=== PATIENT | male | born 1965 | race Caucasian/White ===

== ENCOUNTER 2020-01-24 07:11 | Outpatient (REF) | payer OTHER, SELFPAY ==
[2020-01-24 07:40] LABS: Imm Gran Abs Auto 0.01 X10*3/uL (0.00-0.03); Imm Gran Pct Auto 0.3 % (0.0-0.4); PLT CLUMP 1; Red Blood Count 3.32 X10*6/uL (4.60-5.80); Red Cell Distribution Width 12.4 % (11.0-16.0); SCAN SMEAR FLAG 1
[2020-01-24 07:46] LABS: Prothrombin Time 12.2 SEC (10.8-13.0)
[2020-01-24 07:50] LABS: Basophils Absolute Auto 0.1 X10*3/uL (0.0-0.2); Basophils Percent Auto 1.5 % (0-2); Eosinophils Absolute Auto 0.1 X10*3/uL (0.0-0.4); Eosinophils Percent Auto 2.9 % (0-4); Hematocrit 28.4 % (42-52); Hemoglobin 10.5 g/dl (14.0-18.0); Lymphocytes Absolute Auto 0.7 X10*3/uL (1.2-4.9); Lymphocytes Percent Auto 21.3 % (20-40); Mean Corpuscular Hemoglobin 31.6 pg (27.0-33.0); Mean Corpuscular Volume 85.5 fL (80-98); Mean Platelet Volume 11.8 fL (9.4-12.4); Monocytes Absolute Auto 0.5 X10*3/uL (0.1-1.2); Monocytes Percent Auto 13.1 % (2-11); Neutrophils Absolute Auto 2.1 X10*3/uL (2.0-8.3); Neutrophils Percent Auto 60.9 % (45-73); Platelet Count 132 X10*3/uL (160-400); White Blood Count 3.4 X10*3/uL (4.8-10.8)
[2020-01-24 07:53] LABS: MANUAL DIFF FLAG NO
[2020-01-24 08:09] LABS: Alanine Aminotransferase 33 U/L (0-40); Albumin Level 4.4 g/dL (3.5-5.0); Alkaline Phosphatase 168 U/L (39-117); Anion Gap 11 (12-20); Aspartate Amino Transferase 15 U/L (5-37); Bilirubin Total 0.4 mg/dL (0.0-1.0); Blood Urea Nitrogen 31 mg/dL (9-16); Calcium 9.3 mg/dL (8.4-10.2); Carbon Dioxide 22 mmol/L (22-29); Chloride 109 mmol/L (96-108); Estimated Glomerular Filt Rate 52; Glucose Random 193 mg/dL (60-115); Magnesium 1.6 mg/dL (1.6-2.6); Phosphorus 4.6 mg/dL (2.7-4.5); Potassium 5.8 mmol/l (3.3-5.1); Sodium 136 mmol/L (135-145); Total Protein 6.2 g/dL (6.5-8.0)
[2020-01-25 08:36] LABS: Tacrolimus Prograf 7.9 mcg/L
== END 2020-01-24 07:12 | disposition home or self-care (01) ==
LOC: HO.LABR 07:11
PROVIDERS: PCP Internal Medicine; Visit Provider Internal Medicine
DX: Z94.4 Liver transplant status (principal); Z79.899 Other long term (current) drug therapy
CPT/HCPCS: 36415; 80053; 80197; 83735; 84100; 85025; 85610

== ENCOUNTER 2020-01-31 09:52 | Outpatient (REF) | payer OTHER, SELFPAY ==
[2020-01-31 10:56] LABS: Basophils Percent Auto 0.8 % (0-2); Eosinophils Absolute Auto 0.1 X10*3/uL (0.0-0.4); Eosinophils Percent Auto 1.7 % (0-4); Hematocrit 27.5 % (42-52); Imm Gran Abs Auto 0.01 X10*3/uL (0.00-0.03); Imm Gran Pct Auto 0.3 % (0.0-0.4); Lymphocytes Absolute Auto 0.5 X10*3/uL (1.2-4.9); MANUAL DIFF FLAG SCAN; Mean Corpuscular HGB Conc 36.4 g/dl (31.0-36.0); Mean Corpuscular Hemoglobin 30.9 pg (27.0-33.0); Mean Corpuscular Volume 84.9 fL (80-98); Mean Platelet Volume 11.8 fL (9.4-12.4); Monocytes Absolute Auto 0.2 X10*3/uL (0.1-1.2); Monocytes Percent Auto 5.7 % (2-11); Neutrophils Absolute Auto 2.7 X10*3/uL (2.0-8.3); Neutrophils Percent Auto 76.5 % (45-73); Platelet Count 131 X10*3/uL (160-400); Red Blood Count 3.24 X10*6/uL (4.60-5.80); Red Cell Distribution Width 12.2 % (11.0-16.0); SCAN SMEAR FLAG 1; White Blood Count 3.5 X10*3/uL (4.8-10.8)
[2020-01-31 10:58] LABS: INTERNATIONAL NORM RATIO 1.1 (0.9-1.1)
[2020-01-31 11:28] LABS: SLIDE REVIEW VERIFIED
[2020-01-31 11:30] LABS: Alanine Aminotransferase 55 U/L (0-40); Albumin Level 4.3 g/dL (3.5-5.0); Alkaline Phosphatase 171 U/L (39-117); Anion Gap 12 (12-20); Aspartate Amino Transferase 15 U/L (5-37); Bilirubin Total 0.4 mg/dL (0.0-1.0); Blood Urea Nitrogen 35 mg/dL (9-16); Calcium 9.1 mg/dL (8.4-10.2); Carbon Dioxide 21 mmol/L (22-29); Chloride 108 mmol/L (96-108); Estimated Glomerular Filt Rate 39; Glucose Random 342 mg/dL (60-115); Magnesium 1.4 mg/dL (1.6-2.6); Phosphorus 4.5 mg/dL (2.7-4.5); Potassium 4.9 mmol/l (3.3-5.1); Sodium 136 mmol/L (135-145)
[2020-02-01 03:41] LABS: Tacrolimus Prograf 6.9 mcg/L
== END 2020-01-31 09:53 | disposition home or self-care (01) ==
LOC: HO.LABR 09:52
PROVIDERS: PCP Internal Medicine; Visit Provider Internal Medicine
DX: Z94.4 Liver transplant status (principal); Z79.899 Other long term (current) drug therapy
CPT/HCPCS: 36415; 80053; 80197; 83735; 84100; 85025; 85610

== ENCOUNTER 2020-01-31 10:24 | Emergency (ER) | payer OTHER, SELFPAY ==
--- NOTE | 2020-01-31 10:46 | ED_ITS ---
HPI - Back Pain/Injury General Chief Complaint: Back Pain/Injury Stated Complaint: back and leg pain Time Seen by Provider: 01/31/20 10:45 Source: patient Mode of arrival: ambulatory Limitations: no limitations History of Present Illness HPI Narrative: 55 y/o male here with acute on chronic low back pain. No traumatic injury. Pain has been worse at night and preventing him from getting a good night's sleep. He reports the pain shoots down his buttocks and legs. He denies incontinence, inguinal paresthesias, IVDA, fever, chills or other red flag symptoms of LBP. Able to ambulate short distances but uses motorized scooter at baseline due to chronic LE pain. MD elicited complaint: back pain Pertinent past history: prior back pain Onset (ago): month(s) (1.5 months ) Timing: constant Severity: severe Similar Symptoms Previously: Yes Quality: aching Location: lumbar spine Radiation: buttocks, left upper leg and right upper leg Exacerbating factors: movement Relieving factors: none Associated symptoms: myalgias Work related injury: No Related Data Previous Rx's Medication Instructions Recorded oxycodone 5 mg PO Q8H PRN #10 tab NS 01/31/20 Allergies Allergy/AdvReac Type Severity Reaction Status Date / Time No Known Allergies Allergy Verified 01/31/20 10:59 [No Known Allergies*] Review of Systems Review of Systems: Appearance: Alert. Oriented X3. No acute distress. HEENT: normal inspection CVS: Normal heart rate and rhythm. Pulses normal. Respiratory: No respiratory distress. Skin: Skin warm and dry. Normal skin color. Normal skin turgor. No rashes. MS: +muscle pain, + back pain : no dysuria, no hematuria Extremities: no LE edema. normal reflexes Neuro: Oriented X 3. No motor deficit. No sensory deficit. [facility] Past Medical History Medical History (Updated 01/31/20 @ 11:48 by KRISTIN Ch) No known health problems Social History Social History Alcohol intake: unknown Smoking Status: Unknown if ever smoked Advance Directives: No Advance Directives Information Provided: Yes Physical Exam Vital Signs: Vital Signs: Vital Signs Temp Pulse Resp BP Pulse Ox 01/31/20 10:55 97.0 F 75 16 121/77 100 Body Mass Index 28.6 Appearance: Alert. Oriented X3. No acute distress. HEENT: normal inspection Neck: Normal inspection. Neck supple. CVS: Normal heart rate and rhythm. Pulses normal. Respiratory: No respiratory distress. Breath sounds normal. Skin: Skin warm and dry. Normal skin color. Normal skin turgor. No rashes. Back: normal inspection. no spinal tenderness. paraspinal tenderness of bilateral lower lumar spine area. full ROM. Neuro: Oriented X 3. No motor deficit. No sensory deficit. Course Course Course Narrative: XR: Mild degenerative changes mid to lower lumbar spine. No vertebral compression, spondylolisthesis, or significant disc narrowing. patient was previously on tramadol for back pain but it made him forgetful. he has tolerated oxycodone in the past. will give Rx for low dose and have him follow back up with his PCP. Discharge Plan Discharge Clinical Impression: Lumbar radiculopathy Patient Disposition: Home, Self-Care Instructions: Lumbar Radiculopathy (ED) Additional Instructions: Limit lifting, bending, twisting. Use ice and/or heat to the area several times per day. You need to follow back up with your PCP for further testing and imaging. Since you did not like the way Tramadol made you feel but have tolerated Oxycodone in the past, will give you a short course of this for acute pain. STOP taking Tramadol while you are taking Oxycodone. Prescriptions: New oxycodone 5 mg tablet 5 mg PO Q8H PRN (Reason: pain) Qty: 10 RF: 0 Referrals: Wilfred Potts MD [Physician] - 2 days (lumbar radiculopathy ) Print Language: Estonian
[2020-01-31 10:55] VITALS: BP 121/77; PULSE 75; RESP 16; TEMP 36.1; O2SAT 100; BMI 28.6
--- NOTE | 2020-01-31 11:00 | XR_ITS ---
EXAMINATION: XR LUMBOSACRAL SPINE CLINICAL INFORMATION: Low back pain COMPARISON: CT abdomen and pelvis 07/12/2019 TECHNIQUE: Three views of the lumbosacral spine. FINDINGS: There is normal lumbar segmentation with 5 nonrib-bearing lumbar vertebrae of normal height and normal lumbar lordosis. There is no lumbar vertebral compression, spondylolisthesis, destructive process. There is some minor degenerative changes with borderline vertebral body spurring L2-L5 and some mild endplate sclerosis 3-L4 and L4-L5. No significant disc narrowing. The SI joints and visualized sacrum are unremarkable. There are surgical clips upper abdomen. There is a wire overlying overlying the upper abdomen. Bowel gas is unremarkable. IMPRESSION: Mild degenerative changes mid to lower lumbar spine. No vertebral compression, spondylolisthesis, or significant disc narrowing.
== END 2020-01-31 11:53 | disposition home or self-care (01) ==
PROVIDERS: Emergency Provider Emergency Medicine; PCP Internal Medicine
DX: M54.16 Radiculopathy, lumbar region (principal)
CPT/HCPCS: 72100; 99283

== ENCOUNTER 2020-02-07 08:01 | Outpatient (REF) | payer OTHER, SELFPAY ==
[2020-02-07 08:43] LABS: MANUAL DIFF FLAG SCAN; PLT CLUMP 1; SCAN SMEAR FLAG 1
[2020-02-07 08:45] LABS: Basophils Percent Auto 0.9 % (0-2); Eosinophils Absolute Auto 0.1 X10*3/uL (0.0-0.4); Eosinophils Percent Auto 2.5 % (0-4); Hematocrit 25.7 % (42-52); Hemoglobin 9.1 g/dl (14.0-18.0); Imm Gran Abs Auto 0.02 X10*3/uL (0.00-0.03); Imm Gran Pct Auto 0.5 % (0.0-0.4); Lymphocytes Absolute Auto 0.6 X10*3/uL (1.2-4.9); Lymphocytes Percent Auto 13.8 % (20-40); Mean Corpuscular HGB Conc 35.4 g/dl (31.0-36.0); Mean Corpuscular Hemoglobin 30.5 pg (27.0-33.0); Mean Corpuscular Volume 86.2 fL (80-98); Mean Platelet Volume 11.1 fL (9.4-12.4); Monocytes Absolute Auto 0.3 X10*3/uL (0.1-1.2); Monocytes Percent Auto 7.1 % (2-11); Neutrophils Absolute Auto 3.3 X10*3/uL (2.0-8.3); Neutrophils Percent Auto 75.2 % (45-73); Platelet Count 110 X10*3/uL (160-400); Red Blood Count 2.98 X10*6/uL (4.60-5.80); Red Cell Distribution Width 12.3 % (11.0-16.0); White Blood Count 4.4 X10*3/uL (4.8-10.8)
[2020-02-07 08:56] LABS: INTERNATIONAL NORM RATIO 1.1 (0.9-1.1); Prothrombin Time 12.8 SEC (10.8-13.0)
[2020-02-07 09:08] LABS: Alanine Aminotransferase 73 U/L (0-40); Albumin Level 4.1 g/dL (3.5-5.0); Alkaline Phosphatase 241 U/L (39-117); Anion Gap 10 (12-20); Aspartate Amino Transferase 21 U/L (5-37); Bilirubin Total 0.5 mg/dL (0.0-1.0); Blood Urea Nitrogen 27 mg/dL (9-16); Calcium 8.8 mg/dL (8.4-10.2); Carbon Dioxide 24 mmol/L (22-29); Chloride 108 mmol/L (96-108); Estimated Glomerular Filt Rate 48; Glucose Random 209 mg/dL (60-115); Phosphorus 3.9 mg/dL (2.7-4.5); Potassium 5.1 mmol/l (3.3-5.1); Sodium 137 mmol/L (135-145); Total Protein 5.8 g/dL (6.5-8.0)
[2020-02-07 09:15] LABS: SLIDE REVIEW VERIFIED
[2020-02-07 09:19] LABS: Magnesium 1.5 mg/dL (1.6-2.6)
[2020-02-08 07:42] LABS: Tacrolimus Prograf 4.8 mcg/L
== END 2020-02-07 08:02 | disposition home or self-care (01) ==
LOC: HO.LABR 08:01
PROVIDERS: PCP Internal Medicine; Visit Provider Internal Medicine
DX: Z79.899 Other long term (current) drug therapy (principal); Z94.4 Liver transplant status
CPT/HCPCS: 36415; 80053; 80197; 83735; 84100; 85025; 85610

== ENCOUNTER 2020-02-14 06:22 | Outpatient (REF) | payer OTHER, SELFPAY ==
[2020-02-14 07:05] LABS: Basophils Percent Auto 0.8 % (0-2); Hematocrit 25.4 % (42-52); MANUAL DIFF FLAG SCAN; Mean Corpuscular Volume 84.4 fL (80-98); PLT CLUMP 1; Red Blood Count 3.01 X10*6/uL (4.60-5.80); Red Cell Distribution Width 12.2 % (11.0-16.0); SCAN SMEAR FLAG 1
[2020-02-14 07:08] LABS: Eosinophils Absolute Auto 0.1 X10*3/uL (0.0-0.4); Eosinophils Percent Auto 1.6 % (0-4); Hemoglobin 9.2 g/dl (14.0-18.0); Imm Gran Abs Auto 0.02 X10*3/uL (0.00-0.03); Imm Gran Pct Auto 0.5 % (0.0-0.4); Lymphocytes Absolute Auto 0.7 X10*3/uL (1.2-4.9); Lymphocytes Percent Auto 17.6 % (20-40); Mean Corpuscular HGB Conc 36.2 g/dl (31.0-36.0); Mean Corpuscular Hemoglobin 30.6 pg (27.0-33.0); Monocytes Absolute Auto 0.2 X10*3/uL (0.1-1.2); Monocytes Percent Auto 5.7 % (2-11); Neutrophils Absolute Auto 2.7 X10*3/uL (2.0-8.3); Neutrophils Percent Auto 73.8 % (45-73); Platelet Count 127 X10*3/uL (160-400); White Blood Count 3.7 X10*3/uL (4.8-10.8)
[2020-02-14 07:22] LABS: Alanine Aminotransferase 19 U/L (0-40); Albumin Level 4.1 g/dL (3.5-5.0); Alkaline Phosphatase 151 U/L (39-117); Anion Gap 12 (12-20); Aspartate Amino Transferase 12 U/L (5-37); Bilirubin Total 0.5 mg/dL (0.0-1.0); Blood Urea Nitrogen 29 mg/dL (9-16); Calcium 9.1 mg/dL (8.4-10.2); Carbon Dioxide 22 mmol/L (22-29); Chloride 108 mmol/L (96-108); Estimated Glomerular Filt Rate 39; Glucose Random 218 mg/dL (60-115); Magnesium 1.6 mg/dL (1.6-2.6); Phosphorus 4.1 mg/dL (2.7-4.5); Potassium 5.5 mmol/l (3.3-5.1); Sodium 136 mmol/L (135-145); Total Protein 5.8 g/dL (6.5-8.0)
[2020-02-14 08:47] LABS: SLIDE REVIEW VERIFIED
[2020-02-15 18:16] LABS: Tacrolimus Prograf 9.4 mcg/L
== END 2020-02-14 06:23 | disposition home or self-care (01) ==
LOC: HO.LABR 06:22
PROVIDERS: PCP Internal Medicine; Visit Provider Internal Medicine
DX: Z79.899 Other long term (current) drug therapy (principal); Z94.4 Liver transplant status
CPT/HCPCS: 36415; 80053; 80197; 83735; 84100; 85025

== ENCOUNTER 2020-02-15 07:44 | Outpatient (REF) | payer OTHER, SELFPAY ==
[2020-02-15 09:01] LABS: INTERNATIONAL NORM RATIO 1.1 (0.9-1.1); Prothrombin Time 12.7 SEC (10.8-13.0)
== END 2020-02-15 07:45 | disposition home or self-care (01) ==
LOC: HO.LABR 07:44
PROVIDERS: PCP Internal Medicine; Visit Provider Internal Medicine
DX: Z79.899 Other long term (current) drug therapy (principal); Z94.4 Liver transplant status
CPT/HCPCS: 36415; 85610

== ENCOUNTER 2020-02-21 05:59 | Outpatient (REF) | payer OTHER, SELFPAY ==
[2020-02-21 06:22] LABS: Basophils Percent Auto 0.8 % (0-2); Hemoglobin 9.6 g/dl (14.0-18.0); Imm Gran Abs Auto 0.01 X10*3/uL (0.00-0.03); Imm Gran Pct Auto 0.3 % (0.0-0.4); MANUAL DIFF FLAG SCAN; Monocytes Absolute Auto 0.2 X10*3/uL (0.1-1.2); Monocytes Percent Auto 5.3 % (2-11); PLT CLUMP 1; SCAN SMEAR FLAG 1
[2020-02-21 06:24] LABS: Eosinophils Absolute Auto 0.1 X10*3/uL (0.0-0.4); Eosinophils Percent Auto 1.4 % (0-4); Lymphocytes Absolute Auto 0.6 X10*3/uL (1.2-4.9); Lymphocytes Percent Auto 17.5 % (20-40); Mean Corpuscular HGB Conc 35.6 g/dl (31.0-36.0); Mean Corpuscular Hemoglobin 30.4 pg (27.0-33.0); Mean Corpuscular Volume 85.4 fL (80-98); Mean Platelet Volume 11.4 fL (9.4-12.4); Neutrophils Absolute Auto 2.7 X10*3/uL (2.0-8.3); Neutrophils Percent Auto 74.7 % (45-73); Platelet Count 117 X10*3/uL (160-400); Red Blood Count 3.16 X10*6/uL (4.60-5.80); Red Cell Distribution Width 12.5 % (11.0-16.0); White Blood Count 3.6 X10*3/uL (4.8-10.8)
[2020-02-21 06:50] LABS: SLIDE REVIEW VERIFIED
[2020-02-21 07:06] LABS: INTERNATIONAL NORM RATIO 1.1 (0.9-1.1); Prothrombin Time 13.3 SEC (10.8-13.0)
[2020-02-21 07:44] LABS: Alanine Aminotransferase 14 U/L (0-40); Albumin Level 4.4 g/dL (3.5-5.0); Alkaline Phosphatase 118 U/L (39-117); Anion Gap 13 (12-20); Aspartate Amino Transferase 12 U/L (5-37); Bilirubin Total 0.5 mg/dL (0.0-1.0); Blood Urea Nitrogen 34 mg/dL (9-16); Calcium 8.9 mg/dL (8.4-10.2); Carbon Dioxide 20 mmol/L (22-29); Chloride 111 mmol/L (96-108); Estimated Glomerular Filt Rate 41; Glucose Random 193 mg/dL (60-115); Magnesium 1.6 mg/dL (1.6-2.6); Phosphorus 4.5 mg/dL (2.7-4.5); Sodium 138 mmol/L (135-145); Total Protein 6.2 g/dL (6.5-8.0)
[2020-02-22 08:12] LABS: Tacrolimus Prograf 8.9 mcg/L
== END 2020-02-21 06:00 | disposition home or self-care (01) ==
LOC: HO.LABR 05:59
PROVIDERS: PCP Internal Medicine; Visit Provider Internal Medicine
DX: Z94.4 Liver transplant status (principal); Z79.899 Other long term (current) drug therapy
CPT/HCPCS: 36415; 80053; 80197; 83735; 84100; 85025; 85610

== ENCOUNTER 2020-02-28 06:02 | Outpatient (REF) | payer OTHER, SELFPAY ==
[2020-02-28 07:14] LABS: Basophils Percent Auto 0.7 % (0-2); Eosinophils Percent Auto 0.9 % (0-4); Hematocrit 26.3 % (42-52); Hemoglobin 9.2 g/dl (14.0-18.0); Imm Gran Abs Auto 0.02 X10*3/uL (0.00-0.03); Imm Gran Pct Auto 0.4 % (0.0-0.4); Lymphocytes Absolute Auto 0.7 X10*3/uL (1.2-4.9); Lymphocytes Percent Auto 14.6 % (20-40); MANUAL DIFF FLAG SCAN; Mean Corpuscular Hemoglobin 30.3 pg (27.0-33.0); Mean Corpuscular Volume 86.5 fL (80-98); Mean Platelet Volume 10.7 fL (9.4-12.4); Monocytes Absolute Auto 0.2 X10*3/uL (0.1-1.2); Monocytes Percent Auto 5.2 % (2-11); Neutrophils Absolute Auto 3.5 X10*3/uL (2.0-8.3); Neutrophils Percent Auto 78.2 % (45-73); Platelet Count 119 X10*3/uL (160-400); Red Blood Count 3.04 X10*6/uL (4.60-5.80); Red Cell Distribution Width 12.8 % (11.0-16.0); SCAN SMEAR FLAG 1; White Blood Count 4.5 X10*3/uL (4.8-10.8)
[2020-02-28 07:35] LABS: Alanine Aminotransferase 37 U/L (0-40); Albumin Level 4.2 g/dL (3.5-5.0); Alkaline Phosphatase 136 U/L (39-117); Anion Gap 11 (12-20); Aspartate Amino Transferase 13 U/L (5-37); Bilirubin Total 0.4 mg/dL (0.0-1.0); Blood Urea Nitrogen 28 mg/dL (9-16); Calcium 9.1 mg/dL (8.4-10.2); Carbon Dioxide 22 mmol/L (22-29); Chloride 108 mmol/L (96-108); Estimated Glomerular Filt Rate 52; Glucose Random 156 mg/dL (60-115); Magnesium 1.5 mg/dL (1.6-2.6); Phosphorus 4.5 mg/dL (2.7-4.5); Potassium 5.2 mmol/l (3.3-5.1); Sodium 136 mmol/L (135-145); Total Protein 5.9 g/dL (6.5-8.0)
[2020-02-28 07:54] LABS: SLIDE REVIEW VERIFIED
[2020-02-29 07:22] LABS: Tacrolimus Prograf 6.7 mcg/L
[2020-02-29 18:12] LABS: Cytomegalovirus Ab IgM <30.00 AU/mL
== END 2020-02-28 06:03 | disposition home or self-care (01) ==
LOC: HO.LABR 06:02
PROVIDERS: PCP Internal Medicine; Visit Provider Internal Medicine
DX: Z94.4 Liver transplant status (principal); Z79.899 Other long term (current) drug therapy
CPT/HCPCS: 36415; 80053; 80197; 83735; 84100; 85025; 86644; 86645

== ENCOUNTER 2020-03-13 07:29 | Outpatient (REF) | payer OTHER, SELFPAY ==
[2020-03-13 08:28] LABS: MANUAL DIFF FLAG NO
[2020-03-13 08:37] LABS: Basophils Percent Auto 0.8 % (0-2); Eosinophils Absolute Auto 0.1 X10*3/uL (0.0-0.4); Eosinophils Percent Auto 1.5 % (0-4); Hematocrit 27.3 % (42-52); Hemoglobin 9.8 g/dl (14.0-18.0); Imm Gran Abs Auto 0.02 X10*3/uL (0.00-0.03); Imm Gran Pct Auto 0.5 % (0.0-0.4); Lymphocytes Absolute Auto 0.7 X10*3/uL (1.2-4.9); Lymphocytes Percent Auto 19.1 % (20-40); Mean Corpuscular HGB Conc 35.9 g/dl (31.0-36.0); Mean Corpuscular Hemoglobin 30.5 pg (27.0-33.0); Monocytes Absolute Auto 0.5 X10*3/uL (0.1-1.2); Monocytes Percent Auto 12.4 % (2-11); Neutrophils Absolute Auto 2.6 X10*3/uL (2.0-8.3); Neutrophils Percent Auto 65.7 % (45-73); Platelet Count 126 X10*3/uL (160-400); Red Blood Count 3.21 X10*6/uL (4.60-5.80); Red Cell Distribution Width 12.7 % (11.0-16.0); White Blood Count 3.9 X10*3/uL (4.8-10.8)
[2020-03-13 08:49] LABS: Alanine Aminotransferase 34 U/L (0-40); Albumin Level 4.3 g/dL (3.5-5.0); Alkaline Phosphatase 150 U/L (39-117); Anion Gap 11 (12-20); Aspartate Amino Transferase 18 U/L (5-37); Bilirubin Total 0.5 mg/dL (0.0-1.0); Blood Urea Nitrogen 25 mg/dL (9-16); Calcium 9.3 mg/dL (8.4-10.2); Carbon Dioxide 22 mmol/L (22-29); Chloride 111 mmol/L (96-108); Estimated Glomerular Filt Rate > 60; Glucose Fasting 151 mg/dL (60-99); Magnesium 1.5 mg/dL (1.6-2.6); Phosphorus 3.7 mg/dL (2.7-4.5); Potassium 5.1 mmol/l (3.3-5.1); Sodium 139 mmol/L (135-145); Total Protein 6.1 g/dL (6.5-8.0)
[2020-03-14 06:36] LABS: Tacrolimus Prograf 4.5 mcg/L
[2020-03-17 11:17] LABS: CMV DNA PCR Qn Source Whole Blood; CMV DNA Qn PCR <2.30 log IU/mL (<2.30); CMV DNA Qn Real Time PCR <200 IU/mL (<200)
== END 2020-03-13 07:30 | disposition home or self-care (01) ==
LOC: HO.LABR 07:29
PROVIDERS: Visit Provider Internal Medicine
DX: Z94.4 Liver transplant status (principal)
CPT/HCPCS: 36415; 80053; 80197; 83735; 84100; 85025; 87497

== ENCOUNTER 2020-03-26 06:49 | Outpatient (REF) | payer OTHER, SELFPAY ==
[2020-03-26 07:57] LABS: Basophils Percent Auto 0.7 % (0-2); Lymphocytes Absolute Auto 0.6 X10*3/uL (1.2-4.9); MANUAL DIFF FLAG SCAN; PLT CLUMP 1; SCAN SMEAR FLAG 1
[2020-03-26 07:59] LABS: Eosinophils Absolute Auto 0.1 X10*3/uL (0.0-0.4); Eosinophils Percent Auto 2.3 % (0-4); Hematocrit 26.6 % (42-52); Hemoglobin 9.5 g/dl (14.0-18.0); Imm Gran Abs Auto 0.01 X10*3/uL (0.00-0.03); Imm Gran Pct Auto 0.2 % (0.0-0.4); Lymphocytes Percent Auto 13.3 % (20-40); Mean Corpuscular HGB Conc 35.7 g/dl (31.0-36.0); Mean Corpuscular Hemoglobin 30.6 pg (27.0-33.0); Mean Corpuscular Volume 85.8 fL (80-98); Mean Platelet Volume 12.4 fL (9.4-12.4); Monocytes Absolute Auto 0.5 X10*3/uL (0.1-1.2); Monocytes Percent Auto 12.1 % (2-11); Neutrophils Absolute Auto 3.1 X10*3/uL (2.0-8.3); Neutrophils Percent Auto 71.4 % (45-73); Platelet Count 113 X10*3/uL (160-400); Red Cell Distribution Width 11.6 % (11.0-16.0); White Blood Count 4.3 X10*3/uL (4.8-10.8)
[2020-03-26 08:24] LABS: SLIDE REVIEW VERIFIED
[2020-03-26 09:34] LABS: Alanine Aminotransferase 227 U/L (0-40); Albumin Level 4.1 g/dL (3.5-5.0); Alkaline Phosphatase 627 U/L (39-117); Anion Gap 14 (12-20); Aspartate Amino Transferase 53 U/L (5-37); Bilirubin Total 0.7 mg/dL (0.0-1.0); Blood Urea Nitrogen 37 mg/dL (9-16); Calcium 9.1 mg/dL (8.4-10.2); Carbon Dioxide 20 mmol/L (22-29); Chloride 109 mmol/L (96-108); Estimated Glomerular Filt Rate 54; Glucose Fasting 164 mg/dL (60-99); Phosphorus 4.1 mg/dL (2.7-4.5); Potassium 5.4 mmol/l (3.3-5.1); Sodium 138 mmol/L (135-145); Total Protein 6.1 g/dL (6.5-8.0)
[2020-03-26 10:00] LABS: Magnesium 1.3 mg/dL (1.6-2.6)
[2020-03-27 11:18] LABS: Tacrolimus Prograf 5.8 mcg/L
[2020-03-27 22:14] LABS: Cytomegalovirus Ab IgM <30.00 AU/mL
== END 2020-03-26 06:50 | disposition home or self-care (01) ==
LOC: HO.LAB 06:49
PROVIDERS: PCP Internal Medicine; Visit Provider Internal Medicine
DX: Z94.4 Liver transplant status (principal)
CPT/HCPCS: 36415; 80053; 80197; 83735; 84100; 85025; 86644; 86645

== ENCOUNTER 2020-03-29 06:06 | Outpatient (REF) | payer OTHER, SELFPAY ==
[2020-03-29 07:24] LABS: Basophils Percent Auto 0.8 % (0-2); Eosinophils Absolute Auto 0.2 X10*3/uL (0.0-0.4); Eosinophils Percent Auto 3.9 % (0-4); Hematocrit 26.9 % (42-52); Hemoglobin 9.4 g/dl (14.0-18.0); Imm Gran Abs Auto 0.04 X10*3/uL (0.00-0.03); Lymphocytes Absolute Auto 0.7 X10*3/uL (1.2-4.9); Lymphocytes Percent Auto 17.1 % (20-40); MANUAL DIFF FLAG SCAN; Mean Corpuscular HGB Conc 34.9 g/dl (31.0-36.0); Mean Corpuscular Hemoglobin 29.7 pg (27.0-33.0); Mean Corpuscular Volume 84.9 fL (80-98); Mean Platelet Volume 11.4 fL (9.4-12.4); Monocytes Absolute Auto 0.6 X10*3/uL (0.1-1.2); Monocytes Percent Auto 15.2 % (2-11); Neutrophils Absolute Auto 2.4 X10*3/uL (2.0-8.3); Platelet Count 143 X10*3/uL (160-400); Red Blood Count 3.17 X10*6/uL (4.60-5.80); Red Cell Distribution Width 11.5 % (11.0-16.0); SCAN SMEAR FLAG 1; White Blood Count 3.9 X10*3/uL (4.8-10.8)
[2020-03-29 08:44] LABS: SLIDE REVIEW VERIFIED
[2020-03-29 09:04] LABS: Alanine Aminotransferase 101 U/L (0-40); Albumin Level 4.2 g/dL (3.5-5.0); Alkaline Phosphatase 442 U/L (39-117); Anion Gap 12 (12-20); Aspartate Amino Transferase 21 U/L (5-37); Bilirubin Total 0.2 mg/dL (0.0-1.0); Blood Urea Nitrogen 26 mg/dL (9-16); Calcium 9.2 mg/dL (8.4-10.2); Carbon Dioxide 23 mmol/L (22-29); Chloride 108 mmol/L (96-108); Estimated Glomerular Filt Rate > 60; Glucose Fasting 207 mg/dL (60-99); Magnesium 1.4 mg/dL (1.6-2.6); Phosphorus 3.7 mg/dL (2.7-4.5); Potassium 5.4 mmol/l (3.3-5.1); Sodium 138 mmol/L (135-145); Total Protein 6.3 g/dL (6.5-8.0)
[2020-03-30 08:22] LABS: Tacrolimus Prograf 5.6 mcg/L
[2020-03-30 09:58] LABS: Cytomegalovirus Ab IgM <30.00 AU/mL
== END 2020-03-29 06:07 | disposition home or self-care (01) ==
LOC: HO.LABR 06:06
PROVIDERS: PCP Internal Medicine; Visit Provider Internal Medicine
DX: Z94.4 Liver transplant status (principal)
CPT/HCPCS: 36415; 80053; 80197; 83735; 84100; 85025; 86644; 86645

== ENCOUNTER 2020-04-10 06:15 | Outpatient (REF) | payer OTHER, SELFPAY ==
[2020-04-10 07:12] LABS: Basophils Percent Auto 0.6 % (0-2); Eosinophils Absolute Auto 0.1 X10*3/uL (0.0-0.4); Eosinophils Percent Auto 4.4 % (0-4); Hematocrit 26.2 % (42-52); Imm Gran Abs Auto 0.01 X10*3/uL (0.00-0.03); Imm Gran Pct Auto 0.3 % (0.0-0.4); Lymphocytes Absolute Auto 0.6 X10*3/uL (1.2-4.9); Lymphocytes Percent Auto 18.6 % (20-40); MANUAL DIFF FLAG SCAN; Mean Corpuscular HGB Conc 34.4 g/dl (31.0-36.0); Mean Corpuscular Hemoglobin 29.4 pg (27.0-33.0); Mean Corpuscular Volume 85.6 fL (80-98); Mean Platelet Volume 12.1 fL (9.4-12.4); Monocytes Absolute Auto 0.6 X10*3/uL (0.1-1.2); Neutrophils Absolute Auto 1.8 X10*3/uL (2.0-8.3); Neutrophils Percent Auto 58.1 % (45-73); Platelet Count 109 X10*3/uL (160-400); Red Blood Count 3.06 X10*6/uL (4.60-5.80); Red Cell Distribution Width 12.6 % (11.0-16.0); SCAN SMEAR FLAG 1; White Blood Count 3.2 X10*3/uL (4.8-10.8)
[2020-04-10 08:00] LABS: SLIDE REVIEW VERIFIED
[2020-04-10 09:22] LABS: Alanine Aminotransferase 28 U/L (0-40); Albumin Level 3.9 g/dL (3.5-5.0); Alkaline Phosphatase 218 U/L (39-117); Anion Gap 10 (12-20); Aspartate Amino Transferase 18 U/L (5-37); Bilirubin Total 0.5 mg/dL (0.0-1.0); Blood Urea Nitrogen 41 mg/dL (9-16); Carbon Dioxide 22 mmol/L (22-29); Chloride 110 mmol/L (96-108); Estimated Glomerular Filt Rate 34; Glucose Random 208 mg/dL (60-115); Phosphorus 4.2 mg/dL (2.7-4.5); Sodium 136 mmol/L (135-145); Total Protein 5.7 g/dL (6.5-8.0)
[2020-04-10 09:32] LABS: Magnesium 1.4 mg/dL (1.6-2.6)
[2020-04-11 11:07] LABS: Tacrolimus Prograf 6.7 mcg/L
[2020-04-13 12:11] LABS: CMV DNA PCR Qn Source Whole Blood; CMV DNA Qn PCR <2.30 log IU/mL (<2.30); CMV DNA Qn Real Time PCR <200 IU/mL (<200)
== END 2020-04-10 06:16 | disposition home or self-care (01) ==
LOC: HO.LABR 06:15
PROVIDERS: PCP Internal Medicine; Visit Provider Internal Medicine
DX: Z94.4 Liver transplant status (principal)
CPT/HCPCS: 36415; 80053; 80197; 83735; 84100; 85025; 87497

== ENCOUNTER 2020-04-17 06:43 | Outpatient (REF) | payer OTHER, SELFPAY ==
[2020-04-17 08:15] LABS: Basophils Percent Auto 0.4 % (0-2); Eosinophils Absolute Auto 0.1 X10*3/uL (0.0-0.4); Eosinophils Percent Auto 2.6 % (0-4); Hematocrit 24.9 % (42-52); Hemoglobin 8.8 g/dl (14.0-18.0); Imm Gran Abs Auto 0.01 X10*3/uL (0.00-0.03); Imm Gran Pct Auto 0.4 % (0.0-0.4); Lymphocytes Absolute Auto 0.5 X10*3/uL (1.2-4.9); Lymphocytes Percent Auto 19.7 % (20-40); MANUAL DIFF FLAG SCAN; Mean Corpuscular HGB Conc 35.3 g/dl (31.0-36.0); Mean Platelet Volume 11.7 fL (9.4-12.4); Monocytes Absolute Auto 0.4 X10*3/uL (0.1-1.2); Neutrophils Absolute Auto 1.6 X10*3/uL (2.0-8.3); Neutrophils Percent Auto 60.9 % (45-73); Red Blood Count 2.93 X10*6/uL (4.60-5.80); Red Cell Distribution Width 12.4 % (11.0-16.0); SCAN SMEAR FLAG 1; White Blood Count 2.7 X10*3/uL (4.8-10.8)
[2020-04-17 08:16] LABS: Platelet Count 96 X10*3/uL (160-400)
[2020-04-17 08:47] LABS: Alanine Aminotransferase 27 U/L (0-40); Albumin Level 4.2 g/dL (3.5-5.0); Alkaline Phosphatase 180 U/L (39-117); Anion Gap 13 (12-20); Aspartate Amino Transferase 21 U/L (5-37); Bilirubin Total 0.5 mg/dL (0.0-1.0); Blood Urea Nitrogen 39 mg/dL (9-16); Calcium 8.7 mg/dL (8.4-10.2); Carbon Dioxide 17 mmol/L (22-29); Chloride 112 mmol/L (96-108); Estimated Glomerular Filt Rate 36; Glucose Random 200 mg/dL (60-115); Phosphorus 3.9 mg/dL (2.7-4.5); Potassium 5.8 mmol/l (3.3-5.1); Sodium 136 mmol/L (135-145); Total Protein 6.1 g/dL (6.5-8.0)
[2020-04-17 08:52] LABS: SLIDE REVIEW VERIFIED
[2020-04-17 09:15] LABS: Magnesium 1.3 mg/dL (1.6-2.6)
[2020-04-18 08:47] LABS: Tacrolimus Prograf 13.4 mcg/L
[2020-04-20 01:38] LABS: CMV DNA PCR Qn Source Whole Blood; CMV DNA Qn PCR 3.43 log IU/mL (<2.30)
[2020-04-20 15:03] LABS: CMV DNA Qn Real Time PCR 2670
== END 2020-04-17 06:44 | disposition home or self-care (01) ==
LOC: HO.LABR 06:43
PROVIDERS: PCP Internal Medicine; Visit Provider Internal Medicine
DX: Z94.4 Liver transplant status (principal); Z79.899 Other long term (current) drug therapy
CPT/HCPCS: 36415; 80053; 80197; 83735; 84100; 85025; 87497

== ENCOUNTER 2020-04-24 06:12 | Outpatient (REF) | payer OTHER, SELFPAY ==
[2020-04-24 07:22] LABS: Basophils Percent Auto 0.4 % (0-2); Eosinophils Absolute Auto 0.1 X10*3/uL (0.0-0.4); Hematocrit 25.8 % (42-52); Imm Gran Abs Auto 0.01 X10*3/uL (0.00-0.03); Imm Gran Pct Auto 0.4 % (0.0-0.4); Lymphocytes Absolute Auto 0.7 X10*3/uL (1.2-4.9); Lymphocytes Percent Auto 28.5 % (20-40); MANUAL DIFF FLAG SCAN; Mean Corpuscular HGB Conc 34.9 g/dl (31.0-36.0); Mean Corpuscular Hemoglobin 29.7 pg (27.0-33.0); Mean Corpuscular Volume 85.1 fL (80-98); Monocytes Absolute Auto 0.4 X10*3/uL (0.1-1.2); Monocytes Percent Auto 14.6 % (2-11); Neutrophils Absolute Auto 1.3 X10*3/uL (2.0-8.3); Neutrophils Percent Auto 54.1 % (45-73); Red Blood Count 3.03 X10*6/uL (4.60-5.80); Red Cell Distribution Width 12.9 % (11.0-16.0); SCAN SMEAR FLAG 1
[2020-04-24 07:34] LABS: Platelet Count 99 X10*3/uL (160-400); White Blood Count 2.5 X10*3/uL (4.8-10.8)
[2020-04-24 07:41] LABS: Alanine Aminotransferase 37 U/L (0-40); Albumin Level 4.2 g/dL (3.5-5.0); Alkaline Phosphatase 181 U/L (39-117); Anion Gap 10 (12-20); Aspartate Amino Transferase 24 U/L (5-37); Bilirubin Total 0.3 mg/dL (0.0-1.0); Blood Urea Nitrogen 28 mg/dL (9-16); Calcium 8.8 mg/dL (8.4-10.2); Carbon Dioxide 22 mmol/L (22-29); Chloride 112 mmol/L (96-108); Estimated Glomerular Filt Rate 52; Glucose Random 167 mg/dL (60-115); Magnesium 1.7 mg/dL (1.6-2.6); Phosphorus 3.8 mg/dL (2.7-4.5); Sodium 139 mmol/L (135-145); Total Protein 6.1 g/dL (6.5-8.0)
[2020-04-24 08:22] LABS: SLIDE REVIEW VERIFIED
[2020-04-25 08:48] LABS: Cytomegalovirus Ab IgM <30.00 AU/mL
[2020-04-25 11:00] LABS: Tacrolimus Prograf 5.7 mcg/L
== END 2020-04-24 06:13 | disposition home or self-care (01) ==
LOC: HO.LABR 06:12
PROVIDERS: PCP Internal Medicine; Visit Provider Internal Medicine
DX: Z94.4 Liver transplant status (principal)
CPT/HCPCS: 36415; 80053; 80197; 83735; 84100; 85025; 86644; 86645

== ENCOUNTER 2020-05-01 05:59 | Outpatient (REF) | payer OTHER, SELFPAY ==
[2020-05-01 07:34] LABS: Basophils Percent Auto 0.3 % (0-2); Hemoglobin 9.4 g/dl (14.0-18.0); MANUAL DIFF FLAG SCAN; PLT CLUMP 1; SCAN SMEAR FLAG 1
[2020-05-01 07:36] LABS: Alanine Aminotransferase 254 U/L (0-40); Albumin Level 4.2 g/dL (3.5-5.0); Alkaline Phosphatase 710 U/L (39-117); Anion Gap 12 (12-20); Aspartate Amino Transferase 141 U/L (5-37); Bilirubin Total 0.6 mg/dL (0.0-1.0); Blood Urea Nitrogen 24 mg/dL (9-16); Calcium 8.9 mg/dL (8.4-10.2); Carbon Dioxide 23 mmol/L (22-29); Chloride 109 mmol/L (96-108); Eosinophils Percent Auto 0.7 % (0-4); Estimated Glomerular Filt Rate > 60; Glucose Fasting 177 mg/dL (60-99); Hematocrit 27.3 % (42-52); Lymphocytes Absolute Auto 1.4 X10*3/uL (1.2-4.9); Lymphocytes Percent Auto 48.6 % (20-40); Magnesium 1.5 mg/dL (1.6-2.6); Mean Corpuscular HGB Conc 34.4 g/dl (31.0-36.0); Mean Corpuscular Hemoglobin 29.2 pg (27.0-33.0); Mean Corpuscular Volume 84.8 fL (80-98); Mean Platelet Volume 12.2 fL (9.4-12.4); Monocytes Absolute Auto 0.3 X10*3/uL (0.1-1.2); Monocytes Percent Auto 9.1 % (2-11); Neutrophils Absolute Auto 1.2 X10*3/uL (2.0-8.3); Neutrophils Percent Auto 41.3 % (45-73); Phosphorus 3.5 mg/dL (2.7-4.5); Red Blood Count 3.22 X10*6/uL (4.60-5.80); Red Cell Distribution Width 12.6 % (11.0-16.0); Sodium 139 mmol/L (135-145); Total Protein 6.2 g/dL (6.5-8.0)
[2020-05-01 07:41] LABS: Platelet Count 89 X10*3/uL (160-400)
[2020-05-02 07:52] LABS: Tacrolimus Prograf 4.2 mcg/L
[2020-05-04 01:32] LABS: CMV DNA Qn PCR 2.99 log IU/mL (<2.30)
[2020-05-04 08:47] LABS: CMV DNA Qn Real Time PCR 985
[2020-05-04 08:54] LABS: CMV DNA PCR Qn Source Whole Blood
== END 2020-05-01 06:00 | disposition home or self-care (01) ==
LOC: HO.LABR 05:59
PROVIDERS: PCP Internal Medicine; Visit Provider Internal Medicine
DX: Z94.4 Liver transplant status (principal)
CPT/HCPCS: 36415; 80053; 80197; 83735; 84100; 85025; 87497

== ENCOUNTER 2020-05-15 06:01 | Outpatient (REF) | payer OTHER, SELFPAY ==
[2020-05-15 07:14] LABS: MANUAL DIFF FLAG NO
[2020-05-15 07:21] LABS: Basophils Percent Auto 0.3 % (0-2); Eosinophils Percent Auto 0.3 % (0-4); Hematocrit 25.2 % (42-52); Hemoglobin 8.8 g/dl (14.0-18.0); Imm Gran Abs Auto 0.01 X10*3/uL (0.00-0.03); Imm Gran Pct Auto 0.3 % (0.0-0.4); Lymphocytes Absolute Auto 0.9 X10*3/uL (1.2-4.9); Lymphocytes Percent Auto 26.6 % (20-40); Mean Corpuscular HGB Conc 34.9 g/dl (31.0-36.0); Mean Corpuscular Hemoglobin 29.4 pg (27.0-33.0); Mean Corpuscular Volume 84.3 fL (80-98); Mean Platelet Volume 11.6 fL (9.4-12.4); Monocytes Absolute Auto 0.1 X10*3/uL (0.1-1.2); Neutrophils Absolute Auto 2.3 X10*3/uL (2.0-8.3); Neutrophils Percent Auto 69.5 % (45-73); Platelet Count 120 X10*3/uL (160-400); Red Blood Count 2.99 X10*6/uL (4.60-5.80); Red Cell Distribution Width 13.8 % (11.0-16.0); White Blood Count 3.3 X10*3/uL (4.8-10.8)
[2020-05-15 08:19] LABS: Alanine Aminotransferase 33 U/L (0-40); Albumin Level 3.7 g/dL (3.5-5.0); Alkaline Phosphatase 179 U/L (39-117); Anion Gap 12 (12-20); Aspartate Amino Transferase 11 U/L (5-37); Bilirubin Total 0.4 mg/dL (0.0-1.0); Blood Urea Nitrogen 20 mg/dL (9-16); Calcium 8.8 mg/dL (8.4-10.2); Carbon Dioxide 23 mmol/L (22-29); Chloride 105 mmol/L (96-108); Estimated Glomerular Filt Rate > 60; Phosphorus 3.4 mg/dL (2.7-4.5); Potassium 4.2 mmol/l (3.3-5.1); Sodium 136 mmol/L (135-145); Total Protein 5.8 g/dL (6.5-8.0)
[2020-05-15 08:28] LABS: Glucose Fasting 372 mg/dL (60-99); Magnesium 1.4 mg/dL (1.6-2.6)
[2020-05-16 09:32] LABS: Tacrolimus Prograf 5.3 mcg/L
== END 2020-05-15 06:02 | disposition home or self-care (01) ==
LOC: HO.LABR 06:01
PROVIDERS: PCP Internal Medicine; Visit Provider Internal Medicine
DX: Z94.4 Liver transplant status (principal)
CPT/HCPCS: 36415; 80053; 80197; 83735; 84100; 85025; 86644; 86645

== ENCOUNTER 2020-05-17 06:07 | Outpatient (REF) | payer OTHER, SELFPAY ==
[2020-05-17 07:05] LABS: Basophils Percent Auto 0.3 % (0-2); Hemoglobin 8.7 g/dl (14.0-18.0); Imm Gran Abs Auto 0.01 X10*3/uL (0.00-0.03); Imm Gran Pct Auto 0.3 % (0.0-0.4); MANUAL DIFF FLAG SCAN; PLT CLUMP 1; SCAN SMEAR FLAG 1
[2020-05-17 07:07] LABS: Eosinophils Percent Auto 1.2 % (0-4); Hematocrit 25.4 % (42-52); Lymphocytes Absolute Auto 0.7 X10*3/uL (1.2-4.9); Mean Corpuscular HGB Conc 34.3 g/dl (31.0-36.0); Mean Corpuscular Hemoglobin 28.9 pg (27.0-33.0); Mean Corpuscular Volume 84.4 fL (80-98); Mean Platelet Volume 10.3 fL (9.4-12.4); Monocytes Absolute Auto 0.1 X10*3/uL (0.1-1.2); Monocytes Percent Auto 3.2 % (2-11); Neutrophils Absolute Auto 2.6 X10*3/uL (2.0-8.3); Platelet Count 126 X10*3/uL (160-400); Red Blood Count 3.01 X10*6/uL (4.60-5.80); Red Cell Distribution Width 13.5 % (11.0-16.0); White Blood Count 3.5 X10*3/uL (4.8-10.8)
[2020-05-17 07:57] LABS: Alanine Aminotransferase 23 U/L (0-40); Albumin Level 3.6 g/dL (3.5-5.0); Alkaline Phosphatase 156 U/L (39-117); Anion Gap 12 (12-20); Aspartate Amino Transferase 11 U/L (5-37); Bilirubin Total 0.8 mg/dL (0.0-1.0); Blood Urea Nitrogen 20 mg/dL (9-16); Calcium 8.6 mg/dL (8.4-10.2); Carbon Dioxide 24 mmol/L (22-29); Chloride 106 mmol/L (96-108); Estimated Glomerular Filt Rate > 60; Glucose Fasting 171 mg/dL (60-99); Phosphorus 2.6 mg/dL (2.7-4.5); Potassium 3.9 mmol/l (3.3-5.1); Sodium 138 mmol/L (135-145); Total Protein 5.8 g/dL (6.5-8.0)
[2020-05-17 07:58] LABS: SLIDE REVIEW VERIFIED
[2020-05-17 08:17] LABS: Magnesium 1.2 mg/dL (1.6-2.6)
[2020-05-18 04:11] LABS: Tacrolimus Prograf 7.9 mcg/L
[2020-05-20 07:22] LABS: CMV DNA PCR Qn Source Whole Blood; CMV DNA Qn PCR <2.30 log IU/mL (<2.30); CMV DNA Qn Real Time PCR <200 IU/mL (<200)
== END 2020-05-17 06:08 | disposition home or self-care (01) ==
LOC: HO.LABR 06:07
PROVIDERS: PCP Internal Medicine; Visit Provider Internal Medicine
DX: Z94.4 Liver transplant status (principal)
CPT/HCPCS: 36415; 80053; 80197; 83735; 84100; 85025; 86644; 86645; 87497

== ENCOUNTER 2020-05-23 06:08 | Outpatient (REF) | payer OTHER, SELFPAY ==
[2020-05-23 07:08] LABS: Basophils Percent Auto 0.4 % (0-2); Eosinophils Percent Auto 0.4 % (0-4); Hematocrit 22.2 % (42-52); Hemoglobin 7.7 g/dl (14.0-18.0); Imm Gran Abs Auto 0.01 X10*3/uL (0.00-0.03); Imm Gran Pct Auto 0.4 % (0.0-0.4); Lymphocytes Absolute Auto 0.6 X10*3/uL (1.2-4.9); Lymphocytes Percent Auto 22.2 % (20-40); MANUAL DIFF FLAG NO; Mean Corpuscular HGB Conc 34.7 g/dl (31.0-36.0); Mean Corpuscular Hemoglobin 28.8 pg (27.0-33.0); Mean Corpuscular Volume 83.1 fL (80-98); Mean Platelet Volume 11.3 fL (9.4-12.4); Monocytes Absolute Auto 0.1 X10*3/uL (0.1-1.2); Neutrophils Absolute Auto 1.8 X10*3/uL (2.0-8.3); Neutrophils Percent Auto 72.6 % (45-73); Platelet Count 149 X10*3/uL (160-400); Red Blood Count 2.67 X10*6/uL (4.60-5.80); Red Cell Distribution Width 13.1 % (11.0-16.0); SCAN SMEAR FLAG 1
[2020-05-23 07:33] LABS: White Blood Count 2.5 X10*3/uL (4.8-10.8)
[2020-05-23 08:10] LABS: Alanine Aminotransferase 15 U/L (0-40); Albumin Level 3.6 g/dL (3.5-5.0); Alkaline Phosphatase 169 U/L (39-117); Anion Gap 11 (12-20); Aspartate Amino Transferase 10 U/L (5-37); Bilirubin Total 0.6 mg/dL (0.0-1.0); Blood Urea Nitrogen 31 mg/dL (9-16); Calcium 9.1 mg/dL (8.4-10.2); Carbon Dioxide 25 mmol/L (22-29); Chloride 104 mmol/L (96-108); Estimated Glomerular Filt Rate 55; Glucose Fasting 250 mg/dL (60-99); Phosphorus 3.5 mg/dL (2.7-4.5); Potassium 5.4 mmol/L (3.3-5.1); Sodium 135 mmol/L (135-145)
[2020-05-23 08:28] LABS: Magnesium 1.2 mg/dL (1.6-2.6)
[2020-05-24 08:46] LABS: Tacrolimus Prograf 12.2 mcg/L
[2020-05-25 20:43] LABS: CMV DNA PCR Qn Source Whole Blood; CMV DNA Qn PCR <2.30 log IU/mL (<2.30); CMV DNA Qn Real Time PCR <200 IU/mL (<200)
== END 2020-05-23 06:09 | disposition home or self-care (01) ==
LOC: HO.LABR 06:08
PROVIDERS: PCP Internal Medicine; Visit Provider Internal Medicine
DX: Z94.4 Liver transplant status (principal)
CPT/HCPCS: 36415; 80053; 80197; 83735; 84100; 85025; 87497

== ENCOUNTER 2020-05-28 06:09 | Outpatient (REF) | payer OTHER, SELFPAY ==
[2020-05-28 07:22] LABS: Basophils Percent Auto 0.6 % (0-2); Eosinophils Percent Auto 1.1 % (0-4); Hematocrit 24.8 % (42-52); Hemoglobin 8.5 g/dl (14.0-18.0); Lymphocytes Absolute Auto 0.5 X10*3/uL (1.2-4.9); Lymphocytes Percent Auto 29.3 % (20-40); MANUAL DIFF FLAG SCAN; Mean Corpuscular HGB Conc 34.3 g/dl (31.0-36.0); Mean Corpuscular Volume 84.6 fL (80-98); Mean Platelet Volume 11.8 fL (9.4-12.4); Monocytes Absolute Auto 0.1 X10*3/uL (0.1-1.2); Monocytes Percent Auto 3.9 % (2-11); Neutrophils Absolute Auto 1.2 X10*3/uL (2.0-8.3); Neutrophils Percent Auto 65.1 % (45-73); Platelet Count 155 X10*3/uL (160-400); Red Blood Count 2.93 X10*6/uL (4.60-5.80); Red Cell Distribution Width 13.6 % (11.0-16.0); SCAN SMEAR FLAG 1
[2020-05-28 07:37] LABS: White Blood Count 1.8 X10*3/uL (4.8-10.8)
[2020-05-28 08:27] LABS: SLIDE REVIEW VERIFIED
[2020-05-28 08:38] LABS: Alanine Aminotransferase 10 U/L (0-40); Albumin Level 3.8 g/dL (3.5-5.0); Alkaline Phosphatase 162 U/L (39-117); Anion Gap 11 (12-20); Aspartate Amino Transferase 11 U/L (5-37); Bilirubin Total 0.4 mg/dL (0.0-1.0); Blood Urea Nitrogen 23 mg/dL (9-16); Calcium 9.4 mg/dL (8.4-10.2); Carbon Dioxide 20 mmol/L (22-29); Chloride 109 mmol/L (96-108); Estimated Glomerular Filt Rate 59; Glucose Fasting 294 mg/dL (60-99); Phosphorus 3.9 mg/dL (2.7-4.5); Sodium 134 mmol/L (135-145); Total Protein 6.4 g/dL (6.5-8.0)
[2020-05-28 08:53] LABS: Magnesium 1.4 mg/dL (1.6-2.6)
[2020-05-29 04:22] LABS: Tacrolimus Prograf 5.6 mcg/L
[2020-06-01 10:08] LABS: CMV DNA PCR Qn Source Whole Blood; CMV DNA Qn PCR <2.30 log IU/mL (<2.30); CMV DNA Qn Real Time PCR <200 IU/mL (<200)
== END 2020-05-28 06:10 | disposition home or self-care (01) ==
LOC: HO.LABR 06:09
PROVIDERS: PCP Internal Medicine; Visit Provider Internal Medicine
DX: Z94.4 Liver transplant status (principal)
CPT/HCPCS: 36415; 80053; 80197; 83735; 84100; 85025; 85060; 87497

== ENCOUNTER 2020-05-31 06:04 | Outpatient (REF) | payer OTHER, SELFPAY ==
[2020-05-31 07:12] LABS: Basophils Percent Auto 1.1 % (0-2); Eosinophils Percent Auto 1.7 % (0-4); Hematocrit 22.8 % (42-52); Hemoglobin 8.1 g/dl (14.0-18.0); Imm Gran Abs Auto 0.01 X10*3/uL (0.00-0.03); Imm Gran Pct Auto 0.6 % (0.0-0.4); Lymphocytes Absolute Auto 0.5 X10*3/uL (1.2-4.9); Lymphocytes Percent Auto 29.1 % (20-40); MANUAL DIFF FLAG SCAN; Mean Corpuscular HGB Conc 35.5 g/dl (31.0-36.0); Mean Corpuscular Hemoglobin 29.3 pg (27.0-33.0); Mean Corpuscular Volume 82.6 fL (80-98); Mean Platelet Volume 11.5 fL (9.4-12.4); Monocytes Absolute Auto 0.1 X10*3/uL (0.1-1.2); Neutrophils Absolute Auto 1.1 X10*3/uL (2.0-8.3); Neutrophils Percent Auto 62.5 % (45-73); Platelet Count 133 X10*3/uL (160-400); Red Blood Count 2.76 X10*6/uL (4.60-5.80); Red Cell Distribution Width 13.7 % (11.0-16.0); SCAN SMEAR FLAG 1
[2020-05-31 07:20] LABS: White Blood Count 1.8 X10*3/uL (4.8-10.8)
[2020-05-31 07:46] LABS: Phosphorus 3.4 mg/dL (2.7-4.5)
[2020-05-31 07:50] LABS: Alanine Aminotransferase 12 U/L (0-40); Albumin Level 3.7 g/dL (3.5-5.0); Alkaline Phosphatase 142 U/L (39-117); Anion Gap 12 (12-20); Aspartate Amino Transferase 12 U/L (5-37); Bilirubin Total 0.5 mg/dL (0.0-1.0); Blood Urea Nitrogen 20 mg/dL (9-16); Calcium 8.4 mg/dL (8.4-10.2); Carbon Dioxide 23 mmol/L (22-29); Chloride 109 mmol/L (96-108); Estimated Glomerular Filt Rate > 60; Glucose Random 184 mg/dL (60-115); Potassium 4.9 mmol/L (3.3-5.1); Sodium 139 mmol/L (135-145); Total Protein 6.1 g/dL (6.5-8.0)
[2020-05-31 08:11] LABS: SLIDE REVIEW VERIFIED
[2020-05-31 08:36] LABS: Magnesium 1.3 mg/dL (1.6-2.6)
[2020-06-01 06:56] LABS: Tacrolimus Prograf 4.5 mcg/L
[2020-06-03 09:47] LABS: CMV DNA PCR Qn Source Whole Blood; CMV DNA Qn PCR <2.30 log IU/mL (<2.30); CMV DNA Qn Real Time PCR <200 IU/mL (<200)
== END 2020-05-31 06:05 | disposition home or self-care (01) ==
LOC: HO.LABR 06:04
PROVIDERS: PCP Internal Medicine; Visit Provider Internal Medicine
DX: Z94.4 Liver transplant status (principal)
CPT/HCPCS: 36415; 80053; 80197; 83735; 84100; 85025; 87497

== ENCOUNTER 2020-06-07 06:13 | Outpatient (REF) | payer OTHER, SELFPAY ==
--- NOTE | ~2020-06-07 | US_ITS ---
EXAMINATION: US ABDOMEN COMPLETE CLINICAL INFORMATION: Left upper quadrant pain. COMPARISON: CT abdomen and pelvis 07/12/2019. Ultrasound abdomen limited 01/10/2019. Ultrasound abdomen complete 01/18/2014. TECHNIQUE: Real-time imaging of the abdominal viscera. FINDINGS: PANCREAS: The pancreas is largely obscured by bowel gas. ABDOMINAL AORTA: The proximal to mid abdominal aorta is largely obscured by bowel gas. The distal aorta is normal in caliber. INFERIOR VENA CAVA: Visualized portions are normal. LIVER: Evidence of liver transplant which is normal in size. No dilated intrahepatic bile ducts. Parenchymal echogenicity is normal. No focal hepatic lesion. GALLBLADDER: Surgically absent. COMMON BILE DUCT: The common bile duct is dilated measuring 0.9 cm. A small 0.2 cm echogenic focus is seen in the distal common bile duct which could potentially reflect a surgical clip although a duct stone is not excluded. RIGHT KIDNEY: Normal. No hydronephrosis. No renal calculi or focal parenchymal lesions. The kidney measures 10.8 cm in maximum dimension. LEFT KIDNEY: Normal. No hydronephrosis. No renal calculi or focal parenchymal lesions. The kidney measures 12.1 cm in maximum dimension. SPLEEN: The spleen is mildly enlarged and homogeneous. The spleen measures 13.5 cm in maximum dimension. FREE FLUID: None. US/US abdomen complete IMPRESSION: 1. Status post liver transplant. The liver is normal in appearance. 2. Cholecystectomy. 3. Mildly dilated extrahepatic common duct. A small echogenic focus is seen which may reflect a surgical clip. An intraductal calculus is not excluded. Correlate with liver enzymes to determine if further evaluation is needed. 4. Mild splenomegaly
[2020-06-07 06:58] LABS: Eosinophils Percent Auto 0.5 % (0-4); Hematocrit 24.7 % (42-52); Hemoglobin 8.7 g/dl (14.0-18.0); Imm Gran Abs Auto 0.01 X10*3/uL (0.00-0.03); Imm Gran Pct Auto 0.5 % (0.0-0.4); Lymphocytes Absolute Auto 0.7 X10*3/uL (1.2-4.9); MANUAL DIFF FLAG SCAN; Mean Corpuscular HGB Conc 35.2 g/dl (31.0-36.0); Mean Corpuscular Hemoglobin 29.1 pg (27.0-33.0); Mean Corpuscular Volume 82.6 fL (80-98); Mean Platelet Volume 12.3 fL (9.4-12.4); Monocytes Absolute Auto 0.2 X10*3/uL (0.1-1.2); Monocytes Percent Auto 11.2 % (2-11); Neutrophils Absolute Auto 1.1 X10*3/uL (2.0-8.3); Neutrophils Percent Auto 54.8 % (45-73); Platelet Count 123 X10*3/uL (160-400); Red Blood Count 2.99 X10*6/uL (4.60-5.80); Red Cell Distribution Width 14.2 % (11.0-16.0); SCAN SMEAR FLAG 1
[2020-06-07 07:00] LABS: White Blood Count 2.1 X10*3/uL (4.8-10.8)
[2020-06-07 07:21] LABS: Alanine Aminotransferase 14 U/L (0-40); Albumin Level 4.1 g/dL (3.5-5.0); Alkaline Phosphatase 137 U/L (39-117); Anion Gap 12 (12-20); Aspartate Amino Transferase 12 U/L (5-37); Bilirubin Total 0.3 mg/dL (0.0-1.0); Blood Urea Nitrogen 27 mg/dL (9-16); Calcium 8.5 mg/dL (8.4-10.2); Carbon Dioxide 22 mmol/L (22-29); Chloride 110 mmol/L (96-108); Estimated Glomerular Filt Rate 45; Glucose Fasting 228 mg/dL (60-99); Magnesium 1.5 mg/dL (1.6-2.6); Phosphorus 3.8 mg/dL (2.7-4.5); Potassium 5.1 mmol/L (3.3-5.1); Sodium 139 mmol/L (135-145); Total Protein 6.4 g/dL (6.5-8.0)
[2020-06-07 07:25] LABS: SLIDE REVIEW VERIFIED
[2020-06-08 07:26] LABS: Tacrolimus Prograf 5.8 mcg/L
[2020-06-10 11:41] LABS: CMV DNA PCR Qn Source Whole Blood; CMV DNA Qn PCR <2.30 log IU/mL (<2.30); CMV DNA Qn Real Time PCR <200 IU/mL (<200)
== END 2020-06-07 06:14 | disposition home or self-care (01) ==
LOC: HO.US 06:13
PROVIDERS: PCP Internal Medicine; Referring Provider Internal Medicine; Visit Provider Internal Medicine
DX: R10.12 Left upper quadrant pain (principal); Z94.4 Liver transplant status; Z79.899 Other long term (current) drug therapy
CPT/HCPCS: 36415; 76700; 80053; 80197; 83735; 84100; 85025; 87497

== ENCOUNTER 2020-06-12 05:58 | Outpatient (REF) | payer OTHER, SELFPAY ==
[2020-06-12 07:10] LABS: Basophils Percent Auto 1.1 % (0-2); Hematocrit 24.4 % (42-52); Hemoglobin 8.7 g/dl (14.0-18.0); Lymphocytes Absolute Auto 0.6 X10*3/uL (1.2-4.9); MANUAL DIFF FLAG SCAN; Mean Corpuscular HGB Conc 35.7 g/dl (31.0-36.0); Mean Corpuscular Hemoglobin 29.5 pg (27.0-33.0); Mean Corpuscular Volume 82.7 fL (80-98); Mean Platelet Volume 12.7 fL (9.4-12.4); Monocytes Absolute Auto 0.2 X10*3/uL (0.1-1.2); Monocytes Percent Auto 8.8 % (2-11); Neutrophils Percent Auto 57.1 % (45-73); Platelet Count 104 X10*3/uL (160-400); Red Blood Count 2.95 X10*6/uL (4.60-5.80); Red Cell Distribution Width 14.3 % (11.0-16.0); SCAN SMEAR FLAG 1
[2020-06-12 07:19] LABS: White Blood Count 1.8 X10*3/uL (4.8-10.8)
[2020-06-12 07:34] LABS: Alanine Aminotransferase 14 U/L (0-40); Alkaline Phosphatase 128 U/L (39-117); Anion Gap 11 (12-20); Aspartate Amino Transferase 12 U/L (5-37); Bilirubin Total 0.5 mg/dL (0.0-1.0); Blood Urea Nitrogen 25 mg/dL (9-16); Calcium 9.3 mg/dL (8.4-10.2); Carbon Dioxide 19 mmol/L (22-29); Chloride 112 mmol/L (96-108); Estimated Glomerular Filt Rate > 60; Glucose Fasting 244 mg/dL (60-99); Phosphorus 3.9 mg/dL (2.7-4.5); Potassium 5.5 mmol/L (3.3-5.1); Sodium 136 mmol/L (135-145); Total Protein 6.4 g/dL (6.5-8.0)
[2020-06-12 07:45] LABS: SLIDE REVIEW VERIFIED
[2020-06-12 08:39] LABS: Magnesium 1.3 mg/dL (1.6-2.6)
[2020-06-13 10:51] LABS: Tacrolimus Prograf 7.1 mcg/L
[2020-06-15 09:41] LABS: CMV DNA PCR Qn Source Whole Blood; CMV DNA Qn PCR <2.30 log IU/mL (<2.30); CMV DNA Qn Real Time PCR <200 IU/mL (<200)
== END 2020-06-12 05:59 | disposition home or self-care (01) ==
LOC: HO.LABR 05:58
PROVIDERS: PCP Internal Medicine; Visit Provider Internal Medicine
DX: Z79.899 Other long term (current) drug therapy (principal); Z94.4 Liver transplant status
CPT/HCPCS: 36415; 80053; 80197; 83735; 84100; 85025; 87497

== ENCOUNTER 2020-06-19 06:19 | Outpatient (REF) | payer OTHER, SELFPAY ==
[2020-06-19 07:20] LABS: Basophils Percent Auto 0.7 % (0-2); Eosinophils Percent Auto 0.7 % (0-4); Hemoglobin 8.5 g/dl (14.0-18.0); Lymphocytes Absolute Auto 0.6 X10*3/uL (1.2-4.9); Lymphocytes Percent Auto 38.9 % (20-40); MANUAL DIFF FLAG SCAN; Mean Corpuscular HGB Conc 35.4 g/dl (31.0-36.0); Mean Corpuscular Volume 84.8 fL (80-98); Monocytes Absolute Auto 0.2 X10*3/uL (0.1-1.2); Monocytes Percent Auto 13.2 % (2-11); Neutrophils Absolute Auto 0.7 X10*3/uL (2.0-8.3); Neutrophils Percent Auto 46.5 % (45-73); Red Blood Count 2.83 X10*6/uL (4.60-5.80); Red Cell Distribution Width 14.9 % (11.0-16.0); SCAN SMEAR FLAG 1
[2020-06-19 07:34] LABS: Platelet Count 78 X10*3/uL (160-400); White Blood Count 1.4 X10*3/uL (4.8-10.8)
[2020-06-19 07:55] LABS: SLIDE REVIEW VERIFIED
[2020-06-19 08:47] LABS: Alanine Aminotransferase 48 U/L (0-40); Alkaline Phosphatase 181 U/L (39-117); Anion Gap 11 (12-20); Aspartate Amino Transferase 19 U/L (5-37); Bilirubin Total 0.6 mg/dL (0.0-1.0); Blood Urea Nitrogen 22 mg/dL (9-16); Calcium 9.1 mg/dL (8.4-10.2); Carbon Dioxide 23 mmol/L (22-29); Chloride 109 mmol/L (96-108); Estimated Glomerular Filt Rate > 60; Glucose Fasting 173 mg/dL (60-99); Magnesium 1.4 mg/dL (1.6-2.6); Phosphorus 4.1 mg/dL (2.7-4.5); Potassium 5.2 mmol/L (3.3-5.1); Sodium 138 mmol/L (135-145); Total Protein 6.2 g/dL (6.5-8.0)
[2020-06-20 07:47] LABS: Tacrolimus Prograf 3.1 mcg/L
[2020-06-21 16:02] LABS: CMV DNA PCR Qn Source Whole Blood; CMV DNA Qn PCR <2.30 log IU/mL (<2.30); CMV DNA Qn Real Time PCR <200 IU/mL (<200)
== END 2020-06-19 06:20 | disposition home or self-care (01) ==
LOC: HO.LABR 06:19
PROVIDERS: PCP Internal Medicine; Visit Provider Internal Medicine
DX: Z79.899 Other long term (current) drug therapy (principal); Z94.4 Liver transplant status
CPT/HCPCS: 36415; 80053; 80197; 83735; 84100; 85025; 87497

== ENCOUNTER 2020-06-26 06:17 | Outpatient (REF) | payer OTHER, SELFPAY ==
[2020-06-26 07:37] LABS: Basophils Percent Auto 1.1 % (0-2); Eosinophils Percent Auto 1.6 % (0-4); Hematocrit 26.2 % (42-52); Lymphocytes Absolute Auto 0.9 X10*3/uL (1.2-4.9); Lymphocytes Percent Auto 49.2 % (20-40); MANUAL DIFF FLAG SCAN; Mean Corpuscular HGB Conc 34.4 g/dl (31.0-36.0); Mean Corpuscular Hemoglobin 29.9 pg (27.0-33.0); Mean Platelet Volume 12.4 fL (9.4-12.4); Monocytes Absolute Auto 0.5 X10*3/uL (0.1-1.2); Monocytes Percent Auto 26.5 % (2-11); Neutrophils Absolute Auto 0.4 X10*3/uL (2.0-8.3); Neutrophils Percent Auto 21.6 % (45-73); Red Blood Count 3.01 X10*6/uL (4.60-5.80); Red Cell Distribution Width 15.4 % (11.0-16.0); SCAN SMEAR FLAG 1
[2020-06-26 07:39] LABS: Platelet Count 98 X10*3/uL (160-400); White Blood Count 1.9 X10*3/uL (4.8-10.8)
[2020-06-26 07:59] LABS: Alanine Aminotransferase 33 U/L (0-40); Alkaline Phosphatase 196 U/L (39-117); Anion Gap 9 (12-20); Aspartate Amino Transferase 17 U/L (5-37); Bilirubin Total 0.4 mg/dL (0.0-1.0); Blood Urea Nitrogen 25 mg/dL (9-16); Carbon Dioxide 28 mmol/L (22-29); Chloride 109 mmol/L (96-108); Estimated Glomerular Filt Rate 53; Glucose Fasting 130 mg/dL (60-99); Magnesium 1.8 mg/dL (1.6-2.6); Phosphorus 4.1 mg/dL (2.7-4.5); Potassium 5.5 mmol/L (3.3-5.1); Sodium 140 mmol/L (135-145); Total Protein 6.3 g/dL (6.5-8.0)
[2020-06-26 08:14] LABS: SLIDE REVIEW VERIFIED
[2020-06-27 10:06] LABS: Tacrolimus Prograf 7.7 mcg/L
[2020-06-29 15:36] LABS: CMV DNA PCR Qn Source Whole Blood; CMV DNA Qn PCR <2.30 log IU/mL (<2.30); CMV DNA Qn Real Time PCR <200 IU/mL (<200)
== END 2020-06-26 06:18 | disposition home or self-care (01) ==
LOC: HO.LABR 06:17
PROVIDERS: PCP Internal Medicine; Visit Provider Internal Medicine
DX: Z94.4 Liver transplant status (principal); Z79.899 Other long term (current) drug therapy
CPT/HCPCS: 36415; 80053; 80197; 83735; 84100; 85025; 87497

== ENCOUNTER 2020-07-03 06:09 | Outpatient (REF) | payer OTHER, SELFPAY ==
[2020-07-03 06:56] LABS: Ammonia 27 umol/L (13-55)
[2020-07-03 07:00] LABS: Basophils Percent Auto 1.2 % (0-2); Eosinophils Absolute Auto 0.1 X10*3/uL (0.0-0.4); Eosinophils Percent Auto 3.1 % (0-4); Hematocrit 26.4 % (42-52); Hemoglobin 9.4 g/dl (14.0-18.0); Imm Gran Abs Auto 0.01 X10*3/uL (0.00-0.03); Imm Gran Pct Auto 0.4 % (0.0-0.4); Lymphocytes Absolute Auto 0.9 X10*3/uL (1.2-4.9); MANUAL DIFF FLAG SCAN; Mean Corpuscular HGB Conc 35.6 g/dl (31.0-36.0); Mean Corpuscular Hemoglobin 30.7 pg (27.0-33.0); Mean Corpuscular Volume 86.3 fL (80-98); Mean Platelet Volume 11.4 fL (9.4-12.4); Monocytes Absolute Auto 0.5 X10*3/uL (0.1-1.2); Monocytes Percent Auto 20.9 % (2-11); Neutrophils Percent Auto 37.4 % (45-73); Platelet Count 105 X10*3/uL (160-400); Red Blood Count 3.06 X10*6/uL (4.60-5.80); Red Cell Distribution Width 14.9 % (11.0-16.0); SCAN SMEAR FLAG 1
[2020-07-03 07:04] LABS: White Blood Count 2.5 X10*3/uL (4.8-10.8)
[2020-07-03 07:05] LABS: Alanine Aminotransferase 34 U/L (0-40); Albumin Level 4.1 g/dL (3.5-5.0); Alkaline Phosphatase 180 U/L (39-117); Anion Gap 10 (12-20); Aspartate Amino Transferase 19 U/L (5-37); Bilirubin Total 0.8 mg/dL (0.0-1.0); Blood Urea Nitrogen 24 mg/dL (9-16); Carbon Dioxide 25 mmol/L (22-29); Chloride 108 mmol/L (96-108); Estimated Glomerular Filt Rate 52; Glucose Fasting 250 mg/dL (60-99); Magnesium 1.7 mg/dL (1.6-2.6); Phosphorus 3.9 mg/dL (2.7-4.5); Potassium 5.5 mmol/L (3.3-5.1); Sodium 137 mmol/L (135-145); Total Protein 6.5 g/dL (6.5-8.0)
[2020-07-03 07:06] LABS: Alanine Aminotransferase 35 U/L (0-40); Albumin Level 4.1 g/dL (3.5-5.0); Alkaline Phosphatase 180 U/L (39-117); Aspartate Amino Transferase 19 U/L (5-37); Bilirubin Direct 0.2 mg/dL (0.0-0.5); Bilirubin Total 0.8 mg/dL (0.0-1.0); Total Protein 6.5 g/dL (6.5-8.0)
[2020-07-03 08:03] LABS: SLIDE REVIEW VERIFIED
[2020-07-04 07:22] LABS: Tacrolimus Prograf 4.6 mcg/L
[2020-07-06 08:22] LABS: CMV DNA PCR Qn Source Whole Blood; CMV DNA Qn PCR <2.30 log IU/mL (<2.30); CMV DNA Qn Real Time PCR <200 IU/mL (<200)
== END 2020-07-03 06:10 | disposition home or self-care (01) ==
LOC: HO.LAB 06:09
PROVIDERS: Absent Provider Internal Medicine; PCP Internal Medicine; Visit Provider Internal Medicine
DX: T86.41 Liver transplant rejection (principal); Z79.899 Other long term (current) drug therapy
CPT/HCPCS: 36415; 80053; 80076; 80197; 82140; 82248; 83735; 84100; 85025; 87497

== ENCOUNTER 2020-07-10 06:22 | Outpatient (REF) | payer OTHER, SELFPAY ==
[2020-07-10 07:14] LABS: Basophils Percent Auto 0.8 % (0-2); Eosinophils Absolute Auto 0.1 X10*3/uL (0.0-0.4); Eosinophils Percent Auto 2.5 % (0-4); Hematocrit 25.8 % (42-52); Imm Gran Abs Auto 0.01 X10*3/uL (0.00-0.03); Imm Gran Pct Auto 0.4 % (0.0-0.4); Lymphocytes Percent Auto 43.5 % (20-40); MANUAL DIFF FLAG SCAN; Mean Corpuscular HGB Conc 34.9 g/dl (31.0-36.0); Mean Corpuscular Hemoglobin 29.9 pg (27.0-33.0); Mean Corpuscular Volume 85.7 fL (80-98); Mean Platelet Volume 10.9 fL (9.4-12.4); Monocytes Absolute Auto 0.3 X10*3/uL (0.1-1.2); Monocytes Percent Auto 13.4 % (2-11); Neutrophils Absolute Auto 0.9 X10*3/uL (2.0-8.3); Neutrophils Percent Auto 39.4 % (45-73); Red Blood Count 3.01 X10*6/uL (4.60-5.80); Red Cell Distribution Width 14.7 % (11.0-16.0); SCAN SMEAR FLAG 1
[2020-07-10 07:20] LABS: Platelet Count 82 X10*3/uL (160-400); White Blood Count 2.4 X10*3/uL (4.8-10.8)
[2020-07-10 07:54] LABS: SLIDE REVIEW VERIFIED
[2020-07-10 07:58] LABS: Alanine Aminotransferase 48 U/L (0-40); Albumin Level 4.2 g/dL (3.5-5.0); Alkaline Phosphatase 193 U/L (39-117); Anion Gap 12 (12-20); Aspartate Amino Transferase 33 U/L (5-37); Bilirubin Total 0.8 mg/dL (0.0-1.0); Blood Urea Nitrogen 32 mg/dL (9-16); Calcium 9.1 mg/dL (8.4-10.2); Carbon Dioxide 23 mmol/L (22-29); Chloride 108 mmol/L (96-108); Estimated Glomerular Filt Rate 55; Glucose Random 213 mg/dL (60-115); Magnesium 1.8 mg/dL (1.6-2.6); Phosphorus 4.2 mg/dL (2.7-4.5); Potassium 5.8 mmol/L (3.3-5.1); Sodium 137 mmol/L (135-145); Total Protein 6.6 g/dL (6.5-8.0)
[2020-07-11 07:01] LABS: Tacrolimus Prograf 6.3 mcg/L
== END 2020-07-10 06:23 | disposition home or self-care (01) ==
LOC: HO.LABR 06:22
PROVIDERS: PCP Internal Medicine; Visit Provider Internal Medicine
DX: Z94.4 Liver transplant status (principal); Z79.899 Other long term (current) drug therapy
CPT/HCPCS: 36415; 80053; 80197; 83735; 84100; 85025; 86644; 86645

== ENCOUNTER 2020-07-12 07:00 | Outpatient (RCR) | payer OTHER, SELFPAY | END 2020-07-17 10:18 | disposition other institution (70) | LOC: HO.PT 07:00 | PROVIDERS: PCP Internal Medicine; Visit Provider Internal Medicine | DX: M54.5 Low back pain (principal) | CPT/HCPCS: 97110; 97161 ==

== ENCOUNTER 2020-07-18 06:16 | Outpatient (REF) | payer OTHER, SELFPAY ==
[2020-07-18 06:56] LABS: Basophils Percent Auto 0.7 % (0-2); Eosinophils Absolute Auto 0.1 X10*3/uL (0.0-0.4); Eosinophils Percent Auto 2.6 % (0-4); Hematocrit 26.3 % (42-52); Hemoglobin 9.5 g/dl (14.0-18.0); Imm Gran Abs Auto 0.01 X10*3/uL (0.00-0.03); Imm Gran Pct Auto 0.4 % (0.0-0.4); Lymphocytes Absolute Auto 1.1 X10*3/uL (1.2-4.9); Lymphocytes Percent Auto 40.9 % (20-40); MANUAL DIFF FLAG NO; Mean Corpuscular HGB Conc 36.1 g/dl (31.0-36.0); Mean Corpuscular Hemoglobin 31.1 pg (27.0-33.0); Mean Corpuscular Volume 86.2 fL (80-98); Mean Platelet Volume 11.3 fL (9.4-12.4); Monocytes Absolute Auto 0.3 X10*3/uL (0.1-1.2); Monocytes Percent Auto 9.9 % (2-11); Neutrophils Absolute Auto 1.3 X10*3/uL (2.0-8.3); Neutrophils Percent Auto 45.5 % (45-73); Red Blood Count 3.05 X10*6/uL (4.60-5.80); Red Cell Distribution Width 14.4 % (11.0-16.0); White Blood Count 2.7 X10*3/uL (4.8-10.8)
[2020-07-18 06:59] LABS: Platelet Count 89 X10*3/uL (160-400)
[2020-07-18 09:45] LABS: Alanine Aminotransferase 33 U/L (0-40); Albumin Level 4.3 g/dL (3.5-5.0); Alkaline Phosphatase 138 U/L (39-117); Anion Gap 11 (12-20); Aspartate Amino Transferase 22 U/L (5-37); Bilirubin Total 0.5 mg/dL (0.0-1.0); Blood Urea Nitrogen 24 mg/dL (9-16); Calcium 9.3 mg/dL (8.4-10.2); Carbon Dioxide 25 mmol/L (22-29); Chloride 108 mmol/L (96-108); Estimated Glomerular Filt Rate 59; Glucose Random 185 mg/dL (60-115); Magnesium 1.7 mg/dL (1.6-2.6); Phosphorus 4.4 mg/dL (2.7-4.5); Potassium 6.1 mmol/L (3.3-5.1); Sodium 138 mmol/L (135-145); Total Protein 6.7 g/dL (6.5-8.0)
== END 2020-07-18 06:17 | disposition home or self-care (01) ==
LOC: HO.LABR 06:16
PROVIDERS: PCP Internal Medicine; Visit Provider Internal Medicine
DX: Z94.4 Liver transplant status (principal); Z79.899 Other long term (current) drug therapy
CPT/HCPCS: 36415; 80053; 80197; 83735; 84100; 85025; 86644; 86645

== ENCOUNTER 2020-07-19 08:48 | Outpatient (REF) | payer OTHER, SELFPAY ==
--- NOTE | ~2020-07-19 | CT_ITS ---
EXAMINATION: CT ABDOMEN AND PELVIS WITH CONTRAST CLINICAL INFORMATION: Left lower quadrant pain COMPARISON: 07/12/2019 TECHNIQUE: Multidetector volumetric images were obtained from the superior aspect of the liver through the pubic symphysis following administration of 75 mL of Omnipaque 350 intravenous contrast. Sagittal and coronal reformatted images were obtained on the technologist's workstation. Oral contrast: Yes This CT examination was performed using dose optimization techniques as appropriate, variously including the following: *Automated exposure control *Adjustment of mA and/or kV according to patient size (this includes techniques or standardized protocols for targeted exams where dose is matched to indication/reason for exam; i.e. extremities or head) *Use of iterative reconstruction technique DLP: 752 mGy-cm FINDINGS: LUNG BASES: Minimal bibasilar atelectasis. Coronary artery calcifications noted. LIVER, GALLBLADDER, AND BILIARY TREE: Evidence of liver transplant. The liver is normal in size, shape, and attenuation. No focal hepatic lesion. Mild intrahepatic biliary ductal dilatation.. Gallbladder is absent. Multiple surgical clips are seen. Small stent seen in the common bile duct extending into the duodenum and proximal jejunum. PANCREAS: Unremarkable. SPLEEN: The spleen is enlarged measuring 16 cm in CC dimension. No focal lesion. ADRENAL GLANDS: Unremarkable. KIDNEYS AND URETERS: The kidneys are normal in size, shape, and attenuation. No hydronephrosis, hydroureter, or calculi seen. No perinephric stranding. BLADDER: Unremarkable. GASTROINTESTINAL TRACT: The stomach is unremarkable. Normal caliber small bowel. No obstruction. Contrast flows into the colon. No colonic wall thickening or acute inflammation. Mild colonic stool burden. Prominent diverticulosis of the sigmoid colon without diverticulitis. No free air or free fluid. ABDOMINAL WALL: Small fat-containing hernia at the right paracentral ventral region in the area of scar. Small amount of fluid at this location as well. LYMPH NODES: No pathologically enlarged lymph nodes. Mildly prominent retroperitoneal lymph nodes are seen.. VASCULAR: Normal caliber aorta with mild atherosclerotic calcification. PELVIC VISCERA: The prostate and seminal vesicles are unremarkable. OSSEOUS STRUCTURES: No acute or suspicious osseous abnormality. CT/CT abdomen pelvis w con IMPRESSION: No acute findings in the abdomen or pelvis. Transplant liver. Splenomegaly noted once again. Prominent diverticulosis of the sigmoid colon without acute diverticulitis.
[2020-07-19] MEDS: Barium Sulfate Oral (Berry) 450 ML ORAL.SUSP 900 ML PO (12:12)
== END 2020-07-19 08:49 | disposition home or self-care (01) ==
LOC: HO.CT 08:48
PROVIDERS: PCP Internal Medicine; Visit Provider Internal Medicine
DX: R10.32 Left lower quadrant pain (principal)
CPT/HCPCS: 74177; Q9967

== ENCOUNTER 2020-07-24 06:38 | Outpatient (REF) | payer OTHER, SELFPAY ==
[2020-07-24 07:45] LABS: Hematocrit 26.9 % (42-52); Hemoglobin 9.4 g/dl (14.0-18.0); Imm Gran Abs Auto 0.01 X10*3/uL (0.00-0.03); Imm Gran Pct Auto 0.3 % (0.0-0.4); MANUAL DIFF FLAG SCAN; Mean Corpuscular HGB Conc 34.9 g/dl (31.0-36.0); Mean Corpuscular Hemoglobin 30.6 pg (27.0-33.0); Mean Corpuscular Volume 87.6 fL (80-98); Monocytes Absolute Auto 0.4 X10*3/uL (0.1-1.2); PLT CLUMP 1; Red Blood Count 3.07 X10*6/uL (4.60-5.80); Red Cell Distribution Width 14.3 % (11.0-16.0); SCAN SMEAR FLAG 1
[2020-07-24 07:47] LABS: Eosinophils Absolute Auto 0.1 X10*3/uL (0.0-0.4); Eosinophils Percent Auto 1.9 % (0-4); Lymphocytes Absolute Auto 1.2 X10*3/uL (1.2-4.9); Lymphocytes Percent Auto 39.8 % (20-40); Monocytes Percent Auto 11.3 % (2-11); Neutrophils Absolute Auto 1.4 X10*3/uL (2.0-8.3); Neutrophils Percent Auto 45.7 % (45-73); White Blood Count 3.1 X10*3/uL (4.8-10.8)
[2020-07-24 07:48] LABS: Platelet Count 83 X10*3/uL (160-400)
[2020-07-24 08:07] LABS: Alanine Aminotransferase 32 U/L (0-40); Albumin Level 4.3 g/dL (3.5-5.0); Alkaline Phosphatase 130 U/L (39-117); Anion Gap 10 (12-20); Aspartate Amino Transferase 24 U/L (5-37); Bilirubin Total 0.5 mg/dL (0.0-1.0); Blood Urea Nitrogen 31 mg/dL (9-16); Calcium 9.6 mg/dL (8.4-10.2); Carbon Dioxide 28 mmol/L (22-29); Chloride 108 mmol/L (96-108); Estimated Glomerular Filt Rate 47; Glucose Random 150 mg/dL (60-115); Phosphorus 4.9 mg/dL (2.7-4.5); Potassium 5.7 mmol/L (3.3-5.1); Sodium 140 mmol/L (135-145); Total Protein 6.6 g/dL (6.5-8.0)
[2020-07-25 06:37] LABS: Tacrolimus Prograf 7.5 mcg/L
== END 2020-07-24 06:39 | disposition home or self-care (01) ==
LOC: HO.LABR 06:38
PROVIDERS: PCP Internal Medicine; Visit Provider Internal Medicine
DX: Z94.4 Liver transplant status (principal); Z79.899 Other long term (current) drug therapy
CPT/HCPCS: 36415; 80053; 80197; 83735; 84100; 85025; 86644; 86645

== ENCOUNTER → 2020-07-27 08:34 | Outpatient (BNVA) | payer OTHER, SELFPAY | PROVIDERS: PCP Internal Medicine; Referring Provider Internal Medicine; Visit Provider Internal Medicine Gastroenterology | DX: Z13.89 Encounter for screening for other disorder (principal) | CPT/HCPCS: Q3014 ==

== ENCOUNTER 2020-07-31 06:36 | Outpatient (REF) | payer OTHER, SELFPAY ==
[2020-07-31 07:16] LABS: MANUAL DIFF FLAG NO
[2020-07-31 07:19] LABS: Basophils Percent Auto 0.8 % (0-2); Eosinophils Absolute Auto 0.1 X10*3/uL (0.0-0.4); Eosinophils Percent Auto 1.9 % (0-4); Hematocrit 28.8 % (42-52); Hemoglobin 9.9 g/dl (14.0-18.0); Imm Gran Abs Auto 0.01 X10*3/uL (0.00-0.03); Imm Gran Pct Auto 0.4 % (0.0-0.4); Lymphocytes Absolute Auto 0.9 X10*3/uL (1.2-4.9); Lymphocytes Percent Auto 34.4 % (20-40); Mean Corpuscular HGB Conc 34.4 g/dl (31.0-36.0); Mean Corpuscular Hemoglobin 30.2 pg (27.0-33.0); Mean Corpuscular Volume 87.8 fL (80-98); Mean Platelet Volume 10.6 fL (9.4-12.4); Monocytes Absolute Auto 0.3 X10*3/uL (0.1-1.2); Monocytes Percent Auto 10.4 % (2-11); Neutrophils Absolute Auto 1.4 X10*3/uL (2.0-8.3); Neutrophils Percent Auto 52.1 % (45-73); Red Blood Count 3.28 X10*6/uL (4.60-5.80); Red Cell Distribution Width 13.3 % (11.0-16.0); White Blood Count 2.6 X10*3/uL (4.8-10.8)
[2020-07-31 07:41] LABS: Platelet Count 87 X10*3/uL (160-400)
[2020-07-31 07:47] LABS: Alanine Aminotransferase 65 U/L (0-40); Albumin Level 4.3 g/dL (3.5-5.0); Alkaline Phosphatase 239 U/L (39-117); Anion Gap 11 (12-20); Aspartate Amino Transferase 25 U/L (5-37); Bilirubin Total 0.6 mg/dL (0.0-1.0); Blood Urea Nitrogen 26 mg/dL (9-16); Calcium 9.3 mg/dL (8.4-10.2); Carbon Dioxide 25 mmol/L (22-29); Chloride 109 mmol/L (96-108); Estimated Glomerular Filt Rate 52; Glucose Random 157 mg/dL (60-115); Phosphorus 4.6 mg/dL (2.7-4.5); Potassium 5.7 mmol/L (3.3-5.1); Sodium 139 mmol/L (135-145); Total Protein 6.9 g/dL (6.5-8.0)
[2020-08-01 06:47] LABS: Tacrolimus Prograf 6.2 mcg/L
[2020-08-03 06:21] LABS: CMV DNA PCR Qn Source Plasma; CMV DNA Qn PCR <2.30 log IU/mL (<2.30); CMV DNA Qn Real Time PCR <200 IU/mL (<200)
== END 2020-07-31 06:37 | disposition home or self-care (01) ==
LOC: HO.LABR 06:36
PROVIDERS: PCP Internal Medicine; Visit Provider Internal Medicine
DX: Z94.4 Liver transplant status (principal); Z79.899 Other long term (current) drug therapy
CPT/HCPCS: 36415; 80053; 80197; 83735; 84100; 85025; 86644; 86645; 87497

== ENCOUNTER → 2020-08-03 13:55 | Outpatient (BNVA) | payer OTHER, SELFPAY | PROVIDERS: PCP Internal Medicine; Visit Provider Urology | DX: N52.01 Erectile dysfunction due to arterial insufficiency (principal) | CPT/HCPCS: 99202 ==

== ENCOUNTER 2020-08-07 06:12 | Outpatient (REF) | payer OTHER, SELFPAY ==
[2020-08-07 07:07] LABS: MANUAL DIFF FLAG NO
[2020-08-07 07:12] LABS: Basophils Percent Auto 0.4 % (0-2); Eosinophils Absolute Auto 0.1 X10*3/uL (0.0-0.4); Eosinophils Percent Auto 2.3 % (0-4); Hematocrit 26.3 % (42-52); Hemoglobin 9.2 g/dl (14.0-18.0); Imm Gran Abs Auto 0.01 X10*3/uL (0.00-0.03); Imm Gran Pct Auto 0.4 % (0.0-0.4); Lymphocytes Absolute Auto 0.8 X10*3/uL (1.2-4.9); Lymphocytes Percent Auto 31.5 % (20-40); Mean Corpuscular Hemoglobin 30.7 pg (27.0-33.0); Mean Corpuscular Volume 87.7 fL (80-98); Mean Platelet Volume 10.8 fL (9.4-12.4); Monocytes Absolute Auto 0.4 X10*3/uL (0.1-1.2); Monocytes Percent Auto 13.5 % (2-11); Neutrophils Absolute Auto 1.4 X10*3/uL (2.0-8.3); Neutrophils Percent Auto 51.9 % (45-73); Platelet Count 90 X10*3/uL (160-400); Red Cell Distribution Width 13.2 % (11.0-16.0); White Blood Count 2.6 X10*3/uL (4.8-10.8)
[2020-08-07 07:50] LABS: Alanine Aminotransferase 34 U/L (0-40); Albumin Level 4.3 g/dL (3.5-5.0); Alkaline Phosphatase 149 U/L (39-117); Anion Gap 11 (12-20); Aspartate Amino Transferase 21 U/L (5-37); Bilirubin Total 0.7 mg/dL (0.0-1.0); Blood Urea Nitrogen 31 mg/dL (9-16); Calcium 9.1 mg/dL (8.4-10.2); Carbon Dioxide 26 mmol/L (22-29); Chloride 108 mmol/L (96-108); Estimated Glomerular Filt Rate 57; Glucose Random 149 mg/dL (60-115); Magnesium 1.7 mg/dL (1.6-2.6); Phosphorus 4.3 mg/dL (2.7-4.5); Potassium 5.5 mmol/L (3.3-5.1); Sodium 139 mmol/L (135-145); Total Protein 6.9 g/dL (6.5-8.0)
[2020-08-08 05:42] LABS: Tacrolimus Prograf 3.2 mcg/L
[2020-08-10 12:33] LABS: CMV DNA PCR Qn Source Whole Blood; CMV DNA Qn PCR <2.30 log IU/mL (<2.30); CMV DNA Qn Real Time PCR <200 IU/mL (<200)
== END 2020-08-07 06:13 | disposition home or self-care (01) ==
LOC: HO.LABR 06:12
PROVIDERS: PCP Internal Medicine; Visit Provider Internal Medicine
DX: Z94.4 Liver transplant status (principal)
CPT/HCPCS: 36415; 80053; 80197; 83735; 84100; 85025; 87497

== ENCOUNTER 2020-08-14 06:37 | Outpatient (REF) | payer OTHER, SELFPAY ==
[2020-08-14 07:11] LABS: MANUAL DIFF FLAG NO
[2020-08-14 07:16] LABS: Basophils Percent Auto 0.7 % (0-2); Eosinophils Absolute Auto 0.1 X10*3/uL (0.0-0.4); Eosinophils Percent Auto 2.5 % (0-4); Hematocrit 27.8 % (42-52); Hemoglobin 9.8 g/dl (14.0-18.0); Imm Gran Abs Auto 0.01 X10*3/uL (0.00-0.03); Imm Gran Pct Auto 0.4 % (0.0-0.4); Lymphocytes Absolute Auto 0.9 X10*3/uL (1.2-4.9); Lymphocytes Percent Auto 31.2 % (20-40); Mean Corpuscular HGB Conc 35.3 g/dl (31.0-36.0); Mean Platelet Volume 10.3 fL (9.4-12.4); Monocytes Absolute Auto 0.3 X10*3/uL (0.1-1.2); Monocytes Percent Auto 12.3 % (2-11); Neutrophils Absolute Auto 1.5 X10*3/uL (2.0-8.3); Neutrophils Percent Auto 52.9 % (45-73); Red Blood Count 3.16 X10*6/uL (4.60-5.80); Red Cell Distribution Width 12.7 % (11.0-16.0); White Blood Count 2.8 X10*3/uL (4.8-10.8)
[2020-08-14 07:18] LABS: Platelet Count 86 X10*3/uL (160-400)
[2020-08-14 07:37] LABS: Alanine Aminotransferase 41 U/L (0-40); Albumin Level 4.2 g/dL (3.5-5.0); Alkaline Phosphatase 169 U/L (39-117); Anion Gap 11 (12-20); Aspartate Amino Transferase 28 U/L (5-37); Bilirubin Total 0.5 mg/dL (0.0-1.0); Blood Urea Nitrogen 22 mg/dL (9-16); Calcium 9.5 mg/dL (8.4-10.2); Carbon Dioxide 27 mmol/L (22-29); Chloride 107 mmol/L (96-108); Estimated Glomerular Filt Rate > 60; Glucose Random 195 mg/dL (60-115); Magnesium 1.7 mg/dL (1.6-2.6); Phosphorus 4.1 mg/dL (2.7-4.5); Potassium 5.1 mmol/L (3.3-5.1); Sodium 140 mmol/L (135-145); Total Protein 6.8 g/dL (6.5-8.0)
[2020-08-15 06:52] LABS: Tacrolimus Prograf 4.5 mcg/L
[2020-08-16 15:31] LABS: CMV DNA PCR Qn Source Whole Blood; CMV DNA Qn PCR <2.30 log IU/mL (<2.30); CMV DNA Qn Real Time PCR <200 IU/mL (<200)
== END 2020-08-14 06:38 | disposition home or self-care (01) ==
LOC: HO.LABR 06:37
PROVIDERS: PCP Internal Medicine; Visit Provider Internal Medicine
DX: Z94.4 Liver transplant status (principal); Z79.899 Other long term (current) drug therapy
CPT/HCPCS: 36415; 80053; 80197; 83735; 84100; 85025; 87497

== ENCOUNTER 2020-08-16 07:48 | Outpatient (REF) | payer OTHER, SELFPAY ==
[2020-08-16 08:17] LABS: COVID-19 Test Negative (Negative)
[2020-08-16 08:23] LABS: IDNOW Serial# 55D5AD1C
== END 2020-08-16 07:49 | disposition home or self-care (01) ==
LOC: HO.LAB 07:48
PROVIDERS: Visit Provider Internal Medicine
DX: Z20.822 Contact with and (suspected) exposure to COVID-19 (principal)
CPT/HCPCS: 36415; 87635; C9803

== ENCOUNTER 2020-08-21 06:32 | Outpatient (REF) | payer OTHER, SELFPAY ==
[2020-08-21 07:13] LABS: MANUAL DIFF FLAG NO
[2020-08-21 07:19] LABS: Basophils Percent Auto 0.4 % (0-2); Eosinophils Percent Auto 1.4 % (0-4); Hematocrit 26.9 % (42-52); Hemoglobin 9.8 g/dl (14.0-18.0); Lymphocytes Absolute Auto 0.8 X10*3/uL (1.2-4.9); Lymphocytes Percent Auto 29.9 % (20-40); Mean Corpuscular HGB Conc 36.4 g/dl (31.0-36.0); Mean Corpuscular Hemoglobin 31.6 pg (27.0-33.0); Mean Corpuscular Volume 86.8 fL (80-98); Mean Platelet Volume 11.3 fL (9.4-12.4); Monocytes Absolute Auto 0.3 X10*3/uL (0.1-1.2); Monocytes Percent Auto 10.1 % (2-11); Neutrophils Absolute Auto 1.6 X10*3/uL (2.0-8.3); Neutrophils Percent Auto 58.2 % (45-73); Red Cell Distribution Width 12.5 % (11.0-16.0); White Blood Count 2.8 X10*3/uL (4.8-10.8)
[2020-08-21 07:27] LABS: Platelet Count 96 X10*3/uL (160-400)
[2020-08-21 07:43] LABS: Alanine Aminotransferase 25 U/L (0-40); Albumin Level 4.3 g/dL (3.5-5.0); Alkaline Phosphatase 143 U/L (39-117); Anion Gap 8 (12-20); Aspartate Amino Transferase 18 U/L (5-37); Bilirubin Total 0.6 mg/dL (0.0-1.0); Blood Urea Nitrogen 25 mg/dL (9-16); Calcium 9.7 mg/dL (8.4-10.2); Carbon Dioxide 28 mmol/L (22-29); Chloride 107 mmol/L (96-108); Estimated Glomerular Filt Rate > 60; Glucose Random 231 mg/dL (60-115); Magnesium 1.6 mg/dL (1.6-2.6); Phosphorus 3.9 mg/dL (2.7-4.5); Potassium 5.2 mmol/L (3.3-5.1); Sodium 138 mmol/L (135-145); Total Protein 6.8 g/dL (6.5-8.0)
[2020-08-22 09:21] LABS: Tacrolimus Prograf 6.5 mcg/L
[2020-08-24 11:26] LABS: CMV DNA PCR Qn Source Whole Blood; CMV DNA Qn PCR <2.30 log IU/mL (<2.30); CMV DNA Qn Real Time PCR <200 IU/mL (<200)
== END 2020-08-21 06:33 | disposition home or self-care (01) ==
LOC: HO.LABR 06:32
PROVIDERS: PCP Internal Medicine; Visit Provider Internal Medicine
DX: Z94.4 Liver transplant status (principal); Z79.899 Other long term (current) drug therapy
CPT/HCPCS: 36415; 80053; 80197; 83735; 84100; 85025; 87497

== ENCOUNTER 2020-09-12 06:52 | Outpatient (REF) | payer OTHER, SELFPAY ==
[2020-09-12 07:39] LABS: MANUAL DIFF FLAG NO
[2020-09-12 07:46] LABS: Basophils Percent Auto 0.3 % (0-2); Eosinophils Percent Auto 1.2 % (0-4); Hematocrit 28.1 % (42-52); Imm Gran Abs Auto 0.01 X10*3/uL (0.00-0.03); Imm Gran Pct Auto 0.3 % (0.0-0.4); Lymphocytes Absolute Auto 0.9 X10*3/uL (1.2-4.9); Lymphocytes Percent Auto 28.4 % (20-40); Mean Corpuscular HGB Conc 35.6 g/dl (31.0-36.0); Mean Corpuscular Hemoglobin 30.6 pg (27.0-33.0); Mean Corpuscular Volume 85.9 fL (80-98); Mean Platelet Volume 10.9 fL (9.4-12.4); Monocytes Absolute Auto 0.4 X10*3/uL (0.1-1.2); Monocytes Percent Auto 11.6 % (2-11); Neutrophils Absolute Auto 1.9 X10*3/uL (2.0-8.3); Neutrophils Percent Auto 58.2 % (45-73); Platelet Count 101 X10*3/uL (160-400); Red Blood Count 3.27 X10*6/uL (4.60-5.80); Red Cell Distribution Width 11.9 % (11.0-16.0); White Blood Count 3.3 X10*3/uL (4.8-10.8)
[2020-09-12 08:05] LABS: Alanine Aminotransferase 25 U/L (0-40); Albumin Level 4.1 g/dL (3.5-5.0); Alkaline Phosphatase 101 U/L (39-117); Anion Gap 10 (12-20); Aspartate Amino Transferase 21 U/L (5-37); Bilirubin Total 0.5 mg/dL (0.0-1.0); Blood Urea Nitrogen 21 mg/dL (9-16); Calcium 9.4 mg/dL (8.4-10.2); Carbon Dioxide 27 mmol/L (22-29); Chloride 107 mmol/L (96-108); Estimated Glomerular Filt Rate > 60; Glucose Random 151 mg/dL (60-115); Magnesium 1.7 mg/dL (1.6-2.6); Phosphorus 3.9 mg/dL (2.7-4.5); Potassium 5.1 mmol/L (3.3-5.1); Sodium 139 mmol/L (135-145); Total Protein 6.8 g/dL (6.5-8.0)
[2020-09-13 10:31] LABS: Tacrolimus Prograf 6.1 mcg/L
[2020-09-15 11:26] LABS: CMV DNA PCR Qn Source Whole Blood; CMV DNA Qn PCR <2.30 log IU/mL (<2.30); CMV DNA Qn Real Time PCR <200 IU/mL (<200)
== END 2020-09-12 06:53 | disposition home or self-care (01) ==
LOC: HO.LABR 06:52
PROVIDERS: PCP Internal Medicine; Visit Provider Internal Medicine
DX: Z94.4 Liver transplant status (principal); Z79.899 Other long term (current) drug therapy
CPT/HCPCS: 36415; 80053; 80197; 83735; 84100; 85025; 87497

== ENCOUNTER 2020-09-18 07:26 | Outpatient (REF) | payer OTHER, SELFPAY ==
[2020-09-18 09:06] LABS: MANUAL DIFF FLAG NO
[2020-09-18 09:12] LABS: Basophils Percent Auto 0.3 % (0-2); Eosinophils Percent Auto 1.3 % (0-4); Hematocrit 29.1 % (42-52); Hemoglobin 10.3 g/dl (14.0-18.0); Imm Gran Abs Auto 0.01 X10*3/uL (0.00-0.03); Imm Gran Pct Auto 0.3 % (0.0-0.4); Lymphocytes Absolute Auto 0.9 X10*3/uL (1.2-4.9); Lymphocytes Percent Auto 30.4 % (20-40); Mean Corpuscular HGB Conc 35.4 g/dl (31.0-36.0); Mean Corpuscular Hemoglobin 30.3 pg (27.0-33.0); Mean Corpuscular Volume 85.6 fL (80-98); Mean Platelet Volume 11.4 fL (9.4-12.4); Monocytes Absolute Auto 0.3 X10*3/uL (0.1-1.2); Monocytes Percent Auto 10.4 % (2-11); Neutrophils Absolute Auto 1.8 X10*3/uL (2.0-8.3); Neutrophils Percent Auto 57.3 % (45-73); Platelet Count 100 X10*3/uL (160-400); Red Cell Distribution Width 11.7 % (11.0-16.0); White Blood Count 3.1 X10*3/uL (4.8-10.8)
[2020-09-18 09:56] LABS: Alanine Aminotransferase 99 U/L (0-40); Albumin Level 4.2 g/dL (3.5-5.0); Alkaline Phosphatase 252 U/L (39-117); Anion Gap 9 (12-20); Aspartate Amino Transferase 28 U/L (5-37); Bilirubin Total 0.3 mg/dL (0.0-1.0); Blood Urea Nitrogen 26 mg/dL (9-16); Calcium 9.7 mg/dL (8.4-10.2); Carbon Dioxide 27 mmol/L (22-29); Chloride 108 mmol/L (96-108); Estimated Glomerular Filt Rate 57; Glucose Random 238 mg/dL (60-115); Magnesium 1.9 mg/dL (1.6-2.6); Phosphorus 3.7 mg/dL (2.7-4.5); Potassium 6.2 mmol/L (3.3-5.1); Sodium 138 mmol/L (135-145); Total Protein 6.9 g/dL (6.5-8.0)
[2020-09-19 05:56] LABS: Tacrolimus Prograf 7.5 mcg/L
[2020-09-21 02:46] LABS: CMV DNA PCR Qn Source Whole Blood; CMV DNA Qn PCR <2.30 log IU/mL (<2.30); CMV DNA Qn Real Time PCR <200 IU/mL (<200)
== END 2020-09-18 07:27 | disposition home or self-care (01) ==
LOC: HO.LABR 07:26
PROVIDERS: PCP Internal Medicine; Visit Provider Internal Medicine
DX: Z94.4 Liver transplant status (principal); Z79.899 Other long term (current) drug therapy
CPT/HCPCS: 36415; 80053; 80197; 83735; 84100; 85025; 87497

== ENCOUNTER 2020-09-18 08:36 | Outpatient (REF) | payer OTHER, SELFPAY | END 2020-09-18 08:37 | disposition home or self-care (01) | LOC: HO.LAB 08:36 | PROVIDERS: PCP Urology; Visit Provider Internal Medicine | DX: Z20.822 Contact with and (suspected) exposure to COVID-19 (principal) | CPT/HCPCS: C9803; U0003; U0005 ==

== ENCOUNTER 2020-09-20 09:16 | Emergency (ER) | payer OTHER, SELFPAY ==
[2020-09-20 09:44] VITALS: BP 159/50; PULSE 65; RESP 16; TEMP 36.4; O2SAT 98; BMI 28.5
--- NOTE | 2020-09-20 09:50 | ED_ITS ---
HPI - General Adult General Chief complaint: Back Pain/Injury Stated complaint: Back Pain Time Seen by Provider: 09/20/20 09:50 Source: patient Limitations: language barrier History of Present Illness HPI narrative: Patient states yesterday while he was in his bathroom partial ceiling tiles filled making him slip and twisting his back. Pain is located in the lower back left greater than right. Patient has longstanding history of back pain. Patient also has a longstanding history of chronic right leg pain from prior surgery. Patient denies any nausea vomiting pain is 7/10. Patient states when he slipped he felt a pull in the muscle. Denies loss of consciousness or hitting his head. Symptoms are [id number]. Related Data Home Medications Medication Instructions Recorded Confirmed cholecalciferol (vitamin D3) 50 50 mcg PO DAILY 07/27/20 07/27/20 mcg (2,000 unit) capsule ferrous sulfate 325 mg (65 mg 325 mg PO DAILY 07/27/20 07/27/20 iron) tablet gabapentin 100 mg capsule 100 mg PO TID 07/27/20 07/27/20 insulin glargine 100 unit/mL (3 10 unit SUBCUT TIDWMEAL ml 07/27/20 07/27/20 mL) subcutaneous pen magnesium oxide 400 mg (241.3 mg 400 mg PO DAILY 07/27/20 07/27/20 magnesium) tablet metformin 1,000 mg tablet 1,000 mg PO BID 07/27/20 07/27/20 omeprazole 20 mg tablet,delayed 20 mg PO DAILY 07/27/20 07/27/20 release prednisone 20 mg tablet 20 mg PO DAILY 07/27/20 07/27/20 sulfamethoxazole 400 1 tab PO 3XW tab 07/27/20 07/27/20 mg-trimethoprim 80 mg tablet sulfamethoxazole 400 1 tab PO BEDTIME 08/03/20 mg-trimethoprim 80 mg tablet tacrolimus 1 mg capsule, 4 mg PO ONCE cap 08/03/20 immediate-release Previous Rx's Medication Instructions Recorded oxycodone 5 mg PO Q8H PRN #10 tab NS 01/31/20 tadalafil 5 mg tablet 5 mg PO DAILY PRN 90 Days #90 tab 08/03/20 methocarbamol 750 mg PO TID PRN #20 tab 09/20/20 Allergies Allergy/AdvReac Type Severity Reaction Status Date / Time No Known Allergies Allergy Verified 07/27/20 08:35 [No Known Allergies*] Review of Systems Constitutional: Constitutional: Denies chills, Denies fever(s) and Denies weakness Cardiovascular: Cardiovascular: Denies chest pain, Denies chest pain at rest, Denies chest pain with activity and Denies dyspnea Respiratory: Respiratory: Denies cough and Denies dyspnea Gastrointestinal: Gastrointestinal: Denies nausea and Denies vomiting Musculoskeletal: Musculoskeletal: Reports back pain Neurologic: Denies paresthesias and Denies weakness Hematologic/Lymphatic: Hematologic/Lymphatic: Denies easy bleeding Allergic/Immunologic: Allergic/Immunologic: Denies urticaria [facility] [place] Past Medical History Attestation statement: The following information was validated with the patient. Medical History Diabetes 1.5, managed as type 2 GERD (gastroesophageal reflux disease) Hx of substance abuse No known health problems Tubular adenoma of colon Surgical History S/P liver transplant Social History Social History Household Members: None Alcohol intake: never Advance Directives: No Advance Directives Information Provided: No Current occupational status: disabled Physical Exam Vital Signs: Vital Signs: Last Vital Signs Temp 97.5 F 09/20/20 09:44 Pulse 65 09/20/20 09:44 Resp 16 09/20/20 09:44 BP 159/50 H 09/20/20 09:44 Pulse Ox 98 09/20/20 09:44 Body Mass Index 28.5 vital signs have been reviewed as normal and appeared to be correct. Blood pressure normal. Heart rate normal. Respiration rate normal. Temperature normal. Oxygen saturation normal. Appearance: Alert. Oriented X3. No acute distress. Head: Normal external exam. Normocephalic. Atraumatic. No Verdugo signs noted. No raccoon eyes noted Eyes: PERRLA. EOMI. Conjunctiva and sclera normal. Eyelids normal. ENT: Pharynx normal. Uvula midline. Moist mucous membranes. Neck: Soft full range of motion, no JVD CVS: Heart regular rate and rhythm no murmurs and rubs Respiratory: Breath sounds are clear to auscultation bilaterally. No accessory muscle use noted. Abdomen: Soft nontender no rebound or guarding positive bowel sounds Back: Positive paraspinal muscle tenderness positive straight leg raise on the left. Skin: Skin warm and dry. Normal skin color. Extremities: No lower extremity edema. Extremities exhibit normal range of motion. Extremities nontender. Neuro: Oriented X 3. No motor deficit. No sensory deficit. Course Course Course Narrative: Differential diagnosis Lumbar strain Lumbar contusion Muscle spasm Chronic back pain Left leg sciatica Symptoms are consistent with muscle skeletal pain. Will treat accordingly Discharge Plan Discharge Clinical Impression: Strain of lumbar region, Sciatica Patient Disposition: Home, Self-Care Instructions: Sciatica (ED), Lower Back Exercises (ED) Additional Instructions: Rest ice Medications as directed Prescriptions: New methocarbamol 750 mg tablet 750 mg PO TID PRN (Reason: pain (scale score 4-6)) Qty: 20 RF: 0 No Action oxycodone 5 mg tablet 5 mg PO Q8H PRN (Reason: pain) Qty: 10 RF: 0 prednisone 20 mg tablet 20 mg PO DAILY RF: 0 sulfamethoxazole-trimethoprim [Bactrim] 400-80 mg tablet 1 tab PO 3XW RF: 0 omeprazole 20 mg tablet,delayed release (DR/EC) 20 mg PO DAILY RF: 0 metformin 1,000 mg tablet 1,000 mg PO BID RF: 0 magnesium oxide [MagOx] 400 mg (241.3 mg magnesium) tablet 400 mg PO DAILY RF: 0 gabapentin 100 mg capsule 100 mg PO TID RF: 0 cholecalciferol (vitamin D3) 50 mcg (2,000 unit) capsule 50 mcg PO DAILY RF: 0 ferrous sulfate 325 mg (65 mg iron) tablet 325 mg PO DAILY RF: 0 Lantus Solostar U-100 Insulin 100 unit/mL (3 mL) insulin pen 10 unit subcut TIDWMEAL RF: 0 tacrolimus [Prograf] 1 mg capsule 4 mg PO ONCE RF: 0 sulfamethoxazole-trimethoprim 400-80 mg tablet 1 tab PO BEDTIME RF: 0 tadalafil 5 mg tablet 5 mg PO DAILY PRN (Reason: sexual activity) 90 Days Qty: 90 RF: 0 Referrals: Agustin Mix MD [Primary Care Provider] - 2 days Interventions: ED Discharge Assessment Last Done: 09/20/20 10:16 Discharge Date/Time: 09/20/20 10:17 Print Language: Kittitian
== END 2020-09-20 10:17 | disposition home or self-care (01) ==
PROVIDERS: Emergency Provider Emergency Medicine; PCP Internal Medicine
DX: M54.42 Lumbago with sciatica, left side (principal); Z79.899 Other long term (current) drug therapy
CPT/HCPCS: 99282

== ENCOUNTER 2020-09-27 06:48 | Outpatient (REF) | payer OTHER, SELFPAY ==
[2020-09-27 07:38] LABS: MANUAL DIFF FLAG NO
[2020-09-27 07:44] LABS: Basophils Percent Auto 0.6 % (0-2); Eosinophils Absolute Auto 0.1 X10*3/uL (0.0-0.4); Eosinophils Percent Auto 1.9 % (0-4); Hematocrit 29.1 % (42-52); Hemoglobin 10.2 g/dl (14.0-18.0); Imm Gran Abs Auto 0.01 X10*3/uL (0.00-0.03); Imm Gran Pct Auto 0.3 % (0.0-0.4); Lymphocytes Absolute Auto 0.9 X10*3/uL (1.2-4.9); Lymphocytes Percent Auto 28.8 % (20-40); Mean Corpuscular HGB Conc 35.1 g/dl (31.0-36.0); Mean Corpuscular Hemoglobin 29.8 pg (27.0-33.0); Mean Corpuscular Volume 85.1 fL (80-98); Mean Platelet Volume 11.4 fL (9.4-12.4); Monocytes Absolute Auto 0.4 X10*3/uL (0.1-1.2); Monocytes Percent Auto 11.3 % (2-11); Neutrophils Absolute Auto 1.8 X10*3/uL (2.0-8.3); Neutrophils Percent Auto 57.1 % (45-73); Platelet Count 106 X10*3/uL (160-400); Red Blood Count 3.42 X10*6/uL (4.60-5.80); White Blood Count 3.2 X10*3/uL (4.8-10.8)
[2020-09-27 08:35] LABS: Alanine Aminotransferase 23 U/L (0-40); Albumin Level 4.3 g/dL (3.5-5.0); Alkaline Phosphatase 142 U/L (39-117); Anion Gap 9 (12-20); Aspartate Amino Transferase 17 U/L (5-37); Bilirubin Total 0.5 mg/dL (0.0-1.0); Blood Urea Nitrogen 29 mg/dL (9-16); Calcium 9.6 mg/dL (8.4-10.2); Carbon Dioxide 26 mmol/L (22-29); Chloride 107 mmol/L (96-108); Estimated Glomerular Filt Rate 59; Glucose Random 177 mg/dL (60-115); Magnesium 1.8 mg/dL (1.6-2.6); Phosphorus 4.5 mg/dL (2.7-4.5); Potassium 5.4 mmol/L (3.3-5.1); Sodium 137 mmol/L (135-145); Total Protein 6.9 g/dL (6.5-8.0)
[2020-09-28 10:12] LABS: Tacrolimus Prograf 7.7 mcg/L
[2020-09-30 05:47] LABS: CMV DNA PCR Qn Source Whole Blood; CMV DNA Qn PCR <2.30 log IU/mL (<2.30); CMV DNA Qn Real Time PCR <200 IU/mL (<200)
== END 2020-09-27 06:49 | disposition home or self-care (01) ==
LOC: HO.LABR 06:48
PROVIDERS: PCP Internal Medicine; Visit Provider Internal Medicine
DX: Z94.4 Liver transplant status (principal); Z79.899 Other long term (current) drug therapy
CPT/HCPCS: 36415; 80053; 80197; 83735; 84100; 85025; 87497

== ENCOUNTER 2020-10-02 07:42 | Outpatient (REF) | payer OTHER, SELFPAY ==
[2020-10-02 08:53] LABS: MANUAL DIFF FLAG NO
[2020-10-02 09:06] LABS: Basophils Percent Auto 0.3 % (0-2); Eosinophils Absolute Auto 0.1 X10*3/uL (0.0-0.4); Eosinophils Percent Auto 1.7 % (0-4); Hematocrit 28.2 % (42-52); Hemoglobin 9.9 g/dl (14.0-18.0); Imm Gran Abs Auto 0.01 X10*3/uL (0.00-0.03); Imm Gran Pct Auto 0.3 % (0.0-0.4); Lymphocytes Absolute Auto 0.9 X10*3/uL (1.2-4.9); Lymphocytes Percent Auto 26.5 % (20-40); Mean Corpuscular HGB Conc 35.1 g/dl (31.0-36.0); Mean Corpuscular Hemoglobin 30.1 pg (27.0-33.0); Mean Corpuscular Volume 85.7 fL (80-98); Mean Platelet Volume 11.3 fL (9.4-12.4); Monocytes Absolute Auto 0.3 X10*3/uL (0.1-1.2); Monocytes Percent Auto 7.9 % (2-11); Neutrophils Absolute Auto 2.3 X10*3/uL (2.0-8.3); Neutrophils Percent Auto 63.3 % (45-73); Platelet Count 103 X10*3/uL (160-400); Red Blood Count 3.29 X10*6/uL (4.60-5.80); Red Cell Distribution Width 12.1 % (11.0-16.0); White Blood Count 3.6 X10*3/uL (4.8-10.8)
[2020-10-02 09:20] LABS: Alanine Aminotransferase 22 U/L (0-40); Albumin Level 4.1 g/dL (3.5-5.0); Alkaline Phosphatase 114 U/L (39-117); Anion Gap 10 (12-20); Aspartate Amino Transferase 22 U/L (5-37); Bilirubin Total 0.6 mg/dL (0.0-1.0); Blood Urea Nitrogen 32 mg/dL (9-16); Calcium 9.2 mg/dL (8.4-10.2); Carbon Dioxide 26 mmol/L (22-29); Chloride 110 mmol/L (96-108); Estimated Glomerular Filt Rate 54; Glucose Random 164 mg/dL (60-115); Magnesium 1.8 mg/dL (1.6-2.6); Phosphorus 3.5 mg/dL (2.7-4.5); Potassium 5.8 mmol/L (3.3-5.1); Sodium 140 mmol/L (135-145); Total Protein 6.6 g/dL (6.5-8.0)
[2020-10-03 07:27] LABS: Tacrolimus Prograf 8.6 mcg/L
[2020-10-04 19:57] LABS: CMV DNA PCR Qn Source Whole Blood; CMV DNA Qn PCR <2.30 log IU/mL (<2.30); CMV DNA Qn Real Time PCR <200 IU/mL (<200)
== END 2020-10-02 07:43 | disposition home or self-care (01) ==
LOC: HO.LABR 07:42
PROVIDERS: PCP Internal Medicine; Visit Provider Internal Medicine
DX: Z94.4 Liver transplant status (principal); Z79.899 Other long term (current) drug therapy
CPT/HCPCS: 36415; 80053; 80197; 83735; 84100; 85025; 87497

== ENCOUNTER 2020-10-11 06:43 | Outpatient (REF) | payer OTHER, SELFPAY ==
[2020-10-11 07:21] LABS: MANUAL DIFF FLAG NO
[2020-10-11 07:26] LABS: Basophils Percent Auto 0.9 % (0-2); Eosinophils Absolute Auto 0.1 X10*3/uL (0.0-0.4); Eosinophils Percent Auto 1.8 % (0-4); Hematocrit 30.4 % (42-52); Hemoglobin 10.6 g/dl (14.0-18.0); Imm Gran Abs Auto 0.01 X10*3/uL (0.00-0.03); Imm Gran Pct Auto 0.3 % (0.0-0.4); Lymphocytes Absolute Auto 0.9 X10*3/uL (1.2-4.9); Lymphocytes Percent Auto 28.5 % (20-40); Mean Corpuscular HGB Conc 34.9 g/dl (31.0-36.0); Mean Corpuscular Hemoglobin 29.8 pg (27.0-33.0); Mean Corpuscular Volume 85.4 fL (80-98); Mean Platelet Volume 10.5 fL (9.4-12.4); Monocytes Absolute Auto 0.4 X10*3/uL (0.1-1.2); Monocytes Percent Auto 11.5 % (2-11); Neutrophils Absolute Auto 1.9 X10*3/uL (2.0-8.3); Platelet Count 107 X10*3/uL (160-400); Red Blood Count 3.56 X10*6/uL (4.60-5.80); White Blood Count 3.3 X10*3/uL (4.8-10.8)
[2020-10-11 07:59] LABS: Alanine Aminotransferase 20 U/L (0-40); Albumin Level 4.4 g/dL (3.5-5.0); Alkaline Phosphatase 103 U/L (39-117); Anion Gap 9 (12-20); Aspartate Amino Transferase 19 U/L (5-37); Bilirubin Total 0.6 mg/dL (0.0-1.0); Blood Urea Nitrogen 30 mg/dL (9-16); Calcium 9.8 mg/dL (8.4-10.2); Carbon Dioxide 27 mmol/L (22-29); Chloride 108 mmol/L (96-108); Estimated Glomerular Filt Rate 58; Glucose Random 188 mg/dL (60-115); Magnesium 1.8 mg/dL (1.6-2.6); Phosphorus 4.3 mg/dL (2.7-4.5); Potassium 5.7 mmol/L (3.3-5.1); Sodium 138 mmol/L (135-145)
[2020-10-12 06:32] LABS: Tacrolimus Prograf 5.6 mcg/L
[2020-10-14 14:17] LABS: CMV DNA PCR Qn Source Plasma; CMV DNA Qn PCR <2.30 log IU/mL (<2.30); CMV DNA Qn Real Time PCR <200 IU/mL (<200)
== END 2020-10-11 06:44 | disposition home or self-care (01) ==
LOC: HO.LABR 06:43
PROVIDERS: PCP Internal Medicine; Visit Provider Internal Medicine
DX: Z94.4 Liver transplant status (principal)
CPT/HCPCS: 36415; 80053; 80197; 83735; 84100; 85025; 87497

== ENCOUNTER 2020-10-16 11:24 | Outpatient (REF) | payer OTHER, SELFPAY ==
--- NOTE | ~2020-10-16 | XR_ITS ---
EXAMINATION: XR LUMBOSACRAL SPINE WITH OBLIQUES CLINICAL INFORMATION: Lumbago. COMPARISON: CT 07/19/2020. X-ray 01/31/2020. TECHNIQUE: AP, both oblique, and lateral views of the lumbar spine. Lateral view of the lumbosacral junction. FINDINGS: Normal alignment and lumbar lordosis. No spondylolysis or spondylolisthesis. Mild multilevel degenerative disc disease with small endplate osteophytes, not significantly changed. No acute osseous abnormality. Clips in the right upper quadrant. XR/XR lumbar spine 4V min IMPRESSION: Mild multilevel degenerative disc disease. Normal alignment. No change.
== END 2020-10-16 11:25 | disposition home or self-care (01) ==
LOC: HO.XRAY 11:24
PROVIDERS: PCP Internal Medicine; Referring Provider Internal Medicine; Visit Provider Emergency Medicine
DX: M54.42 Lumbago with sciatica, left side (principal); Z91.81 History of falling
CPT/HCPCS: 72110

== ENCOUNTER 2020-10-18 06:38 | Outpatient (REF) | payer OTHER, SELFPAY ==
[2020-10-18 07:42] LABS: MANUAL DIFF FLAG NO
[2020-10-18 07:45] LABS: Basophils Percent Auto 0.5 % (0-2); Eosinophils Absolute Auto 0.1 X10*3/uL (0.0-0.4); Eosinophils Percent Auto 2.1 % (0-4); Hematocrit 31.5 % (42-52); Hemoglobin 11.3 g/dl (14.0-18.0); Imm Gran Abs Auto 0.02 X10*3/uL (0.00-0.03); Imm Gran Pct Auto 0.5 % (0.0-0.4); Lymphocytes Absolute Auto 1.1 X10*3/uL (1.2-4.9); Lymphocytes Percent Auto 29.4 % (20-40); Mean Corpuscular HGB Conc 35.9 g/dl (31.0-36.0); Mean Corpuscular Hemoglobin 30.2 pg (27.0-33.0); Mean Corpuscular Volume 84.2 fL (80-98); Mean Platelet Volume 10.4 fL (9.4-12.4); Monocytes Absolute Auto 0.3 X10*3/uL (0.1-1.2); Neutrophils Absolute Auto 2.2 X10*3/uL (2.0-8.3); Neutrophils Percent Auto 58.5 % (45-73); Platelet Count 106 X10*3/uL (160-400); Red Blood Count 3.74 X10*6/uL (4.60-5.80); Red Cell Distribution Width 12.1 % (11.0-16.0); White Blood Count 3.8 X10*3/uL (4.8-10.8)
[2020-10-18 08:26] LABS: Alanine Aminotransferase 22 U/L (0-40); Albumin Level 4.5 g/dL (3.5-5.0); Alkaline Phosphatase 106 U/L (39-117); Anion Gap 12 (12-20); Aspartate Amino Transferase 18 U/L (5-37); Bilirubin Total 0.8 mg/dL (0.0-1.0); Blood Urea Nitrogen 32 mg/dL (9-16); Calcium 9.6 mg/dL (8.4-10.2); Carbon Dioxide 22 mmol/L (22-29); Chloride 110 mmol/L (96-108); Estimated Glomerular Filt Rate 48; Glucose Random 210 mg/dL (60-115); Magnesium 1.8 mg/dL (1.6-2.6); Phosphorus 3.3 mg/dL (2.7-4.5); Potassium 5.5 mmol/L (3.3-5.1); Sodium 138 mmol/L (135-145); Total Protein 7.3 g/dL (6.5-8.0)
[2020-10-19 08:17] LABS: Tacrolimus Prograf 6.1 mcg/L
[2020-10-21 12:01] LABS: CMV DNA PCR Qn Source Whole Blood; CMV DNA Qn PCR <2.30 log IU/mL (<2.30); CMV DNA Qn Real Time PCR <200 IU/mL (<200)
== END 2020-10-18 06:39 | disposition home or self-care (01) ==
LOC: HO.LABR 06:38
PROVIDERS: PCP Internal Medicine; Visit Provider Internal Medicine
DX: Z94.4 Liver transplant status (principal)
CPT/HCPCS: 36415; 80053; 80197; 83735; 84100; 85025; 87497

== ENCOUNTER 2020-10-25 07:34 | Outpatient (REF) | payer OTHER, SELFPAY ==
[2020-10-25 08:16] LABS: MANUAL DIFF FLAG NO
[2020-10-25 08:20] LABS: Basophils Percent Auto 0.8 % (0-2); Eosinophils Absolute Auto 0.1 X10*3/uL (0.0-0.4); Eosinophils Percent Auto 1.7 % (0-4); Hematocrit 30.2 % (42-52); Hemoglobin 10.7 g/dl (14.0-18.0); Imm Gran Abs Auto 0.01 X10*3/uL (0.00-0.03); Imm Gran Pct Auto 0.3 % (0.0-0.4); Lymphocytes Absolute Auto 1.2 X10*3/uL (1.2-4.9); Lymphocytes Percent Auto 34.1 % (20-40); Mean Corpuscular HGB Conc 35.4 g/dl (31.0-36.0); Mean Corpuscular Hemoglobin 29.9 pg (27.0-33.0); Mean Corpuscular Volume 84.4 fL (80-98); Mean Platelet Volume 11.1 fL (9.4-12.4); Monocytes Absolute Auto 0.3 X10*3/uL (0.1-1.2); Monocytes Percent Auto 9.6 % (2-11); Neutrophils Absolute Auto 1.9 X10*3/uL (2.0-8.3); Neutrophils Percent Auto 53.5 % (45-73); Platelet Count 103 X10*3/uL (160-400); Red Blood Count 3.58 X10*6/uL (4.60-5.80); Red Cell Distribution Width 12.4 % (11.0-16.0); White Blood Count 3.6 X10*3/uL (4.8-10.8)
[2020-10-25 08:45] LABS: Alanine Aminotransferase 22 U/L (0-40); Albumin Level 4.2 g/dL (3.5-5.0); Alkaline Phosphatase 88 U/L (39-117); Anion Gap 11 (12-20); Aspartate Amino Transferase 19 U/L (5-37); Bilirubin Total 0.5 mg/dL (0.0-1.0); Blood Urea Nitrogen 26 mg/dL (9-16); Calcium 9.5 mg/dL (8.4-10.2); Carbon Dioxide 22 mmol/L (22-29); Chloride 110 mmol/L (96-108); Estimated Glomerular Filt Rate 52; Glucose Random 219 mg/dL (60-115); Magnesium 1.5 mg/dL (1.6-2.6); Phosphorus 3.7 mg/dL (2.7-4.5); Potassium 5.3 mmol/L (3.3-5.1); Sodium 138 mmol/L (135-145); Total Protein 6.9 g/dL (6.5-8.0)
[2020-10-26 23:01] LABS: Tacrolimus Prograf 8.5 mcg/L
[2020-10-29 03:32] LABS: CMV DNA PCR Qn Source Whole Blood; CMV DNA Qn PCR <2.30 log IU/mL (<2.30); CMV DNA Qn Real Time PCR <200 IU/mL (<200)
== END 2020-10-25 07:35 | disposition home or self-care (01) ==
LOC: HO.LABR 07:34
PROVIDERS: PCP Internal Medicine; Visit Provider Internal Medicine
DX: Z94.4 Liver transplant status (principal)
CPT/HCPCS: 36415; 80053; 80197; 83735; 84100; 85025; 87497

== ENCOUNTER 2020-11-01 07:50 | Outpatient (REF) | payer OTHER, SELFPAY ==
[2020-11-01 08:29] LABS: MANUAL DIFF FLAG NO
[2020-11-01 08:33] LABS: Basophils Percent Auto 0.6 % (0-2); Eosinophils Absolute Auto 0.1 X10*3/uL (0.0-0.4); Eosinophils Percent Auto 3.8 % (0-4); Hematocrit 30.3 % (42-52); Hemoglobin 10.6 g/dl (14.0-18.0); Imm Gran Abs Auto 0.01 X10*3/uL (0.00-0.03); Imm Gran Pct Auto 0.3 % (0.0-0.4); Lymphocytes Percent Auto 30.1 % (20-40); Mean Corpuscular Hemoglobin 29.9 pg (27.0-33.0); Mean Corpuscular Volume 85.6 fL (80-98); Mean Platelet Volume 10.5 fL (9.4-12.4); Monocytes Absolute Auto 0.4 X10*3/uL (0.1-1.2); Monocytes Percent Auto 12.9 % (2-11); Neutrophils Absolute Auto 1.7 X10*3/uL (2.0-8.3); Neutrophils Percent Auto 52.3 % (45-73); Platelet Count 108 X10*3/uL (160-400); Red Blood Count 3.54 X10*6/uL (4.60-5.80); Red Cell Distribution Width 12.4 % (11.0-16.0); White Blood Count 3.2 X10*3/uL (4.8-10.8)
[2020-11-01 08:43] LABS: Estimated Average Glucose 154 mg/dL; Hemoglobin A1C 150.8629 umol/L
[2020-11-01 09:16] LABS: Alanine Aminotransferase 36 U/L (0-40); Albumin Level 4.3 g/dL (3.5-5.0); Alkaline Phosphatase 103 U/L (39-117); Anion Gap 13 (12-20); Aspartate Amino Transferase 35 U/L (5-37); Bilirubin Total 0.6 mg/dL (0.0-1.0); Blood Urea Nitrogen 27 mg/dL (9-16); Calcium 9.7 mg/dL (8.4-10.2); Carbon Dioxide 25 mmol/L (22-29); Chloride 106 mmol/L (96-108); Estimated Glomerular Filt Rate 53; Glucose Random 205 mg/dL (60-115); Magnesium 1.7 mg/dL (1.6-2.6); Phosphorus 4.2 mg/dL (2.7-4.5); Sodium 139 mmol/L (135-145); Total Protein 7.2 g/dL (6.5-8.0)
[2020-11-01 09:17] LABS: Cholesterol 160 mg/dL; HDL Cholesterol 40 mg/dL; LDL Cholesterol Calculated 105 mg/dl; Triglycerides 77 mg/dL
[2020-11-01 09:28] LABS: Creatinine Urine 159.04 mg/dL
[2020-11-02 18:37] LABS: Cytomegalovirus Ab IgM <30.00 AU/mL
[2020-11-02 19:27] LABS: Tacrolimus Prograf 6.3 mcg/L
== END 2020-11-01 07:51 | disposition home or self-care (01) ==
LOC: HO.LABR 07:50
PROVIDERS: Absent Provider Internal Medicine; PCP Internal Medicine; Visit Provider Internal Medicine
DX: E78.00 Pure hypercholesterolemia, unspecified (principal); E11.9 Type 2 diabetes mellitus without complications
CPT/HCPCS: 36415; 80053; 80061; 80197; 82043; 83036; 83735; 84100; 85025; 86644; 86645

== ENCOUNTER 2020-11-08 06:28 | Outpatient (REF) | payer OTHER, SELFPAY ==
[2020-11-08 08:37] LABS: MANUAL DIFF FLAG NO
[2020-11-08 08:46] LABS: Basophils Percent Auto 1.3 % (0-2); Eosinophils Absolute Auto 0.1 X10*3/uL (0.0-0.4); Hematocrit 31.7 % (42-52); Hemoglobin 10.8 g/dl (14.0-18.0); Imm Gran Abs Auto 0.01 X10*3/uL (0.00-0.03); Imm Gran Pct Auto 0.3 % (0.0-0.4); Lymphocytes Percent Auto 33.2 % (20-40); Mean Corpuscular HGB Conc 34.1 g/dl (31.0-36.0); Mean Corpuscular Hemoglobin 29.4 pg (27.0-33.0); Mean Corpuscular Volume 86.4 fL (80-98); Mean Platelet Volume 11.3 fL (9.4-12.4); Monocytes Absolute Auto 0.3 X10*3/uL (0.1-1.2); Monocytes Percent Auto 11.4 % (2-11); Neutrophils Absolute Auto 1.5 X10*3/uL (2.0-8.3); Neutrophils Percent Auto 50.8 % (45-73); Platelet Count 138 X10*3/uL (160-400); Red Blood Count 3.67 X10*6/uL (4.60-5.80); Red Cell Distribution Width 12.4 % (11.0-16.0)
[2020-11-08 09:38] LABS: Alanine Aminotransferase 25 U/L (0-40); Albumin Level 4.2 g/dL (3.5-5.0); Alkaline Phosphatase 107 U/L (39-117); Anion Gap 11 (12-20); Aspartate Amino Transferase 19 U/L (5-37); Bilirubin Total 0.5 mg/dL (0.0-1.0); Blood Urea Nitrogen 24 mg/dL (9-16); Calcium 9.8 mg/dL (8.4-10.2); Carbon Dioxide 26 mmol/L (22-29); Chloride 107 mmol/L (96-108); Estimated Glomerular Filt Rate 55; Glucose Random 205 mg/dL (60-115); Magnesium 1.7 mg/dL (1.6-2.6); Phosphorus 3.6 mg/dL (2.7-4.5); Potassium 5.4 mmol/L (3.3-5.1); Sodium 139 mmol/L (135-145); Total Protein 6.9 g/dL (6.5-8.0)
[2020-11-09 09:22] LABS: Tacrolimus Prograf 7.5 mcg/L
[2020-11-12 14:31] LABS: CMV DNA PCR Qn Source Whole Blood; CMV DNA Qn PCR <2.30 log IU/mL (<2.30); CMV DNA Qn Real Time PCR <200 IU/mL (<200)
== END 2020-11-08 06:29 | disposition home or self-care (01) ==
LOC: HO.LABR 06:28
PROVIDERS: PCP Internal Medicine; Visit Provider Internal Medicine
DX: Z94.4 Liver transplant status (principal); Z79.899 Other long term (current) drug therapy
CPT/HCPCS: 36415; 80053; 80197; 83735; 84100; 85025; 87497

== ENCOUNTER 2020-11-15 06:54 | Outpatient (REF) | payer OTHER, SELFPAY ==
[2020-11-15 07:47] LABS: MANUAL DIFF FLAG NO
[2020-11-15 07:59] LABS: Basophils Percent Auto 0.9 % (0-2); Eosinophils Absolute Auto 0.1 X10*3/uL (0.0-0.4); Eosinophils Percent Auto 3.4 % (0-4); Hematocrit 31.3 % (42-52); Hemoglobin 10.9 g/dl (14.0-18.0); Imm Gran Abs Auto 0.01 X10*3/uL (0.00-0.03); Imm Gran Pct Auto 0.3 % (0.0-0.4); Lymphocytes Absolute Auto 1.1 X10*3/uL (1.2-4.9); Lymphocytes Percent Auto 31.9 % (20-40); Mean Corpuscular HGB Conc 34.8 g/dl (31.0-36.0); Mean Corpuscular Hemoglobin 29.4 pg (27.0-33.0); Mean Corpuscular Volume 84.4 fL (80-98); Mean Platelet Volume 11.3 fL (9.4-12.4); Monocytes Absolute Auto 0.3 X10*3/uL (0.1-1.2); Monocytes Percent Auto 9.1 % (2-11); Neutrophils Absolute Auto 1.9 X10*3/uL (2.0-8.3); Neutrophils Percent Auto 54.4 % (45-73); Platelet Count 134 X10*3/uL (160-400); Red Blood Count 3.71 X10*6/uL (4.60-5.80); Red Cell Distribution Width 12.5 % (11.0-16.0); White Blood Count 3.5 X10*3/uL (4.8-10.8)
[2020-11-15 08:14] LABS: Alanine Aminotransferase 26 U/L (0-40); Albumin Level 4.3 g/dL (3.5-5.0); Alkaline Phosphatase 98 U/L (39-117); Anion Gap 10 (12-20); Aspartate Amino Transferase 19 U/L (5-37); Bilirubin Total 0.6 mg/dL (0.0-1.0); Blood Urea Nitrogen 29 mg/dL (9-16); Calcium 9.8 mg/dL (8.4-10.2); Carbon Dioxide 24 mmol/L (22-29); Chloride 109 mmol/L (96-108); Estimated Glomerular Filt Rate 52; Glucose Random 104 mg/dL (60-115); Magnesium 1.5 mg/dL (1.6-2.6); Phosphorus 3.5 mg/dL (2.7-4.5); Potassium 4.6 mmol/L (3.3-5.1); Sodium 138 mmol/L (135-145); Total Protein 7.1 g/dL (6.5-8.0)
[2020-11-16 09:56] LABS: Tacrolimus Prograf 6.7 mcg/L
[2020-11-20 15:57] LABS: CMV DNA PCR Qn Source Whole Blood; CMV DNA Qn PCR <2.30 log IU/mL (<2.30); CMV DNA Qn Real Time PCR <200 IU/mL (<200)
== END 2020-11-15 06:55 | disposition home or self-care (01) ==
LOC: HO.LABR 06:54
PROVIDERS: PCP Internal Medicine; Visit Provider Internal Medicine
DX: Z94.4 Liver transplant status (principal); Z79.899 Other long term (current) drug therapy
CPT/HCPCS: 36415; 80053; 80197; 83735; 84100; 85025; 87497

== ENCOUNTER 2020-11-23 08:00 | Outpatient (REF) | payer OTHER, SELFPAY ==
[2020-11-23 08:29] LABS: MANUAL DIFF FLAG NO
[2020-11-23 08:33] LABS: Basophils Percent Auto 0.6 % (0-2); Eosinophils Absolute Auto 0.2 X10*3/uL (0.0-0.4); Eosinophils Percent Auto 4.9 % (0-4); Hemoglobin 10.6 g/dl (14.0-18.0); Imm Gran Abs Auto 0.02 X10*3/uL (0.00-0.03); Imm Gran Pct Auto 0.6 % (0.0-0.4); Lymphocytes Absolute Auto 0.9 X10*3/uL (1.2-4.9); Lymphocytes Percent Auto 28.4 % (20-40); Mean Corpuscular HGB Conc 35.3 g/dl (31.0-36.0); Mean Corpuscular Hemoglobin 29.5 pg (27.0-33.0); Mean Corpuscular Volume 83.6 fL (80-98); Mean Platelet Volume 10.4 fL (9.4-12.4); Monocytes Absolute Auto 0.3 X10*3/uL (0.1-1.2); Monocytes Percent Auto 10.2 % (2-11); Neutrophils Absolute Auto 1.8 X10*3/uL (2.0-8.3); Neutrophils Percent Auto 55.3 % (45-73); Platelet Count 108 X10*3/uL (160-400); Red Blood Count 3.59 X10*6/uL (4.60-5.80); Red Cell Distribution Width 12.5 % (11.0-16.0); White Blood Count 3.2 X10*3/uL (4.8-10.8)
[2020-11-23 09:02] LABS: Alanine Aminotransferase 19 U/L (0-40); Albumin Level 4.2 g/dL (3.5-5.0); Alkaline Phosphatase 101 U/L (39-117); Anion Gap 11 (12-20); Aspartate Amino Transferase 18 U/L (5-37); Bilirubin Total 0.5 mg/dL (0.0-1.0); Blood Urea Nitrogen 25 mg/dL (9-16); Calcium 9.2 mg/dL (8.4-10.2); Carbon Dioxide 25 mmol/L (22-29); Chloride 108 mmol/L (96-108); Estimated Glomerular Filt Rate 51; Glucose Random 171 mg/dL (60-115); Magnesium 1.7 mg/dL (1.6-2.6); Phosphorus 3.8 mg/dL (2.7-4.5); Potassium 5.2 mmol/L (3.3-5.1); Sodium 139 mmol/L (135-145); Total Protein 6.9 g/dL (6.5-8.0)
[2020-11-24 09:46] LABS: Tacrolimus Prograf 8.8 mcg/L
[2020-11-28 03:46] LABS: CMV DNA PCR Qn Source Whole Blood; CMV DNA Qn PCR <2.30 log IU/mL (<2.30); CMV DNA Qn Real Time PCR <200 IU/mL (<200)
== END 2020-11-23 08:01 | disposition home or self-care (01) ==
LOC: HO.LABR 08:00
PROVIDERS: PCP Internal Medicine; Visit Provider Internal Medicine
DX: Z94.4 Liver transplant status (principal); Z79.899 Other long term (current) drug therapy
CPT/HCPCS: 36415; 80053; 80197; 83735; 84100; 85025; 87497

== ENCOUNTER 2020-11-29 08:48 | Outpatient (REF) | payer OTHER, SELFPAY ==
[2020-11-29 09:52] LABS: MANUAL DIFF FLAG NO
[2020-11-29 10:00] LABS: Basophils Percent Auto 0.6 % (0-2); Eosinophils Absolute Auto 0.1 X10*3/uL (0.0-0.4); Eosinophils Percent Auto 3.1 % (0-4); Hematocrit 31.6 % (42-52); Hemoglobin 11.2 g/dl (14.0-18.0); Imm Gran Abs Auto 0.03 X10*3/uL (0.00-0.03); Imm Gran Pct Auto 0.8 % (0.0-0.4); Lymphocytes Absolute Auto 1.1 X10*3/uL (1.2-4.9); Mean Corpuscular HGB Conc 35.4 g/dl (31.0-36.0); Mean Corpuscular Hemoglobin 29.9 pg (27.0-33.0); Mean Corpuscular Volume 84.5 fL (80-98); Mean Platelet Volume 11.7 fL (9.4-12.4); Monocytes Absolute Auto 0.3 X10*3/uL (0.1-1.2); Monocytes Percent Auto 8.7 % (2-11); Neutrophils Percent Auto 56.8 % (45-73); Platelet Count 119 X10*3/uL (160-400); Red Blood Count 3.74 X10*6/uL (4.60-5.80); Red Cell Distribution Width 12.9 % (11.0-16.0); White Blood Count 3.6 X10*3/uL (4.8-10.8)
[2020-11-29 10:20] LABS: Alanine Aminotransferase 20 U/L (0-40); Albumin Level 4.3 g/dL (3.5-5.0); Alkaline Phosphatase 86 U/L (39-117); Anion Gap 10 (12-20); Aspartate Amino Transferase 15 U/L (5-37); Bilirubin Total 0.5 mg/dL (0.0-1.0); Blood Urea Nitrogen 27 mg/dL (9-16); Calcium 9.5 mg/dL (8.4-10.2); Carbon Dioxide 27 mmol/L (22-29); Chloride 106 mmol/L (96-108); Estimated Glomerular Filt Rate 54; Glucose Random 218 mg/dL (60-115); Magnesium 1.6 mg/dL (1.6-2.6); Phosphorus 3.5 mg/dL (2.7-4.5); Potassium 5.2 mmol/L (3.3-5.1); Sodium 138 mmol/L (135-145)
[2020-11-30 11:31] LABS: Tacrolimus Prograf 5.1 mcg/L
[2020-12-02 18:12] LABS: CMV DNA PCR Qn Source Whole Blood; CMV DNA Qn PCR <2.30 log IU/mL (<2.30); CMV DNA Qn Real Time PCR <200 IU/mL (<200)
== END 2020-11-29 08:49 | disposition home or self-care (01) ==
LOC: HO.LABR 08:48
PROVIDERS: PCP Internal Medicine; Visit Provider Internal Medicine
DX: Z94.4 Liver transplant status (principal); Z79.899 Other long term (current) drug therapy
CPT/HCPCS: 36415; 80053; 80197; 83735; 84100; 85025; 87497

== ENCOUNTER 2020-12-06 08:26 | Outpatient (REF) | payer OTHER, SELFPAY ==
[2020-12-06 09:42] LABS: MANUAL DIFF FLAG NO
[2020-12-06 09:50] LABS: Basophils Percent Auto 0.8 % (0-2); Eosinophils Absolute Auto 0.1 X10*3/uL (0.0-0.4); Eosinophils Percent Auto 2.2 % (0-4); Hematocrit 31.3 % (42-52); Hemoglobin 10.8 g/dl (14.0-18.0); Imm Gran Abs Auto 0.01 X10*3/uL (0.00-0.03); Imm Gran Pct Auto 0.3 % (0.0-0.4); Lymphocytes Absolute Auto 1.1 X10*3/uL (1.2-4.9); Lymphocytes Percent Auto 30.4 % (20-40); Mean Corpuscular HGB Conc 34.5 g/dl (31.0-36.0); Mean Corpuscular Hemoglobin 29.6 pg (27.0-33.0); Mean Corpuscular Volume 85.8 fL (80-98); Mean Platelet Volume 11.6 fL (9.4-12.4); Monocytes Absolute Auto 0.5 X10*3/uL (0.1-1.2); Monocytes Percent Auto 13.7 % (2-11); Neutrophils Percent Auto 52.6 % (45-73); Platelet Count 110 X10*3/uL (160-400); Red Blood Count 3.65 X10*6/uL (4.60-5.80); Red Cell Distribution Width 12.7 % (11.0-16.0); White Blood Count 3.7 X10*3/uL (4.8-10.8)
[2020-12-06 10:10] LABS: Alanine Aminotransferase 62 U/L (0-40); Albumin Level 4.2 g/dL (3.5-5.0); Alkaline Phosphatase 118 U/L (39-117); Anion Gap 10 (12-20); Aspartate Amino Transferase 23 U/L (5-37); Bilirubin Total 0.4 mg/dL (0.0-1.0); Blood Urea Nitrogen 27 mg/dL (9-16); Calcium 9.3 mg/dL (8.4-10.2); Carbon Dioxide 27 mmol/L (22-29); Chloride 106 mmol/L (96-108); Estimated Glomerular Filt Rate 57; Glucose Random 191 mg/dL (60-115); Magnesium 1.6 mg/dL (1.6-2.6); Phosphorus 3.7 mg/dL (2.7-4.5); Potassium 4.8 mmol/L (3.3-5.1); Sodium 138 mmol/L (135-145); Total Protein 6.6 g/dL (6.5-8.0)
[2020-12-07 09:22] LABS: Tacrolimus Prograf 5.1 mcg/L
[2020-12-09 05:01] LABS: CMV DNA PCR Qn Source Whole Blood; CMV DNA Qn PCR <2.30 log IU/mL (<2.30); CMV DNA Qn Real Time PCR <200 IU/mL (<200)
== END 2020-12-06 08:27 | disposition home or self-care (01) ==
LOC: HO.LABR 08:26
PROVIDERS: PCP Internal Medicine; Visit Provider Internal Medicine
DX: Z94.4 Liver transplant status (principal); Z79.899 Other long term (current) drug therapy
CPT/HCPCS: 36415; 80053; 80197; 83735; 84100; 85025; 87497

== ENCOUNTER 2020-12-13 08:33 | Outpatient (REF) | payer OTHER, SELFPAY ==
[2020-12-13 09:06] LABS: Imm Gran Abs Auto 0.01 X10*3/uL (0.00-0.03); Imm Gran Pct Auto 0.2 % (0.0-0.4); Lymphocytes Percent Auto 26.5 % (20-40); MANUAL DIFF FLAG SCAN; Mean Corpuscular Volume 84.9 fL (80-98); Monocytes Absolute Auto 0.6 X10*3/uL (0.1-1.2); PLT CLUMP 1; SCAN SMEAR FLAG 1
[2020-12-13 09:09] LABS: Basophils Percent Auto 0.4 % (0-2); Eosinophils Absolute Auto 0.1 X10*3/uL (0.0-0.4); Eosinophils Percent Auto 1.8 % (0-4); Hematocrit 31.5 % (42-52); Hemoglobin 11.1 g/dl (14.0-18.0); Lymphocytes Absolute Auto 1.2 X10*3/uL (1.2-4.9); Mean Corpuscular HGB Conc 35.2 g/dl (31.0-36.0); Mean Corpuscular Hemoglobin 29.9 pg (27.0-33.0); Mean Platelet Volume 11.6 fL (9.4-12.4); Monocytes Percent Auto 13.6 % (2-11); Neutrophils Absolute Auto 2.6 X10*3/uL (2.0-8.3); Neutrophils Percent Auto 57.5 % (45-73); Red Blood Count 3.71 X10*6/uL (4.60-5.80); Red Cell Distribution Width 12.4 % (11.0-16.0); White Blood Count 4.6 X10*3/uL (4.8-10.8)
[2020-12-13 09:10] LABS: Platelet Count 99 X10*3/uL (160-400)
[2020-12-13 09:32] LABS: Alanine Aminotransferase 24 U/L (0-40); Albumin Level 4.3 g/dL (3.5-5.0); Alkaline Phosphatase 91 U/L (39-117); Anion Gap 10 (12-20); Aspartate Amino Transferase 14 U/L (5-37); Bilirubin Total 0.7 mg/dL (0.0-1.0); Blood Urea Nitrogen 25 mg/dL (9-16); Calcium 9.6 mg/dL (8.4-10.2); Carbon Dioxide 25 mmol/L (22-29); Chloride 107 mmol/L (96-108); Estimated Glomerular Filt Rate > 60; Glucose Random 189 mg/dL (60-115); Magnesium 1.9 mg/dL (1.6-2.6); Phosphorus 3.5 mg/dL (2.7-4.5); Potassium 5.1 mmol/L (3.3-5.1); Sodium 137 mmol/L (135-145); Total Protein 7.1 g/dL (6.5-8.0)
[2020-12-14 10:32] LABS: Tacrolimus Prograf 4.8 mcg/L
[2020-12-18 11:11] LABS: CMV DNA PCR Qn Source Whole Blood; CMV DNA Qn PCR <2.30 log IU/mL (<2.30); CMV DNA Qn Real Time PCR <200 IU/mL (<200)
== END 2020-12-13 08:34 | disposition home or self-care (01) ==
LOC: HO.LABR 08:33
PROVIDERS: PCP Internal Medicine; Visit Provider Internal Medicine
DX: Z94.4 Liver transplant status (principal); Z79.899 Other long term (current) drug therapy
CPT/HCPCS: 36415; 80053; 80197; 83735; 84100; 85025; 87497

== ENCOUNTER 2020-12-21 07:58 | Outpatient (REF) | payer OTHER, SELFPAY ==
[2020-12-21 08:41] LABS: MANUAL DIFF FLAG NO
[2020-12-21 08:44] LABS: Basophils Percent Auto 0.5 % (0-2); Eosinophils Absolute Auto 0.1 X10*3/uL (0.0-0.4); Eosinophils Percent Auto 2.5 % (0-4); Hematocrit 30.7 % (42-52); Hemoglobin 10.9 g/dl (14.0-18.0); Imm Gran Abs Auto 0.01 X10*3/uL (0.00-0.03); Imm Gran Pct Auto 0.3 % (0.0-0.4); Lymphocytes Absolute Auto 1.3 X10*3/uL (1.2-4.9); Lymphocytes Percent Auto 32.3 % (20-40); Mean Corpuscular HGB Conc 35.5 g/dl (31.0-36.0); Mean Corpuscular Hemoglobin 30.4 pg (27.0-33.0); Mean Corpuscular Volume 85.5 fL (80-98); Mean Platelet Volume 10.6 fL (9.4-12.4); Monocytes Absolute Auto 0.5 X10*3/uL (0.1-1.2); Monocytes Percent Auto 12.5 % (2-11); Neutrophils Percent Auto 51.9 % (45-73); Platelet Count 96 X10*3/uL (160-400); Red Blood Count 3.59 X10*6/uL (4.60-5.80); Red Cell Distribution Width 12.3 % (11.0-16.0); White Blood Count 3.9 X10*3/uL (4.8-10.8)
[2020-12-21 09:13] LABS: Alanine Aminotransferase 19 U/L (0-40); Albumin Level 4.1 g/dL (3.5-5.0); Alkaline Phosphatase 83 U/L (39-117); Anion Gap 9 (12-20); Aspartate Amino Transferase 13 U/L (5-37); Bilirubin Total 0.4 mg/dL (0.0-1.0); Blood Urea Nitrogen 21 mg/dL (9-16); Calcium 9.6 mg/dL (8.4-10.2); Carbon Dioxide 26 mmol/L (22-29); Chloride 107 mmol/L (96-108); Estimated Glomerular Filt Rate > 60; Glucose Random 163 mg/dL (60-115); Magnesium 1.9 mg/dL (1.6-2.6); Phosphorus 3.6 mg/dL (2.7-4.5); Potassium 5.4 mmol/L (3.3-5.1); Sodium 137 mmol/L (135-145); Total Protein 6.6 g/dL (6.5-8.0)
[2020-12-22 09:57] LABS: Tacrolimus Prograf 7.3 mcg/L
[2020-12-25 08:22] LABS: CMV DNA PCR Qn Source Whole Blood; CMV DNA Qn PCR <2.30 log IU/mL (<2.30); CMV DNA Qn Real Time PCR <200 IU/mL (<200)
== END 2020-12-21 07:59 | disposition home or self-care (01) ==
LOC: HO.LABR 07:58
PROVIDERS: PCP Internal Medicine; Visit Provider Internal Medicine
DX: Z94.4 Liver transplant status (principal); Z79.899 Other long term (current) drug therapy
CPT/HCPCS: 36415; 80053; 80197; 83735; 84100; 85025; 87497

== ENCOUNTER 2020-12-25 07:20 | Emergency (ER) | payer OTHER, SELFPAY ==
[2020-12-25 08:25] VITALS: BP 157/97; PULSE 61; RESP 18; TEMP 36.3; O2SAT 97; BMI 31.1
--- NOTE | 2020-12-25 08:57 | ED.BACK ---
HPI - Back Pain/Injury General Chief Complaint: Back Pain/Injury Stated Complaint: back pain Time Seen by Provider: 12/25/20 08:56 Source: patient Mode of arrival: ambulatory Limitations: no limitations History of Present Illness HPI Narrative: 55-year-old male history of chronic low back pain started many years ago. Patient been having worsening of back pain for the past 3 days, no recent trauma or injury to the back, no fever chills, no urinary incontinence, no radiation of the back pain. Patient was seen by his PCP who prescribed anti inflammatory medication patient stated that is not working. Pain is more with movement and walking, nothing to relieve the pain. Related Data Home Medications Medication Instructions Recorded Confirmed cholecalciferol (vitamin D3) 50 50 mcg PO DAILY 07/27/20 07/27/20 mcg (2,000 unit) capsule ferrous sulfate 325 mg (65 mg 325 mg PO DAILY 07/27/20 07/27/20 iron) tablet gabapentin 100 mg capsule 100 mg PO TID 07/27/20 07/27/20 insulin glargine 100 unit/mL (3 10 unit SUBCUT TIDWMEAL ml 07/27/20 07/27/20 mL) subcutaneous pen (Lantus Solostar U-100 Insulin) magnesium oxide 400 mg (241.3 mg 400 mg PO DAILY 07/27/20 07/27/20 magnesium) tablet (MagOx) metformin 1,000 mg tablet 1,000 mg PO BID 07/27/20 07/27/20 omeprazole 20 mg tablet,delayed 20 mg PO DAILY 07/27/20 07/27/20 release prednisone 20 mg tablet 20 mg PO DAILY 07/27/20 07/27/20 sulfamethoxazole 400 1 tab PO 3XW tab 07/27/20 07/27/20 mg-trimethoprim 80 mg tablet (Bactrim) sulfamethoxazole 400 1 tab PO BEDTIME 08/03/20 mg-trimethoprim 80 mg tablet tacrolimus 1 mg capsule, 4 mg PO ONCE cap 08/03/20 immediate-release (Prograf) Previous Rx's Medication Instructions Recorded oxycodone 5 mg tablet 5 mg PO Q8H PRN #10 tab NS 01/31/20 methocarbamol 750 mg tablet 750 mg PO TID PRN #20 tab 09/20/20 tadalafil 5 mg tablet 5 mg PO DAILY PRN 90 Days #90 tab 11/14/20 Allergies Allergy/AdvReac Type Severity Reaction Status Date / Time No Known Allergies Allergy Verified 07/27/20 08:35 [No Known Allergies*] Review of Systems Review of Systems: All other systems are reviewed and are negative Constitutional: Reports as per HPI and Reports no additional constitutional complaints Eyes: Reports as per HPI and Reports no additional eye complaints Reports system reviewed and no additional complaints, except as documented Cardiovascular: Reports as per HPI and Reports no additional cardiovascular complaints Respiratory: Reports as per HPI and Reports no additional respiratory complaints Gastrointestinal: Reports as per HPI and Reports no additional gastrointestinal complaints Genitourinary: Reports no additional female genitourinary complaints Musculoskeletal: Reports no additional musculoskeletal complaints Skin/Breast: Reports system reviewed and no additional complaints, except as docu Psychiatric: Reports no additional psychiatric complaints Endocrine: Reports no additional endocrine complaints Hematologic/Lymphatic: Reports no additional hematologic/lymphatic complaints Allergic/Immunologic: Reports no additional allergic/immunologic complaints Reports system reviewed and no additional complaints, except as documented and Reports Abnormal speech present [facility] Past Medical History Medical History Diabetes 1.5, managed as type 2 GERD (gastroesophageal reflux disease) Hx of substance abuse No known health problems Tubular adenoma of colon Surgical History S/P liver transplant Social History Social History Household Members: None Alcohol intake: never Advance Directives: No Advance Directives Information Provided: No Current occupational status: disabled Physical Exam Vital Signs: Vital Signs: Last Vital Signs Temp 97.4 F 12/25/20 08:25 Pulse 61 12/25/20 08:25 Resp 18 12/25/20 08:25 BP 157/97 H 12/25/20 08:25 Pulse Ox 97 12/25/20 08:25 Body Mass Index 31.1 Vital signs have been reviewed as appeared to be correct. Blood pressure normal. Heart rate normal. Respiration rate normal. Temperature normal. Oxygen saturation normal. Appearance: Alert. Oriented X3. No acute distress. Head: Normal external exam. Normocephalic. Atraumatic. No Verdugo signs noted. No raccoon eyes noted Eyes: PERRLA. EOMI. Conjunctiva and sclera normal. Eyelids normal. ENT: TM's Normal. Pharynx normal. Uvula midline. Moist mucous membranes. No trismus noted. No drooling noted. No muffled voice noted. Neck: Normal inspection. Neck supple. FROM. No adenopathy. Thyroid Normal. No meningeal signs. No neck mass noted. CVS: Normal heart rate and rhythm. Heart sound normal. No murmurs noted. Pulses normal throughout. Respiratory: No respiratory distress. Painless inspiration. Breath sounds normal. No wheezes/rales/rhonchi noted. Chest nontender. No accessory muscle usage noted or decreased air movement noted. Abdomen: Soft and nontender. Bowel sounds normal in all 4 quadrants. No distention noted. No organomegaly noted. No visible injury noted. Back: No CVA tenderness. Full range of motion noted. No step-off, no deformity. Skin: Skin warm and dry. Normal skin color. Normal skin turgor. No rashes/lesions/lacerations noted. Extremities: No lower extremity edema. Extremities exhibit normal range of motion. Extremities nontender. Neuro: Oriented X 3. Cranial nerve exam: II-XII are grossly intact No motor deficit. No sensory deficit. Reflexes normal. Course Course Course Narrative: Assessment and plan. 55-year-old male history of chronic back pain presented with worsening of back pain for the last 3 days. Give the patient 1 dose of oxycodone in the emergency department and continue with NSAIDs that was prescribed by his PCP pain Discharge Plan Discharge Clinical Impression: Strain of lumbar region Patient Disposition: Home, Self-Care Instructions: Acute Low Back Pain (ED) Prescriptions: No Action tadalafil 5 mg tablet 5 mg PO DAILY PRN (Reason: sexual activity) 90 Days Qty: 90 RF: 0 methocarbamol 750 mg tablet 750 mg PO TID PRN (Reason: pain (scale score 4-6)) Qty: 20 RF: 0 oxycodone 5 mg tablet 5 mg PO Q8H PRN (Reason: pain) Qty: 10 RF: 0 prednisone 20 mg tablet 20 mg PO DAILY RF: 0 sulfamethoxazole-trimethoprim [Bactrim] 400-80 mg tablet 1 tab PO 3XW RF: 0 omeprazole 20 mg tablet,delayed release (DR/EC) 20 mg PO DAILY RF: 0 metformin 1,000 mg tablet 1,000 mg PO BID RF: 0 magnesium oxide [MagOx] 400 mg (241.3 mg magnesium) tablet 400 mg PO DAILY RF: 0 gabapentin 100 mg capsule 100 mg PO TID RF: 0 cholecalciferol (vitamin D3) 50 mcg (2,000 unit) capsule 50 mcg PO DAILY RF: 0 ferrous sulfate 325 mg (65 mg iron) tablet 325 mg PO DAILY RF: 0 Lantus Solostar U-100 Insulin 100 unit/mL (3 mL) insulin pen 10 unit subcut TIDWMEAL RF: 0 tacrolimus [Prograf] 1 mg capsule 4 mg PO ONCE RF: 0 sulfamethoxazole-trimethoprim 400-80 mg tablet 1 tab PO BEDTIME RF: 0 Referrals: Agustin Mix MD [Primary Care Provider] - 2 days Interventions: ED Discharge Assessment Last Done: 12/25/20 09:13 Discharge Date/Time: 12/25/20 09:13
--- NOTE | 2020-12-25 09:10 | PC.NURSE ---
This RN to medicate pt and pt left ED without medication and d/c paperwork
== END 2020-12-25 09:13 | disposition home or self-care (01) ==
PROVIDERS: Emergency Provider Emergency Medicine; PCP Internal Medicine
DX: S39.012A Strain of muscle, fascia and tendon of lower back, initial encounter (principal); X58.XXXA Exposure to other specified factors, initial encounter; Y93.9 Activity, unspecified; Y92.9 Unspecified place or not applicable; Y99.9 Unspecified external cause status; Z94.4 Liver transplant status; E11.9 Type 2 diabetes mellitus without complications
CPT/HCPCS: 99283

== ENCOUNTER 2020-12-25 10:30 | Emergency (ER) | payer OTHER, SELFPAY ==
[2020-12-25 11:37] VITALS: BP 131/67; PULSE 61; RESP 16; O2SAT 97; BMI 31.3
--- NOTE | 2020-12-25 11:40 | ED_ITS ---
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 but he need a ride to go home with patient miss interpret my instruction left and came back with somebody to drive him home 55-year-old male history of chronic low back pain started many years ago. Patient been having worsening of back pain for the past 3 days, no recent trauma or injury to the back, no fever chills, no urinary incontinence, no radiation of the back pain. Patient was seen by his PCP who prescribed anti inflammatory medication patient stated that is not working. Pain is more with movement and walking, nothing to relieve the pain. Related Data Home Medications Medication Instructions Recorded Confirmed cholecalciferol (vitamin D3) 50 50 mcg PO DAILY 07/27/20 07/27/20 mcg (2,000 unit) capsule ferrous sulfate 325 mg (65 mg 325 mg PO DAILY 07/27/20 07/27/20 iron) tablet gabapentin 100 mg capsule 100 mg PO TID 07/27/20 07/27/20 insulin glargine 100 unit/mL (3 10 unit SUBCUT TIDWMEAL ml 07/27/20 07/27/20 mL) subcutaneous pen (Lantus Solostar U-100 Insulin) magnesium oxide 400 mg (241.3 mg 400 mg PO DAILY 07/27/20 07/27/20 magnesium) tablet (MagOx) metformin 1,000 mg tablet 1,000 mg PO BID 07/27/20 07/27/20 omeprazole 20 mg tablet,delayed 20 mg PO DAILY 07/27/20 07/27/20 release prednisone 20 mg tablet 20 mg PO DAILY 07/27/20 07/27/20 sulfamethoxazole 400 1 tab PO 3XW tab 07/27/20 07/27/20 mg-trimethoprim 80 mg tablet (Bactrim) sulfamethoxazole 400 1 tab PO BEDTIME 08/03/20 mg-trimethoprim 80 mg tablet tacrolimus 1 mg capsule, 4 mg PO ONCE cap 08/03/20 immediate-release (Prograf) Previous Rx's Medication Instructions Recorded oxycodone 5 mg tablet 5 mg PO Q8H PRN #10 tab NS 01/31/20 methocarbamol 750 mg tablet 750 mg PO TID PRN #20 tab 09/20/20 tadalafil 5 mg tablet 5 mg PO DAILY PRN 90 Days #90 tab 11/14/20 Allergies Allergy/AdvReac Type Severity Reaction Status Date / Time No Known Allergies Allergy Verified 07/27/20 08:35 [No Known Allergies*] Review of Systems Review of Systems: All other systems are reviewed and are negative Constitutional: Reports as per HPI and Reports no additional constitutional complaints Eyes: Reports as per HPI and Reports no additional eye complaints Reports system reviewed and no additional complaints, except as documented Cardiovascular: Reports as per HPI and Reports no additional cardiovascular complaints Respiratory: Reports as per HPI and Reports no additional respiratory complaints Gastrointestinal: Reports as per HPI and Reports no additional gastrointestinal complaints Genitourinary: Reports no additional female genitourinary complaints Musculoskeletal: Reports no additional musculoskeletal complaints Skin/Breast: Reports system reviewed and no additional complaints, except as docu Psychiatric: Reports no additional psychiatric complaints Endocrine: Reports no additional endocrine complaints Hematologic/Lymphatic: Reports no additional hematologic/lymphatic complaints Allergic/Immunologic: Reports no additional allergic/immunologic complaints Reports system reviewed and no additional complaints, except as documented and Reports Abnormal speech present [facility] Past Medical History Medical History Diabetes 1.5, managed as type 2 GERD (gastroesophageal reflux disease) Hx of substance abuse No known health problems Tubular adenoma of colon Surgical History S/P liver transplant Social History Social History Household Members: None Alcohol intake: never Advance Directives: No Advance Directives Information Provided: No Current occupational status: disabled Physical Exam Vital Signs: Vital Signs: Vital signs have been reviewed as appeared to be correct. Blood pressure normal. Heart rate normal. Respiration rate normal. Temperature normal. Oxygen saturation normal. Appearance: Alert. Oriented X3. No acute distress. Head: Normal external exam. Normocephalic. Atraumatic. No Verdugo signs noted. No raccoon eyes noted Eyes: PERRLA. EOMI. Conjunctiva and sclera normal. Eyelids normal. ENT: TM's Normal. Pharynx normal. Uvula midline. Moist mucous membranes. No trismus noted. No drooling noted. No muffled voice noted. Neck: Normal inspection. Neck supple. FROM. No adenopathy. Thyroid Normal. No meningeal signs. No neck mass noted. CVS: Normal heart rate and rhythm. Heart sound normal. No murmurs noted. Pulses normal throughout. Respiratory: No respiratory distress. Painless inspiration. Breath sounds normal. No wheezes/rales/rhonchi noted. Chest nontender. No accessory muscle usage noted or decreased air movement noted. Abdomen: Soft and nontender. Bowel sounds normal in all 4 quadrants. No distention noted. No organomegaly noted. No visible injury noted. Back: No CVA tenderness. Full range of motion noted. Skin: Skin warm and dry. Normal skin color. Normal skin turgor. No rashes/lesions/lacerations noted. Extremities: No lower extremity edema. Extremities exhibit normal range of motion. Extremities nontender. Neuro: Oriented X 3. Cranial nerve exam: II-XII are grossly intact No motor deficit. No sensory deficit. Reflexes normal. Course Course Course Narrative: Assessment and plan. 55-year-old male with chronic low back pain was seen earlier by me in the emergency department patient was told we will be given oxycodone for pain but he will need a ride to take him home, patient miss interpreted despite using the star route mail driver system my instruction and went home came back 1 hour later with somebody to drive him Discharge Plan Discharge Clinical Impression: Strain of lumbar region Patient Disposition: Home, Self-Care Instructions: Acute Low Back Pain (ED) Prescriptions: No Action tadalafil 5 mg tablet 5 mg PO DAILY PRN (Reason: sexual activity) 90 Days Qty: 90 RF: 0 methocarbamol 750 mg tablet 750 mg PO TID PRN (Reason: pain (scale score 4-6)) Qty: 20 RF: 0 oxycodone 5 mg tablet 5 mg PO Q8H PRN (Reason: pain) Qty: 10 RF: 0 prednisone 20 mg tablet 20 mg PO DAILY RF: 0 sulfamethoxazole-trimethoprim [Bactrim] 400-80 mg tablet 1 tab PO 3XW RF: 0 omeprazole 20 mg tablet,delayed release (DR/EC) 20 mg PO DAILY RF: 0 metformin 1,000 mg tablet 1,000 mg PO BID RF: 0 magnesium oxide [MagOx] 400 mg (241.3 mg magnesium) tablet 400 mg PO DAILY RF: 0 gabapentin 100 mg capsule 100 mg PO TID RF: 0 cholecalciferol (vitamin D3) 50 mcg (2,000 unit) capsule 50 mcg PO DAILY RF: 0 ferrous sulfate 325 mg (65 mg iron) tablet 325 mg PO DAILY RF: 0 Lantus Solostar U-100 Insulin 100 unit/mL (3 mL) insulin pen 10 unit subcut TIDWMEAL RF: 0 tacrolimus [Prograf] 1 mg capsule 4 mg PO ONCE RF: 0 sulfamethoxazole-trimethoprim 400-80 mg tablet 1 tab PO BEDTIME RF: 0 Referrals: Agustin Mix MD [Primary Care Provider] - 2 days
[2020-12-25] MEDS: oxyCODONE HCl Immed Release 5 MG TABLET PO (12:02)
== END 2020-12-25 12:07 | disposition home or self-care (01) ==
PROVIDERS: Emergency Provider Emergency Medicine; PCP Internal Medicine
DX: S39.012D Strain of muscle, fascia and tendon of lower back, subsequent encounter (principal); X58.XXXD Exposure to other specified factors, subsequent encounter; E13.9 Other specified diabetes mellitus without complications; Z94.4 Liver transplant status
CPT/HCPCS: 99283

== ENCOUNTER 2020-12-27 08:44 | Outpatient (REF) | payer OTHER, SELFPAY ==
[2020-12-27 09:50] LABS: MANUAL DIFF FLAG NO
[2020-12-27 09:54] LABS: Basophils Percent Auto 0.6 % (0-2); Eosinophils Absolute Auto 0.1 X10*3/uL (0.0-0.4); Eosinophils Percent Auto 1.4 % (0-4); Hemoglobin 10.7 g/dl (14.0-18.0); Imm Gran Abs Auto 0.01 X10*3/uL (0.00-0.03); Imm Gran Pct Auto 0.3 % (0.0-0.4); Lymphocytes Percent Auto 26.6 % (20-40); Mean Corpuscular HGB Conc 34.5 g/dl (31.0-36.0); Mean Corpuscular Hemoglobin 29.6 pg (27.0-33.0); Mean Corpuscular Volume 85.9 fL (80-98); Mean Platelet Volume 11.3 fL (9.4-12.4); Monocytes Absolute Auto 0.4 X10*3/uL (0.1-1.2); Monocytes Percent Auto 11.2 % (2-11); Neutrophils Absolute Auto 2.1 X10*3/uL (2.0-8.3); Neutrophils Percent Auto 59.9 % (45-73); Red Blood Count 3.61 X10*6/uL (4.60-5.80); Red Cell Distribution Width 12.4 % (11.0-16.0); White Blood Count 3.6 X10*3/uL (4.8-10.8)
[2020-12-27 09:59] LABS: Platelet Count 91 X10*3/uL (160-400)
[2020-12-27 10:24] LABS: Alanine Aminotransferase 34 U/L (0-40); Albumin Level 4.1 g/dL (3.5-5.0); Alkaline Phosphatase 99 U/L (39-117); Anion Gap 10 (12-20); Aspartate Amino Transferase 25 U/L (5-37); Bilirubin Total 0.7 mg/dL (0.0-1.0); Blood Urea Nitrogen 22 mg/dL (9-16); Calcium 9.6 mg/dL (8.4-10.2); Carbon Dioxide 26 mmol/L (22-29); Chloride 108 mmol/L (96-108); Estimated Glomerular Filt Rate 53; Glucose Random 214 mg/dL (60-115); Magnesium 1.6 mg/dL (1.6-2.6); Phosphorus 3.3 mg/dL (2.7-4.5); Potassium 5.4 mmol/L (3.3-5.1); Sodium 139 mmol/L (135-145); Total Protein 6.5 g/dL (6.5-8.0)
[2020-12-30 15:46] LABS: CMV DNA PCR Qn Source Whole Blood; CMV DNA Qn PCR <2.30 log IU/mL (<2.30); CMV DNA Qn Real Time PCR <200 IU/mL (<200)
== END 2020-12-27 08:45 | disposition home or self-care (01) ==
LOC: HO.LABR 08:44
PROVIDERS: PCP Internal Medicine; Visit Provider Internal Medicine
DX: Z94.4 Liver transplant status (principal)
CPT/HCPCS: 36415; 80053; 80197; 83735; 84100; 85025; 87497

== ENCOUNTER 2021-01-10 06:17 | Outpatient (REF) | payer OTHER, SELFPAY ==
[2021-01-10 07:29] LABS: MANUAL DIFF FLAG SCAN; Monocytes Absolute Auto 0.5 X10*3/uL (0.1-1.2); PLT CLUMP 1; SCAN SMEAR FLAG 1
[2021-01-10 07:31] LABS: Basophils Percent Auto 0.5 % (0-2); Eosinophils Absolute Auto 0.1 X10*3/uL (0.0-0.4); Eosinophils Percent Auto 1.3 % (0-4); Hematocrit 32.8 % (42-52); Hemoglobin 11.2 g/dl (14.0-18.0); Imm Gran Abs Auto 0.02 X10*3/uL (0.00-0.03); Imm Gran Pct Auto 0.5 % (0.0-0.4); Lymphocytes Absolute Auto 1.3 X10*3/uL (1.2-4.9); Lymphocytes Percent Auto 34.4 % (20-40); Mean Corpuscular HGB Conc 34.1 g/dl (31.0-36.0); Mean Corpuscular Hemoglobin 29.5 pg (27.0-33.0); Mean Corpuscular Volume 86.3 fL (80-98); Mean Platelet Volume 11.5 fL (9.4-12.4); Monocytes Percent Auto 12.6 % (2-11); Neutrophils Absolute Auto 1.9 X10*3/uL (2.0-8.3); Neutrophils Percent Auto 50.7 % (45-73); Red Cell Distribution Width 12.9 % (11.0-16.0); White Blood Count 3.7 X10*3/uL (4.8-10.8)
[2021-01-10 07:34] LABS: Platelet Count 99 X10*3/uL (160-400)
[2021-01-10 07:48] LABS: Alanine Aminotransferase 274 U/L (0-40); Albumin Level 4.2 g/dL (3.5-5.0); Alkaline Phosphatase 157 U/L (39-117); Anion Gap 10 (12-20); Aspartate Amino Transferase 447 U/L (5-37); Bilirubin Total 0.9 mg/dL (0.0-1.0); Blood Urea Nitrogen 25 mg/dL (9-16); Calcium 9.3 mg/dL (8.4-10.2); Carbon Dioxide 26 mmol/L (22-29); Chloride 107 mmol/L (96-108); Estimated Glomerular Filt Rate 58; Glucose Random 150 mg/dL (60-115); Magnesium 1.9 mg/dL (1.6-2.6); Phosphorus 3.6 mg/dL (2.7-4.5); Potassium 5.5 mmol/L (3.3-5.1); Sodium 137 mmol/L (135-145)
[2021-01-11 17:52] LABS: Tacrolimus Prograf 5.2 mcg/L
[2021-01-15 14:22] LABS: CMV DNA PCR Qn Source Whole Blood; CMV DNA Qn PCR Not Detected log IU/mL; CMV DNA Qn Real Time PCR Not Detected
== END 2021-01-10 06:18 | disposition home or self-care (01) ==
LOC: HO.LABR 06:17
PROVIDERS: PCP Internal Medicine; Visit Provider Internal Medicine
DX: Z94.4 Liver transplant status (principal); Z79.899 Other long term (current) drug therapy
CPT/HCPCS: 36415; 80053; 80197; 83735; 84100; 85025; 87497

== ENCOUNTER 2021-01-17 08:07 | Outpatient (REF) | payer OTHER, SELFPAY ==
[2021-01-17 08:30] LABS: MANUAL DIFF FLAG NO
[2021-01-17 09:23] LABS: Basophils Percent Auto 0.5 % (0-2); Eosinophils Absolute Auto 0.1 X10*3/uL (0.0-0.4); Eosinophils Percent Auto 1.2 % (0-4); Hematocrit 30.8 % (42-52); Imm Gran Abs Auto 0.01 X10*3/uL (0.00-0.03); Imm Gran Pct Auto 0.2 % (0.0-0.4); Lymphocytes Absolute Auto 1.1 X10*3/uL (1.2-4.9); Lymphocytes Percent Auto 27.4 % (20-40); Mean Corpuscular HGB Conc 35.7 g/dl (31.0-36.0); Mean Corpuscular Hemoglobin 29.8 pg (27.0-33.0); Mean Corpuscular Volume 83.5 fL (80-98); Mean Platelet Volume 11.3 fL (9.4-12.4); Monocytes Absolute Auto 0.5 X10*3/uL (0.1-1.2); Monocytes Percent Auto 10.9 % (2-11); Neutrophils Absolute Auto 2.5 X10*3/uL (2.0-8.3); Neutrophils Percent Auto 59.8 % (45-73); Platelet Count 104 X10*3/uL (160-400); Red Blood Count 3.69 X10*6/uL (4.60-5.80); Red Cell Distribution Width 12.5 % (11.0-16.0); White Blood Count 4.1 X10*3/uL (4.8-10.8)
[2021-01-17 09:36] LABS: Alanine Aminotransferase 54 U/L (0-40); Albumin Level 4.2 g/dL (3.5-5.0); Alkaline Phosphatase 106 U/L (39-117); Anion Gap 10 (12-20); Aspartate Amino Transferase 20 U/L (5-37); Bilirubin Total 0.6 mg/dL (0.0-1.0); Blood Urea Nitrogen 21 mg/dL (9-16); Calcium 9.6 mg/dL (8.4-10.2); Carbon Dioxide 26 mmol/L (22-29); Chloride 106 mmol/L (96-108); Estimated Glomerular Filt Rate 55; Glucose Random 230 mg/dL (60-115); Magnesium 1.7 mg/dL (1.6-2.6); Potassium 4.6 mmol/L (3.3-5.1); Sodium 137 mmol/L (135-145)
[2021-01-18 11:41] LABS: Tacrolimus Prograf 5.1 mcg/L
[2021-01-21 13:21] LABS: CMV DNA PCR Qn Source Plasma; CMV DNA Qn PCR Not Detected log IU/mL; CMV DNA Qn Real Time PCR Not Detected
== END 2021-01-17 08:08 | disposition home or self-care (01) ==
LOC: HO.LABR 08:07
PROVIDERS: PCP Internal Medicine; Visit Provider Internal Medicine
DX: Z94.4 Liver transplant status (principal)
CPT/HCPCS: 36415; 80053; 80197; 83735; 84100; 85025; 87497

== ENCOUNTER 2021-01-22 08:08 | Outpatient (REF) | payer OTHER, SELFPAY ==
[2021-01-22 08:36] LABS: MANUAL DIFF FLAG NO
[2021-01-22 09:07] LABS: Basophils Percent Auto 0.5 % (0-2); Eosinophils Absolute Auto 0.1 X10*3/uL (0.0-0.4); Eosinophils Percent Auto 1.4 % (0-4); Hemoglobin 10.7 g/dl (14.0-18.0); Imm Gran Abs Auto 0.02 X10*3/uL (0.00-0.03); Imm Gran Pct Auto 0.5 % (0.0-0.4); Lymphocytes Absolute Auto 1.2 X10*3/uL (1.2-4.9); Lymphocytes Percent Auto 27.8 % (20-40); Mean Corpuscular HGB Conc 35.7 g/dl (31.0-36.0); Mean Platelet Volume 10.8 fL (9.4-12.4); Monocytes Absolute Auto 0.5 X10*3/uL (0.1-1.2); Neutrophils Absolute Auto 2.6 X10*3/uL (2.0-8.3); Neutrophils Percent Auto 58.8 % (45-73); Platelet Count 105 X10*3/uL (160-400); Red Blood Count 3.57 X10*6/uL (4.60-5.80); Red Cell Distribution Width 12.5 % (11.0-16.0); White Blood Count 4.4 X10*3/uL (4.8-10.8)
[2021-01-22 09:25] LABS: Alanine Aminotransferase 50 U/L (0-40); Albumin Level 4.1 g/dL (3.5-5.0); Alkaline Phosphatase 129 U/L (39-117); Anion Gap 10 (12-20); Aspartate Amino Transferase 33 U/L (5-37); Bilirubin Total 0.5 mg/dL (0.0-1.0); Blood Urea Nitrogen 21 mg/dL (9-16); Calcium 9.3 mg/dL (8.4-10.2); Carbon Dioxide 26 mmol/L (22-29); Chloride 107 mmol/L (96-108); Estimated Glomerular Filt Rate > 60; Glucose Random 172 mg/dL (60-115); Magnesium 1.7 mg/dL (1.6-2.6); Phosphorus 2.9 mg/dL (2.7-4.5); Potassium 5.2 mmol/L (3.3-5.1); Sodium 138 mmol/L (135-145); Total Protein 6.7 g/dL (6.5-8.0)
[2021-01-23 06:31] LABS: Tacrolimus Prograf 6.9 mcg/L
[2021-01-25 12:42] LABS: CMV DNA PCR Qn Source Whole Blood; CMV DNA Qn PCR Not Detected log IU/mL; CMV DNA Qn Real Time PCR Not Detected
== END 2021-01-22 08:09 | disposition home or self-care (01) ==
LOC: HO.LABR 08:08
PROVIDERS: PCP Internal Medicine; Visit Provider Internal Medicine
DX: Z94.4 Liver transplant status (principal)
CPT/HCPCS: 36415; 80053; 80197; 83735; 84100; 85025; 87497

== ENCOUNTER 2021-01-29 06:37 | Outpatient (REF) | payer OTHER, SELFPAY ==
[2021-01-29 06:43] LABS: MANUAL DIFF FLAG NO
[2021-01-29 07:47] LABS: Basophils Percent Auto 0.6 % (0-2); Eosinophils Absolute Auto 0.1 X10*3/uL (0.0-0.4); Eosinophils Percent Auto 2.3 % (0-4); Hemoglobin 11.1 g/dl (14.0-18.0); Imm Gran Abs Auto 0.01 X10*3/uL (0.00-0.03); Imm Gran Pct Auto 0.3 % (0.0-0.4); Lymphocytes Absolute Auto 1.2 X10*3/uL (1.2-4.9); Lymphocytes Percent Auto 33.6 % (20-40); Mean Corpuscular HGB Conc 34.7 g/dl (31.0-36.0); Mean Corpuscular Hemoglobin 29.1 pg (27.0-33.0); Mean Platelet Volume 10.5 fL (9.4-12.4); Monocytes Absolute Auto 0.4 X10*3/uL (0.1-1.2); Monocytes Percent Auto 10.3 % (2-11); Neutrophils Absolute Auto 1.8 X10*3/uL (2.0-8.3); Neutrophils Percent Auto 52.9 % (45-73); Platelet Count 109 X10*3/uL (160-400); Red Blood Count 3.81 X10*6/uL (4.60-5.80); Red Cell Distribution Width 12.9 % (11.0-16.0); White Blood Count 3.5 X10*3/uL (4.8-10.8)
[2021-01-29 08:26] LABS: Alanine Aminotransferase 34 U/L (0-40); Albumin Level 4.1 g/dL (3.5-5.0); Alkaline Phosphatase 119 U/L (39-117); Anion Gap 9 (12-20); Aspartate Amino Transferase 25 U/L (5-37); Bilirubin Total 0.5 mg/dL (0.0-1.0); Blood Urea Nitrogen 25 mg/dL (9-16); Calcium 9.3 mg/dL (8.4-10.2); Carbon Dioxide 26 mmol/L (22-29); Chloride 109 mmol/L (96-108); Estimated Glomerular Filt Rate 51; Glucose Random 173 mg/dL (60-115); Magnesium 1.5 mg/dL (1.6-2.6); Phosphorus 3.2 mg/dL (2.7-4.5); Potassium 5.4 mmol/L (3.3-5.1); Sodium 139 mmol/L (135-145); Total Protein 6.9 g/dL (6.5-8.0)
[2021-01-30 13:27] LABS: Tacrolimus Prograf 7.3 mcg/L
[2021-02-01 07:12] LABS: CMV DNA PCR Qn Source Whole Blood; CMV DNA Qn PCR Not Detected log IU/mL; CMV DNA Qn Real Time PCR Not Detected
== END 2021-01-29 06:38 | disposition home or self-care (01) ==
LOC: HO.LABR 06:37
PROVIDERS: PCP Internal Medicine; Visit Provider Internal Medicine
DX: Z94.4 Liver transplant status (principal); Z79.899 Other long term (current) drug therapy
CPT/HCPCS: 36415; 80053; 80197; 83735; 84100; 85025; 87497

== ENCOUNTER 2021-02-05 07:20 | Outpatient (REF) | payer OTHER, SELFPAY ==
[2021-02-05 07:49] LABS: Hemoglobin 11.3 g/dl (14.0-18.0); MANUAL DIFF FLAG SCAN; Mean Corpuscular Volume 84.7 fL (80-98); PLT CLUMP 1; SCAN SMEAR FLAG 1
[2021-02-05 07:50] LABS: Basophils Percent Auto 0.5 % (0-2); Eosinophils Absolute Auto 0.1 X10*3/uL (0.0-0.4); Eosinophils Percent Auto 1.9 % (0-4); Imm Gran Abs Auto 0.02 X10*3/uL (0.00-0.03); Imm Gran Pct Auto 0.5 % (0.0-0.4); Lymphocytes Absolute Auto 1.2 X10*3/uL (1.2-4.9); Lymphocytes Percent Auto 32.7 % (20-40); Mean Corpuscular HGB Conc 35.3 g/dl (31.0-36.0); Mean Corpuscular Hemoglobin 29.9 pg (27.0-33.0); Mean Platelet Volume 10.6 fL (9.4-12.4); Monocytes Absolute Auto 0.4 X10*3/uL (0.1-1.2); Monocytes Percent Auto 11.9 % (2-11); Neutrophils Absolute Auto 1.9 X10*3/uL (2.0-8.3); Neutrophils Percent Auto 52.5 % (45-73); Platelet Count 120 X10*3/uL (160-400); Red Blood Count 3.78 X10*6/uL (4.60-5.80); White Blood Count 3.7 X10*3/uL (4.8-10.8)
[2021-02-05 08:13] LABS: Alanine Aminotransferase 26 U/L (0-40); Albumin Level 4.4 g/dL (3.5-5.0); Alkaline Phosphatase 104 U/L (39-117); Anion Gap 11 (12-20); Aspartate Amino Transferase 24 U/L (5-37); Bilirubin Total 0.6 mg/dL (0.0-1.0); Blood Urea Nitrogen 21 mg/dL (9-16); Calcium 9.6 mg/dL (8.4-10.2); Carbon Dioxide 25 mmol/L (22-29); Chloride 107 mmol/L (96-108); Estimated Glomerular Filt Rate 56; Glucose Random 191 mg/dL (60-115); Magnesium 1.7 mg/dL (1.6-2.6); Phosphorus 2.9 mg/dL (2.7-4.5); Potassium 5.3 mmol/L (3.3-5.1); Sodium 138 mmol/L (135-145); Total Protein 7.2 g/dL (6.5-8.0)
[2021-02-06 09:30] LABS: Tacrolimus Prograf 4.3 mcg/L
[2021-02-08 07:22] LABS: CMV DNA PCR Qn Source Whole Blood; CMV DNA Qn PCR Not Detected log IU/mL; CMV DNA Qn Real Time PCR Not Detected
== END 2021-02-05 07:21 | disposition home or self-care (01) ==
LOC: HO.LABR 07:20
PROVIDERS: PCP Internal Medicine; Visit Provider Internal Medicine
DX: Z94.4 Liver transplant status (principal); Z79.899 Other long term (current) drug therapy
CPT/HCPCS: 36415; 80053; 80197; 83735; 84100; 85025; 87497

== ENCOUNTER 2021-02-12 08:14 | Outpatient (REF) | payer OTHER, SELFPAY ==
[2021-02-12 08:31] LABS: MANUAL DIFF FLAG NO
[2021-02-12 08:37] LABS: Basophils Percent Auto 0.8 % (0-2); Eosinophils Absolute Auto 0.1 X10*3/uL (0.0-0.4); Eosinophils Percent Auto 1.3 % (0-4); Hematocrit 33.5 % (42-52); Hemoglobin 11.8 g/dl (14.0-18.0); Imm Gran Abs Auto 0.02 X10*3/uL (0.00-0.03); Imm Gran Pct Auto 0.5 % (0.0-0.4); Lymphocytes Absolute Auto 1.4 X10*3/uL (1.2-4.9); Lymphocytes Percent Auto 36.5 % (20-40); Mean Corpuscular HGB Conc 35.2 g/dl (31.0-36.0); Mean Corpuscular Hemoglobin 29.3 pg (27.0-33.0); Mean Corpuscular Volume 83.1 fL (80-98); Mean Platelet Volume 10.3 fL (9.4-12.4); Monocytes Absolute Auto 0.5 X10*3/uL (0.1-1.2); Neutrophils Absolute Auto 1.8 X10*3/uL (2.0-8.3); Neutrophils Percent Auto 47.9 % (45-73); Platelet Count 123 X10*3/uL (160-400); Red Blood Count 4.03 X10*6/uL (4.60-5.80); Red Cell Distribution Width 12.3 % (11.0-16.0); White Blood Count 3.8 X10*3/uL (4.8-10.8)
[2021-02-12 09:07] LABS: Alanine Aminotransferase 22 U/L (0-40); Albumin Level 4.4 g/dL (3.5-5.0); Alkaline Phosphatase 102 U/L (39-117); Anion Gap 9 (12-20); Aspartate Amino Transferase 18 U/L (5-37); Bilirubin Total 0.6 mg/dL (0.0-1.0); Blood Urea Nitrogen 23 mg/dL (9-16); Calcium 9.5 mg/dL (8.4-10.2); Carbon Dioxide 27 mmol/L (22-29); Chloride 107 mmol/L (96-108); Estimated Glomerular Filt Rate 52; Glucose Random 246 mg/dL (60-115); Magnesium 1.8 mg/dL (1.6-2.6); Phosphorus 3.6 mg/dL (2.7-4.5); Potassium 5.1 mmol/L (3.3-5.1); Sodium 138 mmol/L (135-145); Total Protein 7.3 g/dL (6.5-8.0)
[2021-02-13 06:17] LABS: Tacrolimus Prograf 5.8 mcg/L
[2021-02-15 18:41] LABS: CMV DNA PCR Qn Source Plasma; CMV DNA Qn PCR Not Detected log IU/mL; CMV DNA Qn Real Time PCR Not Detected
== END 2021-02-12 08:15 | disposition home or self-care (01) ==
LOC: HO.LABR 08:14
PROVIDERS: PCP Internal Medicine; Visit Provider Internal Medicine
DX: Z94.4 Liver transplant status (principal)
CPT/HCPCS: 36415; 80053; 80197; 83735; 84100; 85025; 87497

== ENCOUNTER 2021-02-19 08:12 | Outpatient (REF) | payer OTHER, SELFPAY ==
[2021-02-19 08:27] LABS: MANUAL DIFF FLAG NO
[2021-02-19 08:44] LABS: Basophils Percent Auto 0.5 % (0-2); Eosinophils Absolute Auto 0.1 X10*3/uL (0.0-0.4); Eosinophils Percent Auto 1.3 % (0-4); Hematocrit 31.7 % (42.0-52.0); Hemoglobin 11.2 g/dl (14.0-18.0); Imm Gran Abs Auto 0.02 X10*3/uL (0.00-0.03); Imm Gran Pct Auto 0.5 % (0.0-0.4); Lymphocytes Absolute Auto 1.1 X10*3/uL (1.2-4.9); Lymphocytes Percent Auto 29.1 % (20-40); Mean Corpuscular HGB Conc 35.3 g/dl (31.0-36.0); Mean Corpuscular Hemoglobin 29.5 pg (27.0-33.0); Mean Corpuscular Volume 83.4 fL (80.0-98.0); Mean Platelet Volume 10.5 fL (9.4-12.4); Monocytes Absolute Auto 0.4 X10*3/uL (0.1-1.2); Monocytes Percent Auto 10.5 % (2-11); Neutrophils Absolute Auto 2.28 x10*3/uL (2.0-8.3); Neutrophils Percent Auto 58.1 % (45-73); Platelet Count 107 X10*3/uL (160-400); Red Cell Distribution Width 12.4 % (11.0-16.0); White Blood Count 3.9 X10*3/uL (4.8-10.8)
[2021-02-19 09:24] LABS: Alanine Aminotransferase 25 U/L (0-40); Albumin Level 4.4 g/dL (3.5-5.0); Alkaline Phosphatase 95 U/L (39-117); Anion Gap 9 (12-20); Aspartate Amino Transferase 19 U/L (5-37); Bilirubin Total 0.7 mg/dL (0.0-1.0); Blood Urea Nitrogen 27 mg/dL (9-16); Calcium 9.3 mg/dL (8.4-10.2); Carbon Dioxide 25 mmol/L (22-29); Chloride 108 mmol/L (96-108); Estimated Glomerular Filt Rate 49; Glucose Random 249 mg/dL (60-115); Magnesium 1.7 mg/dL (1.6-2.6); Phosphorus 3.5 mg/dL (2.7-4.5); Potassium 5.4 mmol/L (3.3-5.1); Sodium 137 mmol/L (135-145); Total Protein 7.1 g/dL (6.5-8.0)
[2021-02-22 12:50] LABS: CMV DNA PCR Qn Source Whole Blood; CMV DNA Qn PCR Not Detected log IU/mL; CMV DNA Qn Real Time PCR Not Detected
== END 2021-02-19 08:13 | disposition home or self-care (01) ==
LOC: HO.LABR 08:12
PROVIDERS: PCP Internal Medicine; Visit Provider Internal Medicine
DX: Z94.4 Liver transplant status (principal); Z79.899 Other long term (current) drug therapy
CPT/HCPCS: 36415; 80053; 80197; 83735; 84100; 85025; 87497

== ENCOUNTER 2021-02-27 06:49 | Outpatient (REF) | payer OTHER, SELFPAY ==
[2021-02-27 07:10] LABS: MANUAL DIFF FLAG NO
[2021-02-27 07:50] LABS: Basophils Percent Auto 0.5 % (0-2); Eosinophils Percent Auto 0.9 % (0-4); Hematocrit 31.6 % (42.0-52.0); Hemoglobin 11.1 g/dl (14.0-18.0); Imm Gran Abs Auto 0.01 X10*3/uL (0.00-0.03); Imm Gran Pct Auto 0.2 % (0.0-0.4); Lymphocytes Absolute Auto 1.4 X10*3/uL (1.2-4.9); Lymphocytes Percent Auto 33.6 % (20-40); Mean Corpuscular HGB Conc 35.1 g/dl (31.0-36.0); Mean Corpuscular Hemoglobin 29.3 pg (27.0-33.0); Mean Corpuscular Volume 83.4 fL (80.0-98.0); Mean Platelet Volume 11.3 fL (9.4-12.4); Monocytes Absolute Auto 0.5 X10*3/uL (0.1-1.2); Monocytes Percent Auto 10.7 % (2-11); Neutrophils Absolute Auto 2.3 x10*3/uL (2.0-8.3); Neutrophils Percent Auto 54.1 % (45-73); Platelet Count 118 X10*3/uL (160-400); Red Blood Count 3.79 X10*6/uL (4.60-5.80); Red Cell Distribution Width 12.2 % (11.0-16.0); White Blood Count 4.3 X10*3/uL (4.8-10.8)
[2021-02-27 08:43] LABS: Anion Gap 9 (12-20); Carbon Dioxide 28 mmol/L (22-29); Chloride 105 mmol/L (96-108); Potassium 6.3 mmol/L (3.3-5.1); Sodium 136 mmol/L (135-145)
[2021-02-27 08:51] LABS: Alanine Aminotransferase 25 U/L (0-40); Albumin Level 4.3 g/dL (3.5-5.0); Alkaline Phosphatase 107 U/L (39-117); Aspartate Amino Transferase 21 U/L (5-37); Bilirubin Total 0.5 mg/dL (0.0-1.0); Blood Urea Nitrogen 24 mg/dL (9-16); Calcium 9.6 mg/dL (8.4-10.2); Estimated Glomerular Filt Rate 51; Glucose Fasting 183 mg/dL (60-99); Magnesium 1.7 mg/dL (1.6-2.6); Phosphorus 3.1 mg/dL (2.7-4.5); Total Protein 7.3 g/dL (6.5-8.0)
[2021-02-28 11:31] LABS: Tacrolimus Prograf 10.2 mcg/L
[2021-03-02 05:17] LABS: Cytomegalovirus Ab IgM <30.00 AU/mL
== END 2021-02-27 06:50 | disposition home or self-care (01) ==
LOC: HO.LABR 06:49
PROVIDERS: PCP Internal Medicine; Visit Provider Internal Medicine
DX: Z94.4 Liver transplant status (principal); Z79.899 Other long term (current) drug therapy
CPT/HCPCS: 36415; 80053; 80197; 83735; 84100; 85025; 86644; 86645

== ENCOUNTER 2021-03-01 08:33 | Outpatient (REF) | payer OTHER, SELFPAY ==
[2021-03-01 09:07] LABS: Hemoglobin 11.4 g/dl (14.0-18.0); Imm Gran Abs Auto 0.01 X10*3/uL (0.00-0.03); Imm Gran Pct Auto 0.2 % (0.0-0.4); Mean Corpuscular Volume 82.6 fL (80.0-98.0)
[2021-03-01 09:08] LABS: Basophils Percent Auto 0.7 % (0-2); Eosinophils Absolute Auto 0.1 X10*3/uL (0.0-0.4); Eosinophils Percent Auto 1.4 % (0-4); Hematocrit 31.9 % (42.0-52.0); Lymphocytes Absolute Auto 1.2 X10*3/uL (1.2-4.9); Lymphocytes Percent Auto 28.9 % (20-40); Mean Corpuscular HGB Conc 35.7 g/dl (31.0-36.0); Mean Corpuscular Hemoglobin 29.5 pg (27.0-33.0); Monocytes Absolute Auto 0.5 X10*3/uL (0.1-1.2); Neutrophils Absolute Auto 2.4 x10*3/uL (2.0-8.3); Neutrophils Percent Auto 56.8 % (45-73); Platelet Count 120 X10*3/uL (160-400); Red Blood Count 3.86 X10*6/uL (4.60-5.80); Red Cell Distribution Width 12.2 % (11.0-16.0); White Blood Count 4.3 X10*3/uL (4.8-10.8)
[2021-03-01 09:10] LABS: MANUAL DIFF FLAG NO
[2021-03-01 09:42] LABS: Alanine Aminotransferase 28 U/L (0-40); Albumin Level 4.4 g/dL (3.5-5.0); Alkaline Phosphatase 110 U/L (39-117); Anion Gap 8 (12-20); Aspartate Amino Transferase 25 U/L (5-37); Bilirubin Total 0.7 mg/dL (0.0-1.0); Blood Urea Nitrogen 27 mg/dL (9-16); Calcium 9.8 mg/dL (8.4-10.2); Carbon Dioxide 27 mmol/L (22-29); Chloride 103 mmol/L (96-108); Estimated Glomerular Filt Rate 46; Glucose Random 179 mg/dL (60-115); Magnesium 1.5 mg/dL (1.6-2.6); Phosphorus 3.8 mg/dL (2.7-4.5); Potassium 5.4 mmol/L (3.3-5.1); Sodium 133 mmol/L (135-145); Total Protein 7.3 g/dL (6.5-8.0)
[2021-03-02 08:00] LABS: Tacrolimus Prograf 7.8 mcg/L
[2021-03-04 09:41] LABS: CMV DNA PCR Qn Source Whole Blood; CMV DNA Qn PCR Not Detected log IU/mL; CMV DNA Qn Real Time PCR Not Detected
== END 2021-03-01 08:34 | disposition home or self-care (01) ==
LOC: HO.LABR 08:33
PROVIDERS: PCP Internal Medicine; Visit Provider Internal Medicine
DX: Z94.4 Liver transplant status (principal); Z79.899 Other long term (current) drug therapy
CPT/HCPCS: 36415; 80053; 80197; 83735; 84100; 85025; 87497

== ENCOUNTER 2021-03-05 06:54 | Outpatient (REF) | payer OTHER, SELFPAY ==
[2021-03-05 07:00] LABS: MANUAL DIFF FLAG NO
[2021-03-05 07:54] LABS: Basophils Percent Auto 0.6 % (0-2); Eosinophils Absolute Auto 0.1 X10*3/uL (0.0-0.4); Eosinophils Percent Auto 1.4 % (0-4); Hematocrit 31.2 % (42.0-52.0); Hemoglobin 11.3 g/dl (14.0-18.0); Lymphocytes Absolute Auto 1.3 X10*3/uL (1.2-4.9); Lymphocytes Percent Auto 36.2 % (20-40); Mean Corpuscular HGB Conc 36.2 g/dl (31.0-36.0); Mean Corpuscular Hemoglobin 30.3 pg (27.0-33.0); Mean Corpuscular Volume 83.6 fL (80.0-98.0); Mean Platelet Volume 10.8 fL (9.4-12.4); Monocytes Absolute Auto 0.4 X10*3/uL (0.1-1.2); Neutrophils Absolute Auto 1.8 x10*3/uL (2.0-8.3); Neutrophils Percent Auto 51.8 % (45-73); Platelet Count 118 X10*3/uL (160-400); Red Blood Count 3.73 X10*6/uL (4.60-5.80); Red Cell Distribution Width 12.6 % (11.0-16.0); White Blood Count 3.5 X10*3/uL (4.8-10.8)
[2021-03-05 08:34] LABS: Alanine Aminotransferase 26 U/L (0-40); Albumin Level 4.4 g/dL (3.5-5.0); Alkaline Phosphatase 99 U/L (39-117); Anion Gap 10 (12-20); Aspartate Amino Transferase 22 U/L (5-37); Bilirubin Total 0.4 mg/dL (0.0-1.0); Blood Urea Nitrogen 22 mg/dL (9-16); Calcium 9.7 mg/dL (8.4-10.2); Carbon Dioxide 25 mmol/L (22-29); Chloride 108 mmol/L (96-108); Estimated Glomerular Filt Rate 59; Glucose Random 56 mg/dL (60-115); Magnesium 1.7 mg/dL (1.6-2.6); Potassium 4.5 mmol/L (3.3-5.1); Sodium 138 mmol/L (135-145); Total Protein 7.3 g/dL (6.5-8.0)
[2021-03-06 09:41] LABS: Tacrolimus Prograf 4.7 mcg/L
== END 2021-03-05 06:55 | disposition home or self-care (01) ==
LOC: HO.LABR 06:54
PROVIDERS: PCP Internal Medicine; Visit Provider Internal Medicine
DX: Z94.4 Liver transplant status (principal); Z79.899 Other long term (current) drug therapy
CPT/HCPCS: 36415; 80053; 80197; 83735; 85025

== ENCOUNTER 2021-03-12 08:17 | Outpatient (REF) | payer OTHER, SELFPAY ==
[2021-03-12 08:32] LABS: MANUAL DIFF FLAG NO
[2021-03-12 09:13] LABS: Basophils Percent Auto 0.5 % (0-2); Eosinophils Absolute Auto 0.1 X10*3/uL (0.0-0.4); Eosinophils Percent Auto 1.6 % (0-4); Hematocrit 32.5 % (42.0-52.0); Hemoglobin 11.4 g/dl (14.0-18.0); Imm Gran Abs Auto 0.01 X10*3/uL (0.00-0.03); Imm Gran Pct Auto 0.3 % (0.0-0.4); Lymphocytes Absolute Auto 1.2 X10*3/uL (1.2-4.9); Lymphocytes Percent Auto 32.9 % (20-40); Mean Corpuscular HGB Conc 35.1 g/dl (31.0-36.0); Mean Corpuscular Hemoglobin 29.5 pg (27.0-33.0); Mean Platelet Volume 10.6 fL (9.4-12.4); Monocytes Absolute Auto 0.4 X10*3/uL (0.1-1.2); Monocytes Percent Auto 9.4 % (2-11); Neutrophils Absolute Auto 2.1 x10*3/uL (2.0-8.3); Neutrophils Percent Auto 55.3 % (45-73); Platelet Count 110 X10*3/uL (160-400); Red Blood Count 3.87 X10*6/uL (4.60-5.80); Red Cell Distribution Width 12.5 % (11.0-16.0); White Blood Count 3.7 X10*3/uL (4.8-10.8)
[2021-03-12 09:24] LABS: Alanine Aminotransferase 105 U/L (0-40); Albumin Level 4.2 g/dL (3.5-5.0); Alkaline Phosphatase 172 U/L (39-117); Anion Gap 10 (12-20); Aspartate Amino Transferase 203 U/L (5-37); Bilirubin Total 0.6 mg/dL (0.0-1.0); Blood Urea Nitrogen 29 mg/dL (9-16); Calcium 9.3 mg/dL (8.4-10.2); Carbon Dioxide 27 mmol/L (22-29); Chloride 107 mmol/L (96-108); Estimated Glomerular Filt Rate 49; Glucose Random 220 mg/dL (60-115); Magnesium 1.7 mg/dL (1.6-2.6); Potassium 4.9 mmol/L (3.3-5.1); Sodium 139 mmol/L (135-145); Total Protein 6.9 g/dL (6.5-8.0)
[2021-03-13 11:21] LABS: Tacrolimus Prograf 5.8 mcg/L
== END 2021-03-12 08:18 | disposition home or self-care (01) ==
LOC: HO.LABR 08:17
PROVIDERS: PCP Internal Medicine; Visit Provider Internal Medicine
DX: Z94.4 Liver transplant status (principal); Z79.899 Other long term (current) drug therapy
CPT/HCPCS: 36415; 80053; 80197; 83735; 85025

== ENCOUNTER 2021-03-19 07:11 | Outpatient (REF) | payer OTHER, SELFPAY ==
[2021-03-19 07:29] LABS: MANUAL DIFF FLAG NO
[2021-03-19 08:00] LABS: Basophils Percent Auto 0.7 % (0-2); Eosinophils Absolute Auto 0.1 X10*3/uL (0.0-0.4); Eosinophils Percent Auto 1.2 % (0-4); Hematocrit 33.6 % (42.0-52.0); Hemoglobin 11.9 g/dl (14.0-18.0); Imm Gran Abs Auto 0.01 X10*3/uL (0.00-0.03); Imm Gran Pct Auto 0.2 % (0.0-0.4); Lymphocytes Absolute Auto 1.2 X10*3/uL (1.2-4.9); Lymphocytes Percent Auto 30.2 % (20-40); Mean Corpuscular HGB Conc 35.4 g/dl (31.0-36.0); Mean Corpuscular Hemoglobin 30.1 pg (27.0-33.0); Mean Corpuscular Volume 85.1 fL (80.0-98.0); Mean Platelet Volume 10.7 fL (9.4-12.4); Monocytes Absolute Auto 0.4 X10*3/uL (0.1-1.2); Monocytes Percent Auto 8.7 % (2-11); Neutrophils Absolute Auto 2.4 x10*3/uL (2.0-8.3); Platelet Count 117 X10*3/uL (160-400); Red Blood Count 3.95 X10*6/uL (4.60-5.80); Red Cell Distribution Width 12.2 % (11.0-16.0)
[2021-03-19 09:03] LABS: Alanine Aminotransferase 35 U/L (0-40); Albumin Level 4.4 g/dL (3.5-5.0); Alkaline Phosphatase 125 U/L (39-117); Anion Gap 9 (12-20); Aspartate Amino Transferase 19 U/L (5-37); Bilirubin Total 0.5 mg/dL (0.0-1.0); Blood Urea Nitrogen 25 mg/dL (9-16); Calcium 9.7 mg/dL (8.4-10.2); Carbon Dioxide 26 mmol/L (22-29); Chloride 107 mmol/L (96-108); Estimated Glomerular Filt Rate 52; Glucose Random 232 mg/dL (60-115); Magnesium 1.4 mg/dL (1.6-2.6); Sodium 137 mmol/L (135-145); Total Protein 7.2 g/dL (6.5-8.0)
[2021-03-20 07:51] LABS: Tacrolimus Prograf 5.2 mcg/L
== END 2021-03-19 07:12 | disposition home or self-care (01) ==
LOC: HO.LABR 07:11
PROVIDERS: PCP Internal Medicine; Visit Provider Internal Medicine
DX: Z94.4 Liver transplant status (principal); Z79.899 Other long term (current) drug therapy
CPT/HCPCS: 36415; 80053; 80197; 83735; 85025

== ENCOUNTER → 2021-03-20 13:56 | Outpatient (BNVA) | payer OTHER, SELFPAY | PROVIDERS: PCP Internal Medicine; Visit Provider Urology | DX: N52.01 Erectile dysfunction due to arterial insufficiency (principal) | CPT/HCPCS: Q3014 ==

== ENCOUNTER 2021-03-26 07:08 | Outpatient (REF) | payer OTHER, SELFPAY ==
[2021-03-26 08:01] LABS: Lymphocytes Percent Auto 16.2 % (20-40); Mean Corpuscular HGB Conc 34.7 g/dl (31.0-36.0); Red Cell Distribution Width 12.3 % (11.0-16.0)
[2021-03-26 08:03] LABS: Basophils Percent Auto 0.2 % (0-2); Eosinophils Absolute Auto 0.1 X10*3/uL (0.0-0.4); Eosinophils Percent Auto 1.1 % (0-4); Hematocrit 31.7 % (42.0-52.0); Imm Gran Abs Auto 0.01 X10*3/uL (0.00-0.03); Imm Gran Pct Auto 0.2 % (0.0-0.4); Lymphocytes Absolute Auto 0.8 X10*3/uL (1.2-4.9); Mean Corpuscular Hemoglobin 29.3 pg (27.0-33.0); Mean Corpuscular Volume 84.5 fL (80.0-98.0); Mean Platelet Volume 11.3 fL (9.4-12.4); Monocytes Absolute Auto 0.5 X10*3/uL (0.1-1.2); Monocytes Percent Auto 9.7 % (2-11); Neutrophils Absolute Auto 3.4 x10*3/uL (2.0-8.3); Neutrophils Percent Auto 72.6 % (45-73); Red Blood Count 3.75 X10*6/uL (4.60-5.80)
[2021-03-26 08:06] LABS: White Blood Count 4.7 X10*3/uL (4.8-10.8)
[2021-03-26 08:08] LABS: MANUAL DIFF FLAG NO
[2021-03-26 08:21] LABS: Platelet Count 93 X10*3/uL (160-400)
[2021-03-26 08:37] LABS: Alanine Aminotransferase 32 U/L (0-40); Albumin Level 4.1 g/dL (3.5-5.0); Alkaline Phosphatase 112 U/L (39-117); Anion Gap 14 (12-20); Aspartate Amino Transferase 24 U/L (5-37); Bilirubin Total 0.6 mg/dL (0.0-1.0); Blood Urea Nitrogen 19 mg/dL (9-16); Carbon Dioxide 24 mmol/L (22-29); Chloride 105 mmol/L (96-108); Estimated Glomerular Filt Rate 50; Glucose Random 411 mg/dL (60-115); Magnesium 1.6 mg/dL (1.6-2.6); Potassium 4.9 mmol/L (3.3-5.1); Sodium 138 mmol/L (135-145); Total Protein 6.9 g/dL (6.5-8.0)
[2021-03-27 17:16] LABS: Tacrolimus Prograf 4.3 mcg/L
== END 2021-03-26 07:09 | disposition home or self-care (01) ==
LOC: HO.LABR 07:08
PROVIDERS: PCP Internal Medicine; Visit Provider Internal Medicine
DX: Z94.4 Liver transplant status (principal); Z79.899 Other long term (current) drug therapy
CPT/HCPCS: 36415; 80053; 80197; 83735; 85025

== ENCOUNTER 2021-04-02 07:29 | Outpatient (REF) | payer OTHER, SELFPAY ==
[2021-04-02 08:58] LABS: Alanine Aminotransferase 29 U/L (0-40); Alkaline Phosphatase 97 U/L (39-117); Anion Gap 9 (12-20); Aspartate Amino Transferase 22 U/L (5-37); Bilirubin Total 0.3 mg/dL (0.0-1.0); Blood Urea Nitrogen 22 mg/dL (9-16); Calcium 9.2 mg/dL (8.4-10.2); Carbon Dioxide 27 mmol/L (22-29); Chloride 105 mmol/L (96-108); Estimated Glomerular Filt Rate 45; Magnesium 1.6 mg/dL (1.6-2.6); Potassium 5.4 mmol/L (3.3-5.1); Sodium 136 mmol/L (135-145); Total Protein 6.7 g/dL (6.5-8.0)
[2021-04-02 10:26] LABS: Glucose Random 413 mg/dL (60-115)
[2021-04-03 09:51] LABS: Tacrolimus Prograf 5.3 mcg/L
== END 2021-04-02 07:30 | disposition home or self-care (01) ==
LOC: HO.LAB 07:29
PROVIDERS: PCP Internal Medicine; Visit Provider Internal Medicine
DX: Z94.4 Liver transplant status (principal); Z79.899 Other long term (current) drug therapy
CPT/HCPCS: 36415; 80053; 80197; 83735

== ENCOUNTER 2021-04-11 07:05 | Outpatient (REF) | payer OTHER, SELFPAY ==
[2021-04-11 07:21] LABS: MANUAL DIFF FLAG NO
[2021-04-11 07:51] LABS: Basophils Percent Auto 0.3 % (0-2); Eosinophils Percent Auto 1.3 % (0-4); Hematocrit 33.5 % (42.0-52.0); Hemoglobin 11.5 g/dl (14.0-18.0); Imm Gran Abs Auto 0.01 X10*3/uL (0.00-0.03); Imm Gran Pct Auto 0.3 % (0.0-0.4); Lymphocytes Absolute Auto 0.8 X10*3/uL (1.2-4.9); Lymphocytes Percent Auto 26.4 % (20-40); Mean Corpuscular HGB Conc 34.3 g/dl (31.0-36.0); Mean Corpuscular Hemoglobin 29.3 pg (27.0-33.0); Mean Corpuscular Volume 85.2 fL (80.0-98.0); Monocytes Absolute Auto 0.3 X10*3/uL (0.1-1.2); Monocytes Percent Auto 8.2 % (2-11); Neutrophils Percent Auto 63.5 % (45-73); Platelet Count 103 X10*3/uL (160-400); Red Blood Count 3.93 X10*6/uL (4.60-5.80); Red Cell Distribution Width 12.5 % (11.0-16.0); White Blood Count 3.2 X10*3/uL (4.8-10.8)
[2021-04-11 08:27] LABS: Alanine Aminotransferase 34 U/L (0-40); Albumin Level 4.2 g/dL (3.5-5.0); Alkaline Phosphatase 100 U/L (39-117); Anion Gap 11 (12-20); Aspartate Amino Transferase 25 U/L (5-37); Bilirubin Total 0.5 mg/dL (0.0-1.0); Blood Urea Nitrogen 23 mg/dL (9-16); Calcium 9.7 mg/dL (8.4-10.2); Carbon Dioxide 26 mmol/L (22-29); Chloride 106 mmol/L (96-108); Estimated Glomerular Filt Rate 48; Glucose Random 460 mg/dL (60-115); Magnesium 1.6 mg/dL (1.6-2.6); Potassium 5.5 mmol/L (3.3-5.1); Sodium 137 mmol/L (135-145)
[2021-04-12 09:56] LABS: Tacrolimus Prograf 5.3 mcg/L
== END 2021-04-11 07:06 | disposition home or self-care (01) ==
LOC: HO.LABR 07:05
PROVIDERS: PCP Internal Medicine; Visit Provider Internal Medicine
DX: Z94.4 Liver transplant status (principal); Z79.899 Other long term (current) drug therapy
CPT/HCPCS: 36415; 80053; 80197; 83735; 85025

== ENCOUNTER 2021-04-17 08:21 | Outpatient (REF) | payer OTHER, SELFPAY ==
[2021-04-17 08:35] LABS: MANUAL DIFF FLAG NO
[2021-04-17 08:52] LABS: Basophils Percent Auto 0.5 % (0-2); Eosinophils Absolute Auto 0.1 X10*3/uL (0.0-0.4); Eosinophils Percent Auto 1.9 % (0-4); Hematocrit 35.9 % (42.0-52.0); Hemoglobin 12.3 g/dl (14.0-18.0); Imm Gran Abs Auto 0.01 X10*3/uL (0.00-0.03); Imm Gran Pct Auto 0.3 % (0.0-0.4); Lymphocytes Absolute Auto 1.4 X10*3/uL (1.2-4.9); Lymphocytes Percent Auto 37.4 % (20-40); Mean Corpuscular HGB Conc 34.3 g/dl (31.0-36.0); Mean Corpuscular Hemoglobin 29.1 pg (27.0-33.0); Mean Corpuscular Volume 84.9 fL (80.0-98.0); Mean Platelet Volume 10.9 fL (9.4-12.4); Monocytes Absolute Auto 0.5 X10*3/uL (0.1-1.2); Monocytes Percent Auto 12.4 % (2-11); Neutrophils Absolute Auto 1.7 x10*3/uL (2.0-8.3); Neutrophils Percent Auto 47.5 % (45-73); Platelet Count 104 X10*3/uL (160-400); Red Blood Count 4.23 X10*6/uL (4.60-5.80); Red Cell Distribution Width 12.5 % (11.0-16.0); White Blood Count 3.6 X10*3/uL (4.8-10.8)
[2021-04-17 09:16] LABS: Alanine Aminotransferase 43 U/L (0-40); Albumin Level 4.3 g/dL (3.5-5.0); Alkaline Phosphatase 107 U/L (39-117); Anion Gap 8 (12-20); Aspartate Amino Transferase 32 U/L (5-37); Bilirubin Total 0.7 mg/dL (0.0-1.0); Blood Urea Nitrogen 22 mg/dL (9-16); Carbon Dioxide 28 mmol/L (22-29); Chloride 105 mmol/L (96-108); Estimated Glomerular Filt Rate 54; Glucose Random 208 mg/dL (60-115); Magnesium 1.6 mg/dL (1.6-2.6); Potassium 4.9 mmol/L (3.3-5.1); Sodium 136 mmol/L (135-145); Total Protein 7.2 g/dL (6.5-8.0)
== END 2021-04-17 08:22 | disposition home or self-care (01) ==
LOC: HO.LABR 08:21
PROVIDERS: Visit Provider Internal Medicine
DX: Z94.4 Liver transplant status (principal); Z79.899 Other long term (current) drug therapy
CPT/HCPCS: 36415; 80053; 80197; 83735; 85025

== ENCOUNTER 2021-04-24 10:31 | Outpatient (REF) | payer OTHER, SELFPAY ==
[2021-04-24 10:56] LABS: MANUAL DIFF FLAG NO
[2021-04-24 12:05] LABS: Basophils Percent Auto 1.2 % (0-2); Eosinophils Percent Auto 0.9 % (0-4); Hematocrit 34.8 % (42.0-52.0); Hemoglobin 12.2 g/dl (14.0-18.0); Imm Gran Abs Auto 0.01 X10*3/uL (0.00-0.03); Imm Gran Pct Auto 0.3 % (0.0-0.4); Lymphocytes Percent Auto 28.7 % (20-40); Mean Corpuscular HGB Conc 35.1 g/dl (31.0-36.0); Mean Corpuscular Hemoglobin 29.3 pg (27.0-33.0); Mean Corpuscular Volume 83.5 fL (80.0-98.0); Mean Platelet Volume 11.5 fL (9.4-12.4); Monocytes Absolute Auto 0.3 X10*3/uL (0.1-1.2); Monocytes Percent Auto 7.9 % (2-11); Neutrophils Absolute Auto 2.1 x10*3/uL (2.0-8.3); Platelet Count 129 X10*3/uL (160-400); Red Blood Count 4.17 X10*6/uL (4.60-5.80); Red Cell Distribution Width 12.1 % (11.0-16.0); White Blood Count 3.4 X10*3/uL (4.8-10.8)
[2021-04-24 12:53] LABS: Alanine Aminotransferase 38 U/L (0-40); Albumin Level 4.6 g/dL (3.5-5.0); Alkaline Phosphatase 122 U/L (39-117); Anion Gap 10 (12-20); Aspartate Amino Transferase 21 U/L (5-37); Bilirubin Total 0.4 mg/dL (0.0-1.0); Blood Urea Nitrogen 32 mg/dL (9-16); Calcium 10.5 mg/dL (8.4-10.2); Carbon Dioxide 26 mmol/L (22-29); Chloride 107 mmol/L (96-108); Estimated Glomerular Filt Rate 44; Glucose Random 344 mg/dL (60-115); Magnesium 1.7 mg/dL (1.6-2.6); Potassium 5.9 mmol/L (3.3-5.1); Sodium 137 mmol/L (135-145); Total Protein 7.6 g/dL (6.5-8.0)
[2021-04-25 06:46] LABS: Tacrolimus Prograf 5.4 mcg/L
== END 2021-04-24 10:32 | disposition home or self-care (01) ==
LOC: HO.LABR 10:31
PROVIDERS: Visit Provider Internal Medicine
DX: Z94.4 Liver transplant status (principal); Z79.899 Other long term (current) drug therapy
CPT/HCPCS: 36415; 80053; 80197; 83735; 85025

== ENCOUNTER 2021-05-01 07:03 | Outpatient (REF) | payer OTHER, SELFPAY ==
[2021-05-01 07:15] LABS: MANUAL DIFF FLAG NO
[2021-05-01 07:30] LABS: Basophils Percent Auto 0.7 % (0-2); Eosinophils Absolute Auto 0.1 X10*3/uL (0.0-0.4); Eosinophils Percent Auto 1.4 % (0-4); Hematocrit 33.2 % (42.0-52.0); Hemoglobin 11.6 g/dl (14.0-18.0); Imm Gran Abs Auto 0.01 X10*3/uL (0.00-0.03); Imm Gran Pct Auto 0.2 % (0.0-0.4); Lymphocytes Absolute Auto 1.3 X10*3/uL (1.2-4.9); Lymphocytes Percent Auto 29.9 % (20-40); Mean Corpuscular HGB Conc 34.9 g/dl (31.0-36.0); Mean Platelet Volume 10.9 fL (9.4-12.4); Monocytes Absolute Auto 0.4 X10*3/uL (0.1-1.2); Monocytes Percent Auto 9.9 % (2-11); Neutrophils Absolute Auto 2.5 x10*3/uL (2.0-8.3); Neutrophils Percent Auto 57.9 % (45-73); Platelet Count 109 X10*3/uL (160-400); Red Cell Distribution Width 11.9 % (11.0-16.0); White Blood Count 4.3 X10*3/uL (4.8-10.8)
[2021-05-01 07:53] LABS: Alanine Aminotransferase 34 U/L (0-40); Albumin Level 4.3 g/dL (3.5-5.0); Alkaline Phosphatase 94 U/L (39-117); Anion Gap 11 (12-20); Aspartate Amino Transferase 22 U/L (5-37); Bilirubin Total 0.6 mg/dL (0.0-1.0); Blood Urea Nitrogen 33 mg/dL (9-16); Calcium 9.4 mg/dL (8.4-10.2); Carbon Dioxide 24 mmol/L (22-29); Chloride 107 mmol/L (96-108); Estimated Glomerular Filt Rate 45; Magnesium 1.7 mg/dL (1.6-2.6); Potassium 5.5 mmol/L (3.3-5.1); Sodium 136 mmol/L (135-145); Total Protein 7.1 g/dL (6.5-8.0)
[2021-05-01 08:19] LABS: Glucose Random 393 mg/dL (60-115)
== END 2021-05-01 07:04 | disposition home or self-care (01) ==
LOC: HO.LABR 07:03
PROVIDERS: PCP Internal Medicine; Visit Provider Internal Medicine
DX: Z94.4 Liver transplant status (principal); Z79.899 Other long term (current) drug therapy
CPT/HCPCS: 36415; 80053; 80197; 83735; 85025

== ENCOUNTER 2021-05-08 07:04 | Outpatient (REF) | payer OTHER, SELFPAY ==
[2021-05-08 07:26] LABS: MANUAL DIFF FLAG NO
[2021-05-08 07:31] LABS: Basophils Percent Auto 0.9 % (0-2); Eosinophils Absolute Auto 0.1 X10*3/uL (0.0-0.4); Eosinophils Percent Auto 3.1 % (0-4); Hematocrit 33.3 % (42.0-52.0); Hemoglobin 11.8 g/dl (14.0-18.0); Imm Gran Abs Auto 0.01 X10*3/uL (0.00-0.03); Imm Gran Pct Auto 0.2 % (0.0-0.4); Lymphocytes Absolute Auto 1.4 X10*3/uL (1.2-4.9); Lymphocytes Percent Auto 31.6 % (20-40); Mean Corpuscular HGB Conc 35.4 g/dl (31.0-36.0); Mean Corpuscular Hemoglobin 29.1 pg (27.0-33.0); Mean Corpuscular Volume 82.2 fL (80.0-98.0); Mean Platelet Volume 10.5 fL (9.4-12.4); Monocytes Absolute Auto 0.4 X10*3/uL (0.1-1.2); Monocytes Percent Auto 8.2 % (2-11); Neutrophils Absolute Auto 2.5 x10*3/uL (2.0-8.3); Platelet Count 119 X10*3/uL (160-400); Red Blood Count 4.05 X10*6/uL (4.60-5.80); Red Cell Distribution Width 12.1 % (11.0-16.0); White Blood Count 4.5 X10*3/uL (4.8-10.8)
[2021-05-08 07:44] LABS: Alanine Aminotransferase 45 U/L (0-40); Albumin Level 4.3 g/dL (3.5-5.0); Alkaline Phosphatase 115 U/L (39-117); Anion Gap 10 (12-20); Aspartate Amino Transferase 31 U/L (5-37); Bilirubin Total 0.6 mg/dL (0.0-1.0); Blood Urea Nitrogen 32 mg/dL (9-16); Calcium 9.7 mg/dL (8.4-10.2); Carbon Dioxide 29 mmol/L (22-29); Chloride 106 mmol/L (96-108); Estimated Glomerular Filt Rate 49; Glucose Random 254 mg/dL (60-115); Magnesium 1.7 mg/dL (1.6-2.6); Potassium 5.2 mmol/L (3.3-5.1); Sodium 140 mmol/L (135-145); Total Protein 7.3 g/dL (6.5-8.0)
[2021-05-09 08:57] LABS: Tacrolimus Prograf 4.7 mcg/L
== END 2021-05-08 07:05 | disposition home or self-care (01) ==
LOC: HO.LABR 07:04
PROVIDERS: PCP Internal Medicine; Visit Provider Internal Medicine
DX: Z94.4 Liver transplant status (principal); Z79.899 Other long term (current) drug therapy
CPT/HCPCS: 36415; 80053; 80197; 83735; 85025

== ENCOUNTER 2021-05-13 08:22 | Outpatient (REF) | payer OTHER, SELFPAY ==
[2021-05-13 08:40] LABS: MANUAL DIFF FLAG NO
[2021-05-13 08:56] LABS: Basophils Percent Auto 0.6 % (0-2); Eosinophils Absolute Auto 0.1 X10*3/uL (0.0-0.4); Eosinophils Percent Auto 1.9 % (0-4); Hematocrit 31.4 % (42.0-52.0); Imm Gran Abs Auto 0.02 X10*3/uL (0.00-0.03); Imm Gran Pct Auto 0.4 % (0.0-0.4); Lymphocytes Absolute Auto 1.4 X10*3/uL (1.2-4.9); Lymphocytes Percent Auto 29.1 % (20-40); Mean Corpuscular Hemoglobin 29.5 pg (27.0-33.0); Mean Corpuscular Volume 84.2 fL (80.0-98.0); Mean Platelet Volume 10.6 fL (9.4-12.4); Monocytes Absolute Auto 0.5 X10*3/uL (0.1-1.2); Monocytes Percent Auto 10.6 % (2-11); Neutrophils Absolute Auto 2.7 x10*3/uL (2.0-8.3); Neutrophils Percent Auto 57.4 % (45-73); Platelet Count 110 X10*3/uL (160-400); Red Blood Count 3.73 X10*6/uL (4.60-5.80); Red Cell Distribution Width 12.3 % (11.0-16.0); White Blood Count 4.6 X10*3/uL (4.8-10.8)
[2021-05-13 09:20] LABS: Alanine Aminotransferase 42 U/L (0-40); Albumin Level 4.3 g/dL (3.5-5.0); Alkaline Phosphatase 100 U/L (39-117); Anion Gap 12 (12-20); Aspartate Amino Transferase 26 U/L (5-37); Bilirubin Total 0.4 mg/dL (0.0-1.0); Blood Urea Nitrogen 26 mg/dL (9-16); Calcium 9.6 mg/dL (8.4-10.2); Carbon Dioxide 24 mmol/L (22-29); Chloride 110 mmol/L (96-108); Estimated Glomerular Filt Rate 51; Glucose Random 108 mg/dL (60-115); Magnesium 1.7 mg/dL (1.6-2.6); Potassium 5.4 mmol/L (3.3-5.1); Sodium 141 mmol/L (135-145)
[2021-05-14 11:26] LABS: Tacrolimus Prograf 8.3 mcg/L
== END 2021-05-13 08:23 | disposition home or self-care (01) ==
LOC: HO.LABR 08:22
PROVIDERS: PCP Internal Medicine; Visit Provider Internal Medicine
DX: Z94.4 Liver transplant status (principal); Z79.4 Long term (current) use of insulin; Z79.84 Long term (current) use of oral hypoglycemic drugs; Z79.52 Long term (current) use of systemic steroids; Z79.899 Other long term (current) drug therapy
CPT/HCPCS: 36415; 80053; 80197; 83735; 85025; 99212

== ENCOUNTER 2021-05-22 07:11 | Outpatient (REF) | payer OTHER, SELFPAY ==
[2021-05-22 07:32] LABS: MANUAL DIFF FLAG NO
[2021-05-22 08:09] LABS: Basophils Percent Auto 0.7 % (0-2); Eosinophils Absolute Auto 0.1 X10*3/uL (0.0-0.4); Eosinophils Percent Auto 2.4 % (0-4); Hematocrit 33.3 % (42.0-52.0); Hemoglobin 11.6 g/dl (14.0-18.0); Lymphocytes Absolute Auto 1.2 X10*3/uL (1.2-4.9); Lymphocytes Percent Auto 28.1 % (20-40); Mean Corpuscular HGB Conc 34.8 g/dl (31.0-36.0); Mean Corpuscular Hemoglobin 29.1 pg (27.0-33.0); Mean Corpuscular Volume 83.5 fL (80.0-98.0); Mean Platelet Volume 10.7 fL (9.4-12.4); Monocytes Absolute Auto 0.3 X10*3/uL (0.1-1.2); Monocytes Percent Auto 8.2 % (2-11); Neutrophils Absolute Auto 2.5 x10*3/uL (2.0-8.3); Neutrophils Percent Auto 60.6 % (45-73); Platelet Count 111 X10*3/uL (160-400); Red Blood Count 3.99 X10*6/uL (4.60-5.80); Red Cell Distribution Width 12.5 % (11.0-16.0); White Blood Count 4.2 X10*3/uL (4.8-10.8)
[2021-05-22 08:55] LABS: Alanine Aminotransferase 36 U/L (0-40); Albumin Level 4.3 g/dL (3.5-5.0); Alkaline Phosphatase 92 U/L (39-117); Anion Gap 9 (12-20); Aspartate Amino Transferase 25 U/L (5-37); Bilirubin Total 0.6 mg/dL (0.0-1.0); Blood Urea Nitrogen 20 mg/dL (9-16); Calcium 9.9 mg/dL (8.4-10.2); Carbon Dioxide 28 mmol/L (22-29); Chloride 107 mmol/L (96-108); Estimated Glomerular Filt Rate 54; Glucose Random 245 mg/dL (60-115); Magnesium 1.5 mg/dL (1.6-2.6); Potassium 5.1 mmol/L (3.3-5.1); Sodium 139 mmol/L (135-145); Total Protein 7.1 g/dL (6.5-8.0)
[2021-05-23 11:02] LABS: Tacrolimus Prograf 4.5 mcg/L
== END 2021-05-22 07:12 | disposition home or self-care (01) ==
LOC: HO.LABR 07:11
PROVIDERS: PCP Internal Medicine; Visit Provider Internal Medicine
DX: Z94.4 Liver transplant status (principal); Z79.899 Other long term (current) drug therapy
CPT/HCPCS: 36415; 80053; 80197; 83735; 85025

== ENCOUNTER 2021-05-29 06:46 | Outpatient (REF) | payer OTHER, SELFPAY ==
[2021-05-29 06:58] LABS: MANUAL DIFF FLAG NO
[2021-05-29 07:22] LABS: Basophils Percent Auto 0.5 % (0-2); Eosinophils Absolute Auto 0.1 X10*3/uL (0.0-0.4); Eosinophils Percent Auto 2.1 % (0-4); Hematocrit 34.4 % (42.0-52.0); Hemoglobin 12.1 g/dl (14.0-18.0); Imm Gran Abs Auto 0.01 X10*3/uL (0.00-0.03); Imm Gran Pct Auto 0.2 % (0.0-0.4); Lymphocytes Absolute Auto 1.3 X10*3/uL (1.2-4.9); Lymphocytes Percent Auto 30.9 % (20-40); Mean Corpuscular HGB Conc 35.2 g/dl (31.0-36.0); Mean Corpuscular Hemoglobin 28.9 pg (27.0-33.0); Mean Corpuscular Volume 82.3 fL (80.0-98.0); Mean Platelet Volume 10.5 fL (9.4-12.4); Monocytes Absolute Auto 0.4 X10*3/uL (0.1-1.2); Monocytes Percent Auto 9.7 % (2-11); Neutrophils Absolute Auto 2.5 x10*3/uL (2.0-8.3); Neutrophils Percent Auto 56.6 % (45-73); Platelet Count 116 X10*3/uL (160-400); Red Blood Count 4.18 X10*6/uL (4.60-5.80); Red Cell Distribution Width 12.6 % (11.0-16.0); White Blood Count 4.3 X10*3/uL (4.8-10.8)
[2021-05-29 07:51] LABS: Alanine Aminotransferase 41 U/L (0-40); Albumin Level 4.3 g/dL (3.5-5.0); Alkaline Phosphatase 97 U/L (39-117); Anion Gap 11 (12-20); Aspartate Amino Transferase 25 U/L (5-37); Bilirubin Total 0.8 mg/dL (0.0-1.0); Blood Urea Nitrogen 20 mg/dL (9-16); Calcium 9.6 mg/dL (8.4-10.2); Carbon Dioxide 25 mmol/L (22-29); Chloride 106 mmol/L (96-108); Estimated Glomerular Filt Rate 53; Glucose Random 326 mg/dL (60-115); Magnesium 1.5 mg/dL (1.6-2.6); Potassium 4.6 mmol/L (3.3-5.1); Sodium 137 mmol/L (135-145); Total Protein 7.1 g/dL (6.5-8.0)
[2021-05-30 05:31] LABS: Tacrolimus Prograf 3.3 mcg/L
== END 2021-05-29 06:47 | disposition home or self-care (01) ==
LOC: HO.LABR 06:46
PROVIDERS: PCP Internal Medicine; Visit Provider Internal Medicine
DX: Z94.4 Liver transplant status (principal); Z79.899 Other long term (current) drug therapy
CPT/HCPCS: 36415; 80053; 80197; 83735; 85025

== ENCOUNTER 2021-06-05 07:06 | Outpatient (REF) | payer OTHER, SELFPAY ==
[2021-06-05 07:22] LABS: MANUAL DIFF FLAG NO
[2021-06-05 08:27] LABS: Basophils Percent Auto 0.6 % (0-2); Eosinophils Absolute Auto 0.1 X10*3/uL (0.0-0.4); Eosinophils Percent Auto 1.7 % (0-4); Hematocrit 33.9 % (42.0-52.0); Imm Gran Abs Auto 0.01 X10*3/uL (0.00-0.03); Imm Gran Pct Auto 0.2 % (0.0-0.4); Lymphocytes Absolute Auto 1.9 X10*3/uL (1.2-4.9); Lymphocytes Percent Auto 34.3 % (20-40); Mean Corpuscular HGB Conc 35.4 g/dl (31.0-36.0); Mean Corpuscular Hemoglobin 29.3 pg (27.0-33.0); Mean Corpuscular Volume 82.9 fL (80.0-98.0); Monocytes Absolute Auto 0.5 X10*3/uL (0.1-1.2); Monocytes Percent Auto 9.8 % (2-11); Neutrophils Absolute Auto 2.9 x10*3/uL (2.0-8.3); Neutrophils Percent Auto 53.4 % (45-73); Platelet Count 126 X10*3/uL (160-400); Red Blood Count 4.09 X10*6/uL (4.60-5.80); Red Cell Distribution Width 12.6 % (11.0-16.0); White Blood Count 5.4 X10*3/uL (4.8-10.8)
[2021-06-05 08:58] LABS: Alanine Aminotransferase 30 U/L (0-40); Albumin Level 4.4 g/dL (3.5-5.0); Alkaline Phosphatase 96 U/L (39-117); Anion Gap 11 (12-20); Aspartate Amino Transferase 23 U/L (5-37); Bilirubin Total 0.4 mg/dL (0.0-1.0); Blood Urea Nitrogen 18 mg/dL (9-16); Calcium 9.8 mg/dL (8.4-10.2); Carbon Dioxide 27 mmol/L (22-29); Chloride 105 mmol/L (96-108); Estimated Glomerular Filt Rate > 60; Glucose Random 168 mg/dL (60-115); Magnesium 1.5 mg/dL (1.6-2.6); Potassium 5.2 mmol/L (3.3-5.1); Sodium 138 mmol/L (135-145); Total Protein 7.2 g/dL (6.5-8.0)
[2021-06-06 06:57] LABS: Tacrolimus Prograf 6.1 mcg/L
== END 2021-06-05 07:07 | disposition home or self-care (01) ==
LOC: HO.LABR 07:06
PROVIDERS: PCP Internal Medicine; Visit Provider Internal Medicine
DX: Z94.4 Liver transplant status (principal); Z79.899 Other long term (current) drug therapy
CPT/HCPCS: 36415; 80053; 80197; 83735; 85025

== ENCOUNTER 2021-06-13 10:45 | Outpatient (REF) | payer OTHER, SELFPAY ==
[2021-06-13 08:48] LABS: MANUAL DIFF FLAG NO
[2021-06-13 09:35] LABS: Basophils Percent Auto 0.5 % (0-2); Eosinophils Absolute Auto 0.1 X10*3/uL (0.0-0.4); Eosinophils Percent Auto 1.2 % (0-4); Hematocrit 34.4 % (42.0-52.0); Hemoglobin 11.8 g/dl (14.0-18.0); Imm Gran Abs Auto 0.03 X10*3/uL (0.00-0.03); Imm Gran Pct Auto 0.7 % (0.0-0.4); Lymphocytes Absolute Auto 1.4 X10*3/uL (1.2-4.9); Lymphocytes Percent Auto 33.1 % (20-40); Mean Corpuscular HGB Conc 34.3 g/dl (31.0-36.0); Mean Corpuscular Hemoglobin 29.1 pg (27.0-33.0); Mean Corpuscular Volume 84.7 fL (80.0-98.0); Mean Platelet Volume 11.1 fL (9.4-12.4); Monocytes Absolute Auto 0.5 X10*3/uL (0.1-1.2); Monocytes Percent Auto 11.8 % (2-11); Neutrophils Absolute Auto 2.2 x10*3/uL (2.0-8.3); Neutrophils Percent Auto 52.7 % (45-73); Platelet Count 109 X10*3/uL (160-400); Red Blood Count 4.06 X10*6/uL (4.60-5.80); White Blood Count 4.2 X10*3/uL (4.8-10.8)
[2021-06-13 09:59] LABS: Alanine Aminotransferase 26 U/L (0-40); Albumin Level 4.2 g/dL (3.5-5.0); Alkaline Phosphatase 92 U/L (39-117); Anion Gap 10 (12-20); Aspartate Amino Transferase 21 U/L (5-37); Bilirubin Total 0.8 mg/dL (0.0-1.0); Blood Urea Nitrogen 22 mg/dL (9-16); Calcium 9.3 mg/dL (8.4-10.2); Carbon Dioxide 26 mmol/L (22-29); Chloride 107 mmol/L (96-108); Estimated Glomerular Filt Rate 55; Glucose Random 163 mg/dL (60-115); Magnesium 1.7 mg/dL (1.6-2.6); Sodium 138 mmol/L (135-145); Total Protein 6.8 g/dL (6.5-8.0)
== END 2021-06-13 10:46 | disposition home or self-care (01) ==
LOC: HO.LABR 10:45
PROVIDERS: PCP Internal Medicine; Visit Provider Internal Medicine
DX: Z94.4 Liver transplant status (principal); Z79.899 Other long term (current) drug therapy
CPT/HCPCS: 36415; 80053; 83735; 85025

== ENCOUNTER 2021-06-19 07:18 | Outpatient (REF) | payer OTHER, SELFPAY ==
[2021-06-19 07:40] LABS: MANUAL DIFF FLAG NO
[2021-06-19 08:20] LABS: Basophils Percent Auto 0.5 % (0-2); Eosinophils Absolute Auto 0.1 X10*3/uL (0.0-0.4); Eosinophils Percent Auto 1.2 % (0-4); Hemoglobin 11.6 g/dl (14.0-18.0); Imm Gran Abs Auto 0.01 X10*3/uL (0.00-0.03); Imm Gran Pct Auto 0.2 % (0.0-0.4); Lymphocytes Absolute Auto 1.1 X10*3/uL (1.2-4.9); Lymphocytes Percent Auto 26.5 % (20-40); Mean Corpuscular HGB Conc 35.2 g/dl (31.0-36.0); Mean Corpuscular Hemoglobin 29.2 pg (27.0-33.0); Mean Corpuscular Volume 83.1 fL (80.0-98.0); Mean Platelet Volume 10.8 fL (9.4-12.4); Monocytes Absolute Auto 0.4 X10*3/uL (0.1-1.2); Monocytes Percent Auto 9.3 % (2-11); Neutrophils Absolute Auto 2.5 x10*3/uL (2.0-8.3); Neutrophils Percent Auto 62.3 % (45-73); Platelet Count 112 X10*3/uL (160-400); Red Blood Count 3.97 X10*6/uL (4.60-5.80); Red Cell Distribution Width 12.7 % (11.0-16.0); White Blood Count 4.1 X10*3/uL (4.8-10.8)
[2021-06-19 08:48] LABS: Alanine Aminotransferase 28 U/L (0-40); Albumin Level 4.3 g/dL (3.5-5.0); Alkaline Phosphatase 99 U/L (39-117); Anion Gap 10 (12-20); Aspartate Amino Transferase 21 U/L (5-37); Bilirubin Total 0.4 mg/dL (0.0-1.0); Blood Urea Nitrogen 25 mg/dL (9-16); Calcium 9.8 mg/dL (8.4-10.2); Carbon Dioxide 27 mmol/L (22-29); Chloride 106 mmol/L (96-108); Estimated Glomerular Filt Rate 48; Glucose Random 286 mg/dL (60-115); Magnesium 1.5 mg/dL (1.6-2.6); Potassium 5.4 mmol/L (3.3-5.1); Sodium 138 mmol/L (135-145)
[2021-06-20 06:47] LABS: Tacrolimus Prograf 6.6 mcg/L
== END 2021-06-19 07:19 | disposition home or self-care (01) ==
LOC: HO.LABR 07:18
PROVIDERS: PCP Internal Medicine; Visit Provider Internal Medicine
DX: Z94.4 Liver transplant status (principal); Z79.899 Other long term (current) drug therapy
CPT/HCPCS: 36415; 80053; 80197; 83735; 85025

== ENCOUNTER 2021-06-21 08:39 | Outpatient (REF) | payer OTHER, SELFPAY ==
--- NOTE | ~2021-06-21 | US_ITS ---
EXAMINATION: US ABDOMEN COMPLETE AND LIVER DOPPLER EXAM CLINICAL INFORMATION: Right upper quadrant pain. History of liver transplant. COMPARISON: Previous CT of the abdomen and pelvis July 2020 and abdominal ultrasound most recent May 2020 TECHNIQUE: Real-time imaging of the abdominal viscera. Wayne-scale and color imaging of the liver vasculature including waveform spectral analysis. FINDINGS: PANCREAS: Not well visualized. ABDOMINAL AORTA: The proximal and mid abdominal aorta are not well visualized due to bowel gas. The distal abdominal aorta is normal in caliber. INFERIOR VENA CAVA: Visualized portions are normal. LIVER: Normal. The liver is normal in size. The liver contour is normal. Parenchymal echogenicity is normal. No focal hepatic lesion. There is no intrahepatic biliary duct dilatation seen. GALLBLADDER: Surgically removed. COMMON BILE DUCT: Normal in caliber measuring 0.9 cm in diameter. RIGHT KIDNEY: Normal. No hydronephrosis. No renal calculi or focal parenchymal lesions. The kidney measures 10 cm in maximum dimension. LEFT KIDNEY: Normal. No hydronephrosis. No renal calculi or focal parenchymal lesions. The kidney measures 13 cm in maximum dimension. SPLEEN: Slightly enlarged. The spleen measures 13 cm in maximum dimension. FREE FLUID: None. The extrahepatic, main, right and left portal veins are patent with appropriate hepatopetal flow. The hepatic veins and IVC are patent with appropriate or normal waveform. The main, right and left hepatic arteries are patent. There is slight increased peak systolic velocity in the main hepatic artery measuring 166 cm/s. US/US duplex arterial venous comp IMPRESSION: Limited visualization of the pancreas and abdominal aorta. Normal-appearing liver. Upper normal-sized spleen. No ascites. Slight increased peak systolic velocity in the main hepatic artery measuring 166 cm/s; otherwise unremarkable liver Doppler exam. The portal and hepatic veins are patent with appropriate flow.
--- NOTE | ~2021-06-21 | US_ITS ---
EXAMINATION: US ABDOMEN COMPLETE AND LIVER DOPPLER EXAM CLINICAL INFORMATION: Right upper quadrant pain. History of liver transplant. COMPARISON: Previous CT of the abdomen and pelvis July 2020 and abdominal ultrasound most recent May 2020 TECHNIQUE: Real-time imaging of the abdominal viscera. Wayne-scale and color imaging of the liver vasculature including waveform spectral analysis. FINDINGS: PANCREAS: Not well visualized. ABDOMINAL AORTA: The proximal and mid abdominal aorta are not well visualized due to bowel gas. The distal abdominal aorta is normal in caliber. INFERIOR VENA CAVA: Visualized portions are normal. LIVER: Normal. The liver is normal in size. The liver contour is normal. Parenchymal echogenicity is normal. No focal hepatic lesion. There is no intrahepatic biliary duct dilatation seen. GALLBLADDER: Surgically removed. COMMON BILE DUCT: Normal in caliber measuring 0.9 cm in diameter. RIGHT KIDNEY: Normal. No hydronephrosis. No renal calculi or focal parenchymal lesions. The kidney measures 10 cm in maximum dimension. LEFT KIDNEY: Normal. No hydronephrosis. No renal calculi or focal parenchymal lesions. The kidney measures 13 cm in maximum dimension. SPLEEN: Slightly enlarged. The spleen measures 13 cm in maximum dimension. FREE FLUID: None. The extrahepatic, main, right and left portal veins are patent with appropriate hepatopetal flow. The hepatic veins and IVC are patent with appropriate or normal waveform. The main, right and left hepatic arteries are patent. There is slight increased peak systolic velocity in the main hepatic artery measuring 166 cm/s. US/US abdomen complete IMPRESSION: Limited visualization of the pancreas and abdominal aorta. Normal-appearing liver. Upper normal-sized spleen. No ascites. Slight increased peak systolic velocity in the main hepatic artery measuring 166 cm/s; otherwise unremarkable liver Doppler exam. The portal and hepatic veins are patent with appropriate flow.
== END 2021-06-21 08:40 | disposition home or self-care (01) ==
LOC: HO.US 08:39
PROVIDERS: PCP Internal Medicine; Visit Provider Internal Medicine Gastroenterology
DX: R10.11 Right upper quadrant pain (principal); Z94.4 Liver transplant status
CPT/HCPCS: 76700; 93975

== ENCOUNTER 2021-06-26 06:54 | Outpatient (REF) | payer OTHER, SELFPAY ==
[2021-06-26 06:58] LABS: MANUAL DIFF FLAG NO
[2021-06-26 07:23] LABS: Basophils Percent Auto 0.9 % (0-2); Eosinophils Absolute Auto 0.2 X10*3/uL (0.0-0.4); Eosinophils Percent Auto 4.1 % (0-4); Hematocrit 33.7 % (42.0-52.0); Hemoglobin 11.6 g/dl (14.0-18.0); Imm Gran Abs Auto 0.01 X10*3/uL (0.00-0.03); Imm Gran Pct Auto 0.2 % (0.0-0.4); Lymphocytes Absolute Auto 1.4 X10*3/uL (1.2-4.9); Mean Corpuscular HGB Conc 34.4 g/dl (31.0-36.0); Mean Corpuscular Hemoglobin 29.1 pg (27.0-33.0); Mean Corpuscular Volume 84.7 fL (80.0-98.0); Mean Platelet Volume 11.2 fL (9.4-12.4); Monocytes Absolute Auto 0.5 X10*3/uL (0.1-1.2); Monocytes Percent Auto 9.7 % (2-11); Neutrophils Absolute Auto 2.5 x10*3/uL (2.0-8.3); Neutrophils Percent Auto 54.1 % (45-73); Platelet Count 110 X10*3/uL (160-400); Red Blood Count 3.98 X10*6/uL (4.60-5.80); Red Cell Distribution Width 12.7 % (11.0-16.0); White Blood Count 4.6 X10*3/uL (4.8-10.8)
[2021-06-26 07:56] LABS: Alanine Aminotransferase 28 U/L (0-40); Albumin Level 4.2 g/dL (3.5-5.0); Alkaline Phosphatase 93 U/L (39-117); Anion Gap 9 (12-20); Aspartate Amino Transferase 20 U/L (5-37); Bilirubin Total 0.6 mg/dL (0.0-1.0); Blood Urea Nitrogen 23 mg/dL (9-16); Calcium 9.3 mg/dL (8.4-10.2); Carbon Dioxide 26 mmol/L (22-29); Chloride 107 mmol/L (96-108); Estimated Glomerular Filt Rate 49; Glucose Random 330 mg/dL (60-115); Magnesium 1.5 mg/dL (1.6-2.6); Potassium 5.4 mmol/L (3.3-5.1); Sodium 137 mmol/L (135-145); Total Protein 6.8 g/dL (6.5-8.0)
[2021-06-27 15:21] LABS: Tacrolimus Prograf 7.3 mcg/L
== END 2021-06-26 06:55 | disposition home or self-care (01) ==
LOC: HO.LABR 06:54
PROVIDERS: PCP Internal Medicine; Visit Provider Internal Medicine
DX: Z94.4 Liver transplant status (principal); Z79.899 Other long term (current) drug therapy
CPT/HCPCS: 36415; 80053; 80197; 83735; 85025

== ENCOUNTER 2021-06-28 06:02 | Day surgery (SDC) | payer OTHER, SELFPAY ==
[2021-06-28 06:18] VITALS: BMI 31.6
[2021-06-28 06:32] VITALS: BP 143/78; PULSE 61; RESP 16; TEMP 36.3; O2SAT 96
[2021-06-28 06:43] LABS: Glucose, Whole Blood 161 mg/dL (60-115)
[2021-06-28] MEDS: Lactated Ringers 1,000 ML 50 ML IVCONT (06:47)
--- NOTE | 2021-06-28 07:17 | HO.ANESPROP2 ---
HPI - Anesthesia Eval Consult details Narrative: GERD PMFSH Active Problems Active Problems: All Active Problems (Updated 06/21/21 @ 15:49 by Elda Bolaños, RN) Erectile dysfunction due to arterial insufficiency (Acute) Colon cancer screening (Acute) RUQ abdominal pain (Acute) S/P liver transplant (Acute) GERD (gastroesophageal reflux disease) (Acute) Past Medical History Medical History (Updated 06/21/21 @ 15:49 by Elda Bolaños, RN) 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, managed as type 2 GERD (gastroesophageal reflux disease) Hx of hepatitis Hx of substance abuse Tubular adenoma of colon Family History Family history of problems with anesthesia: No Surgical History Surgical History (Updated 06/21/21 @ 15:50 by Elda Bolaños, RN) History of appendectomy History of open reduction and internal fixation (ORIF) procedure Hx of colonoscopy Hx of esophagogastroduodenoscopy S/P liver transplant Social History Social History Household Members: None Alcohol intake: never Patient Tobacco Use Status: Never used Tobacco Use of substances other than those prescribed or required for medical reasons: No Are you DNR?: No Advance Directives: No Advance Directives Information Provided: Yes Current occupational status: disabled Meds Allergies Allergy/AdvReac Type Severity Reaction Status Date / Time No Known Allergies Allergy Verified 06/21/21 15:52 [No Known Allergies*] Active Medications: Current Medications Lactated Ringer's (Lr) 1,000 mls @ 50 mls/hr IVCONT .Q20H SERGIO Last Admin: 06/28/21 06:47 Dose: 50 mls/hr Documented by: Home Medications Medication Instructions Recorded Confirmed Last Taken Type cholecalciferol (vitamin D3) 50 50 mcg PO DAILY 07/27/20 06/21/21 Unknown History mcg (2,000 unit) capsule ferrous sulfate 325 mg (65 mg 325 mg PO DAILY 07/27/20 06/21/21 Unknown History iron) tablet gabapentin 100 mg capsule 100 mg PO TID 07/27/20 06/21/21 Unknown History magnesium oxide 400 mg (241.3 mg 400 mg PO DAILY 07/27/20 06/21/21 Unknown History magnesium) tablet (MagOx) metformin 1,000 mg tablet 1,000 mg PO BID 07/27/20 06/21/21 Unknown History omeprazole 20 mg tablet,delayed 20 mg PO DAILY 07/27/20 06/21/21 Unknown History release prednisone 20 mg tablet 20 mg PO DAILY 07/27/20 06/21/21 Unknown History sulfamethoxazole 400 1 tab PO BEDTIME 08/03/20 06/21/21 Unknown History mg-trimethoprim 80 mg tablet tacrolimus 1 mg capsule, 4 mg PO DAILY cap 08/03/20 06/21/21 Unknown History immediate-release (Prograf) insulin aspart U-100 100 unit/mL 10 unit SUBCUT TID 06/21/21 06/21/21 Unknown History (3 mL) subcutaneous pen (Novolog Flexpen U-100 Insulin aspart) insulin glargine 100 unit/mL (3 20 unit SUBCUT BEDTIME 06/21/21 06/21/21 Unknown History mL) subcutaneous pen (Lantus Solostar U-100 Insulin) multivitamin with folic acid 400 1 tab PO DAILY 06/21/21 06/21/21 Unknown History mcg tablet (Daily-Stacy (with folic acid)) tramadol 50 mg tablet 1 tab PO Q8H PRN 06/21/21 06/21/21 Unknown History trazodone 100 mg tablet 1 tab PO BEDTIME PRN 06/21/21 06/21/21 Unknown History zolpidem 10 mg tablet 1 tab PO BEDTIME PRN 06/21/21 06/21/21 Unknown History Exam Exam Date and Time: June 28, 2021 0717 Height,Weight and Vital Signs: Height 5 ft 7 in Weight 91.626 kg Last Vital Signs Temp 97.4 F 06/28/21 06:32 Pulse 61 06/28/21 06:32 Resp 16 06/28/21 06:32 BP 143/78 H 06/28/21 06:32 Pulse Ox 96 06/28/21 06:32 Pertinent Lab Results Pertinent Lab Results: Laboratory Tests 06/28/21 06:38 POC Glucose 161 H Airway Mallampati Class: II TM Dist: >3cm Neck ROM: Full Partial: Upper and Lower Loose/Missing/Broken Teeth: Yes Heart: [id number] Lungs: CTA b/l Assessment and Plan Assessment Anesthesia Assessment: Anesthesia Plan Discussed Final Anesthetic Review Family History of Problems with Anesthesia: No NPO: Yes ASA Class: IV Final Preanesthetic Review: No Changes in Pt Med Stat, Meds/Allgs Chart Reviewed, Consent Obtained/Reviewed and Anes Risks/Benef Reviewed Patient Risk: High Procedure Risk: Low Assessment/Block/Sedation in SS: Assess/Block/Sedation-SS Anesthetic Plan Anesthetic Plan: MAC: and Agree w/ Assess. and Plan Disposition: Standard PACU
--- NOTE | 2021-06-28 07:21 | MHC.SHP ---
Pre-Procedural Eval Section A Date of Service: 06/28/21 Section B Chief Complaint: Screening, GERD Details of Present Illness: Colon cancer screening, history of colon polyps, GERD Relevant Family History (Specify if Yes): No Relevant Social History: None Present Medications: see Short Stay Collaborative assessment Medical History: Significant History (Diabetes 1.5, managed as type 2 GERD (gastroesophageal reflux disease) Hx of substance abuse No known health problems Tubular adenoma of colon) History of Previous Operations: Relevant previous surgery/procedure and date(s) (S/P liver transplant) Allergies: Allergies Allergy/AdvReac Type Severity Reaction Status Date / Time No Known Allergies Allergy Verified 06/21/21 15:52 [No Known Allergies*] Review of Systems Sugical H&P ROS: Negative: Constitution, Cardiovascular, Respiratory and Gastrointestinal Exam Surgical H&P Exam: Normal: Heart, Normal: Lungs, Normal: Extremities and Normal: Abdomen Plan Diagnosis/Plan: Change (add EGD for FU of GERD) I have reviewed the history and physical and performed a pertinent physical examination on my patient. No changes have occurred unless specified.
--- NOTE | 2021-06-28 07:22 | P.BOP_ITS ---
Brief Operative Note Date of Service: 06/28/21 Pre-op diagnosis: Colon cancer screening, history of colon polyps, GERD, Post-op diagnosis: other (GERD, gastritis, gastric polyp, colon polyps, diverticulosis, hemorrhoids) Procedure: FLEXIBLE TRANSORAL UPPER GASTROINTESTINAL ENDOSCOPY WITH BIOPSIES AND COLONOSCOPY TILL CECUM WITH BIOPSIES AND SNARE POLYPECTOMY UPPER ENDOSCOPY Consent: Indications for the procedure and potential complications of bleeding, perforation, reaction to medications and missed diagnosis were discussed with the patient and informed consent was obtained. Instrument: Olympus GIF H 190 mid size upper endoscope Monitoring: Vital signs and clinical assessment, continuous EKG monitoring, Pulse oximetry, Carbon Dioxide monitoring and blood pressure monitoring were done throughout the procedure. Procedure: The patient was placed in the left lateral decubitis position and pre-procedure medications were administered and a bite block was placed. The endoscope was inserted into the mouth and advanced under direct vision to the third part of duodenum. A careful inspection was made as the upper endoscope was withdrawn including a retroflexed examination of the proximal stomach; Findings and interventions are described below. Findings: Larynx: Normal Esophagus: Mildly tortuous esophagus with increased tertiary contractions without stricture or ring. GE junction at 38 cms. No esophagitis or Panchal's. Stomach: Nodular appearing mucosa in the gastric body - biopsied. Mild gastric antral erythema. Biopsies were obtained. A 3-4 mm benign appearing polyp in the gastric body - biopsied Grade 2 flap valve on retroflexed examination of the cardia. Duodenum: Normal bulb and descending duodenum Intervention: Biopsies as noted above COLONOSCOPY PROCEDURE NOTE Consent: Indications for the procedure and potential complications of bleeding, perforation, reaction to medications and missed diagnosis were discussed with the patient and informed consent was obtained. Instrument: Olympus PCF H 190 L variable stiffness pediatric colonoscope Monitoring: Vital signs and clinical assessment, intermittent blood pressure monitoring, continuous EKG monitoring, Pulse oximetry and Carbon Dioxide monitoring were done throughout the procedure. Colon withdrawl time was 21 minutes. Procedure: The patient was placed in the left lateral decubitis position and pre-procedure medications were administered. After a digital rectal examination of the ano-rectum, the video colonoscope was inserted into the rectum and advanced through the colon to the cecum. The colonoscope was slowly withdrawn in a retrograde panoramic fashion and the colon mucosa was carefully examined including a retroflexed view of the rectum. Findings and interventions are described below. Procedure Difficulty: : Without difficulty Findings: Terminal Ileum: Not evaluated Cecum: Normal Ascending Colon: Normal Transverse Colon: A 10-12 mm sessile polyp removed with a hot snare Descending Colon: A 4-5 mm diminutive appearing polyp removed with the cold biopsy. Moderate diverticulosis Sigmoid Colon: Moderate diverticulosis Rectum: Normal Ano-rectum: Moderate internal hemorrhoids and hypertrophied anal papillae Colon preparation: Good Impression and Post Procedure Diagnosis: Endoscopy Findings: ESOPHAGUS: Mildly tortuous esophagus with increased tertiary contractions without stricture or ring. GE junction at 38 cms. No esophagitis or Panchal's. STOMACH: Nodular appearing mucosa in the gastric body - biopsied. Mild gastric antral erythema. Biopsies were obtained. A 3-4 mm benign appearing polyp in the gastric body - biopsied Colonoscopy Findings: Two small to medium sized polyps removed Moderate diverticulosis seen in the left colon Moderate hemorrhoids on retroflexed exam. Plan: Await pathology results Patient has an appointment on 08/15/21 in the [facility] with Shelley Kelly M.D. Repeat Colonoscopy interval based on path results - in 3-5 years if polyps are adenomatous and 10 years if polyps are hyperplastic. GERD, Gastric Polyps, colon polyps and diverticulosis handouts were given in the discharge area Surgeon: Shelley Kelly MD Anesthesia: MAC (Annia Salter CRNA & Dr Houser) Was an Gluing Machine Operator Automatic used for this Procedure?: Yes Gluing Machine Operator Automatic: Hellen Wagner Estimated blood loss (mL): 0 Pathology: other (A- GASTRIC ANTRUM B- GASTRIC POLYP C- GASTRIC BODY D- TRANSVERSE COLON POLYP E- DESCENDING COLON POLYP) Condition: stable Disposition: PACU
--- NOTE | 2021-06-28 07:24 | P.OP_ITS ---
Operative Note Operative Note Date of Service: 06/28/21 Narrative: Pre-op diagnosis: Colon cancer screening, history of colon polyps, GERD, Post-op diagnosis:?other (GERD, gastritis, gastric polyp, colon polyps, diverticulosis, hemorrhoids) Procedure: FLEXIBLE TRANSORAL UPPER GASTROINTESTINAL ENDOSCOPY WITH BIOPSIES AND COLONOSCOPY TILL CECUM WITH BIOPSIES AND SNARE POLYPECTOMY UPPER ENDOSCOPY Consent:?Indications for the procedure and potential complications of bleeding, perforation, reaction to medications and missed diagnosis were discussed with the patient and informed consent was obtained. Instrument:?Olympus GIF H 190 mid size upper endoscope Monitoring: Vital signs and clinical assessment, continuous EKG monitoring, Pulse oximetry, Carbon Dioxide monitoring and blood pressure monitoring were done throughout the procedure. Procedure:?The patient was placed in the left lateral decubitis position and pre-procedure medications were administered and a bite block was placed. The endoscope was inserted into the mouth and advanced under direct vision to the third part of duodenum. A careful inspection was made as the upper endoscope was withdrawn including a retroflexed examination of the proximal stomach; Findings and interventions are described below. Findings: Larynx:? Normal Esophagus:? Mildly tortuous esophagus with increased tertiary contractions without stricture or ring. GE junction at 38 cms. No esophagitis or Panchal's. Stomach:?Nodular appearing mucosa in the gastric body - biopsied.? Mild gastric antral erythema. Biopsies were obtained. A 3-4 mm benign appearing polyp in the gastric body - biopsied Grade 2 flap valve on retroflexed examination of the cardia. Duodenum:?Normal bulb and descending duodenum Intervention:?Biopsies as noted above COLONOSCOPY PROCEDURE NOTE Consent:?Indications for the procedure and potential complications of bleeding, perforation, reaction to medications and missed diagnosis were discussed with the patient and informed consent was obtained. Instrument:?Olympus PCF H 190 L variable stiffness pediatric colonoscope Monitoring:?Vital signs and clinical assessment, intermittent blood pressure monitoring, continuous EKG monitoring, Pulse oximetry and Carbon Dioxide monitoring were done throughout the procedure. Colon withdrawl time was 21 minutes. Procedure:?The patient was placed in the left lateral decubitis position and pre-procedure medications were administered. After a digital rectal examination of the ano-rectum, the video colonoscope was inserted into the rectum and advanced through the colon to the cecum. The colonoscope was slowly withdrawn in a retrograde panoramic fashion and the colon mucosa was carefully examined including a retroflexed view of the rectum. Findings and interventions are described below. Procedure Difficulty:?: Without difficulty Findings: Terminal Ileum: Not evaluated Cecum:? Normal Ascending Colon:??Normal Transverse Colon:??A 10-12 mm sessile polyp removed with a hot snare Descending Colon:? A 4-5 mm diminutive appearing polyp removed with the cold biopsy.? Moderate diverticulosis Sigmoid Colon:??Moderate diverticulosis Rectum:??Normal Ano-rectum:??Moderate internal hemorrhoids and hypertrophied anal papillae Colon preparation:? Good? Impression and Post Procedure Diagnosis: Endoscopy Findings: ESOPHAGUS: Mildly tortuous esophagus with increased tertiary contractions without stricture or ring. GE junction at 38 cms. No esophagitis or Panchal's. STOMACH: Nodular appearing mucosa in the gastric body - biopsied.? Mild gastric antral erythema. Biopsies were obtained. A 3-4 mm benign appearing polyp in the gastric body - biopsied Colonoscopy Findings: Two small to medium sized polyps removed Moderate diverticulosis seen in the left colon Moderate hemorrhoids on retroflexed exam. Plan: Await pathology results Patient has an appointment on 08/15/21 in the GI Clinic with? Shelley Kelly M.D. Repeat Colonoscopy interval based on path results - in 3-5 years if polyps are adenomatous and 10 years if polyps are hyperplastic. GERD, Gastric Polyps, colon polyps and diverticulosis handouts were given in the discharge area Surgeon: Shelley Kelly MD Anesthesia:?MAC (Annia Salter CRNA & Dr Houser) Was an Occupational Analyst used for this Procedure?:?Yes Occupational Analyst:?Hellen Wagner Estimated blood loss (mL):?0 Pathology:?other (A- GASTRIC ANTRUM? B- GASTRIC POLYP? C- GASTRIC BODY? D- TRANSVERSE COLON POLYP? E- DESCENDING COLON POLYP) Condition:?stable Disposition:?PACU
[2021-06-28 08:48] VITALS: BP 121/71; PULSE 72; RESP 18; TEMP 36.2; O2SAT 98
[2021-06-28 09:03] VITALS: BP 145/75; PULSE 53; RESP 16; TEMP 36.2; O2SAT 100
== END 2021-06-28 09:47 | disposition home or self-care (01) ==
PROVIDERS: PCP Internal Medicine; Visit Provider Internal Medicine Gastroenterology
PROC: (CPT 45385; principal; 2021-06-28 07:30)
DX: Z12.11 Encounter for screening for malignant neoplasm of colon (principal); Z86.010 Personal history of colon polyps; D12.3 Benign neoplasm of transverse colon; K63.5 Polyp of colon; K57.30 Diverticulosis of large intestine without perforation or abscess without bleeding; K64.8 Other hemorrhoids; K62.89 Other specified diseases of anus and rectum; K21.9 Gastro-esophageal reflux disease without esophagitis; K29.50 Unspecified chronic gastritis without bleeding; K31.7 Polyp of stomach and duodenum; E13.8 Other specified diabetes mellitus with unspecified complications; Z79.4 Long term (current) use of insulin; Z94.4 Liver transplant status; Z79.899 Other long term (current) drug therapy; Z79.52 Long term (current) use of systemic steroids; Z86.16 Personal history of COVID-19
CPT/HCPCS: 45385; 45380; 43239; 82947; 88305; 88342

== ENCOUNTER → 2021-07-02 08:07 | Outpatient (BNVA) | payer OTHER, SELFPAY | PROVIDERS: PCP Internal Medicine; Visit Provider Urology | DX: Z13.89 Encounter for screening for other disorder (principal) ==

== ENCOUNTER 2021-07-04 06:55 | Outpatient (REF) | payer OTHER, SELFPAY ==
[2021-07-04 07:36] LABS: MANUAL DIFF FLAG NO
[2021-07-04 07:54] LABS: Basophils Percent Auto 0.6 % (0-2); Eosinophils Absolute Auto 0.2 X10*3/uL (0.0-0.4); Eosinophils Percent Auto 4.6 % (0-4); Hematocrit 33.7 % (42.0-52.0); Hemoglobin 11.6 g/dl (14.0-18.0); Imm Gran Abs Auto 0.01 X10*3/uL (0.00-0.03); Imm Gran Pct Auto 0.2 % (0.0-0.4); Lymphocytes Absolute Auto 1.4 X10*3/uL (1.2-4.9); Lymphocytes Percent Auto 29.7 % (20-40); Mean Corpuscular HGB Conc 34.4 g/dl (31.0-36.0); Mean Corpuscular Hemoglobin 29.1 pg (27.0-33.0); Mean Corpuscular Volume 84.5 fL (80.0-98.0); Mean Platelet Volume 11.2 fL (9.4-12.4); Monocytes Absolute Auto 0.4 X10*3/uL (0.1-1.2); Monocytes Percent Auto 8.8 % (2-11); Neutrophils Absolute Auto 2.7 x10*3/uL (2.0-8.3); Neutrophils Percent Auto 56.1 % (45-73); Platelet Count 114 X10*3/uL (160-400); Red Blood Count 3.99 X10*6/uL (4.60-5.80); White Blood Count 4.8 X10*3/uL (4.8-10.8)
[2021-07-04 08:21] LABS: Alanine Aminotransferase 26 U/L (0-40); Albumin Level 4.3 g/dL (3.5-5.0); Alkaline Phosphatase 93 U/L (39-117); Anion Gap 13 (12-20); Aspartate Amino Transferase 16 U/L (5-37); Bilirubin Total 0.4 mg/dL (0.0-1.0); Blood Urea Nitrogen 30 mg/dL (9-16); Calcium 9.7 mg/dL (8.4-10.2); Carbon Dioxide 23 mmol/L (22-29); Chloride 109 mmol/L (96-108); Estimated Glomerular Filt Rate 50; Glucose Random 303 mg/dL (60-115); Magnesium 1.5 mg/dL (1.6-2.6); Sodium 140 mmol/L (135-145); Total Protein 6.9 g/dL (6.5-8.0)
[2021-07-05 09:32] LABS: Tacrolimus Prograf 6.9 mcg/L
== END 2021-07-04 06:56 | disposition home or self-care (01) ==
LOC: HO.LABR 06:55
PROVIDERS: PCP Internal Medicine; Visit Provider Internal Medicine
DX: Z94.4 Liver transplant status (principal); Z79.899 Other long term (current) drug therapy
CPT/HCPCS: 36415; 80053; 80197; 83735; 85025

== ENCOUNTER 2021-07-10 07:17 | Outpatient (REF) | payer OTHER, SELFPAY ==
[2021-07-10 07:32] LABS: MANUAL DIFF FLAG NO
[2021-07-10 08:01] LABS: Basophils Percent Auto 0.4 % (0-2); Eosinophils Absolute Auto 0.1 X10*3/uL (0.0-0.4); Eosinophils Percent Auto 2.5 % (0-4); Hematocrit 33.1 % (42.0-52.0); Hemoglobin 11.5 g/dl (14.0-18.0); Imm Gran Abs Auto 0.02 X10*3/uL (0.00-0.03); Imm Gran Pct Auto 0.4 % (0.0-0.4); Lymphocytes Absolute Auto 1.6 X10*3/uL (1.2-4.9); Lymphocytes Percent Auto 33.2 % (20-40); Mean Corpuscular HGB Conc 34.7 g/dl (31.0-36.0); Mean Corpuscular Hemoglobin 29.2 pg (27.0-33.0); Monocytes Absolute Auto 0.5 X10*3/uL (0.1-1.2); Monocytes Percent Auto 9.7 % (2-11); Neutrophils Absolute Auto 2.5 x10*3/uL (2.0-8.3); Neutrophils Percent Auto 53.8 % (45-73); Platelet Count 109 X10*3/uL (160-400); Red Blood Count 3.94 X10*6/uL (4.60-5.80); Red Cell Distribution Width 12.9 % (11.0-16.0); White Blood Count 4.7 X10*3/uL (4.8-10.8)
[2021-07-10 08:23] LABS: Alanine Aminotransferase 21 U/L (0-40); Albumin Level 4.2 g/dL (3.5-5.0); Alkaline Phosphatase 118 U/L (39-117); Anion Gap 11 (12-20); Aspartate Amino Transferase 16 U/L (5-37); Bilirubin Total 0.6 mg/dL (0.0-1.0); Blood Urea Nitrogen 21 mg/dL (9-16); Calcium 9.1 mg/dL (8.4-10.2); Carbon Dioxide 24 mmol/L (22-29); Chloride 109 mmol/L (96-108); Estimated Glomerular Filt Rate > 60; Glucose Random 154 mg/dL (60-115); Magnesium 1.7 mg/dL (1.6-2.6); Sodium 139 mmol/L (135-145); Total Protein 6.6 g/dL (6.5-8.0)
[2021-07-11 08:12] LABS: Tacrolimus Prograf 8.4 mcg/L
== END 2021-07-10 07:18 | disposition home or self-care (01) ==
LOC: HO.LABR 07:17
PROVIDERS: PCP Internal Medicine; Visit Provider Internal Medicine
DX: R10.11 Right upper quadrant pain (principal); Z94.4 Liver transplant status; Z79.899 Other long term (current) drug therapy
CPT/HCPCS: 36415; 80053; 80197; 83735; 85025

== ENCOUNTER 2021-07-17 06:54 | Outpatient (REF) | payer OTHER, SELFPAY ==
[2021-07-17 07:23] LABS: MANUAL DIFF FLAG NO
[2021-07-17 07:36] LABS: Basophils Percent Auto 0.4 % (0-2); Eosinophils Absolute Auto 0.1 X10*3/uL (0.0-0.4); Eosinophils Percent Auto 1.8 % (0-4); Hematocrit 33.1 % (42.0-52.0); Hemoglobin 11.6 g/dl (14.0-18.0); Imm Gran Abs Auto 0.01 X10*3/uL (0.00-0.03); Imm Gran Pct Auto 0.2 % (0.0-0.4); Mean Corpuscular Hemoglobin 29.1 pg (27.0-33.0); Mean Corpuscular Volume 83.2 fL (80.0-98.0); Mean Platelet Volume 10.8 fL (9.4-12.4); Monocytes Absolute Auto 0.4 X10*3/uL (0.1-1.2); Monocytes Percent Auto 9.3 % (2-11); Neutrophils Percent Auto 65.3 % (45-73); Platelet Count 109 X10*3/uL (160-400); Red Blood Count 3.98 X10*6/uL (4.60-5.80); Red Cell Distribution Width 12.8 % (11.0-16.0); White Blood Count 4.5 X10*3/uL (4.8-10.8)
[2021-07-17 08:02] LABS: Alanine Aminotransferase 26 U/L (0-40); Albumin Level 4.2 g/dL (3.5-5.0); Alkaline Phosphatase 107 U/L (39-117); Anion Gap 11 (12-20); Aspartate Amino Transferase 19 U/L (5-37); Bilirubin Total 0.5 mg/dL (0.0-1.0); Blood Urea Nitrogen 20 mg/dL (9-16); Calcium 9.2 mg/dL (8.4-10.2); Carbon Dioxide 26 mmol/L (22-29); Chloride 109 mmol/L (96-108); Estimated Glomerular Filt Rate 56; Glucose Random 235 mg/dL (60-115); Magnesium 1.5 mg/dL (1.6-2.6); Potassium 4.7 mmol/L (3.3-5.1); Sodium 141 mmol/L (135-145); Total Protein 6.9 g/dL (6.5-8.0)
[2021-07-18 12:27] LABS: Tacrolimus Prograf 5.7 mcg/L
== END 2021-07-17 06:55 | disposition home or self-care (01) ==
LOC: HO.LABR 06:54
PROVIDERS: PCP Internal Medicine; Visit Provider Internal Medicine
DX: Z94.4 Liver transplant status (principal); Z79.899 Other long term (current) drug therapy
CPT/HCPCS: 36415; 80053; 80197; 83735; 85025

== ENCOUNTER 2021-07-24 06:47 | Outpatient (REF) | payer OTHER, SELFPAY ==
[2021-07-24 07:01] LABS: MANUAL DIFF FLAG NO
[2021-07-24 07:27] LABS: Basophils Percent Auto 0.4 % (0-2); Eosinophils Absolute Auto 0.1 X10*3/uL (0.0-0.4); Eosinophils Percent Auto 1.7 % (0-4); Hematocrit 34.1 % (42.0-52.0); Hemoglobin 12.1 g/dl (14.0-18.0); Lymphocytes Absolute Auto 1.5 X10*3/uL (1.2-4.9); Lymphocytes Percent Auto 31.4 % (20-40); Mean Corpuscular HGB Conc 35.5 g/dl (31.0-36.0); Mean Corpuscular Hemoglobin 29.6 pg (27.0-33.0); Mean Corpuscular Volume 83.4 fL (80.0-98.0); Monocytes Absolute Auto 0.5 X10*3/uL (0.1-1.2); Monocytes Percent Auto 10.3 % (2-11); Neutrophils Absolute Auto 2.7 x10*3/uL (2.0-8.3); Neutrophils Percent Auto 56.2 % (45-73); Platelet Count 112 X10*3/uL (160-400); Red Blood Count 4.09 X10*6/uL (4.60-5.80); Red Cell Distribution Width 12.7 % (11.0-16.0); White Blood Count 4.8 X10*3/uL (4.8-10.8)
[2021-07-24 07:53] LABS: Alanine Aminotransferase 28 U/L (0-40); Albumin Level 4.4 g/dL (3.5-5.0); Alkaline Phosphatase 100 U/L (39-117); Anion Gap 11 (12-20); Aspartate Amino Transferase 19 U/L (5-37); Bilirubin Total 0.6 mg/dL (0.0-1.0); Blood Urea Nitrogen 20 mg/dL (9-16); Calcium 10.1 mg/dL (8.4-10.2); Carbon Dioxide 25 mmol/L (22-29); Chloride 105 mmol/L (96-108); Estimated Glomerular Filt Rate > 60; Glucose Random 182 mg/dL (60-115); Magnesium 1.7 mg/dL (1.6-2.6); Potassium 5.1 mmol/L (3.3-5.1); Sodium 136 mmol/L (135-145); Total Protein 7.1 g/dL (6.5-8.0)
== END 2021-07-24 06:48 | disposition home or self-care (01) ==
LOC: HO.LABR 06:47
PROVIDERS: PCP Internal Medicine; Visit Provider Internal Medicine
DX: Z94.4 Liver transplant status (principal); Z51.81 Encounter for therapeutic drug level monitoring; Z79.899 Other long term (current) drug therapy
CPT/HCPCS: 36415; 80053; 80197; 83735; 85025

== ENCOUNTER 2021-08-01 07:52 | Outpatient (REF) | payer OTHER, SELFPAY ==
[2021-08-01 08:09] LABS: MANUAL DIFF FLAG NO
[2021-08-01 08:56] LABS: Basophils Percent Auto 0.6 % (0-2); Eosinophils Absolute Auto 0.1 X10*3/uL (0.0-0.4); Eosinophils Percent Auto 1.4 % (0-4); Hematocrit 36.6 % (42.0-52.0); Hemoglobin 12.6 g/dl (14.0-18.0); Imm Gran Abs Auto 0.01 X10*3/uL (0.00-0.03); Imm Gran Pct Auto 0.2 % (0.0-0.4); Lymphocytes Absolute Auto 1.6 X10*3/uL (1.2-4.9); Lymphocytes Percent Auto 31.8 % (20-40); Mean Corpuscular HGB Conc 34.4 g/dl (31.0-36.0); Mean Corpuscular Hemoglobin 29.2 pg (27.0-33.0); Mean Corpuscular Volume 84.9 fL (80.0-98.0); Mean Platelet Volume 11.2 fL (9.4-12.4); Monocytes Absolute Auto 0.5 X10*3/uL (0.1-1.2); Monocytes Percent Auto 9.4 % (2-11); Neutrophils Absolute Auto 2.8 x10*3/uL (2.0-8.3); Neutrophils Percent Auto 56.6 % (45-73); Platelet Count 117 X10*3/uL (160-400); Red Blood Count 4.31 X10*6/uL (4.60-5.80); Red Cell Distribution Width 12.5 % (11.0-16.0)
[2021-08-01 09:12] LABS: Alanine Aminotransferase 25 U/L (0-40); Albumin Level 4.4 g/dL (3.5-5.0); Alkaline Phosphatase 98 U/L (39-117); Anion Gap 10 (12-20); Aspartate Amino Transferase 19 U/L (5-37); Bilirubin Total 0.8 mg/dL (0.0-1.0); Blood Urea Nitrogen 24 mg/dL (9-16); Calcium 9.5 mg/dL (8.4-10.2); Carbon Dioxide 26 mmol/L (22-29); Chloride 108 mmol/L (96-108); Estimated Glomerular Filt Rate 57; Glucose Random 149 mg/dL (60-115); Magnesium 1.8 mg/dL (1.6-2.6); Potassium 5.2 mmol/L (3.3-5.1); Sodium 139 mmol/L (135-145); Total Protein 7.2 g/dL (6.5-8.0)
[2021-08-02 14:55] LABS: Tacrolimus Prograf 6.1 mcg/L
== END 2021-08-01 07:53 | disposition home or self-care (01) ==
LOC: HO.LABR 07:52
PROVIDERS: PCP Internal Medicine; Visit Provider Internal Medicine
DX: Z94.4 Liver transplant status (principal); Z79.899 Other long term (current) drug therapy
CPT/HCPCS: 36415; 80053; 80197; 83735; 85025

== ENCOUNTER 2021-08-14 06:54 | Outpatient (REF) | payer OTHER, SELFPAY ==
[2021-08-14 07:06] LABS: MANUAL DIFF FLAG NO
[2021-08-14 07:38] LABS: Basophils Percent Auto 0.7 % (0-2); Eosinophils Absolute Auto 0.1 X10*3/uL (0.0-0.4); Eosinophils Percent Auto 1.1 % (0-4); Hematocrit 34.3 % (42.0-52.0); Imm Gran Abs Auto 0.01 X10*3/uL (0.00-0.03); Imm Gran Pct Auto 0.2 % (0.0-0.4); Lymphocytes Absolute Auto 1.4 X10*3/uL (1.2-4.9); Lymphocytes Percent Auto 31.3 % (20-40); Mean Corpuscular Hemoglobin 29.2 pg (27.0-33.0); Mean Corpuscular Volume 83.5 fL (80.0-98.0); Mean Platelet Volume 11.1 fL (9.4-12.4); Monocytes Absolute Auto 0.5 X10*3/uL (0.1-1.2); Monocytes Percent Auto 9.9 % (2-11); Neutrophils Absolute Auto 2.6 x10*3/uL (2.0-8.3); Neutrophils Percent Auto 56.8 % (45-73); Platelet Count 104 X10*3/uL (160-400); Red Blood Count 4.11 X10*6/uL (4.60-5.80); Red Cell Distribution Width 12.3 % (11.0-16.0); White Blood Count 4.5 X10*3/uL (4.8-10.8)
[2021-08-14 09:11] LABS: Alanine Aminotransferase 20 U/L (0-40); Albumin Level 4.4 g/dL (3.5-5.0); Alkaline Phosphatase 90 U/L (39-117); Anion Gap 10 (12-20); Aspartate Amino Transferase 19 U/L (5-37); Bilirubin Total 0.5 mg/dL (0.0-1.0); Blood Urea Nitrogen 22 mg/dL (9-16); Carbon Dioxide 28 mmol/L (22-29); Chloride 105 mmol/L (96-108); Estimated Glomerular Filt Rate 53; Glucose Random 261 mg/dL (60-115); Magnesium 1.8 mg/dL (1.6-2.6); Sodium 137 mmol/L (135-145); Total Protein 6.9 g/dL (6.5-8.0)
== END 2021-08-14 06:55 | disposition home or self-care (01) ==
LOC: HO.LABR 06:54
PROVIDERS: PCP Internal Medicine; Visit Provider Internal Medicine
DX: Z94.4 Liver transplant status (principal); Z79.899 Other long term (current) drug therapy
CPT/HCPCS: 36415; 80053; 80197; 83735; 85025

== ENCOUNTER → 2021-08-15 11:57 | Outpatient (BNVA) | payer OTHER, SELFPAY | PROVIDERS: PCP Internal Medicine; Referring Provider Internal Medicine; Visit Provider Internal Medicine Gastroenterology | DX: Z12.11 Encounter for screening for malignant neoplasm of colon (principal); K21.9 Gastro-esophageal reflux disease without esophagitis; R10.11 Right upper quadrant pain; Z94.4 Liver transplant status | CPT/HCPCS: 99212 ==

== ENCOUNTER 2021-08-23 06:54 | Outpatient (REF) | payer OTHER, SELFPAY ==
[2021-08-23 07:11] LABS: MANUAL DIFF FLAG NO
[2021-08-23 07:35] LABS: Basophils Percent Auto 0.4 % (0-2); Eosinophils Absolute Auto 0.1 X10*3/uL (0.0-0.4); Eosinophils Percent Auto 1.3 % (0-4); Hemoglobin 12.4 g/dl (14.0-18.0); Imm Gran Abs Auto 0.01 X10*3/uL (0.00-0.03); Imm Gran Pct Auto 0.2 % (0.0-0.4); Lymphocytes Absolute Auto 1.4 X10*3/uL (1.2-4.9); Lymphocytes Percent Auto 29.1 % (20-40); Mean Corpuscular HGB Conc 35.4 g/dl (31.0-36.0); Mean Corpuscular Hemoglobin 29.2 pg (27.0-33.0); Mean Corpuscular Volume 82.5 fL (80.0-98.0); Mean Platelet Volume 11.2 fL (9.4-12.4); Monocytes Absolute Auto 0.5 X10*3/uL (0.1-1.2); Monocytes Percent Auto 11.3 % (2-11); Neutrophils Absolute Auto 2.8 x10*3/uL (2.0-8.3); Neutrophils Percent Auto 57.7 % (45-73); Platelet Count 113 X10*3/uL (160-400); Red Blood Count 4.24 X10*6/uL (4.60-5.80); Red Cell Distribution Width 12.5 % (11.0-16.0); White Blood Count 4.8 X10*3/uL (4.8-10.8)
[2021-08-23 08:03] LABS: Alanine Aminotransferase 18 U/L (0-40); Albumin Level 4.4 g/dL (3.5-5.0); Alkaline Phosphatase 84 U/L (39-117); Anion Gap 9 (12-20); Aspartate Amino Transferase 16 U/L (5-37); Bilirubin Total 0.7 mg/dL (0.0-1.0); Blood Urea Nitrogen 24 mg/dL (9-16); Carbon Dioxide 24 mmol/L (22-29); Chloride 108 mmol/L (96-108); Estimated Glomerular Filt Rate 53; Glucose Random 181 mg/dL (60-115); Magnesium 1.6 mg/dL (1.6-2.6); Potassium 4.7 mmol/L (3.3-5.1); Sodium 136 mmol/L (135-145)
[2021-08-24 14:21] LABS: Tacrolimus Prograf 6.6 mcg/L
== END 2021-08-23 06:55 | disposition home or self-care (01) ==
LOC: HO.LABR 06:54
PROVIDERS: PCP Internal Medicine; Visit Provider Internal Medicine
DX: Z94.4 Liver transplant status (principal); Z79.899 Other long term (current) drug therapy
CPT/HCPCS: 36415; 80053; 80197; 83735; 85025

== ENCOUNTER 2021-09-04 06:41 | Outpatient (REF) | payer OTHER, SELFPAY ==
[2021-09-04 07:02] LABS: MANUAL DIFF FLAG NO
[2021-09-04 07:34] LABS: Basophils Percent Auto 0.8 % (0-2); Eosinophils Absolute Auto 0.1 X10*3/uL (0.0-0.4); Hematocrit 35.1 % (42.0-52.0); Hemoglobin 12.5 g/dl (14.0-18.0); Imm Gran Abs Auto 0.02 X10*3/uL (0.00-0.03); Imm Gran Pct Auto 0.4 % (0.0-0.4); Lymphocytes Absolute Auto 1.5 X10*3/uL (1.2-4.9); Mean Corpuscular HGB Conc 35.6 g/dl (31.0-36.0); Mean Corpuscular Volume 81.4 fL (80.0-98.0); Mean Platelet Volume 11.2 fL (9.4-12.4); Monocytes Absolute Auto 0.5 X10*3/uL (0.1-1.2); Monocytes Percent Auto 10.7 % (2-11); Neutrophils Absolute Auto 2.8 x10*3/uL (2.0-8.3); Neutrophils Percent Auto 56.1 % (45-73); Platelet Count 113 X10*3/uL (160-400); Red Blood Count 4.31 X10*6/uL (4.60-5.80); Red Cell Distribution Width 12.3 % (11.0-16.0)
[2021-09-04 07:57] LABS: Alanine Aminotransferase 24 U/L (0-40); Albumin Level 4.4 g/dL (3.5-5.0); Alkaline Phosphatase 89 U/L (39-117); Anion Gap 10 (12-20); Aspartate Amino Transferase 16 U/L (5-37); Bilirubin Total 0.7 mg/dL (0.0-1.0); Blood Urea Nitrogen 17 mg/dL (9-16); Calcium 9.6 mg/dL (8.4-10.2); Carbon Dioxide 27 mmol/L (22-29); Chloride 104 mmol/L (96-108); Estimated Glomerular Filt Rate > 60; Glucose Random 178 mg/dL (60-115); Magnesium 1.5 mg/dL (1.6-2.6); Potassium 4.5 mmol/L (3.3-5.1); Sodium 136 mmol/L (135-145)
[2021-09-06 06:45] LABS: Tacrolimus Prograf 3.9 mcg/L
== END 2021-09-04 06:42 | disposition home or self-care (01) ==
LOC: HO.LABR 06:41
PROVIDERS: PCP Internal Medicine; Visit Provider Internal Medicine
DX: Z94.4 Liver transplant status (principal); Z79.899 Other long term (current) drug therapy
CPT/HCPCS: 36415; 80053; 80197; 83735; 85025

== ENCOUNTER 2021-09-19 08:54 | Outpatient (REF) | payer OTHER, SELFPAY ==
[2021-09-19 09:07] LABS: MANUAL DIFF FLAG NO
[2021-09-19 09:46] LABS: Basophils Percent Auto 0.4 % (0-2); Eosinophils Absolute Auto 0.1 X10*3/uL (0.0-0.4); Eosinophils Percent Auto 1.3 % (0-4); Hematocrit 35.4 % (42.0-52.0); Hemoglobin 12.3 g/dl (14.0-18.0); Imm Gran Abs Auto 0.01 X10*3/uL (0.00-0.03); Imm Gran Pct Auto 0.2 % (0.0-0.4); Lymphocytes Absolute Auto 1.4 X10*3/uL (1.2-4.9); Lymphocytes Percent Auto 30.3 % (20-40); Mean Corpuscular HGB Conc 34.7 g/dl (31.0-36.0); Mean Corpuscular Volume 83.5 fL (80.0-98.0); Monocytes Absolute Auto 0.5 X10*3/uL (0.1-1.2); Neutrophils Absolute Auto 2.7 x10*3/uL (2.0-8.3); Neutrophils Percent Auto 57.8 % (45-73); Platelet Count 109 X10*3/uL (160-400); Red Blood Count 4.24 X10*6/uL (4.60-5.80); White Blood Count 4.7 X10*3/uL (4.8-10.8)
[2021-09-19 10:29] LABS: Alanine Aminotransferase 26 U/L (0-40); Albumin Level 4.2 g/dL (3.5-5.0); Alkaline Phosphatase 84 U/L (39-117); Anion Gap 11 (12-20); Aspartate Amino Transferase 20 U/L (5-37); Bilirubin Total 0.6 mg/dL (0.0-1.0); Blood Urea Nitrogen 20 mg/dL (9-16); Calcium 9.8 mg/dL (8.4-10.2); Carbon Dioxide 25 mmol/L (22-29); Chloride 107 mmol/L (96-108); Estimated Glomerular Filt Rate > 60; Glucose Random 155 mg/dL (60-115); Magnesium 1.5 mg/dL (1.6-2.6); Potassium 4.8 mmol/L (3.3-5.1); Sodium 138 mmol/L (135-145); Total Protein 6.8 g/dL (6.5-8.0)
[2021-09-20 07:37] LABS: Tacrolimus Prograf 6.2 mcg/L
== END 2021-09-19 08:55 | disposition home or self-care (01) ==
LOC: HO.LABR 08:54
PROVIDERS: PCP Internal Medicine; Visit Provider Internal Medicine
DX: Z94.4 Liver transplant status (principal); Z79.899 Other long term (current) drug therapy
CPT/HCPCS: 36415; 80053; 80197; 83735; 85025

== ENCOUNTER 2021-10-02 06:44 | Outpatient (REF) | payer OTHER, SELFPAY ==
[2021-10-02 07:04] LABS: MANUAL DIFF FLAG NO
[2021-10-02 07:18] LABS: Basophils Percent Auto 0.9 % (0-2); Eosinophils Absolute Auto 0.1 X10*3/uL (0.0-0.4); Eosinophils Percent Auto 1.3 % (0-4); Hematocrit 35.3 % (42.0-52.0); Hemoglobin 12.3 g/dl (14.0-18.0); Imm Gran Abs Auto 0.01 X10*3/uL (0.00-0.03); Imm Gran Pct Auto 0.2 % (0.0-0.4); Lymphocytes Absolute Auto 1.5 X10*3/uL (1.2-4.9); Lymphocytes Percent Auto 33.8 % (20-40); Mean Corpuscular HGB Conc 34.8 g/dl (31.0-36.0); Mean Corpuscular Hemoglobin 29.4 pg (27.0-33.0); Mean Corpuscular Volume 84.2 fL (80.0-98.0); Mean Platelet Volume 10.4 fL (9.4-12.4); Monocytes Absolute Auto 0.5 X10*3/uL (0.1-1.2); Monocytes Percent Auto 11.5 % (2-11); Neutrophils Absolute Auto 2.4 x10*3/uL (2.0-8.3); Neutrophils Percent Auto 52.3 % (45-73); Platelet Count 112 X10*3/uL (160-400); Red Blood Count 4.19 X10*6/uL (4.60-5.80); White Blood Count 4.5 X10*3/uL (4.8-10.8)
[2021-10-02 07:52] LABS: Alanine Aminotransferase 23 U/L (0-40); Albumin Level 4.3 g/dL (3.5-5.0); Alkaline Phosphatase 80 U/L (39-117); Anion Gap 9 (12-20); Aspartate Amino Transferase 22 U/L (5-37); Bilirubin Total 0.7 mg/dL (0.0-1.0); Blood Urea Nitrogen 21 mg/dL (9-16); Calcium 9.4 mg/dL (8.4-10.2); Carbon Dioxide 28 mmol/L (22-29); Chloride 106 mmol/L (96-108); Estimated Glomerular Filt Rate 58; Glucose Random 175 mg/dL (60-115); Magnesium 1.7 mg/dL (1.6-2.6); Sodium 138 mmol/L (135-145); Total Protein 6.8 g/dL (6.5-8.0)
== END 2021-10-02 06:45 | disposition home or self-care (01) ==
LOC: HO.LABR 06:44
PROVIDERS: PCP Internal Medicine; Visit Provider Internal Medicine
DX: Z94.4 Liver transplant status (principal); Z79.899 Other long term (current) drug therapy
CPT/HCPCS: 36415; 80053; 80197; 83735; 85025

== ENCOUNTER 2021-10-10 06:38 | Outpatient (REF) | payer OTHER, SELFPAY ==
[2021-10-10 06:56] LABS: MANUAL DIFF FLAG NO
[2021-10-10 07:20] LABS: Basophils Percent Auto 0.4 % (0-2); Eosinophils Absolute Auto 0.1 X10*3/uL (0.0-0.4); Eosinophils Percent Auto 1.3 % (0-4); Hematocrit 35.5 % (42.0-52.0); Hemoglobin 12.6 g/dl (14.0-18.0); Imm Gran Abs Auto 0.02 X10*3/uL (0.00-0.03); Imm Gran Pct Auto 0.4 % (0.0-0.4); Lymphocytes Absolute Auto 1.8 X10*3/uL (1.2-4.9); Mean Corpuscular HGB Conc 35.5 g/dl (31.0-36.0); Mean Corpuscular Hemoglobin 29.4 pg (27.0-33.0); Mean Corpuscular Volume 82.8 fL (80.0-98.0); Mean Platelet Volume 10.2 fL (9.4-12.4); Monocytes Absolute Auto 0.5 X10*3/uL (0.1-1.2); Monocytes Percent Auto 9.5 % (2-11); Neutrophils Absolute Auto 2.9 x10*3/uL (2.0-8.3); Neutrophils Percent Auto 54.4 % (45-73); Platelet Count 113 X10*3/uL (160-400); Red Blood Count 4.29 X10*6/uL (4.60-5.80); White Blood Count 5.4 X10*3/uL (4.8-10.8)
[2021-10-10 08:41] LABS: Alanine Aminotransferase 26 U/L (0-40); Albumin Level 4.5 g/dL (3.5-5.0); Alkaline Phosphatase 87 U/L (39-117); Anion Gap 11 (12-20); Aspartate Amino Transferase 18 U/L (5-37); Bilirubin Total 0.8 mg/dL (0.0-1.0); Blood Urea Nitrogen 25 mg/dL (9-16); Calcium 9.9 mg/dL (8.4-10.2); Carbon Dioxide 25 mmol/L (22-29); Chloride 105 mmol/L (96-108); Estimated Glomerular Filt Rate 54; Glucose Random 193 mg/dL (60-115); Magnesium 1.4 mg/dL (1.6-2.6); Potassium 4.9 mmol/L (3.3-5.1); Sodium 136 mmol/L (135-145); Total Protein 7.1 g/dL (6.5-8.0)
[2021-10-12 09:22] LABS: Tacrolimus Prograf 7.6 mcg/L
== END 2021-10-10 06:39 | disposition home or self-care (01) ==
LOC: HO.LABR 06:38
PROVIDERS: PCP Internal Medicine; Visit Provider Internal Medicine
DX: Z94.4 Liver transplant status (principal); Z79.899 Other long term (current) drug therapy
CPT/HCPCS: 36415; 80053; 80197; 83735; 85025

== ENCOUNTER 2021-10-24 08:49 | Outpatient (REF) | payer OTHER, SELFPAY ==
[2021-10-24 09:10] LABS: MANUAL DIFF FLAG NO
[2021-10-24 09:32] LABS: Basophils Percent Auto 0.7 % (0-2); Eosinophils Absolute Auto 0.1 X10*3/uL (0.0-0.4); Eosinophils Percent Auto 1.8 % (0-4); Hematocrit 32.7 % (42.0-52.0); Hemoglobin 11.4 g/dl (14.0-18.0); Imm Gran Abs Auto 0.01 X10*3/uL (0.00-0.03); Imm Gran Pct Auto 0.2 % (0.0-0.4); Lymphocytes Absolute Auto 1.3 X10*3/uL (1.2-4.9); Lymphocytes Percent Auto 29.2 % (20-40); Mean Corpuscular HGB Conc 34.9 g/dl (31.0-36.0); Mean Corpuscular Hemoglobin 29.5 pg (27.0-33.0); Mean Corpuscular Volume 84.5 fL (80.0-98.0); Mean Platelet Volume 10.5 fL (9.4-12.4); Monocytes Absolute Auto 0.4 X10*3/uL (0.1-1.2); Monocytes Percent Auto 9.7 % (2-11); Neutrophils Absolute Auto 2.6 x10*3/uL (2.0-8.3); Neutrophils Percent Auto 58.4 % (45-73); Platelet Count 105 X10*3/uL (160-400); Red Blood Count 3.87 X10*6/uL (4.60-5.80); White Blood Count 4.4 X10*3/uL (4.8-10.8)
[2021-10-24 09:56] LABS: Alanine Aminotransferase 29 U/L (0-40); Albumin Level 4.2 g/dL (3.5-5.0); Alkaline Phosphatase 87 U/L (39-117); Anion Gap 10 (12-20); Aspartate Amino Transferase 25 U/L (5-37); Bilirubin Total 0.6 mg/dL (0.0-1.0); Blood Urea Nitrogen 27 mg/dL (9-16); Calcium 8.8 mg/dL (8.4-10.2); Carbon Dioxide 22 mmol/L (22-29); Chloride 112 mmol/L (96-108); Estimated Glomerular Filt Rate 54; Glucose Random 160 mg/dL (60-115); Magnesium 1.8 mg/dL (1.6-2.6); Potassium 5.3 mmol/L (3.3-5.1); Sodium 139 mmol/L (135-145); Total Protein 6.5 g/dL (6.5-8.0)
[2021-10-26 11:07] LABS: Tacrolimus Prograf 9.3 mcg/L
== END 2021-10-24 08:50 | disposition home or self-care (01) ==
LOC: HO.LABR 08:49
PROVIDERS: PCP Internal Medicine; Visit Provider Internal Medicine
DX: Z94.4 Liver transplant status (principal); Z79.899 Other long term (current) drug therapy
CPT/HCPCS: 36415; 80053; 80197; 83735; 85025

== ENCOUNTER 2021-11-06 08:38 | Outpatient (REF) | payer OTHER, SELFPAY ==
[2021-11-06 09:42] LABS: MANUAL DIFF FLAG NO
[2021-11-06 10:33] LABS: Basophils Percent Auto 0.7 % (0-2); Eosinophils Absolute Auto 0.1 X10*3/uL (0.0-0.4); Eosinophils Percent Auto 1.2 % (0-4); Hematocrit 34.4 % (42.0-52.0); Hemoglobin 11.9 g/dl (14.0-18.0); Imm Gran Abs Auto 0.02 X10*3/uL (0.00-0.03); Imm Gran Pct Auto 0.5 % (0.0-0.4); Lymphocytes Absolute Auto 1.2 X10*3/uL (1.2-4.9); Lymphocytes Percent Auto 28.3 % (20-40); Mean Corpuscular HGB Conc 34.6 g/dl (31.0-36.0); Mean Corpuscular Hemoglobin 29.2 pg (27.0-33.0); Mean Corpuscular Volume 84.5 fL (80.0-98.0); Mean Platelet Volume 10.8 fL (9.4-12.4); Monocytes Absolute Auto 0.4 X10*3/uL (0.1-1.2); Neutrophils Absolute Auto 2.4 x10*3/uL (2.0-8.3); Neutrophils Percent Auto 59.3 % (45-73); Platelet Count 111 X10*3/uL (160-400); Red Blood Count 4.07 X10*6/uL (4.60-5.80); Red Cell Distribution Width 12.8 % (11.0-16.0); White Blood Count 4.1 X10*3/uL (4.8-10.8)
[2021-11-06 11:20] LABS: Alanine Aminotransferase 27 U/L (0-40); Albumin Level 4.4 g/dL (3.5-5.0); Alkaline Phosphatase 91 U/L (39-117); Anion Gap 11 (12-20); Aspartate Amino Transferase 22 U/L (5-37); Bilirubin Total 0.5 mg/dL (0.0-1.0); Blood Urea Nitrogen 25 mg/dL (9-16); Calcium 9.2 mg/dL (8.4-10.2); Carbon Dioxide 22 mmol/L (22-29); Chloride 108 mmol/L (96-108); Estimated Glomerular Filt Rate 46; Glucose Random 402 mg/dL (60-115); Magnesium 1.5 mg/dL (1.6-2.6); Potassium 5.2 mmol/L (3.3-5.1); Sodium 136 mmol/L (135-145)
[2021-11-07 13:21] LABS: Tacrolimus Prograf 4.7 mcg/L
== END 2021-11-06 08:39 | disposition home or self-care (01) ==
LOC: HO.LABR 08:38
PROVIDERS: PCP Internal Medicine; Visit Provider Internal Medicine
DX: Z94.4 Liver transplant status (principal); J91.8 Pleural effusion in other conditions classified elsewhere; K76.9 Liver disease, unspecified; R07.89 Other chest pain; Z79.899 Other long term (current) drug therapy
CPT/HCPCS: 36415; 80053; 80197; 83735; 85025; 99202

== ENCOUNTER 2021-11-20 13:22 | Outpatient (REF) | payer OTHER, SELFPAY ==
--- NOTE | ~2021-11-20 | CT_ITS ---
EXAMINATION: CT CHEST WITHOUT CONTRAST CLINICAL INFORMATION: Liver disease COMPARISON: Previous chest CTA June 2019 and chest x-ray October 2019 TECHNIQUE: Multidetector volumetric CT imaging of the chest was done. Axial MIP volume rendering provided. Sagittal and coronal reformatted images were obtained. This CT examination was performed using dose optimization techniques as appropriate, variously including the following: *Automated exposure control *Adjustment of mA and/or kV according to patient size (this includes techniques or standardized protocols for targeted exams where dose is matched to indication/reason for exam; i.e. extremities or head) *Use of iterative reconstruction technique DLP: 313 mGy-cm FINDINGS: LUNGS: There is a 5 mm peripheral right middle lobe nodule axial image 270 series 5 probably representing subpleural lymph nodes.. This is similar to 2020 exam. There is a 2 mm left upper lobe nodule axial image 167 series 5. There is a 2 mm peripheral or subpleural left lower lobe nodule adjacent to the fissure axial image 206 series 5 and there are 2 and 3 mm right lower lobe nodules axial image 36 and 239 series 5. There is a 2 mm peripheral or subpleural right lower lobe nodule adjacent to the fissure axial image 99 series 5. There is a 4 mm peripheral or subpleural left lower lobe nodule axial image 81 series 5. There is a 2 mm peripheral or subpleural right lower lobe nodule adjacent to the major fissure axial image 260 series 5. These pulmonary nodules are not appreciated on prior exam however probably represent subpleural lymph nodes. MEDIASTINUM: There is coronary artery calcification. The mediastinum is otherwise normal. PLEURA: There is no pleural effusion. No pleural mass or thickening. AXILLA: No lymphadenopathy. Bilateral gynecomastia UPPER ABDOMEN: There are surgical clips adjacent to the liver suggestive of a transplant. The spleen is not completely imaged but appears prominent. There is a small ventral hernia containing fat. OSSEOUS STRUCTURES: Unremarkable. CT/CT chest wo con IMPRESSION: Multiple bilateral pulmonary nodules, probably representing peripheral or subpleural lymph nodes. Largest pulmonary nodule measures 5 mm in the right middle lobe and is unchanged. Other pulmonary nodules are not appreciated on prior chest CTA from 2019. According to the UPDATED 2017 Fleischner Society recommendations, the advised follow-up imaging for less than 6 mm solid nodule: Low risk, no chest CT follow-up and high risk, optional chest CT follow-up in one. Fleischner guidelines were followed.
== END 2021-11-20 13:23 | disposition home or self-care (01) ==
LOC: HO.CT 13:22
PROVIDERS: PCP Internal Medicine; Visit Provider Internal Medicine Pulmonary Disease
DX: K76.9 Liver disease, unspecified (principal); J91.8 Pleural effusion in other conditions classified elsewhere
CPT/HCPCS: 71250

== ENCOUNTER 2021-11-21 07:01 | Outpatient (REF) | payer OTHER, SELFPAY ==
[2021-11-21 07:07] LABS: MANUAL DIFF FLAG NO
[2021-11-21 07:33] LABS: Basophils Percent Auto 0.5 % (0-2); Eosinophils Absolute Auto 0.1 X10*3/uL (0.0-0.4); Eosinophils Percent Auto 1.2 % (0-4); Hematocrit 32.1 % (42.0-52.0); Hemoglobin 11.3 g/dl (14.0-18.0); Imm Gran Abs Auto 0.01 X10*3/uL (0.00-0.03); Imm Gran Pct Auto 0.2 % (0.0-0.4); Lymphocytes Absolute Auto 1.3 X10*3/uL (1.2-4.9); Lymphocytes Percent Auto 30.5 % (20-40); Mean Corpuscular HGB Conc 35.2 g/dl (31.0-36.0); Mean Corpuscular Hemoglobin 29.6 pg (27.0-33.0); Mean Platelet Volume 10.9 fL (9.4-12.4); Monocytes Absolute Auto 0.5 X10*3/uL (0.1-1.2); Monocytes Percent Auto 11.1 % (2-11); Neutrophils Absolute Auto 2.5 x10*3/uL (2.0-8.3); Neutrophils Percent Auto 56.5 % (45-73); Platelet Count 106 X10*3/uL (160-400); Red Blood Count 3.82 X10*6/uL (4.60-5.80); Red Cell Distribution Width 12.6 % (11.0-16.0); White Blood Count 4.3 X10*3/uL (4.8-10.8)
[2021-11-21 09:00] LABS: Alanine Aminotransferase 18 U/L (0-40); Albumin Level 4.2 g/dL (3.5-5.0); Alkaline Phosphatase 89 U/L (39-117); Anion Gap 12 (12-20); Aspartate Amino Transferase 17 U/L (5-37); Bilirubin Total 0.5 mg/dL (0.0-1.0); Blood Urea Nitrogen 21 mg/dL (9-16); Calcium 9.3 mg/dL (8.4-10.2); Carbon Dioxide 23 mmol/L (22-29); Chloride 110 mmol/L (96-108); Estimated Glomerular Filt Rate 60; Glucose Random 208 mg/dL (60-115); Magnesium 1.4 mg/dL (1.6-2.6); Potassium 5.1 mmol/L (3.3-5.1); Sodium 140 mmol/L (135-145); Total Protein 6.8 g/dL (6.5-8.0)
[2021-11-22 10:52] LABS: Tacrolimus Prograf 5.4 mcg/L
== END 2021-11-21 07:02 | disposition home or self-care (01) ==
LOC: HO.LABR 07:01
PROVIDERS: PCP Internal Medicine; Visit Provider Internal Medicine
DX: Z94.4 Liver transplant status (principal); Z79.899 Other long term (current) drug therapy
CPT/HCPCS: 36415; 80053; 80197; 83735; 85025

== ENCOUNTER 2021-11-28 07:50 | Outpatient (REF) | payer OTHER, SELFPAY ==
[2021-11-28 08:03] LABS: MANUAL DIFF FLAG NO
[2021-11-28 08:25] LABS: Basophils Percent Auto 0.8 % (0-2); Eosinophils Absolute Auto 0.1 X10*3/uL (0.0-0.4); Eosinophils Percent Auto 2.5 % (0-4); Hematocrit 33.7 % (42.0-52.0); Hemoglobin 11.9 g/dl (14.0-18.0); Imm Gran Abs Auto 0.01 X10*3/uL (0.00-0.03); Imm Gran Pct Auto 0.2 % (0.0-0.4); Lymphocytes Absolute Auto 1.7 X10*3/uL (1.2-4.9); Lymphocytes Percent Auto 34.5 % (20-40); Mean Corpuscular HGB Conc 35.3 g/dl (31.0-36.0); Mean Corpuscular Hemoglobin 29.4 pg (27.0-33.0); Mean Corpuscular Volume 83.2 fL (80.0-98.0); Mean Platelet Volume 11.3 fL (9.4-12.4); Monocytes Absolute Auto 0.5 X10*3/uL (0.1-1.2); Monocytes Percent Auto 10.2 % (2-11); Neutrophils Absolute Auto 2.5 x10*3/uL (2.0-8.3); Neutrophils Percent Auto 51.8 % (45-73); Platelet Count 111 X10*3/uL (160-400); Red Blood Count 4.05 X10*6/uL (4.60-5.80); Red Cell Distribution Width 12.6 % (11.0-16.0); White Blood Count 4.8 X10*3/uL (4.8-10.8)
[2021-11-28 08:54] LABS: Alanine Aminotransferase 23 U/L (0-40); Albumin Level 4.4 g/dL (3.5-5.0); Alkaline Phosphatase 93 U/L (39-117); Anion Gap 12 (12-20); Aspartate Amino Transferase 18 U/L (5-37); Bilirubin Total 0.5 mg/dL (0.0-1.0); Blood Urea Nitrogen 21 mg/dL (9-16); Calcium 9.5 mg/dL (8.4-10.2); Carbon Dioxide 25 mmol/L (22-29); Chloride 106 mmol/L (96-108); Estimated Glomerular Filt Rate 57; Glucose Random 206 mg/dL (60-115); Magnesium 1.5 mg/dL (1.6-2.6); Potassium 4.9 mmol/L (3.3-5.1); Sodium 138 mmol/L (135-145); Total Protein 6.8 g/dL (6.5-8.0)
[2021-11-29 15:02] LABS: Tacrolimus Prograf 6.1 mcg/L
== END 2021-11-28 07:51 | disposition home or self-care (01) ==
LOC: HO.LABR 07:50
PROVIDERS: PCP Internal Medicine; Visit Provider Internal Medicine
DX: Z94.4 Liver transplant status (principal); Z79.899 Other long term (current) drug therapy
CPT/HCPCS: 36415; 80053; 80197; 83735; 85025

== ENCOUNTER → 2021-12-17 13:31 | Outpatient (BNVA) | payer OTHER, SELFPAY | PROVIDERS: PCP Internal Medicine; Visit Provider Internal Medicine Pulmonary Disease | DX: R07.89 Other chest pain (principal); K76.9 Liver disease, unspecified; J91.8 Pleural effusion in other conditions classified elsewhere; R91.8 Other nonspecific abnormal finding of lung field | CPT/HCPCS: 99212 ==

== ENCOUNTER 2021-12-19 08:16 | Outpatient (REF) | payer OTHER, SELFPAY ==
[2021-12-19 08:38] LABS: MANUAL DIFF FLAG NO
[2021-12-19 09:06] LABS: Basophils Percent Auto 0.8 % (0-2); Eosinophils Absolute Auto 0.1 X10*3/uL (0.0-0.4); Eosinophils Percent Auto 1.3 % (0-4); Hematocrit 35.3 % (42.0-52.0); Hemoglobin 12.5 g/dl (14.0-18.0); Imm Gran Abs Auto 0.01 X10*3/uL (0.00-0.03); Imm Gran Pct Auto 0.2 % (0.0-0.4); Lymphocytes Absolute Auto 1.4 X10*3/uL (1.2-4.9); Lymphocytes Percent Auto 26.5 % (20-40); Mean Corpuscular HGB Conc 35.4 g/dl (31.0-36.0); Mean Corpuscular Hemoglobin 29.4 pg (27.0-33.0); Mean Corpuscular Volume 83.1 fL (80.0-98.0); Monocytes Absolute Auto 0.6 X10*3/uL (0.1-1.2); Monocytes Percent Auto 10.8 % (2-11); Neutrophils Absolute Auto 3.1 x10*3/uL (2.0-8.3); Neutrophils Percent Auto 60.4 % (45-73); Platelet Count 121 X10*3/uL (160-400); Red Blood Count 4.25 X10*6/uL (4.60-5.80); Red Cell Distribution Width 12.3 % (11.0-16.0); White Blood Count 5.2 X10*3/uL (4.8-10.8)
[2021-12-19 09:23] LABS: Alanine Aminotransferase 25 U/L (0-40); Albumin Level 4.4 g/dL (3.5-5.0); Alkaline Phosphatase 84 U/L (39-117); Anion Gap 13 (12-20); Aspartate Amino Transferase 21 U/L (5-37); Bilirubin Total 0.6 mg/dL (0.0-1.0); Blood Urea Nitrogen 18 mg/dL (9-16); Calcium 9.8 mg/dL (8.4-10.2); Carbon Dioxide 25 mmol/L (22-29); Chloride 106 mmol/L (96-108); Estimated Glomerular Filt Rate 58; Glucose Random 154 mg/dL (60-115); Potassium 4.2 mmol/L (3.3-5.1); Sodium 140 mmol/L (135-145)
[2021-12-19 09:29] LABS: Magnesium 1.3 mg/dL (1.6-2.6)
[2021-12-21 10:27] LABS: Tacrolimus Prograf 5.4 mcg/L
== END 2021-12-19 08:17 | disposition home or self-care (01) ==
LOC: HO.LABR 08:16
PROVIDERS: PCP Internal Medicine; Visit Provider Internal Medicine
DX: Z94.4 Liver transplant status (principal); Z79.899 Other long term (current) drug therapy
CPT/HCPCS: 36415; 80053; 80197; 83735; 85025

== ENCOUNTER 2022-01-17 06:58 | Outpatient (REF) | payer OTHER, SELFPAY ==
[2022-01-17 07:04] LABS: MANUAL DIFF FLAG NO
[2022-01-17 07:51] LABS: Basophils Percent Auto 0.7 % (0-2); Eosinophils Absolute Auto 0.1 X10*3/uL (0.0-0.4); Eosinophils Percent Auto 1.2 % (0-4); Hematocrit 35.3 % (42.0-52.0); Hemoglobin 12.3 g/dl (14.0-18.0); Imm Gran Abs Auto 0.01 X10*3/uL (0.00-0.03); Imm Gran Pct Auto 0.2 % (0.0-0.4); Lymphocytes Absolute Auto 1.6 X10*3/uL (1.2-4.9); Lymphocytes Percent Auto 36.9 % (20-40); Mean Corpuscular HGB Conc 34.8 g/dl (31.0-36.0); Mean Corpuscular Hemoglobin 29.6 pg (27.0-33.0); Mean Corpuscular Volume 84.9 fL (80.0-98.0); Mean Platelet Volume 10.6 fL (9.4-12.4); Monocytes Absolute Auto 0.4 X10*3/uL (0.1-1.2); Monocytes Percent Auto 10.3 % (2-11); Neutrophils Absolute Auto 2.2 x10*3/uL (2.0-8.3); Neutrophils Percent Auto 50.7 % (45-73); Platelet Count 110 X10*3/uL (160-400); Red Blood Count 4.16 X10*6/uL (4.60-5.80); Red Cell Distribution Width 12.4 % (11.0-16.0); White Blood Count 4.3 X10*3/uL (4.8-10.8)
[2022-01-17 09:05] LABS: Alanine Aminotransferase 31 U/L (0-40); Albumin Level 4.5 g/dL (3.5-5.0); Alkaline Phosphatase 84 U/L (39-117); Anion Gap 13 (12-20); Aspartate Amino Transferase 22 U/L (5-37); Bilirubin Total 0.4 mg/dL (0.0-1.0); Blood Urea Nitrogen 16 mg/dL (9-16); Calcium 9.4 mg/dL (8.4-10.2); Carbon Dioxide 24 mmol/L (22-29); Chloride 107 mmol/L (96-108); Estimated Glomerular Filt Rate > 60; Glucose Random 122 mg/dL (60-115); Magnesium 1.3 mg/dL (1.6-2.6); Potassium 4.8 mmol/L (3.3-5.1); Sodium 139 mmol/L (135-145); Total Protein 6.9 g/dL (6.5-8.0)
== END 2022-01-17 06:59 | disposition home or self-care (01) ==
LOC: HO.LABR 06:58
PROVIDERS: Visit Provider Internal Medicine
DX: Z94.4 Liver transplant status (principal); Z79.899 Other long term (current) drug therapy
CPT/HCPCS: 36415; 80053; 80197; 83735; 85025

== ENCOUNTER 2022-02-18 06:59 | Outpatient (REF) | payer OTHER, SELFPAY ==
[2022-02-18 07:09] LABS: MANUAL DIFF FLAG NO
[2022-02-18 07:36] LABS: Basophils Percent Auto 0.9 % (0-2); Eosinophils Absolute Auto 0.1 X10*3/uL (0.0-0.4); Eosinophils Percent Auto 2.9 % (0-4); Hemoglobin 11.8 g/dl (14.0-18.0); Imm Gran Abs Auto 0.01 X10*3/uL (0.00-0.03); Imm Gran Pct Auto 0.2 % (0.0-0.4); Lymphocytes Absolute Auto 1.4 X10*3/uL (1.2-4.9); Mean Corpuscular HGB Conc 34.7 g/dl (31.0-36.0); Mean Corpuscular Hemoglobin 29.1 pg (27.0-33.0); Monocytes Absolute Auto 0.5 X10*3/uL (0.1-1.2); Neutrophils Absolute Auto 2.5 x10*3/uL (2.0-8.3); Platelet Count 104 X10*3/uL (160-400); Red Blood Count 4.05 X10*6/uL (4.60-5.80); Red Cell Distribution Width 12.6 % (11.0-16.0); White Blood Count 4.5 X10*3/uL (4.8-10.8)
[2022-02-18 07:49] LABS: Alanine Aminotransferase 26 U/L (0-40); Albumin Level 4.4 g/dL (3.5-5.0); Alkaline Phosphatase 86 U/L (39-117); Anion Gap 13 (12-20); Aspartate Amino Transferase 20 U/L (5-37); Bilirubin Total 0.5 mg/dL (0.0-1.0); Blood Urea Nitrogen 25 mg/dL (9-16); Calcium 9.6 mg/dL (8.4-10.2); Carbon Dioxide 23 mmol/L (22-29); Chloride 109 mmol/L (96-108); Estimated Glomerular Filt Rate 52; Glucose Random 145 mg/dL (60-115); Magnesium 1.6 mg/dL (1.6-2.6); Sodium 140 mmol/L (135-145); Total Protein 6.9 g/dL (6.5-8.0)
[2022-02-20 09:52] LABS: Tacrolimus Prograf 5.3 mcg/L
== END 2022-02-18 07:00 | disposition home or self-care (01) ==
LOC: HO.LABR 06:59
PROVIDERS: Visit Provider Internal Medicine
DX: Z94.4 Liver transplant status (principal); Z79.899 Other long term (current) drug therapy
CPT/HCPCS: 36415; 80053; 80197; 83735; 85025

== ENCOUNTER 2022-03-21 08:15 | Outpatient (REF) | payer OTHER, SELFPAY ==
[2022-03-21 08:26] LABS: MANUAL DIFF FLAG NO
[2022-03-21 08:54] LABS: Basophils Absolute Auto 0.1 X10*3/uL (0.0-0.2); Basophils Percent Auto 0.6 % (0-2); Eosinophils Absolute Auto 0.3 X10*3/uL (0.0-0.4); Eosinophils Percent Auto 2.9 % (0-4); Hematocrit 35.9 % (42.0-52.0); Hemoglobin 12.6 g/dl (14.0-18.0); Imm Gran Abs Auto 0.03 X10*3/uL (0.00-0.03); Imm Gran Pct Auto 0.3 % (0.0-0.4); Lymphocytes Absolute Auto 1.9 X10*3/uL (1.2-4.9); Lymphocytes Percent Auto 20.6 % (20-40); Mean Corpuscular HGB Conc 35.1 g/dl (31.0-36.0); Mean Corpuscular Hemoglobin 29.3 pg (27.0-33.0); Mean Corpuscular Volume 83.5 fL (80.0-98.0); Mean Platelet Volume 10.4 fL (9.4-12.4); Monocytes Absolute Auto 0.7 X10*3/uL (0.1-1.2); Neutrophils Absolute Auto 6.1 x10*3/uL (2.0-8.3); Neutrophils Percent Auto 67.6 % (45-73); Platelet Count 134 X10*3/uL (160-400); Red Cell Distribution Width 12.4 % (11.0-16.0); White Blood Count 9.1 X10*3/uL (4.8-10.8)
[2022-03-21 09:50] LABS: Alanine Aminotransferase 31 U/L (0-40); Albumin Level 4.5 g/dL (3.5-5.0); Alkaline Phosphatase 109 U/L (39-117); Anion Gap 10 (12-20); Aspartate Amino Transferase 25 U/L (5-37); Bilirubin Total 0.8 mg/dL (0.0-1.0); Blood Urea Nitrogen 22 mg/dL (9-16); Calcium 9.6 mg/dL (8.4-10.2); Carbon Dioxide 25 mmol/L (22-29); Chloride 103 mmol/L (96-108); Estimated Glomerular Filt Rate 55; Glucose Random 117 mg/dL (60-115); Magnesium 1.3 mg/dL (1.6-2.6); Phosphorus 3.4 mg/dL (2.7-4.5); Sodium 133 mmol/L (135-145)
[2022-03-23 06:09] LABS: Tacrolimus Prograf 7.5 mcg/L
== END 2022-03-21 08:16 | disposition home or self-care (01) ==
LOC: HO.LABR 08:15
PROVIDERS: PCP Internal Medicine; Visit Provider Internal Medicine
DX: Z94.4 Liver transplant status (principal); Z79.899 Other long term (current) drug therapy
CPT/HCPCS: 36415; 80053; 80197; 83735; 84100; 85025

== ENCOUNTER 2022-04-22 07:26 | Outpatient (REF) | payer OTHER, SELFPAY ==
[2022-04-22 09:35] LABS: Alanine Aminotransferase 32 U/L (0-40); Albumin Level 4.3 g/dL (3.5-5.0); Alkaline Phosphatase 89 U/L (39-117); Anion Gap 12 (12-20); Aspartate Amino Transferase 26 U/L (5-37); Bilirubin Total 0.5 mg/dL (0.0-1.0); Blood Urea Nitrogen 21 mg/dL (9-16); Calcium 9.6 mg/dL (8.4-10.2); Carbon Dioxide 23 mmol/L (22-29); Chloride 111 mmol/L (96-108); Estimated Glomerular Filt Rate 47; Glucose Random 108 mg/dL (60-115); Magnesium 1.4 mg/dL (1.6-2.6); Phosphorus 2.8 mg/dL (2.7-4.5); Potassium 4.5 mmol/L (3.3-5.1); Sodium 141 mmol/L (135-145); Total Protein 6.8 g/dL (6.5-8.0)
[2022-04-23 08:34] LABS: Tacrolimus Prograf 7.6 mcg/L
== END 2022-04-22 07:27 | disposition home or self-care (01) ==
LOC: HO.LABR 07:26
PROVIDERS: Visit Provider Internal Medicine
DX: Z94.4 Liver transplant status (principal); Z79.899 Other long term (current) drug therapy
CPT/HCPCS: 36415; 80053; 80197; 83735; 84100

== ENCOUNTER 2022-05-21 07:58 | Outpatient (REF) | payer OTHER, SELFPAY ==
[2022-05-21 08:12] LABS: MANUAL DIFF FLAG NO
[2022-05-21 08:39] LABS: Basophils Percent Auto 0.8 % (0-2); Eosinophils Absolute Auto 0.1 X10*3/uL (0.0-0.4); Eosinophils Percent Auto 1.8 % (0-4); Hematocrit 35.8 % (42.0-52.0); Hemoglobin 12.5 g/dl (14.0-18.0); Imm Gran Abs Auto 0.01 X10*3/uL (0.00-0.03); Imm Gran Pct Auto 0.3 % (0.0-0.4); Lymphocytes Absolute Auto 1.3 X10*3/uL (1.2-4.9); Lymphocytes Percent Auto 34.5 % (20-40); Mean Corpuscular HGB Conc 34.9 g/dl (31.0-36.0); Mean Corpuscular Hemoglobin 29.6 pg (27.0-33.0); Mean Corpuscular Volume 84.6 fL (80.0-98.0); Mean Platelet Volume 11.1 fL (9.4-12.4); Monocytes Absolute Auto 0.4 X10*3/uL (0.1-1.2); Monocytes Percent Auto 10.1 % (2-11); Neutrophils Percent Auto 52.5 % (45-73); Platelet Count 113 X10*3/uL (160-400); Red Blood Count 4.23 X10*6/uL (4.60-5.80); Red Cell Distribution Width 12.6 % (11.0-16.0); White Blood Count 3.9 X10*3/uL (4.8-10.8)
[2022-05-21 08:57] LABS: Alanine Aminotransferase 39 U/L (0-40); Albumin Level 4.1 g/dL (3.5-5.0); Anion Gap 13 (12-20); Aspartate Amino Transferase 30 U/L (5-37); Bilirubin Total 0.5 mg/dL (0.0-1.0); Blood Urea Nitrogen 25 mg/dL (9-16); Carbon Dioxide 23 mmol/L (22-29); Chloride 112 mmol/L (96-108); Estimated Glomerular Filt Rate 46; Glucose Random 189 mg/dL (60-115); Magnesium 1.6 mg/dL (1.6-2.6); Potassium 4.6 mmol/L (3.3-5.1); Sodium 143 mmol/L (135-145); Total Protein 6.6 g/dL (6.5-8.0)
[2022-05-21 09:07] LABS: Alkaline Phosphatase 118 U/L (39-117)
== END 2022-05-21 07:59 | disposition home or self-care (01) ==
LOC: HO.LAB 07:58
PROVIDERS: PCP Internal Medicine; Visit Provider Internal Medicine
DX: Z94.4 Liver transplant status (principal); Z79.899 Other long term (current) drug therapy
CPT/HCPCS: 36415; 80053; 80197; 83735; 84100; 85025

== ENCOUNTER 2022-06-18 07:20 | Outpatient (REF) | payer OTHER, SELFPAY ==
[2022-06-18 07:31] LABS: MANUAL DIFF FLAG NO
[2022-06-18 08:15] LABS: Basophils Percent Auto 0.4 % (0-2); Eosinophils Absolute Auto 0.1 X10*3/uL (0.0-0.4); Eosinophils Percent Auto 1.3 % (0-4); Hematocrit 35.9 % (42.0-52.0); Hemoglobin 12.7 g/dl (14.0-18.0); Imm Gran Abs Auto 0.01 X10*3/uL (0.00-0.03); Imm Gran Pct Auto 0.2 % (0.0-0.4); Lymphocytes Absolute Auto 1.7 X10*3/uL (1.2-4.9); Lymphocytes Percent Auto 36.9 % (20-40); Mean Corpuscular HGB Conc 35.4 g/dl (31.0-36.0); Mean Corpuscular Hemoglobin 29.2 pg (27.0-33.0); Mean Corpuscular Volume 82.5 fL (80.0-98.0); Mean Platelet Volume 10.9 fL (9.4-12.4); Monocytes Absolute Auto 0.5 X10*3/uL (0.1-1.2); Monocytes Percent Auto 10.7 % (2-11); Neutrophils Absolute Auto 2.3 x10*3/uL (2.0-8.3); Neutrophils Percent Auto 50.5 % (45-73); Platelet Count 114 X10*3/uL (160-400); Red Blood Count 4.35 X10*6/uL (4.60-5.80); Red Cell Distribution Width 12.7 % (11.0-16.0); White Blood Count 4.5 X10*3/uL (4.8-10.8)
[2022-06-18 08:43] LABS: Alanine Aminotransferase 35 U/L (0-40); Albumin Level 4.4 g/dL (3.5-5.0); Alkaline Phosphatase 103 U/L (39-117); Anion Gap 12 (12-20); Aspartate Amino Transferase 24 U/L (5-37); Bilirubin Total 0.7 mg/dL (0.0-1.0); Blood Urea Nitrogen 27 mg/dL (9-16); Calcium 9.4 mg/dL (8.4-10.2); Carbon Dioxide 24 mmol/L (22-29); Chloride 108 mmol/L (96-108); Estimated Glomerular Filt Rate 53; Glucose Random 131 mg/dL (60-115); Magnesium 1.5 mg/dL (1.6-2.6); Phosphorus 3.5 mg/dL (2.7-4.5); Sodium 139 mmol/L (135-145)
[2022-06-19 12:48] LABS: Tacrolimus Prograf 8.3 NG/ML ((5-20))
== END 2022-06-18 07:21 | disposition home or self-care (01) ==
LOC: HO.LABR 07:20
PROVIDERS: PCP Internal Medicine; Visit Provider Internal Medicine
DX: Z94.4 Liver transplant status (principal); Z79.899 Other long term (current) drug therapy
CPT/HCPCS: 36415; 80053; 80197; 83735; 84100; 85025

== ENCOUNTER 2022-07-22 09:06 | Outpatient (REF) | payer OTHER, SELFPAY ==
[2022-07-22 09:31] LABS: MANUAL DIFF FLAG NO
[2022-07-22 10:06] LABS: Basophils Percent Auto 0.6 % (0-2); Eosinophils Percent Auto 0.8 % (0-4); Hemoglobin 12.9 g/dl (14.0-18.0); Imm Gran Abs Auto 0.02 X10*3/uL (0.00-0.03); Imm Gran Pct Auto 0.4 % (0.0-0.4); Lymphocytes Absolute Auto 1.5 X10*3/uL (1.2-4.9); Lymphocytes Percent Auto 30.5 % (20-40); Mean Corpuscular HGB Conc 34.9 g/dl (31.0-36.0); Mean Corpuscular Hemoglobin 29.5 pg (27.0-33.0); Mean Corpuscular Volume 84.5 fL (80.0-98.0); Mean Platelet Volume 10.5 fL (9.4-12.4); Monocytes Absolute Auto 0.4 X10*3/uL (0.1-1.2); Monocytes Percent Auto 8.6 % (2-11); Neutrophils Absolute Auto 2.8 x10*3/uL (2.0-8.3); Neutrophils Percent Auto 59.1 % (45-73); Platelet Count 112 X10*3/uL (160-400); Red Blood Count 4.38 X10*6/uL (4.60-5.80); Red Cell Distribution Width 13.1 % (11.0-16.0); White Blood Count 4.8 X10*3/uL (4.8-10.8)
[2022-07-22 10:33] LABS: Alanine Aminotransferase 29 U/L (0-40); Albumin Level 4.3 g/dL (3.5-5.0); Alkaline Phosphatase 102 U/L (39-117); Anion Gap 11 (12-20); Aspartate Amino Transferase 20 U/L (5-37); Bilirubin Total 0.5 mg/dL (0.0-1.0); Blood Urea Nitrogen 23 mg/dL (9-16); Calcium 9.4 mg/dL (8.4-10.2); Carbon Dioxide 26 mmol/L (22-29); Chloride 109 mmol/L (96-108); Estimated Glomerular Filt Rate 51; Glucose Random 102 mg/dL (60-115); Phosphorus 2.7 mg/dL (2.7-4.5); Potassium 5.1 mmol/L (3.3-5.1); Sodium 141 mmol/L (135-145); Total Protein 6.8 g/dL (6.5-8.0)
== END 2022-07-22 09:07 | disposition home or self-care (01) ==
LOC: HO.LABR 09:06
PROVIDERS: PCP Internal Medicine; Visit Provider Internal Medicine
DX: Z94.4 Liver transplant status (principal); Z79.899 Other long term (current) drug therapy
CPT/HCPCS: 36415; 80053; 80197; 84100; 85025

== ENCOUNTER 2022-08-19 08:05 | Outpatient (REF) | payer OTHER, SELFPAY ==
[2022-08-19 08:25] LABS: MANUAL DIFF FLAG NO
[2022-08-19 08:44] LABS: Basophils Percent Auto 0.5 % (0-2); Eosinophils Absolute Auto 0.1 X10*3/uL (0.0-0.4); Eosinophils Percent Auto 1.2 % (0-4); Hematocrit 37.4 % (42.0-52.0); Hemoglobin 13.1 g/dl (14.0-18.0); Imm Gran Abs Auto 0.02 X10*3/uL (0.00-0.03); Imm Gran Pct Auto 0.5 % (0.0-0.4); Lymphocytes Absolute Auto 1.4 X10*3/uL (1.2-4.9); Lymphocytes Percent Auto 32.5 % (20-40); Mean Corpuscular Hemoglobin 29.8 pg (27.0-33.0); Mean Platelet Volume 11.4 fL (9.4-12.4); Monocytes Absolute Auto 0.5 X10*3/uL (0.1-1.2); Monocytes Percent Auto 10.9 % (2-11); Neutrophils Absolute Auto 2.4 x10*3/uL (2.0-8.3); Neutrophils Percent Auto 54.4 % (45-73); Platelet Count 117 X10*3/uL (160-400); Red Cell Distribution Width 12.6 % (11.0-16.0); White Blood Count 4.3 X10*3/uL (4.8-10.8)
[2022-08-19 09:21] LABS: Alanine Aminotransferase 57 U/L (0-40); Albumin Level 4.2 g/dL (3.5-5.0); Alkaline Phosphatase 104 U/L (39-117); Anion Gap 11 (12-20); Aspartate Amino Transferase 34 U/L (5-37); Bilirubin Total 0.6 mg/dL (0.0-1.0); Blood Urea Nitrogen 22 mg/dL (9-16); Calcium 9.5 mg/dL (8.4-10.2); Carbon Dioxide 25 mmol/L (22-29); Chloride 109 mmol/L (96-108); Estimated Glomerular Filt Rate 53; Glucose Random 271 mg/dL (60-115); Magnesium 1.6 mg/dL (1.6-2.6); Potassium 4.6 mmol/L (3.3-5.1); Sodium 140 mmol/L (135-145); Total Protein 6.7 g/dL (6.5-8.0)
[2022-08-20 09:39] LABS: Tacrolimus Prograf 4.3 NG/ML ((5-20))
== END 2022-08-19 08:06 | disposition home or self-care (01) ==
LOC: HO.LABR 08:05
PROVIDERS: PCP Internal Medicine; Visit Provider Internal Medicine
DX: Z94.4 Liver transplant status (principal); Z79.899 Other long term (current) drug therapy
CPT/HCPCS: 36415; 80053; 80197; 83735; 84100; 85025

== ENCOUNTER 2022-09-19 07:11 | Outpatient (REF) | payer OTHER, SELFPAY ==
[2022-09-19 10:19] LABS: Alanine Aminotransferase 32 U/L (0-40); Albumin Level 4.3 g/dL (3.5-5.0); Alkaline Phosphatase 93 U/L (39-117); Anion Gap 13 (12-20); Aspartate Amino Transferase 21 U/L (5-37); Bilirubin Total 0.8 mg/dL (0.0-1.0); Blood Urea Nitrogen 21 mg/dL (9-16); Calcium 9.6 mg/dL (8.4-10.2); Carbon Dioxide 24 mmol/L (22-29); Chloride 107 mmol/L (96-108); Estimated Glomerular Filt Rate > 60; Glucose Random 181 mg/dL (60-115); Phosphorus 2.3 mg/dL (2.7-4.5); Potassium 4.5 mmol/L (3.3-5.1); Sodium 139 mmol/L (135-145); Total Protein 6.9 g/dL (6.5-8.0)
[2022-09-19 10:23] LABS: Magnesium 1.4 mg/dL (1.6-2.6)
[2022-09-19 15:37] LABS: Basophils Percent Auto 0.7 % (0-2); Imm Gran Abs Auto 0.02 X10*3/uL (0.00-0.03); Imm Gran Pct Auto 0.4 % (0.0-0.4); Mean Corpuscular Volume 85.4 fL (80.0-98.0); PLT CLUMP 1; SCAN SMEAR FLAG 1
[2022-09-19 15:39] LABS: Eosinophils Absolute Auto 0.1 X10*3/uL (0.0-0.4); Eosinophils Percent Auto 1.1 % (0-4); Hematocrit 38.5 % (42.0-52.0); Hemoglobin 13.1 g/dl (14.0-18.0); Lymphocytes Absolute Auto 1.8 X10*3/uL (1.2-4.9); Lymphocytes Percent Auto 32.9 % (20-40); Mean Platelet Volume 11.7 fL (9.4-12.4); Monocytes Absolute Auto 0.5 X10*3/uL (0.1-1.2); Monocytes Percent Auto 8.1 % (2-11); Neutrophils Absolute Auto 3.2 x10*3/uL (2.0-8.3); Neutrophils Percent Auto 56.8 % (45-73); Red Blood Count 4.51 X10*6/uL (4.60-5.80); Red Cell Distribution Width 12.9 % (11.0-16.0)
[2022-09-19 15:43] LABS: MANUAL DIFF FLAG NO; Platelet Count 116 X10*3/uL (160-400); White Blood Count 5.6 X10*3/uL (4.8-10.8)
[2022-09-20 11:49] LABS: Tacrolimus Prograf 6.2 NG/ML ((5-20))
== END 2022-09-19 07:12 | disposition home or self-care (01) ==
LOC: HO.LABR 07:11
PROVIDERS: PCP Internal Medicine; Visit Provider Internal Medicine
DX: Z94.4 Liver transplant status (principal); Z79.899 Other long term (current) drug therapy
CPT/HCPCS: 36415; 80053; 80197; 83735; 84100; 85025

== ENCOUNTER 2022-10-17 08:01 | Outpatient (REF) | payer OTHER, SELFPAY ==
[2022-10-17 09:55] LABS: Alanine Aminotransferase 30 U/L (0-40); Albumin Level 4.5 g/dL (3.5-5.0); Alkaline Phosphatase 87 U/L (39-117); Anion Gap 13 (12-20); Aspartate Amino Transferase 25 U/L (5-37); Bilirubin Total 0.8 mg/dL (0.0-1.0); Blood Urea Nitrogen 18 mg/dL (9-16); Calcium 9.8 mg/dL (8.4-10.2); Carbon Dioxide 22 mmol/L (22-29); Chloride 107 mmol/L (96-108); Estimated Glomerular Filt Rate > 60; Glucose Random 161 mg/dL (60-115); Magnesium 1.7 mg/dL (1.6-2.6); Phosphorus 2.5 mg/dL (2.7-4.5); Potassium 5.1 mmol/L (3.3-5.1); Sodium 137 mmol/L (135-145); Total Protein 7.6 g/dL (6.5-8.0)
[2022-10-18 14:27] LABS: Tacrolimus Prograf 5.9 NG/ML ((5-20))
== END 2022-10-17 08:02 | disposition home or self-care (01) ==
LOC: HO.LABR 08:01
PROVIDERS: Visit Provider Internal Medicine
DX: Z94.4 Liver transplant status (principal); Z79.899 Other long term (current) drug therapy
CPT/HCPCS: 36415; 80053; 80197; 83735; 84100

== ENCOUNTER 2022-11-12 08:42 | Outpatient (REF) | payer OTHER, SELFPAY ==
[2022-11-12 11:57] LABS: Alanine Aminotransferase 279 U/L (0-40); Albumin Level 3.8 g/dL (3.5-5.0); Alkaline Phosphatase 273 U/L (39-117); Anion Gap 12 (12-20); Aspartate Amino Transferase 73 U/L (5-37); Bilirubin Direct 4.6 mg/dL (0.0-0.5); Bilirubin Total 5.8 mg/dL (0.0-1.0); Blood Urea Nitrogen 27 mg/dL (9-16); Calcium 9.2 mg/dL (8.4-10.2); Carbon Dioxide 23 mmol/L (22-29); Chloride 102 mmol/L (96-108); Estimated Glomerular Filt Rate 44; Glucose Random 291 mg/dL (60-115); Potassium 4.4 mmol/L (3.3-5.1); Sodium 133 mmol/L (135-145)
== END 2022-11-12 08:43 | disposition home or self-care (01) ==
LOC: HO.HHCL 08:42
PROVIDERS: Visit Provider Internal Medicine
DX: C22.0 Liver cell carcinoma (principal)
CPT/HCPCS: 36415; 80048; 80076

== ENCOUNTER 2022-11-12 11:47 | Emergency (ER) | payer OTHER, SELFPAY ==
--- NOTE | ~2022-11-12 | US_ITS ---
EXAMINATION: US ABDOMEN LIMITED CLINICAL INFORMATION: Elevated LFTs right upper quadrant pain history liver transplant. COMPARISON: Ultrasound abdomen from 06/21/2021 TECHNIQUE: Real-time imaging of the right upper quadrant abdominal viscera. FINDINGS: PANCREAS: Normal. LIVER: Status post liver transplant. The liver is normal in size. The liver contour is normal. Parenchymal echogenicity is normal. No focal hepatic lesion. There is no intrahepatic biliary duct dilatation seen. Portal veins are patent and demonstrate hepatopedal flow. Hepatic arteries are patent. Hepatic veins are patent. GALLBLADDER: Surgically absent. COMMON BILE DUCT: Normal in caliber measuring 0.9 cm in diameter. RIGHT KIDNEY: Normal. No hydronephrosis. No renal calculi or focal parenchymal lesions. The kidney measures 10.6 cm in maximum dimension. SPLEEN: Spleen measures 13.0 cm. Splenic vein is patent. FREE FLUID: None. US/US duplex arterial venous comp IMPRESSION: 1. Status post liver transplant with patency of visualized vessels. 2. Status post cholecystectomy.
--- NOTE | ~2022-11-12 | US_ITS ---
EXAMINATION: US ABDOMEN LIMITED CLINICAL INFORMATION: Elevated LFTs right upper quadrant pain history liver transplant. COMPARISON: Ultrasound abdomen from 06/21/2021 TECHNIQUE: Real-time imaging of the right upper quadrant abdominal viscera. FINDINGS: PANCREAS: Normal. LIVER: Status post liver transplant. The liver is normal in size. The liver contour is normal. Parenchymal echogenicity is normal. No focal hepatic lesion. There is no intrahepatic biliary duct dilatation seen. Portal veins are patent and demonstrate hepatopedal flow. Hepatic arteries are patent. Hepatic veins are patent. GALLBLADDER: Surgically absent. COMMON BILE DUCT: Normal in caliber measuring 0.9 cm in diameter. RIGHT KIDNEY: Normal. No hydronephrosis. No renal calculi or focal parenchymal lesions. The kidney measures 10.6 cm in maximum dimension. SPLEEN: Spleen measures 13.0 cm. Splenic vein is patent. FREE FLUID: None. US/US abdomen limited IMPRESSION: 1. Status post liver transplant with patency of visualized vessels. 2. Status post cholecystectomy.
[2022-11-12 11:51] VITALS: BP 133/90; PULSE 82; RESP 18; TEMP 36.6; O2SAT 98; BMI 32.3
--- NOTE | 2022-11-12 11:51 | ED_ITS ---
HPI - General Adult General Chief complaint: General Medical Stated complaint: dark urine/ dizzy Time Seen by Provider: 11/12/22 14:12 Source: patient Mode of arrival: ambulatory Limitations: no limitations History of Present Illness HPI narrative: Patient 57 years old with history of and sit liver disease due to past ETOH use status post liver transplant 07/[address] [facility] with mild rejection on prednisone, with history of anxiety depression diabetes GERD comes here as for last 3 days noticed urine is darker in color no nausea no vomiting no significant abdominal pain no change in medications patient feels hungry no difficulty in urination no fever or chills no rash no new medication last visit was a month ago at [facility] and at that time according to him labs were stable patient had labs done earlier prior to arrival in the ER which shows elevated bilirubin to 5.8 which is increased from 0.8 a month ago Related Data Home Medications Medication Instructions Recorded Confirmed ferrous sulfate 325 mg (65 mg 325 mg PO DAILY 07/27/20 08/15/21 iron) tablet magnesium oxide 400 mg (241.3 mg 400 mg PO DAILY 07/27/20 08/15/21 magnesium) tablet (MagOx) insulin aspart U-100 100 unit/mL 10 unit subcut TID 06/21/21 08/15/21 (3 mL) subcutaneous pen (Novolog FlexPen U-100 Insulin aspart) insulin glargine 100 unit/mL (3 20 unit subcut BEDTIME 06/21/21 08/15/21 mL) subcutaneous pen (Lantus Solostar U-100 Insulin) multivitamin with folic acid 400 1 tab PO DAILY 06/21/21 08/15/21 mcg tablet (Daily-Stacy (with folic acid)) tramadol 50 mg tablet 1 tab PO Q8H PRN Pain 06/21/21 08/15/21 trazodone 100 mg tablet 1 tab PO BEDTIME PRN insomnia 06/21/21 08/15/21 zolpidem 10 mg tablet 1 tab PO BEDTIME PRN Sleep 06/21/21 08/15/21 blood sugar diagnostic (FreeStyle #10 ea 07/02/21 08/15/21 Lite Strips) cholecalciferol (vitamin D3) 50 50 mcg PO DAILY 07/02/21 08/15/21 mcg (2,000 unit) tablet (Vitamin D3) gabapentin 300 mg capsule 0 mg PO 07/02/21 08/15/21 metformin 500 mg tablet,extended 500 mg PO QPM 07/02/21 08/15/21 release 24 hr omeprazole 20 mg capsule,delayed 20 mg PO DAILY 07/02/21 08/15/21 release Previous Rx's Medication Instructions Recorded methocarbamol 750 mg tablet 750 mg PO TID PRN pain (scale 09/20/20 score 4-6) #20 tabs Allergies Allergy/AdvReac Type Severity Reaction Status Date / Time No Known Allergies Allergy Verified 11/12/22 11:51 [No Known Allergies*] Review of Systems Review of Systems: Yes all other systems are reviewed and are negative PMFSH Past Medical History Medical History 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, managed as type 2 GERD (gastroesophageal reflux disease) Hx of hepatitis Hx of substance abuse Tubular adenoma of colon Surgical History History of appendectomy History of open reduction and internal fixation (ORIF) procedure Hx of colonoscopy Hx of esophagogastroduodenoscopy S/P liver transplant Social History Social History Household Members: None Alcohol intake: never Patient Tobacco Use Status: Never used Tobacco Advance Directives: No Current occupational status: disabled Physical Exam ED Vital Signs: Vital Signs - 24 hr 11/12/22 11:51 11/12/22 14:32 Temperature 98 F 99.8 F Pulse Rate 82 70 Respiratory Rate 18 18 Blood Pressure 133/90 H 135/73 Pulse Oximetry 98 97 Oxygen Delivery Method Room Air Room Air BMI result Body Mass Index 32.3 Appearance: Alert. Oriented X3. No acute distress. Eyes: PERRLA, icterus++ ENT: Pharynx normal. Oral Mucosa moist Neck: Normal inspection. Neck supple. CVS: Normal heart rate and rhythm. Pulses normal. Respiratory: No respiratory distress. Equal air entry bilateral, no wheezin g/rales/rhonchi Abdomen: Soft and nontender. Bowel sounds are present, no mass palpable, no CVA tenderness Skin: Skin warm and dry. Normal skin color. Normal skin turgor. Extremities: No lower extremity edema. No calf tenderness Neuro: Oriented X 3. No motor deficit. No sensory deficit.No cerebellar signs , cranial nerves II-XII intact Course Course Course Narrative: RME - 57 y/o Serbian speaking male with history of liver transplant 3 years ago who presents to the ER for evaluation of dark urine and painful urination for the last 3 days. He also reports dizziness and some RUQ pain. Plan: lab workup and UA Medical Decision Making Medical Decision Making [facility] Narrative: Patient with acute liver failure status post liver transplant in 2019 etiology not clear possible biliary stricture case because Dr. Miranda at [facility] accepted the patient for transfer but patient [facility] signing against medical advice would like to go to [facility] tomorrow Differential Diagnosis Differential Diagnoses: The differential diagnosis associated with the presentation includes Acute hepatic failure /biliary stricture Admission/Observation Consideration of admission/observation: Escalation of care including admission/observation considered Lab Data [facility] Lab Attestation statement: I reviewed the patient's lab results. 11/12/22 12:11 11/12/22 12:11 Labs: Lab Results 11/12/22 11/12/22 11/12/22 Range/Units 12:11 12:11 14:39 WBC 7.7 (4.8-10.8) X10*3/uL RBC 4.20 L (4.60-5.80) X10*6/uL Hgb 12.3 L (14.0-18.0) g/dl Hct 35.6 L (42.0-52.0) % MCV 84.8 (80.0-98.0) fL MCH 29.3 (27.0-33.0) pg MCHC 34.6 (31.0-36.0) g/dl RDW 12.9 (11.0-16.0) % Plt Count 80 L D (160-400) X10*3/uL MPV 11.4 (9.4-12.4) fL Immature Gran % (Auto) 0.4 (0.0-0.4) % Neut % (Auto) 75.0 H (45-73) % Lymph % (Auto) 11.7 L (20-40) % [place] % (Auto) 12.1 H (2-11) % Eos % (Auto) 0.5 (0-4) % Baso % (Auto) 0.3 (0-2) % Lymph # (Auto) 0.9 L (1.2-4.9) X10*3/uL [place] # (Auto) 0.9 (0.1-1.2) X10*3/uL Eos # (Auto) 0.0 (0.0-0.4) X10*3/uL Baso # (Auto) 0.0 (0.0-0.2) X10*3/uL Abs Immat Gran (auto) 0.03 (0.00-0.03) X10*3/uL Absolute Neuts (auto) 5.8 (2.0-8.3) x10*3/uL Absolute Nucleated RBC 0.000 (0.0-0.012) X10*3/uL Nucleated RBC % (auto) 0.0 (0.0-0.2) /100WBC PT (11.1-13.3) SEC INR (0.9-1.1) APTT (26.0-36.4) SEC Sodium 135 (135-145) mmol/L Potassium 4.2 (3.3-5.1) mmol/L Chloride 105 (96-108) mmol/L Carbon Dioxide 23 (22-29) mmol/L Anion Gap 11 L (12-20) BUN 31 H (9-16) mg/dL Creatinine 1.55 H (0.5-1.4) mg/dL Estim Creat Clear Calc 56.6 Estimated GFR 46 Random Glucose 244 H (60-115) mg/dL Calcium 9.2 (8.4-10.2) mg/dL Magnesium 1.8 (1.6-2.6) mg/dL Total Bilirubin 5.7 H (0.0-1.0) mg/dL Direct Bilirubin 4.5 H (0.0-0.5) mg/dL AST 61 H (5-37) U/L ALT 263 H (0-40) U/L Alkaline Phosphatase 258 H (39-117) U/L Ammonia 26 (13-55) umol/L C-Reactive Protein 14.38 H (< or = 0.50) mg/dL Total Protein 6.9 (6.5-8.0) g/dL Albumin 3.9 (3.5-5.0) g/dL Urine Color Urine Appearance Urine pH (5.0-9.0) Ur Specific [place] (1.005-1.025) Urine Protein (Neg-Trace) mg/dL Urine Glucose (UA) (Negative) mg/dL Urine Ketones (Negative) mg/dL Urine Blood (Negative) Urine Nitrite (Negative) Ur Leukocyte Esterase (Negative) Urine RBC (0-2) /HPF Urine WBC (0-5) /HPF Ur Squamous Epith Cells (0-2) /HPF Other Crystals Urine Bacteria (None Seen) Hyaline Casts (0-2) /LPF Granular Casts 11/12/22 11/12/22 Range/Units 14:39 14:40 WBC (4.8-10.8) X10*3/uL RBC (4.60-5.80) X10*6/uL Hgb (14.0-18.0) g/dl Hct (42.0-52.0) % MCV (80.0-98.0) fL MCH (27.0-33.0) pg MCHC (31.0-36.0) g/dl RDW (11.0-16.0) % Plt Count (160-400) X10*3/uL MPV (9.4-12.4) fL Immature Gran % (Auto) (0.0-0.4) % Neut % (Auto) (45-73) % Lymph % (Auto) (20-40) % [place] % (Auto) (2-11) % Eos % (Auto) (0-4) % Baso % (Auto) (0-2) % Lymph # (Auto) (1.2-4.9) X10*3/uL [place] # (Auto) (0.1-1.2) X10*3/uL Eos # (Auto) (0.0-0.4) X10*3/uL Baso # (Auto) (0.0-0.2) X10*3/uL Abs Immat Gran (auto) (0.00-0.03) X10*3/uL Absolute Neuts (auto) (2.0-8.3) x10*3/uL Absolute Nucleated RBC (0.0-0.012) X10*3/uL Nucleated RBC % (auto) (0.0-0.2) /100WBC PT 15.8 H (11.1-13.3) SEC INR 1.3 H (0.9-1.1) APTT 31.7 (26.0-36.4) SEC Sodium (135-145) mmol/L Potassium (3.3-5.1) mmol/L Chloride (96-108) mmol/L Carbon Dioxide (22-29) mmol/L Anion Gap (12-20) BUN (9-16) mg/dL Creatinine (0.5-1.4) mg/dL Estim Creat Clear Calc Estimated GFR Random Glucose (60-115) mg/dL Calcium (8.4-10.2) mg/dL Magnesium (1.6-2.6) mg/dL Total Bilirubin (0.0-1.0) mg/dL Direct Bilirubin (0.0-0.5) mg/dL AST (5-37) U/L ALT (0-40) U/L Alkaline Phosphatase (39-117) U/L Ammonia (13-55) umol/L C-Reactive Protein (< or = 0.50) mg/dL Total Protein (6.5-8.0) g/dL Albumin (3.5-5.0) g/dL Urine Color DK YELLOW Urine Appearance Clear Urine pH 5.5 (5.0-9.0) Ur Specific [place] 1.025 (1.005-1.025) Urine Protein 30 (1+) H (Neg-Trace) mg/dL Urine Glucose (UA) 100 H (Negative) mg/dL Urine Ketones Trace (Negative) mg/dL Urine Blood Trace (Negative) Urine Nitrite Positive H (Negative) Ur Leukocyte Esterase Negative (Negative) Urine RBC 3-5 H (0-2) /HPF Urine WBC 0-5 (0-5) /HPF Ur Squamous Epith Cells 0-2 (0-2) /HPF Other Crystals Present Urine Bacteria Trace (None Seen) Hyaline Casts 0-2 (0-2) /LPF Granular Casts Present Radiology Impression Discussion of test interpretation with radiology: I have reviewed the radiologist's reading. Radiologist Impression: US/US duplex arterial venous comp IMPRESSION: 1.? Status post liver transplant with patency of visualized vessels. 2.? Status post cholecystectomy. ? Critical Care Time Critical Care Time Critical Care Time: Yes Total Critical Care Time: 45 Attestation: The patient was critically ill with a high probability of imminent or life threatening deterioration. I spent greater than 45 minutes of discontinuous time evaluating the patient,delivering critical care at the bedside, discussing and evaluating pertinent data with consultants. Critical care time does not include time spent performing separately billable procedures or teaching. Total time spent performing critical care was 45 minutes. Discharge Plan Discharge Clinical Impression: Acute liver failure, S/P liver transplant Patient Disposition: Left Against Medical Advice Instructions: Acute Liver Failure (DC), Lung Transplant (DC) Additional Instructions: Please go to [facility] liver transplant center in a.m. Or come back to the ER for transfer for further management Prescriptions: No Action methocarbamol 750 mg tablet 750 mg PO TID PRN (Reason: pain (scale score 4-6)) Qty: 20 0RF tramadol 50 mg tablet 1 tab PO Q8H PRN (Reason: Pain) trazodone 100 mg tablet 1 tab PO BEDTIME PRN (Reason: insomnia) zolpidem 10 mg tablet 1 tab PO BEDTIME PRN (Reason: Sleep) insulin aspart U-100 [Novolog FlexPen U-100 Insulin] 100 unit/mL (3 mL) insulin pen 10 unit subcut TID Lantus Solostar U-100 Insulin 100 unit/mL (3 mL) insulin pen 20 unit subcut BEDTIME multivitamin with folic acid [Daily-Stacy (with folic acid)] 400 mcg tablet 1 tab PO DAILY magnesium oxide [MagOx] 400 mg (241.3 mg magnesium) tablet 400 mg PO DAILY ferrous sulfate 325 mg (65 mg iron) tablet 325 mg PO DAILY gabapentin 300 mg capsule 0 mg PO (DME) FreeStyle Lite Strips Strip See Rx Instructions Not Applicable TID Qty: 10 Rx Instructions: As directed cholecalciferol (vitamin D3) [Vitamin D3] 50 mcg (2,000 unit) tablet 50 mcg PO DAILY metformin 500 mg tablet extended release 24 hr 500 mg PO QPM omeprazole 20 mg capsule,delayed release(DR/EC) 20 mg PO DAILY Stand Alone Forms: Against Medical Advice Interventions: ED Discharge Assessment Last Done: 11/12/22 16:49 Discharge Date/Time: 11/12/22 16:50
[2022-11-12 12:15] LABS: MANUAL DIFF FLAG NO
[2022-11-12 12:24] LABS: Basophils Percent Auto 0.3 % (0-2); Eosinophils Percent Auto 0.5 % (0-4); Hematocrit 35.6 % (42.0-52.0); Hemoglobin 12.3 g/dl (14.0-18.0); Imm Gran Abs Auto 0.03 X10*3/uL (0.00-0.03); Imm Gran Pct Auto 0.4 % (0.0-0.4); Lymphocytes Absolute Auto 0.9 X10*3/uL (1.2-4.9); Lymphocytes Percent Auto 11.7 % (20-40); Mean Corpuscular HGB Conc 34.6 g/dl (31.0-36.0); Mean Corpuscular Hemoglobin 29.3 pg (27.0-33.0); Mean Corpuscular Volume 84.8 fL (80.0-98.0); Mean Platelet Volume 11.4 fL (9.4-12.4); Monocytes Absolute Auto 0.9 X10*3/uL (0.1-1.2); Monocytes Percent Auto 12.1 % (2-11); Neutrophils Absolute Auto 5.8 x10*3/uL (2.0-8.3); Red Cell Distribution Width 12.9 % (11.0-16.0); White Blood Count 7.7 X10*3/uL (4.8-10.8)
[2022-11-12 12:25] LABS: Platelet Count 80 X10*3/uL (160-400)
[2022-11-12 12:31] LABS: Alanine Aminotransferase 263 U/L (0-40); Albumin Level 3.9 g/dL (3.5-5.0); Alkaline Phosphatase 258 U/L (39-117); Anion Gap 11 (12-20); Aspartate Amino Transferase 61 U/L (5-37); Bilirubin Direct 4.5 mg/dL (0.0-0.5); Bilirubin Total 5.7 mg/dL (0.0-1.0); Blood Urea Nitrogen 31 mg/dL (9-16); Calcium 9.2 mg/dL (8.4-10.2); Carbon Dioxide 23 mmol/L (22-29); Chloride 105 mmol/L (96-108); Creatinine Clr Calc Pharmacy 56.6; Estimated Glomerular Filt Rate 46; Glucose Random 244 mg/dL (60-115); Magnesium 1.8 mg/dL (1.6-2.6); Potassium 4.2 mmol/L (3.3-5.1); Sodium 135 mmol/L (135-145); Total Protein 6.9 g/dL (6.5-8.0)
--- OUTSIDE RECORDS SUMMARY | 2022-11-12 13:40 | XMS_ITS | Continuity of Care Document ---
Author Name Unknown Organization [facility] Address [address] [place] [id number]- Care Team Providers Care Controls Operator Molded Goods Name Role Phone Agustin Mix MD Primary Care Physi cindy Encounter [facility] Date(s): 03/31/19 - 06/22/19 [facility] [address] [place] [id number]- [facility] Attending Physician: Daniel Lovell MD Admitting Physician: Daniel Lovlel MD Referring Physician: Agustin Mix MD Allergies, Adverse Reactions, Alerts Substance Reaction Severity Status NKA Active Medications Bisacodyl = 5 mg, By Mouth, Daily, 0 Refills, Maintenance, 01/29/19 18:05:19 EDT Start Date: 01/29/19 Status: Ordered ertapenem 1 gm injectable powder for injection See Instructions, 1 Gm Intravenoud q 24h 7 days, 0 Refills, Maintenance, 02/03/19 16:47:06 EDT, Powder Start Date: 02/03/19 Status: Ordered insulin glargine 100 units/mL subcutaneous solution 0.2 mL = 20 units, Subcutaneous Injection, Daily at bedtime, 0 Refills, Maintenance, 02/03/19 16:45:30 EDT, Injection Start Date: 02/03/19 Status: Ordered Insulin Lispro 3-15 units, Subcutaneous Injection, 3 times a day before meals, See Order Comments for Sliding Scale Comments., 0 Refills, Maintenance, 02/03/19 16:45:32 EDT, Injection Start Date: 02/03/19 Status: Ordered lactulose 10 gm/15 ml oral syrup 30 mL = 20 Gm, By Mouth, 3 times a day, # 480 mL, 0 Refills, Maintenance, 01/29/19 18:05:54 EDT, Syrup Start Date: 01/29/19 Status: Ordered Lasix Inj 4 mL = 40 mg, IV Push Slowly, 2 times a day, 0 Refills, Maintenance, 02/03/19 16:45:05 EDT, Injection Start Date: 02/03/19 Status: Ordered magnesium oxide 400 mg (240 mg elemental magnesium) oral tablet 1 tablet = 400 mg, By Mouth, Daily, # 100 tablet, 0 Refills, Maintenance, 01/29/19 18:06:12 EDT, Tablet Start Date: 01/29/19 Status: Ordered Melatonin = 5 mg, Daily at bedtime, 0 Refills, Maintenance, 01/29/19 18:06:24 EDT Start Date: 01/29/19 Status: Ordered MorPHINE Inj = 1 mg, IV Push Slowly, Every 4 hours, PRN Pain , Moderate, 0 Refills, Maintenance, 02/03/19 16:45:34 EDT, Injection, Partial fill upon patient request Start Date: 02/03/19 Status: Ordered Omeprazole = 20 mg, By Mouth, Daily, 0 Refills, Maintenance, 01/29/19 18:03:38 EDT Start Date: 01/29/19 Status: Ordered spironolactone 50 mg oral tablet 1 tablet = 50 mg, By Mouth, Daily, # 30 tablet, 0 Refills, Maintenance, 01/29/19 18:03:53 EDT, Tablet Start Date: 01/29/19 Status: Ordered Vitamin D3 oral tablet 1 tablet = 400 International_Units, By Mouth, Daily, # 30 tablet, 0 Refills, Maintenance, 01/29/19 18:04:06 EDT, Tablet Start Date: 01/29/19 Status: Ordered vitamin E 400 iu oral capsule 1 capsule = 400 International_Units, By Mouth, Daily, # 100 capsule, 0 Refills, Maintenance, 01/29/19 18:04:28 EDT, Capsule Start Date: 01/29/19 Status: Ordered Xifaxan 550 mg oral tablet 1 tablet = 550 mg, By Mouth, 2 times a day, # 60 tablet, 0 Refills, Maintenance, 01/29/19 18:04:40 EDT, Tablet Start Date: 01/29/19 Status: Ordered
--- OUTSIDE RECORDS SUMMARY | 2022-11-12 13:40 | XMS_ITS | Continuity of Care Document ---
Author Name Unknown Organization [facility] Address [address] [place] [address]- Care Team Providers Care Semiconductor Engineer Name Role Phone Maria Del Rosario LONG, Agustin Moran Primary Care Physi cindy Encounter [facility] ACCT R [id number] Date(s): 08/08/22 - 10/09/22 [facility] [address] [place] [id number] [[email or web address]] Attending Physician: Mariola Staples MD Admitting Physician: Mariola Staples MD Allergies, Adverse Reactions, Alerts No Known Allergies Medications cholecalciferol 2000 intl units oral tablet TOME OLINDA TABLETA TODOS LOS D Start Date: 07/30/21 Status: Ordered Daily Stacy oral tablet TOME OLINDA TABLETA TODOS LOS D Start Date: 07/30/21 Status: Ordered Freestyle savana 2 [place] Freestyle savana 2 [place], See Instructions, # 1 pack/packet, Refills 0, Tot. Refills 0, Maintenance, Freestyle savana 2 reader, 07/30/21 11:18:00 EDT, Please dispense freestyle savana 2 reader ., Supply, 170.18, cm, 07/30/21 10:34:00 EDT, Height Start Date: 07/30/21 Status: Ordered Freestyle savana 2 sensors Freestyle savana 2 sensors, See Instructions, # 2 each, Refills 11, Tot. Refills 11, Maintenance, use to monitor blood glucose levels. change every 14 days Dx E11.9, 08/22/22 9:42:00 EDT, Supply, 170.18, cm, 01/06/22 10:56:00 EDT, Height Start Date: 08/22/22 Status: Ordered gabapentin 300 mg oral capsule TAKE 1 CAPSULE BY MOUTH IN THE MORNING AND NOON AND 2 CAPSULES AT BEDTIME Start Date: 07/30/21 Status: Ordered Lantus Solostar Pen 100 units/mL subcutaneous solution = 20 units, Subcutaneous Injection, Daily at bedtime, e11.65, # 15 mL, 10 Refills, Maintenance, 01/31/22 11:56:00 EDT, [id number], Partial fill upon patient request if the prescription is fora schedule II opioid drug., 170.18, cm, 01/06/22 10... Start Date: 01/31/22 Stop Date: 12/27/22 Status: Ordered Melatonin = 5 mg, Daily at bedtime, 0 Refills, Maintenance, 01/29/19 18:06:24 EDT Start Date: 01/29/19 Status: Ordered NovoLOG FlexPen 100 units/mL subcutaneous solution See Instructions, e11.65, insulin sliding scale uo to 60 units a day, # 30 mL, 6 Refills, Maintenance, 04/17/22 14:49:00 EST, Solution, [id number], Partial fill upon patient request if the prescription is for a schedule II opioid drug., 170.18... Start Date: 04/17/22 Status: Ordered Omeprazole = 20 mg, By Mouth, Daily, 0 Refills, Maintenance, 01/29/19 18:03:38 EDT Start Date: 01/29/19 Status: Ordered omeprazole 20 mg oral enteric coated capsule DAVID DOMINGUEZDOKatiana LOS D ANTES COMER Start Date: 07/30/21 Status: Ordered omeprazole 20 mg oral enteric coated capsule 1 capsule = 20 mg, By Mouth, Daily, # 30 capsule, 0 Refills, Maintenance, 07/30/21 11:07:00 EDT, ECCapsule, Partial fill upon patient request if the prescription is for a schedule II opioid drug. Start Date: 07/30/21 Status: Ordered spironolactone 50 mg oral tablet 1 tablet = 50 mg, By Mouth, Daily, # 30 tablet, 0 Refills, Maintenance, 01/29/19 18:03:53 EDT, Tablet Start Date: 01/29/19 Status: Ordered tacrolimus 1 mg oral capsule TAKE 3 CAPSULES (3 MG TOTAL) BY MOUTH 2 TIMES A DAY IN THE MORNING AND IN THE EVENING. Start Date: 07/30/21 Status: Ordered traMADol 50 mg oral tablet 1 tablet = 50 mg, By Mouth, Every 12 hours, PRN as needed for pain, 0 Refills, Maintenance, 07/30/21 11:06:00 EDT, Tablet, Partial fill upon patient request if the prescription is for a schedule II opioid drug. Start Date: 07/30/21 Status: Ordered zolpidem 10 mg oral tablet TOME OLINDA TABLETA TODOS LOS D AL ACOSTARSE CUANDO SEA NECESARIO Start Date: 07/30/21 Status: Ordered Problem List Condition Confirmation Course Effective Dates Status Health St atus Informant Obese class I Confirmed Active Patient Care team information Care Team Personnel Name: Crystal DARDEN, Lorraine Position: [facility] RN Member Role: Primary Care Nurse Name: Maria Del Rosario LONG, Agustin Moran Position: [facility] Outreach Member Role: PCP Address: Address: [address] [place] [address]- Name: Aleyda Arias RN Position: S RN Member Role: Primary Care Nurse Address: Address: [address] [place] [address]- Name: Radha Lacy RN Position: [facility] SN RN Member Role: Primary Care Nurse Care Team Related Persons Name: BRETT ALLEN Address: home [address] [address] Name: ANIBAL LUONG Address: home [address] [place] [address]
--- OUTSIDE RECORDS SUMMARY | 2022-11-12 13:40 | XMS_ITS | Continuity of Care Document ---
Author Name Unknown Organization [facility]inolo [facility] Diabetes Address [address] [place] [address]- Care Team Providers Care Grey Goods Examiner Name Role Phone Maria Del Rosario LONG, Agustin Moran Primary Care Physi cindy En[place] [facility] Date(s): 04/17/22 - 05/17/22 [facility] [address] [place] [id number] Allergies, Adverse Reactions, Alerts No Known Allergies Medications cholecalciferol 2000 intl units oral tablet TOME OLINDA TABLETA TODOS LOS D Start Date: 07/30/21 Status: Ordered Daily Stacy oral tablet TOME OLINDA TABLETA TODOS LOS D Start Date: 07/30/21 Status: Ordered Freestyle 2 savana sensors to change every 14 days , 30 days supply Freestyle 2 savana sensors to change every 14 days , 30 days supply, See Instructions, # 2 pack/packet, Refills 6, Tot. Refills 6, Maintenance, 30 days supply for freestyle savana 2 sensors to change every 14 days Dx E11.9, 01/07/22 15:57:00 EDT, Sup... Start Date: 01/07/22 Status: Ordered Freestyle savana 2 [place] Freestyle savana 2 [place], See Instructions, # 1 pack/packet, Refills 0, Tot. Refills 0, Maintenance, Freestyle savana 2 reader, 07/30/21 11:18:00 EDT, Please dispense freestyle savana 2 reader ., Supply, 170.18, cm, 07/30/21 10:34:00 EDT, Height Start Date: 07/30/21 Status: Ordered gabapentin 300 mg oral capsule TAKE 1 CAPSULE BY MOUTH IN THE MORNING AND NOON AND 2 CAPSULES AT BEDTIME Start Date: 07/30/21 Status: Ordered Lantus Solostar Pen 100 units/mL subcutaneous solution = 20 units, Subcutaneous Injection, Daily at bedtime, e11.65, # 15 mL, 10 Refills, Maintenance, 01/31/22 11:56:00 EDT, [facility]/pharmacy #[id number], Partial fill upon patient request if [...] 20 mg oral enteric coated capsule DAVID Iniguez ANTES COMER Start Date: 07/30/21 Status: Ordered [...] Care team information Care Team Personnel Name: Lorraine Rojas RN Position: S RN Member Role: Primary Care Nurse Name: Maria Del Rosario LONG, Agustin Moran Position: [facility] Outreach Member Role: PCP Address: Address: [address] [place], [place] - Name: Sandra Marti RN Position: S RN Member Role: Primary Care Nurse Name: Aleyda Arias RN Position: S RN Member Role: Primary Care Nurse Address: Address: [address] [place] [address]- [place] Name: Radha Lacy RN Position: [facility] SN RN Member Role: Primary Care Nurse Care Team Related Persons Name: BRETT ALLEN Address: home [address] Name: ANIBAL LUONG Address: home [address] [place], [place]
--- OUTSIDE RECORDS SUMMARY | 2022-11-12 13:40 | XMS_ITS | Continuity of Care Document ---
Author Name Unknown Organization [facility] Endocrinolo gy [facility] Diabetes Address [address] [place] [address]- Care Team Providers Care Industrial Organization Manager Name Role Phone Maria Del Rosario LONG, Agustin Moran Primary Care Physi cindy Encounter [facility] Date(s): 09/25/22 - 10/25/22 [facility] Endocr[facility] Diabetes [address] [place] [id number] Attending Physician: AdmMaritza knapp Admitting Physician: Admtr, Ar8 Referring Physician: Admtr, Ar8 Allergies, Adverse Reactions, Alerts No Known Allergies Medications cholecalciferol 2000 intl units oral tablet TOME OLINDA TABLETA TODOS LOS D Start Date: 07/30/21 Status: Ordered Daily Stacy oral tablet TOME OLINDA TABLETA TODOS LOS D Start Date: 07/30/21 Status: Ordered Freestyle savana 2 [place] Freestyle savana 2 [place], See Instructions, # 1 pack/packet, Refills 0, [...] mL, 10 Refills, Maintenance, 01/31/22 11:56:00 EDT, [id number], Partial fill upon patient request [...] 6 Refills, Maintenance, 04/17/22 14:49:00 EST, Solution, [facility]/pharmacy #[id number], Partial fill upon patient request if the prescription is for a schedule II opioid drug., 170.18... Start Date: 04/17/22 Status: Ordered Omeprazole = 20 mg, By Mouth, Daily, 0 Refills, Maintenance, 01/29/19 18:03:38 EDT Start Date: 01/29/19 Status: Ordered omeprazole 20 mg oral enteric coated capsule DAVID LUNDY D ANTES COMER Start Date: 07/30/21 Status: [...] atus Informant Obese class I Confirmed Active Laboratory * Event Display: Non Lab Results Authored Date: Patient Care team information Care Team Personnel Name: Lorraine Rojas RN Position: S RN Member Role: Primary Care Nurse Name: Maria Del Rosario LONG, Agustin Moran Position: [facility] Outreach Member Role: PCP Address: Address: [address] [place] [address]- Name: Aleyda Arias RN Position: S RN Member Role: Primary Care Nurse Address: Address: [address] [place] [address]- [place] Name: Radha Lacy RN Position: [facility] SN RN Member Role: Primary Care Nurse Care Team Related Persons Name: BRETT ALLEN Address: home [address] [address] Name: ANIBAL LUONG Address: home [address] [place] [address]
--- OUTSIDE RECORDS SUMMARY | 2022-11-12 13:40 | XMS_ITS | Continuity of Care Document ---
Author Name Unknown Organization [facility] Endocrinolo gy and Diabetes Address [address] [place] [address]- Care Team Providers Care Cup Setter Lockstitch Name Role Phone Maria Del Rosario LONG, Agustin Moran Primary Care Physi cindy Encounter [facility] Date(s): 04/08/22 - 05/08/22 [facility] Endocrinology and Diabetes [address] [place] [id number] Allergies, Adverse Reactions, Alerts No Known [...] Date: 01/07/22 Status: Ordered Freestyle savana 2 [place] Freestyle savana 2 [place], See Instructions, # 1 pack/packet, Refills 0, Tot. Refills 0, Maintenance, Freestyle savana 2 reader, 07/30/21 11:18:00 EDT, Please dispense freestyle asvana 2 reader ., Supply, 170.18, cm, 07/30/21 [...] mL, 10 Refills, Maintenance, 01/31/22 11:56:00 EDT, [facility]/pharmacy #[id number], Partial fill upon [...] Maria Del Rosario LONG, Agustin Moran Position: [facility] Outreach Member Role: PCP Address: Address: [address] [place], [place] - Name: Sandra Marti RN Position: S RN Member Role: Primary Care Nurse Name: Aleyda Arias RN Position: S RN Member Role: Primary Care Nurse Address: Address: [address] [place] [address]- [place] Name: Radha Lacy RN Position: [facility] SN RN Member Role: Primary Care Nurse Care Team Related Persons Name: BRETT ALLEN Address: home [address] Name: ANIBAL LUONG Address: home [address] [place], [place]
--- OUTSIDE RECORDS SUMMARY | 2022-11-12 13:40 | XMS_ITS | Continuity of Care Document ---
Author Name Unknown Organization [facility] Endocrinolo gy [facility] Diabetes Address [address] [place] [address]- Care Team Providers Care Manager Switch Name Role Phone Maria Del Rosario LONG, Agustin Moran Primary Care Physi cindy Encounter [facility] Date(s): 01/07/22 - 02/06/22 [facility] Diabetes [address] [place] [id number] Allergies, Adverse Reactions, Alerts No Known Allergies [...] Date: 01/07/22 Status: Ordered Freestyle savana 2 [place] Freestyle savana 2 [place], See Instructions, # 1 pack/packet, Refills 0, Tot. Refills 0, Maintenance, Freestyle savana 2 reader, 07/30/21 11:18:00 EDT, Please dispense freestyle savana 2 reader ., Supply, 170.18, cm, 07/30/21 10:34:00 EDT, Height Start Date: 07/30/21 Status: Ordered gabapentin 300 mg oral capsule TAKE 1 CAPSULE BY MOUTH IN THE MORNING AND NOON AND 2 CAPSULES AT BEDTIME Start Date: 07/30/21 Status: Ordered Insulin Lispro 3-15 units, Subcutaneous Injection, 3 times a day before meals, See Order Comments for Sliding Scale Comments., 0 Refills, Maintenance, 02/03/19 16:45:32 EDT, Injection Start Date: 02/03/19 Status: Ordered Insulin Syringe, BD Ultra-Fine 0.3 cc 31 G x 8 mm (5/16in) See Instructions, # 100 each, Refills 2, Tot. Refills 2, Acute 05/03/22 11:59:00 EST, e11.65, use to inject insulin 3 times a day, for use with insulin vials when pens are not available, 01/31/22 11:56:00 EDT, Supply, 170.18, cm, 01/06/22 10:56:00 EDT... Start Date: 01/31/22 Stop Date: 05/03/22 Status: Ordered Lantus Solostar Pen 100 units/mL [...] FlexPen 100 units/mL subcutaneous solution See Instructions, insulin sliding scale uo to 60 units a day, # 30 mL, 6 Refills, Maintenance, 07/30/21 11:16:00 EDT, Solution, [facility]/pharmacy #[id number], Partial fill upon patient request if the prescription is for a schedule II opioid drug., 170.18, cm, 04... Start Date: 07/30/21 Status: Ordered Omeprazole = 20 mg, By [...] I Confirmed Active Patient Care team information Personnel Name: Maria Del Rosario LONG, Agustin Moran Address: Address: [address] [place] [id number]
--- OUTSIDE RECORDS SUMMARY | 2022-11-12 13:40 | XMS_ITS | Continuity of Care Document ---
Author Name Unknown Organization [facility] Endocrinolo gy and Diabetes Address [address] [place] [address]- Care Team Providers Care Coin Counter And Wrapper Name Role Phone Maria Del Rosario LONG, Agustin Moran Primary Care Physi cindy Encounter [facility] Date(s): 08/22/22 - 09/21/22 [facility] Endocrinology and Diabetes [address] [place] [id number] Allergies, Adverse Reactions, Alerts No Known Allergies Medications cholecalciferol 2000 intl units oral tablet TOME OLINDA TABLETA TODOS LOS D Start Date: 07/30/21 Status: Ordered Daily Stacy oral tablet TOME OLINDA TABLETA TODOS LOS D Start Date: 07/30/21 Status: Ordered Freestyle savana 2 [place] Freestyle savana 2 [place], See Instructions, # 1 pack/packet, Refills 0, [...] mL, 10 Refills, Maintenance, 01/31/22 11:56:00 EDT, [facility]/pharmacy #[id number], Partial fill upon patient request if [...] 6 Refills, Maintenance, 04/17/22 14:49:00 EST, Solution, [facility]/pharmacy #[id number], Partial fill upon patient request if [...] Team Personnel Name: Crystal DARDEN, Lorraine Position: [facility] RN Member Role: Primary Care Nurse Name: Maria Del Rosario LONG, Agustin Moran Position: [facility] Outreach Member Role: PCP Address: Address: [address] [place] [address]- Name: Aleyda Arias RN Position: [facility] RN Member Role: Primary Care Nurse Address: Address: [address] [place] [address]- Name: Radha Lacy RN Position: [facility] RN Member Role: Primary Care Nurse Care Team Related Persons Name: BRETT ALLEN Address: home [address] [address] Name: ANIBAL LUONG Address: home [address] [place] [address]
--- OUTSIDE RECORDS SUMMARY | 2022-11-12 13:40 | XMS_ITS | Continuity of Care Document ---
Author Name Unknown Organization [facility] Endocrinolo gy and Diabetes Address [address] [place] [address]- Care Team Providers Care Quenching Car Operator Name Role Phone Agustin Mix MD Primary Care Physi cindy Encounter [facility] Date(s): 12/14/20 - 03/09/21 [facility] Endocrinology [facility] Diabetes [address] [place] [id number] Attending Physician: Susanne Reddy MD Admitting Physician: Susanne Reddy MD Referring Physician: Agustin Mix MD Allergies, [...]
--- OUTSIDE RECORDS SUMMARY | 2022-11-12 13:40 | XMS_ITS | Continuity of Care Document ---
Author Name Unknown Organization [facility] Endocrinolo gy and Diabetes Address [address] [place] [address]- Care Team Providers Care Mixing Picker Tender Name Role Phone Maria Del Rosario LONG, Agustin Moran Primary Care Physi cindy Encounter [facility] Date(s): 04/17/22 - 05/17/22 [facility]ocrinology [facility] Diabetes [address] [place] [id number] Allergies, Adverse Reactions, Alerts No Known Allergies [...] Date: 01/07/22 Status: Ordered Freestyle savana 2 [place] Freestyle savana 2 [place], See Instructions, # 1 pack/packet, Refills 0, [...] mL, 10 Refills, Maintenance, 01/31/22 11:56:00 EDT, [facility]/pharmacy #[id number], Partial fill upon patient request [...] Maria Del Rosario LONG, Agustin Moran Position: [facility] Outreach Member Role: PCP Address: Address: [address] [place], [place] - Name: Sandra Marti RN Position: S RN Member Role: Primary Care Nurse Name: Aleyda Arias RN Position: S RN Member Role: Primary Care Nurse Address: Address: [address] [place] [address]- [place] Name: Radha Lacy RN Position: [facility] SN RN Member Role: Primary Care Nurse Care Team Related Persons Name: BRETT ALLEN Address: home [address] Name: ANIBAL LUONG Address: home [address] [place], [place]
--- OUTSIDE RECORDS SUMMARY | 2022-11-12 13:40 | XMS_ITS | Continuity of Care Document ---
Author Name Unknown Organization [facility] Endocrinolo gy and Diabetes Address [address] [place] [address]- Care Team Providers Care Forger Helper Name Role Phone Maria Del Rosario LONG, Agustin oMran Primary Care Physi cindy Encounter [facility] Date(s): 02/07/21 - 03/09/21 [facility] Endocrinology and Diabetes [address] [place] [id number] Attending Physician: Maritza Carreon Admitting Physician: Admtr, Maritza Referring Physician: Admtr, Ar8 Allergies, Adverse Reactions, Alerts Substance Reaction Severity [...]
--- OUTSIDE RECORDS SUMMARY | 2022-11-12 13:40 | XMS_ITS | Continuity of Care Document ---
Author Name Unknown Organization [facility] Address [address] [place] [address]- Care Team Providers Care Ferris Wheel Operator Name Role Phone Maria Del Rosario LONG, Agustin Moran Primary Care Physi cindy Encounter [facility] Date(s): 05/23/19 - 06/02/19 [facility] [address] [place] [address] [facility] Attending Physician: Maritza Carreon Admitting Physician: Maritza Carreon Referring Physician: AdmtrMaritza Allergies, Adverse Reactions, Alerts Substance Reaction Severity [...]
--- OUTSIDE RECORDS SUMMARY | 2022-11-12 13:41 | XMS_ITS | Continuity of Care Document ---
Author Name Unknown Organization [facility] Endocrinolo gy and Diabetes Address [address] [place] [address]- Care Team Providers Care Hog Man Name Role Phone Maria Del Rosario LONG, Agustin Moran Primary Care Physi cindy Encounter [facility] Date(s): 01/31/22 - 03/02/22 [facility] Diabetes [address] [place] [id number] Allergies, Adverse Reactions, Alerts No Known [...] Date: 01/07/22 Status: Ordered Freestyle savana 2 [place] Freestyle savana 2 [place], See Instructions, # 1 pack/packet, Refills 0, [...] 6 Refills, Maintenance, 07/30/21 11:16:00 EDT, Solution, [id number], Partial fill upon patient [...] RN Member Role: Primary Care Nurse Name: Agustin Mix MD Position: [facility] Outreach Member Role: PCP Address: Address: [address] [place] [address]- [place] Name: Sandra Marti RN Position: S RN Member Role: Primary Care Nurse Name: Aleyda Arias RN Position: S RN Member Role: Primary Care Nurse Address: Address: [address] [place] [address]- [place] Name: Radha Lacy RN Position: [facility] SN RN Member Role: Primary Care Nurse Care Team Related Persons Name: BRETT ALLEN Address: home [address] [address] Name: ANIBAL LUONG Address: home [address] [place] [address]
--- OUTSIDE RECORDS SUMMARY | 2022-11-12 13:41 | XMS_ITS | Continuity of Care Document ---
Author Name Unknown Organization [facility] Endocrinolo gy [facility] Diabetes Address [address] [place] [address]- Care Team Providers Care Rail Detector Car Operator Name Role Phone Maria Del Rosario LONG, Agustin Moran Primary Care Physi cindy Encounter [facility] Date(s): 01/06/22 - 02/05/22 [facility]ology [facility] Diabetes [address] [place] [id number] Attending Physician: Admtr, Ron8 Admitting Physician: Admtr, Ar8 Referring Physician: Admtr, [...] Date: 01/07/22 Status: Ordered Freestyle savana 2 [place] Freestyle savana 2 [place], See Instructions, # 1 pack/packet, Refills 0, [...] omeprazole 20 mg oral enteric coated capsule TOME OLINDA C INGEULA TOMOORE D ANTES COMER Start Date: 07/30/21 Status: [...] 10 mg oral tablet TOME OLINDA TABLETA TOMOORE D AL ACOSTARSE CUANDO SEA NECESARIO Start Date: 07/30/21 Status: Ordered Problem List Condition Confirmation Course Effective Dates Status Health St atus Informant Obese class I Confirmed Active Patient Care team information Personnel Name: Maria Del Rosario LONG, Agustin Moran Address: Address: [address] [place] [address]
--- OUTSIDE RECORDS SUMMARY | 2022-11-12 13:41 | XMS_ITS | Continuity of Care Document ---
Author Name Unknown Organization [facility] Endocrinolo gy and Diabetes Address [address] [place] [address]- Care Team Providers Care Gis Analyst Developer Name Role Phone Maria Del Rosario LONG, Agustin Moran Primary Care Physi cindy Encounter [facility] Date(s): 07/30/21 - 08/29/21 [facility] Endocrinology and Diabetes [address] [place] [id number] Attending Physician: AdmRon [id number] Admitting Physician: Admtr, Ar8 Referring Physician: Admtr, [...] savana 2 sensors to change every 14 days, 07/30/21 11:17:00 EDT, Supply, 170.18,... Start Date: 07/30/21 Status: Ordered Freestyle savana 2 [place] Freestyle savana 2 [place], See Instructions, # 1 pack/packet, Refills 0, Tot. Refills 0, Maintenance, Freestyle savana 2 reader, 07/30/21 11:18:00 EDT, Please dispense freestyle savana 2 reader ., Supply, 170.18, cm, 07/30/21 10:34:00 EDT, Height Start Date: 07/30/21 Status: Ordered gabapentin 300 mg oral capsule TAKE 1 CAPSULE BY MOUTH IN THE MORNING AND NOON AND 2 CAPSULES AT BEDTIME Start Date: 07/30/21 Status: Ordered insulin glargine 100 units/mL subcutaneous solution 0.2 mL = 20 units, Subcutaneous Injection, Daily at bedtime, 0 Refills, Maintenance, 02/03/19 16:45:30 EDT, Injection Start Date: 02/03/19 Status: Ordered Insulin Lispro 3-15 units, Subcutaneous Injection, 3 times a day before meals, See Order Comments for Sliding Scale Comments., 0 Refills, Maintenance, 02/03/19 16:45:32 EDT, Injection Start Date: 02/03/19 Status: Ordered Melatonin = 5 mg, Daily at bedtime, 0 Refills, Maintenance, 01/29/19 18:06:24 EDT Start Date: 01/29/19 Status: Ordered NovoLOG FlexPen 100 units/mL subcutaneous solution See Instructions, insulin sliding scale uo to 60 units a day, # 30 mL, 6 Refills, Maintenance, 07/30/21 11:16:00 EDT, Solution, [facility]/pharmacy #[id number], Partial fill upon patient request if the prescription is for a schedule II opioid drug., 170.18, cm, 04... Start Date: 07/30/21 Status: Ordered Omeprazole = 20 mg, By Mouth, Daily, 0 Refills, Maintenance, 01/29/19 18:03:38 EDT Start Date: 01/29/19 Status: Ordered omeprazole 20 mg oral enteric coated capsule DAVID FLORES LOS D ANTES COMER Start Date: 07/30/21 [...] Date: 07/30/21 Status: Ordered Problem List Condition Effective Dates Status Health Status Inform ant Obese class I(Confirmed) Active
[2022-11-12 14:32] VITALS: BP 135/73; PULSE 70; RESP 18; TEMP 37.7; O2SAT 97
[2022-11-12 14:55] LABS: Appearance Urine Clear; Color Urine DK YELLOW; Glucose Urine UA 100 mg/dL (Negative); Leukocyte Esterase Urine Negative (Negative); Nitrite Urine Positive (Negative); PH 5.5 (5.0-9.0); Specific Gravity - Urine 1.025 (1.005-1.025); UMIC TRIGGER UACC YES; Urine Blood Trace (Negative); Urine Ketones Trace mg/dL (Negative); Urine Protein 30 (1+) mg/dL (Neg-Trace)
[2022-11-12 15:00] LABS: INTERNATIONAL NORM RATIO 1.3 (0.9-1.1); Prothrombin Time 15.8 SEC (11.1-13.3)
[2022-11-12 15:03] LABS: Partial Thromboplastin Time 31.7 SEC (26.0-36.4)
[2022-11-12 15:09] LABS: C Reactive Protein 14.38 mg/dL (< or = 0.50)
[2022-11-12 15:24] LABS: Other Crystals Urine Present
[2022-11-12 15:24] LABS: Ammonia 26 umol/L (13-55)
[2022-11-12 15:26] LABS: Granular Casts Urine Present; UACC Culture Trigger YES; WBC Urine 0-5 /HPF (0-5)
[2022-11-12 15:27] LABS: Bacteria Urine Trace (None Seen)
[2022-11-12 15:28] LABS: Hyaline Casts Urine 0-2 /LPF (0-2); Squamous Epithelial Cell Urine 0-2 /HPF (0-2)
== END 2022-11-12 16:50 | disposition left against medical advice (07) ==
PROVIDERS: Physician Assistant; Emergency Provider Internal Medicine; PCP Internal Medicine
DX: T86.41 Liver transplant rejection (principal); K72.90 Hepatic failure, unspecified without coma; R10.11 Right upper quadrant pain; E13.9 Other specified diabetes mellitus without complications; Z86.19 Personal history of other infectious and parasitic diseases; Z79.4 Long term (current) use of insulin; Z79.899 Other long term (current) drug therapy
CPT/HCPCS: 36415; 76705; 80048; 80076; 81001; 82140; 83735; 85025; 85610; 85730; 86140; 87086; 93975; 99283; 99284

== ENCOUNTER 2022-11-19 06:56 | Outpatient (REF) | payer OTHER, SELFPAY ==
[2022-11-19 07:24] LABS: MANUAL DIFF FLAG NO
[2022-11-19 08:12] LABS: Basophils Percent Auto 0.5 % (0-2); Eosinophils Absolute Auto 0.1 X10*3/uL (0.0-0.4); Eosinophils Percent Auto 1.3 % (0-4); Hematocrit 33.4 % (42.0-52.0); Hemoglobin 11.4 g/dl (14.0-18.0); Imm Gran Abs Auto 0.05 X10*3/uL (0.00-0.03); Imm Gran Pct Auto 0.9 % (0.0-0.4); Lymphocytes Absolute Auto 1.2 X10*3/uL (1.2-4.9); Lymphocytes Percent Auto 21.4 % (20-40); Mean Corpuscular HGB Conc 34.1 g/dl (31.0-36.0); Mean Corpuscular Hemoglobin 29.5 pg (27.0-33.0); Mean Corpuscular Volume 86.3 fL (80.0-98.0); Monocytes Absolute Auto 0.5 X10*3/uL (0.1-1.2); Monocytes Percent Auto 9.9 % (2-11); Neutrophils Absolute Auto 3.6 x10*3/uL (2.0-8.3); Platelet Count 175 X10*3/uL (160-400); Red Blood Count 3.87 X10*6/uL (4.60-5.80); Red Cell Distribution Width 12.4 % (11.0-16.0); White Blood Count 5.5 X10*3/uL (4.8-10.8)
[2022-11-19 08:36] LABS: Alanine Aminotransferase 330 U/L (0-40); Albumin Level 4.1 g/dL (3.5-5.0); Alkaline Phosphatase 504 U/L (39-117); Anion Gap 15 (12-20); Aspartate Amino Transferase 120 U/L (5-37); Bilirubin Total 1.7 mg/dL (0.0-1.0); Blood Urea Nitrogen 22 mg/dL (9-16); Calcium 9.5 mg/dL (8.4-10.2); Carbon Dioxide 23 mmol/L (22-29); Chloride 106 mmol/L (96-108); Estimated Glomerular Filt Rate > 60; Glucose Random 159 mg/dL (60-115); Magnesium 1.7 mg/dL (1.6-2.6); Phosphorus 2.4 mg/dL (2.7-4.5); Potassium 5.1 mmol/L (3.3-5.1); Sodium 139 mmol/L (135-145); Total Protein 7.2 g/dL (6.5-8.0)
[2022-11-20 10:36] LABS: Tacrolimus Prograf 5.8 NG/ML ((5-20))
== END 2022-11-19 06:57 | disposition home or self-care (01) ==
LOC: HO.LABR 06:56
PROVIDERS: PCP Internal Medicine; Visit Provider Internal Medicine
DX: Z94.4 Liver transplant status (principal); Z79.899 Other long term (current) drug therapy
CPT/HCPCS: 36415; 80053; 80197; 83735; 84100; 85025

== ENCOUNTER 2022-12-04 15:50 | Outpatient (REF) | payer OTHER, SELFPAY ==
--- NOTE | ~2022-12-04 | US_ITS ---
EXAMINATION: US CHEST CLINICAL INFORMATION: Mass left right back COMPARISON: Previous chest CT November 2021 TECHNIQUE: Grayscale and color imaging of the posterior chest wall using a linear transducer was performed. Patient indicated abnormality was in the right posterior back, not the left posterior back. Additional contralateral imaging of the left side of the back was performed for comparison. FINDINGS: No abnormality is seen by ultrasound. No soft tissue mass or fluid collection is seen. US/US chest IMPRESSION: No abnormality seen by ultrasound.
== END 2022-12-04 15:51 | disposition home or self-care (01) ==
LOC: HO.US 15:50
PROVIDERS: PCP Internal Medicine; Visit Provider Internal Medicine
DX: R22.2 Localized swelling, mass and lump, trunk (principal)
CPT/HCPCS: 76604

== ENCOUNTER 2022-12-05 09:02 | Outpatient (REF) | payer OTHER, SELFPAY ==
[2022-12-05 10:33] LABS: Alanine Aminotransferase 127 U/L (0-40); Alkaline Phosphatase 373 U/L (39-117); Aspartate Amino Transferase 66 U/L (5-37); Bilirubin Direct 0.6 mg/dL (0.0-0.5); Total Protein 6.6 g/dL (6.5-8.0)
== END 2022-12-05 09:03 | disposition home or self-care (01) ==
LOC: HO.LAB 09:02
PROVIDERS: PCP Internal Medicine; Visit Provider Internal Medicine
DX: Z94.4 Liver transplant status (principal)
CPT/HCPCS: 36415; 80076

== ENCOUNTER 2022-12-16 07:46 | Outpatient (REF) | payer OTHER, SELFPAY ==
--- NOTE | ~2022-12-16 | CT_ITS ---
EXAMINATION: CT CHEST WITHOUT CONTRAST CLINICAL INFORMATION: Other nonspecific finding of lung field COMPARISON: Previous chest CT most recent November 2021 TECHNIQUE: Multidetector volumetric CT imaging of the chest was done. Axial MIP volume rendering provided. Sagittal and coronal reformatted images were obtained. This CT examination was performed using dose optimization techniques as appropriate, variously including the following: *Automated exposure control *Adjustment of mA and/or kV according to patient size (this includes techniques or standardized protocols for targeted exams where dose is matched to indication/reason for exam; i.e. extremities or head) *Use of iterative reconstruction technique DLP: mGy-cm FINDINGS: PLUSH WEAVER: LUNGS: Small pulmonary nodules are stable from most recent chest CT November 2023. Largest pulmonary nodule measures 5 mm in the right middle lobe axial image 339 series 5. No new pulmonary nodule. MEDIASTINUM: The mediastinum is normal. CORONARY ARTERY CALCIFICATION: Moderate PLEURA: There is no pleural effusion. No pleural mass or thickening. AXILLA: Bilateral gynecomastia. No enlarged axillary lymph nodes. UPPER ABDOMEN: Surgical clips adjacent to the liver suggestive of previous liver transplant. Pneumobilia and stent in the common bile duct. OSSEOUS STRUCTURES: Old right rib fractures.. Nonspecific sclerotic lesion in the left anterior lateral ninth rib. This is stable from prior exam. CT/CT chest wo IV con IMPRESSION: Stable small pulmonary nodules from most recent chest CT November 2021. No additional chest CT follow-up recommended as per Fleischner 2017 criteria. Bilateral gynecomastia. Probable liver transplant. New stent in the common bile duct and pneumobilia. Fleischner guidelines were followed.
== END 2022-12-16 07:47 | disposition home or self-care (01) ==
LOC: HO.CT 07:46
PROVIDERS: Absent Provider Internal Medicine; PCP Internal Medicine; Visit Provider Internal Medicine Pulmonary Disease
DX: R91.8 Other nonspecific abnormal finding of lung field (principal)
CPT/HCPCS: 71250

== ENCOUNTER 2022-12-17 06:48 | Outpatient (REF) | payer OTHER, SELFPAY ==
[2022-12-17 06:59] LABS: MANUAL DIFF FLAG NO
[2022-12-17 07:34] LABS: Basophils Percent Auto 0.9 % (0-2); Eosinophils Absolute Auto 0.1 X10*3/uL (0.0-0.4); Hematocrit 36.7 % (42.0-52.0); Hemoglobin 12.7 g/dl (14.0-18.0); Imm Gran Abs Auto 0.01 X10*3/uL (0.00-0.03); Imm Gran Pct Auto 0.2 % (0.0-0.4); Lymphocytes Absolute Auto 1.7 X10*3/uL (1.2-4.9); Lymphocytes Percent Auto 39.1 % (20-40); Mean Corpuscular HGB Conc 34.6 g/dl (31.0-36.0); Mean Corpuscular Hemoglobin 29.6 pg (27.0-33.0); Mean Corpuscular Volume 85.5 fL (80.0-98.0); Mean Platelet Volume 11.5 fL (9.4-12.4); Monocytes Absolute Auto 0.5 X10*3/uL (0.1-1.2); Monocytes Percent Auto 11.7 % (2-11); Neutrophils Absolute Auto 2.1 x10*3/uL (2.0-8.3); Neutrophils Percent Auto 46.1 % (45-73); Platelet Count 115 X10*3/uL (160-400); Red Blood Count 4.29 X10*6/uL (4.60-5.80); Red Cell Distribution Width 13.4 % (11.0-16.0); White Blood Count 4.5 X10*3/uL (4.8-10.8)
[2022-12-17 07:41] LABS: Alanine Aminotransferase 82 U/L (0-40); Albumin Level 4.4 g/dL (3.5-5.0); Alkaline Phosphatase 269 U/L (39-117); Anion Gap 11 (12-20); Aspartate Amino Transferase 45 U/L (5-37); Blood Urea Nitrogen 21 mg/dL (9-16); Calcium 10.3 mg/dL (8.4-10.2); Carbon Dioxide 24 mmol/L (22-29); Chloride 108 mmol/L (96-108); Estimated Glomerular Filt Rate > 60; Glucose Random 189 mg/dL (60-115); Magnesium 1.6 mg/dL (1.6-2.6); Potassium 5.7 mmol/L (3.3-5.1); Sodium 137 mmol/L (135-145); Total Protein 7.1 g/dL (6.5-8.0)
[2022-12-18 08:55] LABS: Tacrolimus Prograf 6.4 NG/ML ((5-20))
== END 2022-12-17 06:49 | disposition home or self-care (01) ==
LOC: HO.LABR 06:48
PROVIDERS: PCP Internal Medicine; Visit Provider Internal Medicine
DX: D84.9 Immunodeficiency, unspecified (principal); Z94.4 Liver transplant status
CPT/HCPCS: 36415; 80053; 80197; 83735; 85025

== ENCOUNTER 2022-12-23 06:28 | Outpatient (REF) | payer OTHER, SELFPAY ==
[2022-12-23 06:37] LABS: MANUAL DIFF FLAG NO
[2022-12-23 07:53] LABS: Basophils Percent Auto 0.8 % (0-2); Eosinophils Absolute Auto 0.1 X10*3/uL (0.0-0.4); Eosinophils Percent Auto 1.3 % (0-4); Hematocrit 36.8 % (42.0-52.0); Imm Gran Abs Auto 0.01 X10*3/uL (0.00-0.03); Imm Gran Pct Auto 0.2 % (0.0-0.4); Lymphocytes Percent Auto 38.1 % (20-40); Mean Corpuscular HGB Conc 35.3 g/dl (31.0-36.0); Mean Corpuscular Hemoglobin 29.7 pg (27.0-33.0); Mean Platelet Volume 11.9 fL (9.4-12.4); Monocytes Absolute Auto 0.6 X10*3/uL (0.1-1.2); Monocytes Percent Auto 10.4 % (2-11); Neutrophils Absolute Auto 2.6 x10*3/uL (2.0-8.3); Neutrophils Percent Auto 49.2 % (45-73); Platelet Count 115 X10*3/uL (160-400); Red Blood Count 4.38 X10*6/uL (4.60-5.80); Red Cell Distribution Width 13.3 % (11.0-16.0); White Blood Count 5.3 X10*3/uL (4.8-10.8)
[2022-12-23 08:16] LABS: Alanine Aminotransferase 78 U/L (0-40); Albumin Level 4.5 g/dL (3.5-5.0); Alkaline Phosphatase 268 U/L (39-117); Anion Gap 10 (12-20); Aspartate Amino Transferase 49 U/L (5-37); Blood Urea Nitrogen 19 mg/dL (9-16); Calcium 10.2 mg/dL (8.4-10.2); Carbon Dioxide 23 mmol/L (22-29); Chloride 110 mmol/L (96-108); Estimated Glomerular Filt Rate 59; Glucose Random 172 mg/dL (60-115); Magnesium 1.5 mg/dL (1.6-2.6); Potassium 4.5 mmol/L (3.3-5.1); Sodium 138 mmol/L (135-145); Total Protein 7.4 g/dL (6.5-8.0)
[2022-12-24 10:33] LABS: Tacrolimus Prograf 4.6 NG/ML ((5-20))
== END 2022-12-23 06:29 | disposition home or self-care (01) ==
LOC: HO.LABR 06:28
PROVIDERS: PCP Internal Medicine; Visit Provider Internal Medicine
DX: D84.9 Immunodeficiency, unspecified (principal); Z94.4 Liver transplant status; Z79.899 Other long term (current) drug therapy
CPT/HCPCS: 36415; 80053; 80197; 83735; 85025

== ENCOUNTER 2022-12-30 10:24 | Outpatient (AMB) | payer OTHER, SELFPAY ==
[2022-12-30 10:27] VITALS: BP 130/82; PULSE 74; O2SAT 98; BMI 31.1
--- NOTE | 2022-12-30 10:27 | A.OFFVIS_ITS ---
Intake Vital Signs 12/30/22 10:27 Height 5 ft 7 in Weight 198 lb 6.656 oz BMI 31.1 BP 130/82 Blood Pressure Location Lt brachial Position Sitting Pulse 74 Pulse Source Doppler Pulse Oximetry (%) 98 Oxygen Delivery Method Room Air Intake Visit Reasons: CT follow up Allergies No Known Allergies [No Known Allergies*] Allergy (Verified 12/30/22 10:31) HPI CT follow up HPI Details 56-year-old gentleman with underlying hi story of liver transplant, prior recurrent chylothorax previously seen at [facility], now followed for incidentally not pulmonary nodules. Patient returns after completing 12 months follow-up CT chest. He denies any pulmonary related concerns or complaints. [facility] Medical History 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, managed as type 2 GERD (gastroesophageal reflux disease) Hx of hepatitis Hx of substance abuse Tubular adenoma of colon Surgical History History of appendectomy History of open reduction and internal fixation (ORIF) procedure Hx of colonoscopy Hx of esophagogastroduodenoscopy S/P liver transplant Social History Household Members: None Alcohol intake: never Patient Tobacco Use Status: Never used Tobacco Current occupational status: disabled Review of Systems Const Denies daytime sleepiness, Denies excessive sweating, Denies fatigue, Denies fever(s), Denies lethargy, Denies malaise, Denies night sweats, Denies snoring and Denies weight loss Eyes Denies blurry vision and Denies itchy eyes ENT Denies nasal congestion, Denies post nasal drip, Denies sinus pain, Denies sinus pressure and Denies other ( Thrush) Card Denies chest pain, Denies pedal edema, Denies dyspnea, Denies orthopnea and Denies paroxysmal nocturnal dyspnea Resp Denies cough, Denies hemoptysis, Denies excessive phlegm production, Denies dyspnea, Denies snoring and Denies wheezing GI Denies abdominal pain and Denies heartburn Musc Denies myalgias, Denies arthralgias and Denies joint swelling Skin/Breast Denies rash Neuro Denies memory loss and Denies seizure-like activity Psych Denies abnormal sleep pattern, Denies anxiety and Denies memory loss Endo Denies excessive sweating, Denies fatigue and Denies heat intolerance Lalo/Lymph Denies easy bruising Aller/Immun Denies itchy eyes, Denies seasonal rhinorrhea and Denies wheezing Physical Exam Vital Signs: Last Vital Signs Pulse 74 12/30/22 10:27 BP 130/82 12/30/22 10:27 Pulse Ox 98 12/30/22 10:27 Oxygen Delivery Method Room Air 12/30/22 10:27 BMI result Body Mass Index 31.1 Const General: no acute distress and alert Nutritional Appearance: not obese Orientation/consciousness: Other orientation findings ( oriented) HEENT Head: Yes atraumatic Eyes General: appearance normal, both eyes and all related structures Sclerae: sclerae normal EOM: EOMs intact bilaterally Neck Neck: Yes supple Lymphatic: no lymphadenopathy noted Resp Effort & Inspection: normal respiratory effort and no use of accessory muscles Auscultation: clear to auscultation bilaterally Cardio Rate: regular rate Rhythm: regular rhythm Heart sounds: no gallops, no murmurs and no rubs Skin General skin exam: other ( warm) Extrem General: No clubbing, No cyanosis and No edema Assessment & Plan Assessment & Plan (1) Pulmonary nodules: Code(s): R91.8 - Other nonspecific abnormal finding of lung field Plan: Small pulmonary nodules stable in [address] follow-up. Will repeat CT chest in 12 months, if added time no changes will be noted, then no further imaging follow-up would be needed. Orders: Orders CT chest wo IV con 11/30/23 R91.8 - Other nonspecific abnormal finding of lung field Coding Level of Care Code Est Pt Level 3 (36959) Diagnoses Pulmonary nodules R91.8
== END 2022-12-30 11:11 | disposition home or self-care (01) ==
PROVIDERS: PCP Internal Medicine; Visit Provider Internal Medicine Pulmonary Disease
DX: R91.8 Other nonspecific abnormal finding of lung field (principal)
CPT/HCPCS: 99213

== ENCOUNTER → 2022-12-30 10:24 | Outpatient (BNVA) | payer OTHER, SELFPAY | PROVIDERS: PCP Internal Medicine; Visit Provider Internal Medicine Pulmonary Disease | DX: R91.8 Other nonspecific abnormal finding of lung field (principal) | CPT/HCPCS: 99212 ==

== ENCOUNTER 2023-01-02 07:01 | Outpatient (REF) | payer OTHER, SELFPAY ==
[2023-01-02 07:18] LABS: MANUAL DIFF FLAG NO
[2023-01-02 08:15] LABS: Basophils Percent Auto 0.8 % (0-2); Eosinophils Absolute Auto 0.2 X10*3/uL (0.0-0.4); Eosinophils Percent Auto 3.4 % (0-4); Hematocrit 36.4 % (42.0-52.0); Hemoglobin 12.9 g/dl (14.0-18.0); Imm Gran Abs Auto 0.02 X10*3/uL (0.00-0.03); Imm Gran Pct Auto 0.4 % (0.0-0.4); Lymphocytes Absolute Auto 1.8 X10*3/uL (1.2-4.9); Lymphocytes Percent Auto 36.3 % (20-40); Mean Corpuscular HGB Conc 35.4 g/dl (31.0-36.0); Mean Corpuscular Hemoglobin 29.9 pg (27.0-33.0); Mean Corpuscular Volume 84.3 fL (80.0-98.0); Mean Platelet Volume 11.4 fL (9.4-12.4); Monocytes Absolute Auto 0.6 X10*3/uL (0.1-1.2); Monocytes Percent Auto 11.5 % (2-11); Neutrophils Absolute Auto 2.4 x10*3/uL (2.0-8.3); Neutrophils Percent Auto 47.6 % (45-73); Platelet Count 118 X10*3/uL (160-400); Red Blood Count 4.32 X10*6/uL (4.60-5.80)
[2023-01-02 08:37] LABS: Alanine Aminotransferase 72 U/L (0-40); Albumin Level 4.3 g/dL (3.5-5.0); Alkaline Phosphatase 257 U/L (39-117); Anion Gap 11 (12-20); Aspartate Amino Transferase 49 U/L (5-37); Bilirubin Total 0.8 mg/dL (0.0-1.0); Blood Urea Nitrogen 16 mg/dL (9-16); Calcium 9.4 mg/dL (8.4-10.2); Carbon Dioxide 24 mmol/L (22-29); Chloride 107 mmol/L (96-108); Estimated Glomerular Filt Rate > 60; Glucose Random 148 mg/dL (60-115); Magnesium 1.6 mg/dL (1.6-2.6); Potassium 4.6 mmol/L (3.3-5.1); Sodium 137 mmol/L (135-145); Total Protein 6.9 g/dL (6.5-8.0)
[2023-01-03 10:31] LABS: Tacrolimus Prograf 4.6 NG/ML ((5-20))
== END 2023-01-02 07:02 | disposition home or self-care (01) ==
LOC: HO.LABR 07:01
PROVIDERS: Visit Provider Internal Medicine
DX: D84.9 Immunodeficiency, unspecified (principal); Z94.4 Liver transplant status
CPT/HCPCS: 36415; 80053; 80197; 83735; 85025

== ENCOUNTER 2023-01-09 06:58 | Outpatient (REF) | payer OTHER, SELFPAY ==
[2023-01-09 07:09] LABS: MANUAL DIFF FLAG NO
[2023-01-09 08:08] LABS: Basophils Absolute Auto 0.1 X10*3/uL (0.0-0.2); Eosinophils Absolute Auto 0.1 X10*3/uL (0.0-0.4); Hematocrit 38.6 % (42.0-52.0); Hemoglobin 13.6 g/dl (14.0-18.0); Imm Gran Abs Auto 0.01 X10*3/uL (0.00-0.03); Imm Gran Pct Auto 0.2 % (0.0-0.4); Lymphocytes Absolute Auto 1.9 X10*3/uL (1.2-4.9); Mean Corpuscular HGB Conc 35.2 g/dl (31.0-36.0); Mean Corpuscular Volume 85.2 fL (80.0-98.0); Mean Platelet Volume 10.8 fL (9.4-12.4); Monocytes Absolute Auto 0.6 X10*3/uL (0.1-1.2); Neutrophils Absolute Auto 2.4 x10*3/uL (2.0-8.3); Neutrophils Percent Auto 47.8 % (45-73); Platelet Count 129 X10*3/uL (160-400); Red Blood Count 4.53 X10*6/uL (4.60-5.80); Red Cell Distribution Width 13.2 % (11.0-16.0)
[2023-01-09 08:37] LABS: Alanine Aminotransferase 53 U/L (0-40); Albumin Level 4.4 g/dL (3.5-5.0); Alkaline Phosphatase 208 U/L (39-117); Anion Gap 9 (12-20); Aspartate Amino Transferase 33 U/L (5-37); Bilirubin Total 0.8 mg/dL (0.0-1.0); Blood Urea Nitrogen 20 mg/dL (9-16); Calcium 9.5 mg/dL (8.4-10.2); Carbon Dioxide 26 mmol/L (22-29); Chloride 109 mmol/L (96-108); Estimated Glomerular Filt Rate > 60; Glucose Random 88 mg/dL (60-115); Magnesium 1.6 mg/dL (1.6-2.6); Potassium 4.4 mmol/L (3.3-5.1); Sodium 140 mmol/L (135-145); Total Protein 7.2 g/dL (6.5-8.0)
[2023-01-10 11:54] LABS: Tacrolimus Prograf 5.8 NG/ML ((5-20))
== END 2023-01-09 06:59 | disposition home or self-care (01) ==
LOC: HO.LABR 06:58
PROVIDERS: Visit Provider Internal Medicine
DX: D84.9 Immunodeficiency, unspecified (principal); Z94.4 Liver transplant status
CPT/HCPCS: 36415; 80053; 80197; 83735; 85025

== ENCOUNTER 2023-01-16 07:10 | Outpatient (REF) | payer OTHER, SELFPAY ==
[2023-01-16 07:25] LABS: MANUAL DIFF FLAG NO
[2023-01-16 07:37] LABS: Basophils Percent Auto 0.6 % (0-2); Eosinophils Absolute Auto 0.1 X10*3/uL (0.0-0.4); Eosinophils Percent Auto 1.9 % (0-4); Hematocrit 38.1 % (42.0-52.0); Hemoglobin 13.3 g/dl (14.0-18.0); Imm Gran Abs Auto 0.01 X10*3/uL (0.00-0.03); Imm Gran Pct Auto 0.2 % (0.0-0.4); Lymphocytes Absolute Auto 1.5 X10*3/uL (1.2-4.9); Mean Corpuscular HGB Conc 34.9 g/dl (31.0-36.0); Mean Corpuscular Hemoglobin 29.6 pg (27.0-33.0); Mean Corpuscular Volume 84.7 fL (80.0-98.0); Mean Platelet Volume 11.1 fL (9.4-12.4); Monocytes Absolute Auto 0.5 X10*3/uL (0.1-1.2); Monocytes Percent Auto 10.4 % (2-11); Neutrophils Absolute Auto 2.5 x10*3/uL (2.0-8.3); Neutrophils Percent Auto 53.9 % (45-73); Platelet Count 121 X10*3/uL (160-400); White Blood Count 4.6 X10*3/uL (4.8-10.8)
[2023-01-16 07:59] LABS: Magnesium 1.6 mg/dL (1.6-2.6)
[2023-01-17 13:15] LABS: Tacrolimus Prograf 6.4 NG/ML ((5-20))
== END 2023-01-16 07:11 | disposition home or self-care (01) ==
LOC: HO.LABR 07:10
PROVIDERS: Visit Provider Internal Medicine
DX: D84.9 Immunodeficiency, unspecified (principal); Z94.4 Liver transplant status
CPT/HCPCS: 36415; 80197; 83735; 85025

== ENCOUNTER 2023-01-23 06:06 | Outpatient (REF) | payer OTHER, SELFPAY | END 2023-01-23 06:07 | disposition home or self-care (01) | LOC: HO.LABR 06:06 | PROVIDERS: PCP Internal Medicine; Visit Provider Internal Medicine | DX: D84.9 Immunodeficiency, unspecified (principal); Z94.4 Liver transplant status | CPT/HCPCS: 36415; 80053; 80197; 83735; 85025 ==

== ENCOUNTER 2023-01-30 06:46 | Outpatient (REF) | payer OTHER, SELFPAY ==
[2023-01-30 06:59] LABS: MANUAL DIFF FLAG NO
[2023-01-30 07:16] LABS: Basophils Percent Auto 0.8 % (0-2); Eosinophils Absolute Auto 0.1 X10*3/uL (0.0-0.4); Eosinophils Percent Auto 1.7 % (0-4); Hematocrit 39.5 % (42.0-52.0); Hemoglobin 13.7 g/dl (14.0-18.0); Imm Gran Abs Auto 0.01 X10*3/uL (0.00-0.03); Imm Gran Pct Auto 0.2 % (0.0-0.4); Lymphocytes Absolute Auto 1.9 X10*3/uL (1.2-4.9); Lymphocytes Percent Auto 36.7 % (20-40); Mean Corpuscular HGB Conc 34.7 g/dl (31.0-36.0); Mean Corpuscular Hemoglobin 29.2 pg (27.0-33.0); Mean Corpuscular Volume 84.2 fL (80.0-98.0); Mean Platelet Volume 10.3 fL (9.4-12.4); Monocytes Absolute Auto 0.6 X10*3/uL (0.1-1.2); Monocytes Percent Auto 11.4 % (2-11); Neutrophils Absolute Auto 2.6 x10*3/uL (2.0-8.3); Neutrophils Percent Auto 49.2 % (45-73); Platelet Count 121 X10*3/uL (160-400); Red Blood Count 4.69 X10*6/uL (4.60-5.80); Red Cell Distribution Width 12.8 % (11.0-16.0); White Blood Count 5.3 X10*3/uL (4.8-10.8)
[2023-01-30 07:32] LABS: Alanine Aminotransferase 52 U/L (0-40); Albumin Level 4.5 g/dL (3.5-5.0); Alkaline Phosphatase 163 U/L (39-117); Anion Gap 12 (12-20); Aspartate Amino Transferase 42 U/L (5-37); Bilirubin Total 0.9 mg/dL (0.0-1.0); Blood Urea Nitrogen 20 mg/dL (9-16); Calcium 9.9 mg/dL (8.4-10.2); Carbon Dioxide 25 mmol/L (22-29); Chloride 106 mmol/L (96-108); Estimated Glomerular Filt Rate > 60; Glucose Random 140 mg/dL (60-115); Magnesium 1.6 mg/dL (1.6-2.6); Sodium 138 mmol/L (135-145); Total Protein 7.3 g/dL (6.5-8.0)
[2023-01-30 14:56] LABS: Tacrolimus Prograf 5.4 NG/ML ((5-20))
== END 2023-01-30 06:47 | disposition home or self-care (01) ==
LOC: HO.LABR 06:46
PROVIDERS: Visit Provider Internal Medicine
DX: D84.9 Immunodeficiency, unspecified (principal); Z94.4 Liver transplant status
CPT/HCPCS: 36415; 80053; 80197; 83735; 85025

== ENCOUNTER 2023-02-06 07:33 | Outpatient (REF) | payer OTHER, SELFPAY ==
[2023-02-06 07:45] LABS: MANUAL DIFF FLAG NO
[2023-02-06 07:50] LABS: Basophils Percent Auto 0.9 % (0-2); Eosinophils Absolute Auto 0.1 X10*3/uL (0.0-0.4); Eosinophils Percent Auto 1.3 % (0-4); Hematocrit 37.4 % (42.0-52.0); Hemoglobin 13.4 g/dl (14.0-18.0); Imm Gran Abs Auto 0.01 X10*3/uL (0.00-0.03); Imm Gran Pct Auto 0.2 % (0.0-0.4); Lymphocytes Absolute Auto 1.7 X10*3/uL (1.2-4.9); Lymphocytes Percent Auto 36.7 % (20-40); Mean Corpuscular HGB Conc 35.8 g/dl (31.0-36.0); Mean Corpuscular Hemoglobin 29.8 pg (27.0-33.0); Mean Corpuscular Volume 83.1 fL (80.0-98.0); Mean Platelet Volume 10.9 fL (9.4-12.4); Monocytes Absolute Auto 0.5 X10*3/uL (0.1-1.2); Monocytes Percent Auto 9.7 % (2-11); Neutrophils Absolute Auto 2.4 x10*3/uL (2.0-8.3); Neutrophils Percent Auto 51.2 % (45-73); Platelet Count 115 X10*3/uL (160-400); Red Cell Distribution Width 12.5 % (11.0-16.0); White Blood Count 4.6 X10*3/uL (4.8-10.8)
[2023-02-06 08:02] LABS: Alanine Aminotransferase 54 U/L (0-40); Albumin Level 4.3 g/dL (3.5-5.0); Alkaline Phosphatase 170 U/L (39-117); Anion Gap 13 (12-20); Aspartate Amino Transferase 41 U/L (5-37); Bilirubin Total 0.8 mg/dL (0.0-1.0); Blood Urea Nitrogen 18 mg/dL (9-16); Calcium 9.7 mg/dL (8.4-10.2); Carbon Dioxide 23 mmol/L (22-29); Chloride 106 mmol/L (96-108); Estimated Glomerular Filt Rate > 60; Glucose Random 146 mg/dL (60-115); Magnesium 1.5 mg/dL (1.6-2.6); Potassium 4.8 mmol/L (3.3-5.1); Sodium 137 mmol/L (135-145); Total Protein 7.1 g/dL (6.5-8.0)
[2023-02-07 13:38] LABS: Tacrolimus Prograf 6.1 NG/ML ((5-20))
== END 2023-02-06 07:34 | disposition home or self-care (01) ==
LOC: HO.LABR 07:33
PROVIDERS: PCP Internal Medicine; Visit Provider Internal Medicine
DX: D64.9 Anemia, unspecified (principal); Z94.4 Liver transplant status
CPT/HCPCS: 36415; 80053; 80197; 83735; 85025

== ENCOUNTER 2023-02-13 06:34 | Outpatient (REF) | payer OTHER, SELFPAY ==
[2023-02-13 06:59] LABS: MANUAL DIFF FLAG NO
[2023-02-13 07:27] LABS: Basophils Percent Auto 0.6 % (0-2); Eosinophils Absolute Auto 0.1 X10*3/uL (0.0-0.4); Eosinophils Percent Auto 1.5 % (0-4); Hematocrit 35.3 % (42.0-52.0); Hemoglobin 12.7 g/dl (14.0-18.0); Imm Gran Abs Auto 0.03 X10*3/uL (0.00-0.03); Imm Gran Pct Auto 0.6 % (0.0-0.4); Lymphocytes Absolute Auto 1.5 X10*3/uL (1.2-4.9); Lymphocytes Percent Auto 32.3 % (20-40); Mean Corpuscular Hemoglobin 29.7 pg (27.0-33.0); Mean Corpuscular Volume 82.7 fL (80.0-98.0); Mean Platelet Volume 10.5 fL (9.4-12.4); Monocytes Absolute Auto 0.6 X10*3/uL (0.1-1.2); Monocytes Percent Auto 11.9 % (2-11); Neutrophils Absolute Auto 2.5 x10*3/uL (2.0-8.3); Neutrophils Percent Auto 53.1 % (45-73); Platelet Count 114 X10*3/uL (160-400); Red Blood Count 4.27 X10*6/uL (4.60-5.80); Red Cell Distribution Width 12.3 % (11.0-16.0); White Blood Count 4.6 X10*3/uL (4.8-10.8)
[2023-02-13 07:48] LABS: Alanine Aminotransferase 50 U/L (0-40); Albumin Level 4.3 g/dL (3.5-5.0); Alkaline Phosphatase 168 U/L (39-117); Anion Gap 12 (12-20); Aspartate Amino Transferase 36 U/L (5-37); Bilirubin Total 0.9 mg/dL (0.0-1.0); Blood Urea Nitrogen 20 mg/dL (9-16); Calcium 9.8 mg/dL (8.4-10.2); Carbon Dioxide 26 mmol/L (22-29); Chloride 106 mmol/L (96-108); Estimated Glomerular Filt Rate > 60; Glucose Random 106 mg/dL (60-115); Magnesium 1.6 mg/dL (1.6-2.6); Potassium 4.5 mmol/L (3.3-5.1); Sodium 139 mmol/L (135-145); Total Protein 6.9 g/dL (6.5-8.0)
[2023-02-14 11:20] LABS: Tacrolimus Prograf 5.4 NG/ML ((5-20))
== END 2023-02-13 06:35 | disposition home or self-care (01) ==
LOC: HO.LABR 06:34
PROVIDERS: Visit Provider Internal Medicine
DX: D84.9 Immunodeficiency, unspecified (principal); Z94.4 Liver transplant status; Z79.899 Other long term (current) drug therapy
CPT/HCPCS: 36415; 80053; 80197; 83735; 85025

== ENCOUNTER 2023-02-24 14:43 | Outpatient (AMB) | payer OTHER, SELFPAY ==
[2023-02-24 14:48] VITALS: BP 131/65; PULSE 63; BMI 31.6
--- NOTE | 2023-02-24 14:48 | MHC.OFFVIS ---
Intake Vital Signs 02/24/23 14:48 Height 5 ft 7 in Weight 202 lb BMI 31.6 BP 131/65 Blood Pressure Location Rt brachial Position Sitting Pulse 63 Intake Visit Reasons: Mass~ back Intake Note: Patient referred for growth on Lt mid back. C/o pain when pressing on it. Account Assistant Required: No Accompanied by: Self / Same As Patient Allergies No Known Allergies [No Known Allergies*] Allergy (Verified 02/24/23 14:54) HPI HPI Comments History of Present Illness Details Patient presents for evaluation of a left mid back mass/lipoma and upper back sebaceous cyst. He has had these both indeterminate amount of time but would like to have them excised. Patient has a very involved past surgical history including liver transplant approximately 3 years ago. Chart was reviewed patient evaluated [facility] Medical History Hx of hepatitis Anxiety and depression Tubular adenoma of colon Diabetes 1.5, managed as type 2 Hx of substance abuse GERD (gastroesophageal reflux disease) Surgical History Hx of colonoscopy Hx of esophagogastroduodenoscopy History of open reduction and internal fixation (ORIF) procedure History of appendectomy S/P liver transplant Social History Household Members: None Alcohol intake: never Patient Tobacco Use Status: Never used Tobacco Current occupational status: disabled Physical Exam Vital Signs: Last Vital Signs Pulse 63 02/24/23 14:48 BP 131/65 02/24/23 14:48 BMI result Body Mass Index 31.6 Chest Other: Chest breath sounds bilaterally, HS 1 in 2 GI Other: Large upper abdominal incision status post liver transplant. Abdomen otherwise soft benign Back/Spine/Pelvis Other: Patient has approximately 3 x 2 cm mid upper back sebaceous cyst. Patient has approximately 6 x 5 cm left mid back large lipoma. Assessment & Plan Assessment & Plan (1) Lipoma of back: Code(s): D17.1 - Benign lipomatous neoplasm of skin and subcutaneous tissue of trunk (2) Sebaceous cyst: Code(s): L72.3 - Sebaceous cyst Plan Risks, benefits, alternatives of excision of the lipoma and sebaceous cyst reviewed the patient and included but not limited to bleeding, infection, recurrence, numbness, pain, scarring, wound dehiscence, seroma formation and the patient wishes to proceed. All questions were answered. Arrangements will be made for this. Coding Level of Care Code New Pt Level 5 (43940) Diagnoses Lipoma of back D17.1 Sebaceous cyst L72.3
== END 2023-02-24 14:59 | disposition home or self-care (01) ==
PROVIDERS: PCP Internal Medicine; Referring Provider Internal Medicine; Visit Provider Surgery
DX: D17.1 Benign lipomatous neoplasm of skin and subcutaneous tissue of trunk (principal); L72.3 Sebaceous cyst
CPT/HCPCS: 99204

== ENCOUNTER → 2023-02-24 14:43 | Outpatient (BNVA) | payer OTHER, SELFPAY | PROVIDERS: PCP Internal Medicine; Referring Provider Internal Medicine; Visit Provider Surgery | DX: D17.1 Benign lipomatous neoplasm of skin and subcutaneous tissue of trunk (principal); L72.3 Sebaceous cyst; Z79.60 Long term (current) use of unspecified immunomodulators and immunosuppressants | CPT/HCPCS: 99202 ==

== ENCOUNTER 2023-02-26 06:46 | Outpatient (REF) | payer OTHER, SELFPAY ==
[2023-02-26 06:58] LABS: MANUAL DIFF FLAG NO
[2023-02-26 07:19] LABS: Basophils Percent Auto 0.8 % (0-2); Eosinophils Absolute Auto 0.1 X10*3/uL (0.0-0.4); Eosinophils Percent Auto 1.2 % (0-4); Hematocrit 38.1 % (42.0-52.0); Hemoglobin 13.3 g/dl (14.0-18.0); Imm Gran Abs Auto 0.02 X10*3/uL (0.00-0.03); Imm Gran Pct Auto 0.4 % (0.0-0.4); Lymphocytes Absolute Auto 1.8 X10*3/uL (1.2-4.9); Lymphocytes Percent Auto 36.5 % (20-40); Mean Corpuscular HGB Conc 34.9 g/dl (31.0-36.0); Mean Corpuscular Hemoglobin 29.3 pg (27.0-33.0); Mean Corpuscular Volume 83.9 fL (80.0-98.0); Mean Platelet Volume 10.6 fL (9.4-12.4); Monocytes Absolute Auto 0.5 X10*3/uL (0.1-1.2); Monocytes Percent Auto 10.4 % (2-11); Neutrophils Absolute Auto 2.5 x10*3/uL (2.0-8.3); Neutrophils Percent Auto 50.7 % (45-73); Platelet Count 119 X10*3/uL (160-400); Red Blood Count 4.54 X10*6/uL (4.60-5.80); Red Cell Distribution Width 12.4 % (11.0-16.0); White Blood Count 4.9 X10*3/uL (4.8-10.8)
[2023-02-26 07:42] LABS: Alanine Aminotransferase 67 U/L (0-40); Albumin Level 4.3 g/dL (3.5-5.0); Alkaline Phosphatase 190 U/L (39-117); Anion Gap 9 (12-20); Aspartate Amino Transferase 49 U/L (5-37); Bilirubin Total 0.7 mg/dL (0.0-1.0); Blood Urea Nitrogen 18 mg/dL (9-16); Calcium 9.2 mg/dL (8.4-10.2); Carbon Dioxide 26 mmol/L (22-29); Chloride 109 mmol/L (96-108); Estimated Glomerular Filt Rate > 60; Glucose Random 126 mg/dL (60-115); Magnesium 1.8 mg/dL (1.6-2.6); Sodium 139 mmol/L (135-145); Total Protein 7.1 g/dL (6.5-8.0)
== END 2023-02-26 06:47 | disposition home or self-care (01) ==
LOC: HO.LABR 06:46
PROVIDERS: PCP Internal Medicine; Visit Provider Internal Medicine
DX: D84.9 Immunodeficiency, unspecified (principal); Z94.4 Liver transplant status
CPT/HCPCS: 36415; 80053; 80197; 83735; 85025

== ENCOUNTER 2023-03-06 06:48 | Outpatient (REF) | payer OTHER, SELFPAY ==
[2023-03-06 07:01] LABS: MANUAL DIFF FLAG NO
[2023-03-06 07:32] LABS: Basophils Percent Auto 0.4 % (0-2); Eosinophils Absolute Auto 0.1 X10*3/uL (0.0-0.4); Eosinophils Percent Auto 1.7 % (0-4); Hemoglobin 13.5 g/dl (14.0-18.0); Imm Gran Abs Auto 0.02 X10*3/uL (0.00-0.03); Imm Gran Pct Auto 0.4 % (0.0-0.4); Lymphocytes Absolute Auto 1.6 X10*3/uL (1.2-4.9); Lymphocytes Percent Auto 34.2 % (20-40); Mean Corpuscular HGB Conc 34.6 g/dl (31.0-36.0); Mean Corpuscular Hemoglobin 29.1 pg (27.0-33.0); Mean Corpuscular Volume 84.1 fL (80.0-98.0); Mean Platelet Volume 11.4 fL (9.4-12.4); Monocytes Absolute Auto 0.5 X10*3/uL (0.1-1.2); Monocytes Percent Auto 9.8 % (2-11); Neutrophils Absolute Auto 2.6 x10*3/uL (2.0-8.3); Neutrophils Percent Auto 53.5 % (45-73); Platelet Count 116 X10*3/uL (160-400); Red Blood Count 4.64 X10*6/uL (4.60-5.80); Red Cell Distribution Width 12.7 % (11.0-16.0); White Blood Count 4.8 X10*3/uL (4.8-10.8)
[2023-03-06 07:58] LABS: Alanine Aminotransferase 61 U/L (0-40); Albumin Level 4.5 g/dL (3.5-5.0); Alkaline Phosphatase 178 U/L (39-117); Anion Gap 10 (12-20); Aspartate Amino Transferase 44 U/L (5-37); Bilirubin Total 0.7 mg/dL (0.0-1.0); Blood Urea Nitrogen 16 mg/dL (9-16); Calcium 9.5 mg/dL (8.4-10.2); Carbon Dioxide 28 mmol/L (22-29); Chloride 107 mmol/L (96-108); Estimated Glomerular Filt Rate > 60; Glucose Random 133 mg/dL (60-115); Magnesium 1.6 mg/dL (1.6-2.6); Potassium 4.9 mmol/L (3.3-5.1); Sodium 140 mmol/L (135-145); Total Protein 7.3 g/dL (6.5-8.0)
== END 2023-03-06 06:49 | disposition home or self-care (01) ==
LOC: HO.LABR 06:48
PROVIDERS: Internal Medicine; Visit Provider Internal Medicine
DX: D84.9 Immunodeficiency, unspecified (principal); Z94.4 Liver transplant status
CPT/HCPCS: 36415; 80053; 80197; 83735; 85025

== ENCOUNTER 2023-03-16 06:28 | Outpatient (REF) | payer OTHER, SELFPAY ==
[2023-03-16 06:56] LABS: MANUAL DIFF FLAG NO
[2023-03-16 07:21] LABS: Alanine Aminotransferase 43 U/L (0-40); Albumin Level 4.4 g/dL (3.5-5.0); Alkaline Phosphatase 130 U/L (39-117); Anion Gap 10 (12-20); Aspartate Amino Transferase 32 U/L (5-37); Bilirubin Total 0.6 mg/dL (0.0-1.0); Blood Urea Nitrogen 19 mg/dL (9-16); Calcium 9.2 mg/dL (8.4-10.2); Carbon Dioxide 26 mmol/L (22-29); Chloride 108 mmol/L (96-108); Estimated Glomerular Filt Rate > 60; Glucose Random 84 mg/dL (60-115); Magnesium 1.6 mg/dL (1.6-2.6); Potassium 4.2 mmol/L (3.3-5.1); Sodium 140 mmol/L (135-145); Total Protein 7.1 g/dL (6.5-8.0)
[2023-03-16 07:32] LABS: Basophils Percent Auto 0.9 % (0-2); Eosinophils Absolute Auto 0.1 X10*3/uL (0.0-0.4); Eosinophils Percent Auto 1.3 % (0-4); Hematocrit 37.4 % (42.0-52.0); Hemoglobin 13.1 g/dl (14.0-18.0); Imm Gran Abs Auto 0.01 X10*3/uL (0.00-0.03); Imm Gran Pct Auto 0.2 % (0.0-0.4); Lymphocytes Absolute Auto 1.6 X10*3/uL (1.2-4.9); Lymphocytes Percent Auto 34.4 % (20-40); Mean Corpuscular Hemoglobin 29.3 pg (27.0-33.0); Mean Corpuscular Volume 83.7 fL (80.0-98.0); Monocytes Absolute Auto 0.6 X10*3/uL (0.1-1.2); Monocytes Percent Auto 12.2 % (2-11); Neutrophils Absolute Auto 2.4 x10*3/uL (2.0-8.3); Platelet Count 106 X10*3/uL (160-400); Red Blood Count 4.47 X10*6/uL (4.60-5.80); Red Cell Distribution Width 12.6 % (11.0-16.0); White Blood Count 4.7 X10*3/uL (4.8-10.8)
[2023-03-16 14:22] LABS: Tacrolimus Prograf 5.6 NG/ML ((5-20))
== END 2023-03-16 06:29 | disposition home or self-care (01) ==
LOC: HO.LABR 06:28
PROVIDERS: Visit Provider Internal Medicine
DX: D84.9 Immunodeficiency, unspecified (principal); Z94.4 Liver transplant status; Z79.899 Other long term (current) drug therapy
CPT/HCPCS: 36415; 80053; 80197; 83735; 85025

== ENCOUNTER 2023-03-17 13:48 | Outpatient (AMB) | payer OTHER, SELFPAY ==
--- NOTE | 2023-03-17 13:46 | MHC.OFFVIS ---
Intake Intake Visit Reasons: Growt on back Allergies No Known Allergies [No Known Allergies*] Allergy (Verified 02/24/23 14:54) HPI HPI Comments History of Present Illness Details Patient would like to review his proposed operative procedure. He also will need to change the operative date from 03/27 to another day. He has complaints of right mid back discomfort. Patient had extensive workup for this including both sonogram and CT scan which were negative for any acute pathology in is area of concern. [facility] Medical History Hx of hepatitis Anxiety and depression Tubular adenoma of colon Diabetes 1.5, managed as type 2 Hx of substance abuse GERD (gastroesophageal reflux disease) Surgical History Hx of colonoscopy Hx of esophagogastroduodenoscopy History of open reduction and internal fixation (ORIF) procedure History of appendectomy S/P liver transplant Social History Household Members: None Alcohol intake: never Patient Tobacco Use Status: Never used Tobacco Current occupational status: disabled Physical Exam Back/Spine/Pelvis Other: Exam is status quo. Patient has approximately 3 x 2 upper midline back sebaceous cyst in approximately 5 x 4 cm left mid back large lipoma. There is no obvious pathology in the patient's right mid back. This was confirmed by both sonogram and CT scan Assessment & Plan Assessment & Plan (1) Sebaceous cyst: Code(s): L72.3 - Sebaceous cyst (2) Lipoma of back: Code(s): D17.1 - Benign lipomatous neoplasm of skin and subcutaneous tissue of trunk Plan Patient would like to proceed with excision of the lipoma and sebaceous cyst none the less. He would like to choose another day. Arrangements were made for this. All questions answered. Coding Level of Care Code Est Pt Level 4 (21290) Diagnoses Sebaceous cyst L72.3 Lipoma of back D17.1
--- OUTSIDE RECORDS SUMMARY | 2023-03-17 13:50 | XMS_ITS | Continuity of Care Document ---
Author Name Unknown Organization [facility] Address [address] [place] [address]- Care Team Providers Care Director Design Name Role Phone Maria Del Rosario LONG, Agustin Moran Primary Care Physi cindy Encounter [facility] Date(s): 01/31/22 - 03/02/22 [facility] [address] [place] [id number] Allergies, Adverse Reactions, Alerts [...] Date: 01/07/22 Status: Ordered Freestyle savana 2 [place] Freestyle savana 2 [place], See Instructions, # 1 pack/packet, Refills 0, [...] 6 Refills, Maintenance, 07/30/21 11:16:00 EDT, Solution, [facility]/pharmacy #[id number], Partial fill upon patient request [...] Maria Del Rosario LONG, Agustin Moran Position: [facility] Outreach Member Role: PCP Address: Address: [address] [place] [address]- [place] Name: Sandra Marti RN Position: S RN Member Role: Primary Care Nurse Name: Aleyda Arias RN Position: [facility] RN Member Role: Primary Care Nurse Address: Address: [address] [place] [address]- [place] Name: Radha Lacy RN Position: [facility] SN RN Member Role: Primary Care Nurse Care Team Related Persons Name: BRETT ALLEN Address: home [address] [address] Name: ANIBAL LUONG Address: home [address] [place] [address]
== END 2023-03-17 13:50 | disposition home or self-care (01) ==
LOC: HO.HGS 13:48
PROVIDERS: PCP Internal Medicine; Visit Provider Surgery
DX: L72.3 Sebaceous cyst (principal); D17.1 Benign lipomatous neoplasm of skin and subcutaneous tissue of trunk
CPT/HCPCS: 99214

== ENCOUNTER → 2023-03-17 13:48 | Outpatient (BNVA) | payer OTHER, SELFPAY | PROVIDERS: PCP Internal Medicine; Visit Provider Surgery | DX: L72.3 Sebaceous cyst (principal); D17.1 Benign lipomatous neoplasm of skin and subcutaneous tissue of trunk | CPT/HCPCS: 99212 ==

== ENCOUNTER 2023-04-16 06:00 | Day surgery (SDC) | payer OTHER, SELFPAY ==
[2023-04-14 09:14] VITALS: BMI 31.0
--- NOTE | 2023-04-15 15:03 | MHC.SHP ---
Pre-Procedural Eval Section A Date of Service: 04/15/23 The patient is an INPATIENT: No Changes since office visit: No Cold of Flu in the past 2 weeks, No New Medical Problems, No Changes in Medication and No Patient answered all questions The History & Physical has been completed within 30 days and I have reviewed it.: Yes Section B Chief Complaint: Sebaceous cyst,Benign lipomatous neoplasm of skin Allergies: Allergies Allergy/AdvReac Type Severity Reaction Status Date / Time No Known Allergies Allergy Verified 02/24/23 14:54 [No Known Allergies*] Plan I have reviewed the history and physical and performed a pertinent physical examination on my patient. No changes have occurred unless specified. Time Spent With Patient Time: Total time managing care of this patient today ____ minutes.
[2023-04-16] MEDS: Lactated Ringers 1,000 ML 50 ML IVCONT (06:53)
[2023-04-16 07:04] VITALS: BP 145/78; PULSE 55; RESP 18; TEMP 36.6; O2SAT 96
[2023-04-16 07:05] VITALS: BMI 31.9
[2023-04-16 07:06] LABS: Glucose, Whole Blood 107 mg/dL (60-115)
--- NOTE | 2023-04-16 08:18 | HO.ANESPROP2 ---
[facility] Active Problems Active Problems: All Active Problems (Updated 11/13/22 @ 00:01 by Valentín Miller) Sebaceous cyst (Acute) Lipoma of back (Acute) Pulmonary nodules (Acute) Chest wall pain (Acute) Pleural effusion associated with hepatic disorder (Acute) Erectile dysfunction due to arterial insufficiency (Acute) Colon cancer screening (Acute) RUQ abdominal pain (Acute) S/P liver transplant (Acute) GERD (gastroesophageal reflux disease) (Acute) Past Medical History Medical History Hx of hepatitis Anxiety and depression Tubular adenoma of colon Diabetes 1.5, managed as type 2 Hx of substance abuse GERD (gastroesophageal reflux disease) Family History Family history of problems with anesthesia: No Surgical History Surgical History Hx of colonoscopy Hx of esophagogastroduodenoscopy History of open reduction and internal fixation (ORIF) procedure History of appendectomy S/P liver transplant History of Problems with Anesthesia: No Social History Social History Household Members: None Alcohol intake: never Patient Tobacco Use Status: Never used Tobacco Are you DNR?: No Advance Directives: No Advance Directives Information Provided: Yes Nutrition Risks: No Nutritional Risk Current occupational status: disabled Meds Allergies Allergy/AdvReac Type Severity Reaction Status Date / Time No Known Allergies Allergy Verified 04/16/23 06:35 [No Known Allergies*] Active Medications: Current Medications Lactated Ringer's (Lr) 1,000 mls @ 50 mls/hr IVCONT .Q20H SERGIO Last Admin: 04/16/23 06:53 Dose: 50 mls/hr Home Medications Medication Instructions Recorded Confirmed Last Taken Type ferrous sulfate 325 mg (65 mg 325 mg PO DAILY 07/27/20 04/16/23 Unknown History iron) tablet magnesium oxide 400 mg (241.3 mg 400 mg PO DAILY 07/27/20 04/16/23 Unknown History magnesium) tablet (MagOx) insulin aspart U-100 100 unit/mL 10 unit subcut TID 06/21/21 04/16/23 Unknown History (3 mL) subcutaneous pen (Novolog FlexPen U-100 Insulin aspart) insulin glargine 100 unit/mL (3 20 unit subcut BEDTIME 06/21/21 04/16/23 Unknown History mL) subcutaneous pen (Lantus Solostar U-100 Insulin) multivitamin with folic acid 400 1 tab PO DAILY 06/21/21 04/16/23 Unknown History mcg tablet (Daily-Stacy (with folic acid)) tramadol 50 mg tablet 1 tab PO Q8H PRN Pain 06/21/21 04/16/23 Unknown History zolpidem 10 mg tablet 1 tab PO BEDTIME PRN Sleep 06/21/21 04/16/23 Unknown History blood sugar diagnostic (FreeStyle #10 ea 07/02/21 03/17/23 Unknown History Lite Strips) cholecalciferol (vitamin D3) 50 50 mcg PO DAILY 07/02/21 04/16/23 Unknown History mcg (2,000 unit) tablet (Vitamin D3) gabapentin 300 mg capsule 0 mg PO 07/02/21 03/17/23 Unknown History omeprazole 20 mg capsule,delayed 20 mg PO DAILY 07/02/21 04/16/23 Unknown History release tacrolimus 1 mg capsule, 1 mg PO Q12H 02/25/23 04/16/23 Unknown History immediate-release Exam Height,Weight and Vital Signs: Height 5 ft 7 in Weight 92.261 kg Last Vital Signs Temp 97.9 F 04/16/23 07:04 Pulse 55 04/16/23 07:04 Resp 18 04/16/23 07:04 BP 145/78 H 04/16/23 07:04 Pulse Ox 96 04/16/23 07:04 O2 Del Method Room Air 04/16/23 07:04 Pertinent Lab Results Pertinent Lab Results: Laboratory Tests 04/16/23 06:57 POC Glucose 107 Airway Mallampati Class: II (partials upper and lower) TM Dist: >3cm Neck ROM: Full Partial: Upper and Lower Loose/Missing/Broken Teeth: Yes, Upper and Lower Heart: RRR Lungs: CTA Assessment and Plan Assessment Anesthesia Assessment: Anesthesia Plan Discussed and Chart Reviewed Final Anesthetic Review Family History of Problems with Anesthesia: No History of Problems with Anesthesia: No NPO: Yes ASA Class: III Final Preanesthetic Review: Meds/Allgs Chart Reviewed, Consent Obtained/Reviewed and Anes Risks/Benef Reviewed Patient Risk: Intermediate Procedure Risk: Low Anesthetic Plan Anesthetic Plan: MAC: Disposition: Standard PACU
--- NOTE | 2023-04-16 09:34 | W.PM.OPN ---
Operative Note Operative Note Date of Service: 04/16/23 Narrative: Preoperative diagnosis: [] 1. Left upper back large lipoma 2. Mid back sebaceous cyst Postop diagnosis: [] Same Procedure [] 1. Excision large left upper back lipoma (9 x 6 cm) 2. Wide local excision mid back sebaceous cyst (approximately 3 x 2 cm. ) Surgeon: Siva Anesthesia: Mac Accounting Teacher: Olvin Findings: specimen sizes as noted above. Procedure: Patient is brought to the operating room, placed on the operative table in the supine position, after adequate level of MAC anesthesia was induced, patient was placed in the right lateral decubitus position. Mid upper back area were prepped and draped in usual sterile fashion. Left upper back lipoma was approached 1st with a transverse incision carried down through skin, subcutaneous tissue, were superior and inferior skin flaps were developed and dissection down to a very large lipoma was accomplished using Bovie. Lipoma was attached to the underlying back muscle and using Bovie this was circumferentially excised and sent to pathology. Wound was irrigated, secured hemostasis, and closed using interrupted inverted dermal 3-0 Vicryl sutures followed by Steri-Strips and sterile dressings. Next mid back sebaceous cyst was approached using a transverse bi-elliptical incision around the sebaceous cyst and and carried down through skin, subcutaneous tissue, where superior and inferior flaps were developed using Bovie and circumferential dissection of the cyst was accomplished using combination of scalpel and Bovie. Specimen sent to pathology. Wound was irrigated, secured hemostasis, and closed using interrupted inverted dermal 3-0 Vicryl sutures followed by Steri-Strips and sterile dressings. Sponge, needle, instrument counts reported correct. Patient tolerated the procedure well emerged anesthesia stable condition. EBL minimal
[2023-04-16 09:38] VITALS: BP 159/89; PULSE 67; RESP 18; TEMP 36.6; O2SAT 96
[2023-04-16 09:43] VITALS: BP 143/89; PULSE 62; RESP 18; O2SAT 97
[2023-04-16] MEDS: Acetaminophen 325 MG TABLET 650 MG PO (09:47)
[2023-04-16 09:48] VITALS: BP 183/98; PULSE 57; RESP 18; O2SAT 98
[2023-04-16] MEDS: oxyCODONE HCl Immed Release 5 MG TABLET PO (09:48)
[2023-04-16 09:54] VITALS: BP 175/94; PULSE 52; RESP 16; O2SAT 98
[2023-04-16 10:09] VITALS: BP 180/86; PULSE 51; RESP 16; TEMP 36.1; O2SAT 100
== END 2023-04-16 10:44 | disposition home or self-care (01) ==
PROVIDERS: PCP Internal Medicine; Visit Provider Surgery
PROC: (CPT 21931; principal; 2023-04-16 08:40)
DX: D17.1 Benign lipomatous neoplasm of skin and subcutaneous tissue of trunk (principal); L72.3 Sebaceous cyst; Z86.19 Personal history of other infectious and parasitic diseases; E13.9 Other specified diabetes mellitus without complications; K21.9 Gastro-esophageal reflux disease without esophagitis; F41.8 Other specified anxiety disorders; F19.11 Other psychoactive substance abuse, in remission; Z94.4 Liver transplant status; Z79.4 Long term (current) use of insulin; Z79.899 Other long term (current) drug therapy; Z98.890 Other specified postprocedural states
CPT/HCPCS: 21931; 11403; 82947; 88304; J0690; J2250; J2704; J2795; J3010

== ENCOUNTER → 2023-04-16 06:00 | Outpatient (BNV) | payer OTHER, SELFPAY | PROVIDERS: PCP Internal Medicine; Visit Provider Surgery | DX: D17.1 Benign lipomatous neoplasm of skin and subcutaneous tissue of trunk (principal); L72.3 Sebaceous cyst | CPT/HCPCS: 11403; 21933 ==

== ENCOUNTER 2023-04-22 07:50 | Outpatient (REF) | payer OTHER, SELFPAY ==
[2023-04-22 08:40] LABS: MANUAL DIFF FLAG NO
[2023-04-22 08:42] LABS: Basophils Percent Auto 0.5 % (0-2); Eosinophils Absolute Auto 0.1 X10*3/uL (0.0-0.4); Eosinophils Percent Auto 1.2 % (0-4); Hematocrit 35.5 % (42.0-52.0); Hemoglobin 12.7 g/dl (14.0-18.0); Imm Gran Abs Auto 0.02 X10*3/uL (0.00-0.03); Imm Gran Pct Auto 0.4 % (0.0-0.4); Lymphocytes Absolute Auto 1.5 X10*3/uL (1.2-4.9); Lymphocytes Percent Auto 26.1 % (20-40); Mean Corpuscular HGB Conc 35.8 g/dl (31.0-36.0); Mean Corpuscular Hemoglobin 29.5 pg (27.0-33.0); Mean Corpuscular Volume 82.6 fL (80.0-98.0); Mean Platelet Volume 11.6 fL (9.4-12.4); Monocytes Absolute Auto 0.6 X10*3/uL (0.1-1.2); Monocytes Percent Auto 10.4 % (2-11); Neutrophils Absolute Auto 3.5 x10*3/uL (2.0-8.3); Neutrophils Percent Auto 61.4 % (45-73); Platelet Count 121 X10*3/uL (160-400); Red Cell Distribution Width 12.9 % (11.0-16.0); White Blood Count 5.7 X10*3/uL (4.8-10.8)
[2023-04-22 13:31] LABS: Creatinine Urine 186.28 mg/dL; Microalbum/Creatinine Ratio Ur 10.1 ug/mg cr (<30)
[2023-04-22 13:36] LABS: Alanine Aminotransferase 52 U/L (0-40); Albumin Level 4.2 g/dL (3.5-5.0); Alkaline Phosphatase 140 U/L (39-117); Anion Gap 11 (12-20); Aspartate Amino Transferase 39 U/L (5-37); Bilirubin Total 0.6 mg/dL (0.0-1.0); Blood Urea Nitrogen 18 mg/dL (9-16); Calcium 9.4 mg/dL (8.4-10.2); Carbon Dioxide 24 mmol/L (22-29); Chloride 109 mmol/L (96-108); Cholesterol 177 mg/dL (<200); Estimated Glomerular Filt Rate > 60; Glucose Random 162 mg/dL (60-115); HDL Cholesterol 38 mg/dL (>40); LDL Cholesterol Calculated 117 mg/dL (<100); Potassium 4.9 mmol/L (3.3-5.1); Sodium 139 mmol/L (135-145); Triglycerides 110 mg/dL (<150)
[2023-04-22 13:42] LABS: TSH reflex Free T4 1.41 uIU/mL (0.32-4.0)
[2023-04-23 09:30] LABS: Tacrolimus Prograf 5.7 NG/ML ((5-20))
== END 2023-04-22 07:51 | disposition home or self-care (01) ==
LOC: HO.LAB 07:50
PROVIDERS: Absent Provider Internal Medicine; Visit Provider Physician Assistant Medical
DX: E11.9 Type 2 diabetes mellitus without complications (principal); D84.9 Immunodeficiency, unspecified; Z94.4 Liver transplant status
CPT/HCPCS: 36415; 80053; 80061; 80197; 82043; 82570; 84443; 85025

== ENCOUNTER 2023-04-27 09:41 | Outpatient (AMB) | payer OTHER, SELFPAY ==
--- NOTE | 2023-04-27 09:44 | MHC.OFFVIS ---
Intake Vital Signs 04/27/23 09:52 Height 5 ft 7 in Weight 203 lb 6 oz BMI 31.8 BP 138/84 Blood Pressure Location Lt brachial Position Sitting Pulse 81 Intake Visit Reasons: S/P WLE Lt mid back Lg lipoma, WLE midback EIC Intake Note: Patient is seen in office for post op assessment post excision of left upper & mid back lipoma. 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 Pathologies are benign. He has no wound issues or complaints. [facility] Medical History Hx of hepatitis Anxiety and depression Tubular adenoma of colon Diabetes 1.5, managed as type 2 Hx of substance abuse GERD (gastroesophageal reflux disease) Surgical History History of local excision of skin lesion (04/16/23) Hx of colonoscopy Hx of esophagogastroduodenoscopy History of open reduction and internal fixation (ORIF) procedure History of appendectomy S/P liver transplant Social History Household Members: None Alcohol intake: never Patient Tobacco Use Status: Never used Tobacco Current occupational status: disabled Physical Exam Vital Signs: Last Vital Signs Pulse 81 04/27/23 09:52 BP 138/84 04/27/23 09:52 BMI result Body Mass Index 31.8 Back/Spine/Pelvis Other: Sebaceous cyst incision clean dry and intact. Giant lipoma excision clean dry and intact. Patient has a moderately sized seroma. Under sterile technique, 70 cc of seroma was retrieved. Patient tolerated procedure well. Bandage applied. Assessment & Plan Assessment & Plan (1) Sebaceous cyst: Code(s): L72.3 - Sebaceous cyst (2) Lipoma of back: Code(s): D17.1 - Benign lipomatous neoplasm of skin and subcutaneous tissue of trunk (3) Seroma due to trauma: Code(s): T79.2XXA - Traumatic secondary and recurrent hemorrhage and seroma, initial encounter Plan Patient has been given local instructions including avoiding strenuous activities for next 2-3 weeks time and will follow-up p.r.n.. All questions answered. Coding Level of Care Code Global (75690) Diagnoses Sebaceous cyst L72.3 Lipoma of back D17.1 Seroma due to trauma T79.2XXA
[2023-04-27 09:52] VITALS: BP 138/84; PULSE 81; BMI 31.8
== END 2023-04-27 10:00 | disposition home or self-care (01) ==
PROVIDERS: PCP Internal Medicine; Visit Provider Surgery
DX: L72.3 Sebaceous cyst (principal); D17.1 Benign lipomatous neoplasm of skin and subcutaneous tissue of trunk; T79.2XXA Traumatic secondary and recurrent hemorrhage and seroma, initial encounter
CPT/HCPCS: 99024

== ENCOUNTER → 2023-04-27 09:41 | Outpatient (BNVA) | payer OTHER, SELFPAY | PROVIDERS: PCP Internal Medicine; Visit Provider Surgery | DX: Z09 Encounter for follow-up examination after completed treatment for conditions other than malignant neoplasm (principal); T79.2XXD Traumatic secondary and recurrent hemorrhage and seroma, subsequent encounter; Z87.2 Personal history of diseases of the skin and subcutaneous tissue | CPT/HCPCS: 99212 ==

== ENCOUNTER 2023-05-01 09:36 | Outpatient (AMB) | payer OTHER, SELFPAY ==
[2023-05-01 09:41] VITALS: BP 137/81; PULSE 62; BMI 32.1
--- NOTE | 2023-05-01 09:41 | A.OFFVIS_ITS ---
Intake Vital Signs 05/01/23 09:41 Height 5 ft 7 in Weight 205 lb BMI 32.1 BP 137/81 Blood Pressure Location Rt radial Position Sitting Pulse 62 Intake Visit Reasons: wound check, poss drain fluid Intake Note: Patient here c/o pain at exc site on back. Feel like it is filled with fluid again. Requesting pain med refill. Cook Helper Dessert Required: No Accompanied by: Self / Same As Patient Allergies No Known Allergies [No Known Allergies*] Allergy (Verified 05/01/23 09:43) HPI HPI Comments History of Present Illness Details Patient presents for follow-up status post seroma drainage. He has had a recurrence. No other wound issues or complaint PFSH Medical History Hx of hepatitis Anxiety and depression Tubular adenoma of colon Diabetes 1.5, managed as type 2 Hx of substance abuse GERD (gastroesophageal reflux disease) Surgical History History of local excision of skin lesion (04/16/23) Hx of colonoscopy Hx of esophagogastroduodenoscopy History of open reduction and internal fixation (ORIF) procedure History of appendectomy S/P liver transplant Social History Household Members: None Alcohol intake: never Patient Tobacco Use Status: Never used Tobacco Current occupational status: disabled Physical Exam Vital Signs: Last Vital Signs Pulse 62 05/01/23 09:41 BP 137/81 05/01/23 09:41 BMI result Body Mass Index 32.1 Back/Spine/Pelvis Other: Incisions both clean dry and intact. Lipoma site demonstrates recurrence of seroma. Under sterile technique aspiration retrieved only 40 cc of serous fluid this time. Dressing applied. Well-tolerated. Assessment & Plan Assessment & Plan (1) Seroma due to trauma: Code(s): T79.2XXA - Traumatic secondary and recurrent hemorrhage and seroma, initial encounter Plan Patient has once again been encouraged to avoiding stress activities. Should his seroma recur, he has been instructed to call the office or will otherwise follow-up p.r.n.. All questions answered Coding Level of Care Code Global (22337) Diagnoses Seroma due to trauma T79.2XXA
== END 2023-05-01 09:51 | disposition home or self-care (01) ==
PROVIDERS: PCP Internal Medicine; Visit Provider Surgery
DX: T79.2XXA Traumatic secondary and recurrent hemorrhage and seroma, initial encounter (principal)
CPT/HCPCS: 99024

== ENCOUNTER → 2023-05-01 09:36 | Outpatient (BNVA) | payer OTHER, SELFPAY | PROVIDERS: PCP Internal Medicine; Visit Provider Surgery | DX: L76.34 Postprocedural seroma of skin and subcutaneous tissue following other procedure (principal) | CPT/HCPCS: 10160; 99212 ==

== ENCOUNTER 2023-05-12 13:20 | Outpatient (AMB) | payer OTHER, SELFPAY ==
[2023-05-12 13:27] VITALS: BP 159/73; PULSE 64; BMI 31.8
--- NOTE | 2023-05-12 13:27 | MHC.OFFVIS ---
Intake Vital Signs 05/12/23 13:27 Height 5 ft 7 in Weight 203 lb BMI 31.8 BP 159/73 H Blood Pressure Location Rt brachial Position Sitting Pulse 64 Intake Visit Reasons: Wound check lesions on back Intake Note: Patient called and scheduled this appointment due to pain at excision sites. Patient due to get back injection pain for pain. Patient wants to make sure no more fluid build up. Patient c/o: reports incisions healing slowly. Paper Wrapping Machine Operator Required: No Accompanied by: Self / Same As Patient Allergies No Known Allergies [No Known Allergies*] Allergy (Verified 05/12/23 13:29) HPI HPI Comments History of Present Illness Details Patient presents for follow-up. No wound issues or complaints. Pathology was benign. [facility] Medical History Hx of hepatitis Anxiety and depression Tubular adenoma of colon Diabetes 1.5, managed as type 2 Hx of substance abuse GERD (gastroesophageal reflux disease) Surgical History History of local excision of skin lesion (04/16/23) Hx of colonoscopy Hx of esophagogastroduodenoscopy History of open reduction and internal fixation (ORIF) procedure History of appendectomy S/P liver transplant Social History Household Members: None Alcohol intake: never Patient Tobacco Use Status: Never used Tobacco Current occupational status: disabled Physical Exam Vital Signs: Last Vital Signs Pulse 64 05/12/23 13:27 BP 159/73 H 05/12/23 13:27 BMI result Body Mass Index 31.8 Back/Spine/Pelvis Other: Both incisions clean dry and intact healing uneventfully. No evidence of any recurrent seroma. Assessment & Plan Assessment & Plan (1) Sebaceous cyst: Code(s): L72.3 - Sebaceous cyst Plan Patient has been given local instructions, and will follow-up p.r.n.. All questions answered. Coding Level of Care Code Global (30789) Diagnoses Sebaceous cyst L72.3
== END 2023-05-12 13:34 | disposition home or self-care (01) ==
PROVIDERS: PCP Internal Medicine; Visit Provider Surgery
DX: L72.3 Sebaceous cyst (principal)
CPT/HCPCS: 99024

== ENCOUNTER → 2023-05-12 13:20 | Outpatient (BNVA) | payer OTHER, SELFPAY | PROVIDERS: PCP Internal Medicine; Visit Provider Surgery | DX: L72.3 Sebaceous cyst (principal); Z98.890 Other specified postprocedural states | CPT/HCPCS: 99212 ==

== ENCOUNTER 2023-05-21 06:03 | Outpatient (REF) | payer OTHER, SELFPAY ==
[2023-05-21 06:22] LABS: MANUAL DIFF FLAG NO
[2023-05-21 07:51] LABS: Basophils Absolute Auto 0.1 X10*3/uL (0.0-0.2); Eosinophils Absolute Auto 0.1 X10*3/uL (0.0-0.4); Eosinophils Percent Auto 1.4 % (0-4); Hemoglobin 13.4 g/dl (14.0-18.0); Imm Gran Abs Auto 0.02 X10*3/uL (0.00-0.03); Imm Gran Pct Auto 0.4 % (0.0-0.4); Lymphocytes Absolute Auto 1.5 X10*3/uL (1.2-4.9); Lymphocytes Percent Auto 29.1 % (20-40); Mean Corpuscular HGB Conc 36.2 g/dl (31.0-36.0); Mean Corpuscular Volume 82.8 fL (80.0-98.0); Mean Platelet Volume 11.5 fL (9.4-12.4); Monocytes Absolute Auto 0.6 X10*3/uL (0.1-1.2); Monocytes Percent Auto 11.4 % (2-11); Neutrophils Absolute Auto 2.8 x10*3/uL (2.0-8.3); Neutrophils Percent Auto 56.7 % (45-73); Platelet Count 115 X10*3/uL (160-400); Red Blood Count 4.47 X10*6/uL (4.60-5.80); Red Cell Distribution Width 12.7 % (11.0-16.0)
[2023-05-21 08:16] LABS: Alanine Aminotransferase 54 U/L (0-40); Albumin Level 4.3 g/dL (3.5-5.0); Alkaline Phosphatase 136 U/L (39-117); Anion Gap 10 (12-20); Aspartate Amino Transferase 37 U/L (5-37); Bilirubin Total 0.6 mg/dL (0.0-1.0); Blood Urea Nitrogen 18 mg/dL (9-16); Calcium 9.5 mg/dL (8.4-10.2); Carbon Dioxide 28 mmol/L (22-29); Chloride 104 mmol/L (96-108); Estimated Glomerular Filt Rate > 60; Glucose Random 140 mg/dL (60-115); Magnesium 1.7 mg/dL (1.6-2.6); Potassium 4.8 mmol/L (3.3-5.1); Sodium 137 mmol/L (135-145); Total Protein 7.1 g/dL (6.5-8.0)
[2023-05-22 09:06] LABS: Tacrolimus Prograf 4.9 NG/ML ((5-20))
[2023-05-22 13:52] LABS: Alpha Fetoprotein 1.2 ng/mL (<6.1)
== END 2023-05-21 06:04 | disposition home or self-care (01) ==
LOC: HO.LABR 06:03
PROVIDERS: Internal Medicine; PCP Internal Medicine; Visit Provider Internal Medicine
DX: Z94.4 Liver transplant status (principal); Z85.05 Personal history of malignant neoplasm of liver; Z79.899 Other long term (current) drug therapy
CPT/HCPCS: 36415; 80053; 80197; 82105; 83735; 85025

== ENCOUNTER 2023-06-03 09:00 | Outpatient (RCR) | payer OTHER, SELFPAY | END 2023-06-03 14:44 | disposition home or self-care (01) | LOC: HO.PT 09:00 | PROVIDERS: PCP Internal Medicine; Visit Provider Internal Medicine | DX: M54.50 Low back pain, unspecified (principal) | CPT/HCPCS: 97110; 97162 ==

== ENCOUNTER 2023-06-24 06:47 | Outpatient (REF) | payer OTHER, SELFPAY ==
[2023-06-24 07:07] LABS: MANUAL DIFF FLAG NO
[2023-06-24 07:49] LABS: Basophils Percent Auto 0.6 % (0-2); Eosinophils Absolute Auto 0.1 X10*3/uL (0.0-0.4); Eosinophils Percent Auto 1.7 % (0-4); Hematocrit 39.5 % (42.0-52.0); Hemoglobin 13.9 g/dl (14.0-18.0); Imm Gran Abs Auto 0.02 X10*3/uL (0.00-0.03); Imm Gran Pct Auto 0.4 % (0.0-0.4); Lymphocytes Absolute Auto 1.9 X10*3/uL (1.2-4.9); Lymphocytes Percent Auto 35.6 % (20-40); Mean Corpuscular HGB Conc 35.2 g/dl (31.0-36.0); Mean Corpuscular Hemoglobin 29.4 pg (27.0-33.0); Mean Corpuscular Volume 83.7 fL (80.0-98.0); Mean Platelet Volume 11.4 fL (9.4-12.4); Monocytes Absolute Auto 0.5 X10*3/uL (0.1-1.2); Monocytes Percent Auto 9.9 % (2-11); Neutrophils Absolute Auto 2.7 x10*3/uL (2.0-8.3); Neutrophils Percent Auto 51.8 % (45-73); Platelet Count 119 X10*3/uL (160-400); Red Blood Count 4.72 X10*6/uL (4.60-5.80); Red Cell Distribution Width 12.7 % (11.0-16.0); White Blood Count 5.3 X10*3/uL (4.8-10.8)
[2023-06-24 08:27] LABS: Alanine Aminotransferase 31 U/L (0-40); Albumin Level 4.5 g/dL (3.5-5.0); Alkaline Phosphatase 122 U/L (39-117); Anion Gap 9 (12-20); Aspartate Amino Transferase 23 U/L (5-37); Bilirubin Total 0.6 mg/dL (0.0-1.0); Blood Urea Nitrogen 18 mg/dL (9-16); Calcium 9.2 mg/dL (8.4-10.2); Carbon Dioxide 28 mmol/L (22-29); Chloride 106 mmol/L (96-108); Estimated Glomerular Filt Rate > 60; Glucose Random 72 mg/dL (60-115); Magnesium 1.5 mg/dL (1.6-2.6); Sodium 139 mmol/L (135-145); Total Protein 7.5 g/dL (6.5-8.0)
[2023-06-25 12:13] LABS: Alpha Fetoprotein 0.9 ng/mL (<6.1)
[2023-06-25 14:41] LABS: Tacrolimus Prograf 4.8 NG/ML ((5-20))
== END 2023-06-24 06:48 | disposition home or self-care (01) ==
LOC: HO.LAB 06:47
PROVIDERS: PCP Internal Medicine; Visit Provider Internal Medicine
DX: Z94.4 Liver transplant status (principal); Z85.05 Personal history of malignant neoplasm of liver; Z79.899 Other long term (current) drug therapy
CPT/HCPCS: 36415; 80053; 80197; 82105; 83735; 85025

== ENCOUNTER 2023-07-21 06:10 | Outpatient (REF) | payer OTHER, SELFPAY ==
[2023-07-21 06:24] LABS: MANUAL DIFF FLAG NO
[2023-07-21 07:18] LABS: Basophils Absolute Auto 0.1 X10*3/uL (0.0-0.2); Basophils Percent Auto 1.1 % (0-2); Eosinophils Absolute Auto 0.1 X10*3/uL (0.0-0.4); Eosinophils Percent Auto 1.1 % (0-4); Hematocrit 36.4 % (42.0-52.0); Imm Gran Abs Auto 0.01 X10*3/uL (0.00-0.03); Imm Gran Pct Auto 0.2 % (0.0-0.4); Lymphocytes Absolute Auto 1.5 X10*3/uL (1.2-4.9); Lymphocytes Percent Auto 33.3 % (20-40); Mean Corpuscular HGB Conc 35.7 g/dl (31.0-36.0); Mean Corpuscular Hemoglobin 29.6 pg (27.0-33.0); Mean Corpuscular Volume 82.9 fL (80.0-98.0); Mean Platelet Volume 11.3 fL (9.4-12.4); Monocytes Absolute Auto 0.5 X10*3/uL (0.1-1.2); Monocytes Percent Auto 11.2 % (2-11); Neutrophils Absolute Auto 2.3 x10*3/uL (2.0-8.3); Neutrophils Percent Auto 53.1 % (45-73); Platelet Count 102 X10*3/uL (160-400); Red Blood Count 4.39 X10*6/uL (4.60-5.80); Red Cell Distribution Width 12.5 % (11.0-16.0); White Blood Count 4.4 X10*3/uL (4.8-10.8)
[2023-07-21 07:49] LABS: Alanine Aminotransferase 36 U/L (0-40); Albumin Level 3.9 g/dL (3.5-5.0); Alkaline Phosphatase 112 U/L (39-117); Anion Gap 10 (12-20); Aspartate Amino Transferase 26 U/L (5-37); Bilirubin Total 0.5 mg/dL (0.0-1.0); Blood Urea Nitrogen 17 mg/dL (9-16); Calcium 8.8 mg/dL (8.4-10.2); Carbon Dioxide 25 mmol/L (22-29); Chloride 108 mmol/L (96-108); Estimated Glomerular Filt Rate > 60; Glucose Random 148 mg/dL (60-115); Magnesium 1.6 mg/dL (1.6-2.6); Potassium 4.6 mmol/L (3.3-5.1); Sodium 138 mmol/L (135-145); Total Protein 6.5 g/dL (6.5-8.0)
[2023-07-22 18:14] LABS: Tacrolimus Prograf 5.2 mcg/L
[2023-07-24 13:03] LABS: Alpha Fetoprotein 1.1 ng/mL (<6.1)
== END 2023-07-21 06:11 | disposition home or self-care (01) ==
LOC: HO.LABR 06:10
PROVIDERS: PCP Internal Medicine; Visit Provider Internal Medicine
DX: Z85.05 Personal history of malignant neoplasm of liver (principal); Z94.4 Liver transplant status; Z79.899 Other long term (current) drug therapy
CPT/HCPCS: 36415; 80053; 80197; 82105; 83735; 85025

== ENCOUNTER 2023-08-19 06:00 | Outpatient (REF) | payer OTHER, SELFPAY ==
[2023-08-19 06:17] LABS: MANUAL DIFF FLAG NO
[2023-08-19 07:34] LABS: Basophils Percent Auto 0.6 % (0-2); Eosinophils Absolute Auto 0.1 X10*3/uL (0.0-0.4); Eosinophils Percent Auto 1.6 % (0-4); Hematocrit 37.6 % (42.0-52.0); Hemoglobin 13.4 g/dl (14.0-18.0); Imm Gran Abs Auto 0.02 X10*3/uL (0.00-0.03); Imm Gran Pct Auto 0.4 % (0.0-0.4); Lymphocytes Absolute Auto 1.7 X10*3/uL (1.2-4.9); Lymphocytes Percent Auto 32.9 % (20-40); Mean Corpuscular HGB Conc 35.6 g/dl (31.0-36.0); Mean Corpuscular Hemoglobin 29.6 pg (27.0-33.0); Mean Platelet Volume 11.5 fL (9.4-12.4); Monocytes Absolute Auto 0.5 X10*3/uL (0.1-1.2); Monocytes Percent Auto 10.6 % (2-11); Neutrophils Absolute Auto 2.7 x10*3/uL (2.0-8.3); Neutrophils Percent Auto 53.9 % (45-73); Platelet Count 113 X10*3/uL (160-400); Red Blood Count 4.53 X10*6/uL (4.60-5.80); Red Cell Distribution Width 12.8 % (11.0-16.0); White Blood Count 5.1 X10*3/uL (4.8-10.8)
[2023-08-19 08:03] LABS: Alanine Aminotransferase 35 U/L (0-40); Albumin Level 4.2 g/dL (3.5-5.0); Alkaline Phosphatase 110 U/L (39-117); Anion Gap 12 (12-20); Aspartate Amino Transferase 24 U/L (5-37); Bilirubin Total 0.7 mg/dL (0.0-1.0); Blood Urea Nitrogen 19 mg/dL (9-16); Calcium 9.4 mg/dL (8.4-10.2); Carbon Dioxide 25 mmol/L (22-29); Chloride 105 mmol/L (96-108); Estimated Glomerular Filt Rate > 60; Glucose Random 139 mg/dL (60-115); Magnesium 1.6 mg/dL (1.6-2.6); Potassium 4.5 mmol/L (3.3-5.1); Sodium 137 mmol/L (135-145); Total Protein 6.9 g/dL (6.5-8.0)
[2023-08-20 10:13] LABS: Tacrolimus Prograf 5.4 mcg/L
[2023-08-20 14:03] LABS: Alpha Fetoprotein 1.2 ng/mL (<6.1)
== END 2023-08-19 06:01 | disposition home or self-care (01) ==
LOC: HO.LABR 06:00
PROVIDERS: PCP Internal Medicine; Visit Provider Internal Medicine
DX: Z94.4 Liver transplant status (principal); Z79.899 Other long term (current) drug therapy; Z85.05 Personal history of malignant neoplasm of liver
CPT/HCPCS: 36415; 80053; 80197; 82105; 83735; 85025

== ENCOUNTER 2023-09-04 08:55 | Outpatient (AMB) | payer OTHER, SELFPAY ==
--- NOTE | 2023-09-04 08:55 | MHC.OFFVIS ---
Intake Visit Reasons: erectile dys follow up Intake Note: Pt needs automated access systems technician Labor Delivery Specialist Required: Yes Allergies No Known Allergies [No Known Allergies*] Allergy (Verified 09/04/23 08:56) HPI Comments Details: Edward is a male. He is a patient of . He seen for the following urologic conditions - erectile dysfunction Last seen in office 2 and half years ago Citizen Of [place] interpretation provided by qualified medical receptionist assistant in office Telemedicine Evaluation 15 min Consultation DoxLineaQuattro Jeanette Video Prior prescription provided for 10 mg Cialis to try daily No longer working Discussed options including injections, vacuum pump and implantation He can not afford injections Information about vacuum pump provided Will be seen in office in 3 months to discuss possible prosthetic Erectile dysfunction Longstanding Had liver transplant in mid 2020 Has been using 200 mg of Viagra with minimal success Associated symptoms including weakness of stream and incomplete bladder emptying PFSH Medical History Hx of hepatitis Anxiety and depression Tubular adenoma of colon Diabetes 1.5, managed as type 2 Hx of substance abuse GERD (gastroesophageal reflux disease) Surgical History History of local excision of skin lesion (04/16/23) Hx of colonoscopy Hx of esophagogastroduodenoscopy History of open reduction and internal fixation (ORIF) procedure History of appendectomy S/P liver transplant Social History Household Members: None Alcohol intake: never Patient Tobacco Use Status: Never used Tobacco Current occupational status: disabled Review of Systems Const All systems reviewed & are unremarkable except as noted in HPI and below Reports no additional complaints Resp Reports no additional complaints GI Reports no additional complaints Reports as per HPI Musc Reports no additional complaints Physical Exam Telemedicine evaluation Appropriate responses Regular breathing rate and rhythm HEENT Head: Yes normal to inspection Ears: hearing grossly normal bilaterally Eyes General: appearance normal, both eyes and all related structures Neck Neck: Yes normal visual inspection Chest Chest palpation & inspection: normal inspection of the chest Resp Effort & Inspection: normal respiratory effort and able to speak in complete sentences Telehealth Telehealth Telehealth Platform: [employer] Location of provider rendering services: practice address Location of patient: address on file Patient Identification confirmed using: Name, : Yes Telehealth method: video Patient verbally consented to treatment: Yes Patient verbally consented to billing insurance company: Yes Patient informed of any privacy concerns related to visit: Yes Minutes spent on Phone/Video with Pt.: 15 Assessment & Plan Assessment & Plan (1) Erectile dysfunction due to arterial insufficiency: Comment: Trial 10 mg tadalafil daily Code(s): N52.01 - Erectile dysfunction due to arterial insufficiency Category: Medical Plan Three-month follow-up Patient Instructions: Imaging studies, laboratory and physical exam results were discussed and reviewed in detail. No major barriers to patient understanding were identified. An opportunity to ask questions regarding the treatment plan was provided. All questions were answered. The patient expressed understanding and agreement with the above treatment plan. The patient is aware they should contact our office by phone for worsening of their current condition or the appearance of new urologic symptoms. Compliance is encouraged with any medications and followup testing that is ordered. It is a privilege to participate in the urologic care of your patient. If you have any questions or concerns regarding treatment for the above conditions, or other urologic issues, please do not hesitate to contact me. The office telephone contact is [phone]. This note is constructed using voice recognition software. While every effort has been made to ensure accuracy accounting recruiter errors may have been included. Yours sincerely, Dr Leonidas Miranda MD, [facility] Providers of Expert, Compassionate Care for the Genitourinary System Coding Level of Care Code Tele Est Pt Level 3 (12727) Diagnoses Erectile dysfunction due to arterial insufficiency N52.01
--- OUTSIDE RECORDS SUMMARY | 2023-09-04 08:57 | XMS_ITS | Continuity of Care Document ---
Author Organization [facility] ter Address [address] [place] [id number]- Care Team Providers Care Ordnance Engineering Technician Name Role Phone Maria Del Rosario LONG, Agustin Moran Primary Care Physi cindy Encounter [facility] Date(s): 05/21/23 - 05/21/[address] [id number] Allergies, Adverse Reactions, Alerts No Known Allergies Medications cholecalciferol 2000 intl units oral tablet TOME OLINDA TABLETA TODOS LOS D Start Date: 07/30/21 Status: Ordered Daily Stacy oral tablet TOME OLINDA TABLETA TODOS LOS D Start Date: 07/30/21 Status: Ordered Freestyle savana 2 [place] Freestyle savana 2 [place], See Instructions, # 1 pack/packet, Refills 0, [...] Lantus Solostar Pen 100 units/mL subcutaneous solution See Instructions, INJECT 20 UNITS SUBCUTANEOUSLY EVERY DAY AT BEDTIME, # 15 Unknown, 2 Refills, Maintenance, 03/10/23 8:04:00 EST, [facility]/pharmacy #[id number], 170.18, cm, 09/25/22 8:24:00 EDT, Height Start Date: 03/10/23 Status: Ordered Melatonin = 5 mg, Daily at bedtime, 0 Refills, Maintenance, 01/29/19 18:06:24 EDT Start Date: 01/29/19 Status: Ordered NovoLOG FlexPen 100 units/mL subcutaneous solution See Instructions, e11.65, insulin sliding scale uo to 60 units a day, # 30 mL, 6 Refills, Maintenance, 04/17/22 14:49:00 EST, Solution, [facility]/pharmacy #[id number], Partial fill upon patient request if [...] Team Personnel Name: Lorraine Rojas RN Position: [facility] RN Member Role: Primary Care Nurse Name: Maria Del Rosario LONG, Agustin Moran Position: [facility] Outreach Member Role: PCP Address: Address: [address] [place] [address]- Name: Aleyda Arias RN Position: [facility] RN Member Role: Primary Care Nurse Address: Address: [address] [place] [id number]- Name: Radha Lacy RN Position: [facility] RN Member Role: Primary Care Nurse Care Team Related Persons Name: BRETT ALLEN Address: home [address] [address] Name: ANIBAL LUONG Address: home [address] [place] [address]
--- OUTSIDE RECORDS SUMMARY | 2023-09-04 08:58 | XMS_ITS | Continuity of Care Document ---
Author Organization [facility] Address [address] [place] [address]- Care Team Providers Care Cath Laboratory Technician Name Role Phone Maria Del Rosario LONG, Agustin Moran Primary Care Physi cindy Encounter [facility] Date(s): 07/29/23 - 08/28/23 [facility] [address] [place] [id number] Allergies, Adverse Reactions, Alerts No Known Allergies Medications cholecalciferol 2000 intl units oral tablet TOME OLINDA TABLETA TODOS LOS D Start Date: 07/30/21 Status: Ordered Daily Stacy oral tablet TOME OLINDA TABLETA TODOS LOS D Start Date: 07/30/21 Status: Ordered Freestyle savana 2 [place] Freestyle savana 2 [place], See Instructions, # 1 pack/packet, Refills 0, [...] levels. change every 14 days Dx E11.9, 08/24/23 8:45:00 EDT, Supply, 170.18, cm, 04/21/23 11:40:00 EST, Height Start Date: 08/24/23 Status: Ordered gabapentin 300 mg oral capsule TAKE 1 CAPSULE BY MOUTH IN THE MORNING AND NOON AND 2 CAPSULES AT BEDTIME Start Date: 07/30/21 Status: Ordered Insulin Syringe, BD Ultra-Fine 0.3 cc 31 G x 8 mm (5/16in) See Instructions, # 100 each, Refills 1, Tot. Refills 1, Maintenance, e11.9 for use with insulin vials until you have changed over to the pens., 07/30/23 8:23:00 EDT, Supply, 170.18, cm, 04/21/23 11:40:00 EST, Height Start Date: 07/30/23 Status: Ordered Lantus Solostar Pen 100 units/mL subcutaneous solution See Instructions, INJECT 20 UNITS SUBCUTANEOUSLY EVERY DAY AT BEDTIME, # 15 Unknown, 2 Refills, Maintenance, 03/10/23 8:04:00 EST, [facility]pharmacy #[id number], 170.18, cm, 09/25/22 8:24:00 EDT, Height [...] opioid drug. Start Date: 07/30/21 Status: Ordered Pen [place], 31 G x 5 mm BD Ultra Fine III See Instructions, # 150 each, Refills 11, Tot. Refills 11, Maintenance, e11.9 use with insulin pens4 times daily as directed for subcutaneous injection, 07/30/23 8:21:00 EDT, Supply, 170.18, cm, 04/21/23 11:40:00 EST, Height Start Date: 07/30/23 Status: Ordered spironolactone 50 mg oral tablet [...] Maria Del Rosario LONG, Agustin Moran Position: [facility] Outreach Member Role: PCP Address: Address: [address] [place] [address]- Name: Radha Lacy RN Position: [facility] SN RN Member Role: Primary Care Nurse Care Team Related Persons Name: BRETT ALLEN Address: home [address] Name: ANIBAL LUONG Address: home [address] [place], [place]
--- OUTSIDE RECORDS SUMMARY | 2023-09-04 08:58 | XMS_ITS | Continuity of Care Document ---
Author Organization [facility] Address [address] [place] [id number]- Care Team Providers Care Medical I D Sales Name Role Phone Maria Del Rosario LONG, Agustin Moran Primary Care Physi cindy Encounter [facility] Date(s): 04/21/23 - 05/21/23 [facility] [address] [place] [address] Attending Physician: Maritza Carreon Admitting Physician: Admtr, Ar8 Referring Physician: Admtr, Ar8 Allergies, Adverse Reactions, Alerts No Known Allergies Medications cholecalciferol 2000 intl units oral tablet TOME OLINDA TABLETA TODOS LOS D Start Date: 07/30/21 Status: Ordered Daily Stacy oral tablet TOME OLINDA TABLETA TODOS LOS D Start Date: 07/30/21 Status: Ordered Freestyle savana 2 [place] Freestyle savana 2 [place], See Instructions, # 1 pack/packet, Refills 0, [...] Team Personnel Name: Lorraine Rojas RN Position: [facility] RN Member Role: Primary Care Nurse Name: Maria Del Rosario LONG, Agustin Moran Position: [facility] Outreach Member Role: PCP Address: Address: [address] [place] [address]- Name: Aleyda Arias RN Position: [facility] RN Member Role: Primary Care Nurse Address: Address: [address] [place] [address]- Name: Radha Lacy RN Position: [facility] SN RN Member Role: Primary Care Nurse Care Team Related Persons Name: BRETT ALLEN Address: home [address] [address] Name: ANIBAL LUONG Address: home [address] [place], [place]
--- OUTSIDE RECORDS SUMMARY | 2023-09-04 08:58 | XMS_ITS | Continuity of Care Document ---
Author Organization [facility] Address [address] [place] [address]- Care Team Providers Care Drier Belt Conveyor Name Role Phone Maria Del Rosario LONG, Agustin Moran Primary Care Physi cindy Encounter [facility] Date(s): 07/30/23 - 08/29/23 [facility] [address] [place] [id number] Allergies, Adverse Reactions, Alerts No Known Allergies Medications cholecalciferol 2000 intl units oral tablet TOME OLINDA TABLETA TODOS LOS D Start Date: 07/30/21 Status: Ordered Daily Stacy oral tablet TOME OLINDA TABLETA TODOS LOS D Start Date: 07/30/21 Status: Ordered Freestyle savana 2 [place] Freestyle savana 2 [place], See Instructions, # 1 pack/packet, Refills 0, [...] drug. Start Date: 07/30/21 Status: Ordered Pen [place], 31 G x 5 mm BD Ultra [...] Maria Del Rosario LONG, Agustin Moran Position: [facility] Outreach Member Role: PCP Address: Address: [address] [place] [address]- Name: Radha Lacy RN Position: [facility] SN RN Member Role: Primary Care Nurse Care Team Related Persons Name: BRETT ALLEN Address: home [address] Name: ANIBAL LUONG Address: home [address] [place], [place]
== END 2023-09-04 09:53 | disposition home or self-care (01) ==
LOC: HO.HUSH 08:55
PROVIDERS: PCP Internal Medicine; Visit Provider Urology
DX: N52.01 Erectile dysfunction due to arterial insufficiency (principal)
CPT/HCPCS: 99213

== ENCOUNTER → 2023-09-04 08:55 | Outpatient (BNVA) | payer OTHER, SELFPAY | PROVIDERS: PCP Internal Medicine; Visit Provider Urology ==

== ENCOUNTER 2023-09-12 12:01 | Emergency (ER) | payer OTHER, SELFPAY ==
--- NOTE | ~2023-09-12 | CT_ITS ---
EXAMINATION: CT ABDOMEN AND PELVIS WITHOUT CONTRAST CLINICAL INFORMATION: Upper abdominal pain. History of liver transplantation COMPARISON: 07/19/2020 TECHNIQUE: Multidetector volumetric imaging was performed from the superior aspect of the liver through the pubic symphysis. Sagittal and coronal reformatted images were obtained on the technologist's workstation. This CT examination was performed using dose optimization techniques as appropriate, variously including the following: *Automated exposure control *Adjustment of mA and/or kV according to patient size (this includes techniques or standardized protocols for targeted exams where dose is matched to indication/reason for exam; i.e. extremities or head) *Use of iterative reconstruction technique DLP: 697 mGy-cm FINDINGS: LUNG BASES: Scattered groundglass opacities. Eventration of the right posterior hemidiaphragm without a defect. LIVER, GALLBLADDER, AND BILIARY TREE: Post transplant changes with clips noted. On this nonenhanced study, there is no gross biliary ductal dilatation or focal mass. Gallbladder appears to be absent. PANCREAS: Pancreatic parenchyma remains severely atrophic within the neck body and tail with pancreatic duct does not appear dilated and there is no discrete lesion seen. Uncinate process intact. SPLEEN: Unremarkable. ADRENAL GLANDS: Unremarkable. KIDNEYS AND URETERS: The kidneys are normal in size, shape, and attenuation. No hydronephrosis, hydroureter, or calculi seen. No perinephric stranding. BLADDER: Unremarkable. GASTROINTESTINAL TRACT: The colon is fluid-filled with air-fluid levels. Stomach is moderately distended. No evidence for any obstruction. Small bowel is also fluid-filled and moderately prominent. Measures up to 3 cm. No bowel wall thickening. No ascites. ABDOMINAL WALL: No significant hernia is appreciated. LYMPH NODES: Normal. VASCULAR: Unremarkable. PELVIC VISCERA: Unremarkable. OSSEOUS STRUCTURES: Unremarkable. CT/CT abdomen pelvis wo IV con IMPRESSION: 1. Nonspecific bowel gas pattern with fluid-filled small and large bowel loops. Correlate with any enterocolitis/diarrheal illness. No obstruction. 2. Post transplant changes. No gross biliary dilatation. 3. Severe atrophy of the pancreas without any discrete lesion on this nonenhanced study. Fleischner guidelines were followed.
[2023-09-12 12:28] VITALS: BP 150/91; PULSE 102; RESP 16; TEMP 36.6; O2SAT 97; BMI 31.5
--- NOTE | 2023-09-12 12:28 | ED_ITS ---
HPI - Abdominal Pain General Chief Complaint: Abdominal Pain Stated Complaint: vomiting diarrhea abd pain Time Seen by Provider: 09/12/23 17:32 Source: patient Mode of arrival: ambulatory Limitations: no limitations History of Present Illness HPI narrative: Patient with history of alcoholic liver disease Status post liver transplant 07/2019 on tacrolimus status post rejection in 2020 treated with steroids was is in good health seen hepatic specialist about 3 months ago and plan to have CT scan next month comes here for nausea vomiting diarrhea for last 2 days had multiple bouts of loose bowels and vomited twice also ago upper abdominal pain feels slightly bloated no fever no chills patient had pork shops night before so far he had 5 watery stool Related Data Home Medications ?Medication ?Instructions ?Recorded ?Confirmed ferrous sulfate 325 mg (65 mg 325 mg PO DAILY 07/27/20 04/16/23 iron) tablet magnesium oxide 400 mg (241.3 mg 400 mg PO DAILY 07/27/20 04/16/23 magnesium) tablet (MagOx) insulin aspart U-100 100 unit/mL 10 unit subcut TID 06/21/21 04/16/23 (3 mL) subcutaneous pen (Novolog FlexPen U-100 Insulin aspart) insulin glargine 100 unit/mL (3 20 unit subcut BEDTIME 06/21/21 04/16/23 mL) subcutaneous pen (Lantus Solostar U-100 Insulin) multivitamin with folic acid 400 1 tab PO DAILY 06/21/21 04/16/23 mcg tablet (Daily-Stacy (with folic acid)) tramadol 50 mg tablet 1 tab PO Q8H PRN Pain 06/21/21 04/16/23 zolpidem 10 mg tablet 1 tab PO BEDTIME PRN Sleep 06/21/21 04/16/23 blood sugar diagnostic (FreeStyle #10 ea 07/02/21 03/17/23 Lite Strips) cholecalciferol (vitamin D3) 50 50 mcg PO DAILY 07/02/21 04/16/23 mcg (2,000 unit) tablet (Vitamin D3) gabapentin 300 mg capsule 0 mg PO 07/02/21 03/17/23 omeprazole 20 mg capsule,delayed 20 mg PO DAILY 07/02/21 04/16/23 release tacrolimus 1 mg capsule, 1 mg PO Q12H 02/25/23 04/16/23 immediate-release Previous Rx's ?Medication ?Instructions ?Recorded methocarbamol 750 mg tablet 750 mg PO TID PRN pain (scale 09/20/20 score 4-6) #20 tabs hydrocodone 5 mg-acetaminophen 325 1 tab PO Q4-6H PRN pain #30 tabs 04/16/23 mg tablet ondansetron 4 mg disintegrating 4 mg PO Q6-8H PRN nausea and 09/12/23 tablet vomiting #7 tabs Allergies Allergy/AdvReac Type Severity Reaction Status Date / Time No Known Allergies Allergy Verified 09/12/23 12:32 [No Known Allergies*] [facility] Past Medical History Medical History Hx of hepatitis Anxiety and depression Tubular adenoma of colon Diabetes 1.5, managed as type 2 Hx of substance abuse GERD (gastroesophageal reflux disease) Surgical History History of local excision of skin lesion (04/16/23) Hx of colonoscopy Hx of esophagogastroduodenoscopy History of open reduction and internal fixation (ORIF) procedure History of appendectomy S/P liver transplant Social History Social History Household Members: None Alcohol intake: never Patient Tobacco Use Status: Never used Tobacco Advance Directives: No Advance Directives Information Provided: No Current occupational status: disabled Physical Exam ED Vital Signs: Vital Signs - 24 hr 09/12/23 12:28 09/12/23 16:47 09/12/23 19:37 Temperature 97.9 F 98.4 F 98.5 F Pulse Rate 102 H 75 81 Respiratory Rate 16 18 18 Blood Pressure 150/91 H 122/86 129/87 Pulse Oximetry 97 96 95 Oxygen Delivery Method Room Air Room Air Room Air BMI result Body Mass Index 31.5 Course Course Course Narrative: This is an RME: Additional HPI, ROS, PE not included below will be deferred to primary provider. RME assessment and note performed by: Radha Julian PA-C This is a 58 year old male, with a hx of liver transplant in 2020 at [facility], anxiety, depression , diabetes, GERD, hepatitis, substance abuse, who presents to the ER with complaints of abdominal pain, nausea, vomiting and diarrhea since yesterday. No chest pain or shortness for breath. Plan: Labs, UA, EKG, further ER evaluation needed. Medical Decision Making Medical Decision Making [facility] Narrative: Patient's likely will Clostridium perfringens infection happen after eating pork day before symptoms started patient also has MASSIMO from fluid loss was given IV fluids advised to follow with PCP patient is feeling much better at the time of discharge Differential Diagnosis Differential Diagnoses: The differential diagnosis associated with the presentation includes Take your gastroenteritis/food poisoning/Clostridium perfringens infection/viral infection Admission/Observation Consideration of admission/observation: Escalation of care including admission/observation considered Lab Data [facility] Lab Attestation statement: I reviewed the patient's lab results. 09/12/23 13:01 09/12/23 13:01 Labs: Lab Results 09/12/23 Range/Units 13:01 WBC 8.3 (4.8-10.8) X10*3/uL RBC 5.42 (4.60-5.80) X10*6/uL Hgb 16.2 D (14.0-18.0) g/dl Hct 45.0 (42.0-52.0) % MCV 83.0 (80.0-98.0) fL MCH 29.9 (27.0-33.0) pg MCHC 36.0 (31.0-36.0) g/dl RDW 13.0 (11.0-16.0) % Plt Count 156 L D (160-400) X10*3/uL MPV 11.0 (9.4-12.4) fL Immature Gran % (Auto) 0.5 H (0.0-0.4) % Neut % (Auto) 87.3 H (45-73) % Lymph % (Auto) 8.3 L (20-40) % [place] % (Auto) 3.7 (2-11) % Eos % (Auto) 0.0 (0-4) % Baso % (Auto) 0.2 (0-2) % Lymph # (Auto) 0.7 L (1.2-4.9) X10*3/uL [place] # (Auto) 0.3 (0.1-1.2) X10*3/uL Eos # (Auto) 0.0 (0.0-0.4) X10*3/uL Baso # (Auto) 0.0 (0.0-0.2) X10*3/uL Abs Immat Gran (auto) 0.04 H (0.00-0.03) X10*3/uL Absolute Neuts (auto) 7.3 (2.0-8.3) x10*3/uL Absolute Nucleated RBC 0.000 (0.0-0.012) X10*3/uL Nucleated RBC % (auto) 0.0 (0.0-0.2) /100WBC Sodium 137 (135-145) mmol/L Potassium 4.7 (3.3-5.1) mmol/L Chloride 103 (96-108) mmol/L Carbon Dioxide 23 (22-29) mmol/L Anion Gap 16 (12-20) BUN 32 H (9-16) mg/dL Creatinine 1.91 H (0.5-1.4) mg/dL Estim Creat Clear Calc 44.8 Estimated GFR 36 Random Glucose 233 H (60-115) mg/dL Calcium 10.0 D (8.4-10.2) mg/dL Magnesium 1.7 (1.6-2.6) mg/dL Total Bilirubin 0.6 (0.0-1.0) mg/dL Direct Bilirubin 0.2 (0.0-0.5) mg/dL AST 55 H (5-37) U/L ALT 75 H (0-40) U/L Alkaline Phosphatase 150 H (39-117) U/L Troponin I High Sens 3.7 (<3.5-35.0) ng/L Total Protein 8.5 H (6.5-8.0) g/dL Albumin 5.1 H (3.5-5.0) g/dL Lipase 7 L (8-78) U/L Influenza Type A (PCR) NEGATIVE (Negative) Influenza Type B (PCR) NEGATIVE (Negative) RSV RNA Qual (PCR) NEGATIVE (Negative) SARS-CoV-2 RNA (RT-PCR) NEGATIVE (Negative) Independent Interpretation I performed an independent interpretation of an: CT Scan Radiology Impression Discussion of test interpretation with radiology: I have reviewed the radiologist's reading. Radiologist Impression: CT/CT abdomen pelvis wo IV con IMPRESSION: 1. Nonspecific bowel gas pattern with fluid-filled small and large bowel loops. Correlate with any enterocolitis/diarrheal illness. No obstruction. 2. Post transplant changes. No gross biliary dilatation. 3. Severe atrophy of the pancreas without any discrete lesion on this nonenhanced study. Fleischner guidelines were followed. Medications Administered Discontinued Medications Generic Name Dose Route Start Last Admin Trade Name Freq PRN Reason Stop Dose Admin Sodium Chloride 1,000 mls @ 999 mls/hr 09/12/23 17:51 09/12/23 20:00 Ns IV 09/12/23 18:51 Infused .Q1H1M ONE Infusion Loperamide HCl 2 mg 09/12/23 21:33 09/12/23 22:00 Loperamide Hcl 2 Mg Capsule PO 09/12/23 21:34 2 mg ONCE ONE Administration Morphine Sulfate 4 mg 09/12/23 18:10 09/12/23 18:12 Morphine Sulfate 4 Mg/Ml Cartridge IVPUSH 09/12/23 18:11 4 mg ONCE ONE Administration Protocol Ondansetron HCl 4 mg 09/12/23 17:51 09/12/23 18:12 Ondansetron Hcl 4 Mg/2 Ml Vial IVPUSH 09/12/23 17:52 4 mg ONCE ONE Administration Discharge Plan Discharge Clinical Impression: Acute gastroenteritis Patient Disposition: Home, Self-Care Instructions: Gastroenteritis (ED) Additional Instructions: Likely have infection from Clostridium perfringens which is self-limited and gets better in 3-4 days Drink plenty of fluids Medicine for nausea as advised Prescriptions: New ondansetron 4 mg tablet,disintegrating 4 mg PO Q6-8H PRN (Reason: nausea and vomiting) Qty: 7 0RF No Action methocarbamol 750 mg tablet 750 mg PO TID PRN (Reason: pain (scale score 4-6)) Qty: 20 0RF tramadol 50 mg tablet 1 tab PO Q8H PRN (Reason: Pain) zolpidem 10 mg tablet 1 tab PO BEDTIME PRN (Reason: Sleep) insulin aspart U-100 [Novolog FlexPen U-100 Insulin] 100 unit/mL (3 mL) insulin pen 10 unit subcut TID insulin glargine [Lantus Solostar U-100 Insulin] 100 unit/mL (3 mL) insulin pen 20 unit subcut BEDTIME multivitamin with folic acid [Daily-Stacy (with folic acid)] 400 mcg tablet 1 tab PO DAILY hydrocodone-acetaminophen 5-325 mg tablet 1 tab PO Q4-6H PRN (Reason: pain) Qty: 30 0RF Rx Instructions: Partial Fill upon patient request. magnesium oxide [MagOx] 400 mg (241.3 mg magnesium) tablet 400 mg PO DAILY ferrous sulfate 325 mg (65 mg iron) tablet 325 mg PO DAILY gabapentin 300 mg capsule 0 mg PO (DME) FreeStyle Lite Strips Strip See Rx Instructions Not Applicable TID Qty: 10 Rx Instructions: As directed cholecalciferol (vitamin D3) [Vitamin D3] 50 mcg (2,000 unit) tablet 50 mcg PO DAILY omeprazole 20 mg capsule,delayed release(DR/EC) 20 mg PO DAILY tacrolimus 1 mg capsule 1 mg PO Q12H Print Language: Yoruba
--- NOTE | 2023-09-12 12:29 | ECG_ITS ---
Test Reason : ABDOMINAL PAIN Blood Pressure : / mmHG Vent. Rate : 076 BPM Atrial Rate : 076 BPM P-R Int : 180 ms QRS Dur : 078 ms QT Int : 348 ms P-R-T Axes : 030 014 036 degrees QTc Int : 391 ms Normal sinus rhythm with sinus arrhythmia Anterior infarct , age undetermined Abnormal ECG When compared with ECG of 12-JUL-2019 10:33, Anterior infarct is now Present Nonspecific T wave abnormality no longer evident in Inferior leads Referred By: Radha Julian Electronically Signed By:Willian Douglas
[2023-09-12 13:11] LABS: MANUAL DIFF FLAG NO
[2023-09-12 13:15] LABS: Basophils Percent Auto 0.2 % (0-2); Hemoglobin 16.2 g/dl (14.0-18.0); Imm Gran Abs Auto 0.04 X10*3/uL (0.00-0.03); Imm Gran Pct Auto 0.5 % (0.0-0.4); Lymphocytes Absolute Auto 0.7 X10*3/uL (1.2-4.9); Lymphocytes Percent Auto 8.3 % (20-40); Mean Corpuscular Hemoglobin 29.9 pg (27.0-33.0); Monocytes Absolute Auto 0.3 X10*3/uL (0.1-1.2); Monocytes Percent Auto 3.7 % (2-11); Neutrophils Absolute Auto 7.3 x10*3/uL (2.0-8.3); Neutrophils Percent Auto 87.3 % (45-73); Platelet Count 156 X10*3/uL (160-400); Red Blood Count 5.42 X10*6/uL (4.60-5.80); White Blood Count 8.3 X10*3/uL (4.8-10.8)
[2023-09-12 13:27] LABS: Alanine Aminotransferase 75 U/L (0-40); Albumin Level 5.1 g/dL (3.5-5.0); Alkaline Phosphatase 150 U/L (39-117); Anion Gap 16 (12-20); Aspartate Amino Transferase 55 U/L (5-37); Bilirubin Direct 0.2 mg/dL (0.0-0.5); Bilirubin Total 0.6 mg/dL (0.0-1.0); Blood Urea Nitrogen 32 mg/dL (9-16); Carbon Dioxide 23 mmol/L (22-29); Chloride 103 mmol/L (96-108); Creatinine Clr Calc Pharmacy 44.8; Estimated Glomerular Filt Rate 36; Glucose Random 233 mg/dL (60-115); Lipase 7 U/L (8-78); Magnesium 1.7 mg/dL (1.6-2.6); Potassium 4.7 mmol/L (3.3-5.1); Sodium 137 mmol/L (135-145); Total Protein 8.5 g/dL (6.5-8.0)
[2023-09-12 13:35] LABS: Troponin-I High Sensitivity 3.7 ng/L (<3.5-35.0)
[2023-09-12 15:21] LABS: Influenza A PCR NEGATIVE (Negative); Influenza B PCR NEGATIVE (Negative); Resp Syncy Virus RNA Qual PCR NEGATIVE (Negative); SARS COV2 PCR INHOUSE NEGATIVE (Negative)
[2023-09-12 16:47] VITALS: BP 122/86; PULSE 75; RESP 18; TEMP 36.9; O2SAT 96
[2023-09-12] MEDS: 0.9 % Sodium Chloride 1,000 ML 999 ML IV (18:08)
[2023-09-12] MEDS: Morphine Sulfate 4 MG/ML CARTRIDGE IVPUSH (18:12)
[2023-09-12] MEDS: ondansetron HCL 4 MG/2 ML VIAL IVPUSH (18:12)
--- NOTE | 2023-09-12 18:17 | PC.NURSE ---
IV established, medicated per the MAR. no obvious sign/symptoms of distress noted at this time. family remains at bedside, call álvarez within reach.
[2023-09-12 19:37] VITALS: BP 129/87; PULSE 81; RESP 18; TEMP 36.9; O2SAT 95
[2023-09-12] MEDS: Loperamide HCl 2 MG CAPSULE PO (22:00)
== END 2023-09-12 22:00 | disposition home or self-care (01) ==
PROVIDERS: Physician Assistant Medical; Emergency Provider Internal Medicine; PCP Internal Medicine
DX: K52.9 Noninfective gastroenteritis and colitis, unspecified (principal); R11.2 Nausea with vomiting, unspecified; E11.9 Type 2 diabetes mellitus without complications; K21.9 Gastro-esophageal reflux disease without esophagitis; Z79.4 Long term (current) use of insulin; Z79.899 Other long term (current) drug therapy; Z94.4 Liver transplant status; Z03.818 Encounter for observation for suspected exposure to other biological agents ruled out
CPT/HCPCS: 0241U; 74176; 80048; 80076; 83690; 83735; 84484; 85025; 93005; 96361; 96374; 96375; 99284; 99285; J2270; J2405

== ENCOUNTER → 2023-09-12 12:29 | Outpatient (BNV) | payer OTHER, SELFPAY | PROVIDERS: Emergency Provider Internal Medicine; PCP Internal Medicine; Visit Provider Internal Medicine Cardiovascular Disease | DX: R94.31 Abnormal electrocardiogram [ECG] [EKG] (principal) | CPT/HCPCS: 93010 ==

== ENCOUNTER 2023-09-18 06:20 | Outpatient (REF) | payer OTHER, SELFPAY ==
[2023-09-18 06:37] LABS: MANUAL DIFF FLAG NO
[2023-09-18 07:43] LABS: Basophils Percent Auto 0.6 % (0-2); Eosinophils Absolute Auto 0.1 X10*3/uL (0.0-0.4); Eosinophils Percent Auto 0.9 % (0-4); Hemoglobin 12.8 g/dl (14.0-18.0); Imm Gran Abs Auto 0.04 X10*3/uL (0.00-0.03); Imm Gran Pct Auto 0.7 % (0.0-0.4); Lymphocytes Absolute Auto 1.6 X10*3/uL (1.2-4.9); Mean Corpuscular HGB Conc 36.6 g/dl (31.0-36.0); Mean Corpuscular Hemoglobin 29.5 pg (27.0-33.0); Mean Corpuscular Volume 80.6 fL (80.0-98.0); Mean Platelet Volume 11.3 fL (9.4-12.4); Monocytes Absolute Auto 0.5 X10*3/uL (0.1-1.2); Monocytes Percent Auto 8.6 % (2-11); Neutrophils Absolute Auto 3.2 x10*3/uL (2.0-8.3); Neutrophils Percent Auto 59.2 % (45-73); Platelet Count 129 X10*3/uL (160-400); Red Blood Count 4.34 X10*6/uL (4.60-5.80); Red Cell Distribution Width 12.5 % (11.0-16.0); White Blood Count 5.4 X10*3/uL (4.8-10.8)
[2023-09-18 08:04] LABS: Alanine Aminotransferase 54 U/L (0-40); Albumin Level 4.2 g/dL (3.5-5.0); Alkaline Phosphatase 145 U/L (39-117); Anion Gap 12 (12-20); Aspartate Amino Transferase 28 U/L (5-37); Bilirubin Total 0.6 mg/dL (0.0-1.0); Blood Urea Nitrogen 19 mg/dL (9-16); Calcium 9.4 mg/dL (8.4-10.2); Carbon Dioxide 22 mmol/L (22-29); Chloride 109 mmol/L (96-108); Estimated Glomerular Filt Rate > 60; Glucose Random 139 mg/dL (60-115); Potassium 4.5 mmol/L (3.3-5.1); Sodium 138 mmol/L (135-145); Total Protein 6.7 g/dL (6.5-8.0)
[2023-09-18 08:12] LABS: Magnesium 1.2 mg/dL (1.6-2.6)
[2023-09-19 17:23] LABS: Tacrolimus Prograf 7.2 mcg/L
[2023-09-22 13:44] LABS: Alpha Fetoprotein 1.2 ng/mL (<6.1)
== END 2023-09-18 06:21 | disposition home or self-care (01) ==
LOC: HO.LAB 06:20
PROVIDERS: Internal Medicine; PCP Internal Medicine
DX: Z94.4 Liver transplant status (principal); Z79.899 Other long term (current) drug therapy; Z85.05 Personal history of malignant neoplasm of liver
CPT/HCPCS: 36415; 80053; 80197; 82105; 83735; 85025

== ENCOUNTER 2023-10-20 06:01 | Outpatient (REF) | payer OTHER, SELFPAY ==
[2023-10-20 06:30] LABS: MANUAL DIFF FLAG NO
[2023-10-20 07:43] LABS: Basophils Percent Auto 0.7 % (0-2); Eosinophils Absolute Auto 0.1 X10*3/uL (0.0-0.4); Eosinophils Percent Auto 2.3 % (0-4); Hematocrit 37.1 % (42.0-52.0); Hemoglobin 13.2 g/dl (14.0-18.0); Imm Gran Abs Auto 0.02 X10*3/uL (0.00-0.03); Imm Gran Pct Auto 0.4 % (0.0-0.4); Lymphocytes Absolute Auto 1.5 X10*3/uL (1.2-4.9); Lymphocytes Percent Auto 25.8 % (20-40); Mean Corpuscular HGB Conc 35.6 g/dl (31.0-36.0); Mean Corpuscular Hemoglobin 29.9 pg (27.0-33.0); Mean Corpuscular Volume 84.1 fL (80.0-98.0); Mean Platelet Volume 11.6 fL (9.4-12.4); Monocytes Absolute Auto 0.6 X10*3/uL (0.1-1.2); Monocytes Percent Auto 10.6 % (2-11); Neutrophils Absolute Auto 3.4 x10*3/uL (2.0-8.3); Neutrophils Percent Auto 60.2 % (45-73); Platelet Count 123 X10*3/uL (160-400); Red Blood Count 4.41 X10*6/uL (4.60-5.80); Red Cell Distribution Width 12.7 % (11.0-16.0); White Blood Count 5.7 X10*3/uL (4.8-10.8)
[2023-10-20 08:01] LABS: Alanine Aminotransferase 37 U/L (0-40); Albumin Level 4.2 g/dL (3.5-5.0); Alkaline Phosphatase 117 U/L (39-117); Anion Gap 13 (12-20); Aspartate Amino Transferase 30 U/L (5-37); Bilirubin Total 0.7 mg/dL (0.0-1.0); Blood Urea Nitrogen 18 mg/dL (9-16); Calcium 9.4 mg/dL (8.4-10.2); Carbon Dioxide 24 mmol/L (22-29); Chloride 106 mmol/L (96-108); Estimated Glomerular Filt Rate > 60; Glucose Random 121 mg/dL (60-115); Magnesium 1.6 mg/dL (1.6-2.6); Potassium 4.6 mmol/L (3.3-5.1); Sodium 138 mmol/L (135-145)
[2023-10-21 13:09] LABS: Alpha Fetoprotein 1.1 ng/mL (<6.1)
[2023-10-23 08:47] LABS: Tacrolimus Prograf 3.6 mcg/L
== END 2023-10-20 06:02 | disposition home or self-care (01) ==
LOC: HO.LABR 06:01
PROVIDERS: PCP Internal Medicine; Visit Provider Internal Medicine
DX: Z94.4 Liver transplant status (principal); Z79.899 Other long term (current) drug therapy; Z85.05 Personal history of malignant neoplasm of liver
CPT/HCPCS: 36415; 80053; 80197; 82105; 83735; 85025

== ENCOUNTER 2023-11-19 06:16 | Outpatient (REF) | payer OTHER, SELFPAY ==
[2023-11-19 07:28] LABS: MANUAL DIFF FLAG NO
[2023-11-19 07:30] LABS: Basophils Percent Auto 0.6 % (0-2); Eosinophils Absolute Auto 0.1 X10*3/uL (0.0-0.4); Eosinophils Percent Auto 1.4 % (0-4); Hematocrit 38.2 % (42.0-52.0); Hemoglobin 13.8 g/dl (14.0-18.0); Imm Gran Abs Auto 0.01 X10*3/uL (0.00-0.03); Imm Gran Pct Auto 0.2 % (0.0-0.4); Lymphocytes Absolute Auto 1.7 X10*3/uL (1.2-4.9); Lymphocytes Percent Auto 33.9 % (20-40); Mean Corpuscular HGB Conc 36.1 g/dl (31.0-36.0); Mean Corpuscular Hemoglobin 30.3 pg (27.0-33.0); Mean Platelet Volume 11.4 fL (9.4-12.4); Monocytes Absolute Auto 0.6 X10*3/uL (0.1-1.2); Monocytes Percent Auto 11.8 % (2-11); Neutrophils Absolute Auto 2.6 x10*3/uL (2.0-8.3); Neutrophils Percent Auto 52.1 % (45-73); Platelet Count 122 X10*3/uL (160-400); Red Blood Count 4.55 X10*6/uL (4.60-5.80); Red Cell Distribution Width 12.7 % (11.0-16.0); White Blood Count 4.9 X10*3/uL (4.8-10.8)
[2023-11-19 07:42] LABS: Alanine Aminotransferase 40 U/L (0-40); Albumin Level 4.4 g/dL (3.5-5.0); Alkaline Phosphatase 122 U/L (39-117); Anion Gap 13 (12-20); Aspartate Amino Transferase 31 U/L (5-37); Bilirubin Total 0.7 mg/dL (0.0-1.0); Blood Urea Nitrogen 16 mg/dL (9-16); Calcium 9.4 mg/dL (8.4-10.2); Carbon Dioxide 22 mmol/L (22-29); Chloride 108 mmol/L (96-108); Estimated Glomerular Filt Rate > 60; Glucose Random 126 mg/dL (60-115); Magnesium 1.7 mg/dL (1.6-2.6); Potassium 4.7 mmol/L (3.3-5.1); Sodium 138 mmol/L (135-145); Total Protein 7.2 g/dL (6.5-8.0)
[2023-11-20 12:14] LABS: Tacrolimus Prograf 5.2 mcg/L
[2023-11-24 06:28] LABS: Alpha Fetoprotein 1.2 ng/mL (<6.1)
== END 2023-11-19 06:17 | disposition home or self-care (01) ==
LOC: HO.LABR 06:16
PROVIDERS: PCP Internal Medicine; Visit Provider Internal Medicine
DX: Z94.4 Liver transplant status (principal); Z79.899 Other long term (current) drug therapy; Z85.05 Personal history of malignant neoplasm of liver
CPT/HCPCS: 36415; 80053; 80197; 82105; 83735; 85025

== ENCOUNTER 2023-11-30 07:36 | Outpatient (REF) | payer OTHER, SELFPAY ==
--- NOTE | ~2023-11-30 | CT_ITS ---
EXAMINATION: CT CHEST WITHOUT CONTRAST CLINICAL INFORMATION: Follow-up pulmonary nodularity COMPARISON: 12/16/2022 TECHNIQUE: Multidetector volumetric CT imaging of the chest was done. Axial MIP volume rendering provided. Sagittal and coronal reformatted images were obtained. This CT examination was performed using dose optimization techniques as appropriate, variously including the following: *Automated exposure control *Adjustment of mA and/or kV according to patient size (this includes techniques or standardized protocols for targeted exams where dose is matched to indication/reason for exam; i.e. extremities or head) *Use of iterative reconstruction technique DLP: 92 mGy-cm FINDINGS: The thoracic inlet and is felt to be within normal limits comparable to previous. The axillary regions are unremarkable. Partially visualized upper abdominal structures demonstrate surgical clips in the portal region. Once again some air within the bile ducts is noted. This area is incompletely seen. The stent observed previously is no longer visualized. Centrally moderate coronary calcifications are once again seen. There is no bulky central adenopathy. This is a noncontrast study but the hilar regions are felt to be comparable. Imaging in the lung perez. Right lung; Stable mild apical scarring. Stable appearing nodularity adjacent to the mediastinal border on image 239. 4 mm. Stable 3 mm nodule on image 244 anterior. Stable appearing 5 mm nodule on image 319. Stable 4 mm nodule pleural-based on image 295. A small satellite area immediately adjacent stable 2 to 3 mm. Stable nodule on image 406 right lower lobe. Measures 4 mm. No acute infiltrate or effusion. Left lung; Stable 3 mm nodule anterior image 144 Stable 3 mm nodule on image 211 centrally. Stable small 3 mm nodule at the left base medially. Image 524 Stable 4 mm pleural-based nodule left medial base image 346 Stable pleural-based 3 mm nodule on image 296 Stable pleural-based nodule measuring 3 mm on image 268 Stable 4 mm nodule on image 407 Review of the bone windows demonstrates stable sclerotic bony lesion involving left rib #9. CT/CT chest wo IV con IMPRESSION: Multiple areas of nodularity once again as described appear stable from previous. Follow-up as per Fleischner criteria. Other findings are as described Electronically signed by: Mark Zarco MD 12/24/2023 12:25 PM EDT
== END 2023-11-30 07:37 | disposition home or self-care (01) ==
LOC: HO.CT 07:36
PROVIDERS: PCP Internal Medicine; Visit Provider Internal Medicine Pulmonary Disease
DX: R91.8 Other nonspecific abnormal finding of lung field (principal)
CPT/HCPCS: 71250

== ENCOUNTER 2024-01-01 08:48 | Outpatient (AMB) | payer OTHER, SELFPAY ==
--- NOTE | 2024-01-01 09:13 | A.OFFVIS_ITS ---
Intake Visit Reasons: 3m follow up-Erectile Dys Intake Note: Patient is present for 3M F.U ERECTILE DYS Urology Medication:NONE Antibiotic Allergy:NONE Blood Thinner:NONE Fitter And Turner Required: No Allergies No Known Allergies [No Known Allergies*] Allergy (Verified 01/01/24 09:14) HPI Comments Details: Edward is a male. He is a patient of . He seen for the following urologic conditions - erectile dysfunction Pakistani interpretation provided by qualified certified medical technician in office Failed high-dose daily Cialis Here for discussion regarding penile prosthetic Prior prescription provided for 10 mg Cialis to try daily No longer working Discussed options including injections, vacuum pump and implantation He can not afford injections Previously information about vacuum pump provided Would like to move ahead with penile prosthetic Risks and benefits particularly prolonged healing and testicular discomfort were discussed Erectile dysfunction Longstanding Had liver transplant in mid 2020 Has been using 200 mg of Viagra with minimal success Associated symptoms including weakness of stream and incomplete bladder emptying PFSH Medical History Hx of hepatitis Anxiety and depression Tubular adenoma of colon Diabetes 1.5, managed as type 2 Hx of substance abuse GERD (gastroesophageal reflux disease) Surgical History History of local excision of skin lesion (04/16/23) Hx of colonoscopy Hx of esophagogastroduodenoscopy History of open reduction and internal fixation (ORIF) procedure History of appendectomy S/P liver transplant Social History Household Members: None Alcohol intake: never Patient Tobacco Use Status: Never used Tobacco Current occupational status: disabled Review of Systems Const Denies chills and Denies fever(s) Card Reports no additional complaints and Denies syncope Resp Denies cough GI Denies abdominal pain and Denies heartburn Reports as per HPI and Denies change in libido Neuro Denies syncope Psych Denies change in libido Endo Denies change in libido Physical Exam Const General: cooperative, healthy appearing, comfortable and no acute distress Orientation/consciousness: patient oriented x3 HEENT Face and sinus: Yes normal facial exam Mouth: moist mucous membranes Neck Neck: Yes normal visual inspection, Yes full ROM and Yes trachea midline Chest Chest palpation & inspection: normal inspection of the chest Resp Effort & Inspection: normal respiratory effort, able to speak in complete sentences and no respiratory distress GI Inspection: Yes normal to inspection Back/Spine/Pelvis Cervical Spine: normal cervical lordosis Thoracic/Lumbar Spine: thoracic and lumbar spine normal to inspection Skin General skin exam: no rashes or lesions noted Neuro General: patient oriented x3, gait normal, tone normal and moves all extremities Extrem General: Yes normal to inspection and Yes capillary refill normal Assessment & Plan Assessment & Plan (1) Erectile dysfunction due to arterial insufficiency: Comment: Trial 10 mg tadalafil daily Code(s): N52.01 - Erectile dysfunction due to arterial insufficiency Category: Medical Plan Risks, benefits and alternatives to therapy were discussed. These include but are not limited to infection, bleeding, damage to local organs and tissues, need for further interventions. Anesthetic risks regarding cardiac arrhythmia, blood clots, and potential mortality were discussed. The patient understands the typical recovery time and the outpatient nature of the procedure. After consideration of these risks the patient gives full informed consent and they wish to move ahead with the procedure. Penile prosthetic Patient Instructions: Imaging studies, laboratory and physical exam results were discussed and reviewed in detail. No major barriers to patient understanding were identified. An opportunity to ask questions regarding the treatment plan was provided. All questions were answered. The patient expressed understanding and agreement with the above treatment plan. The patient is aware they should contact our office by phone for worsening of their current condition or the appearance of new urologic symptoms. Compliance is encouraged with any medications and followup testing that is ordered. It is a privilege to participate in the urologic care of your patient. If you have any questions or concerns regarding treatment for the above conditions, or other urologic issues, please do not hesitate to contact me. The office telephone contact is [phone]. This note is constructed using voice recognition software. While every effort has been made to ensure accuracy prospecting driller errors may have been included. Yours sincerely, Dr Leonidas Miranda MD, [facility] - Urology Providers of Expert, Compassionate Care for the Genitourinary System Coding Level of Care Code Est Pt Level 4 (66021) Diagnoses Erectile dysfunction due to arterial insufficiency N52.01
== END 2024-01-01 09:34 | disposition home or self-care (01) ==
PROVIDERS: PCP Internal Medicine; Visit Provider Urology
DX: N52.01 Erectile dysfunction due to arterial insufficiency (principal)
CPT/HCPCS: 99214

== ENCOUNTER → 2024-01-01 08:48 | Outpatient (BNVA) | payer OTHER, SELFPAY | PROVIDERS: PCP Internal Medicine; Visit Provider Urology | DX: N52.01 Erectile dysfunction due to arterial insufficiency (principal) | CPT/HCPCS: 99212 ==

== ENCOUNTER 2024-01-20 06:02 | Outpatient (REF) | payer OTHER, SELFPAY ==
[2024-01-20 06:24] LABS: MANUAL DIFF FLAG NO
[2024-01-20 08:09] LABS: Basophils Absolute Auto 0.1 X10*3/uL (0.0-0.2); Eosinophils Absolute Auto 0.1 X10*3/uL (0.0-0.4); Eosinophils Percent Auto 1.4 % (0-4); Hematocrit 39.2 % (42.0-52.0); Imm Gran Abs Auto 0.01 X10*3/uL (0.00-0.03); Imm Gran Pct Auto 0.2 % (0.0-0.4); Lymphocytes Absolute Auto 1.6 X10*3/uL (1.2-4.9); Lymphocytes Percent Auto 31.4 % (20-40); Mean Corpuscular HGB Conc 35.7 g/dl (31.0-36.0); Mean Corpuscular Hemoglobin 29.9 pg (27.0-33.0); Mean Corpuscular Volume 83.8 fL (80.0-98.0); Mean Platelet Volume 11.4 fL (9.4-12.4); Monocytes Absolute Auto 0.6 X10*3/uL (0.1-1.2); Monocytes Percent Auto 11.6 % (2-11); Neutrophils Absolute Auto 2.8 x10*3/uL (2.0-8.3); Neutrophils Percent Auto 54.4 % (45-73); Platelet Count 121 X10*3/uL (160-400); Red Blood Count 4.68 X10*6/uL (4.60-5.80); Red Cell Distribution Width 12.6 % (11.0-16.0); White Blood Count 5.1 X10*3/uL (4.8-10.8)
[2024-01-20 08:25] LABS: Alanine Aminotransferase 43 U/L (0-40); Albumin Level 4.4 g/dL (3.5-5.0); Alkaline Phosphatase 110 U/L (39-117); Anion Gap 13 (12-20); Aspartate Amino Transferase 33 U/L (5-37); Bilirubin Total 0.7 mg/dL (0.0-1.0); Blood Urea Nitrogen 16 mg/dL (9-16); Calcium 9.4 mg/dL (8.4-10.2); Carbon Dioxide 25 mmol/L (22-29); Chloride 106 mmol/L (96-108); Estimated Glomerular Filt Rate > 60; Glucose Random 142 mg/dL (60-115); Potassium 4.6 mmol/L (3.3-5.1); Sodium 139 mmol/L (135-145); Total Protein 7.3 g/dL (6.5-8.0)
[2024-01-22 13:02] LABS: Alpha Fetoprotein 1.2 ng/mL (<6.1)
== END 2024-01-20 06:03 | disposition home or self-care (01) ==
LOC: HO.LABR 06:02
PROVIDERS: Internal Medicine; PCP Internal Medicine
DX: Z94.4 Liver transplant status (principal); Z79.899 Other long term (current) drug therapy
CPT/HCPCS: 36415; 80053; 80197; 82105; 85025

== ENCOUNTER 2024-03-03 06:10 | Outpatient (REF) | payer OTHER, SELFPAY ==
[2024-03-03 06:31] LABS: MANUAL DIFF FLAG NO
[2024-03-03 07:56] LABS: Basophils Percent Auto 0.8 % (0-2); Eosinophils Absolute Auto 0.1 X10*3/uL (0.0-0.4); Eosinophils Percent Auto 1.7 % (0-4); Hematocrit 38.4 % (42.0-52.0); Hemoglobin 13.8 g/dl (14.0-18.0); Imm Gran Abs Auto 0.02 X10*3/uL (0.00-0.03); Imm Gran Pct Auto 0.4 % (0.0-0.4); Lymphocytes Absolute Auto 1.6 X10*3/uL (1.2-4.9); Lymphocytes Percent Auto 30.5 % (20-40); Mean Corpuscular HGB Conc 35.9 g/dl (31.0-36.0); Mean Corpuscular Hemoglobin 29.9 pg (27.0-33.0); Mean Corpuscular Volume 83.3 fL (80.0-98.0); Mean Platelet Volume 11.2 fL (9.4-12.4); Monocytes Absolute Auto 0.6 X10*3/uL (0.1-1.2); Monocytes Percent Auto 10.7 % (2-11); Neutrophils Absolute Auto 2.9 x10*3/uL (2.0-8.3); Neutrophils Percent Auto 55.9 % (45-73); Platelet Count 112 X10*3/uL (160-400); Red Blood Count 4.61 X10*6/uL (4.60-5.80); Red Cell Distribution Width 12.9 % (11.0-16.0); White Blood Count 5.3 X10*3/uL (4.8-10.8)
[2024-03-03 08:10] LABS: Alanine Aminotransferase 46 U/L (0-40); Albumin Level 4.2 g/dL (3.5-5.0); Alkaline Phosphatase 108 U/L (39-117); Anion Gap 13 (12-20); Aspartate Amino Transferase 31 U/L (5-37); Bilirubin Total 0.7 mg/dL (0.0-1.0); Blood Urea Nitrogen 18 mg/dL (9-16); Calcium 9.5 mg/dL (8.4-10.2); Carbon Dioxide 23 mmol/L (22-29); Chloride 106 mmol/L (96-108); Estimated Glomerular Filt Rate > 60; Glucose Random 149 mg/dL (60-115); Magnesium 1.6 mg/dL (1.6-2.6); Potassium 4.5 mmol/L (3.3-5.1); Sodium 137 mmol/L (135-145); Total Protein 6.9 g/dL (6.5-8.0)
[2024-03-04 11:13] LABS: Tacrolimus Prograf 4.6 mcg/L
[2024-03-07 12:58] LABS: Alpha Fetoprotein 0.9 ng/mL (<6.1)
== END 2024-03-03 06:11 | disposition home or self-care (01) ==
LOC: HO.LAB 06:10
PROVIDERS: PCP Internal Medicine; Visit Provider Internal Medicine
DX: Z94.4 Liver transplant status (principal); Z85.05 Personal history of malignant neoplasm of liver; Z79.899 Other long term (current) drug therapy
CPT/HCPCS: 36415; 80053; 80197; 82105; 83735; 85025

== ENCOUNTER 2024-03-07 05:41 | Day surgery (SDC) | payer OTHER, SELFPAY ==
[2024-03-03 09:09] VITALS: BMI 33.3
--- NOTE | 2024-03-04 11:52 | P.CONAN_ITS ---
Documented by User: Nell Gan NP 03/04/24 11:58 HPI - Anesthesia Eval Consult details Narrative: 59yo M for Penile Prosthesis Insertion s/p liver transplant 2019 (ETOH cirrhosis) - follows ASS transplant. Stable at 12/2023 office visit [facility] Active Problems Active Problems: All Active Problems Seroma due to trauma (Acute) Sebaceous cyst (Acute) Lipoma of back (Acute) Pulmonary nodules (Acute) Chest wall pain (Acute) Pleural effusion associated with hepatic disorder (Acute) RUQ abdominal pain (Acute) Colon cancer screening (Acute) Erectile dysfunction due to arterial insufficiency (Acute) S/P liver transplant (Acute) GERD (gastroesophageal reflux disease) (Acute) Past Medical History Medical History (Updated 03/03/24 @ 09:10 by Ai Jaeger RN) Liver failure Hx of hepatitis Anxiety and depression Tubular adenoma of colon Diabetes 1.5, managed as type 2 Hx of substance abuse GERD (gastroesophageal reflux disease) Family History Family history of problems with anesthesia: No Surgical History Surgical History (Updated 03/07/24 @ 06:42 by Patricia Elias RN) History of surgery on lower extremity History of local excision of skin lesion (04/16/23) Hx of colonoscopy Hx of esophagogastroduodenoscopy History of open reduction and internal fixation (ORIF) procedure History of appendectomy S/P liver transplant History of Problems with Anesthesia: No Social History Social History Household Members: None Are you a primary child daycare worker to a significant other at home: No Do you presently have visiting nurse or other home services: No Alcohol intake: never Patient Tobacco Use Status: Former Tobacco user Tobacco use type: Cigarette Years Smoked: 15 Smoked in Last 30 Days: No Use of substances other than those prescribed or required for medical reasons: No Have you been hit, kicked, punched, or otherwise hurt by someone within the past year? If so, by whom?: No Are you DNR?: No Advance Directives: No Advance Directives Information Provided: No Advance Directives on File: No Recently lost weight without trying: No How much weight loss: Not applicable Eating poorly because of decreased appetite: No Nutrition screen score: 0 Nutrition Risks: No Nutritional Risk Poor oral hygiene: Yes (upper and lower partials) Current occupational status: disabled Meds Allergies Allergy/AdvReac Type Severity Reaction Status Date / Time No Known Allergies Allergy Verified 03/07/24 06:36 [No Known Allergies*] Home Medications ?Medication ?Instructions ?Recorded ?Confirmed ?Last Taken ?Type magnesium oxide 400 mg (241.3 mg 400 mg PO DAILY 07/27/20 03/07/24 03/07/24 H istory magnesium) tablet (MagOx) insulin aspart U-100 100 unit/mL 4 - 9 unit subcut TIDAC 06/21/21 03/07/24 03/05/24 History (3 mL) subcutaneous pen (Novolog FlexPen U-100 Insulin aspart) insulin glargine 100 unit/mL (3 24 unit subcut BEDTIME 06/21/21 03/07/24 03/06/24 20:00 History mL) subcutaneous pen (Lantus 15 units Solostar U-100 Insulin) multivitamin with folic acid 400 1 tab PO DAILY 06/21/21 03/07/24 Unknown History mcg tablet (Daily-Stacy (with folic acid)) tramadol 50 mg tablet 1 tab PO Q8H PRN Pain 06/21/21 03/07/24 Unknown History zolpidem 10 mg tablet 1 tab PO BEDTIME PRN Sleep 06/21/21 03/07/24 Unknown History blood sugar diagnostic (FreeStyle #10 ea 07/02/21 03/17/23 Unknown History Lite Strips) cholecalciferol (vitamin D3) 50 50 mcg PO DAILY 07/02/21 03/07/24 Unknown History mcg (2,000 unit) tablet (Vitamin D3) omeprazole 20 mg capsule,delayed 20 mg PO DAILY 07/02/21 03/07/24 03/07/24 History release tacrolimus 1 mg capsule, 1 mg PO Q12H 02/25/23 03/07/24 03/07/24 History immediate-release losartan 25 mg tablet 25 mg PO DAILY 03/03/24 03/07/24 02/22/24 History sildenafil 100 mg tablet (Viagra) 100 mg PO DAILY PRN Erectile 03/03/24 03/07/24 Unknown History Dysfunction Exam Height,Weight and Vital Signs: Height 5 ft 7 in Weight 96.4 kg Pertinent Lab Results Pertinent Lab Results: Laboratory Tests 03/03/24 06:28 WBC 5.3 Hgb 13.8 L Hct 38.4 L Plt Count 112 L Sodium 137 Potassium 4.5 Chloride 106 Carbon Dioxide 23 BUN 18 H Creatinine 1.12 A1C 7.5 on 12/2023 at PCP Narrative Narrative: EKG 08/2023 Vent. Rate : 076 BPM Atrial Rate : 076 BPM P-R Int : 180 ms QRS Dur : 078 ms QT Int : 348 ms P-R-T Axes : 030 014 036 degrees QTc Int : 391 ms Normal sinus rhythm with sinus arrhythmia Anterior infarct , age undetermined Abnormal ECG When compared with ECG of 12-JUL-2019 10:33, Anterior infarct is now Present Nonspecific T wave abnormality no longer evident in Inferior leads Assessment and Plan Assessment Anesthesia Assessment: Chart Reviewed Final Anesthetic Review Family History of Problems with Anesthesia: No History of Problems with Anesthesia: No Documented by User: Manasa Shi MD 03/07/24 07:21 [facility] Past Medical History Medical History (Updated 03/03/24 @ 09:10 by Ai Jaeger RN) Liver failure Hx of hepatitis Anxiety and depression Tubular adenoma of colon Diabetes 1.5, managed as type 2 Hx of substance abuse GERD (gastroesophageal reflux disease) Surgical History Surgical History (Updated 03/07/24 @ 06:42 by Patricia Elias RN) History of surgery on lower extremity History of local excision of skin lesion (04/16/23) Hx of colonoscopy Hx of esophagogastroduodenoscopy History of open reduction and internal fixation (ORIF) procedure History of appendectomy S/P liver transplant Social History Social History Household Members: None Are you a primary child daycare worker to a significant other at home: No Do you presently have visiting nurse or other home services: No Alcohol intake: never Patient Tobacco Use Status: Former Tobacco user Tobacco use type: Cigarette Years Smoked: 15 Smoked in Last 30 Days: No Use of substances other than those prescribed or required for medical reasons: No Have you been hit, kicked, punched, or otherwise hurt by someone within the past year? If so, by whom?: No Are you DNR?: No Advance Directives: No Advance Directives Information Provided: No Advance Directives on File: No Recently lost weight without trying: No How much weight loss: Not applicable Eating poorly because of decreased appetite: No Nutrition screen score: 0 Nutrition Risks: No Nutritional Risk Poor oral hygiene: Yes (upper and lower partials) Current occupational status: disabled Meds Allergies Allergy/AdvReac Type Severity Reaction Status Date / Time No Known Allergies Allergy Verified 03/07/24 06:36 [No Known Allergies*] Home Medications ?Medication ?Instructions ?Recorded ?Confirmed ?Last Taken ?Type magnesium oxide 400 mg (241.3 mg 400 mg PO DAILY 07/27/20 03/07/24 03/07/24 History magnesium) tablet (MagOx) insulin aspart U-100 100 unit/mL 4 - 9 unit subcut TIDAC 06/21/21 03/07/24 03/05/24 History (3 mL) subcutaneous pen (Novolog FlexPen U-100 Insulin aspart) insulin glargine 100 unit/mL (3 24 unit subcut BEDTIME 06/21/21 03/07/24 03/06/24 20:00 History mL) subcutaneous pen (Lantus 15 units Solostar U-100 Insulin) multivitamin with folic acid 400 1 tab PO DAILY 06/21/21 03/07/24 Unknown History mcg tablet (Daily-Stacy (with folic acid)) tramadol 50 mg tablet 1 tab PO Q8H PRN Pain 06/21/21 03/07/24 Unknown History zolpidem 10 mg tablet 1 tab PO BEDTIME PRN Sleep 06/21/21 03/07/24 Unknown History blood sugar diagnostic (FreeStyle #10 ea 07/02/21 03/17/23 Unknown History Lite Strips) cholecalciferol (vitamin D3) 50 50 mcg PO DAILY 07/02/21 03/07/24 Unknown History mcg (2,000 unit) tablet (Vitamin D3) omeprazole 20 mg capsule,delayed 20 mg PO DAILY 07/02/21 03/07/24 03/07/24 History release tacrolimus 1 mg capsule, 1 mg PO Q12H 02/25/23 03/07/24 03/07/24 History immediate-release losartan 25 mg tablet 25 mg PO DAILY 03/03/24 03/07/24 02/22/24 History sildenafil 100 mg tablet (Viagra) 100 mg PO DAILY PRN Erectile 03/03/24 03/07/24 Unknown History Dysfunction Exam Airway Mallampati Class: II TM Dist: >3cm Neck ROM: Full Partial: Upper and Lower Heart: rr john Lungs: cta Assessment and Plan Assessment Anesthesia Assessment: Anesthesia Plan Discussed Final Anesthetic Review NPO: Yes ASA Class: II Final Preanesthetic Review: No Changes in Pt Med Stat, Meds/Allgs Chart Reviewed and Consent Obtained/Reviewed Patient Risk: Intermediate Procedure Risk: Low Anesthetic Plan Anesthetic Plan: GA Disposition: Standard PACU
[2024-03-07] VITALS (9 sets, daily range): BP systolic 98–191; BP diastolic 63–100; PULSE 50–70; RESP 16; TEMP 36.2–36.8; O2SAT 95; BMI 31.6
[2024-03-07 06:23] LABS: Glucose, Whole Blood 145 mg/dL (60-115)
[2024-03-07] MEDS: Lactated Ringers 1,000 ML 100 ML IVCONT (06:26)
--- NOTE | 2024-03-07 07:17 | PC.NURSE ---
Dr. Shi at bedside. Aware of hypotension, Patient asymptomatic. BP rechecked, 132/74. Per patient I don't always take my Losartan, only if my blood pressure is high . Last dose of Losartan [address] Shi aware.
--- NOTE | 2024-03-07 07:40 | W.PM.OPN ---
Operative Note Operative Note Date of Service: 03/07/24 Narrative: PreOperative Diagnosis: Erectile dysfunction Post Operative Diagnosis: Erectile dysfunction Procedure: Placement of inflatable penile prosthetic Surgeon: Dr Leonidas Miranda Anesthesia: General Indications for procedure: Progressive erectile dysfunction in setting of diabetes Non responsive to oral or injectable medications. Maximum doses have been trialled. Has completed minimum of 6 weeks with penile vacuum pump in order to maximize potential placement. Is aware of the risks and benefits particularly related to mechanical failure, infection, loss of sensation. Procedure: After informed consent was verified the patient was brought to the operating room and placed in a supine position. Anesthesia was administered per protocol. The patient was shaved with clippers, and prepped with cholhexidine based solution. He was draped in a sterile fashion. Safety pause time-out performed. Since he is a diabetic he was given triple coverage with IV vancomycin, Pip-Tazo and fluconazole per modified guideline. 16 [place] Benjamin catheter was placed on the field. Bladder was drained. [place] retractor with penile support was placed. Local anesthetic infiltrated horizontally 1.5cm proximal from the penoscrotal junction. Dorsal nerve block was placed inferior to the symphsis pubis in the midline and perineal/crural block was placed 1 fingerbreadth lateral to the midline angled at 45 degrees. The penis was placed in a cephalad position using the glans hook on the [place]. A vertical scrotal incision was made at the penoscrotal junction and taken down to the tunica. Dissection was performed 1st on the left side and then on the right side to fully expose the proximal tunica of the corpora. Midline dissection was required to lift off the median attachments. At this point stay hooks were placed in a star shaped pattern. A double row of 3-0 Vicryl stay sutures were placed through the proximal corporal tunica with 1cm spacing and labeled and marked bilaterally. Colored vicryl was placed medial and plain vicryl lateral. Blue towels were used to isolate left from right. The same procedure was performed first on the left and then on the right side. The next step was an incision was made between the 2 rows of stay sutures through the tunica using a 15 Blade. This was approximately 2.5 cm in length. The left was completed and then the right side. Minimal bleeding was seen supporting the finding of developing corporal fibrosis. The stay hooks were removed from the [place]. The penile support was removed. Hegar dilators were used in stepwise increasing size to dilate the corporal bodies in a proximal and distal fashion until it could accept a 13 Hegar dilator. Care was taken to reach the sacrum on the posterior dilation and the mid-glans position on the distal dilation. Dilation was performed on the left-hand side followed by the right-hand side. Once complete the 12 Hegar dilator was placed up the left distal corporal body and the 13 Hegar dilator placed up the right distal corporal body. Neither dilator touched each other demonstrating cross over had not occurred. After dilation each corporal body were washed with antibiotic normal saline. At this point the allie measuring device was introduced. On the left side the proximal dilation measured at 10 cm and the distal dilation measured approximately 9 cm on the left. On the right side 9 cm and 9 cm respectively. Based on the considerations from dilatation and an assessment of the penile base girth a decision was made regarding penile prosthetic choice. - Crono CX - 18cm with 1cm rear tip oil producer on Left Prior to prosthetic preparation placement of the reservoir was performed. The 100cc concealed reservoir was chosen. Surgical gloves were changed at this point in the procedure prior to handling the prosthetic. The right inguinal canal was palpated and finger dissection plus the blue hook retractor were used to expose the floor of the canal and palpate the medial edge adjacent to the rectur abdominis tendon insertion. A Metzenbaum scissors were used to punch a small hole in the posterior wall of the medial aspect of the inguinal canal. This was enlarged with the tip of the index finger. The concealed reservoir was then placed through this hole into the preperitoneal, retro body wall space. This was filled with 100 cc injectable normal saline and minimal back pressure was noted. Shod clamps were placed. Preparation of the corporal cylinders and integrated pump were complete. Rear tip extenders had been attached. An introducer Dereck needle was used to thread the distal tip thread from left side corporal prosthetic. The threaded needle was loaded into the allie device and placed through the corporal defect to the mid glans position. The needle was advanced out through the glans of the penis. The prosthetic was then placed into the corporal defect. The proximal portion, with attached rear tip oil producer, was advanced and placed using the enclosed pusher device. Once the proximal portion was properly seated the distal component was introduced and brought out to the distal portion of the corpora by retracting the glans suture. A similar procedure was repeated on the right side. Tubing covering was stripped. The penis was elevated by grasping the distal glans sutures. The prosthetic was then inflated with approximately 80 cc of normal saline. No defects were seen. The prosthetic remained midline and the distal tips could be palpated in the mid penile gland indicating correct placement. The penile prosthetic was deflated. The parallel stay sutures were then secured in a horizontal fashion. The proximal pair of sutures were tied first. The proximal suture ends were tied in an air knot. The distal suture ends were lifted tightening the proximal knot onto tissue and closing the corporotomy. This was repeated with the second pair of distal sutures. The left side was completed first followed by the right. The scrotum was irrigated. Blunt dissection was performed to create a scrotal pocket. The pump was placed into the scrotal pocket and held using a [place] clamp. The excess tubing from the pump and reservoir was isolated using rubber shod clamps. Excess tubing was cut with scissors leaving a 1 inch length. The tubing ends were spiritzed with saline. Compression fittings were placed and locked using the compression clamp. The penile prosthetic was then refilled to ensure proper function and adequate flow between the reservoir and the prosthetic. A 3-0 Vicryl was then used to secure tissue so the pump was kept in the dependent position using a purse string suture. Tissue was reapproximated with 3-0 Vicryl in a horizontal fashion. At least 2 layers were created Skin was closed using a running 4.0 monocryl suture. The wounds were cleaned and dried. Dermal glue was used to cover the incision. Once the incision was dry and modified mummy / broccoli stalk dressing was applied. This consisted of a layer of wood followed by [place]. Two to three pumps had been placed into the prosthetic so as to keep the prosthetic partially filled. A cap was left on the Benjamin catheter to allow drainage for the next 48 hours. He tolerated the procedure well was extubated in operating room transferred in stable condition to the recovery area. Drains: Sixteen Moldovan Benjamin cather Pathology: None
--- NOTE | 2024-03-07 07:44 | P.HPSUR_ITS ---
Pre-Procedural Eval Section A - 24 Hr Update-Section A only Date of Service: 03/07/24 The patient is an INPATIENT: No Changes since office visit: No Cold of Flu in the past 2 weeks, No New Medical Problems, No Changes in Medication and No Patient answered all questions The patient has been examined within 24 hours of the surgical procedure. The History & Physical has been completed within 30 days and I have reviewed it.: Yes Section B - Complete if H&P > 30 days Chief Complaint: Erectile dysfunction due to arterial insufficiency Details of Present Illness: Diabetic with erectile dysfunction Relevant Family History (Specify if Yes): No Relevant Social History: None Present Medications: see Short Stay Collaborative assessment Medical History: No relevant PMH History of Previous Operations: No relevant previous surgery Allergies: Allergies Allergy/AdvReac Type Severity Reaction Status Date / Time No Known Allergies Allergy Verified 03/07/24 06:36 [No Known Allergies*] Review of Systems Sugical H&P ROS: Negative: Constitution, Cardiovascular, Respiratory, Neurological, Psychiatric, Hem-Onc, Allergic/Immunologic, Gastrointestinal, Genitourinary, Musculoskeletal, Integumentary, Endocrine and Eyes/Ears/Nose/Throat Exam Surgical H&P Exam: Normal: HEENT, Normal: Heart, Normal: Lungs, Normal: Extr emities, Normal: Abdomen, Normal: Skin and Normal: Neurological Plan Diagnosis/Plan: Unchanged I have reviewed the history and physical and performed a pertinent physical examination on my patient. No changes have occurred unless specified. Time Spent With Patient Time: Total time managing care of this patient today ____ minutes.
[2024-03-07] MEDS: vancomycin HCL 1,500 MG in 0.9 % Sodium Chloride 500 ML 333.33 MG IV (07:54)
[2024-03-07] MEDS: fentaNYL citrate/PF 100 MCG/2 ML VIAL 50 MCG IVPUSH (10:30)
--- OUTSIDE RECORDS SUMMARY | 2024-03-11 12:45 | XMS_ITS | Continuity of Care Document ---
Author Organization [facility] Address [address] [place] [id number]- Care Team Providers Care Telephone Plant Power Operator Name Role Phone Maria Del Rosario LONG, Agustin Moran Primary Care Physi cindy Encounter [facility] Date(s): 11/16/23 - 12/16/23 [facility] [address] [place] [id number] Allergies, Adverse Reactions, Alerts No Known Allergies Medications cholecalciferol 2000 intl units oral tablet TOME OLINDA TABLETA TODOS LOS D Start Date: 07/30/21 Status: Ordered Daily Stacy oral tablet TOME OLINDA TABLETA TODOS LOS D Start Date: 07/30/21 Status: Ordered Freestyle savana 2 [place] Freestyle savana 2 [place], See Instructions, # 1 pack/packet, Refills 0, [...] EVERY DAY AT BEDTIME, # 15 Unknown, 11 Refills, Maintenance, 11/16/23 10:17:00 EDT, [id number], 170.18, cm, 04/21/23 11:40:00 EST, Height Start Date: 11/16/23 Status: Ordered Melatonin = 5 mg, Daily at bedtime, 0 Refills, Maintenance, 01/29/19 18:06:24 EDT Start Date: 01/29/19 Status: Ordered NovoLOG FlexPen 100 units/mL injectable solution See Instructions, USE PER SLIDING SLIDING SCALE UP TO 60 UNITS A DAY, # 30 Unknown, 5 Refills, Maintenance, 09/18/23 13:10:00 EDT, [id number], 170.18, cm, 04/21/23 11:40:00 EST, Height Start Date: 09/18/23 Status: Ordered Omeprazole = 20 mg, By [...] drug. Start Date: 07/30/21 Status: Ordered Pen [place], 31 G x 5 mm BD Ultra [...] Maria Del Rosario LONG, Agustin Moran Position: [facility] Outreach Member Role: PCP Address: Address: [address] [place] [id number]- Name: Radha Lacy RN Position: [facility] SN RN Member Role: Primary Care Nurse Care Team Related Persons Name: BRETT ALLEN Address: home [address] [address] Name: ANIBAL LUONG Address: home [address] [place] [address]
--- OUTSIDE RECORDS SUMMARY | 2024-03-11 12:45 | XMS_ITS | Continuity of Care Document ---
Author Organization [facility] Address [address] [place] [id number]- Care Team Providers Care Tank Officer Name Role Phone Maria Del Rosario LONG, Agustin Moran Primary Care Physi cindy Encounter [facility] [place] Date(s): 08/22/23 - 09/21/23 [facility] [address] [place] [id number] Allergies, Adverse Reactions, Alerts No Known Allergies Medications cholecalciferol 2000 intl units oral tablet TOME OLINDA TABLETA TODOS LOS D Start Date: 07/30/21 Status: Ordered Daily Stacy oral tablet TOME OLINDA TABLETA TODOS LOS D Start Date: 07/30/21 Status: Ordered Freestyle savana 2 [place] Freestyle savana 2 [place], See Instructions, # 1 pack/packet, Refills [...] BEDTIME, # 15 Unknown, 11 Refills, Maintenance, 09/16/23 15:44:00 EDT, [id number], 170.18, cm, 04/21/23 11:40:00 EST, Height Start Date: 09/16/23 Status: Ordered Melatonin = 5 mg, Daily at bedtime, 0 Refills, Maintenance, 01/29/19 18:06:24 EDT Start Date: 01/29/19 Status: Ordered NovoLOG FlexPen 100 units/mL injectable solution See Instructions, USE PER SLIDING SLIDING SCALE UP TO 60 UNITS A DAY, # 30 Unknown, 5 Refills, Maintenance, 09/18/23 13:10:00 EDT, [facility], 170.18, cm, 04/21/23 11:40:00 EST, Height Start [...] drug. Start Date: 07/30/21 Status: Ordered Pen [place], 31 G x 5 mm BD Ultra [...] Team Personnel Name: Crystal DARDEN, Lorraine Position: [facility] RN Member Role: Primary Care Nurse Name: Maria Del Rosario LONG, Agustin Moran Position: [facility] Outreach Member Role: PCP Address: Address: [address] [place] [address]- Name: Radha Lacy RN Position: [facility] SN RN Member Role: Primary Care Nurse Care Team Related Persons Name: BRETT ALLEN Address: home [address] [address] Name: ANIBAL LUONG Address: home [address] [place] [address]
--- OUTSIDE RECORDS SUMMARY | 2024-03-11 12:46 | XMS_ITS | Continuity of Care Document ---
Author Organization [facility] Address [address] [place] [id number]- Care Team Providers Care Matrix Plater Name Role Phone Maria Del Rosario LONG, Agustin Moran Primary Care Physi cindy Encounter [facility] [place] Date(s): 08/24/23 - 09/23/23 [facility] [address] [place] [id number] Allergies, Adverse Reactions, Alerts No Known Allergies Medications cholecalciferol 2000 intl units oral tablet TOME OLINDA TABLETA TODOS LOS D Start Date: 07/30/21 Status: Ordered Daily Stacy oral tablet TOME OLINDA TABLETA TODOS LOS D Start Date: 07/30/21 Status: Ordered Freestyle savana 2 [place] Freestyle savana 2 [place], See Instructions, # 1 pack/packet, Refills 0, [...] Refills, Maintenance, 09/16/23 15:44:00 EDT, [facility], 170.18, cm, 04/21/23 11:40:00 EST, Height Start Date: 09/16/23 Status: Ordered Melatonin = 5 mg, Daily at bedtime, 0 Refills, Maintenance, 01/29/19 18:06:24 EDT Start Date: 01/29/19 Status: Ordered NovoLOG FlexPen 100 units/mL injectable solution See Instructions, USE PER SLIDING SLIDING SCALE UP TO 60 UNITS A DAY, # 30 Unknown, 5 Refills, Maintenance, 09/18/23 13:10:00 EDT, [facility], 170.18, cm, 04/21/23 11:40:00 EST, Height Start [...] drug. Start Date: 07/30/21 Status: Ordered Pen [place], 31 G x 5 mm BD Ultra [...] Team Personnel Name: Crystal DARDEN, Lorraine Position: [facility] RN Member Role: Primary Care Nurse Name: Maria Del Rosario LONG, Agustin Moran Position: [facility] Outreach Member Role: PCP Address: Address: [address] [place] [address]- Name: Radha Lacy RN Position: [facility] SN RN Member Role: Primary Care Nurse Care Team Related Persons Name: BRETT ALLEN Address: home [address] [address] Name: ANIBAL LUONG Address: home [address] [place] [address]
--- OUTSIDE RECORDS SUMMARY | 2024-03-11 12:46 | XMS_ITS | Continuity of Care Document ---
Author Organization [facility] Endocrinolo gy and Diabetes Address [address] [place] [id number]- Care Team Providers Care Volleyball Assembler Name Role Phone Maria Del Rosario LONG, Agustin Moran Primary Care Physi cindy [place] [facility] [place]23 [facility] Diabetes [address] [place] [id number] Allergies, Adverse Reactions, Alerts No Known Allergies Medications cholecalciferol 2000 intl units oral tablet TOME OLINDA TABLETA TODOS LOS D Start Date: 07/30/21 Status: Ordered Daily Stacy oral tablet TOME OLINDA TABLETA TODOS LOS D Start Date: 07/30/21 Status: Ordered Freestyle savana 2 [place] Freestyle savana 2 [place], See Instructions, # 1 pack/packet, Refills 0, [...] 0.3 cc 31 G x 8 mm (516in) See Instructions, # 100 each, Refills 1, [...] Refills, Maintenance, 09/16/23 15:44:00 EDT, [id number], 170.18, cm, 04/21/23 11:40:00 EST, Height Start Date: 09/16/23 Status: Ordered Melatonin = 5 mg, Daily at bedtime, 0 Refills, Maintenance, 01/29/19 18:06:24 EDT Start Date: 01/29/19 Status: Ordered NovoLOG FlexPen 100 units/mL injectable solution See Instructions, USE PER SLIDING SLIDING SCALE UP TO 60 UNITS A DAY, # 30 Unknown, 5 Refills, Maintenance, 09/18/23 13:10:00 EDT, [id number], 170.18, cm, 04/21/23 11:40:00 EST, Height Start [...] drug. Start Date: 07/30/21 Status: Ordered Pen [place], 31 G x 5 mm BD Ultra [...] Maria Del Rosario LONG, Agustin Moran Position: [facility] Outreach Member Role: PCP Address: Address: [address] [place] [id number]- Name: Radha Lacy RN Position: [facility] SN RN Member Role: Primary Care Nurse Care Team Related Persons Name: BRETT ALLEN Address: home [address] [address] Name: ANIBAL LUONG Address: home [address] [place] [address]
--- OUTSIDE RECORDS SUMMARY | 2024-03-11 12:46 | XMS_ITS | Continuity of Care Document ---
Author Organization [facility]ocrinolo [facility] and Diabetes Address [address] [place] [id number]- Care Team Providers Care Front End Technician Name Role Phone Maria Del Rosario LONG, Agustin Moran Primary Care Physi cindy [place] [facility] [place]17[place]23 - 10/17/23 [facility] [address] [place] [id number] Allergies, Adverse Reactions, Alerts No Known Allergies Medications cholecalciferol 2000 intl units oral tablet TOME OLINDA TABLETA TODOS LOS D Start Date: 07/30/21 Status: Ordered Daily Stacy oral tablet TOME OLINDA TABLETA TODOS LOS D Start Date: 07/30/21 Status: Ordered Freestyle savana 2 [place] Freestyle savana 2 [place], See Instructions, # 1 pack/packet, Refills 0, [...] Refills, Maintenance, 09/16/23 15:44:00 EDT, [id number], 170.18, cm, 04/21/23 11:40:00 EST, Height Start Date: 09/16/23 Status: Ordered Melatonin = 5 mg, Daily at bedtime, 0 Refills, Maintenance, 01/29/19 18:06:24 EDT Start Date: 01/29/19 Status: Ordered NovoLOG FlexPen 100 units/mL injectable solution See Instructions, USE PER SLIDING SLIDING SCALE UP TO 60 UNITS A DAY, # 30 Unknown, 5 Refills, Maintenance, 09/18/23 13:10:00 EDT, [id number], 170.18, cm, 04/21/23 11:40:00 EST, Height Start [...] drug. Start Date: 07/30/21 Status: Ordered Pen [place], 31 G x 5 mm BD Ultra [...] Maria Del Rosario LONG, Agustin Moran Position: [facility] Outreach Member Role: PCP Address: Address: [address] [place] [id number]- Name: Radha Lacy RN Position: [facility] SN RN Member Role: Primary Care Nurse Care Team Related Persons Name: BRETT ALLEN Address: home [address] [address] Name: ANIBAL LUONG Address: home [address] [place] [address]
== END 2024-03-07 12:07 | disposition home or self-care (01) ==
PROVIDERS: PCP Internal Medicine; Visit Provider Urology
PROC: (CPT 54405; principal; 2024-03-07 07:30)
DX: N52.01 Erectile dysfunction due to arterial insufficiency (principal); E13.9 Other specified diabetes mellitus without complications; R91.8 Other nonspecific abnormal finding of lung field; K21.9 Gastro-esophageal reflux disease without esophagitis; Z94.4 Liver transplant status; F41.8 Other specified anxiety disorders; Z79.4 Long term (current) use of insulin; Z79.899 Other long term (current) drug therapy; Z98.890 Other specified postprocedural states; Z87.891 Personal history of nicotine dependence
CPT/HCPCS: 54405; 82947; C1813; J1171; J1450; J1580; J2003; J2250; J2405; J2543; J2704; J2795; J3010; J3370; J3371

== ENCOUNTER → 2024-03-07 05:41 | Outpatient (BNV) | payer OTHER, SELFPAY | PROVIDERS: PCP Internal Medicine; Visit Provider Urology | DX: N52.01 Erectile dysfunction due to arterial insufficiency (principal) | CPT/HCPCS: 54405 ==

== ENCOUNTER → 2024-03-09 13:09 | Outpatient (BNVA) | payer OTHER, SELFPAY | PROVIDERS: PCP Internal Medicine; Visit Provider Urology ==

== ENCOUNTER 2024-03-22 13:48 | Outpatient (AMB) | payer OTHER, SELFPAY ==
--- NOTE | 2024-03-22 14:34 | MHC.OFFVIS ---
Intake Visit Reasons: Penile Prosthesis, 2w follow up Intake Note: Patient is present for Urology Medication: Antibiotic Allergy: Blood Thinner: Allergies No Known Allergies [No Known Allergies*] Allergy (Verified 03/07/24 06:36) HPI Comments Details: Edward is a male. He is a patient of . He seen for the following urologic conditions - erectile dysfunction Citizen Of [place] interpretation provided by qualified medical referral coordinator in office Two week follow-up from penile prosthetic Instructions provided and demonstrations regarding penile prosthetic function Should manipulate pump daily in shower Inflate with 10 pumps daily Cleared for sexual intercourse 20 of April Erectile dysfunction - penile prosthetic February 2024 Longstanding Had liver transplant in mid 2019 Has been using 200 mg of Viagra with minimal success Associated symptoms including weakness of stream and incomplete bladder emptying PFSH Medical History (Updated 03/03/24 @ 09:10 by Ai Jaeger RN) Liver failure Hx of hepatitis Anxiety and depression Tubular adenoma of colon Diabetes 1.5, managed as type 2 Hx of substance abuse GERD (gastroesophageal reflux disease) Surgical History (Updated 03/07/24 @ 06:42 by Patricia Elias RN) History of surgery on lower extremity History of local excision of skin lesion (04/16/23) Hx of colonoscopy Hx of esophagogastroduodenoscopy History of open reduction and internal fixation (ORIF) procedure History of appendectomy S/P liver transplant Social History Household Members: None Are you a primary direct support professional caregiver to a significant other at home: No Do you presently have visiting nurse or other home services: No Alcohol intake: never Patient Tobacco Use Status: Former Tobacco user Tobacco use type: Cigarette Years Smoked: 15 Current occupational status: disabled Review of Systems Const Denies chills and Denies fever(s) Card Reports no additional complaints and Denies syncope Resp Denies cough GI Denies abdominal pain and Denies heartburn Reports as per HPI and Denies change in libido Neuro Denies syncope Psych Denies change in libido Endo Denies change in libido Physical Exam Const General: cooperative, healthy appearing, comfortable and no acute distress Orientation/consciousness: patient oriented x3 HEENT Face and sinus: Yes normal facial exam Mouth: moist mucous membranes Neck Neck: Yes normal visual inspection, Yes full ROM and Yes trachea midline Chest Chest palpation & inspection: normal inspection of the chest Resp Effort & Inspection: normal respiratory effort, able to speak in complete sentences and no respiratory distress GI Inspection: Yes normal to inspection Back/Spine/Pelvis Cervical Spine: normal cervical lordosis Thoracic/Lumbar Spine: thoracic and lumbar spine normal to inspection Skin General skin exam: no rashes or lesions noted Neuro General: patient oriented x3, gait normal, tone normal and moves all extremities Extrem General: Yes normal to inspection and Yes capillary refill normal Results AMB Urinalysis, Automated UA Leukoctes 0 Kyler/uL Last Edit by GORDO Brown on 03/22/24 14:51 UA Nitrite Negative Last Edit by GORDO Brown on 03/22/24 14:51 UA Urobilinogen 0.2 mg/dL Last Edit by GORDO Brown on 03/22/24 14:51 UA Protein 15 mg/dL Last Edit by GORDO Brown on 03/22/24 14:51 UA pH 5.5 Last Edit by GORDO Brown on 03/22/24 14:51 UA Blood 0 Castro/uL Last Edit by GORDO Brown on 03/22/24 14:51 UA Specific Win[place]rede 1.030 Last Edit by GORDO Brown on 03/22/24 14:51 UA Ketone Negative Last Edit by GORDO Brown on 03/22/24 14:51 UA Bilirubin 0 mg/dL Last Edit by GORDO Brown on 03/22/24 14:51 UA Glucose 0 mg/dL Last Edit by Meghan Romero CCM on 03/22/24 14:51 Assessment & Plan Assessment & Plan (1) Erectile dysfunction due to arterial insufficiency: Comment: Trial 10 mg tadalafil daily Code(s): N52.01 - Erectile dysfunction due to arterial insufficiency Category: Medical Plan Three-month follow-up office Orders: Orders AMB Urinalysis Automated Today Z13.9 - Encounter for screening, unspecified Patient Instructions: Imaging studies, laboratory and physical exam results were discussed and reviewed in detail. No major barriers to patient understanding were identified. An opportunity to ask questions regarding the treatment plan was provided. All questions were answered. The patient expressed understanding and agreement with the above treatment plan. The patient is aware they should contact our office by phone for worsening of their current condition or the appearance of new urologic symptoms. Compliance is encouraged with any medications and followup testing that is ordered. It is a privilege to participate in the urologic care of your patient. If you have any questions or concerns regarding treatment for the above conditions, or other urologic issues, please do not hesitate to contact me. The office telephone contact is [phone]. This note is constructed using voice recognition software. While every effort has been made to ensure accuracy boxing instructor errors may have been included. Yours sincerely, Dr Leonidas Miranda MD, [facility] - Urology Providers of Expert, Compassionate Care for the Genitourinary System Coding Level of Care Code Est Pt Level 3 (54000) Diagnoses Erectile dysfunction due to arterial insufficiency N52.01
--- OUTSIDE RECORDS SUMMARY | 2024-03-29 14:39 | XMS_ITS ---
Author Organization [facility] Reji khan [place] Address [address] [facility] [place] [address] Care Team Providers Care Passenger Coach Driver Name Role Phone Nura Connelly MD, Agustin Primary Care Provide r Unavailable Yovanny Long Unavailable [phone] REASON FOR VISIT last visit pcp 12/31/23, Painful nail(s) aggravated by shoes causing difficulty standing/walking, Skin problem(s) Medications Medication SIG (Take, Route, Frequency, Duration) Notes Start Date End Date Status Multivitamin - 1 tablet Orally Once a day Active Magnesium 400 MG as directed Orally Active Omeprazole 20 MG 1 capsule 1/2 to 1 h our before morning meal Orally Once a day Active Vitamin D3 237072 UNIT/GM as directed Active Losartan Potassium 25 MG 1 tablet Orally Once a day Active Tacrolimus 1 MG as directed Orally Active Ammonium Lactate 12 % 1 application Exte rnally to affected areas of dry skin to feet except for between the toes Twice a day for 30 days Active Social History Tobacco Use: Social History Observation Description Date Details (start date - stop date) Never Smoker NA - NA Tobacco use other than smoking: Question Answer Notes Are you an other tobacco user? No Tobacco Control (Standard) Question Answer Notes Tobacco use: Nonsmoker Additional Findings: Tobacco non-user Current no nsmoker AUDIT-C (Standard) Question Answer Notes Did you have a drink containing alcohol in the p ast year? No Points 0 Interpretation Negative Vital Signs Height 5ft 7in in 03/10/2024 Weight 201 lbs 03/10/2024 BMI 31.48 kg/m2 03/10/2024 Procedures Procedure Date Ordered Date Performed Result Body Sit e 71356-NSDRNEZ NAIL, 6 OR MORE 03/10/2024 N/A Encounters Encounter Location Date Provider Diagnosis [facility] [place] [address] [place] [address] 03/10/2024 Yovanny Long Onychomycosis B35.1 ; Xerosis of skin L85.3 ; Pain in right toe(s) M79.674 and Pain in left toe(s) M79.675 Assessments Encounter Date Diagnosis (ICD Code) Assessment Notes Treatment Notes Treatment Clinical Notes Section Notes 03/10/2024 Onychomycosis (ICD-10 - B35.1) 03/10/2024 Xerosis of skin (ICD-10 - L85.3) Application of [place]-Soothe skin lotion to his feet 03/10/2024 Pain in right toe(s) (ICD-10 - M79.674) 03/10/2024 Pain in left toe(s) (ICD-10 - M79.675) Plan Of Treatment Medication Medication Name Sig Start Date Stop Date Notes Ammonium Lactate 12 % 1 application Exte rnally to affected areas of dry skin to feet except for between the toes Twice a day for 30 days Treatment Notes Assessment Notes Xerosis of skin Application of [place] -Soothe skin lotion to his feet Pending Test Test Name Order Date [id number] NAIL, 6 OR MORE 03/10/2024 Next Appt Details Follow Up: 2 Months, Reason: Provider Name:Yovanny Long, 05/26/2024 10:15:00 AM, [address] [facility], [place], [address], Procedure Notes * Category Sub-Category Detail Notes Debride Nail 6-10 Nail debridement Performance o f this nail treatment by a nonprofessional would put this patients foot and overall health at risk. Therefore, debridement to affected nail(s), as described in exam, was performed extensively to reduce/remove overall nail length, girth, thickness, subungual debris, and necrotic tissue, by manual and/or electrical means through the use of a nail nipper and/or dremel-type tile grinder, to a more viable healthy nail plate or bed tissue 6-10. Silver nitrate used for any petechial bleeding as necessary. Definitive antifungal treatment options have been reviewed and discussed with the patient. The patient chooses, no pharmaceutical tx - 56470 Progress Notes * Shad JON:[birth year] (59 yo M)Acc No.[id number]:03/10/2024 Progress Notes Patient:?Salome JON Provider:?Yovanny Long D.P.M. :1965???Age:59 Y???Sex:Male New e:03/10/2024 Address:[address] [place] [address], [id number] Pcp:Agustin Connelly MD Subjective: * Chief Complaints: * ???Last visit pcp 12/31/23Pa inful nail(s) aggravated by shoes causing difficulty standing/walkingSkin problem(s) * HPI: ???Skin problems:?Nature:?dryness , scaling, tender.?Location:?Top, Bottom, Inside, Outside, Forefoot, Arch, Heel/Rearfoot, B/L.?Duration:?a few months.?Onset/Cause:?unknown.?Course:?unresolved.?Aggravated by:?shoe gear.?Treatments:?none.?Severity/Quality:?moderate.? * ROS:?General/Constitutional:?Nausea?denies.?Vomiting?denies.?Hunger Thirst?denies.?Loss appetite?denies.?Chills?denies.?Fatigue?denies.?Fever?denies.?Night Sweats?denies.?Unexplained weight loss?denies.?Unexplained weight gain?denies.?HEENTM:?Dentures?denies.?Dizziness?denies.?Glasses/contacts?denies.?Retinopathy?de nies.?Blurred/double vision?denies.?TMJ?denies.?Discharge/drainage?denies.?Implants?denies.?Sore throat?denies.?Dental implants?denies.?Hard of hearing ?denies.?Difficulty chewing/swallowing/speaking?denies.?Nose bleeds?denies.?Sore mouth?denies.?Respiratory:?On Oxygen?denies.?Pneumonia/pleurisy?denies.?Bronchitis?denies.?Emphysema?denies.?C oughing?denies.?Cough blood?denies.?Shortness of breath?denies.?Wheezing?denies.?Cardiovascular:?Pacemaker?denies.?MVP?denies.?WPW?denies.?CHF?denies.?Heart attack?denies.?Septal defect?denies.?Rapid beat?denies.?Chest pain ?denies.?Atrial Fib.?denies.?Murmur/Palpitations?denies.?Gastrointestinal:?Hemorrhoids?denies.?Stomach/Abdominal pain?denies.?Dark blood stool?denies.?Irritable bowel ?denies.?Constipation?denies.?Diarrhea?denies.?Hematology:?Swelling?denies.?Clots?denies.?Varicose Veins?denies.?Bruising?denies.?Bleeding problem?denies.?Genitourinary:?Blood urine?denies.?Frequent/Painfu/urination/bladder control?denies.?Kidney stones?denies.?Infection (UTI)?denies.?Nephropathy?denies.?sex trans dis (STD)?denies.?Prostate?denies.?Musculoskeletal:?Hammertoes?denies.?Bunions?denies.?Back Pain?denies.?Muscle Cramps/ Resting?denies.?Muscle cramps / walking?denies.?Generalized aches and pains?denies.?Weakness?denies.?Integ.:?Cintron?denies.?Scars?denies.?Corns/calluses?admits.?Ingrown nails?denies.?Painful nails?admits.?Open Sores?denies.?Rashes?denies.?Neurologic:?Difficulty sleeping?denies.?Brain disorder?denies.?Numbness?denies.?Balance trouble?denies.?Confusion?denies.?Fainting/blackouts?denies.?Tingling?denies.?Tr emors?denies.? * Medical History:? * Surgical History:?No Surgica l History documented. * Hospitalization/Major Diagno stic Procedure:?No Hospitalization History. * Family History:?Mother: poornima topete.?Father: .? * Social History:?Tobacco Use:?Tobacco use other than smoking?Are you an other tobacco user??No ?Tobacco Control (Standard)?Tobacco use:?Nonsmoker ?Additional Findings: Tobacco non-user?Current nonsmoker ???Drugs/Alcohol:?Drugs?Have you used drugs other than those for medical reasons in the past 12 months??No ???Miscellaneous:?Caffeine: yes, frequency:, 1-2 cups per day. ?Children: yes, 2. ?Exercise: yes, walking. ?Marital status: Single. ?Occupation: Unemployed disabled. ???Drug/Alcohol:?AUDIT-C (Standard)?Did you have a drink containing alcohol in the past year??No ?Points?0 ?Interpretation?Negative * Medications:?TakingMultivita min - Tablet 1 tablet Orally Once a day Magnesium 400 MG Capsule as directed Orally Omeprazole 20 MG Capsule Delayed Release 1 capsule 1/2 to 1 hour before morning meal Orally Once a day Tacrolimus 1 MG Capsule as directed Orally Vitamin D3 227280 UNIT/GM Powder as directed Losartan Potassium 25 MG Tablet 1 tablet Orally Once a day Medication List reviewed and reconciled with the patientTaking Multivitamin - Tablet 1 tablet Orally Once a day Taking Magnesium 400 MG Capsule as directed Orally Taking Omeprazole 20 MG Capsule Delayed Release 1 capsule 1/2 to 1 hour before morning meal Orally Once a day Taking Tacrolimus 1 MG Capsule as directed Orally Taking Vitamin D3 608478 UNIT/GM Powder as directed Taking Losartan Potassium 25 MG Tablet 1 tablet Orally Once a day Medication List reviewed and reconciled with the patient * Allergies:?yes[Allergies Lizbeth ified] Objective: * Vitals:?Ht: 5ft 7in, Wt:201, BMI:31.48, Shoe size: 9, BS: 134, Ht-cm: 170.18 cm, Wt-k.17 kg. * Examination: ???CQM Exceptions:: ?Hemoglobin A1c not performed?Ophthalmology Referral: ?DIABETES EYE EXAM?General Examination: ?GENERAL APPEARANCE:?Reveals a pleasant, alert, well-nourished, well- developed, well hydrated individual, who demonstrates proper attention to hygiene/body habitus, and is in no acute distress, Pt serves as own?historian for office visit today.?ORIENTED:?person, place, and time.?Neurological: ?SENSORY:?Neurological exam reveals intact sensorium, pain sensation normal, vibration sensation intact, pinprick sensation is normal in the lower extremities, Pt denies, anesthesia, burning, paresthesia, tingling, B/L.?DEEP TENDON REFLEXES:?Achilles, 2/4, B/L.?Vascular: ?DP PULSES(B):?2/4, B/L.?PT PULSES(B):?2/4, B/L.?CAPILLARY FILL TIME:?immediate, all digits, B/L.?TROPHIC CONDITION-TEXTURE/ELASTICITY/TURGOR/HAIR GROWTH(B):?normal, B/L.?TEMPERTURE GRADIENT(C):?warm to cool, proximal to distal, B/L.?PIGMENTATION:?normal, B/L.?EDEMA(C):?absent, B/L.?Dermatologic: ?SKIN FINDINGS:?Skin exam reveals normal texture, elasticity, and turgor. There are no masses. The interspaces are clear , Skin shows sign(s) of, dryness, scaling, in a stocking fashion, no fissure(s) present, B/L.?Orthopedic: ?MUSCLE STRENGTH:?5/5 all groups in a symmetrical fashion , B/L.?Nails: ?NAILS are:?, Elongated, overgrown, dystrophic, lytic, greater than 3mm thick, discolored and friable with crumbly malodorous subungual debris, with pain on palpation, 1-5 B/L.? Assessment: * Assessment: 1.?Xerosis of skin - L85.3 ( Primary)???Specify :Acute problem, Uncomplicated (3),Rx Management (4)???2.?Onychomycosis - B35.1???3.?Pain in right toe(s) - M79.674???4.?Pain in left toe(s) - M79.675??? Plan: * Treatment: 2.?Onychomycosis?Procedure: 21039-NDVPULD NAIL, 6 OR MORE * Procedures:?Debride Nail 6-10:?Nail debridement?Performance of this nail treatment by a nonprofessional would put this patients foot and overall health at risk. Therefore, debridement to affected nail(s), as described in exam, was performed extensively to reduce/remove overall nail length, girth, thickness, subungual debris, and necrotic tissue, by manual and/or electrical means through the use of a nail nipper and/or dremel-type tile grinder, to a more viable healthy nail plate or bed tissue 6-10. Silver nitrate used for any petechial bleeding as necessary. Definitive antifungal treatment options have been reviewed and discussed with the patient. The patient chooses, no pharmaceutical tx - 45032.? * Procedure Codes:?65687 DEBRI DE NAIL, 6 OR MORE * Preventive Medicine:? ??Counseling:?Discussion:?-03: Office or other outpatient visit for the evaluation and management of a new patient, which required a medically appropriate history and/or examination and LOW level of DECISION MAKING for: 1 STABLE ACUTE UNCOMPLICATED PROBLEM, 2 OR MORE MINOR PROBLEMS, OR 1 STABLE CHRONIC PROBLEM, THAT POSE(S) A LOW RISK FOR MORBIDITY/MORTALITY. The visit on the day of the encounter encompassed interpreting the data and educating the patient as to the nature of their condition, treatment options available according to their individual PMH, meds, allergies, and overall health/living conditions, as well as any potential risks or complications that may occur from a failure to adhere to, and participate in, the recommended course of therapy. The discussion included a complete verbal, and/or written explanation of the examination results, any x-rays taken, the proposed diagnosis, and outline of the treatment plan. A schedule for future care needs was also explained. The patient verbalized an understanding of the instructions at this time and agreed to be an active participant in their treatment. If the patient should think of any questions or concerns after the visit, I have encouraged the patient to call the office.?Xerosis:?The patient was counseled on the diagnosis, potential etiologies, and treatment options for their skin condition. We discussed the risks and benefits of each option from performing no treatment, to utilizing OTC topical skin creams/ointments, to utilizing prescription topical creams/ointments, to utilizing customized compounded topical medications and use of nocturnal occlusion with any/all previously detailed therapies. We discussed the advantages and disadvantages of each possible treatment and importance for adherence to all the recommended therapies for optimum success and avoid potential complications such as open sore/infection/possible hospitalization. We discussed the potential effectiveness of each topical preparation as well as each ones possible side effects and/or patient medication interactions. Patient questions re: use, dosage, successful outcomes, and application consistency were reviewed and the patient verbalized that all answers were clearly understood. The patient has decided to apply Rx skin creams to their feet save the interspaces while paying special attention to the heels. Rx Lac- Hydrin was sent to their pharmacy at the time of visit.? * Follow Up:?2 Months * Images: * Sign off status: Completed true * Provider:?Yovanny Long D.P.M. Date:?02/19 Generated for Francisco reagan/Eloina/eTransmitting on:?03/29/2024 02:39 PM EST History and Physical Notes * HPI (History of Present Illness) Category Sub-Category Detail Notes Category Not es Skin problems Nature: dryness , scaling, tender Location: Top, Bottom, Inside, Outside, Forefoot, Arch, Heel/Rearfoot, B/L Duration: a few months Onset/Cause: unknown Course: unresolved Aggravated by: shoe gear Treatments: none Severity/Quality: moderate Misc: Examination Category Sub-Category Detail Notes Category Not es Neurological SENSORY: Neurological exa m reveals intact sensorium, pain sensation normal, vibration sensation intact, pinprick sensation is normal in the lower extremities, Pt denies, anesthesia, burning, paresthesia, tingling, B/L DEEP TENDON REFLEXES: Achilles, 2/4, B/L Dermatologic SKIN FINDINGS: Skin exam reveal s normal texture, elasticity, and turgor. There are no masses. The interspaces are clear , Skin shows sign(s) of, dryness, scaling, in a stocking fashion, no fissure(s) present, B/L Orthopedic MUSCLE STRENGTH: 5/5 all groups in a symm etrical fashion , B/L General Examination GENERAL APPEARANCE: Reveals a pleasant, alert, well- nourished, well-developed, well hydrated individual, who demonstrates proper attention to hygiene/body habitus, and is in no acute distress, Pt serves as own historian for office visit today ORIENTED: person, place, and t tasneem Ophthalmology Referral DIABETES EYE EXAM Diabeti c Retinopathy Screening:: Yes 08/2023 Retinal Screening Performed:: Yes Findings of Diabetic Eye Exam:: no retin opathy 08/2023 Vascular DP PULSES(B): 2/4, B/L PT PULSES(B): 2/4, B/L CAPILLARY FILL TIME: immediate, all digi ts, B/L TEMPERTURE GRADIENT(C): warm to cool, pr oximal to distal, B/L TROPHIC CONDITION-TEXTURE/ELASTICITY/TURGOR/HAIR GROWTH(B): normal, B/L EDEMA(C): absent, B/L PIGMENTATION: normal, B/L Nails NAILS are: , Elongated, ove rgrown, dystrophic, lytic, greater than 3mm thick, discolored and friable with crumbly malodorous subungual debris, with pain on palpation, 1-5 B/L CQM Exceptions: Hemoglobin A1c not performed Reason:: No r luis specified
--- OUTSIDE RECORDS SUMMARY | 2024-03-29 14:39 | XMS_ITS | Patient Health Record ---
Author Organization [facility] Reji bill [place] Address [address] [facility] [place] [address] Care Team Providers Care Dog Show Judge Name Role Phone Nura Connelly MD, Agustin Primary Care Provide r Unavailable Yovanny Long Unavailable [phone] Reason For Referral No Information Medications Medication SIG (Take, Route, Frequency, Duration) Notes Start Date End Date Status Multivitamin - 1 tablet Orally Once a day Active Magnesium 400 MG as directed Orally Active Omeprazole 20 MG 1 capsule 1/2 to 1 h our before morning meal Orally Once a day Active Tacrolimus 1 MG as directed Orally Active Ammonium Lactate 12 % 1 application Exte rnally to affected areas of dry skin to feet except for between the toes Twice a day for 30 days Active Vitamin D3 539554 UNIT/GM as directed Active Losartan Potassium 25 MG 1 tablet Orally Once a day Active Social History Tobacco Use: Social History [...] Ordered Date Performed Result Body Sit e 25277-RPECMRP NAIL, 6 OR MORE 03/10/2024 N/A Encounters Encounter Location Date Provider Diagnosis [facility] [address] 03/10/2024 Yovanny Long Onychomycosis B35.1 ; Xerosis of skin L85.3 ; Pain in right toe(s) M79.674 and Pain in left toe(s) M79.675 [facility] [address] [place] [address] 03/10/2024 Yovanny Long Assessments Encounter Date Diagnosis (ICD Code) Assessment Notes Treatment Notes Treatment Clinical Notes Section Notes 03/10/2024 Xerosis of skin (ICD-10 - L85.3) Application of [place]-Soothe skin lotion to his feet 03/10/2024 Onychomycosis (ICD-10 - B35.1) 03/10/2024 Pain in right toe(s) (ICD-10 - M79.674) 03/10/2024 Pain in left toe(s) (ICD-10 - M79.675) Plan Of Treatment Pending Test Test Name Order Date [id number] NAIL, 6 OR MORE 03/10/2024 Next Appt Details Provider Name:Yovanny Carbone Ethan, 05/26/2024 10:15:00 AM, [address] [facility], [place], [address], Insurance Providers Payer Name Payer Address Payer Phone Subscriber Number Group Number Insured Name Patient Relationship to Insured Coverage Start Date Coverage End Date [facility] [employer] Claims [address] [place] [id number] Edward Jon Self - patient is the insured Medical (General) History Medical History History ICD Code Back,Hip,and Knee pain Broken bones Cataracts covid-19 Dementia Depression Diabetic Gall bladder problems Hiatal hernia High Blood Pressure Liver disease Psychiatric disorder
--- OUTSIDE RECORDS SUMMARY | 2024-03-29 14:39 | XMS_ITS ---
Author Organization [facility] Address [address] [facility] [place] [address] Care Team Providers Care Academic Intern Name Role Phone Nura Connelly MD, Agustin Primary Care Provide r Unavailable Yovanny Long Unavailable [phone] REASON FOR VISIT CX todays appt Encounters Encounter Location Date Provider Diagnosis [address] [address] 03/10/2024 Yovanny Long Plan Of Treatment Next Appt Details Provider Name:Yovanny Long, 05/26/2024 10:15:00 AM, [address] [place] [address], [place], [address], Progress Notes * Edward GOMEZDOB:[birth year] (59 yo M)Acc No.[id number]:03/10/2024 Patient:?Salome GOMEZ :1965???Age:59 Y???Sex:Male Address:[address] [place] [address] [address] [place] [address] * true * Date:? Generated for Printi ng/Fageorgeg/eTransmitting on:?03/29/2024 02:39 PM EST
--- OUTSIDE RECORDS SUMMARY | 2024-03-29 14:40 | XMS_ITS | Data Portability ---
Author Organization [facility] [email or web address] [facility], Main Office Address [address], [address] [place] [address] Care Team Providers Care Vinyl Cutter Name Role Phone MARICRUZ NEWMAN - 2ND FLOOR OTHER Assessment Encounter Date Assessment Date Assessment LastModified by Organization Details LastModified Time 02/25/2019 02/25/2019 02/24/19 WBC 3.7, Hgb 7.5, Hct 22.4, Plt 59, Na 134, K 4.5, BUN 10, Departmental Secretary 0.54, calc 7.8, tot prot 5.1, AST 69, ALT 33, A1c 4.2 02/23/19 WBC 3.4, Hgb 7.5, Hct 22.4, Plt 59, Na 128, K 4.3, BUN 11, Departmental Secretary 0.56, silvia 7.6, tot prot 4.8, tot bili 4.1, AST 65, ALT 25 in hospital [facility] Not available 02/25/2019 10:15:55 Plan of Treatment Reminders Order Date Submit Date Provider Last Modified By Organization Details Last Modified Time Details Appointments None record ed. Lab None record ed. Referral None record ed. Procedures None record ed. Surgeries None record ed. Imaging None record ed. Medication Orders None record ed. Patient TargetsNo targets recorded. Patient InstructionsNo instructions recorded. Reason for Referral None Reported. Problems Name Problem SNOMED Code Status Onset Date Resolution Date Notes Provider Name and Address Organization Details Recorded Time Gastroesop hageal reflux disease without esophagiti s 901739495 Active 2018 FIDEL MAURO [address], [address], [place], [address], [facility] [employer] 9 08:26:33 Cirrhosis of liver 65288680 Active 2018 on transplant list FIDEL MAURO [address], [address], [place], [address], [facility] 9 08:36:16 Diabetes mellitus 12332313 Active 2018 CACHORRO FIDEL CARLSON [address], [address], [place], [address], [facility] 9 08:28:07 Hyponatrem ia 72249057 Active 2018 CACHORROFIDEL LEON [address], [address], [place], [address], [facility] 9 08:28:22 Bacteremia 1095813 Active 2018 CACHORROFIDEL LEON [address], [address], [place], [address], [facility] 9 08:29:07 Bacterial peritoniti s 376524974 Active 2018 FIDEL MAURO [address], [address], [place], [address], [facility] 9 09:07:42 Edema of lower extremity 637577467 Active 2018 FIDEL MAURO [address], [address], [place], [address], [facility] 9 09:15:49 Abscess of lower leg 192588655 Active 2018 Brittaney Mcelroy MD [address] [place] [address], [address], [place], [address], [facility] 9 07:15:49 Anemia 549565594 Active 2018 Brittaney Mcelroy MD [address] [place] [address], [address], [place], [address], [facility] 9 07:16:47 Problem Notes None recorded. Medical Equipment None Reported. Allergies No known drug allergies Medications Not known to be on any medication Vitals Date Recorded Body weight Heart rate Respiratory rate Body temperature Oxygen saturation Oxygen saturation in Arterial blood by Pulse oximetry Systolic blood pressure Diastolic blood pressure Provider Name and Address Organization Details Last Updated DateTime 9 57414.5 1 g 70 /min 20 /min 96.9 [degF] 98 % 98 % 128 mm[Hg] 74 mm[Hg] FIDEL MAURO [address], [address], [place], [address], [facility] [employer] [facility] 9 11:06:12 Date Recorded Systolic blood pressure Diastolic blood pressure Provider Name and Address Organization Details Last Updated DateTime 03/02/2019 120 mm[Hg] 68 mm[Hg] Brittaney Mcelroy MD [address], [address], [place], [address], [facility] [employer] 03/02/2019 06:55:54 Social History Question Answer Notes LastModified by Organizat ion Details LastModified Time Tobacco Smoking Status Former Smoker Not Available [facility] 02/14/2020 03:13:21 Do You Have An Advance Directive? Yes FULL CODE-undecid ed About Dialysis And Nutrition-ma y Use Hydration [id number] Information not available 02/14/2020 What Is Your Level Of Alcohol Consumption? None Quit Drinking In 2016 [id number] Information not available 02/14/2020 How Many Years Have You Consumed Alcohol? 30 [id number] Information not available 02/14/2020 How Much Tobacco Do You Chew? None [id number] Information not available 02/14/2020 Do You Or Have You Ever Used E-cigarettes Or Vape? Never Used Electronic Cigarettes [id number] Information not available 02/14/2020 Do You Have A Medical Power Of Car Head Liner Installer? Yes Hcp On File [id number] Information not available 02/14/2020 What Was The Date Of Your Most Recent Tobacco Screening? 02/25/2019 [id number] Information not available 02/14/2020 Do You Or Have You Ever Used Smokeless Tobacco? Never Used Smokeless Tobacco [id number] Information not available 02/14/2020 How Much Tobacco Do You Smoke? 1 PPD [id number] Information not available 02/14/2020 On What Date Was Tobacco Cessation Counseling Provided? 02/25/2019 NA [id number] Information not available 02/14/2020 How Many Years Have You Smoked Tobacco? 30 [id number] Information not available 02/14/2020 Sex: Unknown Functional Status None recorded. Mental Status None recorded. Family History Nothing Reported. Medical History No medical history recorded. Past Encounters Encounter ID Performer Location Encounter Start Date Encounter Closed Date Diagnosis/Indication Diagnosis SNOMED-CT Code Diagnosis ICD10 Code [id number] FIDEL MAURO [address] [address] 02/25/2019 08:25:36 03/04/2019 13:41:33 Bacteremia 8040939 R78.81 Hyponatremia 18140417 E8 7.1 Cirrhosis of liver 007 K70.31 Diabetes mellitus 539797 09 E11.9 Gastroesop hageal reflux disease without esophagitis 311167559 K21.9 Bacterial peritonitis 19 1558040 K65.2 Edema of l ower extremity 107660386 R60.0 [id number] Brittaney Mcelroy MD [address] [address] 03/02/2019 06:54:11 03/04/2019 13:42:54 Cirrhosis of liver 95633800 K70.31 Diabetes mellitus 607523 09 E11.9 Gastroesop hageal reflux disease without esophagitis 528207886 K21.9 Anemia 892687338 D50.8 Bacteremia 6334619 R78.8 1 Bacterial peritonitis 19 2433752 K65.2 Health Concerns Section Related Observation LastModified by Organization Detai ls LastModified Time None Recorded Concern Status LastModified by Organization Details LastModified Time None Recorded Advance Directives Directive Y: FULL CODE-undecided about dialysis and nutrition-may use hydration Payers Encounter Date Sequence Insurance Name Policy Number Policy Banks Covered Member ID Banks Member ID Guarantor Name 02/25/2019 2 [place] [facility] Danay [id number] Edward Jon 02/25/2019 1 [id number] [facility] - DOS PRIOR TO 2022 - DUAL ELIGIBLE (MEDICARE REPLACEMENT/AD VANTAGE - HMO) Edward Jon [id number] Edward Jon 03/02/2019 2 [place] [facility] Danay [id number] Edward Jon 03/02/2019 1 [id number] [facility] [employer] - DOS PRIOR TO 2022 - DUAL ELIGIBLE (MEDICARE REPLACEMENT/AD VANTAGE - HMO) Edward Jon [id number] Edward Jon Notes Date Note Type Note Provider Name and Address Organization Details Recorded Time 02/25/2019 text/html A 54 year old leonel le being seen for a initial intake note. Patient was at [facility] for fever and lower extremity edema/pain. He was transferred to [facility] for bacteremia. He grew ESBL E. Coli and started on zosyn. This was then changed to meropenem to completed 10 days course. Patient had abcess of right leg and CT noted collection/abscess. He had them drained and cultures grew ESBL. MRI did not show osteomyelitis. Patient again had it drained with little effect. He then proceeded to go to surgery for a I and D on 02/16. He now has the wounds packed with kerlix and wrapped. He has recurrent history of ESBL bacteremia. He had a TTE that revealed no vegetation and EF of 55%. CT revealed distal ileal and right colonic wall thickening, ? colitis, moderate simple ascites, large left pleural effusion with lower lobe collapse, cirrhosis and stable 3 mm pancreatic cysts. He is on the transplant list. He has come here for continued dsg changes. Medical history of cirrhosis of liver, GERD, DM, hyponatremia and SBP. CACHORRO CARLSON, [employer] [address], [address], [place], [address], [facility] 02/25/2019 11:10:47 03/02/2019 text/html This 54 year old male was admitted to [facility] 02/23/19 for continued care and rehab after hospitalization for fever and lower extremity edema/pain. Patient has history of alcoholic liver disease and cirrhosis and is on transplant list. He was initially admitted to [facility], then transferred to [facility] for bacteremia. His blood cultures grew ESBL E. Coli and he started on antibiotics, initially Zosyn which was changed to meropenem, then ertapenem to complete a 10 day course. Patient has history recurrent bacteremia in past few months. During most recent prior [facility] admission, it was suspected that likely source of bacteremia was biliary. Patient had worsened R>L leg edema and US was negative at [facility] for DVT. CT of right lower extremity showed large, organized collection/abscess with enhancing wall and internal septations involing soleus muscle and lateral head of gastrocnemius. Drains were placed by IR on 02/06/19 and 02/10/19. Cultures of abscess grew ESBL. Repeat imaging with MRI of right lower extremity 02/10/19 to r/o osteomyelitis showed no evidence of osteomyelitis, but no adequate drainage. He then proceeded to go to surgery for a I and D on 02/16/19. He now has the wounds packed with Kerlix and wrapped. Patient had a TTE that revealed no vegetation and EF of 55%. Abdominal CT revealed distal ileal and right colonic wall thickening, ? colitis, moderate simple ascites, large left pleural effusion with lower lobe collapse, cirrhosis and stable 3 mm pancreatic cysts. He is on the liver transplant list. The plan is for patient to be discharged tomorrow with meds and services to follow up with PCP, surgical team. Medical history of cirrhosis of liver, GERD, DM, hyponatremia. MOLST: full code Brittaney Mcelroy MD [address] [place] [address], [address], [place], [address], [facility] [employer] 03/02/2019 08:11:36
== END 2024-03-22 15:04 | disposition home or self-care (01) ==
PROVIDERS: PCP Internal Medicine; Visit Provider Urology
DX: Z13.9 Encounter for screening, unspecified (principal); N52.01 Erectile dysfunction due to arterial insufficiency
CPT/HCPCS: 99024

== ENCOUNTER → 2024-03-22 13:48 | Outpatient (BNVA) | payer OTHER, SELFPAY | PROVIDERS: PCP Internal Medicine; Visit Provider Urology | DX: N52.01 Erectile dysfunction due to arterial insufficiency (principal); Z96.0 Presence of urogenital implants | CPT/HCPCS: 81003; 99212 ==

== ENCOUNTER 2024-03-25 07:34 | Outpatient (REF) | payer OTHER, SELFPAY ==
[2024-03-25 08:06] LABS: MANUAL DIFF FLAG NO
[2024-03-25 08:32] LABS: Basophils Percent Auto 0.7 % (0-2); Eosinophils Absolute Auto 0.1 X10*3/uL (0.0-0.4); Eosinophils Percent Auto 2.2 % (0-4); Hematocrit 37.4 % (42.0-52.0); Hemoglobin 13.3 g/dl (14.0-18.0); Imm Gran Abs Auto 0.02 X10*3/uL (0.00-0.03); Imm Gran Pct Auto 0.3 % (0.0-0.4); Lymphocytes Absolute Auto 1.6 X10*3/uL (1.2-4.9); Lymphocytes Percent Auto 27.4 % (20-40); Mean Corpuscular HGB Conc 35.6 g/dl (31.0-36.0); Mean Corpuscular Hemoglobin 29.8 pg (27.0-33.0); Mean Corpuscular Volume 83.9 fL (80.0-98.0); Mean Platelet Volume 10.4 fL (9.4-12.4); Monocytes Absolute Auto 0.6 X10*3/uL (0.1-1.2); Monocytes Percent Auto 9.5 % (2-11); Neutrophils Absolute Auto 3.5 x10*3/uL (2.0-8.3); Neutrophils Percent Auto 59.9 % (45-73); Platelet Count 171 X10*3/uL (160-400); Red Blood Count 4.46 X10*6/uL (4.60-5.80); Red Cell Distribution Width 12.6 % (11.0-16.0); White Blood Count 5.8 X10*3/uL (4.8-10.8)
[2024-03-25 08:50] LABS: Alanine Aminotransferase 46 U/L (0-40); Albumin Level 4.3 g/dL (3.5-5.0); Alkaline Phosphatase 133 U/L (39-117); Anion Gap 12 (12-20); Aspartate Amino Transferase 33 U/L (5-37); Bilirubin Total 0.6 mg/dL (0.0-1.0); Blood Urea Nitrogen 14 mg/dL (9-16); Calcium 9.3 mg/dL (8.4-10.2); Carbon Dioxide 25 mmol/L (22-29); Chloride 107 mmol/L (96-108); Estimated Glomerular Filt Rate > 60; Glucose Random 144 mg/dL (60-115); Magnesium 1.7 mg/dL (1.6-2.6); Potassium 4.6 mmol/L (3.3-5.1); Sodium 139 mmol/L (135-145); Total Protein 7.2 g/dL (6.5-8.0)
[2024-03-26 15:38] LABS: Tacrolimus Prograf 3.5 mcg/L
[2024-03-28 13:18] LABS: Alpha Fetoprotein 1.2 ng/mL (<6.1)
--- OUTSIDE RECORDS SUMMARY | 2024-03-30 04:49 | XMS_ITS ---
Author Organization [facility] Reji khan [place] Address [address] [facility] [place] [address] Care Team Providers Care Forester Aide Name Role Phone Nura Connelly MD, Agustin Primary Care Provide r Unavailable Yovanny Long Unavailable [phone] REASON FOR VISIT last visit pcp 12/31/23, [...] Orally Once a day Active Vitamin D3 619361 UNIT/GM as directed Active Losartan Potassium 25 [...] Ordered Date Performed Result Body Sit e 53266-MLCDYAU NAIL, 6 OR MORE 03/10/2024 N/A Encounters Encounter Location Date Provider Diagnosis [facility] [place] [address] [place] [address] 03/10/2024 Yovanny Long Onychomycosis B35.1 ; Xerosis of skin L85.3 ; Pain in right toe(s) M79.674 and Pain in left toe(s) M79.675 Assessments Encounter Date Diagnosis (ICD Code) Assessment Notes Treatment Notes Treatment Clinical Notes Section Notes 03/10/2024 Onychomycosis (ICD-10 - B35.1) 03/10/2024 Xerosis of skin (ICD-10 - L85.3) Application of [place]-Soothe skin lotion to his feet 03/10/2024 Pain [...] Assessment Notes Xerosis of skin Application of [place] -Soothe skin lotion to his feet Pending Test Test Name Order Date [id number] NAIL, 6 OR MORE 03/10/2024 Next Appt Details Follow Up: 2 Months, Reason: Provider Name:Yovanny Long, 05/26/2024 10:15:00 AM, [address] [facility], [place], [address], Procedure Notes * Category Sub-Category Detail Notes [...] use of a nail nipper and/or dremel-type loader magazine grinder, to a more viable healthy nail plate or bed tissue 6-10. Silver nitrate used for any petechial bleeding as necessary. Definitive antifungal treatment options have been reviewed and discussed with the patient. The patient chooses, no pharmaceutical tx - [address]010 Progress Notes * Shad JON:[birth year] (59 yo M)Acc No.[id number]:03/10/2024 Progress Notes Patient:?Salome JON Provider:?Yovanny Long D.P.M. :1965???Age:59 Y???Sex:Male New e:03/10/2024 Address:[address] [place] [address], [facility] Pcp:Agustin Connelly MD Subjective: * Chief Complaints: [...] Cramps/ Resting?denies.?Muscle cramps / walking?denies.?Generalized aches and pains?denies.?Weakness?denies.?Integ.:?Cnitron?denies.?Scars?denies.?Corns/calluses?admits.?Ingrown nails?denies.?Painful nails?admits.?Open Sores?denies.?Rashes?denies.?Neurologic:?Difficulty sleeping?denies.?Brain disorder?denies.?Numbness?denies.?Balance trouble?denies.?Confusion?denies.?Fainting/blackouts?denies.?Tingling?denies.?Tr emors?denies.? [...] MG Capsule as directed Orally Vitamin D3 866159 UNIT/GM Powder as directed Losartan Potassium 25 [...] Capsule as directed Orally Taking Vitamin D3 033002 UNIT/GM Powder as directed Taking Losartan Potassium [...] toe(s) - M79.675??? Plan: * Treatment: 2.?Onychomycosis?Procedure: 80808-PGSJZKO NAIL, 6 OR MORE * Procedures:?Debride Nail [...] use of a nail nipper and/or dremel-type loader magazine grinder, to a more viable healthy nail plate or bed tissue 6-10. Silver nitrate used for any petechial bleeding as necessary. Definitive antifungal treatment options have been reviewed and discussed with the patient. The patient chooses, no pharmaceutical tx - 30080.? * Procedure Codes:?52762 DEBRI DE NAIL, 6 OR MORE * [...] Long D.P.M. Date:?02/19 Generated for Francisco reagan/Eloina/eTransmitting on:?03/30/2024 04:48 AM EST History and Physical Notes * HPI [...]
--- OUTSIDE RECORDS SUMMARY | 2024-03-30 04:49 | XMS_ITS ---
Author Organization 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 Plant Operator Name Role Phone Nura Connelly MD, Agustin Primary Care Provide r Unavailable Yovanny Long Unavailable [phone] REASON FOR VISIT CX todays appt Encounters Encounter Location Date Provider Diagnosis [address] [address] 03/10/2024 Yovanny Long Plan Of Treatment Next Appt Details Provider Name:Yovanny Long, 05/26/2024 10:15:00 AM, [address] [facility], [place], [address], Progress Notes * Edward GOMEZDOB:[birth year] (59 yo M)Acc No.[id number]:03/10/2024 Patient:?Salome GOMEZ :1965???Age:59 Y???Sex:Male Address:[address] [place] [address], [facility] [place] [address] * true * Date:? Generated for Printi ng/Fageorgeg/eTransmitting on:?03/30/2024 04:48 AM EST
--- OUTSIDE RECORDS SUMMARY | 2024-03-30 04:49 | XMS_ITS | Patient Health Record ---
Author Organization [facility] Reji bill [place] Address [address] [facility] [place] [address] Care Team Providers Care Predator Control Trapper Name Role Phone Nura Connelly MD, Agustin Primary Care Provide r Unavailable Yovanny Long Unavailable [phone] Reason For Referral No Information Medications Medication [...] day for 30 days Active Vitamin D3 025469 UNIT/GM as directed Active Losartan Potassium 25 [...] Ordered Date Performed Result Body Sit e 18289-LQFKKBG NAIL, 6 OR MORE 03/10/2024 N/A Encounters Encounter Location Date [facility] [address] 03/10/2024 Yovanny Long Onychomycosis B35.1 ; Xerosis of skin L85.3 ; Pain in right toe(s) M79.674 and Pain in left toe(s) M79.675 [facility] [place] [address] [place] [address] 03/10/2024 Yovanny Long Assessments Encounter Date Diagnosis (ICD Code) Assessment Notes Treatment Notes Treatment Clinical Notes Section Notes 03/10/2024 Xerosis of skin (ICD-10 - L85.3) Application of [place]-Soothe skin lotion to his feet 03/10/2024 Onychomycosis (ICD-10 - B35.1) 03/10/2024 Pain in right toe(s) (ICD-10 - M79.674) 03/10/2024 Pain in left toe(s) (ICD-10 - M79.675) Plan Of Treatment Pending Test Test Name Order Date [id number] NAIL, 6 OR MORE 03/10/2024 Next Appt Details Provider Name:Yovanny Carbone Ethan, 05/26/2024 10:15:00 AM, [address] [facility], [place], [address], Insurance Providers Payer Name Payer Address Payer Phone Subscriber Number Group Number Insured Name Patient Relationship to Insured Coverage Start Date Coverage End Date [facility] [employer] Claims [address] [place] [id number] Edward Jon Self - patient is the insured Medical (General) History Medical History History ICD Code Back,Hip,and Knee pain Broken bones Cataracts covid-19 Dementia Depression Diabetic Gall bladder problems Hiatal hernia High Blood Pressure Liver disease Psychiatric disorder
== END 2024-03-25 07:35 | disposition home or self-care (01) ==
LOC: HO.LABR 07:34
PROVIDERS: Internal Medicine; PCP Internal Medicine
DX: Z85.05 Personal history of malignant neoplasm of liver (principal); Z94.4 Liver transplant status; Z79.899 Other long term (current) drug therapy
CPT/HCPCS: 36415; 80053; 80197; 82105; 83735; 85025

== ENCOUNTER 2024-04-06 08:08 | Outpatient (REF) | payer OTHER, SELFPAY ==
--- OUTSIDE RECORDS SUMMARY | 2024-04-06 08:13 | XMS_ITS ---
Author Organization [facility] Reji khan [place] Address [address] [facility] [place] [address] Care Team Providers Care Coating Manager Name Role Phone Nuar Connelly MD, Agustin Primary Care Provide r Unavailable Yovanny Long Unavailable [phone] REASON FOR VISIT last visit pcp 12/31/23, [...] Orally Once a day Active Vitamin D3 618673 UNIT/GM as directed Active Losartan Potassium 25 [...] Ordered Date Performed Result Body Sit e 08803-ERBVRTL NAIL, 6 OR MORE 03/10/2024 N/A Encounters Encounter Location Date Provider Diagnosis [facility] [place] [address] [place] [address] 03/10/2024 Yovanny Long Onychomycosis B35.1 ; Xerosis of skin L85.3 ; Pain in right toe(s) M79.674 and Pain in left toe(s) M79.675 Assessments Encounter Date Diagnosis (ICD Code) Assessment Notes Treatment Notes Treatment Clinical Notes Section Notes 03/10/2024 Onychomycosis (ICD-10 - B35.1) 03/10/2024 Xerosis of skin (ICD-10 - L85.3) Application of [place] [employer]-Soothe skin lotion to his feet 03/10/2024 Pain [...] Assessment Notes Xerosis of skin Application of [employer] -Soothe skin lotion to his feet Pending Test Test Name Order Date [id number] NAIL, 6 OR MORE 03/10/2024 Next Appt Details Follow Up: 2 Months, Reason: Provider Name:Yovanny Long, 05/26/2024 10:15:00 AM, [address] [facility], [place], [address], Procedure Notes * Category Sub-Category Detail Notes [...] use of a nail nipper and/or dremel-type chili pepper grinder, to a more viable healthy nail plate or bed tissue 6-10. Silver nitrate used for any petechial bleeding as necessary. Definitive antifungal treatment options have been reviewed and discussed with the patient. The patient chooses, no pharmaceutical tx - 16157 Progress Notes * Shad JON:[birth year] (59 yo M)Acc No.[id number]:03/10/2024 Progress Notes Patient:?Salome JON Provider:?Yovanny Long D.P.M. :1965???Age:59 Y???Sex:Male New e:03/10/2024 Address:[address] [place] [address], [facility] Pcp:Agustin Connelly MD Subjective: * Chief Complaints: [...] MG Capsule as directed Orally Vitamin D3 610760 UNIT/GM Powder as directed Losartan Potassium 25 [...] Capsule as directed Orally Taking Vitamin D3 764702 UNIT/GM Powder as directed Taking Losartan Potassium [...] toe(s) - M79.675??? Plan: * Treatment: 2.?Onychomycosis?Procedure: 97838-YVCXWVF NAIL, 6 OR MORE * Procedures:?Debride Nail [...] use of a nail nipper and/or dremel-type chili pepper grinder, to a more viable healthy nail plate or bed tissue 6-10. Silver nitrate used for any petechial bleeding as necessary. Definitive antifungal treatment options have been reviewed and discussed with the patient. The patient chooses, no pharmaceutical tx - 45997.? * Procedure Codes:?95741 DEBRI DE NAIL, 6 OR MORE * [...] Long D.P.M. Date:?02/19 Generated for Francisco reagan/Eloina/eTransmitting on:?04/06/2024 08:13 AM EST History and Physical Notes * [...]
--- OUTSIDE RECORDS SUMMARY | 2024-04-06 08:14 | XMS_ITS | Data Portability ---
Author Organization [facility] [employer] [facility], Main Office Address [address] [facility], [address] [place] [address] Care Team Providers Care Promotions Specialist Name Role Phone MARICRUZ NEWMAN - 2ND FLOOR OTHER Assessment Encounter Date Assessment Date Assessment LastModified by Organization Details LastModified Time 02/25/2019 02/25/2019 02/24/19 WBC 3.7, Hgb 7.5, Hct 22.4, Plt 59, Na 134, K 4.5, BUN 10, Manager Of International 0.54, calc 7.8, tot prot 5.1, AST 69, ALT 33, A1c 4.2 02/23/19 WBC 3.4, Hgb 7.5, Hct 22.4, Plt 59, Na 128, K 4.3, BUN 11, Manager Of International 0.56, silvia 7.6, tot prot 4.8, tot bili 4.1, AST 65, ALT 25 in hospital [facility] Not available 02/25/2019 10:15:55 Plan of [...] Gastroesop hageal reflux disease without esophagiti s 759107932 Active 2018 FIDEL MAURO [address] [facility], [address], [place], [address], [facility] 9 08:26:33 Cirrhosis of liver 58809453 Active 2018 on transplant list FIDEL MAURO [address] [facility], [address], [place], [address], [facility] 9 08:36:16 Diabetes mellitus 64342612 Active 2018 CACHORRO FIDEL CARLSON [address] [facility], [address], [place], [address], [facility] 9 08:28:07 Hyponatrem ia 98592940 Active 2018 CACHORROFIDEL LEON [address] [facility], [address], [place], [address], [facility] 9 08:28:22 Bacteremia 2399942 Active 2018 CACHORROFIDEL LEON [address] [facility], [address], [place], [address], [facility] 9 08:29:07 Bacterial peritoniti s 309750824 Active 2018 FIDEL MAURO [address] [facility], [address], [place], [address], [facility] 9 09:07:42 Edema of lower extremity 943035671 Active 2018 FIDEL MAURO [address] [facility], [address], [place], [address], [facility] 9 09:15:49 Abscess of lower leg 964900298 Active 2018 Brittaney Mcelroy MD [address] [place] [address], [address], [place], [address], [facility] 9 07:15:49 Anemia 348296916 Active 2018 Brittaney Mcelroy MD [address] [place] [address], [address], [place], [address], [facility] 9 07:16:47 Problem Notes None recorded. Medical Equipment None Reported. Allergies No known drug allergies Medications Not known to be on any medication Vitals Date Recorded Body weight Heart rate Respiratory rate Body temperature Oxygen saturation Oxygen saturation in Arterial blood by Pulse oximetry Systolic blood pressure Diastolic blood pressure Provider Name and Address Organization Details Last Updated DateTime 9 31574.5 1 g 70 /min 20 /min 96.9 [degF] 98 % 98 % 128 mm[Hg] 74 mm[Hg] FIDEL MAURO [address] [facility], [address], [place], [address], [facility] 9 11:06:12 Date Recorded Systolic blood pressure Diastolic blood pressure Provider Name and Address Organization Details Last Updated DateTime 03/02/2019 120 mm[Hg] 68 mm[Hg] Brittaney Mcelroy MD [address] [facility], [address], [place], [address], [facility] 03/02/2019 06:55:54 Social History Question Answer Notes LastModified by Organizat ion Details LastModified Time Tobacco Smoking Status Former Smoker Not Available [facility] 02/14/2020 03:13:21 Do You Have An Advance Directive? Yes FULL CODE-undecid ed About Dialysis And Nutrition-ma y Use Hydration [id number] Information not available 02/14/2020 What Is Your Level Of Alcohol Consumption? None Quit Drinking In 2016 [id number] Information not available 02/14/2020 How Many Years Have You Consumed Alcohol? 30 [id number] Information not available 02/14/2020 How Much Tobacco Do You Chew? None [id number] Information not available 02/14/2020 Do You Or Have You Ever Used E-cigarettes Or Vape? Never Used Electronic Cigarettes [id number] Information not available 02/14/2020 Do You Have A Medical Power Of Concrete Tile Machine Operator? Yes Hcp On File [id number] Information not available 02/14/2020 What Was The Date Of Your Most Recent Tobacco Screening? 02/25/2019 [id number] Information not available 02/14/2020 Do You Or Have You Ever Used Smokeless Tobacco? Never Used Smokeless Tobacco [id number] Information not available 02/14/2020 How Much Tobacco Do You Smoke? 1 PPD [id number] Information not available 02/14/2020 On What Date Was Tobacco Cessation Counseling Provided? 02/25/2019 NA [id number] Information not available 02/14/2020 How Many Years Have You Smoked Tobacco? 30 [id number] Information not available 02/14/2020 Sex: Unknown Functional Status None recorded. Mental Status None recorded. Family History Nothing Reported. Medical History No medical history recorded. Past Encounters Encounter ID Performer Location Encounter Start Date Encounter Closed Date Diagnosis/Indication Diagnosis SNOMED-CT Code Diagnosis ICD10 Code [id number] [address] [address] 02/25/2019 08:25:36 03/04/2019 13:41:33 Bacteremia 1535585 R78.81 Hyponatremia 29945570 E8 7.1 Cirrhosis of liver 007 K70.31 Diabetes mellitus 206067 09 E11.9 Gastroesop hageal reflux disease without esophagitis 353826006 K21.9 Bacterial peritonitis 19 8594328 K65.2 Edema of l ower extremity 945263773 R60.0 [id number] Brittaney Mcelroy MD [address] [address] 03/02/2019 06:54:11 03/04/2019 13:42:54 Cirrhosis of liver 39855689 K70.31 Diabetes mellitus 688705 09 E11.9 Gastroesop hageal reflux disease without esophagitis 690963951 K21.9 Anemia 563997880 D50.8 Bacteremia 7715079 R78.8 1 Bacterial peritonitis 19 2165796 K65.2 Health Concerns Section Related Observation LastModified by Organization Detai ls LastModified Time None Recorded Concern Status LastModified by Organization Details LastModified Time None Recorded Advance Directives Directive Y: FULL CODE-undecided about dialysis and nutrition-may use hydration Payers Encounter Date Sequence Insurance Name Policy Number Policy Banks Covered Member ID Banks Member ID Guarantor Name 02/25/2019 2 [place] [facility] [id number] Edward Jon 02/25/2019 1 [employer] [facility] - DOS PRIOR TO 2022 - DUAL ELIGIBLE (MEDICARE REPLACEMENT/AD VANTAGE - HMO) Edward Jon [id number] Edwrad Jon 03/02/2019 2 [place] [facility] [id number] Edward Jon 03/02/2019 1 [employer] [facility] [employer] - DOS PRIOR TO 2022 - DUAL ELIGIBLE (MEDICARE REPLACEMENT/AD VANTAGE - HMO) Edward Jon [id number] Edward Jon Notes Date Note Type Note Provider Name and Address Organization Details Recorded Time 02/25/2019 text/html A 54 year old leonel le being seen for a initial intake note. Patient was at [facility] for fever and lower extremity edema/pain. He was transferred to [facility] for bacteremia. He grew ESBL E. [...] GERD, DM, hyponatremia and SBP. CACHORRO CARLSON, TOUCHER UP [address] [facility], [address], [place], [address], [facility] 02/25/2019 11:10:47 03/02/2019 text/html This 54 year old male was admitted to [facility] 02/23/19 for continued care and rehab after hospitalization for fever and lower extremity edema/pain. Patient has history of alcoholic liver disease and cirrhosis and is on transplant list. He was initially admitted to [facility], then transferred to [facility] for bacteremia. His blood cultures grew ESBL E. Coli and he started on antibiotics, initially Zosyn which was changed to meropenem, then ertapenem to complete a 10 day course. Patient has history recurrent bacteremia in past few months. During most recent prior [facility] admission, it was suspected that likely source of bacteremia was biliary. Patient had worsened R>L leg edema and US was negative at [facility] for DVT. CT of right lower extremity [...] hyponatremia. MOLST: full code Brittaney Mcelroy MD [address] [place] [address], [address], [place], [address], [facility] [employer] 03/02/2019 08:11:36
--- OUTSIDE RECORDS SUMMARY | 2024-04-06 08:14 | XMS_ITS | Patient Health Record ---
[facility] Reji bill Marne Address [address] [facility] [place] [address] Care Team Providers Care Station Mechanic Helper Name Role Phone Nura Connelly MD, Agustin Primary Care Provide r Unavailable Yovanny Long Unavailable [phone] Reason For Referral No Information Medications Medication [...] day for 30 days Active Vitamin D3 668384 UNIT/GM as directed Active Losartan Potassium 25 [...] Ordered Date Performed Result Body Sit e 33687-PLXELRP NAIL, 6 OR MORE 03/10/2024 N/A Encounters Encounter Location Date [facility] [address] 03/10/2024 Yovanny Long Onychomycosis B35.1 ; Xerosis of skin L85.3 ; Pain in right toe(s) M79.674 and Pain in left toe(s) M79.675 [facility] [place] [address] [place] [address] 03/10/2024 Yovanny Long Assessments Encounter Date Diagnosis (ICD Code) Assessment Notes Treatment Notes Treatment Clinical Notes Section Notes 03/10/2024 Xerosis of skin (ICD-10 - L85.3) Application of [place]-Soothe skin lotion to his feet 03/10/2024 Onychomycosis (ICD-10 - B35.1) 03/10/2024 Pain in right toe(s) (ICD-10 - M79.674) 03/10/2024 Pain in left toe(s) (ICD-10 - M79.675) Plan Of Treatment Pending Test Test Name Order Date [id number] NAIL, 6 OR MORE 03/10/2024 Next Appt Details Provider Name:Yovanny Carbone Ethan, 05/26/2024 10:15:00 AM, [address] [facility], [place], [address], Insurance Providers Payer Name Payer Address Payer Phone Subscriber Number Group Number Insured Name Patient Relationship to Insured Coverage Start Date Coverage End Date [facility] [employer] S[employer] Claims [address] [place] [id number] Edward Jon Self - patient is the insured Medical (General) History Medical History History ICD Code Back,Hip,and Knee pain Broken bones Cataracts covid-19 Dementia Depression Diabetic Gall bladder problems Hiatal hernia High Blood Pressure Liver disease Psychiatric disorder
--- OUTSIDE RECORDS SUMMARY | 2024-04-06 08:14 | XMS_ITS ---
Author Organization [facility] Address [address] [facility] [place] [address] Care Team Providers Care Engineer Intern Name Role Phone Nura Connelly MD, Agustin Primary Care Provide r Unavailable Yovanny Long Unavailable [phone] REASON FOR VISIT CX todays appt Encounters Encounter Location Date Provider Diagnosis [address] [address] 03/10/2024 Yovanny Long Plan Of Treatment Next Appt Details Provider Name:Yovanny Long, 05/26/2024 10:15:00 AM, [address] [place] [address], [place], [address], Progress Notes * Edward GOMEZDOB:[birth year] (59 yo M)Acc No.[id number]:03/10/2024 Patient:?Salome GOMEZ :1965???Age:59 Y???Sex:Male Address:[address] [place] [address]J, [facility] [place] [address] * true * Date:? Generated for Printi ng/Fageorgeg/eTransmitting on:?04/06/2024 08:13 AM EST
[2024-04-06 12:27] LABS: Albumin Level 4.3 g/dL (3.5-5.0); Alkaline Phosphatase 112 U/L (39-117); Anion Gap 9 (12-20); Aspartate Amino Transferase 36 U/L (5-37); Bilirubin Total 0.6 mg/dL (0.0-1.0); Blood Urea Nitrogen 16 mg/dL (9-16); Carbon Dioxide 27 mmol/L (22-29); Chloride 106 mmol/L (96-108); Cholesterol 177 mg/dL (<200); Estimated Glomerular Filt Rate > 60; Glucose Random 160 mg/dL (60-115); HDL Cholesterol 41 mg/dL (>40); LDL Cholesterol Calculated 115 mg/dL (<100); Potassium 4.5 mmol/L (3.3-5.1); Sodium 137 mmol/L (135-145); Total Protein 7.1 g/dL (6.5-8.0); Triglycerides 109 mg/dL (<150)
[2024-04-06 12:32] LABS: Prostate Specific Antigen Scr 0.19 ng/mL (<0.05-4.0)
[2024-04-06 12:38] LABS: Alanine Aminotransferase 48 U/L (0-40)
[2024-04-06 12:45] LABS: Creatinine Urine 216.22 mg/dL; Microalbum/Creatinine Ratio Ur 31.4 ug/mg cr (<30)
== END 2024-04-06 08:09 | disposition home or self-care (01) ==
LOC: HO.HHCL 08:08
PROVIDERS: Visit Provider Internal Medicine
DX: Z12.5 Encounter for screening for malignant neoplasm of prostate (principal); E11.9 Type 2 diabetes mellitus without complications; N52.8 Other male erectile dysfunction; Z79.4 Long term (current) use of insulin
CPT/HCPCS: 36415; 80053; 80061; 82043; 82570; 84153

== ENCOUNTER 2024-04-25 06:59 | Outpatient (REF) | payer OTHER, SELFPAY ==
--- OUTSIDE RECORDS SUMMARY | 2024-04-25 07:02 | XMS_ITS | Data Portability ---
Author Organization [facility] [employer] [facility], Main Office Address [address] [facility], [address] [place] [address] Care Team Providers Care Psychiatric Rn Name Role Phone MARICRUZ NEWMAN - 2ND FLOOR OTHER Assessment Encounter Date Assessment Date Assessment LastModified by Organization Details LastModified Time 02/25/2019 02/25/2019 02/24/19 WBC 3.7, Hgb 7.5, Hct 22.4, Plt 59, Na 134, K 4.5, BUN 10, Logistics Clerk 0.54, calc 7.8, tot prot 5.1, AST 69, ALT 33, A1c 4.2 02/23/19 WBC 3.4, Hgb 7.5, Hct 22.4, Plt 59, Na 128, K 4.3, BUN 11, Logistics Clerk 0.56, silvia 7.6, tot prot 4.8, tot bili 4.1, AST 65, ALT 25 in hospital [facility] Not available 02/25/2019 10:15:55 Plan of Treatment [...] Gastroesop hageal reflux disease without esophagiti s 962531626 Active 2018 FIDEL MAURO [address] [facility], [address], [place], [address], [facility] [employer] 9 08:26:33 Cirrhosis of liver 98200421 Active 2018 on transplant list FIDEL MAURO [address] [facility], [address], [place], [address], [facility] 9 08:36:16 Diabetes mellitus 83922319 Active 2018 CACHORRO FIDEL CARLSON [address] [facility], [address], [place], [address], [facility] 9 08:28:07 Hyponatrem ia 22005518 Active 2018 CACHORROFIDEL LEON [address] [facility], [address], [place], [address], [facility] 9 08:28:22 Bacteremia 3578392 Active 2018 CACHORROFIDEL LEON [address] [facility], [address], [place], [address], [facility] 9 08:29:07 Bacterial peritoniti s 739127233 Active 2018 FIDEL MAURO [address] [facility], [address], [place], [address], [facility] 9 09:07:42 Edema of lower extremity 888138206 Active 2018 FIDEL MAURO [address] [facility], [address], [place], [address], [facility] 9 09:15:49 Abscess of lower leg 542139288 Active 2018 Brittaney Mcelroy MD [address] [place] [address], [address], [place], [address], [facility] 9 07:15:49 Anemia 056316171 Active 2018 Brittaney Mcelroy MD [address] [place] [address], [address], [place], [address], [employer] 9 07:16:47 Problem Notes None recorded. Medical Equipment None Reported. Allergies No known drug allergies Medications Not known to be on any medication Vitals Date Recorded Body weight Heart rate Respiratory rate Body temperature Oxygen saturation Oxygen saturation in Arterial blood by Pulse oximetry Systolic blood pressure Diastolic blood pressure Provider Name and Address Organization Details Last Updated DateTime 9 76799.5 1 g 70 /min 20 /min 96.9 [degF] 98 % 98 % 128 mm[Hg] 74 mm[Hg] FIDEL MAURO [address] [facility], [address], [place], [address], [facility] 9 11:06:12 Date Recorded Systolic blood pressure Diastolic blood pressure Provider Name and Address Organization Details Last Updated DateTime 03/02/2019 120 mm[Hg] 68 mm[Hg] Brittaney Mcelroy MD [address] [facility], [address], [place], [address], [facility] [employer] 03/02/2019 06:55:54 Social History Question Answer Notes LastModified by Organizat ion Details LastModified Time Tobacco Smoking Status Former Smoker Not Available [facility] 02/14/2020 03:13:21 Do You Have An Advance Directive? Yes FULL CODE-undecid ed About Dialysis And Nutrition-ma y Use Hydration [id number] Information not available 02/14/2020 What Is Your Level Of Alcohol Consumption? None Quit Drinking In 2016 [id number] Information not available 02/14/2020 How Many Years Have You Consumed Alcohol? 30 [id number] Information not available 02/14/2020 How Much Tobacco Do You Chew? None [id number] Information not available 02/14/2020 Do You Or Have You Ever Used E-cigarettes Or Vape? Never Used Electronic Cigarettes [id number] Information not available 02/14/2020 Do You Have A Medical Power Of Diabetes Solutions Specialist? Yes Hcp On File [id number] Information not available 02/14/2020 What Was The Date Of Your Most Recent Tobacco Screening? 02/25/2019 [id number] Information not available 02/14/2020 Do You Or Have You Ever Used Smokeless Tobacco? Never Used Smokeless Tobacco [id number] Information not available 02/14/2020 How Much Tobacco Do You Smoke? 1 PPD [id number] Information not available 02/14/2020 On What Date Was Tobacco Cessation Counseling Provided? 02/25/2019 NA [id number] Information not available 02/14/2020 How Many Years Have You Smoked Tobacco? 30 [id number] Information not available 02/14/2020 Sex: Unknown Functional Status None recorded. Mental Status None recorded. Family History Nothing Reported. Medical History No medical history recorded. Past Encounters Encounter ID Performer Location Encounter Start Date Encounter Closed Date Diagnosis/Indication Diagnosis SNOMED-CT Code Diagnosis ICD10 Code Diagnosis Note [id number] FIDEL MAURO [address] [address] 02/25/2019 08:25:36 03/04/2019 13:41:33 Bacteremia 0163506 R78.81 completed treatmentm onitor dsg changes qdwet to dryareas clean Hyponatremia 32604685 E8 7.1 resolvedmo nitor labs Cirrhosis of liver K70.31 lactulose 30 mls tid 3-4 stools a dayspirono lactone 50 mg qdmonitoro n transplant listfollow s with [facility] Diabetes mellitus 299398 09 E11.9 lantus 8 units q lhSBOD6i here is 4.2monitor for s/s of hypo/hyper glycemia Gastroesop hageal reflux disease without esophagitis 881909338 K21.9 omeprazole 20 mg qdmonitor for symptoms Bacterial peritonitis 19 0783874 K65.2 recurrentc ipro 500 mg qd prophymoni tor for symptoms Edema of l ower extremity 895280994 R60.0 lasix 20 mg qdmonitor edema [id number] Brittaney Mcelroy MD [address] [address] 03/02/2019 06:54:11 03/04/2019 13:42:54 Cirrhosis of liver 60442485 K70.31 fu GIlactulos e 20 gm tidfurosem concetta 20 mg dailymagne sium 400 mg dailyspiro nolactone 25 mg dailyon transplant list [facility] Diabetes mellitus 995482 09 E11.9 Humalog per sliding scaleLantu s 8U dailywill monitor Gastroesop hageal reflux disease without esophagitis 281418892 K21.9 omeprazole 20 mg dailywill monitor Anemia 641935724 D50.8 suspect multifacto rial including GI blood loss, chronic diseaseawa it B12, folateiron 325 mg bidwill continue to monitor Bacteremia 3510612 R78.8 1 antibiotic s completedd aily dressing changes legfu surgery Bacterial peritonitis 19 0689241 K65.2 history of in pastCipro 500 mg daily for prophylaxi sfu GI [facility] Health Concerns Section Related Observation LastModified by Organization Detai ls LastModified Time None Recorded Concern Status LastModified by Organization Details LastModified Time None Recorded Advance Directives Directive Y: FULL CODE-undecided about dialysis and nutrition-may use hydration Payers Encounter Date Sequence Insurance Name Policy Number Policy Banks Covered Member ID Banks Member ID Guarantor Name 02/25/2019 2 [place] [facility] [id number] [facility] 02/25/2019 1 [facility] - DOS PRIOR TO 2022 - DUAL ELIGIBLE (MEDICARE REPLACEMENT/AD VANTAGE - HMO) [facility] [id number] [facility] 03/02/2019 2 [place] [facility] Edward Jon [id number] [facility] 03/02/2019 1 [facility] - DOS PRIOR TO 2022 - DUAL ELIGIBLE (MEDICARE REPLACEMENT/AD VANTAGE - HMO) [facility] [id number] [facility] Notes Date Note Type Note Provider Name and Address Organization Details Recorded Time 02/25/2019 text/html A 54 year old ma le being seen for a initial intake note. Patient was at [facility] for fever and lower extremity edema/pain. He was transferred to [facility] for bacteremia. He grew ESBL E. Coli [...] GERD, DM, hyponatremia and SBP. CACHORRO CARLSON, SIDE PANEL PADDER [address] [facility], [address], [place], [address], [facility] 02/25/2019 11:10:47 03/02/2019 text/html This 54 year old male was admitted to [facility] 02/23/19 for continued care and rehab after hospitalization for fever and lower extremity edema/pain. Patient has history of alcoholic liver disease and cirrhosis and is on transplant list. He was initially admitted to [facility], then transferred to [facility] for bacteremia. His blood cultures grew ESBL E. Coli and he started on antibiotics, initially Zosyn which was changed to meropenem, then ertapenem to complete a 10 day course. Patient has history recurrent bacteremia in past few months. During most recent prior [facility] admission, it was suspected that likely source of bacteremia was biliary. Patient had worsened R>L leg edema and US was negative at [facility] for DVT. CT of right lower [...] hyponatremia. MOLST: full code Brittaney Mcelroy MD [address] [facility], [address], [place], [address], [facility] 03/02/2019 08:11:36
--- OUTSIDE RECORDS SUMMARY | 2024-04-25 07:02 | XMS_ITS ---
Author Organization [facility] Address [address] [facility] [place] [address] Care Team Providers Care Gas Fitter Helper Name Role Phone Nura Connelly MD, Agustin Primary Care Provide r Unavailable Yovanny Long Unavailable [phone] REASON FOR VISIT CX todays appt Encounters Encounter Location Date Provider Diagnosis [address] [address] 03/10/2024 Yovanny Long Plan Of Treatment Next Appt Details Provider Name:Yovanny Long, 05/26/2024 10:15:00 AM, [address] [place] [address], [place], [address], Progress Notes * Edward GOMEZDOB:[birth year] (59 yo M)Acc No.[id number]:03/10/2024 Patient:?Salome GOMEZ :1965???Age:59 Y???Sex:Male Address:[address] [place] [address] 2J, [facility] [place] [address] * true * Date:? Generated for Printi ng/Fageorgeg/eTransmitting on:?04/25/2024 07:02 AM EST
--- OUTSIDE RECORDS SUMMARY | 2024-04-25 07:02 | XMS_ITS | Patient Health Record ---
[facility] Reji bill [place] Address [address] [place] [address] Care Team Providers Care Hot Wound Spring Production Supervisor Name Role Phone Nura Connelly MD, Agustin Primary Care Provide r Unavailable Yovanny Long Unavailable [phone] Reason For Referral No Information Medications Medication [...] day for 30 days Active Vitamin D3 801816 UNIT/GM as directed Active Losartan Potassium 25 [...] Ordered Date Performed Result Body Sit e 92819-HLYSVIU NAIL, 6 OR MORE 03/10/2024 N/A Encounters Encounter Location Date [facility] [address] 03/10/2024 Yovanny Long Onychomycosis B35.1 ; Xerosis of skin L85.3 ; Pain in right toe(s) M79.674 and Pain in left toe(s) M79.675 [facility] [address] [place] [address] 03/10/2024 Yovanny Long Assessments Encounter Date Diagnosis (ICD Code) Assessment Notes Treatment Notes Treatment Clinical Notes Section Notes 03/10/2024 Xerosis of skin (ICD-10 - L85.3) Application of [place]-Soothe skin lotion to his feet 03/10/2024 Onychomycosis (ICD-10 - B35.1) 03/10/2024 Pain in right toe(s) (ICD-10 - M79.674) 03/10/2024 Pain in left toe(s) (ICD-10 - M79.675) Plan Of Treatment Pending Test Test Name Order Date [id number] NAIL, 6 OR MORE 03/10/2024 Next Appt Details Provider Name:Yovanny Carbone Ethan, 05/26/2024 10:15:00 AM, [address] [facility], [place], [address], Insurance Providers Payer Name Payer Address Payer Phone Subscriber Number Group Number Insured Name Patient Relationship to Insured Coverage Start Date Coverage End Date [facility] [employer] Claims [address] [place] [id number] Edward Jon Self - patient is the insured Medical (General) History Medical History History ICD Code Back,Hip,and Knee pain Broken bones Cataracts covid-19 Dementia Depression Diabetic Gall bladder problems Hiatal hernia High Blood Pressure Liver disease Psychiatric disorder
[2024-04-25 07:20] LABS: MANUAL DIFF FLAG NO
[2024-04-25 08:20] LABS: Basophils Percent Auto 0.8 % (0-2); Eosinophils Absolute Auto 0.1 X10*3/uL (0.0-0.4); Eosinophils Percent Auto 1.3 % (0-4); Hematocrit 40.6 % (42.0-52.0); Hemoglobin 14.1 g/dl (14.0-18.0); Imm Gran Abs Auto 0.02 X10*3/uL (0.00-0.03); Imm Gran Pct Auto 0.4 % (0.0-0.4); Lymphocytes Absolute Auto 1.6 X10*3/uL (1.2-4.9); Lymphocytes Percent Auto 31.3 % (20-40); Mean Corpuscular HGB Conc 34.7 g/dl (31.0-36.0); Mean Corpuscular Hemoglobin 29.3 pg (27.0-33.0); Mean Corpuscular Volume 84.4 fL (80.0-98.0); Mean Platelet Volume 10.9 fL (9.4-12.4); Monocytes Absolute Auto 0.6 X10*3/uL (0.1-1.2); Monocytes Percent Auto 10.6 % (2-11); Neutrophils Absolute Auto 2.9 x10*3/uL (2.0-8.3); Neutrophils Percent Auto 55.6 % (45-73); Platelet Count 127 X10*3/uL (160-400); Red Blood Count 4.81 X10*6/uL (4.60-5.80); Red Cell Distribution Width 12.8 % (11.0-16.0); White Blood Count 5.2 X10*3/uL (4.8-10.8)
[2024-04-25 09:16] LABS: Alanine Aminotransferase 53 U/L (0-40); Albumin Level 4.4 g/dL (3.5-5.0); Alkaline Phosphatase 113 U/L (39-117); Anion Gap 11 (12-20); Aspartate Amino Transferase 37 U/L (5-37); Bilirubin Total 0.8 mg/dL (0.0-1.0); Blood Urea Nitrogen 18 mg/dL (9-16); Calcium 9.6 mg/dL (8.4-10.2); Carbon Dioxide 23 mmol/L (22-29); Chloride 110 mmol/L (96-108); Estimated Glomerular Filt Rate > 60; Glucose Random 155 mg/dL (60-115); Magnesium 1.7 mg/dL (1.6-2.6); Potassium 4.5 mmol/L (3.3-5.1); Sodium 139 mmol/L (135-145); Total Protein 7.1 g/dL (6.5-8.0)
[2024-04-27 13:05] LABS: Alpha Fetoprotein 1.4 ng/mL (<6.1)
[2024-04-28 17:38] LABS: Tacrolimus Prograf 5.5 mcg/L
== END 2024-04-25 07:00 | disposition home or self-care (01) ==
LOC: HO.LABR 06:59
PROVIDERS: PCP Internal Medicine; Visit Provider Internal Medicine
DX: Z94.4 Liver transplant status (principal); Z79.899 Other long term (current) drug therapy
CPT/HCPCS: 36415; 80053; 80197; 82105; 83735; 85025

== ENCOUNTER 2024-04-29 15:47 | Outpatient (AMB) | payer OTHER, SELFPAY ==
--- NOTE | 2024-04-29 15:54 | MHC.OFFVIS ---
Intake Visit Reasons: Penile Prosthesis, 6w follow up Intake Note: Patient is present for penile prosthesis, 6w f/u Urology Medication:sildenafil Antibiotic Allergy:none Blood Thinner:none Delivery Assistant Required: No Allergies No Known Allergies [No Known Allergies*] Allergy (Verified 04/29/24 15:55) HPI Comments Details: Edward is a male. He is a patient of . He seen for the following urologic conditions - erectile dysfunction Faroese interpretation provided by qualified medical communication specialist in office Three-month follow-up from penile prosthetic placement Previously been cleared for intercourse activity Instructions for daily manipulation and shower Happy with prosthetic Tolerating inflation and deflation Has been used for intimacy Erectile dysfunction - penile prosthetic February 2024 Longstanding Had liver transplant in mid 2019 Has been using 200 mg of Viagra with minimal success Associated symptoms including weakness of stream and incomplete bladder emptying PFSH Medical History (Updated 03/03/24 @ 09:10 by Ai Jaeger, RN) Liver failure Hx of hepatitis Anxiety and depression Tubular adenoma of colon Diabetes 1.5, managed as type 2 Hx of substance abuse GERD (gastroesophageal reflux disease) Surgical History (Updated 03/07/24 @ 06:42 by Patricia Elias RN) History of surgery on lower extremity History of local excision of skin lesion (04/16/23) Hx of colonoscopy Hx of esophagogastroduodenoscopy History of open reduction and internal fixation (ORIF) procedure History of appendectomy S/P liver transplant Social History Household Members: None Are you a primary health care consultant to a significant other at home: No Do you presently have visiting nurse or other home services: No Alcohol intake: never Patient Tobacco Use Status: Former Tobacco user Tobacco use type: Cigarette Years Smoked: 15 Current occupational status: disabled Review of Systems Const Denies chills and Denies fever(s) Card Reports no additional complaints and Denies syncope Resp Denies cough GI Denies abdominal pain and Denies heartburn Reports as per HPI and Denies change in libido Neuro Denies syncope Psych Denies change in libido Endo Denies change in libido Physical Exam Const General: cooperative, healthy appearing, comfortable and no acute distress Orientation/consciousness: patient oriented x3 HEENT Face and sinus: Yes normal facial exam Mouth: moist mucous membranes Neck Neck: Yes normal visual inspection, Yes full ROM and Yes trachea midline Chest Chest palpation & inspection: normal inspection of the chest Resp Effort & Inspection: normal respiratory effort, able to speak in complete sentences and no respiratory distress GI Inspection: Yes normal to inspection Back/Spine/Pelvis Cervical Spine: normal cervical lordosis Thoracic/Lumbar Spine: thoracic and lumbar spine normal to inspection Skin General skin exam: no rashes or lesions noted Neuro General: patient oriented x3, gait normal, tone normal and moves all extremities Extrem General: Yes normal to inspection and Yes capillary refill normal Assessment & Plan Assessment & Plan (1) Erectile dysfunction due to arterial insufficiency: Comment: Trial 10 mg tadalafil daily Code(s): N52.01 - Erectile dysfunction due to arterial insufficiency Category: Medical Plan Six-month follow-up office Patient Instructions: Imaging studies, laboratory and physical exam results were discussed and reviewed in detail. No major barriers to patient understanding were identified. An opportunity to ask questions regarding the treatment plan was provided. All questions were answered. The patient expressed understanding and agreement with the above treatment plan. The patient is aware they should contact our office by phone for worsening of their current condition or the appearance of new urologic symptoms. Compliance is encouraged with any medications and followup testing that is ordered. It is a privilege to participate in the urologic care of your patient. If you have any questions or concerns regarding treatment for the above conditions, or other urologic issues, please do not hesitate to contact me. The office telephone contact is [phone]. This note is constructed using voice recognition software. While every effort has been made to ensure accuracy automotive manager errors may have been included. Yours sincerely, Dr Leonidas Miranda MD, [facility] - Urology Providers of Expert, Compassionate Care for the Genitourinary System Coding Level of Care Code Est Pt Level 3 (99821) Diagnoses Erectile dysfunction due to arterial insufficiency N52.01
== END 2024-04-29 16:09 | disposition home or self-care (01) ==
LOC: HO.HUSH 15:47
PROVIDERS: PCP Internal Medicine; Visit Provider Urology
DX: N52.01 Erectile dysfunction due to arterial insufficiency (principal)
CPT/HCPCS: 99024

== ENCOUNTER → 2024-04-29 15:47 | Outpatient (BNVA) | payer OTHER, SELFPAY | PROVIDERS: PCP Internal Medicine; Visit Provider Urology | DX: N52.01 Erectile dysfunction due to arterial insufficiency (principal) | CPT/HCPCS: 99212 ==

== ENCOUNTER 2024-05-20 07:30 | Outpatient (REF) | payer OTHER, SELFPAY ==
--- OUTSIDE RECORDS SUMMARY | 2024-05-20 07:34 | XMS_ITS | Encounter Summary ---
Author Organization [employer] Address [address] [place] [address] 7t [place] [address] Care Team Providers Care Temperature Regulator Name Role Phone Agustin Marrero MD Primary Care Provide r Reason for Visit * Reason Comments Med Refill Encounter Details Date Type Department Care Team ([facility] st Contact Info) Description 11/02/2023 Refill [facility] MEDICINE [address] [place], [place] [phone] Lela Wu MD [address] [place], [place] [phone] Primary insomnia Social History Tobacco Use Types Packs/Day Years Used Date Smoking Tobacco: Former Cigarettes Passive Smoke Exposure: Past Smokeless Tobacco: Never Alcohol Use Standard Drinks/Week Comments Never 0 (1 standard drink = 0.6 oz pur e alcohol) Depression Answer Date Recorded Patient Health Questionnaire-9 Score 5 06/16/2023 Patient Health Questionnaire-9 Score 5 06/16/2023 Last PHQ-9: Questionnaire Data Not on file 0 06/16/2023 Housing Stability Answer Date Recorded What is your housing situation today? I have fay gonsalez 06/16/[address] you li ve. Do you have problems with any of the following? None of the above 06/16/2023 Food Insecurity Answer Date Recorded Within the past 12 months, y ou worried that your food would run out before you got money to buy more: Never True 06/16/2023 Within the past 12 months,th e food you bought just didn't last and you didn't have enough money to get more: Never True Transportation Answer Date Recorded In the past 12 months, has l ack of transportation kept you from medical appts, meetings, work or from getting things needed for daily living? No 06/16/2023 Utilities Answer Date Recorded In the past 12 months, has t he electric, gas, oil or water company threatened to shut off services in your home? No 06/16/2023 Depression Answer Date Recorded Patient Health Questionnaire-2 Score 0 06/16/2023 Sex and Gender Information Value Date Recorded Sex Assigned at Male 02/17/2022 10:14 AM EDT Legal Sex Male 10:14 AM EDT Gender Identity Male 02/17/2022 10:14 AM EDT Sexual Orientation Straight 02/17/2022 10 :14 AM EDT documented as of this encounter Plan of Treatment Upcoming Encounters Date Type Department Care Team (Late st Contact Info) Description 05/31/2024 9:45 AM EST Office Visit [facility] [address] [place] [address] 07/05/2024 10:00 AM EDT Office Visit [facility] [address] [place] [address] Agustin Marrero MD [address] [place] [address] 11/16/2024 10:00 AM EDT Office Visit [facility] ADULT DENTAL [address] [place] [address] Paco, Catherine [address] [place] [address] documented as of this encounter Visit Diagnoses Diagnosis Primary insomnia Persistent disorder of initiating or maintaining sleep documented in this encounter Additional Health Concerns Assessment Noted Time PHQ-9 Depression Total Score: 5 06/16/19 24 9:35 AM EST documented as of this encounter Care Teams Temperature Regulator Relationship Specialty Start Date End Date Agustin Marrero MD [address] [place] [address] PCP - General Internal Medicine 01/25/14 [facility] 06/13/16 documented as of this encounter
--- OUTSIDE RECORDS SUMMARY | 2024-05-20 07:34 | XMS_ITS | Encounter Summary ---
Author Organization [employer] Address [address] [place] [address] 7t [place] [address] Care Team Providers Care Pattern Marking Supervisor Name Role Phone Agustin Marrero MD Primary Care Provide r Reason for Visit * Reason Comments Med Refill Encounter Details Date Type Department Care Team ([facility] st Contact Info) Description 10/28/2023 Refill [facility] MED[facility]INE [address] [place], [place] [phone] Lela Wu MD [address] [place], [place] [phone] Primary insomnia Social History Tobacco Use Types [...] Description 05/31/2024 9:45 AM EST Office Visit [facility] MEDICINE [address] [place] [address] 07/05/2024 10:00 AM EDT Office Visit [facility] MEDICINE [address] [place] [address] Agustin Marrero MD [address] [place] [address] 11/16/2024 10:00 AM EDT Office Visit [facility] ADULT DENTAL [address] [place] [address] Paco, Catherine [address] [place] [address] documented as of this encounter Visit Diagnoses Diagnosis Primary insomnia Persistent disorder of initiating or maintaining sleep documented in this encounter Additional Health Concerns Assessment Noted Time PHQ-9 Depression Total Score: 5 06/16/19 24 9:35 AM EST documented as of this encounter Care Teams Pattern Marking Supervisor Relationship Specialty Start Date End Date Agustin Marrero MD [address] [place] [address] PCP - General Internal Medicine 01/25/14 [facility] 06/13/16 documented as of this encounter
--- OUTSIDE RECORDS SUMMARY | 2024-05-20 07:34 | XMS_ITS | Encounter Summary ---
Author Organization [facility] Address [address] [place] [address] Care Team Providers Care All Source Intelligence Name Role Phone Agustin Mix Primary Care Provider + Encounter Details Date Type Department Care Team (Late st Contact Info) Description 01/21/2017 Transplant Conversio n Encounter [facility] Health Information Management [address] [place] [address] Provider, [facility] Social History Tobacco Use Types Packs/Day Years Used Date Smoking Tobacco: Former Comments:: Sex and Gender Information Value Date Recorded Sex Assigned at Male 11/20/2022 12:22 PM EDT Legal Sex Male 5:53 PM EDT Gender Identity Male 11/20/2022 12:22 PM EDT Sexual Orientation Choose not to disclose 2022 12:22 PM EDT documented as of this encounter Plan of Treatment Upcoming Encounters Date Type Department Care Team (Late st Contact Info) Description 08/01/2024 11:30 AM EDT Follow-Up [facility] Liver Transplant Services [address] [place] [address] Dylan Phelps MD [address] [place] [address] documented as of this encounter Visit Diagnoses Not on filedocumented in this encounter Additional Health Concerns Infection Onset Date Last Indicated Resolved Time 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 + BC at [facility] > 6 months ago - can D/C contact isolation 01/20/2019 02/10/2019 08/10/2019 9:27 AM E DT COVID-19 - Suspected infection 03/05/2020 03/17/2020 03/17/2020 7:55 PM EST COVID-19 - Confirmed infection 05/01/2020 05/07/2020 06/01/2020 5:06 PM EST COVID-19 - Suspected infection 05/10/2020 05/10/2020 05/24/2020 10:34 PM EST documented as of this encounter Care Teams All Source Intelligence Relationship Specialty Start Date End Date Agustin Mix [address] [place] [address] PCP - General Internal Medicine 04/15/17 documented as of this encounter
--- OUTSIDE RECORDS SUMMARY | 2024-05-20 07:34 | XMS_ITS | Encounter Summary ---
Author Organization [employer] Address [address] [place] [address] 7t [place] [address] Care Team Providers Care Stripping Shovel Operator Name Role Phone Agustin Marrero MD Primary Care Provide r Reason for Visit * Reason Comments Med Refill Encounter Details Date Type Department Care Team ([facility] st Contact Info) Description 10/20/2023 Refill [facility] [address] [place], [place] [phone] Agustin Marrero MD [address] [place] [address] Chronic midline low back pain without sciatica Social History Tobacco Use Types Packs/Day Years [...] Description 05/31/2024 9:45 AM EST Office Visit [facility] MEDICINE [address] [place] [address] 07/05/2024 10:00 AM EDT Office Visit [facility] MEDICINE [address] [place] [address] Agustin Marrero MD [address] [place] [address] 11/16/2024 10:00 AM EDT Office Visit [facility] ADULT DENTAL [address] [place] [address] Paco, Catherine [address] [place] [address] documented as of this encounter Visit Diagnoses Diagnosis Chronic midline low back pain without sciatica documented in this encounter Additional Health Concerns Assessment Noted Time PHQ-9 Depression Total Score: 5 06/16/19 9:35 AM EST documented as of this encounter Care Teams Stripping Shovel Operator Relationship Specialty Start Date End Date Agustin Marrero MD [address] [place] [address] PCP - General Internal Medicine 01/25/14 [facility] 06/13/16 documented as of this encounter
--- OUTSIDE RECORDS SUMMARY | 2024-05-20 07:34 | XMS_ITS | Encounter Summary ---
Author Organization [facility] Address [address] [place] [address] Care Team Providers Care Combat Engineer Name Role Phone Agustin Mix Primary Care Provider + Encounter Details Date Type Department Care Team (Late st Contact Info) Description 05/11/2024 Telephone [facility] Transplant Department [address] [place] [address] Erika Bonds, KATALINA Social History Tobacco Use Types Packs/Day Years Used Date Smoking Tobacco: Former Cigarettes 2 30 1 05/26/1985 - 03/25/2016 Smokeless Tobacco: Never Alcohol Use Standard Drinks/Week Comments No 0 (1 standard drink = 0.6 oz pure alcohol) Quit alcohol in approximately March 2016 Sex and Gender Information Value Date Recorded Sex Assigned at Male 11/20/2022 12:22 PM EDT Legal Sex Male 5:53 PM EDT Gender Identity Male 11/20/2022 12:22 PM EDT Sexual Orientation Choose not to disclose 2022 12:22 PM EDT documented as of this encounter Miscellaneous Notes * Telephone Encounter - Erika Bonds RN - 05/11/2024 11:54 AM EST Received call from Edward's [facility]NA nurse questioning if he still needs to be on Kayexelate 2x weekly. She states he has been out of it for probably 1 month as he was under the impression the order was discontinued. Labs on 04/25 show K level within normal limits. Instructed her to have him repeat labs in early May to continue to monitor. documented in this encounter Plan of Treatment Upcoming Encounters Date Type Department Care Team (Late st Contact Info) Description 08/01/2024 11:30 AM EDT Follow-Up [facility] Liver Transplant Services [address] [place], [place] [phone] Dylan Phelps MD [address] [place], [place] [phone] documented as of this encounter Visit Diagnoses Not on filedocumented in this encounter Care Teams Combat Engineer Relationship Specialty Start Date End Date Agustin Mix [address] [place] [address] PCP - General Internal Medicine 04/15/17 documented as of this encounter
--- OUTSIDE RECORDS SUMMARY | 2024-05-20 07:34 | XMS_ITS | Encounter Summary ---
Author Organization [facility] Address [address] [place] [address] 7t [place] [address] Care Team Providers Care Inspector Repairer Name Role Phone Agustin Marrero MD Primary Care Provide r Reason for Visit * Reason Comments Med Refill Encounter Details Date Type Department Care Team (Late st Contact Info) Description 05/14/2022 Refill [facility] MEDICINE [address] [place], [place] [phone] Agustin Marrero MD [address] [place] [address] Chronic midline low back pain without sciatica Social History Tobacco Use Types Packs/Day Years Used Date Smoking Tobacco: Never Smokeless Tobacco: Never Alcohol Use Standard Drinks/Week Comments Never 0 (1 standard drink = 0.6 oz pur e alcohol) Depression Answer Date Recorded Patient Health Questionnaire-2 Score 0 04/22/2022 Sex and Gender Information Value Date Recorded Sex Assigned at Male 02/17/2022 10:14 AM EDT Legal Sex Male 10:14 AM EDT Gender Identity Male 02/17/2022 10:14 AM EDT Sexual Orientation Straight 02/17/2022 10 :14 AM EDT COVID-19 Exposure Response Date Recorded In the last 10 days, have yo u been in contact with someone who was confirmed or suspected to have Coronavirus/COVID-19? No / Unsure 05/15/2022 8:40 AM EST documented as of this encounter Plan of Treatment Upcoming Encounters Date Type Department Care Team (Late st Contact Info) Description 05/31/2024 9:45 AM EST Office Visit [facility] MEDICINE [address] [place] [address] 07/05/2024 10:00 AM EDT Office Visit [facility] MEDICINE [address] [place] [address] Agustin Marrero MD [address] [place] [address] 11/16/2024 10:00 AM EDT Office Visit [facility] ADULT DENTAL [address] [place], [place] [phone] Paco, Catherine [address] [place] [address] documented as of this encounter Visit Diagnoses Diagnosis Chronic midline low back pain without sciatica documented in this encounter Care Teams Inspector Repairer Relationship Specialty Start Date End Date Agustin Marrero MD [address] [place] [address] PCP - General Internal Medicine 01/25/14 [facility] 06/13/16 documented as of this encounter
--- OUTSIDE RECORDS SUMMARY | 2024-05-20 07:34 | XMS_ITS | Encounter Summary ---
Author Organization [employer] Address [address] [facility] [address] 7t [place] [address] Care Team Providers Care Funeral Driver Name Role Phone Agustin Marrero MD Primary Care Provide r Encounter Details Date Type Department Care Team (Late st Contact Info) Description 12/24/2023 Telephone [facility] MEDICINE [address] [place], [place] [phone] Agustin Marrero MD [address] [place], [place] [phone] Social History Tobacco Use Types Packs/Day Years Used Date Smoking Tobacco: Former Cigarettes Passive Smoke Exposure: Past Smokeless Tobacco: Never Alcohol Use Standard Drinks/Week Comments Never 0 (1 standard drink = 0.6 oz pur e alcohol) Depression Answer Date Recorded Patient Health Questionnaire-9 Score 0 12/03/2023 Patient Health Questionnaire-9 Score 0 12/03/2023 Last PHQ-9: Questionnaire Data Not on file 0 12/03/2023 Housing Stability Answer Date Recorded What is [...] Date Recorded Patient Health Questionnaire-2 Score 0 12/03/2023 Internet Access Answer Date Recorded Internet Access Q1 No 12/21/2023 Internet Access Q2 I do not want or need it 05/2023 Sex and Gender Information Value Date Recorded Sex Assigned at Male 02/17/2022 10:14 AM EDT Legal Sex Male 10:14 AM EDT Gender Identity Male 02/17/2022 10:14 AM EDT Sexual Orientation Straight 02/17/2022 10 :14 AM EDT documented as of this encounter Plan of Treatment Upcoming Encounters Date Type Department Care Team (Late st Contact Info) Description 05/31/2024 9:45 AM EST Office Visit [facility] MEDICINE [address] [place] [address] 07/05/2024 10:00 AM EDT Office Visit [facility] MEDICINE [address] [place] [address] Agustin Marrero MD [address] [place] [address] 11/16/2024 10:00 AM EDT Office Visit [facility] ADULT DENTAL [address] [place] [address] Paco Catherine [address] [place] [address] documented as of this encounter Visit Diagnoses Not on filedocumented in this encounter Additional Health Concerns Assessment Noted Time PHQ-9 Depression Total Score: 0 12/03/19 10:31 AM EDT documented as of this encounter Care Teams Funeral Driver Relationship Specialty Start Date End Date Agustin Marrero MD [address] [place] [address] PCP - General Internal Medicine 01/25/14 [facility] 06/13/16 documented as of this encounter
--- OUTSIDE RECORDS SUMMARY | 2024-05-20 07:34 | XMS_ITS | Encounter Summary ---
Author Organization [employer] Address [address] [place] [address] 7t [place] [address] Care Team Providers Care Wet End Helper Name Role Phone Agustin Marrero MD Primary Care Provide r Reason for Visit * Reason Onset Date Comments Medication Question 12/23/2023 Encounter Details Date Type Department Care Team ([facility] st Contact Info) Description 12/23/2023 Telephone [facility] MEDICINE [address] [place], [place] [phone] Agustin Marrero MD [address] [place] [address] Medication Question Social History Tobacco Use Types Packs/Day Years [...] AM EDT documented as of this encounter Miscellaneous Notes * Telephone Encounter - Ara Stanley - 12/24/2023 9:59 AM EDT Tc from Jessica with [facility] calling to report pt had informed her yesterday that he has not been able to find his pill bottle for his traMADol (Ultram) 50 MG tablet . States he informed hehad 2 friends over and believes one of them may have taken it . Any questions please contact Jessica at [phone]. * Telephone Encounter - Jaja Kebede - 12/23/2023 1:31 PM EDT Tc from pt requesting a refill for traMADol (Ultram) 50 MG tablet however pt stated is requesting brand new not generic. Please contact at [phone] Serbian documented in this encounter Plan of Treatment Upcoming Encounters Date Type Department Care Team (Late st Contact Info) Description 05/31/2024 9:45 AM EST Office Visit [facility] MEDICINE [address] [place] [address] 07/05/2024 10:00 AM EDT Office Visit [facility] MEDICINE [address] [place] [address] Agustin Marrero MD [address] [place] [address] 11/16/2024 10:00 AM EDT Office Visit [facility] ADULT DENTAL [address] [place], [place] [phone] Paco, Catherine [address] [place] [address] documented as of this encounter Visit Diagnoses Not on filedocumented in this encounter Additional Health Concerns Assessment Noted Time PHQ-9 Depression Total Score: 0 12/03/19 10:31 AM EDT documented as of this encounter Care Teams Wet End Helper Relationship Specialty Start Date End Date Agustin Marrero MD [address] [place] [address] PCP - General Internal Medicine 01/25/14 [facility] 06/13/16 documented as of this encounter
--- OUTSIDE RECORDS SUMMARY | 2024-05-20 07:34 | XMS_ITS | Encounter Summary ---
Author Organization [employer] Address [address] [place] [address] 7t [place] [address] Care Team Providers Care Urban Redevelopment Specialist Name Role Phone Agustin Marrero MD Primary Care Provide r Reason for Visit * Reason Comments Med Refill Encounter Details Date Type Department Care Team ([facility] st Contact Info) Description 12/24/[address] [facility] MEDICINE [address] [place], [place] [phone] Agustin Marrero MD [address] [place] [address] Chronic midline low back pain without sciatica [...] 05/31/2024 9:45 AM EST Office Visit [facility] MEDICINE [address] [place] [address] 07/05/2024 10:00 AM EDT Office Visit [facility] MEDICINE [address] [place] [address] Agustin Marrero MD [address] [place] [address] 11/16/2024 10:00 AM EDT Office Visit [facility] ADULT DENTAL [address] [place] [address] Catherine Antonio [address] [place] [address] documented as of this encounter Visit Diagnoses Diagnosis Chronic midline low back pain without sciatica documented in this encounter Additional Health Concerns Assessment Noted Time PHQ-9 Depression Total Score: 0 12/03/19 24 10:31 AM EDT documented as of this encounter Care Teams Urban Redevelopment Specialist Relationship Specialty Start Date End Date Agustin Marrero MD [address] [place] [address] PCP - General Internal Medicine 01/25/14 [facility] 06/13/16 documented as of this encounter
--- OUTSIDE RECORDS SUMMARY | 2024-05-20 07:34 | XMS_ITS | Encounter Summary ---
Author Organization [facility] Address [address] [place] [address] Care Team Providers Care Repair Mechanic Name Role Phone Agustin Mix Primary Care Provider + Reason for Visit * Reason Onset Date Comments Results 04/29/2024 Encounter Details Date Type Department Care Team (Late st Contact Info) Description 04/29/2024 Abstract [facility] Transplant Department [address] [place] [address] Dylan Phelps MD [address] [place] [address] Social History Tobacco Use Types Packs/Day Years [...] Info) Description 08/01/2024 11:30 AM EDT Follow-Up [facility] Liver Transplant Services [address] [place], [place] [id number] Dylan Phelps MD [address] [place] [address] documented as of this encounter Procedures * Due to [place] [employer] law, this organization might not be sharing negative HIV tests. Procedure Name Priority Date/Time Associated Diagnosis Comments TACROLIMUS LEVEL, OUTSIDE LAB Routine 04/25/2024 7:13 AM EST documented in this encounter Results * Due to [place] state law, this organization might not be sharing negative HIV tests. * Tacrolimus Level, Outside Lab (04/25/2024 7:13 AM EST) Tacrolimus, Highly Sensitive 5.5 [facility] Blood Structure of peripheral vein / Unknown 04/25/2024 7:13 AM EST us Dylan Phelps MD LAB BLOOD ORDERABLES Final Re sult [facility] [address] [place] [id number] documented in this encounter Visit Diagnoses Not on filedocumented in this encounter Care Teams Repair Mechanic Relationship Specialty Start Date End Date Agustin Mix [address] [place] [id number] PCP - General Internal Medicine 04/15/17 documented as of this encounter
--- OUTSIDE RECORDS SUMMARY | 2024-05-20 07:34 | XMS_ITS | Encounter Summary ---
Author Organization [facility] Address [address] [place] [address] [address] [place] [address] Care Team Providers Care Dance Therapist Name Role Phone Agustin Marrero MD Primary Care Provide r Encounter Details Date Type Department Care Team (Latest Contact Info) Description 05/23/2019 Abstract [facility] CONVERSIONS Dental, Provider, DDS Social History Tobacco Use Types Packs/Day Years Used Date Smoking Tobacco: Never Assessed Sex and Gender Information Value Date Recorded Sex Assigned at Male 02/17/2022 10:14 AM EDT Legal Sex Male 10:14 AM EDT Gender Identity Male 02/17/2022 10:14 AM EDT Sexual Orientation Straight 02/17/2022 10 :14 AM EDT documented as of this encounter Plan of Treatment Upcoming Encounters Date Type Department Care Team ( st Contact Info) Description 05/31/2024 9:45 AM EST Office Visit [facility] MEDICINE [address] [place] [id number] 07/05/2024 10:00 AM EDT Office Visit [facility] MEDICINE [address] [place] [address] Agustin Marrero MD [address] [place] [address] 11/16/2024 10:00 AM EDT Office Visit [facility] ADULT DENTAL [address] [place] [address] Catherine Antonio [address] [place] [address] documented as of this encounter Visit Diagnoses Not on filedocumented in this encounter Care Teams Dance Therapist Relationship Specialty Start Date End Date Agustin Marrero MD [address] [place] [address] PCP - General Internal Medicine 01/25/14 [facility] 06/13/16 documented as of this encounter
--- OUTSIDE RECORDS SUMMARY | 2024-05-20 07:34 | XMS_ITS | Clinical Summary ---
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 1 each 08/25/2019 10:32 AM EDT 0 Active VIAGRA 100 mg tablet TAKE 1 TABLET 1 HOUR BEFORE SEXUAL RELATIONS ONCE DAILY NEEDED. 0 Active Freestyle Lite test stripsIndication s:Type 2 diabetes mellitus with hyperglycemia, with long-term current use of insulin (HCC) Test 3 times a day. 100 strip 1 12/13/2019 9:38 PM EDT 0 Active blood glucose diagnostic lancet 28 gaugeIndications :Type 2 diabetes mellitus with hyperglycemia, with long-term current use of insulin (HCC) Use to test 3 times daily. 100 each 1 0 Active pen needle, diabetic 32 gauge x 1/4 needle Use 1 needle up to four times per day 100 each 1 11/21/2019 10:35 AM EDT 0 Active Lantus Solostar U-100 Insulin 100 unit/mL (3 mL) insulin pen Inject 15 Units under the skin nightly. 15 mL 1 0 Active traMADoL (ULTRAM) 50 mg tablet every 12 hours as needed for pain. 0 Active omeprazole (PriLOSEC) 20 mg capsule Take 1 capsule (20 mg total) by mouth daily. 30 capsule 1 1 Active insulin aspart (NovoLOG FLEXPEN) 100 unit/mL insulin pen Inject 10 Units under the skin 3 times a day with meals. With medium dose scale - mdd= 60 units 30 mL 5 1 Active zolpidem (AMBIEN) 10 mg tablet Take 10 mg by mouth nightly as needed for sleep. 2 Active losartan (COZAAR) 25 mg tablet Take 25 mg by mouth once a day. 2 Active gabapentin (NEURONTIN) 300 mg capsule 300 mg 3 times a day. For back 2 Active hypromellose (NATURES TEARS) drops Apply 1-2 gtts in eyes as needed daily 2 Active FreeStyle Arvin 2 [place] misc 2 Active BD Insulin Syringe Ultra-Fine 0.3 mL 31 gauge x 5/16 syringe 2 Active cholecalciferol (VITAMIN D3) 1,000 unit tablet Take 1 tablet (1,000 Units total) by mouth once a day. 90 tablet 1 3 Active FreeStyle Arvin 2 Sensor kit USE TO MONITOR BLOOD GLUCOSE LEVELS. CHANGE EVERY 14 DAYS DX E11.9 3 Active sodium polystyrene (KAYEXALATE) powderIndication s:High potassium 30 grams 3 times a week 454 g 11 3 Active Artificial Tears,pg-hypm-gl yc, 1-0.2-0.2 % drops SMARTSIG:In Eye(s) 3 Active SUMAtriptan (IMITREX) 25 mg tablet Take 25 mg by mouth. 4 Active multivitamin tablet TOME OLINDA TABLETA TODOS LOS D 4 Active lidocaine (LIDODERM) 5% patch APLIQUE UN PARCHE EN LA MA SALOMÓN REMOVE AND DISARD PATCH WITHIN 12 HOURS OR SEG N LO INDICADO Active tacrolimus (PROGRAF) 1 mg capsuleIndicatio ns:History of liver transplant (CMS/HCC) (HCC) Take 1 capsule (1 mg total) by mouth every 12 hours. 270 capsule 3 4 Active magnesium oxide (MAG-OX) 400 mg (241.3 mg mag) tabletIndication s:Low magnesium level TAKE 2 TABLETS (800 MG TOTAL) BY MOUTH 2 TIMES A DAY. 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 Patient reports 4 days of right upper quadrant pain and hematuria. He also reports 3 days of dysuria. He does not report fever, chills, headache, chest pain, shortness of breath, back pain. He reports taking all medications as prescribed. In the ED he was afebrile (98.2), HR 86, and mildly hypotensive (84/69). Labs notable for Cr 1.26 (baseline 1.2-1.4), WBC 5.2, Hgb 12.3 (baseline 11-13), ALP 247, ALT 180, AST 36, Tbili 4.3, lipase 13. Hepatobiliary labs from 10/17 all within normal limits (ALP 87, AST 30, ALT 25, Tbili 0.8). Differential diagnosis of RUQ pain with mixed cholestatic and hepatic pattern is concerning for biliary stricture, chronic rejection, CMV hepatitis, and drug induced liver injury. CT 3 phase from 11/13, revealed no focal lesions identified within transplanted liver, CBD mildly dilated (12mm) stable from prior -monitor patient for 24 hours, if stable and improving can discharge with ERCP as an outpatient next Thursday (11/19) -if patient has worsening hepatic enzymes, consider ERCP tomorrow -serum CMV PCR -follow up PEth -follow up blood cultures History of liver transplant (CMS/HCC) 11/13/2022 Assessment & Plan (11/13/2022 3:56 PM EDT): Patient has a history of decompensated alcohol use associated cirrhosis status post donor liver transplant (08/09/2019, CMV (D+/R-), EBV (D+/R+)). 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 Hospitalized in April 2020 for elevated AST/ALT presumed related to rejection, received methylprednisolone, CMV PCR and IgG were slightly elevated treated for 2-3 weeks. Biliary stent removal 09/21/20, Hospitalized from 01/11-01/13/21 for elevated liver enzymes possibly related to increased acetaminophen consumption, enzymes resolved without intervention. Home med: tacrolimus 2mg AM and 1mg PM -continue home tacrolimus 2mg AM and 1mg PM -AM tacrolimus level 12hrs following evening dose -MELD labs daily Essential (primary) hypertension 11/13/2022 Assessment & Plan (11/13/2022 5:12 PM EDT): Patient has a history of HTN. BP on admission was 88/69, repeat 107/73. Cr 1.26 (baseline 1.2-1.4). We will continue losartan due to no evidence of MASSIMO. Home med: losartan 25mg daily -continue home losartan 25mg daily Chronic low back pain 11/13/2022 Assessment & Plan (11/13/2022 5:27 PM EDT): Patient has had chronic mid low back pain with multilevel degenerative disc disease. Home meds: methocarbamol 750mg q8h -continue home methocarbamol 750mg q8h PRN Insomnia 11/13/2022 Assessment & Plan (11/13/2022 5:27 PM EDT): Home med: ambien 10mg at bedtime and melatonin 3mg at bedtime -continue home melatonin 3mg at bedtime -holding home ambien 10mg at bedtime Chronic abdominal pain 01/12/2021 Assessment & Plan (11/13/2022 5:28 PM EDT): Patient has had chronic abdominal pain after liver transplant in July 2019 and incisional hernia repair with mesh in March 2020. He was seen by automatic paint sprayer operator at [facility] who discussed that he might need someone that is willing to write for chronic narcotics for pain and that incisional injections will not provide any meaningful improvement. Home meds: Gabapentin 100mg q8h, tramadol 50mg BID -continue home Gabapentin 100mg q8h -continue home tramadol 50mg PRN Assessment & Plan (01/12/2021 12:47 AM EDT): #Chronic pain Home meds: Gabapentin 100 mg 3 times daily, tramadol 50 mg twice daily, Robaxin 750 mg 3 times a day prn Patient with chronic right lower leg pain after surgery. As patient's renal function is at his baseline, will continue home meds. -Continue home meds Cytomegalovirus (CMV) viremia (CMS/HCC) 06/12/19 COVID-19 05/09/2020 Immunosuppression 08/11/2019 Assessment & Plan (11/13/2022 3:49 PM EDT): Patient has a history of liver transplant in July 2019 and is currently on tacrolimus 2mg in the AM and 1mg in the PM for immunosuppression. -See assessment and plan under liver transplant Assessment & Plan (01/12/2021 5:47 PM EDT): Home meds: tacrolimus 3 mg BID, ?prednisone 5 mg daily The patient states that he is taking tacrolimus 3 mg twice daily. Per chart review, his tacrolimus dosing was decreased to 3 mg BID on 11/28/20. Most recent tacrolimus level was 6.0 on 12/27/2020. The patient also does report taking prednisone [address] Phelps's note, the patient should not be on steroids. However, the most recent dispense report has 01/09/2021 listed for prednisone. -Continue home tacrolimus 3 mg BID -Readdress prednisone as noted above -Daily Tacrolimus level Assessment & Plan (08/15/2019 2:22 PM EDT): S/p Solu-medrol induction Currently on Steroid taper as per protocol and Tacrolimus which is being managed by primary team Please obtain daily Tacrolimus trough levels to monitor for potential CNI toxicity - level today 7.1 GERD (gastroesophageal reflux disease) 9 Assessment & Plan (11/13/2022 2:49 PM EDT): Home meds: omeprazole 20mg daily -started pantoprazole 20mg daily Assessment & Plan (01/12/2021 12:35 AM EDT): #GERD Home meds: Prilosec 20 mg daily -Continue home meds (Protonix 20 mg daily) Assessment & Plan (07/12/2019 5:37 PM EDT): No EGD on record here however managed on omeprazole 20 mg daily as an outpatient. -Substitute pantoprazole 40 mg daily Assessment & Plan (02/20/2019 9:00 AM EST): Ongoing chronic issue. -continue with home protonix 20mg Assessment & Plan (02/06/2019 2:04 PM EDT): Ongoing chronic issue. -continue with home protonix 20mg Assessment & Plan (02/05/2019 5:50 AM EDT): Cont w/ Protonix 20 mg daily Assessment & Plan (01/17/2019 6:21 PM EDT): Patient with history of GERD on prilosec at home - nexium 20 mg daily Type 2 diabetes mellitus, wi th long-term current use of insulin 12/19/2018 Assessment & Plan (11/13/2022 3:58 PM EDT): Blood glucose on admission was 121. Most recent A1c from 05/17/21 was 7.7. Home meds: metformin 500mg daily, Lantus 15 units nightly, NovoLog 10 units with meals -Started Glargine 7 units nightly -Started Lispro 5 units with meals -Started MDSS -hold home metformin Assessment & Plan (01/12/2021 5:40 PM EDT): Home meds: Metformin 1000 mg BID, Lantus 15 units nightly, NovoLog 10 units with meals, MDSS Patient noted that his blood glucose was elevated to the 400s on the day of admission. During the patient's last admission in April 2020, diabetes was following for steroid-induced hyperglycemia. -Lantus increased from 10 units to 15 unites nightly -MDSS -Hold metformin -Consider diabetes consult if patient is started on high-dose steroids Assessment & Plan (07/13/2019 1:11 PM EDT): Patient with known type 2 diabetes with last hemoglobin A1c in our records from 2017 which was 4.7%. Current outpatient regimen includes Lantus 12 units nightly, nutritional insulin 4 units with meals, and a low-dose sliding scale with Humalog. -Lantus 10 units nightly -Humalog 3 units with meals -Low-dose sliding scale -Carb consistent diet Assessment & Plan (02/20/2019 8:59 AM EST): Patient with a history of DMT2. Patient was receiving 20 units nightly w/ ISS. -Cont Lantus 20 u nightly -MDISS Assessment & Plan (02/06/2019 12:25 PM EDT): Patient with a history of DMT2. Patient was receiving 20 units nightly w/ ISS. -Cont Lantus 20 u nightly -MDISS Assessment & Plan (02/05/2019 5:51 AM EDT): Patient with a history of DMT2. Patient was receiving 20 units nightly w/ ISS. -Cont Lantus 20 u nightly -MDISS Assessment & Plan (02/05/2019 5:46 AM EDT): Patient with a history of DMT2. Patient was receiving 20 units nightly w/ ISS. -Cont Lantus 20 u nightly -MDISS Assessment & Plan (01/19/2019 8:54 AM EDT): Patient with a history of DMT2 being managed on Lantus 16u nightly and 3 units of unknown insulin in the morning. -Lantus dose increased to 10 U nightly when eating (switched to 6U at night when NPO) -MD-ISS Assessment & Plan (12/20/2018 4:04 PM EDT): Home 14u lantus daily, will be NPO for MRCP so 7u lantus and low dose ss Assessment & Plan (12/23/2018 2:19 PM EDT): Home 14u lantus daily, on admission 7u lantus and low dose sliding scale. Following MRCP patient was started on regular diet with 7 units Lantus and low-dose sliding scale insulin. In the setting of elevated blood sugars during stay Lantus increased to 13 units with low-dose sliding scale insulin. - 13 units Lantus daily with low-dose sliding scale insulin S/P liver transplant 08/18/2017 Assessment & Plan (01/12/2021 12:30 AM EDT): Patient is s/p donor liver transplant (08/09/2019, CMV (D+/R-), EBV (D+/R+)). 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 Per chart review, the patient's pleural effusions did not recur and he remains off diuretics. Immunosuppression addressed in its own section. Patient is not on prophylactic medication at this time. 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 Levels typically range in low 5s, on Veltassa 8.4g and Kayexalate 30g at home. K+ on 01/12 in the AM was 5.6, so patient restarted on Veltassa and given one dose of Kayexalate. Follow up CMP showed K+ at 5.9, so given dose on Insulin+Dextrose. --Monitor K+ levels --Continue Veltassa Elevated liver enzymes 01/11/202101/13 Assessment & Plan (01/12/2021 5:52 PM EDT): The patient presented as a direct admit from Dr. Phelps for elevated AST (447), ALT (274), and alk phos (157) on most recent labs 01/10/21. Previous labs 12/27/20: AST 25, ALT 34, alk phos 99, CMV PCR < 2.30, tacrolimus 6.0. The differential includes acute rejection, CMV infection, and alcoholic hepatitis. Of note, the patient was admitted in April 2020 for elevated LFTs as well. At that time, he was presumed to have acute rejection and was also treated for CMV per transplant ID. For this admission, etiology is unclear. The patient's tacrolimus dosing was decreased in November 2020 to 3 mg twice daily, which may be suspicion for acute rejection. CMV infection is less likely given recent labs. However, patient has had a cough that has since resolved. Alcoholic hepatitis mainly suggested by the AST:ALT ratio, which is approximately 2:1. However, the alcohol amount in the patient's cough medicine is unlikely to be a significant amount, and the patient adamantly denies drinking alcohol knowingly. --LFTs are appropriately decreasing; 01/12 ALT back to wnl and AST slightly elevated at 112. At this time there is no indication for liver biopsy, since LFT pattern not bottling equipment sales representative of rejection. Additionally, Liver ultrasound showed Patent hepatic transplant vasculature. -continue home prednisone 5mg daily, but readdress need in the morning. -Trend LFTs/INR -CMV PCR pending Elevated LFTs 05/02/2020 05/09/2020 Incisional hernia following transplant 03/20/2020 05/09/2020 Hyperphosphatemia 08/11/2019 05/09/2020 Assessment & Plan (08/15/2019 2:22 PM EDT): Secondary to impaired phosphorus excretion in setting of MASSIMO. MASSIMO has since resolved Discontinue PhosLo Chronic hepatic failure 08/09/201908/18 Bacteremia 02/05/2019 02/23/2019 Assessment & Plan (02/21/2019 6:35 PM EST): Recurrent hx of recurrent ESBL bacteremia. Initially presented to [facility] for fever, LE swelling and pain. Unclear source. BCX grew esbl E.Coli 1 out of 2 sets from [facility], susceptible to Ertapenem. Initially he was on zosyn, and was switched to ertapenem. MRCP on 12/20 and Abdominal US on 01/16 showed no biliary dilatation. CT AP w/ contrast showing distal ileal and right colonic wall thickening, ?colitis, moderate simple ascites, large left pleural effusion with lower lobe collapse, cirrhosis, stable 3 mm pancreatic cysts. TTE showing technically limited study due to poor acoustic windows, normal left ventricular size, grossly normal LV systolic function, LVEF is estimated at 55%, no significant valvular disease identified, however, the valves are not well seen. - ertapenem 01/31-02/05; meropenem 02/06- 02/22 - UA 02/11 negative; PSA non-elevated - transplant ID following, appreciate recommendations - repeat BCX 02/06 NGTD - f/u CBC and CMP Assessment & Plan (02/18/2019 9:17 AM EDT): Recurrent hx of recurrent ESBL bacteremia. Initially presented to [facility] for fever, LE swelling and pain. Unclear source. BCX grew esbl E.Coli 1 out of 2 sets from [facility], susceptible to Ertapenem. Initially he was on zosyn, and was switched to ertapenem. MRCP on 12/20 and Abdominal US on 01/16 showed no biliary dilatation. CT AP w/ contrast showing distal ileal and right colonic wall thickening, ?colitis, moderate simple ascites, large left pleural effusion with lower lobe collapse, cirrhosis, stable 3 mm pancreatic cysts. TTE showing technically limited study due to poor acoustic windows, normal left ventricular size, grossly normal LV systolic function, LVEF is estimated at 55%, no significant valvular disease identified, however, the valves are not well seen. - ertapenem 01/31-02/05; meropenem 02/06- - UA 02/11 negative; PSA non-elevated - transplant ID following, appreciate recommendations - repeat BCX 02/06 NGTD - f/u CBC and CMP - f/u plan from ID for length of treatment Assessment & Plan (02/05/2019 6:23 AM EDT): Patient has a recurrent history of recurrent ESBL bacteremia. Patient initially presented to [facility] for fever and LE swelling and pain. Unclear source. BCX grew esbl E.Coli 1 out of 2 sets from [facility], susceptible to Ertapenem. Initially he was on zosyn, and was switched to ertapenem. On previous admission, MRCP on 12/20 or Abdominal US on 01/16 showed no biliary dilatation. - continue ertapenem (10 day course to be completed on 02/09 per [facility] note) - repeat BCX - CT AP w/ contrast - consult transplant ID in the AM - f/u CBC and CMP Assessment & Plan (02/05/2019 5:40 AM EDT): Patient has a recurrent history of recurrent ESBL bacteremia. Patient initially presented to [facility] for fever and LE swelling and pain. Unclear source. BCX grew esbl E.Coli 1 out of 2 sets from [facility], susceptible to Ertapenem. Initially he was on zosyn, and was switched to ertapenem. On previous admission, MRCP on 12/20 or Abdominal US on 01/16 showed no biliary dilatation. - continue ertapenem (10 day course to be completed on 02/09 per [facility] note) - repeat BCX - CT AP w/ contrast Abscess of leg, right 02/05/20192018 Assessment & Plan (02/22/2019 3:37 PM EST): Patient has worsened leg edema R>L w/ rt side 4+ pitting edema. At [facility], US was negative for DVT. CT rt LE (02/06): Large, organized collection/abscess with enhancing wall and internal septations involving the soleus muscle and lateral head of the gastrocnemius muscle extending from just distal to the popliteal fossa distally to include the Achilles tendon, mild calcified atherosclerosis of the popliteal artery. S/p two drains placed by IR on 02/06 and 02/10. MRI of rt lower extremity (02/10): No evidence of osteomyelitis, large posterior leg compartment abscess with interval decrease in size following drainage, lower extremity cellulitis and myositis. Ankle/brachial index (02/10) indicating no evidence of arterial insufficiency at rest b/l. CT rt leg showing large posterior leg compartment abscess with superimposed drainage catheter, decreased in size compared to 02/06/2019, and not significantly changed in size compared to MRI of 02/09/2019. CT rt leg showing large posterior leg compartment abscess with superimposed drainage catheter, decreased in size compared to 02/06/2019, and not significantly changed in size compared to MRI of 02/09/2019. S/p IR drainage x2 (02/06, 02/10); s/p one accidentally pulled out, draining minimally. Re-evaluation of IR drainage on 02/16, no drain able to be placed. S/p surgical debridement 02/17. Cultures of abscess from drain growing ESBL. - PT consult - recommended inpatient rehab - dressings daily as follows per surgical recs: Both wounds are packed with Krylex, each wound takes about 1/3 to 1/2 of a Krylex, dry dressing is ok. Then put krylex or fluffs to over both wounds and wrap leg with Krylex and MARY wrap starting at the foot to right below the knee to prevent/reduce leg edema. Assessment & Plan (02/19/2019 6:47 PM EDT): Patient has worsened leg edema R>L w/ rt side 4+ pitting edema. At [facility], US was negative for DVT. CT rt LE (02/06): Large, organized collection/abscess with enhancing wall and internal septations involving the soleus muscle and lateral head of the gastrocnemius muscle extending from just distal to the popliteal fossa distally to include the Achilles tendon, mild calcified atherosclerosis of the popliteal artery. S/p two drains placed by IR on 02/06 and 02/10. MRI of rt lower extremity (02/10): No evidence of osteomyelitis, large posterior leg compartment abscess with interval decrease in size following drainage, lower extremity cellulitis and myositis. Ankle/brachial index (02/10) indicating no evidence of arterial insufficiency at rest b/l. CT rt leg showing large posterior leg compartment abscess with superimposed drainage catheter, decreased in size compared to 02/06/2019, and not significantly changed in size compared to MRI of 02/09/2019. CT rt leg showing large posterior leg compartment abscess with superimposed drainage catheter, decreased in size compared to 02/06/2019, and not significantly changed in size compared to MRI of 02/09/2019. S/p surgical debridement 02/17. - PT consult pending - s/p IR drainage x2 (02/06, 02/10); s/p one accidentally pulled out, draining minimally. Re-evaluation of IR drainage on 02/16, no drain able to be placed - cultures of abscess from drain w/ ESBL - f/u nursing about flushing drain patency daily - CT imaging of RLE (02/15) to assess fluid left in abscess - surgery will do dressing change on 02/18: ok for discharge from surgical perspective - f/u plan from surgery - f/u BMP, CBC at noon --> pt labs at morning are not consistent with his usual trend, likely lab error Assessment & Plan (02/05/2019 5:55 AM EDT): Patient has worsened leg edema R>L. Right side has 4+ pitting edema. At [facility], US was obtained and ruled out DVT. Unclear etiology. Could be d/t fluid accumulation from cirrhosis. Exam also reveals JVD. - consider re-starting diuretics - f/u w/ CT AP - TTE to r/o cardiac involvement Sepsis 01/12/2019 01/20/2019 Assessment & Plan (01/19/2019 8:57 AM EDT): Patient was admitted at OSH for severe sepsis with an unclear source after presenting with fevers and shakiness. Records from OSH are conflicting about whether there was gram-negative bacteremia. There were not any official microbiology reports in records sent over. Patient was given Ceftin. No source of infection was found. OSH GI recommended transfer to [facility] as there was a suspicion for acute obstruction or malfunction/biliary source of infection given recurrent E. coli bacteremia with no other source. Patient currently exhibits no signs or symptoms of infection. Workup recommended to look for source of infection. - Transplant ID following: recs meropenem 1g q8h for h/o E.coli bacteremia and esbl (start 01/12, end 01/23). According to sensitivities, patient can be discharged on ertapenem infusions for the remaining days to cover a full 14 day antibiotic course - needs f/u w/ colonoscopy outpatient w/ biopsy for CT findings (wall thickening of the small and large bowel) - BCX- no growth after 5 days Bacteremia due to Gram-negative bacteria 12/19/2018 08/11/2019 Assessment & Plan (12/21/2018 5:52 PM EDT): Cultures from 2 days ago, we do not have speciation. SBP considered but he is stable, afebrile, no leukocytosis, no longer septic, and there does not appear to be significant amount of ascites. Source is most likely biliary, so will pursue the MRCP. Other possibility is the effusion, but hold off on thoracentesis for now. UA without bacteruria and CT AP not concerning for pathology. -BCx grew GNR?? -transplant ID consulted -[facility] was called for speciation, it will be in tomorrow per Microbiology lab -Continue ceftriaxone 2g daily, per ID -f/u U/S [facility] for LLE -LE duplex came back negative for DVT, showed LAP in the groin Assessment & Plan (12/23/2018 2:28 PM EDT): Cultures from 2 days ago, we do not have speciation. SBP considered but he is stable, afebrile, no leukocytosis, no longer septic, and there does not appear to be significant amount of ascites. Source is most likely biliary, so will pursue the MRCP. Other possibility is the effusion, but hold off on thoracentesis for now. UA without bacteruria and CT AP not concerning for pathology. -Transplant ID is following -[facility] will fax culture data, commented that both cultures grew E. coli that were moderately resistant -continue ceftriaxone 2g daily -s/p 1 dose doxycycline per chart Hyponatremia 12/19/2018 05/09/2020 Assessment & Plan (08/15/2019 2:21 PM EDT): Occurring s/p OLT with urine studies consistent with a cirrhotic physiology Continue with 1L Fluid restriction at this time. Assessment & Plan (02/20/2019 8:59 AM EST): Hyponatremic to 132 at [facility]. Na 128, constant through hospitalization. - daily BMP Assessment & Plan (02/09/2019 11:02 AM EDT): Hyponatremic to 132 at [facility]. Na 128, constant through hospitalization. - daily BMP Assessment & Plan (02/05/2019 5:51 AM EDT): Hyponatremic to 132 at [facility]. - repeat BMP in am and redose diuretics Assessment & Plan (02/05/2019 5:47 AM EDT): Hyponatremic to 132 at [facility]. - repeat BMP in am and redose diuretics Assessment & Plan (12/21/2018 5:56 PM EDT): Asymptomatic. He is hypervolemic on exam. Likely due to cirrhosis. May have worsened with IVF. For now holding fluids and diuresis. - Monitor daily Na, improving - Consider restarting Diuretics Assessment & Plan (12/22/2018 1:38 PM EDT): Chronic problem, asymptomatic. Likely due to cirrhosis. May have worsened with IVF. For now holding fluids and diuresis. Will continue to monitor daily CMP. - Daily CMP Gram-negative bacteremia 12/19/2018 Assessment & Plan (01/19/2019 8:59 AM EDT): Patient was admitted at OSH for severe sepsis with an unclear sources. Records from OSH are conflicting about whether there was gram-negative bacteremia, neither is there an official microbiology reports. - continuing treatment with meropenem 1g q8H for total of 14 days (start 01/12, end 01/23). At time of discharge, we will switch to ertapenem and patient will be required to go to an infusion center for the remaining days of treatment to complete the 14 day course. Left ankle pain 12/19/2018 08/11/2019 Assessment & Plan (12/21/2018 6:06 PM EDT): Due to hardware the concern was for septic joint but he has equal ROM in both ankles, equal swelling, no erythema, not warm to touch, and minimal tenderness to palpation. There is a surgical scar which is healed, no signs of infection. X ray did not show acute fracture, and hardware intact. More likley that it is painful due to him tripping and falling about 1wk ago. He is able to bear weight. ?? -Tramadol 50mg daily PRN per home med -No NSAIDs -elevation in bed -activty as tolerated -f/u LE U/S Assessment & Plan (12/23/2018 2:26 PM EDT): Due to hardware the concern was for septic joint but he has equal ROM in both ankles, equal swelling, no erythema, not warm to touch, and minimal tenderness to palpation. There is a surgical scar which is healed, no signs of infection. X ray did not show acute fracture, and hardware intact. More likley that it is painful due to him tripping and falling about 1wk ago. He is able to bear weight. -tramadol 50mg daily PRN per home med -may add tylenol <2g daily prn -No NSAIDs -elevation in bed -Activity as tolerated, f/u PT recs -F/u US left ankle and SPECT CT (concern for osteomyelitis) Hepatic encephalopathy 12/17/201708/10 Pleural effusion 07/28/2017 05/09/2020 Assessment & Plan (07/13/2019 1:13 PM EDT): Patient with known left side pleural effusion that dates back in our imaging at least December 2018. Patient reporting that he underwent a therapeutic thoracentesis on 07/07/2019 after which he had temporary improvement in his dyspnea though this soon returned. Presented again on day of admission to [facility] with worsening shortness of breath where a CT chest PE protocol was performed which showed no evidence of intraluminal filling defect though did make note of large left- sided pleural effusion with associated complete left lower lobe collapse as well as partial left upper lobe collapse. Due to recurrent pleural effusion and likely need for repeat thoracentesis patient was transferred [facility]. On arrival patient without any increased work of breathing and saturating well on room air. Exam reveals absent breath sounds in the left middle and lower lung perez with increased dullness to percussion. 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 -We will have CT scan from [facility] uploaded into our system for review -CXR on 07/11 showed large left pleural effusion -IP consulted for thoracentesis. Will send fluid studies. -Requested [facility] records of pleural fluid studies from 07/06 -Supplemental oxygen as needed to maintain sats greater than 92% Assessment & Plan (01/19/2019 10:11 AM EDT): Patient is s/p thoracentesis after large left lung effusion unchanged from previous admission seen on imaging. Site of thoracentesis covered with bandage that is dry and intact. Chart review of his prior hospitalization at [facility] revealed that he had thoracentesis on January 11, 2019, during which 1.6 L was taken out, and fluid study revealed white blood cell count of 2650 and segs of 35%, suggesting exudative fluid, although it seems that no paracentesis was done at [facility]. - decreased breath sounds in middle and lower left lung - asymptomatic, no shortness of breath, should improve after TIPS revision and paracentesis Assessment & Plan (12/21/2018 6:08 PM EDT): Unilateral pleural effusion in cirrhotic patient. Differential includes hepatic hydrothorax, cirrhosis (low protein), malignancy, and infectious. Malignancy least likely because of lack of systemic symptoms, no changes on imaging, has been screened for HCC, and other causes are more likely. He is s/p TIPS for hep hydrothorax in 2018, so if shunt is not patent it is possible it may have reaccumulated but this would not explain the bacteremia. Infectious is possible and this may require a thoracentesis, especially if he becomes symtpmatic in terms of resp distress. He had recently restarted lasix after stopping for a couple of weeks, so it may have been that his dose was just not high enough and he is retaining again or maybe exacerbated by some underlying infection. ?? -CXR showed large pleural effusion -hold lasix and spironolactone in the setting of sepsis, consider resuming them. -hold more IVF Assessment & Plan (12/22/2018 1:37 PM EDT): Unilateral pleural effusion in cirrhotic patient. Differential includes hepatic hydrothorax, cirrhosis (low protein), malignancy, and infectious. Malignancy least likely because of lack of systemic symptoms, no changes on imaging, has been screened for HCC, and other causes are more likely. He is s/p TIPS for hep hydrothorax in 2018, so if shunt is not patent it is possible it may have reaccumulated but this would not explain the bacteremia. Infectious is possible and this may require a thoracentesis, especially if he becomes symtpmatic in terms of resp distress. He had recently restarted lasix after stopping for a couple of weeks, so it may have been that his dose was just not high enough and he is retaining again or maybe exacerbated by some underlying infection. -hold off on thoracentesis but consider if clinically worsening -Patient restarted on Lasix 20 mg daily and Aldactone 50 mg daily Pleural effusion associated with hepatic disorder 07/24/2017 05/09/2020 Assessment & Plan (07/28/2017 10:23 AM EDT): Large, left sided hydrothorax, s/p left thoracentesis at OSH with resulting transudative fluid, rapidly reaccumulating, transferred to [facility] for TIPS intervention. Resumed diuretics today at home doses, as below. Respiratory status is stable requiring 2L intermittently. Plan - spironolactone 200mg daily, furosemide 80mg po daily - TIPS scheduled for 07/28 Assessment & Plan (07/24/2017 2:10 AM EDT): Patient with Cirrhosis presenting tp OSH with SOB and large left sided pleural effusion. He is s/p left thoracentesis with resulting transudative fluid. His fluid has re-accumulated s/p thora. His pleurel effusion is likely 2/2 hepatic hydrothorax. He is on high dose diuretics at this time, and he may benefit from TIPs procedure to decrease portal hypertension and decrease ascites and pleural fluid. Plan -holding diuretics for now -evaluate for TIPS in the AM. Cirrhosis 07/24/2017 05/09/2020 Assessment & Plan (07/13/2019 1:12 PM EDT): Patient with known alcoholic cirrhosis who follows with Dr. Phelps as an outpatient and currently listed for transplant with decompensations in the form of ascites, hepatic encephalopathy, and spontaneous bacterial peritonitis who underwent TIPS procedure in 2017. Most recent hospitalization at [facility] was in January 2019 when he was admitted with ESBL bacteremia. Current outpatient regimen includes spironolactone 100 mg daily, furosemide 40 mg daily, rifaximin 550 mg twice daily, ciprofloxacin 500 mg daily, and lactulose titrated for 3 bowel movements per day. MELD-Na score: 22 at 07/13/2019 7:20 AM MELD score: 18 at 07/13/2019 7:20 AM Calculated from: Serum Creatinine: 0.83 mg/dL (Rounded to 1 mg/dL) at 07/13/2019 7:20 AM Serum Sodium: 132 mmol/L at 07/13/2019 7:20 AM Total Bilirubin: 5.2 mg/dL at 07/13/2019 7:20 AM INR(ratio): 1.6 at 07/13/2019 6:52 AM Age: 54 years -Furosemide 80 mg daily starting tomorrow -Spironolactone 200 mg daily starting tomorrow -Rifaximin 550 mg twice daily -Lactulose titrated for 3-4 loose bowel movements per day -Strict I's and O's -Daily weights -Daily MELD labs -2 g sodium restriction -Abdominal ultrasound with Doppler to assess TIPS patency pending Assessment & Plan (01/19/2019 10:10 AM EDT): 54 year old male with alcoholic liver cirrhosis on transplant list, with history of decompensations including ascites, hepatic encephalopathy, and SBP, status post TIPS in 2018. Currently managed at home with Rifaximin 550mg twice per day, unknown dose of lactulose, furosemide 20mg daily and spironolactone 50mg daily. Patient denies taking rifaximin and Aldactone was discontinued at OSH due to hyperkalemia. Of note, reached out to [facility] to double check if paracentesis was done, and whether there is a fluid study of the sample, however it appears that no paracentesis was done at [facility]. - Start Lactulose increased to 20 g q4H - Titrate to 3-4 BMs - Start Rifaximin 550 mg BID - Continue furosemide 20mg daily - Continue Aldactone 50 mg daily - Daily MELD labs - RUQ U/S with Doppler showed patent TIPS shunt with increased velocity indicating early possible shunt dysfunction; moderate ascites seen - Plan for IR TIPS revision with paracentesis today, follow up on cell count, differential, protein, albumin, gram stain and culture - Will start SBP prophylaxis on discharge MELD-Na score: 19 at 01/19/2019 6:52 AM MELD score: 18 at 01/19/2019 6:52 AM Calculated from: Serum Creatinine: 0.56 mg/dL (Rounded to 1 mg/dL) at 01/19/2019 6:52 AM Serum Sodium: 135 mmol/L at 01/19/2019 6:52 AM Total Bilirubin: 6.0 mg/dL at 01/19/2019 6:52 AM INR(ratio): 1.5 at 01/19/2019 6:52 AM Age: 54 years Assessment & Plan (12/21/2018 5:54 PM EDT): Decompensations include??ascites, hepatic encephalopathy, SBP, extremity swelling, and pleural effusion. ?? - Daily MELD labs - Continue with home lactulose 3 times daily to prevent hepatic encephalopathy - Hold spironolactone - Continue rifaximin 550mg q12h - MRCP showed Liver cirrhosis with portal hypertension, and two hepatic lesions. Assessment & Plan (12/22/2018 1:39 PM EDT): Decompensations include ascites, hepatic encephalopathy, SBP, extremity swelling, and pleural effusion. ?? Plan -Daily MELD labs -Continue with home lactulose 3 times daily to prevent hepatic encephalopathy -Restarted on Lasix 20 mg daily and Aldactone 50 mg daily -Continue rifaximin 550mg q12h -MRCP completed, showed 1.3 cm new lesion but radiology recommends follow-up MRI in 3 months Assessment & Plan (07/28/2017 10:24 AM EDT): Decompensations include ascites, hepatic encephalopathy, SBP, extremity swelling, and pleural effusion. Plan -Continue with home ciprofloxacin 500 mg daily for SBP prophylaxis -Daily MELD labs -Continue with home lactulose 3 times daily to prevent hepatic encephalopathy -Diuretics as above -TIPS for today as above MELD-Na score: 16 at 07/28/2017 7:51 AM MELD score: 13 at 07/28/2017 7:51 AM Calculated from: Serum Creatinine: 1.01 mg/dL at 07/28/2017 7:51 AM Serum Sodium: 134 mmol/L at 07/28/2017 7:51 AM Total Bilirubin: 2.3 mg/dL at 07/28/2017 7:51 AM INR(ratio): 1.4 at 07/28/2017 7:51 AM Age: 52 years Assessment & Plan (07/24/2017 2:04 AM EDT): Patient with history of alcoholic cirrhosis currently on transplant list complicated by ascites, hepatic encephalopathy, SBP, extremity swelling, and pleural effusion. Presented to outside hospital with shortness of breath and found to have left- sided whiteout on chest x-ray. Also with ascites on CT scan of the abdomen. Patient had therapeutic paracentesis with 3 L were removed, and thoracentesis where 1.2 L were removed. There is no growth of bacteria after 48 hours in both fluid samples. Repeat chest x-ray after thoracentesis showed reaccumulation of fluid in left hemithorax. Given his frequent re-accumulations of large volume ascites, recent up titration of diuretics, and worsening pleural effusion patient may benefit from TIPS procedure and was sent to [facility] for further evaluation. Plan -Continue with home ciprofloxacin 500 mg daily for SBP prophylaxis -Daily AMERICA D labs -Continue with home lactulose 3 times daily to prevent hepatic encephalopathy -Hold diuretics given resolving MASSIMO, and to prevent hepatic encephalopathy in preparation for possible T IPS procedure. -N.p.o. after midnight for TIPS evaluation. MASSIMO (acute kidney injury) 07/24/2017 Assessment & Plan (08/15/2019 2:18 PM EDT): Secondary to ischemic ATN due to prolonged hypotension necessitating pressors. Now resolved with serum creatinine at baseline Continue to monitor blood pressure Assessment & Plan (07/27/2017 8:20 PM EDT): On presentation to OSH, now resolved. On home diuretics. -trend BMP daily. -avoid nephrotoxins Assessment & Plan (07/24/2017 2:26 AM EDT): Patient with MASSIMO at OSH, currently resolving at this time. -Cont to hold diuretics as MASSIMO resolves -trend BMP daily. -avoid nephrotoxins. Awaiting organ transplant 04/15/2017 History of spontaneous bacterial peritonitis 7 08/11/2019 Assessment & Plan (07/12/2019 5:49 PM EDT): Patient with prior SBP, currently on ciprofloxacin 500 mg daily for secondary prophylaxis. -Continue ciprofloxacin 500 mg daily Hepatic encephalopathy 12/03/201607/28 Assessment & Plan (07/24/2017 2:27 AM EDT): Stable. Not encephalopathic on exam. Cont with home lactulose TID and rifaximin 550mg BID. Assessment & Plan (07/24/2017 2:11 AM EDT): Stable. Not encephalopathic on exam. Cont with home lactulose TID and rifaximin 550mg BID. Ascites 12/02/2016 07/26/2017 Assessment & Plan (07/24/2017 2:27 AM EDT): Patient with EtoH cirrhosis complicated by large volume ascites, and SBP. Has had multiple paracentesis in the past. At OSH he had paracentesis performed with removal of 3 L. Peritoneal fluid studies are not recorded on outside hospital paperwork however there is culture of peritoneal fluid that shows no growth after 48 hours. He does not have any abdominal pain at this time and no fever, chills or leukocytosis. Concern for infection is low. His abdomen is currently distended with re- accumulation of ascitic fluid. Plan -TIPS workup as below -Holding diuretics for now. -Continue with ciprofloxacin 500 mg daily for SBP prophylaxis. Assessment & Plan (07/24/2017 2:24 AM EDT): Patient with EtoH cirrhosis complicated by large volume ascites, and SBP. Has had multiple paracentesis in the past. At OSH he had paracentesis performed with removal of 3 L. Peritoneal fluid studies are not recorded on outside hospital paperwork however there is culture of peritoneal fluid that shows no growth after 48 hours. He does not have any abdominal pain at this time and no fever, chills or leukocytosis. Concern for infection is low. His abdomen is currently distended with re- accumulation of ascitic fluid. Plan -TIPS workup as below -Holding diuretics for now. -Continue with ciprofloxacin 500 mg daily for SBP prophylaxis. Pre-transplant evaluation fo r liver transplant 10/02/2016 04/15/2017 Laennec's cirrhosis 10/02/2016 05/09/19 21 Assessment & Plan (02/22/2019 3:37 PM EST): H/o alcoholic liver cirrhosis on transplant list, with history of decompensations including ascites, hepatic encephalopathy, and SBP, s/p TIPS in 2018. Home meds include lactulose 20g TID, furosemide 20mg daily and spironolactone 50mg daily. MELD-Na score: 25 at 02/22/2019 3:39 AM MELD score: 17 at 02/22/2019 3:39 AM Calculated from: Serum Creatinine: 0.54 mg/dL (Rounded to 1 mg/dL) at 02/22/2019 3:39 AM Serum Sodium: 126 mmol/L at 02/22/2019 3:39 AM Total Bilirubin: 4.4 mg/dL at 02/22/2019 3:39 AM INR(ratio): 1.5 at 02/22/2019 3:39 AM Age: 54 years - Lactulose 20 g TID - Titrate to 3-4 BMs - Discontinued Rifaximin 550 mg BID 02/21 - Started on ciprofloxacin for SBP prophylaxis on 02/23 - restarted home lasix 20mg, spironolactone 50mg - f/u optimization of diuretics - Daily MELD labs Assessment & Plan (02/18/2019 9:15 AM EDT): H/o alcoholic liver cirrhosis on transplant list, with history of decompensations including ascites, hepatic encephalopathy, and SBP, s/p TIPS in 2018. Home meds include Rifaximin 550mg twice per day, lactulose 20g TID, furosemide 20mg daily and spironolactone 50mg daily. MELD-Na score: 26 at 02/18/2019 3:04 AM MELD score: 18 at 02/18/2019 3:04 AM Calculated from: Serum Creatinine: 0.51 mg/dL (Rounded to 1 mg/dL) at 02/18/2019 3:04 AM Serum Sodium: 126 mmol/L at 02/18/2019 3:04 AM Total Bilirubin: 5.9 mg/dL at 02/18/2019 3:04 AM INR(ratio): 1.6 at 02/18/2019 3:04 AM Age: 54 years - Lactulose 20 g TID - Titrate to 3-4 BMs - Cont Rifaximin 550 mg BID - restarted home lasix 20mg, spironolactone 50mg - f/u optimization of diuretics - Daily MELD labs - restart cipro for SBP prophylaxis after finished course of Ramon Assessment & Plan (02/05/2019 5:51 AM EDT): 54 year old male with alcoholic liver cirrhosis on transplant list, with history of decompensations including ascites, hepatic encephalopathy, and SBP, status post TIPS in 2018. Currently managed at home with Rifaximin 550mg twice per day, lactulose 20g TID, furosemide 20mg daily and spironolactone 50mg daily. At [facility], patient received IV lasix 40mg daily. - Lactulose 20 g TID - Titrate to 3-4 BMs - Cont Rifaximin 550 mg BID - Hold diuretics for now for concern of hyponatremia. Consider restarting diuretics after checking labs in AM. - Daily MELD labs - SBP prophylaxis continued MELD-Na score: 19 at 01/20/2019 7:09 AM MELD score: 17 at 01/20/2019 7:09 AM Calculated from: Serum Creatinine: 0.54 mg/dL (Rounded to 1 mg/dL) at 01/20/2019 7:09 AM Serum Sodium: 135 mmol/L at 01/20/2019 7:09 AM Total Bilirubin: 6.6 mg/dL at 01/20/2019 7:09 AM INR(ratio): 1.4 at 01/20/2019 7:09 AM Age: 54 years Assessment & Plan (02/05/2019 5:49 AM EDT): 54 year old male with alcoholic liver cirrhosis on transplant list, with history of decompensations including ascites, hepatic encephalopathy, and SBP, status post TIPS in 2018. Currently managed at home with Rifaximin 550mg twice per day, lactulose 20g TID, furosemide 20mg daily and spironolactone 50mg daily. At [facility], patient received IV lasix 40mg daily. - Lactulose 20 g TID - Titrate to 3-4 BMs - Cont Rifaximin 550 mg BID - Hold diuretics for now for concern of hyponatremia. Consider restarting diuretics after checking labs in AM. - Daily MELD labs - SBP prophylaxis continued MELD-Na score: 19 at 01/20/2019 7:09 AM MELD score: 17 at 01/20/2019 7:09 AM Calculated from: Serum Creatinine: 0.54 mg/dL (Rounded to 1 mg/dL) at 01/20/2019 7:09 AM Serum Sodium: 135 mmol/L at 01/20/2019 7:09 AM Total Bilirubin: 6.6 mg/dL at 01/20/2019 7:09 AM INR(ratio): 1.4 at 01/20/2019 7:09 AM Age: 54 years Encounters Date Type Department Care Team Description 05/11/2024 Telephone [facility] Transplant Department [address] [place] [address] [id number] Erika Bonds RN 04/29/2024 Abstract [facility] Transplant Department [address] [place] [address] [id number] Dylan Phelps MD 04/28/2024 Abstract [facility] Department [address] [place] [address] [id number] Dylan Phelps MD 04/26/2024 Abstract [facility] Department [address] [place] [address] [id number] Dylan Phelps MD 04/06/2024 Abstract [facility] Department [address] [place] [address] [id number] Dylan Phelps MD 03/08/2024 Abstract [facility] Department [address] [place] [address] [id number] Dylan Phelps MD 03/07/2024 Abstract [facility] Department [address] [place] [address] [id number] Dylan Phelps MD 03/07/2024 Abstract [facility] Department [address] [place] [address] [phone] Dylan Phelps MD 03/03/2024 Telephone [facility] Department [address] [place] [address] [id number] Dylan Phelps MD from Last 3 Months Immunizations Name Administration Dates Next Due COVID-19, Pfizer, mRNA, Biva lent Booster, PF, 30 mcg/0.3 mL dose (for age 12 y and up) 05/06/2022 Hepatitis A Vaccine, Adult Dosage 07/14/2017, Hepatitis B Vaccine, Dialysi s Patient Dosage 07/14/2017,06/01/2017,01/14/2017 Hepatitis B adult (ENGERIX-B/RECOMBIVAX HB ADULT) vaccine 1 mL IM 12/02/2016 INFLUENZA, SPLIT VIRUS, TRIVALENT, PF 01/25/2024 Influenza, Injectable, Quadr ivalent, Preservative Free 05/06/2022,01/11/2020,06/16/2019,2018,01/20/2019(Deferred: Patient Refused - educated about importance, continues to refuse) Family History Medical History Relation Name Comments Diabetes Father Stroke Father No Known Problems Mother Relation Name Status Comments Father Mother Alive Social History Tobacco Use Types Packs/Day Years Used Date Smoking Tobacco: Former Cigarettes 2 30 1 05/26/1985 - 03/25/2016 Smokeless Tobacco: Never Tobacco Cessation:Counseling Given: Not Answered Alcohol Use Standard Drinks/Week Comments No 0 (1 standard drink = 0.6 oz pure alcohol) Quit alcohol in approximately March 2016 Sex and Gender Information Value Date Recorded Sex Assigned at Male 11/20/2022 12:22 PM EDT Legal Sex Male 5:53 PM EDT Gender Identity Male 11/20/2022 12:22 PM EDT Sexual Orientation Choose not to disclose 2022 12:22 PM EDT Last Filed Vital Signs Vital Sign Reading Time Taken Comments Blood Pressure 131/85 01/25/2024 11:38 AM EDT Pulse 64 01/25/2024 11:38 AM EDT Temperature 36.6 ??C (97.8 ??F) 01/25/2024 11:38 AM E DT Respiratory Rate 18 01/25/2024 11:38 AM EDT Oxygen Saturation 98% 01/25/2024 11:38 AM EDT Inhaled Oxygen Concentration - - Weight 91 kg (200 lb 9.9 oz) 01/25/2024 11:38 AM EDT Height 170.2 cm (5' 7 ) 11/14/2022 2:00 PM EDT Body Mass Index 31.42 11/14/2022 2:00 PM EDT Plan of Treatment Upcoming Encounters Date Type Department Care Team (Late st Contact Info) Description 08/01/2024 11:30 AM EDT Follow-Up [facility] [address] [place] [id number] Dylan Phelps MD [address], [place] [id number] Health Maintenance Due Date Last Done Comments Cologuard 1964 Colon Cancer Screening 1965 Colonoscopy 1964 FOBT / Fit Test 1965 Sigmoidoscopy 1964 Ophthalmology Exam 01/03/1974 Urine Microalbumin 05/17/2022 05/17/2021, 04/06/2020 DTaP,Tdap,and Td Vaccines (2 - Td or Tdap) 09/16/2023 09/15/2013, 10/26/2006 COVID-19 Vaccine (6 - 2023-2 5 season) 2023 05/06/2022, 11/25/2021, 03/25/2021, Additional history exists RSV Vaccine (60+ years old a nd patients) (1 - Risk 60-74 years 1-dose series) 2024 Alcohol/Substance Use Screening 04/20/2024 Depression Evaluation 04/20/2024 Social Drivers of Health Layla ual Screening 04/20/2024 Hemoglobin A1C 06/04/2024 12/03/2023, 05/22, 02/12/2023, Additional history exists Basic Metabolic Panel 09/11/2024 09/12/2023 , 11/19/2022, 11/15/2022, Additional history exists CT Lung Cancer Screening (Baseline) 11/29/2024 11/30/2023, 11/05/2023, 05/06/2022, Additional history exists Hepatitis B Vaccines Completed 07/14/2017, 06/01/2017, 01/14/2017, Additional history exists HIV Screening Completed 09/09/2019, 08/19, 10/15/2017, Additional history exists Hepatitis C Screening Completed 09/09/2019 , 09/09/2019, 09/14/2018, Additional history exists Abdominal Aortic Aneurysm (A AA) Screening Completed 05/05/2020, 02/10/2020, 07/12/2019, Additional history exists Pneumococcal Vaccine: Pediat man (0-5 Years) and At-Risk Patients (6-64 Years) Completed 09/11/2022 Zoster Vaccines Completed 09/11/2022, 07/09/2022 CT Lung Cancer Screening (12 months, previous LungRADS 1 or 2) Discontinued 11/30/2023, 11/05/19, 05/06/2022, Additional history exists Influenza Vaccine Completed 01/25/2024, , 05/06/2022, Additional history exists Medical Devices Implanted Type Area Housekeeping Supervisor Device Identifier Shelf Expiration Date Model / Serial / Lot Shunt Transjugular Intrahepatic Portosystemic Tips Endoprosthesis [id number] Viatorr - [id number] Implanted:Qty: 1 on 07/28/2017 at [facility] Implant W L GORE 12/26/2019 [id number] / / Mesh Hernia With Strap Large Ventralex - [id number] Implanted:Qty: 1 on 03/20/2020 by Fernando Fine MD PhD at [facility] Mesh Right: Abdomen [employer] 01/15/2021 [id number] / / [id number] Stent Biliary Rx Fully Covered Self Expanding Metallic Rmv With Permalume Covering 8.5fr [id number] Wallflex - [id number] - [id number] Implanted:Qty: 1 on 11/21/2022 by Dunia Osorio MD at [facility] Stent N/A: Bile Duct [employer] 08/21/2024 [id number] / [id number] / Explanted Type Area Housekeeping Supervisor Device Identifier Shelf Expiration Date Model / Serial / Lot Ercp Stent-11/21/2022 Implanted:07/2022 (Quantity not on file) Explanted:06/2022 (Quantity not on file) ERCP Stent Bile Duct 1 / / Txp Internal Biliary Stent- 0 Implanted:07/20 (Quantity not on file) Explanted:07/2020 (Quantity not on file) TXP Internal Biliary Stent Bile Duct Procedures * Due to [place] state law, this organization might not be sharing negative HIV tests. Procedure Name Priority Date/Time Associated Diagnosis Comments TACROLIMUS LEVEL, OUTSIDE LAB Routine 04/25/2024 7:13 AM EST AFP TUMOR MARKER, OUTSIDE LAB Routine 04/25/2024 7:13 AM EST LIVER POST EXTERNAL PANEL Routine 04/25/2024 7:13 AM EST LIVER POST EXTERNAL PANEL Routine 03/25/2024 8:05 AM EST AFP TUMOR MARKER, OUTSIDE LAB Routine 03/03/2024 6:28 AM EST TACROLIMUS LEVEL, OUTSIDE LAB Routine 03/03/2024 6:28 AM EST LIVER POST EXTERNAL PANEL Routine 03/03/2024 6:[address] CHEST W CONTRAST Routine 11/05/2023 4 :35 PM EDT History of hepatocellular carcinoma History of liver transplant (CMS/HCC) (HCC) BASIC METABOLIC PANEL Routine 11/15/2022 3:07 AM EDT MICROALBUMIN, RANDOM URINE WITH CREATININE Routine 05/17/2021 11:35 AM EST Type 2 diabetes mellitus with hyperglycemia, with long-term current use of insulin (CMS/HCC) (HCC) HEMOGLOBIN A1C Routine 05/17/2021 11:31 AM EST Type 2 diabetes mellitus with hyperglycemia, with long-term current use of insulin (CMS/HCC) (HCC) CT ABDOMEN PELVIS W CONTRAST Routine 05/05/2020 5:27 PM EST HEPATITIS C RNA, QUANTITATIVE, PCR Routine 09/09/2019 11:52 AM EDT At risk for infection transmitted from donor S/P liver transplant (CMS/HCC) (HCC) from Last 3 Months or Most Recently Relevant to Health Maintenance Results * Due to [place] state law, this organization might not be sharing negative HIV tests. * LIVER POST EXTERNAL PANEL (04/25/2024 7:13 AM EST) Only the most recent of3 resultswithin the time period is included. Sodium 139 mmol/L [facility] Potassium 4.5 [facility] Chloride 110 [facility] Carbon Dioxide 23 [facility] Glucose 155 [facility] BUN 18 mg/dL [facility] Creatinine 1.16 mg/dL [facility] Calcium 9.6 mg/dL [facility] Total Protein 7.1 g/dL [facility] Albumin 4.4 g/dL [facility] Bilirubin, Total 0.8 mg/dL [facility] Alkaline Phosphatase 113 U/L [facility] AST 37 U/L [facility] ALT 53 U/L [facility] Magnesium 1.70 mg/dL [facility] WBC 5.2 10*3/uL [facility] Hgb 14.1 [facility] Hematocrit 40.6 % [facility] Platelets 127 10*3/uL [facility] 04/25/2024 7:13 AM EST Dylan Phelps MD LAB BLOOD ORDERABLES Final Re sult Performing Organization Address [facility] Co de Phone Number [facility] [address] [place] [id number] * AFP Tumor Marker, Outside Lab (04/25/2024 7:13 AM EST) Only the most recent of2 resultswithin the time period is included. Alpha Fetoprotein, Tumor Marker 1.4 [facility] Blood Structure of peripheral vein / Unknown 04/25/2024 7:13 AM EST Dylan Phelps MD LAB BLOOD ORDERABLES Final Re sult Performing Organization Address City/[facility]/ZIP Co de Phone Number [facility] [address] [place] [address] * Tacrolimus Level, Outside Lab (04/25/2024 7:13 AM EST) Only the most recent of2 resultswithin the time period is included. Tacrolimus, Highly Sensitive 5.5 [facility] Blood Structure of peripheral vein / Unknown 04/25/2024 7:13 AM EST us Dylan Phelps MD LAB BLOOD ORDERABLES Final Re sult [facility] [address] [place] [address] * CT Chest W Contrast (11/05/2023 4:35 PM EDT) Anatomical Region Laterality Modality Body Computed Tomogra phy 11/05/2023 5:42 PM EDT Impressions 11/19/2023 3:36 PM EDT Impression: Stable micronodules. ??No new nodules. No thoracic adenopathy. If this radiology report contains a blank impression section, it is an incomplete radiology report. ??Please contact the interpreting radiologist or applicable radiology division as soon as possible to obtain the completed interpretation. ? Workstation ID: [id number] Up-to-date CT equipment and radiation dose reduction techniques were employed. CTDIvol: 3.1 - 23.9 mGy. DLP: 2643 mGy-cm. ??The following accession numbers are related to this dose report [id number]: [id number] Narrative 11/19/2023 3:36 PM EDT Indication: ??58 year old male with history of hepatocellular carcinoma now status post liver transplant. HCC surveillance Z85.05 - I10 - Personal history of malignant neoplasm of liver Z85.05 - I10 - Personal history of malignant neoplasm of liver, Comparison: 05/06/2022 Dose: For radiation dose control at least one of the following techniques was used in this procedure (1) Automated exposure control (2) Adjustment of the mA and/or kV according to patient size (3) Use of iterative reconstruction technique. Findings: Neck and thoracic inlet: Subcentimeter left thyroid nodule. Mediastinum and large vessels: ? Aorta Mild aortic wall calcifications. Pulmonary arteries Unremarkable shape and diameter. Esophagus Normal esophagus. Other mediastinal findings No other abnormal mediastinal findings are present. Heart: Cardiac size Heart size is normal. Coronary arteries Mild coronary calcifications. Valves No valvular calcifications. Pericardium No abnormality. Lymph nodes: Supraclavicular and axillary Normal sized lymph nodes, no enlarged lymph nodes. Mediastinal Normal sized lymph nodes, no enlarged lymph nodes. Hilar Normal sized lymph nodes, no enlarged lymph nodes. Others None. Lung parenchyma: Stable 4 mm right middle lobe nodule (6:174), 2 mm right lower lobe nodule (6:161), 2 mm left upper lobe micronodule (6:140). ??No consolidation. Airways: Mild thickening and irregularities of the airway mckenna. ?? Pleura: No abnormality. Upper abdomen: No adrenal nodules. ??No focal abnormality in the liver or spleen. ??Status post liver transplantation. Chest wall and bones: Mild degenerative change in the spine. ??Bilateral gynecomastia. Resulting Agency Comment [id number] Procedure Note Natasha Michaud MD - 11/19/2023 Indication: 58 year old male with history of hepatocellular carcinoma nowstatus post liver transplant. HCC surveillance Z85.05 - I10 - Personalhistory of malignant neoplasm of liver Z85.05 - I10 - Personal history ofmalignant neoplasm of liver, Comparison: 05/06/2022 Dose: For radiation dose control at least one of the following techniqueswas used in this procedure (1) Automated exposure control (2) Adjustmentof the mA and/or kV according to patient size (3) Use of iterativereconstruction technique. Findings: Neck and thoracic inlet: Subcentimeter left thyroid nodule. Mediastinum and large vessels: Aorta Mild aortic wall calcifications. Pulmonary arteries Unremarkable shape and diameter. Esophagus Normal esophagus. Other mediastinal findings No other abnormal mediastinal findings are present. Heart: Cardiac size Heart size is normal. Coronary arteries Mild coronary calcifications. Valves No valvular calcifications. Pericardium No abnormality. Lymph nodes: Supraclavicular and axillary Normal sized lymph nodes, no enlarged lymph nodes. Mediastinal Normal sized lymph nodes, no enlarged lymph nodes. Hilar Normal sized lymph nodes, no enlarged lymph nodes. Others None. Lung parenchyma: Stable 4 mm right middle lobe nodule (6:174), 2 mm right lower lobe nodule(6:161), 2 mm left upper lobe micronodule (6:140). No consolidation. Airways: Mild thickening and irregularities of the airway mckenna. Pleura: No abnormality. Upper abdomen: No adrenal nodules. No focal abnormality in the liver or spleen. Statuspost liver transplantation. Chest wall and bones: Mild degenerative change in the spine. Bilateral gynecomastia. IMPRESSION: Impression: Stable micronodules. No new nodules. No thoracic adenopathy. If this radiology report contains a blank impression section, it is anincomplete radiology report. Please contact the interpreting radiologistor applicable radiology division as soon as possible to obtain thecompleted interpretation. Workstation ID: [id number] Up-to-date CT equipment and radiation dose reduction techniques wereemployed. CTDIvol: 3.1 - 23.9 mGy. DLP: 2643 mGy-cm. The followingaccession numbers are related to this dose report [id number]: [id number] Dylan Phelps MD [facility] CT PROCEDURES Final Resul t * (ABNORMAL) Basic Metabolic Panel (11/15/2022 3:07 AM EDT) NA 135 135 - 145 mmol/L 11/15/2022 4:09 AM EDT [facility] K 4.6 3.5 - 5.3 mmol/L 11/15/2022 4:09 AM EDT [facility] Cl 103 97 - 110 mmol/L 11/15/2022 4:09 AM EDT [facility] CO2 24 24 - 32 mmol/L 11/15/2022 4:09 AM EDT [facility] BUN 27(H) 7 - 23 mg/dL 11/15/2022 4:09 AM EDT [facility] Creatinine 1.05 0.60 - 1.30 mg/dL 11/15/2022 4:09 AM EDT [facility] Glucose 268(H) 70 - 99 mg/dL 11/15/2022 4:09 AM EDT [facility]ILITY[facility]irmafonNY [facility] Calcium 8.8 8.7 - 10.7 mg/dL 11/15/2022 4:09 AM EDT [facility] Anion Gap 8 5 - 15 11/15/2022 4:09 AM EDT [facility] eGFR 82 >=60 mL/min/1. 73m2 11/15/2022 4:09 AM EDT [email or web address] Comment:The estimated glomer ular filtration rate (eGFR) is calculated using a new formula developed by the NKF-ASN task force to eliminate race-based correction factors. The new formula uses serum/plasma creatinine, age, and gender to determine eGFR. A value below 60mls/min might indicate kidney disease and will be flagged. For additional information, see Clark et al, Am J Kidney Dis. 2021;79(2):268- 288, A Unifying Approach for GFR estimation: Recommendations of the NKF-ASN Task Force on Reassessing the Inclusion of Race in Diagnosing Kidney Disease . Blood Structure of peripheral vein / Unknown Venipuncture / Unknown 11/15/2022 3:07 AM EDT 11/15/2022 3:29 AM EDT us Dylan Phelps MD LAB BLOOD ORDERABLES Final Re sult [facility] [address] [place] [address], * Microalbumin, Random Urine with Creatinine (05/17/2021 11:35 AM EST) Microalbumin, Urine 1.1 mg/dL 05/17/2021 12:34 PM EST [facility] Creatinine, Urine 97 22 - 328 mg/dL 05/17/2021 12:34 PM EST [facility] Microalb/Creat Ratio, Random Urine 11.3 <30.0 mcg/mgCr 05/17/2021 12:34 PM EST [facility] Comment: Microalbumin Reference Range: Normal ? <30 mcg/mg Creatinine Microalbuminuria ? 30-300 mcg/mg Creatinine Clinical Albuminuria >300 mcg/mg Creatinine Reference: ADA Guideline. Diabetes Care. 2004;27 (suppl 1) Urine Voided urine specimen / Unknown Non-Blood Collection / Unknown 05/17/2021 11:35 AM EST 05/17/2021 12:01 PM EST us Angelita Villa MD LAB URINE ORDERABLES Final Resul t [email or web address] [address] [place] [address], * (ABNORMAL) Hemoglobin A1c (05/17/2021 11:31 AM EST) Hemoglobin A1C 7.7(H) <5.7 % of total Hgb 05/18/2021 2:37 AM EST [employer] Comment: For someone without known diabetes, a hemoglobin A1c value of 6.5% or greater indicates that they may have diabetes and this should be confirmed with a follow-up test. For someone with known diabetes, a value <7% indicates that their diabetes is well controlled and a value greater than or equal to 7% indicates suboptimal control. A1c targets should be individualized based on duration of diabetes, age, comorbid conditions, and other considerations. Currently, no consensus exists regarding use of hemoglobin A1c for diagnosis of diabetes for children. ?? eAG (MG/DL) 174 mg/dL 05/18/2021 2:37 AM EST [employer] eAG (MMOL/L) 9.7 mmol/L 05/18/2021 2:37 AM [employer] Blood Structure of peripheral vein / Unknown Venipuncture / Unknown 05/17/2021 11:31 AM EST 05/17/2021 11:40 AM EST Narrative [facility] - 05/18/2021 2:37 AM EST [facility] Received Date: us Angelita Villa MD LAB BLOOD ORDERABLES Final Resul t [facility] [address] [facility] [address], [place] [address], [employer] [facility] [address] [place] [address], [place] [address], * CT Abdomen Pelvis with Contrast (05/05/2020 5:27 PM EST) Anatomical Region Laterality Modality Body Computed Tomogra phy 05/06/2020 8:4 0 AM EST Impressions 05/06/2020 8:50 AM EST Small fluid pocket between the incision and transverse colon which may represent developing adhesions. Recommend correlation for any signs of infection in the incision on exam. Otherwise, no CT findings that might explain patient's fever. [id number] Narrative 05/06/2020 8:50 AM EST EXAMINATION: CT ABDOMEN PELVIS W CONTRAST INDICATION: Liver transplant patient. Newly febrile. TECHNIQUE: Images of the abdomen and pelvis were obtained with intravenous contrast, with oral contrast. Coronal and sagittal reformats were generated. COMPARISON: 02/10/2020. ?? FINDINGS: LOWER THORAX: Please refer to separately dictated chest CT report. HEPATOBILIARY: Post orthotopic liver transplantation. Parenchyma enhances homogenously. Hepatic and portal veins are patent. Gallbladder is surgically absent. SPLEEN: Mild splenomegaly. PANCREAS: No focal masses or ductal dilatation. ADRENAL GLANDS: No adrenal nodules. KIDNEYS/URETERS: No hydronephrosis, calculi, or solid mass lesions. GI TRACT: No distention or wall thickening. Sigmoid diverticulosis. PERITONEUM/RETROPERITONEUM: No ascites or free air. LYMPH NODES: No lymphadenopathy. VESSELS: Unremarkable. PELVIC ORGANS/BLADDER: Unremarkable. BONES AND SOFT TISSUES: Small fluid pocket just deep to the surgical incision and overlying the transverse colon. Previously there was only a tiny incisional hernia at the site. Procedure Note Jesse Bustillo MD - 05/06/2020 EXAMINATION: CT ABDOMEN PELVIS W CONTRAST INDICATION: Liver transplant patient. Newly febrile. TECHNIQUE: Images of the abdomen and pelvis were obtained with intravenouscontrast, with oral contrast. Coronal and sagittal reformats weregenerated. COMPARISON: 02/10/2020. FINDINGS: LOWER THORAX: Please refer to separately dictated chest CT report. HEPATOBILIARY: Post orthotopic liver transplantation. Parenchyma enhanceshomogenously. Hepatic and portal veins are patent. Gallbladder issurgically absent. SPLEEN: Mild splenomegaly. PANCREAS: No focal masses or ductal dilatation. ADRENAL GLANDS: No adrenal nodules. KIDNEYS/URETERS: No hydronephrosis, calculi, or solid mass lesions. GI TRACT: No distention or wall thickening. Sigmoid diverticulosis. PERITONEUM/RETROPERITONEUM: No ascites or free air. LYMPH NODES: No lymphadenopathy. VESSELS: Unremarkable. PELVIC ORGANS/BLADDER: Unremarkable. BONES AND SOFT TISSUES: Small fluid pocket just deep to the surgicalincision and overlying the transverse colon. Previously there was only atiny incisional hernia at the site. IMPRESSION: Small fluid pocket between the incision and transverse colon which mayrepresent developing adhesions. Recommend correlation for any signs ofinfection in the incision on exam. Otherwise, no CT findings that mightexplain patient's fever. [id number] Reyes Voss MD [facility] CT PROCEDURES Final Result * Hepatitis C RNA, Quantitative, PCR (09/09/2019 11:52 AM EDT) Hcv RNA, Quantitative Real Time PCR <15 NOT DETECTED NOT DETECTED IU/mL 09/14/2019 5:38 PM EDT [employer] [facility] Hepatitis C Quantitative PCR Log IU/mL <1.18 NOT DETECTED NOT DETECTED Log IU/mL 09/14/2019 5:38 PM EDT [employer] [facility] Comment: This test was performed using Real-Time Polymerase Chain Reaction. Reportable Range: 15 IU/mL to 100,000,000 IU/mL (1.18 Log IU/mL to 8.00 Log IU/mL). ?? The analytical performance characteristics of this assay have been determined by [employer] The modifications have not been cleared or approved by the FDA. This assay has been validated pursuant to the CLIA regulations and is used for clinical purposes. ?? For more information on this test, go to: http://education.Sembraire/faq/MJF85f7 (This link is being provided for informational/ educational purposes only.) Blood Structure of peripheral vein / Unknown Venipuncture / Unknown 09/09/2019 11:52 AM EDT 09/09/2019 12:07 PM EDT Narrative [facility] - 09/14/2019 5:38 PM EDT [facility] Received Date:[id number] us Cyndi Pereira MD LAB BLOOD ORDERAB LES Final Result [facility] [address] [facility] [address], [place] [address], [employer] [facility] [address] [facility] 3rd [address], [place] [address], from Last 3 Months or Most Recently Relevant to Health Maintenance Insurance [address] [place] [address] [facility] [address] [id number] [address] [place] [address] [facility] [address] [facility] Advance Directives Documents on File Type Date Recorded Patient O And M Supervisor Expl anation Health Care Proxy 02/05/2019 4:40 PM Rivera Singleton i 01/29/19 Health Care Proxy 09/15/2018 2:40 PM Health Care Proxy 10/19/2017 12:30 PM 10/15 Health Care Proxy 10/14/2016 12:00 AM Heal th Care Proxy * Full Code (Latest Code Status on File) Date Activated Date Inactivated Comments 11/13/2022 11:17 AM 11/16/2022 12:13 AM * Full Code Date Activated Date Inactivated Comments 01/11/2021 8:53 PM 01/13/2021 6:19 PM * Full Code Date Activated Date Inactivated Comments 09/21/2020 7:52 AM 09/21/2020 3:01 PM * Full Code Date Activated Date Inactivated Comments 05/02/2020 12:06 AM 05/03/2020 2:44 PM * Full Code Date Activated Date Inactivated Comments 03/20/2020 10:52 AM 03/20/2020 7:22 PM Healthcare Agents on File Name Relationship Healthcare Agent Relationship Communication Rivera Jon Son Health Care Agent Care Teams Bail Attacher Relationship Specialty Start Date End Date Agustin Mix [address] [place] [address] PCP - General Internal Medicine 04/15/17
--- OUTSIDE RECORDS SUMMARY | 2024-05-20 07:34 | XMS_ITS | Encounter Summary ---
Author Organization [facility] Address [address] [place] [address] [address] [place] [address] Care Team Providers Care Plastics Nurse Name Role Phone Agustin Marrero MD Primary Care Provide r Encounter Details Date Type Department Care Team (Latest Contact Info) Description 06/18/2021 Abstract [facility] CONVERSIONS Dental, Provider, DDS Social History Tobacco [...] Description 05/31/2024 9:45 AM EST Office Visit [facility] MEDICINE [address] [place] [address] 07/05/2024 10:00 AM EDT Office Visit [facility] MEDICINE [address] [place] [address] Agustin Marrero MD [address] [place] [address] 11/16/2024 10:00 AM EDT Office Visit [facility] ADULT DENTAL [address] [place] [address] Catherine Antonio [address] [place] [address] documented as of this encounter Visit Diagnoses Not on filedocumented in this encounter Care Teams Plastics Nurse Relationship Specialty Start Date End Date Agustin Marrero MD [address] [place] [address] PCP - General Internal Medicine 01/25/14 [facility] 06/13/16 documented as of this encounter
--- OUTSIDE RECORDS SUMMARY | 2024-05-20 07:34 | XMS_ITS ---
Author Organization [facility] Address [address] [place] [address] Care Team Providers Care Broommaking Supervisor Name Role Phone Agustin Mix Primary Care Provider + Transplant Episode Liver Recipient [facility] ([place], [place]) - [facility] Organ Received: Liver Transplanted on 08/09/2019 Marked as Active Follow-up on 08/09/2019 Liver CoordinatorErika Bonds RN Phone: N/A Fax: N/A Email: N/A [place] Organ Diagnosis Organ Primary Contributory Liver Alcoholic Cirrhosis Infection History Noted Survival Infection Treatment Organism Resolved 06/12/2020 308 days Cytomegalovirus (CMV) viremia (CMS/HCC) (HCC) 05/09/2020 274 days COVID-19 Donor Information Organ ABO Source Meets Risk Criteria HLA Match Mismatches Cross Match Liver Transplanted O DBD Yes A: B: DR: Liver Donor Serology Results Anti-CMV CMV IgG: Positive EBV IgG EBV VCA IgG: Positive Anti-HBcAb HBC Total: Negative HBsAg HBsAg: Negative HBV DNA No results on file Anti-HCV HCV: Negative Anti-HIV I/II HIV-1: Negative Anti-HTLV I/II HTLV: Not Done RPR/VDRL RPR: Negative EBV IgM EBV VCA IgM: Negative HBsAb HBsAb: Not Done EBNA No results on file HBC Total HBC Total: Negative SARS CoV-2 No results on file Care Team Name Role Phone Fax Email Erika Bonds RN Liver Coordinator N/A N/A N/A Dylan Phelps MD [employer] [email or web address] Sarai Diaz Referring Physician [phone] N/A Events Post-Transplant Pre-Transplant Admitted: 08/09/2019 Referred: 09/08/2016 Transplanted: 08/09/2019 Evaluation began: 7 Discharged: 08/25/2019 Committee: 10/24/2016 Center waitlisted: 7
--- OUTSIDE RECORDS SUMMARY | 2024-05-20 07:34 | XMS_ITS | Encounter Summary ---
Author Organization [employer] [facility] Address [address] [place] [address] 7t [place] [address] Care Team Providers Care Winder Operator Name Role Phone Agustin Marrero MD Primary Care Provide r Reason for Visit * Reason Onset Date Comments Med Refill 10/16/2022 Encounter Details Date Type Department Care Team ([facility] st Contact Info) Description 10/16/2022 Telephone [facility] MEDICINE [address] [place], [place] [phone] Agustin Marrero MD [address] [place] [address] Med Refill Social History Tobacco Use Types Packs/Day Years Used Date Smoking Tobacco: Former Cigarettes Passive Smoke Exposure: Never Smokeless Tobacco: Never Alcohol Use Standard [...] suspected to have Coronavirus/COVID-19? No / Unsure 10/07/2022 10:05 AM EDT documented as of this encounter Miscellaneous Notes * Telephone Encounter - Katheryn Dallas RN - 10/16/2022 9:50 AM EDT Refill sent to PCP yesterday; Pending * Telephone Encounter - Lluvia Reji - 10/16/2022 9:37 AM EDT Tc from pt requesting medication refill for traMADol (Ultram) 50 MG tablet documented in this encounter Plan of Treatment Upcoming Encounters Date Type Department Care Team (Late st Contact Info) Description 05/31/2024 9:45 AM EST Office Visit [facility] MEDICINE [address] [place] [address] 07/05/2024 10:00 AM EDT Office Visit [facility] MEDICINE [address] [place] [phone] Agustin Marrero MD [address] [place] [address] 11/16/2024 10:00 AM EDT Office Visit [facility] ADULT DENTAL [address] [place] [address] Matty Antonioaris [address] [place] [address] documented as of this encounter Visit Diagnoses Not on filedocumented in this encounter Care Teams Winder Operator Relationship Specialty Start Date End Date Agustin Marrero MD [address] [place] [phone] PCP - General Internal Medicine 01/25/14 [facility] 06/13/16 documented as of this encounter
--- OUTSIDE RECORDS SUMMARY | 2024-05-20 07:34 | XMS_ITS | Encounter Summary ---
Author Organization [email or web address] [facility] Address [address] [place] [address] 7t [place] [address] Care Team Providers Care Production Foreman Name Role Phone Agustin Marrero MD Primary Care Provide r Encounter Details Date Type Department Care Team (Latest Contact Info) Description 07/16/2020 Abstract [facility] CONVERSIONS Dental, Provider, DDS Social History [...] 9:45 AM EST Office Visit [facility] MEDICINE [address] [place] [address] 07/05/2024 10:00 AM EDT Office Visit [facility] MEDICINE [address] [place] [address] Agustin Marrero MD [address] [place] [address] 11/16/2024 10:00 AM EDT Office Visit [facility] ADULT DENTAL [address] [place] [address] Catherine Antonio [address] [place] [address] documented as of this encounter Visit Diagnoses Not on filedocumented in this encounter Care Teams Production Foreman Relationship Specialty Start Date End Date Agustin Marrero MD [address] [place] [address] PCP - General Internal Medicine 01/25/14 [facility] 06/13/16 documented as of this encounter
--- OUTSIDE RECORDS SUMMARY | 2024-05-20 07:34 | XMS_ITS | Encounter Summary ---
Author Organization [facility] Address [address] [place] [address] Care Team Providers Care Wood Lathe Operator Name Role Phone Agustin Mix Primary Care Provider + Encounter Details Date Type Department Care Team (Late st Contact Info) Description 01/01/2021 Orders Only [facility] Nuclear Medicine [address] [place] [address] Sreedhar Sotelo MD [address] [place], [place] [phone] Social History Tobacco Use Types Packs/Day Years [...] Info) Description 08/01/2024 11:30 AM EDT Follow-Up [facility] Liver Transplant Services [address] [place] [address] Dylan Phelps MD [address] [place] [phone] documented as of this encounter Visit Diagnoses Not on filedocumented in this encounter Care Teams Wood Lathe Operator Relationship Specialty Start Date End Date Agustin Mix [address] [place] [address] PCP - General Internal Medicine 04/15/17 documented as of this encounter
--- OUTSIDE RECORDS SUMMARY | 2024-05-20 07:34 | XMS_ITS | Encounter Summary ---
Author Organization [employer] Address [address] [place] [address] 7t [place] [address] Care Team Providers Care Machine Ceramic Coater Name Role Phone Agustin Marrero MD Primary Care Provide r Reason for Visit * Reason Comments Med Refill Encounter Details Date Type Department Care Team ([facility] st Contact Info) Description 2024 Refill [facility] MEDICINE [address] [place], [place] [phone] Agustin Marrero MD [address] [place] [address] Social History Tobacco Use Types Packs/Day Years [...] Description 05/31/2024 9:45 AM EST Office Visit [facility] MEDICINE [address] [place] [address] 07/05/2024 10:00 AM EDT Office Visit [facility] MEDICINE [address] [place] [phone] Agustin Marrero MD [address] [place] [address] 11/16/2024 10:00 AM EDT Office Visit [facility] ADULT DENTAL [address] [place] [address] Paco, Catherine [address] [place] [address] documented as of this encounter Visit Diagnoses Not on filedocumented in this encounter Additional Health Concerns Assessment Noted Time PHQ-9 Depression Total Score: 0 12/03/19 24 10:31 AM EDT documented as of this encounter Care Teams Machine Ceramic Coater Relationship Specialty Start Date End Date Agustin Marrreo MD [address] [place] [address] PCP - General Internal Medicine 01/25/14 [facility] 06/13/16 documented as of this encounter
--- OUTSIDE RECORDS SUMMARY | 2024-05-20 07:34 | XMS_ITS | Encounter Summary ---
Author Organization [facility] Address [address] [place] [address] Care Team Providers Care Jira Administrator Name Role Phone Agustin Mix Primary Care Provider + Encounter Details Date Type Department Care Team (Late st Contact Info) Description 07/23/2023 Orders Only [facility] Interventional Radiology [address] [place] [address] Pawel Sanchez MD [address] [place] [address] Social History Tobacco Use Types Packs/Day Years [...] Info) Description 08/01/2024 11:30 AM EDT Follow-Up [facility] Liver Transplant Services [address] [place] [address] Dylan Phelps MD [address] [place] [address] documented as of this encounter Visit Diagnoses Not on filedocumented in this encounter Care Teams Jira Administrator Relationship Specialty Start Date End Date Agustin Mix [address] [place] [address] PCP - General Internal Medicine 04/15/17 documented as of this encounter
--- OUTSIDE RECORDS SUMMARY | 2024-05-20 07:34 | XMS_ITS | Encounter Summary ---
Author Organization [employer] Address [address] [place] [address] 7t [place] [address] Care Team Providers Care System Manager Name Role Phone Agustin Marrero MD Primary Care Provide r Reason for Visit * Reason Onset Date Comments Med Refill 03/01/2024 Encounter Details Date Type Department Care Team ([facility] st Contact Info) Description 03/01/[address] [facility] MEDICINE [address] [place], [place] [phone] Agustin Marrero MD [address] [place] [address] Med Refill Social History Tobacco Use Types [...] encounter Miscellaneous Notes * Telephone Encounter - Patti White LPN - 03/01/2024 2:22 PM EST Medication was sent to [id number] on 02/29/24. * Telephone Encounter - Manjeet Mclaughlin - 03/01/2024 2:17 PM EST TC from pt requesting medication refill. Medications needing refill : 1- zolpidem (Ambien) 10 MG tablet To be sent to: [facility]/pharmacy #[id number] documented in this encounter Plan of Treatment Upcoming Encounters Date Type Department Care Team (Late st Contact Info) Description 05/31/2024 9:45 AM EST Office Visit [facility] MEDICINE [address] [place] [address] 07/05/2024 10:00 AM EDT Office Visit [facility] MEDICINE [address] [place] [address] Agustin Marrero MD [address] [place] [address] 11/16/2024 10:00 AM EDT Office Visit [facility] ADULT DENTAL [address] [place] [address] Catherine Antonio [address] [place] [address] documented as of this encounter Visit Diagnoses Not on filedocumented in this encounter Additional Health Concerns Assessment Noted Time PHQ-9 Depression Total Score: 0 12/03/19 10:31 AM EDT documented as of this encounter Care Teams System Manager Relationship Specialty Start Date End Date Agustin Marrero MD [address] [place] [address] PCP - General Internal Medicine 01/25/14 [facility] 06/13/16 documented as of this encounter
--- OUTSIDE RECORDS SUMMARY | 2024-05-20 07:34 | XMS_ITS | Encounter Summary ---
Author Organization [employer] Address [address] [place] [address] 7[address] [place] [address] Care Team Providers Care Account Management Specialist Name Role Phone Agustin Marrero MD Primary Care Provide r Reason for Visit * Reason Onset Date Comments FYI 10/13/2023 Encounter Details Date Type Department Care Team ([facility] st Contact Info) Description 10/13/2023 Telephone [facility] MEDICINE [address] [place], [place] [phone] Agustin Marrero MD [address] [place] [address] FYI Social History Tobacco Use Types Packs/Day Years [...] encounter Miscellaneous Notes * Telephone Encounter - Jaja Kebede - 10/13/2023 12:26 PM EDT Tc from Jessica MCPHERSON would like to inform PCP pt BP diastolic number was 99, denied any symptoms. Advised will forward message as FYI. Please contact at [phone] documented in this encounter Plan of Treatment Upcoming Encounters Date Type Department Care Team (Late st Contact Info) Description 05/31/2024 9:45 AM EST Office Visit [facility] MEDICINE [address] [place] [address] 07/05/2024 10:00 AM EDT Office Visit [facility] MEDICINE [address] [place] [address] Agustin Marrero MD [address] [place] [address] 11/16/2024 10:00 AM EDT Office Visit [facility] ADULT DENTAL [address] [place] [address] Catherine Antonio [address] [place] [address] documented as of this encounter Visit Diagnoses Not on filedocumented in this encounter Additional Health Concerns Assessment Noted Time PHQ-9 Depression Total Score: 5 06/16/19 24 9:35 AM EST documented as of this encounter Care Teams Account Management Specialist Relationship Specialty Start Date End Date Agustin Marrero MD [address] [place] [address] PCP - General Internal Medicine 01/25/14 [facility] 06/13/16 documented as of this encounter
--- OUTSIDE RECORDS SUMMARY | 2024-05-20 07:34 | XMS_ITS | Clinical Summary ---
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 Name Role Phone Agustin Marrero MD Primary Care Provide r Allergies No known active allergies Medications NovoLOG FLEXPEN 100 UNIT/ML penIndications:Ty pe 2 diabetes mellitus without complication, with long-term current use of insulin ([facility]) Use Insulin as per sliding scale TID (BG 150-200mg/dL: 10 units, 201-250 : 12 units, 251-300: 14 units, 301-350: 16 units, 351-400 18 units, >400 20 units 15 mL Active Blood Glucose Monitoring Suppl (PharmaDiagnosticsStyle [place] Lite) w/Device kit TEST 1 TIMES BY INTRADERMAL ROUTE EVERY DAY Active Continuous Blood Gluc Active Directory Specialist (FreeStyle [place] 2 [place]) device Active ferrous sulfate 325 (65 Fe) MG EC tablet Take 1 tablet by mouth in the morning. Active lactulose (Chronulac) 10 GM/15ML solution Take 15 mL by mouth in the morning and 15 mL in the evening. Active magnesium oxide (Mag-Ox) 400 (240 Mg) MG tablet TAKE 2 TABLETS BY MOUTH 2 TIMES A DAY Active metFORMIN XR (Glucophage-XR) 500 MG 24 hr tablet TOME OLINDA TABLETA TODOS LOS D CON LA SIDE LASTER STAPLE Active naloxone (Narcan) 4 mg/0.1 mL nasal spray Administer 0.1 mL into affected nostril(s). Active sodium polystyrene sulfonate (Kayexalate) powder TAKE 30 GRAMS ONCE A WEEK Active Lantus SoloStar 100 UNIT/ML pen 15 units Active Veltassa 8.4 g pack Taking Mon-Wed-Thu rather than every day due to stomach upset Active pen needle 32G x 4 mm misc Inject under the skin. Use as instructed Active dextran 70-hypromellose (artificial tears) 0.1-0.3 % ophthalmic solution APPLY 1-2 GTTS IN EYES EVERY DAY IF NEEDED 5 mL 3 Active acetaminophen (Tylenol) 325 MG tablet Take 2 tablets (650 mg) by mouth every 6 (six) hours if needed for moderate pain. 30 tablet Active FreeStyle lancetsIndication s:Type 2 diabetes mellitus without complication, with long-term current use of insulin ([facility]) USE 1 EACH DIRECTED THREE TIMES EVERY DAY 100 each 11 Active BD Insulin Syringe U/F 31G X 5/16 0.3 ML misc E11.9 FOR USE WITH INSULIN VIALS UNTIL YOU HAVE CHANGED OVER TO THE PENS. Active B-D UF III MINI PEN NEEDLES 31G X 5 MM misc USE TO INJECT 4 TIMES A DAY SEG N LO INDICADO Active ondansetron ODT (Zofran-ODT) 4 MG disintegrating tablet PLEASE SEE ATTACHED FOR DETAILED DIRECTIONS Active SUMAtriptan (Imitrex) 25 MG tablet TAKE 1 TAB BY MOUTH 1 TIME IF NEEDED FOR MIGRAINE. MAY REPEAT DOSE ONCE IN 2 HOURS IF NO RELIEF. DO NOT EXCEED 2 DOSES IN 24 HOURS. 15 tablet Active Continuous Glucose Sensor (FreeStyle Arvin 2 Sensor) miscIndications:T ype 2 diabetes mellitus without complication, with long-term current use of insulin ([facility]) USE DIRECTED EVERY 14 DAYS 2 each 2 Active tacrolimus (Prograf) 1 MG capsule Take 1 capsules (1mg) in the morning and 1 capsule (1mg) in the evening 180 capsule Active Gvoke HypoPen 2-Pack 0.5 MG/0.1ML injection PLEASE SEE ATTACHED FOR DETAILED DIRECTIONS 09/16/2 024 Active omeprazole (PriLOSEC) [address] capsuleIndication s:Gastroesophagea l reflux disease, unspecified whether esophagitis present TOME 1 CAPSULA POR VIA ORAL TODOS LOS QUINONES BEFORE A MEAL 90 capsule 1 024 Active sildenafil (Viagra) 100 MG tablet TAKE 1 TABLET 1 HOUR BEFORE SEXUAL RELATIONS ONCE DAILY NEEDED. 12 tablet 4 024 Active cholecalciferol (Vitamin D3) 25 MCG (1000 UT) tabletIndications :Type 2 diabetes mellitus without complication, with long-term current use of insulin ([facility]) TAKE 1 TABLET BY MOUTH EVERY DAY 90 tablet 1 024 Active FREESTYLE LITE test stripIndications: Type 2 diabetes mellitus without complications (CMS/HCC) USE TO TEST 3 TIMES DAILY 300 strip 3 024 Active gabapentin (Neurontin) 300 MG capsuleIndication s:Chronic midline low back pain without sciatica TOME 1 CAPSULA POR VIA ORAL DOS VECES AL [place] 60 capsule 025 Active zolpidem (Ambien) 10 MG tabletIndications :Primary insomnia TOME OLINDA TABLETA POR VIA ORAL TODOS LOS QUINONES AL ACOSTARSE CUANDO SEA NECESARIO 30 tablet 025 Active traMADol (Ultram) 50 MG tabletIndications :Chronic midline low back pain without sciatica Take 1 tablet (50 mg) by mouth every 8 (eight) hours if needed for severe pain. Take 1 tablet (50 mg) by mouth every 8 (eight) hours if needed for severe pain. Pt asking for an oval pill, not round please 84 tablet 025 Active Multiple Vitamin (Daily-Stacy Multivitamin) tablet Take 1 tablet by mouth every day 90 tablet 3 025 Active lidocaine (Lidoderm) 5 % patch Apply 1 patch topically in the morning. Remove & discard patch within 12 hours or as directed by . 30 patch 2 024 2024 Multiple Vitamin (Daily-Stacy Multivitamin) tablet Take 1 tablet by mouth every day 90 tablet 3 024 2024 Discontinued(R eorder (will not trigger notification to Pharmacy)) gabapentin (Neurontin) 300 MG capsuleIndication s:Chronic midline low back pain without sciatica TAKE 1 CAPSULE BY MOUTH TWICE A DAY 60 capsule 024 2024 Discontinued traMADol (Ultram) 50 MG tabletIndications :Chronic midline low back pain without sciatica Take 1 tablet (50 mg) by mouth every 8 (eight) hours if needed for severe pain. Take 1 tablet (50 mg) by mouth every 8 (eight) hours if needed for severe pain. Pt asking for an oval pill, not round please 84 tablet 2024 Discontinued(R eorder (will not trigger notification to Pharmacy)) zolpidem (Ambien) 10 MG tabletIndications :Primary insomnia TOME OLINDA TABLETA POR VIA ORAL TODOS LOS QUINONES AL ACOSTARSE CUANDO SEA NECESARIO 30 tablet 2024 Discontinued(R eorder (will not trigger notification to Pharmacy)) Active Problems Problem Noted Date Diagnosed Date Elevated serum creatinine 04/05/2024 Assessment & Plan (04/05/2024 9:15 AM EST): Pt seen in the ER back in august 2023 Scr was elevated at 1.91 Plan: repeat BMP Long-term current use of opiate analgesic 2023 Overview (03/29/2024): Medication: Tramadol 50mg Q8H PRN Indication: chronic midline low back pain without sciatica 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 Personal goal of weight loss discussedPatient has comorbidity of: DM Biliary stricture 02/12/2023 Assessment & Plan (06/16/2023 8:50 AM EST): Pt here for a follow up Previously admitted to the Hospital from 11/13-11/15/2022 with c/o RUQ abdominal pain and dark urine, found to have elevated AST/ALT/ALP. Denied alcohol consumption. CT revealed no focal lesions within transplanted liver, CBD mildly dilated, mild splenomegaly, and diverticuli. Symptoms most likely due to biliary stricture. Pain improved, hepatic enzymes down trended, and patient was discharged with plan for outpatient GI follow-up to consider outpatient ERCP for mildly dilated CBD. ERCP 11/21/2022 at [facility] showed single severe biliary stricture found in the post-transplant anastomosis. The stricture was post-surgical. A biliary sphinterotomy was performed. A temporary stent was placed in the CBP 02/21/2024 pt underwent ERCP with removal of stent. Assessment & Plan (02/12/2023 11:49 AM EDT): Pt here for a follow up Previously admitted to the Hospital from 11/13-11/15/2022 with c/o RUQ abdominal pain and dark urine, found to have elevated AST/ALT/ALP. Denied alcohol consumption. CT revealed no focal lesions within transplanted liver, CBD mildly dilated, mild splenomegaly, and diverticuli. Symptoms most likely due to biliary stricture. Pain improved, hepatic enzymes down trended, and patient was discharged with plan for outpatient GI follow-up to consider outpatient ERCP for mildly dilated CBD. Pt is s/p ERCP 11/21/2022 at [facility] Impression: A single severe biliary stricture found in the post-transplant anastomosis. The stricture was post-surgical. A biliary sphinterotomy was performed. A temporary stent was placed in the CBP They recommended to repeat ERCP in 3 months to remove stent. Pt is already scheduled for 02/20/2023 for ENDOSCOPIC RETROGRADE CHOLANGIOPANCREATOGRAPHY WITH REMOVAL OF FOREIGN BODY(S)/STENT(S)/PANCREATIC DUCT(S) WITH POSSIBLE MODERATE SEDATION [30454 (CPT??)] Partial edentulism 01/14/2023 Hospital discharge follow-up 11/27/2022 Assessment & Plan (11/27/2022 1:43 PM EDT): Hospital Course (11/13-11/15/22) Patient here for a HDF Admitted to the Hospital from 11/13-11/15/2022 with c/o RUQ abdominal pain and dark urine, found to have elevated AST/ALT/ALP. Denied alcohol consumption. CT revealed no focal lesions within transplanted liver, CBD mildly dilated, mild splenomegaly, and diverticuli. Symptoms most likely due to biliary stricture. Pain improved, hepatic enzymes down trended, and patient was discharged with plan for outpatient GI follow-up to consider outpatient ERCP for mildly dilated CBD. Pt is s/p ERCP 11/21/2022 at [facility] Impression: A single severe biliary stricture found in the post-transplant anastomosis. The stricture was post-surgical. A biliary sphinterotomy was performed. A temporary stent was placed in the CBP They recommended to repeat ERCP in 3 months to remove stent Chronic right-sided thoracic back pain Assessment & Plan (01/26/2024 12:59 PM EDT): Continues with Rx for Tramadol and Ambien Good engagement and participation with Group Medical Visit model Encouraged multifactorial approach to pain control including pharm and non-pharm modalities UTOX and pill count as expected Assessment & Plan (12/01/2023 1:26 PM EDT): Continues with Rx for Tramadol and Ambien Good engagement and participation with Group Medical Visit model Encouraged multifactorial approach to pain control including pharm and non-pharm modalities UTOX and pill count as expected Assessment & Plan (11/27/2022 2:03 PM EDT): Pt with c/o posterior thoracic back pain for months On exam there is superficial tenderness No palpable masses. Plan: Referral pain clinic for consideration of trigger point injections. Of note patient had a CT of the Chest 04/2022 that showed a small lung nodule only. Mass on back 11/27/2022 Assessment & Plan (06/16/2023 8:54 AM EST): He is now s/p excision of Left upper back large lipoma and Mid back sebaceous cyst by Dr. Paniagua 04/16/2023 Assessment & Plan (02/12/2023 12:00 PM EDT): 3 x 5 cm soft superficial mass posterior back suggestive of Lipoma US soft tissue of back IMPRESSION: No abnormality seen by ultrasound. Plan: General surgery referral Assessment & Plan (11/27/2022 2:04 PM EDT): 3 x 5 cm soft superficial mass posterior back suggestive of Lipoma Plan: US soft tissue of back Elevated liver enzymes 11/13/2022 Overview (08/31/2023): Last Assessment & Plan: Patient has a history of decompensated alcohol [...] ERCP tomorrow -serum CMV PCR -follow up PEt -follow up blood cultures Chronic abdominal pain 07/31/2022 Assessment & Plan (09/02/2022 10:58 AM EDT): Patient is here for a follow up He has been seen by the liver transplant surgeon (Dr Morris Bocanegra ) who noted that pt is s/p incisional hernia repair with mesh 03/2020. He examined him and reviewed most recent cross sectional imaging, he saw no obvious hernia recurrence in the region of his abdominal discomfort. He felt that he was experiencing discomfort secondary to the mesh and scar tissue formation. He had a lengthy discussion with him and his spouse that there is not an obvious surgical correction and that mesh excision or revision is more likely to be destructive with minimal benefit. He recommended he lose weight which may improve his symptoms. He also recommended he be evaluated by a chronic pain specialist who might consider analgesics or local wound injections. He was seen by it support specialist at [facility] who discussed that he needed someone that was willing to write for chronic narcotics and that any injection around the incision with local anesthetic will not afford him any meaningful improvement since this is visceral pain. Pt already has a narcotic contract with us and I have agreed to continue to prescribe his Tramadol 1 tab po q 8 hrs, we discussed risks of chronic opioid use and he verbalized understanding Pt stable, recommended to continue with current regimen Assessment & Plan (07/31/2022 9:54 AM EDT): Pt has been seen by the liver transplant surgeon (Dr Morris Bocanegra ) who noted that pt is s/p incisional hernia repair with mesh 03/2020. He examined him and reviewed most recent cross sectional imaging, he saw no obvious hernia recurrence in the region of his abdominal discomfort. He felt that he was experiencing discomfort secondary to the mesh and scar tissue formation. He had a lengthy discussion with him and his spouse that there is not an obvious surgical correction and that mesh excision or revision is more likely to be destructive with minimal benefit. He recommended he lose weight which may improve his symptoms. He also recommended he be evaluated by a chronic pain specialist who might consider analgesics or local wound injections. He was seen by it support specialist at [facility] who discussed that he needed someone that was willing to write for chronic narcotics and that any injection around the incision with local anesthetic will not afford him any meaningful improvement since this is visceral pain. Pt already has a narcotic contract with us and I have agreed to continue to prescribe his Tramadol 1 tab po q 8 hrs, we discussed risks of chronic opioid use and he verbalized understanding Dental plaque 05/15/2022 Chronic periodontal disease 05/15/2022 Generalized gingival recession 05/15/2022 Primary insomnia 04/22/2022 Assessment & Plan (04/22/2022 8:21 AM EST): Doing ok He is currently on Ambien 10 mg po qhs he tried Trazodone up to 200 mg q hs with no good results in audition to good sleep hygiene habits an Melatonin. he is well aware of the potential side effects associated with Ambien such as sleep walking, driving while asleep among others. He states his will monitor him closely Good sleep hygiene habits emphasized once again Sleep study ordered previously Other male erectile dysfunction 04/22/2022 Assessment & Plan (04/05/2024 9:03 AM EST): Evaluated by Urology, s/p penile prosthetic. Last seen 03/22/2024 Assessment & Plan (12/03/2023 10:27 AM EDT): Evaluated by Urology, last 09/04/2023 pt no longer getting results from Viagra or Cialis they discussed prosthetic Assessment & Plan (04/22/2022 8:28 AM EST): Uses Viagra prn Chronic midline low back pain without sciatica 0 04/21/2022 Assessment & Plan (03/29/2024 2:53 PM EST): -Good engagement and participation with Group Medical Visit model -Encouraged multifactorial approach to pain control including pharm and non- pharm modalities -UTOX as expected, forgot pills but estimated value within anticipated amt Assessment & Plan (12/03/2023 10:25 AM EDT): Pt with c/o low back pain Plain films 09/2020 showed: Mild multilevel degenerative disc disease. Normal alignment. No change. Liver transplant clinic recommended against the use of Baclofen ( discontinued ) Pt was seen by [facility], and I recommended to continue Lidoderm patch. Tramadol, PRN pt not a good candidate for Tylenol, NSAIDS. Last seen by [facility] 07/13/2023, They mentioned he had 80% improvement with injections and to return PRN Assessment & Plan (09/02/2023 9:46 AM EDT): Patient participated in group activities today Urine toxicology and pill count as expected Followup in one month for next session Assessment & Plan (06/16/2023 9:37 AM EST): Pt with c/o low back pain Plain films 09/2020 showed: Mild multilevel degenerative disc disease. Normal alignment. No change. Liver transplant clinic recommended against the use of Baclofen ( discontinued ) Pt was seen by [facility], and I recommended to continue Lidoderm patch. Tramadol, PRN pt not a good candidate for Tylenol, NSAIDS. Last seen by [facility] 05/11/2023, has an upcoming appointment with them 06/29/2023 Assessment & Plan (02/12/2023 11:56 AM EDT): Pt with c/o low back pain Plain films 09/2020 showed: Mild multilevel degenerative disc disease. Normal alignment. No change. Liver transplant clinic recommended against the use of Baclofen ( discontinued ) Pt was seen by [facility], and I recommended to continue Lidoderm patch. Tramadol, PRN pt not a good candidate for Tylenol, NSAIDS. Assessment & Plan (07/31/2022 9:56 AM EDT): Pt with c/o low back pain, on exam evidence of muscle spasm. plain films 09/2020 showed: Mild multilevel degenerative disc disease. Normal alignment. No change. Liver transplant clinic recommended against the use of Baclofen ( discontinued ) Pt was referred [facility], and I recommended to continue Lidoderm patch. Tramadol, PRN pt not a good candidate for Tylenol, NSAIDS, Narcotics, last note from [facility] on record from 02/2021 I have added a low dose Tizanidine 2 mg po q 8 hrs prn Assessment & Plan (07/03/2022 1:10 PM EDT): Pt with c/o of persistent low back pain, plain films 09/2020 showed: Mild multilevel degenerative disc disease. Normal alignment. No change. Liver transplant clinic recommended against the use of Baclofen ( discontinued ) Pt was referred [facility], and I recommended to continue Lidoderm patch. Tramadol, PRN pt not a good candidate for Tylenol, NSAIDS, Narcotics or muscle relaxants, last note from [facility] on record from 02/2021. Pt today tells me he was refer to the Pain Clinic at [facility] he has an appointment for 08/03/2022. He feels good otherwise and has no other concerns Assessment & Plan (04/22/2022 8:25 AM EST): Pt with c/o of persistent low back pain, on exam evidence of muscle spasm. plain films 09/2020 showed: Mild multilevel degenerative disc disease. Normal alignment. No change. Liver transplant clinic recommended against the use of Baclofen ( discontinued ) Pt was referred [facility], and I recommended to continue Lidoderm patch. Tramadol, PRN pt not a good candidate for Tylenol, NSAIDS, Narcotics or muscle relaxants, last note from [facility] on record from 02/2021 Essential hypertension 04/21/2022 Assessment & Plan (11/27/2022 2:12 PM EDT): Patient with Hypertension BP controlled. Most recent electrolytes, Bun and Creatinine done on: 09/19/2022 were within normal limits. Plan: DC Losartan patient advised to adhere to a low sodium diet, encouraged about medication compliance, counseled about weight loss. Assessment & Plan (10/07/2022 11:51 AM EDT): Patient with Hypertension BP controlled. Pt tells me that his BP at home has been controlled for the most part, his BP goes up occassionally but usually associated with a stressor Most recent electrolytes, Bun and Creatinine done on: 09/19/2022 were within normal limits. Plan Continue Losartan 25 mg po daily patient advised to adhere to a low sodium diet, encouraged about medication compliance, counseled about weight loss. Assessment & Plan (04/22/2022 8:19 AM EST): Patient with Hypertension BP controlled Most recent electrolytes, Bun and Creatinine done on: 10/24/2021 were within normal limits. Plan Continue Losartan 25 mg po daily patient advised to adhere to a low sodium diet, encouraged about medication compliance, counseled about weight loss. Chronic liver disease in pat ient with history of hepatocellular carcinoma 04/21/2022 Assessment & Plan (06/16/2023 9:26 AM EST): Pathology of his liver (explant) showed multifocal hepatocellular carcinoma moderately differentiated resection margins were negative for carcinoma Assessment & Plan (04/22/2022 8:27 AM EST): Pathology of his liver (explant) showed multifocal hepatocellular carcinoma moderately differentiated resection margins were negative for carcinoma Pleural effusion 04/21/2022 Immunosuppression 08/11/2019 Assessment & Plan (06/16/2023 9:44 AM EST): S/p liver transplant On Tacrolimus as per Liver clinic, last level 4.9 normal 05/21/2023 Home meds: tacrolimus 3 mg daily Per chart review, his tacrolimus dosing was decreased to 3 mg BID on 11/28/20. Assessment & Plan (10/07/2022 10:27 AM EDT): S/p liver transplant On Tacrolimus as per Liver clinic Abscess of lower leg 03/02/2019 Bacteremia 02/25/2019 Bacterial peritonitis 02/25/2019 Diabetes mellitus 02/25/2019 Edema of lower extremity 02/25/2019 Hyponatremia 02/25/2019 Type 2 diabetes mellitus without complication Assessment & Plan (04/05/2024 9:13 AM EST): Pt is here for a f/u regarding his DM Patient is on a regimen of : Lantus 24 units at hs and Novolog flex pen using sliding scale TID (BG 150-200mg/dL: 10 units, 201-250 : 12 units, 251-300: 14 units, 301-350: 16 units, 351-400 18 units, >400 20 units He was discharged from [facility] diabetes clinic due to non compliance. He isunder the care of [facility] given that he is a liver transplant patient, last seen 2024. 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 He isunder the care of [facility] Endocrinology given that he is a liver transplant patient, last seen 04/21/2023. 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 He isunder the care of [facility] Endocrinology given that he is a liver transplant patient, last seen 04/21/2023. 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 He is supposed to be under the care of [facility] Endocrinology given that he is a liver transplant patient, last seen 08/01/2021. He had an appointment scheduled in August but he no showed. 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 He is supposed to be under the care of [facility] Endocrinology given that he is a liver transplant patient, last seen 08/01/2021. He had an appointment scheduled in August but he no showed. Today he tells me he will stay at [facility] Hgb A1c 09/02/2021 was 6.5 Eye exam ordered previous visit Microalbumin 11/01/2020 was 43 Foot check risk of zero Pt advised to: adhere to diabetic diet Previous visit pt was referred to Courier Delivery Driver and [place] Plan: continue current regimen check your blood sugars regularly check your feet on a daily basis f/u with me in 4 months Assessment & Plan (09/02/2022 11:00 AM EDT): Pt is here for a f/u regarding his DM Patient is on a regimen of : Lantus 20 units at hs, and Novolog flex pen using sliding scale TID (BG 150-200mg/dL: 10 units, 201-250 : 12 units, 251-300: 14 units, 301-350: 16 units, 351-400 18 units, >400 20 units He was discharged from [facility] diabetes clinic due to non compliance He is now under the care of [facility] Endocrinology given that he is a liver transplant patient, last seen 08/01/2021 Hgb A1c 09/02/2021 was 6.5 Eye exam ordered previous visit Microalbumin 11/01/2020 was 43 Foot check risk of zero Pt advised to: adhere to diabetic diet Previous visit pt was referred to Courier Delivery Driver and [place] Plan: continue current regimen check your blood sugars regularly check your feet on a daily basis f/u with me in 3 months Assessment & Plan (04/22/2022 10:25 AM EST): Pt is here for a f/u regarding his DM Patient is on a regimen of : Lantus 20 units at hs, and Novolog flex pen using sliding scale TID (BG 150-200mg/dL: 10 units, 201-250 : 12 units, 251-300: 14 units, 301-350: 16 units, 351-400 18 units, >400 20 units He was discharged from [facility] diabetes clinic due to non compliance He is now under the care of [facility] Endocrinology given that he is a liver transplant patient, last seen 08/01/2021 Hgb A1c 04/22/2021 was 6.2 Eye exam ordered previous visit Microalbumin 11/01/2020 was 43 Foot check risk of zero Pt advised to: adhere to diabetic diet Previous visit pt was referred to Courier Delivery Driver and [place] Plan: continue current regimen check your blood sugars regularly check your feet on a daily basis f/u with me in 3 months Gynecomastia 03/02/2018 Anemia 09/15/2017 S/P liver transplant 08/18/2017 Overview (04/21/2022): Last Assessment & Plan: Patient is s/p donor liver transplant (08/09/2019, CMV (D+/R-), EBV (D+/R+)). 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 Per chart review, the patient's pleural effusions did not recur and he remains off diuretics. Immunosuppression addressed in its own section. Patient is not on prophylactic medication at this time. 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 Patient underwent empiric treatment for presumed rejection with solumedrol and workup included liver ultrasound, blood cultures, CXR, and liver biopsy. He has positive CMV status and was treated by a course of valganciclovir for 2-3 weeks and had undetectable CMV level. Was also Incidentally found to be Covid positive but was relatively asymptomatic. He Underwent liver biopsy 05/04/2020 Final diagnosis: Focal mild portal mixed inflamation with mild bile duct injury and focal endothelitis, suggestive of mild acute cellular rejection (WALLER 3 of 9 ) He will continue to f/u with transplant hepatology, They recommended to stay on Prograf 3 mg BID, He is OFF Prednisone, No longer on Cellcept no longer on Bactrim off Valcyte Pulmonary nodule 12/02/2016 Assessment & Plan (04/22/2022 8:28 AM EST): Pt with a Hx. several small pulmonary nodules. In the past was evaluated by a thoracic surgeon ( Dr Hernandez.)His last Chest CT dates from January 29, 2010 showing a stable RT middle lobe and bilateral lower lobe pulmonary nodules when compared to February [address] According to the radiologist who read his last CT there was no need to continue to do more CT'S Alcoholic cirrhosis 06/17/2016 Assessment & Plan (06/16/2023 9:29 AM EST): S/p liver transplant Assessment & Plan (10/07/2022 10:26 AM EDT): S/p liver transplant Tubular adenoma 06/05/2015 Assessment & Plan (04/22/2022 8:29 AM EST): Colonoscopy:04/25/2014 Dr Diaz showed a tubular adenoma Repeat 06/28/2021 showed polyps Smoker 06/25/2012 Gastroesophageal reflux disease 11/18/2011 Pure hypercholesterolemia 10/01/2011 Assessment & Plan (04/22/2022 8:23 AM EST): Patient with elevated lipids. Most recent lipid profile from: 01/10/2022 shows a total cholesterol of: 180 triglycerides of: 89 HDL of: 40 and LDL of: 121 Currently not on a regimen given Hx of persistent elevation of LFTs advised to try to adhere to a low cholesterol diet, counseled and educated about diet and exercise, Patient encouraged to come up with a personal goal for weight loss. Depression, recurrent 04/20/1960 Encounters Date Type Department Care Team Description 05/17/2024 10:00 AM EST Office Visit [facility] [address] [place] [address] Lorraine Polk Dental plaque (Primary Dx); Dental calculus; Partial edentulism, unspecified edentulism class 05/13/[address] [facility] [address] [place] [address] Agustin Marrero MD 05/11/[address] [facility] [address] [facility] [facility] [place] [address] Agustin Marrero MD Medication Question 05/05/[address] [facility] [address] [place] [address] Agustin Marrero MD 05/03/[address] [facility] [address] [place] [address] Agustin Marrero MD Primary insomnia 05/03/[address] [facility] [address] [place] [address] Agustin Marrero MD Chronic midline low back pain without sciatica 04/25/[address] [facility] [address] [place] [address] Natasha Wall MD Chronic midline low back pain without sciatica 04/14/[address] [facility] [address] [facility] [place] [address] Agustin Marrero MD Med Refill 04/05/2024 9:15 AM EST Office Visit [facility] [address] [facility] [place] [address] Agustin Marrero MD Type 2 diabetes mellitus without complication, with long-term current use of insulin (CMS/[facility]) (Primary Dx); Other male erectile dysfunction; Elevated serum creatinine; Chronic midline low back pain without sciatica; Primary insomnia 04/05/[address] [facility] [address] [place] [address] Agustin Marrero MD Type 2 diabetes mellitus without complications (CMS/HCC) 04/05/2024 Travel 03/30/[address] [facility] [address] [place] [address] Agustin Marrero MD Chart Prep 03/29/2024 9:45 AM EST Office Visit [facility] [address] [place] [address] Cyndi Sandhu, EQUITIES TRADER Chronic midline low back pain without sciatica (Primary Dx); Long-term current use of opiate analgesic 03/29/2024 Travel 03/24/[address] [facility] [address] [place] [address] Agustin Marrero MD Chronic midline low back pain without sciatica 03/07/2024 Orders Only GENERIC EXTERNAL DATA DEPARTMENT Provider, Generic External Data 03/01/2024 Refill [facility] [address] [place] [address] Shwetha Collado RN Chronic midline low back pain without sciatica 03/01/[address] [facility] [address] [facility] [place] [address] Agustin Marrero MD Med Refill 03/01/[address] [facility] [address] [place] [address] Agustin Marrero MD 03/01/[address] [facility] [address] [place] [address] Agustin Marrero MD Med Refill 02/29/[address] [facility] [address] [facility] [place] [address] Agustin Marrero MD Chronic midline low back pain without sciatica; Primary insomnia from Last 3 Months Immunizations Name Administration Dates Next Due Hep A, Adult 07/14/2017,12/02/2016 Hep B, Dialysis 07/14/2017,06/01/2017,01/14/2017 Hep B, adult 12/02/2016 Influenza injectable quadriv alent IIV4 with preservative 01/07/2018 Influenza injectable quadriv alent preservative free 02/12/2023,05/06/2022,01/17/2021,2019,06/16/2019,02/20/2019,06/17/2016 Influenza, IIV3, injectable 01/19/2007 Influenza, seasonal, injecta ble, preservative free 01/25/2024 MMR 11/10/1997 Moderna Covid-19 Vaccine 12+ 09/12/2020,09/13/19 21 Pneumococcal Conjugate PCV 20 09/11/2022 TD (adult), 2 Lf tetanus tox oid, preservative free, adsorbed 10/26/2006 Tdap 09/15/2013 Zoster, Recombinant 09/11/2022,07/09/2022 Social History Tobacco Use Types Packs/Day Years Used Date Smoking Tobacco: Former Cigarettes Passive Smoke Exposure: Past Smokeless Tobacco: Never Tobacco Cessation:Counseling Given: Not Answered Alcohol Use Standard Drinks/Week Comments Never 0 [...] Orientation Straight 02/17/2022 10 :14 AM EDT Last Filed Vital Signs Vital Sign Reading Time Taken Comments Blood Pressure 132/74 05/17/2024 10:01 AM EST Pulse 72 04/05/2024 9:06 AM EST Temperature 36.2 ??C (97.1 ??F) 04/05/2024 9:06 AM ES T Respiratory Rate 20 04/05/2024 9:06 AM EST Oxygen Saturation 98% 04/05/2024 9:06 AM EST Inhaled Oxygen Concentration - - Weight 92.5 kg (204 lb) 04/05/2024 9:06 AM EST Height 170.2 cm (5' 7 ) 04/05/2024 9:06 AM EST Body Mass Index 31.95 04/05/2024 9:06 AM EST Plan of Treatment Upcoming Encounters Date Type Department Care Team (Late st Contact Info) Description 05/31/2024 9:45 AM EST Office Visit [facility] [address] [place] [address] 07/05/2024 10:00 AM EDT Office Visit [facility] [address] [place] [address] Agustin Marrero MD [address] [place] [address] 11/16/2024 10:00 AM EDT Office Visit [facility] [address] [place], [place] [phone] Paco, Catherine [address] [place] [address] Health Maintenance Due Date Last Done Comments CT Colonography 1964 FIT DNA/Cologuard 1964 FIT 1964 FOBT 1964 HIV Screening 1965 Sigmoidoscopy 1964 Diabetes: Foot Exam 01/03/1974 Hepatitis C Screening 01/03/1982 DTaP/Tdap/Td Vaccines (2 - Td or Tdap) 09/16/2023 09/15/2013, 10/26/2006 COVID-19 Vaccine ( season) 2023 05/06/2022, 11/25/2021, 03/25/2021, Additional history exists RSV Patients and Patients Aged 60 years or older (1 - Risk 60-74 years 1-dose series) 2024 SDOH Screening 06/16/2024 06/16/2023 Dental X-Ray: Full Mouth 06/19/2024 06/18/2021 Colonoscopy 06/28/2024 06/28/2021 Colorectal Cancer Screening 06/28/2024 Diabetes: Hemoglobin A1C 07/04/2024 024, 12/03/2023, 06/16/2023, Additional history exists Eye Exam 09/22/2024 09/22/2022, 0608/2022, 09/22/2022, Additional history exists Dental X-Ray: Bitewings 10/13/2024 10/13/2023, 05/15 Dental Oral Exam 11/15/2024 05/17/2024, , 05/15/2022 Dental Prophylaxis 11/15/2024 05/17/2024, 0 10/13/2023, 01/14/2023, Additional history exists Depression Screening 12/02/2024 12/03/2023, 12/03/19 24 Alcohol/Substance Use Screening 04/05/2025 04/05/2024 Diabetes: Urine Protein Screening 04/06/2025 04/06/2024, 01/10/2022, 05/17/2021, Additional history exists Lipid Panel 04/06/2025 04/06/2024, 12/20, 11/01/2020 Tobacco Screening 05/17/2025 05/17/2024 Hepatitis A Vaccines Completed 07/14/2017, 12/03/19 Hepatitis B Vaccines Completed 07/14/2017, 06/01/2017, 01/14/2017, Additional history exists Pneumococcal Vaccine: 50+ Years Completed 09/11/2022 Pneumococcal Vaccine: Pediatrics (0 to 5 Years) and At-Risk Patients (6 to 49) Years) Completed 09/11/2022 Zoster Vaccines Completed 09/11/2022, 07/09/2022 Influenza Vaccine Completed 01/25/2024, , 05/06/2022, Additional history exists HIB Vaccines Aged Out No longer eligi ble based on patient's age to complete this topic HPV Vaccines Aged Out No longer eligi ble based on patient's age to complete this topic IPV Vaccines Aged Out No longer eligi ble based on patient's age to complete this topic Meningococcal Vaccine Aged Out No maritza erickson eligible based on patient's age to complete this topic RSV under 20 months Aged Out No longe r eligible based on patient's age to complete this topic Rotavirus Vaccines Aged Out No longer eligible based on patient's age to complete this topic Procedures Procedure Name Priority Date/Time Associated Diagnosis Comments PERIODIC ORAL EVALUATION - ESTABLISHED PATIENT Routine 05/17/2024 10:00 AM EST TOPICAL APPLICATION OF FLUORIDE VARNISH Routine 05/17/2024 10:00 AM EST ORAL HYGIENE INSTRUCTIONS Routine 05/17/2024 10:00 AM EST Dental plaque Dental calculus ADJUNCTIVE GENERAL SERVICES - PROFESSIONAL VISITS - CASE PRESENTATION, SUBSEQUENT TO DETAILED AND EXTENSIVE TREATMENT PLANNING Routine 05/17/2024 10:00 AM EST Full PROPHYLAXIS - ADULT Routine 05/17/2024 10:00 AM EST Dental plaque Dental calculus PSA, SCREEN Routine 04/06/2024 8:10 AM EST Other male erectile dysfunction COMPREHENSIVE METABOLIC PANEL Routine 04/06/2024 8:10 AM EST Type 2 diabetes mellitus without complication, with long-term current use of insulin ([facility]/HCC) LIPID PANEL, STANDARD Routine 04/06/2024 8:10 AM EST Type 2 diabetes mellitus without complication, with long-term current use of insulin ([facility]) ALBUMIN, RANDOM URINE W/CREATININE Routine 04/06/2024 8:10 AM EST Type 2 diabetes mellitus without complication, with long-term current use of insulin ([facility]) POCT GLYCATED HEMOGLOBIN, TOTAL Routine 04/05/2024 9:12 AM EST Type 2 diabetes mellitus without complication, with long-term current use of insulin ([facility]) POCT ZOË-14 URINE DRUG SCREEN Routine 03/29/2024 1:42 PM EST Chronic midline low back pain without sciatica GLUCOSE, WHOLE BLOOD Routine 03/07/2024 6:15 AM EST BITEWINGS - 4 RADIOGRAPHIC IMAGES Routine 10/13/2023 11:00 AM EDT HM COLONOSCOPY Routine 06/28/2021 from Last 3 Months or Most Recently Relevant to Health Maintenance Results * PSA, Screen (04/06/2024 8:10 AM EST) PSA, Total 0.19 <0.05 - 4.0 ng/mL [facility] Comment:PSA methodology: Joe Lopes i ChemiluminescentMicroparticle Immunoassay (CMIA) Blood Venous blood specimen / Unknown 04/06/2024 8:10 AM EST 04/06/2024 11:51 AM EST Agustin Connelly MD LAB BLOOD ORDERABLES Final Result Performing Organization Address [facility] Co de Phone Number [facility] [address] [place] [phone] * (ABNORMAL) Albumin, Random Urine W/Creatinine (04/06/2024 8:10 AM EST) Creatinine, Urine 216.22 mg/dL [facility] Microalbumin Urine 68.0 mg/L [facility] Microalbum Creatinine Ratio Ur 31.4(H) <30 ug/mg cr [facility] Comment:Albumin/Creatinine R atio Reference Ranges: Normal: < 30 ug/mg creatinine Microalbuminuria: 30 - 300 ug/mg creatinineClinical Albuminuria: > 300 ug/mg creatinine Urine (Urine, Random) 04/06/2024 8:10 AM EST 04/06/2024 11:40 AM EST Agustin Connelly MD LAB URINE ORDERABLES Final Result Performing Organization Address [facility] Co de Phone Number [facility] [address] [place] [phone] * (ABNORMAL) Lipid Panel, Standard (04/06/2024 8:10 AM EST) Triglycerides 109 <150 mg/dL [facility] Comment:Desirable Triglyceri de: less than 150 mg/dLBorderline High Triglyceride 150-199 mg/dLHigh Triglyceride: 200-499 mg/dLVery High Triglyceride: greater than or equal to 5OO mg/dL Cholesterol 177 <200 mg/dL [facility] Comment:Desirable Cholestero l: less than 200 mg/dLBorderline High Cholesterol: 200-239 mg/dLHigh Cholesterol: greater than 239 mg/dL LDL Cholesterol Calculated 115(H) <100 mg/dL [facility] Comment:Desirable LDL: less than 100 mg/dLNear Optimal/Above Optimal LDL: 110- 129 mg/dLBorderline High LDL: 130-159 mg/dLHigh LDL: 160-189 mg/dLVery High LDL: greater than or equal to 190 mg/dL HDL Cholesterol 41 >40 mg/dL [facility] Comment:Desirable HDL: great er than 40 mg/dL Note: This HDL assay may give artificially low results in patients with liver disease. Blood Venous blood specimen / Unknown 04/06/2024 8:10 AM EST 04/06/2024 11:51 AM EST us Agustin Connelly MD LAB BLOOD ORDERABLES Final Result [facility] [address] [place], [place] [phone] * (ABNORMAL) Comprehensive Metabolic Panel (04/06/2024 8:10 AM EST) Sodium 137 135 - 145 mmol/L [facility] Potassium 4.5 3.3 - 5.1 mmol/L [facility] Chloride 106 96 - 108 mmol/L [facility] Carbon Dioxide 27 22 - 29 mmol/L [facility] Anion Gap 9(L) 12 - 20 [facility] Urea Nitrogen (BUN) 16 9 - 16 mg/dL [facility] Creatinine, Serum 1.02 0.5 - 1.4 mg/dL [facility] Estimated Glomerular Filt Rate >60 [facility] Comment:Chronic Kidney Disea se: Estimated GFR < 60 mL/min/[id number] Kidney Disease: Estimated GFR < 15 mL/min/1.73m2 Glucose 160(H) 60 - 115 mg/dL [facility] Calcium 9.0 8.4 - 10.2 mg/dL [facility] Bilirubin, Total 0.6 0.0 - 1.0 mg/dL [facility] Aspartate Amino Transferase 36 5 - 37 U/L [facility] Alanine Aminotransferase 48(H) 0 - 40 U/L [facility] Total Protein 7.1 6.5 - 8.0 g/dL [facility] Albumin Level 4.3 3.5 - 5.0 g/dL [facility] Alkaline Phosphatase 112 39 - 117 U/L [facility] Blood Venous blood specimen / Unknown 04/06/2024 8:10 AM EST 04/06/2024 11:51 AM EST Agustin Connelly MD LAB BLOOD ORDERABLES Final Result Performing Organization Address [facility]/ZIP Co de Phone Number [facility] [address] [place] [phone] * (ABNORMAL) POCT HGB A1C (04/05/2024 9:12 AM EST) Hemoglobin A1C 7.0(A) 4.0 - 6.0 % QC Media Lot # [id number] Lot# Expiration Date [id number] Blood 04/05/2024 9:12 AM EST Agustin Connelly MD POINT OF CARE TEST EN TER/EDIT ORDERABLES Final Result * POCT ZOË-14 Urine Drug Screen (03/29/2024 1:42 PM EST) Urine Urine specimen obtained by clean catch procedure / Unknown 03/29/2024 1:42 PM EST Narrative Shwetha Collado RN - 03/29/2024 1:42 PM EST .UTOX cup Lot#[id number] Exp. 01/12/26 Internal Pass Control Cyndi Sandhu EQUITIES TRADER POINT OF CARE TEST ENTER/EDIT ORDERABLES Final Result * (ABNORMAL) Glucose, Whole Blood (03/07/2024 6:15 AM EST) Glucose, Whole Blood 145(H) 60 - 115 mg/dL [facility] Comment:METER #: [id number] 03/07/2024 6:15 AM EST 03/07/2024 6:22 AM EST Generic External Data Provider LAB BLOOD ORDERAB LES Final Result [facility] [address] [place] [phone] [phone] * Colonoscopy (06/28/2021) Colonoscopy Normal Normal 06/28/2021 Shanel Chen - 06/28/2021 9:58 AM EST Recommended 3 year follow up per GI notes ( [facility] [place] us Historical Provider MD HEALTH MAINTENANCE Edited Result - Final from Last 3 Months or Most Recently Relevant to Health Maintenance Insurance [facility] - [facility] Care Teams Carbon Dioxide Operator Relationship Specialty Start Date End Date Agustin Marrero MD [address] [place] [address] MARILYN Newman [id number] PCP - General Internal Medicine 01/25/14 [facility] 06/13/16
--- OUTSIDE RECORDS SUMMARY | 2024-05-20 07:34 | XMS_ITS | Encounter Summary ---
Author Organization [employer] Address [address] [place] [address] [address] [place] [address] Care Team Providers Care Associate Professor Of Theology Name Role Phone Agustin Marrero MD Primary Care Provide r Reason for Visit * Reason Onset Date Comments Med Refill 03/01/2024 Encounter Details Date Type Department Care Team ([facility] st Contact Info) Description 03/01/2024 Telephone [facility] [address] [place], [place] [phone] Agustin Marrero MD [address] [place] [address] Med Refill Social History Tobacco Use Types [...] Encounter - Patti White LPN - 03/01/2024 2:24 PM EST Received fax from [facility] requesting script clarification need directions. * Telephone Encounter - Manjeet Mclaughlin - 03/01/2024 2:21 PM EST TC from pt requesting medication refill. Medications needing refill : traMADol (Ultram) 50 MG table To be sent to: [facility]/pharmacy #[id number] documented in this encounter Plan of Treatment Upcoming Encounters Date Type Department Care Team (Late st Contact Info) Description 05/31/2024 9:45 AM EST Office Visit [facility] [address] [place] [phone] 07/05/2024 10:00 AM EDT Office Visit [facility] [address] [place] [phone] Agustin Marrero MD [address] [place] [phone] 11/16/2024 10:00 AM EDT Office Visit [facility] [address] [place] [address] Catherine Antonio [address] [place] [address] documented as of this encounter Visit Diagnoses Not on filedocumented in this encounter Additional Health Concerns Assessment Noted Time PHQ-9 Depression Total Score: 0 12/03/19 10:31 AM EDT documented as of this encounter Care Teams Associate Professor Of Theology Relationship Specialty Start Date End Date Agustin Marrero MD [address] [place] [address] PCP - General Internal Medicine 01/25/14 [facility] 06/13/16 documented as of this encounter
--- OUTSIDE RECORDS SUMMARY | 2024-05-20 07:34 | XMS_ITS | Encounter Summary ---
Author Organization [facility] Address [address] [place] [address] Care Team Providers Care Waste Machine Offbearer Name Role Phone Agustin Mix Primary Care Provider + Encounter Details Date Type Department Care Team (Late st Contact Info) Description 01/13/2020 Orders Only [facility] 2 Rad ACT 1 [address] [place] [address] Pawel Sanchez MD [address] [place] [address] Social History Tobacco Use Types Packs/Day Years [...] Info) Description 08/01/2024 11:30 AM EDT Follow-Up [facility] Liver Transplant Services [address] [place], [place] [phone] Dylan Phelps MD [address] [place] [address] documented as of this encounter Visit Diagnoses Not on filedocumented in this encounter Additional Health Concerns Infection Onset Date Last Indicated Resolved Time COVID-19 - Suspected infection 03/05/2020 03/17/2020 03/17/2020 7:55 PM EST COVID-19 - Confirmed infection 05/01/2020 05/07/2020 06/01/2020 5:06 PM EST COVID-19 - Suspected infection 05/10/2020 05/10/2020 05/24/2020 10:34 PM EST documented as of this encounter Care Teams Waste Machine Offbearer Relationship Specialty Start Date End Date Agustin Mix [address] [place] [address] PCP - General Internal Medicine 04/15/17 documented as of this encounter
--- OUTSIDE RECORDS SUMMARY | 2024-05-20 07:34 | XMS_ITS | Encounter Summary ---
Author Organization [facility] Address [address] [place] [address] Care Team Providers Care Network Account Manager Name Role Phone Agustin Mix Primary Care Provider + Reason for Visit * Reason Onset Date Comments Results 04/26/2024 Encounter Details Date Type Department Care Team (Late st Contact Info) Description 04/26/2024 Abstract [facility] Transplant Department [address] [place] [address] Dylan Phelps MD [address] [place] [address] Social History Tobacco Use Types Packs/Day Years [...] Info) Description 08/01/2024 11:30 AM EDT Follow-Up [facility] Liver Transplant Services [address] [place] [address] Dylan Phelps MD [address] [place] [address] documented as of this encounter Procedures * Due to [facility] law, this organization might not be sharing negative HIV tests. Procedure Name Priority Date/Time Associated Diagnosis Comments LIVER POST EXTERNAL PANEL Routine 04/25/2024 7:13 AM EST documented in this encounter Results * Due to [place] [employer] law, this organization might not be sharing negative HIV tests. * LIVER POST EXTERNAL PANEL (04/25/2024 7:13 AM EST) Sodium 139 mmol/L [facility] Potassium 4.5 [facility] Chloride 110 [facility] Carbon Dioxide 23 [facility] Glucose 155 [facility] BUN 18 mg/dL [facility] Creatinine 1.16 mg/dL [facility] Calcium 9.6 mg/dL [facility] Total Protein 7.1 g/dL [facility] Albumin 4.4 g/dL [facility] Bilirubin, Total 0.8 mg/dL [facility] Alkaline Phosphatase 113 U/L [facility] AST 37 U/L [facility] ALT 53 U/L [facility] Magnesium 1.70 mg/dL [facility] WBC 5.2 10*3/uL [facility] Hgb 14.1 [facility] Hematocrit 40.6 % [facility] Platelets 127 10*3/uL [facility] 04/25/2024 7:13 AM EST us Dylan Phelps MD LAB BLOOD ORDERABLES Final Re sult [facility] [address] [place] [address] documented in this encounter Visit Diagnoses Not on filedocumented in this encounter Care Teams Network Account Manager Relationship Specialty Start Date End Date Agustin Mix [address] [place] [address] PCP - General Internal Medicine 04/15/17 documented as of this encounter
--- OUTSIDE RECORDS SUMMARY | 2024-05-20 07:34 | XMS_ITS | Encounter Summary ---
Author Organization [facility] Address [address] [place] [address] Care Team Providers Care Aoc Operations Intelligence Officer Name Role Phone Agustin Mix Primary Care Provider + Encounter Details Date Type Department Care Team (Late st Contact Info) Description 06/28/2020 Telephone [facility] Central Scheduling Department [address] [place] [address] Telephone Intake, Staff Social History Tobacco Use Types Packs/Day Years [...] encounter Miscellaneous Notes * Telephone Encounter - Eric Hawkins - 06/28/2020 2:56 PM EST PT of Dr Lenin Whiting called from PT's PCP office. PT had an x-ray done at. The imaging was faxed over for Dr Phelps to review. They are questioning a surgical clip or intraductal calculus. Johanne is requesting a call back to discuss this matter and can be reached at phone number [phone]. Thank you documented in this encounter Plan of Treatment Upcoming Encounters Date Type Department Care Team (Late st Contact Info) Description 08/01/2024 11:30 AM EDT Follow-Up [facility] Liver Transplant Services [address] [place] [address] [phone] Dylan Phelps MD [address] [place], [place] [phone] documented as of this encounter Visit Diagnoses Not on filedocumented in this encounter Care Teams Aoc Operations Intelligence Officer Relationship Specialty Start Date End Date Agustin Mix [address] [place] [address] PCP - General Internal Medicine 04/15/17 documented as of this encounter
--- OUTSIDE RECORDS SUMMARY | 2024-05-20 07:34 | XMS_ITS | Encounter Summary ---
Author Organization [facility] Address [address] [place] [address] 7t [place] [address] Care Team Providers Care Level Vial Curvature Gauger Name Role Phone Agustin Marrero MD Primary Care Provide r Encounter Details Date Type Department Care Team (Latest Contact Info) Description 09/06/2018 Abstract [facility] CONVERSIONS Dental, Provider, DDS Social History [...] Description 05/31/2024 9:45 AM EST Office Visit [facility] MEDICINE [address] [place] [address] 07/05/2024 10:00 AM EDT Office Visit [facility] MEDICINE [address] [place] [address] Agustin Marrero MD [address] [place] [address] 11/16/2024 10:00 AM EDT Office Visit [facility] ADULT DENTAL [address] [place] [address] Catherine Antonio [address] [place] [address] documented as of this encounter Visit Diagnoses Not on filedocumented in this encounter Care Teams Level Vial Curvature Gauger Relationship Specialty Start Date End Date Agustin Marrero MD [address] [place] [address] PCP - General Internal Medicine 01/25/14 [facility] 06/13/16 documented as of this encounter
--- OUTSIDE RECORDS SUMMARY | 2024-05-20 07:34 | XMS_ITS | Encounter Summary ---
Author Organization [facility] Address [address] [place] [address] 7t [place] [address] Care Team Providers Care Tipple Oiler Name Role Phone Agustin Marrero MD Primary Care Provide r Reason for Visit * Reason Comments Med Refill Encounter Details Date Type Department Care Team (Late st Contact Info) Description 09/04/2022 Refill [facility] MEDICINE [address] [place], [place] [phone] Agustin Marrero MD [address] [place] [address] Social History Tobacco Use Types Packs/Day Years Used Date Smoking Tobacco: Never Passive Smoke Exposure: Never Smokeless Tobacco: Never [...] suspected to have Coronavirus/COVID-19? No / Unsure 09/02/2022 10:16 AM EDT documented as of this encounter Plan of Treatment Upcoming Encounters Date Type Department Care Team (Late st Contact Info) Description 05/31/2024 9:45 AM EST Office Visit [facility] MEDICINE [address] [place] [address] 07/05/2024 10:00 AM EDT Office Visit [facility] MEDICINE [address] [place] [address] Agustin Marrero MD [address] [place] [address] 11/16/2024 10:00 AM EDT Office Visit [facility] ADULT DENTAL [address] [place] [address] Paco, Catherine [address] [place] [address] documented as of this encounter Visit Diagnoses Not on filedocumented in this encounter Care Teams Tipple Oiler Relationship Specialty Start Date End Date Agustin Marrero MD [address] [place] [address] PCP - General Internal Medicine 01/25/14 [facility] 06/13/16 documented as of this encounter
--- OUTSIDE RECORDS SUMMARY | 2024-05-20 07:34 | XMS_ITS | Encounter Summary ---
Author Organization [facility] Address [address] [place] [address] Care Team Providers Care Cinder Block Maker Name Role Phone Agustin Mix Primary Care Provider + Encounter Details Date Type Department Care Team (Late st Contact Info) Description 04/28/2024 Abstract [facility] Transplant Department [address] [place] [address] Dylan Phelps MD [address] [place] [address] Social History Tobacco Use Types Packs/Day Years [...] Info) Description 08/01/2024 11:30 AM EDT Follow-Up [facility] Liver Transplant Services [address] [place] [address] Dylan Phelps MD [address] [place] [address] documented as of this encounter Procedures * Due to [place] [employer] law, this organization might not be sharing negative HIV tests. Procedure Name Priority Date/Time Associated Diagnosis Comments AFP TUMOR MARKER, OUTSIDE LAB Routine 04/25/2024 7:13 AM EST documented in this encounter Results * Due to [place] state law, this organization might not be sharing negative HIV tests. * AFP Tumor Marker, Outside Lab (04/25/2024 7:13 AM EST) Alpha Fetoprotein, Tumor Marker 1.4 [facility] Blood Structure of peripheral vein / Unknown 04/25/2024 7:13 AM EST us Dylan Phelps MD LAB BLOOD ORDERABLES Final Re sult [facility] [address] [place] [address] documented in this encounter Visit Diagnoses Not on filedocumented in this encounter Care Teams Cinder Block Maker Relationship Specialty Start Date End Date Agustin Mix [address] [place] [address] PCP - General Internal Medicine 04/15/17 documented as of this encounter
--- OUTSIDE RECORDS SUMMARY | 2024-05-20 07:34 | XMS_ITS | Encounter Summary ---
Author Organization [facility] Address [address] [place] [address] 7[address] [place] [address] Care Team Providers Care Electrical Checkout Mechanic Name Role Phone Agustin Marrero MD Primary Care Provide r Encounter Details Date Type Department Care Team (Late st Contact Info) Description 08/28/2022 Abstract [facility] MEDICINE [address] [place] [address] Agustin Marrero MD [address] [place] [address] Social History Tobacco Use Types Packs/Day Years [...] Description 05/31/2024 9:45 AM EST Office Visit [facility]ICINE [address] [place] [address] [phone] 07/05/2024 10:00 AM EDT Office Visit [facility]ICINE [address] [place] [address] [phone] Agustin Marrero MD [address] [place] [phone] 11/16/2024 10:00 AM EDT Office Visit [facility]ULT [facility]ENTAL [facility] [place] [phone] Catherine Antonio 230 [facility] [place] [phone] documented as of this encounter Procedures Procedure Name Priority Date/Time Associated Diagnosis Comments COLONOSCOPY Routine 06/28/2021 documented in this encounter Results * Colonoscopy (06/28/2021) Colonoscopy Normal Normal 06/28/2021 Narrative Shanel Bo - 06/28/2021 9:58 AM EST Recommended 3 year follow up per GI notes ( [facility] Historical Provider [facility] Edited Result - Final documented in this encounter Visit Diagnoses Not on filedocumented in this encounter Care Teams Electrical Checkout Mechanic Relationship Specialty Start Date End Date Agustin Marrero MD 230 [facility] [place] [phone] PCP - General Internal Medicine 01/25/14 [facility] 06/13/16 documented as of this encounter
--- OUTSIDE RECORDS SUMMARY | 2024-05-20 07:35 | XMS_ITS | Encounter Summary ---
Author Organization [facility] Address [address] [place] [address] Care Team Providers Care Insulation Manager Name Role Phone Agustin iMx Primary Care Provider + Encounter Details Date Type Department Care Team (Late st Contact Info) Description 04/02/2020 Orders Only [facility] Interventional Radiology [address] [place] [address] Kathy Bowling MD [address] [place] [address] Social History Tobacco Use Types Packs/Day Years [...] Info) Description 08/01/2024 11:30 AM EDT Follow-Up [facility] Liver Transplant Services [address] [place] [address] Dylan Phelps MD [address] [place] [address] documented as of this encounter Visit Diagnoses Not on filedocumented in this encounter Additional Health Concerns Infection Onset Date Last Indicated Resolved Time COVID-19 - Confirmed infection 05/01/2020 05/07/2020 06/01/2020 5:06 PM EST COVID-19 - Suspected infection 05/10/2020 05/10/2020 05/24/2020 10:34 PM EST documented as of this encounter Care Teams Insulation Manager Relationship Specialty Start Date End Date Agustin Mix [address] [place] [address] PCP - General Internal Medicine 04/15/17 documented as of this encounter
--- OUTSIDE RECORDS SUMMARY | 2024-05-20 07:35 | XMS_ITS | Encounter Summary ---
Author Organization [employer] Address [address] [place] [address] 7[address] [place] [address] Care Team Providers Care Hospital Corpsman Name Role Phone Agustin Marrero MD Primary Care Provide r Reason for Visit * Reason Onset Date Comments Nurse Triage 11/11/2022 Encounter Details Date Type Department Care Team ([facility] st Contact Info) Description 11/11/2022 Telephone [facility] [address] [place], [place] [phone] Agustin Marrero MD [address] [place] [address] Nurse Triage Social History Tobacco Use Types Packs/Day Years [...] suspected to have Coronavirus/COVID-19? No / Unsure 10/28/2022 9:48 AM EDT documented as of this encounter Miscellaneous Notes * Telephone Encounter - Alisa Nazario RN - 11/11/2022 11:24 AM EDT Triage call with grahn scalemaker [place] [id number] Pt reports brown colored urine for last 2 days. Pt denies pain, frequency, incontinence, bad odor, flank pain or fever. Pt reports , I drank two armenian malts Pt explains is dark brown soda. Pt denies blood in the urine. Pt requests to be seen by provider and will come to [facility] today hours given. Insurance is verified as active . Protocol Used: Urinary Symptoms (Adult) Protocol-Based Disposition: See in Office or Video Visit Today or Tomorrow Video visit not offered Positive Triage Question: * Patient wants to be seen * All higher-acuity triage questions were negative Care Advice Discussed: * Reasons To Call Back - Fever occurs - Pain or burning with urination - You become worse * Telephone Encounter - Jaja Kebede - 11/11/2022 10:56 AM EDT Symptom: Penis Symptoms Outcome: Schedule an urgent appointment (within 4 hours) or talk to a nurse or provider soon Reason: Getting worse, dark brown urine The caller accepted this outcome. Please contact pt at [phone] Lib[place] documented in this encounter Plan of Treatment Upcoming Encounters Date Type Department Care Team (Late st Contact Info) Description 05/31/2024 9:45 AM EST Office Visit [facility] [address] [place] [address] 07/05/2024 10:00 AM EDT Office Visit [facility] [address] [place] [address] Agustin Marrero MD [address] [place] [address] 11/16/2024 10:00 AM EDT Office Visit [facility] ADULT DENTAL [address] [place] [address] Paco, Catherine [address] [place] [address] documented as of this encounter Visit Diagnoses Not on filedocumented in this encounter Care Teams Hospital Corpsman Relationship Specialty Start Date End Date Agustin Marrero MD [address] [place] [address] PCP - General Internal Medicine 01/25/14 [facility] 06/13/16 documented as of this encounter
--- OUTSIDE RECORDS SUMMARY | 2024-05-20 07:35 | XMS_ITS | Encounter Summary ---
Author Organization [employer] Address [address] [place] [address] 7t [place] [address] Care Team Providers Care Rehabilitator Name Role Phone Agustin Marrero MD Primary Care Provide r Reason for Visit * Reason Onset Date Comments Med Refill 05/03/2024 Encounter Details Date Type Department Care Team ([facility] st Contact Info) Description 05/03/2024 Refill [facility] [address] [place], [place] [phone] Agustin Marrero MD [address] [place] [address] Primary insomnia Social History Tobacco Use Types [...] is your housing situation today? I have afy gonsalez 06/16/[address] you [...] encounter Miscellaneous Notes * Telephone Encounter - Horace Ulrich - 05/03/2024 3:55 PM EST TC from pt requesting medication refill. Medications needing refill : zolpidem (Ambien) 10 MG tablet To be sent to: [facility]/pharmacy #[id number] [place] [address] - [address] [place] [address] documented in this encounter Plan of Treatment Upcoming Encounters Date Type Department Care Team (Late st Contact Info) Description 05/31/2024 9:45 AM EST Office Visit [facility] MEDICINE [address] [place] [address] 07/05/2024 10:00 AM EDT Office Visit [facility] MEDICINE [address] [place] [address] Agustin Marrero MD [address] [place] [address] 11/16/2024 10:00 AM EDT Office Visit [facility] ADULT DENTAL [address] [place] [address] Catherine Antonio [address] [place] [address] documented as of this encounter Visit Diagnoses Diagnosis Primary insomnia Persistent disorder of initiating or maintaining sleep documented in this encounter Additional Health Concerns Assessment Noted Time PHQ-9 Depression Total Score: 0 12/03/19 24 10:31 AM EDT documented as of this encounter Care Teams Rehabilitator Relationship Specialty Start Date End Date Agustin Marrero MD [address] [place] [address] PCP - General Internal Medicine 01/25/14 [facility] 06/13/16 documented as of this encounter
--- OUTSIDE RECORDS SUMMARY | 2024-05-20 07:35 | XMS_ITS | Encounter Summary ---
Author Organization [facility] Address [address] [place] [address] 7t [place] [address] Care Team Providers Care Target Worker Name Role Phone Agustin Marrero MD Primary Care Provide r Reason for Visit * Reason Onset Date Comments Med Refill 12/15/2022 Encounter Details Date Type Department Care Team ([facility] st Contact Info) Description 12/15/2022 Telephone [facility] MEDICINE [address] [place], [place] [phone] Agustin Marrero MD [address] [place] [address] Med Refill Social History Tobacco Use Types [...] Telephone Encounter - Patti White LPN - 12/15/2022 3:56 PM EDT Medication pended to PCP. * Telephone Encounter - Lluvia Mendoza - 12/15/2022 3:40 PM EDT Tc from pt requesting medication refill on zolpidem (Ambien) 10 MG tablet documented in this encounter Plan of Treatment Upcoming Encounters Date Type Department Care Team (Late st Contact Info) Description 05/31/2024 9:45 AM EST Office Visit [facility] MEDICINE [address] [place] [address] 07/05/2024 10:00 AM EDT Office Visit [facility] MEDICINE [address] [place] [address] Agustin Marrero MD [address] [place] [address] 11/16/2024 10:00 AM EDT Office Visit [facility] ADULT DENTAL [address] [place] [address] Paco, Catherine [address] [place] [address] documented as of this encounter Visit Diagnoses Not on filedocumented in this encounter Care Teams Target Worker Relationship Specialty Start Date End Date Agustin Marrero MD [address] [place] [address] PCP - General Internal Medicine 01/25/14 [facility] 06/13/16 documented as of this encounter
--- OUTSIDE RECORDS SUMMARY | 2024-05-20 07:35 | XMS_ITS | Encounter Summary ---
Author Organization [employer] Address [address] [place] [address] 7t [place] [address] Care Team Providers Care Instructor Trainer Canine Service Name Role Phone Agustin Marrero MD Primary Care Provide r Reason for Visit * Reason Comments Med Refill Encounter Details Date Type Department Care Team ([facility] st Contact Info) Description 04/25/2024 Refill [facility] MEDICINE [address] [place] [address] Natasha Wall MD [address] [place] [address] Chronic midline low back pain without sciatica [...] Office Visit [facility] MEDICINE [address] [place] [address] 07/05/2024 10:00 AM EDT Office Visit [facility] MEDICINE [address] [place] [address] Agustin Marrero MD [address] [place] [address] 11/16/2024 10:00 AM EDT Office Visit [facility] ADULT DENTAL [address] [place] [address] Catherine Antonio [address] [place] [address] documented as of this encounter Visit Diagnoses Diagnosis Chronic midline low back pain without sciatica documented in this encounter Additional Health Concerns Assessment Noted Time PHQ-9 Depression Total Score: 0 12/03/19 24 10:31 AM EDT documented as of this encounter Care Teams Instructor Trainer Canine Service Relationship Specialty Start Date End Date Agustin Marrero MD [address] [place] [address] PCP - General Internal Medicine 01/25/14 [facility] 06/13/16 documented as of this encounter
--- OUTSIDE RECORDS SUMMARY | 2024-05-20 07:35 | XMS_ITS | Encounter Summary ---
Author Organization [employer] Address [address] [place] [address] 7t [place] [address] Care Team Providers Care Instrument And Control Technician Name Role Phone Agustin Marrero MD Primary Care Provide r Reason for Visit * Reason Onset Date Comments Med Refill 05/05/2024 Encounter Details Date Type Department Care Team ([facility] st Contact Info) Description 05/05/2024 Refill [facility] MEDICINE [address] [place], [place] [phone] Agustin Marrero MD [address] [place] [address] Social History Tobacco Use Types Packs/Day Years [...] encounter Miscellaneous Notes * Telephone Encounter - Alisia Hameed - 05/05/2024 9:54 AM EST TC from pt requesting medication refill. Medications needing refill : Multiple Vitamin (Daily-Stacy Multivitamin) tablet To be sent to: [facility]/pharmacy #[id number] [place] [address] - [address] [place] [address] documented in this encounter Plan of Treatment Upcoming Encounters Date Type Department Care Team (Late st Contact Info) Description 05/31/2024 9:45 AM EST Office Visit [facility] MEDICINE [address] [place] [address] 07/05/2024 10:00 AM EDT Office Visit [facility] MEDICINE [address] [place] [address] Agustin Marrero MD [address] [place] [address] 11/16/2024 10:00 AM EDT Office Visit [facility] ADULT DENTAL [address] [place] [address] Catherine Antonio [address] [place] [address] documented as of this encounter Visit Diagnoses Not on filedocumented in this encounter Additional Health Concerns Assessment Noted Time PHQ-9 Depression Total Score: 0 12/03/19 24 10:31 AM EDT documented as of this encounter Care Teams Instrument And Control Technician Relationship Specialty Start Date End Date Agustin Marrero MD [address] [place] [address] PCP - General Internal Medicine 01/25/14 [facility] 06/13/16 documented as of this encounter
--- OUTSIDE RECORDS SUMMARY | 2024-05-20 07:35 | XMS_ITS | Encounter Summary ---
Author Organization [employer] Address [address] [place] [address] [address] [place] [address] Care Team Providers Care Lens Marker Name Role Phone Agustin Marrero MD Primary Care Provide r Reason for Visit * Reason Comments Routine Cleaning Dental Exam Encounter Details Date Type Department Care Team ([facility] st Contact Info) Description 05/17/2024 10:00 AM EST Office Visit [facility] [address] [place] [address] JamLorraine Dental plaque (Primary Dx); Dental calculus; Partial edentulism, unspecified edentulism class Social History Tobacco Use Types Packs/Day Years [...] AM EDT documented as of this encounter Last Filed Vital Signs Vital Sign Reading Time Taken Comments Blood Pressure 132/74 05/17/2024 10:01 AM EST Pulse - - Temperature - - Respiratory Rate - - Oxygen Saturation - - Inhaled Oxygen Concentration - - Weight - - Height - - Body Mass Index - - documented in this encounter Progress Notes * Lorraine Polk - 05/17/2024 10:00 AM EST Patient ID: Edward Fonseca is a 59 y.o. male. Time Out: Timeout Date: 05/17/24, Timeout Time: 1001 (prophy and exam adult dental) Location: [facility] Tooth: Maxilla and Mandible Procedure: Exam and Prophylaxis Verified the above with patient, preschool assistant principal, and provider. Confirmed via patient's chart, intraorally and by radiographs. Rate Supervisor: not applicable Medical Hx: Vitals: Blood pressure 132/74. Medications, Med Hx reviewed with patient and updated in chart. Treatment Provided Dental procedures in this visit D1110 - PROPHYLAXIS - ADULT Full (Completed) Service provider: Lorraine Heredia provider: Familia Ceballos DDS D9450 - ADJUNCTIVE GENERAL SERVICES - PROFESSIONAL VISITS - CASE PRESENTATION, SUBSEQUENT TO DETAILED AND EXTENSIVE TREATMENT PLANNING (Completed) Service provider: Lorraine Heredia provider: Familia Ceballos DDS D1330 - ORAL HYGIENE INSTRUCTIONS (Completed) Service provider: Lorraine Heredia provider: Familia Ceballos DDS D1206 - TOPICAL APPLICATION OF FLUORIDE VARNISH (Completed) Service provider: Lorraine Polk [place] provider: Familia Ceballos DDS Instruments Used: Ultrasonic Scalers, Hand Scalers, and Prophy angle Fluoride: 5% NaF varnish applied and POI given Oral Cancer Screening: No lesions Head/Neck Exam: No Lesions Calculus: Moderate and Localized Plaque: Moderate and Generalized Stain: Light and Generalized Bleeding: None Gingiva: Recession- generalized OH: Fair Perio Chart: Completed - generalized 2-3 mm pocketing with generalized recession Exam with Dr. Ceballos - no decay noted, no restorative needs. Oral hygiene instructions provided to patient including brushing technique and flossing. Recommendations: [place] two times daily, modified schofield technique, Floss daily, Electric toothbrush, Soft bristle toothbrush, [place] Tongue, Anti-sensitivity toothpaste Recall Frequency: 6 mo NV: 6mrc, exam Hygienist: Lorraine Polk RDH * Familia Ceballos DDS - 05/17/2024 10:00 AM EST Dental procedures in this visit D1110 - PROPHYLAXIS - ADULT Full (Completed) Service provider: Lorraine Heredia provider: Familia Ceballos DDS D9450 - ADJUNCTIVE GENERAL SERVICES - PROFESSIONAL VISITS - CASE PRESENTATION, SUBSEQUENT TO DETAILED AND EXTENSIVE TREATMENT PLANNING (Completed) Service provider: Lorraine Heredia provider: Familia Ceballos DDS D1330 - ORAL HYGIENE INSTRUCTIONS (Completed) Service provider: Lorraine Heredia provider: Familia Ceballos DDS D1206 - TOPICAL APPLICATION OF FLUORIDE VARNISH (Completed) Service provider: Lorraine Polk [place] provider: Familia Ceballos DDS D0120 - PERIODIC ORAL EVALUATION - ESTABLISHED PATIENT (Completed) Service provider: Familia Ceballos DDS [place] provider: Familia Ceballos DDS Patient ID: Edward Fonseca is a 59 y.o. male. 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 Confirmed via patient's chart, intraorally and by radiographs. Rate Supervisor: not applicable Chief Complaint Patient presents with Routine Cleaning Dental Exam Medical Hx: Vitals: Blood pressure 132/74. Past Medical History: Diagnosis Date Anxiety Chronic periodontal disease Diabetes mellitus (CMS/HCC) History of liver cancer 2020 HLD (hyperlipidemia) Hypertension Insomnia Liver transplant candidate Medications: Outpatient Encounter Medications as of 05/17/2024 Medication Sig Dispense Refill acetaminophen (Tylenol) 325 MG tablet Take 2 tablets (650 mg) by mouth every 6 (six) hours if needed for moderate pain. 30 tablet 0 B-D UF III MINI PEN NEEDLES 31G X 5 MM misc USE TO INJECT 4 TIMES A DAY SEG N LO INDICADO BD Insulin Syringe U/F 31G X 5/16 0.3 ML misc E11.9 FOR USE WITH INSULIN VIALS UNTIL YOU HAVE CHANGED OVER TO THE PENS. Blood Glucose Monitoring Suppl (FreeStyle [place] Lite) w/Device kit TEST 1 TIMES BY INTRADERMAL ROUTE EVERY DAY cholecalciferol (Vitamin D3) 25 MCG (1000 UT) tablet TAKE 1 TABLET BY MOUTH EVERY DAY 90 tablet 1 Continuous Blood Gluc Cns (FreeStyle [place] 2 [place]) device Continuous Glucose Sensor (FreeStyle Arvin 2 Sensor) misc USE DIRECTED EVERY 14 DAYS 2 each 2 dextran 70-hypromellose (artificial tears) 0.1-0.3 % ophthalmic solution APPLY 1-2 GTTS IN EYES EVERY DAY IF NEEDED 5 mL 3 ferrous sulfate 325 (65 Fe) MG EC tablet Take 1 tablet by mouth in the morning. FreeStyle lancets USE 1 EACH DIRECTED THREE TIMES EVERY DAY 100 each 11 FREESTYLE LITE test strip USE TO TEST 3 TIMES DAILY 300 strip 3 gabapentin (Neurontin) 300 MG capsule TOME 1 CAPSULA POR VIA ORAL DOS VECES AL [place] 60 capsule 0 Gvoke HypoPen 2-Pack 0.5 MG/0.1ML injection PLEASE SEE ATTACHED FOR DETAILED DIRECTIONS lactulose (Chronulac) 10 GM/15ML solution Take 15 mL by mouth in the morning and 15 mL in the evening. Lantus SoloStar 100 UNIT/ML pen 15 units magnesium oxide (Mag-Ox) 400 (240 Mg) MG tablet TAKE 2 TABLETS BY MOUTH 2 TIMES A DAY metFORMIN XR (Glucophage-XR) 500 MG 24 hr tablet TOME OLINDA TABLETA TODOS LOS D CON LA CREDIT ASSISTANT Multiple Vitamin (Daily-Stacy Multivitamin) tablet Take 1 tablet by mouth every day 90 tablet 3 NovoLOG FLEXPEN 100 UNIT/ML pen Use Insulin as per sliding scale TID (BG 150- 200mg/dL: 10 units, 201-250 : 12 units, 251-300: 14 units, 301-350: 16 units, 351-400 18 units, >400 20 units 15 mL 0 omeprazole (PriLOSEC) [address] capsule TOME 1 CAPSULA POR VIA ORAL TODOS LOS QUINONES BEFORE A MEAL 90 capsule 1 ondansetron ODT (Zofran-ODT) 4 MG disintegrating tablet PLEASE SEE ATTACHED FOR DETAILED DIRECTIONS pen needle 32G x 4 mm misc Inject under the skin. Use as instructed sildenafil (Viagra) 100 MG tablet TAKE 1 TABLET 1 HOUR BEFORE SEXUAL RELATIONS ONCE DAILY NEEDED. 12 tablet 4 sodium polystyrene sulfonate (Kayexalate) powder TAKE 30 GRAMS ONCE A WEEK SUMAtriptan (Imitrex) 25 MG tablet TAKE 1 TAB BY MOUTH 1 TIME IF NEEDED FOR MIGRAINE. MAY REPEAT DOSE ONCE IN 2 HOURS IF NO RELIEF. DO NOT EXCEED 2 DOSES IN 24 HOURS. 15 tablet 0 tacrolimus (Prograf) 1 MG capsule Take 1 capsules (1mg) in the morning and 1 capsule (1mg) in the evening 180 capsule 0 traMADol (Ultram) 50 MG tablet Take 1 tablet (50 mg) by mouth every 8 (eight) hours if needed for severe pain. Take 1 tablet (50 mg) by mouth every 8 (eight) hours if needed for severe pain. Pt asking for an oval pill, not round please 84 tablet 0 Veltassa 8.4 g pack Taking Mon-Thu-Thu rather than every day due to stomach upset zolpidem (Ambien) 10 MG tablet TOME OLINDA TABLETA POR VIA ORAL TODOS LOS QUINONES AL ACOSTARSE CUANDO SEANECESARIO 30 tablet 0 naloxone (Narcan) 4 mg/0.1 mL nasal spray Administer 0.1 mL into affected nostril(s). No facility-administered encounter medications on file as of 05/17/2024. Objective HPI Asymptomatic Head and Neck Exam: Lymph Nodes, Lips, Palate, Buccal Mucosa, Floor of Mouth, Tongue, Tonsils, Alveolar Ridges, Oropharynx, Salivary Ducts, and Vestibules normal appearance Details: Skin WNL OCS: negative Dental Exam As charted Missing teeth acquired Set of partial functioning well, pt is happy Reference tooth chart for additional findings. Oral Cancer Risk: Low Risk Oral Hygiene Instructions: [place] two times daily, modified schofield technique, Floss daily, Electric toothbrush, Soft bristle toothbrush, [place] Tongue Caries Risk Assessment: Medium- one risk factor No new active caries noticed. Assessment/Plan TERESA X ray Prophy Fluoride Recall Patient tolerated procedure well, all questions answered and expressed understanding. Dismissed in good condition. NV: 6 mos recall Manager Compensation: Lorraine Polk Dentist: Familia Ceballos DDS documented in this encounter Plan of Treatment Upcoming Encounters Date Type Department Care Team (Late st Contact Info) Description 05/31/2024 9:45 AM EST Office Visit [facility] [address] [place] [phone] 07/05/2024 10:00 AM EDT Office Visit [facility] [address] [place] [phone] Agustin Marrero MD [address] [place] [address] 11/16/2024 10:00 AM EDT Office Visit [facility] [address] [place] [address] Catherine Antonio [address] [place] [address] Scheduled Orders Name Type Priority Associated Diagnoses Orde r Schedule PROPHYLAXIS - ADULT Dental Routine 1 Occ urrences starting 05/17/2024 PERIODIC ORAL EVALUATION - ESTABLISHED PATIENT Dental Routine 1 Occurren bhaskar starting 05/17/2024 documented as of this encounter Procedures Procedure Name Priority Date/Time Associated Diagnosis Comments TOPICAL APPLICATION OF FLUORIDE VARNISH Routine 05/17/2024 10:00 AM EST Full PROPHYLAXIS - ADULT Routine 025 10:00 AM EST Dental plaque Dental calculus PERIODIC ORAL EVALUATION - ESTABLISHED PATIENT Routine 05/17/2024 10:00 AM EST ORAL HYGIENE INSTRUCTIONS Routine 05/17/2024 10:00 AM EST Dental plaque Dental calculus ADJUNCTIVE GENERAL SERVICES - PROFESSIONAL VISITS - CASE PRESENTATION, SUBSEQUENT TO DETAILED AND EXTENSIVE TREATMENT PLANNING Routine 05/17/2024 10:00 AM EST documented in this encounter Visit Diagnoses Diagnosis Dental plaque- Primary Accretions on teeth Dental calculus Accretions on teeth Partial edentulism, unspecified edentulism class documented in this encounter Additional Health Concerns Assessment Noted Time PHQ-9 Depression Total Score: 0 12/03/19 10:31 AM EDT documented as of this encounter Care Teams Lens Marker Relationship Specialty Start Date End Date Agustin Marrero MD [address] [place] [phone] PCP - General Internal Medicine 01/25/14 [facility] 06/13/16 documented as of this encounter
--- OUTSIDE RECORDS SUMMARY | 2024-05-20 07:35 | XMS_ITS | Encounter Summary ---
Author Organization [employer] Address [address] [place] [address] [address] [place] [address] Care Team Providers Care Boiler/Chiller Technician Name Role Phone Agustin Marrero MD Primary Care Provide r Reason for Visit * Reason Onset Date Comments Med Refill 05/26/2023 Encounter Details Date Type Department Care Team ([facility] st Contact Info) Description 05/26/2023 Telephone [facility] [address] [place], [place] [phone] Agustin Marrero MD [address] [place] [address] Med Refill Social History Tobacco Use Types Packs/Day Years Used Date Smoking Tobacco: Former Cigarettes Passive Smoke Exposure: Past Smokeless Tobacco: Never Alcohol Use Standard Drinks/Week Comments Never 0 (1 standard drink = 0.6 oz pur e alcohol) Housing Stability Answer Date Recorded What is your housing situation today? I have housing today, but I am worried about losing housing in the future 02/03/[address] you li ve. Do you have problems with any of the following? None of the above 02/03/2023 Food Insecurity Answer Date Recorded Within the past 12 months, y ou worried that your food would run out before you got money to buy more: Never True 02/03/2023 Within the past 12 months,th e food you bought just didn't last and you didn't have enough money to get more: Never True Transportation Answer Date Recorded In the past 12 months, has l ack of transportation kept you from medical appts, meetings, work or from getting things needed for daily living? No 02/03/2023 Utilities Answer Date Recorded In the past 12 months, has t he electric, gas, oil or water company threatened to shut off services in your home? No 02/03/2023 Depression Answer Date Recorded Patient Health Questionnaire-2 Score 0 04/22/2022 Sex and Gender Information Value Date Recorded Sex Assigned at Male 02/17/2022 10:14 AM EDT Legal Sex Male 10:14 AM EDT Gender Identity Male 02/17/2022 10:14 AM EDT Sexual Orientation Straight 02/17/2022 10 :14 AM EDT documented as of this encounter Miscellaneous Notes * Telephone Encounter - Patti White LPN - 05/26/2023 2:00 PM EST Medication pended to PCP. * Telephone Encounter - Ara Stanley - 05/26/2023 1:47 PM EST TC from pt requesting medication refill. Medications needing refill : zolpidem (Ambien) 10 MG tablet FREESTYLE LITE test strip To be sent to: [facility]/pharmacy [address] [place] [address] - [address] [place] [address] documented in this encounter Plan of Treatment Upcoming Encounters Date Type Department Care Team (Late st Contact Info) Description 05/31/2024 9:45 AM EST Office Visit [facility] [address] [place] [phone] 07/05/2024 10:00 AM EDT Office Visit [facility] [address] [place] [address] Agustin Marrero MD [address] [place] [address] 11/16/2024 10:00 AM EDT Office Visit [facility] [address] [place] [address] Catherine Antonio [address] [place] [address] documented as of this encounter Visit Diagnoses Not on filedocumented in this encounter Care Teams Boiler/Chiller Technician Relationship Specialty Start Date End Date Agustin Marrero MD [address] [place] [address] PCP - General Internal Medicine 01/25/14 [facility] 06/13/16 documented as of this encounter
--- OUTSIDE RECORDS SUMMARY | 2024-05-20 07:35 | XMS_ITS | Encounter Summary ---
Author Organization [employer] Address [address] [place] [address] [address] [place] [address] Care Team Providers Care Expanded Duty Dental Assistant Name Role Phone Agustin Marrero MD Primary Care Provide r Reason for Visit * Reason Comments Med Refill Encounter Details Date Type Department Care Team ([facility] st Contact Info) Description 05/13/2024 Refill [facility] [address] [place], [place] [phone] Agustin Marrero MD [address] [place] [address] Social History Tobacco Use Types Packs/Day Years [...] Description 05/31/2024 9:45 AM EST Office Visit [facility] [address] [place] [phone] 07/05/2024 10:00 AM EDT Office Visit [facility] [address] [place] [phone] Agustin Marrero MD [address] [place] [address] 11/16/2024 10:00 AM EDT Office Visit [facility] [address] [place] [address] Paco, Catherine [address] [place] [address] documented as of this encounter Visit Diagnoses Not on filedocumented in this encounter Additional Health Concerns Assessment Noted Time PHQ-9 Depression Total Score: 0 12/03/19 24 10:31 AM EDT documented as of this encounter Care Teams Expanded Duty Dental Assistant Relationship Specialty Start Date End Date Agustin Marrero MD [address] [place] [address] PCP - General Internal Medicine 01/25/14 [facility] 06/13/16 documented as of this encounter
--- OUTSIDE RECORDS SUMMARY | 2024-05-20 07:35 | XMS_ITS | Referral Summary ---
Author Organization [facility] Address [address] [place] [address] Care Team Providers Care Java Web Developer Name Role Phone Agustin Mix Primary Care Provider + Encounters Date Type Department Care Team Description 05/11/2024 Telephone [facility] Transplant Department [address] [place] [address] Erika Bonds RN 04/29/2024 Abstract [facility] Transplant Department [address] [place] [address] Dylan Phelps MD 04/28/2024 Abstract [facility] Transplant Department [address] [place] [address] Dylan Phelps MD 04/26/2024 Abstract [facility] Transplant Department [address] [place] [address] Dylan Phelps MD 04/06/2024 Abstract [facility] Transplant Department [address] [place] [address] Dylan Phelps MD 03/08/2024 Abstract [facility] Transplant Department [address] [place] [address] Dylan Phelps MD 03/07/2024 Abstract [facility] Transplant Department [address] [place] [address] Dylan Phelps MD 03/07/2024 Abstract [facility] Transplant Department [address] [place] [address] Dylan Phelps MD 03/03/2024 Telephone [facility] Transplant Department [address] [place] [address] Dylan Phelps MD from Last 3 Months Allergies No known active allergies Medications blood [...] needed daily 2 Active FreeStyle Arvin 2 Hearne misc 2 Active BD Insulin Syringe Ultra-Fine [...] in March 2020. He was seen by vehicle painter at [facility] who discussed that he might need someone [...] for liver biopsy, since LFT pattern not desk representative of rejection. Additionally, Liver ultrasound showed [...] of recurrent ESBL bacteremia. Initially presented to [facility] for fever, LE swelling and pain. Unclear source. BCX grew esbl E.Coli 1 out of 2 sets from [facility], susceptible to Ertapenem. Initially he was [...] of recurrent ESBL bacteremia. Initially presented to [facility] for fever, LE swelling and pain. Unclear source. BCX grew esbl E.Coli 1 out of 2 sets from [facility], susceptible to Ertapenem. Initially he was [...] recurrent ESBL bacteremia. Patient initially presented to [facility] for fever and LE swelling and pain. Unclear source. BCX grew esbl E.Coli 1 out of 2 sets from [facility], susceptible to Ertapenem. Initially he was on zosyn, and was switched to ertapenem. On previous admission, MRCP on 12/20 or Abdominal US on 01/16 showed no biliary dilatation. - continue ertapenem (10 day course to be completed on 02/09 per [facility] note) - repeat BCX - CT AP w/ contrast - consult transplant ID in the AM - f/u CBC and CMP Assessment & Plan (02/05/2019 5:40 AM EDT): Patient has a recurrent history of recurrent ESBL bacteremia. Patient initially presented to [facility] for fever and LE swelling and pain. Unclear source. BCX grew esbl E.Coli 1 out of 2 sets from [facility], susceptible to Ertapenem. Initially he was on zosyn, and was switched to ertapenem. On previous admission, MRCP on 12/20 or Abdominal US on 01/16 showed no biliary dilatation. - continue ertapenem (10 day course to be completed on 02/09 per [facility] note) - repeat BCX - CT AP w/ contrast Abscess of leg, right 02/05/20192018 Assessment & Plan (02/22/2019 3:37 PM EST): Patient has worsened leg edema R>L w/ rt side 4+ pitting edema. At [facility], US was negative for DVT. CT [...] w/ rt side 4+ pitting edema. At [facility], US was negative for DVT. CT [...] Right side has 4+ pitting edema. At [facility], US was obtained and ruled out [...] was found. OSH GI recommended transfer to [facility] as there was a suspicion for acute [...] pathology. -BCx grew GNR?? -transplant ID consulted -[facility] was called for speciation, it will [...] concerning for pathology. -Transplant ID is following -[facility] will fax culture data, commented that [...] 8:59 AM EST): Hyponatremic to 132 at [facility]. Na 128, constant through hospitalization. - daily BMP Assessment & Plan (02/09/2019 11:02 AM EDT): Hyponatremic to 132 at [facility]. Na 128, constant through hospitalization. - daily BMP Assessment & Plan (02/05/2019 5:51 AM EDT): Hyponatremic to 132 at [facility]. - repeat BMP in am and redose diuretics Assessment & Plan (02/05/2019 5:47 AM EDT): Hyponatremic to 132 at [facility]. - repeat BMP in am and redose [...] not show acute fracture, and hardware intact. Raina madrid that it is painful due to him [...] not show acute fracture, and hardware intact. Raina watsonley that it is painful due to him [...] Presented again on day of admission to [facility] with worsening shortness of breath where a CT chest PE protocol was performed which showed no evidence of intraluminal filling defect though did make note of large left- sided pleural effusion with associated complete left lower lobe collapse as well as partial left upper lobe collapse. Due to recurrent pleural effusion and likely need for repeat thoracentesis patient was transferred [facility]. On arrival patient without any increased work of breathing and saturating well on room air. Exam reveals absent breath sounds in the left middle and lower lung perez with increased dullness to percussion. 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 -We will have CT scan from [facility] uploaded into our system for review -CXR on 07/11 showed large left pleural effusion -IP consulted for thoracentesis. Will send fluid studies. -Requested [facility] records of pleural fluid studies from 07/06 -Supplemental oxygen as needed to maintain sats greater than 92% Assessment & Plan (01/19/2019 10:11 AM EDT): Patient is s/p thoracentesis after large left lung effusion unchanged from previous admission seen on imaging. Site of thoracentesis covered with bandage that is dry and intact. Chart review of his prior hospitalization at [facility] revealed that he had thoracentesis on January 11, 2019, during which 1.6 L was taken out, and fluid study revealed white blood cell count of 2650 and segs of 35%, suggesting exudative fluid, although it seems that no paracentesis was done at [facility]. - decreased breath sounds in middle and [...] resulting transudative fluid, rapidly reaccumulating, transferred to [facility] for TIPS intervention. 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 Most recent hospitalization at [facility] was in January 2019 when he was [...] to hyperkalemia. Of note, reached out to [facility] to double check if paracentesis was done, and whether there is a fluid study of the sample, however it appears that no paracentesis was done at [facility]. - Start Lactulose increased to 20 g [...] from TIPS procedure and was sent to [facility] for further evaluation. Plan -Continue with home [...] 20mg daily and spironolactone 50mg daily. At [facility], patient received IV lasix 40mg daily. [...] 20mg daily and spironolactone 50mg daily. At [facility], patient received IV lasix 40mg daily. [...] at 01/20/2019 7:09 AM Age: 54 years Immunizations Name Administration Dates Next Due COVID-19, [...] - educated about importance, continues to refuse) Social History Tobacco Use Types Packs/Day Years [...] Info) Description 08/01/2024 11:30 AM EDT Follow-Up [facility] Liver Transplant Services [address] [place] [address] Dylan Phelps MD [address] [place] [address] Medical Devices Implanted Type Area Transportation Technician Device Identifier Shelf Expiration Date Model / Serial / Lot Shunt Transjugular Intrahepatic Portosystemic Tips Endoprosthesis [id number] Viatorr - [id number] Implanted:Qty: 1 on 07/28/2017 at [facility] Implant W L GORE 12/26/2019 [id number] / / Mesh Hernia With Strap Large Ventralex - [id number] Implanted:Qty: 1 on 03/20/2020 by Fernando Fine MD PhD at [facility] Mesh Right: Abdomen [employer] 01/15/2021 [id number] / / [id number] Stent Biliary Rx Fully Covered Self Expanding Metallic Rmv With Permalume Covering 8.5fr [id number] Wallflex - [id number] - [id number] Implanted:Qty: 1 on 11/21/2022 by Dunia Osoroi MD at [facility] Stent N/A: Bile Duct [employer] 08/21/2024 [id number] / [id number] / Explanted Type Area Transportation Technician Device Identifier Shelf Expiration Date Model / Serial / Lot Ercp Stent-11/21/2022 Implanted:07/2022 (Quantity not on file) Explanted:06/2022 (Quantity not on file) ERCP Stent Bile Duct 1 / / Txp Internal Biliary Stent- 0 Implanted:07/20 (Quantity not on file) Explanted:07/2020 (Quantity not on file) TXP Internal Biliary Stent Bile Duct Procedures * Due to [place] state law, this organization might not be [...] to Health Maintenance Results * Due to [place] state law, this organization might not be sharing negative HIV tests. * LIVER POST EXTERNAL PANEL (04/25/2024 7:13 AM EST) Only the most recent of3 resultswithin the time period is included. Sodium 139 mmol/L [facility] Potassium 4.5 [facility] Chloride 110 [facility] Carbon Dioxide 23 [facility] Glucose 155 [facility] BUN 18 mg/dL [facility] Creatinine 1.16 mg/dL [facility] Calcium 9.6 mg/dL [facility] Total Protein 7.1 g/dL [facility] Albumin 4.4 g/dL [facility] Bilirubin, Total 0.8 mg/dL [facility] Alkaline Phosphatase 113 U/L [facility] AST 37 U/L [facility] ALT 53 U/L [facility] Magnesium 1.70 mg/dL [facility] WBC 5.2 10*3/uL [facility] Hgb 14.1 [facility] Hematocrit 40.6 % [facility] Platelets 127 10*3/uL [facility] 04/25/2024 7:13 AM EST Dylan Phelps MD LAB BLOOD ORDERABLES Final Re sult Performing Organization Address [facility] Co de Phone Number [facility] [address] [place] [address] * AFP Tumor Marker, Outside Lab (04/25/2024 7:13 AM EST) Only the most recent of2 resultswithin the time period is included. Alpha Fetoprotein, Tumor Marker 1.4 [facility] Blood Structure of peripheral vein / Unknown 04/25/2024 7:13 AM EST Dylan Phelps MD LAB BLOOD ORDERABLES Final Re sult Performing Organization Address [facility] Co de Phone Number [facility] [address] [place] [address] * Tacrolimus Level, Outside Lab (04/25/2024 7:13 AM EST) Only the most recent of2 resultswithin the time period is included. Tacrolimus, Highly Sensitive 5.5 [facility] Blood Structure of peripheral vein / Unknown 04/25/2024 7:13 AM EST us Dylan Phelps MD LAB BLOOD ORDERABLES Final Re sult [facility] [address] [place] [address] * CT Chest W Contrast (11/05/2023 4:35 [...] obtain the completed interpretation. ? Workstation ID: [id number] Up-to-date CT equipment and radiation dose reduction techniques were employed. CTDIvol: 3.1 - 23.9 mGy. DLP: 2643 mGy-cm. ??The following accession numbers are related to this dose report [id number]: [id number] Narrative 11/19/2023 3:36 PM EDT Indication: ??58 [...] the spine. ??Bilateral gynecomastia. Resulting Agency Comment [id number] Procedure Note Natasha Michaud MD - 11/19/2023 [...] possible to obtain thecompleted interpretation. Workstation ID: [id number] Up-to-date CT equipment and radiation dose reduction techniques wereemployed. CTDIvol: 3.1 - 23.9 mGy. DLP: 2643 mGy-cm. The followingaccession numbers are related to this dose report [id number]: [id number] Dylan Phelps MD [facility] CT PROCEDURES Final Resul t * (ABNORMAL) Basic Metabolic Panel (11/15/2022 3:07 AM EDT) NA 135 135 - 145 mmol/L 11/15/2022 4:09 AM EDT [facility] K 4.6 3.5 - 5.3 mmol/L 11/15/2022 4:09 AM EDT [facility] Cl 103 97 - 110 mmol/L 11/15/2022 4:09 AM EDT [facility] CO2 24 24 - 32 mmol/L 11/15/2022 4:09 AM EDT [facility] BUN 27(H) 7 - 23 mg/dL 11/15/2022 4:09 AM EDT [facility] Creatinine 1.05 0.60 - 1.30 mg/dL 11/15/2022 4:09 AM EDT [facility] Glucose 268(H) 70 - 99 mg/dL 11/15/2022 4:09 AM EDT [facility] Calcium 8.8 8.7 - 10.7 mg/dL 11/15/2022 4:09 AM EDT [facility] Anion Gap 8 5 - 15 11/15/2022 4:09 AM EDT [facility] eGFR 82 >=60 mL/min/1. 73m2 11/15/2022 4:09 AM EDT [facility] Comment:The estimated glomer ular [...] MD LAB BLOOD ORDERABLES Final Re sult [facility] [address] [place] [address], * Microalbumin, Random Urine with Creatinine (05/17/2021 11:35 AM EST) Microalbumin, Urine 1.1 mg/dL 05/17/2021 12:34 PM EST [facility] Creatinine, Urine 97 22 - 328 mg/dL 05/17/2021 12:34 PM EST [facility] Microalb/Creat Ratio, Random Urine 11.3 <30.0 mcg/mgCr 05/17/2021 12:34 PM EST [facility] Comment: Microalbumin Reference Range: Normal ? <30 mcg/mg Creatinine Microalbuminuria ? 30-300 mcg/mg Creatinine Clinical Albuminuria >300 mcg/mg Creatinine Reference: ADA Guideline. Diabetes Care. 2004;27 (suppl 1) Urine Voided urine specimen / Unknown Non-Blood Collection / Unknown 05/17/2021 11:35 AM EST 05/17/2021 12:01 PM EST us Angelita Villa MD LAB URINE ORDERABLES Final Resul t [facility] [address] [place] [id number], * (ABNORMAL) Hemoglobin A1c (05/17/2021 11:31 AM EST) Hemoglobin A1C 7.7(H) <5.7 % of total Hgb 05/18/2021 2:37 AM EST [facility] Comment: For someone without known diabetes, a [...] (MG/DL) 174 mg/dL 05/18/2021 2:37 AM EST [facility] eAG (MMOL/L) 9.7 mmol/L 05/18/2021 2:37 AM [email or web address] Blood Structure of peripheral vein / Unknown Venipuncture / Unknown 05/17/2021 11:31 AM EST 05/17/2021 11:40 AM EST Narrative [facility] [address] - 05/18/2021 2:37 AM EST [facility] Received Date: us Angelita Villa MD LAB BLOOD ORDERABLES Final Resul t [facility] [address], [place] [address], [place] [phone] [employer] [facility] [address], [place] [address], [place] [phone] * CT Abdomen Pelvis with Contrast (05/05/2020 5:27 PM EST) Anatomical Region Laterality Modality Body Computed Tomogra phy 05/06/2020 8:40 AM EST Impressions 05/06/2020 8:50 AM EST Small fluid pocket between the incision and transverse colon which may represent developing adhesions. Recommend correlation for any signs of infection in the incision on exam. Otherwise, no CT findings that might explain patient's fever. [id number] Narrative 05/06/2020 8:50 AM EST EXAMINATION: CT [...] no CT findings that mightexplain patient's fever. [id number] Reyes Voss MD IM CT PROCEDURES Final Result * Hepatitis C RNA, Quantitative, PCR (09/09/2019 11:52 AM EDT) Hcv RNA, Quantitative Real Time PCR <15 NOT DETECTED NOT DETECTED IU/mL 09/14/2019 5:38 PM EDT [employer] [facility] Hepatitis C Quantitative PCR Log IU/mL <1.18 NOT DETECTED NOT DETECTED Log IU/mL 09/14/2019 5:38 PM EDT [facility] Comment: This test was performed using Real-Time Polymerase Chain Reaction. Reportable Range: 15 IU/mL to 100,000,000 IU/mL (1.18 Log IU/mL to 8.00 Log IU/mL). ?? The analytical performance characteristics of this assay have been determined by [employer]. The modifications have not been cleared or approved by the FDA. This assay has been validated pursuant to the CLIA regulations and is used for clinical purposes. ?? For more information on this test, go to: http://education.Metail/faq/GXG00t6 (This link is being provided for informational/ educational purposes only.) Blood Structure of peripheral vein / Unknown Venipuncture / Unknown 09/09/2019 11:52 AM EDT 09/09/2019 12:07 PM EDT Narrative [facility] - 09/14/2019 5:38 PM EDT [facility] Received Date: Cyndi Pereira MD LAB BLOOD ORDERAB LES Final Result [facility] [address] [facility] [address]rd Floor, [place] [address], [place] [phone] [employer] [facility] [address] [facility] [address]rd [address], [place] [address], from Last 3 Months or Most Recently Relevant to Health Maintenance Insurance [address] [place] [address] [facility] [place] [address] [employer] [id number] Advance Directives Documents on File Type Date Recorded Patient [employer] Dean Expl anation Health Care Proxy 02/05/2019 4:40 [...] Jon Son Health Care Agent Care Teams Java Web Developer Relationship Specialty Start Date End Date Agustin Mix [address] [place] [address] PCP - General Internal Medicine 04/15/17
--- OUTSIDE RECORDS SUMMARY | 2024-05-20 07:35 | XMS_ITS | Encounter Summary ---
Author Organization [employer] Address [address] [facility] [address]t [place] [address] Care Team Providers Care Cinder Dump Crane Operator Name Role Phone Agustin Marrero MD Primary Care Provide r Encounter Details Date Type Department Care Team (Late st Contact Info) Description 05/05/2023 Telephone [facility] MEDICINE [address] [place], [place] [phone] Agustin Marrero MD [address] [place], [place] [phone] Social History Tobacco Use Types Packs/Day Years [...] 9:45 AM EST Office Visit [facility] [address] [place] [address] 07/05/2024 10:00 AM EDT Office Visit [facility] MEDICINE [address] [place] [address] Agustin Marrero MD [address] [place] [address] 11/16/2024 10:00 AM EDT Office Visit [facility] ADULT DENTAL [address] [place] [address] Paco, Catherine [address] [place] [address] documented as of this encounter Visit Diagnoses Not on filedocumented in this encounter Care Teams Cinder Dump Crane Operator Relationship Specialty Start Date End Date Agustin Marrero MD [address] [place] [address] PCP - General Internal Medicine 01/25/14 [facility] 06/13/16 documented as of this encounter
--- OUTSIDE RECORDS SUMMARY | 2024-05-20 07:35 | XMS_ITS | Encounter Summary ---
Author Organization [facility] Address [address] [place] [address] 7t [place] [address] Care Team Providers Care Head Of Business Development Name Role Phone Agustin Marrero MD Primary Care Provide r Reason for Visit * Reason Onset Date Comments Med Refill 12/15/2022 Encounter Details Date Type Department Care Team ([facility] st Contact Info) Description 12/15/2022 Telephone [facility] MEDICINE [address] [place], [place] [phone] Agustin Marrero MD [address] [place] [address] Med Refill Social History Tobacco Use Types [...] Telephone Encounter - Katheryn Dallas RN - 12/15/2022 3:41 PM EDT Sent to pcp already * Telephone Encounter - Lluvia Mendoza - 12/15/2022 3:38 PM EDT Tc from pt requesting medication refill on traMADol (Ultram) 50 MG tablet documented in this encounter Plan of Treatment Upcoming Encounters Date Type Department Care Team (Late st Contact Info) Description 05/31/2024 9:45 AM EST Office Visit [facility] MEDICINE [address] [place] [address] 07/05/2024 10:00 AM EDT Office Visit [facility] MEDICINE [address] [place] [address] Agustin Marrero MD [address] [place] [address] 11/16/2024 10:00 AM EDT Office Visit [facility] ADULT DENTAL [address] [place] [address] Matty Antonioaris [address] [place] [address] documented as of this encounter Visit Diagnoses Not on filedocumented in this encounter Care Teams Head Of Business Development Relationship Specialty Start Date End Date Agustin Marrero MD [address] [place] [address] PCP - General Internal Medicine 01/25/14 [facility] 06/13/16 documented as of this encounter
--- OUTSIDE RECORDS SUMMARY | 2024-05-20 07:35 | XMS_ITS | Encounter Summary ---
Author Organization [employer] Address [address] [place] [address] [address]t [place] [address] Care Team Providers Care Drill Operator Name Role Phone Agustin Marrero MD Primary Care Provide r Reason for Visit * Reason Onset Date Comments Med Refill 05/03/2024 Encounter Details Date Type Department Care Team (Late st Contact Info) Description 05/03/2024 Refill [facility] MEDICINE [address] [place], [place] [phone] Agustin Marrero MD [address] [place] [address] Chronic midline low back pain without sciatica [...] Telephone Encounter - Horace Ulrich - 05/03/2024 3:53 PM EST TC from pt requesting medication refill. Medications needing refill : traMADol (Ultram) 50 MG tablet To be sent to: [facility]/pharmacy #[id number] [place] [address] - [address] [place] [address] documented in this encounter Plan of Treatment Upcoming Encounters Date Type Department Care Team (Late st Contact Info) Description 05/31/2024 9:45 AM EST Office Visit [facility] MEDICINE [address] [place] [address] 07/05/2024 10:00 AM EDT Office Visit [facility] MED[facility]INE [address] [place] [address] Agustin Marrero MD [address] [place] [address] 11/16/2024 10:00 AM EDT Office Visit [facility] ADULT DENTAL [address] [place] [address] Catherine Antonio [address] [place] [address] documented as of this encounter Visit Diagnoses Diagnosis Chronic midline low back pain without sciatica documented in this encounter Additional Health Concerns Assessment Noted Time PHQ-9 Depression Total Score: 0 12/03/19 10:31 AM EDT documented as of this encounter Care Teams Drill Operator Relationship Specialty Start Date End Date Agustin Marrero MD [address] [place] [address] PCP - General Internal Medicine 01/25/14 [facility] 06/13/16 documented as of this encounter
--- OUTSIDE RECORDS SUMMARY | 2024-05-20 07:35 | XMS_ITS | Data Portability ---
Author Organization [facility] [employer] [facility], Main Office Address [address] [facility], [address] [place] [address] Care Team Providers Care Filler Shredding Machine Loader Name Role Phone MARICRUZ NEWMAN - 2ND FLOOR OTHER Assessment Encounter Date Assessment Date Assessment LastModified by Organization Details LastModified Time 02/25/2019 02/25/2019 02/24/19 WBC 3.7, Hgb 7.5, Hct 22.4, Plt 59, Na 134, K 4.5, BUN 10, Low Voltage Electrician 0.54, calc 7.8, tot prot 5.1, AST 69, ALT 33, A1c 4.2 02/23/19 WBC 3.4, Hgb 7.5, Hct 22.4, Plt 59, Na 128, K 4.3, BUN 11, Low Voltage Electrician 0.56, silvia 7.6, tot prot 4.8, tot bili 4.1, AST 65, ALT 25 in hospital [facility] Not available 02/25/2019 10:15:55 Plan of [...] Gastroesop hageal reflux disease without esophagiti s 302886001 Active 2018 FIDEL MAURO [address] [facility], [address], [place], [address], [facility] [employer] 9 08:26:33 Cirrhosis of liver 58916589 Active 2018 on transplant list FIDEL MAURO [address] [facility], [address], [place], [address], [facility] 9 08:36:16 Diabetes mellitus 53089726 Active 2018 CACHORRO FIDEL CARLSON [address] [facility], [address], [place], [address], [facility] 9 08:28:07 Hyponatrem ia 98447408 Active 2018 CACHORROFIDEL LEON [address] [facility], [address], [place], [address], [facility] 9 08:28:22 Bacteremia 7609357 Active 2018 CACHORROFIDEL LEON [address] [facility], [address], [place], [address], [facility] 9 08:29:07 Bacterial peritoniti s 072708661 Active 2018 FIDEL MAURO [address] [facility], [address], [place], [address], [facility] 9 09:07:42 Edema of lower extremity 670197174 Active 2018 FIDEL MAURO [address] [facility], [address], [place], [address], [facility] 9 09:15:49 Abscess of lower leg 912138640 Active 2018 Brittaney Mcelroy MD [address] [place] [address], [address], [place], [address], [facility] 9 07:15:49 Anemia 493056538 Active 2018 Brittaney Mcelroy MD [address] [place] [address], [address], [place], [address], [employer] 9 07:16:47 Problem Notes None recorded. Medical Equipment None Reported. Allergies No known drug allergies Medications Not known to be on any medication Vitals Date Recorded Body weight Heart rate Respiratory rate Body temperature Oxygen saturation Oxygen saturation in Arterial blood by Pulse oximetry Systolic blood pressure Diastolic blood pressure Provider Name and Address Organization Details Last Updated DateTime 9 67678.5 1 g 70 /min 20 /min 96.9 [degF] 98 % 98 % 128 mm[Hg] 74 mm[Hg] FIDEL MAURO [address] [facility], [address], [place], [address], [facility] [employer] [facility] 9 11:06:12 Date Recorded Systolic blood pressure Diastolic blood pressure Provider Name and Address Organization Details Last Updated DateTime 03/02/2019 120 mm[Hg] 68 mm[Hg] Brittaney Mcelroy MD [address] [facility], [address], [place], [address], [facility] [employer] 03/02/2019 06:55:54 Social History Question Answer Notes LastModified by Organizat ion Details LastModified Time Tobacco Smoking Status Former Smoker Not Available [facility] 02/14/2020 03:13:21 Do You Have An Advance Directive? Yes FULL CODE-undecid ed About Dialysis And Nutrition-ma y Use Hydration [id number] Information not available 02/14/2020 What Is Your Level Of Alcohol Consumption? None Quit Drinking In 2016 [id number] Information not available 02/14/2020 How Many Years Have You Consumed Alcohol? 30 [id number] Information not available 02/14/2020 How Much Tobacco Do You Chew? None [id number] Information not available 02/14/2020 Do You Or Have You Ever Used E-cigarettes Or Vape? Never Used Electronic Cigarettes [id number] Information not available 02/14/2020 Do You Have A Medical Power Of Reliability Technician? Yes Hcp On File [id number] Information not available 02/14/2020 What Was The Date Of Your Most Recent Tobacco Screening? 02/25/2019 [id number] Information not available 02/14/2020 Do You Or Have You Ever Used Smokeless Tobacco? Never Used Smokeless Tobacco [id number] Information not available 02/14/2020 How Much Tobacco Do You Smoke? 1 PPD [id number] Information not available 02/14/2020 On What Date Was Tobacco Cessation Counseling Provided? 02/25/2019 NA [id number] Information not available 02/14/2020 How Many Years Have You Smoked Tobacco? 30 [id number] Information not available 02/14/2020 Sex: Unknown Functional Status None recorded. Mental Status None recorded. Family History Nothing Reported. Medical History No medical history recorded. Past Encounters Encounter ID Performer Location Encounter Start Date Encounter Closed Date Diagnosis/Indication Diagnosis SNOMED-CT Code Diagnosis ICD10 Code Diagnosis Note [id number] FIDEL MAURO [address] [address] 02/25/2019 08:25:36 03/04/2019 13:41:33 Bacteremia 2709166 R78.81 completed treatmentm onitor dsg changes qdwet to dryareas clean Hyponatremia 90838819 E8 7.1 resolvedmo nitor labs Cirrhosis of liver K70.31 lactulose 30 mls tid 3-4 stools a dayspirono lactone 50 mg qdmonitoro n transplant listfollow s with [facility] Diabetes mellitus 248407 09 E11.9 lantus 8 units q [id number] here is 4.2monitor for s/s of hypo/hyper glycemia Gastroesop hageal reflux disease without esophagitis 450352286 K21.9 omeprazole 20 mg qdmonitor for symptoms Bacterial peritonitis 19 6277073 K65.2 recurrentc ipro 500 mg qd prophymoni tor for symptoms Edema of l ower extremity 980520343 R60.0 lasix 20 mg qdmonitor edema [id number] Brittaney Mcelroy MD [address] [address] 03/02/2019 06:54:11 03/04/2019 13:42:54 Cirrhosis of liver 45545527 K70.31 fu GIlactulos e 20 gm tidfurosem concetta 20 mg dailymagne sium 400 mg dailyspiro nolactone 25 mg dailyon transplant list [facility] Diabetes mellitus 330197 09 E11.9 Humalog per sliding scaleLantu s 8U dailywill monitor Gastroesop hageal reflux disease without esophagitis 894810845 K21.9 omeprazole 20 mg dailywill monitor Anemia 147249147 D50.8 suspect multifacto rial including GI blood loss, chronic diseaseawa it B12, folateiron 325 mg bidwill continue to monitor Bacteremia 6340489 R78.8 1 antibiotic s completedd aily dressing changes legfu surgery Bacterial peritonitis 19 4866655 K65.2 history of in pastCipro 500 mg daily for prophylaxi sfu GI [facility] Health Concerns Section Related Observation LastModified by Organization Detai ls LastModified Time None Recorded Concern Status LastModified by Organization Details LastModified Time None Recorded Advance Directives Directive Y: FULL CODE-undecided about dialysis and nutrition-may use hydration Payers Encounter Date Sequence Insurance Name Policy Number Policy Banks Covered Member ID Banks Member ID Guarantor Name 02/25/2019 2 [place] [facility] [id number] [facility] 02/25/2019 1 [facility] - DOS PRIOR TO 2022 - DUAL ELIGIBLE (MEDICARE REPLACEMENT/AD VANTAGE - HMO) [facility] [id number] [facility] 03/02/2019 2 [place] [facility] Edward Jon [id number] [facility] 03/02/2019 1 [facility] - DOS PRIOR TO 2022 - DUAL ELIGIBLE (MEDICARE REPLACEMENT/AD VANTAGE - HMO) [facility] [id number] [facility] Notes Date Note Type Note Provider Name and Address Organization Details Recorded Time 02/25/2019 text/html A 54 year old ma le being seen for a initial intake note. Patient was at [facility] for fever and lower extremity edema/pain. He was transferred to [facility] for bacteremia. He grew ESBL E. [...] GERD, DM, hyponatremia and SBP. CACHORRO CARLSON, SEAMAN OFFICER [address] [facility], [address], [place], [address], [facility] 02/25/2019 11:10:47 03/02/2019 text/html This 54 year old male was admitted to [facility] 02/23/19 for continued care and rehab after hospitalization for fever and lower extremity edema/pain. Patient has history of alcoholic liver disease and cirrhosis and is on transplant list. He was initially admitted to [facility], then transferred to [facility] for bacteremia. His blood cultures grew ESBL E. Coli and he started on antibiotics, initially Zosyn which was changed to meropenem, then ertapenem to complete a 10 day course. Patient has history recurrent bacteremia in past few months. During most recent prior [facility] admission, it was suspected that likely source of bacteremia was biliary. Patient had worsened R>L leg edema and US was negative at [facility] for DVT. CT of right lower [...] MOLST: full code Brittaney Mcelroy MD [address] [facility], [address], [place], [address], [facility] [employer] [facility] 03/02/2019 08:11:36
--- OUTSIDE RECORDS SUMMARY | 2024-05-20 07:35 | XMS_ITS | Encounter Summary ---
Author Organization [employer] Address [address] [place] [address] 7t [place] [address] Care Team Providers Care Rn Testing Name Role Phone Agustin Marrero MD Primary Care Provide r Reason for Visit * Reason Onset Date Comments Error 05/12/2023 Encounter Details Date Type Department Care Team ([facility] st Contact Info) Description 05/12/2023 Telephone [facility] MEDICINE [address] [place], [place] [phone] Agustin Marrero MD [address] [place], [place] [phone] Error Social History Tobacco Use Types Packs/Day Years [...] Description 05/31/2024 9:45 AM EST Office Visit [facility] MEDICINE [address] [place] [address] 07/05/2024 10:00 AM EDT Office Visit [facility] MEDICINE [address] [place] [address] Agustin Marrero MD [address] [place] [address] 11/16/2024 10:00 AM EDT Office Visit [facility] ADULT DENTAL [address] [place] [address] Paco, Catherine [address] [place] [address] documented as of this encounter Visit Diagnoses Not on filedocumented in this encounter Care Teams Rn Testing Relationship Specialty Start Date End Date Agustin Marrero MD [address] [place] [address] PCP - General Internal Medicine 01/25/14 [facility] 06/13/16 documented as of this encounter
--- OUTSIDE RECORDS SUMMARY | 2024-05-20 07:35 | XMS_ITS | Encounter Summary ---
Author Organization [employer] Address [address] [place] [address] 7t [place] [address] Care Team Providers Care Nurse Care Manager Name Role Phone Agustin Marrero MD Primary Care Provide r Reason for Visit * Reason Onset Date Comments Medication Question 05/11/2024 Encounter Details Date Type Department Care Team ([facility] st Contact Info) Description 05/11/2024 Telephone [facility] MEDICINE [address] [place], [place] [phone] Agustin Marrero MD [address] [place], [place] [phone] Medication Question Social History Tobacco Use Types [...] encounter Miscellaneous Notes * Telephone Encounter - Josey Mena RN - 05/16/2024 11:49 AM EST A also called Dr Richardson's office on 05/11/2024. Note in [facility] EHR: Received call from Edward's VNA nurse questioning if he still needs to be on Kayexelate 2x weekly. She states he has been out ofit for probably 1 month as he was under the impression the order was discontinued. Labs on 04/25 showK level within normal limits. Instructed her to have him repeat labs in early May to continue to monitor. Called [facility] pharmacy, spoke with Faiza who stated that pt last picked up Kayexalate on 08/13/2023, Rx was written by Dr Lenin Richardson for 30g 1x weekly as directed. Called [facility] Dr Richardson's office to confirm. Spoke with Ashley. Ashley stated okay for pt to not take it now because last labs showed potassium level okay, pt has repeat labs scheduled for first week in May and they will manage this medication. Called VNA nurse Jessica to advise of this. Jessica stated that the med list from PCP office TAKE 30 GRAMS ONCE A WEEK does not match what Dr Richardson wrote(take 2x weekly). She states she spoke with KATALINA Ramirez at Dr Richardson's office and received same messageas above. Maintenance Superintendent advised Jessica to contact Dr Richardson with any questions regarding this med given that they prescribe it. Jessica stated she will be following up with their office in May once the pt gets their labs drawn. Advised her to call [facility] if any other questions or concerns develop, Jessica verbalized understanding. * Telephone Encounter - Rufus Stubbs - 05/11/2024 12:19 PM EST Tc from Jessica with [facility] requesting call back regarding sodium polystyrene sulfonate (Kayexalate) powder stating original prescriber wrote script for pt to take medication 3 times weekly but pcp sent script with instruction for it to be taken once a week. Jessica wants to clarify as well as leaving original prescriber contact information. Dr. Richardson [facility]. . If any questions for Jessica you can contact pt at [phone]. documented in this encounter Plan of Treatment Upcoming Encounters Date Type Department Care Team (Late st Contact Info) Description 05/31/2024 9:45 AM EST Office Visit [facility] MEDICINE [address] [place] [address] 07/05/2024 10:00 AM EDT Office Visit [facility] MEDICINE [address] [place] [address] Agustin Marrero MD [address] [place] [address] 11/16/2024 10:00 AM EDT Office Visit [facility] ADULT DENTAL [address] [place] [address] Catherine Antonio [address] [place] [address] documented as of this encounter Visit Diagnoses Not on filedocumented in this encounter Additional Health Concerns Assessment Noted Time PHQ-9 Depression Total Score: 0 12/03/19 24 10:31 AM EDT documented as of this encounter Care Teams Nurse Care Manager Relationship Specialty Start Date End Date Agustin Marrero MD [address] [place] [address] PCP - General Internal Medicine 01/25/14 [facility] 06/13/16 documented as of this encounter
--- OUTSIDE RECORDS SUMMARY | 2024-05-20 07:35 | XMS_ITS | Encounter Summary ---
Author Organization [employer] Address [address] [place] [address] 7t [place] [address] Care Team Providers Care Physician Scribe Name Role Phone Agustin Marrero MD Primary Care Provide r Reason for Visit * Reason Comments Med Refill Encounter Details Date Type Department Care Team ([facility] st Contact Info) Description 06/04/2023 Refill [facility] MEDICINE [address] [place], [place] [phone] Natasha Nguyen MD [address] [place], [place] [phone] Gastroesophageal reflux disease, unspecified whether esophagitis present Social History Tobacco Use Types Packs/Day Years [...] Description 05/31/2024 9:45 AM EST Office Visit [facility] MEDICINE [address] [place] [address] 07/05/2024 10:00 AM EDT Office Visit [facility] MEDICINE [address] [place] [address] Agustin Marrero MD [address] [place] [address] 11/16/2024 10:00 AM EDT Office Visit [facility] ADULT DENTAL [address] [place] [address] Paco, Catherine [address] [place] [address] documented as of this encounter Visit Diagnoses Diagnosis Gastroesophageal reflux disease, unspecified whether esophagitis present documented in this encounter Care Teams Physician Scribe Relationship Specialty Start Date End Date Agustin Marrero MD [address] [place] [address] PCP - General Internal Medicine 01/25/14 [facility] 06/13/16 documented as of this encounter
--- OUTSIDE RECORDS SUMMARY | 2024-05-20 07:35 | XMS_ITS | Encounter Summary ---
Author Organization [facility] Address [address] [place] [address] Care Team Providers Care Professor Of Spanish Name Role Phone Agustin Mix Primary Care Provider + Encounter Details Date Type Department Care Team (Late st Contact Info) Description 02/29/2020 Orders Only [facility] Ultrasound [address] [place] [address] Sreedhar Sotelo MD [address] [place], [place] [phone] Social History Tobacco Use Types Packs/Day Years [...] Info) Description 08/01/2024 11:30 AM EDT Follow-Up [facility] Liver Transplant Services [address] [place] [address] Dylan Phelps MD [address] [place] [address] documented as of this encounter Visit Diagnoses Not on filedocumented in this encounter Additional Health Concerns Infection Onset Date Last Indicated Resolved Time COVID-19 - Suspected infection 03/05/2020 03/17/2020 03/17/2020 7:55 PM EST COVID-19 - Confirmed infection 05/01/2020 05/07/2020 06/01/2020 5:06 PM EST COVID-19 - Suspected infection 05/10/2020 05/10/2020 05/24/2020 10:34 PM EST documented as of this encounter Care Teams Professor Of Spanish Relationship Specialty Start Date End Date Agustin Mix [address] [place] [address] PCP - General Internal Medicine 04/15/17 documented as of this encounter
--- OUTSIDE RECORDS SUMMARY | 2024-05-20 07:35 | XMS_ITS | Encounter Summary ---
Author Organization [facility] Address [address] [place] [address] Care Team Providers Care Spa Receptionist Name Role Phone Agustin Mix Primary Care Provider + Encounter Details Date Type Department Care Team (Late st Contact Info) Description 12/30/2021 Orders Only [facility] Interventional Radiology [address] [place] [address] Avelino Otero DO [address] [place] [address] Social History Tobacco Use Types Packs/Day Years [...] Info) Description 08/01/2024 11:30 AM EDT Follow-Up [facility] Liver Transplant Services [address] [place] [address] Dylan Phelps MD [address] [place] [address] documented as of this encounter Visit Diagnoses Not on filedocumented in this encounter Care Teams Spa Receptionist Relationship Specialty Start Date End Date Agustin Mix [address] [place] [address] PCP - General Internal Medicine 04/15/17 documented as of this encounter
--- OUTSIDE RECORDS SUMMARY | 2024-05-20 07:35 | XMS_ITS | Encounter Summary ---
Author Organization [employer] Address [address] [place] [address] 7t [place] [address] Care Team Providers Care It Instructor Name Role Phone Agustin Marrero MD Primary Care Provide r Reason for Visit * Reason Onset Date Comments Med Refill 04/14/2024 Encounter Details Date Type Department Care Team ([facility] st Contact Info) Description 04/14/2024 Telephone [facility] MEDICINE [address] [place], [place] [phone] Agustin Marrero MD [address] [place] [address] Med Refill Social History Tobacco Use Types [...] Telephone Encounter - Patti White LPN - 04/14/2024 12:00 PM EST Medication to soon for refill script sent to [facility] #[id number] on 03/24/24. * Telephone Encounter - Catherine Quiroz - 04/14/2024 11:49 AM EST TC from pt requesting medication refill. Medications needing refill : gabapentin (Neurontin) 300 MG capsule To be sent to: [facility]/pharmacy #[id number] - [address] documented in this encounter Plan of Treatment Upcoming Encounters Date Type Department Care Team (Late st Contact Info) Description 05/31/2024 9:45 AM EST Office Visit [facility] MEDICINE [address] [place] [address] 07/05/2024 10:00 AM EDT Office Visit [facility] MEDICINE [address] [place] [address] Agustin Marrero MD [address] [place] [phone] 11/16/2024 10:00 AM EDT Office Visit [facility] ADULT DENTAL [address] [place] [address] Catherine Antonio [address] [place] [address] documented as of this encounter Visit Diagnoses Not on filedocumented in this encounter Additional Health Concerns Assessment Noted Time PHQ-9 Depression Total Score: 0 12/03/19 10:31 AM EDT documented as of this encounter Care Teams It Instructor Relationship Specialty Start Date End Date Agustin Marrero MD [address] [place] [address] PCP - General Internal Medicine 01/25/14 [facility] 06/13/16 documented as of this encounter
--- OUTSIDE RECORDS SUMMARY | 2024-05-20 07:36 | XMS_ITS | Encounter Summary ---
Author Organization [employer] Address [address] [place] [address] 7t [place] [address] Care Team Providers Care Hull Molder Name Role Phone Agustin Marrero MD Primary Care Provide r Reason for Visit * Reason Onset Date Comments FYI 04/30/2023 Encounter Details Date Type Department Care Team ([facility] st Contact Info) Description 04/30/2023 Telephone [facility] MEDICINE [address] [place], [place] [phone] Agustin Marrero MD [address] [place] [address] FYI Social History Tobacco Use Types Packs/Day [...] encounter Miscellaneous Notes * Telephone Encounter - Rufus Stubbs - 05/12/2023 10:54 AM EST Tc from Jessica Tona regarding messages prior. She wanted to let pcp know if medication Is not beingordered, she is ok with discontinuing. If any questions you can contact Jessica at [phone]. * Telephone Encounter - Kasey Chatman RN - 05/06/2023 9:50 AM EST It was Queued to provider yesterday. They have up to 72 business hours to send refill * Telephone Encounter - Ara Stanley - 05/06/2023 9:07 AM EST Tc from Josephine MCPHERSON requesting status on medication Multiple Vitamin (Daily-Stacy Multivitamin) tablet. * Telephone Encounter - Patti White LPN - 05/06/2023 8:20 AM EST Medication pended. * Telephone Encounter - Lluvia Mendoza - 05/05/2023 11:38 AM EST TC from pt requesting medication refill. Was prescribed by Dr. sarabia Medications needing refill : Multiple Vitamin (Daily-Stacy Multivitamin) tablet To be sent to: [facility]/pharmacy #[id number] - [place], [place] - [address] [place] [address] * Telephone Encounter - Jaja Kebede - 04/30/2023 11:52 AM EST Tc from [facility] would like to inform PCP that [facility] transplant provider Dr. Sarabia willcontinue to see pt however will no longer prescribe any medication only transplant meds Advised will leave message as a FYi, if any question or concerns please contact at [phone] documented in this encounter Plan of Treatment Upcoming Encounters Date Type Department Care Team (Late st Contact Info) Description 05/31/2024 9:45 AM EST Office Visit [facility] MEDICINE [address] [place] [address] 07/05/2024 10:00 AM EDT Office Visit [facility] MEDICINE [address] [place] [address] Agustin Marrero MD [address] [place] [address] 11/16/2024 10:00 AM EDT Office Visit [facility] ADULT DENTAL [address] [place] [address] Catherine Antonio [address] [place] [address] documented as of this encounter Visit Diagnoses Not on filedocumented in this encounter Care Teams Hull Molder Relationship Specialty Start Date End Date Agustin Marrero MD [address] [place] [address] PCP - General Internal Medicine 01/25/14 [facility] 06/13/16 documented as of this encounter
[2024-05-20 07:48] LABS: MANUAL DIFF FLAG NO
[2024-05-20 08:20] LABS: Basophils Percent Auto 0.6 % (0-2); Eosinophils Absolute Auto 0.1 X10*3/uL (0.0-0.4); Eosinophils Percent Auto 1.7 % (0-4); Hemoglobin 13.7 g/dl (14.0-18.0); Imm Gran Abs Auto 0.01 X10*3/uL (0.00-0.03); Imm Gran Pct Auto 0.2 % (0.0-0.4); Lymphocytes Absolute Auto 1.4 X10*3/uL (1.2-4.9); Lymphocytes Percent Auto 29.4 % (20-40); Mean Corpuscular HGB Conc 36.1 g/dl (31.0-36.0); Mean Corpuscular Hemoglobin 29.9 pg (27.0-33.0); Mean Platelet Volume 11.8 fL (9.4-12.4); Monocytes Absolute Auto 0.5 X10*3/uL (0.1-1.2); Monocytes Percent Auto 10.4 % (2-11); Neutrophils Absolute Auto 2.7 x10*3/uL (2.0-8.3); Neutrophils Percent Auto 57.7 % (45-73); Platelet Count 123 X10*3/uL (160-400); Red Blood Count 4.58 X10*6/uL (4.60-5.80); Red Cell Distribution Width 12.5 % (11.0-16.0); White Blood Count 4.7 X10*3/uL (4.8-10.8)
[2024-05-20 08:54] LABS: Alanine Aminotransferase 55 U/L (0-40); Albumin Level 4.4 g/dL (3.5-5.0); Alkaline Phosphatase 123 U/L (39-117); Anion Gap 11 (12-20); Aspartate Amino Transferase 38 U/L (5-37); Bilirubin Total 0.7 mg/dL (0.0-1.0); Blood Urea Nitrogen 19 mg/dL (9-16); Calcium 9.6 mg/dL (8.4-10.2); Carbon Dioxide 25 mmol/L (22-29); Chloride 108 mmol/L (96-108); Estimated Glomerular Filt Rate > 60; Glucose Random 156 mg/dL (60-115); Magnesium 1.7 mg/dL (1.6-2.6); Potassium 4.7 mmol/L (3.3-5.1); Sodium 139 mmol/L (135-145); Total Protein 7.2 g/dL (6.5-8.0)
[2024-05-22 13:42] LABS: Tacrolimus Prograf 3.6 mcg/L
[2024-05-24 11:13] LABS: Alpha Fetoprotein 1.2 ng/mL (<6.1)
== END 2024-05-20 07:31 | disposition home or self-care (01) ==
LOC: HO.LAB 07:30
PROVIDERS: Internal Medicine; PCP Internal Medicine
DX: Z85.05 Personal history of malignant neoplasm of liver (principal); Z94.4 Liver transplant status; Z79.899 Other long term (current) drug therapy
CPT/HCPCS: 36415; 80053; 80197; 82105; 83735; 85025

== ENCOUNTER 2024-06-17 06:37 | Outpatient (REF) | payer OTHER, SELFPAY ==
--- OUTSIDE RECORDS SUMMARY | 2024-06-17 06:39 | XMS_ITS | Encounter Summary ---
Author Organization [employer] Address [address] [place] [address] 7t [place] [address] Care Team Providers Care Iron Piler Name Role Phone Agustin Marrero MD Primary Care Provide r Reason for Visit * Reason Comments Med Refill Encounter Details Date Type Department Care Team ([facility] st Contact Info) Description 2024 Refill [facility] MEDICINE [address] [place], [place] [phone] Agustin Marrero MD 230 [place] [address] Social History Tobacco Use Types Packs/Day Years [...] Care Team (Late st Contact Info) Description 06/24/2024 9:00 AM EST Clinical Support [facility] [address] [place] [address] Shwetha Collado RN 505 [place] [address] 07/05/2024 10:00 AM EDT Office Visit [facility] [address] [place] [address] Agustin Marrero MD 230 [place] [address] 11/16/2024 10:00 AM EDT Office Visit [facility] ADULT DENTAL [address] [place] [address] Catherine Antonio 230 [place] [address] documented as of this encounter Visit Diagnoses Not on filedocumented in this encounter Additional Health Concerns Assessment Noted Time PHQ-9 Depression Total Score: 0 12/03/19 24 10:31 AM EDT documented as of this encounter Care Teams Iron Piler Relationship Specialty Start Date End Date Agustin Marrero MD [address] [place] [address] PCP - General Internal Medicine 01/25/14 [facility] 06/13/16 documented as of this encounter
--- OUTSIDE RECORDS SUMMARY | 2024-06-17 06:39 | XMS_ITS | Encounter Summary ---
Author Organization [employer] Address [address] [facility] 7t [place] [address] Care Team Providers Care Primary Teaching Assistant Name Role Phone Agustin Marrero MD Primary Care Provide r Encounter Details Date Type Department Care Team (Late st Contact Info) Description 12/24/2023 Telephone [facility] MEDICINE 230 [place], [place] [phone] Agustin Marrero MD 230 [place], [place] [phone] Social History Tobacco Use Types Packs/Day Years [...] Description 06/24/2024 9:00 AM EST Clinical Support [facility] [address] [place] [address] Shwetha Collado, KATALINA 505 [place] [address] 07/05/2024 10:00 AM EDT Office Visit [facility] [address] [place] [address] Agustin Marrero MD [address] [place] [address] 11/16/2024 10:00 AM EDT Office Visit [facility] ADULT DENTAL [address] [place] [address] Catherine Antonio 230 [place] [address] documented as of this encounter Visit Diagnoses Not on filedocumented in this encounter Additional Health Concerns Assessment Noted Time PHQ-9 Depression Total Score: 0 12/03/19 24 10:31 AM EDT documented as of this encounter Care Teams Primary Teaching Assistant Relationship Specialty Start Date End Date Agustin Marrero MD [address] [place] [address] PCP - General Internal Medicine 01/25/14 [facility] 06/13/16 documented as of this encounter
--- OUTSIDE RECORDS SUMMARY | 2024-06-17 06:40 | XMS_ITS | Encounter Summary ---
Author Organization [employer] Address [address] [place] [address] 7t [place] [address] Care Team Providers Care Map Mounter Name Role Phone Agustin Marrero MD Primary Care Provide r Reason for Visit * Reason Onset Date Comments Med Refill 06/16/2024 Encounter Details Date Type Department Care Team (Late st Contact Info) Description 06/16/2024 Refill [facility] MEDICINE 230 [place], [place] [phone] Agustin Marrero MD 230 [place] [address] Chronic midline low back pain without sciatica [...] Telephone Encounter - Patti White LPN - 06/16/2024 11:31 AM EST ZINC PLATE GRAINER checked on 06/16/24. Next appointment 07/05/24. * Telephone Encounter - Manjeet Mclaughlin - 06/16/2024 11:25 AM EST TC from pt requesting medication refill. Medications needing refill : gabapentin (Neurontin) 300 MG capsule To be sent to: [facility]/pharmacy #[id number] documented in this encounter Plan of Treatment Upcoming Encounters Date Type Department Care Team (Late st Contact Info) Description 06/24/2024 9:00 AM EST Clinical Support [facility] MEDICINE 230 [place] [address] Shwetha Collado RN 505 [place] [address] 07/05/2024 10:00 AM EDT Office Visit [facility] MEDICINE 230 [place] [address] Agustin Marrero MD 230 [place] [address] 11/16/2024 10:00 AM EDT Office Visit [facility] ADULT DENTAL [address] [place], [place] [phone] Catherine Antonio [address] [place], [place] [phone] documented as of this encounter Visit Diagnoses Diagnosis Chronic midline low back pain without sciatica documented in this encounter Additional Health Concerns Assessment Noted Time PHQ-9 Depression Total Score: 0 12/03/19 10:31 AM EDT documented as of this encounter Care Teams Map Mounter Relationship Specialty Start Date End Date Agustin Marrero MD 230 [place] [address] PCP - General Internal Medicine 01/25/14 [facility] 06/13/16 documented as of this encounter
--- OUTSIDE RECORDS SUMMARY | 2024-06-17 06:40 | XMS_ITS | Encounter Summary ---
Author Organization [employer] Address [address] [place] [address] 7t [place] [address] Care Team Providers Care Insurance Healthcare Representative Name Role Phone Agustin Marrero MD Primary Care Provide r Reason for Visit * Reason Onset Date Comments Med Refill 06/07/2024 Encounter Details Date Type Department Care Team ([facility] st Contact Info) Description 06/07/2024 Refill [facility] MEDICINE 230 [place], [place] [phone] Agustin Marrero MD 230 [place] [address] Primary insomnia Social History Tobacco Use Types [...] encounter Miscellaneous Notes * Telephone Encounter - Manjeet Mclaughlin - 06/07/2024 3:30 PM EST TC from pt requesting medication refill. Medications needing refill : zolpidem (Ambien) 10 MG tablet To be sent to: [facility]/pharmacy #[id number] [place] [address] - [address] [place] [address] documented in this encounter Plan of Treatment Upcoming Encounters Date Type Department Care Team (Late st Contact Info) Description 06/24/2024 9:00 AM EST Clinical Support [facility] MEDICINE [address] [place] [address] Shwetha Collado RN 505 [place] [address] 07/05/2024 10:00 AM EDT Office Visit [facility] MEDICINE [address] [place] [address] Agustin Marrero MD [address] [place] [address] 11/16/2024 10:00 AM EDT Office Visit [facility] ADULT DENTAL [address] [place] [address] Catherine Antonio [address] [place] [address] documented as of this encounter Visit Diagnoses Diagnosis Primary insomnia Persistent disorder of initiating or maintaining sleep documented in this encounter Additional Health Concerns Assessment Noted Time PHQ-9 Depression Total Score: 0 12/03/19 10:31 AM EDT documented as of this encounter Care Teams Insurance Healthcare Representative Relationship Specialty Start Date End Date Agustin Marrero MD [address] [place] [address] PCP - General Internal Medicine 01/25/14 [facility] 06/13/16 documented as of this encounter
--- OUTSIDE RECORDS SUMMARY | 2024-06-17 06:40 | XMS_ITS | Encounter Summary ---
Author Organization [employer] Address [address] [place] [address] 7t [place] [address] Care Team Providers Care Tow Feeder Name Role Phone Agustin Marrero MD Primary Care Provide r Reason for Visit * Reason Comments Med Refill Encounter Details Date Type Department Care Team ([facility] st Contact Info) Description 12/24/2023 Refill [facility] MEDICINE [address] [place], [place] [phone] Agustin Marrero MD 230 [place] [address] Chronic midline low back pain without sciatica [...] Description 06/24/2024 9:00 AM EST Clinical Support [facility] MEDICINE [address] [place] [address] Shwetha Collado, KATALINA 505 [place] [address] 07/05/2024 10:00 AM EDT Office Visit [facility] MEDICINE [address] [place] [address] Agustin Marrero MD [address] [place] [address] 11/16/2024 10:00 AM EDT Office Visit [facility] ADULT DENTAL [address] [place] [address] Catherine Antonio [address] [place] [address] documented as of this encounter Visit Diagnoses Diagnosis Chronic midline low back pain without sciatica documented in this encounter Additional Health Concerns Assessment Noted Time PHQ-9 Depression Total Score: 0 12/03/19 24 10:31 AM EDT documented as of this encounter Care Teams Tow Feeder Relationship Specialty Start Date End Date Agustin Marrero MD [address] [place] [address] [place] [address] PCP - General Internal Medicine 01/25/14 [facility] 06/13/16 documented as of this encounter
--- OUTSIDE RECORDS SUMMARY | 2024-06-17 06:40 | XMS_ITS | Encounter Summary ---
Author Organization [facility] Address [address] [place] [address] Care Team Providers Care Steamer Operator Name Role Phone Agustin Mix Primary Care Provider + Encounter Details Date Type Department Care Team (Late st Contact Info) Description 06/16/2024 Telephone [facility] Transplant Department [address] [place] [address] Isidra Sanchez RN [address] [place] [address] Social History Tobacco Use Types Packs/Day Years [...] encounter Miscellaneous Notes * Telephone Encounter - Isidra Sanchez RN - 06/16/2024 3:13 PM EST Called epifanio and told her that Edward's potassium was normal . She states he has not been taking his kayexalate for months. I told her that he can stop the kayexalate since his potassium is normal. She would like to continue his once a month labs to monitor his numbers. She will await a phone call if he needs to restart the medication. She states that he has been doing very well and looks great. ----- Message from Anushka Acevedo sent at 06/16/2024 11:27 AM EST ----- [place] - wanting to know regarding kayexalate [phone] Ep[facility]anio Anushka documented in this encounter Plan of Treatment Upcoming Encounters Date Type Department Care Team (Late st Contact Info) Description 08/01/2024 11:30 AM EDT Follow-Up [facility] Liver Transplant Services [address] [place], [place] [phone] Dylan Phelps MD [address] [place] [address] documented as of this encounter Visit Diagnoses Not on filedocumented in this encounter Care Teams Steamer Operator Relationship Specialty Start Date End Date Agustin Mix 230 [place] [address] PCP - General Internal Medicine 04/15/17 documented as of this encounter
--- OUTSIDE RECORDS SUMMARY | 2024-06-17 06:40 | XMS_ITS | Encounter Summary ---
Author Organization [employer] [facility] Address [address] [place] [address] 7t [place] [address] Care Team Providers Care Razor Grinder Name Role Phone Agustin Marrero MD Primary Care Provide r Encounter Details Date Type Department Care Team (Latest Contact Info) Description 05/23/2019 Abstract [facility] CONVERSIONS Dental, Provider, DDS Social History Tobacco [...] Care Team ( st Contact Info) Description 06/24/2024 9:00 AM EST Clinical Support [facility] MEDICINE [address] [place] [address] Shwetha Collado RN 505 [place] [address] 07/05/2024 10:00 AM EDT Office Visit [facility] MEDICINE 230 [place] [address] Agustin Marrero MD 230 [place] [address] 11/16/2024 10:00 AM EDT Office Visit [facility] ADULT DENTAL [address] [place] [address] Catherine Antonio [address] [place] [address] documented as of this encounter Visit Diagnoses Not on filedocumented in this encounter Care Teams Razor Grinder Relationship Specialty Start Date End Date Agustin Marrero MD [address] [place] [address] [place] [address] PCP - General Internal Medicine 01/25/14 [facility] 06/13/16 documented as of this encounter
--- OUTSIDE RECORDS SUMMARY | 2024-06-17 06:40 | XMS_ITS | Encounter Summary ---
Author Organization [facility] Address [address] [place] [address] Care Team Providers Care Law Professor Name Role Phone Agustin Mix Primary Care Provider + Encounter Details Date Type Department Care Team (Late st Contact Info) Description 01/21/2017 Transplant Conversio n Encounter [facility] Health Information Management [address] [place] [address] Provider, [facility] Social History Tobacco Use Types Packs/Day Years [...] Info) Description 08/01/2024 11:30 AM EDT Follow-Up [facility] Liver Transplant Services [address] [place] [address] Dylan Phelps MD [address] [place] [address] documented as of this encounter Visit Diagnoses Not on filedocumented in this encounter Additional Health Concerns Infection Onset Date Last Indicated Resolved Time 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
--- OUTSIDE RECORDS SUMMARY | 2024-06-17 06:40 | XMS_ITS | Encounter Summary ---
Author Organization [employer] Address [address] [place] [address] 7t [place] [address] Care Team Providers Care Automatic Spreader Operator Name Role Phone Agustin Marrero MD Primary Care Provide r Encounter Details Date Type Department Care Team (Latest Contact Info) Description 05/31/2024 Travel Social History Tobacco Use Types Packs/Day Years [...] Description 06/24/2024 9:00 AM EST Clinical Support [facility] MEDICINE [address] [place] [address] Shwetha Collado, KATALINA [address] [place] [address] 07/05/2024 10:00 AM EDT Office Visit [facility] MEDICINE [address] [place] [address] Agustin Marrero MD 230 [place] [address] 11/16/2024 10:00 AM EDT Office Visit [facility] ADULT DENTAL 230 [place] [address] Catherine Antonio [address] [place] [address] documented as of this encounter Visit Diagnoses Not on filedocumented in this encounter Additional Health Concerns Assessment Noted Time PHQ-9 Depression Total Score: 0 12/03/19 10:31 AM EDT documented as of this encounter Care Teams Automatic Spreader Operator Relationship Specialty Start Date End Date Agustin Marrero MD [address] [place] [address] PCP - General Internal Medicine 01/25/14 [facility] 06/13/16 documented as of this encounter
--- OUTSIDE RECORDS SUMMARY | 2024-06-17 06:40 | XMS_ITS | Encounter Summary ---
Author Organization [employer] Address [address] [place] [address] 7t [place] [address] Care Team Providers Care Icd 9 Coder Name Role Phone Agustin Marrero MD Primary Care Provide r Reason for Visit * Reason Comments Med Refill Encounter Details Date Type Department Care Team ([facility] st Contact Info) Description 10/28/2023 Refill [facility]INE 230 [place], [place] [phone] Lela Wu MD 230 [place], [place] [phone] Primary insomnia Social History Tobacco Use Types [...] Description 06/24/2024 9:00 AM EST Clinical Support [facility]IC[facility] [address] [place] [address] Shwetha Collado RN 505 [place] [address] 07/05/2024 10:00 AM EDT Office Visit [facility] MED[facility] [address] [place] [address] Agustin Marrero MD [address] [place] [address] 11/16/2024 10:00 AM EDT Office Visit [facility] ADULT DENTAL [address] [place] [address] Catherine Antonio [address] [place] [address] documented as of this encounter Visit Diagnoses Diagnosis Primary insomnia Persistent disorder of initiating or maintaining sleep documented in this encounter Additional Health Concerns Assessment Noted Time PHQ-9 Depression Total Score: 5 06/16/19 24 9:35 AM EST documented as of this encounter Care Teams Icd 9 Coder Relationship Specialty Start Date End Date Agustin Marrero MD [address] [place] [address] PCP - General Internal Medicine 01/25/14 [facility] 06/13/16 documented as of this encounter
--- OUTSIDE RECORDS SUMMARY | 2024-06-17 06:40 | XMS_ITS | Encounter Summary ---
Author Organization [facility] Address [address] [place] [address] Care Team Providers Care Occupational Safety And Health Manager Name Role Phone Agustin Mix Primary Care Provider + Reason for Visit * Reason Onset Date Comments Results 05/25/2024 Encounter Details Date Type Department Care Team (Late st Contact Info) Description 05/25/2024 Abstract [facility] Transplant Department [address] [place] [address] Dylan Phelps MD [address] [place] [address] Social History Tobacco Use Types Packs/Day Years [...] Info) Description 08/01/2024 11:30 AM EDT Follow-Up [facility] Liver Transplant Services [address] [place] [address] Dylan Phelps MD [address] [place] [address] documented as of this encounter Procedures * Due to [place] [employer] law, this organization might not be sharing negative HIV tests. Procedure Name Priority Date/Time Associated Diagnosis Comments AFP TUMOR MARKER, OUTSIDE LAB Routine 05/20/2024 7:46 AM EST documented in this encounter Results * Due to [place] state law, this organization might not be sharing negative HIV tests. * AFP Tumor Marker, Outside Lab (05/20/2024 7:46 AM EST) Alpha Fetoprotein, Tumor Marker 1.2 [facility] Blood Structure of peripheral vein / Unknown 05/20/2024 7:46 AM EST us Dylan Phelps MD LAB BLOOD ORDERABLES Final Re sult [facility] [address] [place] [address] documented in this encounter Visit Diagnoses Not on filedocumented in this encounter Care Teams Occupational Safety And Health Manager Relationship Specialty Start Date End Date Agustin Mix [address] [place] [address] PCP - General Internal Medicine 04/15/17 documented as of this encounter
--- OUTSIDE RECORDS SUMMARY | 2024-06-17 06:40 | XMS_ITS | Encounter Summary ---
Author Organization [facility] Address [address] [place] [address] 7t [place] [address] Care Team Providers Care Bioengineer Name Role Phone Agustin Marrero MD Primary Care Provide r Encounter Details Date Type Department Care Team (Latest Contact Info) Description 09/06/2018 Abstract [facility] CONVERSIONS Dental, Provider, DDS Social History Tobacco [...] Description 06/24/2024 9:00 AM EST Clinical Support [facility] MEDICINE [address] [place] [address] Shwetha Collado RN [address] [place] [address] 07/05/2024 10:00 AM EDT Office Visit [facility] MEDICINE [address] [place] [address] Agustin Marrero MD [address] [place] [address] 11/16/2024 10:00 AM EDT Office Visit [facility] ADULT DENTAL [address] [place] [address] Catherine Antonio [address] [place] [address] documented as of this encounter Visit Diagnoses Not on filedocumented in this encounter Care Teams Bioengineer Relationship Specialty Start Date End Date Agustin Marrero MD [address] [place] [address] [place] [address] PCP - General Internal Medicine 01/25/14 [facility] 06/13/16 documented as of this encounter
--- OUTSIDE RECORDS SUMMARY | 2024-06-17 06:40 | XMS_ITS | Encounter Summary ---
Author Organization [employer] Address [address] [place] [address] 7t [place] [address] Care Team Providers Care Telephone Directory Deliverer Name Role Phone Agustin Marrero MD Primary Care Provide r Reason for Visit * Reason Comments Med Refill Encounter Details Date Type Department Care Team ([facility] st Contact Info) Description 10/20/2023 Refill [facility] MED & PEDS [address] [place], [place] [phone] Agustin Marrero MD [address] [place] [address] Chronic midline low back pain without sciatica [...] 9:00 AM EST Clinical Support [facility] MEDICINE [address] [place] [address] Shwetha Collado RN 505 [place] [address] 07/05/2024 10:00 AM EDT Office Visit [facility] MEDICINE [address] [place] [address] Agustin Marrero MD [address] [place] [address] 11/16/2024 10:00 AM EDT Office Visit [facility] ADULT DENTAL [address] [place] [address] Catherine Anotnio [address] [place] [address] documented as of this encounter Visit Diagnoses Diagnosis Chronic midline low back pain without sciatica documented in this encounter Additional Health Concerns Assessment Noted Time PHQ-9 Depression Total Score: 5 06/16/19 24 9:35 AM EST documented as of this encounter Care Teams Telephone Directory Deliverer Relationship Specialty Start Date End Date Agustin Marrero MD [address] [place] [address] PCP - General Internal Medicine 01/25/14 [facility] 06/13/16 documented as of this encounter
--- OUTSIDE RECORDS SUMMARY | 2024-06-17 06:40 | XMS_ITS | Encounter Summary ---
Author Organization [employer] Address [address] [place] [address] 7t [place] [address] Care Team Providers Care Java Lead Architect Name Role Phone Agustin Marrero MD Primary Care Provide r Reason for Visit * Reason Onset Date Comments Med Refill 03/01/2024 Encounter Details Date Type Department Care Team ([facility] st Contact Info) Description 03/01/2024 Telephone [facility] MEDICINE [address] [place], [place] [phone] Agustin Marrero MD [address] [place] [address] Med Refill Social History Tobacco Use Types [...] 2:22 PM EST Medication was sent to [facility][id number] on 02/29/24. * Telephone Encounter - Manjeet Mclaughlin - 03/01/2024 2:17 PM EST TC from pt requesting medication refill. Medications needing refill : 1- zolpidem (Ambien) 10 MG tablet To be sent to: [facility]/pharmacy #[id number] documented in this encounter Plan of Treatment Upcoming Encounters Date Type Department Care Team (Late st Contact Info) Description 06/24/2024 9:00 AM EST Clinical Support [facility] MEDICINE [address] [place] [address] Shwetha Collado RN [address] [place] [address] 07/05/2024 10:00 AM EDT Office Visit [facility] MEDICINE [address] [place] [address] Agustin Marrero MD [address] [place] [address] 11/16/2024 10:00 AM EDT Office Visit [facility] ADULT DENTAL [address] [place], [place] [phone] Catherine Antonio [address] [place], [place] [phone] documented as of this encounter Visit Diagnoses Not on filedocumented in this encounter Additional Health Concerns Assessment Noted Time PHQ-9 Depression Total Score: 0 12/03/19 10:31 AM EDT documented as of this encounter Care Teams Java Lead Architect Relationship Specialty Start Date End Date Agustin Marrero MD [address] [place], [place] [phone] PCP - General Internal Medicine 01/25/14 [facility] 06/13/16 documented as of this encounter
--- OUTSIDE RECORDS SUMMARY | 2024-06-17 06:40 | XMS_ITS | Encounter Summary ---
Author Organization [employer] Address [address] [place] [address] 7t [place] [address] Care Team Providers Care Public Health Veterinarian Name Role Phone Agustin Marrero MD Primary Care Provide r Reason for Visit * Reason Onset Date Comments Med Refill 06/07/2024 Encounter Details Date Type Department Care Team (Late st Contact Info) Description 06/07/[address] [facility] MEDICINE [address] [place], [place] [phone] Agustin Marrero MD 230 [place] [address] Chronic midline low back pain without sciatica [...] encounter Miscellaneous Notes * Telephone Encounter - Shwetha Collado RN - 06/07/2024 4:00 PM EST TC to pt via S ID# [id number]. Pt came to chronic pain group on 05/31/24 but left, staying groups make him feel nervous. SURVEY RESEARCH PROFESSOR [place] r/s to 06/24/24 @9am at [facility]. * Telephone Encounter - Manjeet Mclaughlin - 06/07/2024 3:28 PM EST TC from pt requesting medication refill. Medications needing refill : traMADol (Ultram) 50 MG tablet To be sent to: [facility]/pharmacy #[id number] documented in this encounter Plan of Treatment Upcoming Encounters Date Type Department Care Team (Late st Contact Info) Description 06/24/2024 9:00 AM EST Clinical Support [facility] MEDICINE [address] [place], [place] [phone] Shwetha Collado RN 505 [place] [address] 07/05/2024 10:00 AM EDT Office Visit [facility] MEDICINE [address] [place] [address] Agustin Marrero MD 230 [place] [address] 11/16/2024 10:00 AM EDT Office Visit [facility] ADULT DENTAL [address] [place] [address] Paco, Catherine [address] [place] [address] documented as of this encounter Visit Diagnoses Diagnosis Chronic midline low back pain without sciatica documented in this encounter Additional Health Concerns Assessment Noted Time PHQ-9 Depression Total Score: 0 12/03/19 24 10:31 AM EDT documented as of this encounter Care Teams Public Health Veterinarian Relationship Specialty Start Date End Date Agustin Marrero MD [address] [place] [address] PCP - General Internal Medicine 01/25/14 [facility] 06/13/16 documented as of this encounter
--- OUTSIDE RECORDS SUMMARY | 2024-06-17 06:40 | XMS_ITS ---
Author [facility] [place] Address [address] [facility] [place] [address] Care Team Providers Care Mixed Animal Veterinarian Name Role Phone Nura Connelly MD, Agustin Primary Care Provide r Unavailable Yovanny Long Unavailable [phone] REASON FOR VISIT last visit pcp 12/31/23, [...] Twice a day for 30 days Active Tacrolimus 1 MG as directed Orally Active Magnesium 400 MG as directed Orally Active Omeprazole 20 MG 1 capsule 1/2 to 1 h our before morning meal Orally Once a day Active Vitamin D3 182550 UNIT/GM as directed Active Losartan Potassium 25 [...] nsmoker Encounters Encounter Location Date Provider Diagnosis [facility] [address] [place] [address] 05/26/2024 Yovanny Long Onychomycosis B35.1 ; Pain [...] Up: 2 Months, Reason: Provider Name:Yovanny Long, 06/17/2024 10:00:00 AM, [address] [place] [address], [place], [address], Procedure Notes * Category Sub-Category Detail Notes [...] of a nail nipper and/or dremel-type grinder hand, to a more viable healthy nail plate [...] to maintain effectiveness in symptomatic relief - 59882 Progress Notes * Edward JONDOB:[birth year] (59 yo M)Acc No.[id number]:05/26/2024 Progress Note Patient:?Salome JON Provider:?Yovanny Long D.P.M. :1965???Age:59 Y???Sex:Male New e:05/26/2024 Address:[address] [place], [place] [address] Pcp:Agustin Connelly MD Subjective: * Chief Complaints: * ???1. Last visit pcp 4. 2. Painful nail(s) aggravated by shoes causing difficulty standing/walking. * ROS:?General/Constitutional:?Nausea?denies.?Vomiting?denies.?Hunger Thirst?denies.?Loss appetite?denies.?Chills?denies.?Fatigue?denies.?Fever?denies.?Night Sweats?denies.?Unexplained weight loss?denies.?Unexplained [...] disorder?denies.?Numbness?denies.?Balance trouble?denies.?Confusion?denies.?Fainting/blackouts?denies.?Tingling?denies.?Tr emors?denies.? * Medical History:? * Family History:?Mother: poornima topete.?Father: .? * Social History:?Tobacco Use:?Tobacco use other than smoking?Are you an other tobacco user??No ?Tobacco Control (Standard)?Tobacco use:?Nonsmoker ?Additional Findings: Tobacco non-user?Current nonsmoker * Medications:?Taking Multivit skinner - Tablet 1 tablet Orally Once a day , Taking Magnesium 400 MG Capsule as directed Orally , Taking Omeprazole 20 MG Capsule Delayed Release 1 capsule 1/2 to 1 hour before morning meal Orally Once a day , Taking Tacrolimus 1 MG Capsule as directed Orally , Taking Vitamin D3 387006 UNIT/GM Powder as directed , Taking Losartan Potassium 25 MG Tablet 1 tablet Orally Once a day , Taking Ammonium Lactate 12 % Cream 1 application Externally to affected areas of dry skin to feet except for between the toes Twice a day , Medication List reviewed and reconciled with the patient Objective: * Vitals:? * Examination: ???CQM Exceptions:: ?Hemoglobin A1c not performed?Reason:?No reason specified?Ophthalmology Referral: ?DIABETES EYE EXAM?Diabetic Retinopathy Screening:?Yes 08/2023 ?Retinal Screening Performed:?Yes ?Findings of Diabetic Eye Exam:?no retinopathy 08/2023?General Examination: ?GENERAL APPEARANCE:?Reveals a pleasant, alert, well-nourished, [...] tingling, B/L.?DEEP TENDON REFLEXES:?Achilles, 2/4, B/L.?Vascular: ?DP PULSES (B):?2/4, B/L.?PT PULSES (B):?2/4, B/L.?CAPILLARY FILL TIME:?immediate, all digits, B/L.?TROPHIC CONDITION-TEXTURE/ELASTICITY/TURGOR/HAIR GROWTH (B):?normal, B/L.?TEMPERTURE GRADIENT (C):?warm to cool, proximal to distal, B/L.?PIGMENTATION:?normal, B/L.?EDEMA (C):?absent, B/L.?Dermatologic: ?SKIN FINDINGS:?Skin exam reveals normal texture, elasticity, and turgor. There are no masses. The interspaces are clear , Skin shows sign(s) of, dryness, scaling, in a stocking fashion, no fissure(s) present, B/L.?Orthopedic: ?MUSCLE STRENGTH:?5/5 all groups in a symmetrical fashion , B/L.?Nails: ?NAILS are:?Elongated, overgrown, dystrophic, lytic, greater than 3mm thick, discolored and friable with crumbly malodorous subungual debris, with pain on palpation, TA, T1, T2, T3, T4, T5, T6, T7, T8, T9.? Assessment: * Assessment: 1.?Pain in right toe(s) - M7 9.674???2.?Onychomycosis - B35.1 (Primary)???3.?Pain in left toe(s) - M79.675??? Plan: * Treatment: * Procedures:?Debride Nail 6-10:?Nail debridement?Due to the clinical pathology outlined in the [...] of a nail nipper and/or dremel-type grinder hand, to a more viable healthy nail plate [...] to maintain effectiveness in symptomatic relief - 75120.? * Procedure Codes:?71738 DEBRI DE NAIL, 6 OR MORE * Follow Up:?2 Months * Images: * The named appointment provid er may or may not be the originator of this progress note, and it is not deemed complete until electronically signed by the appointment provider. Sign off status: Pending * Provider:?Yovanny Long D.P.M. Date:?09/2024 Generated for Francisco reagan/Eloina/eTransmitting on:?06/17/2024 06:39 AM EST History and Physical Notes * [...]
--- OUTSIDE RECORDS SUMMARY | 2024-06-17 06:40 | XMS_ITS | Encounter Summary ---
Author Organization [employer] Address [address] [place] [address] 7t [place] [address] Care Team Providers Care Oil Field Pipeline Supervisor Name Role Phone Agustin Marrero MD Primary Care Provide r Reason for Visit * Reason Comments Med Refill Encounter Details Date Type Department Care Team ([facility] st Contact Info) Description 11/02/2023 Refill [facility] MEDICINE [address] [place], [place] [phone] Lela Wu MD [address] [place], [place] [phone] Primary insomnia Social History Tobacco Use Types [...] Description 06/24/2024 9:00 AM EST Clinical Support [facility] MEDICINE [address] [place] [address] Shwetha Collado RN 505 [place] [address] 07/05/2024 10:00 AM EDT Office Visit [facility] MEDICINE [address] [place] [address] Agustin Marrero MD [address] [place] [address] 11/16/2024 10:00 AM EDT Office Visit [facility] ADULT DENTAL [address] [place] [address] Catherine Antonio [address] [place] [address] documented as of this encounter Visit Diagnoses Diagnosis Primary insomnia Persistent disorder of initiating or maintaining sleep documented in this encounter Additional Health Concerns Assessment Noted Time PHQ-9 Depression Total Score: 5 06/16/19 24 9:35 AM EST documented as of this encounter Care Teams Oil Field Pipeline Supervisor Relationship Specialty Start Date End Date Agustin Marrero MD [address] [place] [address] PCP - General Internal Medicine 01/25/14 [facility] 06/13/16 documented as of this encounter
--- OUTSIDE RECORDS SUMMARY | 2024-06-17 06:40 | XMS_ITS | Encounter Summary ---
Author Organization [facility] Address [address] [place] [address] Care Team Providers Care Emergency Management System Director Name Role Phone Agustin Mix Primary Care Provider + Encounter Details Date Type Department Care Team (Late st Contact Info) Description 01/13/2020 Orders Only [facility] 2 Rad ACT 1 [address] [place] [address] Pawel Sanchez MD [address] [place] [address] Social History Tobacco Use Types Packs/Day Years [...] Info) Description 08/01/2024 11:30 AM EDT Follow-Up [facility] Liver Transplant Services [address] [place], [place] [phone] Dylan Phelps MD [address] [place] [address] documented as of this encounter Visit Diagnoses Not on filedocumented in this encounter Additional Health Concerns Infection Onset Date Last Indicated Resolved Time COVID-19 - Suspected infection 03/05/2020 03/17/2020 03/17/2020 7:55 PM EST COVID-19 - Confirmed infection 05/01/2020 05/07/2020 06/01/2020 5:06 PM EST COVID-19 - Suspected infection 05/10/2020 05/10/2020 05/24/2020 10:34 PM EST documented as of this encounter Care Teams Emergency Management System Director Relationship Specialty Start Date End Date Agustin Mix [address] [place] [address] PCP - General Internal Medicine 04/15/17 documented as of this encounter
--- OUTSIDE RECORDS SUMMARY | 2024-06-17 06:40 | XMS_ITS | Encounter Summary ---
Author Organization [facility] Address [address] [place] [address] 7t [place] [address] Care Team Providers Care Pulp Grinder Feeder Name Role Phone Agustin Marrero MD Primary Care Provide r Reason for Visit * Reason Onset Date Comments Med Refill 10/16/2022 Encounter Details Date Type Department Care Team ([facility] st Contact Info) Description 10/16/2022 Telephone [facility] MEDICINE [address] [place], [place] [phone] Agustin Marrero MD [address] [place] [address] Med Refill Social History Tobacco Use Types [...] Description 06/24/2024 9:00 AM EST Clinical Support [facility] MEDICINE [address] [place] [address] Shwetha Collado, KATALINA [address] [place] [address] 07/05/2024 10:00 AM EDT Office Visit [facility] MEDICINE [address] [place] [address] Agustin Marrero MD [address] [place] [address] 11/16/2024 10:00 AM EDT Office Visit [facility] ADULT DENTAL [address] [place] [address] Catherine Antonio [address] [place] [address] documented as of this encounter Visit Diagnoses Not on filedocumented in this encounter Care Teams Pulp Grinder Feeder Relationship Specialty Start Date End Date Agustin Marrero MD [address] [place] [address] PCP - General Internal Medicine 01/25/14 [facility] 06/13/16 documented as of this encounter
--- OUTSIDE RECORDS SUMMARY | 2024-06-17 06:40 | XMS_ITS | Patient Health Record ---
Author [facility] [place] Address [address] [facility] [place] [address] Care Team Providers Care Development Engineer Name Role Phone Nura Connelly MD, Agustin Primary Care Provide r Unavailable Yovanny Long Unavailable [phone] Reason For Referral No Information Medications Medication SIG (Take, Route, Frequency, Duration) Notes Start Date End Date Status Ammonium Lactate 12 % 1 application Exte rnally to affected areas of dry skin to feet except for between the toes Twice a day for 30 days Active Vitamin D3 129434 UNIT/GM as directed Active Losartan Potassium 25 MG 1 tablet Orally Once a day Active Omeprazole 20 MG 1 capsule 1/2 to 1 h our before morning meal Orally Once a day Active Tacrolimus 1 MG as directed Orally Active Magnesium 400 MG as directed Orally Active Multivitamin - 1 tablet Orally Once a [...] Ordered Date Performed Result Body Sit e 61783-PVEOQIV NAIL, 6 OR MORE 03/10/2024 N/A Encounters Encounter [facility] Date [facility] [address] 03/10/2024 Yovanny Long Onychomycosis B35.1 ; Xerosis of skin L85.3 ; Pain in right toe(s) M79.674 and Pain in left toe(s) M79.675 [facility] [place] [address] [place] [address] 03/10/2024 Yovanny Long [facility] [place] [address] [place] [address] 05/26/2024 Yovanny Long Assessments Encounter Date Diagnosis (ICD Code) Assessment Notes Treatment Notes Treatment Clinical Notes Section Notes 03/10/2024 Xerosis of skin (ICD-10 - L85.3) Application of [place]-Soothe skin lotion to his feet 03/10/2024 Onychomycosis (ICD-10 - B35.1) 03/10/2024 Pain in right toe(s) (ICD-10 - M79.674) 03/10/2024 Pain in left toe(s) (ICD-10 - M79.675) 05/26/2024 Other Plan Of Treatment Pending Test Test Name Order Date 13968-[id number] NAIL, 6 OR MORE 03/10/2024 Next Appt Details Provider Name:Yovanny Long, 06/17/2024 10:00:00 AM, [address] [facility], [place], [address], Insurance Providers Payer Name Payer Address Payer Phone Subscriber Number Group Number Insured Name Patient Relationship to Insured Coverage Start Date Coverage End Date [facility] [employer] Claims [address] [place] [id number] Edward Jon Self - patient is the insured Medical (General) History Medical History History ICD Code Back,Hip,and Knee pain Broken bones Cataracts covid-19 Dementia Depression Diabetic Gall bladder problems Hiatal hernia High Blood Pressure Liver disease Psychiatric disorder
--- OUTSIDE RECORDS SUMMARY | 2024-06-17 06:40 | XMS_ITS | Encounter Summary ---
Author Organization [employer] [facility] Address [address] [place] [address] 7t h Floor [address] Care Team Providers Care Network Lead Name Role Phone Agustin Marrero MD Primary Care Provide r Encounter Details Date Type Department Care Team (Latest Contact Info) Description 06/18/2021 Abstract [facility] CONVERSIONS Dental, Provider, DDS Social History Tobacco [...] Description 06/24/2024 9:00 AM EST Clinical Support [facility] MEDICINE [address] [place] [address] Shwetha Collado RN [address] [place] [address] 07/05/2024 10:00 AM EDT Office Visit [facility] MEDICINE [address] [place] [address] Agustin Marrero MD 230 [place] [address] 11/16/2024 10:00 AM EDT Office Visit [facility] ADULT DENTAL [address] [place] [address] Catherine Antonio [address] [place] [address] documented as of this encounter Visit Diagnoses Not on filedocumented in this encounter Care Teams Network Lead Relationship Specialty Start Date End Date Agustin Marrero MD [address] [place] [address] PCP - General Internal Medicine 01/25/14 [facility] 06/13/16 documented as of this encounter
--- OUTSIDE RECORDS SUMMARY | 2024-06-17 06:40 | XMS_ITS | Encounter Summary ---
Author Organization [facility] Address [address] [place] [address] Care Team Providers Care Commercial Photographer Name Role Phone Agustin Mix Primary Care Provider + Encounter Details Date Type Department Care Team (Late st Contact Info) Description 06/28/2020 Telephone [facility] Central Scheduling Department [address] [place] [address] Telephone Intake, Staff Social History Tobacco Use [...] and can be reached at phone number [phone]. Thank you documented in this encounter Plan of Treatment Upcoming Encounters Date Type Department Care Team (Late st Contact Info) Description 08/01/2024 11:30 AM EDT Follow-Up [facility] Liver Transplant Services [address] [place] [address] [phone] Dylan Phelps MD [address] [place], [place] [phone] documented as of this encounter Visit Diagnoses Not on filedocumented in this encounter Care Teams Commercial Photographer Relationship Specialty Start Date End Date Agustin Mix [address] [place] [address] PCP - General Internal Medicine 04/15/17 documented as of this encounter
--- OUTSIDE RECORDS SUMMARY | 2024-06-17 06:40 | XMS_ITS | Encounter Summary ---
Author Organization [employer] Address [address] [place] [address] 7[address] [place] [address] Care Team Providers Care Case Therapist Name Role Phone Agustin Marrero MD Primary Care Provide r Reason for Visit * Reason Onset Date Comments Med Refill 03/01/2024 Encounter Details Date Type Department Care Team ([facility] st Contact Info) Description 03/01/2024 Telephone [facility] [address] [place], [place] [phone] Agustin Marrero MD [address] [place] [address] Med Refill Social History Tobacco Use Types [...] 03/01/2024 2:24 PM EST Received fax from [facility] requesting script clarification need directions. * Telephone Encounter - Manjeet Mclaughlin - 03/01/2024 2:21 PM EST TC from pt requesting medication refill. Medications needing refill : traMADol (Ultram) 50 MG table To be sent to: [facility]/pharmacy #[id number] documented in this encounter Plan of Treatment Upcoming Encounters Date Type Department Care Team (Late st Contact Info) Description 06/24/2024 9:00 AM EST Clinical Support [facility] [address] [place] [address] Shwetha Collado RN [address] [place] [address] 07/05/2024 10:00 AM EDT Office Visit [facility] [address] [place] [address] Agustin Marrero MD [address] [place] [address] 11/16/2024 10:00 AM EDT Office Visit [facility] [address] [place] [address] Catherine Antonio [address] [place] [address] documented as of this encounter Visit Diagnoses Not on filedocumented in this encounter Additional Health Concerns Assessment Noted Time PHQ-9 Depression Total Score: 0 12/03/19 10:31 AM EDT documented as of this encounter Care Teams Case Therapist Relationship Specialty Start Date End Date Agustin Marrero MD [address] [place] [address] PCP - General Internal Medicine 01/25/14 [facility] 06/13/16 documented as of this encounter
--- OUTSIDE RECORDS SUMMARY | 2024-06-17 06:40 | XMS_ITS ---
Author Organization [facility] Address [address] [facility] [place] [address] Care Team Providers Care Cripple Cutter Name Role Phone Nura Connelly MD, Agustin Primary Care Provide r Unavailable Yovanny Long Unavailable [phone] Medications Medication SIG (Take, Route, Frequency, Duration) Notes Start Date End Date Status Ammonium Lactate 12 % 1 application Exte rnally to affected areas of dry skin to feet except for between the toes Twice a day for 30 days Active Vitamin D3 917576 UNIT/GM as directed Active Losartan Potassium 25 MG 1 tablet Orally Once a day Active Omeprazole 20 MG 1 capsule 1/2 to 1 h our before morning meal Orally Once a day Active Tacrolimus 1 MG as directed Orally Active Magnesium 400 MG as directed Orally Active Multivitamin - 1 tablet Orally Once a day Active Encounters Encounter Location Date Provider Diagnosis [address] [address] 06/17/2024 Yovanny Long Plan Of Treatment Next Appt Details Provider Name:Yovanny Long, 06/17/2024 10:00:00 AM, [address] [place] [address], [id number], Progress Notes * Edward GOMEZDOB:[birth year] (59 yo M)Acc No.[id number]:06/17/2024 Progress Note Patient:?Salome GOMEZ sara Provider:?Yovanny Long D.P.M. :1965???Age:59 Y???Sex:Male New e:06/17/2024 Address:[address] [place] [address] [id number] Pcp:Agustin Connelly MD Subjective: * Chief Complaints: * ??? * Medical History:?Back,Hip,an d Knee pain, Broken bones, Cataracts, Covid-19, Dementia, Depression, Diabetic, Gall bladder problems, Hiatal hernia, High Blood Pressure, Liver disease, Psychiatric disorder. * Medications:?Taking Multivit skinner - Tablet 1 tablet Orally Once a day , Taking Magnesium 400 MG Capsule as directed Orally , Taking Omeprazole 20 MG Capsule Delayed Release 1 capsule 1/2 to 1 hour before morning meal Orally Once a day , Taking Tacrolimus 1 MG Capsule as directed Orally , Taking Vitamin D3 012375 UNIT/GM Powder as directed , Taking Losartan Potassium 25 MG Tablet 1 tablet Orally Once a day , Taking Ammonium Lactate 12 % Cream 1 application Externally to affected areas of dry skin to feet except for between the toes Twice a day Objective: * Vitals:? Assessment: Plan: * Treatment: * Images: * The named appointment provid er may or may not be the originator of this progress note, and it is not deemed complete until electronically signed by the appointment provider. Sign off status: Pending * Provider:?Yovanny Long D.P.M. Date:?05/22 Generated for Francisco reagan/Eloina/Samantha on:?06/17/2024 06:40 AM EST
--- OUTSIDE RECORDS SUMMARY | 2024-06-17 06:40 | XMS_ITS ---
Author Organization [facility] Address [address] [place] [address] Care Team Providers Care Anaesthetic Technician Name Role Phone Agustin Mix Primary Care Provider + Transplant Episode Liver Recipient [facility] ([place], [place]) - [facility] Organ Received: Liver Transplanted on 08/09/2019 Marked as Active Follow-up on 08/09/2019 Liver CoordinatorErika Bonds RN Phone: N/A Fax: N/A Email: N/A [place] Organ Diagnosis Organ Primary Contributory Liver Alcoholic [...] Coordinator N/A N/A N/A Dylan Phelps MD Medical Van Driver [phone] [email or web address] Sarai Diaz Referring Physician [phone] N/A Events Post-Transplant Pre-Transplant Admitted: 08/09/2019 Referred: 09/08/2016 Transplanted: 08/09/2019 Evaluation began: 7 Discharged: 08/25/2019 Committee: 10/24/2016 Center waitlisted: 7
--- OUTSIDE RECORDS SUMMARY | 2024-06-17 06:40 | XMS_ITS ---
Author Organization [facility] Address [address] [place] [address] Care Team Providers Care Compliance Lead Name Role Phone Nura Connelly MD, Agustin Primary Care Provide r Unavailable Yovanny Long Unavailable [phone] REASON FOR VISIT No Show Encounters Encounter Location Date Provider Diagnosis [facility] [address] [place] [address] 05/26/2024 Yovanny Long Plan Of Treatment Next Appt Details Provider Name:Yovanny Long, 06/17/2024 10:00:00 AM, [address] [facility], [place], [address], Progress Notes * Edward GOMEZDOB:[birth year] (59 yo M)Acc No.[id number]:05/26/2024 Patient:?Salome GOMEZ :1965???Age:59 Y???Sex:Male Address:[address] [place] [address] [address], [facility] [place] [address] * true * Date:? Generated for Printi ng/Fageorgeg/eTransmitting on:?06/17/2024 06:40 AM EST
--- OUTSIDE RECORDS SUMMARY | 2024-06-17 06:40 | XMS_ITS | Encounter Summary ---
Author Organization [facility] Address [address] [place] [address] Care Team Providers Care Assembler Ping Pong Table Name Role Phone Agustin Mix Primary Care Provider + Encounter Details Date Type Department Care Team (Late st Contact Info) Description 07/23/2023 Orders Only [facility] Interventional Radiology [address] [place] [address] Pawel Sanchez MD [address] [place] [address] Social History Tobacco Use Types Packs/Day Years [...] Info) Description 08/01/2024 11:30 AM EDT Follow-Up [facility] Liver Transplant Services [address] [place] [address] Dylan Phelps MD [address] [place] [address] documented as of this encounter Visit Diagnoses Not on filedocumented in this encounter Care Teams Assembler Ping Pong Table Relationship Specialty Start Date End Date Agustin Mix [address] [place] [address] PCP - General Internal Medicine 04/15/17 documented as of this encounter
--- OUTSIDE RECORDS SUMMARY | 2024-06-17 06:40 | XMS_ITS | Encounter Summary ---
Author Organization [employer] [facility] Address [address] [place] [address] 7t [place] [address] Care Team Providers Care Robot Technician Name Role Phone Agustin Marrero MD Primary Care Provide r Encounter Details Date Type Department Care Team (Latest Contact Info) Description 07/16/2020 Abstract [facility] CONVERSIONS Dental, Provider, DDS Social History Tobacco [...] Description 06/24/2024 9:00 AM EST Clinical Support [facility] [address] [place] [address] Shwetha Collado RN [address] [place] [address] 07/05/2024 10:00 AM EDT Office Visit [facility] [address] [place] [address] Agustin Marrero MD [address] [place] [address] 11/16/2024 10:00 AM EDT Office Visit [facility] ADULT DENTAL [address] [place] [address] Catherine Antonio [address] [place] [address] documented as of this encounter Visit Diagnoses Not on filedocumented in this encounter Care Teams Robot Technician Relationship Specialty Start Date End Date Agustin Marrero MD [address] [place] [address] PCP - General Internal Medicine 01/25/14 [facility] 06/13/16 documented as of this encounter
--- OUTSIDE RECORDS SUMMARY | 2024-06-17 06:40 | XMS_ITS | Encounter Summary ---
Author Organization [facility] Address [address] [place] [address] Care Team Providers Care Visual And Stock Associate Name Role Phone Agustin Mix Primary Care Provider + Encounter Details Date Type Department Care Team (Late st Contact Info) Description 01/01/2021 Orders Only [facility] Nuclear Medicine [address] [place] [address] Sreedhar Sotelo MD [address] [place], [place] [phone] Social History Tobacco Use Types Packs/Day Years [...] Info) Description 08/01/2024 11:30 AM EDT Follow-Up [facility] Liver Transplant Services [address] [place] [address] Dylan Phelps MD [address] [place] [address] documented as of this encounter Visit Diagnoses Not on filedocumented in this encounter Care Teams Visual And Stock Associate Relationship Specialty Start Date End Date Agustin Mix [address] [place] [address] PCP - General Internal Medicine 04/15/17 documented as of this encounter
--- OUTSIDE RECORDS SUMMARY | 2024-06-17 06:40 | XMS_ITS | Encounter Summary ---
Author Organization [facility] Address [address] [place] [address] Care Team Providers Care Security Systems Manager Name Role Phone Agustin Mix Primary Care Provider + Reason for Visit * Reason Onset Date Comments Results 05/24/2024 Encounter Details Date Type Department Care Team (Late st Contact Info) Description 05/24/2024 Abstract [facility] Transplant Department [address] [place] [address] Dylan Phelps MD [address] [place] [address] Social History Tobacco Use Types Packs/Day Years [...] Info) Description 08/01/2024 11:30 AM EDT Follow-Up [facility] Liver Transplant Services [address] [place] [address] Dylan Phelps MD [address] [place] [address] documented as of this encounter Procedures * Due to [facility] law, this organization might not be sharing negative HIV tests. Procedure Name Priority Date/Time Associated Diagnosis Comments LIVER POST EXTERNAL PANEL Routine 05/20/2024 7:36 AM EST documented in this encounter Results * Due to [place] state law, this organization might not be sharing negative HIV tests. * LIVER POST EXTERNAL PANEL (05/20/2024 7:36 AM EST) Tacrolimus, Highly Sensitive 3.6 [facility] Sodium 139 mmol/L [facility] Potassium 4.7 [facility] Chloride 108 [facility] Carbon Dioxide 25 [facility] Glucose 156 [facility] BUN 19 mg/dL [facility] Creatinine 1.01 mg/dL [facility] Calcium 9.6 mg/dL [facility] Total Protein 7.2 g/dL [facility] Albumin 4.4 g/dL [facility] Bilirubin, Total 0.7 mg/dL [facility] Alkaline Phosphatase 123 U/L [facility] AST 38 U/L [facility] ALT 55 U/L [facility] Magnesium 1.70 mg/dL [facility] WBC 4.7 10*3/uL [facility] Hgb 13.7 [facility] Hematocrit 38.0 % [facility] Platelets 123 10*3/uL [facility] 05/20/2024 7:36 AM EST us Dylan Phelps MD LAB BLOOD ORDERABLES Final Re sult [facility] [address] [place] [address] documented in this encounter Visit Diagnoses Not on filedocumented in this encounter Care Teams Security Systems Manager Relationship Specialty Start Date End Date Agustin Mix [address] [place] [address] PCP - General Internal Medicine 04/15/17 documented as of this encounter
--- OUTSIDE RECORDS SUMMARY | 2024-06-17 06:40 | XMS_ITS | Encounter Summary ---
Author Organization [employer] Address [address] [place] [address] [address]t [place] [address] Care Team Providers Care Shovel Logger Name Role Phone Agustin Marrero MD Primary Care Provide r Encounter Details Date Type Department Care Team (Latest Contact Info) Description 06/07/2024 Travel Social History Tobacco Use Types Packs/Day [...] Description 06/24/2024 9:00 AM EST Clinical Support [facility] [address] [place] [address] Shewtha oCllado, KATALINA [address] [place] [address] 07/05/2024 10:00 AM EDT Office Visit [facility] [address] [place] [address] Agustin Marrero MD [address] [place] [address] 11/16/2024 10:00 AM EDT Office Visit [facility] [address] [place] [address] Catherine Antonio [address] [place] [address] documented as of this encounter Visit Diagnoses Not on filedocumented in this encounter Additional Health Concerns Assessment Noted Time PHQ-9 Depression Total Score: 0 12/03/19 10:31 AM EDT documented as of this encounter Care Teams Shovel Logger Relationship Specialty Start Date End Date Agustin Marrero MD [address] [place] [address] PCP - General Internal Medicine 01/25/14 [facility] 06/13/16 documented as of this encounter
--- OUTSIDE RECORDS SUMMARY | 2024-06-17 06:40 | XMS_ITS | Encounter Summary ---
Author Organization [facility] Address [address] [place] [address] [address] [place] [address] Care Team Providers Care Warp Dyeing Vat Tender Name Role Phone Agustin Marrero MD Primary Care Provide r Reason for Visit * Reason Comments Med Refill Encounter Details Date Type Department Care Team (Late st Contact Info) Description 05/14/2022 Refill [facility] [address] [place], [place] [phone] Agustin Marrero MD [address] [place] [address] Chronic midline low back pain without sciatica [...] Description 06/24/2024 9:00 AM EST Clinical Support [facility] [address] [place] [address] Shwetha Collado, RN [address] [place] [address] 07/05/2024 10:00 AM EDT Office Visit [facility] [address] [place] [address] Agustin Marrero MD [address] [place] [address] 11/16/2024 10:00 AM EDT Office Visit [facility] [address] [place] [address] Catherine Antonio [address] [place] [address] documented as of this encounter Visit Diagnoses Diagnosis Chronic midline low back pain without sciatica documented in this encounter Care Teams Warp Dyeing Vat Tender Relationship Specialty Start Date End Date Agustin Marrero MD [address] [place] [address] PCP - General Internal Medicine 01/25/14 [facility] 06/13/16 documented as of this encounter
--- OUTSIDE RECORDS SUMMARY | 2024-06-17 06:40 | XMS_ITS | Encounter Summary ---
Author Organization [employer] Address [address] [place] [address] [address] [place] [address] Care Team Providers Care Consultant Dietitian Name Role Phone Agustin Marrero MD Primary Care Provide r Encounter Details Date Type Department Care Team (Latest Contact Info) Description 05/31/2024 9:00 AM EST Clinical Support [facility] [address] [place] [address] Patricia Harrell RN Chronic midline low back pain without sciatica (Primary Dx) Social History Tobacco Use Types Packs/Day Years [...] AM EDT documented as of this encounter Progress Notes * Patricia Harrell RN - 05/31/2024 9:00 AM EST Pt arrived to chronic pain group today. He said he does not want to stay d/t groups make him feel nervous. Tramadol 50mg last filled 05/07/24, pt had 17 pills remaining, anticipated he would have 10. Medication is not over used by patient. UTOX completed. Negative for all substances: AMP, BAR, BUP, BZO, KRISTEL, FTY, MDMA, MET, MOP, MTD, OXY, PCP, TCA, THC. UTOX as expected. Patient to be scheduled for GAS FITTER HELPER visit moving forward. documented in this encounter Plan of Treatment Upcoming Encounters Date Type Department Care Team (Late st Contact Info) Description 06/24/2024 9:00 AM EST Clinical Support [address] [address] Shwetha Collado RN [address] [place] [address] 07/05/2024 10:00 AM EDT Office Visit [facility] [address] [place] [address] Agustin Marrero MD [address] [place] [address] 11/16/2024 10:00 AM EDT Office Visit [facility] ADULT [facility] [address] [place] [address] Catherine Antonio [address] [place] [address] documented as of this encounter Procedures Procedure Name Priority Date/Time Associated Diagnosis Comments POCT ZOË-14 URINE DRUG SCREEN Routine 05/31/2024 1:31 PM EST Chronic midline low back pain without sciatica documented in this encounter Results * POCT ZOË-14 Urine Drug Screen (05/31/2024 1:31 PM EST) Urine Urine specimen obtained by clean catch procedure / Unknown 05/31/2024 1:31 PM EST Patricia Sam RN - 05/31/2024 1:31 PM EST UTOX cup Lot#[id number] Exp. 01/12/26 Internal Pass Control Negative for all substances Agustin Connelly MD POINT OF CARE TEST EN TER/EDIT ORDERABLES Final Result documented in this encounter Visit Diagnoses Diagnosis Chronic midline low back pain without sciatica- Primary documented in this encounter Additional Health Concerns Assessment Noted Time PHQ-9 Depression Total Score: 0 12/03/19 10:31 AM EDT documented as of this encounter Care Teams Consultant Dietitian Relationship Specialty Start Date End Date Agustin Marrero MD [address] [place] [address] PCP - General Internal Medicine 01/25/14 [facility] 06/13/16 documented as of this encounter
--- OUTSIDE RECORDS SUMMARY | 2024-06-17 06:40 | XMS_ITS | Clinical Summary ---
Author Organization [employer] Address [address] [place] [address] [address] [place] [address] Care Team Providers Care Machine Clipper Name Role Phone Agustin Marrero MD Primary Care Provide r Allergies No known active allergies Medications NovoLOG FLEXPEN 100 UNIT/ML penIndications:Ty pe 2 diabetes mellitus without complication, with long-term current use of insulin ([facility]) Use Insulin as per sliding scale TID (BG 150-200mg/dL: 10 units, 201-250 : 12 units, 251-300: 14 units, 301-350: 16 units, 351-400 18 units, >400 20 units 15 mL Active Blood Glucose Monitoring Suppl ([facility] Imperial Lite) w/Device kit TEST 1 TIMES BY INTRADERMAL ROUTE EVERY DAY Active Continuous Blood Gluc Typer (FreeStyle Arvin 2 Taylor) device Active ferrous sulfate 325 (65 Fe) [...] OLINDA TABLETA TODOS LOS D CON LA STOCK RAISER Active naloxone (Narcan) 4 mg/0.1 mL nasal [...] complication, with long-term current use of insulin ([facility]) USE 1 EACH DIRECTED THREE TIMES EVERY [...] complication, with long-term current use of insulin ([facility]) USE DIRECTED EVERY 14 DAYS 2 each [...] complication, with long-term current use of insulin (CMS/HCC) TAKE 1 TABLET BY MOUTH EVERY DAY 90 tablet 1 024 Active FREESTYLE LITE test stripIndications: Type 2 diabetes mellitus without complications (CMS/HCC) USE TO TEST 3 TIMES DAILY 300 strip 3 024 Active Multiple Vitamin (Daily-Stacy Multivitamin) tablet Take 1 tablet by mouth every day 90 tablet 3 025 Active traMADol (Ultram) 50 MG tabletIndications :Chronic midline low back pain without sciatica Take 1 tablet (50 mg) by mouth every 8 (eight) hours if needed for severe pain. Take 1 tablet (50 mg) by mouth every 8 (eight) hours if needed for severe pain. Pt asking for an oval pill, not round please 84 tablet 025 Active zolpidem (Ambien) 10 MG tabletIndications :Primary insomnia TOME OILNDA TABLETA POR VIA ORAL TODOS LOS QUINONES AL ACOSTARSE CUANDO SEA NECESARIO 30 tablet 025 Active gabapentin (Neurontin) 300 MG capsuleIndication s:Chronic midline low back pain without sciatica TAKE 1 CAPSULE BY MOUTH TWICE A DAY 60 capsule 025 Active gabapentin (Neurontin) 300 MG capsuleIndication s:Chronic midline low back pain without sciatica TOME 1 CAPSULA POR VIA ORAL DOS VECES AL [place] 60 capsule 025 2024 Discontinued(R eorder (will not trigger notification to Pharmacy)) zolpidem (Ambien) 10 MG tabletIndications :Primary insomnia TOME OLINDA TABLETA POR VIA ORAL TODOS LOS QUINONES AL ACOSTARSE CUANDO SEA NECESARIO 30 tablet 025 2024 Discontinued(R eorder (will not trigger notification to Pharmacy)) traMADol (Ultram) 50 MG tabletIndications :Chronic midline low back pain without sciatica Take 1 tablet (50 mg) by mouth every 8 (eight) hours if needed for severe pain. Take 1 tablet (50 mg) by mouth every 8 (eight) hours if needed for severe pain. 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 ERCP 11/21/2022 at [facility] showed single severe biliary stricture found [...] CBD. 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 The stricture was post-surgical. A biliary sphinterotomy was performed. A temporary stent was placed in the CBP They recommended to repeat ERCP in 3 months to remove stent. Pt is already scheduled for 02/20/2023 for ENDOSCOPIC RETROGRADE CHOLANGIOPANCREATOGRAPHY WITH REMOVAL OF FOREIGN BODY(S)/STENT(S)/PANCREATIC DUCT(S) WITH POSSIBLE MODERATE SEDATION [19572 (CPT??)] Partial edentulism 01/14/2023 Hospital discharge follow-up [...] CBD. Pt is s/p ERCP 11/21/2022 at [facility] Impression: A single severe biliary stricture [...] and Mid back sebaceous cyst by Dr. Panaigua 04/16/2023 Assessment & Plan (02/12/2023 12:00 PM [...] local wound injections. He was seen by compensation specialist at [facility] who discussed that he needed someone [...] local wound injections. He was seen by compensation specialist at [facility] who discussed that he needed someone [...] was refer to the Pain Clinic at [facility] he has an appointment for 08/03/2022. [...] >400 20 units He was discharged from [facility] diabetes clinic due to non compliance. He isunder the care of [facility] given that he is a liver transplant patient, last seen 2024. Hgb A1c 04/05/2024: 7 from 7.4 Eye exam ordered previous visit Microalbumin 11/01/2020 was 43 , ordered today Foot check risk of zero Pt advised to: adhere to diabetic diet Previous visit pt was referred to Nurse Special and DE Plan: continue current regimen Pt [...] >400 20 units He was discharged from [facility] diabetes clinic due to non compliance. He isunder the care of [facility] given that he is a liver transplant patient, last seen 04/21/2023. Hgb A1c 12/03/2023: 7.4 from 7.1 Eye exam ordered previous visit Microalbumin 11/01/2020 was 43 Foot check risk of zero Pt advised to: adhere to diabetic diet Previous visit pt was referred to Nurse Special and DE Plan: continue current regimen Pt [...] >400 20 units He was discharged from [facility] diabetes [facility] due to non compliance. He isunder the care of [facility] given that he is a liver transplant patient, last seen 04/21/2023. Hgb A1c 06/16/2023: 7.1 Eye exam ordered previous visit Microalbumin 11/01/2020 was 43 Foot check risk of zero Pt advised to: adhere to diabetic diet Previous visit pt was referred to Nurse Special and DE Plan: continue current regimen Pt [...] >400 20 units He was discharged from [facility] diabetes clinic due to non compliance. He is supposed to be under the care of [facility] given that he is a liver transplant patient, last seen 08/01/2021. He had an appointment scheduled in August but he no showed. Today he tells me he will stay at [facility] Hgb A1c 02/12/2023 was 6.7 Eye exam ordered previous visit Microalbumin 11/01/2020 was 43 Foot check risk of zero Pt advised to: adhere to diabetic diet Previous visit pt was referred to Nurse Special and DE Plan: continue current regimen Pt [...] >400 20 units He was discharged from [facility] diabetes clinic due to non compliance. He is supposed to be under the care of [facility] given that he is a liver transplant patient, last seen 08/01/2021. He had an appointment scheduled in August but he no showed. Today he tells me he will stay at [facility] Hgb A1c 09/02/2021 was 6.5 Eye exam ordered previous visit Microalbumin 11/01/2020 was 43 Foot check risk of zero Pt advised to: adhere to diabetic diet Previous visit pt was referred to Nurse Special and DE Plan: continue current regimen check [...] >400 20 units He was discharged from [facility] due to non compliance He is now under the care of [facility] Endocr[facility]ology given that he is a liver transplant patient, last seen 08/01/2021 Hgb A1c 09/02/2021 was 6.5 Eye exam ordered previous visit Microalbumin 11/01/2020 was 43 Foot check risk of zero Pt advised to: adhere to diabetic diet Previous visit pt was referred to Nurse Special and DE Plan: continue current regimen check [...] >400 20 units He was discharged from [facility] diabetes clinic due to non compliance He is now under the care of [facility]ocr[facility]ology given that he is a liver transplant patient, last seen 08/01/2021 Hgb A1c 04/22/2021 was 6.2 Eye exam ordered previous visit Microalbumin 11/01/2020 was 43 Foot check risk of zero Pt advised to: adhere to diabetic diet Previous visit pt was referred to Nurse Special and DE Plan: continue current regimen check [...] the care of the liver clinic at [facility] Assessment & Plan (04/22/2022 8:26 AM EST): Pt here for a f/u 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 [...] Encounters Date Type Department Care Team Description 06/16/2024 Refill [facility] [address] [place] [address] Agustin Marrero MD Chronic midline low back pain without sciatica 06/07/2024 Travel 06/07/2024 Refill [facility] [address] [place] [address] Agustin Marrero MD Primary insomnia 06/07/2024 Refill [facility] [address] [place] [address] Agustin Marrero MD Chronic midline low back pain without sciatica 05/31/2024 9:00 AM EST Clinical Support [facility] [address] [place] [address] Patricia Harrell RN Chronic midline low back pain without sciatica (Primary Dx) 05/31/2024 Travel 05/17/2024 10:00 AM EST Office Visit [facility] [address] [place] [address] Lorraine Polk Dental plaque (Primary Dx); Dental calculus; Partial edentulism, unspecified edentulism class 05/13/2024 Refill [facility] [address] [place] [address] Agustin Marrero MD 05/11/2024 Telephone [facility] [address] [place] [address] Agustin Marrero MD Medication Question 05/05/2024 Refill [facility] [address], [place] [address] Agustin Marrero MD 05/03/2024 Refill [facility] [address], [place] [address] Agustin Marrero MD Primary insomnia 05/03/2024 Refill [facility] [address], [place] [address] Agustin Marrero MD Chronic midline low back pain without sciatica 04/25/2024 Refill [facility] [address], [place] [address] Natasha Wall MD Chronic midline low back pain without sciatica 04/14/2024 Telephone [facility] [address], [place] [address] Agustin Marrero MD Med Refill 04/05/2024 9:15 AM EST Office Visit [facility] [address], [place] [address] Agustin Marrero MD Type 2 diabetes mellitus without complication, with long-term current use of insulin (CMS/[facility]) (Primary Dx); Other male erectile dysfunction; Elevated serum creatinine; Chronic midline low back pain without sciatica; Primary insomnia 04/05/2024 Refill [facility] [address], [place] [address] Agustin Marrero MD Type 2 diabetes mellitus without complications (CMS/HCC) 04/05/2024 Travel 03/30/2024 Telephone [facility] [address], [place] [address] Agustin Marrero MD Chart Prep 03/29/2024 9:45 AM EST Office Visit [facility] [address], [place] [address] 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 I have fay sing 06/16/[address] you li [...] Description 06/24/2024 9:00 AM EST Clinical Support [facility] [address] [place] [phone] Shwetha Collado RN [address] [place] [address] 07/05/2024 10:00 AM EDT Office Visit [facility] [address] [place] [address] Agustin Marrero MD [address] [place] [phone] 11/16/2024 10:00 AM EDT Office Visit [facility] [address] [place] [address] Catherine Antonio [address] [place] [address] Health Maintenance Due Date Last Done Comments [...] Additional history exists Eye Exam 09/22/2024 09/22/2022, 06/08/2022, 09/22/2022, Additional history exists Dental X-Ray: Bitewings [...] exists Pneumococcal Vaccine: 50+ Years Completed 09/11/2022 Zoster Vaccines Completed 09/11/2022, 07/09/2022 [...] Chronic midline low back pain without sciatica PERIODIC ORAL EVALUATION - ESTABLISHED PATIENT Routine 05/17/2024 10:00 AM EST TOPICAL APPLICATION OF FLUORIDE VARNISH Routine 05/17/2024 10:00 AM EST ORAL HYGIENE INSTRUCTIONS Routine 05/17/2024 10:00 AM EST Dental plaque Dental calculus CASE PRESENTATION, DETAILED AND EXTENSIVE TREATMENT PLANNING Routine 05/17/2024 10:00 AM EST Full PROPHYLAXIS - ADULT Routine 05/17/2024 10:00 AM EST Dental plaque Dental calculus PSA, SCREEN Routine 04/06/2024 8:10 AM EST Other male erectile dysfunction COMPREHENSIVE METABOLIC PANEL Routine 04/06/2024 8:10 AM EST Type 2 diabetes mellitus without complication, with long-term current use of insulin (CMS/HCC) LIPID PANEL, STANDARD Routine 04/06/2024 8:10 AM EST Type 2 diabetes mellitus without complication, with long-term current use of insulin (CMS/HCC) ALBUMIN, RANDOM URINE W/CREATININE Routine 04/06/2024 8:10 AM EST Type 2 diabetes mellitus without complication, with long-term current use of insulin ([facility]) POCT GLYCATED HEMOGLOBIN, TOTAL Routine 04/05/2024 9:12 AM EST Type 2 diabetes mellitus without complication, with long-term current use of insulin ([facility]) POCT ZOË-14 URINE DRUG SCREEN Routine 03/29/2024 1:42 PM EST Chronic midline low back pain without sciatica BITEWINGS - 4 RADIOGRAPHIC IMAGES Routine 10/13/2023 11:00 AM EDT HM COLONOSCOPY Routine 06/28/2021 from Last 3 Months or Most Recently Relevant to Health Maintenance Results * POCT ZOË-14 Urine Drug Screen (05/31/2024 1:31 PM EST) Only the most recent of2 resultswithin the time period is included. Urine Urine specimen obtained by clean catch procedure / Unknown 05/31/2024 1:31 PM EST Patricia Sam RN - 05/31/2024 1:31 PM EST UTOX cup Lot#[id number] Exp. 01/12/26 Internal Pass Control Negative for all substances us Agustin Connelly MD POINT OF CARE TEST EN TER/EDIT ORDERABLES Final Result * PSA, Screen (04/06/2024 8:10 AM EST) PSA, Total 0.19 <0.05 - 4.0 ng/mL [facility] Comment:PSA methodology: Abb sriram Alialexity i ChemiluminescentMicroparticle Immunoassay (CMIA) Blood Venous blood specimen / Unknown 04/06/2024 8:10 AM EST 04/06/2024 11:51 AM EST Agustin Connelly MD LAB BLOOD ORDERABLES Final Result Performing Organization Address [facility] Co de Phone Number [facility] [address] [place] [phone] * (ABNORMAL) Albumin, Random Urine W/Creatinine (04/06/2024 8:10 AM EST) Creatinine, Urine 216.22 mg/dL [facility] Microalbumin Urine 68.0 mg/L [facility] Microalbum Creatinine Ratio Ur 31.4(H) <30 ug/mg cr [facility] Comment:Albumin/Creatinine R atio Reference Ranges: Normal: < 30 ug/mg creatinine Microalbuminuria: 30 - 300 ug/mg creatinineClinical Albuminuria: > 300 ug/mg creatinine Urine (Urine, Random) 04/06/2024 8:10 AM EST 04/06/2024 11:40 AM EST Agustin Connelly MD LAB URINE ORDERABLES Final Result Performing Organization Address [facility] Co de Phone Number [facility] [address] [place] [phone] * (ABNORMAL) Lipid Panel, Standard (04/06/2024 8:10 AM EST) Triglycerides 109 <150 mg/dL [facility] Comment:Desirable Triglyceri de: less than 150 mg/dLBorderline High Triglyceride 150-199 mg/dLHigh Triglyceride: 200-499 mg/dLVery High Triglyceride: greater than or equal to 5OO mg/dL Cholesterol 177 <200 mg/dL [facility] Comment:Desirable Cholestero l: less than 200 mg/dLBorderline High Cholesterol: 200-239 mg/dLHigh Cholesterol: greater than 239 mg/dL LDL Cholesterol Calculated 115(H) <100 mg/dL [facility] Comment:Desirable LDL: less than 100 mg/dLNear Optimal/Above Optimal LDL: 110- 129 mg/dLBorderline High LDL: 130-159 mg/dLHigh LDL: 160-189 mg/dLVery High LDL: greater than or equal to 190 mg/dL HDL Cholesterol 41 >40 mg/dL [facility] Comment:Desirable HDL: great er than 40 mg/dL Note: This HDL assay may give artificially low results in patients with liver disease. Blood Venous blood specimen / Unknown 04/06/2024 8:10 AM EST 04/06/2024 11:51 AM EST us Agustin Connelly MD LAB BLOOD ORDERABLES Final Result [facility] [address] [place] [phone] * (ABNORMAL) Comprehensive Metabolic Panel (04/06/2024 8:10 AM EST) Sodium 137 135 - 145 mmol/L [facility] Potassium 4.5 3.3 - 5.1 mmol/L [facility] Chloride 106 96 - 108 mmol/L [facility] Carbon Dioxide 27 22 - 29 mmol/L [facility] Anion Gap 9(L) 12 - 20 [facility] Urea Nitrogen (BUN) 16 9 - 16 mg/dL [facility] Creatinine, Serum 1.02 0.5 - 1.4 mg/dL [facility] Estimated Glomerular Filt Rate >60 [facility] Comment:Chronic Kidney Disea se: Estimated GFR < 60 mL/min/[id number] Kidney Disease: Estimated GFR < 15 mL/min/1.73m2 Glucose 160(H) 60 - 115 mg/dL [facility] Calcium 9.0 8.4 - 10.2 mg/dL [facility] Bilirubin, Total 0.6 0.0 - 1.0 mg/dL [facility] Aspartate Amino Transferase 36 5 - 37 U/L [facility] Alanine Aminotransferase 48(H) 0 - 40 U/L [facility] Total Protein 7.1 6.5 - 8.0 g/dL [facility] Albumin Level 4.3 3.5 - 5.0 g/dL [facility] Alkaline Phosphatase 112 39 - 117 U/L [facility] Blood Venous blood specimen / Unknown 04/06/2024 8:10 AM EST 04/06/2024 11:51 AM EST Agustin Connelly MD LAB BLOOD ORDERABLES Final Result [facility] [address] [place] [phone] * (ABNORMAL) POCT HGB A1C (04/05/2024 9:12 AM EST) Hemoglobin A1C 7.0(A) 4.0 - 6.0 % QC Media Lot # [id number] Lot# Expiration Date [id number] Blood 04/05/2024 9:12 AM EST Agustin Connelly MD POINT OF CARE TEST EN TER/EDIT ORDERABLES Final Result * Colonoscopy (06/28/2021) Colonoscopy Normal Normal 06/28/2021 Narrative Shanel Bo - 06/28/2021 9:58 AM EST Recommended 3 year follow up per GI notes ( [facility] [place] Historical Provider HEALTH MAINTENANCE Edited Result - Final from Last 3 Months or Most Recently Relevant to Health Maintenance Insurance [address] [place] [address] [facility] - [facility] Care Teams Machine Clipper Relationship Specialty Start Date End Date Agustin Marrero MD [address] [place] [address] [place] [phone] PCP - General Internal Medicine 01/25/14 [facility] 06/13/16
--- OUTSIDE RECORDS SUMMARY | 2024-06-17 06:40 | XMS_ITS | Encounter Summary ---
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 Role Phone Agustin Marrero MD Primary Care Provide r Reason for Visit * Reason Comments Med Refill Encounter Details Date Type Department Care Team (Late st Contact Info) Description 09/04/2022 Refill [facility] [address] [place] [address] Agustin Marrero MD [address] [place] [address] Social History Tobacco Use Types Packs/Day Years [...] 06/24/2024 9:00 AM EST Clinical Support [facility] [address] [place] [address] Shwetha Collado, RN [address] [place] [address] 07/05/2024 10:00 AM EDT Office Visit [facility] [address] [place] [address] Agutsin Marrero MD [address] [place] [address] 11/16/2024 10:00 AM EDT Office Visit [facility] [address] [place] [address] Catherine Antonio [address] [place] [address] documented as of this encounter Visit Diagnoses Not on filedocumented in this encounter Care Teams Retort Furnace Helper Relationship Specialty Start Date End Date Agustin Marrero MD [address] [place] [phone] PCP - General Internal Medicine 01/25/14 [facility] 06/13/16 documented as of this encounter
--- OUTSIDE RECORDS SUMMARY | 2024-06-17 06:41 | XMS_ITS | Clinical Summary ---
Author Organization [facility] Address [address] [place] [address] Care Team Providers Care Switchboard Manager Name Role Phone Agustin Mix Primary Care Provider + Allergies No known active allergies Medications blood glucose diagnostic meterIndication s:Type 2 diabetes mellitus with hyperglycemia, with long-term current use of insulin (HCC) Use to test 3 times daily. 1 each 08/25/2019 10:32 AM EDT 08/17/19 20 Active VIAGRA 100 mg tablet TAKE 1 TABLET 1 HOUR BEFORE SEXUAL RELATIONS ONCE DAILY NEEDED. 08/30/19 20 Active Freestyle Lite test stripsIndicatio ns:Type 2 diabetes mellitus with hyperglycemia, with long-term current use of insulin (HCC) Test 3 times a day. 100 strip 1 12/13/2019 9:38 PM EDT 10/24/19 20 Active blood glucose diagnostic lancet 28 gaugeIndication s:Type 2 diabetes mellitus with hyperglycemia, with long-term current use of insulin (HCC) Use to test 3 times daily. 100 each 1 10/24/19 20 Active pen needle, diabetic 32 gauge x 1/4 needle Use 1 needle up to four times per day 100 each 1 11/21/2019 10:35 AM EDT 11/04/19 20 Active Lantus Solostar U-100 Insulin 100 unit/mL (3 mL) insulin pen Inject 15 Units under the skin nightly. 15 mL 1 12/22/19 20 Active traMADoL (ULTRAM) 50 mg tablet every 12 hours as needed for pain. 01/05/20 20 Active omeprazole (PriLOSEC) 20 mg capsule Take 1 capsule (20 mg total) by mouth daily. 30 capsule 1 02/20/20 21 Active insulin aspart (NovoLOG FLEXPEN) 100 unit/mL insulin pen Inject 10 Units under the skin 3 times a day with meals. With medium dose scale - mdd= 60 units 30 mL 5 02/20/20 21 Active zolpidem (AMBIEN) 10 mg tablet Take 10 mg by mouth nightly as needed for sleep. 07/31/19 22 Active losartan (COZAAR) 25 mg tablet Take 25 mg by mouth once a day. 11/06/19 22 Active gabapentin (NEURONTIN) 300 mg capsule 300 mg 3 times a day. For back 11/27/19 22 Active hypromellose (NATURES TEARS) drops Apply 1-2 gtts in eyes as needed daily 01/25/20 22 Active FreeStyle Arvin 2 Colman misc 01/17/20 22 Active BD Insulin Syringe Ultra-Fine 0.3 mL 31 gauge x 5/16 syringe 02/28/20 22 Active cholecalciferol (VITAMIN D3) 1,000 unit tablet Take 1 tablet (1,000 Units total) by mouth once a day. 90 tablet 1 11/16/19 23 Active FreeStyle Arvin 2 Sensor kit USE TO MONITOR BLOOD GLUCOSE LEVELS. CHANGE EVERY 14 DAYS DX E11.9 11/05/19 23 Active Artificial Tears,pg-hypm-g lyc, 1-0.2-0.2 % drops SMARTSIG:In Eye(s) 01/05/20 23 Active SUMAtriptan (IMITREX) 25 mg tablet Take 25 mg by mouth. 07/20/19 24 Active multivitamin tablet TOME OLINDA TABLETA TODOS LOS D 05/28/19 24 Active lidocaine (LIDODERM) 5% patch APLIQUE UN PARCHE EN LA MA SALOMÓN REMOVE AND DISARD PATCH WITHIN 12 HOURS OR SEG N LO INDICADO Active tacrolimus (PROGRAF) 1 mg capsuleIndicati ons:History of liver transplant (CMS/HCC) (HCC) Take 1 capsule (1 mg total) by mouth every 12 hours. 270 capsule 3 09/23/19 24 Active magnesium oxide (MAG-OX) 400 mg (241.3 mg mag) tabletIndicatio ns:Low magnesium level TAKE 2 TABLETS (800 MG TOTAL) BY MOUTH 2 TIMES A DAY. 360 tablet 5 01/22/20 24 Active sodium polystyrene (KAYEXALATE) powderIndicatio ns:High potassium 30 grams 3 times a week 454 g 11 12/20/19 23 025 Discontinued (Therapy Completed or No Longer Needed) Active Problems Problem Noted Date Diagnosed Date [...] in March 2020. He was seen by rug touch up painter at [facility] who discussed [...] last hemoglobin A1c in our records from 2016 which was 4.7%. Current outpatient regimen includes [...] for liver biopsy, since LFT pattern not human resources hr representative of rejection. Additionally, Liver ultrasound showed [...] of recurrent ESBL bacteremia. Initially presented to [facility] for fever, LE swelling and pain. Unclear source. BCX grew esbl E.Coli 1 out of 2 sets from [facility], susceptible to Ertapenem. Initially he was on [...] of recurrent ESBL bacteremia. Initially presented to [facility] for fever, LE swelling and pain. Unclear source. BCX grew esbl E.Coli 1 out of 2 sets from [facility], susceptible to Ertapenem. Initially he was on [...] recurrent ESBL bacteremia. Patient initially presented to [facility] for fever and LE swelling and pain. Unclear source. BCX grew esbl E.Coli 1 out of 2 sets from [facility], susceptible to Ertapenem. Initially he was on zosyn, and was switched to ertapenem. On previous admission, MRCP on 12/20 or Abdominal US on 01/16 showed no biliary dilatation. - continue ertapenem (10 day course to be completed on 02/09 per [facility] note) - repeat BCX - CT AP w/ contrast - consult transplant ID in the AM - f/u CBC and CMP Assessment & Plan (02/05/2019 5:40 AM EDT): Patient has a recurrent history of recurrent ESBL bacteremia. Patient initially presented to [facility] for fever and LE swelling and pain. Unclear source. BCX grew esbl E.Coli 1 out of 2 sets from [facility], susceptible to Ertapenem. Initially he was on zosyn, and was switched to ertapenem. On previous admission, MRCP on 12/20 or Abdominal US on 01/16 showed no biliary dilatation. - continue ertapenem (10 day course to be completed on 02/09 per [facility] note) - repeat BCX - CT AP w/ contrast Abscess of leg, right 02/05/20192018 Assessment & Plan (02/22/2019 3:37 PM EST): Patient has worsened leg edema R>L w/ rt side 4+ pitting edema. At [facility], US was negative for DVT. CT [...] w/ rt side 4+ pitting edema. At [facility], US was negative for DVT. CT [...] Right side has 4+ pitting edema. At [facility], US was obtained and ruled out [...] was found. OSH GI recommended transfer to [facility] as there was a suspicion for acute [...] pathology. -BCx grew GNR?? -transplant ID consulted -[facility] was called for speciation, it will be [...] concerning for pathology. -Transplant ID is following -[facility] will fax culture data, commented that [...] Presented again on day of admission to [facility] with worsening shortness of breath where a CT chest PE protocol was performed which showed no evidence of intraluminal filling defect though did make note of large left- sided pleural effusion with associated complete left lower lobe collapse as well as partial left upper lobe collapse. Due to recurrent pleural effusion and likely need for repeat thoracentesis patient was transferred [facility]. On arrival patient without any increased work of breathing and saturating well on room air. Exam reveals absent breath sounds in the left middle and lower lung perez with increased dullness to percussion. 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 -We will have CT scan from [facility] uploaded into our system for review -CXR on 07/11 showed large left pleural effusion -IP consulted for thoracentesis. Will send fluid studies. -Requested [facility] records of pleural fluid studies from 07/06 -Supplemental oxygen as needed to maintain sats greater than 92% Assessment & Plan (01/19/2019 10:11 AM EDT): Patient is s/p thoracentesis after large left lung effusion unchanged from previous admission seen on imaging. Site of thoracentesis covered with bandage that is dry and intact. Chart review of his prior hospitalization at [facility] revealed that he had thoracentesis on January 11, 2019, during which 1.6 L was taken out, and fluid study revealed white blood cell count of 2650 and segs of 35%, suggesting exudative fluid, although it seems that no paracentesis was done at [facility]. - decreased breath sounds in middle and [...] resulting transudative fluid, rapidly reaccumulating, transferred to [facility] for TIPS intervention. Resumed diuretics today at [...] procedure in 2017. Most recent hospitalization at [facility] was in January 2019 when he was [...] Of note, reached out to [facility] to double check if paracentesis was done, and whether there is a fluid study of the sample, however it appears that no paracentesis was done at [facility]. - Start Lactulose increased to 20 g [...] from TIPS procedure and was sent to [facility] for further evaluation. Plan -Continue with home [...] 20mg daily and spironolactone 50mg daily. At [facility], patient received IV lasix 40mg daily. [...] 20mg daily and spironolactone 50mg daily. At [facility], patient received IV lasix 40mg daily. [...] Date Type Department Care Team Description 06/16/2024 Telephone [facility] Transplant Department [address] [place] [phone] Isidra Sanchez, KATALINA 05/25/2024 Abstract [facility] Transplant Department [address] [place] [address] [phone] Dylan Phelps MD 05/24/2024 Abstract [facility] Transplant Department [address] [place] [address] [phone] Dylan Phelps MD 05/11/2024 Telephone [facility] Transplant Department [address] [place] [address] [phone] Erika Bonds, KATALINA 04/29/2024 Abstract [facility] Transplant Department [address] [place] [address] [phone] Dylan Phelps MD 04/28/2024 Abstract [facility] Transplant Department [address] [place] [address] [phone] Dylan Phelps MD 04/26/2024 Abstract [facility] Transplant Department [address] [place] [address] [phone] Dylan Phelps MD 04/06/2024 Abstract [facility] Transplant Department [address] [place] [address] [phone] Dylan Phelps MD from Last 3 Months Immunizations Immunization Administration Dates Next Due COVID-19, Pfizer, mRNA, [...] Info) Description 08/01/2024 11:30 AM EDT Follow-Up [facility] Transplant Services [address] [place], [place] [id number] Dylan Phelps MD [address] [place] [address] Health Maintenance Due Date Last Done Comments [...] 02/10/2020, 07/12/2019, Additional history exists Pneumococcal Vaccine: 50+ Years Completed 3 Zoster Vaccines Completed 09/11/2022, 07/09/2022 CT Lung Cancer Screening (12 months, previous LungRADS 1 or 2) Discontinued 11/30/2023, 11/05/19, 05/06/2022, Additional history exists Influenza Vaccine Completed 01/25/2024, , 05/06/2022, Additional history exists Medical Devices Implanted Type Area Editing Clerk Device Identifier Shelf Expiration Date Model / Serial / Lot Shunt Transjugular Intrahepatic Portosystemic Tips Endoprosthesis [id number] Viatorr - [id number] Implanted:Qty: 1 on 07/28/2017 at [facility] Implant W L GORE 12/26/2019 [id number] / / Mesh Hernia With Strap Large Ventralex - [id number] Implanted:Qty: 1 on 03/20/2020 by Fernando Fine MD PhD at [facility] Mesh Right: Abdomen [employer] 01/15/2021 [id number] / / [id number] Stent Biliary Rx Fully Covered Self Expanding Metallic Rmv With Permalume Covering 8.5fr [id number] Wallflex - [id number] - [id number] Implanted:Qty: 1 on 11/21/2022 by Dunia Osorio MD at [facility] Stent N/A: Bile Duct [employer] 08/21/2024 [id number] / [id number] / Explanted Type Area Editing Clerk Device Identifier Shelf Expiration Date Model / Serial / Lot Ercp Stent-11/21/2022 Implanted:07/2022 (Quantity not on file) Explanted:06/2022 (Quantity not on file) ERCP Stent Bile Duct 1 / / Txp Internal Biliary Stent- 0 Implanted:07/20 (Quantity not on file) Explanted:07/2020 (Quantity not on file) TXP Internal Biliary Stent Bile Duct Procedures * Due to [place] state law, this organization might not be sharing negative HIV tests. Procedure Name Priority Date/Time Associated Diagnosis Comments AFP TUMOR MARKER, OUTSIDE LAB Routine 05/20/2024 7:46 AM EST LIVER POST EXTERNAL PANEL Routine 05/20/2024 7:36 AM EST TACROLIMUS LEVEL, OUTSIDE LAB Routine 04/25/2024 7:13 AM EST AFP TUMOR MARKER, OUTSIDE LAB Routine 04/25/2024 7:13 AM EST LIVER POST EXTERNAL PANEL Routine 04/25/2024 7:13 AM EST LIVER POST EXTERNAL PANEL Routine 03/25/2024 8:[address] CHEST W CONTRAST Routine [...] to Health Maintenance Results * Due to [place] state law, this organization might not be sharing negative HIV tests. * AFP Tumor Marker, Outside Lab (05/20/2024 7:46 AM EST) Only the most recent of2 resultswithin the time period is included. Alpha Fetoprotein, Tumor Marker 1.2 [facility] Blood Structure of peripheral vein / Unknown 05/20/2024 7:46 AM EST Dylan Phelps MD LAB BLOOD ORDERABLES Final Re sult Performing Organization Address [facility] Co de Phone Number [facility] [address] [place] [address] * LIVER POST EXTERNAL PANEL (05/20/2024 7:36 AM EST) Only the most recent of3 resultswithin the time period is included. Tacrolimus, Highly Sensitive 3.6 [facility] Sodium 139 mmol/L [facility] Potassium 4.7 [facility] Chloride 108 [facility] Carbon Dioxide 25 [facility] Glucose 156 [facility] BUN 19 mg/dL [facility] Creatinine 1.01 mg/dL [facility] Calcium 9.6 mg/dL [facility] Total Protein 7.2 g/dL [facility] Albumin 4.4 g/dL [facility] Bilirubin, Total 0.7 mg/dL [facility] Alkaline Phosphatase 123 U/L [facility] AST 38 U/L [facility] ALT 55 U/L [facility] Magnesium 1.70 mg/dL [facility] WBC 4.7 10*3/uL [facility] Hgb 13.7 [facility] Hematocrit 38.0 % [facility] Platelets 123 10*3/uL [facility] 05/20/2024 7:36 AM EST us Dylan Phelps MD LAB BLOOD ORDERABLES Final Re sult Performing Organization Address [facility]ZIP Co de Phone Number [facility] [address] [place] [address] * Tacrolimus Level, Outside Lab (04/25/2024 7:13 AM EST) Tacrolimus, Highly Sensitive 5.5 [facility] Blood Structure of peripheral vein / Unknown 04/25/2024 7:13 AM EST us Dylan Phelps MD LAB BLOOD ORDERABLES Final Re sult [facility] [address] [place] [address] * CT Chest W Contrast (11/05/2023 4:35 [...] obtain the completed interpretation. ? Workstation ID: [id number] Up-to-date CT equipment and radiation dose reduction techniques were employed. CTDIvol: 3.1 - 23.9 mGy. DLP: 2643 mGy-cm. ??The following accession numbers are related to this dose report [id number]: [id number] Narrative 11/19/2023 3:36 PM EDT Indication: ??58 [...] the spine. ??Bilateral gynecomastia. Resulting Agency Comment [id number] Procedure Note Natasha Michaud MD - 11/19/2023 [...] possible to obtain thecompleted interpretation. Workstation ID: [id number] Up-to-date CT equipment and radiation dose reduction techniques wereemployed. CTDIvol: 3.1 - 23.9 mGy. DLP: 2643 mGy-cm. The followingaccession numbers are related to this dose report [id number]: [id number] Dylan Phelps MD [facility] CT PROCEDURES Final Resul t * (ABNORMAL) Basic Metabolic Panel (11/15/2022 3:07 AM EDT) NA 135 135 - 145 mmol/L 11/15/2022 4:09 AM EDT [facility] K 4.6 3.5 - 5.3 mmol/L 11/15/2022 4:09 AM EDT [facility] Cl 103 97 - 110 mmol/L 11/15/2022 4:09 AM EDT [facility] CO2 24 24 - 32 mmol/L 11/15/2022 4:09 AM EDT [facility] BUN 27(H) 7 - 23 mg/dL 11/15/2022 4:09 AM EDT [facility] Creatinine 1.05 0.60 - 1.30 mg/dL 11/15/2022 4:09 AM EDT [employer] Glucose 268(H) 70 - 99 mg/dL 11/15/2022 4:09 AM EDT [facility] Calcium 8.8 8.7 - 10.7 mg/dL 11/15/2022 4:09 AM EDT [facility] Anion Gap 8 5 - 15 11/15/2022 4:09 AM EDT [facility] eGFR 82 >=60 mL/min/1. 73m2 11/15/2022 4:09 AM EDT [facility] Comment:The estimated glomer ular [...] MD LAB BLOOD ORDERABLES Final Re sult [facility] [address] [place] [address], * Microalbumin, Random Urine with Creatinine (05/17/2021 11:35 AM EST) Microalbumin, Urine 1.1 mg/dL 05/17/2021 12:34 PM EST [employer] Creatinine, Urine 97 22 - 328 mg/dL 05/17/2021 12:34 PM EST [facility] Microalb/Creat Ratio, Random Urine 11.3 <30.0 mcg/mgCr 05/17/2021 12:34 PM EST [facility] Comment: Microalbumin Reference Range: Normal ? <30 mcg/mg Creatinine Microalbuminuria ? 30-300 mcg/mg Creatinine Clinical Albuminuria >300 mcg/mg Creatinine Reference: ADA Guideline. Diabetes Care. 2004;27 (suppl 1) Urine Voided urine specimen / Unknown Non-Blood Collection / Unknown 05/17/2021 11:35 AM EST 05/17/2021 12:01 PM EST us Angelita Villa MD LAB URINE ORDERABLES Final Resul t [facility] [address] [place] [address], * (ABNORMAL) Hemoglobin A1c (05/17/2021 11:31 AM EST) Hemoglobin A1C 7.7(H) <5.7 % of total Hgb 05/18/2021 2:37 AM EST [facility] Comment: For someone without known diabetes, a [...] (MG/DL) 174 mg/dL 05/18/2021 2:37 AM EST [facility] eAG (MMOL/L) 9.7 mmol/L 05/18/2021 2:37 AM [facility] Blood Structure of peripheral vein / Unknown Venipuncture / Unknown 05/17/2021 11:31 AM EST 05/17/2021 11:40 AM EST Narrative [facility] - 05/18/2021 2:37 AM EST [facility] Received Date: us Angelita Villa MD LAB BLOOD ORDERABLES Final Resul t [facility] [address], [place] [address], [place] [phone] [facility] [address], [place] [address], [place] [phone] * CT Abdomen Pelvis with Contrast (05/05/2020 5:27 PM EST) Anatomical Region Laterality Modality Body Computed Tomogra phy 05/06/2020 8:40 AM EST Impressions 05/06/2020 8:50 AM EST Small fluid pocket between the incision and transverse colon which may represent developing adhesions. Recommend correlation for any signs of infection in the incision on exam. Otherwise, no CT findings that might explain patient's fever. [id number] Narrative 05/06/2020 8:50 AM EST EXAMINATION: CT [...] no CT findings that mightexplain patient's fever. [id number] Reyes Voss MD [facility] CT PROCEDURES Final Result * Hepatitis C RNA, Quantitative, PCR (09/09/2019 11:52 AM EDT) Hcv RNA, Quantitative Real Time PCR <15 NOT DETECTED NOT DETECTED IU/mL 09/14/2019 5:38 PM EDT [facility] Hepatitis C Quantitative PCR Log IU/mL <1.18 NOT DETECTED NOT DETECTED Log IU/mL 09/14/2019 5:38 PM EDT [facility] Comment: This test was performed using Real-Time Polymerase Chain Reaction. Reportable Range: 15 IU/mL to 100,000,000 IU/mL (1.18 Log IU/mL to 8.00 Log IU/mL). ?? The analytical performance characteristics of this assay have been determined by [employer]. The modifications have not been cleared or approved by the FDA. This assay has been validated pursuant to the CLIA regulations and is used for clinical purposes. ?? For more information on this test, go to: http://education.GoPlanit/faq/GDX27o7 (This link is being provided for informational/ educational purposes only.) Blood Structure of peripheral vein / Unknown Venipuncture / Unknown 09/09/2019 11:52 AM EDT 09/09/2019 12:07 PM EDT Narrative [facility] [place] - 09/14/2019 5:38 PM EDT [facility] Received Date:[id number] Cyndi Pereira MD LAB BLOOD ORDERAB LES Final Result [facility] [address] [facility] [address], [place] [address], [place] [phone] [facility] [address] [facility] [address]rd Floor, [place] [address], from Last 3 Months or Most Recently Relevant to Health Maintenance Insurance [address] [place] [address] [facility] [place] [id number] [address] [facility] [place] [address] [facility] [address] [place] [id number] [facility] [place] [id number] Advance Directives Documents on File Type Date Recorded Patient Underwriting Consultant Expl anation Health Care Proxy 02/05/2019 4:40 [...] File Name Relationship Healthcare Agent Relationship Communication Dagobertohelenarenu Mariabob Son Health Care Agent Care Teams Switchboard Manager Relationship Specialty Start Date End Date Agustin Mix [address] [place] [address] [place] Newman [phone] PCP - General Internal Medicine 04/15/17
--- OUTSIDE RECORDS SUMMARY | 2024-06-17 06:41 | XMS_ITS | Encounter Summary ---
Author Organization [facility] Address [address] [place] [address] [address] [place] [address] Care Team Providers Care Turkey Egg Gatherer Name Role Phone Agustin Marrero MD Primary Care Provide r Reason for Visit * Reason Onset Date Comments Med Refill 12/15/2022 Encounter Details Date Type Department Care Team ([facility] st Contact Info) Description 12/15/[address] [facility] MEDICINE [address] [place], [place] [phone] Agustin Marrero MD [address] [place] [address] Med Refill Social History Tobacco Use Types [...] Description 06/24/2024 9:00 AM EST Clinical Support [facility] MEDICINE [address] [place] [address] Shwetha Collado, RN [address] [place] [address] 07/05/2024 10:00 AM EDT Office Visit [facility] MEDICINE [address] [place] [address] Agustin Marrero MD [address] [place] [address] 11/16/2024 10:00 AM EDT Office Visit [facility] ADULT DENTAL [address] [place] [address] Matty Antonioaris [address] [place] [address] documented as of this encounter Visit Diagnoses Not on filedocumented in this encounter Care Teams Turkey Egg Gatherer Relationship Specialty Start Date End Date Agustin Marrero MD [address] [place] [address] PCP - General Internal Medicine 01/25/14 [facility] 06/13/16 documented as of this encounter
--- OUTSIDE RECORDS SUMMARY | 2024-06-17 06:41 | XMS_ITS | Encounter Summary ---
Author Organization [employer] Address [address] [place] [address] 7t [place] [address] Care Team Providers Care Floor Hand Name Role Phone Agustin Marrero MD Primary Care Provide r Reason for Visit * Reason Onset Date Comments Med Refill 05/26/2023 Encounter Details Date Type Department Care Team ([facility] st Contact Info) Description 05/26/2023 Telephone [facility] MEDICINE [address] [place], [place] [phone] Agustin Marrero MD [address] [place] [address] Med Refill Social History Tobacco Use Types [...] LITE test strip To be sent to: [facility]/pharmacy [address] [place] [address] documented in this encounter Plan of Treatment Upcoming Encounters Date Type Department Care Team (Late st Contact Info) Description 06/24/2024 9:00 AM EST Clinical Support [facility]INE [address] [place] [address] Shwetha Collado RN [address] [place] [address] 07/05/2024 10:00 AM EDT Office Visit [facility] [address] [place] [address] Agustin Marrero MD [address] [place] [address] 11/16/2024 10:00 AM EDT Office Visit [facility] ADULT DENTAL [address] [place] [address] PacoCatherine [address] [place] [address] documented as of this encounter Visit Diagnoses Not on filedocumented in this encounter Care Teams Floor Hand Relationship Specialty Start Date End Date Agustin Marrero MD [address] [place] [address] PCP - General Internal Medicine 01/25/14 [facility] 06/13/16 documented as of this encounter
--- OUTSIDE RECORDS SUMMARY | 2024-06-17 06:41 | XMS_ITS | Encounter Summary ---
Author Organization [employer] Address [address] [place] [address] 7t [place] [address] Care Team Providers Care Pugger Helper Name Role Phone Agustin Marrero MD Primary Care Provide r Encounter Details Date Type Department Care Team (Late st Contact Info) Description 08/28/2022 Abstract [facility] MEDICINE [address] [place] [address] Agustin Marrero MD [address] [place] [address] Social History Tobacco Use Types Packs/Day Years [...] 06/24/2024 9:00 AM EST Clinical Support [facility] MEDICINE [address] [place] [address] Shwetha Collado RN [address] [place] [address] 07/05/2024 10:00 AM EDT Office Visit [facility] MEDICINE 230 [place], [place] [phone] Agustin Marrero MD 230 [facility] [place] [phone] 11/16/2024 10:00 AM EDT Office Visit [facility] ADULT DENTAL 230 [facility] [place] [phone] Catherine Antonio 230 [facility] [place] [phone] documented as of this encounter Procedures Procedure Name Priority Date/Time Associated Diagnosis Comments COLONOSCOPY Routine 06/28/2021 documented in this encounter Results * Colonoscopy (06/28/2021) Colonoscopy Normal Normal 06/28/2021 Narrative Shanel Bo - 06/28/2021 9:58 AM EST Recommended 3 year follow up per GI notes ( [facility] ) us Historical Provider [facility] Edited Result - Final documented in this encounter Visit Diagnoses Not on filedocumented in this encounter Care Teams Pugger Helper Relationship Specialty Start Date End Date Agustin Marrero MD 230 [facility] [place], [place] [phone] PCP - General Internal Medicine 01/25/14 [facility] 06/13/16 documented as of this encounter
--- OUTSIDE RECORDS SUMMARY | 2024-06-17 06:41 | XMS_ITS | Encounter Summary ---
Author Organization [employer] [facility] Address [address] [place] [address] 7t [place] [address] Care Team Providers Care Supervisor Drying And Winding Name Role Phone Agustin Marrero MD Primary Care Provide r Reason for Visit * Reason Onset Date Comments Med Refill 12/15/2022 Encounter Details Date Type Department Care Team ([facility] st Contact Info) Description 12/15/2022 Telephone [facility] MEDICINE [address] [place], [place] [phone] Agustin Marrero MD 230 [place] [address] Med Refill Social History Tobacco Use Types [...] 06/24/2024 9:00 AM EST Clinical Support [facility]ICINE [address] [place] [address] Shwetha Collado, RN [address] [place] [address] 07/05/2024 10:00 AM EDT Office Visit [facility] [address] [place] [address] Agustin Marrero MD [address] [place] [address] 11/16/2024 10:00 AM EDT Office Visit [facility] ADULT DENTAL [address] [place] [address] Paco, Catherine [address] [place] [address] documented as of this encounter Visit Diagnoses Not on filedocumented in this encounter Care Teams Supervisor Drying And Winding Relationship Specialty Start Date End Date Agustin Marrero MD 230 [place] [address] PCP - General Internal Medicine 01/25/14 [facility] 06/13/16 documented as of this encounter
--- OUTSIDE RECORDS SUMMARY | 2024-06-17 06:41 | XMS_ITS | Encounter Summary ---
Author Organization [facility] Address [address] [place] [address] Care Team Providers Care Spaghetti Press Helper Name Role Phone Agustin Mix Primary Care Provider + Encounter Details Date Type Department Care Team (Late st Contact Info) Description 04/02/2020 Orders Only [facility] Interventional Radiology [address] [place] [address] Kathy Bowling MD [address] [place] [address] Social History Tobacco Use Types Packs/Day Years [...] Info) Description 08/01/2024 11:30 AM EDT Follow-Up [facility] Liver Transplant Services [address] [place] [address] Dylan Phelps MD [address] [place] [address] documented as of this encounter Visit Diagnoses Not on filedocumented in this encounter Additional Health Concerns Infection Onset Date Last Indicated Resolved Time COVID-19 - Confirmed infection 05/01/2020 05/07/2020 06/01/2020 5:06 PM EST COVID-19 - Suspected infection 05/10/2020 05/10/2020 05/24/2020 10:34 PM EST documented as of this encounter Care Teams Spaghetti Press Helper Relationship Specialty Start Date End Date Agustin Mix [address] [place] [address] PCP - General Internal Medicine 04/15/17 documented as of this encounter
--- OUTSIDE RECORDS SUMMARY | 2024-06-17 06:41 | XMS_ITS | Encounter Summary ---
Author Organization [employer] Address [address] [place] [address] 7t [place] [address] Care Team Providers Care Global Implementation Manager Name Role Phone Agustin Marrero MD Primary Care Provide r Reason for Visit * Reason Onset Date Comments Medication Question 05/11/2024 Encounter Details Date Type Department Care Team ([facility] st Contact Info) Description 05/11/2024 Telephone [facility] MEDICINE [address] [place], [place] [phone] Agustin Marrero MD 230 [place], [place] [phone] Medication Question Social History Tobacco Use Types [...] encounter Miscellaneous Notes * Telephone Encounter - Jsoey Mena RN - 05/16/2024 11:49 AM EST A also called Dr Richardson's office on 05/11/2024. Note in [facility] EHR: Received call from Edward's VNA nurse questioning if he still needs to be on Kayexelate 2x weekly. She states he has been out ofit for probably 1 month as he was under the impression the order was discontinued. Labs on 04/25 showK level within normal limits. Instructed her to have him repeat labs in early May to continue to monitor. Called [facility] pharmacy, spoke with Faiza who stated that pt last picked up Kayexalate on 08/13/2023, Rx was written by Dr Lenin Richardson for 30g 1x weekly as directed. Called [facility] Dr Richardson's office to confirm. Spoke [...] Richardson's office and received same messageas above. Child Support Agent advised Jessica to contact Dr Richardson with any questions regarding this med given that they prescribe it. Jessica stated she will be following up with their office in May once the pt gets their labs drawn. Advised her to call [facility] if any other questions or concerns develop, [...] leaving original prescriber contact information. Dr. Richardson [facility]. . If any questions for Jessica you can contact pt at [phone]. documented in this encounter Plan of Treatment Upcoming Encounters Date Type Department Care Team (Late st Contact Info) Description 06/24/2024 9:00 AM EST Clinical Support [facility] MEDICINE [address] [place] [address] Shwetha Collado RN 505 [place] [address] 07/05/2024 10:00 AM EDT Office Visit [facility] MEDICINE [address] [place] [address] Agustin Marrero MD 230 [place] [address] 11/16/2024 10:00 AM EDT Office Visit [facility] ADULT DENTAL [address] [place] [address] Catherine Antonio [address] [place] [address] documented as of this encounter Visit Diagnoses Not on filedocumented in this encounter Additional Health Concerns Assessment Noted Time PHQ-9 Depression Total Score: 0 12/03/19 10:31 AM EDT documented as of this encounter Care Teams Global Implementation Manager Relationship Specialty Start Date End Date Agustin Marrero MD 230 [place] [address] PCP - General Internal Medicine 01/25/14 [facility] 06/13/16 documented as of this encounter
--- OUTSIDE RECORDS SUMMARY | 2024-06-17 06:41 | XMS_ITS | Data Portability ---
Author Organization [facility] [employer] [facility] Main Office Address [address] [place] [address] Care Team Providers Care Cordwainer Name Role Phone MARICRUZ NEWMAN - 2ND FLOOR OTHER Assessment Encounter Date Assessment Date Assessment LastModified by Organization Details LastModified Time 02/25/2019 02/25/2019 02/24/19 WBC 3.7, Hgb 7.5, Hct 22.4, Plt 59, Na 134, K 4.5, BUN 10, Brake Engineer 0.54, calc 7.8, tot prot 5.1, AST 69, ALT 33, A1c 4.2 02/23/19 WBC 3.4, Hgb 7.5, Hct 22.4, Plt 59, Na 128, K 4.3, BUN 11, Brake Engineer 0.56, silvia 7.6, tot prot 4.8, tot bili 4.1, AST 65, ALT 25 in hospital [facility] Not available 02/25/2019 10:15:55 Plan [...] Gastroesop hageal reflux disease without esophagiti s 348864461 Active 2018 FIDEL MAURO [address] [facility], [address], [place], [address], [facility] [employer] 9 08:26:33 Cirrhosis of liver 61819052 Active 2018 on transplant list FIDEL MAURO [address] [facility], [address], [place], [address], [facility] [facility] 9 08:36:16 Diabetes mellitus 17329996 Active 2018 CACHORRO FIDEL CARLSON [address] [facility], [address], [place], [address], [facility] 9 08:28:07 Hyponatrem ia 70939311 Active 2018 CACHORROFIDEL LEON [address] [facility], [address], [place], [address], [facility] 9 08:28:22 Bacteremia 1240678 Active 2018 CACHORROFIDEL LEON [address] [facility], [address], [place], [address], [facility] 9 08:29:07 Bacterial peritoniti s 726393139 Active 2018 FIDEL MAURO [address] [facility], [address], [place], [address], [facility] 9 09:07:42 Edema of lower extremity 007538665 Active 2018 FIDEL MAURO [address] [facility], [address], [place], [address], [facility] 9 09:15:49 Abscess of lower leg 059031338 Active 2018 Brittaney Mcelroy MD [address] [place] [address], [address], [place], [address], [facility] 9 07:15:49 Anemia 572818227 Active 2018 Brittaney Mcelroy MD [address] [place] [address], [address], [place], [address], [employer] 9 07:16:47 Problem Notes None recorded. Medical Equipment None Reported. Allergies No known drug allergies Medications Not known to be on any medication Vitals Date Recorded Body weight Heart rate Respiratory rate Body temperature Oxygen saturation Oxygen saturation in Arterial blood by Pulse oximetry Systolic blood pressure Diastolic blood pressure Provider Name and Address Organization Details Last Updated DateTime 9 22283.5 1 g 70 /min 20 /min 96.9 [degF] 98 % 98 % 128 mm[Hg] 74 mm[Hg] FIDEL MAURO [address] [facility], [address], [place], [address], [facility] [employer] [facility] 9 11:06:12 Date Recorded Systolic blood pressure Diastolic blood pressure Provider Name and Address Organization Details Last Updated DateTime 03/02/2019 120 mm[Hg] 68 mm[Hg] Brittaney Mcelroy MD [address] [facility], [address], [place], [address], [facility] [employer] 03/02/2019 06:55:54 Social History Question Answer Notes LastModified by Organizat ion Details LastModified Time Tobacco Smoking Status Former Smoker Not Available [facility] 02/14/2020 03:13:21 Do You Have An Advance Directive? Yes FULL CODE-undecid ed About Dialysis And Nutrition-ma y Use Hydration [id number] Information not available 02/14/2020 What Is Your Level Of Alcohol Consumption? None Quit Drinking In 2016 [id number] Information not available 02/14/2020 How Many Years Have You Consumed Alcohol? 30 [id number] Information not available 02/14/2020 How Much Tobacco Do You Chew? None [id number] Information not available 02/14/2020 Do You Or Have You Ever Used E-cigarettes Or Vape? Never Used Electronic Cigarettes [id number] Information not available 02/14/2020 Do You Have A Medical Power Of Card Game Operator? Yes Hcp On File [id number] Information not available 02/14/2020 What Was The Date Of Your Most Recent Tobacco Screening? 02/25/2019 [id number] Information not available 02/14/2020 Do You Or Have You Ever Used Smokeless Tobacco? Never Used Smokeless Tobacco [id number] Information not available 02/14/2020 How Much Tobacco Do You Smoke? 1 PPD [id number] Information not available 02/14/2020 On What Date Was Tobacco Cessation Counseling Provided? 02/25/2019 NA [id number] Information not available 02/14/2020 How Many Years Have You Smoked Tobacco? 30 [id number] Information not available 02/14/2020 Sex: Unknown Functional Status None recorded. Mental Status None recorded. Family History Nothing Reported. Medical History No medical history recorded. Past Encounters Encounter ID Performer Location Encounter Start Date Encounter Closed Date Diagnosis/Indication Diagnosis SNOMED-CT Code Diagnosis ICD10 Code Diagnosis Note [id number] FIDEL MAURO [address] [address] 02/25/2019 08:25:36 03/04/2019 13:41:33 Bacteremia 4317959 R78.81 completed treatmentm onitor dsg changes qdwet to dryareas clean Hyponatremia 68348541 E8 7.1 resolvedmo nitor labs Cirrhosis of liver K70.31 lactulose 30 mls tid 3-4 stools a dayspirono lactone 50 mg qdmonitoro n transplant listfollow s with [facility] Diabetes mellitus 141755 09 E11.9 lantus 8 units q imOGDO6v here is 4.2monitor for s/s of hypo/hyper glycemia Gastroesop hageal reflux disease without esophagitis 050336753 K21.9 omeprazole 20 mg qdmonitor for symptoms Bacterial peritonitis 19 5965217 K65.2 recurrentc ipro 500 mg qd prophymoni tor for symptoms Edema of l ower extremity 902158454 R60.0 lasix 20 mg qdmonitor edema [id number] Brittaney Mcelroy MD [address] [address] 03/02/2019 06:54:11 03/04/2019 13:42:54 Cirrhosis of liver 18207459 K70.31 fu GIlactulos e 20 gm tidfurosem concetta 20 mg dailymagne sium 400 mg dailyspiro nolactone 25 mg dailyon transplant list [facility] Diabetes mellitus 030920 09 E11.9 Humalog per sliding scaleLantu s 8U dailywill monitor Gastroesop hageal reflux disease without esophagitis 431317266 K21.9 omeprazole 20 mg dailywill monitor Anemia 216904951 D50.8 suspect multifacto rial including GI blood loss, chronic diseaseawa it B12, folateiron 325 mg bidwill continue to monitor Bacteremia 6935031 R78.8 1 antibiotic s completedd aily dressing changes legfu surgery Bacterial peritonitis 19 6240358 K65.2 history of in pastCipro 500 mg daily for prophylaxi sfu GI [facility] Health Concerns Section Related Observation LastModified by Organization Detai ls LastModified Time None Recorded Concern Status LastModified by Organization Details LastModified Time None Recorded Advance Directives Directive Y: FULL CODE-undecided about dialysis and nutrition-may use hydration Payers Encounter Date Sequence Insurance Name Policy Number Policy Banks Covered Member ID Banks Member ID Guarantor Name 02/25/2019 2 [place] [facility] [id number] [facility] 02/25/2019 1 [facility] - DOS PRIOR TO 2022 - DUAL ELIGIBLE (MEDICARE REPLACEMENT/AD VANTAGE - HMO) [facility] [id number] [facility] 03/02/2019 2 [place] [facility] Edward Jon [id number] [facility] 03/02/2019 1 [facility] - DOS PRIOR TO 2022 - DUAL ELIGIBLE (MEDICARE REPLACEMENT/AD VANTAGE - HMO) [facility] [id number] [place] [facility] Notes Date Note Type Note Provider Name and Address Organization Details Recorded Time 02/25/2019 text/html A 54 year old ma le being seen for a initial intake note. Patient was at [facility] for fever and lower extremity edema/pain. He was transferred to [facility] for bacteremia. He grew ESBL E. [...] GERD, DM, hyponatremia and SBP. CACHORRO CARLSON, VEHICLE BODY MAKER [address] [facility], [address], [place], [address], [employer] [facility] 02/25/2019 11:10:47 03/02/2019 text/html This 54 year old male was admitted to [facility] 02/23/19 for continued care and rehab after hospitalization for fever and lower extremity edema/pain. Patient has history of alcoholic liver disease and cirrhosis and is on transplant list. He was initially admitted to [facility], then transferred to [facility] for bacteremia. His blood cultures grew ESBL E. Coli and he started on antibiotics, initially Zosyn which was changed to meropenem, then ertapenem to complete a 10 day course. Patient has history recurrent bacteremia in past few months. During most recent prior [facility] admission, it was suspected that likely source of bacteremia was biliary. Patient had worsened R>L leg edema and US was negative at [facility] for DVT. CT of right lower extremity [...] MOLST: full code Brittaney Mcelroy MD [address] [facility], [address], [place], [address], [facility] [employer] [facility] 03/02/2019 08:11:36
--- OUTSIDE RECORDS SUMMARY | 2024-06-17 06:41 | XMS_ITS | Encounter Summary ---
Author Organization [facility] Address [address] [place] [address] Care Team Providers Care Fleet Assistant Name Role Phone Agustin Mix Primary Care Provider + Encounter Details Date Type Department Care Team (Late st Contact Info) Description 12/30/2021 Orders Only [facility] Interventional Radiology [address] [place] [address] Avelino Otero DO [address] [place] [address] Social History Tobacco Use Types Packs/Day Years [...] Info) Description 08/01/2024 11:30 AM EDT Follow-Up [facility] Liver Transplant Services [address] [place] [address] Dylan Phelps MD [address] [place] [address] documented as of this encounter Visit Diagnoses Not on filedocumented in this encounter Care Teams Fleet Assistant Relationship Specialty Start Date End Date Agustin Mix [address] [place] [address] PCP - General Internal Medicine 04/15/17 documented as of this encounter
--- OUTSIDE RECORDS SUMMARY | 2024-06-17 06:41 | XMS_ITS | Encounter Summary ---
Author Organization [employer] Address [address] [place] [address] 7t [place] [address] Care Team Providers Care Coat Joiner Name Role Phone Agustin Marrero MD Primary Care Provide r Reason for Visit * Reason Comments Med Refill Encounter Details Date Type Department Care Team ([facility] st Contact Info) Description 05/13/[address] [facility] MEDICINE [address] [place], [place] [phone] Agutsin Marrero MD [address] [place] [address] Social History Tobacco Use Types Packs/Day Years [...] 06/24/2024 9:00 AM EST Clinical Support [facility] MEDICINE [address] [place] [address] Shwetha Collado RN [address] [place] [address] 07/05/2024 10:00 AM EDT Office Visit [facility] MEDICINE [address] [place] [address] Agustin Marrero MD [address] [place] [address] 11/16/2024 10:00 AM EDT Office Visit [facility] ADULT DENTAL [address] [place] [address] Catherine Antonio [address] [place] [address] documented as of this encounter Visit Diagnoses Not on filedocumented in this encounter Additional Health Concerns Assessment Noted Time PHQ-9 Depression Total Score: 0 12/03/19 24 10:31 AM EDT documented as of this encounter Care Teams Coat Joiner Relationship Specialty Start Date End Date Agustin Marrero MD [address] [place] [address] PCP - General Internal Medicine 01/25/14 [facility] 06/13/16 documented as of this encounter
--- OUTSIDE RECORDS SUMMARY | 2024-06-17 06:41 | XMS_ITS | Referral Summary ---
Author Organization [facility] Address [address] [place] [address] Care Team Providers Care Machine Carton Marker Name Role Phone Agustin Mix Primary Care Provider + Encounters Date Type Department Care Team Description 06/16/2024 Telephone [facility] Transplant Department [address] [place] [address] Isidra Sanchez, KATALINA 05/25/2024 Abstract [facility] Transplant Department [address] [place] [address] Dylan Phelps MD 05/24/2024 Abstract [facility] Transplant Department [address] [place] [id number] Dylan Phelps MD 05/11/2024 Telephone [facility] Transplant Department [address] [place] [id number] Erika Bonds RN 04/29/2024 Abstract [facility] Transplant Department [address] [place] [address] Dylan Phelps MD 04/28/2024 Abstract [facility] Transplant Department [address] [place] [address] Dylan Phelps MD 04/26/2024 Abstract [facility] Transplant Department [address] [place] [address] Dylan Phelps MD 04/06/2024 Abstract [facility] Transplant Department [address] [place] [address] Dylan Phelps MD from Last 3 Months [...] daily 01/25/20 22 Active FreeStyle Arvin 2 [place] misc 01/17/20 22 Active BD Insulin Syringe [...] in March 2020. He was seen by powder coat painter at 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 Additionally, Liver ultrasound showed [...] of recurrent ESBL bacteremia. Initially presented to [facility] for fever, LE swelling and pain. Unclear source. BCX grew esbl E.Coli 1 out of 2 sets from [facility], susceptible to Ertapenem. Initially he was [...] of recurrent ESBL bacteremia. Initially presented to [facility] for fever, LE swelling and pain. Unclear source. BCX grew esbl E.Coli 1 out of 2 sets from [facility], susceptible to Ertapenem. Initially he was [...] recurrent ESBL bacteremia. Patient initially presented to [facility] for fever and LE swelling and pain. Unclear source. BCX grew esbl E.Coli 1 out of 2 sets from [facility], susceptible to Ertapenem. Initially he was on zosyn, and was switched to ertapenem. On previous admission, MRCP on 12/20 or Abdominal US on 01/16 showed no biliary dilatation. - continue ertapenem (10 day course to be completed on 02/09 per [facility] note) - repeat BCX - CT AP w/ contrast - consult transplant ID in the AM - f/u CBC and CMP Assessment & Plan (02/05/2019 5:40 AM EDT): Patient has a recurrent history of recurrent ESBL bacteremia. Patient initially presented to [facility] for fever and LE swelling and pain. Unclear source. BCX grew esbl E.Coli 1 out of 2 sets from [facility], susceptible to Ertapenem. Initially he was on zosyn, and was switched to ertapenem. On previous admission, MRCP on 12/20 or Abdominal US on 01/16 showed no biliary dilatation. - continue ertapenem (10 day course to be completed on 02/09 per [facility] note) - repeat BCX - CT AP w/ contrast Abscess of leg, right 02/05/20192018 Assessment & Plan (02/22/2019 3:37 PM EST): Patient has worsened leg edema R>L w/ rt side 4+ pitting edema. At [facility], US was negative for DVT. CT [...] w/ rt side 4+ pitting edema. At [facility], US was negative for DVT. CT [...] Right side has 4+ pitting edema. At [facility], US was obtained and ruled out [...] was found. OSH GI recommended transfer to [facility] as there was a suspicion for [...] pathology. -BCx grew GNR?? -transplant ID consulted -[facility] was called for speciation, it will [...] concerning for pathology. -Transplant ID is following -[facility] will fax culture data, commented that [...] 8:59 AM EST): Hyponatremic to 132 at [facility]. Na 128, constant through hospitalization. - daily BMP Assessment & Plan (02/09/2019 11:02 AM EDT): Hyponatremic to 132 at [facility]. Na 128, constant through hospitalization. - daily BMP Assessment & Plan (02/05/2019 5:51 AM EDT): Hyponatremic to 132 at [facility]. - repeat BMP in am and redose diuretics Assessment & Plan (02/05/2019 5:47 AM EDT): Hyponatremic to 132 at [facility]. - repeat BMP in am and [...] show acute fracture, and hardware intact. More julius that it is painful due to him [...] show acute fracture, and hardware intact. More julius that it is painful due to him [...] Presented again on day of admission to [facility] with worsening shortness of breath where a CT chest PE protocol was performed which showed no evidence of intraluminal filling defect though did make note of large left- sided pleural effusion with associated complete left lower lobe collapse as well as partial left upper lobe collapse. Due to recurrent pleural effusion and likely need for repeat thoracentesis patient was transferred [facility]. On arrival patient without any increased work of breathing and saturating well on room air. Exam reveals absent breath sounds in the left middle and lower lung perez with increased dullness to percussion. 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 -We will have CT scan from [facility] uploaded into our system for review -CXR on 07/11 showed large left pleural effusion -IP consulted for thoracentesis. Will send fluid studies. -Requested [facility] records of pleural fluid studies from 07/06 -Supplemental oxygen as needed to maintain sats greater than 92% Assessment & Plan (01/19/2019 10:11 AM EDT): Patient is s/p thoracentesis after large left lung effusion unchanged from previous admission seen on imaging. Site of thoracentesis covered with bandage that is dry and intact. Chart review of his prior hospitalization at [facility] revealed that he had thoracentesis on January 11, 2019, during which 1.6 L was taken out, and fluid study revealed white blood cell count of 2650 and segs of 35%, suggesting exudative fluid, although it seems that no paracentesis was done at [facility]. - decreased breath sounds in middle and [...] resulting transudative fluid, rapidly reaccumulating, transferred to [facility] for TIPS intervention. Resumed diuretics today [...] procedure in 2018. Most recent hospitalization at [facility] was in January 2019 when he was [...] to hyperkalemia. Of note, reached out to [facility] to double check if paracentesis was done, and whether there is a fluid study of the sample, however it appears that no paracentesis was done at [facility]. - Start Lactulose increased to 20 g [...] from TIPS procedure and was sent to [facility] for further evaluation. Plan -Continue with [...] 20mg daily and spironolactone 50mg daily. At [facility], patient received IV lasix 40mg daily. [...] 20mg daily and spironolactone 50mg daily. At [facility], patient received IV lasix 40mg daily. [...] 01/20/2019 7:09 AM Age: 54 years Immunizations Immunization Administration Dates Next Due COVID-19, [...] Info) Description 08/01/2024 11:30 AM EDT Follow-Up [facility] Liver Transplant Services [address] [place] [address] Dylan Phelps MD [address] [place] [address] Medical Devices Implanted Type Area Diploma Dental Assistant Device Identifier Shelf Expiration Date Model / Serial / Lot Shunt Transjugular Intrahepatic Portosystemic Tips Endoprosthesis [id number] Viatorr - [id number] Implanted:Qty: 1 on 07/28/2017 at [facility] Implant W L GORE 12/26/2019 [id number] / / Mesh Hernia With Strap Large Ventralex - [id number] Implanted:Qty: 1 on 03/20/2020 by Fernando Fine MD PhD at [facility] Mesh Right: Abdomen [employer] 01/15/2021 [id number] / / [id number] Stent Biliary Rx Fully Covered Self Expanding Metallic Rmv With Permalume Covering 8.5fr [id number] Wallflex - [id number] - [id number] Implanted:Qty: 1 on 11/21/2022 by Dunia Osorio MD at [facility] Stent N/A: Bile Duct PointAcross 08/21/2024 [id number] / [id number] / Explanted Type Area Diploma Dental Assistant Device Identifier Shelf Expiration Date Model / Serial / Lot Ercp Stent-11/21/2022 Implanted:0 07/2022 (Quantity not on file) Explanted:06/2022 (Quantity not on file) ERCP Stent Bile Duct 1 / / Txp Internal Biliary Stent- 0 Implanted:07/20 (Quantity not on file) Explanted:07/2020 (Quantity not on file) TXP Internal Biliary Stent Bile Duct Procedures * Due to [place] state law, this organization might not be [...] to Health Maintenance Results * Due to [place] state law, this organization might not be sharing negative HIV tests. * AFP Tumor Marker, Outside Lab (05/20/2024 7:46 AM EST) Only the most recent of2 resultswithin the time period is included. Alpha Fetoprotein, Tumor Marker 1.2 [facility] Blood Structure of peripheral vein / Unknown 05/20/2024 7:46 AM EST us Dylan Phelps MD LAB BLOOD ORDERABLES Final Re sult Performing Organization Address [facility] Co de Phone Number [facility] [address] [place] [address] * LIVER POST EXTERNAL PANEL (05/20/2024 7:36 AM EST) Only the most recent of3 resultswithin the time period is included. Tacrolimus, Highly Sensitive 3.6 [facility] Sodium 139 mmol/L [facility] Potassium 4.7 [facility] Chloride 108 [facility] Carbon Dioxide 25 [facility] Glucose 156 [facility] BUN 19 mg/dL [facility] Creatinine 1.01 mg/dL [facility] Calcium 9.6 mg/dL [facility] Total Protein 7.2 g/dL [facility] Albumin 4.4 g/dL [facility] Bilirubin, Total 0.7 mg/dL [facility] Alkaline Phosphatase 123 U/L [facility] AST 38 U/L [facility] ALT 55 U/L [facility] Magnesium 1.70 mg/dL [facility] WBC 4.7 10*3/uL [facility] Hgb 13.7 [facility] Hematocrit 38.0 % [facility] Platelets 123 10*3/uL [facility] 05/20/2024 7:36 AM EST Dylan Phelps MD LAB BLOOD ORDERABLES Final Re sult Performing Organization Address [facility]/ZIP Co de Phone Number [facility] [address] [place] [address] * Tacrolimus Level, Outside Lab (04/25/2024 7:13 AM EST) Tacrolimus, Highly Sensitive 5.5 [facility] Blood Structure of peripheral vein / Unknown 04/25/2024 7:13 AM EST us Dylan Phelps MD LAB BLOOD ORDERABLES Final Re sult [facility] [address] [place] [address] * CT Chest W Contrast (11/05/2023 4:35 [...] obtain the completed interpretation. ? Workstation ID: [id number] Up-to-date CT equipment and radiation dose reduction techniques were employed. CTDIvol: 3.1 - 23.9 mGy. DLP: 2643 mGy-cm. ??The following accession numbers are related to this dose report [id number]: [id number] Narrative 11/19/2023 3:36 PM EDT Indication: ??58 [...] the spine. ??Bilateral gynecomastia. Resulting Agency Comment [id number] Procedure Note Natasha Michaud MD - 11/19/2023 [...] Mild thickening and irregularities of the airway cmkenna. Pleura: No abnormality. Upper abdomen: No adrenal [...] possible to obtain thecompleted interpretation. Workstation ID: [id number] Up-to-date CT equipment and radiation dose reduction techniques wereemployed. CTDIvol: 3.1 - 23.9 mGy. DLP: 2643 mGy-cm. The followingaccession numbers are related to this dose report [id number]: [id number] Dylan Phelps MD IM CT PROCEDURES Final Resul t * (ABNORMAL) Basic Metabolic Panel (11/15/2022 3:07 AM EDT) NA 135 135 - 145 mmol/L 11/15/2022 4:09 AM EDT [facility] K 4.6 3.5 - 5.3 mmol/L 11/15/2022 4:09 AM EDT [facility] Cl 103 97 - 110 mmol/L 11/15/2022 4:09 AM EDT [facility] CO2 24 24 - 32 mmol/L 11/15/2022 4:09 AM EDT [facility] BUN 27(H) 7 - 23 mg/dL 11/15/2022 4:09 AM EDT [facility] Creatinine 1.05 0.60 - 1.30 mg/dL 11/15/2022 4:09 AM EDT [facility] Glucose 268(H) 70 - 99 mg/dL 11/15/2022 4:09 AM EDT [facility] Calcium 8.8 8.7 - 10.7 mg/dL 11/15/2022 4:09 AM EDT [facility] Anion Gap 8 5 - 15 11/15/2022 4:09 AM EDT [facility] eGFR 82 >=60 mL/min/1. 73m2 11/15/2022 4:09 AM EDT [facility] Comment:The estimated glomer ular filtration rate (eGFR) is calculated using a new formula developed by the NKF-ASN task force to eliminate race-based correction factors. The new formula uses serum/plasma creatinine, age, and gender to determine eGFR. A value below 60mls/min might indicate kidney disease and will be flagged. For additional information, see Amber et al, Am J Kidney Dis. 2021;79(2):268- 288, A Unifying Approach for GFR estimation: Recommendations of the NKF-ASN Task Force on Reassessing the Inclusion of Race in Diagnosing Kidney Disease . Blood Structure of peripheral vein / Unknown Venipuncture / Unknown 11/15/2022 3:07 AM EDT 11/15/2022 3:29 AM EDT us Dylan Phelps MD LAB BLOOD ORDERABLES Final Re sult [facility] [address] [place] [address], * Microalbumin, Random Urine with Creatinine (05/17/2021 11:35 AM EST) Microalbumin, Urine 1.1 mg/dL 05/17/2021 12:34 PM EST [facility] Creatinine, Urine 97 22 - 328 mg/dL 05/17/2021 12:34 PM EST [facility] Microalb/Creat Ratio, Random Urine 11.3 <30.0 mcg/mgCr 05/17/2021 12:34 PM EST [facility] Comment: Microalbumin Reference Range: Normal ? <30 mcg/mg Creatinine Microalbuminuria ? 30-300 mcg/mg Creatinine Clinical Albuminuria >300 mcg/mg Creatinine Reference: ADA Guideline. Diabetes Care. 2004;27 (suppl 1) Urine Voided urine specimen / Unknown Non-Blood Collection / Unknown 05/17/2021 11:35 AM EST 05/17/2021 12:01 PM EST Angelita Villa MD LAB URINE ORDERABLES Final Resul t Performing Organization Address City/[facility]/ZIP Co de Phone Number [facility] [address] [place] [address], * (ABNORMAL) Hemoglobin A1c (05/17/2021 11:31 AM EST) Hemoglobin A1C 7.7(H) <5.7 % of total Hgb 05/18/2021 2:37 AM EST [facility] Comment: For someone without known diabetes, a [...] (MG/DL) 174 mg/dL 05/18/2021 2:37 AM EST [facility] eAG (MMOL/L) 9.7 mmol/L 05/18/2021 2:37 AM EST [facility] Blood Structure of peripheral vein / Unknown Venipuncture / Unknown 05/17/2021 11:31 AM EST 05/17/2021 11:40 AM EST Narrative [facility] 05/18/2021 2:37 AM EST [facility] Received Date: Angelita Villa MD LAB BLOOD ORDERABLES Final Resul t Performing Organization Address City/[facility]/ZIP Co de Phone Number [facility] [address] [place] [address] [address] Floor, [place] [address], [place] [phone] [facility] [address] Floor, [place] [address], [place] [phone] * CT Abdomen Pelvis with Contrast (05/05/2020 5:27 PM EST) Anatomical Region Laterality Modality Body Computed Tomogra phy 05/06/2020 8:40 AM EST Impressions 05/06/2020 8:50 AM EST Small fluid pocket between the incision and transverse colon which may represent developing adhesions. Recommend correlation for any signs of infection in the incision on exam. Otherwise, no CT findings that might explain patient's fever. [id number] Narrative 05/06/2020 8:50 AM EST EXAMINATION: CT [...] no CT findings that mightexplain patient's fever. [id number] Reyes Voss MD IM CT PROCEDURES Final Result * Hepatitis C RNA, Quantitative, PCR (09/09/2019 11:52 AM EDT) Pathologist [facility] Hcv RNA, Quantitative Real Time PCR <15 NOT DETECTED NOT DETECTED IU/mL 09/14/2019 5:38 PM EDT [facility] Hepatitis C Quantitative PCR Log IU/mL <1.18 NOT DETECTED NOT DETECTED Log IU/mL 09/14/2019 5:38 PM EDT [facility] Comment: This test was performed using Real-Time Polymerase Chain Reaction. Reportable Range: 15 IU/mL to 100,000,000 IU/mL (1.18 Log IU/mL to 8.00 Log IU/mL). ?? The analytical performance characteristics of this assay have been determined by [employer]. The modifications have not been cleared or approved by the FDA. This assay has been validated pursuant to the CLIA regulations and is used for clinical purposes. ?? For more information on this test, go to: http://education.Deolan/faq/KCS17h6 (This link is being provided for informational/ educational purposes only.) Blood Structure of peripheral vein / Unknown Venipuncture / Unknown 09/09/2019 11:52 AM EDT 09/09/2019 12:07 PM EDT Narrative [facility] - 09/14/2019 5:38 PM EDT [facility] Received Date: us Cyndi Pereira MD LAB BLOOD ORDERAB LES Final Result [facility] [address] [facility] [facility] [address], [place] [address], [place] [phone] [facility] [address], [place] [address], [place] [phone] from Last 3 Months or Most Recently Relevant to Health Maintenance Insurance [facility] [employer] [employer] [facility] [employer] [employer] [facility] [employer] [employer] SONIDO, KRISTIN [id number] Advance Directives Documents on File Type Date Recorded Patient Procurement Services Manager Expl anation Health Care Proxy 02/05/2019 4:40 PM Braydonrenu Areli i 01/29/19 Health Care Proxy 09/15/2018 2:40 [...] File Name Relationship Healthcare Agent Relationship Communication Braydonrenu Tompkinsjaspal Son Health Care Agent Care Teams Machine Carton Marker Relationship Specialty Start Date End Date Agustin Mix [address] [place] [address] PCP - General Internal Medicine 04/15/17
--- OUTSIDE RECORDS SUMMARY | 2024-06-17 06:41 | XMS_ITS | Continuity of Care Document ---
Author Organization [facility] Address [address] [place] [address]- Care Team Providers Care Convex Grinder Operator Name Role Phone Agustin Mix MD Primary Care Physi cindy Encounter [facility] R [id number] Date(s): 01/26/24 - 05/25/24 [facility] [address] [place] [id number] Attending Physician: Ruth Ann Flynn MD Admitting Physician: Ruth Ann Flynn MD Referring Physician: Agustin Mix MD Encounter Type: Pre-OutPatient One Time Allergies, Adverse Reactions, Alerts No Known Allergies Medications cholecalciferol 2000 intl units oral tablet TOME OLINDA TABLETA TODOS LOS D Start Date: 07/30/21 Status: Ordered Repeat number: 1 Daily Stacy oral tablet TOME OLINDA TABLETA TODOS LOS D Start Date: 07/30/21 Status: Ordered Repeat number: 1 Freestyle savana 2 [place] Freestyle savana 2 [place], See Instructions, # 1 pack/packet, Refills 0, Tot. Refills 0, Maintenance, Freestyle savana 2 reader, 07/30/21 11:18:00 AM EDT, Please dispense freestyle savana 2 reader ., Supply, 170.18, cm, 07/30/21 10:34:00 EDT, Height Start Date: 07/30/21 Status: Ordered Quantity: 1.0 Unit: pack/packet Repeat number: 1 Freestyle savana 2 sensors Freestyle savana 2 sensors, See Instructions, # 2 each, Refills 11, Tot. Refills 11, Maintenance, use to monitor blood glucose levels. change every 14 days Dx E11.9, 01/04/24 10:25:00 AM EDT, Supply, 170.18, cm, 01/04/24 9:51:00 EDT, Height Start Date: 01/04/24 Status: Ordered Quantity: 2.0 Unit: each Repeat number: 12 gabapentin 300 mg oral capsule TAKE 1 CAPSULE BY MOUTH IN THE MORNING AND NOON AND 2 CAPSULES AT BEDTIME Start Date: 07/30/21 Status: Ordered Repeat number: 1 Gvoke HypoPen 0.5 mg/0.1 mL subcutaneous solution 0.2 mL = 1 mg, Subcutaneous Injection, Once, To be use for hypoglycemic emergency by family member or accompanying person, if blood glucoses less than 60 and unconscious. Please call 911 after use glucagon pen., # 0.2 mL, 0 Refills, Soft Stop, 01/04/24 10:26:00 AM EDT, Solution, [id number], i nstruction in [place], 170.18, cm, 01/04/24 9:51:00 EDT, Height Start Date: 01/04/24 Status: Ordered Quantity: 0.2 Unit: mL Repeat number: 1 Insulin Syringe, BD Ultra-Fine 0.3 cc 31 G x 8 mm (516in) See Instructions, # 100 each, Refills 1, Tot. Refills 1, Maintenance, e11.9 for use with insulin vials until you have changed over to the pens., 07/30/23 8:23:00 AM EDT, Supply, 170.18, cm, 04/21/23 11:40:00 EST, Height Start Date: 07/30/23 Status: Ordered Quantity: 100.0 Unit: each Repeat number: 2 Lantus Solostar Pen 100 units/mL subcutaneous solution See Instructions, INJECT 24 UNITS SUBCUTANEOUSLY EVERY DAY AT BEDTIME, # 15 Unknown, 11 Refills, Maintenance, 01/04/24 10:26:00 AM EDT, [id number], 170.18, cm, 01/04/24 9:51:00 EDT, Height Start Date: 01/04/24 Status: Ordered Quantity: 15.0 Unit: Unknown Repeat number: 12 Melatonin = 5 mg, Daily at bedtime, 0 Refills, Maintenance, 01/29/19 6:06:24 PM EDT Start Date: 01/29/19 Status: Ordered Repeat number: 1 NovoLOG FlexPen 100 units/mL injectable solution See Instructions, USE PER SLIDING SLIDING SCALE UP TO 60 UNITS A DAY, # 30 Unknown, 5 Refills, Maintenance, 01/04/24 10:26:00 AM EDT, [id number], 170.18, cm, 01/04/24 9:51:00 EDT, Height Start Date: 01/04/24 Status: Ordered Quantity: 30.0 Unit: Unknown Repeat number: 6 Omeprazole = 20 mg, By Mouth, Daily, 0 Refills, Maintenance, 01/29/19 6:03:38 PM EDT Start Date: 01/29/19 Status: Ordered Repeat number: 1 omeprazole 20 mg oral enteric coated capsule DAVID Iniguez ANTES COMER Start Date: 07/30/21 Status: Ordered Repeat number: 1 omeprazole 20 mg oral enteric coated capsule 1 capsule = 20 mg, By Mouth, Daily, # 30 capsule, 0 Refills, Maintenance, 07/30/21 11:07:00 AM EDT, EC Capsule, Partial fill upon patient request if the prescription is for a schedule II opioid drug. Start Date: 07/30/21 Status: Ordered Quantity: 30.0 Unit: capsule Repeat number: 1 Pen [place], 31 G x 5 mm BD Ultra Fine III See Instructions, # 150 each, Refills 11, Tot. Refills 11, Maintenance, e11.9 use with insulin pens4 times daily as directed for subcutaneous injection, 01/04/24 10:26:00 AM EDT, Supply, 170.18, cm, 01/04/24 9:51:00 EDT, Height Start Date: 01/04/24 Status: Ordered Quantity: 150.0 Unit: each Repeat number: 12 spironolactone 50 mg oral tablet 1 tablet = 50 mg, By Mouth, Daily, # 30 tablet, 0 Refills, Maintenance, 01/29/19 6:03:53 PM EDT, Tablet Start Date: 01/29/19 Status: Ordered Quantity: 30.0 Unit: tablet Repeat number: 1 tacrolimus 1 mg oral capsule TAKE 3 CAPSULES (3 MG TOTAL) BY MOUTH 2 TIMES A DAY IN THE MORNING AND IN THE EVENING. Start Date: 07/30/21 Status: Ordered Repeat number: 1 traMADol 50 mg oral tablet 1 tablet = 50 mg, By Mouth, Every 12 hours, PRN as needed for pain, 0 Refills, Maintenance, 07/30/2210:06:00 AM EDT, Tablet, Partial fill upon patient request if the prescription is for a schedule IIopioid drug. 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 class I Confirmed Active Social History Social History Type Response Smoking Status Never (less than 100 in lifetime) entered on: 01/04/24 Sex Sex Representation Male (finding) Patient Care team information Care Team Personnel Name: Lorraine Rojas RN Position: [facility] RN Member Role: Primary Care Nurse Name: Maria Del Rosario LONG, Agustin Moran Position: [facility] Outreach Member Role: PCP Address: [address] [place] [address] Telecom: Name: Radha Lacy RN Position: [facility] RN Member Role: Primary Care Nurse Care Team Related Persons Name: BRETT ALLEN Name: ANIBAL LUONG Insurance Providers Guarantor name: BRYN Health Plan Information #: 1 Payer: [facility] CARE [employer]/ONE CARE Member Number: [id number] Policy Number: NA Group Number: NA Health Plan Information #: 2 [facility]: [facility]/ONE CARE Member Number: [id number] Policy Number: NA Group Number: [id number]
--- OUTSIDE RECORDS SUMMARY | 2024-06-17 06:41 | XMS_ITS | Encounter Summary ---
Author Organization [employer] Address [address] [place] [address] [address] [place] [address] Care Team Providers Care Visual Basic Programmer Name Role Phone Agustin Marrero MD Primary Care Provide r Reason for Visit * Reason Onset Date Comments Med Refill 04/14/2024 Encounter Details Date Type Department Care Team ([facility] st Contact Info) Description 04/14/2024 Telephone [facility] [address] [place], [place] [phone] Agustin Marrero MD [address] [place] [address] Med Refill Social History Tobacco Use Types [...] to soon for refill script sent to [id number] on 03/24/24. * Telephone Encounter - Catherine Quiroz - 04/14/2024 11:49 AM EST TC from pt requesting medication refill. Medications needing refill : gabapentin (Neurontin) 300 MG capsule To be sent to: [facility]/pharmacy #[id number] - [address] documented in this encounter Plan of Treatment Upcoming Encounters Date Type Department Care Team (Late st Contact Info) Description 06/24/2024 9:00 AM EST Clinical Support [facility] [address] [place] [address] Shwetha Collado, KATALINA [address] [place] [address] 07/05/2024 10:00 AM EDT Office Visit [facility] [address] [place] [address] Agustin Marrero MD [address] [place] [address] 11/16/2024 10:00 AM EDT Office Visit [facility]ULT DENT[facility] [address], [place] [phone] Catherine Antonio [address] [place] [address] documented as of this encounter Visit Diagnoses Not on filedocumented in this encounter Additional Health Concerns Assessment Noted Time PHQ-9 Depression Total Score: 0 12/03/19 10:31 AM EDT documented as of this encounter Care Teams Visual Basic Programmer Relationship Specialty Start Date End Date Agustin Marrero MD [address] [place] [address] PCP - General Internal Medicine 01/25/14 [facility] 06/13/16 documented as of this encounter
--- OUTSIDE RECORDS SUMMARY | 2024-06-17 06:41 | XMS_ITS | Encounter Summary ---
Author Organization [facility] Address [address] [place] [address] Care Team Providers Care Beta Tester Name Role Phone Agustin Mix Primary Care Provider + Encounter Details Date Type Department Care Team (Late st Contact Info) Description 02/29/2020 Orders Only [facility] Ultrasound [address] [place] [address] Sreedhar Sotelo MD [address] [place], [place] [phone] Social History Tobacco Use Types Packs/Day Years [...] [facility] Liver Transplant Services [address] [place] [address] Dylan Phelps MD [address] [place] [address] documented as of this encounter Visit Diagnoses Not on filedocumented in this encounter Additional Health Concerns Infection Onset Date Last Indicated Resolved Time COVID-19 - Suspected infection 03/05/2020 03/17/2020 03/17/2020 7:55 PM EST COVID-19 - Confirmed infection 05/01/2020 05/07/2020 06/01/2020 5:06 PM EST COVID-19 - Suspected infection 05/10/2020 05/10/2020 05/24/2020 10:34 PM EST documented as of this encounter Care Teams Beta Tester Relationship Specialty Start Date End Date Agustin Mix [address] [place] [address] PCP - General Internal Medicine 04/15/17 documented as of this encounter
--- OUTSIDE RECORDS SUMMARY | 2024-06-17 06:41 | XMS_ITS | Encounter Summary ---
Author Organization [employer] Address [address] [place] [address] 7t [place] [address] Care Team Providers Care Hand Alterations Seamstress Name Role Phone Agustin Marrero MD Primary Care Provide r Reason for Visit * Reason Comments Med Refill Encounter Details Date Type Department Care Team ([facility] st Contact Info) Description 06/04/2023 Refill [facility] [address] [place], [place] [phone] Natasha Nguyen MD [address] [place], [place] [phone] Gastroesophageal reflux disease, unspecified whether esophagitis present [...] Description 06/24/2024 9:00 AM EST Clinical Support [facility] [address] [place] [address] Shwetha Collado, KATALINA [address] [place] [address] 07/05/2024 10:00 AM EDT Office Visit [facility] [address] [place] [phone] Agustin Marrero MD [address] [place] [address] 11/16/2024 10:00 AM EDT Office Visit [facility]ULT [facility] [address] [place] [address] Catherine Antonio [address] [place] [address] documented as of this encounter Visit Diagnoses Diagnosis Gastroesophageal reflux disease, unspecified whether esophagitis present documented in this encounter Care Teams Hand Alterations Seamstress Relationship Specialty Start Date End Date Agustin Marrero MD [address] [place] [address] PCP - General Internal Medicine 01/25/14 [facility] 06/13/16 documented as of this encounter
--- OUTSIDE RECORDS SUMMARY | 2024-06-17 06:42 | XMS_ITS | Encounter Summary ---
Author Organization [employer] Address [address] [place] [address] 7t [place] [address] Care Team Providers Care Solutions Architect Consultant Name Role Phone Agustin Marrero MD Primary Care Provide r Reason for Visit * Reason Onset Date Comments Error 05/12/2023 Encounter Details Date Type Department Care Team ([facility] st Contact Info) Description 05/12/2023 Telephone [facility] [address] [place], [place] [phone] Agustin Marrero MD [address] [place], [place] [phone] Error Social History Tobacco Use Types Packs/Day [...] Description 06/24/2024 9:00 AM EST Clinical Support [facility] [address] [place] [address] Shwetha Collado, RN [address] [place] [address] 07/05/2024 10:00 AM EDT Office Visit [facility] [address] [place] [address] Agustin Marrero MD [address] [place] [address] 11/16/2024 10:00 AM EDT Office Visit [facility] ADULT DENTAL [address] [place] [address] Paco, Catherine [address] [place] [address] documented as of this encounter Visit Diagnoses Not on filedocumented in this encounter Care Teams Solutions Architect Consultant Relationship Specialty Start Date End Date Agustin Marrero MD [address] [place] [address] PCP - General Internal Medicine 01/25/14 [facility] 06/13/16 documented as of this encounter
--- OUTSIDE RECORDS SUMMARY | 2024-06-17 06:42 | XMS_ITS | Encounter Summary ---
Author Organization [employer] Address [address] [facility] 7t [place] [address] Care Team Providers Care Speedboat Operator Name Role Phone Agustin Marrero MD Primary Care Provide r Encounter Details Date Type Department Care Team (Late st Contact Info) Description 05/05/2023 Telephone [facility] [address] [place], [place] [phone] Agustin Marrero MD [address] [place], [place] [phone] Social History Tobacco Use Types Packs/Day Years [...] Description 06/24/2024 9:00 AM EST Clinical Support [facility] [address] [place] [address] Shwetha Collado RN [address] [place] [address] 07/05/2024 10:00 AM EDT Office Visit [facility] [address] [place] [address] Agustin Marrero MD [address] [place] [address] 11/16/2024 10:00 AM EDT Office Visit [facility] ADULT DENTAL [address] [place] [address] Catherine Antonio [address] [place] [address] documented as of this encounter Visit Diagnoses Not on filedocumented in this encounter Care Teams Speedboat Operator Relationship Specialty Start Date End Date Agustin Marrero MD [address] [place] [address] PCP - General Internal Medicine 01/25/14 [facility] 06/13/16 documented as of this encounter
[2024-06-17 06:51] LABS: MANUAL DIFF FLAG NO
[2024-06-17 07:48] LABS: Basophils Percent Auto 0.8 % (0-2); Eosinophils Absolute Auto 0.1 X10*3/uL (0.0-0.4); Eosinophils Percent Auto 1.4 % (0-4); Hematocrit 39.7 % (42.0-52.0); Imm Gran Abs Auto 0.02 X10*3/uL (0.00-0.03); Imm Gran Pct Auto 0.4 % (0.0-0.4); Lymphocytes Absolute Auto 1.4 X10*3/uL (1.2-4.9); Lymphocytes Percent Auto 28.2 % (20-40); Mean Corpuscular HGB Conc 35.3 g/dl (31.0-36.0); Mean Corpuscular Hemoglobin 29.5 pg (27.0-33.0); Mean Corpuscular Volume 83.6 fL (80.0-98.0); Mean Platelet Volume 10.9 fL (9.4-12.4); Monocytes Absolute Auto 0.5 X10*3/uL (0.1-1.2); Monocytes Percent Auto 9.6 % (2-11); Neutrophils Absolute Auto 2.9 x10*3/uL (2.0-8.3); Neutrophils Percent Auto 59.6 % (45-73); Platelet Count 143 X10*3/uL (160-400); Red Blood Count 4.75 X10*6/uL (4.60-5.80); Red Cell Distribution Width 12.8 % (11.0-16.0); White Blood Count 4.9 X10*3/uL (4.8-10.8)
[2024-06-17 08:52] LABS: Alanine Aminotransferase 38 U/L (0-40); Albumin Level 4.3 g/dL (3.5-5.0); Alkaline Phosphatase 108 U/L (39-117); Anion Gap 11 (12-20); Aspartate Amino Transferase 26 U/L (5-37); Bilirubin Total 0.7 mg/dL (0.0-1.0); Blood Urea Nitrogen 19 mg/dL (9-16); Calcium 9.3 mg/dL (8.4-10.2); Carbon Dioxide 22 mmol/L (22-29); Chloride 109 mmol/L (96-108); Estimated Glomerular Filt Rate > 60; Glucose Random 157 mg/dL (60-115); Magnesium 1.5 mg/dL (1.6-2.6); Potassium 4.4 mmol/L (3.3-5.1); Sodium 138 mmol/L (135-145); Total Protein 7.3 g/dL (6.5-8.0)
[2024-06-18 11:53] LABS: Tacrolimus Prograf 2.9 mcg/L
[2024-06-20 12:53] LABS: Alpha Fetoprotein 1.3 ng/mL (<6.1)
== END 2024-06-17 06:38 | disposition home or self-care (01) ==
LOC: HO.LABR 06:37
PROVIDERS: PCP Internal Medicine; Visit Provider Internal Medicine
DX: Z94.4 Liver transplant status (principal); Z85.05 Personal history of malignant neoplasm of liver; Z79.899 Other long term (current) drug therapy
CPT/HCPCS: 36415; 80053; 80197; 82105; 83735; 85025

== ENCOUNTER 2024-06-22 14:52 | Outpatient (AMB) | payer OTHER, SELFPAY ==
--- NOTE | 2024-06-22 15:11 | A.OFFVIS_ITS ---
Intake Visit Reasons: 3M/ERECTILE DYS(SET) Intake Note: Patient is present for 3M/ ECECTILE DYS Urology Medication:SILDENAFIL Antibiotic Allergy:NONE Blood Thinner:NONE Manager Voice Required: No Allergies No Known Allergies [No Known Allergies*] Allergy (Verified 06/22/24 15:12) HPI Comments Details: Edward is a male. He is a patient of . He seen for the following urologic conditions - erectile dysfunction Sami interpretation provided by qualified medical equipment sales in office Prosthetic working well Minimal issues 1 year follow-up Erectile dysfunction - penile prosthetic February 2024 Longstanding Had liver transplant in mid 2019 Has been using 200 mg of Viagra with minimal success Associated symptoms including weakness of stream and incomplete bladder emptying PSA low PFSH Medical History (Updated 03/03/24 @ 09:10 by Ai Jaeger RN) Liver failure Hx of hepatitis Anxiety and depression Tubular adenoma of colon Diabetes 1.5, managed as type 2 Hx of substance abuse GERD (gastroesophageal reflux disease) Surgical History (Updated 03/07/24 @ 06:42 by Patricia Elias RN) History of surgery on lower extremity History of local excision of skin lesion (04/16/23) Hx of colonoscopy Hx of esophagogastroduodenoscopy History of open reduction and internal fixation (ORIF) procedure History of appendectomy S/P liver transplant Social History Household Members: None Are you a primary acute care physical therapist to a significant other at home: No Do you presently have visiting nurse or other home services: No Alcohol intake: never Patient Tobacco Use Status: Former Tobacco user Tobacco use type: Cigarette Years Smoked: 15 Current occupational status: disabled Review of Systems Const Denies chills and Denies fever(s) Card Reports no additional complaints and Denies syncope Resp Denies cough GI Denies abdominal pain and Denies heartburn Reports as per HPI and Denies change in libido Neuro Denies syncope Psych Denies change in libido Endo Denies change in libido Physical Exam Const General: cooperative, healthy appearing, comfortable and no acute distress Orientation/consciousness: patient oriented x3 HEENT Face and sinus: Yes normal facial exam Mouth: moist mucous membranes Neck Neck: Yes normal visual inspection, Yes full ROM and Yes trachea midline Chest Chest palpation & inspection: normal inspection of the chest Resp Effort & Inspection: normal respiratory effort, able to speak in complete sentences and no respiratory distress GI Inspection: Yes normal to inspection Back/Spine/Pelvis Cervical Spine: normal cervical lordosis Thoracic/Lumbar Spine: thoracic and lumbar spine normal to inspection Skin General skin exam: no rashes or lesions noted Neuro General: patient oriented x3, gait normal, tone normal and moves all extremities Extrem General: Yes normal to inspection and Yes capillary refill normal Assessment & Plan Assessment & Plan (1) Erectile dysfunction due to arterial insufficiency: Comment: Trial 10 mg tadalafil daily Code(s): N52.01 - Erectile dysfunction due to arterial insufficiency Category: Medical Plan Twelve month follow-up Patient Instructions: This note is constructed using voice recognition software. While every effort has been made to ensure accuracy quality assurance qa lab analyst errors may have been included. Imaging studies, laboratory and physical exam results were discussed and reviewed in detail. No major barriers to patient understanding were identified. An opportunity to ask questions regarding the treatment plan was provided. All questions were answered. The patient expressed understanding and agreement with the above treatment plan. The patient is aware they should contact our office by phone for worsening of their current condition or the appearance of new urologic symptoms. Compliance is encouraged with any medications and followup testing that is ordered. It is a privilege to participate in the urologic care of your patient. If you have any questions or concerns regarding treatment for the above conditions, or other urologic issues, please do not hesitate to contact me. The office telephone contact is [phone]. Sincerely, Dr Leonidas Miranda MD, TR [facility] - Urology Compassionate Specialist Care for the Genitourinary System Coding Level of Care Code Est Pt Level 3 (83528) Diagnoses Erectile dysfunction due to arterial insufficiency N52.01
--- OUTSIDE RECORDS SUMMARY | 2024-06-22 17:59 | XMS_ITS | Encounter Summary ---
Author Organization [employer] Address [address] [place] [address] 7t [place] [address] Care Team Providers Care Pipe Joints Supervisor Name Role Phone Agustin Marrero MD Primary Care Provide r Reason for Visit * Reason Onset Date Comments Med Refill 06/07/2024 Encounter Details Date Type Department Care Team ([facility] st Contact Info) Description 06/07/2024 Refill [facility] [address] [place], [place] [phone] Agustin Marrero MD [address] [place] [address] Primary insomnia Social History Tobacco Use Types [...] 10 MG tablet To be sent to: [facility]/pharmacy #[id number] [place] [address] - [address] [place] [address] documented in this encounter Plan of Treatment Upcoming Encounters Date Type Department Care Team (Late st Contact Info) Description 06/24/2024 9:00 AM EST Clinical Support [facility] [address] [place] [address] Shwetha Collado RN [address] [place] [address] 07/05/2024 10:00 AM EDT Office Visit [facility] [address] [place] [address] Agustin Marrero MD [address] [place] [address] 11/16/2024 10:00 AM EDT Office Visit [facility] ADULT DENT[facility] [address] [place] [address] Catherine Antonio [address] [place] [address] documented as of this encounter Visit Diagnoses Diagnosis Primary insomnia Persistent disorder of initiating or maintaining sleep documented in this encounter Additional Health Concerns Assessment Noted Time PHQ-9 Depression Total Score: 0 12/03/19 10:31 AM EDT documented as of this encounter Care Teams Pipe Joints Supervisor Relationship Specialty Start Date End Date Agustin Marrero MD [address] [place] [address] PCP - General Internal Medicine 01/25/14 [facility] 06/13/16 documented as of this encounter
--- OUTSIDE RECORDS SUMMARY | 2024-06-22 17:59 | XMS_ITS | Encounter Summary ---
Author Organization [employer] Address [address] [place] [address] 7t [place] [address] Care Team Providers Care Civil Laboratory Technician Name Role Phone Agustin Marrero MD Primary Care Provide r Reason for Visit * Reason Comments Med Refill Encounter Details Date Type Department Care Team ([facility] st Contact Info) Description 2024 Refill [facility] [address] [place], [place] [phone] Agustin Marrero MD [address] [place] [address] Social History Tobacco Use Types Packs/Day Years [...] Description 06/24/2024 9:00 AM EST Clinical Support [facility]INE [address] [place] [address] Shwetha Collado RN [address] [place] [address] 07/05/2024 10:00 AM EDT Office Visit [facility]INE [address] [place] [address] Agustin Marrero MD [address] [place] [address] 11/16/2024 10:00 AM EDT Office Visit [facility] ADULT DENTAL [address] [place] [address] Catherine Antonio [address] [place] [address] documented as of this encounter Visit Diagnoses Not on filedocumented in this encounter Additional Health Concerns Assessment Noted Time PHQ-9 Depression Total Score: 0 12/03/19 24 10:31 AM EDT documented as of this encounter Care Teams Civil Laboratory Technician Relationship Specialty Start Date End Date Agustin Marrero MD [address] [place] [address] PCP - General Internal Medicine 01/25/14 [facility] 06/13/16 documented as of this encounter
--- OUTSIDE RECORDS SUMMARY | 2024-06-22 17:59 | XMS_ITS | Encounter Summary ---
Author Organization [employer] Address [address] [place] [address] 7t [place] [address] Care Team Providers Care Cutting Torch Operator Name Role Phone Agustin Marrero MD Primary Care Provide r Reason for Visit * Reason Comments Med Refill Encounter Details Date Type Department Care Team ([facility] st Contact Info) Description 10/20/2023 Refill [facility] [address] [place], [place] [phone] Agustin Marrero MD [address] [place] [address] Chronic midline low back pain without sciatica [...] 9:00 AM EST Clinical Support [facility] MEDICINE [address] [place] [address] Shwetha Colaldo RN [address] [place] [address] 07/05/2024 10:00 AM EDT Office Visit [facility] MED[facility] [address] [place] [address] Agustin Marrero MD [address] [place] [address] 11/16/2024 10:00 AM EDT Office Visit [facility] ADULT DENTAL [address] [place] [address] Catherine Antonio [address] [place] [address] documented as of this encounter Visit Diagnoses Diagnosis Chronic midline low back pain without sciatica documented in this encounter Additional Health Concerns Assessment Noted Time PHQ-9 Depression Total Score: 5 06/16/19 24 9:35 AM EST documented as of this encounter Care Teams Cutting Torch Operator Relationship Specialty Start Date End Date Agustin Marrero MD [address] [place] [address] PCP - General Internal Medicine 01/25/14 [facility] 06/13/16 documented as of this encounter
--- OUTSIDE RECORDS SUMMARY | 2024-06-22 17:59 | XMS_ITS ---
Author Organization [facility] Reji bill [place] Address [address] [facility] [place] [address] Care Team Providers Care Physical Chemistry Professor Name Role Phone Nura Connelly MD, Agustin Primary Care Provide r Unavailable Yovanny Long Unavailable [phone] REASON FOR VISIT last visit pcp 12/31/23, [...] Orally Once a day Active Vitamin D3 818678 UNIT/GM as directed Active Losartan Potassium 25 [...] nsmoker Encounters Encounter Location Date Provider Diagnosis [facility] [address] [place] [address] 05/26/2024 Yovanny Long Onychomycosis B35.1 ; Pain [...] Follow Up: 2 Months, Reason: Provider Name:Sun Kenney Silver kenney, 08/29/2024 11:00:00 AM, [address] [facility], [place], [address], Procedure Notes * Category Sub-Category Detail Notes [...] use of a nail nipper and/or dremel-type snag grinder, to a more viable healthy nail [...] to maintain effectiveness in symptomatic relief - 63955 Progress Notes * Edward JONDOB:[birth year] (59 yo M)Acc No.[id number]:05/26/2024 Progress Note Patient:?Salome JON Provider:?Yovanny Long D.P.M. :1965???Age:59 Y???Sex:Male New e:05/26/2024 Address:[address] [place], [place] [phone] Pcp:Agustin Connelly MD Subjective: * Chief Complaints: [...] as directed Orally , Taking Vitamin D3 268627 UNIT/GM Powder as directed , Taking Losartan [...] T6, T7, T8, T9.? Assessment: * Assessment: 1.?Onychomycosis - B35.1 (Pr imary)???2.?Pain in right toe(s) - M79.674???3.?Pain in left toe(s) - M79.675??? Plan: * [...] use of a nail nipper and/or dremel-type snag grinder, to a more viable healthy nail [...] to maintain effectiveness in symptomatic relief - 17046.? * Procedure Codes:?92790 SRAVANI THOMAS, 6 OR MORE * Follow Up:?2 Months * Images: * The named appointment provid er may or may not be the originator of this progress note, and it is not deemed complete until electronically signed by the appointment provider. Sign off status: Pending * Provider:?Yovanny Long D.P.M. Date:?09/2024 Generated for Francisco reagan/Eloina/eTransmitting on:?06/22/2024 05:58 PM EST History and Physical Notes * [...]
--- OUTSIDE RECORDS SUMMARY | 2024-06-22 17:59 | XMS_ITS | Encounter Summary ---
Author Organization [email or web address] Address [address] [place] [address] 7t [place] [address] Care Team Providers Care Dependency Case Manager Name Role Phone Agustin Marrero MD Primary Care Provide r Reason for Visit * Reason Onset Date Comments Med Refill 06/16/2024 Encounter Details Date Type Department Care Team (Late st Contact Info) Description 06/16/2024 Refill [facility] MEDICINE [address] [place], [place] [phone] Agustin Marrero MD [address] [place] [address] Chronic midline low back pain without sciatica [...] White LPN - 06/16/2024 11:31 AM EST PUNCH PRESS OPERATOR checked on 06/16/24. Next appointment 07/05/24. * Telephone Encounter - Manjeet Mclaughlin - 06/16/2024 11:25 AM EST TC from pt requesting medication refill. Medications needing refill : gabapentin (Neurontin) 300 MG capsule To be sent to: [facility]/pharmacy #[id number] documented in this encounter Plan of Treatment Upcoming Encounters Date Type Department Care Team (Late st Contact Info) Description 06/24/2024 9:00 AM EST Clinical Support [facility] MEDICINE [address] [place] [address] Shwetha Collado RN [address] [place] [address] 07/05/2024 10:00 AM EDT Office Visit [facility] MEDICINE [address] [place] [address] Agustin Marrero MD [address] [place] [address] 11/16/2024 10:00 AM EDT Office Visit [facility] ADULT DENTAL [address] [place], [place] [phone] Catherine Antonio [address] [place], [place] [phone] documented as of this encounter Visit Diagnoses Diagnosis Chronic midline low back pain without sciatica documented in this encounter Additional Health Concerns Assessment Noted Time PHQ-9 Depression Total Score: 0 12/03/19 10:31 AM EDT documented as of this encounter Care Teams Dependency Case Manager Relationship Specialty Start Date End Date Agustin Marrero MD [address] [place] [address] PCP - General Internal Medicine 01/25/14 [facility] 06/13/16 documented as of this encounter
--- OUTSIDE RECORDS SUMMARY | 2024-06-22 17:59 | XMS_ITS | Clinical Summary ---
Author Organization [employer] Address [address] [place] [address] 7[address] [place] [address] Care Team Providers Care Sample Tailor Name Role Phone Agustin Marrero MD Primary Care Provide r Allergies No known active allergies Medications NovoLOG FLEXPEN 100 UNIT/ML penIndications:Ty pe 2 diabetes mellitus without complication, with long-term current use of insulin ([facility]) Use Insulin as per sliding scale TID (BG 150-200mg/dL: 10 units, 201-250 : 12 units, 251-300: 14 units, 301-350: 16 units, 351-400 18 units, >400 20 units 15 mL Active Blood Glucose Monitoring Suppl (PostSharp TechnologiesStyle [place] Lite) w/Device kit TEST 1 TIMES BY INTRADERMAL ROUTE EVERY DAY Active Continuous Blood Gluc Mri Specialist (FreeStyle Arvin 2 [place]) device Active ferrous sulfate 325 (65 Fe) [...] OLINDA TABLETA TODOS LOS D CON LA AUDIE Active naloxone (Narcan) 4 mg/0.1 mL nasal [...] complication, with long-term current use of insulin ([facility]) USE 1 EACH DIRECTED THREE [...] complication, with long-term current use of insulin ([facility]) USE DIRECTED EVERY 14 DAYS [...] A MEAL 90 capsule 1 024 Active cholecalciferol (Vitamin D3) 25 MCG (1000 UT) tabletIndications :Type 2 diabetes mellitus without complication, with long-term current use of insulin ([facility]) TAKE 1 TABLET BY MOUTH EVERY DAY 90 tablet 1 024 Active FREESTYLE LITE test stripIndications: Type 2 diabetes mellitus without complications (CMS/[facility]) USE TO TEST 3 TIMES DAILY 300 [...] TWICE A DAY 60 capsule 025 Active sildenafil (Viagra) 100 MG tablet TAKE 1 TABLET 1 HOUR BEFORE SEXUAL RELATIONS ONCE DAILY NEEDED. 12 tablet 4 025 Active sildenafil (Viagra) 100 MG tablet TAKE 1 TABLET 1 HOUR BEFORE SEXUAL RELATIONS ONCE DAILY NEEDED. 12 tablet 4 024 2024 Discontinued gabapentin (Neurontin) 300 MG capsuleIndication s:Chronic midline [...] midline low back pain without sciatica Last [employer] Agreement: 09/01/23 Normal oral exam 12/17/2023 Class [...] for mildly dilated CBD. ERCP 11/21/2022 at [facility] showed single severe biliary stricture found [...] CBD. 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 The stricture was post-surgical. A biliary sphinterotomy was performed. A temporary stent was placed in the CBP They recommended to repeat ERCP in 3 months to remove stent. Pt is already scheduled for 02/20/2023 for ENDOSCOPIC RETROGRADE CHOLANGIOPANCREATOGRAPHY WITH REMOVAL OF FOREIGN BODY(S)/STENT(S)/PANCREATIC DUCT(S) WITH POSSIBLE MODERATE SEDATION [70231 (CPT??)] Partial edentulism 01/14/2023 Hospital discharge follow-up [...] CBD. Pt is s/p ERCP 11/21/2022 at [facility] Impression: A single severe biliary stricture [...] -follow up PEth -follow up blood cultures Chronic abdominal pain [...] local wound injections. He was seen by specialist employee labor relations at [facility] who discussed that he needed someone [...] local wound injections. He was seen by specialist employee labor relations at [facility] who discussed that he needed someone [...] was refer to the Pain Clinic at [facility] he has an appointment for 08/03/2022. [...] >400 20 units He was discharged from [facility] diabetes clinic due to non compliance. He isunder the care of [facility] Endocrinology given that he is a liver transplant patient, last seen 2024. Hgb A1c 04/05/2024: 7 from 7.4 Eye exam ordered previous visit Microalbumin 11/01/2020 was 43 , ordered today Foot check risk of zero Pt advised to: adhere to diabetic diet Previous visit pt was referred to I&C Tech and DE Plan: continue current regimen Pt [...] >400 20 units He was discharged from [facility] diabetes clinic due to non compliance. He isunder the care of [facility] Endocrinology given that he is a liver transplant patient, last seen 04/21/2023. Hgb A1c 12/03/2023: 7.4 from 7.1 Eye exam ordered previous visit Microalbumin 11/01/2020 was 43 Foot check risk of zero Pt advised to: adhere to diabetic diet Previous visit pt was referred to I&C Tech and DE Plan: continue current regimen Pt [...] >400 20 units He was discharged from [facility] diabetes clinic due to non compliance. He isunder the care of [facility] Endocrinology given that he is a liver transplant patient, last seen 04/21/2023. Hgb A1c 06/16/2023: 7.1 Eye exam ordered previous visit Microalbumin 11/01/2020 was 43 Foot check risk of zero Pt advised to: adhere to diabetic diet Previous visit pt was referred to I&C Tech and DE Plan: continue current regimen Pt [...] >400 20 units He was discharged from [facility] diabetes clinic due to non compliance. He is supposed to be under the care of [facility] Endocrinology given that he is a liver transplant patient, last seen 08/01/2021. He had an appointment scheduled in August but he no showed. Today he tells me he will stay at [facility] Hgb A1c 02/12/2023 was 6.7 Eye exam ordered previous visit Microalbumin 11/01/2020 was 43 Foot check risk of zero Pt advised to: adhere to diabetic diet Previous visit pt was referred to I&C Tech and DE Plan: continue current regimen Pt [...] >400 20 units He was discharged from [facility] diabetes clinic due to non compliance. He is supposed to be under the care of [facility] Endocrinology given that he is a liver transplant patient, last seen 08/01/2021. He had an appointment scheduled in August but he no showed. Today he tells me he will stay at [facility] Hgb A1c 09/02/2021 was 6.5 Eye exam ordered previous visit Microalbumin 11/01/2020 was 43 Foot check risk of zero Pt advised to: adhere to diabetic diet Previous visit pt was referred to I&C Tech and DE Plan: continue current regimen check [...] >400 20 units He was discharged from [facility] diabetes clinic due to non compliance He is now under the care of [facility] Endocrinology given that he is a liver transplant patient, last seen 08/01/2021 Hgb A1c 09/02/2021 was 6.5 Eye exam ordered previous visit Microalbumin 11/01/2020 was 43 Foot check risk of zero Pt advised to: adhere to diabetic diet Previous visit pt was referred to I&C Tech and DE Plan: continue current regimen check [...] >400 20 units He was discharged from [facility] diabetes clinic due to non compliance He is now under the care of [facility] Endocrinology given that he is a liver transplant patient, last seen 08/01/2021 Hgb A1c 04/22/2021 was 6.2 Eye exam ordered previous visit Microalbumin 11/01/2020 was 43 Foot check risk of zero Pt advised to: adhere to diabetic diet Previous visit pt was referred to I&C Tech and DE Plan: continue current regimen check [...] the care of the liver clinic at [facility] Assessment & Plan (04/22/2022 8:26 AM [...] Encounters Date Type Department Care Team Description 06/20/2024 Refill [facility] MEDICINE [address] [place] [address] Agustin Marrero MD 06/16/2024 Refill [facility] MEDICINE [address] [place] [address] Agustin Marrero MD Chronic midline low back pain without sciatica 06/07/2024 Travel 06/07/2024 Refill [facility] MEDICINE [address] [place] [address] Agustin Marrero MD Primary insomnia 06/07/2024 Refill [facility] MEDICINE [address], [place] [address] Agustin Marrero MD Chronic midline low back pain without sciatica 05/31/2024 9:00 AM EST Clinical Support [facility] MEDICINE [address] [place] [address] Patricia Harrell RN Chronic midline low back pain without sciatica (Primary Dx) 05/31/2024 Travel 05/17/2024 10:00 AM EST Office Visit [facility] ADULT DENTAL [address] [place] [address] Lorraine Polk Dental plaque (Primary Dx); Dental calculus; Partial edentulism, unspecified edentulism class 05/13/2024 Refill [facility] MEDICINE [address], [place] [address] Agustin Marrero MD 05/11/2024 Telephone [facility] MEDICINE [address], [place] [address] Agustin Marrero MD Medication Question 05/05/2024 Refill [facility] [address], [place] [address] Agustin Marrero MD 05/03/2024 Refill [facility] [address], [place] [address] Agustin Marrero MD Primary insomnia 05/03/2024 Refill [facility] [address], [place] [address] Agustin Marrero MD Chronic midline low back pain without sciatica 04/25/2024 Refill [facility] [address], [place] [address] Natasha Wall MD Chronic midline low back pain without sciatica 04/14/2024 Telephone [facility] MEDICINE [address], [place] [address] Agustin Marrero MD Med Refill 04/05/2024 9:15 AM EST Office Visit [facility] MEDICINE [address], [place] [address] Agustin Marrero MD Type 2 diabetes mellitus without complication, with long-term current use of insulin ([facility]) (Primary Dx); Other male erectile dysfunction; Elevated serum creatinine; Chronic midline low back pain without sciatica; Primary insomnia 04/05/2024 Refill [facility] [address], [place] [address] Agustin Marrero MD Type 2 diabetes mellitus without complications (CMS/HCC) 04/05/2024 Travel 03/30/2024 Telephone [facility] MEDICINE [address], [place] [address] Agustin Marrero MD Chart Prep 03/29/2024 9:45 AM EST Office Visit [facility] MEDICINE [address] [place] [address] Cyndi Sandhu FNP Chronic midline low back pain without sciatica (Primary Dx); Long-term current use of opiate analgesic 03/29/2024 Travel 03/24/2024 Refill [facility] MEDICINE [address] [place] [address] Agustin Marrero MD Chronic midline low back [...] Description 06/24/2024 9:00 AM EST Clinical Support [facility] MEDICINE [address] [place] [address] Shwetha Collado, RN [address] [place] [address] 07/05/2024 10:00 AM EDT Office Visit [facility] MEDICINE [address] [place] [address] Agustin Marrero MD [address] [place] [address] 11/16/2024 10:00 AM EDT Office Visit [facility] ADULT DENTAL [address] [place] [address] Paco, Catherine [address] [place] [address] Health Maintenance Due Date Last Done Comments [...] Colorectal Cancer Screening 06/28/2024 Diabetes: Hemoglobin A1C 07/04/20242 024, 12/03/2023, 06/16/2023, Additional history exists Eye Exam 09/22/2024 09/22/2022, 0608/2022, 09/22/2022, Additional history exists Dental X-Ray: Bitewings 10/13/2024 10/13/2023, 05/15 Dental Oral Exam 11/15/2024 05/17/2024, , 05/15/2022 Dental Prophylaxis 11/15/2024 05/17/2024, 0 10/13/2023, 01/14/2023, Additional history exists Depression Screening 12/02/2024 12/03/2023, 12/03/19 Alcohol/Substance Use Screening 04/05/2025 04/05/2024 Diabetes: Urine [...] complication, with long-term current use of insulin (CMS/[facility]) POCT GLYCATED HEMOGLOBIN, TOTAL Routine 04/05/2024 9:12 AM EST Type 2 diabetes mellitus without complication, with long-term current use of insulin (CMS/[facility]) POCT ZOË-14 URINE DRUG SCREEN [...] - 05/31/2024 1:31 PM EST UTOX cup Lot#[id number] Exp. 01/12/26 Internal Pass Control Negative for all substances us Agustin Connelly MD POINT OF CARE TEST EN TER/EDIT ORDERABLES Final Result * PSA, Screen (04/06/2024 8:10 AM EST) PSA, Total 0.19 <0.05 - 4.0 ng/mL [facility] Comment:PSA methodology: Joe Lopes i ChemiluminescentMicroparticle Immunoassay (CMIA) Blood Venous blood specimen / Unknown 04/06/2024 8:10 AM EST 04/06/2024 11:51 AM EST Agustin Connelly MD LAB BLOOD ORDERABLES Final Result Performing Organization Address City/[facility]/ZIP Co de Phone Number [facility] [address] [place] [phone] * (ABNORMAL) Albumin, Random Urine W/Creatinine (04/06/2024 8:10 AM EST) Creatinine, Urine 216.22 mg/dL [facility] Microalbumin Urine 68.0 mg/L [facility] Microalbum Creatinine Ratio Ur 31.4(H) <30 ug/mg cr [facility] Comment:Albumin/Creatinine R atio Reference Ranges: Normal: < 30 ug/mg creatinine Microalbuminuria: 30 - 300 ug/mg creatinineClinical Albuminuria: > 300 ug/mg creatinine Urine (Urine, Random) 04/06/2024 8:10 AM EST 04/06/2024 11:40 AM EST Agustin Connelly MD LAB URINE ORDERABLES Final Result Performing Organization Address City/[facility]/ZIP Co de Phone Number [facility] [address] [place] [phone] * (ABNORMAL) Lipid Panel, Standard (04/06/2024 8:10 AM EST) Triglycerides 109 <150 mg/dL [facility] Comment:Desirable Triglyceri de: less than 150 mg/dLBorderline High Triglyceride 150-199 mg/dLHigh Triglyceride: 200-499 mg/dLVery High Triglyceride: greater than or equal to 5OO mg/dL Cholesterol 177 <200 mg/dL [facility] Comment:Desirable Cholestero l: less than 200 mg/dLBorderline High Cholesterol: 200-239 mg/dLHigh Cholesterol: greater than 239 mg/dL LDL Cholesterol Calculated 115(H) <100 mg/dL [facility] Comment:Desirable LDL: less than 100 mg/dLNear Optimal/Above Optimal LDL: 110- 129 mg/dLBorderline High LDL: 130-159 mg/dLHigh LDL: 160-189 mg/dLVery High LDL: greater than or equal to 190 mg/dL HDL Cholesterol 41 >40 mg/dL [facility] Comment:Desirable HDL: great er than 40 mg/dL Note: This HDL assay may give artificially low results in patients with liver disease. Blood Venous blood specimen / Unknown 04/06/2024 8:10 AM EST 04/06/2024 11:51 AM EST us Agustin Connelly MD LAB BLOOD ORDERABLES Final Result [facility] [address] [place] [phone] [phone] * (ABNORMAL) Comprehensive Metabolic Panel (04/06/2024 8:10 AM EST) Sodium 137 135 - 145 mmol/L [facility] Potassium 4.5 3.3 - 5.1 mmol/L [facility] Chloride 106 96 - 108 mmol/L [facility] Carbon Dioxide 27 22 - 29 mmol/L [facility] Anion Gap 9(L) 12 - 20 [facility] Urea Nitrogen (BUN) 16 9 - 16 mg/dL [facility] Creatinine, Serum 1.02 0.5 - 1.4 mg/dL [facility] Estimated Glomerular Filt Rate >60 [facility] Comment:Chronic Kidney Disea se: Estimated GFR < 60 mL/min/1.03t9Eoyezq Kidney Disease: Estimated GFR < 15 mL/min/1.73m2 Glucose 160(H) 60 - 115 mg/dL [facility] Calcium 9.0 8.4 - 10.2 mg/dL [facility] Bilirubin, Total 0.6 0.0 - 1.0 mg/dL [facility] Aspartate Amino Transferase 36 5 - 37 U/L [facility] Alanine Aminotransferase 48(H) 0 - 40 U/L [facility] Total Protein 7.1 6.5 - 8.0 g/dL [facility] Albumin Level 4.3 3.5 - 5.0 g/dL [facility] Alkaline Phosphatase 112 39 - 117 U/L [facility] Blood Venous blood specimen / Unknown 04/06/2024 8:10 AM EST 04/06/2024 11:51 AM EST Agustin Connelly MD LAB BLOOD ORDERABLES Final Result [facility] [address] [place] [phone] * (ABNORMAL) POCT HGB A1C (04/05/2024 9:12 AM EST) Hemoglobin A1C 7.0(A) 4.0 - 6.0 % QC Media Lot # [id number] Lot# Expiration Date [id number] Blood 04/05/2024 9:12 AM EST Agustin Connelly MD POINT OF CARE TEST EN TER/EDIT ORDERABLES Final Result * Colonoscopy (06/28/2021) Colonoscopy Normal Normal 06/28/2021 Narrative Shanel Bo - 06/28/2021 9:58 AM EST Recommended 3 year follow up per GI notes ( [facility] ) Historical Provider HEALTH MAINTENANCE Edited Result - Final from Last 3 Months or Most Recently Relevant to Health Maintenance Insurance DENTAL - [facility] * Guarantor: Edward Gonzalez Account Type Relation to Patient Date of Phone Billing Address Personal/Family Self [address] [facility] [address] [place] Care Teams Sample Tailor Relationship Specialty Start Date End Date Agustin Marrero MD [address] [place] [address] [place] PCP - General Internal Medicine 01/25/14 [facility] 06/13/16
--- OUTSIDE RECORDS SUMMARY | 2024-06-22 17:59 | XMS_ITS | Encounter Summary ---
Author Organization [employer] Address [address] [place] [address] 7t [place] [address] Care Team Providers Care Case Operator Name Role Phone Agustin Marrero MD Primary Care Provide r Reason for Visit * Reason Onset Date Comments Med Refill 03/01/2024 Encounter Details Date Type Department Care Team ([facility] st Contact Info) Description 03/01/2024 Telephone [facility] MEDICINE [address] [place], [place] [phone] Agustin Marrero MD [address] [place] [address] Med Refill Social History Tobacco Use Types [...] 03/01/2024 2:24 PM EST Received fax from [facility] requesting script clarification need directions. * Telephone Encounter - Manjeet Mclaughlin - 03/01/2024 2:21 PM EST TC from pt requesting medication refill. Medications needing refill : traMADol (Ultram) 50 MG table To be sent to: [facility]/pharmacy #[id number] documented in this encounter Plan of Treatment Upcoming Encounters Date Type Department Care Team (Late st Contact Info) Description 06/24/2024 9:00 AM EST Clinical Support [facility] MEDICINE [address] [place] [phone] Shwetha Collado RN [address] [place] [address] 07/05/2024 10:00 AM EDT Office Visit [facility] MEDICINE [address] [place] [address] Agustin Marrero MD [address] [place] [address] 11/16/2024 10:00 AM EDT Office Visit [facility] ADULT DENTAL [address] [place] [address] Catherine Antonio [address] [place] [address] documented as of this encounter Visit Diagnoses Not on filedocumented in this encounter Additional Health Concerns Assessment Noted Time PHQ-9 Depression Total Score: 0 12/03/19 10:31 AM EDT documented as of this encounter Care Teams Case Operator Relationship Specialty Start Date End Date Agustin Marrero MD [address] [place] [address] PCP - General Internal Medicine 01/25/14 [facility] 06/13/16 documented as of this encounter
--- OUTSIDE RECORDS SUMMARY | 2024-06-22 17:59 | XMS_ITS | Encounter Summary ---
Author Organization [facility] Address [address] [place] [address] Care Team Providers Care Car Rental Agency Manager Name Role Phone Agustin Mix Primary Care Provider + Encounter Details Date Type Department Care Team (Late st Contact Info) Description 01/01/2021 Orders Only [facility] Nuclear Medicine [address] [place] [address] Sreedhar Sotelo MD [address] [place], [place] [phone] Social History Tobacco Use Types Packs/Day Years [...] Info) Description 08/01/2024 11:30 AM EDT Follow-Up [facility] Liver Transplant Services [address] [place] [address] Dylan Phelps MD [address] [place] [phone] documented as of this encounter Visit Diagnoses Not on filedocumented in this encounter Care Teams Car Rental Agency Manager Relationship Specialty Start Date End Date Agustin Mix [address] [place] [address] PCP - General Internal Medicine 04/15/17 documented as of this encounter
--- OUTSIDE RECORDS SUMMARY | 2024-06-22 17:59 | XMS_ITS | Encounter Summary ---
Author Organization [employer] Address [address] [place] [address] 7t [place] [address] Care Team Providers Care Biometric Screener Name Role Phone Agustin Marrero MD Primary Care Provide r Reason for Visit * Reason Onset Date Comments Med Refill 03/01/2024 Encounter Details Date Type Department Care Team ([facility] st Contact Info) Description 03/01/2024 Telephone [facility] [address] [place], [place] [phone] Agustin Marrero MD [address] [place] [address] Med Refill Social History Tobacco Use Types [...] 2:22 PM EST Medication was sent to [facility]#[id number] on 02/29/24. * Telephone Encounter - Manjeet Mclaughlin - 03/01/2024 2:17 PM EST TC from pt requesting medication refill. Medications needing refill : 1- zolpidem (Ambien) 10 MG tablet To be sent to: [facility]/pharmacy #[id number] documented in this encounter Plan of Treatment Upcoming Encounters Date Type Department Care Team (Late st Contact Info) Description 06/24/2024 9:00 AM EST Clinical Support [facility] [address] [place] [address] Shwetha Collado RN [address] [place] [address] 07/05/2024 10:00 AM EDT Office Visit [facility] [address] [place] [address] Agustin Marrero MD [address] [place] [address] 11/16/2024 10:00 AM EDT Office Visit [facility] ADULT DENTAL [address] [place], [place] [phone] Catherine Antonio [address] [place], [place] [phone] documented as of this encounter Visit Diagnoses Not on filedocumented in this encounter Additional Health Concerns Assessment Noted Time PHQ-9 Depression Total Score: 0 12/03/19 10:31 AM EDT documented as of this encounter Care Teams Biometric Screener Relationship Specialty Start Date End Date Agustin Marrero MD [address] [place], [place] [phone] PCP - General Internal Medicine 01/25/14 [facility] 06/13/16 documented as of this encounter
--- OUTSIDE RECORDS SUMMARY | 2024-06-22 17:59 | XMS_ITS | Encounter Summary ---
Author Organization [facility] Address [address] [place] [address] Care Team Providers Care Sas Developer Name Role Phone Agustin Mix Primary Care Provider + Encounter Details Date Type Department Care Team (Late st Contact Info) Description 01/13/2020 Orders Only [facility] 2 Rad ACT 1 [address] [place] [address] Pawel Sanchez MD [address] [place] [address] Social History Tobacco Use Types Packs/Day Years [...] Description 08/01/2024 11:30 AM EDT Follow-Up [facility] Liver Transplant Services [address] [place], [place] [phone] Dylan Phelps MD [address] [place] [address] documented as of this encounter Visit Diagnoses Not on filedocumented in this encounter Additional Health Concerns Infection Onset Date Last Indicated Resolved Time COVID-19 - Suspected infection 03/05/2020 03/17/2020 03/17/2020 7:55 PM EST COVID-19 - Confirmed infection 05/01/2020 05/07/2020 06/01/2020 5:06 PM EST COVID-19 - Suspected infection 05/10/2020 05/10/2020 05/24/2020 10:34 PM EST documented as of this encounter Care Teams Sas Developer Relationship Specialty Start Date End Date Agustin Mix [address] [place] [address] PCP - General Internal Medicine 04/15/17 documented as of this encounter
--- OUTSIDE RECORDS SUMMARY | 2024-06-22 17:59 | XMS_ITS | Encounter Summary ---
Author Organization [facility] Address [address] [place] [address] Care Team Providers Care Marking Devices Assembler Name Role Phone Agustin Mix Primary Care Provider + Encounter Details Date Type Department Care Team (Late st Contact Info) Description 07/23/2023 Orders Only [facility] Interventional Radiology [address] [place] [address] Pawel Sanchez MD [address] [place] [address] Social History Tobacco Use Types Packs/Day Years [...] Info) Description 08/01/2024 11:30 AM EDT Follow-Up [facility] Liver Transplant Services [address] [place] [address] Dylan Phelps MD [address] [place] [address] documented as of this encounter Visit Diagnoses Not on filedocumented in this encounter Care Teams Marking Devices Assembler Relationship Specialty Start Date End Date Agustin Mix [address] [place] [address] PCP - General Internal Medicine 04/15/17 documented as of this encounter
--- OUTSIDE RECORDS SUMMARY | 2024-06-22 17:59 | XMS_ITS ---
Author Organization [facility] Address [address] [place] [address] Care Team Providers Care Trains Dispatcher Supervisor Name Role Phone Nura Connelly MD, Agustin Primary Care Provide r Yovanny Jackson [phone] REASON FOR VISIT No Show Encounters Encounter Location Date Provider Diagnosis [facility] [address] [place] [address] 05/26/2024 Yovanny Long Plan Of Treatment Next Appt Details Provider Name:Sun kenney, 08/29/2024 11:00:00 AM, [address] [facility], [place], [address], Progress Notes * Edward JONDOB:[birth year] (59 yo M)Acc No.[id number]:05/26/2024 Patient:?Salome JON :1965???Age:59 Y???Sex:Male Address:[address] [place] [address], [place] [address] * true * Date:? Generated for Printi tez/Eloina/eTransmitting on:?06/22/2024 05:59 PM EST
--- OUTSIDE RECORDS SUMMARY | 2024-06-22 17:59 | XMS_ITS | Encounter Summary ---
Author Organization [employer] Address [address] [place] [address] 7t [place] [address] Care Team Providers Care Chemist Enzymes Name Role Phone Agustin Marrero MD Primary Care Provide r Reason for Visit * Reason Onset Date Comments Med Refill 06/07/2024 Encounter Details Date Type Department Care Team (Late st Contact Info) Description 06/07/2024 Refill [facility] MEDICINE [address] [place], [place] [phone] Agustin Marrero MD [address] [place] [address] Chronic midline low back pain without sciatica [...] EST TC to pt via S ID# [id number]. Pt came to chronic pain group on 05/31/24 but left, staying groups make him feel nervous. DATA ASSISTANT NV r/s to 06/24/24 @9am at [facility]. * Telephone Encounter - Manjeet Mclaughlin - 06/07/2024 3:28 PM EST TC from pt requesting medication refill. Medications needing refill : traMADol (Ultram) 50 MG tablet To be sent to: [facility]/pharmacy #[id number] documented in this encounter Plan of Treatment Upcoming Encounters Date Type Department Care Team (Late st Contact Info) Description 06/24/2024 9:00 AM EST Clinical Support [facility] MEDICINE [address] [place], [place] [phone] Shwetha Collado RN [address] [place] [address] 07/05/2024 10:00 AM EDT Office Visit [facility] MEDICINE [address] [place] [address] Agustin Marrero MD [address] [place] [address] 11/16/2024 10:00 AM EDT Office Visit [facility] ADULT DENTAL [address] [place] [address] Paco, Catherine [address] [place] [address] documented as of this encounter Visit Diagnoses Diagnosis Chronic midline low back pain without sciatica documented in this encounter Additional Health Concerns Assessment Noted Time PHQ-9 Depression Total Score: 0 12/03/19 24 10:31 AM EDT documented as of this encounter Care Teams Chemist Enzymes Relationship Specialty Start Date End Date Agustin Marrero MD [address] [place] [address] PCP - General Internal Medicine 01/25/14 [facility] 06/13/16 documented as of this encounter
--- OUTSIDE RECORDS SUMMARY | 2024-06-22 17:59 | XMS_ITS | Encounter Summary ---
Author Organization [employer] Address [address] [place] [address] 7t [place] [address] Care Team Providers Care Bobbin Disker Name Role Phone Agustin Marrero MD Primary [...] Description 06/24/2024 9:00 AM EST Clinical Support [facility] [address] [place] [address] Shwetha Collado, KATALINA [address] [place] [address] 07/05/2024 10:00 AM EDT Office Visit [facility] [address] [place] [address] Agustin Marrero MD 230 [place] [address] 11/16/2024 10:00 AM EDT Office Visit [facility] ADULT DENTAL [address] [place] [address] Catherine Antonio [address] [place] [address] documented as of this encounter Visit Diagnoses Not on filedocumented in this encounter Additional Health Concerns Assessment Noted Time PHQ-9 Depression Total Score: 0 12/03/19 10:31 AM EDT documented as of this encounter Care Teams Bobbin Disker Relationship Specialty Start Date End Date Agustin Marrero MD [address] [place] [address] PCP - General Internal Medicine 01/25/14 [facility] 06/13/16 documented as of this encounter
--- OUTSIDE RECORDS SUMMARY | 2024-06-22 17:59 | XMS_ITS | Encounter Summary ---
Author Organization [employer] Address [address] [place] [address] 7t [place] [address] Care Team Providers Care Campus Monitor Name Role Phone Agustin Marrero MD Primary Care Provide r Reason for Visit * Reason Comments Med Refill Encounter Details Date Type Department Care Team ([facility] st Contact Info) Description 06/20/2024 Refill [facility] MEDICINE [address] [place], [place] [phone] Agustin Marrero MD [address] [place] [address] Social History Tobacco Use Types Packs/Day Years [...] 06/24/2024 9:00 AM EST Clinical Support [facility] MEDICINE [address] [place] [address] Shwetha Collado RN [address] [place] [address] 07/05/2024 10:00 AM EDT Office Visit [facility] MEDICINE [address] [place] [address] Agustin Marrero MD 230 [place] [address] 11/16/2024 10:00 AM EDT Office Visit [facility] ADULT DENTAL [address] [place] [address] Catherine Antonio [address] [place] [address] documented as of this encounter Visit Diagnoses Not on filedocumented in this encounter Additional Health Concerns Assessment Noted Time PHQ-9 Depression Total Score: 0 12/03/19 24 10:31 AM EDT documented as of this encounter Care Teams Campus Monitor Relationship Specialty Start Date End Date Agustin Marrero MD [address] [place] [address] PCP - General Internal Medicine 01/25/14 [facility] 06/13/16 documented as of this encounter
--- OUTSIDE RECORDS SUMMARY | 2024-06-22 17:59 | XMS_ITS | Encounter Summary ---
Author Organization [facility] Address [address] [place] [address] Care Team Providers Care Supervising Editor News Reel Name Role Phone Agustin Mix Primary Care Provider + Encounter Details Date Type Department Care Team (Late st Contact Info) Description 06/28/2020 Telephone [facility] Central Scheduling Department [address] [place] [address] Telephone Intake, Staff Social History Tobacco Use [...] and can be reached at phone number [phone]. Thank you documented in this encounter Plan of Treatment Upcoming Encounters Date Type Department Care Team (Late st Contact Info) Description 08/01/2024 11:30 AM EDT Follow-Up [facility] Liver Transplant Services [address] [place] [address] [phone] Dylan Phelps MD [address] [place], [place] [phone] documented as of this encounter Visit Diagnoses Not on filedocumented in this encounter Care Teams Supervising Editor News Reel Relationship Specialty Start Date End Date Agustin Mix [address] [place] [address] PCP - General Internal Medicine 04/15/17 documented as of this encounter
--- OUTSIDE RECORDS SUMMARY | 2024-06-22 17:59 | XMS_ITS | Encounter Summary ---
Author Organization [employer] Address [address] [facility] 7t [place] [address] Care Team Providers Care Rivet Tosser Name Role Phone Agustin Marrero MD Primary Care Provide r Encounter Details Date Type Department Care Team (Late st Contact Info) Description 12/24/2023 Telephone [facility] [address] [place], [place] [phone] Agustin Marrero MD [address] [place], [place] [phone] Social History Tobacco Use Types Packs/Day Years [...] Description 06/24/2024 9:00 AM EST Clinical Support [facility] [address] [place] [address] Shwetha Collado, KATALINA [address] [place] [address] 07/05/2024 10:00 AM EDT Office Visit [facility] [address] [place] [address] Agustin Marrero MD [address] [place] [address] 11/16/2024 10:00 AM EDT Office Visit [facility] ADULT DENTAL [address] [place] [address] Catherine Antonio [address] [place] [address] documented as of this encounter Visit Diagnoses Not on filedocumented in this encounter Additional Health Concerns Assessment Noted Time PHQ-9 Depression Total Score: 0 12/03/19 24 10:31 AM EDT documented as of this encounter Care Teams Rivet Tosser Relationship Specialty Start Date End Date Agustin Marrero MD [address] [place] [address] PCP - General Internal Medicine 01/25/14 [facility] 06/13/16 documented as of this encounter
--- OUTSIDE RECORDS SUMMARY | 2024-06-22 17:59 | XMS_ITS | Encounter Summary ---
Author Organization [employer] Address [address] [place] [address] 7t [place] [address] Care Team Providers Care Senior Recruitment Consultant Name Role Phone Agustin Marrero MD Primary Care Provide r Reason for Visit * Reason Comments Med Refill Encounter Details Date Type Department Care Team ([facility] st Contact Info) Description 12/24/2023 Refill [facility] MEDICINE [address] [place], [place] [phone] Agustin Marrero MD [address] [place] [address] Chronic midline low back pain without sciatica [...] Description 06/24/2024 9:00 AM EST Clinical Support [facility] MEDICINE [address] [place] [address] Shwetha Collado, KATALINA [address] [place] [address] 07/05/2024 10:00 AM EDT Office Visit [facility] MEDICINE [address] [place] [address] Agustin Marrero MD [address] [place] [address] 11/16/2024 10:00 AM EDT Office Visit [facility] ADULT DENTAL [address] [place] [phone] Catherine Antonio [address] [place] [address] documented as of this encounter Visit Diagnoses Diagnosis Chronic midline low back pain without sciatica documented in this encounter Additional Health Concerns Assessment Noted Time PHQ-9 Depression Total Score: 0 12/03/19 24 10:31 AM EDT documented as of this encounter Care Teams Senior Recruitment Consultant Relationship Specialty Start Date End Date Agustin Marrero MD [address] [place] [address] [place] [address] PCP - General Internal Medicine 01/25/14 [facility] 06/13/16 documented as of this encounter
--- OUTSIDE RECORDS SUMMARY | 2024-06-22 17:59 | XMS_ITS | Encounter Summary ---
Author Organization [employer] Address [address] [place] [address] 7t [place] [address] Care Team Providers Care Grain Elevator Worker Name Role Phone Agustin Marrero MD Primary Care Provide r Reason for Visit * Reason Comments Med Refill Encounter Details Date Type Department Care Team ([facility] st Contact Info) Description 11/02/2023 Refill [facility] MEDICINE [address] [place], [place] [phone] Lela Wu MD [address] [place], [place] [phone] Primary insomnia Social History Tobacco Use Types [...] Description 06/24/2024 9:00 AM EST Clinical Support [facility] [address] [place] [address] Shwetha Collado RN 505 [place] [address] 07/05/2024 10:00 AM EDT Office Visit [facility] [address] [place] [address] Agustin Marrero MD [address] [place] [address] 11/16/2024 10:00 AM EDT Office Visit [facility] ADULT DENTAL [address] [place] [address] Catherine Antonio [address] [place] [address] documented as of this encounter Visit Diagnoses Diagnosis Primary insomnia Persistent disorder of initiating or maintaining sleep documented in this encounter Additional Health Concerns Assessment Noted Time PHQ-9 Depression Total Score: 5 06/16/19 24 9:35 AM EST documented as of this encounter Care Teams Grain Elevator Worker Relationship Specialty Start Date End Date Agustin Marrero MD [address] [place] [address] PCP - General Internal Medicine 01/25/14 [facility] 06/13/16 documented as of this encounter
--- OUTSIDE RECORDS SUMMARY | 2024-06-22 17:59 | XMS_ITS | Encounter Summary ---
Author Organization [employer] Address [address] [place] [address] 7t [place] [address] Care Team Providers Care Ranch Supervisor Name Role Phone Agustin Marrero MD Primary Care Provide r Reason for Visit * Reason Comments Med Refill Encounter Details Date Type Department Care Team ([facility] st Contact Info) Description 10/28/2023 Refill [facility] MEDICINE [address] [place], [place] [phone] Lela Wu MD 230 [place], [place] [phone] Primary insomnia Social History Tobacco Use Types [...] 9:00 AM EST Clinical Support [facility] [address] [place] [address] Shwetha Collado RN 505 [place] [address] 07/05/2024 10:00 AM EDT Office Visit [facility] [address] [place] [address] Agustin Marrero MD [address] [place] [address] 11/16/2024 10:00 AM EDT Office Visit [facility] ADULT DENTAL [address] [place] [address] Catherine Antonio [address] [place] [address] documented as of this encounter Visit Diagnoses Diagnosis Primary insomnia Persistent disorder of initiating or maintaining sleep documented in this encounter Additional Health Concerns Assessment Noted Time PHQ-9 Depression Total Score: 5 06/16/19 24 9:35 AM EST documented as of this encounter Care Teams Ranch Supervisor Relationship Specialty Start Date End Date Agustin Marrero MD [address] [place] [address] PCP - General Internal Medicine 01/25/14 [facility] 06/13/16 documented as of this encounter
--- OUTSIDE RECORDS SUMMARY | 2024-06-22 18:00 | XMS_ITS | Encounter Summary ---
Author Organization [facility] Address [address] [place] [address] 7t [place] [address] Care Team Providers Care Billing Representative Name Role Phone Agustin Marrero MD Primary Care Provide r Reason for Visit * Reason Comments Med Refill Encounter Details Date Type Department Care Team (Late st Contact Info) Description 09/04/2022 Refill [facility] [address] [place] [address] Agustin Marrero MD 230 [place] [address] Social History Tobacco Use Types Packs/Day Years [...] Description 06/24/2024 9:00 AM EST Clinical Support [facility] [address] [place] [address] Shwetha Collado, RN [address] [place] [address] 07/05/2024 10:00 AM EDT Office Visit [facility] [address] [place] [address] Agustin Marrero MD 230 [place] [address] 11/16/2024 10:00 AM EDT Office Visit [facility] ADULT DENTAL [address] [place] [address] Catherine Antonio [address] [place] [address] documented as of this encounter Visit Diagnoses Not on filedocumented in this encounter Care Teams Billing Representative Relationship Specialty Start Date End Date Agustin Marrero MD [address] [place] [address] PCP - General Internal Medicine 01/25/14 [facility] 06/13/16 documented as of this encounter
--- OUTSIDE RECORDS SUMMARY | 2024-06-22 18:00 | XMS_ITS | Encounter Summary ---
Author Organization [employer] Address [address] [place] [address] 7t [place] [address] Care Team Providers Care Music Therapist Name Role Phone Agustin Marrero MD Primary Care Provide r Encounter Details Date Type Department Care Team (Latest Contact Info) Description 05/31/2024 9:00 AM EST Clinical Support [facility] MEDICINE [address] [place] [address] Patricia Harrell RN Chronic midline low back [...] as expected. Patient to be scheduled for ANIMAL HUSBANDRY WORKER visit moving forward. documented in this encounter Plan of Treatment Upcoming Encounters Date Type Department Care Team (Late st Contact Info) Description 06/24/2024 9:00 AM EST Clinical Support [address] [address] Shwetha Collado RN [address] [place] [address] 07/05/2024 10:00 AM EDT Office Visit [facility] MEDICINE [address] [place] [address] Agustin Marrero MD [address] [place] [address] 11/16/2024 10:00 AM EDT Office Visit [facility] ADULT DENTAL [address] [place] [address] Catherine Antonio [address] [place] [address] documented as of this encounter Procedures Procedure [...] - 05/31/2024 1:31 PM EST UTOX cup Lot#[id number] Exp. 01/12/26 Internal Pass Control Negative for all substances Agustin Connelly MD POINT OF CARE TEST EN TER/EDIT ORDERABLES Final Result documented in this encounter Visit Diagnoses Diagnosis Chronic midline low back pain without sciatica- Primary documented in this encounter Additional Health Concerns Assessment Noted Time PHQ-9 Depression Total Score: 0 12/03/19 10:31 AM EDT documented as of this encounter Care Teams Music Therapist Relationship Specialty Start Date End Date Agustin Marrero MD [address] [place] [address] PCP - General Internal Medicine 01/25/14 [facility] 06/13/16 documented as of this encounter
--- OUTSIDE RECORDS SUMMARY | 2024-06-22 18:00 | XMS_ITS | Encounter Summary ---
Author Organization [employer] [facility] Address [address] [place] [address] 7t [place] [address] Care Team Providers Care Tamale Maker Name Role Phone Agustin Marrero MD Primary Care Provide r Encounter Details Date Type Department Care Team (Latest Contact Info) Description 05/23/2019 Abstract [facility] CONVERSIONS Dental, Provider, DDS Social [...] Description 06/24/2024 9:00 AM EST Clinical Support [facility] MEDICINE [address] [place] [address] Shwetha Collado RN [address] [place] [address] 07/05/2024 10:00 AM EDT Office Visit [facility] MEDICINE [address] [place] [address] Agustin Marrero MD [address] [place] [address] 11/16/2024 10:00 AM EDT Office Visit [facility] ADULT DENTAL [address] [place] [address] Catherine Antonio [address] [place] [address] documented as of this encounter Visit Diagnoses Not on filedocumented in this encounter Care Teams Tamale Maker Relationship Specialty Start Date End Date Agustin Marrero MD [address] [place] [address] [place] [address] PCP - General Internal Medicine 01/25/14 [facility] 06/13/16 documented as of this encounter
--- OUTSIDE RECORDS SUMMARY | 2024-06-22 18:00 | XMS_ITS | Referral Summary ---
Author Organization [facility] Address [address] [place] [address] Care Team Providers Care Hay Buckler Name Role Phone Agustin Mix Primary Care Provider + Encounters Date Type Department Care Team Description 06/21/2024 Abstract [facility] Transplant Department [address] [place] [address] Dylan Phelps MD 06/20/2024 Results Follow-Up [facility] Services [address] [place] [address] Sonya Melendez, KATALINA 06/20/2024 Abstract [facility] Transplant Department [address] [place] [address] Dylan Phelps MD 06/16/2024 Telephone [facility] Transplant Department [address] [place] [address] Isidra Sanchez, KATALINA 05/25/2024 Abstract [facility] Transplant Department [address] [place] [address] Dylan Phelps MD 05/24/2024 Abstract [facility] Transplant Department [address] [place] [address] Dylan Phelps MD 05/11/2024 Telephone [facility] Transplant Department [address] [place] [address] Erika Bonds RN 04/29/2024 Abstract [facility] Transplant Department [address] [place] [address] Dylan Phelps MD 04/28/2024 Abstract [facility] Transplant Department [address] [place] [address] Dylan Phelps MD 04/26/2024 Abstract [facility] Transplant Department [address] [place] [address] Dylan Phelps MD 04/06/2024 Abstract [facility] Transplant Department [address] [place] [phone] Dylan Phelps MD from Last 3 Months [...] daily 01/25/20 22 Active FreeStyle Arvin 2 [place] misc 01/17/20 22 Active BD Insulin Syringe [...] -follow up PEt -follow up blood cultures History of liver [...] in March 2020. He was seen by apprentice painter hand at [facility] who discussed that he might need someone [...] for liver biopsy, since LFT pattern not sales representative marine supplies of rejection. Additionally, Liver ultrasound showed Patent [...] of recurrent ESBL bacteremia. Initially presented to [facility] for fever, LE swelling and pain. Unclear source. BCX grew esbl E.Coli 1 out of 2 sets from [facility], susceptible to Ertapenem. Initially he was on [...] of recurrent ESBL bacteremia. Initially presented to [facility] for fever, LE swelling and pain. Unclear source. BCX grew esbl E.Coli 1 out of 2 sets from [facility], susceptible to Ertapenem. Initially he was on [...] CBC and CMP - f/u plan from [place] for length of treatment Assessment & Plan (02/05/2019 6:23 AM EDT): Patient has a recurrent history of recurrent ESBL bacteremia. Patient initially presented to [facility] for fever and LE swelling and pain. Unclear source. BCX grew esbl E.Coli 1 out of 2 sets from [facility], susceptible to Ertapenem. Initially he was on zosyn, and was switched to ertapenem. On previous admission, MRCP on 12/20 or Abdominal US on 01/16 showed no biliary dilatation. - continue ertapenem (10 day course to be completed on 02/09 per [facility] note) - repeat BCX - CT AP w/ contrast - consult transplant ID in the AM - f/u CBC and CMP Assessment & Plan (02/05/2019 5:40 AM EDT): Patient has a recurrent history of recurrent ESBL bacteremia. Patient initially presented to [facility] for fever and LE swelling and pain. Unclear source. BCX grew esbl E.Coli 1 out of 2 sets from [facility], susceptible to Ertapenem. Initially he was on zosyn, and was switched to ertapenem. On previous admission, MRCP on 12/20 or Abdominal US on 01/16 showed no biliary dilatation. - continue ertapenem (10 day course to be completed on 02/09 per [facility] note) - repeat BCX - CT AP w/ contrast Abscess of leg, right 02/05/20192018 Assessment & Plan (02/22/2019 3:37 PM EST): Patient has worsened leg edema R>L w/ rt side 4+ pitting edema. At [facility], US was negative for DVT. CT [...] w/ rt side 4+ pitting edema. At [facility], US was negative for DVT. CT [...] Right side has 4+ pitting edema. At [facility], US was obtained and ruled out [...] was found. OSH GI recommended transfer to [facility] as there was a suspicion for acute [...] concerning for pathology. -Transplant ID is following -[facility] will fax culture data, commented that [...] 8:59 AM EST): Hyponatremic to 132 at [facility]. Na 128, constant through hospitalization. - daily BMP Assessment & Plan (02/09/2019 11:02 AM EDT): Hyponatremic to 132 at [facility]. Na 128, constant through hospitalization. - daily BMP Assessment & Plan (02/05/2019 5:51 AM EDT): Hyponatremic to 132 at [facility]. - repeat BMP in am and redose diuretics Assessment & Plan (02/05/2019 5:47 AM EDT): Hyponatremic to 132 at [facility]. - repeat BMP in am and [...] Presented again on day of admission to [facility] with worsening shortness of breath where a CT chest PE protocol was performed which showed no evidence of intraluminal filling defect though did make note of large left- sided pleural effusion with associated complete left lower lobe collapse as well as partial left upper lobe collapse. Due to recurrent pleural effusion and likely need for repeat thoracentesis patient was transferred [facility]. On arrival patient without any increased work of breathing and saturating well on room air. Exam reveals absent breath sounds in the left middle and lower lung perez with increased dullness to percussion. 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 -We will have CT scan from [facility] uploaded into our system for review -CXR on 07/11 showed large left pleural effusion -IP consulted for thoracentesis. Will send fluid studies. -Requested [facility] records of pleural fluid studies from 07/06 -Supplemental oxygen as needed to maintain sats greater than 92% Assessment & Plan (01/19/2019 10:11 AM EDT): Patient is s/p thoracentesis after large left lung effusion unchanged from previous admission seen on imaging. Site of thoracentesis covered with bandage that is dry and intact. Chart review of his prior hospitalization at [facility] revealed that he had thoracentesis on January 11, 2019, during which 1.6 L was taken out, and fluid study revealed white blood cell count of 2650 and segs of 35%, suggesting exudative fluid, although it seems that no paracentesis was done at [facility]. - decreased breath sounds in middle and [...] resulting transudative fluid, rapidly reaccumulating, transferred to [facility] for TIPS intervention. Resumed diuretics today at [...] procedure in 2017. Most recent hospitalization at [facility] was in January 2019 when he [...] appears that no paracentesis was done at [facility]. - Start Lactulose increased to 20 g [...] from TIPS procedure and was sent to [facility] for further evaluation. Plan -Continue with home [...] 20mg daily and spironolactone 50mg daily. At [facility], patient received IV lasix 40mg daily. [...] 20mg daily and spironolactone 50mg daily. At [facility], patient received IV lasix 40mg daily. [...] Info) Description 08/01/2024 11:30 AM EDT Follow-Up [facility] Transplant Services [address], [place] [id number] Dylan Phelps MD [address] [place] [address] Medical Devices Implanted Type Area Popcorn Machine Operator Device Identifier Shelf Expiration Date Model / Serial / Lot Shunt Transjugular Intrahepatic Portosystemic Tips Endoprosthesis [id number] Viatorr - [id number] Implanted:Qty: 1 on 07/28/2017 at [facility] Implant W L GORE 12/26/2019 [id number] / / Mesh Hernia With Strap Large Ventralex - [id number] Implanted:Qty: 1 on 03/20/2020 by Fernando Fine MD PhD at [facility] Mesh Right: Abdomen CR [employer] 01/15/2021 [id number] / / [id number] Stent Biliary Rx Fully Covered Self Expanding Metallic Rmv With Permalume Covering 8.5fr [id number] Wallflex - [id number] - [id number] Implanted:Qty: 1 on 11/21/2022 by Dunia Osorio MD at [facility] Stent N/A: Bile Duct [employer] 08/21/2024 [id number] / [id number] / Explanted Type Area Popcorn Machine Operator Device Identifier Shelf Expiration Date Model / Serial / Lot Ercp Stent-11/21/2022 Implanted:07/2022 (Quantity not on file) Explanted:06/2022 (Quantity not on file) ERCP Stent Bile Duct 1 / / Txp Internal Biliary Stent- 0 Implanted:04/2 04/2019 (Quantity not on file) Explanted:06/0 07/2020 (Quantity not on file) TXP Internal Biliary Stent Bile Duct Procedures * Due to [place] state law, this organization might not be sharing negative HIV tests. Procedure Name Priority Date/Time Associated Diagnosis Comments AFP TUMOR MARKER, OUTSIDE LAB Routine 06/17/2024 6:49 AM EST LIVER POST EXTERNAL PANEL Routine 06/17/2024 6:49 AM EST AFP TUMOR MARKER, OUTSIDE LAB Routine 05/20/2024 [...] to Health Maintenance Results * Due to [place] state law, this organization might not be sharing negative HIV tests. * LIVER POST EXTERNAL PANEL (06/17/2024 6:49 AM EST) Only the most recent of4 resultswithin the time period is included. Tacrolimus, Highly Sensitive 2.9 [facility] Sodium 138 mmol/L [facility] Potassium 4.4 [facility] Chloride 109 [facility] Carbon Dioxide 22 [facility] Glucose 157 [facility] BUN 19 mg/dL [facility] Creatinine 1.08 mg/dL [facility] Calcium 9.3 mg/dL [facility] Total Protein 7.3 g/dL [facility] Albumin 4.3 g/dL [facility] Bilirubin, Total 0.7 mg/dL [facility] Alkaline Phosphatase 108 U/L [facility] AST 26 U/L [facility] ALT 38 U/L [facility] Magnesium 1.50 mg/dL [facility] WBC 4.9 10*3/uL [facility] Hgb 14.0 [facility] Hematocrit 39.7 % [facility] Platelets 143 10*3/uL [facility] 06/17/2024 6:49 AM EST us Dylan Phelps MD LAB BLOOD ORDERABLES Final Re sult [facility] [address] [place] [address] * AFP Tumor Marker, Outside Lab (06/17/2024 6:49 AM EST) Only the most recent of3 resultswithin the time period is included. Alpha Fetoprotein, Tumor Marker 1.3 [facility] Blood Structure of peripheral vein / Unknown 06/17/2024 6:49 AM EST Dylan Phelps MD LAB BLOOD ORDERABLES Final Re sult Performing Organization Address [facility] Co de Phone Number [facility] [address] [place] [phone] * Tacrolimus Level, Outside Lab (04/25/2024 7:13 AM EST) Tacrolimus, Highly Sensitive 5.5 [facility] Blood Structure of peripheral vein / Unknown 04/25/2024 7:13 AM EST Dylan Phelps MD LAB BLOOD ORDERABLES Final Re sult Performing Organization Address [facility] de Phone Number [facility] [address] [place] [address] * CT Chest W Contrast (11/05/2023 4:35 [...] obtain the completed interpretation. ? Workstation ID: [id number] Up-to-date CT equipment and radiation dose reduction techniques were employed. CTDIvol: 3.1 - 23.9 mGy. DLP: 2643 mGy-cm. ??The following accession numbers are related to this dose report [id number]: [id number] Narrative 11/19/2023 3:36 PM EDT Indication: ??58 [...] the spine. ??Bilateral gynecomastia. Resulting Agency Comment [id number] Procedure Note Natasha Michaud MD - 11/19/2023 [...] possible to obtain thecompleted interpretation. Workstation ID: [id number] Up-to-date CT equipment and radiation dose reduction techniques wereemployed. CTDIvol: 3.1 - 23.9 mGy. DLP: 2643 mGy-cm. The followingaccession numbers are related to this dose report [id number]: [id number] us Dylan Phelps MD [facility] CT PROCEDURES Final Resul t * (ABNORMAL) Basic Metabolic Panel (11/15/2022 3:07 AM EDT) NA 135 135 - 145 mmol/L 11/15/2022 4:09 AM EDT [facility] K 4.6 3.5 - 5.3 mmol/L 11/15/2022 4:09 AM EDT [facility] Cl 103 97 - 110 mmol/L 11/15/2022 4:09 AM EDT [facility] CO2 24 24 - 32 mmol/L 11/15/2022 4:09 AM EDT [facility] BUN 27(H) 7 - 23 mg/dL 11/15/2022 4:09 AM EDT [facility] Creatinine 1.05 0.60 - 1.30 mg/dL 11/15/2022 4:09 AM EDT [facility] Glucose 268(H) 70 - 99 mg/dL 11/15/2022 4:09 AM T [facility] Calcium 8.8 8.7 - 10.7 mg/dL 11/15/2022 4:[address] [facility] Anion Gap 8 5 - 15 11/15/2022 4:09 AM EDT [facility] eGFR 82 >=60 mL/min/1. 73m2 11/15/2022 4:09 AM T [facility] Comment:The estimated glomer ular [...] 3:07 AM EDT 11/15/2022 3:29 AM EDT Dylan Phelps MD LAB BLOOD ORDERABLES Final Re sult Performing Organization Address [facility] Co de Phone Number [facility] [address] [place] [address], * Microalbumin, Random Urine with Creatinine (05/17/2021 11:35 AM EST) Microalbumin, Urine 1.1 mg/dL 05/17/2021 12:34 PM EST [facility] Creatinine, Urine 97 22 - 328 mg/dL 05/17/2021 12:34 PM EST [facility] Microalb/Creat Ratio, Random Urine 11.3 <30.0 mcg/mgCr 05/17/2021 12:34 PM EST [facility] Comment: Microalbumin Reference Range: Normal ? <30 mcg/mg Creatinine Microalbuminuria ? 30-300 mcg/mg Creatinine Clinical Albuminuria >300 mcg/mg Creatinine Reference: ADA Guideline. Diabetes Care. 2004;27 (suppl 1) Urine Voided urine specimen / Unknown Non-Blood Collection / Unknown 05/17/2021 11:35 AM EST 05/17/2021 12:01 PM EST us Angelita Villa MD LAB URINE ORDERABLES Final Resul t Performing Organization Address [facility] Co de Phone Number [facility] [address] [place] [id number], * (ABNORMAL) Hemoglobin A1c (05/17/2021 11:31 AM EST) Hemoglobin A1C 7.7(H) <5.7 % of total Hgb 05/18/2021 2:37 AM EST [facility] Comment: For someone without known diabetes, a [...] (MG/DL) 174 mg/dL 05/18/2021 2:37 AM EST [facility] eAG (MMOL/L) 9.7 mmol/L 05/18/2021 2:37 AM EST [facility] Blood Structure of peripheral vein / Unknown Venipuncture / Unknown 05/17/2021 11:31 AM EST 05/17/2021 11:40 AM EST Narrative [facility] - 05/18/2021 2:37 AM EST [facility] Received Date: us Angelita Villa MD LAB BLOOD ORDERABLES Final Resul t [facility] [address], [place] [address], [place] [place] [facility] [address], [place] [address], * CT Abdomen Pelvis with Contrast (05/05/2020 5:27 PM EST) Anatomical Region Laterality Modality Body Computed Tomogra phy 05/06/2020 8:40 AM EST Impressions 05/06/2020 8:50 AM EST Small fluid pocket between the incision and transverse colon which may represent developing adhesions. Recommend correlation for any signs of infection in the incision on exam. Otherwise, no CT findings that might explain patient's fever. [id number] Narrative 05/06/2020 8:50 AM EST EXAMINATION: CT [...] no CT findings that mightexplain patient's fever. [id number] Reyes Voss MD [facility] CT PROCEDURES Final Result * Hepatitis C RNA, Quantitative, PCR (09/09/2019 11:52 AM EDT) Hcv RNA, Quantitative Real Time PCR <15 NOT DETECTED NOT DETECTED IU/mL 09/14/2019 5:38 PM EDT [facility] [place] [facility] Hepatitis C Quantitative PCR Log IU/mL <1.18 NOT DETECTED NOT DETECTED Log IU/mL 09/14/2019 5:38 PM EDT [facility] [place] [facility] Comment: This test was performed using Real-Time Polymerase Chain Reaction. Reportable Range: 15 IU/mL to 100,000,000 IU/mL (1.18 Log IU/mL to 8.00 Log IU/mL). ?? The analytical performance characteristics of this assay have been determined by [employer]. The modifications have not been cleared or approved by the FDA. This assay has been validated pursuant to the CLIA regulations and is used for clinical purposes. ?? For more information on this test, go to: http://education.Edúkame/faq/PLI06k7 (This link is being provided for informational/ educational purposes only.) Blood Structure of peripheral vein / Unknown Venipuncture / Unknown 09/09/2019 11:52 AM EDT 09/09/2019 12:07 PM EDT [facility] - 09/14/2019 5:38 PM EDT [facility] Received Date: Cyndi Pereira MD LAB BLOOD ORDERAB LES Final Result [facility] [address], [place] [address], [facility] [address], [place] [address], [place] [phone] from Last 3 Months or Most Recently Relevant to Health Maintenance [place] [address] [id number] [facility] [place] [id number] [facility] Advance Directives Documents on File Type Date Recorded Patient Systems Software Manager Expl anation Health Care Proxy 02/05/2019 [...] Name Relationship Healthcare Agent Relationship Communication Rivera Hebert Health Care Agent Care Teams Hay Buckler Relationship Specialty Start Date End Date Agustin Mix [address] [place] [phone] PCP - General Internal Medicine 04/15/17
--- OUTSIDE RECORDS SUMMARY | 2024-06-22 18:00 | XMS_ITS | Data Portability ---
Author Organization [facility], Main Office Address [address] [facility], [address] [place] [address] Care Team Providers Care Corporate Pilot Name Role Phone MARICRUZ NEWMAN - 2ND FLOOR OTHER Assessment Encounter Date Assessment Date Assessment LastModified by Organization Details LastModified Time 02/25/2019 02/25/2019 02/24/19 WBC 3.7, Hgb 7.5, Hct 22.4, Plt 59, Na 134, K 4.5, BUN 10, Compliance Paralegal 0.54, calc 7.8, tot prot 5.1, AST 69, ALT 33, A1c 4.2 02/23/19 WBC 3.4, Hgb 7.5, Hct 22.4, Plt 59, Na 128, K 4.3, BUN 11, Compliance Paralegal 0.56, silvia 7.6, tot prot 4.8, tot bili 4.1, AST 65, ALT 25 in hospital [facility] Not available 02/25/2019 10:15:55 Plan of Treatment [...] Gastroesop hageal reflux disease without esophagiti s 781049721 Active 2018 FIDEL MAURO [address] [facility], [address], [place], [address], [facility] 9 08:26:33 Cirrhosis of liver 65050428 Active 2018 on transplant list FIDEL MAURO [address] [facility] [facility], [address], [place], [address], [facility] 9 08:36:16 Diabetes mellitus 02513230 Active 2018 CACHORRO FIDEL CARLSON [address] [facility], [address], [place], [address], [facility] 9 08:28:07 Hyponatrem ia 94431598 Active 2018 CACHORROFIDEL LEON [address] [facility], [address], [place], [address], [facility] 9 08:28:22 Bacteremia 7176562 Active 2018 CACHORROFIDEL LEON [address] [facility], [address], [place], [address], [facility] 9 08:29:07 Bacterial peritoniti s 622790669 Active 2018 FIDEL MAURO [address] [facility], [address], [place], [address], [facility] 9 09:07:42 Edema of lower extremity 204974700 Active 2018 FIDEL MAURO [address] [facility], [address], [place], [address], [facility] 9 09:15:49 Abscess of lower leg 962284749 Active 2018 Brittaney Mcelroy MD [address] [place] [address], [address], [place], [address], [facility] 9 07:15:49 Anemia 708412815 Active 2018 Brittaney Mcelroy MD [address] [place] [address], [address], [place], [address], [facility] 9 07:16:47 Problem Notes None recorded. Medical Equipment None Reported. Allergies No known drug allergies Medications Not known to be on any medication Vitals Date Recorded Body weight Heart rate Respiratory rate Body temperature Oxygen saturation Oxygen saturation in Arterial blood by Pulse oximetry Systolic blood pressure Diastolic blood pressure Provider Name and Address Organization Details Last Updated DateTime 9 27285.5 1 g 70 /min 20 /min 96.9 [degF] 98 % 98 % 128 mm[Hg] 74 mm[Hg] FIDEL MAURO [address] [facility], [address], [place], [address], [facility] 9 11:06:12 Date Recorded Systolic blood pressure Diastolic blood pressure Provider Name and Address Organization Details Last Updated DateTime 03/02/2019 120 mm[Hg] 68 mm[Hg] Brittaney Mcelroy MD [address] [facility], [address], [place], [address], [facility] 03/02/2019 06:55:54 Social History Question Answer Notes LastModified by Organizat ion Details LastModified Time Tobacco Smoking Status Former Smoker Not Available [facility] 02/14/2020 03:13:21 Do You Have An Advance Directive? Yes FULL CODE-undecid ed About Dialysis And Nutrition-ma y Use Hydration [id number] Information not available 02/14/2020 What Is Your Level Of Alcohol Consumption? None Quit Drinking In 2016 [id number] Information not available 02/14/2020 How Many Years Have You Consumed Alcohol? 30 [id number] Information not available 02/14/2020 How Much Tobacco Do You Chew? None [id number] Information not available 02/14/2020 Do You Or Have You Ever Used E-cigarettes Or Vape? Never Used Electronic Cigarettes [id number] Information not available 02/14/2020 Do You Have A Medical Power Of Social Media Editor? Yes Hcp On File [id number] Information not available 02/14/2020 What Was The Date Of Your Most Recent Tobacco Screening? 02/25/2019 [id number] Information not available 02/14/2020 Do You Or Have You Ever Used Smokeless Tobacco? Never Used Smokeless Tobacco [id number] Information not available 02/14/2020 How Much Tobacco Do You Smoke? 1 PPD [id number] Information not available 02/14/2020 On What Date Was Tobacco Cessation Counseling Provided? 02/25/2019 NA [id number] Information not available 02/14/2020 How Many Years Have You Smoked Tobacco? 30 [id number] Information not available 02/14/2020 Sex: Unknown Functional Status None recorded. Mental Status None recorded. Family History Nothing Reported. Medical History No medical history recorded. Past Encounters Encounter ID Performer Location Encounter Start Date Encounter Closed Date Diagnosis/Indication Diagnosis SNOMED-CT Code Diagnosis ICD10 Code Diagnosis Note [id number] FIDEL MAURO [address] [address] 02/25/2019 08:25:36 03/04/2019 13:41:33 Bacteremia 1142416 R78.81 completed treatmentm onitor dsg changes qdwet to dryareas clean Hyponatremia 69344318 E8 7.1 resolvedmo nitor labs Cirrhosis of liver K70.31 lactulose 30 mls tid 3-4 stools a dayspirono lactone 50 mg qdmonitoro n transplant listfollow s with [facility] Diabetes mellitus 806229 09 E11.9 lantus 8 units q [id number] here is 4.2monitor for s/s of hypo/hyper glycemia Gastroesop hageal reflux disease without esophagitis 396695288 K21.9 omeprazole 20 mg qdmonitor for symptoms Bacterial peritonitis 19 8797084 K65.2 recurrentc ipro 500 mg qd prophymoni tor for symptoms Edema of l ower extremity 501595703 R60.0 lasix 20 mg qdmonitor edema [id number] Brittaney Mcelroy MD [address] [address] 03/02/2019 06:54:11 03/04/2019 13:42:54 Cirrhosis of liver 84139110 K70.31 fu GIlactulos e 20 gm tidfurosem concetta 20 mg dailymagne sium 400 mg dailyspiro nolactone 25 mg dailyon transplant list [facility] Diabetes mellitus 248842 09 E11.9 Humalog per sliding scaleLantu s 8U dailywill monitor Gastroesop hageal reflux disease without esophagitis 993878109 K21.9 omeprazole 20 mg dailywill monitor Anemia 730716482 D50.8 suspect multifacto rial including GI blood loss, chronic diseaseawa it B12, folateiron 325 mg bidwill continue to monitor Bacteremia 0801592 R78.8 1 antibiotic s completedd aily dressing changes legfu surgery Bacterial peritonitis 19 9963763 K65.2 history of in pastCipro 500 mg daily for prophylaxi sfu GI [facility] Health Concerns Section Related Observation LastModified by Organization Detai ls LastModified Time None Recorded Concern Status LastModified by Organization Details LastModified Time None Recorded Advance Directives Directive Y: FULL CODE-undecided about dialysis and nutrition-may use hydration Payers Encounter Date Sequence Insurance Name Policy Number Policy Banks Covered Member ID Banks Member ID Guarantor Name 02/25/2019 2 [place] [facility] [id number] [facility] 02/25/2019 1 [facility] - DOS PRIOR TO 2022 - DUAL ELIGIBLE (MEDICARE REPLACEMENT/AD VANTAGE - HMO) [facility] [id number] [facility] 03/02/2019 2 [place] [facility] Edward Jon [id number] [facility] 03/02/2019 1 [facility] - DOS PRIOR TO 2022 - DUAL ELIGIBLE (MEDICARE REPLACEMENT/AD VANTAGE - HMO) [facility] [id number] [place] [facility] Notes Date Note Type Note Provider Name and Address Organization Details Recorded Time 02/25/2019 text/html A 54 year old ma le being seen for a initial intake note. Patient was at [facility] for fever and lower extremity edema/pain. He was transferred to [facility] for bacteremia. He grew ESBL E. [...] GERD, DM, hyponatremia and SBP. CACHORRO CARLSON, WHEEL TRUING MACHINE TENDER [address] [facility], [address], [place], [address], [facility] 02/25/2019 11:10:47 03/02/2019 text/html This 54 year old male was admitted to [facility] 02/23/19 for continued care and rehab after hospitalization for fever and lower extremity edema/pain. Patient has history of alcoholic liver disease and cirrhosis and is on transplant list. He was initially admitted to [facility], then transferred to [facility] for bacteremia. His blood cultures grew ESBL E. Coli and he started on antibiotics, initially Zosyn which was changed to meropenem, then ertapenem to complete a 10 day course. Patient has history recurrent bacteremia in past few months. During most recent prior [facility] admission, it was suspected that likely source of bacteremia was biliary. Patient had worsened R>L leg edema and US was negative at [facility] for DVT. CT of right lower [...] MOLST: full code Brittaney Mcelroy MD [address] [facility], [address], [place], [address], [facility] 03/02/2019 08:11:36
--- OUTSIDE RECORDS SUMMARY | 2024-06-22 18:00 | XMS_ITS | Encounter Summary ---
Author Organization [facility] Address [address] [place] [address] 7t [place] [address] Care Team Providers Care Assistant Professor Of Art Name Role Phone Agustin Marrero MD Primary Care Provide r Reason for Visit * Reason Onset Date Comments Med Refill 12/15/2022 Encounter Details Date Type Department Care Team ([facility] st Contact Info) Description 12/15/2022 Telephone [facility] [address] [place], [place] [phone] Agustin Marrero MD [address] [place] [address] Med Refill Social History Tobacco Use Types [...] Description 06/24/2024 9:00 AM EST Clinical Support [facility] [address] [place] [address] Shwetha Collado, RN [address] [place] [address] 07/05/2024 10:00 AM EDT Office Visit [facility] [address] [place] [address] Agustin Marrero MD [address] [place] [address] 11/16/2024 10:00 AM EDT Office Visit [facility] [address] [place] [address] Paco, Catherine [address] [place] [address] documented as of this encounter Visit Diagnoses Not on filedocumented in this encounter Care Teams Assistant Professor Of Art Relationship Specialty Start Date End Date Agustin Marrero MD [address] [place] [address] PCP - General Internal Medicine 01/25/14 [facility] 06/13/16 documented as of this encounter
--- OUTSIDE RECORDS SUMMARY | 2024-06-22 18:00 | XMS_ITS | Encounter Summary ---
Author Organization [employer] Address [address] [place] [address] 7t [place] [address] Care Team Providers Care Retail Sales Teammate Name Role Phone Agustin Marrero MD Primary [...] Description 06/24/2024 9:00 AM EST Clinical Support [facility] [address] [place] [address] Shwetha Collado, KATALINA [address] [place] [address] 07/05/2024 10:00 AM EDT Office Visit [facility] [address] [place] [address] Agustin Marrero MD [address] [place] [address] 11/16/2024 10:00 AM EDT Office Visit [facility] [address] [place] [address] Catherine Antonio [address] [place] [address] documented as of this encounter Visit Diagnoses Not on filedocumented in this encounter Additional Health Concerns Assessment Noted Time PHQ-9 Depression Total Score: 0 12/03/19 10:31 AM EDT documented as of this encounter Care Teams Retail Sales Teammate Relationship Specialty Start Date End Date Agustin Marrero MD [address] [place] [address] PCP - General Internal Medicine 01/25/14 [facility] 06/13/16 documented as of this encounter
--- OUTSIDE RECORDS SUMMARY | 2024-06-22 18:00 | XMS_ITS | Encounter Summary ---
Author Organization [employer] [facility] Address [address] [place] [address] 7t [place] [address] Care Team Providers Care Tiedown Operator Name Role Phone Agustin Marrero MD Primary Care Provide r Encounter Details Date Type Department Care Team (Latest Contact Info) Description 09/06/2018 Abstract [facility] CONVERSIONS Dental, Provider, DDS Social History [...] 06/24/2024 9:00 AM EST Clinical Support [facility] [address] [place] [address] Shwetha Collado RN [address] [place] [address] 07/05/2024 10:00 AM EDT Office Visit [facility] [address] [place] [address] Agustin Marrero MD [address] [place] [address] 11/16/2024 10:00 AM EDT Office Visit [facility] ADULT [facility]ENT[facility] [address] [place] [address] Catherine Antonio [address] [place] [address] documented as of this encounter Visit Diagnoses Not on filedocumented in this encounter Care Teams Tiedown Operator Relationship Specialty Start Date End Date Agustin Marrero MD [address] [place] [address] [place] [address] PCP - General Internal Medicine 01/25/14 [facility] 06/13/16 documented as of this encounter
--- OUTSIDE RECORDS SUMMARY | 2024-06-22 18:00 | XMS_ITS | Patient Health Record ---
Author Organization [facility]inmagdalena [place] Address [address] [facility] [place] [address] Care Team Providers Care Harvest Field Ticketer Name Role Phone Nura Connelly MD, Agustin Primary Care Provide r Unavailable Yovanny Long Unavailable [phone] Reason For Referral No Information Medications Medication SIG (Take, Route, Frequency, Duration) Notes Start Date End Date Status Tacrolimus 1 MG as directed Orally Active Vitamin D3 370226 UNIT/GM as directed Active Magnesium 400 MG as directed Orally Active Omeprazole 20 MG 1 capsule 1/2 to 1 h our before morning meal Orally Once a day Active Multivitamin - 1 tablet Orally Once a day Active Losartan Potassium 25 MG 1 tablet [...] ast year? No Points 0 Interpretation Negative Problems Problem Type SNOMED Code ICD Code Onset Dates Problem Status W/U Status Risk Notes Problem Neurologic disorder associated with type II diabetes mellitus (821179568) Type 2 diabetes mellitus with other diabetic neurological complication (E11.49) Active confirmed Vital Signs Heart Rate 68 /min 06/17/2024 Blood pressure diastolic 81 mm Hg 06/17/2024 Height 5ft 7 in in 06/17/2024 Blood pressure systolic 134 mm Hg 06/17/2024 Weight 205 lbs 06/17/2024 BMI 32.1 kg/m2 06/17/2024 Procedures Procedure Date Ordered Date Performed Result Body Sit e 12344-YIQQCLW NAIL, 6 OR MORE 03/10/2024 N/A 72942-LDPULPB NAIL, 6 OR MORE 06/17/2024 N/A Encounters Encounter Location Date Provider Diagnosis [address] [address] 03/10/2024 Yovanny Long Onychomycosis B35.1 ; Xerosis of skin L85.3 ; Pain in right toe(s) M79.674 and Pain in left toe(s) M79.[address] [address] 06/17/2024 Yovanny Long Onychomycosis B35.1 and Type 2 diabetes mellitus with other diabetic neurological complication E11.[address] [address] 03/10/2024 Yovanny Lnog [address] [address] 05/26/2024 Yovanny Long Assessments Encounter Date Diagnosis (ICD Code) Assessment Notes Treatment Notes Treatment Clinical Notes Section Notes 03/10/2024 Xerosis of skin (ICD-10 - L85.3) Application of Silver Star-Soothe skin lotion to his feet 03/10/2024 Onychomycosis (ICD-10 - B35.1) 06/17/2024 Type 2 diabetes mellitus with other diabetic neurological complication (ICD-10 - E11.49) 06/17/2024 Onychomycosis (ICD-10 - B35.1) 03/10/2024 Pain in right toe(s) (ICD-10 - M79.674) 03/10/2024 Pain in left toe(s) (ICD-10 - M79.675) 05/26/2024 Other 06/17/2024 Other Application of Silver Star-Soothe skin lotion to his feet Plan Of Treatment Pending Test Test Name Order Date [id number] NAIL, 6 OR MORE 03/10/2024 14926-[id number] NAIL, 6 OR MORE 06/17/2024 Next Appt Details Provider Name:Sun kenney, 08/29/2024 11:00:00 AM, [address] [facility], [place], [address], Insurance Providers Payer Name Payer Address Payer Phone Subscriber Number Group Number Insured Name Patient Relationship to Insured Coverage Start Date Coverage End Date [facility] [employer] Claims [address] [place] [id number] Edward Jon Self - patient is the insured Medical (General) History Medical History History ICD Code Back,Hip,and Knee pain Broken bones Cataracts covid-19 Dementia Depression Diabetic Gall bladder problems Hiatal hernia High Blood Pressure Liver disease Psychiatric disorder Surgical History Surgery Date(Month/Year) back surgery 02/2024
--- OUTSIDE RECORDS SUMMARY | 2024-06-22 18:00 | XMS_ITS | Encounter Summary ---
Author Organization [employer] [facility] Address [address] [place] [address] 7t [place] [address] Care Team Providers Care Metal Template Maker Name Role Phone Agustin Marrero MD Primary Care Provide r Reason for Visit * Reason Comments Med Refill Encounter Details Date Type Department Care Team (Late st Contact Info) Description 05/14/2022 Refill [facility] [address] [place], [place] [phone] Agustin Marrero MD [address] [place] [address] Chronic midline low back pain without sciatica [...] Support [facility] [address] [place] [address] Shwetha Collado, RN [address] [place] [address] 07/05/2024 10:00 AM EDT Office Visit [facility] [address] [place] [address] Agustin Marrero MD [address] [place] [address] 11/16/2024 10:00 AM EDT Office Visit [facility] [address] [place] [address] Catherine Antonio [address] [place] [address] documented as of this encounter Visit Diagnoses Diagnosis Chronic midline low back pain without sciatica documented in this encounter Care Teams Metal Template Maker Relationship Specialty Start Date End Date Agustin Marrero MD [address] [place] [address] PCP - General Internal Medicine 01/25/14 [facility] 06/13/16 documented as of this encounter
--- OUTSIDE RECORDS SUMMARY | 2024-06-22 18:00 | XMS_ITS | Encounter Summary ---
Author Organization [facility] Address [address] [place] [address] Care Team Providers Care Casino Accountant Name Role Phone Agustin Mix Primary Care Provider + Encounter Details Date Type Department Care Team (Late st Contact Info) Description 01/21/2017 Transplant Conversio n Encounter [facility] Health Information Management [address] [place] [address] Provider, [facility] Social History Tobacco Use Types Packs/Day Years [...] Info) Description 08/01/2024 11:30 AM EDT Follow-Up [facility] Transplant Services [address] [place] [address] Dylan Phelps MD [address] [place] [address] documented as of this encounter Visit Diagnoses Not on filedocumented in this encounter Additional Health Concerns Infection Onset Date Last Indicated Resolved Time 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
--- OUTSIDE RECORDS SUMMARY | 2024-06-22 18:00 | XMS_ITS | Encounter Summary ---
Author Organization [facility] Address [address] [place] [address] 7t [place] [address] Care Team Providers Care Recycler Name Role Phone Agustin Marrero MD Primary Care Provide r Encounter Details Date Type Department Care Team (Latest Contact Info) Description 06/18/2021 Abstract [facility] CONVERSIONS Dental, Provider, DDS Social History [...] 9:00 AM EST Clinical Support [facility]ICINE [address] [place] [address] Shwetha Collado RN [address] [place] [address] 07/05/2024 10:00 AM EDT Office Visit [facility] [address] [place] [address] Agustin Marrero MD [address] [place] [address] 11/16/2024 10:00 AM EDT Office Visit [facility] ADULT [facility]ENTAL [address] [place] [address] Catherine Antonio [address] [place] [address] documented as of this encounter Visit Diagnoses Not on filedocumented in this encounter Care Teams Recycler Relationship Specialty Start Date End Date Agustin Marrero MD [address] [place] [address] PCP - General Internal Medicine 01/25/14 [facility] 06/13/16 documented as of this encounter
--- OUTSIDE RECORDS SUMMARY | 2024-06-22 18:00 | XMS_ITS | Encounter Summary ---
Author Organization [facility] Address [address] [place] [address] Care Team Providers Care Marking Room Supervisor Name Role Phone Agustin Mix Primary Care Provider + Reason for Visit * Reason Onset Date Comments Results 05/24/2024 Encounter Details Date Type Department Care Team (Late st Contact Info) Description 05/24/2024 Abstract [facility] Transplant Department [address] [place] [address] Dylan Phelps MD [address] [place] [address] Social History Tobacco Use Types Packs/Day Years [...] [facility] Liver Transplant Services [address] [place] [address] Dylan Phelps MD [address] [place] [address] documented as of this encounter Procedures * Due to [facility] law, this organization might not be sharing negative HIV tests. Procedure Name Priority Date/Time Associated Diagnosis Comments LIVER POST EXTERNAL PANEL Routine 05/20/2024 7:36 AM EST documented in this encounter Results * Due to [place] state law, this organization might not be sharing negative HIV tests. * LIVER POST EXTERNAL PANEL (05/20/2024 7:36 AM EST) Tacrolimus, Highly Sensitive 3.6 [facility] Sodium 139 mmol/L [facility] Potassium 4.7 [facility] Chloride 108 [facility] Carbon Dioxide 25 [facility] Glucose 156 [facility] BUN 19 mg/dL [facility] Creatinine 1.01 mg/dL [facility] Calcium 9.6 mg/dL [facility] Total Protein 7.2 g/dL [facility] Albumin 4.4 g/dL [facility] Bilirubin, Total 0.7 mg/dL [facility] Alkaline Phosphatase 123 U/L [facility] AST 38 U/L [facility] ALT 55 U/L [facility] Magnesium 1.70 mg/dL [facility] WBC 4.7 10*3/uL [facility] Hgb 13.7 [facility] Hematocrit 38.0 % [facility] Platelets 123 10*3/uL [facility] 05/20/2024 7:36 AM EST us Dylan Phelps MD LAB BLOOD ORDERABLES Final Re sult [facility] [address] [place] [address] documented in this encounter Visit Diagnoses Not on filedocumented in this encounter Care Teams Marking Room Supervisor Relationship Specialty Start Date End Date Agustin Mix [address] [place] [address] PCP - General Internal Medicine 04/15/17 documented as of this encounter
--- OUTSIDE RECORDS SUMMARY | 2024-06-22 18:00 | XMS_ITS | Encounter Summary ---
Author Organization [employer] [facility] Address [address] [place] [address] 7t [place] [address] Care Team Providers Care Cash Applications Coordinator Name Role Phone Agustin Marrero MD Primary Care Provide r Reason for Visit * Reason Onset Date Comments Med Refill 12/15/2022 Encounter Details Date Type Department Care Team ([facility] st Contact Info) Description 12/15/2022 Telephone [facility] MEDICINE [address] [place], [place] [phone] Agustin Marrero MD [address] [place] [address] Med Refill Social History Tobacco Use Types [...] [facility] MEDICINE [address] [place] [address] Shwetha Collado, RN [address] [place] [address] 07/05/2024 10:00 AM EDT Office Visit [facility] MEDICINE [address] [place] [address] Agustin Marrero MD [address] [place] [address] 11/16/2024 10:00 AM EDT Office Visit [facility] ADULT DENTAL [address] [place] [address] Matty Antonioaris [address] [place] [address] documented as of this encounter Visit Diagnoses Not on filedocumented in this encounter Care Teams Cash Applications Coordinator Relationship Specialty Start Date End Date Agustin Marrero MD [address] [place] [address] PCP - General Internal Medicine 01/25/14 [facility] 06/13/16 documented as of this encounter
--- OUTSIDE RECORDS SUMMARY | 2024-06-22 18:00 | XMS_ITS | Encounter Summary ---
Author Organization [facility] Address [address] [place] [address] Care Team Providers Care General Office Assistant Name Role Phone Agustin Mix Primary Care Provider + Encounter Details Date Type Department Care Team (Late st Contact Info) Description 06/16/2024 Telephone [facility] Transplant Department [address] [place] [address] Isidra Sanchez RN [address] [place] [address] Social History Tobacco Use Types Packs/Day [...] [place] - wanting to know regarding kayexalate [phone] Epifanio Anushka documented in this encounter Plan of Treatment Upcoming Encounters Date Type Department Care Team (Late st Contact Info) Description 08/01/2024 11:30 AM EDT Follow-Up [facility] Liver Transplant Services [address] [place], [place] [phone] Dylan Phelps MD [address] [place] [address] documented as of this encounter Visit Diagnoses Not on filedocumented in this encounter Care Teams General Office Assistant Relationship Specialty Start Date End Date Agustin Mix [address] [place] [address] PCP - General Internal Medicine 04/15/17 documented as of this encounter
--- OUTSIDE RECORDS SUMMARY | 2024-06-22 18:00 | XMS_ITS | Encounter Summary ---
Author Organization [facility] Address [address] [place] [address] Care Team Providers Care Senior Android Developer Name Role Phone Agustin Mix Primary Care Provider + Reason for Visit * Reason Onset Date Comments Results 06/20/2024 Encounter Details Date Type Department Care Team (Late st Contact Info) Description 06/20/2024 Abstract [facility] Transplant Department [address] [place] [address] Dylan Phelps MD [address] [place] [address] Social History Tobacco Use Types Packs/Day Years [...] Info) Description 08/01/2024 11:30 AM EDT Follow-Up [facility] Liver Transplant Services [address] [place] [address] Dylan Phelps MD [address] [place] [address] documented as of this encounter Procedures * Due to [facility] law, this organization might not be sharing negative HIV tests. Procedure Name Priority Date/Time Associated Diagnosis Comments LIVER POST EXTERNAL PANEL Routine 06/17/2024 6:49 AM EST documented in this encounter Results * Due to [place] state law, this organization might not be sharing negative HIV tests. * LIVER POST EXTERNAL PANEL (06/17/2024 6:49 AM EST) Tacrolimus, Highly Sensitive 2.9 [facility] Sodium 138 mmol/L [facility] Potassium 4.4 [facility] Chloride 109 [facility] Carbon Dioxide 22 [facility] Glucose 157 [facility] BUN 19 mg/dL [facility] Creatinine 1.08 mg/dL [facility] Calcium 9.3 mg/dL [facility] Total Protein 7.3 g/dL [facility] Albumin 4.3 g/dL [facility] Bilirubin, Total 0.7 mg/dL [facility] Alkaline Phosphatase 108 U/L [facility] AST 26 U/L [facility] ALT 38 U/L [facility] Magnesium 1.50 mg/dL [facility] WBC 4.9 10*3/uL [facility] Hgb 14.0 [facility] Hematocrit 39.7 % [facility] Platelets 143 10*3/uL [facility] 06/17/2024 6:49 AM EST us Dylan Phelps MD LAB BLOOD ORDERABLES Final Re sult [facility] [address] [place] [address] documented in this encounter Visit Diagnoses Not on filedocumented in this encounter Care Teams Senior Android Developer Relationship Specialty Start Date End Date Agustin Mix [address] [place] [address] PCP - General Internal Medicine 04/15/17 documented as of this encounter
--- OUTSIDE RECORDS SUMMARY | 2024-06-22 18:00 | XMS_ITS | Encounter Summary ---
Author Organization [facility] Address [address] [place] [address] 7t [place] [address] Care Team Providers Care Bulk Tank Car Unloader Name Role Phone Agustin Marrero MD Primary Care Provide r Reason for Visit * Reason Onset Date Comments Med Refill 10/16/2022 Encounter Details Date Type Department Care Team ([facility] st Contact Info) Description 10/16/2022 Telephone [facility] MEDICINE [address] [place], [place] [phone] Agustin Marrero MD [address] [place] [address] Med Refill Social History Tobacco Use Types [...] Description 06/24/2024 9:00 AM EST Clinical Support [facility] MEDICINE [address] [place] [address] Shwetha Collado, KATALINA [address] [place] [address] 07/05/2024 10:00 AM EDT Office Visit [facility] MEDICINE [address] [place] [address] Agustin Marrero MD [address] [place] [address] 11/16/2024 10:00 AM EDT Office Visit [facility] ADULT DENTAL [address] [place] [address] Catherine Antonio [address] [place] [address] documented as of this encounter Visit Diagnoses Not on filedocumented in this encounter Care Teams Bulk Tank Car Unloader Relationship Specialty Start Date End Date Agustin Marrero MD [address] [place] [address] PCP - General Internal Medicine 01/25/14 [facility] 06/13/16 documented as of this encounter
--- OUTSIDE RECORDS SUMMARY | 2024-06-22 18:00 | XMS_ITS | Encounter Summary ---
Author Organization [employer] Address [address] [place] [address] 7t [place] [address] Care Team Providers Care Aegis Console Operator Track Name Role Phone Agustin Marrero MD Primary Care Provide r Encounter Details Date Type Department Care Team (Late st Contact Info) Description 08/28/2022 Abstract [facility] MEDICINE [address] [place] [address] Agustin Marrero MD [address] [place] [address] Social History Tobacco Use Types Packs/Day Years [...] Clinical Support [facility] MEDICINE [address] [place] [address] Shwetha Collado RN [address] [place] [address] 07/05/2024 10:00 AM EDT Office Visit [facility] MEDICINE [address] [place], [place] [phone] Agustin Marrero MD [address] [facility] [place] [phone] 11/16/2024 10:00 AM EDT Office Visit [facility] ADULT DENTAL [address] [facility] [place] [phone] Catherine Antonio 230 [facility] [place] [phone] documented as of this encounter Procedures Procedure Name Priority Date/Time Associated Diagnosis Comments COLONOSCOPY Routine 06/28/2021 documented in this encounter Results * Colonoscopy (06/28/2021) Colonoscopy Normal Normal 06/28/2021 Narrative Shanel Bo - 06/28/2021 9:58 AM EST Recommended 3 year follow up per GI notes ( [facility] ) us Historical Provider [facility] Edited Result - Final documented in this encounter Visit Diagnoses Not on filedocumented in this encounter Care Teams Aegis Console Operator Track Relationship Specialty Start Date End Date Agustin Marrero MD [address] [facility] [place], [place] [phone] PCP - General Internal Medicine 01/25/14 [facility] 06/13/16 documented as of this encounter
--- OUTSIDE RECORDS SUMMARY | 2024-06-22 18:00 | XMS_ITS ---
Author Organization [facility] [place] Address [address] [facility] [place] [address] Care Team Providers Care Plumber Cub Name Role Phone Nura Connelly MD, Agustin Primary Care Provide r Unavailable Yovanny Long Unavailable [phone] REASON FOR VISIT Last Visit PCP 03/2024, At Risk Foot Care Medications Medication SIG (Take, Route, Frequency, Duration) Notes Start Date End Date Status Tacrolimus 1 MG as directed Orally Active Vitamin D3 053449 UNIT/GM as directed Active Omeprazole 20 MG 1 capsule 1/2 to 1 h our before morning meal Orally Once a day Active Losartan Potassium 25 MG 1 tablet Orally Once a day Active Ammonium Lactate 12 % 1 application Exte rnally to affected areas of dry skin to feet except for between the toes Twice a day for 30 days Active Magnesium 400 MG as directed Orally [...] Additional Findings: Tobacco non-user Current no nsmoker Problems Problem Type SNOMED Code ICD Code Onset Dates Problem Status W/U Status Risk Notes Problem Neurologic disorder associated with type II diabetes mellitus (592373346) Type 2 diabetes mellitus with other diabetic neurological complication (E11.49) Active confirmed Vital Signs Height 5ft 7 in in 06/17/2024 Weight 205 lbs 06/17/2024 BMI 32.1 kg/m2 06/17/2024 Blood pressure systolic 134 mm Hg 06/17/19 25 Blood pressure diastolic 81 mm Hg 025 Heart Rate 68 /min 06/17/2024 Procedures Procedure Date Ordered Date Performed Result Body Sit e 02427-MDOBVMP NAIL, 6 OR MORE 06/17/2024 N/A Encounters Encounter Location Date Provider Diagnosis [facility] [address] [address] 06/17/2024 Yovanny Long Onychomycosis B35.1 and Type 2 diabetes mellitus with other diabetic neurological complication E11.49 Assessments Encounter Date Diagnosis (ICD Code) Assessment Notes Treatment Notes Treatment Clinical Notes Section Notes 06/17/2024 Onychomycosis (ICD-10 - B35.1) 06/17/2024 Type 2 diabetes mellitus with other diabetic neurological complication (ICD-10 - E11.49) 06/17/2024 Other Application of Biscoe-Soothe skin lotion to his feet Plan Of Treatment Treatment Notes Assessment Notes Other Application of Biscoe -Soothe skin lotion to his feet Pending Test Test Name Order Date [id number] NAIL, 6 OR MORE 06/17/2024 Next Appt Details Follow Up: 2 Months, Reason: Provider Name:Sun kenney, 08/29/2024 11:00:00 AM, [address] [place] [address], [place], [phone], Procedure Notes * Category Sub-Category Detail Notes [...] use of a nail nipper and/or dremel-type sugar grinder, to a more viable healthy nail plate or bed tissue TA, T1, T2, T3, T4, T5, T6, T7, T8, T9, Silver nitrate used for any petechial bleeding as necessary. Definitive antifungal treatment options have been reviewed and discussed with the patient. The patient chooses, no pharmaceutical tx - 08062 Progress Notes * Edward JONDOB:[birth year] (59 yo M)Acc No.[id number]:06/17/2024 Progress Note Patient:?Salome JON o Provider:?Yovanny Long D.P.M. :1965???Age:59 Y???Sex:Male New e:06/17/2024 Address:[address] [place] [address] [place], [id number] Pcp:Agustin Connelly MD Subjective: * Chief Complaints: * ???Last Visit PCP t Risk Foot Care * ROS:?General/Constitutional:?Nausea?denies, denies.?Vomiting?denies, denies.?Hunger Thirst?denies, denies.?Loss appetite?denies, denies.?Chills?denies, denies.?Fatigue?denies, denies.?Fever?denies, denies.?Night Sweats denies, denies.?Unexplained weight loss?denies, denies.?Unexplained weight gain?denies, denies.?HEENTM:?Dentures?denies, denies.?Dizziness?denies, denies.?Glasses/contacts?denies, denies.?Retinopathy?denies, denies.?Blurred/double vision?denies, denies.?TMJ?denies, denies.?Discharge/drainage?denies, denies.?Implants?denies, denies.?Sore throat?denies, denies.?Dental implants?denies, denies.?Hard of hearing ?denies, denies.?Difficulty chewing/swallowing/speaking?denies, denies.?Nose bleeds?denies, denies.?Sore mouth?denies, denies.?Respiratory:?On Oxygen?denies, denies.?Pneumonia/pleurisy?denies, denies.?Bronchitis?denies, denies.?Emphysema?denies, denies.?Coughing?denies, denies.?Cough blood?denies, denies.?Shortness of breath?denies, denies.?Wheezing?denies, denies.?Cardiovascular:?Pacemaker?denies, denies.?MVP?denies, denies.?WPW?denies, denies.?CHF?denies, denies.?Heart attack?denies, denies.?Septal defect?denies, denies.?Rapid beat?denies, denies.?Chest pain ?denies, denies.?Atrial Fib.?denies, denies.?Murmur/Palpitations?denies, denies.?Gastrointestinal:?Hemorrhoids?denies, denies.?Stomach/Abdominal pain?admits, denies.?Dark blood stool?denies, denies.?Irritable bowel ?denies, denies.?Constipation?denies, denies.?Diarrhea?denies, denies.?Hematology:?Swelling?denies, denies.?Clots?denies, denies.?Varicose Veins?denies, denies.?Bruising?denies, denies.?Bleeding problem?denies, denies.?Genitourinary:?Blood urine?denies, denies.?Frequent/Painfu/urination/bladder control?denies, denies.?Kidney stones?denies, denies.?Infection (UTI)?denies, denies.?Nephropathy?denies, denies.?sex trans dis (STD)?denies, denies.?Prostate?denies, denies.?Musculoskeletal:?Hammertoes?admits, denies.?Bunions?denies, denies.?Back Pain?denies, denies.?Muscle Cramps/ Resting?admits, denies.?Muscle cramps / walking?denies, denies.?Generalized aches and pains?admits, denies.?Weakness?denies, denies.?Integ.:?Cintron?denies, denies.?Scars?denies, denies.?Corns/calluses?admits, admits.?Ingrown nails?denies, denies.?Painful nails?admits,admits.?Open Sores?denies, denies.?Rashes?denies, denies.?Neurologic:?Difficulty sleeping?denies, denies.?Brain disorder?denies, denies.?Numbness?denies, denies.?Balance trouble?denies, denies.?Confusion?denies, denies.?Fainting/blackouts?denies, denies.?Tingling?denies, denies.?Tremors?denies, denies.? * Medical History:? * Surgical History:?back surge ry 02/2024 * Hospitalization/Major Diagno stic Procedure:?Denies Past Hospitalization * Family History:?Mother: poornima topete.?Father: .? * Social History:?Tobacco Use:?Tobacco use other than smoking?Are you an other tobacco user??No ?Tobacco Control (Standard)?Tobacco use:?Nonsmoker ?Additional Findings: Tobacco non-user?Current nonsmoker ???Drugs/Alcohol:?Drugs?Have you used drugs other than those for medical reasons in the past 12 months??No ???Miscellaneous:?Caffeine: yes, frequency:, 1-2 cups per day. ?Children: yes, 2. ?Exercise: yes, walking. ?Marital status: Single. ?Occupation: Unemployed disabled. * Medications:?TakingMultivita min - Tablet 1 tablet Orally Once a day Magnesium 400 MG Capsule as directed Orally Omeprazole 20 MG Capsule Delayed Release 1 capsule 1/2 to 1 hour before morning meal Orally Once a day Tacrolimus 1 MG Capsule as directed Orally Vitamin D3 042820 UNIT/GM Powder as directed Losartan Potassium 25 MG Tablet 1 tablet Orally Once a day Ammonium Lactate 12 % Cream 1 application Externally to affected areas of dry skin to feet except for between the toes Twice a day Medication List reviewed and reconciled with the patientTaking Multivitamin - Tablet 1 tablet Orally Once a day Taking Magnesium 400 MG Capsule as directed Orally Taking Omeprazole 20 MG Capsule Delayed Release 1 capsule 1/2 to 1 hour before morning meal Orally Once a day Taking Tacrolimus 1 MG Capsule as directed Orally Taking Vitamin D3 353445 UNIT/GM Powder as directed Taking Losartan Potassium 25 MG Tablet 1 tablet Orally Once a day Taking Ammonium Lactate 12 % Cream 1 application Externally to affected areas of dry skin to feet except for between the toes Twice a day Medication List reviewed and reconciled with the patient Objective: * Vitals:?Ht:5ft 7 in, Wt:205, BMI:32.1, Shoe size:9, BP:134/81mm Hg, HR:68/min, BS:134, Ht-cm: 170.18 cm, Wt-k.99 kg. 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.?ORIENTED:?person, place, and time.?FOOT EXAM:?Lower Extremity Neurological Exam performed:?Yes ?Visual exam of foot performed:?Yes ?Date?06/17/2024 ?Sensory testing performed:?sensations diminished ?Sensory and motor testing performed:?strength normal ?Pedal pulse taking performed:?2+ ?Footwear Evaluation?Footwear Evaluation performed:?Yes?Neurological: ?SENSORY:?(DM/Neuro) Neurological exam demonstrates reduced sharp/dull pin prick discrimination reduced light touch sensation reduced vibration sensation reduced proprioception sensation in a stocking fashion 5.07 monofilament test performed at plantar aspects of 5 varied sites per foot shows sensation plantar aspects absent at Forefoot B/L.?DEEP TENDON REFLEXES:?Achilles, 2/4, B/L.?Vascular: ?DP PULSES (B):?2/4, B/L.?PT PULSES (B):?2/4, B/L.?CAPILLARY FILL TIME:?immediate, all digits, B/L.?TROPHIC CONDITION-TEXTURE/ELASTICITY/TURGOR/HAIR GROWTH (B):?normal, B/L.?TEMPERTURE GRADIENT (C):?warm to cool, proximal to distal, B/L.?PIGMENTATION:?normal, B/L.?EDEMA (C):?absent, B/L.?Dermatologic: ?SKIN FINDINGS:?Skin exam reveals normal texture, elasticity, and turgor. There are no masses. The interspaces are clear ,.?Orthopedic: ?MUSCLE STRENGTH:?5/5 all groups in a symmetrical fashion , B/L.?FOOTWEAR:?Shoe gear were inspected and noted to be worn, but in good condition giving proper support at the present time.?Nails: ?NAILS are:?Elongated, overgrown, dystrophic, lytic, greater than 3mm thick, discolored and friable with crumbly malodorous subungual debris, with dull to no pain on palpation due to neuropathy , TA, T1, T2, T3, T4, T5, T6, T7, T8, T9.? 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 Plan: * Treatment: 2.?Others? Notes: Application of Biscoe-Soothe skin lotion to his feet?? * Procedures:?Debride Nail 6-10:?Nail debridement?Performance of this nail treatment by a nonprofessional would put this patients foot and overall health at risk. Therefore, debridement to affected nail(s), as described in exam, was performed extensively to reduce/remove overall nail length, girth, thickness, subungual debris, and necrotic tissue, by manual and/or electrical means through the use of a nail nipper and/or dremel-type sugar grinder, to a more viable healthy nail plate or bed tissue TA, T1, T2, T3, T4, T5, T6, T7, T8, T9, Silver nitrate used for any petechial bleeding as necessary. Definitive antifungal treatment options have been reviewed and discussed with the patient. The patient chooses, no pharmaceutical tx - 80534.? * Procedure Codes:?92213 DEBRI DE NAIL, 6 OR MORE * Preventive Medicine:? ??Counseling:?Diabetic Footcare:?The patient was advised against future self nail/callus care due to inherent risks for infection, loss of limb/life given diabetes, neuropathy.? ??Screening/Special Tests:?Fall Risk?Assessment:?Performed ?Plan of Care:?Documented ?Screening:?No falls in the past year ?FALLS: Screening for Future Fall Risk?Have you had two or more falls in the past year??No ?Have you had any falls with injury in the past year??No * Follow Up:?2 Months * Images: * Sign off status: Completed true * Provider:?Yovanny Long D.P.M. Date:?05/22 Generated for Francisco reagan/Eloina/Samantha on:?06/22/2024 06:00 PM EST History and Physical Notes * Examination Category Sub-Category Detail Notes Category Not es Neurological SENSORY: (DM/Neuro) Neuro logical exam demonstrates reduced sharp/dull pin prick discrimination reduced light touch sensation reduced vibration sensation reduced proprioception sensation in a stocking fashion 5.07 monofilament test performed at plantar aspects of 5 varied sites per foot shows sensation plantar aspects absent at Forefoot B/L DEEP TENDON REFLEXES: Achilles, 2/4, B/L Dermatologic SKIN FINDINGS: Skin exam reveal s normal texture, elasticity, and turgor. There are no masses. 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 FOOT EXAM: Lower Extremity Neurological Exa m performed:: Yes Visual exam of foot performed:: Yes Date: 06/17/2024 Sensory testing performed:: sensations d iminished Sensory and motor testing performed:: [facility] normal Pedal pulse taking performed:: 2+ ORIENTED: person, place, and t tasneem Footwear Evaluation Footwear Evaluation performe d:: Yes Ophthalmology Referral DIABETES EYE EXAM Procedure Perform ed:: Yes ?Date of Exam Performed: 12/01/2023 Vascular DP PULSES (B): 2/4, B/L PT [...] friable with crumbly malodorous subungual debris, with dull to no pain on palpation due to neuropathy , TA, T1, T2, T3, T4, T5, T6, T7, T8, T9 CQM Exceptions: Hemoglobin A1c not performed Reason:: No r luis specified
--- OUTSIDE RECORDS SUMMARY | 2024-06-22 18:00 | XMS_ITS | Clinical Summary ---
Author Organization [facility] Address [address] [place] [address] Care Team Providers Care Adjunct Instructor In Economics Name Role Phone Agustin Mix Primary Care [...] daily 01/25/20 22 Active FreeStyle Arvin 2 [place] misc 01/17/20 22 Active BD Insulin Syringe [...] in March 2020. He was seen by foxing painter at [facility] who discussed that he might need [...] for liver biopsy, since LFT pattern not employment representative of rejection. Additionally, Liver ultrasound showed [...] of recurrent ESBL bacteremia. Initially presented to [facility] for fever, LE swelling and pain. Unclear source. BCX grew esbl E.Coli 1 out of 2 sets from [facility], susceptible to Ertapenem. Initially he was on [...] of recurrent ESBL bacteremia. Initially presented to [facility] for fever, LE swelling and pain. Unclear source. BCX grew esbl E.Coli 1 out of 2 sets from [facility], susceptible to Ertapenem. Initially he was on [...] recurrent ESBL bacteremia. Patient initially presented to [facility] for fever and LE swelling and pain. Unclear source. BCX grew esbl E.Coli 1 out of 2 sets from [facility], susceptible to Ertapenem. Initially he was on zosyn, and was switched to ertapenem. On previous admission, MRCP on 12/20 or Abdominal US on 01/16 showed no biliary dilatation. - continue ertapenem (10 day course to be completed on 02/09 per [facility] note) - repeat BCX - CT AP w/ contrast - consult transplant ID in the AM - f/u CBC and CMP Assessment & Plan (02/05/2019 5:40 AM EDT): Patient has a recurrent history of recurrent ESBL bacteremia. Patient initially presented to [facility] for fever and LE swelling and pain. Unclear source. BCX grew esbl E.Coli 1 out of 2 sets from [facility], susceptible to Ertapenem. Initially he was on zosyn, and was switched to ertapenem. On previous admission, MRCP on 12/20 or Abdominal US on 01/16 showed no biliary dilatation. - continue ertapenem (10 day course to be completed on 02/09 per [facility] note) - repeat BCX - CT AP w/ contrast Abscess of leg, right 02/05/20192018 Assessment & Plan (02/22/2019 3:37 PM EST): Patient has worsened leg edema R>L w/ rt side 4+ pitting edema. At [facility], US was negative for DVT. CT [...] w/ rt side 4+ pitting edema. At [facility], US was negative for DVT. CT [...] Right side has 4+ pitting edema. At [facility], US was obtained and ruled out [...] was found. OSH GI recommended transfer to [facility] as there was a suspicion for [...] pathology. -BCx grew GNR?? -transplant ID consulted -[facility] was called for speciation, it will [...] concerning for pathology. -Transplant ID is following -[facility] will fax culture data, commented that [...] 8:59 AM EST): Hyponatremic to 132 at [facility]. Na 128, constant through hospitalization. - daily BMP Assessment & Plan (02/09/2019 11:02 AM EDT): Hyponatremic to 132 at [facility]. Na 128, constant through hospitalization. - daily BMP Assessment & Plan (02/05/2019 5:51 AM EDT): Hyponatremic to 132 at [facility]. - repeat BMP in am and redose diuretics Assessment & Plan (02/05/2019 5:47 AM EDT): Hyponatremic to 132 at [facility]. - repeat BMP in am and [...] Presented again on day of admission to [facility] with worsening shortness of breath where a CT chest PE protocol was performed which showed no evidence of intraluminal filling defect though did make note of large left- sided pleural effusion with associated complete left lower lobe collapse as well as partial left upper lobe collapse. Due to recurrent pleural effusion and likely need for repeat thoracentesis patient was transferred [facility]. On arrival patient without any increased work of breathing and saturating well on room air. Exam reveals absent breath sounds in the left middle and lower lung perez with increased dullness to percussion. 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 -We will have CT scan from [facility] uploaded into our system for review -CXR on 07/11 showed large left pleural effusion -IP consulted for thoracentesis. Will send fluid studies. -Requested [facility] records of pleural fluid studies from 07/06 -Supplemental oxygen as needed to maintain sats greater than 92% Assessment & Plan (01/19/2019 10:11 AM EDT): Patient is s/p thoracentesis after large left lung effusion unchanged from previous admission seen on imaging. Site of thoracentesis covered with bandage that is dry and intact. Chart review of his prior hospitalization at [facility] revealed that he had thoracentesis on January 11, 2019, during which 1.6 L was taken out, and fluid study revealed white blood cell count of 2650 and segs of 35%, suggesting exudative fluid, although it seems that no paracentesis was done at [facility]. - decreased breath sounds in middle and [...] resulting transudative fluid, rapidly reaccumulating, transferred to [facility] for TIPS intervention. Resumed diuretics today [...] procedure in 2017. Most recent hospitalization at [facility] was in January 2019 when he [...] to hyperkalemia. Of note, reached out to [facility] to double check if paracentesis was done, and whether there is a fluid study of the sample, however it appears that no paracentesis was done at [facility]. - Start Lactulose increased to 20 g [...] from TIPS procedure and was sent to [facility] for further evaluation. Plan -Continue with [...] 20mg daily and spironolactone 50mg daily. At [facility], patient received IV lasix 40mg daily. [...] 20mg daily and spironolactone 50mg daily. At [facility], patient received IV lasix 40mg daily. [...] Type Department Care Team Description 06/21/2024 Abstract [facility] Transplant Department [address] [place] [address] Dylan [place] MD 06/20/2024 Results Follow-Up [facility] Liver Transplant Services [address] [place] [address] Sonya Melendez, KATALINA 06/20/2024 Abstract [facility] Transplant Department [address] [place] [address] 41158 Dylan [place] MD 06/16/2024 Telephone [facility] Transplant Department [address] [place] [address] 69[address] Isidra Sanchez, KATALINA 05/25/2024 Abstract [facility] Transplant Department [address] [place] [address] 23476 Dylan [place] MD 05/24/2024 Abstract [facility] Transplant Department [address] [place] [address] 40392 Dylan [place] MD 05/11/2024 Telephone [facility] Transplant Department [address] [place] [address] [phone] Erika Bonds, KATALINA 04/29/2024 Abstract [facility] Transplant Department [address] [place] [address]24[address] Dylan [place] MD 04/28/2024 Abstract [facility] Transplant Department [address] [place] [address] 05724 Dylan [place] MD 04/26/2024 Abstract [facility] Transplant Department [address] [place] [address] Dylan [place] MD 04/06/2024 Abstract [facility] Transplant Department [address] [place] [address] Dylan [place] MD from Last 3 Months [...] Info) Description 08/01/2024 11:30 AM EDT Follow-Up [facility] Liver Transplant Services [address] [place] [address] Dylan [place] MD [address] [place] [address] Health Maintenance Due Date Last Done Comments [...] ual Screening 04/20/2024 Hemoglobin A1C 06/04/2024 12/03/2023, 022 10/2023, 02/12/2023, Additional history exists Basic Metabolic Panel [...] previous LungRADS 1 or 2) Discontinued 11/30/2023, 11/05/19 24, 05/06/2022, Additional history exists Influenza Vaccine Completed 01/25/2024, , 05/06/2022, Additional history exists Medical Devices Implanted Type Area Reconciliation Coordinator Device Identifier Shelf Expiration Date Model / Serial / Lot Shunt Transjugular Intrahepatic Portosystemic Tips Endoprosthesis [id number] Viatorr - [id number] Implanted:Qty: 1 on 07/28/2017 at [facility] Implant W L GORE 12/26/2019 [id number] / / Mesh Hernia With Strap Large Ventralex - [id number] Implanted:Qty: 1 on 03/20/2020 by Fernando Fine MD PhD at [facility] Mesh Right: Abdomen CR [employer] 01/15/2021 [id number] / / [id number] Stent Biliary Rx Fully Covered Self Expanding Metallic Rmv With Permalume Covering 8.5fr [id number] Wallflex - [id number] - [id number] Implanted:Qty: 1 on 11/21/2022 by Dunia Osorio MD at [facility] Stent N/A: Bile Duct [employer] 08/21/2024 [id number] / [id number] / Explanted Type Area Reconciliation Coordinator Device Identifier Shelf Expiration Date Model / Serial / Lot Ercp Stent-11/21/2022 Implanted:080 07/2022 (Quantity not on file) Explanted:1106/2022 (Quantity not on file) ERCP Stent Bile Duct 1 / / Txp Internal Biliary Stent- 0 Implanted:042 04/2019 (Quantity not on file) Explanted:060 07/2020 (Quantity not on file) TXP Internal Biliary Stent Bile Duct Procedures * Due to [place] state law, this organization might not be [...] to Health Maintenance Results * Due to [place] state law, this organization might not be sharing negative HIV tests. * LIVER POST EXTERNAL PANEL (06/17/2024 6:49 AM EST) Only the most recent of4 resultswithin the time period is included. Tacrolimus, Highly Sensitive 2.9 [facility] Sodium 138 mmol/L [facility] Potassium 4.4 [facility] Chloride 109 [facility] Carbon Dioxide 22 [facility] Glucose 157 [facility] BUN 19 mg/dL [facility] Creatinine 1.08 mg/dL [facility] Calcium 9.3 mg/dL [facility] Total Protein 7.3 g/dL [facility] Albumin 4.3 g/dL [facility] Bilirubin, Total 0.7 mg/dL [facility] Alkaline Phosphatase 108 U/L [facility] AST 26 U/L [facility] ALT 38 U/L [facility] Magnesium 1.50 mg/dL [facility] WBC 4.9 10*3/uL [facility] Hgb 14.0 [facility] Hematocrit 39.7 % [facility] Platelets 143 10*3/uL [facility] 06/17/2024 6:49 AM EST us Dylan [place] MD LAB BLOOD ORDERABLES Final Re sult [facility] [address] [place] [address] * AFP Tumor Marker, Outside Lab (06/17/2024 6:49 AM EST) Only the most recent of3 resultswithin the time period is included. Alpha Fetoprotein, Tumor Marker 1.3 [facility] Blood Structure of peripheral vein / Unknown 06/17/2024 6:49 AM EST Dylan [place] MD LAB BLOOD ORDERABLES Final Re sult Performing Organization Address [facility] Co de Phone Number [facility] [address] [place] [address] [phone] * Tacrolimus Level, Outside Lab (04/25/2024 7:13 AM EST) Tacrolimus, Highly Sensitive 5.5 [facility] Blood Structure of peripheral vein / Unknown 04/25/2024 7:13 AM EST Dylan [place] MD LAB BLOOD ORDERABLES Final Re sult Performing Organization Address [facility] de Phone Number [facility] [address] [place] [phone] * CT Chest W Contrast (11/05/2023 4:35 [...] obtain the completed interpretation. ? Workstation ID: [id number] Up-to-date CT equipment and radiation dose reduction techniques were employed. CTDIvol: 3.1 - 23.9 mGy. DLP: 2643 mGy-cm. ??The following accession numbers are related to this dose report [id number]: [id number] Narrative 11/19/2023 3:36 PM EDT Indication: ??58 [...] the spine. ??Bilateral gynecomastia. Resulting Agency Comment [id number] Procedure Note Natasha Michaud MD - 11/19/2023 [...] possible to obtain thecompleted interpretation. Workstation ID: [id number] Up-to-date CT equipment and radiation dose reduction techniques wereemployed. CTDIvol: 3.1 - 23.9 mGy. DLP: 2643 mGy-cm. The followingaccession numbers are related to this dose report [id number]: [id number] us Dylan [place] MD [facility] [place] PROCEDURES Final Resul t * (ABNORMAL) Basic Metabolic Panel (11/15/2022 3:07 AM EDT) NA 135 135 - 145 mmol/L 11/15/2022 4:09 AM [facility] [employer] value [facility] K 4.6 3.5 - 5.3 mmol/L 11/15/2022 4:09 AM [facility] Fair value [facility] Cl 103 97 - 110 mmol/L 11/15/2022 4:09 AM [facility] Fair value [facility] CO2 24 24 - 32 mmol/L 11/15/2022 4:09 AM [facility]MobileIgniterSD Fair value [facility] BUN 27(H) 7 - 23 mg/dL 11/15/2022 4:09 AM [facility]ALShenzhen Idream[employer] TechnologyCACrowd PlayMEM[facility]IAL [facility] Fair value [facility] LAB[facility] Creatinine 1.05 0.60 - 1.30 mg/dL 11/15/2022 4:09 AM [facility] Fair value [facility] Glucose 268(H) 70 - 99 mg/dL 11/15/2022 4:09 AM [facility] Fair value [facility] Calcium 8.8 8.7 - 10.7 mg/dL 11/15/2022 4:09 AM [facility] [employer] CL[facility]ICAL PATHOLOGY LABOR[facility]ORY Anion Gap 8 5 - 15 11/15/2022 4:09 AM [facility] Fair value [facility] eGFR 82 >=60 mL/min/1. 73m2 11/15/2022 4:09 AM [facility] Fair value [facility] Comment:The estimated glomer ular [...] ORDERABLES Final Re sult Performing Organization Address [facility] Co de Phone Number [employer] [facility] LAB[facility]ORY [address] [place] [address], * Microalbumin, Random Urine with Creatinine (05/17/2021 11:35 AM EST) Microalbumin, Urine 1.1 mg/dL 05/17/2021 12:34 PM EST [employer] [facility] LAB[facility] Creatinine, Urine 97 22 - 328 mg/dL 05/17/2021 12:34 PM EST [employer] [facility] LAB[facility] Microalb/Creat Ratio, Random Urine 11.3 <30.0 mcg/mgCr 05/17/2021 12:34 PM EST [employer] [facility] Comment: Microalbumin Reference Range: Normal ? <30 mcg/mg Creatinine Microalbuminuria ? 30-300 mcg/mg Creatinine Clinical Albuminuria >300 mcg/mg Creatinine Reference: ADA Guideline. Diabetes Care. 2004;27 (suppl 1) Urine Voided urine specimen / Unknown Non-Blood Collection / Unknown 05/17/2021 11:35 AM EST 05/17/2021 12:01 PM EST Angelita Villa MD LAB URINE ORDERABLES Final Resul t Performing Organization Address City/[facility]/ZIP Co de Phone Number [employer] [facility] LAB[facility]ORY [address] [place] [phone], * (ABNORMAL) Hemoglobin A1c (05/17/2021 11:31 AM EST) Hemoglobin A1C 7.7(H) <5.7 % of total Hgb 05/18/2021 2:37 AM EST [employer] Comment: For someone without known diabetes, a [...] (MG/DL) 174 mg/dL 05/18/2021 2:37 AM EST [facility] eAG (MMOL/L) 9.7 mmol/L 05/18/2021 2:37 AM EST [facility] Blood Structure of peripheral vein / Unknown Venipuncture / Unknown 05/17/2021 11:31 AM EST 05/17/2021 11:40 AM EST Narrative [facility] - 05/18/2021 2:37 AM EST [facility] Received Date: us Angelita Villa MD LAB BLOOD ORDERABLES Final Resul t [facility] [address], [place] [address], [email or web address] [facility] [address], [place] [address], * CT Abdomen Pelvis with Contrast (05/05/2020 5:27 PM EST) Anatomical Region Laterality Modality Body Computed Tomogra phy 05/06/2020 8:40 AM EST Impressions 05/06/2020 8:50 AM EST Small fluid pocket between the incision and transverse colon which may represent developing adhesions. Recommend correlation for any signs of infection in the incision on exam. Otherwise, no CT findings that might explain patient's fever. [id number] Narrative 05/06/2020 8:50 AM EST EXAMINATION: CT [...] no CT findings that mightexplain patient's fever. [id number] Reyes Voss MD IM CT PROCEDURES Final Result * Hepatitis C RNA, Quantitative, PCR (09/09/2019 11:52 AM EDT) Hcv RNA, Quantitative Real Time PCR <15 NOT DETECTED NOT DETECTED IU/mL 09/14/2019 5:38 PM EDT [facility] Hepatitis C Quantitative PCR Log IU/mL <1.18 NOT DETECTED NOT DETECTED Log IU/mL 09/14/2019 5:38 PM EDT [facility] Comment: This test was performed using Real-Time Polymerase Chain Reaction. Reportable Range: 15 IU/mL to 100,000,000 IU/mL (1.18 Log IU/mL to 8.00 Log IU/mL). ?? The analytical performance characteristics of this assay have been determined by [employer]. The modifications have not been cleared or approved by the FDA. This assay has been validated pursuant to the CLIA regulations and is used for clinical purposes. ?? For more information on this test, go to: http://education.[employer]/faq/LZE20t6 (This link is being provided for informational/ educational purposes only.) Blood Structure of peripheral vein / Unknown Venipuncture / Unknown 09/09/2019 11:52 AM EDT 09/09/2019 12:07 PM EDT [facility] - 09/14/2019 5:38 PM EDT [facility] Received Date: Cyndi Pereira MD LAB BLOOD ORDERAB LES Final Result [facility] [address] [facility], [place] [address], [facility] [address], [place] [address], from Last 3 Months or Most Recently Relevant to Health [place] [address] [facility] [address] [place] [address] [facility] Advance Directives Documents on File Type Date Recorded Patient [place] Rafting Guide Expl anation Health Care Proxy 02/05/2019 4:40 [...] Rivera Hebert Health Care Agent Care Teams Adjunct Instructor In Economics Relationship Specialty Start Date End Date Agustin Mix [address] [place] [phone] PCP - General Internal Medicine 04/15/17
--- OUTSIDE RECORDS SUMMARY | 2024-06-22 18:00 | XMS_ITS | Encounter Summary ---
Author Organization [facility] Address [address] [place] [address] Care Team Providers Care Pilot Name Role Phone Agustin Mix Primary Care Provider + Reason for Visit * Reason Onset Date Comments Results 05/25/2024 Encounter Details Date Type Department Care Team (Late st Contact Info) Description 05/25/2024 Abstract [facility] Transplant Department [address] [place] [address] Dylan [place] MD [address] [place] [address] Social History Tobacco Use Types Packs/Day Years [...] Info) Description 08/01/2024 11:30 AM EDT Follow-Up [facility] Liver Transplant Services [address] [place] [address] Dylan [place] MD [address] [place] [address] documented as of this encounter Procedures * Due to [place] Property Owl law, this organization might not be sharing negative HIV tests. Procedure Name Priority Date/Time Associated Diagnosis Comments AFP TUMOR MARKER, OUTSIDE LAB Routine 05/20/2024 7:46 AM EST documented in this encounter Results * Due to [place] state law, this organization might not be sharing negative HIV tests. * AFP Tumor Marker, Outside Lab (05/20/2024 7:46 AM EST) Alpha Fetoprotein, Tumor Marker 1.2 [facility] Blood Structure of peripheral vein / Unknown 05/20/2024 7:46 AM EST us Dylan [place] MD LAB BLOOD ORDERABLES Final Re sult [facility] [address] [place] [address] documented in this encounter Visit Diagnoses Not on filedocumented in this encounter Care Teams Pilot Relationship Specialty Start Date End Date Agustin Mix [address] [place] [phone] PCP - General Internal Medicine 04/15/17 documented as of this encounter
--- OUTSIDE RECORDS SUMMARY | 2024-06-22 18:00 | XMS_ITS | Encounter Summary ---
Author Organization [facility] Address [address] [place] [address] Care Team Providers Care Tax Map Technician Name Role Phone Agustin Mix Primary Care Provider + Encounter Details Date Type Department Care Team (Late st Contact Info) Description 06/20/2024 Results Follow-Up [facility] Liver Transplant Services [address] [place] [address] Sonya Melendez RN Social History Tobacco Use Types Packs/Day Years [...] Info) Description 08/01/2024 11:30 AM EDT Follow-Up [facility] Liver Transplant Services [address] [place] [address] Dylan [place] MD [address] [place] [address] documented as of this encounter Visit Diagnoses Not on filedocumented in this encounter Care Teams Tax Map Technician Relationship Specialty Start Date End Date Agustin Mix [address] [place] [phone] PCP - General Internal Medicine 04/15/17 documented as of this encounter
--- OUTSIDE RECORDS SUMMARY | 2024-06-22 18:00 | XMS_ITS ---
Author Organization [facility] Address [address] [place] [address] Care Team Providers Care Director Of Cardiology Name Role Phone Agustin Mix Primary Care Provider + Transplant Episode Liver Recipient [facility] ([place] [place]) - [facility] Organ Received: Liver Transplanted on 08/09/2019 Marked as Active Follow-up on 08/09/2019 Liver CoordinatorErika Bonds RN Phone: N/A Fax: N/A Email: N/A [place] Organ Diagnosis Organ Primary Contributory Liver Alcoholic [...] Coordinator N/A N/A N/A Dylan [place] MD Strategic Intelligence Officer [phone] [email or web address] Sarai Diaz Referring Physician [phone] N/A Events Post-Transplant Pre-Transplant Admitted: 08/09/2019 Referred: 09/08/2016 Transplanted: 08/09/2019 Evaluation began: 7 Discharged: 08/25/2019 Committee: 10/24/2016 Center waitlisted: 7
--- OUTSIDE RECORDS SUMMARY | 2024-06-22 18:00 | XMS_ITS | Encounter Summary ---
Author Organization [employer] [facility] Address [address] [place] [address] 7t [place] [address] Care Team Providers Care Billboard Mechanic Name Role Phone Agustin Marrero MD Primary Care Provide r Encounter Details Date Type Department Care Team (Latest Contact Info) Description 07/16/2020 Abstract [facility] CONVERSIONS Dental, Provider, DDS Social [...] Description 06/24/2024 9:00 AM EST Clinical Support [facility] MEDICINE [address] [place] [address] Shwetha Collado RN 505 [place] [address] 07/05/2024 10:00 AM EDT Office Visit [facility] MEDICINE [address] [place] [address] Agustin Marrero MD 230 [place] [address] 11/16/2024 10:00 AM EDT Office Visit [facility] ADULT DENTAL [address] [place] [address] Catherine Antonio [address] [place] [address] documented as of this encounter Visit Diagnoses Not on filedocumented in this encounter Care Teams Billboard Mechanic Relationship Specialty Start Date End Date Agustin Marrero MD [address] [place] [address] PCP - General Internal Medicine 01/25/14 [facility] 06/13/16 documented as of this encounter
--- OUTSIDE RECORDS SUMMARY | 2024-06-22 18:01 | XMS_ITS | Encounter Summary ---
Author Organization [facility] Address [address] [place] [address] Care Team Providers Care Lathe Turner Name Role Phone Agustin Mix Primary Care Provider + Reason for Visit * Reason Onset Date Comments Results 06/21/2024 Encounter Details Date Type Department Care Team (Late st Contact Info) Description 06/21/2024 Abstract [facility] Transplant Department [address] [place] [address] Dylan Phelps MD [address] [place] [address] Social History Tobacco Use Types Packs/Day Years [...] Info) Description 08/01/2024 11:30 AM EDT Follow-Up [facility] Liver Transplant Services [address] [place] [address] Dylan Phelps MD [address] [place] [address] documented as of this encounter Procedures * Due to [place] Germ[place] law, this organization might not be sharing negative HIV tests. Procedure Name Priority Date/Time Associated Diagnosis Comments AFP TUMOR MARKER, OUTSIDE LAB Routine 06/17/2024 6:49 AM EST documented in this encounter Results * Due to [place] state law, this organization might not be sharing negative HIV tests. * AFP Tumor Marker, Outside Lab (06/17/2024 6:49 AM EST) Alpha Fetoprotein, Tumor Marker 1.3 [facility] Blood Structure of peripheral vein / Unknown 06/17/2024 6:49 AM EST us Dylan Phelps MD LAB BLOOD ORDERABLES Final Re sult [facility] [address] [place] [address] documented in this encounter Visit Diagnoses Not on filedocumented in this encounter Care Teams Lathe Turner Relationship Specialty Start Date End Date Agustin Mix [address] [place] [address] PCP - General Internal Medicine 04/15/17 documented as of this encounter
--- OUTSIDE RECORDS SUMMARY | 2024-06-22 18:01 | XMS_ITS | Encounter Summary ---
Author Organization [employer] Address [address] [place] [address] 7t [place] [address] Care Team Providers Care Live In Housekeeper Nanny Name Role Phone Agustin Marrero MD Primary Care Provide r Reason for Visit * Reason Comments Med Refill Encounter Details Date Type Department Care Team ([facility] st Contact Info) Description 06/04/2023 Refill [facility] MEDICINE [address] [place], [place] [phone] Natasha Nguyen MD 230 [place], [place] [phone] Gastroesophageal reflux disease, unspecified whether esophagitis present [...] 9:00 AM EST Clinical Support [facility] MEDICINE [address] [place] [address] Shwetha Collado, KATALINA [address] [place] [address] 07/05/2024 10:00 AM EDT Office Visit [facility] MEDICINE [address] [place] [address] Agustin Marrero MD 230 [place] [address] 11/16/2024 10:00 AM EDT Office Visit [facility] ADULT DENTAL [address] [place] [address] Catherine Antonio [address] [place] [address] documented as of this encounter Visit Diagnoses Diagnosis Gastroesophageal reflux disease, unspecified whether esophagitis present documented in this encounter Care Teams Live In Housekeeper Nanny Relationship Specialty Start Date End Date Agustin Marrero MD [address] [place] [address] PCP - General Internal Medicine 01/25/14 [facility] 06/13/16 documented as of this encounter
--- OUTSIDE RECORDS SUMMARY | 2024-06-22 18:01 | XMS_ITS | Encounter Summary ---
Author Organization [facility] Address [address] [place] [address] Care Team Providers Care Risk And Insurance Manager Name Role Phone Agustin Mix Primary Care Provider + Encounter Details Date Type Department Care Team (Late st Contact Info) Description 04/02/2020 Orders Only [facility] Interventional Radiology [address] [place] [address] Kathy Bowling MD 55 [place] [address] Social History Tobacco Use Types Packs/Day Years [...] Info) Description 08/01/2024 11:30 AM EDT Follow-Up [facility] Liver Transplant Services [address] [place] [address] Dylan Phelps MD [address] [place] [address] documented as of this encounter Visit Diagnoses Not on filedocumented in this encounter Additional Health Concerns Infection Onset Date Last Indicated Resolved Time COVID-19 - Confirmed infection 05/01/2020 05/07/2020 06/01/2020 5:06 PM EST COVID-19 - Suspected infection 05/10/2020 05/10/2020 05/24/2020 10:34 PM EST documented as of this encounter Care Teams Risk And Insurance Manager Relationship Specialty Start Date End Date Agustin Mix [address] [place] [address] PCP - General Internal Medicine 04/15/17 documented as of this encounter
--- OUTSIDE RECORDS SUMMARY | 2024-06-22 18:01 | XMS_ITS | Encounter Summary ---
Author Organization [employer] Address [address] [facility] 7t [place] [address] Care Team Providers Care Agriculture Technician Name Role Phone Agustin Marrero MD Primary Care Provide r Encounter Details Date Type Department Care Team (Late st Contact Info) Description 05/05/2023 Telephone [facility] MEDICINE [address] [place], [place] [phone] Agustin Marrero MD 230 [place], [place] [phone] Social History Tobacco Use Types Packs/Day Years [...] AM EST Clinical Support [facility] MEDICINE [address] [place] [address] Shwetha Collado RN 505 [place] [address] 07/05/2024 10:00 AM EDT Office Visit [facility] MEDICINE [address] [place] [address] Agustin Marrero MD [address] [place] [address] 11/16/2024 10:00 AM EDT Office Visit [facility] ADULT DENTAL [address] [place] [address] Catherine Antonio [address] [place] [address] documented as of this encounter Visit Diagnoses Not on filedocumented in this encounter Care Teams Agriculture Technician Relationship Specialty Start Date End Date Agustin Marrero MD [address] [place] [address] PCP - General Internal Medicine 01/25/14 [facility] 06/13/16 documented as of this encounter
--- OUTSIDE RECORDS SUMMARY | 2024-06-22 18:01 | XMS_ITS | Encounter Summary ---
Author Organization [employer] Address [address] [place] [address] 7t [place] [address] Care Team Providers Care Sap Treasury Consultant Name Role Phone Agustin Marrero MD Primary Care Provide r Reason for Visit * Reason Onset Date Comments Med Refill 04/14/2024 Encounter Details Date Type Department Care Team ([facility] st Contact Info) Description 04/14/2024 Telephone [facility] MEDICINE [address] [place], [place] [phone] Agustin Marrero MD 230 [place] [address] Med Refill Social History Tobacco Use Types [...] to soon for refill script sent to [facility] #[id number] on 03/24/24. * Telephone Encounter - Catherine Quiroz - 04/14/2024 11:49 AM EST TC from pt requesting medication refill. Medications needing refill : gabapentin (Neurontin) 300 MG capsule To be sent to: [facility]/pharmacy #[id number] - [address] documented in this encounter Plan of Treatment Upcoming Encounters Date Type Department Care Team (Late st Contact Info) Description 06/24/2024 9:00 AM EST Clinical Support [facility] MEDICINE [address] [place] [address] Shwetha Collado, KATALINA [address] [place] [address] 07/05/2024 10:00 AM EDT Office Visit [facility] MEDICINE [address] [place] [address] Agustin Marrero MD 230 [place] [address] 11/16/2024 10:00 AM EDT Office Visit [facility] ADULT DENTAL [address] [place], [place] [phone] Catherine Antonio [address] [place] [address] documented as of this encounter Visit Diagnoses Not on filedocumented in this encounter Additional Health Concerns Assessment Noted Time PHQ-9 Depression Total Score: 0 12/03/19 10:31 AM EDT documented as of this encounter Care Teams Sap Treasury Consultant Relationship Specialty Start Date End Date Agustin Marrero MD 230 [place] [address] PCP - General Internal Medicine 01/25/14 [facility] 06/13/16 documented as of this encounter
--- OUTSIDE RECORDS SUMMARY | 2024-06-22 18:01 | XMS_ITS | Encounter Summary ---
Author Organization [facility] Address [address] [place] [address] Care Team Providers Care Executive Admin Name Role Phone Agustin Mix Primary Care Provider + Encounter Details Date Type Department Care Team (Late st Contact Info) Description 12/30/2021 Orders Only [facility] Interventional Radiology [address] [place] [address] Avelino Otero DO 55 [place] [address] Social History Tobacco Use Types Packs/Day Years [...] Info) Description 08/01/2024 11:30 AM EDT Follow-Up [facility] Liver Transplant Services [address] [place] [address] Dylan Phelps MD [address] [place] [address] documented as of this encounter Visit Diagnoses Not on filedocumented in this encounter Care Teams Executive Admin Relationship Specialty Start Date End Date Agustin Mix 230 [place] [address] PCP - General Internal Medicine 04/15/17 documented as of this encounter
--- OUTSIDE RECORDS SUMMARY | 2024-06-22 18:01 | XMS_ITS | Encounter Summary ---
Author Organization [employer] Address [address] [place] [address] 7 [place] [address] Care Team Providers Care Career Professional Name Role Phone Agustin Marrero MD Primary Care Provide r Reason for Visit * Reason Onset Date Comments Error 05/12/2023 Encounter Details Date Type Department Care Team ([facility] st Contact Info) Description 05/12/2023 Telephone [facility] MEDICINE [address] [place], [place] [phone] Agustin Marrero MD [address] [place], [place] [phone] Error Social History Tobacco Use Types Packs/Day [...] 9:00 AM EST Clinical Support [facility] MEDICINE [address] [place] [address] Shwetha Collado, RN [address] [place] [address] 07/05/2024 10:00 AM EDT Office Visit [facility] MEDICINE [address] [place] [address] Agustin Marrero MD [address] [place] [address] 11/16/2024 10:00 AM EDT Office Visit [facility] ADULT DENTAL [address] [place] [address] Paco, Catherine [address] [place] [address] documented as of this encounter Visit Diagnoses Not on filedocumented in this encounter Care Teams Career Professional Relationship Specialty Start Date End Date Agustin Marrero MD [address] [place] [address] PCP - General Internal Medicine 01/25/14 [facility] 06/13/16 documented as of this encounter
--- OUTSIDE RECORDS SUMMARY | 2024-06-22 18:01 | XMS_ITS | Encounter Summary ---
Author Organization [employer] Address [address] [place] [address] 7t [place] [address] Care Team Providers Care Sweat Box Attendant Name Role Phone Agustin Marrero MD Primary Care Provide r Reason for Visit * Reason Onset Date Comments Med Refill 05/26/2023 Encounter Details Date Type Department Care Team ([facility] st Contact Info) Description 05/26/2023 Telephone [facility] MEDICINE [address] [place], [place] [phone] Agustin Marrero MD [address] [place] [address] Med Refill Social History Tobacco Use Types [...] LITE test strip To be sent to: [facility]/pharmacy #[address] [place] [address] documented in this encounter Plan of Treatment Upcoming Encounters Date Type Department Care Team (Late st Contact Info) Description 06/24/2024 9:00 AM EST Clinical Support [facility] MEDICINE [address] [place] [address] Shwetha Collado RN [address] [place] [address] 07/05/2024 10:00 AM EDT Office Visit [facility] MEDICINE [address] [place] [address] Agustin Marrero MD [address] [place] [address] 11/16/2024 10:00 AM EDT Office Visit [facility] ADULT DENTAL [address] [place] [address] PacoCatherine [address] [place] [address] documented as of this encounter Visit Diagnoses Not on filedocumented in this encounter Care Teams Sweat Box Attendant Relationship Specialty Start Date End Date Agustin Marrero MD [address] [place] [address] PCP - General Internal Medicine 01/25/14 [facility] 06/13/16 documented as of this encounter
--- OUTSIDE RECORDS SUMMARY | 2024-06-22 18:01 | XMS_ITS | Encounter Summary ---
Author Organization [employer] Address [address] [place] [address] 7t [place] [address] Care Team Providers Care Gear Hobber Operator Name Role Phone Agustin Marrero MD Primary Care Provide r Reason for Visit * Reason Comments Med Refill Encounter Details Date Type Department Care Team ([facility] st Contact Info) Description 05/13/2024 Refill [facility] MEDICINE [address] [place], [place] [phone] Agustin Marrero MD [address] [place] [address] Social History Tobacco Use Types Packs/Day Years [...] 9:00 AM EST Clinical Support [facility] MEDICINE [address] [place] [address] Shwetha Collado RN 505 [place] [address] 07/05/2024 10:00 AM EDT Office Visit [facility] MEDICINE [address] [place] [address] Agustin Marrero MD 230 [place] [address] 11/16/2024 10:00 AM EDT Office Visit [facility] ADULT DENTAL [address] [place] [address] Catherine Antonio [address] [place] [address] documented as of this encounter Visit Diagnoses Not on filedocumented in this encounter Additional Health Concerns Assessment Noted Time PHQ-9 Depression Total Score: 0 12/03/19 24 10:31 AM EDT documented as of this encounter Care Teams Gear Hobber Operator Relationship Specialty Start Date End Date gAustin Marrero MD [address] [place] [address] PCP - General Internal Medicine 01/25/14 [facility] 06/13/16 documented as of this encounter
--- OUTSIDE RECORDS SUMMARY | 2024-06-22 18:01 | XMS_ITS | Encounter Summary ---
Author Organization [employer] Address [address] [place] [address] 7t [place] [address] Care Team Providers Care Supervisor Food Checkers And Cashiers Name Role Phone Agustin Marrero MD Primary Care Provide r Reason for Visit * Reason Onset Date Comments Medication Question 05/11/2024 Encounter Details Date Type Department Care Team ([facility] st Contact Info) Description 05/11/2024 Telephone [facility] MEDICINE [address] [place], [place] [phone] Agustin Marrero MD [address] [place], [place] [phone] Medication Question Social History Tobacco Use Types [...] Dr Richardson's office on 05/11/2024. Note in [facility] EHR: Received call from Edward's [facility] nurse questioning if he still needs to be on Kayexelate 2x weekly. She states he has been out ofit for probably 1 month as he was under the impression the order was discontinued. Labs on 04/25 showK level within normal limits. Instructed her to have him repeat labs in early May to continue to monitor. Called [facility] pharmacy, spoke with Faiza who stated that pt last picked up Kayexalate on 08/13/2023, Rx was written by Dr Lenin Richardson for 30g 1x weekly as directed. Called [facility] Dr Richardson's office to confirm. Spoke with [...] Richardson's office and received same messageas above. Director Of Elementary Education advised Jessica to contact Dr Richardson with any questions regarding this med given that they prescribe it. Jessica stated she will be following up with their office in May once the pt gets their labs drawn. Advised her to call [facility] if any other questions or [...] leaving original prescriber contact information. Dr. Richardson [facility]. . If any questions for Jessica you can contact pt at [phone]. documented in this encounter Plan of Treatment Upcoming Encounters Date Type Department Care Team (Late st Contact Info) Description 06/24/2024 9:00 AM EST Clinical Support [facility] MEDICINE [address] [place] [address] Shwetha Collado RN 505 [place] [address] 07/05/2024 10:00 AM EDT Office Visit [facility] MEDICINE [address] [place] [address] Agustin Marrero MD [address] [place] [address] 11/16/2024 10:00 AM EDT Office Visit [facility] ADULT DENTAL [address] [place] [address] Catherine Antonio [address] [place] [address] documented as of this encounter Visit Diagnoses Not on filedocumented in this encounter Additional Health Concerns Assessment Noted Time PHQ-9 Depression Total Score: 0 12/03/19 10:31 AM EDT documented as of this encounter Care Teams Supervisor Food Checkers And Cashiers Relationship Specialty Start Date End Date Agustin Marrero MD [address] [place] [address] PCP - General Internal Medicine 01/25/14 [facility] 06/13/16 documented as of this encounter
--- OUTSIDE RECORDS SUMMARY | 2024-06-22 18:01 | XMS_ITS | Encounter Summary ---
Author Organization [facility] Address [address] [place] [address] Care Team Providers Care Refining Machine Operator Name Role Phone Agustin Mix Primary Care Provider + Encounter Details Date Type Department Care Team (Late st Contact Info) Description 02/29/2020 Orders Only [facility] Ultrasound [address] [place] [address] Sreedhar Sotelo MD [address] [place], [place] [phone] Social History Tobacco Use Types Packs/Day Years [...] Info) Description 08/01/2024 11:30 AM EDT Follow-Up [facility] Liver Transplant Services [address] [place] [address] Dylan Phelps MD [address] [place] [address] documented as of this encounter Visit Diagnoses Not on filedocumented in this encounter Additional Health Concerns Infection Onset Date Last Indicated Resolved Time COVID-19 - Suspected infection 03/05/2020 03/17/2020 03/17/2020 7:55 PM EST COVID-19 - Confirmed infection 05/01/2020 05/07/2020 06/01/2020 5:06 PM EST COVID-19 - Suspected infection 05/10/2020 05/10/2020 05/24/2020 10:34 PM EST documented as of this encounter Care Teams Refining Machine Operator Relationship Specialty Start Date End Date Agustin Mix [address] [place] [address] PCP - General Internal Medicine 04/15/17 documented as of this encounter
== END 2024-06-22 15:21 | disposition home or self-care (01) ==
LOC: HO.HUSH 14:52
PROVIDERS: PCP Internal Medicine; Visit Provider Urology
DX: N52.01 Erectile dysfunction due to arterial insufficiency (principal)
CPT/HCPCS: 99213

== ENCOUNTER → 2024-06-22 14:52 | Outpatient (BNVA) | payer OTHER, SELFPAY | PROVIDERS: PCP Internal Medicine; Visit Provider Urology | DX: N52.01 Erectile dysfunction due to arterial insufficiency (principal); Z96.0 Presence of urogenital implants | CPT/HCPCS: 99212 ==

== ENCOUNTER 2024-07-20 08:07 | Outpatient (REF) | payer OTHER, SELFPAY ==
--- OUTSIDE RECORDS SUMMARY | 2024-07-20 08:18 | XMS_ITS | Clinical Summary ---
Author Organization [employer] Address [address] [place] [address] [address] [place] [address] Care Team Providers Care Irrigation Equipment Mechanic Name Role Phone Agustin Marrero MD Primary Care Provide r Allergies No known active allergies Medications NovoLOG FLEXPEN 100 UNIT/ML penIndications:Ty pe 2 diabetes mellitus without complication, with long-term current use of insulin ([facility]) Use Insulin as per sliding scale TID (BG 150-200mg/dL: 10 units, 201-250 : 12 units, 251-300: 14 units, 301-350: 16 units, 351-400 18 units, >400 20 units 15 mL Active Blood Glucose Monitoring Suppl (Screen TonicStyle [place] Lite) w/Device kit TEST 1 TIMES BY INTRADERMAL ROUTE EVERY DAY Active Continuous Blood Gluc Terminal Superintendent (FreeStyle [place] 2 [place]) device Active ferrous sulfate 325 (65 Fe) [...] complication, with long-term current use of insulin ([facility]) USE 1 EACH DIRECTED THREE TIMES [...] complication, with long-term current use of insulin ([facility]) USE DIRECTED EVERY 14 DAYS 2 each 2 Active tacrolimus (Prograf) 1 MG capsule Take 1 capsules (1mg) in the morning and 1 capsule (1mg) in the evening 180 capsule Active Gvoke HypoPen 2-Pack 0.5 MG/0.1ML injection PLEASE SEE ATTACHED FOR DETAILED DIRECTIONS 09/16/2 024 Active cholecalciferol (Vitamin D3) 25 MCG (1000 UT) tabletIndications :Type 2 diabetes mellitus without complication, with long-term current use of insulin ([facility]) TAKE 1 TABLET BY MOUTH EVERY DAY 90 tablet 1 024 Active FREESTYLE LITE test stripIndications: Type 2 diabetes mellitus without complications (CMS/HCC) USE TO TEST 3 TIMES DAILY 300 strip 3 024 Active Multiple Vitamin (Daily-Stacy Multivitamin) tablet Take 1 tablet by mouth every day 90 tablet 3 025 Active gabapentin (Neurontin) 300 MG capsuleIndication s:Chronic midline low back pain without sciatica TAKE 1 CAPSULE BY MOUTH TWICE A DAY 60 capsule 025 Active sildenafil (Viagra) 100 MG tablet TAKE 1 TABLET 1 HOUR BEFORE SEXUAL RELATIONS ONCE DAILY NEEDED. 12 tablet 4 025 Active omeprazole (PriLOSEC) [address] capsuleIndication s:Gastroesophagea l reflux disease, unspecified whether esophagitis present TOME 1 CAPSULA POR VIA ORAL TODOS [place] QUINONES BEFORE A MEAL 90 capsule 1 025 Active traMADol (Ultram) 50 MG tabletIndications [...] CUANDO SEA NECESARIO 30 tablet 025 Active omeprazole (PriLOSEC) [address] capsuleIndication s:Gastroesophagea l reflux disease, unspecified whether esophagitis present TOME 1 CAPSULA POR VIA ORAL TODOS [place] QU[place]ON[place] BEFORE A MEAL 90 capsule 1 024 2024 Discontinued sildenafil (Viagra) 100 MG tablet TAKE 1 TABLET 1 HOUR BEFORE SEXUAL RELATIONS ONCE DAILY NEEDED. 12 tablet 4 024 2024 Discontinued traMADol (Ultram) 50 MG [...] Active Problems Problem Noted Date Diagnosed Date Preventative health care 07/05/2024 Assessment & Plan (07/05/2024 10:17 AM EDT): PSA 04/06/2024 Normal Colonoscopy:04/25/2014 Dr Diaz showed a tubular adenoma Repeat 06/28/2021 showed polyps. Pt tells me he has scheduled a repeat in October 2024 Vaccines: TDAP 09/15/2013 Elevated serum creatinine 04/05/2024 Assessment & Plan (04/05/2024 9:15 AM EST): Pt seen in the ER back in august 2023 Scr was elevated at 1.91 Plan: repeat BMP Long-term current use of opiate analgesic 2023 Overview (03/29/2024): Medication: Tramadol 50mg Q8H PRN Indication: chronic midline low back pain without sciatica Last PHARMACEUTICAL BOTANIST Agreement: 09/01/23 Normal oral exam 12/17/2023 Class 1 obesity due to exces s calories with serious comorbidity and body mass index (BMI) of 32.0 to 32.9 in adult 06/16/2023 Assessment & Plan (07/05/2024 10:07 AM EDT): Patient has been counseled and educated about diet and exercise. Personal goal of weight loss discussedPatient has comorbidity of: DM Dietary Recommendations: Fruits, vegetables, whole grains, protein foods, and fat-free or low-fat dairy products are healthy choices. Eat different types of protein foods in your diet. This can include seafood, lean meats, poultry, beans, peas, lentils, nuts, seeds, soy products, and eggs. Limit foods and beverages higher in added sugars, saturated fat, and sodium. Exercise Recommendations: At least 150 minutes of moderate-intensity physical activity per week, or an equivalent combination of moderate- and vigorous-intensity activity Assessment & Plan (06/16/2023 9:30 AM EST): [...] for mildly dilated CBD. ERCP 11/21/2022 at [facility] showed single severe biliary stricture found in [...] CBD. 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 The stricture was post-surgical. A biliary sphinterotomy was performed. A temporary stent was placed in the CBP They recommended to repeat ERCP in 3 months to remove stent. Pt is already scheduled for 02/20/2023 for ENDOSCOPIC RETROGRADE CHOLANGIOPANCREATOGRAPHY WITH REMOVAL OF FOREIGN BODY(S)/STENT(S)/PANCREATIC DUCT(S) WITH POSSIBLE MODERATE SEDATION [16173 (CPT??)] Partial edentulism 01/14/2023 Hospital discharge follow-up [...] CBD. Pt is s/p ERCP 11/21/2022 at [facility] Impression: A single severe biliary stricture found [...] local wound injections. He was seen by editorial specialist at [facility] who discussed that he needed someone that [...] local wound injections. He was seen by editorial specialist at [facility] who discussed that he needed someone that [...] male erectile dysfunction 04/22/2022 Assessment & Plan (07/05/2024 9:59 AM EDT): Evaluated by Urology, s/p penile prosthetic. Last seen 06/2024 Assessment & Plan (04/05/2024 9:03 AM EST): [...] was refer to the Pain Clinic at [facility] he has an appointment for 08/03/2022. He [...] 02/2021 Essential hypertension 04/21/2022 Assessment & Plan (07/05/2024 10:02 AM EDT): Patient with Hypertension BP controlled. Most recent electrolytes, Bun and Creatinine done on: Lab Results Component Value Date NA 137 04/06/2024 NA 137 09/12/2023 K 4.5 04/06/2024 K 4.7 09/12/2023 CL 106 04/06/2024 CL 103 09/12/2023 BUN 16 04/06/2024 BUN 32 (H) 09/12/2023 CREATININE 1.02 04/06/2024 CREATININE 1.91 (H) 09/12/2023 were within normal limits. Plan: Pt no longer on Losartan. BP normal, will continue to monitor patient advised to adhere to a low sodium diet, encouraged about medication compliance, counseled about weight loss. Assessment & Plan (11/27/2022 2:12 PM EDT): [...] effusion 04/21/2022 Immunosuppression 08/11/2019 Assessment & Plan (07/05/2024 10:06 AM EDT): S/p liver transplant On Tacrolimus as per Liver clinic Assessment & Plan (06/16/2023 9:44 AM EST): [...] diabetes mellitus without complication Assessment & Plan (07/05/2024 10:08 AM EDT): Pt is here for a f/u regarding his DM Patient is on a regimen of : Lantus 24 units at hs and Novolog flex pen using sliding scale TID (BG 150-200mg/dL: 10 units, 201-250 : 12 units, 251-300: 14 units, 301-350: 16 units, 351-400 18 units, >400 20 units He was discharged from [facility] diabetes clinic due to non compliance. He isunder the care of [facility] Endocrinology given that he is a liver transplant patient, last seen 2024. Hgb A1c 07/05/2024: 7.2 from 7 Eye exam ordered previous visit Microalbumin 04/06/2024 was 68 Foot check risk of zero Pt advised to: adhere to diabetic diet Previous visit pt was referred to [facility] and [facility] Plan: continue current regimen Pt tells me he has a follow up with Endocrinology check your blood sugars regularly check your feet on a daily basis f/u with me in 4 months Assessment & Plan (04/05/2024 9:13 AM EST): Pt is here for a f/u regarding his DM Patient is on a regimen of : Lantus 24 units at hs and Novolog flex pen using sliding scale TID (BG 150-200mg/dL: 10 units, 201-250 : 12 units, 251-300: 14 units, 301-350: 16 units, 351-400 18 units, >400 20 units He was discharged from [facility] diabetes clinic due to non compliance. He isunder the care of [facility] Endocrinology given that he is a liver transplant patient, last seen 2024. Hgb A1c 04/05/2024: 7 from 7.4 Eye exam ordered previous visit Microalbumin 11/01/2020 was 43 , ordered today Foot check risk of zero Pt advised to: adhere to diabetic diet Previous visit pt was referred to [facility] and [facility] Plan: continue current regimen Pt [...] >400 20 units He was discharged from [facility] diabetes clinic due to non compliance. He isunder the care of [facility] Endocrinology given that he is a liver transplant patient, last seen 04/21/2023. Hgb A1c 12/03/2023: 7.4 from 7.1 Eye exam ordered previous visit Microalbumin 11/01/2020 was 43 Foot check risk of zero Pt advised to: adhere to diabetic diet Previous visit pt was referred to [facility] and [facility] Plan: continue current regimen Pt [...] >400 20 units He was discharged from [facility] diabetes clinic due to non compliance. He isunder the care of [facility] Endocrinology given that he is a liver transplant patient, last seen 04/21/2023. Hgb A1c 06/16/2023: 7.1 Eye exam ordered previous visit Microalbumin 11/01/2020 was 43 Foot check risk of zero Pt advised to: adhere to diabetic diet Previous visit pt was referred to [facility] and [facility] Plan: continue current regimen Pt [...] >400 20 units He was discharged from [facility] diabetes clinic due to non compliance. He is supposed to be under the care of [facility] Endocrinology given that he is a liver transplant patient, last seen 08/01/2021. He had an appointment scheduled in August but he no showed. Today he tells me he will stay at [facility] Hgb A1c 02/12/2023 was 6.7 Eye exam ordered previous visit Microalbumin 11/01/2020 was 43 Foot check risk of zero Pt advised to: adhere to diabetic diet Previous visit pt was referred to [facility] and [facility] Plan: continue current regimen Pt [...] >400 20 units He was discharged from [facility] diabetes clinic due to non compliance. He is supposed to be under the care of [facility] Endocrinology given that he is a liver transplant patient, last seen 08/01/2021. He had an appointment scheduled in August but he no showed. Today he tells me he will stay at [facility] Hgb A1c 09/02/2021 was 6.5 Eye exam ordered previous visit Microalbumin 11/01/2020 was 43 Foot check risk of zero Pt advised to: adhere to diabetic diet Previous visit pt was referred to [facility] and [facility] Plan: continue current regimen check [...] >400 20 units He was discharged from [facility] diabetes clinic due to non compliance He is now under the care of [facility] Endocrinology given that he is a liver transplant patient, last seen 08/01/2021 Hgb A1c 09/02/2021 was 6.5 Eye exam ordered previous visit Microalbumin 11/01/2020 was 43 Foot check risk of zero Pt advised to: adhere to diabetic diet Previous visit pt was referred to [facility] and [facility] Plan: continue current regimen check [...] >400 20 units He was discharged from [facility] diabetes clinic due to non compliance He is now under the care of [facility] Endocrinology given that he is a liver transplant patient, last seen 08/01/2021 Hgb A1c 04/22/2021 was 6.2 Eye exam ordered previous visit Microalbumin 11/01/2020 was 43 Foot check risk of zero Pt advised to: adhere to diabetic diet Previous visit pt was referred to [facility] and [facility] Plan: continue current regimen check your blood sugars regularly check your feet on a daily basis f/u with me in 3 months Gynecomastia 03/02/2018 Assessment & Plan (07/05/2024 10:14 AM EDT): Pt with hx of liver dx s/p liver transplant. 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 Most recent lipid profile from: Lab Results Component Value Date TRIG 109 04/06/2024 CHOL 177 04/06/2024 LDLCHOLCAL 115 (H) 04/06/2024 HDL 41 04/06/2024 Currently not on a regimen given Hx of persistent elevation of LFTs advised to try to adhere to a low cholesterol diet, counseled and educated about diet and exercise, Patient encouraged to come up with a personal goal for weight loss. Assessment & Plan (04/22/2022 8:23 AM EST): [...] Encounters Date Type Department Care Team Description 07/05/2024 10:00 AM EDT Office Visit [address] [address] Agustin Marrero MD Other male erectile dysfunction (Primary Dx); Type 2 diabetes mellitus without complication, with long-term current use of insulin ([facility]); Essential hypertension; Pure hypercholesterolemia; S/P liver transplant ([facility]); Immunosuppression ([facility]); Class 1 obesity due to excess calories with serious comorbidity and body mass index (BMI) of 32.0 to 32.9 in adult; Dietary counseling; Exercise counseling; Gynecomastia; Preventative health care; Chronic midline low back pain without sciatica; Primary insomnia 07/05/2024 Travel 07/02/2024 Refill [facility] [place] [address] Agustin Marrero MD Gastroesophageal reflux disease, unspecified whether esophagitis present 06/29/2024 Telephone [facility] [place] [address] Agustin Marrero MD Chart Prep 06/24/2024 9:00 AM EST Clinical Support [address] [place] [address] Shwetha Collado RN Long-term current use of opiate analgesic 06/24/2024 Telephone [facility] [address] [place] [address] Shwetha Collado RN 06/24/2024 Travel 06/20/2024 Refill [facility] [address] [facility] [place], [place] [address] Agustin Marrero MD 06/16/2024 Refill [facility] [address] [facility] [place] [address] Agustin Marrero MD Chronic midline low back pain without sciatica 06/07/2024 Travel 06/07/2024 Refill [facility] [address] [facility] [place] [address] Agustin Marrero MD Primary insomnia 06/07/2024 Refill [facility] [address] [facility] [place] [address] Agustin Marrero MD Chronic midline low back pain without sciatica 05/31/2024 9:00 AM EST Clinical Support [facility] [address] [facility] [place] [address] Patricia Harrell RN Chronic midline low back pain without sciatica (Primary Dx) 05/31/2024 Travel 05/17/2024 10:00 AM EST Office Visit [facility] [address] [facility] [place] [address] Lorraine Polk Dental plaque (Primary Dx); Dental calculus; Partial edentulism, unspecified edentulism class 05/13/2024 Refill [facility] [address] [facility] [place] [address] Agustin Marrero MD 05/11/2024 Telephone [facility] [address] [facility] [place] [address] Agustin Marrero MD Medication Question 05/05/2024 Refill [facility] [address] [facility] [place] [address] Agustin Marrero MD 05/03/2024 Refill [facility] [address] [facility] [place] [address] Agustin Marrero MD Primary insomnia 05/03/2024 Refill [facility] [address] [place] [address] Agustin Marrero MD Chronic midline low back pain without sciatica 04/25/2024 Refill [facility] [address] [place] [address] Natasha Wall MD Chronic midline low back [...] Years Used Date Smoking Tobacco: Former Cigarettes Q uit: 07/05/2009 Passive Smoke Exposure: Past Smokeless Tobacco: Never [...] Sign Reading Time Taken Comments Blood Pressure 138/82 07/05/2024 10:15 AM EDT Pulse 60 07/05/2024 9:50 AM EDT Temperature 35.6 ??C (96 ??F) 07/05/2024 9:50 AM EDT Respiratory Rate 20 07/05/2024 9:50 AM EDT Oxygen Saturation 98% 07/05/2024 9:50 AM EDT Inhaled Oxygen Concentration - - Weight 92.9 kg (204 lb 12.8 oz) 07/05/2024 9:50 AM EDT Height 170.2 cm (5' 7 ) 07/05/2024 9:50 AM EDT Body Mass Index 32.08 07/05/2024 9:50 AM EDT Plan of Treatment Upcoming Encounters Date Type Department Care Team (Late st Contact Info) Description 08/26/2024 9:00 AM EDT Clinical Support [facility] [address] [place] [address] Shwetha Collado, KATALINA [address] [place] [address] 11/16/2024 10:00 AM EDT Office Visit [facility] [address] [place] [address] Matty Antonioaris [address] [place] [address] Health Maintenance Due Date Last Done Comments [...] Colonoscopy 06/28/2024 06/28/2021 Colorectal Cancer Screening 06/28/2024 Eye Exam 09/22/2024 09/22/2022, 06/0 08/2022, 09/22/2022, Additional history exists Diabetes: Hemoglobin A1C 10/05/202407/05/2 025, 04/05/2024, 12/03/2023, Additional history exists Dental X-Ray: Bitewings 10/13/2024 10/13/2023, 05/15 Dental Oral Exam 11/15/2024 05/17/2024, , 05/15/2022 Dental Prophylaxis 11/15/2024 05/17/2024, 0 10/13/2023, 01/14/2023, Additional history exists Depression Screening 12/02/2024 12/03/2023, 12/03/19 24 Alcohol/Substance Use Screening 04/05/2025 04/05/2024 Diabetes: Urine Protein Screening 04/06/2025 04/06/2024, 01/10/2022, 05/17/2021, Additional history exists Lipid Panel 04/06/2025 04/06/2024, 12/20, 11/01/2020 Tobacco Screening 07/05/2025 07/05/2024 Hepatitis A Vaccines Completed 07/14/2017, 12/03/19 Hepatitis [...] Name Priority Date/Time Associated Diagnosis Comments POCT GLYCATED HEMOGLOBIN, TOTAL Routine 07/05/2024 10:03 AM EDT Type 2 diabetes mellitus without complication, with long-term current use of insulin ([facility]) POCT GLUCOSE Routine 07/05/2024 10:03 AM EDT Type 2 diabetes mellitus without complication, with long-term current use of insulin ([facility]) POCT ZOË-14 URINE DRUG SCREEN Routine 06/24/2024 9:18 AM EST Long-term current use of opiate analgesic POCT ZOË-14 URINE DRUG SCREEN Routine 05/31/2024 [...] 10:00 AM EST Dental plaque Dental calculus ALBUMIN, RANDOM URINE W/CREATININE Routine 04/06/2024 8:10 AM EST Type 2 diabetes mellitus without complication, with long-term current use of insulin ([facility]) LIPID PANEL, STANDARD Routine 04/06/2024 8:10 AM EST Type 2 diabetes mellitus without complication, with long-term current use of insulin ([facility]) BITEWINGS - 4 RADIOGRAPHIC IMAGES Routine 10/13/2023 11:00 AM EDT HM COLONOSCOPY Routine 06/28/2021 from Last 3 Months or Most Recently Relevant to Health Maintenance Results * (ABNORMAL) POCT HGB A1C (07/05/2024 10:03 AM EDT) Hemoglobin A1C 7.2(A) 4.0 - 6.0 % QC Media Lot # [id number] Lot# Expiration Date , Blood 07/05/2024 10:0 3 AM EDT us Agustin Connelly MD POINT OF CARE TEST EN TER/EDIT ORDERABLES Final Result * POCT Glucose (07/05/2024 10:03 AM EDT) Glucose Blood, POC 170 60 - 200 mg/dL QC Media Lot # [id number] Lot# Expiration Date ,025 Blood Capillary blood specimen / Unknown 07/05/2024 10:03 AM EDT us Agustin Connelly MD POINT OF CARE TEST EN TER/EDIT ORDERABLES Final Result * POCT ZOË-14 Urine Drug Screen (06/24/2024 9:18 AM EST) Only the most recent of2 resultswithin the time period is included. Urine Urine specimen obtained by clean catch procedure / Unknown 06/24/2024 9:18 AM EST Narrative Shwetha Collado RN - 06/24/2024 9:18 AM EST .UTOX cup Lot#[id number] Exp. 12/07/25 Internal Pass Control negative AMP, BAR, BUP, BZO, KRISTEL, FTY, MDMA, MET, MOP, MTD, OXY, PCP, TCA, THC. Agustin Connelly MD POINT OF CARE TEST ENTER/EDIT ORDERABLES Edited Result - Final * (ABNORMAL) Albumin, Random Urine W/Creatinine (04/06/2024 8:10 AM EST) Creatinine, Urine 216.22 mg/dL [facility] Microalbumin Urine 68.0 mg/L H [facility] Microalbum Creatinine Ratio Ur 31.4(H) <30 ug/mg cr [facility] Comment:Albumin/Creatinine R atio Reference Ranges: Normal: < 30 ug/mg creatinine Microalbuminuria: 30 - 300 ug/mg creatinineClinical Albuminuria: > 300 ug/mg creatinine Urine (Urine, Random) 04/06/2024 8:10 AM EST 04/06/2024 11:40 AM EST Agustin Connelly MD LAB URINE ORDERABLES Final Result [facility] [address] [place] [address] [phone] * (ABNORMAL) Lipid Panel, Standard (04/06/2024 8:10 AM EST) Triglycerides 109 <150 mg/dL [facility] Comment:Desirable Triglyceri de: less than 150 mg/dLBorderline High Triglyceride 150-199 mg/dLHigh Triglyceride: 200-499 mg/dLVery High Triglyceride: greater than or equal to 5OO mg/dL Cholesterol 177 <200 mg/dL [facility] Comment:Desirable Cholestero l: less than 200 mg/dLBorderline High Cholesterol: 200-239 mg/dLHigh Cholesterol: greater than 239 mg/dL LDL Cholesterol Calculated 115(H) <100 mg/dL [facility] Comment:Desirable LDL: less than 100 mg/dLNear Optimal/Above Optimal LDL: 110- 129 mg/dLBorderline High LDL: 130-159 mg/dLHigh LDL: 160-189 mg/dLVery High LDL: greater than or equal to 190 mg/dL HDL Cholesterol 41 >40 mg/dL [facility] Comment:Desirable HDL: great er than 40 mg/dL Note: This HDL assay may give artificially low results in patients with liver disease. Blood Venous blood specimen / Unknown 04/06/2024 8:10 AM EST 04/06/2024 11:51 AM EST Agustin Connelly MD LAB BLOOD ORDERABLES Final Result [facility] [address], [place] [id number] [phone] * Colonoscopy (06/28/2021) Colonoscopy Normal Normal 06/28/2021 Narrative Shanel Bo - 06/28/2021 9:58 AM EST Recommended 3 year follow up per GI notes ( [facility] ) Historical Provider HEALTH MAINTENANCE Edited Result - Final from Last 3 Months or Most Recently Relevant to Health Maintenance Insurance [address] [place] [address] [facility] Care Teams Irrigation Equipment Mechanic Relationship Specialty Start Date End Date Agustin Marrero MD [address] [place] [address] [place] [id number] PCP - General Internal Medicine 01/25/14 [facility] 06/13/16
--- OUTSIDE RECORDS SUMMARY | 2024-07-20 08:18 | XMS_ITS | Encounter Summary ---
Author Organization [employer] Address [address] [place] [address] 7t [place] [address] Care Team Providers Care Wood Box Maker Name Role Phone Agustin Marrero MD Primary Care Provide r Reason for Visit * Reason Comments Med Refill Encounter Details Date Type Department Care Team ([facility] st Contact Info) Description 12/24/2023 Refill [facility] MEDICINE [address] [place], [place] [phone] Agustin Marrero MD 230 [place] [address] Chronic midline low back pain without sciatica [...] Description 08/26/2024 9:00 AM EDT Clinical Support [facility] MEDICINE [address] [place] [address] Shwetha Collado, RN [address] [place] [address] 11/16/2024 10:00 AM EDT Office Visit [facility] ADULT DENTAL [address] [place] [address] Paco, Catherine [address] [place] [address] documented as of this encounter Visit Diagnoses Diagnosis Chronic midline low back pain without sciatica documented in this encounter Additional Health Concerns Assessment Noted Time PHQ-9 Depression Total Score: 0 12/03/19 10:31 AM EDT documented as of this encounter Care Teams Wood Box Maker Relationship Specialty Start Date End Date Agustin Marrero MD [address] [place] [address] PCP - General Internal Medicine 01/25/14 [facility] 06/13/16 documented as of this encounter
--- OUTSIDE RECORDS SUMMARY | 2024-07-20 08:18 | XMS_ITS | Encounter Summary ---
Author Organization [facility] Address [address] [place] [address] Care Team Providers Care Election Clerk Name Role Phone Agustin Mix Primary Care Provider + Encounter Details Date Type Department Care Team (Late st Contact Info) Description 01/01/2021 Orders Only [facility] Nuclear Medicine [address] [place] [address] Sreedhar Sotelo MD [address] [place], [place] [phone] Social History Tobacco Use Types Packs/Day Years [...] Info) Description 08/01/2024 11:30 AM EDT Follow-Up [facility] Liver Transplant Services [address] [place] [address] Dylan Phelps MD [address] [place] [address] documented as of this encounter Visit Diagnoses Not on filedocumented in this encounter Care Teams Election Clerk Relationship Specialty Start Date End Date Agustin Mix 230 [place] [address] PCP - General Internal Medicine 04/15/17 documented as of this encounter
--- OUTSIDE RECORDS SUMMARY | 2024-07-20 08:18 | XMS_ITS | Encounter Summary ---
Author Organization [employer] Address [address] [place] [address] 7t [place] [address] Care Team Providers Care Surgical Instrument Repair Specialist Name Role Phone Agustin Marrero MD Primary Care Provide r Reason for Visit * Reason Comments Med Refill Encounter Details Date Type Department Care Team ([facility] st Contact Info) Description 10/20/2023 Refill [facility] CHC MED & PEDS [address] [place], [place] [phone] Agustin Marrero MD [address] [place] [address] Chronic midline low back pain without sciatica [...] 9:00 AM EDT Clinical Support [facility] MEDICINE [address] [place] [address] Shwetha Collado RN 505 [place] [address] 11/16/2024 10:00 AM EDT Office Visit [facility] ADULT DENTAL [address] [place] [address] Matty Antonioaris [address] [place] [address] documented as of this encounter Visit Diagnoses Diagnosis Chronic midline low back pain without sciatica documented in this encounter Additional Health Concerns Assessment Noted Time PHQ-9 Depression Total Score: 5 06/16/19 24 9:35 AM EST documented as of this encounter Care Teams Surgical Instrument Repair Specialist Relationship Specialty Start Date End Date Agustin Marrero MD 230 [place] [address] PCP - General Internal Medicine 01/25/14 [facility] 06/13/16 documented as of this encounter
--- OUTSIDE RECORDS SUMMARY | 2024-07-20 08:18 | XMS_ITS | Encounter Summary ---
Author Organization [employer] Address [address] [place] [address] 7t [place] [address] Care Team Providers Care Embedded Systems Software Developer Name Role Phone Agustin Marrero MD Primary Care Provide r Reason for Visit * Reason Comments Med Refill Encounter Details Date Type Department Care Team ([facility] st Contact Info) Description 2024 Refill [facility] MEDICINE [address] [place], [place] [phone] Agustin Marrero MD [address] [place] [address] Social History Tobacco Use Types Packs/Day Years [...] Description 08/26/2024 9:00 AM EDT Clinical Support [facility] MEDICINE [address] [place] [address] Shwetha Collado, KATALINA [address] [place] [address] 11/16/2024 10:00 AM EDT Office Visit [facility] ADULT DENTAL [address] [place] [address] Paco, Catherine [address] [place] [address] documented as of this encounter Visit Diagnoses Not on filedocumented in this encounter Additional Health Concerns Assessment Noted Time PHQ-9 Depression Total Score: 0 12/03/19 24 10:31 AM EDT documented as of this encounter Care Teams Embedded Systems Software Developer Relationship Specialty Start Date End Date Agustin Marrero MD [address] [place] [address] PCP - General Internal Medicine 01/25/14 [facility] 06/13/16 documented as of this encounter
--- OUTSIDE RECORDS SUMMARY | 2024-07-20 08:18 | XMS_ITS | Encounter Summary ---
Author Organization [employer] Address [address] [place] [address] 7t [place] [address] Care Team Providers Care Strand Forming Machine Operator Name Role Phone Agustin Marrero MD Primary Care Provide r Reason for Visit * Reason Comments Med Refill Encounter Details Date Type Department Care Team ([facility] st Contact Info) Description 10/28/2023 Refill [facility] MEDICINE [address] [place], [place] [phone] Lela Wu MD [address] [place], [place] [phone] Primary insomnia Social History Tobacco Use Types [...] Description 08/26/2024 9:00 AM EDT Clinical Support [facility] MEDICINE [address] [place] [address] Shwetha Collado RN [address] [place] [address] 11/16/2024 10:00 AM EDT Office Visit [facility] ADULT DENTAL [address] [place] [address] Paco, Catherine [address] [place] [address] documented as of this encounter Visit Diagnoses Diagnosis Primary insomnia Persistent disorder of initiating or maintaining sleep documented in this encounter Additional Health Concerns Assessment Noted Time PHQ-9 Depression Total Score: 5 06/16/19 24 9:35 AM EST documented as of this encounter Care Teams Strand Forming Machine Operator Relationship Specialty Start Date End Date Agustin Marrero MD [address] [place] [address] PCP - General Internal Medicine 01/25/14 [facility] 06/13/16 documented as of this encounter
--- OUTSIDE RECORDS SUMMARY | 2024-07-20 08:18 | XMS_ITS | Encounter Summary ---
Author Organization [employer] Address [address] [facility] 7t [place] [address] Care Team Providers Care Sales Representative Facility Services Name Role Phone Agustin Marrero MD Primary Care Provide r Encounter Details Date Type Department Care Team (Late st Contact Info) Description 12/24/2023 Telephone [facility] MEDICINE [address] [place], [place] [phone] Agustin Marrero MD 230 [place], [place] [phone] Social History Tobacco Use Types Packs/Day Years [...] Description 08/26/2024 9:00 AM EDT Clinical Support [facility] MEDICINE [address] [place] [address] Shwetha Collado, KATALINA 505 [place] [address] 11/16/2024 10:00 AM EDT Office Visit [facility] ADULT DENTAL [address] [place] [address] Paco, Catherine 230 [place] [address] documented as of this encounter Visit Diagnoses Not on filedocumented in this encounter Additional Health Concerns Assessment Noted Time PHQ-9 Depression Total Score: 0 12/03/19 10:31 AM EDT documented as of this encounter Care Teams Sales Representative Facility Services Relationship Specialty Start Date End Date Agustin Marrero MD [address] [place] [address] PCP - General Internal Medicine 01/25/14 [facility] 06/13/16 documented as of this encounter
--- OUTSIDE RECORDS SUMMARY | 2024-07-20 08:18 | XMS_ITS | Encounter Summary ---
Author Organization [employer] Address [address] [place] [address] 7t [place] [address] Care Team Providers Care Contract Negotiation Specialist Name Role Phone Agustin Marrero MD Primary Care Provide r Reason for Visit * Reason Onset Date Comments Med Refill 03/01/2024 Encounter Details Date Type Department Care Team ([facility] st Contact Info) Description 03/01/2024 Telephone [facility] MEDICINE [address] [place], [place] [phone] Agustin Marrero MD 230 [place] [address] Med Refill Social History Tobacco Use Types [...] 2:22 PM EST Medication was sent to [facility][id number] on 02/29/24. * Telephone Encounter - Manjeet Mclaughlin - 03/01/2024 2:17 PM EST TC from pt requesting medication refill. Medications needing refill : 1- zolpidem (Ambien) 10 MG tablet To be sent to: [facility]/pharmacy #[id number] documented in this encounter Plan of Treatment Upcoming Encounters Date Type Department Care Team (Late st Contact Info) Description 08/26/2024 9:00 AM EDT Clinical Support [facility] MEDICINE [address] [place] [address] Shwetha Collado RN [address] [place] [address] 11/16/2024 10:00 AM EDT Office Visit [facility] ADULT DENTAL [address] [place] [address] Catherine Antonio [address] [place] [address] documented as of this encounter Visit Diagnoses Not on filedocumented in this encounter Additional Health Concerns Assessment Noted Time PHQ-9 Depression Total Score: 0 12/03/19 24 10:31 AM EDT documented as of this encounter Care Teams Contract Negotiation Specialist Relationship Specialty Start Date End Date Agustin Marrero MD [address] [place] [address] PCP - General Internal Medicine 01/25/14 [facility] 06/13/16 documented as of this encounter
--- OUTSIDE RECORDS SUMMARY | 2024-07-20 08:18 | XMS_ITS ---
[facility] [place] Address [address] [facility] [place] [address] Care Team Providers Care Brand Strategist Name Role Phone Nura Connelly MD, Agustin Primary Care Provide r Unavailable Yovanny Long Unavailable [phone] REASON FOR VISIT last visit pcp 12/31/23, [...] Orally Once a day Active Vitamin D3 283519 UNIT/GM as directed Active Losartan Potassium 25 [...] nsmoker Encounters Encounter Location Date Provider Diagnosis [facility] [address] [place] [address] 05/26/2024 Yovanny Long Onychomycosis B35.1 ; Pain [...] Kenney Silver kenney, 08/29/2024 11:00:00 AM, [address] [facility], [place], [address], Procedure Notes * Category Sub-Category Detail Notes [...] use of a nail nipper and/or dremel-type jewel grinder, to a more viable healthy nail [...] to maintain effectiveness in symptomatic relief - 48734 Progress Notes * Edward JONDOB:[birth year] (59 yo M)Acc No.[id number]:05/26/2024 Progress Note Patient:?Salome JON Provider:?Yovanny Long D.P.M. :1965???Age:59 Y???Sex:Male New e:05/26/2024 Address:[address] [place], [place] [address] Pcp:Agustin Connelly MD Subjective: * Chief Complaints: [...] as directed Orally , Taking Vitamin D3 096986 UNIT/GM Powder as directed , Taking Losartan [...] use of a nail nipper and/or dremel-type jewel grinder, to a more viable healthy nail [...] to maintain effectiveness in symptomatic relief - 83587.? * Procedure Codes:?25040 DEBRI YURIY NAIL, 6 OR MORE * Follow Up:?2 Months * Images: * The named appointment provid er may or may not be the originator of this progress note, and it is not deemed complete until electronically signed by the appointment provider. Sign off status: Pending * Provider:?Yovanny Long D.P.M. Date:?09/2024 Generated for Francisco reagan/Eloina/eTransmitting on:?07/20/2024 08:18 AM EDT History and Physical Notes * [...]
--- OUTSIDE RECORDS SUMMARY | 2024-07-20 08:18 | XMS_ITS | Encounter Summary ---
Author Organization [facility] Address [address] [place] [address] Care Team Providers Care Waitangi Tribunal Member Name Role Phone Agustin Mix Primary Care Provider + Encounter Details Date Type Department Care Team (Late st Contact Info) Description 01/13/2020 Orders Only [facility] 2 Rad ACT 1 [address] [place] [address] Pawel Sanchez MD [address] [place] [address] Social History Tobacco Use Types Packs/Day Years [...] Info) Description 08/01/2024 11:30 AM EDT Follow-Up [facility] Liver Transplant Services [address] [place], [place] [phone] Dylan Phelps MD [address] [place] [address] documented as of this encounter Visit Diagnoses Not on filedocumented in this encounter Additional Health Concerns Infection Onset Date Last Indicated Resolved Time COVID-19 - Suspected infection 03/05/2020 03/17/2020 03/17/2020 7:55 PM EST COVID-19 - Confirmed infection 05/01/2020 05/07/2020 06/01/2020 5:06 PM EST COVID-19 - Suspected infection 05/10/2020 05/10/2020 05/24/2020 10:34 PM EST documented as of this encounter Care Teams Wait[place] Tribunal Member Relationship Specialty Start Date End Date Agustin Mix [address] [place] [address] PCP - General Internal Medicine 04/15/17 documented as of this encounter
--- OUTSIDE RECORDS SUMMARY | 2024-07-20 08:18 | XMS_ITS | Encounter Summary ---
Author Organization [employer] Address [address] [place] [address] 7t [place] [address] Care Team Providers Care Farmer General Name Role Phone Agustin Marrero MD Primary Care Provide r Reason for Visit * Reason Onset Date Comments Med Refill 03/01/2024 Encounter Details Date Type Department Care Team ([facility] st Contact Info) Description 03/01/2024 Telephone [facility] MEDICINE [address] [place], [place] [phone] Agustin Marrero MD 230 [place] [address] Med Refill Social History Tobacco Use Types [...] 03/01/2024 2:24 PM EST Received fax from [facility] requesting script clarification need directions. * Telephone Encounter - Manjeet Mclaughlin - 03/01/2024 2:21 PM EST TC from pt requesting medication refill. Medications needing refill : traMADol (Ultram) 50 MG table To be sent to: [facility]/pharmacy #[id number] documented in this encounter Plan of Treatment Upcoming Encounters Date Type Department Care Team (Late st Contact Info) Description 08/26/2024 9:00 AM EDT Clinical Support [facility] MEDICINE [address] [place] [address] Shwetha Collado RN 505 [place] [address] 11/16/2024 10:00 AM EDT Office Visit [facility] ADULT DENTAL [address] [place] [address] Catherine Antonio [address] [place] [address] documented as of this encounter Visit Diagnoses Not on filedocumented in this encounter Additional Health Concerns Assessment Noted Time PHQ-9 Depression Total Score: 0 12/03/19 24 10:31 AM EDT documented as of this encounter Care Teams Farmer General Relationship Specialty Start Date End Date Agustin Marrero MD 230 [facility] [place] [address] PCP - General Internal Medicine 01/25/14 [facility] 06/13/16 documented as of this encounter
--- OUTSIDE RECORDS SUMMARY | 2024-07-20 08:18 | XMS_ITS | Encounter Summary ---
Author Organization [facility] Address [address] [place] [address] Care Team Providers Care Director Of Engineering Name Role Phone Agustin Mix Primary Care Provider + Encounter Details Date Type Department Care Team (Late st Contact Info) Description 07/23/2023 Orders Only [facility] Interventional Radiology [address] [place] [address] Pawel Sanchez MD [address] [place] [address] Social History Tobacco Use Types Packs/Day Years [...] Info) Description 08/01/2024 11:30 AM EDT Follow-Up [facility] Liver Transplant Services [address] [place] [address] Dylan Phelps MD [address] [place] [address] documented as of this encounter Visit Diagnoses Not on filedocumented in this encounter Care Teams Director Of Engineering Relationship Specialty Start Date End Date Agustin Mix [address] [place] [address] PCP - General Internal Medicine 04/15/17 documented as of this encounter
--- OUTSIDE RECORDS SUMMARY | 2024-07-20 08:18 | XMS_ITS | Encounter Summary ---
Author Organization [employer] Address [address] [place] [address] 7t [place] [address] Care Team Providers Care Property Master Name Role Phone Agustin Marrero MD Primary Care Provide r Reason for Visit * Reason Comments Med Refill Encounter Details Date Type Department Care Team ([facility] st Contact Info) Description 11/02/2023 Refill [facility] MEDICINE [address] [place], [place] [phone] Lela Wu MD 230 [place], [place] [phone] Primary insomnia Social History Tobacco Use Types [...] Description 08/26/2024 9:00 AM EDT Clinical Support [facility] MEDICINE [address] [place] [address] Shwetha Collado RN 505 [place] [address] 11/16/2024 10:00 AM EDT Office Visit [facility] ADULT DENTAL [address] [place] [address] Paco, Catherine [address] [place] [address] documented as of this encounter Visit Diagnoses Diagnosis Primary insomnia Persistent disorder of initiating or maintaining sleep documented in this encounter Additional Health Concerns Assessment Noted Time PHQ-9 Depression Total Score: 5 06/16/19 24 9:35 AM EST documented as of this encounter Care Teams Property Master Relationship Specialty Start Date End Date Agustin Marrero MD [address] [place] [address] PCP - General Internal Medicine 01/25/14 [facility] 06/13/16 documented as of this encounter
--- OUTSIDE RECORDS SUMMARY | 2024-07-20 08:19 | XMS_ITS ---
Author Organization [facility] Address [address] [place] [address] Care Team Providers Care Skip Tender Name Role Phone Agustin Mix Primary Care Provider + Transplant Episode Liver Recipient [facility] ([place], [place]) - [facility] Organ Received: Liver Transplanted on 08/09/2019 Marked as Active Follow-up on 08/09/2019 Liver CoordinatorErika Bonds RN Phone: N/A Fax: N/A Email: N/A [place] Organ Diagnosis Organ Primary Contributory Liver Alcoholic Cirrhosis Infection History Noted Survival Infection Treatment Organism Resolved 06/12/2020 308 days Cytomegalovirus (CMV) viremia (HCC) 05/09/2020 274 days COVID-19 Donor Information [...] Coordinator N/A N/A N/A Dylan Phelps MD Edge [employer] [phone] [email or web address] Sarai Diaz Referring Physician [phone] N/A Events Post-Transplant Pre-Transplant Admitted: 08/09/2019 Referred: 09/08/2016 Transplanted: 08/09/2019 Evaluation began: 7 Discharged: 08/25/2019 Committee: 10/24/2016 Center waitlisted: 7 Appointments (06/19/2024 - 08/19/2024) When With Visit Type Description 08/01/2024 Transplant - Colton Phelps Follow Up
--- OUTSIDE RECORDS SUMMARY | 2024-07-20 08:19 | XMS_ITS | Patient Health Record ---
Author Organization [facility] [place] Address [address] [facility] [place] [address] Care Team Providers Care Warper Fixer Name Role Phone Nura Connelly MD, Agustin Primary Care Provide r Unavailable Yovanny Long Unavailable [phone] Reason For Referral No Information Medications Medication SIG (Take, Route, Frequency, Duration) Notes Start Date End Date Status Tacrolimus 1 MG as directed Orally Active Vitamin D3 671282 UNIT/GM as directed Active Magnesium 400 MG [...] disorder associated with type II diabetes mellitus (917973681) Type 2 diabetes mellitus with other diabetic neurological complication (E11.49) Active confirmed Vital Signs Heart Rate 68 /min 06/17/2024 Blood pressure diastolic 81 mm Hg 06/17/2024 Height 5ft 7 in in 06/17/2024 Blood pressure systolic 134 mm Hg 06/17/2024 Weight 205 lbs 06/17/2024 BMI 32.1 kg/m2 06/17/2024 Procedures Procedure Date Ordered Date Performed Result Body Sit e 33747-ICNFDRU NAIL, 6 OR MORE 03/10/2024 N/A 29826-WGFFHKR NAIL, 6 OR MORE 06/17/2024 N/A Encounters Encounter Location Date Provider Diagnosis [address] [address] 03/10/2024 Yovanny Long Onychomycosis B35.1 ; Xerosis of skin L85.3 ; Pain in right toe(s) M79.674 and Pain in left toe(s) M79.[address] [address] 06/17/2024 Yovanny Long Onychomycosis B35.1 and Type 2 diabetes mellitus with other diabetic neurological complication E11.[address] [address] 03/10/2024 Yovanny Long [address] [address] 05/26/2024 Yovanny Long Assessments Encounter Date Diagnosis (ICD Code) Assessment Notes Treatment Notes Treatment Clinical Notes Section Notes 03/10/2024 Xerosis of skin (ICD-10 - L85.3) Application of Lawson-Soothe skin lotion to his feet 03/10/2024 Onychomycosis (ICD-10 - B35.1) 06/17/2024 Type 2 diabetes mellitus with other diabetic neurological complication (ICD-10 - E11.49) 06/17/2024 Onychomycosis (ICD-10 - B35.1) 03/10/2024 Pain in right toe(s) (ICD-10 - M79.674) 03/10/2024 Pain in left toe(s) (ICD-10 - M79.675) 05/26/2024 Other 06/17/2024 Other Application of Lawson-Soothe skin lotion to his feet Plan Of Treatment Pending Test Test Name Order Date [id number]-SUQXMLD NAIL, 6 OR MORE 03/10/2024 22053-KYUWZXF NAIL, 6 OR MORE 06/17/2024 Next Appt Details Provider Name:Sun kenney, 08/29/2024 11:00:00 AM, [address] [facility], [place], [address], Insurance Providers Payer Name Payer Address Payer Phone Subscriber Number Group Number Insured Name Patient Relationship to Insured Coverage Start Date Coverage End Date [facility] [employer] Claims [address] [place] [id number] Edward Jon Self - patient is the insured Medical (General) History Medical History History ICD Code Back,Hip,and Knee pain Broken bones Cataracts covid-19 Dementia Depression Diabetic Gall bladder problems Hiatal hernia High Blood Pressure Liver disease Psychiatric disorder Surgical History Surgery Date(Month/Year) back surgery 02/2024
--- OUTSIDE RECORDS SUMMARY | 2024-07-20 08:19 | XMS_ITS | Encounter Summary ---
Author Organization [facility] Address [address] [place] [address] Care Team Providers Care B And B Gang Worker Name Role Phone Agustin Mix Primary Care Provider + Encounter Details Date Type Department Care Team (Late st Contact Info) Description 01/21/2017 Transplant Conversio n Encounter [facility] Health Information Management [address] [place] [address] Provider, [facility] Social History Tobacco Use Types [...] Info) Description 08/01/2024 11:30 AM EDT Follow-Up [facility] Liver Transplant Services [address] [place] [address] Dylan Phelps MD [address] [place] [address] documented as of this encounter Visit Diagnoses Not on filedocumented in this encounter Additional Health Concerns Infection Onset Date Last Indicated Resolved Time 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 + BC at [facility] > 6 months ago - can D/C contact isolation 01/20/2019 02/10/2019 08/10/2019 9:27 AM E DT COVID-19 - Suspected infection 03/05/2020 03/17/2020 03/17/2020 7:55 PM EST COVID-19 - Confirmed infection 05/01/2020 05/07/2020 06/01/2020 5:06 PM EST COVID-19 - Suspected infection 05/10/2020 05/10/2020 05/24/2020 10:34 PM EST documented as of this encounter Care Teams B And B Gang Worker Relationship Specialty Start Date End Date Agustin Mix [address] [place] [address] PCP - General Internal Medicine 04/15/17 documented as of this encounter
--- OUTSIDE RECORDS SUMMARY | 2024-07-20 08:19 | XMS_ITS | Encounter Summary ---
Author Organization [facility] Address [address] [place] [address] 7t [place] [address] Care Team Providers Care Yarn Sorter Name Role Phone Agustin Marrero MD Primary Care Provide r Encounter Details Date Type Department Care Team (Latest Contact Info) Description 07/16/2020 Abstract [facility] CONVERSIONS Dental, Provider, DDS Social History [...] Description 08/26/2024 9:00 AM EDT Clinical Support [facility] MEDICINE [address] [place] [address] Shwetha Collado RN [address] [place] [address] 11/16/2024 10:00 AM EDT Office Visit [facility] ADULT DENTAL [address] [place] [address] Paco Catherine [address] [place] [address] documented as of this encounter Visit Diagnoses Not on filedocumented in this encounter Care Teams Yarn Sorter Relationship Specialty Start Date End Date Agustin Marrero MD [address] [place] [address] PCP - General Internal Medicine 01/25/14 [facility] 06/13/16 documented as of this encounter
--- OUTSIDE RECORDS SUMMARY | 2024-07-20 08:19 | XMS_ITS | Encounter Summary ---
Author Organization [facility] Address [address] [place] [address] 7t [place] [address] Care Team Providers Care Boat Canvas Installer Name Role Phone Agustin Marrero MD Primary Care Provide r Reason for Visit * Reason Onset Date Comments Med Refill 10/16/2022 Encounter Details Date Type Department Care Team ([facility] st Contact Info) Description 10/16/2022 Telephone [facility] MEDICINE [address] [place], [place] [phone] Agustin Marrero MD [address] [place] [address] Med Refill Social History Tobacco Use Types [...] Description 08/26/2024 9:00 AM EDT Clinical Support [facility] MEDICINE [address] [place] [address] Shwetha Collado RN [address] [place] [address] 11/16/2024 10:00 AM EDT Office Visit [facility] ADULT DENTAL [address] [place] [address] Matty Antonioaris [address] [place] [address] documented as of this encounter Visit Diagnoses Not on filedocumented in this encounter Care Teams Boat Canvas Installer Relationship Specialty Start Date End Date Agustin Marrero MD [address] [place] [address] PCP - General Internal Medicine 01/25/14 [facility] 06/13/16 documented as of this encounter
--- OUTSIDE RECORDS SUMMARY | 2024-07-20 08:19 | XMS_ITS | Encounter Summary ---
Author Organization [facility] Address [address] [place] [address] Care Team Providers Care Report Clerk Name Role Phone Agustin Mix Primary Care Provider + Encounter Details Date Type Department Care Team (Late st Contact Info) Description 06/28/2020 Telephone [facility] Central Scheduling Department [address] [place] [address] Telephone Intake, Staff Social History Tobacco Use [...] and can be reached at phone number [phone]. Thank you documented in this encounter Plan of Treatment Upcoming Encounters Date Type Department Care Team (Late st Contact Info) Description 08/01/2024 11:30 AM EDT Follow-Up [facility] Liver Transplant Services [address] [place] [address] [phone] Dylan Phelps MD [address] [place], [place] [phone] documented as of this encounter Visit Diagnoses Not on filedocumented in this encounter Care Teams Report Clerk Relationship Specialty Start Date End Date Agustin Mix [address] [place] [address] PCP - General Internal Medicine 04/15/17 documented as of this encounter
--- OUTSIDE RECORDS SUMMARY | 2024-07-20 08:19 | XMS_ITS ---
Author Organization [facility] Address [address] [place] [address] Care Team Providers Care Rod Machine Operator Name Role Phone Nura Connelly MD, Agustin Primary Care Provide r Yovanny Jackson [phone] REASON FOR VISIT No Show Encounters Encounter Location Date Provider Diagnosis [facility] [address] [place] [address] 05/26/2024 Yovanny Long Plan Of Treatment Next Appt Details Provider Name:Sun kenney, 08/29/2024 11:00:00 AM, [address] [facility], [place], [address], Progress Notes * Edward JONDOB:[birth year] (59 yo M)Acc No.[id number]:05/26/2024 Patient:?Salome JON :1965???Age:59 Y???Sex:Male Address:[address] [place] [address], [place] [address] * true * Date:? Generated for Printi ng/Fageorgeg/eTransmitting on:?07/20/2024 08:18 AM EDT
--- OUTSIDE RECORDS SUMMARY | 2024-07-20 08:19 | XMS_ITS | Encounter Summary ---
Author Organization [employer] [facility] Address [address] [place] [address] 7t [place] [address] Care Team Providers Care Junior Technical Writer Name Role Phone Agustin Marrero MD Primary Care Provide r Reason for Visit * Reason Comments Med Refill Encounter Details Date Type Department Care Team (Late st Contact Info) Description 05/14/2022 Refill [facility] MEDICINE [address] [place] [address] Agustin Marrero MD [address] [place] [address] Chronic midline low back pain without sciatica [...] 08/26/2024 9:00 AM EDT Clinical Support [facility] MEDICINE [address] [place] [address] Shwetha Collado, RN [address] [place] [address] 11/16/2024 10:00 AM EDT Office Visit [facility] ADULT DENTAL [address] [place] [address] PacoCatherine [address] [place] [address] documented as of this encounter Visit Diagnoses Diagnosis Chronic midline low back pain without sciatica documented in this encounter Care Teams Junior Technical Writer Relationship Specialty Start Date End Date Agustin Marrero MD [address] [place] [address] PCP - General Internal Medicine 01/25/14 [facility] 06/13/16 documented as of this encounter
--- OUTSIDE RECORDS SUMMARY | 2024-07-20 08:19 | XMS_ITS | Encounter Summary ---
Author Organization [facility] Address [address] [place] [address] 7t [place] [address] Care Team Providers Care Arranger Assembler Name Role Phone Agustin Marrero MD Primary Care Provide r Encounter Details Date Type Department Care Team (Latest Contact Info) Description 09/06/2018 Abstract [facility] CONVERSIONS Dental, Provider, DDS Social History Tobacco [...] 9:00 AM EDT Clinical Support [facility] MEDICINE [address] [place] [address] Shwetha Collado RN [address] [place] [address] 11/16/2024 10:00 AM EDT Office Visit [facility] ADULT DENTAL [address] [place] [address] Paco Catherine [address] [place] [address] documented as of this encounter Visit Diagnoses Not on filedocumented in this encounter Care Teams Arranger Assembler Relationship Specialty Start Date End Date Agustin Marrero MD [address] [place] [address] PCP - General Internal Medicine 01/25/14 [facility] 06/13/16 documented as of this encounter
--- OUTSIDE RECORDS SUMMARY | 2024-07-20 08:19 | XMS_ITS | Encounter Summary ---
Author Organization [employer] [facility] Address [address] [place] [address] 7t [place] [address] Care Team Providers Care Script Reader Name Role Phone Agustin Marrero MD Primary Care Provide r Encounter Details Date Type Department Care Team (Latest Contact Info) Description 06/18/2021 Abstract [facility] CONVERSIONS Dental, Provider, DDS Social [...] Description 08/26/2024 9:00 AM EDT Clinical Support [facility] MEDICINE [address] [place] [address] Shwetha Collado RN [address] [place] [address] 11/16/2024 10:00 AM EDT Office Visit [facility] ADULT DENTAL [address] [place] [address] Paco Catherine [address] [place] [address] documented as of this encounter Visit Diagnoses Not on filedocumented in this encounter Care Teams Script Reader Relationship Specialty Start Date End Date Agustin Marrero MD [address] [place] [address] PCP - General Internal Medicine 01/25/14 [facility] 06/13/16 documented as of this encounter
--- OUTSIDE RECORDS SUMMARY | 2024-07-20 08:19 | XMS_ITS | Encounter Summary ---
Author Organization [employer] [facility] Address [address] [place] [address] 7t [place] [address] Care Team Providers Care M48/M60 Tank Driver Name Role Phone Agustin Marrero MD Primary Care Provide r Encounter Details Date Type Department Care Team (Latest Contact Info) Description 05/23/2019 Abstract [facility] CONVERSIONS Dental, Provider, DDS Social History [...] Support [facility] MEDICINE [address] [place] [address] Shwetha Collado RN [address] [place] [address] 11/16/2024 10:00 AM EDT Office Visit [facility] ADULT DENTAL [address] [place] [address] Paco Catherine [address] [place] [address] documented as of this encounter Visit Diagnoses Not on filedocumented in this encounter Care Teams M48/M60 Tank Driver Relationship Specialty Start Date End Date Agustin Marrero MD [address] [place] [address] PCP - General Internal Medicine 01/25/14 [facility] 06/13/16 documented as of this encounter
--- OUTSIDE RECORDS SUMMARY | 2024-07-20 08:20 | XMS_ITS | Encounter Summary ---
Author Organization [employer] Address [address] [place] [address] 7t [place] [address] Care Team Providers Care Furnace Filler Name Role Phone Agustin Marrero MD Primary Care Provide r Reason for Visit * Reason Onset Date Comments Medication Question 05/11/2024 Encounter Details Date Type Department Care Team ([facility] st Contact Info) Description 05/11/2024 Telephone [facility] MEDICINE [address] [place], [place] [phone] Agustin Marrero MD [address] [place], [place] [phone] Medication Question Social History Tobacco Use Types [...] Miscellaneous Notes * Telephone Encounter - Josey Yang RN - 05/16/2024 11:49 AM EST A also called Dr Richardson's office on 05/11/2024. Note in [facility] EHR: Received call from Edward's [...] early May to continue to monitor. Called [facility] pharmacy, spoke with Faiza who [...] Richardson's office and received same messageas above. Sap Data Architect advised Jessica to contact Dr Richardson with any questions regarding this med given that they prescribe it. Jessica stated she will be following up with their office in May once the pt gets their labs drawn. Advised her to call [facility] if any other questions or [...] leaving original prescriber contact information. Dr. Richardson [facility]. . If any questions for Jessica you can contact pt at [phone]. documented in this encounter Plan of Treatment Upcoming Encounters Date Type Department Care Team (Late st Contact Info) Description 08/26/2024 9:00 AM EDT Clinical Support [facility] MEDICINE [address] [place] [address] Shwetha Collado RN [address] [place] [address] 11/16/2024 10:00 AM EDT Office Visit [facility] ADULT DENTAL [address] [place] [address] Paco, Catherine [address] [place] [address] documented as of this encounter Visit Diagnoses Not on filedocumented in this encounter Additional Health Concerns Assessment Noted Time PHQ-9 Depression Total Score: 0 12/03/19 24 10:31 AM EDT documented as of this encounter Care Teams Furnace Filler Relationship Specialty Start Date End Date Agustin Marrero MD [address] [place] [address] PCP - General Internal Medicine 01/25/14 [facility] 06/13/16 documented as of this encounter
--- OUTSIDE RECORDS SUMMARY | 2024-07-20 08:20 | XMS_ITS | Encounter Summary ---
Author Organization [employer] Address [address] [place] [address] 7t [place] [address] Care Team Providers Care Audiology Doctor Name Role Phone Agustin Marrero MD Primary Care Provide r Reason for Visit * Reason Onset Date Comments Med Refill 04/14/2024 Encounter Details Date Type Department Care Team ([facility] st Contact Info) Description 04/14/2024 Telephone [facility] MEDICINE [address] [place], [place] [phone] Agustin Marrero MD [address] [place] [address] Med Refill Social History Tobacco Use Types [...] to soon for refill script sent to [facility] #[id number] on 03/24/24. * Telephone Encounter - Catherine Quiroz - 04/14/2024 11:49 AM EST TC from pt requesting medication refill. Medications needing refill : gabapentin (Neurontin) 300 MG capsule To be sent to: [facility]/pharmacy #[id number] - [address] documented in this encounter Plan of Treatment Upcoming Encounters Date Type Department Care Team (Late st Contact Info) Description 08/26/2024 9:00 AM EDT Clinical Support [facility] MEDICINE [address] [place] [address] Shwetha Collado, KATALINA [address] [place] [address] 11/16/2024 10:00 AM EDT Office Visit [facility] ADULT DENTAL [address] [place] [address] PacoCatherine [address] [place] [address] documented as of this encounter Visit Diagnoses Not on filedocumented in this encounter Additional Health Concerns Assessment Noted Time PHQ-9 Depression Total Score: 0 12/03/19 10:31 AM EDT documented as of this encounter Care Teams Audiology Doctor Relationship Specialty Start Date End Date Agustin Marrero MD [address] [place] [address] PCP - General Internal Medicine 01/25/14 [facility] 06/13/16 documented as of this encounter
--- OUTSIDE RECORDS SUMMARY | 2024-07-20 08:20 | XMS_ITS | Encounter Summary ---
Author Organization [facility] Address [address] [place] [address] 7t [place] [address] Care Team Providers Care Hopper Operator Name Role Phone Agustin Marrero MD Primary Care Provide r Reason for Visit * Reason Onset Date Comments Error 05/12/2023 Encounter Details Date Type Department Care Team ([facility] st Contact Info) Description 05/12/[address] [facility] MEDICINE [address] [place], [place] [phone] Agustin Marrero MD [address] [place], [place] [phone] Error Social History Tobacco Use Types Packs/Day [...] Description 08/26/2024 9:00 AM EDT Clinical Support [facility] MEDICINE [address] [place] [address] Shwetha Collado RN [address] [place] [address] 11/16/2024 10:00 AM EDT Office Visit [facility] ADULT DENTAL [address] [place] [address] Matty Antonioaris [address] [place] [address] documented as of this encounter Visit Diagnoses Not on filedocumented in this encounter Care Teams Hopper Operator Relationship Specialty Start Date End Date Agustin Marrero MD [address] [place] [address] PCP - General Internal Medicine 01/25/14 [facility] 06/13/16 documented as of this encounter
--- OUTSIDE RECORDS SUMMARY | 2024-07-20 08:20 | XMS_ITS | Clinical Summary ---
Author Organization [facility] Address [address] [place] [address] Care Team Providers Care Cutting Machine Tender Helper Name Role Phone Agustin Mix Primary [...] DAILY NEEDED. 0 Active Freestyle Lite test stripsIndicatio ns:Type 2 diabetes mellitus with hyperglycemia, with long-term current use of insulin (HCC) Test 3 times a day. 100 strip 1 12/13/2019 9:38 PM EDT 0 Active blood glucose diagnostic lancet 28 gaugeIndication [...] needed daily 2 Active FreeStyle Arvin 2 Idalou misc 2 Active BD Insulin Syringe Ultra-Fine 0.3 mL 31 gauge x 5/16 syringe 2 Active cholecalciferol (VITAMIN D3) 1,000 unit tablet Take 1 tablet (1,000 Units total) by mouth once a day. 90 tablet 1 3 Active FreeStyle Arvin 2 Sensor kit USE TO MONITOR BLOOD GLUCOSE LEVELS. CHANGE EVERY 14 DAYS DX E11.9 3 Active Artificial Tears,pg-hypm-g lyc, 1-0.2-0.2 % drops SMARTSIG:In Eye(s) 3 Active SUMAtriptan (IMITREX) 25 mg tablet Take 25 mg by mouth. 4 Active multivitamin tablet TOME OLINDA TABLETA TODOS LOS D 4 Active lidocaine (LIDODERM) 5% patch APLIQUE UN PARCHE EN LA MA SALOMÓN REMOVE AND DISARD PATCH WITHIN 12 HOURS OR SEG N LO INDICADO Active tacrolimus (PROGRAF) 1 mg capsuleIndicati ons:History of liver transplant (HCC) Take 1 capsule (1 mg total) [...] up blood cultures History of liver transplant 11/13/2022 Assessment & Plan (11/13/2022 3:56 PM [...] in March 2020. He was seen by pattern painter at [facility] who discussed [...] meds. 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 Additionally, Liver ultrasound showed [...] of recurrent ESBL bacteremia. Initially presented to [facility] for fever, LE swelling and pain. Unclear source. BCX grew esbl E.Coli 1 out of 2 sets from [facility], susceptible to Ertapenem. Initially he was [...] of recurrent ESBL bacteremia. Initially presented to [facility] for fever, LE swelling and pain. Unclear source. BCX grew esbl E.Coli 1 out of 2 sets from [facility], susceptible to Ertapenem. Initially he was [...] recurrent ESBL bacteremia. Patient initially presented to [facility] for fever and LE swelling and pain. Unclear source. BCX grew esbl E.Coli 1 out of 2 sets from [facility], susceptible to Ertapenem. Initially he was on zosyn, and was switched to ertapenem. On previous admission, MRCP on 12/20 or Abdominal US on 01/16 showed no biliary dilatation. - continue ertapenem (10 day course to be completed on 02/09 per [facility] note) - repeat BCX - CT AP w/ contrast - consult transplant ID in the AM - f/u CBC and CMP Assessment & Plan (02/05/2019 5:40 AM EDT): Patient has a recurrent history of recurrent ESBL bacteremia. Patient initially presented to [facility] for fever and LE swelling and pain. Unclear source. BCX grew esbl E.Coli 1 out of 2 sets from [facility], susceptible to Ertapenem. Initially he was on zosyn, and was switched to ertapenem. On previous admission, MRCP on 12/20 or Abdominal US on 01/16 showed no biliary dilatation. - continue ertapenem (10 day course to be completed on 02/09 per [facility] note) - repeat BCX - CT AP w/ contrast Abscess of leg, right 02/05/20192018 Assessment & Plan (02/22/2019 3:37 PM EST): Patient has worsened leg edema R>L w/ rt side 4+ pitting edema. At [facility], US was negative for DVT. CT [...] w/ rt side 4+ pitting edema. At [facility], US was negative for DVT. CT [...] Right side has 4+ pitting edema. At [facility], US was obtained and ruled out [...] was found. OSH GI recommended transfer to [facility] as there was a suspicion for acute [...] pathology. -BCx grew GNR?? -transplant ID consulted -[facility] was called for speciation, it will [...] concerning for pathology. -Transplant ID is following -[facility] will fax culture data, commented that [...] 8:59 AM EST): Hyponatremic to 132 at [facility]. Na 128, constant through hospitalization. - daily BMP Assessment & Plan (02/09/2019 11:02 AM EDT): Hyponatremic to 132 at [facility]. Na 128, constant through hospitalization. - daily BMP Assessment & Plan (02/05/2019 5:51 AM EDT): Hyponatremic to 132 at [facility]. - repeat BMP in am and redose diuretics Assessment & Plan (02/05/2019 5:47 AM EDT): Hyponatremic to 132 at [facility]. - repeat BMP in am and [...] Presented again on day of admission to [facility] with worsening shortness of breath where a CT chest PE protocol was performed which showed no evidence of intraluminal filling defect though did make note of large left- sided pleural effusion with associated complete left lower lobe collapse as well as partial left upper lobe collapse. Due to recurrent pleural effusion and likely need for repeat thoracentesis patient was transferred [facility]. On arrival patient without any increased work of breathing and saturating well on room air. Exam reveals absent breath sounds in the left middle and lower lung perez with increased dullness to percussion. 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 -We will have CT scan from [facility] uploaded into our system for review -CXR on 07/11 showed large left pleural effusion -IP consulted for thoracentesis. Will send fluid studies. -Requested [facility] records of pleural fluid studies from 07/06 -Supplemental oxygen as needed to maintain sats greater than 92% Assessment & Plan (01/19/2019 10:11 AM EDT): Patient is s/p thoracentesis after large left lung effusion unchanged from previous admission seen on imaging. Site of thoracentesis covered with bandage that is dry and intact. Chart review of his prior hospitalization at [facility] revealed that he had thoracentesis on January 11, 2019, during which 1.6 L was taken out, and fluid study revealed white blood cell count of 2650 and segs of 35%, suggesting exudative fluid, although it seems that no paracentesis was done at [facility]. - decreased breath sounds in middle and [...] resulting transudative fluid, rapidly reaccumulating, transferred to [facility] for TIPS intervention. Resumed diuretics today at [...] procedure in 2018. Most recent hospitalization at [facility] was in January 2019 when he [...] to hyperkalemia. Of note, reached out to [facility] to double check if paracentesis was done, and whether there is a fluid study of the sample, however it appears that no paracentesis was done at [facility]. - Start Lactulose increased to 20 g [...] from TIPS procedure and was sent to [facility] for further evaluation. Plan -Continue with home [...] 20mg daily and spironolactone 50mg daily. At [facility], patient received IV lasix 40mg daily. [...] 20mg daily and spironolactone 50mg daily. At [facility], patient received IV lasix 40mg daily. [...] Encounters Date Type Department Care Team Description 06/29/2024 Orders Only [facility] Transplant Department [address] [place] [address] Erika Bonds, RN History of hepatocellular carcinoma (Primary Dx); History of liver transplant; Encounter for immunosuppression management after liver transplant 06/21/2024 Abstract [facility] Transplant Department [address] [place] [address] Dylan Phelps MD 06/20/2024 Results Follow-Up [facility] Liver Transplant Services [address] [place] [address] 40694 Sonya Melendez RN 06/20/2024 Abstract [facility] Transplant Department [address] [place] [address] 28895 Dylan Phelps MD 06/16/2024 Telephone [facility] Transplant Department [address] [place] [address] 97467 Isidra Sanchez RN 05/25/2024 Abstract [facility] Transplant Department [address] [place] [address] 28618 Dylan Phelps MD 05/24/2024 Abstract [facility] Transplant Department [address] [place] [address] 79637 Dylan Phelps MD 05/11/2024 Telephone [facility] Transplant Department [address] [place] [address] 80008 Erika Bonds, KATALINA 04/29/2024 Abstract [facility] Transplant Department [address] [place] [address] 10205 Dylan Phelps MD 04/28/2024 Abstract [facility] Transplant Department [address] [place] [address] 05861 Dylan Phelps MD 04/26/2024 Abstract [facility] Transplant Department [address] [place] [address] Dylan Phelps MD from Last 3 Months [...] Info) Description 08/01/2024 11:30 AM EDT Follow-Up [facility] Liver Transplant Services [address] [place] [address] Dylan Phelps MD [address] [place] [address] Health Maintenance Due Date Last [...] series) 2024 Alcohol/Substance Use Screening 04/20/2024 Depression Screening and Follow-Up 04/20/2024 Social Drivers of Health Layla ual [...] history exists Pneumococcal Vaccine: 50+ Years Completed Zoster Vaccines Completed 09/11/2022, 07/09/2022 CT Lung Cancer Screening (12 months, previous LungRADS 1 or 2) Discontinued 11/30/2023, 11/05/19, 05/06/2022, Additional history exists Influenza Vaccine Completed 01/25/2024, , 05/06/2022, Additional history exists Medical Devices Implanted Type Area Front Load Trash Truck Driver Device Identifier Shelf Expiration Date Model / Serial / Lot Shunt Transjugular Intrahepatic Portosystemic Tips Endoprosthesis [id number] Viatorr - [id number] Implanted:Qty: 1 on 07/28/2017 at [facility] Implant W L GORE 12/26/2019 [id number] / / Mesh Hernia With Strap Large Ventralex - [id number] Implanted:Qty: 1 on 03/20/2020 by Fernando Fine MD PhD at [facility] Mesh Right: Abdomen CR [employer]ARD INC 01/15/2021 [id number] / / [id number] Stent Biliary Rx Fully Covered Self Expanding Metallic Rmv With Permalume Covering 8.5fr [id number] Wallflex - [id number] - [id number] Implanted:Qty: 1 on 11/21/2022 by Dunia Osorio MD at [facility] Stent N/A: Bile Duct appCREAR 08/21/2024 [id number] / [id number] / Explanted Type Area Front Load Trash Truck Driver Device Identifier Shelf Expiration Date Model / Serial / Lot Ercp Stent-11/21/2022 Implanted:07/2022 (Quantity not on file) Explanted:06/2022 (Quantity not on file) ERCP Stent Bile Duct 1 / / Txp Internal Biliary Stent- 0 Implanted:04/2 04/2019 (Quantity not on file) Explanted:0607/2020 (Quantity not on file) TXP Internal Biliary Stent Bile Duct Procedures * Due to [place] state law, this organization might not be [...] EXTERNAL PANEL Routine 04/25/2024 7:[address] CHEST W CONTRAST Routine 11/05/2023 4 :35 PM EDT History of hepatocellular carcinoma History of liver transplant BASIC METABOLIC PANEL Routine 11/15/2022 3:07 AM EDT MICROALBUMIN, RANDOM URINE WITH CREATININE Routine 05/17/2021 11:35 AM EST Type 2 diabetes mellitus with hyperglycemia, with long-term current use of insulin HEMOGLOBIN A1C Routine 05/17/2021 11:31 AM EST Type 2 diabetes mellitus with hyperglycemia, with long-term current use of insulin CT ABDOMEN PELVIS W CONTRAST Routine 05/05/2020 5:27 PM EST HEPATITIS C RNA, QUANTITATIVE, PCR Routine 09/09/2019 11:52 AM EDT At risk for infection transmitted from donor S/P liver transplant from Last 3 Months or Most Recently Relevant to Health Maintenance Results * Due to [place] state law, this organization might not be sharing negative HIV tests. * LIVER POST EXTERNAL PANEL (06/17/2024 6:49 AM EST) Only the most recent of3 resultswithin the time period is included. Tacrolimus, Highly Sensitive 2.9 [facility] Sodium 138 mmol/L [facility] Potassium 4.4 [facility] Chloride 109 [facility] Carbon Dioxide 22 [facility] Glucose 157 [facility] BUN 19 mg/dL [facility] Creatinine 1.08 mg/dL [facility] Calcium 9.3 mg/dL [facility] Total Protein 7.3 g/dL [facility] Albumin 4.3 g/dL [facility] Bilirubin, Total 0.7 mg/dL [facility] Alkaline Phosphatase 108 U/L [facility] AST 26 U/L [facility] ALT 38 U/L [facility] Magnesium 1.50 mg/dL [facility] WBC 4.9 10*3/uL [facility] Hgb 14.0 [facility] Hematocrit 39.7 % [facility] Platelets 143 10*3/uL [facility] 06/17/2024 6:49 AM EST us Dylan Phelps MD LAB BLOOD ORDERABLES Final Re sult [facility] [address] [place] [address] * AFP Tumor Marker, Outside Lab (06/17/2024 6:49 AM EST) Only the most recent of3 resultswithin the time period is included. Alpha Fetoprotein, Tumor Marker 1.3 [facility] Blood Structure of peripheral vein / Unknown 06/17/2024 6:49 AM EST Dylan Phelps MD LAB BLOOD ORDERABLES Final Re sult Performing Organization Address City/[facility]/ZIP Co de Phone Number [facility] [address] [place] [address] * Tacrolimus Level, Outside Lab (04/25/2024 7:13 AM EST) Tacrolimus, Highly Sensitive 5.5 [facility] Blood Structure of peripheral vein / Unknown 04/25/2024 7:13 AM EST Dylan Phelps MD LAB BLOOD ORDERABLES Final Re sult Performing Organization Address [facility] Co de Phone Number [facility] [address] [place] [address] * CT Chest W Contrast (11/05/2023 4:35 [...] obtain the completed interpretation. ? Workstation ID: [id number] Up-to-date CT equipment and radiation dose reduction techniques were employed. CTDIvol: 3.1 - 23.9 mGy. DLP: 2643 mGy-cm. ??The following accession numbers are related to this dose report [id number]: [id number] Narrative 11/19/2023 3:36 PM EDT Indication: ??58 [...] the spine. ??Bilateral gynecomastia. Resulting Agency Comment [id number] Procedure Note Natasha Michaud MD - 11/19/2023 [...] possible to obtain thecompleted interpretation. Workstation ID: [id number] Up-to-date CT equipment and radiation dose reduction techniques wereemployed. CTDIvol: 3.1 - 23.9 mGy. DLP: 2643 mGy-cm. The followingaccession numbers are related to this dose report [id number]: [id number] Dylan Phelps MD [facility] CT PROCEDURES Final Resul t * (ABNORMAL) Basic Metabolic Panel (11/15/2022 3:07 AM EDT) NA 135 135 - 145 mmol/L 11/15/2022 4:09 AM EDT [facility] K 4.6 3.5 - 5.3 mmol/L 11/15/2022 4:09 AM EDT [facility] Cl 103 97 - 110 mmol/L 11/15/2022 4:09 AM EDT [facility] CO2 24 24 - 32 mmol/L 11/15/2022 4:09 AM EDT [facility] BUN 27(H) 7 - 23 mg/dL 11/15/2022 4:09 AM EDT [facility] Creatinine 1.05 0.60 - 1.30 mg/dL 11/15/2022 4:09 AM EDT [facility] Glucose 268(H) 70 - 99 mg/dL 11/15/2022 4:09 AM EDT [facility] Calcium 8.8 8.7 - 10.7 mg/dL 11/15/2022 4:09 AM EDT [facility] Anion Gap 8 5 - 15 11/15/2022 4:09 AM EDT [facility] eGFR 82 >=60 mL/min/1. 73m2 11/15/2022 4:09 AM EDT [facility] Comment:The estimated glomer ular [...] MD LAB BLOOD ORDERABLES Final Re sult [facility] [address] [place] [address], [place] * Microalbumin, Random Urine with Creatinine (05/17/2021 11:35 AM EST) Microalbumin, Urine 1.1 mg/dL 05/17/2021 12:34 PM EST [facility] Creatinine, Urine 97 22 - 328 mg/dL 05/17/2021 12:34 PM EST [facility] Microalb/Creat Ratio, Random Urine 11.3 <30.0 mcg/mgCr 05/17/2021 12:34 PM EST [facility] Comment: Microalbumin Reference Range: Normal ? <30 mcg/mg Creatinine Microalbuminuria ? 30-300 mcg/mg Creatinine Clinical Albuminuria >300 mcg/mg Creatinine Reference: ADA Guideline. Diabetes Care. 2004;27 (suppl 1) Urine Voided urine specimen / Unknown Non-Blood Collection / Unknown 05/17/2021 11:35 AM EST 05/17/2021 12:01 PM EST us Angelita Villa MD LAB URINE ORDERABLES Final Resul t [facility]Individual DigitalVT [facility] [address] [place] [address], * (ABNORMAL) Hemoglobin A1c (05/17/2021 11:31 AM EST) Hemoglobin A1C 7.7(H) <5.7 % of total Hgb 05/18/2021 2:37 AM EST [facility] Comment: For someone without known diabetes, a [...] (MG/DL) 174 mg/dL 05/18/2021 2:37 AM EST [facility] eAG (MMOL/L) 9.7 mmol/L 05/18/2021 2:37 AM EST [facility] Blood Structure of peripheral vein / Unknown Venipuncture / Unknown 05/17/2021 11:31 AM EST 05/17/2021 11:40 AM EST Narrative [facility] - 05/18/2021 2:37 AM EST [facility] Received Date: us Angelita Villa MD LAB BLOOD ORDERABLES Final Resul t [facility] [address] [facility] [address], [place] [address], [employer] [employer] [facility] [address] [facility] [address], [place] [address], * CT Abdomen Pelvis with Contrast (05/05/2020 5:27 PM EST) Anatomical Region Laterality Modality Body Computed Tomogra phy 05/06/2020 8:40 AM EST Impressions 05/06/2020 8:50 AM EST Small fluid pocket between the incision and transverse colon which may represent developing adhesions. Recommend correlation for any signs of infection in the incision on exam. Otherwise, no CT findings that might explain patient's fever. [id number] Narrative 05/06/2020 8:50 AM EST EXAMINATION: CT [...] no CT findings that mightexplain patient's fever. [id number] Reyes Voss MD [facility] CT PROCEDURES Final Result * Hepatitis C RNA, Quantitative, PCR (09/09/2019 11:52 AM EDT) Hcv RNA, Quantitative Real Time PCR <15 NOT DETECTED NOT DETECTED IU/mL 09/14/2019 5:38 PM EDT [employer] [facility] Hepatitis C Quantitative PCR Log IU/mL <1.18 NOT DETECTED NOT DETECTED Log IU/mL 09/14/2019 5:38 PM EDT [employer] [facility] Comment: This test was performed using Real-Time Polymerase Chain Reaction. Reportable Range: 15 IU/mL to 100,000,000 IU/mL (1.18 Log IU/mL to 8.00 Log IU/mL). ?? The analytical performance characteristics of this assay have been determined by [employer]. The modifications have not been cleared or approved by the FDA. This assay has been validated pursuant to the CLIA regulations and is used for clinical purposes. ?? For more information on this test, go to: http://education.Banno/faq/GLP72l5 (This link is being provided for informational/ educational purposes only.) Blood Structure of peripheral vein / Unknown Venipuncture / Unknown 09/09/2019 11:52 AM EDT 09/09/2019 12:07 PM EDT Narrative [facility] - 09/14/2019 5:38 PM EDT [facility] Received Date:[id number] Cyndi Pereira MD LAB BLOOD ORDERAB LES Final Result [facility] [address] [facility] [address], [place] [address], [employer] [facility] [address] [facility] [address], [place] [address], [place] [phone] from Last 3 Months or Most Recently Relevant to Health Maintenance Insurance [facility] [place] [id number] [facility] Dean ADRISTACIAMARILYN CHIN [id number] [facility] Advance Directives Documents on File Type Date Recorded Patient Applications Support Lead Expl anation Health Care Proxy 02/05/2019 4:40 [...] Name Relationship Healthcare Agent Relationship Communication Rivera Tompkinsjaspal Son Health Care Agent Care Teams Cutting Machine Tender Helper Relationship Specialty Start Date End Date Agustin Mix [address] [place] [phone] PCP - General Internal Medicine 04/15/17
--- OUTSIDE RECORDS SUMMARY | 2024-07-20 08:20 | XMS_ITS | Encounter Summary ---
Author Organization [facility] Address [address] [place] [address] Care Team Providers Care Beauty Operator Name Role Phone Agustin Mix Primary Care Provider + Encounter Details Date Type Department Care Team (Late st Contact Info) Description 06/20/2024 Results Follow-Up [facility] Liver Transplant Services [address] [place] [address] Sonya Melendez RN Social History Tobacco Use [...] Info) Description 08/01/2024 11:30 AM EDT Follow-Up [facility] Liver Transplant Services [address] [place] [address] Dylan Phelps MD [address] [place] [address] documented as of this encounter Visit Diagnoses Not on filedocumented in this encounter Care Teams Beauty Operator Relationship Specialty Start Date End Date Agustin Mix [address] [place] [address] PCP - General Internal Medicine 04/15/17 documented as of this encounter
--- OUTSIDE RECORDS SUMMARY | 2024-07-20 08:20 | XMS_ITS | Encounter Summary ---
Author Organization [facility] Address [address] [place] [address] Care Team Providers Care Broadcast Field Supervisor Name Role Phone Agustin Mix Primary Care Provider + Encounter Details Date Type Department Care Team (Late st Contact Info) Description 02/29/2020 Orders Only [facility] Ultrasound [address] [place] [address] Sreedhar Sotelo MD [address] [place], [place] [phone] Social History Tobacco Use Types Packs/Day Years [...] Info) Description 08/01/2024 11:30 AM EDT [facility] Transplant Services [address] [place] [address] Dylan Phelps MD [address] [place] [address] documented as of this encounter Visit Diagnoses Not on filedocumented in this encounter Additional Health Concerns Infection Onset Date Last Indicated Resolved Time COVID-19 - Suspected infection 03/05/2020 03/17/2020 03/17/2020 7:55 PM EST COVID-19 - Confirmed infection 05/01/2020 05/07/2020 06/01/2020 5:06 PM EST COVID-19 - Suspected infection 05/10/2020 05/10/2020 05/24/2020 10:34 PM EST documented as of this encounter Care Teams Broadcast Field Supervisor Relationship Specialty Start Date End Date Agustin Mix [address] [place] [address] PCP - General Internal Medicine 04/15/17 documented as of this encounter
--- OUTSIDE RECORDS SUMMARY | 2024-07-20 08:20 | XMS_ITS | Encounter Summary ---
Author Organization [facility] [facility] Address [address] [place] [address] 7t [place] [address] Care Team Providers Care Aws Software Development Engineer Name Role Phone Agustin Marrero MD Primary Care Provide r Reason for Visit * Reason Comments Med Refill Encounter Details Date Type Department Care Team (Late st Contact Info) Description 09/04/2022 Refill [facility] MEDICINE [address] [place] [address] Agustin Marrero MD [address] [place] [address] Social History Tobacco Use Types Packs/Day Years [...] Description 08/26/2024 9:00 AM EDT Clinical Support [facility] MEDICINE [address] [place] [address] Shwetha Collado, KATALINA [address] [place] [address] 11/16/2024 10:00 AM EDT Office Visit [facility] ADULT DENTAL [address] [place] [address] PacoCatherine [address] [place] [address] documented as of this encounter Visit Diagnoses Not on filedocumented in this encounter Care Teams Aws Software Development Engineer Relationship Specialty Start Date End Date Agustin Marrero MD [address] [place] [address] PCP - General Internal Medicine 01/25/14 [facility] 06/13/16 documented as of this encounter
--- OUTSIDE RECORDS SUMMARY | 2024-07-20 08:20 | XMS_ITS | Encounter Summary ---
Author Organization [employer] Address [address] [place] [address] 7t [place] [address] Care Team Providers Care Agriculture Specialist Name Role Phone Agustin Marrero MD Primary Care Provide r Reason for Visit * Reason Onset Date Comments Med Refill 05/26/2023 Encounter Details Date Type Department Care Team ([facility] st Contact Info) Description 05/26/2023 Telephone [facility] MEDICINE [address] [place], [place] [phone] Agustin Marrero MD [address] [place] [address] Med Refill Social History Tobacco Use Types [...] LITE test strip To be sent to: [facility]/pharmacy [address] [place] [address] documented in this encounter Plan of Treatment Upcoming Encounters Date Type Department Care Team (Late st Contact Info) Description 08/26/2024 9:00 AM EDT Clinical Support [facility] MEDICINE [address] [place] [address] Shwetha Collado RN [address] [place] [address] 11/16/2024 10:00 AM EDT Office Visit [facility] ADULT DENTAL [address] [place] [address] Catherine Antonio [address] [place] [address] documented as of this encounter Visit Diagnoses Not on filedocumented in this encounter Care Teams Agriculture Specialist Relationship Specialty Start Date End Date Agustin Marrero MD [address] [place] [address] PCP - General Internal Medicine 01/25/14 [facility] 06/13/16 documented as of this encounter
--- OUTSIDE RECORDS SUMMARY | 2024-07-20 08:20 | XMS_ITS | Encounter Summary ---
Author Organization [facility] Address [address] [place] [address] Care Team Providers Care Napper Tender Name Role Phone Agustin Mix Primary Care Provider + Encounter Details Date Type Department Care Team (Late st Contact Info) Description 04/02/2020 Orders Only [facility] Interventional Radiology [address] [place] [address] Kathy Bowling MD [address] [place] [address] Social History Tobacco Use Types Packs/Day Years [...] [facility] Liver Transplant Services [address] [place] [address] Dylan Phelps MD [address] [place] [address] documented as of this encounter Visit Diagnoses Not on filedocumented in this encounter Additional Health Concerns Infection Onset Date Last Indicated Resolved Time COVID-19 - Confirmed infection 05/01/2020 05/07/2020 06/01/2020 5:06 PM EST COVID-19 - Suspected infection 05/10/2020 05/10/2020 05/24/2020 10:34 PM EST documented as of this encounter Care Teams Napper Tender Relationship Specialty Start Date End Date Agustin Mix [address] [place] [address] PCP - General Internal Medicine 04/15/17 documented as of this encounter
--- OUTSIDE RECORDS SUMMARY | 2024-07-20 08:20 | XMS_ITS | Encounter Summary ---
Author Organization [employer] Address [address] [facility] 7t [place] [address] Care Team Providers Care Inside Sales Lead Name Role Phone Agustin Marrero MD Primary Care Provide r Encounter Details Date Type Department Care Team (Late st Contact Info) Description 05/05/2023 Telephone [facility] MEDICINE [address] [place], [place] [phone] Agustin Marrero MD [address] [place], [place] [phone] Social History Tobacco Use Types Packs/Day Years [...] 9:00 AM EDT Clinical Support [facility] MEDICINE [address] [place] [address] Shwetha Collado RN [address] [place] [address] 11/16/2024 10:00 AM EDT Office Visit [facility] ADULT DENTAL [address] [place] [address] Catherine Antonio [address] [place] [address] documented as of this encounter Visit Diagnoses Not on filedocumented in this encounter Care Teams Inside Sales Lead Relationship Specialty Start Date End Date Agustin Marrero MD [address] [place] [address] PCP - General Internal Medicine 01/25/14 [facility] 06/13/16 documented as of this encounter
--- OUTSIDE RECORDS SUMMARY | 2024-07-20 08:20 | XMS_ITS | Encounter Summary ---
Author Organization [employer] [facility] Address [address] [place] [address] 7t [place] [address] Care Team Providers Care Prep Cook Name Role Phone Agustin Marrero MD Primary Care Provide r Reason for Visit * Reason Onset Date Comments Med Refill 12/15/2022 Encounter Details Date Type Department Care Team ([facility] st Contact Info) Description 12/15/2022 Telephone [facility] MEDICINE [address] [place], [place] [phone] Agustin Marrero MD [address] [place] [address] Med Refill Social History Tobacco Use Types [...] Description 08/26/2024 9:00 AM EDT Clinical Support [facility] MEDICINE [address] [place] [address] Shwetha Collado, RN [address] [place] [address] 11/16/2024 10:00 AM EDT Office Visit [facility] ADULT DENTAL [address] [place] [address] Catherine Antonio [address] [place] [address] documented as of this encounter Visit Diagnoses Not on filedocumented in this encounter Care Teams Prep Cook Relationship Specialty Start Date End Date Agustin Marrero MD [address] [place] [address] PCP - General Internal Medicine 01/25/14 [facility] 06/13/16 documented as of this encounter
--- OUTSIDE RECORDS SUMMARY | 2024-07-20 08:20 | XMS_ITS | Encounter Summary ---
Author Organization [employer] [facility] Address [address] [place] [address] 7t [place] [address] Care Team Providers Care Early Childhood Aide Classroom Name Role Phone Agustin Marrero MD Primary Care Provide r Encounter Details Date Type Department Care Team (Late st Contact Info) Description 08/28/2022 Abstract [facility] MEDICINE [address] [place] [address] Agustin Marrero MD [address] [place] [address] Social History Tobacco Use Types Packs/Day Years [...] Description 08/26/2024 9:00 AM EDT Clinical Support [facility] MEDICINE [address] [place] [address] Shwetha Collado RN [address] [place] [address] 11/16/2024 10:00 AM EDT Office Visit [facility] ADULT DENTAL [address] [place] [address] Catherine Antonio [address] [place] [address] documented as of this encounter Procedures Procedure Name Priority Date/Time Associated Diagnosis Comments COLONOSCOPY Routine 06/28/2021 documented in this encounter Results * Colonoscopy (06/28/2021) Colonoscopy Normal Normal 06/28/2021 Rogelio Betzy Shanel - 06/28/2021 9:58 AM EST Recommended 3 year follow up per [place] ( [facility] [place] Historical Provider HEALTH MAINTENANCE Edited Result - Final documented in this encounter Visit Diagnoses Not on filedocumented in this encounter Care Teams Early Childhood Aide Classroom Relationship Specialty Start Date End Date Agustin Marrero MD [address] [place] [address] PCP - General Internal Medicine 01/25/14 [facility] 06/13/16 documented as of this encounter
--- OUTSIDE RECORDS SUMMARY | 2024-07-20 08:20 | XMS_ITS | Encounter Summary ---
Author Organization [facility] Address [address] [place] [address] Care Team Providers Care Tank Filler Name Role Phone Agustin Mix Primary Care Provider + Encounter Details Date Type Department Care Team (Late st Contact Info) Description 12/30/2021 Orders Only [facility] Interventional Radiology [address] [place] [address] Avelino Otero DO [address] [place] [address] Social History Tobacco Use Types Packs/Day Years [...] Description 08/01/2024 11:30 AM EDT Follow-Up [facility] Liver Transplant Services [address] [place] [address] Dylan Phelps MD [address] [place] [address] documented as of this encounter Visit Diagnoses Not on filedocumented in this encounter Care Teams Tank Filler Relationship Specialty Start Date End Date Agustin Mix [address] [place] [address] PCP - General Internal Medicine 04/15/17 documented as of this encounter
--- OUTSIDE RECORDS SUMMARY | 2024-07-20 08:20 | XMS_ITS | Data Portability ---
Author Organization [facility] [employer] [facility], Main Office Address [address] [facility] [place] [address] Care Team Providers Care Batterboard Setter Name Role Phone MARICRUZ NEWMAN - 2ND FLOOR OTHER Assessment Encounter Date Assessment Date Assessment LastModified by Organization Details LastModified Time 02/25/2019 02/25/2019 02/24/19 WBC 3.7, Hgb 7.5, Hct 22.4, Plt 59, Na 134, K 4.5, BUN 10, Balancer Scale 0.54, calc 7.8, tot prot 5.1, AST 69, ALT 33, A1c 4.2 02/23/19 WBC 3.4, Hgb 7.5, Hct 22.4, Plt 59, Na 128, K 4.3, BUN 11, Balancer Scale 0.56, silvia 7.6, tot prot 4.8, tot bili 4.1, AST 65, ALT 25 in [facility] Not available 02/25/2019 10:15:55 Plan of Treatment [...] Gastroesop hageal reflux disease without esophagiti s 419102177 Active 2018 FIDEL MAURO [address] [facility], [address], [place], [address], [facility] [employer] 9 08:26:33 Cirrhosis of liver 49252580 Active 2018 on transplant list FIDEL MAURO [address] [facility], [address], [place], [address], [facility] 9 08:36:16 Diabetes mellitus 26916519 Active 2018 CACHORRO FIDEL CARLSON [address] [facility], [address], [place], [address], [facility] 9 08:28:07 Hyponatrem ia 41446658 Active 2018 CACHORROFIDEL LEON [address] [facility], [address], [place], [address], [facility] 9 08:28:22 Bacteremia 4303902 Active 2018 CACHORROFIDEL LEON [address] [facility], [address], [place], [address], [facility] 9 08:29:07 Bacterial peritoniti s 190216146 Active 2018 FIDEL MAURO [address] [facility], [address], [place], [address], [facility] 9 09:07:42 Edema of lower extremity 030791543 Active 2018 FIDEL MAURO [address] [facility], [address], [place], [address], [facility] 9 09:15:49 Abscess of lower leg 061249203 Active 2018 Brittaney Mcelroy MD [address] [place] [address], [address], [place], [address], [facility] 9 07:15:49 Anemia 160073085 Active 2018 Brittaney Mcelroy MD [address] [place] [address], [address], [place], [address], [employer] [facility] 9 07:16:47 Problem Notes None recorded. Medical Equipment None Reported. Allergies No known drug allergies Medications Not known to be on any medication Vitals Date Recorded Body weight Heart rate Respiratory rate Body temperature Oxygen saturation Oxygen saturation in Arterial blood by Pulse oximetry Systolic blood pressure Diastolic blood pressure Provider Name and Address Organization Details Last Updated DateTime 9 [address].5 1 g 70 /min 20 /min 96.9 [degF] 98 % 98 % 128 mm[Hg] 74 mm[Hg] FIDEL MAURO [address] [facility], [address], [place], [address], [facility] 9 11:06:12 Date Recorded Systolic blood pressure Diastolic blood pressure Provider Name and Address Organization Details Last Updated DateTime 03/02/2019 120 mm[Hg] 68 mm[Hg] Brittaney Mcelroy MD [address] [facility], [address], [place], [address], [facility] [employer] 03/02/2019 06:55:54 Social History Question Answer Notes LastModified by Organizat ion Details LastModified Time Tobacco Smoking Status Former Smoker Not Available [facility] 02/14/2020 03:13:21 Do You Have An Advance Directive? Yes FULL CODE-undecid ed About Dialysis And Nutrition-ma y Use Hydration [id number] Information not available 02/14/2020 What Is Your Level Of Alcohol Consumption? None Quit Drinking In 2016 [id number] Information not available 02/14/2020 How Many Years Have You Consumed Alcohol? 30 [id number] Information not available 02/14/2020 How Much Tobacco Do You Chew? None [id number] Information not available 02/14/2020 Do You Or Have You Ever Used E-cigarettes Or Vape? Never Used Electronic Cigarettes [id number] Information not available 02/14/2020 Do You Have A Medical Power Of Cigar Maker? Yes Hcp On File [id number] Information not available 02/14/2020 What Was The Date Of Your Most Recent Tobacco Screening? 02/25/2019 [id number] Information not available 02/14/2020 Do You Or Have You Ever Used Smokeless Tobacco? Never Used Smokeless Tobacco [id number] Information not available 02/14/2020 How Much Tobacco Do You Smoke? 1 PPD [id number] Information not available 02/14/2020 On What Date Was Tobacco Cessation Counseling Provided? 02/25/2019 NA [id number] Information not available 02/14/2020 How Many Years Have You Smoked Tobacco? 30 [id number] Information not available 02/14/2020 Sex: Unknown Functional Status None recorded. Mental Status None recorded. Family History Nothing Reported. Medical History No medical history recorded. Past Encounters Encounter ID Performer Location Encounter Start Date Encounter Closed Date Diagnosis/Indication Diagnosis SNOMED-CT Code Diagnosis ICD10 Code Diagnosis Note [id number] FIDEL MAURO [address] [address] 02/25/2019 08:25:36 03/04/2019 13:41:33 Bacteremia 0658966 R78.81 completed treatmentm onitor dsg changes qdwet to dryareas clean Hyponatremia 01804516 E8 7.1 resolvedmo nitor labs Cirrhosis of liver K70.31 lactulose 30 mls tid 3-4 stools a dayspirono lactone 50 mg qdmonitoro n transplant listfollow s with [facility] Diabetes mellitus 732794 09 E11.9 lantus 8 units q riBMOF1s here is 4.2monitor for s/s of hypo/hyper glycemia Gastroesop hageal reflux disease without esophagitis 288601694 K21.9 omeprazole 20 mg qdmonitor for symptoms Bacterial peritonitis 19 2171869 K65.2 recurrentc ipro 500 mg qd prophymoni tor for symptoms Edema of l ower extremity 336604637 R60.0 lasix 20 mg qdmonitor edema [id number] Brittaney Mcelroy MD [address] [address] 03/02/2019 06:54:11 03/04/2019 13:42:54 Cirrhosis of liver 61772319 K70.31 fu GIlactulos e 20 gm tidfurosem concetta 20 mg dailymagne sium 400 mg dailyspiro nolactone 25 mg dailyon transplant list [facility] Diabetes mellitus 051668 09 E11.9 Humalog per sliding scaleLantu s 8U dailywill monitor Gastroesop hageal reflux disease without esophagitis 984819577 K21.9 omeprazole 20 mg dailywill monitor Anemia 485350576 D50.8 suspect multifacto rial including GI blood loss, chronic diseaseawa it B12, folateiron 325 mg bidwill continue to monitor Bacteremia 3719817 R78.8 1 antibiotic s completedd aily dressing changes legfu surgery Bacterial peritonitis 19 5458502 K65.2 history of in pastCipro 500 mg daily for prophylaxi sfu GI [facility] Health Concerns Section Related Observation LastModified by Organization Detai ls LastModified Time None Recorded Concern Status LastModified by Organization Details LastModified Time None Recorded Advance Directives Directive Y: FULL CODE-undecided about dialysis and nutrition-may use hydration Payers Encounter Date Sequence Insurance Name Policy Number Policy Banks Covered Member ID Banks Member ID Guarantor Name 02/25/2019 2 [place] [facility] [id number] [facility] 02/25/2019 1 [facility] - DOS PRIOR TO 2022 - DUAL ELIGIBLE (MEDICARE REPLACEMENT/AD VANTAGE - HMO) [facility] [id number] [facility] 03/02/2019 2 [place] [facility] Edward Jon [id number] [facility] 03/02/2019 1 [facility] - DOS PRIOR TO 2022 - DUAL ELIGIBLE (MEDICARE REPLACEMENT/AD VANTAGE - HMO) [facility] [id number] [facility] Notes Date Note Type Note Provider Name and Address Organization Details Recorded Time 02/25/2019 text/html A 54 year old ma le being seen for a initial intake note. Patient was at [facility] for fever and lower extremity edema/pain. He was transferred to [facility] for bacteremia. He grew ESBL E. Coli [...] GERD, DM, hyponatremia and SBP. CACHORRO CARLSON, ARCHITECTURE INSTRUCTOR [address] [facility], [address], [place], [address], [facility] 02/25/2019 11:10:47 03/02/2019 text/html This 54 year old male was admitted to [facility] 02/23/19 for continued care and rehab after hospitalization for fever and lower extremity edema/pain. Patient has history of alcoholic liver disease and cirrhosis and is on transplant list. He was initially admitted to [facility], then transferred to [facility] for bacteremia. His blood cultures grew ESBL E. Coli and he started on antibiotics, initially Zosyn which was changed to meropenem, then ertapenem to complete a 10 day course. Patient has history recurrent bacteremia in past few months. During most recent prior [facility] admission, it was suspected that likely source of bacteremia was biliary. Patient had worsened R>L leg edema and US was negative at [facility] for DVT. CT of right lower [...] MOLST: full code Brittaney Mcelroy MD [address] [facility], [address], [place], [address], [facility] 03/02/2019 08:11:36
--- OUTSIDE RECORDS SUMMARY | 2024-07-20 08:20 | XMS_ITS | Referral Summary ---
Author Organization [facility] Address [address] [place] [address] Care Team Providers Care Drawing Instructor Name Role Phone Agustin Mix Primary Care Provider + Encounters Date Type Department Care Team Description 06/29/2024 Orders Only [facility] Transplant Department [address] [place] [address] Erika Bonds RN History of hepatocellular carcinoma (Primary Dx); History of liver transplant; Encounter for immunosuppression management after liver transplant 06/21/2024 Abstract [facility] Transplant Department [address] [place] [address]85 Dylan Phelps MD 06/20/2024 Results Follow-Up [facility] [address] [place] [address] 23831 Sonya Melendez, KATALINA 06/20/2024 Abstract [facility] Transplant Department [address] [place] [address] 80404 Dylan Phelps MD 06/16/2024 Telephone [facility] [address] [place] [address] 50466 Isidra Sanchez RN 05/25/2024 Abstract [facility] Transplant Department [address] [place] [address] 65679 Dylan Phelps MD 05/24/2024 Abstract [facility] Transplant Department [address] [place] [address] Dylan Phelps MD 05/11/2024 Telephone [facility] Transplant Department [address] [place] [address] Erika Bonds RN 04/29/2024 Abstract [facility] Transplant Department [address] [place] [address] Dylan Phelps MD 04/28/2024 Abstract [facility] Transplant Department [address] [place] [address] 26085 Dylan Phelps MD 04/26/2024 Abstract [facility] Transplant Department [address] [place] [address] Dylan Phelps MD from Last 3 Months [...] needed daily 2 Active FreeStyle Arvin 2 Meyers Chuck misc 2 Active BD Insulin Syringe Ultra-Fine [...] in March 2020. He was seen by pain medicine physician at [facility] who discussed that he might [...] for liver biopsy, since LFT pattern not videotape sales representative of rejection. Additionally, Liver ultrasound [...] of recurrent ESBL bacteremia. Initially presented to [facility] for fever, LE swelling and pain. Unclear source. BCX grew esbl E.Coli 1 out of 2 sets from [facility], susceptible to Ertapenem. Initially he was on [...] of recurrent ESBL bacteremia. Initially presented to [facility] for fever, LE swelling and pain. Unclear source. BCX grew esbl E.Coli 1 out of 2 sets from [facility], susceptible to Ertapenem. Initially he was on [...] recurrent ESBL bacteremia. Patient initially presented to [facility] for fever and LE swelling and pain. Unclear source. BCX grew esbl E.Coli 1 out of 2 sets from [facility], susceptible to Ertapenem. Initially he was on zosyn, and was switched to ertapenem. On previous admission, MRCP on 12/20 or Abdominal US on 01/16 showed no biliary dilatation. - continue ertapenem (10 day course to be completed on 02/09 per [facility] note) - repeat BCX - CT AP w/ contrast - consult transplant ID in the AM - f/u CBC and CMP Assessment & Plan (02/05/2019 5:40 AM EDT): Patient has a recurrent history of recurrent ESBL bacteremia. Patient initially presented to [facility] for fever and LE swelling and pain. Unclear source. BCX grew esbl E.Coli 1 out of 2 sets from [facility], susceptible to Ertapenem. Initially he was on zosyn, and was switched to ertapenem. On previous admission, MRCP on 12/20 or Abdominal US on 01/16 showed no biliary dilatation. - continue ertapenem (10 day course to be completed on 02/09 per [facility] note) - repeat BCX - CT AP w/ contrast Abscess of leg, right 02/05/20192018 Assessment & Plan (02/22/2019 3:37 PM EST): Patient has worsened leg edema R>L w/ rt side 4+ pitting edema. At [facility], US was negative for DVT. CT [...] w/ rt side 4+ pitting edema. At [facility], US was negative for DVT. CT [...] Right side has 4+ pitting edema. At [facility], US was obtained and ruled out [...] was found. OSH GI recommended transfer to [facility] as there was a suspicion for acute [...] pathology. -BCx grew GNR?? -transplant ID consulted -[facility] was called for speciation, it will be [...] concerning for pathology. -Transplant ID is following -[facility] will fax culture data, commented that [...] 8:59 AM EST): Hyponatremic to 132 at [facility]. Na 128, constant through hospitalization. - daily BMP Assessment & Plan (02/09/2019 11:02 AM EDT): Hyponatremic to 132 at [facility]. Na 128, constant through hospitalization. - daily BMP Assessment & Plan (02/05/2019 5:51 AM EDT): Hyponatremic to 132 at [facility]. - repeat BMP in am and redose diuretics Assessment & Plan (02/05/2019 5:47 AM EDT): Hyponatremic to 132 at [facility]. - repeat BMP in am and [...] Presented again on day of admission to [facility] with worsening shortness of breath where a CT chest PE protocol was performed which showed no evidence of intraluminal filling defect though did make note of large left- sided pleural effusion with associated complete left lower lobe collapse as well as partial left upper lobe collapse. Due to recurrent pleural effusion and likely need for repeat thoracentesis patient was transferred [facility]. On arrival patient without any increased work of breathing and saturating well on room air. Exam reveals absent breath sounds in the left middle and lower lung perez with increased dullness to percussion. 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 -We will have CT scan from [facility] uploaded into our system for review -CXR on 07/11 showed large left pleural effusion -IP consulted for thoracentesis. Will send fluid studies. -Requested [facility] records of pleural fluid studies from 07/06 -Supplemental oxygen as needed to maintain sats greater than 92% Assessment & Plan (01/19/2019 10:11 AM EDT): Patient is s/p thoracentesis after large left lung effusion unchanged from previous admission seen on imaging. Site of thoracentesis covered with bandage that is dry and intact. Chart review of his prior hospitalization at [facility] revealed that he had thoracentesis on January 11, 2019, during which 1.6 L was taken out, and fluid study revealed white blood cell count of 2650 and segs of 35%, suggesting exudative fluid, although it seems that no paracentesis was done at [facility]. - decreased breath sounds in middle and [...] resulting transudative fluid, rapidly reaccumulating, transferred to [facility] for TIPS intervention. Resumed diuretics today at [...] 2018. Most recent hospitalization at [facility] was in January 2019 when he was [...] to hyperkalemia. Of note, reached out to [facility] to double check if paracentesis was done, and whether there is a fluid study of the sample, however it appears that no paracentesis was done at [facility]. - Start Lactulose increased to 20 g [...] from TIPS procedure and was sent to [facility] for further evaluation. Plan -Continue with home [...] 20mg daily and spironolactone 50mg daily. At [facility], patient received IV lasix 40mg daily. [...] 20mg daily and spironolactone 50mg daily. At [facility], patient received IV lasix 40mg daily. [...] Info) Description 08/01/2024 11:30 AM EDT Follow-Up [facility] Liver Transplant Services [address] [place] [address] Dylan Phelps MD [address] [place] [address] Medical Devices Implanted Type Area Retail Service Specialist Device Identifier Shelf Expiration Date Model / Serial / Lot Shunt Transjugular Intrahepatic Portosystemic Tips Endoprosthesis [id number] Viatorr - [id number] Implanted:Qty: 1 on 07/28/2017 at [facility] Implant W L GORE 12/26/2019 [id number] / / Mesh Hernia With Strap Large Ventralex - [id number] Implanted:Qty: 1 on 03/20/2020 by Fernando Fine MD PhD at [facility] Mesh Right: Abdomen [employer] 01/15/2021 [id number] / / [id number] Stent Biliary Rx Fully Covered Self Expanding Metallic Rmv With Permalume Covering 8.5fr [id number] Wallflex - [id number] - [id number] Implanted:Qty: 1 on 11/21/2022 by Dunia Osorio MD at [facility] Stent N/A: Bile Duct [employer] 08/21/2024 [id number] / [id number] / Explanted Type Area Retail Service Specialist Device Identifier Shelf Expiration Date Model / Serial / Lot Ercp Stent-11/21/2022 Implanted:07/2022 (Quantity not on file) Explanted:06/2022 (Quantity not on file) ERCP Stent Bile Duct 1 / / Txp Internal Biliary Stent- Implanted:07/20 (Quantity not on file) Explanted:07/2020 (Quantity not on file) TXP Internal Biliary Stent Bile Duct Procedures * Due to [place] [employer] law, this organization might not be sharing [...] to Health Maintenance Results * Due to [place] [employer] law, this organization might not be sharing negative HIV tests. * LIVER POST EXTERNAL PANEL (06/17/2024 6:49 AM EST) Only the most recent of3 resultswithin the time period is included. Tacrolimus, Highly Sensitive 2.9 [facility] Sodium 138 mmol/L [facility] Potassium 4.4 [facility] Chloride 109 [facility] Carbon Dioxide [address] [facility] Glucose 157 [facility] BUN 19 mg/dL [facility] Creatinine 1.08 mg/dL [facility] Calcium 9.3 mg/dL [facility] Total Protein 7.3 g/dL [facility] Albumin 4.3 g/dL [facility] Bilirubin, Total 0.7 mg/dL [facility] Alkaline Phosphatase 108 U/L [facility] AST 26 U/L [facility] ALT 38 U/L [facility] Magnesium 1.50 mg/dL [facility] WBC 4.9 10*3/uL [facility] Hgb 14.0 [facility] Hematocrit 39.7 % [facility] Platelets 143 10*3/uL [facility] 06/17/2024 6:49 AM EST Dylan Phelps MD LAB BLOOD ORDERABLES Final Re sult Performing Organization Address [facility] Co de Phone Number [facility] [address] [place], [place] [phone] * AFP Tumor Marker, Outside Lab (06/17/2024 6:49 AM EST) Only the most recent of3 resultswithin the time period is included. Alpha Fetoprotein, Tumor Marker 1.3 [facility] Blood Structure of peripheral vein / Unknown 06/17/2024 6:49 AM EST Dylan Phelps MD LAB BLOOD ORDERABLES Final Re sult Performing Organization Address City/[facility]/ZIP Co de Phone Number [facility] [address] [place] [address] * Tacrolimus Level, Outside Lab (04/25/2024 7:13 AM EST) Tacrolimus, Highly Sensitive 5.5 [facility] Blood Structure of peripheral vein / Unknown 04/25/2024 7:13 AM EST us Dylan Phelps MD LAB BLOOD ORDERABLES Final Re sult [facility] [address] [place] [address] * CT Chest W Contrast (11/05/2023 4:35 [...] obtain the completed interpretation. ? Workstation ID: [id number] Up-to-date CT equipment and radiation dose reduction techniques were employed. CTDIvol: 3.1 - 23.9 mGy. DLP: 2643 mGy-cm. ??The following accession numbers are related to this dose report [id number]: [id number] Narrative 11/19/2023 3:36 PM EDT Indication: ??58 [...] the spine. ??Bilateral gynecomastia. Resulting Agency Comment [id number] Procedure Note Natasha Michaud MD - 11/19/2023 [...] possible to obtain thecompleted interpretation. Workstation ID: [id number] Up-to-date CT equipment and radiation dose reduction techniques wereemployed. CTDIvol: 3.1 - 23.9 mGy. DLP: 2643 mGy-cm. The followingaccession numbers are related to this dose report [id number]: [id number] Dylan Phelps MD IM CT PROCEDURES Final Resul t * (ABNORMAL) Basic Metabolic Panel (11/15/2022 3:07 AM EDT) NA 135 135 - 145 mmol/L 11/15/2022 4:09 AM EDT [facility] K 4.6 3.5 - 5.3 mmol/L 11/15/2022 4:09 AM EDT [facility] Cl 103 97 - 110 mmol/L 11/15/2022 4:09 AM EDT [facility] CO2 24 24 - 32 mmol/L 11/15/2022 4:09 AM EDT [facility] BUN 27(H) 7 - 23 mg/dL 11/15/2022 4:09 AM EDT [facility] Creatinine 1.05 0.60 - 1.30 mg/dL 11/15/2022 4:09 AM EDT [email or web address] Glucose 268(H) 70 - 99 mg/dL 11/15/2022 4:09 AM EDT [facility] Calcium 8.8 8.7 - 10.7 mg/dL 11/15/2022 4:09 AM EDT [facility] Anion Gap 8 5 - 15 11/15/2022 4:09 AM EDT [facility] eGFR 82 >=60 mL/min/1. 73m2 11/15/2022 4:09 AM EDT [facility] Comment:The estimated glomer ular [...] LAB BLOOD ORDERABLES Final Re sult [facility] [address] [place] [address], * Microalbumin, Random Urine with Creatinine (05/17/2021 11:35 AM EST) Microalbumin, Urine 1.1 mg/dL 05/17/2021 12:34 PM EST [facility] Creatinine, Urine 97 22 - 328 mg/dL 05/17/2021 12:34 PM EST [facility] Microalb/Creat Ratio, Random Urine 11.3 <30.0 mcg/mgCr 05/17/2021 12:34 PM EST [facility] Comment: Microalbumin Reference Range: Normal ? <30 mcg/mg Creatinine Microalbuminuria ? 30-300 mcg/mg Creatinine Clinical Albuminuria >300 mcg/mg Creatinine Reference: ADA Guideline. Diabetes Care. 2004;27 (suppl 1) Urine Voided urine specimen / Unknown Non-Blood Collection / Unknown 05/17/2021 11:35 AM EST 05/17/2021 12:01 PM EST us Angelita Villa MD LAB URINE ORDERABLES Final Resul t [facility] [address] [place] [address], * (ABNORMAL) Hemoglobin A1c (05/17/2021 11:31 AM EST) Hemoglobin A1C 7.7(H) <5.7 % of total Hgb 05/18/2021 2:37 AM [facility] Comment: For someone without known diabetes, a [...] (MG/DL) 174 mg/dL 05/18/2021 2:37 AM EST [email or web address] eAG (MMOL/L) 9.7 mmol/L 05/18/2021 2:37 AM EST [email or web address] Blood Structure of peripheral vein / Unknown Venipuncture / Unknown 05/17/2021 11:31 AM EST 05/17/2021 11:40 AM EST Narrative [facility] - 05/18/2021 2:37 AM EST [facility] Received Date: us Angelita Villa MD LAB BLOOD ORDERABLES Final Resul t [facility] [address], [place] [address], [place] [phone] [employer] [address], [place] [address], [place] [phone] * CT Abdomen Pelvis with Contrast (05/05/2020 5:27 PM EST) Anatomical Region Laterality Modality Body Computed Tomogra phy 05/06/2020 8:40 AM EST Impressions 05/06/2020 8:50 AM EST Small fluid pocket between the incision and transverse colon which may represent developing adhesions. Recommend correlation for any signs of infection in the incision on exam. Otherwise, no CT findings that might explain patient's fever. [id number] Narrative 05/06/2020 8:50 AM EST EXAMINATION: CT [...] no CT findings that mightexplain patient's fever. [id number] [facility] Shanika LONG [facility] CT PROCEDURES Final Result * Hepatitis C RNA, Quantitative, PCR (09/09/2019 11:52 AM EDT) Hcv RNA, Quantitative Real Time PCR <15 NOT DETECTED NOT DETECTED IU/mL 09/14/2019 5:38 PM EDT [facility] Hepatitis C Quantitative PCR Log IU/mL <1.18 NOT DETECTED NOT DETECTED Log IU/mL 09/14/2019 5:38 PM EDT [employer] [facility] Comment: This test was performed using Real-Time Polymerase Chain Reaction. Reportable Range: 15 IU/mL to 100,000,000 IU/mL (1.18 Log IU/mL to 8.00 Log IU/mL). ?? The analytical performance characteristics of this assay have been determined by [email or web address]. The modifications have not been cleared or approved by the FDA. This assay has been validated pursuant to the CLIA regulations and is used for clinical purposes. ?? For more information on this test, go to: http://education.[employer]/faq/WBL72s7 (This link is being provided for informational/ educational purposes only.) Blood Structure of peripheral vein / Unknown Venipuncture / Unknown 09/09/2019 11:52 AM EDT 09/09/2019 12:07 PM EDT Narrative [facility] - 09/14/2019 5:38 PM EDT [facility] Received Date: us Cyndi Pereira MD LAB BLOOD ORDERAB LES Final Result [facility] [address], [place] [address], [employer] [facility] [address] [facility] [address], [place] [address], [place] [phone] from Last 3 Months or Most Recently Relevant to Health Maintenance Insurance [facility] [place] [id number] [facility] [facility] Advance Directives Documents on File Type Date Recorded Patient Poly Area Supervisor Expl anation Health Care Proxy 02/05/2019 [...] Jon Son Health Care Agent Care Teams Drawing Instructor Relationship Specialty Start Date End Date Agustin Mix [address] [place] [phone] PCP - General Internal Medicine 04/15/17
--- OUTSIDE RECORDS SUMMARY | 2024-07-20 08:20 | XMS_ITS | Encounter Summary ---
Author Organization [employer] [employer] Address [address] [place] [address] [address] [place] [address] Care Team Providers Care Link Trainer Teacher Name Role Phone Agustin Marrero MD Primary Care Provide r Reason for Visit * Reason Comments Med Refill Encounter Details Date Type Department Care Team ([facility] st Contact Info) Description 06/04/2023 Refill [facility] [address] [place], [place] [phone] Natasha Nguyen MD [address] [employer], [place] [phone] Gastroesophageal reflux disease, unspecified whether esophagitis present [...] 08/26/2024 9:00 AM EDT Clinical Support [facility] [address] [place] [address] Shwetha Collado RN [address] [place] [address] 11/16/2024 10:00 AM EDT Office Visit [facility] [address] [place] [address] Paco, Catherine [address] [place] [address] documented as of this encounter Visit Diagnoses Diagnosis Gastroesophageal reflux disease, unspecified whether esophagitis present documented in this encounter Care Teams Link Trainer Teacher Relationship Specialty Start Date End Date Agustin Marrero MD [address] [place] [address] PCP - General Internal Medicine 01/25/14 [facility] 06/13/16 documented as of this encounter
--- OUTSIDE RECORDS SUMMARY | 2024-07-20 08:20 | XMS_ITS ---
Author Organization [facility] Reji khan Holland Address [address] [facility] [place] [address] Care Team Providers Care Dispensing Optician Apprentice Name Role Phone Nura Connelly MD, Agustin Primary Care Provide r Unavailable Yovanny Long Unavailable [phone] REASON FOR VISIT Last Visit PCP 03/2024, At Risk Foot Care Medications Medication SIG (Take, Route, Frequency, Duration) Notes Start Date End Date Status Tacrolimus 1 MG as directed Orally Active Vitamin D3 427529 UNIT/GM as directed Active Omeprazole 20 MG [...] disorder associated with type II diabetes mellitus (781701413) Type 2 diabetes mellitus with other diabetic neurological complication (E11.49) Active confirmed Vital Signs Height 5ft 7 in in 06/17/2024 Weight 205 lbs 06/17/2024 BMI 32.1 kg/m2 06/17/2024 Blood pressure systolic 134 mm Hg 06/17/19 25 Blood pressure diastolic 81 mm Hg 025 Heart Rate 68 /min 06/17/2024 Procedures Procedure Date Ordered Date Performed Result Body Sit e 62503-AJWDJFN NAIL, 6 OR MORE 06/17/2024 N/A Encounters Encounter Location Date Provider Diagnosis [facility] [address] [address] 06/17/2024 Yovanny Long Onychomycosis B35.1 and Type 2 diabetes mellitus with other diabetic neurological complication E11.49 Assessments Encounter Date Diagnosis (ICD Code) Assessment Notes Treatment Notes Treatment Clinical Notes Section Notes 06/17/2024 Onychomycosis (ICD-10 - B35.1) 06/17/2024 Type 2 diabetes mellitus with other diabetic neurological complication (ICD-10 - E11.49) 06/17/2024 Other Application of Diggins-Soothe skin lotion to his feet Plan Of Treatment Treatment Notes Assessment Notes Other Application of Diggins -Soothe skin lotion to his feet Pending Test Test Name Order Date 30209-DUNSOHG NAIL, 6 OR MORE 06/17/2024 Next Appt Details Follow Up: 2 Months, Reason: Provider Name:Sun kenney, 08/29/2024 11:00:00 AM, [address] [place] [address], [place], [address], Procedure Notes * Category Sub-Category Detail Notes [...] use of a nail nipper and/or dremel-type jig grinder set up operator, to a more viable healthy nail plate or bed tissue TA, T1, T2, T3, T4, T5, T6, T7, T8, T9, Silver nitrate used for any petechial bleeding as necessary. Definitive antifungal treatment options have been reviewed and discussed with the patient. The patient chooses, no pharmaceutical tx - 92575 Progress Notes * Edward JONDOB:[birth year] (59 yo M)Acc No.[id number]:06/17/2024 Progress Note Patient:?Salome JON o Provider:?Yovanny Long D.P.M. :1965???Age:59 Y???Sex:Male New e:06/17/2024 Address:[address] [place] [address] [place], [id number] Pcp:Agustin Connelly MD Subjective: * Chief Complaints: [...] MG Capsule as directed Orally Vitamin D3 174520 UNIT/GM Powder as directed Losartan Potassium 25 [...] Capsule as directed Orally Taking Vitamin D3 140668 UNIT/GM Powder as directed Taking Losartan Potassium [...] Plan: * Treatment: 2.?Others? Notes: Application of Diggins-Soothe skin lotion to his feet?? * Procedures:?Debride [...] use of a nail nipper and/or dremel-type jig grinder set up operator, to a more viable healthy nail plate or bed tissue TA, T1, T2, T3, T4, T5, T6, T7, T8, T9, Silver nitrate used for any petechial bleeding as necessary. Definitive antifungal treatment options have been reviewed and discussed with the patient. The patient chooses, no pharmaceutical tx - 85502.? * Procedure Codes:?26212 DEBRI DE NAIL, 6 OR MORE * [...] Long D.P.M. Date:?05/22 Generated for Francisco reagan/Eloina/Samantha on:?07/20/2024 08:19 AM EDT History and Physical Notes * [...] masses. The interspaces are clear , Orthopedic FOOTWEAR EVALUATION: Shoe gear w ere inspected and noted to be worn, but [...] iminished [facility]ensory [facility] Pedal pulse taking performed:: 2+ ORIENTED: [...]
--- OUTSIDE RECORDS SUMMARY | 2024-07-20 08:20 | XMS_ITS | Encounter Summary ---
Author Organization [employer] [facility] Address [address] [place] [address] 7t [place] [address] Care Team Providers Care Relationship Associate Name Role Phone Agustin Marrero MD Primary Care Provide r Reason for Visit * Reason Onset Date Comments Med Refill 12/15/2022 Encounter Details Date Type Department Care Team ([facility] st Contact Info) Description 12/15/2022 Telephone [facility] MEDICINE [address] [place], [place] [phone] Agustin Marrero MD [address] [place] [address] Med Refill Social History Tobacco Use Types [...] Description 08/26/2024 9:00 AM EDT Clinical Support [facility] MEDICINE [address] [place] [address] Shwetha Collado, KATALINA [address] [place] [address] 11/16/2024 10:00 AM EDT Office Visit [facility] ADULT DENTAL [address] [place] [address] Catherine Antonio [address] [place] [address] documented as of this encounter Visit Diagnoses Not on filedocumented in this encounter Care Teams Relationship Associate Relationship Specialty Start Date End Date Agustin Marrero MD [address] [place] [address] PCP - General Internal Medicine 01/25/14 [facility] 06/13/16 documented as of this encounter
--- OUTSIDE RECORDS SUMMARY | 2024-07-20 08:20 | XMS_ITS | Encounter Summary ---
Author Organization [employer] Address [address] [place] [address] 7t [place] [address] Care Team Providers Care Pump Service Supervisor Name Role Phone Agustin Marrero MD Primary Care Provide r Reason for Visit * Reason Comments Med Refill Encounter Details Date Type Department Care Team ([facility] st Contact Info) Description 05/13/2024 Refill [facility] MEDICINE [address] [place], [place] [phone] Agustin Marrero MD 230 [place] [address] Social History Tobacco Use Types Packs/Day Years [...] Description 08/26/2024 9:00 AM EDT Clinical Support [facility] MEDICINE 230 [place] [address] Shwetha Collado, KATALINA [address] [place] [address] 11/16/2024 10:00 AM EDT Office Visit [facility] ADULT DENTAL 230 [place] [address] Paco, Catherine 230 [place] [address] documented as of this encounter Visit Diagnoses Not on filedocumented in this encounter Additional Health Concerns Assessment Noted Time PHQ-9 Depression Total Score: 0 12/03/19 24 10:31 AM EDT documented as of this encounter Care Teams Pump Service Supervisor Relationship Specialty Start Date End Date Agustin Marrero MD [address] [place] [address] PCP - General Internal Medicine 01/25/14 [facility] 06/13/16 documented as of this encounter
[2024-07-20 08:27] LABS: MANUAL DIFF FLAG NO
[2024-07-20 09:11] LABS: Alanine Aminotransferase 38 U/L (0-40); Albumin Level 4.4 g/dL (3.5-5.0); Alkaline Phosphatase 105 U/L (39-117); Anion Gap 10 (12-20); Aspartate Amino Transferase 29 U/L (5-37); Bilirubin Total 0.7 mg/dL (0.0-1.0); Blood Urea Nitrogen 17 mg/dL (9-16); Calcium 9.5 mg/dL (8.4-10.2); Carbon Dioxide 25 mmol/L (22-29); Chloride 109 mmol/L (96-108); Estimated Glomerular Filt Rate > 60; Glucose Random 143 mg/dL (60-115); Magnesium 1.7 mg/dL (1.6-2.6); Potassium 4.5 mmol/L (3.3-5.1); Sodium 139 mmol/L (135-145); Total Protein 7.1 g/dL (6.5-8.0)
[2024-07-20 09:37] LABS: Basophils Percent Auto 0.8 % (0-2); Eosinophils Absolute Auto 0.1 X10*3/uL (0.0-0.4); Eosinophils Percent Auto 1.2 % (0-4); Hematocrit 40.7 % (42.0-52.0); Hemoglobin 14.5 g/dl (14.0-18.0); Imm Gran Abs Auto 0.01 X10*3/uL (0.00-0.03); Imm Gran Pct Auto 0.2 % (0.0-0.4); Lymphocytes Absolute Auto 1.2 X10*3/uL (1.2-4.9); Mean Corpuscular HGB Conc 35.6 g/dl (31.0-36.0); Mean Corpuscular Hemoglobin 29.7 pg (27.0-33.0); Mean Corpuscular Volume 83.2 fL (80.0-98.0); Mean Platelet Volume 10.9 fL (9.4-12.4); Monocytes Absolute Auto 0.5 X10*3/uL (0.1-1.2); Monocytes Percent Auto 10.2 % (2-11); Neutrophils Absolute Auto 3.3 x10*3/uL (2.0-8.3); Neutrophils Percent Auto 63.6 % (45-73); Platelet Count 132 X10*3/uL (160-400); Red Blood Count 4.89 X10*6/uL (4.60-5.80); White Blood Count 5.1 X10*3/uL (4.8-10.8)
[2024-07-21 11:54] LABS: Tacrolimus Prograf 3.4 mcg/L
[2024-07-25 12:28] LABS: Alpha Fetoprotein 1.5 ng/mL (<6.1)
== END 2024-07-20 08:08 | disposition home or self-care (01) ==
LOC: HO.LABR 08:07
PROVIDERS: Internal Medicine; PCP Internal Medicine
DX: Z94.4 Liver transplant status (principal); Z79.899 Other long term (current) drug therapy; Z85.05 Personal history of malignant neoplasm of liver
CPT/HCPCS: 36415; 80053; 80197; 82105; 83735; 85025

== ENCOUNTER 2024-08-18 06:54 | Outpatient (REF) | payer OTHER, SELFPAY ==
--- OUTSIDE RECORDS SUMMARY | 2024-08-18 06:56 | XMS_ITS | Encounter Summary ---
Author Organization [employer] Address [address] [place] [address] 7t [place] [address] Care Team Providers Care Farm Boss Name Role Phone Agustin Marrero MD Primary Care Provide r Reason for Visit * Reason Comments Med Refill Encounter Details Date Type Department Care Team ([facility] st Contact Info) Description 12/24/2023 Refill [facility] MEDICINE 230 [place], [place] [phone] Agustin Marrero MD 230 [place] [address] Chronic midline low back pain without sciatica [...] Clinical Support [facility] MEDICINE [address] [place] [address] Shwetha Collado, KATALINA 505 [place] [address] 11/01/2024 9:15 AM EDT Office Visit [facility] MEDICINE [address] [place] [address] Agustin Marrero MD [address] [place] [address] 11/16/2024 10:00 AM EDT Office Visit [facility] ADULT DENTAL [address] [place] [address] Catherine Antonio 230 [place] [address] documented as of this encounter Visit Diagnoses Diagnosis Chronic midline low back pain without sciatica documented in this encounter Additional Health Concerns Assessment Noted Time PHQ-9 Depression Total Score: 0 12/03/19 24 10:31 AM EDT documented as of this encounter Care Teams Farm Boss Relationship Specialty Start Date End Date Agustin Marrero MD [address] [place] [address], [place] [address] PCP - General Internal Medicine 01/25/14 [facility] 06/13/16 documented as of this encounter
--- OUTSIDE RECORDS SUMMARY | 2024-08-18 06:56 | XMS_ITS | Encounter Summary ---
Author Organization [employer] Address [address] [place] [address] 7t [place] [address] Care Team Providers Care Client Executive Name Role Phone Agustin Marerro MD Primary Care Provide r Reason for Visit * Reason Comments Med Refill Encounter Details Date Type Department Care Team ([facility] st Contact Info) Description 11/02/2023 Refill [facility] MEDICINE [address] [place], [place] [phone] Lela Wu MD 230 [place], [place] [phone] Primary insomnia Social History Tobacco Use Types [...] Description 08/26/2024 9:00 AM EDT Clinical Support [facility] MEDICINE [address] [place] [address] Shwetha Collado RN 505 [place] [address] 11/01/2024 9:15 AM EDT Office Visit [facility] MEDICINE [address] [place] [address] Agustin Marrero MD [address] [place] [address] 11/16/2024 10:00 AM EDT Office Visit [facility] ADULT DENTAL [address] [place] [place] [address] Catherine Antonio [address] [place] [address] documented as of this encounter Visit Diagnoses Diagnosis Primary insomnia Persistent disorder of initiating or maintaining sleep documented in this encounter Additional Health Concerns Assessment Noted Time PHQ-9 Depression Total Score: 5 06/16/19 24 9:35 AM EST documented as of this encounter Care Teams Client Executive Relationship Specialty Start Date End Date Agustin Marrero MD [address] [place] [address] PCP - General Internal Medicine 01/25/14 [facility] 06/13/16 documented as of this encounter
--- OUTSIDE RECORDS SUMMARY | 2024-08-18 06:56 | XMS_ITS | Encounter Summary ---
Author Organization [employer] Address [address] [facility] 7t [place] [address] Care Team Providers Care Etiquette Teacher Name Role Phone Agustin Marrero MD Primary Care Provide r Encounter Details Date Type Department Care Team (Late st Contact Info) Description 12/24/2023 Telephone [facility] MEDICINE 230 [place], [place] [phone] Agustin Marrero MD 230 [place], [place] [phone] Social History Tobacco Use Types Packs/Day Years [...] Description 08/26/2024 9:00 AM EDT Clinical Support [facility] MEDICINE [address] [place] [address] Shwetha Collado, KATALINA 505 [place] [address] 11/01/2024 9:15 AM EDT Office Visit [facility] MEDICINE [address] [place] [address] Agustin Marrero MD [address] [place] [address] 11/16/2024 10:00 AM EDT Office Visit [facility] ADULT DENTAL [address] [place] [address] Catherine Antonio [address] [place] [address] documented as of this encounter Visit Diagnoses Not on filedocumented in this encounter Additional Health Concerns Assessment Noted Time PHQ-9 Depression Total Score: 0 12/03/19 24 10:31 AM EDT documented as of this encounter Care Teams Etiquette Teacher Relationship Specialty Start Date End Date Agustin Marrero MD [address] [place] [address] PCP - General Internal Medicine 01/25/14 [facility] 06/13/16 documented as of this encounter
--- OUTSIDE RECORDS SUMMARY | 2024-08-18 06:56 | XMS_ITS | Encounter Summary ---
Author Organization [employer] Address [address] [place] [address] 7t [place] [address] Care Team Providers Care Plan Checker Name Role Phone Agustin Marrero MD Primary Care Provide r Reason for Visit * Reason Comments Med Refill Encounter Details Date Type Department Care Team ([facility] st Contact Info) Description 2024 Refill [facility] MEDICINE [address] [place], [place] [phone] Agustin Marrero MD [address] [place] [address] Social History Tobacco Use Types Packs/Day Years [...] Description 08/26/2024 9:00 AM EDT Clinical Support [facility] MEDICINE [address] [place] [address] Shwetha Collado, KATALINA 505 [place] [address] 11/01/2024 9:15 AM EDT Office Visit [facility] MEDICINE [address] [place] [address] Agustin Marrero MD [address] [place] [address] 11/16/2024 10:00 AM EDT Office Visit [facility] ADULT DENTAL [address] [place] [address] Catherine Antonio 230 [place] [address] documented as of this encounter Visit Diagnoses Not on filedocumented in this encounter Additional Health Concerns Assessment Noted Time PHQ-9 Depression Total Score: 0 12/03/19 24 10:31 AM EDT documented as of this encounter Care Teams Plan Checker Relationship Specialty Start Date End Date Agustin Marrero MD [address] [place] [address] PCP - General Internal Medicine 01/25/14 [place] [facility] 06/13/16 documented as of this encounter
--- OUTSIDE RECORDS SUMMARY | 2024-08-18 06:57 | XMS_ITS | Encounter Summary ---
Author Organization [facility] Address [address] [place] [address] Care Team Providers Care Bessemer Converter Operator Name Role Phone Agustin Mix Primary Care Provider + Encounter Details Date Type Department Care Team (Late st Contact Info) Description 01/01/2021 Orders Only [facility] Nuclear Medicine [address] [place] [address] Sreedhar Sotelo MD [address] [place], [place] [phone] Social History Tobacco Use Types Packs/Day Years [...] Care Team (Late st Contact Info) Description 02/06/2025 9:30 AM EDT Follow-Up [facility] Liver Transplant Services [address] [place] [address] Dylan Phelps MD [address] [place] [address] documented as of this encounter Visit Diagnoses Not on filedocumented in this encounter Care Teams Bessemer Converter Operator Relationship Specialty Start Date End Date Agustin Mix [address] [place] [address] PCP - General Internal Medicine 04/15/17 documented as of this encounter
--- OUTSIDE RECORDS SUMMARY | 2024-08-18 06:57 | XMS_ITS | Encounter Summary ---
Author Organization [employer] Address [address] [place] [address] 7t [place] [address] Care Team Providers Care Founder Chairman And Chief Creative Officer Name Role Phone Agustin Marrero MD Primary Care Provide r Reason for Visit * Reason Onset Date Comments Med Refill 03/01/2024 Encounter Details Date Type Department Care Team ([facility] st Contact Info) Description 03/01/2024 Telephone [facility] MEDICINE [address] [place], [place] [phone] Agustin Marrero MD [address] [place] [address] Med Refill Social History Tobacco Use Types [...] 03/01/2024 2:24 PM EST Received fax from [facility] requesting script clarification need directions. * Telephone Encounter - Manjeet Mclaughlin - 03/01/2024 2:21 PM EST TC from pt requesting medication refill. Medications needing refill : traMADol (Ultram) 50 MG table To be sent to: [facility]/pharmacy #[id number] documented in this encounter Plan of Treatment Upcoming Encounters Date Type Department Care Team (Late st Contact Info) Description 08/26/2024 9:00 AM EDT Clinical Support [facility] MEDICINE [address] [place] [address] Shwetha Collado RN [address] [place] [address] 11/01/2024 9:15 AM EDT Office Visit [facility] MEDICINE [address] [place] [address] Agustin Marrero MD [address] [place] [address] [place] [address] 11/16/2024 10:00 AM EDT Office Visit [facility] ADULT DENTAL [address] [place], [place] [phone] Catherine Antonio [address] [place], [place] [phone] documented as of this encounter Visit Diagnoses Not on filedocumented in this encounter Additional Health Concerns Assessment Noted Time PHQ-9 Depression Total Score: 0 12/03/19 10:31 AM EDT documented as of this encounter Care Teams Founder Chairman And Chief Creative Officer Relationship Specialty Start Date End Date Agustin Marrero MD 230 [place], [place] [phone] PCP - General Internal Medicine 01/25/14 [facility] 06/13/16 documented as of this encounter
--- OUTSIDE RECORDS SUMMARY | 2024-08-18 06:57 | XMS_ITS | Encounter Summary ---
Author Organization [employer] [facility] Address [address] [place] [address] 7t [place] [address] Care Team Providers Care Asw Specialist Name Role Phone Agustin Marrero MD Primary Care Provide r Encounter Details Date Type Department Care Team (Latest Contact Info) Description 06/18/2021 Abstract [facility] CONVERSIONS Dental, Provider, DDS Social [...] Care Team ( st Contact Info) Description 08/26/2024 9:00 AM EDT Clinical Support [facility] MEDICINE [address] [place] [address] Shwetha Collado RN [address] [place] [address] 11/01/2024 9:15 AM EDT Office Visit [facility] MEDICINE [address] [place] [address] Agustin Marrero MD 230 [place] [address] 11/16/2024 10:00 AM EDT Office Visit [facility] ADULT DENTAL [address] [place] [address] Catherine Antonio [address] [place] [address] documented as of this encounter Visit Diagnoses Not on filedocumented in this encounter Care Teams Asw Specialist Relationship Specialty Start Date End Date Agustin Marrero MD [address] [place] [address] PCP - General Internal Medicine 01/25/14 [facility] 06/13/16 documented as of this encounter
--- OUTSIDE RECORDS SUMMARY | 2024-08-18 06:57 | XMS_ITS | Encounter Summary ---
Author Organization [facility] Address [address] [place] [address] Care Team Providers Care Tuck Pointer Helper Name Role Phone Agustin Mix Primary Care Provider + Encounter Details Date Type Department Care Team (Late st Contact Info) Description 07/22/2024 Results Follow-Up [facility] Transplant Department [address] [place] [address] Erika Bonds RN Social History Tobacco Use Types Packs/Day [...] Info) Description 02/06/2025 9:30 AM EDT Follow-Up [facility] Liver Transplant Services [address] [place], [place] [phone] Dylan Phelps MD [address] [place] [address] documented as of this encounter Visit Diagnoses Not on filedocumented in this encounter Care Teams Tuck Pointer Helper Relationship Specialty Start Date End Date Agustin Mix [address] [place] [address] PCP - General Internal Medicine 04/15/17 documented as of this encounter
--- OUTSIDE RECORDS SUMMARY | 2024-08-18 06:57 | XMS_ITS | Clinical Summary ---
Author Organization [employer] Address [address] [place] [address] 7t [place] [address] Care Team Providers Care Editor Farm Journal Name Role Phone Agustin Marrero MD Primary Care Provide r Allergies No known active allergies Medications NovoLOG FLEXPEN 100 UNIT/ML penIndications:Ty pe 2 diabetes mellitus without complication, with long-term current use of insulin ([facility]) Use Insulin as per sliding scale TID (BG 150-200mg/dL: 10 units, 201-250 : 12 units, 251-300: 14 units, 301-350: 16 units, 351-400 18 units, >400 20 units 15 mL Active Blood Glucose Monitoring Suppl (iWelcomeStyle [place] Lite) w/Device kit TEST 1 TIMES BY INTRADERMAL ROUTE EVERY DAY Active Continuous Blood Gluc Wildlife Manager (FreeStyle Arvin 2 Franklin) device Active ferrous sulfate 325 (65 Fe) [...] OLINDA TABLETA TODOS LOS D CON LA CHEMISTRY ACCOUNT MANAGER Active naloxone (Narcan) 4 mg/0.1 mL nasal [...] complication, with long-term current use of insulin ([facility]) USE 1 EACH DIRECTED [...] complication, with long-term current use of insulin ([facility]) USE DIRECTED EVERY 14 [...] complication, with long-term current use of insulin ([facility]) TAKE 1 TABLET BY [...] :Chronic midline low back pain without sciatica TOME OLINDA TABLETA POR VIA ORAL CADA OCHO HORAS PARA DOLOR CAROL CUANDO SEA NECESARIO 84 tablet 025 Active zolpidem (Ambien) 10 [...] not round please 84 tablet 025 2024 Discontinued zolpidem (Ambien) 10 MG tabletIndications :Primary insomnia TOME OLINDA TABLETA POR VIA ORAL TODOS LOS QUINONES AL ACOSTARSE CUANDO SEA NECESARIO 30 tablet 025 2024 Discontinued Active Problems Problem Noted Date Diagnosed Date [...] midline low back pain without sciatica Last [employer] Agreement: 09/01/23 Normal oral exam 12/17/2023 Class [...] for mildly dilated CBD. ERCP 11/21/2022 at [facility] showed single severe biliary stricture [...] CBD. 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 The stricture was post-surgical. A biliary sphinterotomy was performed. A temporary stent was placed in the CBP They recommended to repeat ERCP in 3 months to remove stent. Pt is already scheduled for 02/20/2023 for ENDOSCOPIC RETROGRADE CHOLANGIOPANCREATOGRAPHY WITH REMOVAL OF FOREIGN BODY(S)/STENT(S)/PANCREATIC DUCT(S) WITH POSSIBLE MODERATE SEDATION [43982 (CPT??)] Partial edentulism 01/14/2023 Hospital discharge follow-up [...] CBD. Pt is s/p ERCP 11/21/2022 at [facility] Impression: A single severe biliary [...] ERCP tomorrow -serum CMV PCR -follow up [facility] -follow up blood cultures Chronic abdominal pain [...] local wound injections. He was seen by medical language specialist at [facility] who discussed that he needed [...] local wound injections. He was seen by medical language specialist at [facility] who discussed that he needed [...] was refer to the Pain Clinic at [facility] he has an appointment for [...] >400 20 units He was discharged from [facility] diabetes clinic due to non compliance. He isunder the care of [facility] given that he is a liver transplant patient, last seen 2024. Hgb A1c 07/05/2024: 7.2 from 7 Eye exam ordered previous visit Microalbumin 04/06/2024 was 68 Foot check risk of zero Pt advised to: adhere to diabetic diet Previous visit pt was referred to [employer] [facility] [place] Plan: continue current regimen [...] >400 20 units He was discharged from [facility] diabetes clinic due to non compliance. He isunder the care of [facility] given that he is a liver transplant patient, last seen 2024. Hgb A1c 04/05/2024: 7 from 7.4 Eye exam ordered previous visit Microalbumin 11/01/2020 was 43 , ordered today Foot check risk of zero Pt advised to: adhere to diabetic diet Previous visit pt was referred to [employer] and [place] Plan: continue current regimen [...] >400 20 units He was discharged from [facility] diabetes clinic due to non compliance. He isunder the care of [facility] given that he is a liver transplant patient, last seen 04/21/2023. Hgb A1c 12/03/2023: 7.4 from 7.1 Eye exam ordered previous visit Microalbumin 11/01/2020 was 43 Foot check risk of zero Pt advised to: adhere to diabetic diet Previous visit pt was referred to [employer] and [place] Plan: continue current regimen [...] >400 20 units He was discharged from [facility] diabetes clinic due to non compliance. He isunder the care of [facility] given that he is a liver transplant patient, last seen 04/21/2023. Hgb A1c 06/16/2023: 7.1 Eye exam ordered previous visit Microalbumin 11/01/2020 was 43 Foot check risk of zero Pt advised to: adhere to diabetic diet Previous visit pt was referred to [employer] and [place] Plan: continue current regimen [...] >400 20 units He was discharged from [facility] diabetes clinic due to non compliance. He is supposed to be under the care of [facility] given that he is a liver transplant patient, last seen 08/01/2021. He had an appointment scheduled in August but he no showed. Today he tells me he will stay at [facility] Hgb A1c 02/12/2023 was 6.7 Eye exam ordered previous visit Microalbumin 11/01/2020 was 43 Foot check risk of zero Pt advised to: adhere to diabetic diet Previous visit pt was referred to [employer] and [place] Plan: continue current regimen [...] >400 20 units He was discharged from [facility] diabetes [facility] due to non compliance. He is supposed to be under the care of [facility] given that he is a liver transplant patient, last seen 08/01/2021. He had an appointment scheduled in August but he no showed. Today he tells me he will stay at [facility] Hgb A1c 09/02/2021 was 6.5 Eye exam ordered previous visit Microalbumin 11/01/2020 was 43 Foot check risk of zero Pt advised to: adhere to diabetic diet Previous visit pt was referred to [employer] and [place] Plan: continue current regimen [...] >400 20 units He was discharged from [facility] diabetes clinic due to non compliance He is now under the care of [facility] given that he is a liver transplant patient, last seen 08/01/2021 Hgb A1c 09/02/2021 was 6.5 Eye exam ordered previous visit Microalbumin 11/01/2020 was 43 Foot check risk of zero Pt advised to: adhere to diabetic diet Previous visit pt was referred to [employer] and [place] Plan: continue current regimen [...] >400 20 units He was discharged from [facility] diabetes clinic due to non compliance He is now under the care of [facility] given that he is a liver transplant patient, last seen 08/01/2021 Hgb A1c 04/22/2021 was 6.2 Eye exam ordered previous visit Microalbumin 11/01/2020 was 43 Foot check risk of zero Pt advised to: adhere to diabetic diet Previous visit pt was referred to [employer] and [place] Plan: continue current regimen [...] the care of the liver clinic at [facility] Assessment & Plan (06/16/2023 9:29 AM EST): Under the care of the liver clinic at [facility] Assessment & Plan (04/22/2022 8:26 AM EST): Pt here for a f/u 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 was found to have elevated LFT's (AP/AST/ALT 710/141/254) during routine outpatient blood work 05/01/2020 and was referred to [facility] where his LFT's were 608/77/177 upon [...] Encounters Date Type Department Care Team Description 08/15/[address] [address] Agustin Marrero MD 08/05/[address] [address] Agustin Marrero MD Chronic midline low back pain without sciatica; Primary insomnia 07/21/2024 Telephone [facility] [address] [place] [address] Agustin Marrero MD 07/05/2024 10:00 AM EDT Office Visit [address] [address] Agustin Marrero MD Other male erectile dysfunction (Primary Dx); Type 2 diabetes mellitus without complication, with long-term current use of insulin ([facility]); Essential hypertension; Pure hypercholesterolemia; S/P liver transplant ([facility]); Immunosuppression ([facility]); Class 1 obesity due to excess calories with serious comorbidity and body mass index (BMI) of 32.0 to 32.9 in adult; Dietary counseling; Exercise counseling; Gynecomastia; Preventative health care; Chronic midline low back pain without sciatica; Primary insomnia 07/05/2024 Travel 07/02/[address] [address] Agustin Marrero MD Gastroesophageal reflux disease, unspecified whether esophagitis present 06/29/[address] [address] Agustin Marrero MD Chart Prep 06/24/2024 9:00 AM EST Clinical Support [address] [address] Shwetha Collado, RN Long-term current use of opiate analgesic 06/24/2024 Telephone [facility] [address] [place] [address] Shwetha Collado RN 06/24/2024 Travel 06/20/2024 Refill [facility] [address] [facility] [place] [address] Agustin Marrero MD 06/16/2024 Refill [facility] [address] [place] [address] Agustin Marrero MD Chronic midline low back pain without sciatica 06/07/2024 Travel 06/07/2024 Refill [facility] [address] [place] [address] Agustin Marrero MD Primary insomnia 06/07/2024 Refill [facility] [address] [place] [address] Agustin Marrero MD Chronic midline low back pain without sciatica 05/31/2024 9:00 AM EST Clinical Support [facility] [address] [place] [address] Patricia Harrell RN Chronic midline low back pain without sciatica (Primary Dx) 05/31/2024 Travel from Last 3 Months Immunizations Name Administration [...] Description 08/26/2024 9:00 AM EDT Clinical Support [facility] [address] [place] [address] Shwetha Collado RN [address] [place] [address] 11/01/2024 9:15 AM EDT Office Visit [facility] [address] [place] [address] Agustin Marrero MD [address] [place] [address] 11/16/2024 10:00 AM EDT Office Visit [facility] ADULT DENTAL [address] [place] [address] Catherine Antonio [address] [place] [address] Health Maintenance Due Date Last Done Comments [...] 09/22/2022, Additional history exists Diabetes: Hemoglobin A1C 10/05/2024 025, 04/05/2024, 12/03/2023, Additional history exists Dental [...] 07/05/2024 Hepatitis A Vaccines Completed 07/14/2017, 12/03/19 17 Hepatitis B Vaccines Completed 07/14/2017, 06/01/2017, 01/14/2017, [...] complication, with long-term current use of insulin ([facility]) POCT GLUCOSE Routine 07/05/2024 10:03 AM EDT Type 2 diabetes mellitus without complication, with long-term current use of insulin ([facility]) POCT ZOË-14 URINE DRUG SCREEN Routine 06/24/2024 9:18 AM EST Long-term current use of opiate analgesic POCT ZOË-14 URINE DRUG SCREEN Routine 05/31/2024 1:31 PM EST Chronic midline low back pain without sciatica Full PROPHYLAXIS - ADULT Routine 05/17/2024 10:00 AM EST Dental plaque Dental calculus PERIODIC ORAL EVALUATION - ESTABLISHED PATIENT Routine 05/17/2024 10:00 AM EST ALBUMIN, RANDOM URINE W/CREATININE Routine 04/06/2024 8:10 AM EST Type 2 diabetes mellitus without complication, with long-term current use of insulin ([facility]) LIPID PANEL, STANDARD Routine 04/06/2024 8:10 AM EST Type 2 diabetes mellitus without complication, with long-term current use of insulin ([facility]) BITEWINGS - 4 RADIOGRAPHIC IMAGES Routine 10/13/2023 11:00 AM EDT HM COLONOSCOPY Routine 06/28/2021 from Last 3 Months or Most Recently Relevant to Health Maintenance Results * (ABNORMAL) POCT HGB A1C (07/05/2024 10:03 AM EDT) Hemoglobin A1C 7.2(A) 4.0 - 6.0 % QC Media Lot # [id number] Lot# Expiration Date Blood 07/05/2024 10:0 3 AM EDT us Agustin Connelly MD POINT OF CARE TEST EN TER/EDIT ORDERABLES Final Result * POCT Glucose (07/05/2024 10:03 AM EDT) Glucose Blood, POC 170 60 - 200 mg/dL QC Media Lot # [id number] Lot# Expiration Date Blood Capillary blood specimen / Unknown 07/05/2024 [...] - 06/24/2024 9:18 AM EST .UTOX cup Lot#[id number] Exp. 12/07/25 Internal Pass Control negative AMP, BAR, BUP, BZO, KRISTEL, FTY, MDMA, MET, MOP, MTD, OXY, PCP, TCA, THC. us Agustin Connelly MD POINT OF CARE TEST ENTER/EDIT ORDERABLES Edited Result - Final * (ABNORMAL) Albumin, Random Urine W/Creatinine (04/06/2024 8:10 AM EST) Creatinine, Urine 216.22 mg/dL [facility] Microalbumin Urine 68.0 mg/L H [facility] Microalbum Creatinine Ratio Ur 31.4(H) <30 ug/mg cr [facility] Comment:Albumin/Creatinine R atio Reference Ranges: Normal: < 30 ug/mg creatinine Microalbuminuria: 30 - 300 ug/mg creatinineClinical Albuminuria: > 300 ug/mg creatinine Urine (Urine, Random) 04/06/2024 8:10 AM EST 04/06/2024 11:40 AM EST Agustin Connelly MD LAB URINE ORDERABLES Final Result Performing Organization Address City/[facility]/ZIP Co de Phone Number [facility] [address] [place] [phone] * (ABNORMAL) Lipid Panel, Standard (04/06/2024 8:10 AM EST) Triglycerides 109 <150 mg/dL [facility] Comment:Desirable Triglyceri de: less than 150 mg/dLBorderline High Triglyceride 150-199 mg/dLHigh Triglyceride: 200-499 mg/dLVery High Triglyceride: greater than or equal to 5OO mg/dL Cholesterol 177 <200 mg/dL [facility] Comment:Desirable Cholestero l: less than 200 mg/dLBorderline High Cholesterol: 200-239 mg/dLHigh Cholesterol: greater than 239 mg/dL LDL Cholesterol Calculated 115(H) <100 mg/dL [facility] Comment:Desirable LDL: less than 100 mg/dLNear Optimal/Above Optimal LDL: 110- 129 mg/dLBorderline High LDL: 130-159 mg/dLHigh LDL: 160-189 mg/dLVery High LDL: greater than or equal to 190 mg/dL HDL Cholesterol 41 >40 mg/dL [facility] Comment:Desirable HDL: great er than 40 mg/dL Note: This HDL assay may give artificially low results in patients with liver disease. Blood Venous blood specimen / Unknown 04/06/2024 8:10 AM EST 04/06/2024 11:51 AM EST Agustin Connelly MD LAB BLOOD ORDERABLES Final Result Performing Organization Address City/[facility]/ZIP Co de Phone Number [facility] [address] [place] [phone] * Hm Colonoscopy (06/28/2021) Colonoscopy Normal Normal 06/28/2021 Shanel Chen - 06/28/2021 9:58 AM EST Recommended 3 year follow up per GI notes ( [facility] ) us Historical Provider HEALTH MAINTENANCE Edited Result - Final from Last 3 Months or Most Recently Relevant to Health Maintenance Insurance [facility] < 65 [place] [id number] [facility] MAR[place]N Newman [id number] Care Teams Editor Farm Journal Relationship Specialty Start Date End Date Agustin Marrero MD [address] [place] [address] MARILYN Newman [phone] PCP - General Internal Medicine 01/25/14 [facility] 06/13/16
--- OUTSIDE RECORDS SUMMARY | 2024-08-18 06:57 | XMS_ITS | Encounter Summary ---
Author Organization [facility] Address [address] [place] [address] Care Team Providers Care Media Intern Name Role Phone Agustin Mix Primary Care Provider + Encounter Details Date Type Department Care Team (Late st Contact Info) Description 07/23/2023 Orders Only [facility] Interventional Radiology [address] [place] [address] Pawel Sanchez MD [address] [place], [place] [phone] Social History Tobacco Use Types Packs/Day Years [...] Info) Description 02/06/2025 9:30 AM EDT Follow-Up [facility] Liver Transplant Services [address] [place], [place] [phone] Dylan Phelps MD [address] [place] [address] documented as of this encounter Visit Diagnoses Not on filedocumented in this encounter Care Teams Media Intern Relationship Specialty Start Date End Date Agustin Mix [address] [place] [phone] PCP - General Internal Medicine 04/15/17 documented as of this encounter
--- OUTSIDE RECORDS SUMMARY | 2024-08-18 06:57 | XMS_ITS | Encounter Summary ---
Author Organization [employer] [facility] Address [address] [place] [address] 7t [place] [address] Care Team Providers Care Junior Recruiter Name Role Phone Agustin Marrero MD Primary Care Provide r Encounter Details Date Type Department Care Team (Latest Contact Info) Description 07/16/2020 Abstract [facility] CONVERSIONS Dental, Provider, DDS Social History Tobacco [...] Description 08/26/2024 9:00 AM EDT Clinical Support [facility] [address] [place] [address] Shwetha Collado RN [address] [place] [address] 11/01/2024 9:15 AM EDT Office Visit [facility] [address] [place] [address] Agustin Marrero MD [address] [place] [address] 11/16/2024 10:00 AM EDT Office Visit [facility] ADULT DENTAL [address] [place] [address] Catherine Antonio [address] [place] [address] documented as of this encounter Visit Diagnoses Not on filedocumented in this encounter Care Teams Junior Recruiter Relationship Specialty Start Date End Date Agustin Marrero MD [address] [place] [address] PCP - General Internal Medicine 01/25/14 [facility] 06/13/16 documented as of this encounter
--- OUTSIDE RECORDS SUMMARY | 2024-08-18 06:57 | XMS_ITS | Encounter Summary ---
Author Organization [facility] Address [address] [place] [address] 7t [place] [address] Care Team Providers Care Status Controller Name Role Phone Agustin Marrero MD Primary Care Provide r Reason for Visit * Reason Comments Med Refill Encounter Details Date Type Department Care Team (Late st Contact Info) Description 09/04/2022 Refill [facility] [address] [place] [address] Agustin Marrero MD [address] [place] [address] Social History Tobacco Use Types Packs/Day Years [...] Description 08/26/2024 9:00 AM EDT Clinical Support [facility] [address] [place] [address] Shwetha Collado, RN [address] [place] [address] 11/01/2024 9:15 AM EDT Office Visit [facility] [address] [place] [address] Agustin Marrero MD [address] [place] [address] 11/16/2024 10:00 AM EDT Office Visit [facility] ADULT DENTAL [address] [place] [address] Catherine Antonio [address] [place] [address] documented as of this encounter Visit Diagnoses Not on filedocumented in this encounter Care Teams Status Controller Relationship Specialty Start Date End Date Agustin Marrero MD [address] [place] [address] PCP - General Internal Medicine 01/25/14 [facility] 06/13/16 documented as of this encounter
--- OUTSIDE RECORDS SUMMARY | 2024-08-18 06:57 | XMS_ITS | Encounter Summary ---
Author Organization [employer] Address [address] [place] [address] 7t [place] [address] Care Team Providers Care Tourist Guide Name Role Phone Agustin Marrero MD Primary Care Provide r Reason for Visit * Reason Comments Med Refill Encounter Details Date Type Department Care Team ([facility] st Contact Info) Description 10/28/2023 Refill [facility] [address] [place], [place] [phone] Lela Wu MD [address] [place], [place] [phone] Primary insomnia Social History Tobacco Use Types [...] Description 08/26/2024 9:00 AM EDT Clinical Support [facility] [address] [place] [address] Shwetha Collado RN [address] [place] [address] 11/01/2024 9:15 AM EDT Office Visit [facility] [address] [place] [address] Agustin Marrero MD [address] [place] [address] 11/16/2024 10:00 AM EDT Office Visit [facility] [address] [place] [phone] Catherine Antonio [address] [place] [address] documented as of this encounter Visit Diagnoses Diagnosis Primary insomnia Persistent disorder of initiating or maintaining sleep documented in this encounter Additional Health Concerns Assessment Noted Time PHQ-9 Depression Total Score: 5 06/16/19 24 9:35 AM EST documented as of this encounter Care Teams Tourist Guide Relationship Specialty Start Date End Date Agustin Marrero MD [address] [place] [phone] PCP - General Internal Medicine 01/25/14 [facility] 06/13/16 documented as of this encounter
--- OUTSIDE RECORDS SUMMARY | 2024-08-18 06:57 | XMS_ITS | Encounter Summary ---
Author Organization [facility] Address [address] [place] [address] 7t [place] [address] Care Team Providers Care Shale Processing Technician Name Role Phone Agustin Marrero MD Primary Care Provide r Reason for Visit * Reason Comments Med Refill Encounter Details Date Type Department Care Team (Late st Contact Info) Description 05/14/2022 Refill [facility] [address] [place] [address] Agustin Marrero MD [address] [place] [address] Chronic midline low back pain without sciatica [...] Description 08/26/2024 9:00 AM EDT Clinical Support [facility] [address] [place] [address] Shwetha Collado, RN [address] [place] [address] 11/01/2024 9:15 AM EDT Office Visit [facility] [address] [place] [address] Agustin Marrero MD [address] [place] [address] 11/16/2024 10:00 AM EDT Office Visit [facility] ADULT DENTAL [address] [place] [address] Catherine Antonio [address] [place] [address] documented as of this encounter Visit Diagnoses Diagnosis Chronic midline low back pain without sciatica documented in this encounter Care Teams Shale Processing Technician Relationship Specialty Start Date End Date Agustin Marrero MD [address] [place] [address] PCP - General Internal Medicine 01/25/14 [facility] 06/13/16 documented as of this encounter
--- OUTSIDE RECORDS SUMMARY | 2024-08-18 06:57 | XMS_ITS | Encounter Summary ---
Author Organization [facility] Address [address] [place] [address] 7t [place] [address] Care Team Providers Care Bulb Tester Name Role Phone Agustin Marrero MD Primary Care Provide r Encounter Details Date Type Department Care Team (Latest Contact Info) Description 09/06/2018 Abstract [facility] CON[facility] Dental, Provider, DDS Social [...] AM EDT Clinical Support [facility] [address] [place] [address] Shwetha Collado RN [address] [place] [address] 11/01/2024 9:15 AM EDT Office Visit [facility] [address] [place] [address] Agustin Marrero MD [address] [place] [address] 11/16/2024 10:00 AM EDT Office Visit [facility] ADULT [facility] [address] [place] [address] Catherine Antonio [address] [place] [address] documented as of this encounter Visit Diagnoses Not on filedocumented in this encounter Care Teams Bulb Tester Relationship Specialty Start Date End Date Agustin Marrero MD [address] [place] [address] PCP - General Internal Medicine 01/25/14 [facility] 06/13/16 documented as of this encounter
--- OUTSIDE RECORDS SUMMARY | 2024-08-18 06:57 | XMS_ITS ---
Author Organization [facility] Address [address] [place] [address] Care Team Providers Care Outpatient Psychiatrist Name Role Phone Agustin Mix Primary Care Provider + Transplant Episode Liver Recipient [facility] ([place], [place]) - [facility] Organ Received: Liver Transplanted on 08/09/2019 Marked as Active Follow-up on 08/09/2019 Liver CoordinatorErika Bonds RN Phone: N/A Fax: N/A Email: N/A [place]uevi Organ Diagnosis Organ Primary Contributory Liver Alcoholic [...] Coordinator N/A N/A N/A Dylan Phelps MD Nick Setter [phone] [email or web address] Sarai Diaz Referring Physician [phone] N/A Events Post-Transplant Pre-Transplant Admitted: 08/09/2019 Referred: 09/08/2016 Transplanted: 08/09/2019 Evaluation began: 7 Discharged: 08/25/2019 Committee: 10/24/2016 Center waitlisted: 7 Appointments (07/19/2024 - 09/18/2024) When With Visit Type Description 08/01/2024 Transplant - Colton Phelps Follow Up Benoit shin's cirrhosis (Primary Dx); Hyperkalemia; Encounter for immunosuppression management after liver transplant (HCC); History of hepatocellular carcinoma; Low magnesium level
--- OUTSIDE RECORDS SUMMARY | 2024-08-18 06:57 | XMS_ITS | Encounter Summary ---
Author Organization [employer] Address [address] [place] [address] 7t [place] [address] Care Team Providers Care Corporate Pilot Name Role Phone Agustin Marrero MD Primary Care Provide r Reason for Visit * Reason Onset Date Comments Med Refill 03/01/2024 Encounter Details Date Type Department Care Team ([facility] st Contact Info) Description 03/01/2024 Telephone [facility] MEDICINE [address] [place], [place] [phone] Agustin Marrero MD [address] [place] [address] Med Refill Social History Tobacco Use Types [...] 2:22 PM EST Medication was sent to [facility][id number] on 02/29/24. * Telephone Encounter - Manjeet Mclaughlin - 03/01/2024 2:17 PM EST TC from pt requesting medication refill. Medications needing refill : 1- zolpidem (Ambien) 10 MG tablet To be sent to: [facility]/pharmacy #[id number] documented in this encounter Plan of Treatment Upcoming Encounters Date Type Department Care Team (Late st Contact Info) Description 08/26/2024 9:00 AM EDT Clinical Support [facility] MEDICINE [address] [place] [address] Shwetha Collado RN [address] [place] [address] 11/01/2024 9:15 AM EDT Office Visit [facility] MEDICINE [address] [place] [address] Agustin Marrero MD [address] [place] [address] 11/16/2024 10:00 AM EDT Office Visit [facility] ADULT DENTAL [address] [place], [place] [phone] Catherine Antonio [address] [place], [place] [phone] documented as of this encounter Visit Diagnoses Not on filedocumented in this encounter Additional Health Concerns Assessment Noted Time PHQ-9 Depression Total Score: 0 12/03/19 10:31 AM EDT documented as of this encounter Care Teams Corporate Pilot Relationship Specialty Start Date End Date Agustin Marrero MD [address] [place], [place] [phone] PCP - General Internal Medicine 01/25/14 [facility] 06/13/16 documented as of this encounter
--- OUTSIDE RECORDS SUMMARY | 2024-08-18 06:57 | XMS_ITS | Encounter Summary ---
Author Organization [facility] Address [address] [place] [address] Care Team Providers Care Associate Dean Of Women Name Role Phone Agustin Mix Primary Care Provider + Encounter Details Date Type Department Care Team (Late st Contact Info) Description 01/13/2020 Orders Only [facility] 2 Rad ACT 1 [address] [place] [address] Pawel Sanchez MD [address] [place], [place] [phone] Social History Tobacco Use Types Packs/Day Years [...] Info) Description 02/06/2025 9:30 AM EDT Follow-Up [facility] Liver Transplant Services [address] [place], [place] [phone] Dylan Phelps MD [address] [place] [address] documented as of this encounter Visit Diagnoses Not on filedocumented in this encounter Additional Health Concerns Infection Onset Date Last Indicated Resolved Time COVID-19 - Suspected infection 03/05/2020 03/17/2020 03/17/2020 7:55 PM EST COVID-19 - Confirmed infection 05/01/2020 05/07/2020 06/01/2020 5:06 PM EST COVID-19 - Suspected infection 05/10/2020 05/10/2020 05/24/2020 10:34 PM EST documented as of this encounter Care Teams Associate Dean Of Women Relationship Specialty Start Date End Date Agustin Mix [address] [place] [address] PCP - General Internal Medicine 04/15/17 documented as of this encounter
--- OUTSIDE RECORDS SUMMARY | 2024-08-18 06:57 | XMS_ITS ---
Author Organization [facility] Reji bill [facility]brook Address [address] [facility] [place] [address] Care Team Providers Care Environmental Control Administrator Name Role Phone Nura Connelly MD, Agustin Primary Care Provide r Unavailable Yovanny Long Unavailable [phone] REASON FOR VISIT last visit pcp 12/31/23, [...] Orally Once a day Active Vitamin D3 051026 UNIT/GM as directed Active Losartan Potassium 25 [...] nsmoker Encounters Encounter Location Date Provider Diagnosis [facility] [address] [place] [address] 05/26/2024 Yovanny Long Onychomycosis B35.1 ; Pain [...] Kenney Silver kenney, 08/29/2024 11:00:00 AM, [address] [facility], [place], [address], Procedure Notes * Category Sub-Category Detail Notes [...] of a nail nipper and/or dremel-type grinder operator tool, to a more viable healthy nail plate [...] to maintain effectiveness in symptomatic relief - 18349 Progress Notes * Edward JONDOB:[birth year] (59 yo M)Acc No.[id number]:05/26/2024 Progress Note Patient:?Salome JON Provider:?Yovanny Long D.P.M. :1965???Age:59 Y???Sex:Male New e:05/26/2024 Address:[address] [place], [place] [phone] Pcp:Agustin Connelly MD Subjective: * Chief Complaints: [...] as directed Orally , Taking Vitamin D3 939714 UNIT/GM Powder as directed , Taking Losartan [...] of a nail nipper and/or dremel-type grinder operator tool, to a more viable healthy nail plate [...] to maintain effectiveness in symptomatic relief - 20558.? * Procedure Codes:?66061 SRAVANI THOMAS, 6 OR MORE * Follow Up:?2 Months * Images: * The named appointment provid er may or may not be the originator of this progress note, and it is not deemed complete until electronically signed by the appointment provider. Sign off status: Pending * Provider:?Yovanny Long D.P.M. Date:?09/2024 Generated for Francisco reagan/Eloina/eTransmitting on:?08/18/2024 06:56 AM EDT History and Physical Notes * [...]
--- OUTSIDE RECORDS SUMMARY | 2024-08-18 06:57 | XMS_ITS | Encounter Summary ---
Author Organization [facility] Address [address] [place] [address] 7t [place] [address] Care Team Providers Care Quality Review Specialist Name Role Phone Agustin Marrero MD Primary Care Provide r Encounter Details Date Type Department Care Team (Latest Contact Info) Description 05/23/2019 Abstract [facility] CONVERSIONS Dental, Provider, DDS Social History [...] Description 08/26/2024 9:00 AM EDT Clinical Support [facility] MEDICINE [address] [place] [address] Shwetha Collado RN [address] [place] [address] 11/01/2024 9:15 AM EDT Office Visit [facility] MEDICINE [address] [place] [address] Agustin Marrero MD [address] [place] [address] 11/16/2024 10:00 AM EDT Office Visit [facility] ADULT DENTAL [address] [place] [address] Catherine Antonio [address] [place] [address] documented as of this encounter Visit Diagnoses Not on filedocumented in this encounter Care Teams Quality Review Specialist Relationship Specialty Start Date End Date Agustin Marrero MD [address] [place] [address] PCP - General Internal Medicine 01/25/14 [facility] 06/13/16 documented as of this encounter
--- OUTSIDE RECORDS SUMMARY | 2024-08-18 06:57 | XMS_ITS | Encounter Summary ---
Author Organization [facility] Address [address] [place] [address] Care Team Providers Care Photographer Still Name Role Phone Agustin Mix Primary Care Provider + Encounter Details Date Type Department Care Team (Late st Contact Info) Description 06/28/2020 Telephone [facility] Central Scheduling Department [address] [place] [address] Telephone Intake, Staff Social History Tobacco Use [...] and can be reached at phone number [phone]. Thank you documented in this encounter Plan of Treatment Upcoming Encounters Date Type Department Care Team (Late st Contact Info) Description 02/06/2025 9:30 AM EDT Follow-Up [facility] Liver Transplant Services [address] [place] [phone] Dylan Phelps MD [address] [place], [place] [phone] documented as of this encounter Visit Diagnoses Not on filedocumented in this encounter Care Teams Photographer Still Relationship Specialty Start Date End Date Agustin Mix [address] [place] [address] PCP - General Internal Medicine 04/15/17 documented as of this encounter
--- OUTSIDE RECORDS SUMMARY | 2024-08-18 06:57 | XMS_ITS | Encounter Summary ---
Author Organization [facility] Address [address] [place] [address] 7t [place] [address] Care Team Providers Care Hydraulic Technician Name Role Phone Agustin Marrero MD Primary Care Provide r Reason for Visit * Reason Onset Date Comments Med Refill 10/16/2022 Encounter Details Date Type Department Care Team ([facility] st Contact Info) Description 10/16/2022 Telephone [facility] MEDICINE [address] [place], [place] [phone] Agustin Marrero MD [address] [place] [address] Med Refill Social History Tobacco Use Types [...] 08/26/2024 9:00 AM EDT Clinical Support [facility] MEDICINE [address] [place] [address] Shwetha Collado RN [address] [place] [address] 11/01/2024 9:15 AM EDT Office Visit [facility] MEDICINE [address] [place] [address] Agustin Marrero MD [address] [place] [address] 11/16/2024 10:00 AM EDT Office Visit [facility] ADULT DENTAL [address] [place] [address] Catherine Antonio [address] [place] [address] documented as of this encounter Visit Diagnoses Not on filedocumented in this encounter Care Teams Hydraulic Technician Relationship Specialty Start Date End Date Agustin Marrero MD [address] [place] [address] PCP - General Internal Medicine 01/25/14 [facility] 06/13/16 documented as of this encounter
--- OUTSIDE RECORDS SUMMARY | 2024-08-18 06:57 | XMS_ITS ---
Author Organization [facility] Reji khan Leopoldo Address [address] [facility] [place] [address] Care Team Providers Care Trust Manager Name Role Phone Nura Connelly MD, Agustin Primary Care Provide r Unavailable Yovanny Long Unavailable [phone] REASON FOR VISIT Last Visit PCP 03/2024, At Risk Foot Care Medications Medication SIG (Take, Route, Frequency, Duration) Notes Start Date End Date Status Tacrolimus 1 MG as directed Orally Active Vitamin D3 978362 UNIT/GM as directed Active Omeprazole 20 MG [...] disorder associated with type II diabetes mellitus (717356830) Type 2 diabetes mellitus with other diabetic neurological complication (E11.49) Active confirmed Vital Signs Height 5ft 7 in in 06/17/2024 Weight 205 lbs 06/17/2024 BMI 32.1 kg/m2 06/17/2024 Blood pressure systolic 134 mm Hg 06/17/19 25 Blood pressure diastolic 81 mm Hg 025 Heart Rate 68 /min 06/17/2024 Procedures Procedure Date Ordered Date Performed Result Body Sit e 60240-GQMGAXY NAIL, 6 OR MORE 06/17/2024 N/A Encounters Encounter Location Date Provider Diagnosis [facility] [address] [address] 06/17/2024 Yovanny Long Onychomycosis B35.1 and Type 2 diabetes mellitus with other diabetic neurological complication E11.49 Assessments Encounter Date Diagnosis (ICD Code) Assessment Notes Treatment Notes Treatment Clinical Notes Section Notes 06/17/2024 Onychomycosis (ICD-10 - B35.1) 06/17/2024 Type 2 diabetes mellitus with other diabetic neurological complication (ICD-10 - E11.49) 06/17/2024 Other Application of [place]-Soothe skin lotion to his feet Plan Of Treatment Treatment Notes Assessment Notes Other Application of [place] -Soothe skin lotion to his feet Pending Test Test Name Order Date [id number] NAIL, 6 OR MORE 06/17/2024 Next Appt Details Follow Up: 2 Months, Reason: Provider Name:Sun kenney, 08/29/2024 11:00:00 AM, [address] [place] [address], [place], [address], Procedure Notes * Category Sub-Category Detail Notes [...] use of a nail nipper and/or dremel-type outer diameter grinder tool, to a more viable healthy nail plate or bed tissue TA, T1, T2, T3, T4, T5, T6, T7, T8, T9, Silver nitrate used for any petechial bleeding as necessary. Definitive antifungal treatment options have been reviewed and discussed with the patient. The patient chooses, no pharmaceutical tx - 12114 Progress Notes * Edward JONDOB:[birth year] (59 yo M)Acc No.[id number]:06/17/2024 Progress Note Patient:?Salome JON o Provider:?Yovanny Long D.P.M. :1965???Age:59 Y???Sex:Male New e:06/17/2024 Address:[address] [place] [address] [place], [id number] Pcp:Agustin Connelly MD Subjective: * Chief Complaints: [...] MG Capsule as directed Orally Vitamin D3 434999 UNIT/GM Powder as directed Losartan Potassium 25 [...] Capsule as directed Orally Taking Vitamin D3 227741 UNIT/GM Powder as directed Taking Losartan Potassium [...] Plan: * Treatment: 2.?Others? Notes: Application of [place]-Soothe skin lotion to his feet?? * Procedures:?Debride [...] use of a nail nipper and/or dremel-type outer diameter grinder tool, to a more viable healthy nail plate or bed tissue TA, T1, T2, T3, T4, T5, T6, T7, T8, T9, Silver nitrate used for any petechial bleeding as necessary. Definitive antifungal treatment options have been reviewed and discussed with the patient. The patient chooses, no pharmaceutical tx - 79477.? * Procedure Codes:?78303 DEBRI DE NAIL, 6 OR MORE * [...] Long D.P.M. Date:?05/22 Generated for Francisco reagan/Eloina/Samantha on:?08/18/2024 06:57 AM EDT History and Physical Notes * [...] iminished Sensory and motor testing [facility] normal Pedal pulse taking performed:: 2+ ORIENTED: [...]
--- OUTSIDE RECORDS SUMMARY | 2024-08-18 06:57 | XMS_ITS ---
Author Organization [facility] Address [address] [place] [address] Care Team Providers Care Shot Core Drill Operator Name Role Phone Nura Connelly MD, Agustin Primary Care Provide r Yovanny Jackson [phone] REASON FOR VISIT No Show Encounters Encounter Location Date Provider Diagnosis [facility] [address] [place] [address] 05/26/2024 Yovanny oLng Plan Of Treatment Next Appt Details Provider Name:Sun kenney, 08/29/2024 11:00:00 AM, [address] [facility], [place], [address], Progress Notes * Edward JONDOB:[birth year] (59 yo M)Acc No.[id number]:05/26/2024 Patient:?Salome JON :1965???Age:59 Y???Sex:Male Address:[address] [place] [address], [place] [id number] * true * Date:? Generated for Printi ng/Fageorgeg/eTransmitting on:?08/18/2024 06:57 AM EDT
--- OUTSIDE RECORDS SUMMARY | 2024-08-18 06:57 | XMS_ITS | Encounter Summary ---
Author Organization [facility] Address [address] [place] [address] Care Team Providers Care Internet Webmaster Name Role Phone Agustin Mix Primary Care Provider + Encounter Details Date Type Department Care Team (Late st Contact Info) Description 01/21/2017 Transplant Conversio n Encounter [facility] Health Information Management [address] [place] [address] Provider, [facility] Social History Tobacco Use Types Packs/Day [...] Info) Description 02/06/2025 9:30 AM EDT Follow-Up [facility] Liver Transplant Services [address] [place] [address] Dylan Phelps MD [address] [place] [address] documented as of this encounter Visit Diagnoses Not on filedocumented in this encounter Additional Health Concerns Infection Onset Date Last Indicated Resolved Time 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 + BC at [facility] > 6 months ago - can D/C contact isolation 01/20/2019 02/10/2019 08/10/2019 9:27 AM E DT COVID-19 - Suspected infection 03/05/2020 03/17/2020 03/17/2020 7:55 PM EST COVID-19 - Confirmed infection 05/01/2020 05/07/2020 06/01/2020 5:06 PM EST COVID-19 - Suspected infection 05/10/2020 05/10/2020 05/24/2020 10:34 PM EST documented as of this encounter Care Teams Internet Webmaster Relationship Specialty Start Date End Date Agustin Mix [address] [place] [address] PCP - General Internal Medicine 04/15/17 documented as of this encounter
--- OUTSIDE RECORDS SUMMARY | 2024-08-18 06:57 | XMS_ITS | Encounter Summary ---
Author Organization [employer] Address [address] [place] [address] 7t [place] [address] Care Team Providers Care Burner Shaft Name Role Phone Agustin Marrero MD Primary Care Provide r Reason for Visit * Reason Comments Med Refill Encounter Details Date Type Department Care Team ([facility] st Contact Info) Description 10/20/2023 Refill [facility] CHC MED & PEDS [address] [place], [place] [phone] Agustin Marrero MD [address] [place] [address] Chronic midline low back pain without sciatica [...] Description 08/26/2024 9:00 AM EDT Clinical Support [facility] MEDICINE [address] [place] [address] Shwetha Collado RN [address] [place] [address] 11/01/2024 9:15 AM EDT Office Visit [facility] MEDICINE [address] [place] [address] Agustin Marrero MD [address] [place] [address] 11/16/2024 10:00 AM EDT Office Visit [facility] ADULT DENTAL [address] [place] [address] Catherine Antonio [address] [place] [address] documented as of this encounter Visit Diagnoses Diagnosis Chronic midline low back pain without sciatica documented in this encounter Additional Health Concerns Assessment Noted Time PHQ-9 Depression Total Score: 5 06/16/19 24 9:35 AM EST documented as of this encounter Care Teams Burner Shaft Relationship Specialty Start Date End Date Agustin Marrero MD [address] [place] [address] PCP - General Internal Medicine 01/25/14 [facility] 06/13/16 documented as of this encounter
--- OUTSIDE RECORDS SUMMARY | 2024-08-18 06:57 | XMS_ITS | Patient Health Record ---
Author Organization [facility] [place]ena [place] Address [address] [facility] [place] [address] Care Team Providers Care Supervisor Gear Repair Name Role Phone Nura Connelly MD, Agustin Primary Care Provide r Unavailable Yovanny Long Unavailable [phone] Reason For Referral No Information Medications Medication SIG (Take, Route, Frequency, Duration) Notes Start Date End Date Status Tacrolimus 1 MG as directed Orally Active Vitamin D3 191324 UNIT/GM as directed Active Magnesium 400 MG [...] disorder associated with type II diabetes mellitus (602546552) Type 2 diabetes mellitus with other diabetic neurological complication (E11.49) Active confirmed Vital Signs Heart Rate 68 /min 06/17/2024 Blood pressure diastolic 81 mm Hg 06/17/2024 Height 5ft 7 in in 06/17/2024 Blood pressure systolic 134 mm Hg 06/17/2024 Weight 205 lbs 06/17/2024 BMI 32.1 kg/m2 06/17/2024 Procedures Procedure Date Ordered Date Performed Result Body Sit e 73165-RPBUKBR NAIL, 6 OR MORE 03/10/2024 N/A 27206-OYFSBSI NAIL, 6 OR MORE 06/17/2024 N/A Encounters Encounter Location Date Provider Diagnosis [address] [address] 03/10/2024 Yovanny Long Onychomycosis B35.1 ; Xerosis of skin L85.3 ; Pain in right toe(s) M79.674 and Pain in left toe(s) M79.[address] [address] 06/17/2024 Yovanny Long Onychomycosis B35.1 and Type 2 diabetes mellitus with other diabetic neurological complication E11.[address] [address] 03/10/2024 Yovanny Long [address] [address] 05/26/2024 Yovanny Long Assessments Encounter Date Diagnosis (ICD Code) Assessment Notes Treatment Notes Treatment Clinical Notes Section Notes 03/10/2024 Xerosis of skin (ICD-10 - L85.3) Application of [place]-Soothe skin lotion to his feet 03/10/2024 Onychomycosis (ICD-10 - B35.1) 06/17/2024 Type 2 diabetes mellitus with other diabetic neurological complication (ICD-10 - E11.49) 06/17/2024 Onychomycosis (ICD-10 - B35.1) 03/10/2024 Pain in right toe(s) (ICD-10 - M79.674) 03/10/2024 Pain in left toe(s) (ICD-10 - M79.675) 05/26/2024 Other 06/17/2024 Other Application of [place]-Soothe skin lotion to his feet Plan Of Treatment Pending Test Test Name Order Date [id number] NAIL, 6 OR MORE 03/10/2024 70143-VYGBBVE NAIL, 6 OR MORE 06/17/2024 Next Appt Details Provider Name:Sun kenney, 08/29/2024 11:00:00 AM, [address] [facility], [place], [address], Insurance Providers Payer Name Payer Address Payer Phone Subscriber Number Group Number Insured Name Patient Relationship to Insured Coverage Start Date Coverage End Date [facility] [employer] Claims [address] [place] [id number] Edward Jon Self - patient is the insured Medical (General) History Medical History History ICD Code Back,Hip,and Knee pain Broken bones Cataracts covid-19 Dementia Depression Diabetic Gall bladder problems Hiatal hernia High Blood Pressure Liver disease Psychiatric disorder Surgical History Surgery Date(Month/Year) back surgery 02/2024
--- OUTSIDE RECORDS SUMMARY | 2024-08-18 06:58 | XMS_ITS | Encounter Summary ---
Author Organization [facility] Address [address] [place] [address] Care Team Providers Care Executive Housekeeper Name Role Phone Agustin Mix Primary Care Provider + Encounter Details Date Type Department Care Team (Late st Contact Info) Description 12/30/2021 Orders Only [facility] Interventional Radiology [address] [place] [address] Avelino Otero DO [address] [place] [address] Social History Tobacco Use Types Packs/Day Years [...] Info) Description 02/06/2025 9:30 AM EDT Follow-Up [facility] Liver Transplant Services [address] [place] [address] Dylan Phelps MD [address] [place] [address] documented as of this encounter Visit Diagnoses Not on filedocumented in this encounter Care Teams Executive Housekeeper Relationship Specialty Start Date End Date Agustin Mix [address] [place] [address] PCP - General Internal Medicine 04/15/17 documented as of this encounter
--- OUTSIDE RECORDS SUMMARY | 2024-08-18 06:58 | XMS_ITS | Encounter Summary ---
Author Organization [facility] Address [address] [place] [address] Care Team Providers Care Metal Cut Off Saw Tender Name Role Phone Agustin Mix Primary Care Provider + Encounter Details Date Type Department Care Team (Late st Contact Info) Description 02/29/2020 Orders Only [facility] Ultrasound [address] [place] [address] Sreedhar Sotelo MD [address] [place], [place] [phone] Social History Tobacco Use Types Packs/Day Years [...] Info) Description 02/06/2025 9:30 AM EDT Follow-Up [facility] Liver Transplant Services [address] [place] [address] Dylan Phelps MD [address] [place] [address] documented as of this encounter Visit Diagnoses Not on filedocumented in this encounter Additional Health Concerns Infection Onset Date Last Indicated Resolved Time COVID-19 - Suspected infection 03/05/2020 03/17/2020 03/17/2020 7:55 PM EST COVID-19 - Confirmed infection 05/01/2020 05/07/2020 06/01/2020 5:06 PM EST COVID-19 - Suspected infection 05/10/2020 05/10/2020 05/24/2020 10:34 PM EST documented as of this encounter Care Teams Metal Cut Off Saw Tender Relationship Specialty Start Date End Date Agustin Mix [address] [place] [address] PCP - General Internal Medicine 04/15/17 documented as of this encounter
--- OUTSIDE RECORDS SUMMARY | 2024-08-18 06:58 | XMS_ITS | Encounter Summary ---
Author Organization [facility] Address [address] [place] [address] Care Team Providers Care Coordinating Producer Name Role Phone Agustin Mix Primary Care Provider + Encounter Details Date Type Department Care Team (Late st Contact Info) Description 06/20/2024 Results Follow-Up [facility] Liver Transplant Services [address] [place] [address] Sonya Melendez RN Social History Tobacco Use [...] Info) Description 02/06/2025 9:30 AM EDT Follow-Up [facility] Transplant Services [address] [place] [address] Dylan Phelps MD [address] [place] [address] documented as of this encounter Visit Diagnoses Not on filedocumented in this encounter Care Teams Coordinating Producer Relationship Specialty Start Date End Date Agustin Mix [address] [place] [address] PCP - General Internal Medicine 04/15/17 documented as of this encounter
--- OUTSIDE RECORDS SUMMARY | 2024-08-18 06:58 | XMS_ITS | Encounter Summary ---
Author Organization [facility] Address [address] [place] [address] 7t [place] [address] Care Team Providers Care Mannequin Molder Name Role Phone Agustin Marrero MD Primary Care Provide r Encounter Details Date Type Department Care Team (Late st Contact Info) Description 08/28/[address] [facility] [address] [place] [address] Agustin Marrero MD [address] [place] [address] Social History Tobacco Use Types Packs/Day Years [...] Description 08/26/2024 9:00 AM EDT Clinical Support [facility] [address] [place] [address] Shwetha Collado RN [address] [place] [address] 11/01/2024 9:15 AM EDT Office Visit [facility] [address] [place], [place] [phone] Agustin Marrero MD [address] [facility] [place], [place] [phone] 11/16/2024 10:00 AM EDT Office Visit [facility]ULT DENTAL [address] [facility] [place] [phone] Catherine Antonio [address] [place], [place] [phone] documented as of this encounter Procedures Procedure Name Priority Date/Time Associated Diagnosis Comments COLONOSCOPY Routine 06/28/2021 documented in this encounter Results * Colonoscopy (06/28/2021) Colonoscopy Normal Normal 06/28/2021 Narrative Shanel Bo - 06/28/2021 9:58 AM EST Recommended 3 year follow up per GI notes ( [facility] ) us Historical Provider Anesco MAINTENANCE Edited Result - Final documented in this encounter Visit Diagnoses Not on filedocumented in this encounter Care Teams Mannequin Molder Relationship Specialty Start Date End Date Agustin Marrero MD [address] [facility] [place], [place] [phone] PCP - General Internal Medicine 01/25/14 [facility] 06/13/16 documented as of this encounter
--- OUTSIDE RECORDS SUMMARY | 2024-08-18 06:58 | XMS_ITS | Encounter Summary ---
Author Organization [facility] Address [address] [place] [address] 7t [place] [address] Care Team Providers Care Water Project Engineer Name Role Phone Agustin Marrero MD Primary Care Provide r Reason for Visit * Reason Onset Date Comments Med Refill 12/15/2022 Encounter Details Date Type Department Care Team ([facility] st Contact Info) Description 12/15/2022 Telephone [facility] MEDICINE [address] [place], [place] [phone] Agustin Marrero MD [address] [place] [address] Med Refill Social History Tobacco Use Types [...] 9:00 AM EDT Clinical Support [facility] MEDICINE [address] [place] [address] Shwetha Collado, RN [address] [place] [address] 11/01/2024 9:15 AM EDT Office Visit [facility] MEDICINE [address] [place] [address] Agustin Marrero MD [address] [place] [address] 11/16/2024 10:00 AM EDT Office Visit [facility] ADULT DENTAL [address] [place] [address] Matty Antonoiaris [address] [place] [address] documented as of this encounter Visit Diagnoses Not on filedocumented in this encounter Care Teams Water Project Engineer Relationship Specialty Start Date End Date Agustin Marrero MD [address] [place] [address] PCP - General Internal Medicine 01/25/14 [facility] 06/13/16 documented as of this encounter
--- OUTSIDE RECORDS SUMMARY | 2024-08-18 06:58 | XMS_ITS | Data Portability ---
Author Organization [facility], Main Office Address [address] [facility] [place] [address] Care Team Providers Care Irrigator Name Role Phone MARICRUZ NEWMAN - 2ND FLOOR OTHER Assessment Encounter Date Assessment Date Assessment LastModified by Organization Details LastModified Time 02/25/2019 02/25/2019 02/24/19 WBC 3.7, Hgb 7.5, Hct 22.4, Plt 59, Na 134, K 4.5, BUN 10, Insurance Case Manager 0.54, calc 7.8, tot prot 5.1, AST 69, ALT 33, A1c 4.2 02/23/19 WBC 3.4, Hgb 7.5, Hct 22.4, Plt 59, Na 128, K 4.3, BUN 11, Insurance Case Manager 0.56, silvia 7.6, tot prot 4.8, tot bili 4.1, AST 65, ALT 25 in hospital [facility] Not available 02/25/2019 10:15:55 Plan of [...] Gastroesop hageal reflux disease without esophagiti s 623371625 Active 2018 FIDEL MAURO [address] [facility], [address], [place], [address], [facility] 9 08:26:33 Cirrhosis of liver 02057792 Active 2018 on transplant list FIDEL MAURO [address] [facility], [address], [place], [address], [facility] 9 08:36:16 Diabetes mellitus 74680860 Active 2018 CACHORRO FIDEL CARLSON [address] [facility], [address], [place], [address], [facility] 9 08:28:07 Hyponatrem ia 53528499 Active 2018 CACHORROFIDEL LEON [address] [facility], [address], [place], [address], [facility] 9 08:28:22 Bacteremia 6530779 Active 2018 CACHORROFIDEL LEON [address] [facility], [address], [place], [address], [facility] 9 08:29:07 Bacterial peritoniti s 593090025 Active 2018 FIDEL MAURO [address] [facility], [address], [place], [address], [facility] 9 09:07:42 Edema of lower extremity 852833718 Active 2018 FIDEL MAURO [address] [facility], [address], [place], [address], [facility] 9 09:15:49 Abscess of lower leg 242126234 Active 2018 Brittaney Mcelroy MD [address] [place] [address], [address], [place], [address], [facility] 9 07:15:49 Anemia 452874739 Active 2018 Brittaney Mcelroy MD [address] [place] [address], [address], [place], [address], [facility] 9 07:16:47 Problem Notes None recorded. Medical Equipment None Reported. Allergies No known drug allergies Medications Not known to be on any medication Vitals Date Recorded Body weight Heart rate Respiratory rate Body temperature Oxygen saturation Oxygen saturation in Arterial blood by Pulse oximetry Systolic blood pressure Diastolic blood pressure Provider Name and Address Organization Details Last Updated DateTime 9 24520.5 1 g 70 /min 20 /min 96.9 [degF] 98 % 98 % 128 mm[Hg] 74 mm[Hg] FIDEL MAURO [address] [facility], [address], [place], [address], [facility] 9 11:06:12 Date Recorded Systolic blood pressure Diastolic blood pressure Provider Name and Address Organization Details Last Updated DateTime 03/02/2019 120 mm[Hg] 68 mm[Hg] Brittaney Mcelroy MD [address] [facility], [address], [place], [address], [facility] 03/02/2019 06:55:54 Social History Question Answer Notes LastModified by Organizat ion Details LastModified Time Tobacco Smoking Status Former Smoker Not Available [facility] 02/14/2020 03:13:21 Do You Have An Advance Directive? Yes FULL CODE-undecid ed About Dialysis And Nutrition-ma y Use Hydration [id number] Information not available 02/14/2020 What Is Your Level Of Alcohol Consumption? None Quit Drinking In 2016 [id number] Information not available 02/14/2020 How Many Years Have You Consumed Alcohol? 30 [id number] Information not available 02/14/2020 How Much Tobacco Do You Chew? None [id number] Information not available 02/14/2020 Do You Or Have You Ever Used E-cigarettes Or Vape? Never Used Electronic Cigarettes [id number] Information not available 02/14/2020 Do You Have A Medical Power Of Bioengineer? Yes Hcp On File [id number] Information not available 02/14/2020 What Was The Date Of Your Most Recent Tobacco Screening? 02/25/2019 [id number] Information not available 02/14/2020 Do You Or Have You Ever Used Smokeless Tobacco? Never Used Smokeless Tobacco [id number] Information not available 02/14/2020 How Much Tobacco Do You Smoke? 1 PPD [id number] Information not available 02/14/2020 On What Date Was Tobacco Cessation Counseling Provided? 02/25/2019 NA [id number] Information not available 02/14/2020 How Many Years Have You Smoked Tobacco? 30 [id number] Information not available 02/14/2020 Sex: Unknown Functional Status None recorded. Mental Status None recorded. Family History Nothing Reported. Medical History No medical history recorded. Past Encounters Encounter ID Performer Location Encounter Start Date Encounter Closed Date Diagnosis/Indication Diagnosis SNOMED-CT Code Diagnosis ICD10 Code Diagnosis Note [id number] [address]O [address] [address] 02/25/2019 08:25:36 03/04/2019 13:41:33 Bacteremia 3803724 R78.81 completed treatmentm onitor dsg changes qdwet to dryareas clean Hyponatremia 93551529 E8 7.1 resolvedmo nitor labs Cirrhosis of liver K70.31 lactulose 30 mls tid 3-4 stools a dayspirono lactone 50 mg qdmonitoro n transplant listfollow s with [facility] Diabetes mellitus 627418 09 E11.9 lantus 8 units q [id number] here is 4.2monitor for s/s of hypo/hyper glycemia Gastroesop hageal reflux disease without esophagitis 076155521 K21.9 omeprazole 20 mg qdmonitor for symptoms Bacterial peritonitis 19 4937858 K65.2 recurrentc ipro 500 mg qd prophymoni tor for symptoms Edema of l ower extremity 684377292 R60.0 lasix 20 mg qdmonitor edema [id number] Brittaney Mcelroy MD [address] [address] 03/02/2019 06:54:11 03/04/2019 13:42:54 Cirrhosis of liver 52078487 K70.31 fu GIlactulos e 20 gm tidfurosem concetta 20 mg dailymagne sium 400 mg dailyspiro nolactone 25 mg dailyon transplant list [facility] Diabetes mellitus 535173 09 E11.9 Humalog per sliding scaleLantu s 8U dailywill monitor Gastroesop hageal reflux disease without esophagitis 887340661 K21.9 omeprazole 20 mg dailywill monitor Anemia 925713146 D50.8 suspect multifacto rial including GI blood loss, chronic diseaseawa it B12, folateiron 325 mg bidwill continue to monitor Bacteremia 9987646 R78.8 1 antibiotic s completedd aily dressing changes legfu surgery Bacterial peritonitis 19 6117013 K65.2 history of in pastCipro 500 mg daily for prophylaxi sfu GI [facility] Health Concerns Section Related Observation LastModified by Organization Detai ls LastModified Time None Recorded Concern Status LastModified by Organization Details LastModified Time None Recorded Advance Directives Directive Y: FULL CODE-undecided about dialysis and nutrition-may use hydration Payers Encounter Date Sequence Insurance Name Policy Number Policy Banks Covered Member ID Banks Member ID Guarantor Name 02/25/2019 2 [place] [facility] [id number] [facility] 02/25/2019 1 [facility] - DOS PRIOR TO 2022 - DUAL ELIGIBLE (MEDICARE REPLACEMENT/AD VANTAGE - HMO) [facility] [id number] [facility] 03/02/2019 2 [place] [facility] Edward Jon [id number] [facility] 03/02/2019 1 [facility] - DOS PRIOR TO 2022 - DUAL ELIGIBLE (MEDICARE REPLACEMENT/AD VANTAGE - HMO) [facility] [id number] [facility] Notes Date Note Type Note Provider Name and Address Organization Details Recorded Time 02/25/2019 text/html A 54 year old ma le being seen for a initial intake note. Patient was at [facility] for fever and lower extremity edema/pain. He was transferred to [facility] for bacteremia. He grew ESBL E. Coli [...] GERD, DM, hyponatremia and SBP. CACHORRO CARLSON, FARM TRACTOR MECHANIC [address] [facility], [address], [place], [address], [facility] 02/25/2019 11:10:47 03/02/2019 text/html This 54 year old male was admitted to [facility] 02/23/19 for continued care and rehab after hospitalization for fever and lower extremity edema/pain. Patient has history of alcoholic liver disease and cirrhosis and is on transplant list. He was initially admitted to [facility], then transferred to [facility] for bacteremia. His blood cultures grew ESBL E. Coli and he started on antibiotics, initially Zosyn which was changed to meropenem, then ertapenem to complete a 10 day course. Patient has history recurrent bacteremia in past few months. During most recent prior [facility] admission, it was suspected that likely source of bacteremia was biliary. Patient had worsened R>L leg edema and US was negative at [facility] for DVT. CT of right lower [...] MOLST: full code Brittaney Mcelroy MD [address] [facility], [address], [place], [address], [facility] [employer] 03/02/2019 08:11:36
--- OUTSIDE RECORDS SUMMARY | 2024-08-18 06:58 | XMS_ITS | Encounter Summary ---
Author Organization [facility] Address [address] [place] [address] 7t [place] [address] Care Team Providers Care Occupational Health And Safety Adviser Name Role Phone Agustin Marrero MD Primary Care Provide r Reason for Visit * Reason Onset Date Comments Med Refill 12/15/2022 Encounter Details Date Type Department Care Team ([facility] st Contact Info) Description 12/15/2022 Telephone [facility] MEDICINE [address] [place], [place] [phone] Agustin Marrero MD [address] [place] [address] Med Refill Social History Tobacco Use Types [...] 9:00 AM EDT Clinical Support [facility] MEDICINE [address] [place] [address] Shwetha Collado, RN [address] [place] [address] 11/01/2024 9:15 AM EDT Office Visit [facility] MEDICINE [address] [place] [address] Agustin Marrero MD [address] [place] [address] 11/16/2024 10:00 AM EDT Office Visit [facility] ADULT DENTAL [address] [place] [address] Paco, Catherine [address] [place] [address] documented as of this encounter Visit Diagnoses Not on filedocumented in this encounter Care Teams Occupational Health And Safety Adviser Relationship Specialty Start Date End Date Agustin Marrero MD [address] [place] [address] PCP - General Internal Medicine 01/25/14 [facility] 06/13/16 documented as of this encounter
--- OUTSIDE RECORDS SUMMARY | 2024-08-18 06:58 | XMS_ITS | Encounter Summary ---
Author Organization [facility] Address [address] [place] [address] Care Team Providers Care Assembling Inspector Name Role Phone Agustin Mix Primary Care Provider + Encounter Details Date Type Department Care Team (Late st Contact Info) Description 04/02/2020 Orders Only [facility] Interventional Radiology [address] [place] [address] Kathy Bowling MD [address] [place] [address] Social History Tobacco Use Types Packs/Day Years [...] Info) Description 02/06/2025 9:30 AM EDT Follow-Up [facility] Liver Transplant Services [address] [place] [address] Dylan Phelps MD [address] [place] [address] documented as of this encounter Visit Diagnoses Not on filedocumented in this encounter Additional Health Concerns Infection Onset Date Last Indicated Resolved Time COVID-19 - Confirmed infection 05/01/2020 05/07/2020 06/01/2020 5:06 PM EST COVID-19 - Suspected infection 05/10/2020 05/10/2020 05/24/2020 10:34 PM EST documented as of this encounter Care Teams Assembling Inspector Relationship Specialty Start Date End Date Agustin Mix [address] [place] [address] PCP - General Internal Medicine 04/15/17 documented as of this encounter
--- OUTSIDE RECORDS SUMMARY | 2024-08-18 06:58 | XMS_ITS | Encounter Summary ---
Author Organization [employer] Address [address] [place] [address] 7t [place] [address] Care Team Providers Care Salesperson Flowers Name Role Phone Agustin Marrero MD Primary Care Provide r Reason for Visit * Reason Comments Med Refill Encounter Details Date Type Department Care Team ([facility] st Contact Info) Description 05/13/2024 Refill [facility] MEDICINE [address] [place], [place] [phone] Agustin Marrero MD [address] [place] [address] Social History Tobacco Use Types Packs/Day Years [...] Description 08/26/2024 9:00 AM EDT Clinical Support [facility] MEDICINE [address] [place] [address] Shwetha Collado, KATALINA [address] [place] [address] 11/01/2024 9:15 AM EDT Office Visit [facility] MEDICINE [address] [place] [address] Agustin Marrero MD 230 [place] [address] 11/16/2024 10:00 AM EDT Office Visit [facility] ADULT DENTAL [address] [place] [address] Catherine Antonio [address] [place] [address] documented as of this encounter Visit Diagnoses Not on filedocumented in this encounter Additional Health Concerns Assessment Noted Time PHQ-9 Depression Total Score: 0 12/03/19 24 10:31 AM EDT documented as of this encounter Care Teams Salesperson Flowers Relationship Specialty Start Date End Date Agustin Marrero MD [address] [place] [address] PCP - General Internal Medicine 01/25/14 [facility] 06/13/16 documented as of this encounter
--- OUTSIDE RECORDS SUMMARY | 2024-08-18 06:58 | XMS_ITS | Encounter Summary ---
Author Organization [employer] Address [address] [place] [address] 7t [place] [address] Care Team Providers Care Grades 7 8 Tutor Name Role Phone Agustin Marrero MD Primary Care Provide r Reason for Visit * Reason Onset Date Comments Medication Question 05/11/2024 Encounter Details Date Type Department Care Team ([facility] st Contact Info) Description 05/11/2024 Telephone [facility]ICINE [address] [place], [place] [phone] Agustin Marrero MD [address] [place], [place] [phone] Medication Question Social History Tobacco Use Types [...] Dr Richardson's office on 05/11/2024. Note in [facility]: Received call from Edward's VNA nurse questioning if he still needs to be on Kayexelate 2x weekly. She states he has been out ofit for probably 1 month as he was under the impression the order was discontinued. Labs on 04/25 showK level within normal limits. Instructed her to have him repeat labs in early May to continue to monitor. Called [facility] pharmacy, spoke with Faiza who stated that pt last picked up Kayexalate on 08/13/2023, Rx was written by Dr Lenin Richardson for 30g 1x weekly as directed. Called [facility] Dr Richardson's office to confirm. [...] Richardson's office and received same messageas above. Airplane Flight Attendant advised Jessica to contact Dr Richardson with any questions regarding this med given that they prescribe it. Jessica stated she will be following up with their office in May once the pt gets their labs drawn. Advised her to call [facility] if any other questions or concerns develop, [...] leaving original prescriber contact information. Dr. Richardson [facility]. . If any questions for Jessica you can contact pt at [phone]. documented in this encounter Plan of Treatment Upcoming Encounters Date Type Department Care Team (Late st Contact Info) Description 08/26/2024 9:00 AM EDT Clinical Support [facility]INE [address] [place] [address] Shwetha Colaldo RN [address] [place] [address] 11/01/2024 9:15 AM EDT Office Visit [facility] [address] [place] [address] Agustin Marrero MD 230 [place] [address] 11/16/2024 10:00 AM EDT Office Visit [facility] ADULT DENTAL [address] [place] [address] Catherine Antonio [address] [place] [address] documented as of this encounter Visit Diagnoses Not on filedocumented in this encounter Additional Health Concerns Assessment Noted Time PHQ-9 Depression Total Score: 0 12/03/19 10:31 AM EDT documented as of this encounter Care Teams Grades 7 8 Tutor Relationship Specialty Start Date End Date Agustin Marrero MD [address] [place] [address] PCP - General Internal Medicine 01/25/14 [facility] 06/13/16 documented as of this encounter
--- OUTSIDE RECORDS SUMMARY | 2024-08-18 06:58 | XMS_ITS | Referral Summary ---
Author Organization [facility] Address [address] [place] [address] Care Team Providers Care Trainman Name Role Phone Agustin Mix Primary Care Provider + Encounters Date Type Department Care Team Description 08/01/2024 11:30 AM EDT Follow-Up [facility] [address] [place] [address] [phone] Dylan Phelps MD Laennec's cirrhosis (Primary Dx); Hyperkalemia; Encounter for immunosuppression management after liver transplant (HCC); History of hepatocellular carcinoma; Low magnesium level 07/26/2024 Abstract [facility] Transplant Department [address] [place] [address] 79978 Dylan Phelps MD 07/22/2024 Results Follow-Up [facility] Trans[facility] Department [address] [place] [address] 82725 Erika Bonds RN 07/22/2024 Abstract [facility] [address] [place] [address] 82988 Dylan Phelps MD 07/21/2024 Abstract [facility] [address] [place] [address] [phone] Dylan Phelps MD 06/29/2024 Orders Only [facility] Department [address] [place] [address] 42728 Erika Bonds, KATALINA History of hepatocellular carcinoma (Primary Dx); History of liver transplant; Encounter for immunosuppression management after liver transplant 06/21/2024 Abstract [facility] Transplant Department [address] [place] [address] 13618 Dylan Phelps MD 06/20/2024 Results Follow-Up [facility] [address] [place] [address] 64371 Sonya Melendez RN 06/20/2024 Abstract [facility] Transplant Department [address] [place] [address] [phone] Dylan Phelps MD 06/16/2024 Telephone [facility] [address] [place] [address] 10828 Isidra Sanchez RN 05/25/2024 Abstract [facility] Department [address] [place] [address] [phone] Dylan Phelps MD 05/24/2024 Abstract [facility] Transplant Department [address] [place] [address] [phone] Dylan Phelps MD from Last 3 Months Allergies No known active allergies Medications blood glucose diagnostic meterIndicatio ns:Type 2 diabetes mellitus with hyperglycemia, with long-term current use of insulin (HCC) Use to test 3 times daily. 1 each 08/25/2019 10:32 AM EDT 0 Active VIAGRA 100 mg tablet TAKE 1 TABLET 1 HOUR BEFORE SEXUAL RELATIONS ONCE DAILY NEEDED. 0 Active Freestyle Lite test stripsIndicati ons:Type 2 diabetes mellitus with hyperglycemia, with long-term current use of insulin (HCC) Test 3 times a day. 100 strip 1 12/13/2019 9:38 PM EDT 0 Active blood glucose diagnostic lancet 28 gaugeIndicatio ns:Type 2 diabetes mellitus with hyperglycemia, with [...] needed daily 2 Active FreeStyle Arvin 2 [place] misc 2 Active BD Insulin Syringe Ultra-Fine 0.3 mL 31 gauge x 5/16 syringe 2 Active cholecalcifero l (VITAMIN D3) 1,000 unit tablet Take 1 tablet (1,000 Units total) by mouth once a day. 90 tablet 1 3 Active FreeStyle Arvin 2 Sensor kit USE TO MONITOR BLOOD GLUCOSE LEVELS. CHANGE EVERY 14 DAYS DX E11.9 3 Active Artificial Tears,pg-hypm- glyc, 1-0.2-0.2 % drops SMARTSIG:In Eye(s) 3 Active SUMAtriptan (IMITREX) 25 mg tablet Take 25 mg by mouth. 4 Active lidocaine (LIDODERM) 5% patch APLIQUE UN PARCHE EN LA MA SALOMÓN REMOVE AND DISARD PATCH WITHIN 12 HOURS OR SEG N LO INDICADO Active tacrolimus (PROGRAF) 1 mg capsuleIndicat ions:History of liver transplant (HCC) Take 1 capsule (1 mg total) by mouth every 12 hours. 270 capsule 3 4 Active magnesium oxide (MAG-OX) 400 mg (241.3 mg mag) tabletIndicati ons:Low magnesium level TAKE 2 TABLETS (800 MG TOTAL) BY MOUTH 2 TIMES A DAY. 360 tablet 5 4 Active Daily-Stacy, with folic acid, tablet SMARTSI Tablet(s) By Mouth Daily 5 Active ammonium lactate (AMLACTIN) 12 % cream SMARTSIG:Topic al Twice Daily 4 Active Gvoke HypoPen 1-Pack 0.5 mg/0.1 mL auto-injector PLEASE SEE ATTACHED FOR DETAILED DIRECTIONS 4 Active multivitamin tablet TOME OLINDA TABLETA TODOS LOS D 4 08/02/19 25 Discontinu ed(Duplica te order) Active Problems Problem Noted Date Diagnosed Date [...] in March 2020. He was seen by painter supervisor at [facility] who discussed that he might need [...] w/ ISS. -Cont Lantus 20 u nightly -JAY Assessment & Plan (01/19/2019 8:54 AM EDT): Patient with a history of DMT2 being managed on Lantus 16u nightly and 3 units of unknown insulin in the morning. -Lantus dose increased to 10 U nightly when eating (switched to 6U at night when NPO) --ISS Assessment & Plan (12/20/2018 4:04 PM EDT): [...] for liver biopsy, since LFT pattern not denial management representative of rejection. Additionally, Liver ultrasound showed [...] of recurrent ESBL bacteremia. Initially presented to [facility] for fever, LE swelling and pain. Unclear source. BCX grew esbl E.Coli 1 out of 2 sets from [facility], susceptible to Ertapenem. Initially he was on [...] of recurrent ESBL bacteremia. Initially presented to [facility] for fever, LE swelling and pain. Unclear source. BCX grew esbl E.Coli 1 out of 2 sets from [facility], susceptible to Ertapenem. Initially he was on [...] recurrent ESBL bacteremia. Patient initially presented to [facility] for fever and LE swelling and pain. Unclear source. BCX grew esbl E.Coli 1 out of 2 sets from [facility], susceptible to Ertapenem. Initially he was on zosyn, and was switched to ertapenem. On previous admission, MRCP on 12/20 or Abdominal US on 01/16 showed no biliary dilatation. - continue ertapenem (10 day course to be completed on 02/09 per [facility] note) - repeat BCX - CT AP w/ contrast - consult transplant ID in the AM - f/u CBC and CMP Assessment & Plan (02/05/2019 5:40 AM EDT): Patient has a recurrent history of recurrent ESBL bacteremia. Patient initially presented to [facility] for fever and LE swelling and pain. Unclear source. BCX grew esbl E.Coli 1 out of 2 sets from [facility], susceptible to Ertapenem. Initially he was on zosyn, and was switched to ertapenem. On previous admission, MRCP on 12/20 or Abdominal US on 01/16 showed no biliary dilatation. - continue ertapenem (10 day course to be completed on 02/09 per [facility] note) - repeat BCX - CT AP w/ contrast Abscess of leg, right 02/05/20192018 Assessment & Plan (02/22/2019 3:37 PM EST): Patient has worsened leg edema R>L w/ rt side 4+ pitting edema. At [facility], US was negative for DVT. CT [...] w/ rt side 4+ pitting edema. At [facility], US was negative for DVT. CT [...] Right side has 4+ pitting edema. At [facility], US was obtained and ruled out [...] found. OSH GI recommended transfer to [facility] as there was a suspicion for [...] pathology. -BCx grew GNR?? -transplant ID consulted -[facility] was called for speciation, it will [...] concerning for pathology. -Transplant ID is following -[facility] will fax culture data, commented that [...] 8:59 AM EST): Hyponatremic to 132 at [facility]. Na 128, constant through hospitalization. - daily BMP Assessment & Plan (02/09/2019 11:02 AM EDT): Hyponatremic to 132 at [facility]. Na 128, constant through hospitalization. - daily BMP Assessment & Plan (02/05/2019 5:51 AM EDT): Hyponatremic to 132 at [facility]. - repeat BMP in am and redose diuretics Assessment & Plan (02/05/2019 5:47 AM EDT): Hyponatremic to 132 at [facility]. - repeat BMP in am and redose [...] show acute fracture, and hardware intact. More likbetty that it is painful due to him [...] show acute fracture, and hardware intact. More shirleybetty that it is painful due to him [...] Presented again on day of admission to [facility] with worsening shortness of breath where a CT chest PE protocol was performed which showed no evidence of intraluminal filling defect though did make note of large left- sided pleural effusion with associated complete left lower lobe collapse as well as partial left upper lobe collapse. Due to recurrent pleural effusion and likely need for repeat thoracentesis patient was transferred [facility]. On arrival patient without any increased work of breathing and saturating well on room air. Exam reveals absent breath sounds in the left middle and lower lung perez with increased dullness to percussion. 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 -We will have CT scan from [facility] uploaded into our system for review -CXR on 07/11 showed large left pleural effusion -IP consulted for thoracentesis. Will send fluid studies. -Requested [facility] records of pleural fluid studies from 07/06 -Supplemental oxygen as needed to maintain sats greater than 92% Assessment & Plan (01/19/2019 10:11 AM EDT): Patient is s/p thoracentesis after large left lung effusion unchanged from previous admission seen on imaging. Site of thoracentesis covered with bandage that is dry and intact. Chart review of his prior hospitalization at [facility] revealed that he had thoracentesis on January 11, 2019, during which 1.6 L was taken out, and fluid study revealed white blood cell count of 2650 and segs of 35%, suggesting exudative fluid, although it seems that no paracentesis was done at [facility]. - decreased breath sounds in middle and [...] transudative fluid, rapidly reaccumulating, transferred to [facility] for TIPS intervention. Resumed diuretics today [...] procedure in 2018. Most recent hospitalization at [facility] was in January 2019 when [...] to hyperkalemia. Of note, reached out to [facility] to double check if paracentesis was done, and whether there is a fluid study of the sample, however it appears that no paracentesis was done at [facility]. - Start Lactulose increased to 20 g [...] TIPS procedure and was sent to [facility] for further evaluation. Plan -Continue with [...] 20mg daily and spironolactone 50mg daily. At [facility], patient received IV lasix 40mg daily. [...] 20mg daily and spironolactone 50mg daily. At [facility], patient received IV lasix 40mg daily. [...] Sign Reading Time Taken Comments Blood Pressure 133/82 08/01/2024 10:18 AM EDT Pulse 60 08/01/2024 10:18 AM EDT Temperature 37 ??C (98.6 ??F) 08/01/2024 10:18 AM EDT Respiratory Rate 18 08/01/2024 10:18 AM EDT Oxygen Saturation 95% 08/01/2024 10:18 AM EDT Inhaled Oxygen Concentration - - Weight 91.2 kg (201 lb 1 oz) 08/01/2024 10:18 AM EDT Height 170.2 cm (5' 7 ) 11/14/2022 2:00 PM EDT Body Mass Index 31.49 11/14/2022 2:00 PM EDT Plan of Treatment Upcoming Encounters Date Type Department Care Team (Late st Contact Info) Description 02/06/2025 9:30 AM EDT Follow-Up [facility] [address] [place] [address] [phone] Dylan Phelps MD [address] [place] [address] [id number] Medical Devices Implanted Type Area President [employer] Device Identifier Shelf Expiration Date Model / Serial / Lot Shunt Transjugular Intrahepatic Portosystemic Tips Endoprosthesis [id number] Viatorr - [id number] Implanted:Qty: 1 on 07/28/2017 at [facility] Implant W L GORE 12/26/2019 [id number] / / Mesh Hernia With Strap Large Ventralex - [id number] Implanted:Qty: 1 on 03/20/2020 by Fernando Fine MD PhD at [facility] Mesh Right: Abdomen CR [employer] 01/15/2021 [id number] / / [id number] Stent Biliary Rx Fully Covered Self Expanding Metallic Rmv With Permalume Covering 8.5fr [id number] Wallflex - [id number] - [id number] Implanted:Qty: 1 on 11/21/2022 by Dunia Osorio MD at [facility] Stent N/A: Bile Duct [email or web address] 08/21/2024 [id number] / [id number] / Explanted Type Area President [employer] Device Identifier Shelf Expiration Date Model / Serial / Lot Ercp Stent-11/21/2022 Implanted:07/2022 (Quantity not on file) Explanted:06/2022 (Quantity not on file) ERCP Stent Bile Duct 1 / / Txp Internal Biliary Stent- Implanted:07/20 (Quantity not on file) Explanted:07/2020 (Quantity not on file) TXP Internal Biliary Stent Bile Duct Procedures * Due to [place] state law, this organization might not be sharing negative HIV tests. Procedure Name Priority Date/Time Associated Diagnosis Comments AFP TUMOR MARKER, OUTSIDE LAB Routine 07/20/2024 8:26 AM EDT TACROLIMUS LEVEL, OUTSIDE LAB Routine 07/20/2024 8:26 AM EDT LIVER POST EXTERNAL PANEL Routine 07/20/2024 8:26 AM EDT AFP TUMOR MARKER, OUTSIDE LAB Routine 06/17/2024 6:49 AM EST LIVER POST EXTERNAL PANEL Routine 06/17/2024 6:[address] CHEST W CONTRAST Routine [...] to Health Maintenance Results * Due to [place] state law, this organization might not be sharing negative HIV tests. * LIVER POST EXTERNAL PANEL (07/20/2024 8:26 AM EDT) Only the most recent of2 resultswithin the time period is included. Sodium 139 mmol/L [facility] Potassium 4.5 [facility] Chloride 109 [facility] Carbon Dioxide 25 [facility] Glucose 143 [facility] BUN 17 mg/dL [facility] Creatinine 1.13 mg/dL [facility] Calcium 9.5 mg/dL [facility] Total Protein 7.1 g/dL [facility] Albumin 4.4 g/dL [facility] Bilirubin, Total 0.7 mg/dL [facility] Alkaline Phosphatase 105 U/L [facility] AST 29 U/L [facility] ALT 38 U/L [facility] Magnesium 1.70 mg/dL [facility] WBC 5.1 10*3/uL [facility] Hgb 14.5 [facility] Hematocrit 40.7 % [facility] Platelets 132 10*3/uL [facility] 07/20/2024 8:26 AM EDT us Dylan Phelps MD LAB BLOOD ORDERABLES Final Re sult [facility] [address] [place] [address] * AFP Tumor Marker, Outside Lab (07/20/2024 8:26 AM EDT) Only the most recent of2 resultswithin the time period is included. Alpha Fetoprotein, Tumor Marker 1.5 [facility] Blood Structure of peripheral vein / Unknown 07/20/2024 8:26 AM EDT Dylan Phelps MD LAB BLOOD ORDERABLES Final Re sult Performing Organization Address [facility] Co de Phone Number [facility] [address] [place] [id number] * Tacrolimus Level, Outside Lab (07/20/2024 8:26 AM EDT) Tacrolimus, Highly Sensitive 3.4 [facility] Blood Structure of peripheral vein / Unknown 07/20/2024 8:26 AM EDT Dylan Phelps MD LAB BLOOD ORDERABLES Final Re sult Performing Organization Address [facility] de Phone Number [facility] [address] [place] [id number] * CT Chest W Contrast (11/05/2023 4:35 [...] obtain the completed interpretation. ? Workstation ID: [id number] Up-to-date CT equipment and radiation dose reduction techniques were employed. CTDIvol: 3.1 - 23.9 mGy. DLP: 2643 mGy-cm. ??The following accession numbers are related to this dose report [id number]: [id number] Narrative 11/19/2023 3:36 PM EDT Indication: ??59 [...] the spine. ??Bilateral gynecomastia. Resulting Agency Comment [id number] Procedure Note Natasha Michaud MD - 11/19/2023 [...] possible to obtain thecompleted interpretation. Workstation ID: [id number] Up-to-date CT equipment and radiation dose reduction techniques wereemployed. CTDIvol: 3.1 - 23.9 mGy. DLP: 2643 mGy-cm. The followingaccession numbers are related to this dose report [id number]: [id number] us Dylan Phelps MD [facility] CT PROCEDURES Final Resul t * (ABNORMAL) Basic Metabolic Panel (11/15/2022 3:07 AM EDT) NA 135 135 - 145 mmol/L 11/15/2022 4:09 AM EDT [facility] K 4.6 3.5 - 5.3 mmol/L 11/15/2022 4:09 AM EDT [facility] Cl 103 97 - 110 mmol/L 11/15/2022 4:09 AM EDT [facility] CO2 24 24 - 32 mmol/L 11/15/2022 4:09 AM EDT [facility] BUN 27(H) 7 - 23 mg/dL 11/15/2022 4:09 AM EDT [facility] Creatinine 1.05 0.60 - 1.30 mg/dL 11/15/2022 4:09 AM EDT [facility] Glucose 268(H) 70 - 99 mg/dL 11/15/2022 4:09 AM EDT [facility] Calcium 8.8 8.7 - 10.7 mg/dL 11/15/2022 4:09 AM EDT [facility] Anion Gap 8 5 - 15 11/15/2022 4:09 AM EDT [facility] eGFR 82 >=60 mL/min/1. 73m2 11/15/2022 4:09 AM [facility] Comment:The estimated glomer ular [...] ORDERABLES Final Re sult Performing Organization Address [facility] Co de Phone Number [facility] [address] [place] [address], * Microalbumin, Random Urine with Creatinine (05/17/2021 11:35 AM EST) Microalbumin, Urine 1.1 mg/dL 05/17/2021 12:34 PM EST [facility] Creatinine, Urine 97 22 - 328 mg/dL 05/17/2021 12:34 PM EST [facility] Microalb/Creat Ratio, Random Urine 11.3 <30.0 mcg/mgCr 05/17/2021 12:34 PM EST [facility] Comment: Microalbumin Reference Range: Normal ? <30 mcg/mg Creatinine Microalbuminuria ? 30-300 mcg/mg Creatinine Clinical Albuminuria >300 mcg/mg Creatinine Reference: ADA Guideline. Diabetes Care. 2004;27 (suppl 1) Urine Voided urine specimen / Unknown Non-Blood Collection / Unknown 05/17/2021 11:35 AM EST 05/17/2021 12:01 PM EST us Angelita Villa MD LAB URINE ORDERABLES Final Resul t Performing Organization Address City/[facility]/ZIP Co de Phone Number [facility] [address] [place] [address], * (ABNORMAL) Hemoglobin A1c (05/17/2021 11:31 AM EST) Hemoglobin A1C 7.7(H) <5.7 % of total Hgb 05/18/2021 2:37 AM EST [facility] Comment: For someone without known diabetes, a [...] (MG/DL) 174 mg/dL 05/18/2021 2:37 AM EST [facility] eAG (MMOL/L) 9.7 mmol/L 05/18/2021 2:37 AM EST [facility] Blood Structure of peripheral vein / Unknown Venipuncture / Unknown 05/17/2021 11:31 AM EST 05/17/2021 11:40 AM EST Narrative [facility] - 05/18/2021 2:37 AM EST [facility] Received Date: us Angelita Villa MD LAB BLOOD ORDERABLES Final Resul t [facility] [address], [place] [address], [facility] [address], [place] [address], * CT Abdomen Pelvis with Contrast (05/05/2020 5:27 PM EST) Anatomical Region Laterality Modality Body Computed Tomogra phy 05/06/2020 8:4 0 AM EST Impressions 05/06/2020 8:50 AM EST Small fluid pocket between the incision and transverse colon which may represent developing adhesions. Recommend correlation for any signs of infection in the incision on exam. Otherwise, no CT findings that might explain patient's fever. [id number] Narrative 05/06/2020 8:50 AM EST EXAMINATION: CT [...] no CT findings that mightexplain patient's fever. [id number] Reyes Voss MD [facility] CT PROCEDURES Final Result * Hepatitis C RNA, Quantitative, PCR (09/09/2019 11:52 AM EDT) Hcv RNA, Quantitative Real Time PCR <15 NOT DETECTED NOT DETECTED IU/mL 09/14/2019 5:38 PM EDT [facility] Hepatitis C Quantitative PCR Log IU/mL <1.18 NOT DETECTED NOT DETECTED Log IU/mL 09/14/2019 5:38 PM EDT [facility] Comment: This test was performed using Real-Time Polymerase Chain Reaction. Reportable Range: 15 IU/mL to 100,000,000 IU/mL (1.18 Log IU/mL to 8.00 Log IU/mL). ?? The analytical performance characteristics of this assay have been determined by [employer]. The modifications have not been cleared or approved by the FDA. This assay has been validated pursuant to the CLIA regulations and is used for clinical purposes. ?? For more information on this test, go to: http://education.[employer]/faq/TVX22q7 (This link is being provided for informational/ educational purposes only.) Blood Structure of peripheral vein / Unknown Venipuncture / Unknown 09/09/2019 11:52 AM EDT 09/09/2019 12:07 PM EDT [facility] - 09/14/2019 5:38 PM EDT [facility] Received Date:[id number] Cyndi Pereira MD LAB BLOOD ORDERAB LES Final Result [facility] [address], [place] [address], [place] [phone] [facility] [address], [place] [address], from Last 3 Months or Most Recently Relevant to Health Maintenance [place] [id number] [facility] [address] [place] [address] [facility] [address] [place] [address] [facility] Advance Directives Documents on File Type Date Recorded 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
--- OUTSIDE RECORDS SUMMARY | 2024-08-18 06:58 | XMS_ITS | Encounter Summary ---
Author Organization [employer] Address [address] [place] [address] 7t [place] [address] Care Team Providers Care Health And Physical Education Teacher Name Role Phone Agustin Marrero MD Primary Care Provide r Reason for Visit * Reason Onset Date Comments Med Refill 04/14/2024 Encounter Details Date Type Department Care Team ([facility] st Contact Info) Description 04/14/2024 Telephone [facility] [address] [place], [place] [phone] Agustin Marrero MD [address] [place] [address] Med Refill Social History Tobacco Use Types [...] to soon for refill script sent to [facility][id number] on 03/24/24. * Telephone Encounter - Catherine Quiroz - 04/14/2024 11:49 AM EST TC from pt requesting medication refill. Medications needing refill : gabapentin (Neurontin) 300 MG capsule To be sent to: [facility]/pharmacy #[id number] - [address] documented in this encounter Plan of Treatment Upcoming Encounters Date Type Department Care Team (Late st Contact Info) Description 08/26/2024 9:00 AM EDT Clinical Support [facility] [address] [place] [address] Shwetha Collado RN [address] [place] [address] 11/01/2024 9:15 AM EDT Office Visit [facility] [address] [place] [address] Agustin Marrero MD [address] [place] [address] 11/16/2024 10:00 AM EDT Office Visit [facility] [address] [place], [place] [phone] Matty Antonioaris [address] [place], [place] [phone] documented as of this encounter Visit Diagnoses Not on filedocumented in this encounter Additional Health Concerns Assessment Noted Time PHQ-9 Depression Total Score: 0 12/03/19 10:31 AM EDT documented as of this encounter Care Teams Health And Physical Education Teacher Relationship Specialty Start Date End Date Agustin Marrero MD [address] [place], [place] [phone] PCP - General Internal Medicine 01/25/14 [facility] 06/13/16 documented as of this encounter
--- OUTSIDE RECORDS SUMMARY | 2024-08-18 06:58 | XMS_ITS | Clinical Summary ---
Author Organization [facility] Address [address] [place] [address] Care Team Providers Care Emergency Telecommunications Dispatcher Name Role Phone Agustin Mix Primary Care [...] needed daily 2 Active FreeStyle Arvin 2 [place] misc 2 Active BD Insulin Syringe Ultra-Fine [...] March 2020. He was seen by painter and body mechanic apprentice at [facility] who discussed that he might [...] for liver biopsy, since LFT pattern not field sales representative of rejection. Additionally, Liver ultrasound [...] of recurrent ESBL bacteremia. Initially presented to [facility] for fever, LE swelling and pain. Unclear source. BCX grew esbl E.Coli 1 out of 2 sets from [facility], susceptible to Ertapenem. Initially he was [...] of recurrent ESBL bacteremia. Initially presented to [facility] for fever, LE swelling and pain. Unclear source. BCX grew esbl E.Coli 1 out of 2 sets from [facility], susceptible to Ertapenem. Initially he was [...] recurrent ESBL bacteremia. Patient initially presented to [facility] for fever and LE swelling and pain. Unclear source. BCX grew esbl E.Coli 1 out of 2 sets from [facility], susceptible to Ertapenem. Initially he was on zosyn, and was switched to ertapenem. On previous admission, MRCP on 12/20 or Abdominal US on 01/16 showed no biliary dilatation. - continue ertapenem (10 day course to be completed on 02/09 per [facility] note) - repeat BCX - CT AP w/ contrast - consult transplant ID in the AM - f/u CBC and CMP Assessment & Plan (02/05/2019 5:40 AM EDT): Patient has a recurrent history of recurrent ESBL bacteremia. Patient initially presented to [facility] for fever and LE swelling and pain. Unclear source. BCX grew esbl E.Coli 1 out of 2 sets from [facility], susceptible to Ertapenem. Initially he was on zosyn, and was switched to ertapenem. On previous admission, MRCP on 12/20 or Abdominal US on 01/16 showed no biliary dilatation. - continue ertapenem (10 day course to be completed on 02/09 per [facility] note) - repeat BCX - CT AP w/ contrast Abscess of leg, right 02/05/20192018 Assessment & Plan (02/22/2019 3:37 PM EST): Patient has worsened leg edema R>L w/ rt side 4+ pitting edema. At [facility], US was negative for DVT. CT [...] w/ rt side 4+ pitting edema. At [facility], US was negative for DVT. CT [...] Right side has 4+ pitting edema. At [facility], US was obtained and ruled out [...] was found. OSH GI recommended transfer to [facility] as there was a suspicion for [...] grew GNR?? -transplant ID consulted -[facility] was called for speciation, it [...] concerning for pathology. -Transplant ID is following -[facility] will fax culture data, commented that both [...] 8:59 AM EST): Hyponatremic to 132 at [facility]. Na 128, constant through hospitalization. - daily BMP Assessment & Plan (02/09/2019 11:02 AM EDT): Hyponatremic to 132 at [facility]. Na 128, constant through hospitalization. - daily BMP Assessment & Plan (02/05/2019 5:51 AM EDT): Hyponatremic to 132 at [facility]. - repeat BMP in am and redose diuretics Assessment & Plan (02/05/2019 5:47 AM EDT): Hyponatremic to 132 at [facility]. - repeat BMP in am and [...] Presented again on day of admission to [facility] with worsening shortness of breath where a CT chest PE protocol was performed which showed no evidence of intraluminal filling defect though did make note of large left- sided pleural effusion with associated complete left lower lobe collapse as well as partial left upper lobe collapse. Due to recurrent pleural effusion and likely need for repeat thoracentesis patient was transferred [facility]. On arrival patient without any increased work of breathing and saturating well on room air. Exam reveals absent breath sounds in the left middle and lower lung perez with increased dullness to percussion. 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 -We will have CT scan from [facility] uploaded into our system for review -CXR on 07/11 showed large left pleural effusion -IP consulted for thoracentesis. Will send fluid studies. -Requested [facility] records of pleural fluid studies from 07/06 -Supplemental oxygen as needed to maintain sats greater than 92% Assessment & Plan (01/19/2019 10:11 AM EDT): Patient is s/p thoracentesis after large left lung effusion unchanged from previous admission seen on imaging. Site of thoracentesis covered with bandage that is dry and intact. Chart review of his prior hospitalization at [facility] revealed that he had thoracentesis on January 11, 2019, during which 1.6 L was taken out, and fluid study revealed white blood cell count of 2650 and segs of 35%, suggesting exudative fluid, although it seems that no paracentesis was done at [facility]. - decreased breath sounds in middle and [...] resulting transudative fluid, rapidly reaccumulating, transferred to [facility] for TIPS intervention. Resumed diuretics today [...] procedure in 2017. Most recent hospitalization at [facility] was in January 2019 when he [...] to hyperkalemia. Of note, reached out to [facility] to double check if paracentesis was done, and whether there is a fluid study of the sample, however it appears that no paracentesis was done at [facility]. - Start Lactulose increased to 20 g [...] from TIPS procedure and was sent to [facility] for further evaluation. Plan -Continue with [...] 20mg daily and spironolactone 50mg daily. At [facility], patient received IV lasix 40mg daily. [...] 20mg daily and spironolactone 50mg daily. At [facility], patient received IV lasix 40mg daily. [...] Team Description 08/01/2024 11:30 AM EDT Follow-Up [facility] Transplant Services [address] [place] [address] Dylan Phelps MD Laennec's cirrhosis (Primary Dx); Hyperkalemia; Encounter for immunosuppression management after liver transplant (HCC); History of hepatocellular carcinoma; Low magnesium level 07/26/2024 Abstract [facility] Transplant Department [address] [place] [address] 385[address] Dylan Phelps MD 07/22/2024 Results Follow-Up [facility] Transplant Department [address] [place] [address] 53663 Erika Bonds RN 07/22/2024 Abstract [facility] Transplant Department [address] [place] [address] Dylan Phelps MD 07/21/2024 Abstract [facility] Transplant Department [address] [place] [address] 40360 Dylan Phelps MD 06/29/2024 Orders Only [facility] Transplant Department [address] [place] [address] 50081 Erika Bonds RN History of hepatocellular carcinoma (Primary Dx); History of liver transplant; Encounter for immunosuppression management after liver transplant 06/21/2024 Abstract [facility] Transplant Department [address] [place] [address] Dylan Phelps MD 06/20/2024 Results Follow-Up [facility]plant [facility] [address] [place] [address] 96889 Sonya Melendez RN 06/20/2024 Abstract [facility] Transplant Department [address] [place] [address] 34089 Dylan Phelps MD 06/16/2024 Telephone [facility] Transplant Department [address] [place] [address] 60538 Isidra Sanchez RN 05/25/2024 Abstract [facility] Transplant Department [address] [place] [address] 17756 Dylan Phelps MD 05/24/2024 Abstract [facility] Transplant Department [address] [place] [address] Dylan Phelps MD from Last 3 Months [...] Info) Description 02/06/2025 9:30 AM EDT Follow-Up [facility]plant [facility] [address] [place] [address] Dylan Phelps MD [address] [place] [address] Health Maintenance Due Date Last Done Comments Cologuard 1964 Colon Cancer Screening 1965 Colonoscopy 1965 FOBT / Fit Test 1965 Sigmoidoscopy 1965 Ophthalmology Exam 01/03/1974 Urine Microalbumin 05/17/2022 05/17/2021, 04/06/2020 DTaP,Tdap,and Td Vaccines (2 - Td or Tdap) 09/16/2023 09/15/2013, 10/26/2006 COVID-19 Vaccine (2023-2 5 season) 2023 05/06/2022, 11/25/2021, 03/25/2021, Additional history exists RSV Vaccine (60+ years old a nd patients) (1 - Risk 60-74 years 1-dose series) 2024 Alcohol/Substance Use Screening 04/20/2024 Depression Screening and Follow-Up 04/20/2024 Social Drivers of Health Layla ual Screening 04/20/2024 Basic Metabolic Panel 09/11/2024 09/12/2023 , 11/19/2022, 11/15/2022, Additional history exists CT Lung Cancer Screening (Baseline) 11/29/2024 11/30/2023, 11/05/2023, 05/06/2022, Additional history exists Hemoglobin A1C 01/05/2025 07/05/2024, 11/18, 06/16/2023, Additional history exists Hepatitis B Vaccines Completed [...] history exists Medical Devices Implanted Type Area Sr. Operations Manager Device Identifier Shelf Expiration Date Model / Serial / Lot Shunt Transjugular Intrahepatic Portosystemic Tips Endoprosthesis [id number] Viatorr - [id number] Implanted:Qty: 1 on 07/28/[address] [facility] Implant W L GORE 12/26/2019 [id number] / / Mesh Hernia With Strap Large Ventralex - [id number] Implanted:Qty: 1 on 03/20/2020 by Fernando Fine MD PhD at [facility] Mesh Right: Abdomen [employer] 01/15/2021 [id number] / / [id number] Stent Biliary Rx Fully Covered Self Expanding Metallic Rmv With Permalume Covering 8.5fr [id number] Wallflex - [id number] - [id number] Implanted:Qty: 1 on 11/21/2022 by Dunia Osorio MD at [facility] Stent N/A: Bile Duct [employer] 08/21/2024 [id number] / [id number] / Explanted Type Area Sr. Operations Manager Device Identifier Shelf Expiration Date Model / [...] time period is included. Sodium 139 mmol/L [facility] Potassium 4.5 [facility] Chloride 109 [facility] Carbon Dioxide 25 [facility] Glucose 143 [facility] BUN 17 mg/dL [facility] Creatinine 1.13 mg/dL [facility] Calcium 9.5 mg/dL [facility] Total Protein 7.1 g/dL [facility] Albumin 4.4 g/dL [facility] Bilirubin, Total 0.7 mg/dL [facility] Alkaline Phosphatase 105 U/L [facility] AST 29 U/L [facility] ALT 38 U/L [facility] Magnesium 1.70 mg/dL [facility] WBC 5.1 10*3/uL [facility] Hgb 14.5 [facility] Hematocrit 40.7 % [facility] Platelets 132 10*3/uL [facility] 07/20/2024 8:26 AM EDT us Dylan Phelps MD LAB BLOOD ORDERABLES Final Re sult [facility] [address] [place] [address] * AFP Tumor Marker, Outside Lab (07/20/2024 8:26 AM EDT) Only the most recent of2 resultswithin the time period is included. Alpha Fetoprotein, Tumor Marker 1.5 [facility] Blood Structure of peripheral vein / Unknown 07/20/2024 8:26 AM EDT Dylan Phelps MD LAB BLOOD ORDERABLES Final Re sult Performing Organization Address [facility] Co de Phone Number [facility] [address] [place] [address] * Tacrolimus Level, Outside Lab (07/20/2024 8:26 AM EDT) Tacrolimus, Highly Sensitive 3.4 [facility] Blood Structure of peripheral vein / Unknown 07/20/2024 8:26 AM EDT Dylan Phelps MD LAB BLOOD ORDERABLES Final Re sult Performing Organization Address [facility] Co de Phone Number [facility] [address] [place] [address] * CT Chest W Contrast (11/05/2023 4:35 [...] obtain the completed interpretation. ? Workstation ID: [id number] Up-to-date CT equipment and radiation dose reduction techniques were employed. CTDIvol: 3.1 - 23.9 mGy. DLP: 2643 mGy-cm. ??The following accession numbers are related to this dose report [id number]: [id number] Narrative 11/19/2023 3:36 PM EDT Indication: ??59 [...] the spine. ??Bilateral gynecomastia. Resulting Agency Comment [id number] Procedure Note Natasha Michaud MD - 11/19/2023 [...] possible to obtain thecompleted interpretation. Workstation ID: [id number] Up-to-date CT equipment and radiation dose reduction techniques wereemployed. CTDIvol: 3.1 - 23.9 mGy. DLP: 2643 mGy-cm. The followingaccession numbers are related to this dose report [id number]: [id number] us Dylan Phelps MD [facility] PROCEDURES Final Resul t * (ABNORMAL) Basic Metabolic Panel (11/15/2022 3:07 AM EDT) NA 135 135 - 145 mmol/L 11/15/2022 4:09 AM EDT [facility] K 4.6 3.5 - 5.3 mmol/L 11/15/2022 4:09 AM EDT [employer] [facility] Cl 103 97 - 110 mmol/L 11/15/2022 4:09 AM EDT [facility] [facility] CO2 24 24 - 32 mmol/L 11/15/2022 4:09 AM EDT [employer] [facility] BUN 27(H) 7 - 23 mg/dL 11/15/2022 4:09 AM EDT [facility] Creatinine 1.05 0.60 - 1.30 mg/dL 11/15/2022 4:09 AM EDT [facility] Glucose 268(H) 70 - 99 mg/dL 11/15/2022 4:09 AM EDT [facility] Calcium 8.8 8.7 - 10.7 mg/dL 11/15/2022 4:09 AM EDT [facility] Anion Gap 8 5 - 15 11/15/2022 4:09 AM EDT [facility] eGFR 82 >=60 mL/min/1. 73m2 11/15/2022 4:09 AM EDT [facility] Comment:The estimated glomer ular [...] MD LAB BLOOD ORDERABLES Final Re sult [facility] [address] [place] [address], * Microalbumin, Random Urine with Creatinine (05/17/2021 11:35 AM EST) Microalbumin, Urine 1.1 mg/dL 05/17/2021 12:34 PM EST [facility] Creatinine, Urine 97 22 - 328 mg/dL 05/17/2021 12:34 PM EST [facility] Microalb/Creat Ratio, Random Urine 11.3 <30.0 mcg/mgCr 05/17/2021 12:34 PM EST [facility] Comment: Microalbumin Reference Range: Normal ? <30 mcg/mg Creatinine Microalbuminuria ? 30-300 mcg/mg Creatinine Clinical Albuminuria >300 mcg/mg Creatinine Reference: ADA Guideline. Diabetes Care. 2004;27 (suppl 1) Urine Voided urine specimen / Unknown Non-Blood Collection / Unknown 05/17/2021 11:35 AM EST 05/17/2021 12:01 PM EST us Angelita Villa MD LAB URINE ORDERABLES Final Resul t [facility] [address] [place] [address], * (ABNORMAL) Hemoglobin A1c (05/17/2021 11:31 AM EST) Hemoglobin A1C 7.7(H) <5.7 % of total Hgb 05/18/2021 2:37 AM EST [facility] [employer] Comment: For someone without known diabetes, a [...] (MG/DL) 174 mg/dL 05/18/2021 2:37 AM EST [facility] [employer] eAG (MMOL/L) 9.7 mmol/L 05/18/2021 2:37 AM EST [employer] [employer] Blood Structure of peripheral vein / Unknown Venipuncture / Unknown 05/17/2021 11:31 AM EST 05/17/2021 11:40 AM EST Narrative [facility] - 05/18/2021 2:37 AM EST [facility] Received Date: us Angelita Villa MD LAB BLOOD ORDERABLES Final Resul t [facility] [address] [facility] [address], [place] [address], [employer] [facility] [address] [facility] [address], [place] [address], * CT Abdomen Pelvis with Contrast (05/05/2020 5:27 PM EST) Anatomical Region Laterality Modality Body Computed Tomogra phy 05/06/2020 8:40 AM EST Impressions 05/06/2020 8:50 AM EST Small fluid pocket between the incision and transverse colon which may represent developing adhesions. Recommend correlation for any signs of infection in the incision on exam. Otherwise, no CT findings that might explain patient's fever. [id number] Narrative 05/06/2020 8:50 AM EST EXAMINATION: CT [...] no CT findings that mightexplain patient's fever. [id number] Reyes Voss MD [facility] PROCEDURES Final Result * Hepatitis C RNA, Quantitative, PCR (09/09/2019 11:52 AM EDT) [facility] RNA, Quantitative Real Time PCR <15 NOT DETECTED NOT DETECTED IU/mL 09/14/2019 5:38 PM EDT [facility] Hepatitis C Quantitative PCR Log IU/mL <1.18 NOT DETECTED NOT DETECTED Log IU/mL 09/14/2019 5:38 PM EDT [facility] Comment: This test was performed using Real-Time Polymerase Chain Reaction. Reportable Range: 15 IU/mL to 100,000,000 IU/mL (1.18 Log IU/mL to 8.00 Log IU/mL). ?? The analytical performance characteristics of this assay have been determined by [employer]. The modifications have not been cleared or approved by the FDA. This assay has been validated pursuant to the CLIA regulations and is used for clinical purposes. ?? For more information on this test, go to: http://education.[employer]/faq/DIB49j7 (This link is being provided for informational/ educational purposes only.) Blood Structure of peripheral vein / Unknown Venipuncture / Unknown 09/09/2019 11:52 AM EDT 09/09/2019 12:07 PM EDT Narrative [facility] - 09/14/2019 5:38 PM EDT [facility] Received Date: Cyndi Pereira MD LAB BLOOD ORDERAB LES Final Result [facility] [address] 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
--- OUTSIDE RECORDS SUMMARY | 2024-08-18 06:58 | XMS_ITS | Encounter Summary ---
Author Organization [employer] Address [address] [facility] 7[address] [place] [address] Care Team Providers Care Business Office Manager Name Role Phone Agustin Marrero MD Primary Care Provide r Encounter Details Date Type Department Care Team ([facility] st Contact Info) Description 08/15/2024 Telephone [facility] [address] [place], [place] [phone] Agustin Marrero MD [address] [place], [place] [phone] Social History Tobacco Use Types Packs/Day Years [...] encounter Miscellaneous Notes * Telephone Encounter - Kalpana Marino - 08/15/2024 11:59 AM EDT Images from the original note were not included. Please see message below and advise if agree with DME request. Thank you Jaquelin Marino; Pauline Stubbs Greetings, I am Jaquelin Araujo, Lead Pain Coordinator for [facility] Care Management, requesting the following DME???s on behalf of patient. DME Item: Power Lift Recliner Chair Eval and script Supportive DX: Chronic right-sided thoracic back pain, Liver transplant recipient, Arthritis, Chronic pain If you should have any inquiries regarding this request, feel free to contact the Pain Coordinator below. School Fundraising Director: Jaquelin Araujo E-mail: [email or web address] Upper Cutter Machine: Radha Chatman E-mail: [email or web address] Thanks in advance for your assistance with this request. Sincerely, [facility] Care Management documented in this encounter Plan of Treatment Upcoming Encounters Date Type Department Care Team (Late st Contact Info) Description 08/26/2024 9:00 AM EDT Clinical Support [facility] [address] [place] [address] Shwetha Collado, RN [address] [place] [address] 11/01/2024 9:15 AM EDT Office Visit [facility] [address] [place] [address] Agustin Marrero MD [address] [place] [address] 11/16/2024 10:00 AM EDT Office Visit [facility] ADULT DENTAL [address] [place] [address] Catherine Antonio [address] [place] [address] documented as of this encounter Visit Diagnoses Not on filedocumented in this encounter Additional Health Concerns Assessment Noted Time PHQ-9 Depression Total Score: 0 12/03/19 10:31 AM EDT documented as of this encounter Care Teams Business Office Manager Relationship Specialty Start Date End Date Agustin Marrero MD [address] [place] [address] PCP - General Internal Medicine 01/25/14 [facility] 06/13/16 documented as of this encounter
--- OUTSIDE RECORDS SUMMARY | 2024-08-18 06:59 | XMS_ITS | Encounter Summary ---
Author Organization [employer] Address [address] [facility] 7t [place] [address] Care Team Providers Care Insolvency Consultant Name Role Phone Agustin Marrero MD Primary Care Provide r Reason for Visit * Reason Comments Med Refill Encounter Details Date Type Department Care Team ([facility] st Contact Info) Description 06/04/2023 Refill [facility] [address] [place], [place] [phone] Natasha Nguyen MD [address] [place], [place] [phone] Gastroesophageal reflux disease, unspecified whether esophagitis present [...] 9:00 AM EDT Clinical Support [facility] [address] [place] [phone] Shwetha Collado RN [address] [place] [address] 11/01/2024 9:15 AM EDT Office Visit [facility] [address] [place] [address] Agustin Marrero MD [address] [place] [address] 11/16/2024 10:00 AM EDT Office Visit [facility] [address] [place] [address] Catherine Antonio [address] [place] [address] documented as of this encounter Visit Diagnoses Diagnosis Gastroesophageal reflux disease, unspecified whether esophagitis present documented in this encounter Care Teams Insolvency Consultant Relationship Specialty Start Date End Date Agustin Marrero MD [address] [place] [address] PCP - General Internal Medicine 01/25/14 [facility] 06/13/16 documented as of this encounter
--- OUTSIDE RECORDS SUMMARY | 2024-08-18 06:59 | XMS_ITS | Encounter Summary ---
Author Organization [employer] Address [address] [facility] 7t [place] [address] Care Team Providers Care Lithographic Press Operator Apprentice Name Role Phone Agustin Marrero MD Primary Care Provide r Encounter Details Date Type Department Care Team (Late st Contact Info) Description 05/05/2023 Telephone [facility] [address] [place], [place] [phone] Agustin Marrero MD 230 [place], [place] [phone] Social History Tobacco Use Types Packs/Day Years [...] 9:00 AM EDT Clinical Support [facility] [address] [place] [address] Shwetha Collado RN 505 [place] [address] 11/01/2024 9:15 AM EDT Office Visit [facility] [address] [place] [address] Agustin Marrero MD [address] [place] [address] 11/16/2024 10:00 AM EDT Office Visit [facility] [address] [place] [address] Catherine Antonio [address] [place] [address] documented as of this encounter Visit Diagnoses Not on filedocumented in this encounter Care Teams Lithographic Press Operator Apprentice Relationship Specialty Start Date End Date Agustin Marrero MD [address] [place] [address] PCP - General Internal Medicine 01/25/14 [facility] 06/13/16 documented as of this encounter
--- OUTSIDE RECORDS SUMMARY | 2024-08-18 06:59 | XMS_ITS | Encounter Summary ---
Author Organization [employer] Address [address] [place] [address] 7t [place] [address] Care Team Providers Care Riveter Pneumatic Name Role Phone Agustin Marrero MD Primary Care Provide r Reason for Visit * Reason Onset Date Comments Med Refill 05/26/2023 Encounter Details Date Type Department Care Team ([facility] st Contact Info) Description 05/26/2023 Telephone [facility] [address] [place], [place] [phone] Agustin Marrero MD [address] [place] [address] Med Refill Social History Tobacco Use Types [...] strip To be sent to: [facility]/pharmacy [address] [place] [address] documented in this encounter Plan of Treatment Upcoming Encounters Date Type Department Care Team (Late st Contact Info) Description 08/26/2024 9:00 AM EDT Clinical Support [facility] [address] [place] [address] Shwetha Collado RN 505 [place] [address] 11/01/2024 9:15 AM EDT Office Visit [facility] [address] [place] [address] Agustin Marrero MD [address] [place] [address] 11/16/2024 10:00 AM EDT Office Visit [facility] [address] [place] [address] PacoCatherine [address] [place] [address] documented as of this encounter Visit Diagnoses Not on filedocumented in this encounter Care Teams Riveter Pneumatic Relationship Specialty Start Date End Date Agustin Marrero MD [address] [place] [address] PCP - General Internal Medicine 01/25/14 [facility] 06/13/16 documented as of this encounter
--- OUTSIDE RECORDS SUMMARY | 2024-08-18 06:59 | XMS_ITS | Encounter Summary ---
Author Organization [employer] Address [address] [place] [address] 7t [place] [address] Care Team Providers Care Mold Technician Name Role Phone Agustin Marrero MD Primary Care Provide r Reason for Visit * Reason Onset Date Comments Error 05/12/2023 Encounter Details Date Type Department Care Team ([facility] st Contact Info) Description 05/12/2023 Telephone [facility] [address] [place], [place] [phone] Agustin Marrero MD 230 [place], [place] [phone] Error Social History Tobacco Use Types Packs/Day [...] 08/26/2024 9:00 AM EDT Clinical Support [facility] [address] [place] [address] Shwetha Collado RN 505 [place] [address] 11/01/2024 9:15 AM EDT Office Visit [facility] [address] [place] [address] Agustin Marrero MD 230 [place] [address] 11/16/2024 10:00 AM EDT Office Visit [facility] [address] [place] [address] Catherine Antonio [address] [place] [address] documented as of this encounter Visit Diagnoses Not on filedocumented in this encounter Care Teams Mold Technician Relationship Specialty Start Date End Date Agustin Marrero MD [address] [place] [address] PCP - General Internal Medicine 01/25/14 [facility] 06/13/16 documented as of this encounter
[2024-08-18 07:14] LABS: MANUAL DIFF FLAG NO
[2024-08-18 07:43] LABS: Basophils Absolute Auto 0.1 X10*3/uL (0.0-0.2); Eosinophils Absolute Auto 0.1 X10*3/uL (0.0-0.4); Eosinophils Percent Auto 1.6 % (0-4); Hematocrit 39.6 % (42.0-52.0); Imm Gran Abs Auto 0.01 X10*3/uL (0.00-0.03); Imm Gran Pct Auto 0.2 % (0.0-0.4); Lymphocytes Absolute Auto 1.5 X10*3/uL (1.2-4.9); Lymphocytes Percent Auto 30.2 % (20-40); Mean Corpuscular HGB Conc 35.4 g/dl (31.0-36.0); Mean Corpuscular Hemoglobin 29.8 pg (27.0-33.0); Mean Corpuscular Volume 84.3 fL (80.0-98.0); Mean Platelet Volume 10.8 fL (9.4-12.4); Monocytes Absolute Auto 0.5 X10*3/uL (0.1-1.2); Monocytes Percent Auto 9.9 % (2-11); Neutrophils Absolute Auto 2.9 x10*3/uL (2.0-8.3); Neutrophils Percent Auto 57.1 % (45-73); Platelet Count 125 X10*3/uL (160-400); Red Cell Distribution Width 12.6 % (11.0-16.0); White Blood Count 5.1 X10*3/uL (4.8-10.8)
[2024-08-18 08:04] LABS: Alanine Aminotransferase 39 U/L (0-40); Albumin Level 4.3 g/dL (3.5-5.0); Alkaline Phosphatase 105 U/L (39-117); Anion Gap 11 (12-20); Aspartate Amino Transferase 31 U/L (5-37); Bilirubin Total 0.7 mg/dL (0.0-1.0); Blood Urea Nitrogen 19 mg/dL (9-16); Calcium 9.5 mg/dL (8.4-10.2); Carbon Dioxide 25 mmol/L (22-29); Chloride 107 mmol/L (96-108); Estimated Glomerular Filt Rate > 60; Glucose Random 155 mg/dL (60-115); Magnesium 1.7 mg/dL (1.6-2.6); Potassium 4.5 mmol/L (3.3-5.1); Sodium 138 mmol/L (135-145); Total Protein 6.9 g/dL (6.5-8.0)
[2024-08-19 11:03] LABS: Alpha Fetoprotein 1.3 ng/mL (<6.1)
[2024-08-19 14:48] LABS: Tacrolimus Prograf 4.1 mcg/L
== END 2024-08-18 06:55 | disposition home or self-care (01) ==
LOC: HO.LABR 06:54
PROVIDERS: Visit Provider Internal Medicine
DX: Z94.4 Liver transplant status (principal); Z79.899 Other long term (current) drug therapy; Z85.05 Personal history of malignant neoplasm of liver
CPT/HCPCS: 36415; 80053; 80197; 82105; 83735; 85025

== ENCOUNTER 2024-09-20 07:11 | Outpatient (REF) | payer OTHER, SELFPAY ==
[2024-09-20 07:28] LABS: MANUAL DIFF FLAG NO
[2024-09-20 08:03] LABS: Basophils Percent Auto 0.8 % (0-2); Eosinophils Absolute Auto 0.1 X10*3/uL (0.0-0.4); Eosinophils Percent Auto 1.8 % (0-4); Hematocrit 39.6 % (42.0-52.0); Hemoglobin 14.2 g/dl (14.0-18.0); Imm Gran Abs Auto 0.02 X10*3/uL (0.00-0.03); Imm Gran Pct Auto 0.4 % (0.0-0.4); Lymphocytes Absolute Auto 1.4 X10*3/uL (1.2-4.9); Lymphocytes Percent Auto 29.3 % (20-40); Mean Corpuscular HGB Conc 35.9 g/dl (31.0-36.0); Mean Corpuscular Hemoglobin 29.8 pg (27.0-33.0); Mean Corpuscular Volume 83.2 fL (80.0-98.0); Mean Platelet Volume 10.7 fL (9.4-12.4); Monocytes Absolute Auto 0.5 X10*3/uL (0.1-1.2); Neutrophils Absolute Auto 2.8 x10*3/uL (2.0-8.3); Neutrophils Percent Auto 56.7 % (45-73); Platelet Count 123 X10*3/uL (160-400); Red Blood Count 4.76 X10*6/uL (4.60-5.80); Red Cell Distribution Width 12.6 % (11.0-16.0); White Blood Count 4.9 X10*3/uL (4.8-10.8)
[2024-09-20 08:13] LABS: Alanine Aminotransferase 32 U/L (0-40); Albumin Level 4.5 g/dL (3.5-5.0); Alkaline Phosphatase 101 U/L (39-117); Anion Gap 10 (12-20); Aspartate Amino Transferase 25 U/L (5-37); Bilirubin Total 0.7 mg/dL (0.0-1.0); Blood Urea Nitrogen 18 mg/dL (9-16); Calcium 9.5 mg/dL (8.4-10.2); Carbon Dioxide 26 mmol/L (22-29); Chloride 108 mmol/L (96-108); Estimated Glomerular Filt Rate > 60; Glucose Random 168 mg/dL (60-115); Magnesium 1.6 mg/dL (1.6-2.6); Potassium 4.9 mmol/L (3.3-5.1); Sodium 139 mmol/L (135-145)
[2024-09-21 13:18] LABS: Alpha Fetoprotein 1.3 ng/mL (<6.1)
== END 2024-09-20 07:12 | disposition home or self-care (01) ==
LOC: HO.LABR 07:11
PROVIDERS: Visit Provider Internal Medicine
DX: Z94.4 Liver transplant status (principal); Z85.05 Personal history of malignant neoplasm of liver; Z79.899 Other long term (current) drug therapy
CPT/HCPCS: 36415; 80053; 80197; 82105; 83735; 85025

== ENCOUNTER 2024-10-19 07:40 | Outpatient (REF) | payer OTHER, SELFPAY ==
[2024-10-19 07:55] LABS: MANUAL DIFF FLAG NO
[2024-10-19 08:51] LABS: Hematocrit 38.1 % (42.0-52.0); Hemoglobin 14.1 g/dl (14.0-18.0); Imm Gran Abs Auto 0.01 X10*3/uL (0.00-0.03); Imm Gran Pct Auto 0.2 % (0.0-0.4); Lymphocytes Absolute Auto 1.4 X10*3/uL (1.2-4.9); Mean Corpuscular HGB Conc 37.0 g/dl (31.0-36.0); Mean Corpuscular Hemoglobin 30.5 pg (27.0-33.0); Mean Corpuscular Volume 82.5 fL (80.0-98.0); NRBC Abs Auto 0.000 X10*3/uL (0.0-0.012); NRBC Pct Auto 0.0 /100WBC (0.0-0.2); Platelet Count 126 X10*3/uL (160-400); Red Blood Count 4.62 X10*6/uL (4.60-5.80); White Blood Count 5.2 X10*3/uL (4.8-10.8)
[2024-10-19 09:00] LABS: Alanine Aminotransferase 41 U/L (0-40); Albumin Level 4.5 g/dL (3.5-5.0); Alkaline Phosphatase 102 U/L (39-117); Anion Gap 8 (12-20); Aspartate Amino Transferase 26 U/L (5-37); Blood Urea Nitrogen 17 mg/dL (9-16); Calcium 9.0 mg/dL (8.4-10.2); Carbon Dioxide 23 mmol/L (22-29); Chloride 110 mmol/L (96-108); Estimated Glomerular Filt Rate > 60; Magnesium 1.6 mg/dL (1.6-2.6); Potassium 4.2 mmol/L (3.3-5.1); Sodium 137 mmol/L (135-145); Total Protein 7.0 g/dL (6.5-8.0)
== END 2024-10-19 07:41 | disposition home or self-care (01) ==
LOC: HO.LABR 07:40
PROVIDERS: PCP Internal Medicine; Visit Provider Internal Medicine
DX: Z85.05 Personal history of malignant neoplasm of liver (principal); Z94.4 Liver transplant status; Z79.899 Other long term (current) drug therapy
CPT/HCPCS: 36415; 80053; 82105; 83735; 85025

== ENCOUNTER 2024-10-20 09:07 | Outpatient (AMB) | payer OTHER, SELFPAY ==
--- OUTSIDE RECORDS SUMMARY | 2024-05-26 06:15 | XMS_ITS ---
Author Organization [facility] Reji bill [place] Address [address] [facility] [place] [address] Care Team Providers Care Licensed Marine Engineer Name Role Phone Nura Connelly MD, Agustin Primary Care Provide r Unavailable Yovanny Long Unavailable [phone] REASON FOR VISIT last visit pcp 12/31/23, [...] Orally Once a day Active Vitamin D3 414466 UNIT/GM as directed Active Losartan Potassium 25 [...] nsmoker Encounters Encounter Location Date Provider Diagnosis [facility] [address] [place] [address] 05/26/2024 Yovanny Long Onychomycosis B35.1 ; Pain [...] Name:Sun Sheppard anne marie, 11/03/2024 11:30:00 AM, [address] [place] [address], [place], [address], Procedure Notes * Category Sub-Category Detail Notes [...] use of a nail nipper and/or dremel-type rotary surface grinder, to a more viable healthy nail [...] to maintain effectiveness in symptomatic relief - 91119 Progress Notes * Edward JONDOB:[birth year] (59 yo M)Acc No.[id number]:05/26/2024 Progress Note Patient: Edward WINTER Provider: Kishan Long D.P.M. :1965 A ge:59 Y S ex:Male Date:05/26/2024 Address:[address] [place], [place] [id number] Pcp:Agustin Connelly MD Subjective: * Chief Complaints: [...] enies. C ardiovascular: Pacemaker d enies. 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 W PW d enies. C [...] as directed Orally , Taking Vitamin D3 707549 UNIT/GM Powder as directed , Taking Losartan [...] use of a nail nipper and/or dremel-type rotary surface grinder, to a more viable healthy nail [...] to maintain effectiveness in symptomatic relief - 20683. * Procedure Codes: 1 1721 DEBRIDE NAIL, 6 OR MORE * Follow Up: 2 Months * Images: * The named appointment provid er may or may not be the originator of this progress note, and it is not deemed complete until electronically signed by the appointment provider. Sign off status: Pending * Provider: Kishan Long D.P.M. Date: 0 05/26/2024 Generated for Francisco reagan/Eloina/Vetoranglennaitting on: 0 10/20/2024 09:22 AM EDT History and Physical Notes * [...]
--- NOTE | 2024-10-20 09:16 | MHC.OFFVIS ---
Vital Signs 10/20/24 09:19 Height 5 ft 7 in Weight 197 lb BMI 30.9 BP 113/70 Blood Pressure Location Lt brachial Position Sitting Pulse 78 Pulse Oximetry (%) 97 Oxygen Delivery Method Room Air Intake Visit Reasons: Colonoscopy rell was 04/2021 Intake Note: Patient new consult for Colonoscopy recall/Last Colonoscopy was 06/18/2021 with 3 to 5 yrs recall. Patient denies any GI issues. Manager Corporate Required: Yes Accompanied by: Self / Same As Patient Allergies No Known Allergies (No Known Allergies*) Allergy (Verified 10/20/24 09:16) Medication List - Last Reconciled 10/20/24 by Shelley Kelly MD blood sugar diagnostic (FreeStyle Lite Strips) As directed cholecalciferol (vitamin D3) (Vitamin D3) 50 mcg PO DAILY ciprofloxacin HCl 250 mg PO DAILY 5 days insulin aspart U-100 (Novolog FlexPen U-100 Insulin aspart) 4 - 9 units subcut TIDAC insulin glargine (Lantus Solostar U-100 Insulin) 24 units subcut BEDTIME losartan 25 mg PO DAILY magnesium oxide (MagOx) 400 mg PO DAILY multivitamin with folic acid 400 mcg (Daily-Stacy (with folic acid)) 1 tab PO DAILY omeprazole 20 mg PO DAILY oxycodone 5 mg PO Q8H PRN 7 days sildenafil (Viagra) 100 mg PO DAILY PRN tacrolimus 1 mg PO Q12H tramadol 1 tab PO Q8H PRN zolpidem 1 tab PO BEDTIME PRN HPI HPI Colonoscopy rell was 04/2021: Details: GI CLINIC VISIT FOR THIS 59-YEAR-OLD MALE FOR FOLLOW-UP AFTER LIVER TRANSPLANT (IN 07/2019) ON TACROLIMUS. PATIENT IS BEING FOLLOWED BY DR. 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 Patient denies any GI issues. I am doing great Denies abd pain, constipation or diarrhea or rectal bleeding. Seen at [facility] 2 months ago (Dr Dylan Miranda in [email or web address] Complains of bilateral breast enlargement - attributes it to steroid use in the past Denies known FH of colon polyps or colon cancer. Pt was seen at the [email or web address] liver transplant clinic on 08/01/[address] Miranda - clinic notes were requested and reviewed. 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 He was discharged home on 09/02/2019. Moderately differentiated, multifocal hepatocellular carcinoma was found on [place] liver explant. Resection margins were negative for carcinoma Biliary stent was removed by EGD on 09/21/2020. 01/11 to 01/13/21 - he was admitted for increased LFTs which trended down without any intervention (pt reported using cough syrup with ETOH & acetaminophen) 11/21/22 ERCP showed severe biliary stricture and a metal stent was placed. 02/2023 repeat ERCP was performed and stent was removed. 11/05/[address] scan showed normal-appearing hepatic transplant, no suspicious arterial enhancing mass lesions, normal hepatic contour. Unchanged from chronic findings including a rectus diastasis and diverticulosis PLAN: Pt advised to continue tacrolimus 1 mg twice daily. Patient's RETREAT SCORE was 1 and AFP was normal. HCC surveillance was discontinued since patient is 5 years post transplant. Patient is on magnesium 800 mg twice daily for hypomagnesemia PAST VISIT: EGD and colon results reviewed with the patient. Continues to have RUQ pain (5 to 7/10) since the transplant surgery and takes Tramadol which helps. Has an appt at [facility] clinic on 05/17/21 and FU every 6 months. Patient denies symptoms of heartburn, dysphagia, nausea, vomiting, change in appetite or weight.? Denies recent change in bowel habits, constipation, diarrhea, black stools or rectal bleeding. Patient denies major cardiac or pulmonary problems, loud snoring or sleep apnea Denies problems with anesthesia in the past. Denies being on chronic anticoagulation. Patient denies known family history of colon polyps, colon cancer or other GI malignancies ? IMAGING STUDIES:? 08/[address] SCAN SHOWED: 1. Nonspecific bowel gas pattern with fluid-filled small and large bowel loops. Correlate with any enterocolitis/diarrheal illness. No obstruction. 2. Post transplant changes. No gross biliary dilatation. 3. Severe atrophy of the pancreas without any discrete lesion on this nonenhanced study. 07/19/[address] SCAN SHOWED: No acute findings in the abdomen or pelvis. Transplant liver. Splenomegaly noted once again. Prominent diverticulosis of the sigmoid colon without acute diverticulitis. ENDOSCOPIC STUDIES: 06/28/21 EGD AND COLON SHOWED: ESOPHAGUS: Mildly tortuous esophagus with increased tertiary contractions without stricture or ring. GE junction at 38 cms. No esophagitis or Panchal's. STOMACH: Nodular appearing mucosa in the gastric body - biopsied.? Mild gastric antral erythema. Biopsies were obtained. A 3-4 mm benign appearing polyp in the gastric body - biopsied Colonoscopy Findings: Two small to medium sized polyps removed Moderate diverticulosis seen in the left colon Moderate hemorrhoids on retroflexed exam. Plan: Repeat Colonoscopy interval based on path results - in 3-5 years if polyps are adenomatous and 10 years if polyps are hyperplastic. 04/2014 colonoscopy was performed by Dr Diaz and two adenomatous polyps were removed from the left colon.? Pt is over due for FU colonoscopy [facility] Medical History (Updated 10/20/24 @ 10:10 by Shelley Kelly MD) Liver failure Hx of hepatitis Anxiety and depression Tubular adenoma of colon Diabetes 1.5, managed as type 2 Hx of substance abuse GERD (gastroesophageal reflux disease) Surgical History History of surgery on lower extremity History of local excision of skin lesion (04/16/23) Hx of colonoscopy Hx of esophagogastroduodenoscopy History of open reduction and internal fixation (ORIF) procedure History of appendectomy S/P liver transplant Social History Household Members: None Are you a primary healthcare science specialist to a significant other at home: No Do you presently have visiting nurse or other home services: No Alcohol intake: never Patient Tobacco Use Status: Former Tobacco user Tobacco use type: Cigarette Years Smoked: 15 Current occupational status: disabled Review of Systems Const Denies chills and Denies fever(s) Card Reports no additional complaints and Denies syncope Resp Denies cough GI Denies abdominal pain and Denies heartburn Reports as per HPI and Denies change in libido Neuro Denies syncope Psych Denies change in libido Endo Denies change in libido Physical Exam Vital Signs: Last Vital Signs Pulse 78 10/20/24 09:19 BP 113/70 10/20/24 09:19 Pulse Ox 97 07/03/25 09:19 Oxygen Delivery Method Room Air 10/20/24 09:19 BMI result Body Mass Index 30.9 Const General: healthy appearing and no acute distress Nutritional Appearance: obese Orientation/consciousness: patient oriented x3 Limitations: language barrier HEENT Head: Yes normal to inspection Ears: hearing grossly normal bilaterally Eyes Sclerae: sclerae normal Pupils: Equal, round and reactive pupils present Neck Neck: Yes normal visual inspection Chest Chest palpation & inspection: normal inspection of the chest Resp Effort & Inspection: normal respiratory effort Auscultation: clear to auscultation bilaterally Cardio Palpation: normal PMI Rate: regular rate Rhythm: regular rhythm Heart sounds: S1 normal heart sound present, S2 normal heart sound present and no murmurs GI Inspection: Yes scar (RUQ and midline scar of past liver Tx surgery) Palpation (GI): Soft to palpation, nontender and No hepatosplenomegaly present Auscultation: normal bowel sounds Rectal Exam - Male: Yes deferred Skin General skin exam: no rashes or lesions noted Neuro General: patient oriented x3, gait normal and moves all extremities Cranial nerves: Yes Equal, round and reactive pupils present Psych Appearance: grossly normal Mental Status: mental status grossly normal Assessment & Plan Assessment & Plan (1) GERD (gastroesophageal reflux disease): Comment: Continue Omeprazole Code(s): K21.9 - Gastro-esophageal reflux disease without esophagitis Category: Medical (2) S/P liver transplant: Comment: [email or web address] July 2019 Code(s): Z94.4 - Liver transplant status Category: Surgical (3) Colon cancer screening: Comment: 06/28/21 EGD AND COLON SHOWED: ESOPHAGUS: Mildly tortuous esophagus with increased tertiary contractions without stricture or ring. GE junction at 38 cms. No esophagitis or Panchal's. STOMACH: Nodular appearing mucosa in the gastric body - biopsied.? Mild gastric antral erythema. Biopsies were obtained. A 3-4 mm benign appearing polyp in the gastric body - biopsied Colonoscopy Findings: Two small to medium sized adenomatous polyps removed Moderate diverticulosis seen in the left colon Moderate hemorrhoids on retroflexed exam. Plan: Repeat Colonoscopy interval based on path results - in 3 years. Code(s): Z12.11 - Encounter for screening for malignant neoplasm of colon Category: Medical (4) RUQ abdominal pain: Code(s): R10.11 - Right upper quadrant pain Category: Medical (5) Hyperplastic polyp of stomach: Code(s): K31.7 - Polyp of stomach and duodenum Category: Medical Plan 59 YM with GERD, DM and status post Liver Transplant in 07/2019 (on Tacrolimus) likely for ETOH related cirrhosis. Post transplant course was complicated by rejection in 2020 treated with steroids. Chronic abdominal pain since OLT - likely related to adhesions - takes Tramadol 50 mg Q 8 hrly prn Pt was seen at the [email or web address] liver [facility] clinic on 08/01/24 - clinic notes were requested and reviewed. 08/01/24 Pt was seen at the [email or web address] liver transplant clinic by Dr Miranda - clinic notes were reviewed. Pt advised to continue tacrolimus 1 mg twice daily. Patient's RETREAT SCORE was 1 and AFP was normal. HCC surveillance was discontinued since patient is 5 years post transplant. Patient is on magnesium 800 mg twice daily for hypomagnesemia Follow-up appointment as planned in 6 months. 10/20/24 Pt advised to schedule aN egd (fu of hyperplastic gastric polyp) and colonoscopy for surveillance for colon polyps. Colonoscopy procedure, prep instructions and potential complications were reviewed with the patient. Request sent to the GI surgical resident to schedule an appointment. FU in 6 months Orders: Orders EGD/Covina Combo - GI Use Only Today Medications: New bisacodyl (Dulcolax (bisacodyl)) Take 4 tablets at 12 pm the day before colonoscopy appointment 20 mg (4 x 5 mg) PO ONCE 4 tabs 0RF colon prep 1 day polyethylene glycol 3350 (Miralax) Mix Miralax with 64 oz(8 cups) of Crystal light. Take 2 tablets of Dulcolax qt 12 pm. Wait to have your 1st bowel movement, then begin drinking Miralax. Drink a glass of Miralax every 10-15 minutes until you are finished. You will drink at least another 4 cups of clear liquid of your choice over the next 2 hours. Please drink as many clear liquids as possible You may have clear liquids up to four hours before your procedure 17 grams PO DAILY 238 grams 0RF colon prep 1 day Coding Level of Care Code New Pt Level 4 (38336) Diagnoses GERD (gastroesophageal reflux disease) K21.9 S/P liver transplant Z94.4 Colon cancer screening Z12.11 RUQ abdominal pain R10.11 Hyperplastic polyp of stomach K31.7 Time Spent (min) 21
[2024-10-20 09:19] VITALS: BP 113/70; PULSE 78; O2SAT 97; BMI 30.9
--- OUTSIDE RECORDS SUMMARY | 2024-10-20 09:23 | XMS_ITS | Encounter Summary ---
Author Organization [facility] Address [address] [place] [address] Care Team Providers Care Mortgage Loan Counselor Name Role Phone Agustin Mix Primary Care Provider + Encounter Details Date Type Department Care Team (Late st Contact Info) Description 07/23/2023 Orders Only [facility] Interventional Radiology [address] [place] [address] Pawel Sanchez MD [address] [place] [address] Social History Tobacco Use Types Packs/Day Years [...] Info) Description 02/06/2025 9:30 AM EDT Follow-Up [facility] Transplant [facility] [address] [place] [address] Dylan Phelps MD [address] [place] [address] documented as of this encounter Visit Diagnoses Not on filedocumented in this encounter Care Teams Mortgage Loan Counselor Relationship Specialty Start Date End Date Agustin Mix [address] [place] [address] PCP - General Internal Medicine 04/15/17 documented as of this encounter
--- OUTSIDE RECORDS SUMMARY | 2024-10-20 09:23 | XMS_ITS | Data Portability ---
Author Organization [place] [facility], Main Office Address [address] [facility] [place] [address] Care Team Providers Care Head Grinder Name Role Phone MARICRUZ SARGENT - 2ND FLOOR OTHER Assessment Encounter Date Assessment Date Assessment LastModified by Organization Details LastModified Time 02/25/2019 02/25/2019 02/24/19 WBC 3.7, Hgb 7.5, Hct 22.4, Plt 59, Na 134, K 4.5, BUN 10, Avionics Shop Supervisor 0.54, calc 7.8, tot prot 5.1, AST 69, ALT 33, A1c 4.2 02/23/19 WBC 3.4, Hgb 7.5, Hct 22.4, Plt 59, Na 128, K 4.3, BUN 11, Avionics Shop Supervisor 0.56, silvia 7.6, tot prot 4.8, tot bili 4.1, AST 65, ALT [facility] Not available 02/25/2019 10:15:55 Plan of [...] Gastroesop hageal reflux disease without esophagiti s 042107954 Active 2018 FIDEL MAURO [address] [facility], [address], [place], [address], [facility] 9 08:26:33 Cirrhosis of liver 51346708 Active 2018 on transplant list FIDEL MAURO [address] [facility], [address], [place], [address], [facility] 9 08:36:16 Diabetes mellitus 53545659 Active 2018 CACHORRO FIDEL CARLSON [address] [facility], [address], [place], [address], [facility] 9 08:28:07 Hyponatrem ia 94124428 Active 2018 CACHORROFIDEL LEON [address] [facility], [address], [place], [address], [facility] 9 08:28:22 Bacteremia 6000171 Active 2018 FIDEL MAURO [address] [facility], [address], [place], [address], [facility] 9 08:29:07 Bacterial peritoniti s 086278674 Active 2018 FIDEL MAURO [address] [facility], [facility] [address], [place], [address], [facility] 9 09:07:42 Edema of lower extremity 099332751 Active 2018 FIDEL MAURO [address] [facility], [address], [place], [address], [facility] 9 09:15:49 Abscess of lower leg 557633629 Active 2018 Brittaney Mcelroy MD [address] [place] [address], [place] [address], [place], [address], [facility] 9 07:15:49 Anemia 010519777 Active 2018 Brittaney Mcelroy MD [address] [place] [address], [facility] [address], [place], [address], [facility] 9 07:16:47 Problem Notes None recorded. Medical Equipment None Reported. Allergies No known drug allergies Medications Not known to be on any medication Vitals Date Recorded Body weight Heart rate Respiratory rate Body temperature Oxygen saturation Oxygen saturation in Arterial blood by Pulse oximetry Systolic And Diastolic Provider Name and Address Organization Details Last Updated DateTime 9 86332.5 1 g 70 /min 20 /min 96.9 [degF] 98 % 98 % 128/74 mm[Hg] FIDEL MAURO [address] [facility], [address], [place], [address], [facility] 9 11:06:12 Date Recorded Systolic And Diastolic Provider Name and Address Organization Details Last Updated DateTime 03/02/2019 120/68 mm[Hg] Brittaney Mcelroy MD [address] [facility], [address], [place], [address], [facility] 03/02/2019 06:55:54 Social History Question Answer Notes LastModified by Organizat ion Details LastModified Time Tobacco Smoking Status Former Smoker Not Available [facility] 02/14/2020 03:13:21 Do You Have An Advance Directive? Yes FULL CODE-undecide d About Dialysis And Nutrition-may Use Hydration [id number] Information not available 02/14/2020 How Many Years Have You Consumed Alcohol? 30 [id number] Information not available 02/14/2020 How Much Tobacco Do You Chew? None [id number] Information not available 02/14/2020 Do You Have A Medical Power Of Tourist Escort? Yes Hcp On File [id number] Information not available 02/14/2020 What Was The Date Of Your Most Recent Tobacco Screening? 02/25/2019 [id number] Information not available 02/14/2020 How Much Tobacco Do You Smoke? 1 PPD [id number] Information not available 02/14/2020 On What Date Was Tobacco Cessation Counseling Provided? 02/25/2019 NA [id number] Information not available 02/14/2020 How Many Years Have You Smoked Tobacco? 30 [id number] Information not available 02/14/2020 Sex: Unknown Functional Status Question Answer Note LastModified by Organizat ion Details LastModified Time What is your level of alcohol consumption? None quit drinking in 2015 [id number] Information not available 02/14/2020 Do you or have you ever used smokeless tobacco? Never used smokeless tobacco [id number] Information not available 02/14/2020 Do you or have you ever used e-cigarettes or vape? Never used electronic cigarettes [id number] Information not available 02/14/2020 Mental Status None recorded. Family History Nothing Reported. Medical History No medical history recorded. Past Encounters Encounter ID Performer Location Encounter Start Date Encounter Closed Date Diagnosis/Indication Diagnosis SNOMED-CT Code Diagnosis ICD10 Code Diagnosis Note [id number] FIDEL MAURO [address] [address] 02/25/2019 08:25:36 03/04/2019 13:41:33 Bacteremia 1906878 R78.81 completed treatmentm onitor dsg changes qdwet to dryareas clean Hyponatremia 71963170 E8 7.1 resolvedmo nitor labs Cirrhosis of liver K70.31 lactulose 30 mls tid 3-4 stools a dayspirono lactone 50 mg qdmonitoro n transplant listfollow s with [facility] Diabetes mellitus 640137 09 E11.9 lantus 8 units q [id number] here is 4.2monitor for s/s of hypo/hyper glycemia Gastroesop hageal reflux disease without esophagitis 544455866 K21.9 omeprazole 20 mg qdmonitor for symptoms Bacterial peritonitis 19 2063348 K65.2 recurrentc ipro 500 mg qd prophymoni tor for symptoms Edema of l ower extremity 342544594 R60.0 lasix 20 mg qdmonitor edema [id number] Brittaney Mcelroy MD [address] [address] 03/02/2019 06:54:11 03/04/2019 13:42:54 Cirrhosis of liver 32742586 K70.31 fu GIlactulos e 20 gm tidfurosem concetta 20 mg dailymagne sium 400 mg dailyspiro nolactone 25 mg dailyon transplant list [facility] Diabetes mellitus 075525 09 E11.9 Humalog per sliding scaleLantu s 8U dailywill monitor Gastroesop hageal reflux disease without esophagitis 047190695 K21.9 omeprazole 20 mg dailywill monitor Anemia 078947393 D50.8 suspect multifacto rial including GI blood loss, chronic diseaseawa it B12, folateiron 325 mg bidwill continue to monitor Bacteremia 3412546 R78.8 1 antibiotic s completedd aily dressing changes legfu surgery Bacterial peritonitis 19 0510308 K65.2 history of in pastCipro 500 mg daily for prophylaxi sfu GI [facility] Concerns Section Related Observation LastModified by Organization Detai ls LastModified Time None Recorded Concern Status LastModified by Organization Details LastModified Time None Recorded Advance Directives Directive Y: FULL CODE-undecided about dialysis and nutrition-may use hydration Payers Insurance Date Sequence Insurance Name Policy Number Policy Banks Covered Member ID Banks Member ID Guarantor Name 03/04/2019 2 [place] [employer] Edward aDnay [id number] Edward Danay 03/04/2019 1 [facility] - DOS PRIOR TO 2022 - DUAL ELIGIBLE (MEDICARE REPLACEMENT/AD VANTAGE - HMO) Edward Danay [id number] Edward Jon Notes Date Note Type Note Provider Name and Address Organization Details Recorded Time 02/25/2019 text/html A 54 year old ma le being seen for a initial intake note. Patient was at [facility] for fever and lower extremity edema/pain. He was transferred to [facility] for bacteremia. He grew ESBL E. Coli [...] of liver, GERD, DM, hyponatremia and SBP. FIDEL MAURO [address] [facility], [address], [place], [address], [facility] 02/25/2019 11:10:47 03/02/2019 text/html This 54 year old male was admitted to [facility] 02/23/19 for continued care and rehab after hospitalization for fever and lower extremity edema/pain. Patient has history of alcoholic liver disease and cirrhosis and is on transplant list. He was initially admitted to [facility], then transferred to [facility] for bacteremia. His blood cultures grew ESBL E. Coli and he started on antibiotics, initially Zosyn which was changed to meropenem, then ertapenem to complete a 10 day course. Patient has history recurrent bacteremia in past few months. During most recent prior [facility] admission, it was suspected that likely source of bacteremia was biliary. Patient had worsened R>L leg edema and US was negative at [facility] for DVT. CT of right lower extremity [...] hyponatremia. MOLST: full code Brittaney Mcelroy MD [address] [place] [address], [address], [place], [address], [facility] 03/02/2019 08:11:36
--- OUTSIDE RECORDS SUMMARY | 2024-10-20 09:23 | XMS_ITS | Encounter Summary ---
Author Organization [employer] Address [address] [place] [address] [address] [place] [address] Care Team Providers Care Specialist Field Engineer Name Role Phone Agustin Marrero MD Primary Care Provide r Reason for Visit * Reason Comments Med Refill Encounter Details Date Type Department Care Team ([facility] st Contact Info) Description 2024 Refill [facility] [address] [place], [place] [phone] Agustin Marrero MD [address] [place] [address] Social History Tobacco Use Types Packs/Day Years [...] Care Team (Late st Contact Info) Description 11/01/2024 9:15 AM EDT Office Visit [facility] [address] [place] [address] Agustin Marrero MD [address] [place] [address] 11/16/2024 10:00 AM EDT Office Visit [facility] [address] [place] [address] Catherine Antonio [address] [place] [address] 11/18/2024 11:30 AM EDT Clinical Support [facility] [address] [place] [address] Shwetha Collado, KATALINA [address] [place] [address] documented as of this encounter Visit Diagnoses Not on filedocumented in this encounter Additional Health Concerns Assessment Noted Time PHQ-9 Depression Total Score: 0 12/03/19 24 10:31 AM EDT documented as of this encounter Care Teams Specialist Field Engineer Relationship Specialty Start Date End Date Agustin Marrero MD [address] [place] [address] PCP - General Internal Medicine 01/25/14 [facility] 06/13/16 documented as of this encounter
== END 2024-10-20 09:59 | disposition home or self-care (01) ==
LOC: HO.HGI 09:08
PROVIDERS: PCP Internal Medicine; Visit Provider Internal Medicine Gastroenterology
DX: K21.9 Gastro-esophageal reflux disease without esophagitis (principal); R10.11 Right upper quadrant pain; K31.7 Polyp of stomach and duodenum; Z94.4 Liver transplant status
CPT/HCPCS: 99204

== ENCOUNTER → 2024-10-20 09:07 | Outpatient (BNVA) | payer OTHER, SELFPAY | PROVIDERS: PCP Internal Medicine; Visit Provider Internal Medicine Gastroenterology | DX: K21.9 Gastro-esophageal reflux disease without esophagitis (principal); Z94.4 Liver transplant status; Z12.11 Encounter for screening for malignant neoplasm of colon; R10.11 Right upper quadrant pain; K31.7 Polyp of stomach and duodenum | CPT/HCPCS: 99202 ==

== ENCOUNTER 2024-11-01 10:06 | Outpatient (REF) | payer OTHER, SELFPAY ==
--- OUTSIDE RECORDS SUMMARY | 2024-05-26 06:15 | XMS_ITS ---
Author Organization [facility] Reji bill [place] Address [address] [facility] [place] [address] Care Team Providers Care Cellophane Worker Name Role Phone Nura Connelly MD, Agustin Primary Care Provide r Unavailable Yovanny Long Unavailable [phone] REASON FOR VISIT last visit pcp 12/31/23, [...] Orally Once a day Active Vitamin D3 177004 UNIT/GM as directed Active Losartan Potassium 25 [...] nsmoker Encounters Encounter Location Date Provider Diagnosis [facility] [address] [place] [address] 05/26/2024 Yovanny Long Onychomycosis B35.1 ; Pain [...] Follow Up: 2 Months, Reason: Provider Name:Sun Sheppard anne marie, 11/03/2024 11:30:00 AM, [address] [place] [address], [place], [address], Procedure Notes * Category Sub-Category Detail Notes [...] to maintain effectiveness in symptomatic relief - 94755 Progress Notes * Edward JONDOB:[birth year] (59 yo M)Acc No.[id number]:05/26/2024 Progress Note Patient: Edward WINTER Provider: Kishan Long D.P.M. :1965 A ge:59 Y S ex:Male Date:05/26/2024 Address:[address] [place], [place] [address] Pcp:Agustin Connelly MD Subjective: * Chief Complaints: [...] enies. C ardiovascular: Pacemaker d enies. 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 W PW d enies. C [...] as directed Orally , Taking Vitamin D3 420876 UNIT/GM Powder as directed , Taking Losartan [...] DIABETES EYE EXAM D iabetic Retinopathy Screening: Jocelyn marie 08/2023 R etinal Screening Performed: Y es [...] T7, T8, T9. Assessment: * Assessment: 1. P ain in right toe(s) - M79.674 2 . O nychomycosis - B35.1 (Primary)? 3. P ain in left toe(s) - M79.675 Plan: * Treatment: * Procedures: Geetha oh Nail 6-10: Nail debridement D ue to [...] to maintain effectiveness in symptomatic relief - 23854. * Procedure Codes: 1 1721 DEBRIDE NAIL, 6 OR MORE * Follow Up: 2 Months * Images: * The named appointment provid er may or may not be the originator of this progress note, and it is not deemed complete until electronically signed by the appointment provider. Sign off status: Pending * Provider: Kishan Long D.P.M. Date: 0 05/26/2024 Generated for Francisco reagan/Eloina/Jayitting on: 0 11/01/2024 11:07 AM EDT History and Physical Notes * [...]
--- OUTSIDE RECORDS SUMMARY | 2024-11-01 11:07 | XMS_ITS | Encounter Summary ---
Author Organization [employer] Address [address] [place] [address] 7t [place] [address] Care Team Providers Care Costume Specialist Name Role Phone Agustin Marrero MD Primary Care Provide r Reason for Visit * Reason Comments Med Refill Encounter Details Date Type Department Care Team ([facility] st Contact Info) Description 2024 Refill [facility] MEDICINE [address] [place], [place] [phone] Agustin Marrero MD [address] [place] [address] Social History Tobacco Use Types Packs/Day Years [...] Care Team (Late st Contact Info) Description 11/16/2024 10:00 AM EDT Office Visit [facility] ADULT DENTAL [address] [place] [address] Paco, Catherine [address] [place] [address] 11/18/2024 11:30 AM EDT Clinical Support [facility] MEDICINE [address] [place] [address] Shwetha Collado, RN [address] [place] [address] documented as of this encounter Visit Diagnoses Not on filedocumented in this encounter Additional Health Concerns Assessment Noted Time PHQ-9 Depression Total Score: 0 12/03/19 24 10:31 AM EDT documented as of this encounter Care Teams Costume Specialist Relationship Specialty Start Date End Date Agustin Marrero MD [address] [place] [address] PCP - General Internal Medicine 01/25/14 [facility] 06/13/16 documented as of this encounter
--- OUTSIDE RECORDS SUMMARY | 2024-11-01 11:08 | XMS_ITS | Data Portability ---
Author Organization [place] [facility], Main Office Address [address] [facility] [place] [address] Care Team Providers Care Dumbwaiter Operator Name Role Phone MARICRUZ SARGENT - 2ND FLOOR OTHER Assessment Encounter Date Assessment Date Assessment LastModified by Organization Details LastModified Time 02/25/2019 02/25/2019 02/24/19 WBC 3.7, Hgb 7.5, Hct 22.4, Plt 59, Na 134, K 4.5, BUN 10, Bio Medical Technician 0.54, calc 7.8, tot prot 5.1, AST 69, ALT 33, A1c 4.2 02/23/19 WBC 3.4, Hgb 7.5, Hct 22.4, Plt 59, Na 128, K 4.3, BUN 11, Bio Medical Technician 0.56, silvia 7.6, tot prot 4.8, tot bili 4.1, AST 65, ALT 25 in hospital [facility] Not available 02/25/2019 10:15:55 Plan of [...] Gastroesop hageal reflux disease without esophagiti s 026033317 Active 2018 FIDEL MAURO [address] [facility], [address], [place], [address], [facility] 9 08:26:33 Cirrhosis of liver 58149095 Active 2018 on transplant list FIDEL MAURO [address] [facility], [address], [place], [address], [facility] 9 08:36:16 Diabetes mellitus 51607966 Active 2018 CACHORRO FIDEL CARLSON [address] [facility], [address], [place], [address], [facility] 9 08:28:07 Hyponatrem ia 44789249 Active 2018 CACHORROFIDEL LEON [address] [facility], [address], [place], [address], [facility] 9 08:28:22 Bacteremia 7910941 Active 2018 FIDEL MAURO [address] [facility], [address], [place], [address], [facility] 9 08:29:07 Bacterial peritoniti s 877820554 Active 2018 FIDEL MAURO [address] [facility], [facility] [address], [place], [address], [facility] 9 09:07:42 Edema of lower extremity 810613860 Active 2018 FIDEL MAURO [address] [facility], [address], [place], [address], [facility] 9 09:15:49 Abscess of lower leg 262072207 Active 2018 Brittaney cMelroy MD [address] [place] [address], [place] [address], [place], [address], [facility] 9 07:15:49 Anemia 935183581 Active 2018 Brittaney Mcelroy MD [address] [place] [address], [facility] [address], [place], [address], [facility] 9 07:16:47 Problem Notes None recorded. Medical Equipment None Reported. Allergies No known drug allergies Medications Not known to be on any medication Vitals Date Recorded Body weight Heart rate Respiratory rate Body temperature Oxygen saturation Oxygen saturation in Arterial blood by Pulse oximetry Systolic And Diastolic Provider Name and Address Organization Details Last Updated DateTime 9 [address]234.5 1 g 70 /min 20 /min 96.9 [degF] 98 % 98 % 128/74 mm[Hg] FIDEL MAURO [address] [facility], [address], [place], [address], [facility] 9 11:06:12 Date Recorded Systolic And Diastolic Provider Name and Address Organization Details Last Updated DateTime 03/02/2019 120/68 mm[Hg] Brittaney Mcelroy MD [address] [facility], [address], [place], [address], [facility] 03/02/2019 06:55:54 Social History Question Answer Notes LastModified by Organizat ion Details LastModified Time Tobacco Smoking Status Former Smoker Not Available [facility] 02/14/2020 03:13:21 Do You Have An Advance Directive? Yes FULL CODE-undecide d About Dialysis And Nutrition-may Use Hydration [id number] Information not available 02/14/2020 How Many Years Have You Consumed Alcohol? 30 [id number] Information not available 02/14/2020 How Much Tobacco Do You Chew? None [id number] Information not available 02/14/2020 Do You Have A Medical Power Of Business Developer? Yes Hcp On File [id number] Information not available 02/14/2020 What Was The Date Of Your Most Recent Tobacco Screening? 02/25/2019 [id number] Information not available 02/14/2020 How Much Tobacco Do You Smoke? 1 PPD [id number] Information not available 02/14/2020 On What Date Was Tobacco Cessation Counseling Provided? 02/25/2019 NA [id number] Information not available 02/14/2020 How Many Years Have You Smoked Tobacco? 30 [id number] Information not available 02/14/2020 Sex: Unknown Functional Status Question Answer Note LastModified by Organizat ion Details LastModified Time What is your level of alcohol consumption? None quit drinking in 2015 [id number] Information not available 02/14/2020 Do you or have you ever used smokeless tobacco? Never used smokeless tobacco [id number] Information not available 02/14/2020 Do you or have you ever used e-cigarettes or vape? Never used electronic cigarettes [id number] Information not available 02/14/2020 Mental Status None recorded. Family History Nothing Reported. Medical History No medical history recorded. Past Encounters Encounter ID Performer Location Encounter Start Date Encounter Closed Date Diagnosis/Indication Diagnosis SNOMED-CT Code Diagnosis ICD10 Code Diagnosis Note [id number] [address]URO [address] [address] 02/25/2019 08:25:36 03/04/2019 13:41:33 Bacteremia 6982304 R78.81 completed treatmentm onitor dsg changes qdwet to dryareas clean Hyponatremia 56092454 E8 7.1 resolvedmo nitor labs Cirrhosis of liver K70.31 lactulose 30 mls tid 3-4 stools a dayspirono lactone 50 mg qdmonitoro n transplant listfollow s with [facility] Diabetes mellitus 624403 09 E11.9 lantus 8 units q swIGHR5l here is 4.2monitor for s/s of hypo/hyper glycemia Gastroesop hageal reflux disease without esophagitis 343797177 K21.9 omeprazole 20 mg qdmonitor for symptoms Bacterial peritonitis 19 4102141 K65.2 recurrentc ipro 500 mg qd prophymoni tor for symptoms Edema of l ower extremity 711461991 R60.0 lasix 20 mg qdmonitor edema [id number] Brittaney Mcelroy MD [address] [address] 03/02/2019 06:54:11 03/04/2019 13:42:54 Cirrhosis of liver 92027076 K70.31 fu GIlactulos e 20 gm tidfurosem concetta 20 mg dailymagne sium 400 mg dailyspiro nolactone 25 mg dailyon transplant list [facility] Diabetes mellitus 761688 09 E11.9 Humalog per sliding scaleLantu s 8U dailywill monitor Gastroesop hageal reflux disease without esophagitis 859097097 K21.9 omeprazole 20 mg dailywill monitor Anemia 426091471 D50.8 suspect multifacto rial including GI blood loss, chronic diseaseawa it B12, folateiron 325 mg bidwill continue to monitor Bacteremia 8950948 R78.8 1 antibiotic s completedd aily dressing changes legfu surgery Bacterial peritonitis 19 7160802 K65.2 history of in pastCipro 500 mg daily for prophylaxi sfu GI [facility] Concerns Section Related Observation LastModified by Organization Detai ls LastModified Time None Recorded Concern Status LastModified by Organization Details LastModified Time None Recorded Advance Directives Directive Y: FULL CODE-undecided about dialysis and nutrition-may use hydration Payers Insurance Date Sequence Insurance Name Policy Number Policy Banks Covered Member ID Banks Member ID Guarantor Name 03/04/2019 2 [place] Edward Danay [id number] Edward Danay 03/04/2019 1 [facility] - DOS PRIOR TO 2022 - DUAL ELIGIBLE (MEDICARE REPLACEMENT/AD VANTAGE - HMO) Edward Danay [id number] Edward Jon Notes Date Note Type Note Provider Name and Address Organization Details Recorded Time 02/25/2019 text/html A 54 year old ma le being seen for a initial intake note. Patient was at [facility] for fever and lower extremity edema/pain. He was transferred to [facility] for bacteremia. He grew ESBL E. [...] DM, hyponatremia and SBP. FIDEL MAURO [address] [facility], [address], [place], [address], [facility] - [facility] 02/25/2019 11:10:47 03/02/2019 text/html This 54 year old male was admitted to [facility] 02/23/19 for continued care and rehab after hospitalization for fever and lower extremity edema/pain. Patient has history of alcoholic liver disease and cirrhosis and is on transplant list. He was initially admitted to [facility], then transferred to [facility] for bacteremia. His blood cultures grew ESBL E. Coli and he started on antibiotics, initially Zosyn which was changed to meropenem, then ertapenem to complete a 10 day course. Patient has history recurrent bacteremia in past few months. During most recent prior [facility] admission, it was suspected that likely source of bacteremia was biliary. Patient had worsened R>L leg edema and US was negative at [facility] for DVT. CT of right [...] hyponatremia. MOLST: full code Brittaney Mcelroy MD [address] [place] [address], [address], [place], [address], [facility] 03/02/2019 08:11:36
--- OUTSIDE RECORDS SUMMARY | 2024-11-01 11:08 | XMS_ITS | Encounter Summary ---
Author Organization [facility] Address [address] [place] [address] Care Team Providers Care Die Forger Name Role Phone Agustin Mix Primary Care Provider + Encounter Details Date Type Department Care Team (Late st Contact Info) Description 07/23/2023 Orders Only [facility] Interventional Radiology [address] [place] [address] Pawel Sanchez MD [address] [place] [address] Social History Tobacco Use Types Packs/Day Years [...] Info) Description 02/06/2025 9:30 AM EDT Follow-Up [facility] Liver Transplant Services [address] [place] [address] Dylan Phelps MD [address] [place] [address] documented as of this encounter Visit Diagnoses Not on filedocumented in this encounter Care Teams Die Forger Relationship Specialty Start Date End Date Agustin Mix [address] [place] [address] PCP - General Internal Medicine 04/15/17 documented as of this encounter
[2024-11-01 12:00] LABS: Alanine Aminotransferase 40 U/L (0-40); Albumin Level 4.6 g/dL (3.5-5.0); Alkaline Phosphatase 112 U/L (39-117); Anion Gap 13 (12-20); Aspartate Amino Transferase 26 U/L (5-37); Blood Urea Nitrogen 21 mg/dL (9-16); Calcium 9.5 mg/dL (8.4-10.2); Carbon Dioxide 27 mmol/L (22-29); Chloride 106 mmol/L (96-108); Estimated Glomerular Filt Rate 57; Potassium 4.8 mmol/L (3.3-5.1); Sodium 141 mmol/L (135-145); Total Protein 6.9 g/dL (6.5-8.0)
[2024-11-05 20:28] LABS: Testosterone, Free 25.0 pg/mL (35.0-155.0)
[2024-11-08 03:08] LABS: Estradiol Ultra Sensitive 21 pg/mL (< OR = 29)
[2024-11-09 14:14] LABS: Follicle Stimulating Hormone 42.0 mIU/mL (1.4-12.8); Prolactin Undiluted 5.4 ng/mL (2.0-18.0)
== END 2024-11-01 10:07 | disposition home or self-care (01) ==
LOC: HO.HHCL 10:06
PROVIDERS: PCP Internal Medicine; Visit Provider Internal Medicine
DX: N62 Hypertrophy of breast (principal)
CPT/HCPCS: 36415; 80053; 82670; 83001; 83002; 84146; 84402; 84403; 84443; 99212

== ENCOUNTER 2024-11-01 13:12 | Outpatient (AMB) | payer OTHER, SELFPAY ==
--- NOTE | 2024-11-01 13:14 | MHC.OFFVIS ---
Intake Visit Reasons: 6m Followup Intake Note: Patient is present for 6M/ Erectile dysfunction Urology Medication:SILDENAFIL,Tadalafil Antibiotic Allergy:NONE Blood Thinner:NONE Shaft Mechanic Required: No Accompanied by: Self / Same As Patient Allergies No Known Allergies (No Known Allergies*) Allergy (Verified 11/01/24 13:15) HPI Comments Details: Edward is a male. He is a patient of . He seen for the following urologic conditions - erectile dysfunction Albanian interpretation provided by qualified medical doctor md in office Six-month follow-up penile prosthetic Doing well. Did discuss using medication for glandular response. Erectile dysfunction - penile prosthetic February 2024 Longstanding Had liver transplant in mid 2019 Has been using 200 mg of Viagra with minimal success Associated symptoms including weakness of stream and incomplete bladder emptying PSA low PFSH Medical History (Updated 10/20/24 @ 10:10 by Shelley Kelly MD) Liver failure Hx of hepatitis Anxiety and depression Tubular adenoma of colon Diabetes 1.5, managed as type 2 Hx of substance abuse GERD (gastroesophageal reflux disease) Surgical History History of surgery on lower extremity History of local excision of skin lesion (04/16/23) Hx of colonoscopy Hx of esophagogastroduodenoscopy History of open reduction and internal fixation (ORIF) procedure History of appendectomy S/P liver transplant Social History Household Members: None Are you a primary progressive care unit registered nurse to a significant other at home: No Do you presently have visiting nurse or other home services: No Alcohol intake: never Patient Tobacco Use Status: Former Tobacco user Tobacco use type: Cigarette Years Smoked: 15 Current occupational status: disabled Review of Systems Const Denies chills and Denies fever(s) Card Reports no additional complaints and Denies syncope Resp Denies cough GI Denies abdominal pain and Denies heartburn Reports as per HPI and Denies change in libido Neuro Denies syncope Psych Denies change in libido Endo Denies change in libido Physical Exam Const General: cooperative, healthy appearing, comfortable and no acute distress Orientation/consciousness: patient oriented x3 HEENT Face and sinus: Yes normal facial exam Mouth: moist mucous membranes Neck Neck: Yes normal visual inspection, Yes full ROM and Yes trachea midline Chest Chest palpation & inspection: normal inspection of the chest Resp Effort & Inspection: normal respiratory effort, able to speak in complete sentences and no respiratory distress GI Inspection: Yes normal to inspection Back/Spine/Pelvis Cervical Spine: normal cervical lordosis Thoracic/Lumbar Spine: thoracic and lumbar spine normal to inspection Skin General skin exam: no rashes or lesions noted Neuro General: patient oriented x3, gait normal, tone normal and moves all extremities Extrem General: Yes normal to inspection and Yes capillary refill normal Assessment & Plan Assessment & Plan (1) Erectile dysfunction due to arterial insufficiency: Comment: Trial 10 mg tadalafil daily Code(s): N52.01 - Erectile dysfunction due to arterial insufficiency Category: Medical Plan Twelve month follow-up Patient Instructions: This note is constructed using voice recognition software. While every effort has been made to ensure accuracy matchbook assembler errors may have been included. Imaging studies, laboratory and physical exam results were discussed and reviewed in detail. No major barriers to patient understanding were identified. An opportunity to ask questions regarding the treatment plan was provided. All questions were answered. The patient expressed understanding and agreement with the above treatment plan. The patient is aware they should contact our office by phone for worsening of their current condition or the appearance of new urologic symptoms. Compliance is encouraged with any medications and followup testing that is ordered. It is a privilege to participate in the urologic care of your patient. If you have any questions or concerns regarding treatment for the above conditions, or other urologic issues, please do not hesitate to contact me. The office telephone contact is [phone]. Sincerely, Dr Leonidas Miranda MD, [facility] - Urology Compassionate Specialist Care for the Genitourinary System Coding Level of Care Code Est Pt Level 3 (05804) Diagnoses Erectile dysfunction due to arterial insufficiency N52.01
== END 2024-11-01 14:00 | disposition home or self-care (01) ==
LOC: HO.HUSH 13:13
PROVIDERS: PCP Internal Medicine; Visit Provider Urology
DX: N52.01 Erectile dysfunction due to arterial insufficiency (principal)
CPT/HCPCS: 99213

== ENCOUNTER 2024-11-23 06:49 | Outpatient (REF) | payer OTHER, SELFPAY ==
[2024-11-23 07:09] LABS: MANUAL DIFF FLAG NO
[2024-11-23 08:00] LABS: Hematocrit 38.6 % (42.0-52.0); Hemoglobin 14.0 g/dl (14.0-18.0); Imm Gran Abs Auto 0.02 X10*3/uL (0.00-0.03); Imm Gran Pct Auto 0.4 % (0.0-0.4); Lymphocytes Absolute Auto 1.5 X10*3/uL (1.2-4.9); Mean Corpuscular HGB Conc 36.3 g/dl (31.0-36.0); Mean Corpuscular Hemoglobin 30.1 pg (27.0-33.0); Mean Corpuscular Volume 83.0 fL (80.0-98.0); NRBC Abs Auto 0.000 X10*3/uL (0.0-0.012); NRBC Pct Auto 0.0 /100WBC (0.0-0.2); Platelet Count 125 X10*3/uL (160-400); Red Blood Count 4.65 X10*6/uL (4.60-5.80); White Blood Count 5.0 X10*3/uL (4.8-10.8)
[2024-11-23 08:15] LABS: Alanine Aminotransferase 32 U/L (0-40); Albumin Level 4.6 g/dL (3.5-5.0); Alkaline Phosphatase 92 U/L (39-117); Anion Gap 11 (12-20); Aspartate Amino Transferase 29 U/L (5-37); Blood Urea Nitrogen 18 mg/dL (9-16); Calcium 9.1 mg/dL (8.4-10.2); Carbon Dioxide 24 mmol/L (22-29); Chloride 106 mmol/L (96-108); Estimated Glomerular Filt Rate > 60; Magnesium 1.5 mg/dL (1.6-2.6); Potassium 4.6 mmol/L (3.3-5.1); Sodium 136 mmol/L (135-145); Total Protein 6.9 g/dL (6.5-8.0)
[2024-11-24 08:29] LABS: Tacrolimus Prograf 3.7 mcg/L
== END 2024-11-23 06:50 | disposition home or self-care (01) ==
LOC: HO.LABR 06:49
PROVIDERS: PCP Internal Medicine; Visit Provider Internal Medicine
DX: Z85.05 Personal history of malignant neoplasm of liver (principal); Z79.899 Other long term (current) drug therapy; Z94.4 Liver transplant status
CPT/HCPCS: 36415; 80053; 80197; 82105; 83735; 85025

== ENCOUNTER 2024-12-13 08:24 | Outpatient (AMB) | payer OTHER, SELFPAY ==
--- OUTSIDE RECORDS SUMMARY | 2024-08-29 07:00 | XMS_ITS ---
Author Organization [facility] Address [address] [facility] [address] Care Team Providers Care Facilities Clerk Name Role Phone Nura Connelly MD, Agustin Primary Care Provide r Unavailable Sun Jj Unavailable [phone] Encounters Encounter Location Date Provider Diagnosis [address] [address] 08/29/2024 Sun Jj Plan Of Treatment Next Appt Details Provider Name:Sun kenney, 01/12/2025 10:30:00 AM, [address] [facility], [place], [address], Progress Notes * Edward JONDOB:[birth year] (59 yo M)Acc No.[id number]:08/29/2024 Progress Note Patient: Edward WINTER Provider: Hola Jj DPM :1965 A ge:59 Y S ex:Male Date:08/29/2024 Address:[address] [place] [address] [address], [place] Pcp:Agustin Connelly MD Subjective: * Chief Complaints: [...] 08/29/2024 Generated for Francisco reagan/Eloina/Jayitting on: 0 12/13/2024 08:36 AM EDT
[2024-12-13 08:28] VITALS: BP 102/62; PULSE 81; BMI 31.1
--- NOTE | 2024-12-13 08:28 | A.OFFVIS_ITS ---
Vital Signs 12/13/24 08:28 Height 5 ft 7 in Weight 198 lb 6.656 oz BMI 31.1 BP 102/62 Blood Pressure Location Rt brachial Position Sitting Pulse 81 Pulse Source Pulse Oximeter Intake Visit Reasons: Gynecomastia Intake Note: New patient externally referred by PCP for Gynecomastia. Geology Instructor Required: Yes Geology Instructor Language: Straightener And Aligner Services: Geology Instructor Present Geology Instructor Name: [facility] Aurelio Information Interpreted: non-clinical & clinical Accompanied by: Self / Same As Patient Allergies No Known Allergies (No Known Allergies*) Allergy (Verified 12/13/24 08:29) Medication List - Last Reconciled 12/13/24 by Freddy Sunshine MD bisacodyl (Dulcolax (bisacodyl)) 20 mg (4 x 5 mg) PO ONCE 1 day blood sugar diagnostic (FreeStyle Lite Strips) As directed cholecalciferol (vitamin D3) (Vitamin D3) 50 mcg PO DAILY ciprofloxacin HCl 250 mg PO DAILY 5 days insulin aspart U-100 (Novolog FlexPen U-100 Insulin aspart) 4 - 9 units subcut TIDAC insulin glargine (Lantus Solostar U-100 Insulin) 24 units subcut BEDTIME magnesium oxide (MagOx) 400 mg PO DAILY omeprazole 20 mg PO DAILY polyethylene glycol 3350 (Miralax) 17 grams PO DAILY 1 day sildenafil (Viagra) 100 mg PO DAILY PRN tramadol 1 tab PO Q8H PRN zolpidem 1 tab PO BEDTIME PRN HPI Comments Details: 59 YO Male with PMHx liver failure S/P transplant who is seen in consultation at the request of his PCP for Hypogonadism as well as gynecomastia. Gynecomastia developed 3 yrs ago . Is become better , Uncomfortable but no pain . There is no breast discharge First diagnosed with Hypogonadism after transplant with labs revealing low testosterone and high gonadotropins. Not Was started on Testosterone supplementation Currently not achieving spontaneous am erections, and able to achieve erection when desired with pump . Reports good libido. Decreased facial hair and shaving frequency. Denies any change in size or shape of testicles. Denies penile discharge or scrotal tenderness. Denies any history of mumps orchitis. Denies any head trauma. Denies history of JERMAIN. with 2 children who were conceived spontaneously. Sense of smell intact. Denies headache or visual changes, or galactorrhea. Denies orthostatic symptoms, weight loss. Denies change in size of hands or feet. Denies hair loss, weight gain, cold intolerance. History of DVT or PE: [] Denies use of opioids or Suboxone. Denies use of marijuana Labs: PSA CBC [facility] Medical History (Updated 12/13/24 @ 08:33 by Freddy Sunshine MD) Gynecomastia Liver failure Hx of hepatitis Anxiety and depression Tubular adenoma of colon Diabetes 1.5, managed as type 2 Hx of substance abuse GERD (gastroesophageal reflux disease) Surgical History History of surgery on lower extremity History of local excision of skin lesion (04/16/23) Hx of colonoscopy Hx of esophagogastroduodenoscopy History of open reduction and internal fixation (ORIF) procedure History of appendectomy S/P liver transplant Family History Mother Cancer Father Diabetes Congenital heart problem Social History Household Members: None Are you a primary respiratory care specialist to a significant other at home: No Do you presently have visiting nurse or other home services: No Alcohol intake: never Patient Tobacco Use Status: Former Tobacco user Tobacco use type: Cigarette Years Smoked: 15 Current occupational status: disabled Physical Exam Vital Signs: Last Vital Signs Pulse 81 12/13/24 08:28 BP 102/62 12/13/24 08:28 BMI result Body Mass Index 31.1 Const Other: Absence of cushingoid features. Examination of the chest reveals presence of bilateral breast tissue without discrete mass or discharge . Thyroid gland is normal size weighs about 15 g. There are no thyroid nodules palpated. Examination of the genitalia reveals Santos stage V he had development. Testes are of small size and soft consistency Assessment & Plan Assessment & Plan (1) Gynecomastia: Code(s): N62 - Hypertrophy of breast Category: Medical Plan: This is a 59-year-old male with a history of gynecomastia and workup suggestive of primary hypogonadism. Rule out testicular tumor.(Pt has ultrasound of testes ordered by PCP) Plan is to check a beta HCG, ferritin level as well get bilateral mammogram bilaterally to rule out mass. Once above is obtained, could consider initiation of testosterone (preferred transdermal) to treat primary hypogonadism and possibly provide some regression breast tissue . Orders: Orders Ferritin Today N62 - Hypertrophy of breast HCG Quantitative Today N62 - Hypertrophy of breast MM diagnostic mammo unilat LT Today N62 - Hypertrophy of breast MM diagnostic mammo unilat RT Today N62 - Hypertrophy of breast Coding Level of Care Code New Pt Level 4 (23382) Diagnoses Gynecomastia N62
--- OUTSIDE RECORDS SUMMARY | 2024-12-13 08:35 | XMS_ITS | Encounter Summary ---
Author Organization [employer] Address [address] [place] [address] [address] [place] [address] Care Team Providers Care Construction Site Crossing Guard Name Role Phone Agustin Marrero MD Primary Care Provide r Reason for Visit * Reason Comments Med Refill Encounter Details Date Type Department Care Team ([facility] st Contact Info) Description 11/02/2023 Refill [facility] MEDICINE [address] [place], [place] [phone] Lela Wu MD [address] [place], [place] [phone] Primary insomnia Social History Tobacco Use Types [...] Care Team (Late st Contact Info) Description 01/06/2025 11:30 AM EDT Clinical Support [facility] MEDICINE [address] [place] [address] Shwetha Collado RN [address] [place] [address] 05/31/2025 8:00 AM EST Office Visit [facility] ADULT DENTAL [address] [place] [address] Paco, Catherine [address] [place] [address] documented as of this encounter Visit Diagnoses Diagnosis Primary insomnia Persistent disorder of initiating or maintaining sleep documented in this encounter Additional Health Concerns Assessment Noted Time PHQ-9 Depression Total Score: 5 06/16/19 24 9:35 AM EST documented as of this encounter Care Teams Construction Site Crossing Guard Relationship Specialty Start Date End Date Agustin Marrero MD [address] [place] [address] PCP - General Internal Medicine 01/25/14 [facility] 06/13/16 documented as of this encounter
--- OUTSIDE RECORDS SUMMARY | 2024-12-13 08:35 | XMS_ITS | Encounter Summary ---
Author Organization [employer] Address [address] [place] [address] 7t [place] [address] Care Team Providers Care Funeral Arranger Name Role Phone Agustin Marrero MD Primary Care Provide r Encounter Details Date Type Department Care Team ([facility] st Contact Info) Description 12/24/2023 Telephone [facility] MEDICINE [address] [place], [place] [phone] Agustin Marrero MD [address] [place], [place] [phone] Social History Tobacco Use Types Packs/Day Years [...] Description 01/06/2025 11:30 AM EDT Clinical Support [facility] MEDICINE [address] [place] [address] Shwetha Collado, KATALINA [address] [place] [address] 05/31/2025 8:00 AM EST Office Visit [facility] ADULT DENTAL [address] [place] [address] Paco, Catherine [address] [place] [address] documented as of this encounter Visit Diagnoses Not on filedocumented in this encounter Additional Health Concerns Assessment Noted Time PHQ-9 Depression Total Score: 0 12/03/19 10:31 AM EDT documented as of this encounter Care Teams Funeral Arranger Relationship Specialty Start Date End Date Agustin Marrero MD [address] [place] [address] PCP - General Internal Medicine 01/25/14 [facility] 06/13/16 documented as of this encounter
--- OUTSIDE RECORDS SUMMARY | 2024-12-13 08:35 | XMS_ITS | Encounter Summary ---
Author Organization [employer] Address [address] [place] [address] 7 [place] [address] Care Team Providers Care Eligibility Examiner Name Role Phone Agustin Marrero MD Primary Care Provide r Reason for Visit * Reason Onset Date Comments fyi 12/13/2024 Encounter Details Date Type Department Care Team ([facility] st Contact Info) Description 12/13/2024 Telephone [facility] MEDICINE [address] [place], [place] [phone] Agustin Marrero MD [address] [place], [place] [phone] fyi Social History Tobacco Use Types Packs/Day Years Used Date Smoking Tobacco: Former Cigarettes Q uit: 07/05/2009 Passive Smoke Exposure: Past Smokeless Tobacco: Never Alcohol Use Standard Drinks/Week Comments Never 0 (1 standard drink = 0.6 oz pur e alcohol) Depression Answer Date Recorded Patient Health Questionnaire-9 Score 0 11/01/2024 Patient Health Questionnaire-9 Score 0 11/01/2024 Last PHQ-9: Questionnaire Data Not on file 0 11/01/2024 Housing Stability Answer Date Recorded What is your housing situation today? I have fay gonsalez 11/01/[address] you li ve. Do you have problems with any of the following? None of the above 11/01/2024 Food Insecurity Answer Date Recorded Within the past 12 months, y ou worried that your food would run out before you got money to buy more: Never True 11/01/2024 Within the past 12 months,th e food you bought just didn't last and you didn't have enough money to get more: Never True Transportation Answer Date Recorded In the past 12 months, has l ack of transportation kept you from medical appts, meetings, work or from getting things needed for daily living? No 11/01/2024 Utilities Answer Date Recorded In the past 12 months, has t he electric, gas, oil or water company threatened to shut off services in your home? No 11/01/2024 Depression Answer Date Recorded Patient Health Questionnaire-2 Score 0 11/01/2024 Internet Access Answer Date Recorded Internet Access Q1 Yes 11/29/2024 Internet Access Q2 Not on file 11/29/2024 Sex and Gender Information Value Date Recorded Sex Assigned at Male 02/17/2022 10:14 AM EDT Legal Sex Male 10:14 AM EDT Gender Identity Male 02/17/2022 10:14 AM EDT Sexual Orientation Straight 02/17/2022 10 :14 AM EDT documented as of this encounter Miscellaneous Notes * Telephone Encounter - Jon Chan - 12/13/2024 8:16 AM EDT Tc from Jessica at [facility] called to inform that pt had a elevated diastolic bp , 164/105. Pt denies any cardiac symptoms. Contact Jessica at [phone] documented in this encounter Plan of Treatment Upcoming Encounters Date Type Department Care Team (Late st Contact Info) Description 01/06/2025 11:30 AM EDT Clinical Support [facility] MEDICINE [address] [place] [address] Shwetha Collado RN [address] [place] [address] 05/31/2025 8:00 AM EST Office Visit [facility] ADULT DENTAL [address] [place] [address] Catherine Antonio [address] [place] [address] documented as of this encounter Visit Diagnoses Not on filedocumented in this encounter Additional Health Concerns Assessment Noted Time PHQ-9 Depression Total Score: 0 11/02/19 25 9:25 AM EDT documented as of this encounter Care Teams Eligibility Examiner Relationship Specialty Start Date End Date Agustin Marrero MD [address] [place] [address] PCP - General Internal Medicine 01/25/14 [facility] 06/13/16 documented as of this encounter
--- OUTSIDE RECORDS SUMMARY | 2024-12-13 08:35 | XMS_ITS | Encounter Summary ---
Author Organization [employer] Address [address] [place] [address] 7t [place] [address] Care Team Providers Care Manager Administrative Name Role Phone Agustin Marrero MD Primary Care Provide r Reason for Visit * Reason Comments Med Refill Encounter Details Date Type Department Care Team ([facility] st Contact Info) Description 12/24/2023 Refill [facility] MEDICINE [address] [place], [place] [phone] Agustin Marrero MD [address] [place], [place] [phone] Chronic midline low back pain without sciatica [...] Description 01/06/2025 11:30 AM EDT Clinical Support [facility] MEDICINE [address] [place] [address] Shwetha Collado, KATALINA [address] [place] [address] 05/31/2025 8:00 AM EST Office Visit [facility] ADULT DENTAL [address] [place] [address] Paco, Catherine [address] [place] [address] documented as of this encounter Visit Diagnoses Diagnosis Chronic midline low back pain without sciatica documented in this encounter Additional Health Concerns Assessment Noted Time PHQ-9 Depression Total Score: 0 12/03/19 24 10:31 AM EDT documented as of this encounter Care Teams Manager Administrative Relationship Specialty Start Date End Date Agustin Marrero MD [address] [place] [address] PCP - General Internal Medicine 01/25/14 [facility] 06/13/16 documented as of this encounter
--- OUTSIDE RECORDS SUMMARY | 2024-12-13 08:35 | XMS_ITS | Encounter Summary ---
Author Organization [employer] Address [address] [place] [address] 7t [place] [address] Care Team Providers Care Vault Maker Name Role Phone Agustin Marrero MD Primary Care Provide r Reason for Visit * Reason Comments Med Refill Encounter Details Date Type Department Care Team ([facility] st Contact Info) Description 2024 Refill [facility] MEDICINE [address] [place], [place] [phone] Agustin Marrero MD [address] [place] [address] Social History Tobacco Use Types Packs/Day Years [...] Description 01/06/2025 11:30 AM EDT Clinical Support [facility] MEDICINE [address] [place] [address] Shwetha Collado RN [address] [place] [address] 05/31/2025 8:00 AM EST Office Visit [facility] ADULT DENTAL [address] [place] [address] Paco, Catherine [address] [place] [address] documented as of this encounter Visit Diagnoses Not on filedocumented in this encounter Additional Health Concerns Assessment Noted Time PHQ-9 Depression Total Score: 0 12/03/19 24 10:31 AM EDT documented as of this encounter Care Teams Vault Maker Relationship Specialty Start Date End Date Agustin Marrero MD [address] [place] [address] PCP - General Internal Medicine 01/25/14 [facility] 06/13/16 documented as of this encounter
--- OUTSIDE RECORDS SUMMARY | 2024-12-13 08:35 | XMS_ITS | Encounter Summary ---
Author Organization [employer] Address [address] [place] [address] 7 [place] [address] Care Team Providers Care Direct Care Staffer Name Role Phone Agustin Marrero MD Primary Care Provide r Reason for Visit * Reason Comments Med Refill Encounter Details Date Type Department Care Team ([facility] st Contact Info) Description 12/10/2024 Refill [facility] MEDICINE [address] [place], [place] [phone] Agustin Marrero MD [address] [place] [address] Social History Tobacco Use Types Packs/Day Years [...] Description 01/06/2025 11:30 AM EDT Clinical Support [facility] MEDICINE [address] [place] [address] Shwetha Collado, KATALINA [address] [place] [address] 05/31/2025 8:00 AM EST Office Visit [facility] ADULT DENTAL [address] [place] [address] Paco, Catherine [address] [place] [address] documented as of this encounter Visit Diagnoses Not on filedocumented in this encounter Additional Health Concerns Assessment Noted Time PHQ-9 Depression Total Score: 0 11/02/19 25 9:25 AM EDT documented as of this encounter Care Teams Direct Care Staffer Relationship Specialty Start Date End Date Agustin Marrero MD [address] [place] [address] PCP - General Internal Medicine 01/25/14 [facility] 06/13/16 documented as of this encounter
--- OUTSIDE RECORDS SUMMARY | 2024-12-13 08:36 | XMS_ITS | Encounter Summary ---
Author Organization [employer] Address [address] [place] [address] 7 [place] [address] Care Team Providers Care Hoseman Name Role Phone Agustin Marrero MD Primary Care Provide r Reason for Visit * Reason Onset Date Comments Med Refill 09/13/2024 Encounter Details Date Type Department Care Team ([facility] st Contact Info) Description 09/13/2024 Telephone [facility] MEDICINE [address] [place], [place] [phone] Agustin Marrero MD [address] [place], [place] [phone] Med Refill Social History Tobacco Use Types [...] Telephone Encounter - Patti White LPN - 09/13/2024 10:31 AM EDT Medication pended to PCP. * Telephone Encounter - Manjeet Mclaughlin - 09/13/2024 10:23 AM EDT TC from pt requesting medication refill. Medications needing refill : gabapentin (Neurontin) 300 MG capsule To be sent to: [facility]/pharmacy [address] [place] [address] documented in this encounter Plan of Treatment Upcoming Encounters Date Type Department Care Team (Late st Contact Info) Description 01/06/2025 11:30 AM EDT Clinical Support [facility] MEDICINE [address] [place] [address] Shwetha Collado RN [address] [place] [address] 05/31/2025 8:00 AM EST Office Visit [facility] ADULT DENTAL [address] [place] [address] Catherine Antonio [address] [place] [address] documented as of this encounter Visit Diagnoses Not on filedocumented in this encounter Additional Health Concerns Assessment Noted Time PHQ-9 Depression Total Score: 0 12/03/19 24 10:31 AM EDT documented as of this encounter Care Teams Hoseman Relationship Specialty Start Date End Date Agustin Marrero MD [address] [place] [address] PCP - General Internal Medicine 01/25/14 [facility] 06/13/16 documented as of this encounter
--- OUTSIDE RECORDS SUMMARY | 2024-12-13 08:36 | XMS_ITS | Encounter Summary ---
Author Organization [employer] Address [address] [place] [address] 7 [place] [address] Care Team Providers Care Manager Math Name Role Phone Agustin Marrero MD Primary Care Provide r Reason for Visit * Reason Comments Med Refill Encounter Details Date Type Department Care Team (Late st Contact Info) Description 05/14/2022 Refill [facility] MEDICINE [address] [place], [place] [phone] Agustin Marrero MD [address] [place] [address] Chronic midline low back pain without sciatica [...] Encounters Date Type Department Care Team (Late Contact Info) Description 01/06/2025 11:30 AM EDT Clinical Support [facility] MEDICINE [address] [place] [address] Shwetha Collado, RN [address] [place] [address] 05/31/2025 8:00 AM EST Office Visit [facility] ADULT DENTAL [address] [place] [address] Paco, Catherine [address] [place] [address] documented as of this encounter Visit Diagnoses Diagnosis Chronic midline low back pain without sciatica documented in this encounter Care Teams Manager Math Relationship Specialty Start Date End Date Agustin Marrero MD [address] [place] [address] PCP - General Internal Medicine 01/25/14 [facility] 06/13/16 documented as of this encounter
--- OUTSIDE RECORDS SUMMARY | 2024-12-13 08:36 | XMS_ITS | Encounter Summary ---
Author Organization [facility] Address [address] [place] [address] Care Team Providers Care Talent Acquisition Partner Name Role Phone Agustin Mix Primary Care Provider + Encounter Details Date Type Department Care Team (Late st Contact Info) Description 06/28/2020 Telephone [facility] Central Scheduling Department [address] [place] [address] Telephone Intake, Staff Social History Tobacco Use [...] and can be reached at phone number [phone]. Thank you documented in this encounter Plan of Treatment Upcoming Encounters Date Type Department Care Team (Late st Contact Info) Description 02/06/2025 9:30 AM EDT Follow-Up [facility] Transplant Services [address] [place] [phone] Dylan Phelps MD [address] [place], [place] [phone] documented as of this encounter Visit Diagnoses Not on filedocumented in this encounter Care Teams Talent Acquisition Partner Relationship Specialty Start Date End Date Agustin Mix [address] [place] [address] PCP - General Internal Medicine 04/15/17 documented as of this encounter
--- OUTSIDE RECORDS SUMMARY | 2024-12-13 08:36 | XMS_ITS | Encounter Summary ---
Author Organization [employer] Address [address] [place] [address] 7 [place] [address] Care Team Providers Care Digital Marketing Strategist Name Role Phone Agustin Marrero MD Primary Care Provide r Reason for Visit * Reason Onset Date Comments Med Refill 10/04/2024 Encounter Details Date Type Department Care Team ([facility] st Contact Info) Description 10/04/[address] [facility] MEDICINE [address] [place], [place] [phone] Agustin Marrero MD 230 [place], [place] [phone] Med Refill Social History Tobacco Use Types [...] * Telephone Encounter - Manjeet Mclaughlin - 10/04/2024 1:35 PM EDT TC from pt requesting medication refill. Medications needing refill : TraMADol (Ultram) 50 MG tablet To be sent to: [facility]/pharmacy #[id number] [place] [address] documented in this encounter Plan of Treatment Upcoming Encounters Date Type Department Care Team (Late st Contact Info) Description 01/06/2025 11:30 AM EDT Clinical Support [facility] MEDICINE [address] [place] [address] Shwetha Collado RN [address] [place] [address] 05/31/2025 8:00 AM EST Office Visit [facility] ADULT DENTAL [address] [place] [address] Catherine Antonio [address] [place] [address] documented as of this encounter Visit Diagnoses Not on filedocumented in this encounter Additional Health Concerns Assessment Noted Time PHQ-9 Depression Total Score: 0 12/03/19 24 10:31 AM EDT documented as of this encounter Care Teams Digital Marketing Strategist Relationship Specialty Start Date End Date Agustin Marrero MD [address] [place] [address] PCP - General Internal Medicine 01/25/14 [facility] 06/13/16 documented as of this encounter
--- OUTSIDE RECORDS SUMMARY | 2024-12-13 08:36 | XMS_ITS | Encounter Summary ---
Author Organization [employer] Address [address] [place] [address] 7t [place] [address] Care Team Providers Care Tipping Machine Operator Name Role Phone Agustin Marrero MD Primary Care Provide r Reason for Visit * Reason Comments Med Refill Encounter Details Date Type Department Care Team ([facility] st Contact Info) Description 10/20/2023 Refill [facility] [address] [place], [place] [phone] Agustin Marrero MD [address] [place] [address] Chronic midline low back pain without sciatica [...] enough money to get more: Never True 02/ Transportation Answer Date Recorded In the past [...] 01/06/2025 11:30 AM EDT Clinical Support [facility] MEDICINE [address] [place] [address] Shwetha Collado RN [address] [place] [address] 05/31/2025 8:00 AM EST Office Visit [facility] ADULT DENTAL [address] [place] [address] PacoMattyCatherine [address] [place] [address] documented as of this encounter Visit Diagnoses Diagnosis Chronic midline low back pain without sciatica documented in this encounter Additional Health Concerns Assessment Noted Time PHQ-9 Depression Total Score: 5 06/16/19 24 9:35 AM EST documented as of this encounter Care Teams Tipping Machine Operator Relationship Specialty Start Date End Date Agustin Marrero MD [address] [place] [address] PCP - General Internal Medicine 01/25/14 [facility] 06/13/16 documented as of this encounter
--- OUTSIDE RECORDS SUMMARY | 2024-12-13 08:36 | XMS_ITS | Encounter Summary ---
Author Organization [facility] Address [address] [place] [address] Care Team Providers Care Fitting Room Operator Name Role Phone Agustin Mix Primary Care Provider + Encounter Details Date Type Department Care Team (Late st Contact Info) Description 01/01/2021 Orders Only [facility] Nuclear Medicine [address] [place] [address] Sreedhar Sotelo MD [address] [place], [place] [phone] Social History Tobacco Use Types Packs/Day Years [...] Info) Description 02/06/2025 9:30 AM EDT Follow-Up [facility] [address] [place], [place] [phone] Dylan Phelps MD [address] [place] [address] documented as of this encounter Visit Diagnoses Not on filedocumented in this encounter Care Teams Fitting Room Operator Relationship Specialty Start Date End Date Agustin Mix [address] [place] [address] PCP - General Internal Medicine 04/15/17 documented as of this encounter
--- OUTSIDE RECORDS SUMMARY | 2024-12-13 08:36 | XMS_ITS | Clinical Summary ---
Author Organization [employer] Address [address] [place] [address] [address] [place] [address] Care Team Providers Care Donkey Doctor Name Role Phone Agustin Marrero MD Primary Care Provide r Allergies No known active allergies Medications Blood Glucose Monitoring Suppl ([employer] [place] Lite) w/Device kit TEST 1 TIMES BY INTRADERMAL ROUTE EVERY DAY Active Continuous Blood Gluc Rock Picker ([employer] [place]) device Active ferrous sulfate 325 (65 Fe) [...] OLINDA TABLETA TODOS LOS D CON LA DIRECTOR OF RETENTION Active naloxone (Narcan) 4 mg/0.1 mL nasal spray Administer 0.1 mL into affected nostril(s). Active sodium polystyrene sulfonate (Kayexalate) powder TAKE 30 GRAMS ONCE A WEEK Active Lantus SoloStar 100 UNIT/ML pen 15 units Active Veltassa 8.4 g pack Taking Mon-Wed-Fri rather than every day due to stomach upset Active pen needle 32G x 4 mm misc Inject under the skin. Use as instructed Active dextran 70-hypromellose (artificial tears) 0.1-0.3 % ophthalmic solution APPLY 1-2 GTTS IN EYES EVERY DAY IF NEEDED 5 mL 3 023 Active acetaminophen (Tylenol) 325 MG tablet Take 2 tablets (650 mg) by mouth every 6 (six) hours if needed for moderate pain. 30 tablet Active FreeStyle lancetsIndication s:Type 2 diabetes mellitus without complication, with long-term current use of insulin ([facility]) USE 1 EACH DIRECTED THREE TIMES EVERY DAY 100 each 11 Active BD Insulin Syringe U/F 31G X /16 0.3 ML misc E11.9 FOR USE WITH [...] complication, with long-term current use of insulin ([facility]) USE DIRECTED EVERY 14 DAYS 2 each 2 Active tacrolimus (Prograf) 1 MG capsule Take 1 capsules (1mg) in the morning and 1 capsule (1mg) in the evening 180 capsule Active Gvoke HypoPen 2-Pack 0.5 MG/0.1ML injection PLEASE SEE ATTACHED FOR DETAILED DIRECTIONS Active Multiple Vitamin (Daily-Stacy Multivitamin) tablet Take 1 tablet by mouth every day 90 tablet 3 025 Active omeprazole (PriLOSEC) [address] capsuleIndication s:Gastroesophagea l reflux disease, unspecified whether esophagitis present TOME 1 CAPSULA POR VIA ORAL TODOS LOS QUINONES BEFORE A MEAL 90 capsule 1 025 Active glucose blood (FREESTYLE LITE) test stripIndications: Type 2 diabetes mellitus without complications ([facility]) USE TO TEST BLOOD SUGAR THREE TIMES DAILY 300 strip 3 025 Active cholecalciferol (Vitamin D3) 25 MCG (1000 UT) tabletIndications :Type 2 diabetes mellitus without complication, with long-term current use of insulin ([facility]) TOME 1 TABLETA POR VIA ORAL TODOS LOS QUINONES 90 tablet 1 025 Active gabapentin (Neurontin) 300 MG capsuleIndication s:Chronic midline low back pain without sciatica TAKE 1 CAPSULE BY MOUTH TWICE A DAY 60 capsule 025 Active NovoLOG FLEXPEN 100 UNIT/ML penIndications:Ty pe 2 diabetes mellitus without complication, with long-term current use of insulin ([facility]) Use Insulin as per sliding scale TID (BG 150-200mg/dL: 10 units, 201-250 : 12 units, 251-300: 14 units, 301-350: 16 units, 351-400 18 units, >400 20 units 15 mL 025 Active traMADol (Ultram) 50 MG tabletIndications :Chronic midline low back pain without sciatica TAKE 1 TABLET (50 MG) BY MOUTH EVERY 8 (EIGHT) HOURS IF NEEDED FOR SEVERE PAIN. 84 tablet 025 Active zolpidem (Ambien) 10 MG tabletIndications :Primary insomnia TOME OLINDA TABLETA POR VIA ORAL TODOS LOS QUINONES AL ACOSTARSE CUANDO SEA NECESARIO Do not start before December 07, 2024. 30 tablet 025 Active traMADol (Ultram) 50 MG tabletIndications :Chronic midline low back pain without sciatica Take 1 tablet (50 mg) by mouth every 8 (eight) hours if needed for severe pain. 84 tablet 025 Active sildenafil (Viagra) 100 MG tablet TAKE 1 TABLET 1 HOUR BEFORE SEXUAL RELATIONS ONCE DAILY NEEDED. 12 tablet 4 025 Active sildenafil (Viagra) 100 MG tablet TAKE 1 TABLET 1 HOUR BEFORE SEXUAL RELATIONS ONCE DAILY NEEDED. 12 tablet 4 025 2024 Discontinued zolpidem (Ambien) 10 MG [...] (eight) hours if needed for severe pain. 84 tablet 025 2024 Discontinued Active Problems Problem [...] midline low back pain without sciatica Last ART EDITOR Agreement: 09/01/23 Normal oral exam 12/17/2023 Class [...] for mildly dilated CBD. ERCP 11/21/2022 at [facility] showed single severe biliary stricture found in [...] CBD. 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 The stricture was post-surgical. A biliary sphinterotomy was performed. A temporary stent was placed in the CBP They recommended to repeat ERCP in 3 months to remove stent. Pt is already scheduled for 02/20/2023 for ENDOSCOPIC RETROGRADE CHOLANGIOPANCREATOGRAPHY WITH REMOVAL OF FOREIGN BODY(S)/STENT(S)/PANCREATIC DUCT(S) WITH POSSIBLE MODERATE SEDATION [04355 (CPT )] Partial edentulism 01/14/2023 Hospital discharge follow-up 11/27/2022 [...] CBD. Pt is s/p ERCP 11/21/2022 at [facility] Impression: A single severe biliary stricture found [...] local wound injections. He was seen by senior publications specialist at [facility] who discussed that he needed someone that [...] local wound injections. He was seen by senior publications specialist at [facility] who discussed that he needed someone that [...] was refer to the Pain Clinic at [facility] he has an appointment for 08/03/2022. He [...] 02/2021 Essential hypertension 04/21/2022 Assessment & Plan (11/01/2024 9:32 AM EDT): Patient with Hypertension BP controlled. [...] counseled about weight loss. Assessment & Plan (07/05/2024 10:02 AM EDT): [...] diabetes mellitus without complication Assessment & Plan (11/01/2024 9:53 AM EDT): Pt is here for a f/u regarding his DM Patient is on a regimen of : Lantus 24 units at hs and Novolog flex pen using sliding scale TID (BG 150-200mg/dL: 10 units, 201-250 : 12 units, 251-300: 14 units, 301-350: 16 units, 351-400 18 units, >400 20 units He isunder the care of [facility] given that he is a liver transplant patient. He tells me he was seen 2 months ago Hgb A1c 11/01/2024: 7.3 from 7.2 from 7 Eye exam ordered previous visit Microalbumin 04/06/2024 was 68 Foot check risk of zero Pt advised to: adhere to diabetic diet Plan: continue current regimen Pt tells me he has a follow up with Endocrinology check your blood sugars regularly check your feet on a daily basis f/u with me in 4 months Assessment & Plan (07/05/2024 10:08 AM EDT): Pt is here for a f/u regarding his DM Patient is on a regimen of : Lantus 24 units at hs and Novolog flex pen using sliding scale TID (BG 150-200mg/dL: 10 units, 201-250 : 12 units, 251-300: 14 units, 301-350: 16 units, 351-400 18 units, >400 20 units He was discharged from [facility] diabetes clinic due to non compliance. He isunder the care of [facility] given that he is a liver transplant patient, last seen 2024. Hgb A1c 07/05/2024: 7.2 from 7 Eye exam ordered previous visit Microalbumin 04/06/2024 was 68 Foot check risk of zero Pt advised to: adhere to diabetic diet Previous visit pt was referred to [employer] and [place] Plan: continue current regimen Pt [...] >400 20 units He was discharged from [facility] diabetes clinic due to non compliance. He isunder the care of [facility] given that he is a liver transplant patient, last seen 2024. Hgb A1c 04/05/2024: 7 from 7.4 Eye exam ordered previous visit Microalbumin 11/01/2020 was 43 , ordered today Foot check risk of zero Pt advised to: adhere to diabetic diet Previous visit pt was referred to [employer] and [place] Plan: continue current regimen Pt [...] >400 20 units He was discharged from [facility] diabetes clinic due to non compliance. He isunder the care of [facility] given that he is a liver transplant patient, last seen 04/21/2023. Hgb A1c 12/03/2023: 7.4 from 7.1 Eye exam ordered previous visit Microalbumin 11/01/2020 was 43 Foot check risk of zero Pt advised to: adhere to diabetic diet Previous visit pt was referred to [employer] and [place] Plan: continue current regimen Pt [...] >400 20 units He was discharged from [facility] diabetes clinic due to non compliance. He isunder the care of [facility] given that he is a liver transplant patient, last seen 04/21/2023. Hgb A1c 06/16/2023: 7.1 Eye exam ordered previous visit Microalbumin 11/01/2020 was 43 Foot check risk of zero Pt advised to: adhere to diabetic diet Previous visit pt was referred to [employer] and [place] Plan: continue current regimen Pt [...] >400 20 units He was discharged from [facility] diabetes clinic due to non compliance. He is supposed to be under the care of [facility] given that he is a liver transplant patient, last seen 08/01/2021. He had an appointment scheduled in August but he no showed. Today he tells me he will stay at [facility] Hgb A1c 02/12/2023 was 6.7 Eye exam ordered previous visit Microalbumin 11/01/2020 was 43 Foot check risk of zero Pt advised to: adhere to diabetic diet Previous visit pt was referred to [employer] and [place] Plan: continue current regimen Pt [...] >400 20 units He was discharged from [facility] diabetes [facility] due to non compliance. He is supposed to be under the care of [facility] given that he is a liver transplant patient, last seen 08/01/2021. He had an appointment scheduled in August but he no showed. Today he tells me he will stay at [facility] Hgb A1c 09/02/2021 was 6.5 Eye exam ordered previous visit Microalbumin 11/01/2020 was 43 Foot check risk of zero Pt advised to: adhere to diabetic diet Previous visit pt was referred to [employer] and [place] Plan: continue current regimen check [...] >400 20 units He was discharged from [facility] diabetes clinic due to non compliance He is now under the care of [facility] given that he is a liver transplant patient, last seen 08/01/2021 Hgb A1c 09/02/2021 was 6.5 Eye exam ordered previous visit Microalbumin 11/01/2020 was 43 Foot check risk of zero Pt advised to: adhere to diabetic diet Previous visit pt was referred to [employer] and [place] Plan: continue current regimen check [...] >400 20 units He was discharged from [facility] diabetes clinic due to non compliance He is now under the care of [facility] given that he is a liver transplant patient, last seen 08/01/2021 Hgb A1c 04/22/2021 was 6.2 Eye exam ordered previous visit Microalbumin 11/01/2020 was 43 Foot check risk of zero Pt advised to: adhere to diabetic diet Previous visit pt was referred to [employer] and [place] Plan: continue current regimen check your blood sugars regularly check your feet on a daily basis f/u with me in 3 months Gynecomastia 03/02/2018 Assessment & Plan (11/01/2024 9:50 AM EDT): Pt with hx of Liver dx s/p liver transplant. Pt interested in exploring surgical options for gynecomastia Plastic surgeon declined to see him until he gets an evaluation by Endocrinology. 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 [...] transplant Tubular adenoma 06/05/2015 Assessment & Plan (11/01/2024 9:29 AM EDT): Colonoscopy:04/25/2014 Dr Diaz showed a tubular adenoma Repeat 06/28/2021 showed polyps Seen by GI 10/20/2020 scheduled for EGD/Colonoscopy Assessment & Plan (04/22/2022 8:29 AM EST): Colonoscopy:04/25/2014 Dr Diaz showed a tubular adenoma Repeat 06/28/2021 showed polyps Smoker 06/25/2012 Gastroesophageal reflux disease 11/18/2011 Pure hypercholesterolemia 10/01/2011 Assessment & Plan (11/01/2024 9:32 AM EDT): Patient with elevated lipids. Most [...] goal for weight loss. Assessment & Plan (07/05/2024 10:04 AM EDT): [...] Encounters Date Type Department Care Team Description 12/13/2024 Telephone [facility] [address] [facility] [place] [address] Agustin Marrero MD fyi 12/10/2024 Refill [facility] [place] [address] Agustin Marrero MD 12/05/2024 Refill [facility] [address] [facility] [place] [address] Agustin Marrero MD Primary insomnia; Chronic midline low back pain without sciatica 12/05/2024 Refill [facility] [address] [place] [address] Agustin Marrero MD Chronic midline low back pain without sciatica 11/18/2024 Travel 11/18/[address] [facility] [address] [place] [address] Shwetha Collado RN ART EDITOR 11/17/2024 Results Follow-Up [address] [address] Agustin Marrero MD POCT Glucose, POCT HGB A1C, TSH with Reflex to Free T4, Additional followed-up results: 6 11/16/2024 10:00 AM EDT Office Visit [facility] ADULT DENTAL [address] [place] [address] Catherine Antonio Missing teeth, acquired (Primary Dx); Dental calculus; Dental plaque; Generalized gingival recession; Chronic periodontal disease 11/01/2024 9:15 AM EDT Office Visit [address] [address] Agustin Marrero MD Type 2 diabetes mellitus without complication, with long-term current use of insulin ([facility]) (Primary Dx); Chronic midline low back pain without sciatica; Primary insomnia; Tubular adenoma; S/P liver transplant ([facility]); Essential hypertension; Pure hypercholesterolemi a; Gynecomastia 11/01/2024 Travel 10/31/[address] [address] Agustin Marrero MD chart prep 10/25/[address] [address] Agustin Marrero MD Durable Medical Equipment 10/25/2024 Patient Outreach [facility] [address] [place] [address] Agustin Marrero MD Pre-visit Planning ([facility] unable to complete) 10/16/[address] [address] Agustin Marrero MD Chronic midline low back pain without sciatica 10/07/2024 Travel 10/07/2024 Telephone [facility] [address] [place] [address] Shwetha Collado, RN ART EDITOR 10/07/2024 Telephone [facility] [address] [place] [address] Shwetha Collado RN 10/04/2024 Telephone [facility] [address] [place] [address] Agustin Marrero MD Med Refill 10/04/2024 Telephone [facility] [address] [place] [address] Agustin Marrero MD Med Refill 10/04/2024 Refill [facility] [address] [place] [address] Agustin Marrero MD Chronic midline low back pain without sciatica; Primary insomnia 09/24/2024 Refill [facility] [address] [place] [address] Agustin Marrero MD Type 2 diabetes mellitus without complication, with long-term current use of insulin ([facility]) 09/13/2024 Telephone [facility] [address] [place] [address] Agustin Marrero MD Med Refill 09/12/2024 Refill [facility] [address] [place] [address] Agustin Marrero MD Chronic midline low back pain without sciatica from Last 3 Months Immunizations Immunization Administration Dates Next Due Hep A, Adult [...] Sign Reading Time Taken Comments Blood Pressure 134/76 11/16/2024 10:15 AM EDT Pulse 65 11/01/2024 9:28 AM EDT Temperature 36.4 C (97.5 F) 11/01/2024 9:28 AM EDT Respiratory Rate 20 11/01/2024 9:28 AM EDT Oxygen Saturation 98% 11/01/2024 9:28 AM EDT Inhaled Oxygen Concentration - - Weight 91.3 kg (201 lb 3.2 oz) 11/01/2024 9:28 A M EDT Height 170.2 cm (5' 7 ) 11/01/2024 9:28 AM EDT Body Mass Index 31.51 11/01/2024 9:28 AM EDT Plan of Treatment Upcoming Encounters Date Type Department Care Team (Late st Contact Info) Description 01/06/2025 11:30 AM EDT Clinical Support [facility] [address] [place] [address] Shwetha Collado, RN [address] [place] [address] 05/31/2025 8:00 AM EST Office Visit [facility] AD[facility] [address] [place] [address] Paco, Catherine [address] [place] [address] Health Maintenance Due Date Last Done Comments [...] - Risk 60-74 years 1-dose series) 2024 Dental X-Ray: Full Mouth 06/19/2024 06/18/2021 Colonoscopy 06/28/2024 06/28/2021 Colorectal Cancer Screening 06/28/2024 Eye Exam 09/22/2024 09/22/2022, 0608/2022, 09/22/2022, Additional history exists Dental X-Ray: Bitewings 10/13/2024 10/13/2023, 05/15 Dental Oral Exam 11/15/2024 05/17/2024, , 05/15/2022 Influenza Vaccine (#1) 2024 , 02/12/2023, 05/06/2022, Additional history exists Diabetes: Hemoglobin A1C 02/01/2025 025, 07/05/2024, 04/05/2024, Additional history exists Diabetes: Urine Protein Screening 04/06/2025 04/06/2024, 01/10/2022, 05/17/2021, Additional history exists Lipid Panel 04/06/2025 04/06/2024, 12/20, 11/01/2020 Dental Prophylaxis 05/20/2025 11/16/2024, 0 05/17/2024, 10/13/2023, Additional history exists Depression Screening 11/01/2025 11/01/2024, 11/02/19 25 SDOH Screening 11/01/2025 11/01/2024 Alcohol/Substance Use Screening 11/03/2025 11/03/2024 Disability Screening 11/03/2025 11/03/2024 Tobacco Screening 11/16/2025 11/16/2024 Hepatitis A Vaccines Completed 07/14/2017, 12/03/19 Hepatitis B Vaccines Completed 07/14/2017, 06/01/2017, 01/14/2017, Additional history exists Pneumococcal Vaccine: 50+ Years Completed 09/11/2022 Zoster Vaccines Completed 09/11/2022, 07/09/2022 HIB Vaccines Aged Out No longer eligi ble based on patient's age to complete this topic HPV Vaccines Aged Out No longer eligi ble based on patient's age to complete this topic IPV Vaccines Aged Out No longer eligi ble based on patient's age to complete this topic Meningococcal B Vaccine Aged Out No l onger eligible based on patient's age to complete [...] Procedure Name Priority Date/Time Associated Diagnosis Comments Full TOPICAL APPLICATION OF FLUORIDE VARNISH Routine 11/16/2024 10:00 AM EDT Generalized gingival recession Chronic periodontal disease CASE PRESENTATION, DETAILED AND EXTENSIVE TREATMENT PLANNING Routine 11/16/2024 10:00 AM EDT Missing teeth, acquired Dental calculus Dental plaque Generalized gingival recession Chronic periodontal disease ORAL HYGIENE INSTRUCTIONS Routine 11/16/2024 10:00 AM EDT Missing teeth, acquired Dental calculus Dental plaque Generalized gingival recession Chronic periodontal disease PROPHYLAXIS - ADULT Routine 11/16/2024 1 0:00 AM EDT Dental calculus Dental plaque Generalized gingival recession Chronic periodontal disease COMPREHENSIVE METABOLIC PANEL Routine 11/01/2024 10:10 AM EDT Gynecomastia PROLACTIN, DILUTION STUDY Routine 11/01/2024 10:10 AM EDT Gynecomastia FSH Routine 11/01/2024 10:10 AM EDT Gynecomastia LH Routine 11/01/2024 10:10 AM EDT Gynecomastia ESTRADIOL Routine 11/01/2024 10:10 AM EDT Gynecomastia TESTOSTERONE, FREE (DIALYSIS) AND TOTAL,MS Routine 11/01/2024 10:10 AM EDT Gynecomastia TSH W/REFLEX TO FT4 Routine 11/01/2024 1 0:10 AM EDT Gynecomastia POCT GLYCATED HEMOGLOBIN, TOTAL Routine 11/01/2024 9:41 AM EDT Type 2 diabetes mellitus without complication, with long-term current use of insulin ([facility]) POCT GLUCOSE Routine 11/01/2024 9:33 AM EDT Type 2 diabetes mellitus without complication, with long-term current use of insulin ([facility]) PERIODIC ORAL EVALUATION - ESTABLISHED PATIENT Routine 05/17/2024 10:00 AM EST ALBUMIN, RANDOM URINE W/CREATININE Routine 04/06/2024 8:10 AM EST Type 2 diabetes mellitus without complication, with long-term current use of insulin ([facility]) LIPID PANEL, STANDARD Routine 04/06/2024 8:10 AM EST Type 2 diabetes mellitus without complication, with long-term current use of insulin ([facility]) BITEWINGS - 4 RADIOGRAPHIC IMAGES Routine 10/13/2023 11:00 AM EDT HM COLONOSCOPY Routine 06/28/2021 from Last 3 Months or Most Recently Relevant to Health Maintenance Results * Prolactin, Dilution Study (11/01/2024 10:10 AM EDT) Prolactin, Undiluted 5.4 2.0 - 18.0 ng/mL [facility] Prolactin, Diluted SEE NOTE 2.0 - 18.0 ng/mL [facility] Comment:Result confirmed by 1:100 dilution. No high dosehook effect detected.Prolactin dilution studies are done to determine ifthere is a high-dose hook effect (i.e. a non-linearassay response due to a very high concentration ofProlactin). This is reported to occur at Prolactinconcentrations at or above 30,000 ng/mL.This test is not recommended for identifyingmacroprolactin. [facility] [employer] [facility], Prolactin, Total and Monomeric is therecommended test (Order code [id number]).THIS TEST WAS PERFORMED AT:[facility] [employer] [address] [id number] MONTES MD Blood Venous blood specimen / Unknown 11/01/2024 10:10 AM EDT 11/01/2024 11:06 AM EDT Agustin Connelly MD LAB BLOOD ORDERABLES Final Result Performing Organization Address City/[facility]/ZIP Co de Phone Number [facility] [address] [place] [address] [phone] * TSH with Reflex to Free T4 (11/01/2024 10:10 AM EDT) TSH reflex Free T4 1.17 0.32 - 4.0 uIU/mL [facility] Blood Venous blood specimen / Unknown 11/01/2024 10:10 AM EDT 11/01/2024 11:06 AM EDT Agustin Connelly MD LAB BLOOD ORDERABLES Final Result Performing Organization Address [facility] Co de Phone Number [facility] [address] [place] [phone] * Estradiol (11/01/2024 10:10 AM EDT) Estradiol Ultra Sensitive 21 < OR = 29 pg/mL [facility] Comment:This test was develo ped and its analytical performancecharacteristics have been determined by [employer].It has not been cleared or approved by the FDA. This assayhas been validated pursuant to the CLIA regulations and isused for clinical purposes.THIS TEST WAS PERFORMED AT:[facility]/[id number] [place] [id number] PHILIPPE MD,PHD,TR Blood Venous blood specimen / Unknown 11/01/2024 10:10 AM EDT 11/01/2024 11:06 AM EDT Agustin Connelly MD LAB BLOOD ORDERABLES Final Result Performing Organization Address City/[facility] Co de Phone Number [facility] [address] [place] [phone] * (ABNORMAL) Testosterone, Free (Dialysis) And Total, MS (11/01/2024 10:10 AM EDT) Testosterone, Total 212(A) 250 - 1100 ng/dL [facility] Comment:For additional infor bina, please refer [email or web address]/faq/[email or web address](This link is being provided for informational/educational purposes only.)This test was developed and its analytical performancecharacteristics have been determined by [employer] [place], [place]. It hasnot been cleared or approved by the U.S. Food and DrugAdministration. This assay has been validated pursuantto the CLIA regulations and is used for clinicalpurposes. Testosterone, Free 25.0(A) 35.0 - 155.0 pg/mL [facility] Comment:This test was develo ped and its analytical performancecharacteristics have been determined by [employer] [place], [place]. It hasnot been cleared or approved by the U.S. Food and DrugAdministration. This assay has been validated pursuantto the CLIA regulations and is used for clinicalpurposes.THIS TEST WAS PERFORMED AT:[employer]/Zuki [id number] [place] [address]DDBIDATRITU CLAY MD,PHD Blood Venous blood specimen / Unknown 11/01/2024 10:10 AM EDT 11/01/2024 11:06 AM EDT us Agustin Connelly MD LAB BLOOD ORDERABLES Final Result [facility] [address] [place] [phone] * (ABNORMAL) LH (11/01/2024 10:10 AM EDT) Lutenizing Hormone 23.5(A) 1.6 - 15.2 mIU/mL [facility] Comment:THIS TEST WAS PERFOR MED AT:[facility] [address] [id number] MONTES MD Blood Venous blood specimen / Unknown 11/01/2024 10:10 AM EDT 11/01/2024 11:06 AM EDT Agustin Connelly MD LAB BLOOD ORDERABLES Final Result Performing Organization Address City/[facility]/ZIP Co de Phone Number [facility] [address] [place] [address] [phone] * (ABNORMAL) FSH (11/01/2024 10:10 AM EDT) Pathologist [facility] Follicle Stimulating Hormone 42.0(A) 1.4 - 12.8 mIU/mL [facility] Comment:THIS TEST WAS PERFOR MED AT:[facility] [address] [id number] MONTES MD Blood Venous blood specimen / Unknown 11/01/2024 10:10 AM EDT 11/01/2024 11:06 AM EDT Agustin Connelly MD LAB BLOOD ORDERABLES Final Result Performing Organization Address [facility] Co de Phone Number [facility] [address] [place] [phone] * (ABNORMAL) Comprehensive Metabolic Panel (11/01/2024 10:10 AM EDT) Pathologist [facility] Sodium 141 135 - 145 mmol/L [facility] Potassium 4.8 3.3 - 5.1 mmol/L [facility] Chloride 106 96 - 108 mmol/L [facility] Carbon Dioxide 27 22 - 29 mmol/L [facility] Anion Gap 13 12 - 20 [facility] Urea Nitrogen (BUN) 21(H) 9 - 16 mg/dL [facility] Creatinine, Serum 1.28 0.5 - 1.4 mg/dL [facility] Estimated Glomerular Filt Rate 57 [facility] Comment:Chronic Kidney Disea se: Estimated GFR < 60 mL/min/1.98d5Uxvosn Kidney Disease: Estimated GFR < 15 mL/min/1.73m2 Glucose 183(H) 60 - 115 mg/dL [facility] Calcium 9.5 8.4 - 10.2 mg/dL [facility] Bilirubin, Total 0.5 0.0 - 1.0 mg/dL [facility] Aspartate Amino Transferase 26 5 - 37 U/L [facility] Alanine Aminotransferase 40 0 - 40 U/L [facility] Total Protein 6.9 6.5 - 8.0 g/dL [facility] Albumin Level 4.6 3.5 - 5.0 g/dL [facility] Alkaline Phosphatase 112 39 - 117 U/L [facility] Blood Venous blood specimen / Unknown 11/01/2024 10:10 AM EDT 11/01/2024 11:06 AM EDT Agustin Connelly MD LAB BLOOD ORDERABLES Final Result [facility] [address] [place] [phone] * (ABNORMAL) POCT HGB A1C (11/01/2024 9:41 AM EDT) Pathologist [facility] Hemoglobin A1C 7.3(A) 4.0 - 5.7 % QC Media Lot # [id number] Lot# Expiration Date Blood 11/01/2024 9:41 AM EDT Agustin Connelly MD POINT OF CARE TEST EN TER/EDIT ORDERABLES Final Result * (ABNORMAL) POCT Glucose (11/01/2024 9:33 AM EDT) Pathologist [facility] Glucose Blood, POC 214(A) 60 - 200 mg/dL QC Media Lot # [id number] Lot# Expiration Date Blood Capillary blood specimen / Unknown 11/01/2024 9:33 AM EDT Agustin Connelly MD POINT OF CARE TEST EN TER/EDIT ORDERABLES Final Result * (ABNORMAL) Albumin, Random Urine W/Creatinine (04/06/2024 8:10 AM EST) Creatinine, Urine 216.22 mg/dL [facility] Microalbumin Urine 68.0 mg/L [facility] Microalbum Creatinine Ratio Ur 31.4(H) <30 ug/mg cr [facility] Comment:Albumin/Creatinine R atio Reference Ranges: Normal: < 30 ug/mg creatinine Microalbuminuria: 30 - 300 ug/mg creatinineClinical Albuminuria: > 300 ug/mg creatinine Urine (Urine, Random) 04/06/2024 8:10 AM EST 04/06/2024 11:40 AM EST Agustin Connelly MD LAB URINE ORDERABLES Final Result [facility] [address] [place] [address] [phone] * (ABNORMAL) Lipid Panel, Standard (04/06/2024 8:10 AM EST) Triglycerides 109 <150 mg/dL [facility] Comment:Desirable Triglyceri de: less than 150 mg/dLBorderline High Triglyceride 150-199 mg/dLHigh Triglyceride: 200-499 mg/dLVery High Triglyceride: greater than or equal to 5OO mg/dL Cholesterol 177 <200 mg/dL [facility] Comment:Desirable Cholestero l: less than 200 mg/dLBorderline High Cholesterol: 200-239 mg/dLHigh Cholesterol: greater than 239 mg/dL LDL Cholesterol Calculated 115(H) <100 mg/dL [facility] Comment:Desirable LDL: less than 100 mg/dLNear Optimal/Above Optimal LDL: 110- 129 mg/dLBorderline High LDL: 130-159 mg/dLHigh LDL: 160-189 mg/dLVery High LDL: greater than or equal to 190 mg/dL HDL Cholesterol 41 >40 mg/dL [facility] Comment:Desirable HDL: great er than 40 mg/dL Note: This HDL assay may give artificially low results in patients with liver disease. Blood Venous blood specimen / Unknown 04/06/2024 8:10 AM EST 04/06/2024 11:51 AM EST Agustin Connelly MD LAB BLOOD ORDERABLES Final Result [facility] [address] [place] [phone] * Colonoscopy (06/28/2021) Colonoscopy Normal Normal 06/28/2021 Narrative Shanel Bo - 06/28/2021 9:58 AM EST Recommended 3 year follow up per GI notes ( [facility] ) Historical Provider HEALTH MAINTENANCE Edited Result - Final from Last 3 Months or Most Recently Relevant to Health Maintenance Insurance [facility] < 65 [place] [id number] DENTAL [facility] [address] [place] [address] Care Teams Donkey Doctor Relationship Specialty Start Date End Date Agustin Marrero MD [address] [place] [address] [place] [address] PCP - General Internal Medicine 01/25/14 [facility] 06/13/16
--- OUTSIDE RECORDS SUMMARY | 2024-12-13 08:36 | XMS_ITS | Encounter Summary ---
Author Organization [employer] Address [address] [place] [address] 7 [place] [address] Care Team Providers Care Family Services Coordinator Name Role Phone Agustin Marrero MD Primary Care Provide r Reason for Visit * Reason Onset Date Comments Med Refill 10/04/2024 Encounter Details Date Type Department Care Team ([facility] st Contact Info) Description 10/04/2024 Telephone [facility] MEDICINE [address] [place], [place] [phone] Agustin Marrero MD [address] [place], [place] [phone] Med Refill Social History Tobacco Use Types [...] Telephone Encounter - Patti White LPN - 10/04/2024 1:56 PM EDT Duplicate request. * Telephone Encounter - Manjeet Mclaughlin - 10/04/2024 1:34 PM EDT TC from pt requesting medication refill. Medications needing refill : zolpidem (Ambien) 10 MG tablet To be sent to: [facility]/pharmacy #[address] [place] [address] documented in this encounter Plan of Treatment Upcoming Encounters Date Type Department Care Team (Late st Contact Info) Description 01/06/2025 11:30 AM EDT Clinical Support [facility] MEDICINE [address] [place] [address] Shwetha Collado RN [address] [place] [address] 05/31/2025 8:00 AM EST Office Visit [facility] ADULT DENTAL [address] [place] [address] Catherine Antonio [address] [place] [address] documented as of this encounter Visit Diagnoses Not on filedocumented in this encounter Additional Health Concerns Assessment Noted Time PHQ-9 Depression Total Score: 0 12/03/19 24 10:31 AM EDT documented as of this encounter Care Teams Family Services Coordinator Relationship Specialty Start Date End Date Agustin Marrero MD [address] [place] [address] PCP - General Internal Medicine 01/25/14 [facility] 06/13/16 documented as of this encounter
--- OUTSIDE RECORDS SUMMARY | 2024-12-13 08:36 | XMS_ITS | Encounter Summary ---
Author Organization [facility] Address [address] [place] [address] Care Team Providers Care Corporate Legal Secretary Name Role Phone Agustin Mix Primary Care Provider + Encounter Details Date Type Department Care Team (Late st Contact Info) Description 01/13/2020 Orders Only [facility] 2 Rad Act 1 [address] [place] [address] Pawel Sanchez MD [address] [place] [address] Social History Tobacco Use Types Packs/Day Years [...] Info) Description 02/06/2025 9:30 AM EDT Follow-Up [facility]- [facility] Liver Transplant Services [address] [place] [address] Dylan Phelps MD [address] [place] [address] documented as of this encounter Visit Diagnoses Not on filedocumented in this encounter Additional Health Concerns Infection Onset Date Last Indicated Resolved Time COVID-19 - Suspected infection 03/05/2020 03/17/2020 03/17/2020 7:55 PM EST COVID-19 - Confirmed infection 05/01/2020 05/07/2020 06/01/2020 5:06 PM EST COVID-19 - Suspected infection 05/10/2020 05/10/2020 05/24/2020 10:34 PM EST documented as of this encounter Care Teams Corporate Legal Secretary Relationship Specialty Start Date End Date Agustin Mix [address] [place] [address] PCP - General Internal Medicine 04/15/17 documented as of this encounter
--- OUTSIDE RECORDS SUMMARY | 2024-12-13 08:36 | XMS_ITS | Encounter Summary ---
Author Organization [employer] Address [address] [place] [address] 7 [place] [address] Care Team Providers Care Horizontal Drill Operator Name Role Phone Agustin Marrero MD Primary Care Provide r Reason for Visit * Reason Onset Date Comments Med Refill 03/01/2024 Encounter Details Date Type Department Care Team ([facility] st Contact Info) Description 03/01/2024 Telephone [facility] MEDICINE [address] [place], [place] [phone] Agustin Marrero MD [address] [place], [place] [phone] Med Refill Social History Tobacco Use Types [...] 2:22 PM EST Medication was sent to [facility]#[id number] on 02/29/24. * Telephone Encounter - Manjeet Mclaughlin - 03/01/2024 2:17 PM EST TC from pt requesting medication refill. Medications needing refill : 1- zolpidem (Ambien) 10 MG tablet To be sent to: [facility]/pharmacy #[id number] documented in this encounter Plan of Treatment Upcoming Encounters Date Type Department Care Team (Late st Contact Info) Description 01/06/2025 11:30 AM EDT Clinical Support [facility] MEDICINE [address] [place] [address] Shwetha Collado RN [address] [place] [address] 05/31/2025 8:00 AM EST Office Visit [facility] ADULT DENTAL [address] [place] [address] Catherine Antonio [address] [place] [address] documented as of this encounter Visit Diagnoses Not on filedocumented in this encounter Additional Health Concerns Assessment Noted Time PHQ-9 Depression Total Score: 0 12/03/19 10:31 AM EDT documented as of this encounter Care Teams Horizontal Drill Operator Relationship Specialty Start Date End Date Agustin Marrero MD [address] [place] [address] PCP - General Internal Medicine 01/25/14 [facility] 06/13/16 documented as of this encounter
--- OUTSIDE RECORDS SUMMARY | 2024-12-13 08:36 | XMS_ITS | Encounter Summary ---
Author Organization [employer] Address [address] [place] [address] [address]t [place] [address] Care Team Providers Care Team Leader/Research Psychologist Name Role Phone Agustin Marrero MD Primary Care Provide r Reason for Visit * Reason Comments Med Refill Encounter Details Date Type Department Care Team ([facility] st Contact Info) Description 10/28/2023 Refill [facility] MEDICINE [address] [place], [place] [phone] Lela Wu MD [address] [place], [place] [phone] Primary insomnia Social History Tobacco Use Types [...] Description 01/06/2025 11:30 AM EDT Clinical Support [facility] MEDICINE [address] [place] [address] Shwetha Collado RN [address] [place] [address] 05/31/2025 8:00 AM EST Office Visit [facility] ADULT DENTAL [address] [place] [address] Paco, Catherine [address] [place] [address] documented as of this encounter Visit Diagnoses Diagnosis Primary insomnia Persistent disorder of initiating or maintaining sleep documented in this encounter Additional Health Concerns Assessment Noted Time PHQ-9 Depression Total Score: 5 06/16/19 24 9:35 AM EST documented as of this encounter Care Teams Team Leader/Research Psychologist Relationship Specialty Start Date End Date Agustin Marrero MD [address] [place] [address] PCP - General Internal Medicine 01/25/14 [facility] 06/13/16 documented as of this encounter
--- OUTSIDE RECORDS SUMMARY | 2024-12-13 08:36 | XMS_ITS | Encounter Summary ---
Author Organization [employer] Address [address] [place] [address] 7 [place] [address] Care Team Providers Care Technical Publications Manager Name Role Phone Agustin Marrero MD Primary Care Provide r Reason for Visit * Reason Onset Date Comments Med Refill 09/05/2024 Encounter Details Date Type Department Care Team ([facility] st Contact Info) Description 09/05/2024 Telephone [facility] MEDICINE [address] [place], [place] [phone] Agustin Marrero MD [address] [place], [place] [phone] Med Refill Social History Tobacco Use Types [...] * Telephone Encounter - Alisia Hameed - 09/05/2024 8:19 AM EDT TC from pt requesting medication refill. Medications needing refill : traMADol (Ultram) 50 MG tablet To be sent to: [facility]/pharmacy #[id number] [place] [address] documented in this encounter Plan of Treatment Upcoming Encounters Date Type Department Care Team (Late st Contact Info) Description 01/06/2025 11:30 AM EDT Clinical Support [facility] [address] [place], [place] [phone] Shwetha Collado RN [address] [place] [address] 05/31/2025 8:00 AM EST Office Visit [facility] ADULT DENTAL [address] [place], [place] [phone] Catherine Antonio [address] [place] [address] documented as of this encounter Visit Diagnoses Not on filedocumented in this encounter Additional Health Concerns Assessment Noted Time PHQ-9 Depression Total Score: 0 08/15/20 24 10:31 AM EDT documented as of this encounter Care Teams Technical Publications Manager Relationship Specialty Start Date End Date Agustin Marrero MD [address] [place] [address] PCP - General Internal Medicine 01/25/14 [facility] 06/13/16 documented as of this encounter
--- OUTSIDE RECORDS SUMMARY | 2024-12-13 08:36 | XMS_ITS | Patient Health Record ---
Author Organization [facility] Address [address] [facility] [place] [address] Care Team Providers Care Campus Dean Name Role Phone Nura Connelly MD, Agustin Primary Care Provide r Unavailable Sun Jj Unavailable [phone] Yovanny Long Unavailable [phone] Allergies No Known Allergies Results Component Value Reference Range Notes HEMOGLOBIN A1C (GLYCOHEMOGLO BIN) Reviewed date:11/04/2024 11:47:55 AM Interpretation: Performing Lab: Notes/Report: HEMOGLOBIN A1C % (HH) 7.3 Reason For Referral No Information Medications Medication SIG (Take, Route, Frequency, Duration) Notes Start Date End Date Status Ammonium Lactate 12 % 1 application Exte rnally to affected areas of dry skin to feet except for between the toes Twice a day; Duration: 30 days Active Extra Depth Orthopedic Shoes (1 Pair) with Customized Heat Molded Multidensity Innersoles (3 Pair) Dx: NIDDM/Polyneuropathy (E11.42), Hammertoe Foot Deformity (M20.41,M20.42), Preulcerative Skin Lesion(s) (L85.1); Duration: 365 days 11/03/2024 Active Vitamin D3 507994 UNIT/GM as directed Active Losartan Potassium 25 MG 1 tablet Orally Once a day Active Omeprazole 20 MG 1 capsule 1/2 to 1 h our before morning meal Orally Once a day Active Tacrolimus 1 MG as directed Orally Active Ketoconazole 2 % 1 application Apply a thin layer to externally to feet, even between toes Twice a day; Duration: 30 days Active Multivitamin - 1 tablet Orally Once a day Active Magnesium 400 MG as directed Orally Active Immunizations Vaccine Route Administration Date Status Comme nts Influenza Unknown 02/04/2024 Administered Social History Tobacco Use: Social History Observation [...] Problem Status W/U Status Risk Notes Problem Other hammer toe(s) (acquired), right foot (M20.41) Active confirmed Problem Acquired hammer toe of left foot (5340905018267889 ) Other hammer toe(s) (acquired), left foot (M20.42) Active confirmed Problem Polyneuropathy due to type 2 diabetes mellitus (531956886) Type 2 diabetes mellitus with diabetic polyneuropathy (E11.42) Active confirmed Vital Signs Heart Rate 68 /min 06/17/2024 Blood pressure diastolic 81 mm Hg 11/03/2024 Height 5ft 7in in 11/03/2024 Blood pressure systolic 134 mm Hg 11/03/2024 Weight 205 lbs 11/03/2024 BMI 32.1 kg/m2 11/03/2024 Procedures Procedure Date Ordered Date Performed Result Body Sit e 08529-VDEJGUJ NAIL, 6 OR MORE 03/10/2024 N/A 39112-[id number] NAIL, 6 OR MORE 06/17/2024 N/A Encounters Encounter Location Date Provider Diagnosis [address] [address] 03/10/2024 Yovanny Long Onychomycosis B35.1 ; Xerosis of skin L85.3 ; Pain in right toe(s) M79.674 and Pain in left toe(s) M79.[address] [address] 06/17/2024 Yovanny Long Onychomycosis B35.1 and Type 2 diabetes mellitus with other diabetic neurological complication E11.[address] [address] 11/03/2024 Sun Jj Type 2 diabetes mellitus with diabetic polyneuropathy E11.42 ; Other hammer toe(s) (acquired), right foot M20.41 ; Tinea unguium B35.1 ; Tinea pedis of both feet B35.3 and Other hammer toe(s) (acquired), left foot M20.42 [facility] [address] [address] 03/10/2024 Yovanny Long [facility] [place] [address] [place] [address] 05/26/2024 Yovanny Long [facility] [address] [address] 11/03/2024 Sun Jj Assessments Encounter Date Diagnosis (ICD Code) Assessment Notes Treatment Notes Treatment Clinical Notes Section Notes 06/17/2024 Type 2 diabetes mellitus with other diabetic neurological complication (ICD-10 - E11.49) 06/17/2024 Onychomycosis (ICD-10 - B35.1) 11/03/2024 Other hammer toe(s) (acquired), right foot (ICD-10 - M20.41) Patient Educated with: DIABETIC FOOT CARE INSTRUCTIONS.pd f (DIABETIC FOOT CARE INSTRUCTIONS.pd f) 11/03/2024 Type 2 diabetes mellitus with diabetic polyneuropathy (ICD-10 - E11.42) 03/10/2024 Xerosis of skin (ICD-10 - L85.3) Application of [place]Soothe skin lotion to his feet 03/10/2024 Onychomycosis (ICD-10 - B35.1) 03/10/2024 Pain in right toe(s) (ICD-10 - M79.674) 11/03/2024 Tinea unguium (ICD-10 - B35.1) 11/03/2024 Tinea pedis of both feet (ICD-10 - B35.3) Patient Educated with: ATHELETE .pdf (ATHELETE .pdf) 03/10/2024 Pain in left toe(s) (ICD-10 - M79.675) 11/03/2024 Other hammer toe(s) (acquired), left foot (ICD-10 - M20.42) 05/26/2024 Other 06/17/2024 Other Application of [place]oothe skin lotion to his feet Plan Of Treatment Pending Test Test Name Order Date [id number] NAIL, 6 OR MORE 03/10/2024 [id number] NAIL, 6 OR MORE 06/17/2024 Next Appt Details Provider Name:Sun kenney, 01/12/2025 10:30:00 AM, [address] [facility], [place], [address], Insurance Providers Payer Name Payer Address Payer Phone Subscriber Number Group Number Insured Name Patient Relationship to Insured Coverage Start Date Coverage End Date [facility] [employer] Claims [address] [place] [id number] Edward Jon Self - patient is the insured Medical (General) History Medical History History ICD Code Back,Hip,and Knee pain Broken bones Cataracts covid-19 Dementia Depression Diabetic Gall bladder problems Hiatal hernia High Blood Pressure Liver disease Psychiatric disorder Surgical History Surgery Date(Month/Year) back surgery 02/2024
--- OUTSIDE RECORDS SUMMARY | 2024-12-13 08:36 | XMS_ITS | Encounter Summary ---
Author Organization [employer] Address [address] [place] [address] 7 [place] [address] Care Team Providers Care Sales And Management Trainee Name Role Phone Agustin Marrero MD Primary Care Provide r Reason for Visit * Reason Onset Date Comments Med Refill 03/01/2024 Encounter Details Date Type Department Care Team ([facility] st Contact Info) Description 03/01/2024 Telephone [facility] MEDICINE [address] [place], [place] [phone] Agustin Marrero MD [address] [place], [place] [phone] Med Refill Social History Tobacco Use Types [...] 03/01/2024 2:24 PM EST Received fax from [facility] requesting script clarification need directions. * Telephone Encounter - Manjeet Mclaughlin - 03/01/2024 2:21 PM EST TC from pt requesting medication refill. Medications needing refill : traMADol (Ultram) 50 MG table To be sent to: [facility]/pharmacy #[id number] documented in this encounter Plan of Treatment Upcoming Encounters Date Type Department Care Team (Late st Contact Info) Description 01/06/2025 11:30 AM EDT Clinical Support [facility] MEDICINE [address] [place] [address] Shwetha Collado RN [address] [place] [address] 05/31/2025 8:00 AM EST Office Visit [facility] ADULT DENTAL [address] [place] [address] Catherine Antonio [address] [place] [address] documented as of this encounter Visit Diagnoses Not on filedocumented in this encounter Additional Health Concerns Assessment Noted Time PHQ-9 Depression Total Score: 0 12/03/19 10:31 AM EDT documented as of this encounter Care Teams Sales And Management Trainee Relationship Specialty Start Date End Date Agustin Marrero MD [address] [place] [address] PCP - General Internal Medicine 01/25/14 [facility] 06/13/16 documented as of this encounter
--- OUTSIDE RECORDS SUMMARY | 2024-12-13 08:36 | XMS_ITS | Encounter Summary ---
Author Organization [facility] Address [address] [place] [address] Care Team Providers Care Agricultural Equipment Test Engineer Name Role Phone Agustin Mix Primary Care Provider + Encounter Details Date Type Department Care Team (Late st Contact Info) Description 07/23/2023 Orders Only [facility] Interventional Radiology [address] [place] [address] Pawel Sanchez MD [address] [place] [address] Social History Tobacco Use Types Packs/Day Years [...] Info) Description 02/06/2025 9:30 AM EDT Follow-Up [facility] Liver Transplant Services [address] [place] [address] Dylan Phelps MD [address] [place] [address] documented as of this encounter Visit Diagnoses Not on filedocumented in this encounter Care Teams Agricultural Equipment Test Engineer Relationship Specialty Start Date End Date Agustin Mix [address] [place] [address] PCP - General Internal Medicine 04/15/17 documented as of this encounter
--- OUTSIDE RECORDS SUMMARY | 2024-12-13 08:36 | XMS_ITS | Encounter Summary ---
Author Organization [employer] Address [address] [place] [address] 7t [place] [address] Care Team Providers Care Behavior Support Specialist Name Role Phone Agustin Marrero MD Primary Care Provide r Encounter Details Date Type Department Care Team ([facility] st Contact Info) Description 08/31/2024 Telephone [facility] [address] [place], [place] [phone] Agustin Marrero MD [address] [place], [place] [phone] Social History Tobacco Use Types Packs/Day Years [...] encounter Miscellaneous Notes * Telephone Encounter - Xuan Sibley - 08/31/2024 2:28 PM EDT TC from pt requesting medication refill. Medications needing refill : - traMADol (Ultram) 50 MG tablet To be sent to: [facility]/pharmacy #[id number] documented in this encounter Plan of Treatment Upcoming Encounters Date Type Department Care Team (Late st Contact Info) Description 01/06/2025 11:30 AM EDT Clinical Support [facility] [address] [place] [address] Shwetha Collado RN [address] [place] [address] 05/31/2025 8:00 AM EST Office Visit [facility] ADULT DENTAL [address] [place] [address] Catherine Antonio [address] [place] [address] documented as of this encounter Visit Diagnoses Not on filedocumented in this encounter Additional Health Concerns Assessment Noted Time PHQ-9 Depression Total Score: 0 12/03/19 24 10:31 AM EDT documented as of this encounter Care Teams Behavior Support Specialist Relationship Specialty Start Date End Date Agustin Marrero MD [address] [place] [address] PCP - General Internal Medicine 01/25/14 [facility] 06/13/16 documented as of this encounter
--- OUTSIDE RECORDS SUMMARY | 2024-12-13 08:37 | XMS_ITS | Encounter Summary ---
Author Organization [email or web address] Address [address] [place] [address] [address] [address] Care Team Providers Care Gm Mobile Name Role Phone Agustin Marrero MD Primary Care Provide r Reason for Visit * Reason Onset Date Comments Med Refill 12/15/2022 Encounter Details Date Type Department Care Team ([facility] st Contact Info) Description 12/15/2022 Telephone [facility] MEDICINE [address] [place], [place] [phone] Agustin Marrero MD [address] [place] [address] Med Refill Social History Tobacco Use Types [...] Description 01/06/2025 11:30 AM EDT Clinical Support [facility] MEDICINE [address] [place] [address] Shwetha Collado, KATALINA [address] [place] [address] 05/31/2025 8:00 AM EST Office Visit [facility] ADULT DENTAL [address] [place] [address] Catherine Antonio [address] [place] [address] documented as of this encounter Visit Diagnoses Not on filedocumented in this encounter Care Teams Gm [place] Relationship Specialty Start Date End Date Agustin Marrero MD [address] [place] [address] PCP - General Internal Medicine 01/25/14 [facility] 06/13/16 documented as of this encounter
--- OUTSIDE RECORDS SUMMARY | 2024-12-13 08:37 | XMS_ITS | Encounter Summary ---
Author Organization [employer] Address [address] [place] [address] [address] [address] Care Team Providers Care Portfolio Mgr Name Role Phone Agustin Marrero MD Primary Care Provide r Encounter Details Date Type Department Care Team (Latest Contact Info) Description 06/18/2021 Abstract [facility] CONVERSIONS Dental, Provider, DDS Social History [...] Description 01/06/2025 11:30 AM EDT Clinical Support [facility] MEDICINE [address] [place] [address] Shwetha Collado RN [address] [place] [address] 05/31/2025 8:00 AM EST Office Visit [facility] ADULT DENTAL [address] [place] [address] Matty Antonioaris [address] [place] [address] documented as of this encounter Visit Diagnoses Not on filedocumented in this encounter Care Teams Portfolio Mgr Relationship Specialty Start Date End Date Agustin Marrero MD [address] [place] [address] PCP - General Internal Medicine 01/25/14 [facility] 06/13/16 documented as of this encounter
--- OUTSIDE RECORDS SUMMARY | 2024-12-13 08:37 | XMS_ITS | Encounter Summary ---
Author Organization [facility] Address [address] [place] [address] Care Team Providers Care Metallurgist Process Name Role Phone Agustin Mix Primary Care Provider + Encounter Details Date Type Department Care Team (Late st Contact Info) Description 02/29/2020 Orders Only [facility] Ultrasound [address] [place] [address] Sreedhar Sotelo MD [address] [place], [place] [phone] Social History Tobacco Use Types Packs/Day Years [...] Info) Description 02/06/2025 9:30 AM EDT Follow-Up [facility] Liver Transplant Services [address] [place] [address] Dylan Phelps MD [address] [place] [address] documented as of this encounter Visit Diagnoses Not on filedocumented in this encounter Additional Health Concerns Infection Onset Date Last Indicated Resolved Time COVID-19 - Suspected infection 03/05/2020 03/17/2020 03/17/2020 7:55 PM EST COVID-19 - Confirmed infection 05/01/2020 05/07/2020 06/01/2020 5:06 PM EST COVID-19 - Suspected infection 05/10/2020 05/10/2020 05/24/2020 10:34 PM EST documented as of this encounter Care Teams Metallurgist Process Relationship Specialty Start Date End Date Agustin Mix [address] [place] [id number] PCP - General Internal Medicine 04/15/17 documented as of this encounter
--- OUTSIDE RECORDS SUMMARY | 2024-12-13 08:37 | XMS_ITS | Encounter Summary ---
Author Organization [facility] Address [address] [place] [address] Care Team Providers Care Bail Bonding Agent Name Role Phone Agustin Mix Primary Care Provider + Encounter Details Date Type Department Care Team (Late st Contact Info) Description 12/30/2021 Orders Only [facility] Interventional Radiology [address] [place] [address] Avelino Otero DO [address] [place] [address] Social History Tobacco Use Types Packs/Day Years [...] Info) Description 02/06/2025 9:30 AM EDT Follow-Up [facility] Liver Transplant Services [address] [place] [address] Dylan Phelps MD [address] [place] [address] documented as of this encounter Visit Diagnoses Not on filedocumented in this encounter Care Teams Bail Bonding Agent Relationship Specialty Start Date End Date Agustin Mix [address] [place] [address] PCP - General Internal Medicine 04/15/17 documented as of this encounter
--- OUTSIDE RECORDS SUMMARY | 2024-12-13 08:37 | XMS_ITS | Encounter Summary ---
Author Organization [facility] Address [address] [place] [address] Care Team Providers Care Curriculum Development Coordinator Name Role Phone Agustin Mix Primary Care Provider + Encounter Details Date Type Department Care Team (Late st Contact Info) Description 01/21/2017 Transplant Conversio n Encounter [facility] Health Information Management [address] [place] [address] Provider, [facility] Social History Tobacco [...] Description 02/06/2025 9:30 AM EDT Follow-Up [facility] Liver Transplant Services [address] [place] [address] Dylan Phelps MD [address] [place] [address] documented as of this encounter Visit Diagnoses Not on filedocumented in this encounter Additional Health Concerns Infection Onset Date Last Indicated Resolved Time 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 + BC at [facility] > 6 months ago - can D/C contact isolation 01/20/2019 02/10/2019 08/10/2019 9:27 AM E DT COVID-19 - Suspected infection 03/05/2020 03/17/2020 03/17/2020 7:55 PM EST COVID-19 - Confirmed infection 05/01/2020 05/07/2020 06/01/2020 5:06 PM EST COVID-19 - Suspected infection 05/10/2020 05/10/2020 05/24/2020 10:34 PM EST documented as of this encounter Care Teams Curriculum Development Coordinator Relationship Specialty Start Date End Date Agustin Mix [address] [place] [address] PCP - General Internal Medicine 04/15/17 documented as of this encounter
--- OUTSIDE RECORDS SUMMARY | 2024-12-13 08:37 | XMS_ITS | Encounter Summary ---
Author Organization [employer] Address [address] [place] [address] 7 [place] [address] Care Team Providers Care Radio Survey Worker Name Role Phone Agustin Marrero MD Primary Care Provide r Encounter Details Date Type Department Care Team (Late st Contact Info) Description 08/28/2022 Abstract [facility] MEDICINE [address] [place] [address] Agustin Marrero MD [address] [place] [address] Social History Tobacco Use Types Packs/Day Years [...] Description 01/06/2025 11:30 AM EDT Clinical Support [facility] MEDICINE [address] [place] [address] Shwetha Collado RN [address] [place] [address] 05/31/2025 8:00 AM EST Office Visit [facility] ADULT DENTAL [address] [place], [place] [phone] Catherine Antonio [address] [place] [address] documented as of this encounter Procedures Procedure Name Priority Date/Time Associated Diagnosis Comments COLONOSCOPY Routine 06/28/2021 documented in this encounter Results * Colonoscopy (06/28/2021) Colonoscopy Normal Normal 06/28/2021 Shanel Chen - 06/28/2021 9:58 AM EST Recommended 3 year follow up per GI notes ( [facility] ) us Historical Provider [facility] Edited Result - Final documented in this encounter Visit Diagnoses Not on filedocumented in this encounter Care Teams Radio Survey Worker Relationship Specialty Start Date End Date Agustin Marrero MD [address] [place] [address] PCP - General Internal Medicine 01/25/14 [facility] 06/13/16 documented as of this encounter
--- OUTSIDE RECORDS SUMMARY | 2024-12-13 08:37 | XMS_ITS | Encounter Summary ---
Author Organization [facility] Address [address] [place] [address] Care Team Providers Care Lower School Music Teacher Name Role Phone Agustin Mix Primary Care Provider + Encounter Details Date Type Department Care Team (Late st Contact Info) Description 11/24/2024 Results Follow-Up [facility] Transplant Department [address] [place] [address] Erika Bonds RN Social History Tobacco Use [...] Info) Description 02/06/2025 9:30 AM EDT Follow-Up [facility] Liver Transplant Services [address] [place] [address] Dylan Phelps MD [address] [place] [address] documented as of this encounter Visit Diagnoses Not on filedocumented in this encounter Care Teams Lower School Music Teacher Relationship Specialty Start Date End Date Agustin Mix [address] [place] [address] PCP - General Internal Medicine 04/15/17 documented as of this encounter
--- OUTSIDE RECORDS SUMMARY | 2024-12-13 08:37 | XMS_ITS | Encounter Summary ---
Author Organization [facility] Address [address] [place] [address] Care Team Providers Care Jewelry Bench Molder Name Role Phone Agustin Mix Primary Care Provider + Encounter Details Date Type Department Care Team (Latest Contact Info) Description 12/12/2024 Orders Only [facility] Transplant Department [address] [place] [address] Erika Bonds RN Encounter for immunosuppression management after liver transplant (HCC) (Primary Dx); History of hepatocellular carcinoma Social History Tobacco Use Types Packs/Day Years [...] Info) Description 02/06/2025 9:30 AM EDT Follow-Up [facility] Liver Transplant Services [address] [place] [address] Dylan Phelps MD [address] [place] [address] Scheduled Orders Name Type Priority Associated Diagnoses Orde r Schedule Comprehensive Metabolic Panel Lab Routine Encounter for immunosuppression management after liver transplant (HCC) History of hepatocellular carcinoma Every 4 Weeks for 6 Occurrences starting 12/12/2024 until 06/10/2025 Magnesium Lab Routine Encounter for immunosuppression management after liver transplant (HCC) History of hepatocellular carcinoma Every 4 Weeks for 6 Occurrences starting 12/12/2024 until 06/10/2025 CBC Auto Differential Lab Routine Encounter for immunosuppression management after liver transplant (HCC) History of hepatocellular carcinoma Every 4 Weeks for 6 Occurrences starting 12/12/2024 until 06/10/2025 Tacrolimus Level Lab Routine Encounter for immunosuppression management after liver transplant (HCC) History of hepatocellular carcinoma Every 4 Weeks for 6 Occurrences starting 12/12/2024 until 06/10/2025 documented as of this encounter Visit Diagnoses Diagnosis Encounter for immunosuppression management after liver transplant (HCC)- Primary History of hepatocellular carcinoma documented in this encounter Care Teams Jewelry Bench Molder Relationship Specialty Start Date End Date Agustin Mix [address] [place] [address] PCP - General Internal Medicine 04/15/17 documented as of this encounter
--- OUTSIDE RECORDS SUMMARY | 2024-12-13 08:37 | XMS_ITS | Encounter Summary ---
Author Organization [employer] Address [address] [place] [address] 7t [place] [address] Care Team Providers Care Trekking Guide Name Role Phone Agustin Marrero MD Primary Care Provide r Reason for Visit * Reason Comments Med Refill Encounter Details Date Type Department Care Team ([facility] st Contact Info) Description 05/13/2024 Refill [facility] MEDICINE [address] [place], [place] [phone] Agustin Marrero MD [address] [place] [address] Social History Tobacco Use Types Packs/Day Years [...] 11:30 AM EDT Clinical Support [facility] MEDICINE [address] [place] [address] Shwetha Collado RN [address] [place] [address] 05/31/2025 8:00 AM EST Office Visit [facility] ADULT DENTAL [address] [place] [address] Paco, Catherine [address] [place] [address] documented as of this encounter Visit Diagnoses Not on filedocumented in this encounter Additional Health Concerns Assessment Noted Time PHQ-9 Depression Total Score: 0 12/03/19 24 10:31 AM EDT documented as of this encounter Care Teams Trekking Guide Relationship Specialty Start Date End Date Agustin Marrero MD [address] [place] [address] PCP - General Internal Medicine 01/25/14 [facility] 06/13/16 documented as of this encounter
--- OUTSIDE RECORDS SUMMARY | 2024-12-13 08:37 | XMS_ITS | Encounter Summary ---
Author Organization [employer] Address [address] [place] [address] [address] Care Team Providers Care Medical Secretary Teacher Name Role Phone Agustin Marrero MD Primary Care Provide r Encounter Details Date Type Department Care Team (Latest Contact Info) Description 07/16/2020 Abstract [facility] CONVERSIONS Dental, Provider, DDS Social History Tobacco [...] 01/06/2025 11:30 AM EDT Clinical Support [facility] MEDICINE [address] [place] [address] Shwetha Collado RN [address] [place] [address] 05/31/2025 8:00 AM EST Office Visit [facility] ADULT DENTAL [address] [place] [address] Matty Antonioaris [address] [place] [address] documented as of this encounter Visit Diagnoses Not on filedocumented in this encounter Care Teams Medical Secretary Teacher Relationship Specialty Start Date End Date Agustin Marrero MD [address] [place] [address] PCP - General Internal Medicine 01/25/14 [facility] 06/13/16 documented as of this encounter
--- OUTSIDE RECORDS SUMMARY | 2024-12-13 08:37 | XMS_ITS | Encounter Summary ---
Author Organization [employer] Address [address] [place] [address] 7 [place] [address] Care Team Providers Care Computer System Validation Specialist Name Role Phone Agustin Marrero MD Primary Care Provide r Reason for Visit * Reason Onset Date Comments Medication Question 05/11/2024 Encounter Details Date Type Department Care Team ([facility] st Contact Info) Description 05/11/2024 Telephone [facility] MEDICINE [address] [place], [place] [phone] Agustin Marrero MD [address] [place], [place] [phone] Medication Question Social History Tobacco Use Types [...] Dr Richardson's office on 05/11/2024. Note in [facility] EHR: Received call from Edward's VNA nurse questioning if he still needs to be on Kayexelate 2x weekly. She states he has been out ofit for probably 1 month as he was under the impression the order was discontinued. Labs on 04/25 showK level within normal limits. Instructed her to have him repeat labs in early May to continue to monitor. Called [facility] pharmacy, spoke with Faiza who stated that pt last picked up Kayexalate on 08/13/2023, Rx was written by Dr Lenin Richardson for 30g 1x weekly as directed. Called [facility] Dr Richardson's office to confirm. Spoke with [...] 2x weekly). She states she spoke with Ashley RN at Dr Richardson's office and received same messageas above. Cleaner Greaser advised Jessica to contact Dr Richardson with any questions regarding this med given that they prescribe it. Jessica stated she will be following up with their office in May once the pt gets their labs drawn. Advised her to call [facility] if any other questions or [...] leaving original prescriber contact information. Dr. Richardson [facility]. . If any questions for Jessica you can contact pt at [phone]. documented in this encounter Plan of Treatment Upcoming Encounters Date Type Department Care Team (Late st Contact Info) Description 01/06/2025 11:30 AM EDT Clinical Support [facility] MEDICINE [address] [place] [address] Shwetha Collado RN [address] [place] [address] 05/31/2025 8:00 AM EST Office Visit [facility] ADULT DENTAL [address] [place] [address] Paco, Catherine [address] [place] [address] documented as of this encounter Visit Diagnoses Not on filedocumented in this encounter Additional Health Concerns Assessment Noted Time PHQ-9 Depression Total Score: 0 12/03/19 24 10:31 AM EDT documented as of this encounter Care Teams Computer System Validation Specialist Relationship Specialty Start Date End Date Agustin Marrero MD [address] [place] [address] PCP - General Internal Medicine 01/25/14 [facility] 06/13/16 documented as of this encounter
--- OUTSIDE RECORDS SUMMARY | 2024-12-13 08:37 | XMS_ITS | Encounter Summary ---
Author Organization [employer] Address [address] [place] [address] 7 [place] [address] Care Team Providers Care Fire Protection Specialist Name Role Phone Agustin Marrero MD Primary Care Provide r Reason for Visit * Reason Onset Date Comments Med Refill 10/16/2022 Encounter Details Date Type Department Care Team ([facility] st Contact Info) Description 10/16/2022 Telephone [facility] MEDICINE [address] [place], [place] [phone] Agustin Marrero MD [address] [place], [place] [phone] Med Refill Social History Tobacco Use Types [...] yesterday; Pending * Telephone Encounter - Lluvia Mendoza - 10/16/2022 9:37 AM EDT Tc from pt requesting medication refill for traMADol (Ultram) 50 MG tablet documented in this encounter Plan of Treatment Upcoming Encounters Date Type Department Care Team (Late st Contact Info) Description 01/06/2025 11:30 AM EDT Clinical Support [facility] MEDICINE [address] [place] [address] Shwetha Collado RN [address] [place] [address] 05/31/2025 8:00 AM EST Office Visit [facility] ADULT DENTAL [address] [place] [address] Matty Antonioaris [address] [place] [address] documented as of this encounter Visit Diagnoses Not on filedocumented in this encounter Care Teams Fire Protection Specialist Relationship Specialty Start Date End Date Agustin Marrero MD [address] [place] [address] PCP - General Internal Medicine 01/25/14 [facility] 06/13/16 documented as of this encounter
--- OUTSIDE RECORDS SUMMARY | 2024-12-13 08:37 | XMS_ITS | Encounter Summary ---
Author Organization [employer] Address [address] [place] [address] [address] Care Team Providers Care Goat Farmer Name Role Phone Agustin Marrero MD Primary Care Provide r Encounter Details Date Type Department Care Team (Latest Contact Info) Description 05/23/2019 Abstract [facility] CONVERSIONS Dental, Provider, DDS Social History [...] Description 01/06/2025 11:30 AM EDT Clinical Support [facility] MEDICINE [address] [place] [address] Shwetha Collado RN [address] [place] [address] 05/31/2025 8:00 AM EST Office Visit [facility] ADULT DENTAL [address] [place] [address] Matty Antonioaris [address] [place] [address] documented as of this encounter Visit Diagnoses Not on filedocumented in this encounter Care Teams Goat Farmer Relationship Specialty Start Date End Date Agustin Marrero MD [address] [place] [address] PCP - General Internal Medicine 01/25/14 [facility] 06/13/16 documented as of this encounter
--- OUTSIDE RECORDS SUMMARY | 2024-12-13 08:37 | XMS_ITS | Encounter Summary ---
Author Organization [employer] Address [address] [place] [address], [place] [address] Care Team Providers Care Felter Tennis Balls Name Role Phone Agustin Marrero MD Primary Care Provide r Encounter Details Date Type Department Care Team (Latest Contact Info) Description 09/06/2018 Abstract [facility] CONVERSIONS Dental, Provider, DDS Social History [...] Description 01/06/2025 11:30 AM EDT Clinical Support [facility] MEDICINE [address] [place] [address] Shwetha Collado RN [address] [place] [address] 05/31/2025 8:00 AM EST Office Visit [facility] ADULT DENTAL [address] [place] [address] Matty Antonioaris [address] [place] [address] documented as of this encounter Visit Diagnoses Not on filedocumented in this encounter Care Teams Felter Tennis Balls Relationship Specialty Start Date End Date Agustin Marrero MD [address] [place] [address] PCP - General Internal Medicine 01/25/14 [facility] 06/13/16 documented as of this encounter
--- OUTSIDE RECORDS SUMMARY | 2024-12-13 08:37 | XMS_ITS | Encounter Summary ---
Author Organization [employer] Address [address] [place] [address] 7 [place] [address] Care Team Providers Care Farm Contractor Name Role Phone Agustin Marrero MD Primary Care Provide r Reason for Visit * Reason Onset Date Comments Error 05/12/2023 Encounter Details Date Type Department Care Team ([facility] st Contact Info) Description 05/12/2023 Telephone [facility] [address] [place], [place] [phone] Agustin Marrero MD [address] [place], [place] [phone] Error Social History Tobacco Use Types Packs/Day [...] Description 01/06/2025 11:30 AM EDT Clinical Support [facility] [address] [place] [address] Shwetha Collado RN [address] [place] [address] 05/31/2025 8:00 AM EST Office Visit [facility] [address] [place] [address] Paco, Catherine [address] [place] [address] documented as of this encounter Visit Diagnoses Not on filedocumented in this encounter Care Teams Farm Contractor Relationship Specialty Start Date End Date Agustin Marrero MD [address] [place] [address] PCP - General Internal Medicine 01/25/14 [facility] 06/13/16 documented as of this encounter
--- OUTSIDE RECORDS SUMMARY | 2024-12-13 08:37 | XMS_ITS | Encounter Summary ---
Author Organization [employer] Address [address] [place] [address] [address] [address] Care Team Providers Care Dba Manager Name Role Phone Agustin Marrero MD Primary Care Provide r Reason for Visit * Reason Onset Date Comments Med Refill 12/15/2022 Encounter Details Date Type Department Care Team ([facility] st Contact Info) Description 12/15/2022 Telephone [facility] [address] [place], [place] [phone] Agustin Marrero MD [address] [place] [address] Med Refill Social History Tobacco Use Types [...] Description 01/06/2025 11:30 AM EDT Clinical Support [facility] [address] [place] [address] Shwetha Collado, RN [address] [place] [address] 05/31/2025 8:00 AM EST Office Visit [facility] ADULT [facility]ENTAL [address] [place] [address] Matty Antonioaris [address] [place] [address] documented as of this encounter Visit Diagnoses Not on filedocumented in this encounter Care Teams Dba Manager Relationship Specialty Start Date End Date Agustin Marrero MD [address] [place] [address] PCP - General Internal Medicine 01/25/14 [facility] 06/13/16 documented as of this encounter
--- OUTSIDE RECORDS SUMMARY | 2024-12-13 08:37 | XMS_ITS | Encounter Summary ---
Author Organization [facility] Address [address] [place] [address] Care Team Providers Care Cyber Incident Handler Name Role Phone Agustin Mix Primary Care Provider + Encounter Details Date Type Department Care Team (Late st Contact Info) Description 04/02/2020 Orders Only [facility] Interventional Radiology [address] [place] [address] Kathy Bowling MD [address] [place], [place] [phone] Social History Tobacco Use Types Packs/Day Years [...] Info) Description 02/06/2025 9:30 AM EDT Follow-Up [facility] Liver Transplant Services [address] [place], [place] [phone] Dylan Phelps MD [address] [place] [address] documented as of this encounter Visit Diagnoses Not on filedocumented in this encounter Additional Health Concerns Infection Onset Date Last Indicated Resolved Time COVID-19 - Confirmed infection 05/01/2020 05/07/2020 06/01/2020 5:06 PM EST COVID-19 - Suspected infection 05/10/2020 05/10/2020 05/24/2020 10:34 PM EST documented as of this encounter Care Teams Cyber Incident Handler Relationship Specialty Start Date End Date Agustin Mix [address] [place] [address] PCP - General Internal Medicine 04/15/17 documented as of this encounter
--- OUTSIDE RECORDS SUMMARY | 2024-12-13 08:37 | XMS_ITS | Clinical Summary ---
Author Organization [facility] Address [address] [place] [address] Care Team Providers Care Surveyor Helper Name Role Phone Agustin Mix Primary [...] needed daily 2 Active FreeStyle Arvin 2 [place] misc 2 Active BD Insulin Syringe Ultra-Fine [...] HOURS OR SEG N LO INDICADO Active magnesium oxide (MAG-OX) 400 mg (241.3 mg mag) tabletIndicatio ns:Low magnesium level TAKE 2 TABLETS (800 MG TOTAL) BY MOUTH 2 TIMES A DAY. 360 tablet 5 4 Active Daily-Stacy, with folic acid, tablet SMARTSI Tablet(s) By Mouth Daily 5 Active ammonium lactate (AMLACTIN) 12 % cream SMARTSIG:Topica l Twice Daily 4 Active Gvoke HypoPen 1-Pack 0.5 mg/0.1 mL auto-injector PLEASE SEE ATTACHED FOR DETAILED DIRECTIONS 4 Active tacrolimus (PROGRAF) 1 mg capsuleIndicati ons:History of liver transplant (HCC) TOME 1 CAPSULA POR VIA ORAL CADA EDANDRE HORRAYMOND 270 capsule 3 5 Active Active Problems Problem Noted Date Diagnosed [...] ERCP tomorrow -serum CMV PCR -follow up [facility] -follow up blood cultures History of liver [...] in March 2020. He was seen by china painter at [facility] who discussed that he might [...] for liver biopsy, since LFT pattern not office services representative of rejection. Additionally, Liver ultrasound showed [...] recurrent ESBL bacteremia. Initially presented to [facility] for fever, LE swelling and pain. Unclear source. BCX grew esbl E.Coli 1 out of 2 sets from [facility], susceptible to Ertapenem. Initially he was on [...] recurrent ESBL bacteremia. Initially presented to [facility] for fever, LE swelling and pain. Unclear source. BCX grew esbl E.Coli 1 out of 2 sets from [facility], susceptible to Ertapenem. Initially he was on [...] ESBL bacteremia. Patient initially presented to [facility] for fever and LE swelling and pain. Unclear source. BCX grew esbl E.Coli 1 out of 2 sets from [facility], susceptible to Ertapenem. Initially he was on zosyn, and was switched to ertapenem. On previous admission, MRCP on 12/20 or Abdominal US on 01/16 showed no biliary dilatation. - continue ertapenem (10 day course to be completed on 02/09 per [facility] note) - repeat BCX - CT AP w/ contrast - consult transplant ID in the AM - f/u CBC and CMP Assessment & Plan (02/05/2019 5:40 AM EDT): Patient has a recurrent history of recurrent ESBL bacteremia. Patient initially presented to [facility] for fever and LE swelling and pain. Unclear source. BCX grew esbl E.Coli 1 out of 2 sets from [facility], susceptible to Ertapenem. Initially he was on zosyn, and was switched to ertapenem. On previous admission, MRCP on 12/20 or Abdominal US on 01/16 showed no biliary dilatation. - continue ertapenem (10 day course to be completed on 02/09 per [facility] note) - repeat BCX - CT AP [...] was found. OSH GI recommended transfer to [facility] as there was a suspicion [...] AP not concerning for pathology. -BCx grew GNR -transplant ID consulted -[facility] was called for speciation, it will [...] concerning for pathology. -Transplant ID is following -[facility] will fax culture data, commented that [...] 8:59 AM EST): Hyponatremic to 132 at [facility]. Na 128, constant through hospitalization. - daily BMP Assessment & Plan (02/09/2019 11:02 AM EDT): Hyponatremic to 132 at [facility]. Na 128, constant through hospitalization. - daily BMP Assessment & Plan (02/05/2019 5:51 AM EDT): Hyponatremic to 132 at [facility]. - repeat BMP in am and redose diuretics Assessment & Plan (02/05/2019 5:47 AM EDT): Hyponatremic to 132 at [facility]. - repeat BMP in am and [...] ago. He is able to bear weight. -Tramadol 50mg daily PRN per home med [...] Presented again on day of admission to [facility] with worsening shortness of breath where a CT chest PE protocol was performed which showed no evidence of intraluminal filling defect though did make note of large left- sided pleural effusion with associated complete left lower lobe collapse as well as partial left upper lobe collapse. Due to recurrent pleural effusion and likely need for repeat thoracentesis patient was transferred [facility]. On arrival patient without any increased work of breathing and saturating well on room air. Exam reveals absent breath sounds in the left middle and lower lung perez with increased dullness to percussion. 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 -We will have CT scan from [facility] uploaded into our system for review -CXR on 07/11 showed large left pleural effusion -IP consulted for thoracentesis. Will send fluid studies. -Requested [facility] records of pleural fluid studies from 07/06 -Supplemental oxygen as needed to maintain sats greater than 92% Assessment & Plan (01/19/2019 10:11 AM EDT): Patient is s/p thoracentesis after large left lung effusion unchanged from previous admission seen on imaging. Site of thoracentesis covered with bandage that is dry and intact. Chart review of his prior hospitalization at [facility] revealed that he had thoracentesis on January 11, 2019, during which 1.6 L was taken out, and fluid study revealed white blood cell count of 2650 and segs of 35%, suggesting exudative fluid, although it seems that no paracentesis was done at [facility]. - decreased breath sounds in middle and [...] or maybe exacerbated by some underlying infection. -CXR showed large pleural effusion -hold lasix [...] resulting transudative fluid, rapidly reaccumulating, transferred to [facility] for TIPS intervention. Resumed diuretics [...] procedure in 2017. Most recent hospitalization at [facility] was in January 2019 when he was [...] Of note, reached out to [facility] to double check if paracentesis was done, and whether there is a fluid study of the sample, however it appears that no paracentesis was done at [facility]. - Start Lactulose increased to 20 g [...] & Plan (12/21/2018 5:54 PM EDT): Decompensations include ascites, hepatic encephalopathy, SBP, extremity swelling, and pleural effusion. - Daily MELD labs - Continue with home lactulose 3 times daily to prevent hepatic encephalopathy - Hold spironolactone - Continue rifaximin 550mg q12h - MRCP showed Liver cirrhosis with portal hypertension, and two hepatic lesions. Assessment & Plan (12/22/2018 1:39 PM EDT): Decompensations include ascites, hepatic encephalopathy, SBP, extremity swelling, and pleural effusion. Plan -Daily MELD labs -Continue with home [...] from TIPS procedure and was sent to [facility] for further evaluation. Plan -Continue [...] Encounters Date Type Department Care Team Description 12/12/2024 Orders Only [facility] Transplant Department [address] [place] [address] Erika Bonds RN Encounter for immunosuppression management after liver transplant (HCC) (Primary Dx); History of hepatocellular carcinoma 11/25/2024 Abstract [facility] Trans[facility] [address] [place] [address] Dylan Phelps MD 11/24/2024 Results Follow-Up [facility] Transplant [facility] [address] [place] [address]252 Erika Bonds RN 11/24/2024 Abstract [facility] [address] [place] [address] Dylan Phelps MD 10/21/2024 Refill [facility] Transplant Services [address] [place] [address] Dylan Phelps MD History of liver transplant (HCC) 10/20/2024 Abstract [facility] Department [address] [place] [address] Dylan Phelps MD 09/22/2024 Abstract [facility] [address] [place] [address] Dylan Phelps MD 09/22/2024 Results Follow-Up [facility] [address] [place] [address] 38871 Erika Bonds RN 09/22/2024 Abstract [facility] [address] [place] [address] Dylan Phelps MD from Last 3 Months [...] 60 08/01/2024 10:18 AM EDT Temperature 37 C (98.6 F) 08/01/2024 10:18 AM EDT Respiratory Rate 18 [...] Info) Description 02/06/2025 9:30 AM EDT Follow-Up [facility] Liver Transplant Services [address] [place] [address] Dylan Phelps MD [address] [place], [place] [phone] Health Maintenance Due Date Last Done Comments [...] 11/29/2024 11/30/2023, 11/05/2023, 05/06/2022, Additional history exists Influenza Vaccine (#1) 2024 , 02/12/2023, 05/06/2022, Additional history exists Hemoglobin A1C 01/05/2025 [...] Discontinued 11/30/2023, 11/05/19, 05/06/2022, Additional history exists Medical Devices Implanted Type Area Circular Saw Edge Fuser Device Identifier Shelf Expiration Date Model / Serial / Lot Shunt Transjugular Intrahepatic Portosystemic Tips Endoprosthesis [id number] Viatorr - [id number] Implanted:Qty: 1 on 07/28/2017 at [facility] Implant W L GORE 12/26/2019 [id number] / / Mesh Hernia With Strap Large Ventralex - [id number] Implanted:Qty: 1 on 03/20/2020 by Fernando Fine MD PhD at [facility] Mesh Right: Abdomen [employer] 01/15/2021 [id number] / / [id number] Stent Biliary Rx Fully Covered Self Expanding Metallic Rmv With Permalume Covering 8.5fr [id number] Wallflex - [id number] - [id number] Implanted:Qty: 1 on 11/21/2022 by Dunia Osorio MD at [facility] Stent N/A: Bile Duct [employer] 08/21/2024 [id number] / [id number] / Explanted Type Area Circular Saw Edge Fuser Device Identifier Shelf Expiration Date Model / Serial / Lot Ercp Stent-11/21/2022 Implanted:07/2022 (Quantity not on file) Explanted:06/2022 (Quantity not on file) ERCP Stent Bile Duct 1 / / Txp Internal Biliary Stent- 0 Implanted:04/2 04/2019 (Quantity not on file) Explanted:060 07/2020 (Quantity not on file) TXP Internal Biliary Stent Bile Duct Procedures * Due to [place] state law, this organization might not be sharing negative HIV tests. Procedure Name Priority Date/Time Associated Diagnosis Comments AFP TUMOR MARKER, OUTSIDE LAB Routine 11/23/2024 7:08 AM EDT LIVER POST EXTERNAL PANEL Routine 11/23/2024 7:08 AM EDT LIVER POST EXTERNAL PANEL Routine 10/19/2024 7:53 AM EDT AFP TUMOR MARKER, OUTSIDE LAB Routine 09/20/2024 7:26 AM EDT LIVER POST EXTERNAL PANEL Routine 09/20/2024 7:[address] CHEST W CONTRAST Routine 11/05/2023 4 [...] Health Maintenance Results * Due to [place] BYOM! law, this organization might not be sharing negative HIV tests. * LIVER POST EXTERNAL PANEL (11/23/2024 7:08 AM EDT) Only the most recent of3 resultswithin the time period is included. Tacrolimus, Highly Sensitive 3.[address] [facility] Sodium 136 mmol/L [facility] Potassium 4.[address] [facility] Chloride [address] [facility] Carbon Dioxide 24 [facility] Glucose [address] [facility] BUN 18 mg/dL [facility] Creatinine 1.11 mg/dL [facility] Calcium 9.1 mg/dL [facility] Total Protein 6.9 g/dL [facility] Albumin 4.6 g/dL [facility] Bilirubin, Total 0.9 mg/dL [facility] Alkaline Phosphatase 92 U/L [facility] AST 29 U/L [facility] ALT 32 U/L [facility] Magnesium 1.50 mg/dL [facility] WBC 5.0 10*3/uL [facility] Hgb 14.[address] [facility] Hematocrit 38.6 % [facility] Platelets 125 10*3/uL [facility] 11/23/2024 7:08 AM EDT Dylan Phelps MD LAB BLOOD ORDERABLES Final Re sult Performing Organization Address [facility] Co de Phone Number [facility] [address] [place] [address] * AFP Tumor Marker, Outside Lab (11/23/2024 7:08 AM EDT) Only the most recent of2 resultswithin the time period is included. Alpha Fetoprotein, Tumor Marker 1.[address] [facility] Blood Structure of peripheral vein / Unknown 11/23/2024 7:08 AM EDT Dylan Phelps MD LAB BLOOD ORDERABLES Final Re sult Performing Organization Address [facility] Co de Phone Number [facility] [address] [place] [address] * CT Chest W Contrast (11/05/2023 4:35 PM EDT) Anatomical Region Laterality Modality Body Computed Tomogra phy 11/05/2023 5:42 PM EDT Impressions 11/19/2023 3:36 PM EDT Impression: Stable micronodules. No new nodules. No thoracic adenopathy. If this radiology report contains a blank impression section, it is an incomplete radiology report. Please contact the interpreting radiologist or applicable radiology division as soon as possible to obtain the completed interpretation. Workstation ID: [id number] Up-to-date CT equipment and radiation dose reduction techniques were employed. CTDIvol: 3.1 - 23.9 mGy. DLP: 2643 mGy-cm. The following accession numbers are related to this dose report [id number]: [id number] Narrative 11/19/2023 3:36 PM EDT Indication: 58 year old male with history [...] focal abnormality in the liver or spleen. Status post liver transplantation. Chest wall and bones: Mild degenerative change in the spine. Bilateral gynecomastia. Resulting Agency Comment [id number] Procedure Note Natasha Michaud MD - 11/19/2023 [...] possible to obtain thecompleted interpretation. Workstation ID: [id number] Up-to-date CT equipment and radiation dose reduction techniques wereemployed. CTDIvol: 3.1 - 23.9 mGy. DLP: 2643 mGy-cm. The followingaccession numbers are related to this dose report [id number]: [id number] Dylan Phelps MD [facility] [place] PROCEDURES Final Resul t * (ABNORMAL) Basic Metabolic Panel (11/15/2022 3:07 AM EDT) NA 135 135 - 145 mmol/L 11/15/2022 4:09 AM EDT [facility] K 4.6 3.5 - 5.3 mmol/L 11/15/2022 4:09 AM EDT [facility] Cl 103 97 - 110 mmol/L 11/15/2022 4:09 AM EDT [facility] CO2 24 24 - 32 mmol/L 11/15/2022 4:09 AM EDT [facility] BUN 27(H) 7 - 23 mg/dL 11/15/2022 4:09 AM EDT [facility] Creatinine 1.05 0.60 - 1.30 mg/dL 11/15/2022 4:09 AM EDT [facility] Glucose 268(H) 70 - 99 mg/dL 11/15/2022 4:09 AM EDT [facility] Calcium 8.8 8.7 - 10.7 mg/dL 11/15/2022 4:09 AM EDT [facility] Anion Gap 8 5 - 15 11/15/2022 4:09 AM EDT [facility] eGFR 82 >=60 mL/min/1. 73m2 11/15/2022 4:09 AM EDT [facility] Comment:The estimated glomer ular [...] ORDERABLES Final Re sult Performing Organization Address City/[facility]/ZIP Co de Phone Number [facility] [address] [place] [address], * Microalbumin, Random Urine with Creatinine (05/17/2021 11:35 AM EST) Microalbumin, Urine 1.1 mg/dL 05/17/2021 12:34 PM EST [facility] Creatinine, Urine 97 22 - 328 mg/dL 05/17/2021 12:34 PM EST [facility] Microalb/Creat Ratio, Random Urine 11.3 <30.0 mcg/mgCr 05/17/2021 12:34 PM EST [facility] Comment: Microalbumin Reference Range: Normal <30 mcg/mg Creatinine Microalbuminuria 30-300 mcg/mg Creatinine Clinical Albuminuria >300 mcg/mg Creatinine Reference: ADA Guideline. Diabetes Care. 2004;27 (suppl 1) Urine Voided urine specimen / Unknown Non-Blood Collection / Unknown 05/17/2021 11:35 AM EST 05/17/2021 12:01 PM EST Angelita Villa MD LAB URINE ORDERABLES Final Resul t [facility] [address] [place] [address], [place] * (ABNORMAL) Hemoglobin A1c (05/17/2021 11:31 AM EST) Hemoglobin A1C 7.7(H) <5.7 % of total Hgb 05/18/2021 2:37 AM EST [facility] Comment: For someone without known diabetes, a [...] A1c for diagnosis of diabetes for children. eAG (MG/DL) 174 mg/dL 05/18/2021 2:37 AM EST [facility] eAG (MMOL/L) 9.7 mmol/L 05/18/2021 2:37 AM EST [facility] Blood Structure of peripheral vein / Unknown Venipuncture / Unknown 05/17/2021 11:31 AM EST 05/17/2021 11:40 AM EST Narrative [facility] - 05/18/2021 2:37 AM EST [facility] Received Date: us Angelita Villa MD LAB BLOOD ORDERABLES Final Resul t [facility] [address] [facility] [address], [place] [address], [place] [phone] [employer] [facility] [address] [facility] 3rd Floor, [place] [address], [place] [phone] * CT Abdomen Pelvis with Contrast (05/05/2020 5:27 PM EST) Anatomical Region Laterality Modality Body Computed Tomogra phy 05/06/2020 8:40 AM EST Impressions 05/06/2020 8:50 AM EST Small fluid pocket between the incision and transverse colon which may represent developing adhesions. Recommend correlation for any signs of infection in the incision on exam. Otherwise, no CT findings that might explain patient's fever. [id number] Narrative 05/06/2020 8:50 AM EST EXAMINATION: CT ABDOMEN PELVIS W CONTRAST INDICATION: Liver transplant patient. Newly febrile. TECHNIQUE: Images of the abdomen and pelvis were obtained with intravenous contrast, with oral contrast. Coronal and sagittal reformats were generated. COMPARISON: 02/10/2020. FINDINGS: LOWER THORAX: Please refer [...] no CT findings that mightexplain patient's fever. [id number] Reyes Voss MD IMG CT PROCEDURES Final Result * Hepatitis C RNA, Quantitative, PCR (09/09/2019 11:52 AM EDT) Hcv RNA, Quantitative Real Time PCR <15 NOT DETECTED NOT DETECTED IU/mL 09/14/2019 5:38 PM EDT [facility] Hepatitis C Quantitative PCR Log IU/mL <1.18 NOT DETECTED NOT DETECTED Log IU/mL 09/14/2019 5:38 PM EDT [facility] Comment: This test was performed using Real-Time Polymerase Chain Reaction. Reportable Range: 15 IU/mL to 100,000,000 IU/mL (1.18 Log IU/mL to 8.00 Log IU/mL). The analytical performance characteristics of this assay have been determined by [employer]. The modifications have not been cleared or approved by the FDA. This assay has been validated pursuant to the CLIA regulations and is used for clinical purposes. For more information on this test, go to: http://education.[employer]/faq/EZV74l8 (This link is being provided for informational/ educational purposes only.) Blood Structure of peripheral vein / Unknown Venipuncture / Unknown 09/09/2019 11:52 AM EDT 09/09/2019 12:07 PM EDT Narrative [facility] - 09/14/2019 5:38 PM EDT [facility] Received Date:[id number] Cyndi Pereira MD LAB BLOOD ORDERAB LES Final Result [facility] [address] [facility] [address], [place] [address], [place] [phone] [facility] [address] [facility] 3rd Floor, [place] [address], [place] [phone] from Last 3 Months or Most Recently Relevant to Health Maintenance Insurance [address] [place] [id number] [facility] [address] [place] [place] [address] [facility] [address] [place] [address] [facility] Advance Directives Documents on File Type Date Recorded Patient Presentation Manager Expl anation Health Care Proxy 02/05/2019 [...] Jon Son Health Care Agent Care Teams Surveyor Helper Relationship Specialty Start Date End Date Agustin Mix [address] [place] [id number] PCP - General Internal Medicine 04/15/17
--- OUTSIDE RECORDS SUMMARY | 2024-12-13 08:37 | XMS_ITS | Encounter Summary ---
Author Organization [employer] Address [address] [place] [address] 7t [place] [address] Care Team Providers Care Notch Machine Operator Name Role Phone Agustin Marrero MD Primary Care Provide r Reason for Visit * Reason Comments Med Refill Encounter Details Date Type Department Care Team ([facility] st Contact Info) Description 06/04/2023 Refill [facility] MEDICINE [address] [place], [place] [phone] Natasha Nguyen MD [address] [place] [address] Gastroesophageal reflux disease, unspecified whether esophagitis present [...] Description 01/06/2025 11:30 AM EDT Clinical Support [facility] MEDICINE [address] [place] [address] Shwetha Colldao RN [address] [place] [address] 05/31/2025 8:00 AM EST Office Visit [facility] ADULT DENTAL [address] [place] [address] Catherine Antonio [address] [place] [address] documented as of this encounter Visit Diagnoses Diagnosis Gastroesophageal reflux disease, unspecified whether esophagitis present documented in this encounter Care Teams Notch Machine Operator Relationship Specialty Start Date End Date Agustin Marrero MD [address] [place] [address] PCP - General Internal Medicine 01/25/14 [facility] 06/13/16 documented as of this encounter
--- OUTSIDE RECORDS SUMMARY | 2024-12-13 08:37 | XMS_ITS | Encounter Summary ---
Author Organization [employer] Address [address] [place] [address] 7 [place] [address] Care Team Providers Care Coin Machine Servicer Repairer Name Role Phone Agustin Marrero MD Primary Care Provide r Reason for Visit * Reason Onset Date Comments Med Refill 05/26/2023 Encounter Details Date Type Department Care Team ([facility] st Contact Info) Description 05/26/2023 Telephone [facility] MEDICINE [address] [place], [place] [phone] Agustin Marrero MD [address] [place], [place] [phone] Med Refill Social History Tobacco Use Types [...] LITE test strip To be sent to: [facility]/pharmacy #[address] [place] [address] - [address] [place] [address] documented in this encounter Plan of Treatment Upcoming Encounters Date Type Department Care Team (Late st Contact Info) Description 01/06/2025 11:30 AM EDT Clinical Support [facility] MEDICINE [address] [place] [address] Shwetha Collado RN 505 [place] [address] 05/31/2025 8:00 AM EST Office Visit [facility] ADULT DENTAL [address] [place] [address] Catherine Antonio [address] [place] [address] documented as of this encounter Visit Diagnoses Not on filedocumented in this encounter Care Teams Coin Machine Servicer Repairer Relationship Specialty Start Date End Date Agustin Marrero MD [address] [place] [address] PCP - General Internal Medicine 01/25/14 [facility] 06/13/16 documented as of this encounter
--- OUTSIDE RECORDS SUMMARY | 2024-12-13 08:37 | XMS_ITS ---
Author Organization [facility] Address [address] [place] [address] Care Team Providers Care Tractor Crane Operator Name Role Phone Agustin Mix Primary Care Provider + Transplant Episode Liver Recipient [facility] ([place], [place]) - [facility] Organ Received: Liver Transplanted on 08/09/2019 Marked as Active Follow-up on 08/09/2019 Liver CoordinatorErika Bonds RN Phone: N/A Fax: N/A Email: N/A [place] Organ Diagnosis Organ Primary Contributory Liver Alcoholic [...] Team Name Role Phone Fax Email Erika oBnds RN Liver Coordinator N/A N/A N/A Dylan Phelps MD Special Effects Specialist [phone] [email or web address] Sarai Diaz Referring Physician [phone] N/A Events Post-Transplant Pre-Transplant Admitted: 08/09/2019 Referred: 09/08/2016 Transplanted: 08/09/2019 Evaluation began: 7 Discharged: 08/25/2019 Committee: 10/24/2016 Center waitlisted: 7
--- OUTSIDE RECORDS SUMMARY | 2024-12-13 08:37 | XMS_ITS | Encounter Summary ---
Author Organization [employer] Address [address] [place] [address] 7t [place] [address] Care Team Providers Care Lumber Trimmer Name Role Phone Agustin Marrero MD Primary Care Provide r Encounter Details Date Type Department Care Team ([facility] st Contact Info) Description 05/05/2023 Telephone [facility] MEDICINE [address] [place], [place] [phone] Agustin Marrero MD [address] [place], [place] [phone] Social History Tobacco Use Types Packs/Day Years [...] Description 01/06/2025 11:30 AM EDT Clinical Support [facility] MEDICINE [address] [place] [address] Shwetha Collado RN [address] [place] [address] 05/31/2025 8:00 AM EST Office Visit [facility] ADULT DENTAL [address] [place] [address] Catherine Antonio [address] [place] [address] documented as of this encounter Visit Diagnoses Not on filedocumented in this encounter Care Teams Lumber Trimmer Relationship Specialty Start Date End Date Agustin Marrero MD [address] [place] [address] PCP - General Internal Medicine 01/25/14 [facility] 06/13/16 documented as of this encounter
--- OUTSIDE RECORDS SUMMARY | 2024-12-13 08:37 | XMS_ITS | Encounter Summary ---
Author Organization [employer] Address [address] [place] [address] 7 [place] [address] Care Team Providers Care Welder Tack Name Role Phone Agustin Marrero MD Primary Care Provide r Reason for Visit * Reason Comments Med Refill Encounter Details Date Type Department Care Team (Late Contact Info) Description 09/04/[address] [facility] MEDICINE [address] [place], [place] [phone] Agustin Marrero MD [address] [place] [address] Social History Tobacco Use Types Packs/Day Years [...] Upcoming Encounters Date Type Department Care Team ([facility] Contact Info) Description 01/06/2025 11:30 AM EDT Clinical Support [facility] MEDICINE [address] [place] [address] Shwetha Collado, RN [address] [place] [address] 05/31/2025 8:00 AM EST Office Visit [facility] ADULT DENTAL [address] [place] [address] Matty Antonioaris [address] [place] [address] documented as of this encounter Visit Diagnoses Not on filedocumented in this encounter Care Teams Welder Tack Relationship Specialty Start Date End Date Agustin Marrero MD [address] [place] [address] PCP - General Internal Medicine 01/25/14 [facility] 06/13/16 documented as of this encounter
--- OUTSIDE RECORDS SUMMARY | 2024-12-13 08:37 | XMS_ITS | Encounter Summary ---
Author Organization [employer] Address [address] [place] [address] 7 [place] [address] Care Team Providers Care Chicken Dresser Name Role Phone Agustin Marrero MD Primary Care Provide r Reason for Visit * Reason Onset Date Comments Med Refill 04/14/2024 Encounter Details Date Type Department Care Team ([facility] st Contact Info) Description 04/14/2024 Telephone [facility] MEDICINE [address] [place], [place] [phone] Agustin Marrero MD [address] [place], [place] [phone] Med Refill Social History Tobacco Use Types [...] AM EDT documented as of this encounter Functional Status * Over the past 2 weeks, how often have you been bothered by any of the following problems? Question Answer Date of Assessment Author Patient Health Questionnaire-2 Score 0 10/18 9:25 AM EDT Taylor Vasquez MA * Little interest or pleasure in doing things Answer Date of Assessment Author Not at all 11/01/2024 9:25 AM EDT Hola Vasquez MA * Feeling down, depressed, or hopeless Answer Date of Assessment Author Not at all 11/01/2024 9:25 AM EDT Hola Vasquez MA * Trouble falling or staying asleep, or sleeping too much Answer Date of Assessment Author Not at all 11/01/2024 9:25 AM EDT Hola Vasquez MA * Feeling tired or having little energy Answer Date of Assessment Author Not at all 11/01/2024 9:25 AM EDT Hola Vasquez MA * Poor appetite or overeating Answer Date of Assessment Author Not at all 11/01/2024 9:25 AM EDT Hola Vasquez MA * Feeling bad about yourself - or that you are a failure or have let yourself or your family down Answer Date of Assessment Author Not at all 11/01/2024 9:25 AM EDT Hola Vasquez MA * Trouble concentrating on things, such as reading the newspaper or watching television Answer Date of Assessment Author Not at all 11/01/2024 9:25 AM EDT Hola Vasquez MA * Moving or speaking so slowly that other people could have noticed? Or the opposite - being so fidgety or restless that you have been moving around a lot more than usual. Answer Date of Assessment Author Not at all 11/01/2024 9:25 AM EDT Hola Vasquez MA * Thoughts that you would be better off or hurting yourself in some way Answer Date of Assessment Author Not at all 11/01/2024 9:25 AM EDT Hola Vasquez MA * Patient Health Questionnaire-9 Score Answer Date of Assessment Author 0 11/01/2024 9:25 AM EDT Hola Vasquez MA * Over the last 2 weeks, how often have you been bothered by any of the following problems? Question Answer Date of Assessment Author Feeling nervous, anxious, or on edge 0 10/18 2:46 PM EDT Taylor Vasquez MA Not being able to stop or co ntrol worrying 0 11/03/2024 2:46 PM EDT Taylor Vasquez MA Worrying too much about diff erent things 0 11/03/2024 2:46 PM EDT Taylor Vasquez MA Trouble relaxing 0 11/03/2024 2:46 PM EDT Taylor Ureña MA Being so restless that it is hard to sit still 0 11/03/2024 2:46 PM EDT Taylor Vasquez MA Becoming easily annoyed or irritable 0 10/18 2:46 PM EDT Taylor Vasquez MA Feeling afraid as if somethi ng awful might happen 0 11/03/2024 2:46 PM EDT Taylor Vasquez MA ANNY-7 Total Score 0 11/03/2024 2:46 PM EDT Taylor Vasquez MA documented as of this encounter Miscellaneous Notes * Telephone Encounter - Patti White LPN - 04/14/2024 12:00 PM EST Medication to soon for refill script sent to [facility] #[id number] on 03/24/24. * Telephone Encounter - Catherine Quiroz - 04/14/2024 11:49 AM EST TC from pt requesting medication refill. Medications needing refill : gabapentin (Neurontin) 300 MG capsule To be sent to: [facility]/pharmacy #[id number] [place], [place] - [address] [place] [address] documented in this encounter Plan of Treatment Upcoming Encounters Date Type Department Care Team (Late st Contact Info) Description 01/06/2025 11:30 AM EDT Clinical Support [facility] MEDICINE [address] [place] [address] Shwetha Collado RN [address] [place] [address] 05/31/2025 8:00 AM EST Office Visit [facility] ADULT DENTAL [address] [place] [address] Paco, Catherine [address] [place] [address] documented as of this encounter Visit Diagnoses Not on filedocumented in this encounter Additional Health Concerns Assessment Noted Time PHQ-9 Depression Total Score: 0 12/03/19 24 10:31 AM EDT documented as of this encounter Care Teams Chicken Dresser Relationship Specialty Start Date End Date Agustin Marrero MD [address] [place] [address] PCP - General Internal Medicine 01/25/14 [facility] 06/13/16 documented as of this encounter
== END 2024-12-13 09:05 | disposition home or self-care (01) ==
LOC: HO.ENCR 08:25
PROVIDERS: PCP Internal Medicine; Visit Provider Internal Medicine Endocrinology, Diabetes & Metabolism
DX: N62 Hypertrophy of breast (principal)
CPT/HCPCS: 99204

== ENCOUNTER → 2024-12-13 08:24 | Outpatient (BNVA) | payer OTHER, SELFPAY | PROVIDERS: PCP Internal Medicine; Visit Provider Internal Medicine Endocrinology, Diabetes & Metabolism | DX: N62 Hypertrophy of breast (principal); E11.8 Type 2 diabetes mellitus with unspecified complications; Z79.4 Long term (current) use of insulin | CPT/HCPCS: 99202 ==

== ENCOUNTER 2024-12-13 09:09 | Outpatient (REF) | payer OTHER, SELFPAY ==
[2024-12-13 11:56] LABS: Ferritin 127 ng/mL (20-250)
== END 2024-12-13 09:10 | disposition home or self-care (01) ==
LOC: HO.10HDL 09:09
PROVIDERS: Visit Provider Internal Medicine Endocrinology, Diabetes & Metabolism
DX: N62 Hypertrophy of breast (principal)
CPT/HCPCS: 36415; 82728; 84702

== ENCOUNTER 2024-12-21 06:27 | Outpatient (REF) | payer OTHER, SELFPAY ==
--- OUTSIDE RECORDS SUMMARY | 2024-05-26 06:15 | XMS_ITS ---
Author Organization [facility] Reji bill [place] Address [address] [facility] [place] [address] Care Team Providers Care Compliance Mgr Name Role Phone Nura Connelly MD, Agustin Primary Care Provide r Unavailable Sun Jj Unavailable [phone] Yovanny Long Unavailable [phone] REASON FOR VISIT last visit pcp 12/31/23, [...] Orally Once a day Active Vitamin D3 051069 UNIT/GM as directed Active Losartan Potassium 25 [...] Encounter Location Date [facility] [facility] [place] [address] 05/26/2024 Yovanny Long Onychomycosis B35.1 ; Pain [...] Up: 2 Months, Reason: Provider Name:Sun kenney, 01/12/2025 10:30:00 AM, [address] [facility], [place], [address], Procedure Notes * Category Sub-Category Detail Notes [...] use of a nail nipper and/or dremel-type hardboard grinder, to a more viable healthy nail [...] to maintain effectiveness in symptomatic relief - 46751 Progress Notes * Edward JONDOB:[birth year] (59 yo M)Acc No.[id number]:05/26/2024 Progress Note Patient: Edward WINTER Provider: Kishan Long D.P.M. :1965 A ge:59 Y S ex:Male Date:05/26/2024 Address:[address] [place], [place] [id number] Pcp:Agustin Connelly MD Subjective: * Chief Complaints: [...] enies. C ardiovascular: Pacemaker d enies. M NETWORK SUPPORT d enies. W PW d enies. C [...] as directed Orally , Taking Vitamin D3 296647 UNIT/GM Powder as directed , Taking Losartan [...] use of a nail nipper and/or dremel-type hardboard grinder, to a more viable healthy nail [...] to maintain effectiveness in symptomatic relief - 50333. * Procedure Codes: 1 1721 DEBRIDE NAIL, [...] 0 05/26/2024 Generated for Francisco reagan/Eloina/Samantha on: 0 12/21/2024 06:30 AM EDT History and Physical Notes * Examination Category [...]
--- OUTSIDE RECORDS SUMMARY | 2024-08-29 07:00 | XMS_ITS ---
Author Organization [facility] Address [address] [facility] [place] [address] Care Team Providers Care Media Coordinator Name Role Phone Nura Connelly MD, Agustin Primary Care Provide r Unavailable Sun Jj Unavailable [phone] Encounters Encounter Location Date Provider Diagnosis [address] [address] 08/29/2024 Sun Jj Plan Of Treatment Next Appt Details Provider Name:Sun kenney, 01/12/2025 10:30:00 AM, [address] [place] [address], [place], [address], Progress Notes * Edward JONDOB:[birth year] (59 yo M)Acc No.[id number]:08/29/2024 Progress Note Patient: Edward WINTER Provider: Hola Jj DPM :1965 A ge:59 Y S ex:Male Date:08/29/2024 Address:[address] [place] [address] [address], [place] Pcp:Agustin Connelly MD Subjective: * Chief Complaints: [...] DPM Date: 0 08/29/2024 Generated for Francisco reagan/Eloina/Jayitting on: 0 12/21/2024 06:31 AM EDT
--- OUTSIDE RECORDS SUMMARY | 2024-12-21 06:30 | XMS_ITS | Encounter Summary ---
Author Organization [email or web address] Address [address] [place] [address] 7 [place] [address] Care Team Providers Care Second Mate Name Role Phone Agustin Marrero MD Primary Care Provide r Reason for Visit * Reason Onset Date Comments fyi 12/13/2024 Encounter Details Date Type Department Care Team ([facility] st Contact Info) Description 12/13/2024 Telephone [facility] MEDICINE [address] [place], [place] [phone] Agustin Marrero MD [address] [place], [place] [phone] fyi Social History Tobacco Use Types Packs/Day [...] encounter Miscellaneous Notes * Telephone Encounter - Janee Sainz RN - 12/13/2024 10:16 AM EDT Per chart review, pt seen by Endocrinology today at 8am. BP of 102/62 recorded. Call to Jessica DARDEN with [facility] at [phone], reports BP of 164/105 , pt had not yet taken any BP meds. No sx. Pt is only seen once a week. Pt does check BP intermittently. Pt is only taking losartan PRN, had been held. Pt has bottle. [facility] does pre-fill med box for patient, but this med is not part of that med. Call returned to Edward Fonseca to triage below at [phone]. Reports took losartan after visiting nurse advised pt to take. Reports at Endocrinology visit decreased to 102/62. Per pt states does occasionally have elevated BP readings in the morning. Confirms using Losartan PRN for high BP readings. Pt advised that per [facility] note from 11/01/24, pt was no longer on losartan. Pt advised that if having continuous elevated BP should contact office to set up Nurse Visit for BP check. Pt denies any current sx. Advised pt will send to PCP as FYI and to advise [place] Team Primary care team nurses of plan of care regarding BP management. Protocol Used: Blood Pressure - High (Adult) Protocol-Based Disposition: See in Office or Video Visit within 3 Days Override (Final) Disposition: Discuss with PCP and Callback by Nurse Today Override Reason: Desired specific provider Video visit offer not recorded Positive Triage Question: * Systolic BP >= 160 OR Diastolic >= 100 * All higher-acuity triage questions were negative Care Advice Discussed: * High Blood Pressure * High Blood Pressure - Lifestyle Changes * How to Check Your Blood Pressure? * Reasons To Call Back - Headache, blurred vision, difficulty talking, or difficulty walking occurs - Chest pain or difficulty breathing occurs - You become worse * Telephone Encounter - Jon Chan - 12/13/2024 8:16 AM EDT Tc from Jessica at [facility] called to inform that pt had a elevated diastolic bp , 164/105. Pt denies any cardiac symptoms. Contact Jessica at [phone] documented in this encounter Plan of Treatment Upcoming Encounters Date Type Department Care Team (Late st Contact Info) Description 01/06/2025 11:30 AM EDT Clinical Support [facility] MEDICINE [address] [place] [address] Shwetha Collado RN [address] [place] [address] 02/23/2025 10:00 AM EST Office Visit [facility] MEDICINE [address] [place] [address] Agustin Marrero MD [address] [place] [address] 05/31/2025 8:00 AM EST Office Visit [facility] ADULT DENTAL [address] [place] [address] Catherine Antonio [address] [place] [address] documented as of this encounter Visit Diagnoses Not on filedocumented in this encounter Additional Health Concerns Assessment Noted Time PHQ-9 Depression Total Score: 0 07/15/20 25 9:25 AM EDT documented as of this encounter Care Teams Second Mate Relationship Specialty Start Date End Date Agustin Marrero MD [address] [place] [address] PCP - General Internal Medicine 01/25/14 [facility] 06/13/16 documented as of this encounter
--- OUTSIDE RECORDS SUMMARY | 2024-12-21 06:30 | XMS_ITS | Encounter Summary ---
Author Organization [employer] Address [address] [place] [address] 7t [place] [address] Care Team Providers Care Java Systems Analyst Name Role Phone Agustin Marrero MD Primary Care Provide r Reason for Visit * Reason Comments Med Refill Encounter Details Date Type Department Care Team ([facility] st Contact Info) Description 11/02/2023 Refill [facility] MEDICINE [address] [place], [place] [phone] Lela Wu MD [address] [place], [place] [phone] Primary insomnia Social History Tobacco Use Types [...] Description 01/06/2025 11:30 AM EDT Clinical Support [facility] MEDICINE [address] [place] [address] Shwetha Collado RN 505 [place] [address] 02/23/2025 10:00 AM EST Office Visit [facility] MEDICINE [address] [place] [address] Agustin Marrero MD [address] [place] [address] 05/31/2025 8:00 AM EST Office Visit [facility] ADULT DENTAL [address] [place] [address] Catherine Antonio [address] [place] [address] documented as of this encounter Visit Diagnoses Diagnosis Primary insomnia Persistent disorder of initiating or maintaining sleep documented in this encounter Additional Health Concerns Assessment Noted Time PHQ-9 Depression Total Score: 5 06/16/19 24 9:35 AM EST documented as of this encounter Care Teams Java Systems Analyst Relationship Specialty Start Date End Date Agustin Marrero MD [address] [place] [address] PCP - General Internal Medicine 01/25/14 [facility] 06/13/16 documented as of this encounter
--- OUTSIDE RECORDS SUMMARY | 2024-12-21 06:30 | XMS_ITS | Encounter Summary ---
Author Organization [employer] Address [address] [place] [address] 7t [place] [address] Care Team Providers Care Assistive Technology Specialist Name Role Phone Agustin Marrero MD Primary Care Provide r Reason for Visit * Reason Comments Med Refill Encounter Details Date Type Department Care Team ([facility] st Contact Info) Description 12/24/2023 Refill [facility] MEDICINE [address] [place], [place] [phone] Agustin Marrero MD [address] [place], [place] [phone] Chronic midline low back pain without sciatica [...] Description 01/06/2025 11:30 AM EDT Clinical Support [facility] MEDICINE [address] [place] [address] Shwetha Collado, KATALINA [address] [place] [address] 02/23/2025 10:00 AM EST Office Visit [facility] MEDICINE [address] [place] [address] Agustin Marrero MD [address] [place] [address] 05/31/2025 8:00 AM EST Office Visit [facility] ADULT DENTAL [address] [place] [address] Catherine Antonio [address] [place] [address] documented as of this encounter Visit Diagnoses Diagnosis Chronic midline low back pain without sciatica documented in this encounter Additional Health Concerns Assessment Noted Time PHQ-9 Depression Total Score: 0 12/03/19 24 10:31 AM EDT documented as of this encounter Care Teams Assistive Technology Specialist Relationship Specialty Start Date End Date Agustin Marrero MD [address] [place] [address] PCP - General Internal Medicine 01/25/14 [facility] 06/13/16 documented as of this encounter
--- OUTSIDE RECORDS SUMMARY | 2024-12-21 06:30 | XMS_ITS | Encounter Summary ---
Author Organization [employer] Address [address] [place] [address] 7t [place] [address] Care Team Providers Care Elevator Attendant Name Role Phone Agustin Marrero MD Primary Care Provide r Encounter Details Date Type Department Care Team ([facility] st Contact Info) Description 12/24/2023 Telephone [facility] MEDICINE [address] [place], [place] [phone] Agustin Marrero MD [address] [place], [place] [phone] Social History Tobacco Use Types Packs/Day Years [...] EDT Clinical Support [facility] MEDICINE [address] [place] [address] Shwetha Collado, KATALINA 505 [place] [address] 02/23/2025 10:00 AM EST Office Visit [facility] MEDICINE [address] [place] [address] Agustin Marrero MD [address] [place] [address] 05/31/2025 8:00 AM EST Office Visit [facility] ADULT DENTAL [address] [place] [address] Catherine Antonio [address] [place] [address] documented as of this encounter Visit Diagnoses Not on filedocumented in this encounter Additional Health Concerns Assessment Noted Time PHQ-9 Depression Total Score: 0 12/03/19 24 10:31 AM EDT documented as of this encounter Care Teams Elevator Attendant Relationship Specialty Start Date End Date Agustin Marrero MD [address] [place] [address] PCP - General Internal Medicine 01/25/14 [facility] 06/13/16 documented as of this encounter
--- OUTSIDE RECORDS SUMMARY | 2024-12-21 06:30 | XMS_ITS | Clinical Summary ---
Author Organization [employer] Address [address] [place] [address] 7[address] [place] [address] Care Team Providers Care Dental Sales Representative Name Role Phone Agustin Marrero MD Primary Care Provide r Allergies No known active allergies Medications Blood Glucose Monitoring Suppl ([employer] [place]) w/Device kit TEST 1 TIMES BY INTRADERMAL ROUTE EVERY DAY Active Continuous Blood Gluc Clerical Dentist Assistant ([employer] [place] 2 [place]) device Active ferrous sulfate 325 (65 Fe) [...] long-term current use of insulin ([facility]) USE 1 EACH DIRECTED THREE TIMES [...] long-term current use of insulin ([facility]) USE DIRECTED EVERY 14 DAYS 2 [...] stripIndications: Type 2 diabetes mellitus without complications ([facility]) USE TO TEST BLOOD SUGAR THREE TIMES DAILY 300 strip 3 025 Active cholecalciferol (Vitamin D3) 25 MCG (1000 UT) tabletIndications :Type 2 diabetes mellitus without complication, with long-term current use of insulin ([facility]) TOME 1 TABLETA POR VIA ORAL TODOS LOS QUINONES 90 tablet 1 025 Active gabapentin (Neurontin) 300 MG capsuleIndication s:Chronic midline low back pain without sciatica TAKE 1 CAPSULE BY MOUTH TWICE A DAY 60 capsule 025 Active NovoLOG FLEXPEN 100 UNIT/ML penIndications:Ty pe 2 diabetes mellitus without complication, with long-term current use of insulin ([facility]) Use Insulin as per sliding scale [...] midline low back pain without sciatica Last BENZENE WORKER Agreement: 09/01/23 Normal oral exam 12/17/2023 Class [...] for mildly dilated CBD. ERCP 11/21/2022 at [facility] showed single severe biliary stricture [...] CBD. 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 The stricture was post-surgical. A biliary sphinterotomy was performed. A temporary stent was placed in the CBP They recommended to repeat ERCP in 3 months to remove stent. Pt is already scheduled for 02/20/2023 for ENDOSCOPIC RETROGRADE CHOLANGIOPANCREATOGRAPHY WITH REMOVAL OF FOREIGN BODY(S)/STENT(S)/PANCREATIC DUCT(S) WITH POSSIBLE MODERATE SEDATION [78828 (CPT )] Partial edentulism 01/14/2023 Hospital discharge [...] CBD. Pt is s/p ERCP 11/21/2022 at [facility] Impression: A single severe biliary [...] local wound injections. He was seen by business control specialist at [facility] who discussed that he needed [...] local wound injections. He was seen by business control specialist at [facility] who discussed that he needed [...] was refer to the Pain Clinic at [facility] he has an appointment for [...] >400 20 units He was discharged from [facility] diabetes clinic due to non [...] diet Previous visit pt was referred to Feed Elevator Worker and DE Plan: continue current regimen Pt [...] >400 20 units He was discharged from [facility] diabetes clinic due to non [...] diet Previous visit pt was referred to Feed Elevator Worker and DE Plan: continue current regimen Pt [...] >400 20 units He was discharged from [facility] diabetes clinic due to non [...] diet Previous visit pt was referred to Feed Elevator Worker and DE Plan: continue current regimen Pt [...] >400 20 units He was discharged from [facility] diabetes clinic due to non compliance. He isunder the care of [facility] Endocrinology given that he is a liver transplant patient, last seen 04/21/2023. Hgb A1c 06/16/2023: 7.1 Eye exam ordered previous visit Microalbumin 11/01/2020 was 43 Foot check risk of zero Pt advised to: adhere to diabetic diet Previous visit pt was referred to Feed Elevator Worker and DE Plan: continue current regimen Pt [...] >400 20 units He was discharged from [facility] diabetes clinic due to non [...] diet Previous visit pt was referred to Feed Elevator Worker and DE Plan: continue current regimen Pt [...] >400 20 units He was discharged from [facility] diabetes [facility] due to non compliance. He is supposed [...] diet Previous visit pt was referred to Feed Elevator Worker and DE Plan: continue current regimen check [...] >400 20 units He was discharged from [facility] diabetes clinic due to non [...] diet Previous visit pt was referred to Feed Elevator Worker and DE Plan: continue current regimen check [...] >400 20 units He was discharged from [facility] diabetes clinic due to non [...] diet Previous visit pt was referred to Feed Elevator Worker and DE Plan: continue current regimen check [...] the care of the liver clinic at [facility], last seen 08/01/2024 Dr Richardson Assessment & Plan (07/05/2024 10:05 AM EDT): Under the care of the liver clinic at [facility] Assessment & Plan (06/16/2023 9:29 AM EST): Under the care of the liver clinic at [facility] Assessment & Plan (04/22/2022 8:26 [...] Encounters Date Type Department Care Team Description 12/20/2024 Refill [facility] [address] [place] [address] Agustin Marrero MD Chronic midline low back pain without sciatica 12/16/2024 Telephone [facility] [address] [place] [address] Agustin Marrero MD Appointment 12/13/2024 Telephone [facility] [address] [place] [address] Agustin Marrero MD fyi 12/10/2024 Refill [facility] [address] [place] [address] Agustin Marrero MD 12/05/2024 Refill [facility] [address] [place] [address] Agustin Marrero MD Primary insomnia; Chronic midline low back pain without sciatica 12/05/2024 Refill [facility] [address] [place] [address] Agustin Marrero MD Chronic midline low back pain without sciatica 11/18/2024 Travel 11/18/2024 Telephone [facility] [address] [place] [address] Shwetha Collado, RN BENZENE WORKER 11/17/2024 Results Follow-Up [facility] [address] [place] [address], [place] [address] Agustin Marrero MD POCT Glucose, POCT HGB A1C, TSH with Reflex to Free T4, Additional followed-up results: 6 11/16/2024 10:00 AM EDT Office Visit [facility] [address] [place] [address] Paco Catherine Missing teeth, acquired (Primary Dx); Dental calculus; Dental plaque; Generalized gingival recession; Chronic periodontal disease 11/01/2024 9:15 AM EDT Office Visit [address] [address] Agustin Marrero MD Type 2 diabetes mellitus without complication, with long-term current use of insulin ([facility]) (Primary Dx); Chronic midline low back pain without sciatica; Primary insomnia; Tubular adenoma; S/P liver transplant ([facility]); Essential hypertension; Pure hypercholesterolemi a; Gynecomastia 11/01/2024 Travel 10/31/2024 Telephone [facility] [address] [place] [address] Agustin Marrero MD chart prep 10/25/[address] [address] Agustin Marrero MD Durable Medical Equipment 10/25/2024 Patient Outreach [facility] [address] [place] [address] Agustin Marrero MD Pre-visit Planning ([facility] unable to complete) 10/16/2024 Refill [facility] [address] [place] [address] Agustin Marrero MD Chronic midline low back pain without sciatica 10/07/2024 Travel 10/07/2024 Telephone [facility] [address] [place] [address] Shwetha Collado, RN BENZENE WORKER 10/07/2024 Telephone [facility] [address] [place] [address] Shwetha Collado RN 10/04/2024 Telephone [facility] [address] [place] [address] Agustin Marrero MD Med Refill 10/04/2024 Telephone [facility] [address] [place] [address] Agustin Marrero MD Med Refill 10/04/2024 Refill [facility] [address] [place] [address] Agustin Marrero MD Chronic midline low back pain without sciatica; Primary insomnia 09/24/2024 Refill [facility] [address] [place] [address] Agustin Marrero MD Type 2 diabetes mellitus without complication, with long-term current use of insulin ([facility]) from Last 3 Months Immunizations Immunization Administration [...] Description 01/06/2025 11:30 AM EDT Clinical Support [facility] [address] [place] [address] Shwetha Collado, KATALINA [address] [place] [address] 02/23/2025 10:00 AM EST Office Visit [facility] [address] [place] [address] Agustin Marrero MD [address] [place] [address] 05/31/2025 8:00 AM EST Office Visit [facility] [address] [place] [address] Catherine Antonio [address] [place] [address] Health Maintenance Due Date Last Done Comments CT Colonography 1964 FIT DNA/Cologuard 1964 FIT 1964 FOBT 1964 HIV Screening 1964 Sigmoidoscopy 1964 Diabetes: Foot Exam 01/03/1974 Hepatitis C Screening 01/03/1982 DTaP/Tdap/Td Vaccines (2 - Td or Tdap) 09/16/2023 09/15/2013, 10/26/2006 RSV Patients and Patients Aged 60 years or older (1 - Risk 60-74 years 1-dose series) 2024 Dental X-Ray: Full Mouth 06/19/2024 06/18/2021 Colonoscopy 06/28/2024 06/28/2021 Colorectal Cancer Screening 06/28/2024 Eye Exam 09/22/2024 09/22/2022, 08/2022, 09/22/2022, Additional history exists Dental X-Ray: Bitewings 10/13/2024 10/13/2023, 05/15 Dental Oral Exam 11/15/2024 05/17/2024, , 05/15/2022 COVID-19 Vaccine ( season) 2024 05/06/2022, 11/25/2021, 03/25/2021, Additional history exists Diabetes: Hemoglobin A1C 02/01/2025 [...] Vaccines Completed 09/11/2022, 07/09/2022 Influenza Vaccine Completed 12/14/2024, , 02/12/2023, Additional history exists HIB Vaccines Aged Out [...] long-term current use of insulin ([facility]) POCT GLUCOSE Routine 11/01/2024 9:33 AM EDT Type 2 diabetes mellitus without complication, with long-term current use of insulin ([facility]) PERIODIC ORAL EVALUATION - ESTABLISHED PATIENT Routine 05/17/2024 10:00 AM EST ALBUMIN, RANDOM URINE W/CREATININE Routine 04/06/2024 8:10 AM EST Type 2 diabetes mellitus without complication, with long-term current use of insulin ([facility]) LIPID PANEL, STANDARD Routine 04/06/2024 8:10 AM EST Type 2 diabetes mellitus without complication, with long-term current use of insulin ([facility]) BITEWINGS - 4 RADIOGRAPHIC IMAGES Routine 10/13/2023 11:00 AM EDT HM COLONOSCOPY Routine 06/28/2021 from Last 3 Months or Most Recently Relevant to Health Maintenance Results * Prolactin, Dilution Study (11/01/2024 10:10 AM EDT) Prolactin, Undiluted 5.4 2.0 - 18.0 ng/mL [facility] Prolactin, Diluted SEE NOTE 2.0 - 18.0 ng/mL [facility] Comment:Result confirmed by 1:100 dilution. No high dosehook effect detected.Prolactin dilution studies are done to determine ifthere is a high-dose hook effect (i.e. a non-linearassay response due to a very high concentration ofProlactin). This is reported to occur at Prolactinconcentrations at or above 30,000 ng/mL.This test is not recommended for identifyingmacroprolactin. The [facility], Prolactin, Total and Monomeric is therecommended test (Order code [id number]).THIS TEST WAS PERFORMED AT:[facility] [address] [id number] MONTES MD Blood Venous blood specimen / Unknown 11/01/2024 10:10 AM EDT 11/01/2024 11:06 AM EDT Agustin Connelly MD LAB BLOOD ORDERABLES Final Result Performing Organization Address City/[facility]/ZIP Co de Phone Number [facility] [address] [place] [phone] * TSH with Reflex to Free T4 (11/01/2024 10:10 AM EDT) TSH reflex Free T4 1.17 0.32 - 4.0 uIU/mL [facility] Blood Venous blood specimen / Unknown 11/01/2024 10:10 AM EDT 11/01/2024 11:06 AM EDT Agustin Connelly MD LAB BLOOD ORDERABLES Final Result Performing Organization Address [facility] Co de Phone Number [facility] [address] [place] [phone] * Estradiol (11/01/2024 10:10 AM EDT) Estradiol Ultra Sensitive 21 < OR = 29 pg/mL [facility] Comment:This test was develo ped and its analytical performancecharacteristics have been determined by [facility] [employer].It has not been cleared or approved by the FDA. This assayhas been validated pursuant to the CLIA regulations and isused for clinical purposes.THIS TEST WAS PERFORMED AT:[facility]/[employer]atero [id number] EMILY SALDAÑA [id number] PHILIPPE MD,PHD,TR Blood Venous blood specimen / Unknown 11/01/2024 10:10 AM EDT 11/01/2024 11:06 AM EDT Agustin Connelly MD LAB BLOOD ORDERABLES Final Result Performing Organization Address City/[facility]/ZIP Co de Phone Number [facility] [address] [place] [address] [phone] * (ABNORMAL) Testosterone, Free (Dialysis) And Total, MS (11/01/2024 10:10 AM EDT) Testosterone, Total 212(A) 250 - 1100 ng/dL [facility] Comment:For additional infor mation, please refer [email or web address].[employer]/faq/[email or web address](This link is being provided for informational/educational purposes only.)This test was developed and its analytical performancecharacteristics have been determined by [facility] [place]. It hasnot been cleared or approved by the U.S. Food and DrugAdministration. This assay has been validated pursuantto the CLIA regulations and is used for clinicalpurposes. Testosterone, Free 25.0(A) 35.0 - 155.0 pg/mL [facility] Comment:This test was develo ped and its analytical performancecharacteristics have been determined by [employer] [place], [place]. It hasnot been cleared or approved by the U.S. Food and DrugAdministration. This assay has been validated pursuantto the CLIA regulations and is used for clinicalpurposes.THIS TEST WAS PERFORMED AT:[facility]/RAMIREZ [id number] [place] [address]NXOHWGERITU CLAY MD,PHD Blood Venous blood specimen / Unknown 11/01/2024 10:10 AM EDT 11/01/2024 11:06 AM EDT Agustin Connelly MD LAB BLOOD ORDERABLES Final Result Performing Organization Address City/[facility]/ZIP Co de Phone Number [facility] [address] [place] [address] [phone] * (ABNORMAL) LH (11/01/2024 10:10 AM EDT) Lutenizing Hormone 23.5(A) 1.6 - 15.2 mIU/mL [facility] Comment:THIS TEST WAS PERFOR MED AT:[facility] [address] [id number] MONTES MD Blood Venous blood specimen / Unknown 11/01/2024 10:10 AM EDT 11/01/2024 11:06 AM EDT Agustin Connelly MD LAB BLOOD ORDERABLES Final Result Performing Organization Address [facility] Co de Phone Number [facility] [address] [place] [phone] * (ABNORMAL) FSH (11/01/2024 10:10 AM EDT) Pathologist [facility] Follicle Stimulating Hormone 42.0(A) 1.4 - 12.8 mIU/mL [facility] Comment:THIS TEST WAS PERFOR MED AT:[facility] [address] [id number] MONTES MD Blood Venous blood specimen / Unknown 11/01/2024 10:10 AM EDT 11/01/2024 11:06 AM EDT Agustin Connelly MD LAB BLOOD ORDERABLES Final Result Performing Organization Address [facility] Co de Phone Number [facility] [address] [place] [phone] * (ABNORMAL) Comprehensive Metabolic Panel (11/01/2024 10:10 AM EDT) Pathologist [facility] Sodium 141 135 - 145 mmol/L [facility] Potassium 4.8 3.3 - 5.1 mmol/L [facility] Chloride 106 96 - 108 mmol/L [facility] Carbon Dioxide 27 22 - 29 mmol/L [facility] Anion Gap 13 12 - 20 [facility] Urea Nitrogen (BUN) 21(H) 9 - 16 mg/dL [facility] Creatinine, Serum 1.28 0.5 - 1.4 mg/dL [facility] Estimated Glomerular Filt Rate 57 [facility] Comment:Chronic Kidney Disea se: Estimated GFR < 60 mL/min/1.80h5Iogtxr Kidney Disease: Estimated GFR < 15 mL/min/1.73m2 Glucose 183(H) 60 - 115 mg/dL [facility] Calcium 9.5 8.4 - 10.2 mg/dL [facility] Bilirubin, Total 0.5 0.0 - 1.0 mg/dL [facility] Aspartate Amino Transferase 26 5 - 37 U/L [facility] Alanine Aminotransferase 40 0 - 40 U/L [facility] Total Protein 6.9 6.5 - 8.0 g/dL [facility] Albumin Level 4.6 3.5 - 5.0 g/dL [facility] Alkaline Phosphatase 112 39 - 117 U/L [facility] Blood Venous blood specimen / Unknown 11/01/2024 10:10 AM EDT 11/01/2024 11:06 AM EDT Agustin Connelly MD LAB BLOOD ORDERABLES Final Result [facility] [address] [place] [phone] * (ABNORMAL) POCT HGB A1C (11/01/2024 9:41 AM EDT) Hemoglobin A1C 7.3(A) 4.0 - 5.7 % QC Media Lot # [id number] Lot# Expiration Date Blood 11/01/2024 9:41 AM EDT us Agustin Connelly MD POINT OF CARE TEST EN TER/EDIT ORDERABLES Final Result * (ABNORMAL) POCT Glucose (11/01/2024 9:33 AM EDT) Glucose Blood, POC 214(A) 60 - 200 mg/dL [employer] Lot # [id number] Lot# Expiration Date Blood Capillary blood specimen / Unknown 11/01/2024 9:33 AM EDT us Agustin Connelly MD POINT OF CARE TEST EN TER/EDIT ORDERABLES Final Result * (ABNORMAL) Albumin, Random Urine W/Creatinine (04/06/2024 8:10 AM EST) Creatinine, Urine 216.22 mg/dL [facility] Microalbumin Urine 68.0 mg/L [facility] Microalbum Creatinine Ratio Ur 31.4(H) <30 ug/mg cr [facility] Comment:Albumin/Creatinine R atio Reference Ranges: Normal: < 30 ug/mg creatinine Microalbuminuria: 30 - 300 ug/mg creatinineClinical Albuminuria: > 300 ug/mg creatinine Urine (Urine, Random) 04/06/2024 8:10 AM EST 04/06/2024 11:40 AM EST us Agustin Connelly MD LAB URINE ORDERABLES Final Result [facility] [address] [place] [phone] * (ABNORMAL) Lipid Panel, Standard (04/06/2024 8:10 AM EST) Triglycerides 109 <150 mg/dL [facility] Comment:Desirable Triglyceri de: less than 150 mg/dLBorderline High Triglyceride 150-199 mg/dLHigh Triglyceride: 200-499 mg/dLVery High Triglyceride: greater than or equal to 5OO mg/dL Cholesterol 177 <200 mg/dL [facility] Comment:Desirable Cholestero l: less than 200 mg/dLBorderline High Cholesterol: 200-239 mg/dLHigh Cholesterol: greater than 239 mg/dL LDL Cholesterol Calculated 115(H) <100 mg/dL [facility] Comment:Desirable LDL: less than 100 mg/dLNear Optimal/Above Optimal LDL: 110- 129 mg/dLBorderline High LDL: 130-159 mg/dLHigh LDL: 160-189 mg/dLVery High LDL: greater than or equal to 190 mg/dL HDL Cholesterol 41 >40 mg/dL [facility] Comment:Desirable HDL: great er than 40 mg/dL Note: This HDL assay may give artificially low results in patients with liver disease. Blood Venous blood specimen / Unknown 04/06/2024 8:10 AM EST 04/06/2024 11:51 AM EST Agustin Connelly MD LAB BLOOD ORDERABLES Final Result [facility] [address] [place] [address] [phone] * Colonoscopy (06/28/2021) Colonoscopy Normal Normal 06/28/2021 Narrative Shanel Bo - 06/28/2021 9:58 AM EST Recommended 3 year follow up per GI notes ( [facility] ) Historical Provider HEALTH MAINTENANCE Edited Result - Final from Last 3 Months or Most Recently Relevant to Health Maintenance Insurance [address] [place] [address] [facility] ONE CARE < 64 [place]IN HEAD [id number] 296 [facility] 2 Dean Newman [place] DENTAL - [facility] 2 Dean Newman [place] Care Teams Dental Sales Representative Relationship Specialty Start Date End Date Agustin Marrero MD [address] [place] [address] [place] [address] PCP - General Internal Medicine 01/25/14 [facility] 06/13/16
--- OUTSIDE RECORDS SUMMARY | 2024-12-21 06:30 | XMS_ITS | Encounter Summary ---
Author Organization [employer] Address [address] [place] [address] 7[address] [place] [address] Care Team Providers Care Electric Blanket Wirer Name Role Phone Agustin Marrero MD Primary Care Provide r Reason for Visit * Reason Comments Med Refill Encounter Details Date Type Department Care Team ([facility] st Contact Info) Description 2024 Refill [facility] [address] [place], [place] [phone] Agustin Marrero MD [address] [place] [address] Social History Tobacco Use Types Packs/Day Years [...] 11:30 AM EDT Clinical Support [facility] [address] [place] [address] Shwetha Collado RN [address] [place] [address] 02/23/2025 10:00 AM EST Office Visit [facility] [address] [place] [phone] Agustin Marrero MD [address] [place] [address] 05/31/2025 8:00 AM EST Office Visit [facility] ADULT DENTAL [address] [place] [phone] Catherine Antonio [address] [place] [address] documented as of this encounter Visit Diagnoses Not on filedocumented in this encounter Additional Health Concerns Assessment Noted Time PHQ-9 Depression Total Score: 0 12/03/19 24 10:31 AM EDT documented as of this encounter Care Teams Electric Blanket Wirer Relationship Specialty Start Date End Date Agustin Marrero MD [address] [place] [phone] PCP - General Internal Medicine 01/25/14 [facility] 06/13/16 documented as of this encounter
--- OUTSIDE RECORDS SUMMARY | 2024-12-21 06:30 | XMS_ITS | Encounter Summary ---
Author Organization [employer] Address [address] [place] [address] 7 [place] [address] Care Team Providers Care Egg Processing Supervisor Name Role Phone Agustin Marrero MD Primary Care Provide r Reason for Visit * Reason Onset Date Comments Med Refill 03/01/2024 Encounter Details Date Type Department Care Team ([facility] st Contact Info) Description 03/01/2024 Telephone [facility] MED[facility]INE [address] [place], [place] [phone] Agustin Marrero MD [address] [place], [place] [phone] Med Refill Social History Tobacco Use Types [...] 03/01/2024 2:24 PM EST Received fax from [facility] requesting script clarification need directions. * Telephone Encounter - Manjeet Mclaughlin - 03/01/2024 2:21 PM EST TC from pt requesting medication refill. Medications needing refill : traMADol (Ultram) 50 MG table To be sent to: [facility]/pharmacy #[id number] documented in this encounter Plan of Treatment Upcoming Encounters Date Type Department Care Team (Late st Contact Info) Description 01/06/2025 11:30 AM EDT Clinical Support [facility] [address] [place] [phone] Shwetha Collado RN [address] [place] [address] 02/23/2025 10:00 AM EST Office Visit [facility] [address] [place] [phone] Agustin Marrero MD [address] [place] [address] 05/31/2025 8:00 AM EST Office Visit [facility] ADULT DENTAL [address] [place] [address] Catherine Antonio [address] [place] [address] documented as of this encounter Visit Diagnoses Not on filedocumented in this encounter Additional Health Concerns Assessment Noted Time PHQ-9 Depression Total Score: 0 12/03/19 10:31 AM EDT documented as of this encounter Care Teams Egg Processing Supervisor Relationship Specialty Start Date End Date Agustin Marrero MD [address] [place] [address] PCP - General Internal Medicine 01/25/14 [facility] 06/13/16 documented as of this encounter
--- OUTSIDE RECORDS SUMMARY | 2024-12-21 06:30 | XMS_ITS | Encounter Summary ---
Author Organization [employer] Address [address] [place] [address] 7 [place] [address] Care Team Providers Care Environmental Services Lead Name Role Phone Agustin Marrero MD Primary Care Provide r Reason for Visit * Reason Onset Date Comments Med Refill 03/01/2024 Encounter Details Date Type Department Care Team ([facility] st Contact Info) Description 03/01/2024 Telephone [facility] MEDICINE [address] [place], [place] [phone] Agustin Marrero MD 230 [place], [place] [phone] Med Refill Social History Tobacco Use Types [...] 2:22 PM EST Medication was sent to [facility][id number] on 02/29/24. * Telephone Encounter - Manjeet Mclaughlin - 03/01/2024 2:17 PM EST TC from pt requesting medication refill. Medications needing refill : 1- zolpidem (Ambien) 10 MG tablet To be sent to: [facility]/pharmacy #[id number] documented in this encounter Plan of Treatment Upcoming Encounters Date Type Department Care Team (Late st Contact Info) Description 01/06/2025 11:30 AM EDT Clinical Support [facility] MEDICINE [address] [place] [address] Shwetha Collado RN [address] [place] [address] 02/23/2025 10:00 AM EST Office Visit [facility] MEDICINE [address] [place] [address] Agustin Marrero MD 230 [place] [address] 05/31/2025 8:00 AM EST Office Visit [facility] ADULT DENTAL [address] [place], [place] [phone] Catherine Antonio [address] [place], [place] [phone] documented as of this encounter Visit Diagnoses Not on filedocumented in this encounter Additional Health Concerns Assessment Noted Time PHQ-9 Depression Total Score: 0 12/03/19 10:31 AM EDT documented as of this encounter Care Teams Environmental Services Lead Relationship Specialty Start Date End Date Agustin Marrero MD 230 [place] [address] PCP - General Internal Medicine 01/25/14 [facility] 06/13/16 documented as of this encounter
--- OUTSIDE RECORDS SUMMARY | 2024-12-21 06:31 | XMS_ITS | Encounter Summary ---
Author Organization [employer] Address [address] [place] [address] 7t [place] [address] Care Team Providers Care Supervisor Television Chassis Repair Name Role Phone Agustin Marrero MD Primary Care Provide r Reason for Visit * Reason Comments Med Refill Encounter Details Date Type Department Care Team ([facility] st Contact Info) Description 10/20/2023 Refill [facility] MED & PEDS [address] [place], [place] [phone] Agustin Marrero MD [address] [place] [address] Chronic midline low back pain without sciatica [...] EDT Clinical Support [facility] MEDICINE [address] [place] [address] Shwetha Collado RN 505 [place] [address] 02/23/2025 10:00 AM EST Office Visit [facility] MEDICINE [address] [place] [phone] Agustin Marrero MD [address] [place] [address] 05/31/2025 8:00 AM EST Office Visit [facility] ADULT DENTAL [address] [place] [address] Catherine Antonio 230 [place] [address] documented as of this encounter Visit Diagnoses Diagnosis Chronic midline low back pain without sciatica documented in this encounter Additional Health Concerns Assessment Noted Time PHQ-9 Depression Total Score: 5 06/16/19 24 9:35 AM EST documented as of this encounter Care Teams Supervisor Television Chassis Repair Relationship Specialty Start Date End Date Agustin Marrero MD [address] [place] [address] PCP - General Internal Medicine 01/25/14 [facility] 06/13/16 documented as of this encounter
--- OUTSIDE RECORDS SUMMARY | 2024-12-21 06:31 | XMS_ITS | Encounter Summary ---
Author Organization [employer] Address [address] [place] [address] 7 [place] [address] Care Team Providers Care Drafter Structural Name Role Phone Agustin Marrero MD Primary Care Provide r Reason for Visit * Reason Onset Date Comments Med Refill 09/13/2024 Encounter Details Date Type Department Care Team ([facility] st Contact Info) Description 09/13/2024 Telephone [facility] MEDICINE [address] [place], [place] [phone] Agustin Marrero MD [address] [place], [place] [phone] Med Refill Social History Tobacco Use Types [...] 300 MG capsule To be sent to: [facility]/pharmacy #[address] [place] [address] documented in this encounter Plan of Treatment Upcoming Encounters Date Type Department Care Team (Late st Contact Info) Description 01/06/2025 11:30 AM EDT Clinical Support [facility] MEDICINE [address] [place] [address] Shwetha Collado RN [address] [place] [address] 02/23/2025 10:00 AM EST Office Visit [facility] MEDICINE [address] [place] [address] Agustin Marrero MD [address] [place] [address] 05/31/2025 8:00 AM EST Office Visit [facility] ADULT DENTAL [address] [place] [address] Catherine Antonio [address] [place] [address] documented as of this encounter Visit Diagnoses Not on filedocumented in this encounter Additional Health Concerns Assessment Noted Time PHQ-9 Depression Total Score: 0 12/03/19 10:31 AM EDT documented as of this encounter Care Teams Drafter Structural Relationship Specialty Start Date End Date Agustin Marrero MD 230 [place] [address] PCP - General Internal Medicine 01/25/14 [facility] 06/13/16 documented as of this encounter
--- OUTSIDE RECORDS SUMMARY | 2024-12-21 06:31 | XMS_ITS | Encounter Summary ---
Author Organization [employer] Address [address] [place] [address] 7 [place] [address] Care Team Providers Care Cafe Lead Name Role Phone Agustin Marrero MD Primary Care Provide r Reason for Visit * Reason Onset Date Comments Med Refill 09/05/2024 Encounter Details Date Type Department Care Team ([facility] st Contact Info) Description 09/05/2024 Telephone [facility] MEDICINE [address] [place], [place] [phone] Agustin Marrero MD [address] [place], [place] [phone] Med Refill Social History Tobacco Use Types [...] 50 MG tablet To be sent to: [facility]/pharmacy #[id number] [place] [address] documented in this encounter Plan of Treatment Upcoming Encounters Date Type Department Care Team (Late st Contact Info) Description 01/06/2025 11:30 AM EDT Clinical Support [facility] MEDICINE [address] [place] [address] Shwetha Collado RN 505 [place] [address] 02/23/2025 10:00 AM EST Office Visit [facility] MEDICINE [address] [place] [address] Agustin Marrero MD 230 [place] [address] 05/31/2025 8:00 AM EST Office Visit [facility] ADULT DENTAL [address] [place] [address] [place] [address] Catherine Antonio [address] [place] [address] documented as of this encounter Visit Diagnoses Not on filedocumented in this encounter Additional Health Concerns Assessment Noted Time PHQ-9 Depression Total Score: 0 12/03/19 24 10:31 AM EDT documented as of this encounter Care Teams Cafe Lead Relationship Specialty Start Date End Date Agustin Marrero MD 230 [place] [address] PCP - General Internal Medicine 01/25/14 [facility] 06/13/16 documented as of this encounter
--- OUTSIDE RECORDS SUMMARY | 2024-12-21 06:31 | XMS_ITS | Encounter Summary ---
Author Organization [employer] Address [address] [place] [address] 7t [place] [address] Care Team Providers Care Quality Controller Name Role Phone Agustin Marrero MD Primary Care Provide r Encounter Details Date Type Department Care Team ([facility] st Contact Info) Description 08/31/2024 Telephone [facility] MEDICINE [address] [place], [place] [phone] Agustin Marrero MD 230 [place], [place] [phone] Social History Tobacco Use Types Packs/Day Years [...] Miscellaneous Notes * Telephone Encounter - Xuan Mclaughlin Toñito - 08/31/2024 2:28 PM EDT TC from pt requesting medication refill. Medications needing refill : - traMADol (Ultram) 50 MG tablet To be sent to: [facility]/pharmacy #[id number] - MARILYN SARGENT - [address] [place] [address] documented in this encounter Plan of Treatment Upcoming Encounters Date Type Department Care Team (Late st Contact Info) Description 01/06/2025 11:30 AM EDT Clinical Support [facility] MEDICINE [address] [place] [address] Shwetha Collado, RN 505 [place] [address] 02/23/2025 10:00 AM EST Office Visit [facility] MEDICINE [address] [place] [address] Agustin Marrero MD 230 [place] [address] 05/31/2025 8:00 AM EST Office Visit [facility] ADULT DENTAL [address] [place] [address] Catherine Antonio [address] [place] [address] documented as of this encounter Visit Diagnoses Not on filedocumented in this encounter Additional Health Concerns Assessment Noted Time PHQ-9 Depression Total Score: 0 12/03/19 10:31 AM EDT documented as of this encounter Care Teams Quality Controller Relationship Specialty Start Date End Date Agustin Marrero MD [address] [place] [address] PCP - General Internal Medicine 01/25/14 [facility] 06/13/16 documented as of this encounter
--- OUTSIDE RECORDS SUMMARY | 2024-12-21 06:31 | XMS_ITS | Encounter Summary ---
Author Organization [facility] [employer] Address [address] [place] [address] 7t [place] [address] Care Team Providers Care Leadership Coach Name Role Phone Agustin Marrero MD Primary Care Provide r Reason for Visit * Reason Comments Med Refill Encounter Details Date Type Department Care Team ([facility] st Contact Info) Description 10/28/2023 Refill [facility] MEDICINE [address] [place], [place] [phone] Lela Wu MD [address] [place], [place] [phone] Primary insomnia Social History Tobacco Use Types [...] Description 01/06/2025 11:30 AM EDT Clinical Support [facility] MEDICINE [address] [place] [address] Shwetha Collado RN 505 [place] [address] 02/23/2025 10:00 AM EST Office Visit [facility] MEDICINE [address] [place] [address] Agustin Marrero MD [address] [place] [address] 05/31/2025 8:00 AM EST Office Visit [facility] ADULT DENTAL [address] [place] [address] Catherine Antonio [address] [place] [address] documented as of this encounter Visit Diagnoses Diagnosis Primary insomnia Persistent disorder of initiating or maintaining sleep documented in this encounter Additional Health Concerns Assessment Noted Time PHQ-9 Depression Total Score: 5 06/16/19 24 9:35 AM EST documented as of this encounter Care Teams Leadership Coach Relationship Specialty Start Date End Date Agustin Marrero MD [address] [place] [address] PCP - General Internal Medicine 01/25/14 [facility] 06/13/16 documented as of this encounter
--- OUTSIDE RECORDS SUMMARY | 2024-12-21 06:32 | XMS_ITS | Encounter Summary ---
Author Organization [employer] Address [address] [place] [address], [place] [address] Care Team Providers Care Casualty Underwriter Name Role Phone Agustin Marrero MD Primary Care Provide r Encounter Details Date Type Department Care Team (Latest Contact Info) Description 07/16/2020 Abstract [facility] CONVERSIONS Dental, Provider, DDS Social History [...] Care Team ( st Contact Info) Description 01/06/2025 11:30 AM EDT Clinical Support [facility] MEDICINE [address] [place] [address] Shwetha Collado RN [address] [place] [address] 02/23/2025 10:00 AM EST Office Visit [facility] MEDICINE [address] [place] [address] Agustin Marrero MD 230 [place] [address] 05/31/2025 8:00 AM EST Office Visit [facility] ADULT DENTAL [address] [place] [address] Catherine Antonio [address] [place] [address] documented as of this encounter Visit Diagnoses Not on filedocumented in this encounter Care Teams Casualty Underwriter Relationship Specialty Start Date End Date Agustin Marrero MD 230 [facility] [place] [address] PCP - General Internal Medicine 01/25/14 [facility] 06/13/16 documented as of this encounter
--- OUTSIDE RECORDS SUMMARY | 2024-12-21 06:32 | XMS_ITS | Encounter Summary ---
Author Organization [facility] Address [address] [place] [address] Care Team Providers Care Retail Support Specialist Name Role Phone Agustin Mix Primary Care Provider + Encounter Details Date Type Department Care Team (Late st Contact Info) Description 06/28/2020 Telephone [facility] Central Scheduling Department [address] [place] [address] Telephone Intake, Staff Social History Tobacco Use [...] and can be reached at phone number [phone]. Thank you documented in this encounter Plan of Treatment Upcoming Encounters Date Type Department Care Team (Late st Contact Info) Description 02/06/2025 9:30 AM EDT Follow-Up [facility] Liver Transplant Services [address] [place] [address] [phone] Dylan Phelps MD [address] [place], [place] [phone] documented as of this encounter Visit Diagnoses Not on filedocumented in this encounter Care Teams Retail Support Specialist Relationship Specialty Start Date End Date Agustin Mix 230 [place] [address] PCP - General Internal Medicine 04/15/17 documented as of this encounter
--- OUTSIDE RECORDS SUMMARY | 2024-12-21 06:32 | XMS_ITS | Encounter Summary ---
Author Organization [employer] Address [address] [place] [address], [place] [address] Care Team Providers Care Senior Database Administrator Name Role Phone Agustin Marrero MD Primary Care Provide r Encounter Details Date Type Department Care Team (Latest Contact Info) Description 05/23/2019 Abstract [facility] CONVERSIONS Dental, Provider, DDS Social History Tobacco [...] 11:30 AM EDT Clinical Support [facility] MEDICINE [address] [place] [address] Shwetha Collado RN [address] [place] [address] 02/23/2025 10:00 AM EST Office Visit [facility] MEDICINE [address] [place] [address] Agustin Marrero MD 230 [place] [address] 05/31/2025 8:00 AM EST Office Visit [facility] ADULT DENTAL 230 [place] [address] Catherine Antonio 230 [place] [address] documented as of this encounter Visit Diagnoses Not on filedocumented in this encounter Care Teams Senior Database Administrator Relationship Specialty Start Date End Date Agustin Marrero MD 230 [facility] [place] [address] PCP - General Internal Medicine 01/25/14 [facility] 06/13/16 documented as of this encounter
--- OUTSIDE RECORDS SUMMARY | 2024-12-21 06:32 | XMS_ITS | Encounter Summary ---
Author Organization [employer] Address [address] [place] [address] 7 [place] [address] Care Team Providers Care Paralegal Assistant Name Role Phone Agustin Marrero MD Primary Care Provide r Reason for Visit * Reason Comments Med Refill Encounter Details Date Type Department Care Team (Late st Contact Info) Description 05/14/2022 Refill [facility] MEDICINE [address] [place], [place] [phone] Agustin Marrero MD 230 [place] [address] Chronic midline low back pain without sciatica [...] 01/06/2025 11:30 AM EDT Clinical Support [facility] MEDICINE [address] [place] [address] Shwetha Collado, RN [address] [place] [address] 02/23/2025 10:00 AM EST Office Visit [facility] MEDICINE [address] [place] [address] Agustin Marrero MD [address] [place], [place] 05/31/2025 8:00 AM EST Office Visit [facility] ADULT DENTAL [address] [place] [address] Catherine Antonio [address] [place] [address] documented as of this encounter Visit Diagnoses Diagnosis Chronic midline low back pain without sciatica documented in this encounter Care Teams Paralegal Assistant Relationship Specialty Start Date End Date Agustin Marrero MD [address] [place] [address] PCP - General Internal Medicine 01/25/14 [facility] 06/13/16 documented as of this encounter
--- OUTSIDE RECORDS SUMMARY | 2024-12-21 06:32 | XMS_ITS | Encounter Summary ---
Author Organization [employer] Address [address] [place] [address] 7[place], [place] [address] Care Team Providers Care Snow Ranger Name Role Phone Agustin Marrero MD Primary Care Provide r Encounter Details Date Type Department Care Team (Latest Contact Info) Description 06/18/2021 Abstract [facility] CONVERSIONS Dental, Provider, DDS Social History [...] Support [facility] MEDICINE [address] [place] [address] Shwetha Collado RN [address] [place] [address] 02/23/2025 10:00 AM EST Office Visit [facility] MEDICINE [address] [place] [address] Agustin Marrero MD 230 [place] [address] 05/31/2025 8:00 AM EST Office Visit [facility] ADULT DENTAL [address] [place] [address] Catherine Antonio [address] [place] [address] documented as of this encounter Visit Diagnoses Not on filedocumented in this encounter Care Teams Snow Ranger Relationship Specialty Start Date End Date Agustin Marrero MD 230 [place] [address] PCP - General Internal Medicine 01/25/14 [facility] 06/13/16 documented as of this encounter
--- OUTSIDE RECORDS SUMMARY | 2024-12-21 06:32 | XMS_ITS | Encounter Summary ---
Author Organization [facility] Address [address] [place] [address] Care Team Providers Care Orthotist Or Prosthetist Name Role Phone Agustin Mix Primary Care Provider + Encounter Details Date Type Department Care Team (Late st Contact Info) Description 07/23/2023 Orders Only [facility] Interventional Radiology [address] [place] [address] Pawel Sanchez MD [address] [place] [address] Social History Tobacco Use Types Packs/Day Years [...] Info) Description 02/06/2025 9:30 AM EDT Follow-Up [facility] Liver Transplant Services [address] [place] [address] Dylan Phelps MD [address] [place] [address] documented as of this encounter Visit Diagnoses Not on filedocumented in this encounter Care Teams Orthotist Or Prosthetist Relationship Specialty Start Date End Date Agustin Mix [address] [place] [address] PCP - General Internal Medicine 04/15/17 documented as of this encounter
--- OUTSIDE RECORDS SUMMARY | 2024-12-21 06:32 | XMS_ITS | Encounter Summary ---
Author Organization [employer] Address [address] [place] [address] 7 [place] [address] Care Team Providers Care Biodiesel Product Manager Name Role Phone Agustin Marrero MD Primary Care Provide r Reason for Visit * Reason Comments Med Refill Encounter Details Date Type Department Care Team (Late Contact Info) Description 09/04/2022 Refill [facility] MEDICINE [address] [place], [place] [phone] Agustin Marrero MD [address] [place] [address] Social History Tobacco Use Types Packs/Day Years [...] Upcoming Encounters Date Type Department Care Team ([facility] Contact Info) Description 01/06/2025 11:30 AM EDT Clinical Support [facility] MEDICINE [address] [place] [address] Shwetha Collado, RN [address] [place] [address] 02/23/2025 10:00 AM EST Office Visit [facility] MEDICINE [address] [place] [address] Agustin Marrero MD [address] [place] [address] 05/31/2025 8:00 AM EST Office Visit [facility] ADULT DENTAL [address] [place] [address] Catherine Antonio 230 [place] [address] documented as of this encounter Visit Diagnoses Not on filedocumented in this encounter Care Teams Biodiesel Product Manager Relationship Specialty Start Date End Date Agustin Marrero MD [address] [place] [address] PCP - General Internal Medicine 01/25/14 [facility] 06/13/16 documented as of this encounter
--- OUTSIDE RECORDS SUMMARY | 2024-12-21 06:32 | XMS_ITS | Encounter Summary ---
Author Organization [employer] Address [address] [place] [address] 7 [place] [address] Care Team Providers Care Professional Services Consultant Name Role Phone Agustin Marrero MD Primary Care Provide r Reason for Visit * Reason Onset Date Comments Appointment 12/16/2024 Encounter Details Date Type Department Care Team ([facility] st Contact Info) Description 12/16/2024 Telephone [facility] MEDICINE [address] [place], [place] [phone] Agustin Marrero MD [address] [place], [place] [phone] Appointment Social History Tobacco Use Types Packs/Day Years [...] is your housing situation today? I have faysummer gonsalez 11/01/[address] you [...] encounter Miscellaneous Notes * Telephone Encounter - Taylor Vasquez [place] - 12/16/2024 1:29 PM EDT Contacted pt in regards to recall, pt agreed to date/time of 02/23/2025 @10AM. LB documented in this encounter Plan of Treatment Upcoming Encounters Date Type Department Care Team (Late st Contact Info) Description 01/06/2025 11:30 AM EDT Clinical Support [facility] MEDICINE [address] [place] [address] Shwetha Collado RN 505 [place] [address] 02/23/2025 10:00 AM EST Office Visit [facility] MEDICINE [address] [place] [address] Agustin Marrero MD [address] [place] [address] 05/31/2025 8:00 AM EST Office Visit [facility] ADULT DENTAL [address] [place] [address] Catherine Antonio [address] [place] [address] documented as of this encounter Visit Diagnoses Not on filedocumented in this encounter Additional Health Concerns Assessment Noted Time PHQ-9 Depression Total Score: 0 11/02/19 25 9:25 AM EDT documented as of this encounter Care Teams Professional Services Consultant Relationship Specialty Start Date End Date Agustin Marrero MD [address] [place] [address] PCP - General Internal Medicine 01/25/14 [facility] 06/13/16 documented as of this encounter
--- OUTSIDE RECORDS SUMMARY | 2024-12-21 06:32 | XMS_ITS ---
Author Organization [facility] Address [address] [place] [address] Care Team Providers Care Bindery Cutter Operator Name Role Phone Agustin Mix Primary Care Provider + Transplant Episode Liver Recipient [facility] ([place], [place]) - COUNT [facility]CLUDES [facility] Organ Received: Liver Transplanted on 08/09/2019 Marked as Active Follow-up on 08/09/2019 Liver CoordinatorErika Bonds RN Phone: N/A Fax: N/A Email: N/A [place] Organ Diagnosis Organ Primary Contributory Liver Alcoholic [...] Coordinator N/A N/A N/A Dylan Phelps MD Tongue And Groove Machine Setter [phone] [email or web address] Sarai Diaz Referring Physician [phone] N/A Events Post-Transplant Pre-Transplant Admitted: 08/09/2019 Referred: 09/08/2016 Transplanted: 08/09/2019 Evaluation began: 7 Discharged: 08/25/2019 Committee: 10/24/2016 Center waitlisted: 7
--- OUTSIDE RECORDS SUMMARY | 2024-12-21 06:32 | XMS_ITS | Encounter Summary ---
Author Organization [facility] Address [address] [place] [address] Care Team Providers Care Paintings Conservator Name Role Phone Agustin Mix Primary Care Provider + Encounter Details Date Type Department Care Team (Late st Contact Info) Description 01/01/2021 Orders Only [facility] Nuclear Medicine [address] [place] [address] Sreedhar Sotelo MD [address] [place], [place] [phone] Social History Tobacco Use Types Packs/Day Years [...] Info) Description 02/06/2025 9:30 AM EDT Follow-Up [facility] Liver Transplant Services [address] [place], [place] [phone] Dylan Phelps MD [address] [place] [address] documented as of this encounter Visit Diagnoses Not on filedocumented in this encounter Care Teams Paintings Conservator Relationship Specialty Start Date End Date Agustin Mix [address] [place] [address] PCP - General Internal Medicine 04/15/17 documented as of this encounter
--- OUTSIDE RECORDS SUMMARY | 2024-12-21 06:32 | XMS_ITS | Patient Health Record ---
Author Organization [facility] [place] Address [address] [facility] [place] [address] Care Team Providers Care Food Quality Technician Name Role Phone Nura Connelly MD, Agustin Primary Care Provide r Unavailable Sun Jj Unavailable [phone] Yovanny Long Unavailable [phone] Allergies No Known Allergies Results Component Value [...] Duration: 365 days 11/03/2024 Active Vitamin D3 244146 UNIT/GM as directed Active Losartan Potassium 25 [...] Problem Status W/U Status Risk Notes Problem Acquired hammer toe of right foot (9359728136593784 ) Other hammer toe(s) (acquired), right foot (M20.41) Active confirmed Problem Acquired hammer toe of left foot (4214147351917713 ) Other hammer toe(s) (acquired), left foot (M20.42) Active confirmed Problem Polyneuropathy due to type 2 diabetes mellitus (346549785) Type 2 diabetes mellitus with diabetic polyneuropathy (E11.42) Active confirmed Vital Signs Heart Rate 68 /min 06/17/2024 Blood pressure diastolic 81 mm Hg 11/03/2024 Height 5ft 7in in 11/03/2024 Blood pressure systolic 134 mm Hg 11/03/2024 Weight 205 lbs 11/03/2024 BMI 32.1 kg/m2 11/03/2024 Procedures Procedure Date Ordered Date Performed Result Body Sit e 65419-XDVIJQS NAIL, 6 OR MORE 03/10/2024 N/A [id number] NAIL, 6 OR MORE 06/17/2024 N/A Encounters Encounter Location Date Provider [facility] [address] [place] [phone] 03/10/2024 Yovanny Long Onychomycosis B35.1 ; Xerosis of skin L85.3 ; Pain in right toe(s) M79.674 and Pain in left toe(s) M79.675 [facility] [address] [place] [address] [place] [address] 06/17/2024 Yovanny Long Onychomycosis B35.1 and Type 2 diabetes mellitus with other diabetic neurological complication E11.49 [facility] [address] [place] [address] [facility] [address] 11/03/2024 Sun Jj Type 2 diabetes mellitus with diabetic polyneuropathy E11.42 ; Other hammer toe(s) (acquired), right foot M20.41 ; Tinea unguium B35.1 ; Tinea pedis of both feet B35.3 and Other hammer toe(s) (acquired), left foot M20.[address] [facility] [address] 03/10/2024 Yovanny [facility] [place] [address] [place] [address] 05/26/2024 Yovanny [facility] [address] 11/03/2024 Sun Jj Assessments Encounter Date Diagnosis (ICD Code) Assessment Notes Treatment Notes Treatment Clinical Notes Section Notes 03/10/2024 Xerosis of skin (ICD-10 - L85.3) Application of Milstead-Soothe skin lotion to his feet 03/10/2024 Onychomycosis (ICD-10 - B35.1) 06/17/2024 Type 2 diabetes mellitus with other diabetic neurological complication (ICD-10 - E11.49) 06/17/2024 Onychomycosis (ICD-10 - B35.1) 11/03/2024 Other hammer toe(s) (acquired), right foot (ICD-10 - M20.41) Patient Educated with: DIABETIC FOOT CARE INSTRUCTIONS.pd f (DIABETIC FOOT CARE INSTRUCTIONS.pd f) 11/03/2024 Type 2 diabetes mellitus with diabetic polyneuropathy (ICD-10 - E11.42) 11/03/2024 Tinea unguium (ICD-10 - B35.1) 03/10/2024 Pain in right toe(s) (ICD-10 - M79.674) 03/10/2024 Pain in left toe(s) (ICD-10 - M79.675) 11/03/2024 Tinea pedis of both feet (ICD-10 - B35.3) Patient Educated with: ATHELETE .pdf (ATHELETE .pdf) 11/03/2024 Other hammer toe(s) (acquired), left foot (ICD-10 - M20.42) 05/26/2024 Other 06/17/2024 Other Application of Milstead-Soothe skin lotion to his feet Plan Of Treatment Pending Test Test Name Order Date [id number] NAIL, 6 OR MORE 03/10/2024 [id number] NAIL, 6 OR MORE 06/17/2024 Next Appt Details Provider Name:Sun Kenney Silver kenney, 01/12/2025 10:30:00 AM, [address] [facility], [place], [address], Insurance Providers Payer Name Payer Address Payer Phone Subscriber Number Group Number Insured Name Patient Relationship to Insured Coverage Start Date Coverage End Date [facility] [employer] Claims [address] [place] [id number] Edward Jon Self - patient is the insured Medical (General) History Medical History History ICD Code Back,Hip,and Knee pain Broken bones Cataracts covid-19 Dementia Depression Diabetic Gall bladder problems Hiatal hernia High Blood Pressure Liver disease Psychiatric disorder Surgical History Surgery Date(Month/Year) back surgery 02/2024
--- OUTSIDE RECORDS SUMMARY | 2024-12-21 06:32 | XMS_ITS | Encounter Summary ---
Author Organization [employer] Address [address] [place] [address] 7 [place] [address] Care Team Providers Care Butter Grader Name Role Phone Agustin Marrero MD Primary Care Provide r Reason for Visit * Reason Onset Date Comments Med Refill 10/04/2024 Encounter Details Date Type Department Care Team ([facility] st Contact Info) Description 10/04/[address] [facility] MEDICINE [address] [place], [place] [phone] Agustin Marrero MD [address] [place], [place] [phone] Med Refill Social History Tobacco Use Types [...] tablet To be sent to: [facility]/pharmacy #[address] [place] [address] documented in this encounter Plan of Treatment Upcoming Encounters Date Type Department Care Team (Late st Contact Info) Description 01/06/2025 11:30 AM EDT Clinical Support [facility] MEDICINE [address] [place] [phone] Shwetha Collado RN [address] [place] [address] 02/23/2025 10:00 AM EST Office Visit [facility] MEDICINE [address] [place] [address] Agustin Marrero MD [address] [place] [address] 05/31/2025 8:00 AM EST Office Visit [facility] ADULT DENTAL [address] [place] [address] PacoCatherine [address] [place] [address] documented as of this encounter Visit Diagnoses Not on filedocumented in this encounter Additional Health Concerns Assessment Noted Time PHQ-9 Depression Total Score: 0 12/03/19 10:31 AM EDT documented as of this encounter Care Teams Butter Grader Relationship Specialty Start Date End Date Agustin Marrero MD [address] [place] [address] PCP - General Internal Medicine 01/25/14 [facility] 06/13/16 documented as of this encounter
--- OUTSIDE RECORDS SUMMARY | 2024-12-21 06:32 | XMS_ITS | Encounter Summary ---
Author Organization [employer] Address [address] [place] [address] [address] Care Team Providers Care Drug Abuse Worker Name Role Phone Agustin Marrero MD Primary Care Provide r Encounter Details Date Type Department Care Team (Latest Contact Info) Description 09/06/2018 Abstract [facility] CONVERSIONS Dental, Provider, DDS Social History [...] 01/06/2025 11:30 AM EDT Clinical Support [facility] MEDICINE [address] [place] [address] Shwetha Collado RN [address] [place] [address] 02/23/2025 10:00 AM EST Office Visit [facility] MEDICINE [address] [place] [address] Agustin Marrero MD [address] [place] [address] 05/31/2025 8:00 AM EST Office Visit [facility] ADULT DENTAL [address] [place] [address] Catherine Antonio [address] [place] [address] documented as of this encounter Visit Diagnoses Not on filedocumented in this encounter Care Teams Drug Abuse Worker Relationship Specialty Start Date End Date Agustin Marrero MD [address] [place] [address] PCP - General Internal Medicine 01/25/14 [facility] 06/13/16 documented as of this encounter
--- OUTSIDE RECORDS SUMMARY | 2024-12-21 06:32 | XMS_ITS | Encounter Summary ---
Author Organization [employer] Address [address] [place] [address] 7 [place] [address] Care Team Providers Care Device Processing Engineer Name Role Phone Agustin Marrero MD Primary Care Provide r Reason for Visit * Reason Onset Date Comments Med Refill 10/16/2022 Encounter Details Date Type Department Care Team ([facility] st Contact Info) Description 10/16/2022 Telephone [facility] MEDICINE [address] [place], [place] [phone] Agustin Marrero MD [address] [place], [place] [phone] Med Refill Social History Tobacco Use Types [...] AM EDT Clinical Support [facility] MEDICINE [address] [place] [phone] Shwetha Collado RN [address] [place] [address] 02/23/2025 10:00 AM EST Office Visit [facility] MEDICINE [address] [place] [phone] Agustin Marrero MD [address] [place] [address] 05/31/2025 8:00 AM EST Office Visit [facility] ADULT DENTAL [address] [place] [phone] Catherine Antonio [address] [place] [address] documented as of this encounter Visit Diagnoses Not on filedocumented in this encounter Care Teams Device Processing Engineer Relationship Specialty Start Date End Date Agustin Marrero MD [address] [place] [address] PCP - General Internal Medicine 01/25/14 [facility] 06/13/16 documented as of this encounter
--- OUTSIDE RECORDS SUMMARY | 2024-12-21 06:32 | XMS_ITS | Encounter Summary ---
Author Organization [employer] Address [address] [place] [address] 7t [place] [address] Care Team Providers Care Replanting Machine Crewman Name Role Phone Agustin Marrero MD Primary Care Provide r Reason for Visit * Reason Comments Med Refill Encounter Details Date Type Department Care Team ([facility] st Contact Info) Description 12/20/2024 Refill [facility] MEDICINE [address] [place], [place] [phone] Agustin Marrero MD [address] [place], [place] [phone] Chronic midline low back pain without sciatica [...] Clinical Support [facility] MEDICINE [address] [place] [phone] Shwetha Collado, KATALINA [address] [place] [address] 02/23/2025 10:00 AM EST Office Visit [facility] MEDICINE [address] [place] [phone] Agustin Marrero MD [address] [place] [address] 05/31/2025 8:00 AM EST Office Visit [facility] ADULT DENTAL [address] [place] [address] Catherine Antonio [address] [place] [address] documented as of this encounter Visit Diagnoses Diagnosis Chronic midline low back pain without sciatica documented in this encounter Additional Health Concerns Assessment Noted Time PHQ-9 Depression Total Score: 0 11/02/19 25 9:25 AM EDT documented as of this encounter Care Teams Replanting Machine Crewman Relationship Specialty Start Date End Date Agustin Marrero MD [address] [place] [address] [place] [address] PCP - General Internal Medicine 01/25/14 [facility] 06/13/16 documented as of this encounter
--- OUTSIDE RECORDS SUMMARY | 2024-12-21 06:32 | XMS_ITS | Encounter Summary ---
Author Organization [facility] Address [address] [place] [address] Care Team Providers Care Metal Pattern Maker Name Role Phone Agustin Mix Primary Care Provider + Encounter Details Date Type Department Care Team (Late st Contact Info) Description 01/21/2017 Transplant Conversio n Encounter [facility] Health Information Management [address] [place] [address] Provider, [facility] Social History Tobacco Use Types [...] Info) Description 02/06/2025 9:30 AM EDT Follow-Up [facility] Liver Transplant Services [address] [place] [address] Dylan Phelps MD [address] [place] [address] documented as of this encounter Visit Diagnoses Not on filedocumented in this encounter Additional Health Concerns Infection Onset Date Last Indicated Resolved Time 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 > 6 months ago - can D/C contact isolation 01/20/2019 02/10/2019 08/10/2019 9:27 AM E DT COVID-19 - Suspected infection 03/05/2020 03/17/2020 03/17/2020 7:55 PM EST COVID-19 - Confirmed infection 05/01/2020 05/07/2020 06/01/2020 5:06 PM EST COVID-19 - Suspected infection 05/10/2020 05/10/2020 05/24/2020 10:34 PM EST documented as of this encounter Care Teams Metal Pattern Maker Relationship Specialty Start Date End Date Agustin Mix [address] [place] [address] PCP - General Internal Medicine 04/15/17 documented as of this encounter
--- OUTSIDE RECORDS SUMMARY | 2024-12-21 06:32 | XMS_ITS | Encounter Summary ---
Author Organization [facility] Address [address] [place] [address] Care Team Providers Care Gas Systems Worker Name Role Phone Agustin Mix Primary Care Provider + Encounter Details Date Type Department Care Team (Late st Contact Info) Description 01/13/[address] [facility] 2 Rad Act 1 [address] [place] [address] Pawel Sanchez MD [address] [place] [address] Social History Tobacco Use Types Packs/Day Years [...] Info) Description 02/06/2025 9:30 AM EDT Follow-Up [facility] Liver Transplant Services [address] [place] [address] Dylan Phelps MD [address] [place] [address] documented as of this encounter Visit Diagnoses Not on filedocumented in this encounter Additional Health Concerns Infection Onset Date Last Indicated Resolved Time COVID-19 - Suspected infection 03/05/2020 03/17/2020 03/17/2020 7:55 PM EST COVID-19 - Confirmed infection 05/01/2020 05/07/2020 06/01/2020 5:06 PM EST COVID-19 - Suspected infection 05/10/2020 05/10/2020 05/24/2020 10:34 PM EST documented as of this encounter Care Teams Gas Systems Worker Relationship Specialty Start Date End Date Agustin Mix [address] [place] [address] PCP - General Internal Medicine 04/15/17 documented as of this encounter
--- OUTSIDE RECORDS SUMMARY | 2024-12-21 06:32 | XMS_ITS | Encounter Summary ---
Author Organization [employer] Address [address] [place] [address] 7 [place] [address] Care Team Providers Care Assistive Technology Trainer Name Role Phone Agustin Marrero MD Primary Care Provide r Reason for Visit * Reason Onset Date Comments Med Refill 10/04/2024 Encounter Details Date Type Department Care Team ([facility] st Contact Info) Description 10/04/2024 Telephone [facility] MEDICINE [address] [place], [place] [phone] Agustin Marrero MD [address] [place], [place] [phone] Med Refill Social History Tobacco Use Types [...] 10 MG tablet To be sent to: [facility]/pharmacy [address] [place] [address] documented in this encounter Plan of Treatment Upcoming Encounters Date Type Department Care Team (Late st Contact Info) Description 01/06/2025 11:30 AM EDT Clinical Support [facility] MEDICINE [address] [place] [address] Shwetha Collado RN [address] [place] [address] 02/23/2025 10:00 AM EST Office Visit [facility] MEDICINE [address] [place] [phone] Agustin Marrero MD [address] [place] [address] 05/31/2025 8:00 AM EST Office Visit [facility] ADULT DENTAL [address] [place] [address] Catherine Antonio [address] [place] [address] documented as of this encounter Visit Diagnoses Not on filedocumented in this encounter Additional Health Concerns Assessment Noted Time PHQ-9 Depression Total Score: 0 12/03/19 10:31 AM EDT documented as of this encounter Care Teams Assistive Technology Trainer Relationship Specialty Start Date End Date Agustin Marrero MD [address] [place] [address] PCP - General Internal Medicine 01/25/14 [facility] 06/13/16 documented as of this encounter
--- OUTSIDE RECORDS SUMMARY | 2024-12-21 06:33 | XMS_ITS | Clinical Summary ---
Author Organization [facility] Address [address] [place] [address] Care Team Providers Care Load Checker Name Role Phone Agustin Mix Primary Care [...] needed daily 2 Active FreeStyle Arvin 2 [place] misc 2 Active BD Insulin Syringe Ultra-Fine [...] TOME 1 CAPSULA POR VIA ORAL CADA DEANDRE HORRAYMOND 270 capsule 3 5 Active Active [...] ERCP tomorrow -serum CMV PCR -follow up [facility] -follow up blood cultures History of liver [...] in March 2020. He was seen by resin painter at [facility] who discussed [...] for liver biopsy, since LFT pattern not promotions representative of rejection. Additionally, Liver ultrasound showed [...] of recurrent ESBL bacteremia. Initially presented to [facility] for fever, LE swelling and pain. Unclear source. BCX grew esbl E.Coli 1 out of 2 sets from [facility], susceptible to Ertapenem. Initially he was on [...] of recurrent ESBL bacteremia. Initially presented to [facility] for fever, LE swelling and pain. Unclear source. BCX grew esbl E.Coli 1 out of 2 sets from [facility], susceptible to Ertapenem. Initially he was on [...] recurrent ESBL bacteremia. Patient initially presented to [facility] for fever and LE swelling and pain. Unclear source. BCX grew esbl E.Coli 1 out of 2 sets from [facility], susceptible to Ertapenem. Initially he was on zosyn, and was switched to ertapenem. On previous admission, MRCP on 12/20 or Abdominal US on 01/16 showed no biliary dilatation. - continue ertapenem (10 day course to be completed on 02/09 per [facility] note) - repeat BCX - CT AP w/ contrast - consult transplant ID in the AM - f/u CBC and CMP Assessment & Plan (02/05/2019 5:40 AM EDT): Patient has a recurrent history of recurrent ESBL bacteremia. Patient initially presented to [facility] for fever and LE swelling and pain. Unclear source. BCX grew esbl E.Coli 1 out of 2 sets from [facility], susceptible to Ertapenem. Initially he was on zosyn, and was switched to ertapenem. On previous admission, MRCP on 12/20 or Abdominal US on 01/16 showed no biliary dilatation. - continue ertapenem (10 day course to be completed on 02/09 per [facility] note) - repeat BCX - CT AP w/ contrast Abscess of leg, right 02/05/20192018 Assessment & Plan (02/22/2019 3:37 PM EST): Patient has worsened leg edema R>L w/ rt side 4+ pitting edema. At [facility], US was negative for DVT. CT rt [...] w/ rt side 4+ pitting edema. At [facility], US was negative for DVT. CT rt [...] Right side has 4+ pitting edema. At [facility], US was obtained and ruled out DVT. [...] was found. OSH GI recommended transfer to [facility] as there was a [...] pathology. -BCx grew GNR -transplant ID consulted -[facility] [...] concerning for pathology. -Transplant ID is following -[facility] will fax culture data, commented that [...] 8:59 AM EST): Hyponatremic to 132 at [facility]. Na 128, constant through hospitalization. - daily BMP Assessment & Plan (02/09/2019 11:02 AM EDT): Hyponatremic to 132 at [facility]. Na 128, constant through hospitalization. - daily BMP Assessment & Plan (02/05/2019 5:51 AM EDT): Hyponatremic to 132 at [facility]. - repeat BMP in am and redose diuretics Assessment & Plan (02/05/2019 5:47 AM EDT): Hyponatremic to 132 at [facility]. - repeat BMP in am [...] Presented again on day of admission to [facility] with worsening shortness of breath where a CT chest PE protocol was performed which showed no evidence of intraluminal filling defect though did make note of large left- sided pleural effusion with associated complete left lower lobe collapse as well as partial left upper lobe collapse. Due to recurrent pleural effusion and likely need for repeat thoracentesis patient was transferred [facility]. On arrival patient without any increased work of breathing and saturating well on room air. Exam reveals absent breath sounds in the left middle and lower lung perez with increased dullness to percussion. 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 -We will have CT scan from [facility] uploaded into our system for review -CXR on 07/11 showed large left pleural effusion -IP consulted for thoracentesis. Will send fluid studies. -Requested [facility] records of pleural fluid studies from 07/06 -Supplemental oxygen as needed to maintain sats greater than 92% Assessment & Plan (01/19/2019 10:11 AM EDT): Patient is s/p thoracentesis after large left lung effusion unchanged from previous admission seen on imaging. Site of thoracentesis covered with bandage that is dry and intact. Chart review of his prior hospitalization at [facility] revealed that he had thoracentesis on January 11, 2019, during which 1.6 L was taken out, and fluid study revealed white blood cell count of 2650 and segs of 35%, suggesting exudative fluid, although it seems that no paracentesis was done at [facility]. - decreased breath sounds in middle and [...] resulting transudative fluid, rapidly reaccumulating, transferred to [facility] for TIPS intervention. Resumed [...] procedure in 2017. Most recent hospitalization at [facility] was in January 2019 when he [...] appears that no paracentesis was done at [facility]. - Start Lactulose increased to 20 g [...] from TIPS procedure and was sent to [facility] for further evaluation. Plan [...] 20mg daily and spironolactone 50mg daily. At [facility], patient received IV lasix 40mg daily. - [...] 20mg daily and spironolactone 50mg daily. At [facility], patient received IV lasix 40mg daily. - [...] Department Care Team Description 12/12/2024 Orders Only [facility] Transplant Department [address] [place] [address] [phone] Erika Bonds RN Encounter for immunosuppression management after liver transplant (HCC) (Primary Dx); History of hepatocellular carcinoma 11/25/2024 Abstract [facility] Transplant Department [address] [place] [address] [id number] Dylan Phelps MD 11/24/2024 Results Follow-Up [facility] Transplant Department [address] [place] [address] 35901 Erika Bonds RN 11/24/2024 Abstract [facility] Transplant Department [address] [place] [address] 18501 Dylan Phelps MD 10/21/2024 Refill [facility] Liver Transplant Services [address] [place] [address] 56374 Dylan Phelps MD History of liver transplant (HCC) 10/20/2024 Abstract [facility] Transplant Department [address] [place] [address] [id number] Dylan Phelps MD 09/22/2024 Abstract [facility] Transplant Department [address] [place] [address] 90414 Dylan Phelps MD 09/22/2024 Results Follow-Up [facility] Transplant Department [address] [place] [address] 79207 Erika Bonds RN 09/22/2024 Abstract [facility] Transplant Department [address] [place] [address] [phone] Dylan Phelps MD from Last 3 Months [...] Info) Description 02/06/2025 9:30 AM EDT Follow-Up [facility] Liver Transplant Services [address] [place] [address] Dylan Phelps MD [address] [place], [place] [phone] Health Maintenance Due Date Last Done Comments Cologuard 1964 Colon Cancer Screening 1965 Colonoscopy 1964 FOBT / Fit Test 1964 Sigmoidoscopy 1964 Ophthalmology Exam 01/03/1974 Urine Microalbumin 05/17/2022 05/17/2021, 04/06/2020 DTaP,Tdap,and Td Vaccines (2 - Td or Tdap) 09/16/2023 09/15/2013, 10/26/2006 RSV Vaccine (60+ years old a nd patients) (1 - Risk 60-74 years 1-dose series) 2024 Alcohol/Substance Use Screening 04/20/2024 Depression Screening and Follow-Up 04/20/2024 Social Drivers of Health Layla ual Screening 04/20/2024 Basic Metabolic Panel 09/11/2024 09/12/2023 , 11/19/2022, 11/15/2022, Additional history exists CT Lung Cancer Screening (Baseline) 11/29/2024 11/30/2023, 11/05/2023, 05/06/2022, Additional history exists COVID-19 Vaccine (6 - 2024-2 6 season) 2024 05/06/2022, 11/25/2021, 03/25/2021, Additional history exists Influenza Vaccine (#1) 2024 [...] history exists Medical Devices Implanted Type Area Coffin Maker Device Identifier Shelf Expiration Date Model / Serial / Lot Shunt Transjugular Intrahepatic Portosystemic Tips Endoprosthesis [id number] Viatorr - [id number] Implanted:Qty: 1 on 07/28/2017 at [facility] Implant W L GORE 12/26/2019 [id number] / / Mesh Hernia With Strap Large Ventralex - [id number] Implanted:Qty: 1 on 03/20/2020 by Fernando Fine MD PhD at [facility] Mesh Right: Abdomen [employer] 01/15/2021 [id number] / / [id number] Stent Biliary Rx Fully Covered Self Expanding Metallic Rmv With Permalume Covering 8.5fr [id number] Wallflex - [id number] - [id number] Implanted:Qty: 1 on 11/21/2022 by Dunia Osorio MD at [facility] Stent N/A: Bile Duct [employer] 08/21/2024 [id number] / [id number] / Explanted Type Area Coffin Maker Device Identifier Shelf Expiration Date Model / Serial / Lot Ercp Stent-11/21/2022 Implanted:07/2022 (Quantity not on file) Explanted:06/2022 (Quantity not on file) ERCP Stent Bile Duct 1 / / Txp Internal Biliary Stent- 0 Implanted:04/2 04/2019 (Quantity not on file) Explanted:060 07/2020 (Quantity not on file) TXP Internal Biliary Stent Bile Duct Procedures * Due to [place] state law, this organization might not be [...] to Health Maintenance Results * Due to [place] [employer] [facility] law, this organization might not be sharing negative HIV tests. * LIVER POST EXTERNAL PANEL (11/23/2024 7:08 AM EDT) Only the most recent of3 resultswithin the time period is included. Tacrolimus, Highly Sensitive 3.7 [facility] Sodium 136 mmol/L [facility] Potassium 4.6 [facility] Chloride 106 [facility] Carbon Dioxide 24 [facility] Glucose 197 [facility] BUN 18 mg/dL [facility] Creatinine 1.11 mg/dL [facility] Calcium 9.1 mg/dL [facility] Total Protein 6.9 g/dL [facility] Albumin 4.6 g/dL [facility] Bilirubin, Total 0.9 mg/dL [facility] Alkaline Phosphatase 92 U/L [facility] AST 29 U/L [facility] ALT 32 U/L [facility] Magnesium 1.50 mg/dL [facility] WBC 5.0 10*3/uL [facility] Hgb 14.0 [facility] Hematocrit 38.6 % [facility] Platelets 125 10*3/uL [facility] 11/23/2024 7:08 AM EDT Dylan Phelps MD LAB BLOOD ORDERABLES Final Re sult Performing Organization Address [facility] Co de Phone Number [facility] [address] [place] [id number] * AFP Tumor Marker, Outside Lab (11/23/2024 7:08 AM EDT) Only the most recent of2 resultswithin the time period is included. Alpha Fetoprotein, Tumor Marker 1.3 [facility] Blood Structure of peripheral vein / Unknown 11/23/2024 7:08 AM EDT Dylan Phelps MD LAB BLOOD ORDERABLES Final Re sult Performing Organization Address [facility] Co de Phone Number [facility] [address] [place] [address] * CT Chest W Contrast (11/05/2023 4:35 [...] to obtain the completed interpretation. Workstation ID: [id number] Up-to-date CT equipment and radiation dose reduction techniques were employed. CTDIvol: 3.1 - 23.9 mGy. DLP: 2643 mGy-cm. The following accession numbers are related to this dose report [id number]: [id number] Narrative 11/19/2023 3:36 PM EDT Indication: 58 [...] the spine. Bilateral gynecomastia. Resulting Agency Comment [id number] Procedure Note Natasha Michaud MD - 11/19/2023 [...] possible to obtain thecompleted interpretation. Workstation ID: [id number] Up-to-date CT equipment and radiation dose reduction techniques wereemployed. CTDIvol: 3.1 - 23.9 mGy. DLP: 2643 mGy-cm. The followingaccession numbers are related to this dose report [id number]: [id number] Dylan Phelps MD [facility] CT PROCEDURES Final Resul t * (ABNORMAL) Basic Metabolic Panel (11/15/2022 3:07 AM EDT) NA 135 135 - 145 mmol/L 11/15/2022 4:09 AM EDT [facility] K 4.6 3.5 - 5.3 mmol/L 11/15/2022 4:09 AM EDT [facility] Cl 103 97 - 110 mmol/L 11/15/2022 4:09 AM EDT [facility] CO2 24 24 - 32 mmol/L 11/15/2022 4:09 AM EDT [facility] BUN 27(H) 7 - 23 mg/dL 11/15/2022 4:09 AM EDT [facility] Creatinine 1.05 0.60 - 1.30 mg/dL 11/15/2022 4:09 AM EDT [facility] Glucose 268(H) 70 - 99 mg/dL 11/15/2022 4:09 AM EDT [facility] Calcium 8.8 8.7 - 10.7 mg/dL 11/15/2022 4:09 AM EDT [facility] Anion Gap 8 5 - 15 11/15/2022 4:09 AM EDT [facility] eGFR 82 >=60 mL/min/1. 73m2 11/15/2022 4:09 AM EDT [facility] Comment:The estimated glomer ular [...] ORDERABLES Final Re sult Performing Organization Address City/[facility]/ZIP Co de Phone Number [facility] [address] [place] [address], * Microalbumin, Random Urine with Creatinine (05/17/2021 11:35 AM EST) Microalbumin, Urine 1.1 mg/dL 05/17/2021 12:34 PM EST [facility] Creatinine, Urine 97 22 - 328 mg/dL 05/17/2021 12:34 PM EST [facility] Microalb/Creat Ratio, Random Urine 11.3 <30.0 mcg/mgCr 05/17/2021 12:34 PM EST [facility] Comment: Microalbumin Reference Range: Normal <30 mcg/mg Creatinine Microalbuminuria 30-300 mcg/mg Creatinine Clinical Albuminuria >300 mcg/mg Creatinine Reference: ADA Guideline. Diabetes Care. 2004;27 (suppl 1) Urine Voided urine specimen / Unknown Non-Blood Collection / Unknown 05/17/2021 11:35 AM EST 05/17/2021 12:01 PM EST Angelita Villa MD LAB URINE ORDERABLES Final Resul t [facility] [address] [place] [address], [place] * (ABNORMAL) Hemoglobin A1c (05/17/2021 11:31 AM EST) Hemoglobin A1C 7.7(H) <5.7 % of total Hgb 05/18/2021 2:37 AM EST [facility] Comment: For someone without known diabetes, a [...] (MG/DL) 174 mg/dL 05/18/2021 2:37 AM EST [facility] eAG (MMOL/L) 9.7 mmol/L 05/18/2021 2:37 AM EST [facility] Blood Structure of peripheral vein / Unknown Venipuncture / Unknown 05/17/2021 11:31 AM EST 05/17/2021 11:40 AM EST Narrative [facility] - 05/18/2021 2:37 AM EST [facility] Received Date: us Angelita Villa MD LAB BLOOD ORDERABLES Final Resul t [facility] [address] [facility] [address]rd [address], [place] [address], [place] [phone] [facility] [address] [facility] [address] Floor, [place] [address], [place] [phone] * CT Abdomen Pelvis with Contrast (05/05/2020 5:27 PM EST) Anatomical Region Laterality Modality Body Computed Tomogra phy 05/06/2020 8:40 AM EST Impressions 05/06/2020 8:50 AM EST Small fluid pocket between the incision and transverse colon which may represent developing adhesions. Recommend correlation for any signs of infection in the incision on exam. Otherwise, no CT findings that might explain patient's fever. [id number] Narrative 05/06/2020 8:50 AM EST EXAMINATION: CT [...] no CT findings that mightexplain patient's fever. [id number] Reyes Voss MD IMG CT PROCEDURES Final Result * Hepatitis C RNA, Quantitative, PCR (09/09/2019 11:52 AM EDT) Hcv RNA, Quantitative Real Time PCR <15 NOT DETECTED NOT DETECTED IU/mL 09/14/2019 5:38 PM EDT [facility] Hepatitis C Quantitative PCR Log IU/mL <1.18 NOT DETECTED NOT DETECTED Log IU/mL 09/14/2019 5:38 PM EDT [facility] Comment: This test was performed using Real-Time Polymerase Chain Reaction. Reportable Range: 15 IU/mL to 100,000,000 IU/mL (1.18 Log IU/mL to 8.00 Log IU/mL). The analytical performance characteristics of this assay have been determined by [email or web address]. The modifications have not been cleared or approved by the FDA. This assay has been validated pursuant to the CLIA regulations and is used for clinical purposes. For more information on this test, go to: http://education.[employer]/faq/PHW05q5 (This link is being provided for informational/ educational purposes only.) Blood Structure of peripheral vein / Unknown Venipuncture / Unknown 09/09/2019 11:52 AM EDT 09/09/2019 12:07 PM EDT Narrative [facility] - 09/14/2019 5:38 PM EDT [facility] Received Date:[id number] Cyndi Pereira MD LAB BLOOD ORDERAB LES Final Result [facility] [address] [facility] [address]rd Floor, [place] [address], [place] [phone] [facility] [address] [facility] [address]rd Floor, [place] [address], [place] [phone] from Last 3 Months or Most Recently Relevant to Health Maintenance Insurance [address] [place] [id number] [facility] [address] [facility] [place] [id number] [facility] [address] [facility] [place] [id number] [facility] Advance Directives Documents on File Type Date Recorded Patient Crop Puller Expl anation Health Care Proxy 02/05/2019 4:40 [...] Jon Son Health Care Agent Care Teams Load Checker Relationship Specialty Start Date End Date Agustin Mix [address] [place] [phone] PCP - General Internal Medicine 04/15/17
--- OUTSIDE RECORDS SUMMARY | 2024-12-21 06:33 | XMS_ITS | Encounter Summary ---
Author Organization [employer] Address [address] [place] [address] [place], [place] [address] Care Team Providers Care After School Tutor Name Role Phone Agustin Marrero MD Primary Care Provide r Reason for Visit * Reason Onset Date Comments Med Refill 12/15/2022 Encounter Details Date Type Department Care Team ([facility] st Contact Info) Description 12/15/2022 Telephone [facility] [address] [place], [place] [phone] Agustin Marrero MD [address] [place] [address] Med Refill Social History Tobacco Use Types [...] Description 01/06/2025 11:30 AM EDT Clinical Support [facility] [address] [place] [address] Shwetha Collado, KATALINA [address] [place] [address] 02/23/2025 10:00 AM EST Office Visit [facility] [address] [place] [address] Agustin Marrero MD [address] [place] [address] 05/31/2025 8:00 AM EST Office Visit [facility] ADULT DENTAL [address] [place] [address] Catherine Antonio [address] [place] [address] documented as of this encounter Visit Diagnoses Not on filedocumented in this encounter Care Teams After School Tutor Relationship Specialty Start Date End Date Agustin Marrero MD [address] [place] [address] PCP - General Internal Medicine 01/25/14 [facility] 06/13/16 documented as of this encounter
--- OUTSIDE RECORDS SUMMARY | 2024-12-21 06:33 | XMS_ITS | Encounter Summary ---
Author Organization [employer] Address [address] [place] [address] 7t [place] [address] Care Team Providers Care National Secretary Name Role Phone Agustin Marrero MD Primary Care Provide r Encounter Details Date Type Department Care Team ([facility] st Contact Info) Description 05/05/2023 Telephone [facility] MEDICINE [address] [place], [place] [phone] Agustin Marrero MD [address] [place], [place] [phone] Social History Tobacco Use Types Packs/Day Years [...] Clinical Support [facility]INE [address] [place] [phone] Shwetha Collado RN [address] [place] [address] 02/23/2025 10:00 AM EST Office Visit [facility] MEDICINE [address] [place] [phone] Agustin Marrero MD [address] [place] [address] 05/31/2025 8:00 AM EST Office Visit [facility] ADULT DENTAL [address] [place] [phone] Matty Antonioaris [address] [place] [address] documented as of this encounter Visit Diagnoses Not on filedocumented in this encounter Care Teams National Secretary Relationship Specialty Start Date End Date Agustin Marrero MD [address] [place] [phone] PCP - General Internal Medicine 01/25/14 [facility] 06/13/16 documented as of this encounter
--- OUTSIDE RECORDS SUMMARY | 2024-12-21 06:33 | XMS_ITS | Encounter Summary ---
Author Organization [employer] Address [address] [place] [address] 7t [place] [address] Care Team Providers Care Maintenance Aide Name Role Phone Agustin Marrero MD Primary Care Provide r Reason for Visit * Reason Comments Med Refill Encounter Details Date Type Department Care Team ([facility] st Contact Info) Description 05/13/2024 Refill [facility] [address] [place], [place] [phone] Agustin Marrero MD [address] [place] [address] Social History Tobacco Use Types Packs/Day Years [...] Description 01/06/2025 11:30 AM EDT Clinical Support [facility] [address] [place] [phone] Shwetha Collado RN [address] [place] [address] 02/23/2025 10:00 AM EST Office Visit [facility] [address] [place] [phone] Agustin Marrero MD [address] [place] [phone] 05/31/2025 8:00 AM EST Office Visit [facility] ADULT DENTAL [address] [place] [phone] Catherine Antonio [address] [place] [address] documented as of this encounter Visit Diagnoses Not on filedocumented in this encounter Additional Health Concerns Assessment Noted Time PHQ-9 Depression Total Score: 0 12/03/19 24 10:31 AM EDT documented as of this encounter Care Teams Maintenance Aide Relationship Specialty Start Date End Date Agustin Marrero MD [address] [place] [phone] PCP - General Internal Medicine 01/25/14 [facility] 06/13/16 documented as of this encounter
--- OUTSIDE RECORDS SUMMARY | 2024-12-21 06:33 | XMS_ITS | Encounter Summary ---
Author Organization [facility] Address [address] [place] [address] Care Team Providers Care Inspection Machine Tender Name Role Phone Agustin Mix Primary Care Provider + Encounter Details Date Type Department Care Team (Late st Contact Info) Description 02/29/2020 [facility] [address] [place] [address] Sreedhar Sotelo MD [address] [place], [place] [phone] Social History Tobacco Use Types Packs/Day Years [...] Info) Description 02/06/2025 9:30 AM EDT Follow-Up [facility] Liver Transplant Services [address] [place] [address] Dylan Phelps MD [address] [place] [address] documented as of this encounter Visit Diagnoses Not on filedocumented in this encounter Additional Health Concerns Infection Onset Date Last Indicated Resolved Time COVID-19 - Suspected infection 03/05/2020 03/17/2020 03/17/2020 7:55 PM EST COVID-19 - Confirmed infection 05/01/2020 05/07/2020 06/01/2020 5:06 PM EST COVID-19 - Suspected infection 05/10/2020 05/10/2020 05/24/2020 10:34 PM EST documented as of this encounter Care Teams Inspection Machine Tender Relationship Specialty Start Date End Date Agustin Mix [address] [place] [address] PCP - General Internal Medicine 04/15/17 documented as of this encounter
--- OUTSIDE RECORDS SUMMARY | 2024-12-21 06:33 | XMS_ITS | Encounter Summary ---
Author Organization [employer] Address [address] [place] [address] 7 [place] [address] Care Team Providers Care Any Commodity Sales Deliverer Name Role Phone Agustin Marrero MD Primary Care Provide r Reason for Visit * Reason Onset Date Comments Med Refill 05/26/2023 Encounter Details Date Type Department Care Team ([facility] st Contact Info) Description 05/26/2023 Telephone [facility] MEDICINE [address] [place], [place] [phone] Agustin Marrero MD [address] [place], [place] [phone] Med Refill Social History Tobacco Use Types [...] LITE test strip To be sent to: [facility]/pharmacy [address] [place] [address] - [address] [place] [address] documented in this encounter Plan of Treatment Upcoming Encounters Date Type Department Care Team (Late st Contact Info) Description 01/06/2025 11:30 AM EDT Clinical Support [facility] MEDICINE [address] [place] [address] Shwetha Collado RN [address] [place] [address] 02/23/2025 10:00 AM EST Office Visit [facility] MEDICINE [address] [place] [address] Agustin Marrero MD [address] [place] [address] 05/31/2025 8:00 AM EST Office Visit [facility] ADULT DENTAL [address] [place] [address] Catherine Antonio [address] [place] [address] documented as of this encounter Visit Diagnoses Not on filedocumented in this encounter Care Teams Any Commodity Sales Deliverer Relationship Specialty Start Date End Date Agustin Marrero MD [address] [place] [address] PCP - General Internal Medicine 01/25/14 [facility] 06/13/16 documented as of this encounter
--- OUTSIDE RECORDS SUMMARY | 2024-12-21 06:33 | XMS_ITS | Encounter Summary ---
Author Organization [facility] Address [address] [place] [address] Care Team Providers Care Biodiesel Production Associate Name Role Phone Agustin Mix Primary Care Provider + Encounter Details Date Type Department Care Team (Late st Contact Info) Description 04/02/2020 Orders Only [facility] Interventional Radiology [address] [place] [address] Kathy Bowling MD [address] [place], [place] [phone] Social History Tobacco Use Types Packs/Day Years [...] Info) Description 02/06/2025 9:30 AM EDT Follow-Up [facility] Liver Transplant Services [address] [place], [place] [phone] Dylan Phelps MD [address] [place] [address] documented as of this encounter Visit Diagnoses Not on filedocumented in this encounter Additional Health Concerns Infection Onset Date Last Indicated Resolved Time COVID-19 - Confirmed infection 05/01/2020 05/07/2020 06/01/2020 5:06 PM EST COVID-19 - Suspected infection 05/10/2020 05/10/2020 05/24/2020 10:34 PM EST documented as of this encounter Care Teams Biodiesel Production Associate Relationship Specialty Start Date End Date Agustin Mix [address] [place] [address] PCP - General Internal Medicine 04/15/17 documented as of this encounter
--- OUTSIDE RECORDS SUMMARY | 2024-12-21 06:33 | XMS_ITS | Encounter Summary ---
Author Organization [employer] Address [address] [place] [address] 7 [place] [address] Care Team Providers Care Carroting Machine Offbearer Name Role Phone Agustin Marrero MD Primary Care Provide r Encounter Details Date Type Department Care Team (Late Contact Info) Description 08/28/2022 Abstract [facility] MEDICINE [address] [place] [address] Agustin Marrero MD [address] [place] [address] Social History Tobacco Use Types Packs/Day Years [...] Description 01/06/2025 11:30 AM EDT Clinical Support [facility] [address] [place] [address] Shwetha Collado RN [address] [place] [address] 02/23/2025 10:00 AM EST Office Visit [facility] MEDICINE [address] [place] [address] [phone] Agustin Marrero MD [address] [place] [address] 05/31/2025 8:00 AM EST Office Visit [facility] ADULT DENTAL [address] [place] [address] Catherine Anotnio [address] [place] [address] documented as of this encounter Procedures Procedure Name Priority Date/Time Associated Diagnosis Comments COLONOSCOPY Routine 06/28/2021 documented in this encounter Results * Colonoscopy (06/28/2021) Colonoscopy Normal Normal 06/28/2021 Narrative Shanel Bo - 06/28/2021 9:58 AM EST Recommended 3 year follow up per GI notes ( [facility] ) us Historical Provider Yola MAINTENANCE Edited Result - Final documented in this encounter Visit Diagnoses Not on filedocumented in this encounter Care Teams Carroting Machine Offbearer Relationship Specialty Start Date End Date Agustin Marrero MD [address] [place] [address] PCP - General Internal Medicine 01/25/14 [facility] 06/13/16 documented as of this encounter
--- OUTSIDE RECORDS SUMMARY | 2024-12-21 06:33 | XMS_ITS | Encounter Summary ---
Author Organization [employer] Address [address] [place] [address] 7 [place] [address] Care Team Providers Care Medical Tech Name Role Phone Agustin Marrero MD Primary Care Provide r Reason for Visit * Reason Onset Date Comments Medication Question 05/11/2024 Encounter Details Date Type Department Care Team ([facility] st Contact Info) Description 05/11/2024 Telephone [facility] MEDICINE [address] [place], [place] [phone] Agustin Marrero MD [address] [place], [place] [phone] Medication Question Social History Tobacco Use Types [...] Dr Richardson's office on 05/11/2024. Note in [facility] EHR: Received call from Edward[facility] [...] early May to continue to monitor. Called [facility] pharmacy, spoke with Faiza who stated that pt last picked up Kayexalate on 08/13/2023, Rx was written by Dr Lenin Richardson for 30g 1x weekly as directed. Called [facility] Dr Richardson's office to confirm. Spoke [...] Richardson's office and received same messageas above. Superintendent Transportation advised Jessica to contact Dr Richardson with any questions regarding this med given that they prescribe it. Jessica stated she will be following up with their office in May once the pt gets their labs drawn. Advised her to call [facility] if any other questions or concerns [...] leaving original prescriber contact information. Dr. Richardson [facility]. . If any questions for Jessica you can contact pt at [phone]. documented in this encounter Plan of Treatment Upcoming Encounters Date Type Department Care Team (Late st Contact Info) Description 01/06/2025 11:30 AM EDT Clinical Support [facility] MEDICINE [address] [place] [address] Shwetha Collado RN 505 [place] [address] 02/23/2025 10:00 AM EST Office Visit [facility] MEDICINE [address] [place] [address] Agustin Marrero MD [address] [place] [address] 05/31/2025 8:00 AM EST Office Visit [facility] ADULT DENTAL [address] [place] [phone] Catherine Antonio [address] [place] [address] documented as of this encounter Visit Diagnoses Not on filedocumented in this encounter Additional Health Concerns Assessment Noted Time PHQ-9 Depression Total Score: 0 12/03/19 10:31 AM EDT documented as of this encounter Care Teams Medical Tech Relationship Specialty Start Date End Date Agustin Marrero MD [address] [place] [address] PCP - General Internal Medicine 01/25/14 [facility] 06/13/16 documented as of this encounter
--- OUTSIDE RECORDS SUMMARY | 2024-12-21 06:33 | XMS_ITS | Encounter Summary ---
Author Organization [facility] Address [address] [place] [address] Care Team Providers Care Investigations Manager Name Role Phone Agustin Mix Primary Care Provider + Encounter Details Date Type Department Care Team (Late st Contact Info) Description 11/24/2024 Results Follow-Up [facility] Transplant Department [address] [place] [address] Erika Bonds RN Social History Tobacco Use [...] [facility] Liver Transplant Services [address] [place] [address] Dylan Phelps MD [address] [place] [address] documented as of this encounter Visit Diagnoses Not on filedocumented in this encounter Care Teams Investigations Manager Relationship Specialty Start Date End Date Agustin Mix [address] [place] [address] PCP - General Internal Medicine 04/15/17 documented as of this encounter
--- OUTSIDE RECORDS SUMMARY | 2024-12-21 06:33 | XMS_ITS | Encounter Summary ---
Author Organization [facility] Address [address] [place] [address] Care Team Providers Care Director Of Human Resources Name Role Phone Agustin Mix Primary Care Provider + Encounter Details Date Type Department Care Team (Late st Contact Info) Description 12/30/2021 Orders Only [facility] Interventional Radiology [address] [place] [address] Avelino Otero DO [address] [place] [address] Social History Tobacco Use Types Packs/Day Years [...] Description 02/06/2025 9:30 AM EDT Follow-Up [facility] Liver Transplant Services [address] [place] [address] Dylan Phelps MD [address] [place] [address] documented as of this encounter Visit Diagnoses Not on filedocumented in this encounter Care Teams Director Of Human Resources Relationship Specialty Start Date End Date Agustin Mix [address] [place] [address] PCP - General Internal Medicine 04/15/17 documented as of this encounter
--- OUTSIDE RECORDS SUMMARY | 2024-12-21 06:33 | XMS_ITS | Encounter Summary ---
Author Organization [employer] Address [address] [place] [address] 7t [place] [address] Care Team Providers Care Skiver Box Toe Name Role Phone Agustin Marrero MD Primary Care Provide r Reason for Visit * Reason Comments Med Refill Encounter Details Date Type Department Care Team ([facility] st Contact Info) Description 06/04/2023 Refill [facility] MEDICINE [address] [place], [place] [phone] Natasha Nguyen MD [address] [place] [address] Gastroesophageal reflux disease, unspecified whether esophagitis present [...] AM EDT Clinical Support [facility] MEDICINE [address] [place] [address] Shwetha Collado, KATALINA [address] [place] [address] 02/23/2025 10:00 AM EST Office Visit [facility] MEDICINE [address] [place] [address] Agustin Marrero MD [address] [place] [address] 05/31/2025 8:00 AM EST Office Visit [facility] ADULT DENTAL [address] [place] [address] Catherine Antonio [address] [place] [address] documented as of this encounter Visit Diagnoses Diagnosis Gastroesophageal reflux disease, unspecified whether esophagitis present documented in this encounter Care Teams Skiver Box Toe Relationship Specialty Start Date End Date Agustin Marrero MD [address] [place] [address] PCP - General Internal Medicine 01/25/14 [facility] 06/13/16 documented as of this encounter
--- OUTSIDE RECORDS SUMMARY | 2024-12-21 06:33 | XMS_ITS | Encounter Summary ---
Author Organization [employer] Address [address] [place] [address] [place], [place] [address] Care Team Providers Care Field Administrator Name Role Phone Agustin Marrero MD Primary Care Provide r Reason for Visit * Reason Onset Date Comments Med Refill 12/15/2022 Encounter Details Date Type Department Care Team ([facility] st Contact Info) Description 12/15/2022 Telephone [facility] MEDICINE [address] [place], [place] [phone] Agustin Marrero MD [address] [place] [address] Med Refill Social History Tobacco Use Types [...] Description 01/06/2025 11:30 AM EDT Clinical Support [facility] MEDICINE [address] [place] [address] Shwetha Collado, RN 505 [place] [address] 02/23/2025 10:00 AM EST Office Visit [facility] MEDICINE [address] [place] [address] Agustin Marrero MD [address] [place] [address] 05/31/2025 8:00 AM EST Office Visit [facility] ADULT DENTAL [address] [place] [address] Catherine Antonio [address] [place] [address] documented as of this encounter Visit Diagnoses Not on filedocumented in this encounter Care Teams Field Administrator Relationship Specialty Start Date End Date Agustin Marrero MD [address] [place] [address] PCP - General Internal Medicine 01/25/14 [facility] 06/13/16 documented as of this encounter
--- OUTSIDE RECORDS SUMMARY | 2024-12-21 06:33 | XMS_ITS | Encounter Summary ---
Author Organization [employer] Address [address] [place] [address] 7 [place] [address] Care Team Providers Care Steel Rule Inspector Name Role Phone Agustin Marrero MD Primary Care Provide r Reason for Visit * Reason Onset Date Comments Error 05/12/2023 Encounter Details Date Type Department Care Team ([facility] st Contact Info) Description 05/12/2023 Telephone [facility] MEDICINE [address] [place], [place] [phone] Agustin Marrero MD [address] [place], [place] [phone] Error Social History Tobacco Use Types Packs/Day [...] Description 01/06/2025 11:30 AM EDT Clinical Support [facility] MEDICINE [address] [place] [address] Shwetha Collado, KATALINA [address] [place] [address] 02/23/2025 10:00 AM EST Office Visit [facility] MEDICINE [address] [place] [address] Agustin Marrero MD [address] [place] [address] 05/31/2025 8:00 AM EST Office Visit [facility] ADULT DENTAL [address] [place] [address] Catherine Antonio [address] [place] [address] documented as of this encounter Visit Diagnoses Not on filedocumented in this encounter Care Teams Steel Rule Inspector Relationship Specialty Start Date End Date Agustin Marrero MD [address] [place] [address] PCP - General Internal Medicine 01/25/14 [facility] 06/13/16 documented as of this encounter
[2024-12-21 06:40] LABS: MANUAL DIFF FLAG NO
[2024-12-21 07:41] LABS: Hematocrit 39.4 % (42.0-52.0); Hemoglobin 14.0 g/dl (14.0-18.0); Imm Gran Abs Auto 0.02 X10*3/uL (0.00-0.03); Imm Gran Pct Auto 0.3 % (0.0-0.4); Lymphocytes Absolute Auto 1.4 X10*3/uL (1.2-4.9); Mean Corpuscular HGB Conc 35.5 g/dl (31.0-36.0); Mean Corpuscular Hemoglobin 29.8 pg (27.0-33.0); Mean Corpuscular Volume 83.8 fL (80.0-98.0); NRBC Abs Auto 0.000 X10*3/uL (0.0-0.012); NRBC Pct Auto 0.0 /100WBC (0.0-0.2); Platelet Count 151 X10*3/uL (160-400); Red Blood Count 4.70 X10*6/uL (4.60-5.80); White Blood Count 5.8 X10*3/uL (4.8-10.8)
[2024-12-21 08:13] LABS: Alanine Aminotransferase 36 U/L (0-40); Albumin Level 4.5 g/dL (3.5-5.0); Alkaline Phosphatase 135 U/L (39-117); Anion Gap 11 (12-20); Aspartate Amino Transferase 30 U/L (5-37); Blood Urea Nitrogen 21 mg/dL (9-16); Calcium 9.3 mg/dL (8.4-10.2); Carbon Dioxide 26 mmol/L (22-29); Chloride 105 mmol/L (96-108); Estimated Glomerular Filt Rate > 60; Magnesium 1.7 mg/dL (1.6-2.6); Potassium 4.7 mmol/L (3.3-5.1); Sodium 137 mmol/L (135-145); Total Protein 6.9 g/dL (6.5-8.0)
[2024-12-22 06:53] LABS: Tacrolimus Prograf 4.7 mcg/L
== END 2024-12-21 06:28 | disposition home or self-care (01) ==
LOC: HO.LABR 06:27
PROVIDERS: PCP Internal Medicine; Visit Provider Internal Medicine
DX: Z48.23 Encounter for aftercare following liver transplant (principal); Z51.81 Encounter for therapeutic drug level monitoring; Z85.05 Personal history of malignant neoplasm of liver; Z94.4 Liver transplant status; Z79.899 Other long term (current) drug therapy
CPT/HCPCS: 36415; 80053; 80197; 82105; 83735; 85025

== ENCOUNTER 2024-12-23 13:41 | Outpatient (REF) | payer OTHER, SELFPAY ==
--- OUTSIDE RECORDS SUMMARY | 2024-05-26 06:15 | XMS_ITS ---
Author Organization [facility] Reji bill [place] Address [address] [facility] [place] [address] Care Team Providers Care White Lead Filterer Name Role Phone Nura Connelly MD, Agustin Primary Care Provide r Unavailable Sun Jj Unavailable [phone] Yovanny Long Unavailable [phone] REASON FOR VISIT last visit pcp 12/31/23, [...] Orally Once a day Active Vitamin D3 674928 UNIT/GM as directed Active Losartan Potassium 25 [...] Encounters Encounter Location Date [facility] [facility] [place] [address] 05/26/2024 Yovanny Long Onychomycosis B35.1 ; Pain [...] Provider Name:Sun kenney, 01/12/2025 10:30:00 AM, [address] [facility], [place], [address], Procedure Notes * Category Sub-Category Detail Notes [...] use of a nail nipper and/or dremel-type meat grinder, to a more viable healthy nail [...] to maintain effectiveness in symptomatic relief - 19678 Progress Notes * Edward JONDOB:[birth year] (59 yo M)Acc No.[id number]:05/26/2024 Progress Note Patient: Edward WINTER Provider: Kishan Long D.P.M. :1965 A ge:59 Y S ex:Male Date:05/26/2024 Address:[address] [place], [place] [phone] Pcp:Agustin Connelly MD Subjective: * Chief Complaints: [...] enies. C ardiovascular: Pacemaker d enies. 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 W PW d enies. C [...] as directed Orally , Taking Vitamin D3 532215 UNIT/GM Powder as directed , Taking Losartan [...] use of a nail nipper and/or dremel-type meat grinder, to a more viable healthy nail [...] to maintain effectiveness in symptomatic relief - 12780. * Procedure Codes: 1 1721 DEBRIDE NAIL, [...] 05/26/2024 Generated for Francisco reagan/Eloina/Samantha on: 0 12/23/2024 02:09 PM EDT History and Physical Notes * Examination [...]
--- OUTSIDE RECORDS SUMMARY | 2024-08-29 07:00 | XMS_ITS ---
Author Organization [facility] Address [address] [facility] [place] [address] Care Team Providers Care Teacher Of The Deaf Name Role Phone Nura Connelly MD, Agustin Primary Care Provide r Unavailable Sun Jj Unavailable [phone] Encounters Encounter Location Date Provider Diagnosis [address] [address] 08/29/2024 Sun Jj Plan Of Treatment Next Appt Details Provider Name:Sun kenney, 01/12/2025 10:30:00 AM, [address] [place] [address], [place], [address], Progress Notes * Edward JONDOB:[birth year] (59 yo M)Acc No.[id number]:08/29/2024 Progress Note Patient: Edward WINTER Provider: Hola Jj DPM :1965 A ge:59 Y S ex:Male Date:08/29/2024 Address:[address] [place] [address] [address], [place] Pcp:Agustin Connelly MD Subjective: * Chief Complaints: [...] 0 08/29/2024 Generated for Francisco reagan/Eloina/Samantha on: 0 12/23/2024 02:09 PM EDT
--- NOTE | ~2024-12-23 | MM_ITS ---
EXAMINATION (S): MM DIAGNOSTIC DIGITAL BREAST TOMOSYNTHESIS, BILATERAL CLINICAL INFORMATION: Bilateral gynecomastia . The patient denies focal lumps or focal pain. COMPARISON: Mammograms on March 10, 2018 and March 24, 2016. TECHNIQUE: Digital breast tomosynthesis is performed in both the mediolateral oblique and craniocaudal views along with computer-aided detection (CAD). Synthesized 2D images are generated from the tomosynthesis. FINDINGS: BILATERAL BREASTS: Redemonstration of bilateral density compatible with gynecomastia, which is less prominent than in 2018. No significant masses, suspicious calcifications or other abnormalities are seen in either breast. MM/MM tomosynthesis diagnostic BI IMPRESSION: BILATERAL BREASTS: Bilateral gynecomastia. Benign, no mammographic evidence of malignancy. Clinical follow-up is recommended. ASSESSMENT: BI-RADS 2 - Benign Findings Results were provided to the patient at time of visit by the technologist. This patient's information was entered into a reminder system with a target due date for their next mammogram. Electronically signed by: Sandra Robertson MD 12/23/2024 04:44 PM EDT
--- OUTSIDE RECORDS SUMMARY | 2024-12-23 14:09 | XMS_ITS | Encounter Summary ---
Author Organization [employer] Address [address] [address] 7t [place] [address] Care Team Providers Care Supervisor Dyer Name Role Phone Agustin Marrero MD Primary Care Provide r Reason for Visit * Reason Comments Med Refill Encounter Details Date Type Department Care Team ([facility] st Contact Info) Description 11/02/2023 Refill [facility] MEDICINE [address] [place], [place] [phone] Lela Wu MD [address] [place], [place] [phone] Primary insomnia Social History Tobacco Use Types [...] Description 01/06/2025 11:30 AM EDT Clinical Support [facility] MEDICINE [address] [place] [address] Shwetha Collado RN [address] [place] [address] 02/23/2025 10:00 AM EST Office Visit [facility] MEDICINE [address] [place] [address] Agustin Marrero MD [address] [place] [address] 05/31/2025 8:00 AM EST Office Visit [facility] ADULT DENTAL [address] [place] [address] Catherine Antonio [address] [place] [address] documented as of this encounter Visit Diagnoses Diagnosis Primary insomnia Persistent disorder of initiating or maintaining sleep documented in this encounter Additional Health Concerns Assessment Noted Time PHQ-9 Depression Total Score: 5 06/16/19 24 9:35 AM EST documented as of this encounter Care Teams Supervisor Dyer Relationship Specialty Start Date End Date Agustin Marrero MD [address] [place] [address] PCP - General Internal Medicine 01/25/14 [facility] 06/13/16 documented as of this encounter
--- OUTSIDE RECORDS SUMMARY | 2024-12-23 14:09 | XMS_ITS | Encounter Summary ---
Author Organization [employer] Address [address] [place] [address] 7t [place] [address] Care Team Providers Care Ceramic Products Sales Engineer Name Role Phone Agustin Marrero MD Primary Care Provide r Encounter Details Date Type Department Care Team ([facility] st Contact Info) Description 12/24/2023 Telephone [facility] MEDICINE [address] [place], [place] [phone] Agustin Marrero MD 230 [place], [place] [phone] Social History Tobacco Use Types Packs/Day Years [...] Description 01/06/2025 11:30 AM EDT Clinical Support [facility] MEDICINE [address] [place] [address] Shwetha Collado, KATALINA [address] [place] [address] 02/23/2025 10:00 AM EST Office Visit [facility] MEDICINE [address] [place] [address] Agustin Marrero MD [address] [place] [address] 05/31/2025 8:00 AM EST Office Visit [facility] ADULT DENTAL [address] [place] [address] Catherine Antonio [address] [place] [address] documented as of this encounter Visit Diagnoses Not on filedocumented in this encounter Additional Health Concerns Assessment Noted Time PHQ-9 Depression Total Score: 0 12/03/19 24 10:31 AM EDT documented as of this encounter Care Teams Ceramic Products Sales Engineer Relationship Specialty Start Date End Date Agustin Marrero MD [address] [place] [address] PCP - General Internal Medicine 01/25/14 [facility] 06/13/16 documented as of this encounter
--- OUTSIDE RECORDS SUMMARY | 2024-12-23 14:09 | XMS_ITS | Encounter Summary ---
Author Organization [employer] Address [address] [place] [address] 7 [place] [address] Care Team Providers Care Business Loan Processor Name Role Phone Agustin Marrero MD Primary Care Provide r Reason for Visit * Reason Onset Date Comments fyi 12/13/2024 Encounter Details Date Type Department Care Team ([facility] st Contact Info) Description 12/13/2024 Telephone [facility] MEDICINE [address] [place], [place] [phone] Agustin Marrero MD [address] [place], [place] [phone] fyi Social History Tobacco Use Types Packs/Day [...] 102/62 recorded. Call to Jessica DARDEN with [facility] at [phone], reports BP of 164/105 , pt had [...] to Edward Fonseca to triage below at [phone]. Reports took losartan after visiting nurse advised [...] to PCP as FYI and to advise [place] Team Primary care team nurses of plan [...] 8:16 AM EDT Tc from Jessica at [facility] called to inform that pt had a elevated diastolic bp , 164/105. Pt denies any cardiac symptoms. Contact Jessica at [phone] documented in this encounter Plan of Treatment Upcoming Encounters Date Type Department Care Team (Late st Contact Info) Description 01/06/2025 11:30 AM EDT Clinical Support [facility] MEDICINE [address] [place] [address] Shwetha Collado RN [address] [place] [address] 02/23/2025 10:00 AM EST Office Visit [facility] MEDICINE [address] [place] [address] Agustin Marrero MD [address] [place] [address] 05/31/2025 8:00 AM EST Office Visit [facility] ADULT DENTAL [address] [place] [address] Catherine Antonio [address] [place] [address] documented as of this encounter Visit Diagnoses Not on filedocumented in this encounter Additional Health Concerns Assessment Noted Time PHQ-9 Depression Total Score: 0 07/15/20 25 9:25 AM EDT documented as of this encounter Care Teams Business Loan Processor Relationship Specialty Start Date End Date Agustin Marrero MD [address] [place] [address] PCP - General Internal Medicine 01/25/14 [facility] 06/13/16 documented as of this encounter
--- OUTSIDE RECORDS SUMMARY | 2024-12-23 14:09 | XMS_ITS | Encounter Summary ---
Author Organization [employer] Address [address] [place] [address] 7t [place] [address] Care Team Providers Care Set Up Mechanic Stamping Machines Name Role Phone Agustin Marrero MD Primary Care Provide r Reason for Visit * Reason Comments Med Refill Encounter Details Date Type Department Care Team ([facility] st Contact Info) Description 12/24/2023 Refill [facility] MEDICINE 230 [place], [place] [phone] Agustin Marrero MD 230 [place], [place] [phone] Chronic midline low back pain without sciatica [...] Description 01/06/2025 11:30 AM EDT Clinical Support [facility] MEDICINE [address] [place] [address] Shwetha Collado, KATALINA [address] [place] [address] 02/23/2025 10:00 AM EST Office Visit [facility] MEDICINE [address] [place] [address] Agustin Marrero MD [address] [place] [address] 05/31/2025 8:00 AM EST Office Visit [facility] ADULT DENTAL [address] [place] [address] Catherine Antonio [address] [place] [address] documented as of this encounter Visit Diagnoses Diagnosis Chronic midline low back pain without sciatica documented in this encounter Additional Health Concerns Assessment Noted Time PHQ-9 Depression Total Score: 0 12/03/19 24 10:31 AM EDT documented as of this encounter Care Teams Set Up Mechanic Stamping Machines Relationship Specialty Start Date End Date Agustin Marrero MD [address] [place] [address] PCP - General Internal Medicine 01/25/14 [facility] 06/13/16 documented as of this encounter
--- OUTSIDE RECORDS SUMMARY | 2024-12-23 14:09 | XMS_ITS | Encounter Summary ---
Author Organization [employer] Address [address] [place] [address] 7t [place] [address] Care Team Providers Care Fur Stretcher Name Role Phone Agustin Marrero MD Primary Care Provide r Reason for Visit * Reason Comments Med Refill Encounter Details Date Type Department Care Team ([facility] st Contact Info) Description 2024 Refill [facility] [address] [place], [place] [phone] Agustin Marrero MD 230 [place] [address] Social History Tobacco Use Types Packs/Day Years [...] Description 01/06/2025 11:30 AM EDT Clinical Support [facility] [address] [place] [address] Shwetha Collado RN [address] [place] [address] 02/23/2025 10:00 AM EST Office Visit [facility] [address] [place] [address] Agustin Marrero MD [address] [place] [address] 05/31/2025 8:00 AM EST Office Visit [facility]ULT [facility] [address] [place] [address] Catherine Antonio [address] [place] [address] documented as of this encounter Visit Diagnoses Not on filedocumented in this encounter Additional Health Concerns Assessment Noted Time PHQ-9 Depression Total Score: 0 12/03/19 24 10:31 AM EDT documented as of this encounter Care Teams Fur Stretcher Relationship Specialty Start Date End Date Agustin Marrero MD [address] [place] [address] PCP - General Internal Medicine 01/25/14 [facility] 06/13/16 documented as of this encounter
--- OUTSIDE RECORDS SUMMARY | 2024-12-23 14:10 | XMS_ITS | Encounter Summary ---
Author Organization [employer] Address [address] [place] [address] 7t [place] [address] Care Team Providers Care Rice Farmworker Name Role Phone Agustin Marrero MD Primary Care Provide r Encounter Details Date Type Department Care Team ([facility] st Contact Info) Description 08/31/2024 Telephone [facility] [address] [place], [place] [phone] Agustin Marrero MD 230 [place], [place] [phone] Social History Tobacco Use Types Packs/Day Years [...] Notes * Telephone Encounter - Xuan Mclaughlin Toñiot - 08/31/2024 2:28 PM EDT TC from pt requesting medication refill. Medications needing refill : - traMADol (Ultram) 50 MG tablet To be sent to: [facility]/pharmacy #[id number] - MARILYN SARGENT - [address] [place] [place] [address] documented in this encounter Plan of Treatment Upcoming Encounters Date Type Department Care Team (Late st Contact Info) Description 01/06/2025 11:30 AM EDT Clinical Support [facility] [address] [place] [address] Shwetha Collado, RN [address] [place] [address] 02/23/2025 10:00 AM EST Office Visit [facility] [address] [place] [address] Agustin Marrero MD 230 [place] [address] 05/31/2025 8:00 AM EST Office Visit [facility] ADULT DENTAL [address] [place] [address] Catherine Antonio [address] [place] [address] documented as of this encounter Visit Diagnoses Not on filedocumented in this encounter Additional Health Concerns Assessment Noted Time PHQ-9 Depression Total Score: 0 12/03/19 10:31 AM EDT documented as of this encounter Care Teams Rice Farmworker Relationship Specialty Start Date End Date Agustin Marrero MD [address] [place] [address] PCP - General Internal Medicine 01/25/14 [facility] 06/13/16 documented as of this encounter
--- OUTSIDE RECORDS SUMMARY | 2024-12-23 14:10 | XMS_ITS | Encounter Summary ---
Author Organization [employer] Address [address] [place] [address] 7 [place] [address] Care Team Providers Care Value Engineer Name Role Phone Agustin Marrero MD Primary Care Provide r Reason for Visit * Reason Comments Med Refill Encounter Details Date Type Department Care Team (Late st Contact Info) Description 05/14/2022 Refill [facility] MED[facility]INE [address] [place], [place] [phone] Agustin Marrero MD [address] [place] [address] Chronic midline low back pain without sciatica [...] 11:30 AM EDT Clinical Support [facility] MEDICINE [address] [place] [address] Shwetha Collado, RN [address] [place] [address] 02/23/2025 10:00 AM EST Office Visit [facility] MEDICINE [address] [place] [address] Agustin Marrero MD [address] [place], [place] 05/31/2025 8:00 AM EST Office Visit [facility] ADULT DENTAL [address] [place] [address] Catherine Antonio [address] [place] [address] documented as of this encounter Visit Diagnoses Diagnosis Chronic midline low back pain without sciatica documented in this encounter Care Teams Value Engineer Relationship Specialty Start Date End Date Agustin Marrero MD [address] [place] [address] PCP - General Internal Medicine 01/25/14 [facility] 06/13/16 documented as of this encounter
--- OUTSIDE RECORDS SUMMARY | 2024-12-23 14:10 | XMS_ITS | Encounter Summary ---
Author Organization [employer] Address [address] [place] [address] 7 [place] [address] Care Team Providers Care Computer Applications Instructor Name Role Phone Agustin Marrero MD Primary Care Provide r Reason for Visit * Reason Onset Date Comments Med Refill 10/04/2024 Encounter Details Date Type Department Care Team ([facility] st Contact Info) Description 10/04/2024 Telephone [facility] MEDICINE [address] [place], [place] [phone] Agustin Marrero MD 230 [place], [place] [phone] Med Refill Social History Tobacco Use Types [...] 50 MG tablet To be sent to: [facility]/pharmacy #[address] [place] [address] documented in this encounter Plan of Treatment Upcoming Encounters Date Type Department Care Team (Late st Contact Info) Description 01/06/2025 11:30 AM EDT Clinical Support [facility] MEDICINE [address] [place] [address] Shwetha Collado RN [address] [place] [address] 02/23/2025 10:00 AM EST Office Visit [facility] MEDICINE [address] [place] [address] Agustin Marrero MD [address] [place] [address] 05/31/2025 8:00 AM EST Office Visit [facility] ADULT DENTAL [address] [place] [address] PacoCatherine [address] [place] [address] documented as of this encounter Visit Diagnoses Not on filedocumented in this encounter Additional Health Concerns Assessment Noted Time PHQ-9 Depression Total Score: 0 12/03/19 10:31 AM EDT documented as of this encounter Care Teams Computer Applications Instructor Relationship Specialty Start Date End Date Agustin Marrero MD [address] [place] [address] PCP - General Internal Medicine 01/25/14 [facility] 06/13/16 documented as of this encounter
--- OUTSIDE RECORDS SUMMARY | 2024-12-23 14:10 | XMS_ITS | Encounter Summary ---
Author Organization [facility] Address [address] [place] [address] Care Team Providers Care It Senior Software Engineer Java Name Role Phone Agustin Mix Primary Care Provider + Encounter Details Date Type Department Care Team (Late st Contact Info) Description 01/21/2017 Transplant Conversio n Encounter [facility] [address] [place] [address] Provider, [facility] Social History Tobacco Use Types Packs/Day [...] Info) Description 02/06/2025 9:30 AM EDT Follow-Up [facility] Liver Transplant Services [address] [place] [address] Dylan Phelps MD [address] [place] [address] documented as of this encounter Visit Diagnoses Not on filedocumented in this encounter Additional Health Concerns Infection Onset Date Last Indicated Resolved Time 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
--- OUTSIDE RECORDS SUMMARY | 2024-12-23 14:10 | XMS_ITS | Encounter Summary ---
Author Organization [employer] Address [address] [place] [address] [place] [address] Care Team Providers Care Fleet Service Manager Name Role Phone Agustin Marrero MD Primary Care Provide r Reason for Visit * Reason Onset Date Comments Med Refill 03/01/2024 Encounter Details Date Type Department Care Team ([facility] st Contact Info) Description 03/01/2024 Telephone [facility] [address] [place], [place] [phone] Agustin Marrero MD [address] [place], [place] [phone] Med Refill Social History Tobacco Use Types [...] 03/01/2024 2:24 PM EST Received fax from [facility] requesting script clarification need directions. * Telephone Encounter - Manjeet Mclaughlin - 03/01/2024 2:21 PM EST TC from pt requesting medication refill. Medications needing refill : traMADol (Ultram) 50 MG table To be sent to: [facility]/pharmacy #[id number] documented in this encounter Plan of Treatment Upcoming Encounters Date Type Department Care Team (Late st Contact Info) Description 01/06/2025 11:30 AM EDT Clinical Support [facility] [address] [place] [address] Shwetha Collado RN [address] [place] [address] 02/23/2025 10:00 AM EST Office Visit [facility] [address] [place] [address] Agustin Marrero MD [address] [place] [address] 05/31/2025 8:00 AM EST Office Visit [facility] ADULT DENTAL [address] [place] [address] Catherine Antonio [address] [place] [address] documented as of this encounter Visit Diagnoses Not on filedocumented in this encounter Additional Health Concerns Assessment Noted Time PHQ-9 Depression Total Score: 0 12/03/19 10:31 AM EDT documented as of this encounter Care Teams Fleet Service Manager Relationship Specialty Start Date End Date Agustin Marrero MD [address] [place] [address] PCP - General Internal Medicine 01/25/14 [facility] 06/13/16 documented as of this encounter
--- OUTSIDE RECORDS SUMMARY | 2024-12-23 14:10 | XMS_ITS | Encounter Summary ---
Author Organization [employer] Address [address] [place] [address] 7 [place] [address] Care Team Providers Care Anvil Seating Press Operator Name Role Phone Agustin Marrero MD Primary Care Provide r Reason for Visit * Reason Comments Med Refill Encounter Details Date Type Department Care Team (Late Contact Info) Description 09/04/2022 Refill [facility] MEDICINE [address] [place], [place] [phone] Agustin Marrero MD [address] [place] [address] Social History Tobacco Use Types Packs/Day Years [...] Upcoming Encounters Date Type Department Care Team ([facility] Contact Info) Description 01/06/2025 11:30 AM EDT Clinical Support [facility] MEDICINE [address] [place] [address] Shwetha Collado, RN [address] [place] [address] 02/23/2025 10:00 AM EST Office Visit [facility] MEDICINE [address] [place] [address] Agustin Marrero MD [address] [place] [address] 05/31/2025 8:00 AM EST Office Visit [facility] ADULT DENTAL [address] [place] [address] Catherine Antonio [address] [place] [address] documented as of this encounter Visit Diagnoses Not on filedocumented in this encounter Care Teams Anvil Seating Press Operator Relationship Specialty Start Date End Date Agustin Marrero MD [address] [place] [address] PCP - General Internal Medicine 01/25/14 [facility] 06/13/16 documented as of this encounter
--- OUTSIDE RECORDS SUMMARY | 2024-12-23 14:10 | XMS_ITS | Encounter Summary ---
Author Organization [facility] Address [address] [place] [address] Care Team Providers Care Shoe Parts Caser Name Role Phone Agustin Mix Primary Care Provider + Encounter Details Date Type Department Care Team (Late st Contact Info) Description 06/28/2020 Telephone [facility] Central Scheduling Department [address] [place] [address] Telephone Intake, Staff Social History Tobacco Use [...] and can be reached at phone number [phone]. Thank you documented in this encounter Plan of Treatment Upcoming Encounters Date Type Department Care Team (Late st Contact Info) Description 02/06/2025 9:30 AM EDT Follow-Up [facility] Liver Transplant Services [address] [place] [address] [phone] Dylan Phelps MD [address] [place], [place] [phone] documented as of this encounter Visit Diagnoses Not on filedocumented in this encounter Care Teams Shoe Parts Caser Relationship Specialty Start Date End Date Agustin Mix [address] [place] [address] PCP - General Internal Medicine 04/15/17 documented as of this encounter
--- OUTSIDE RECORDS SUMMARY | 2024-12-23 14:10 | XMS_ITS | Encounter Summary ---
Author Organization [employer] Address [address] [place] [address] [place] [address] Care Team Providers Care Equipment Service Technician Name Role Phone Agustin Marrero MD Primary Care Provide r Reason for Visit * Reason Onset Date Comments Med Refill 12/15/2022 Encounter Details Date Type Department Care Team ([facility] st Contact Info) Description 12/15/2022 Telephone [facility] MEDICINE [address] [place], [place] [phone] Agustin Marrero MD [address] [place] [address] Med Refill Social History Tobacco Use Types [...] Description 01/06/2025 11:30 AM EDT Clinical Support [facility] MEDICINE [address] [place] [address] Shwetha Collado, RN [address] [place] [address] 02/23/2025 10:00 AM EST Office Visit [facility] MEDICINE [address] [place] [address] Agustin Marrero MD [address] [place] [address] 05/31/2025 8:00 AM EST Office Visit [facility] ADULT DENTAL [address] [place] [address] Catherine Antonio [address] [place] [address] documented as of this encounter Visit Diagnoses Not on filedocumented in this encounter Care Teams Equipment Service Technician Relationship Specialty Start Date End Date Agustin Marrero MD [address] [place] [address] PCP - General Internal Medicine 01/25/14 [facility] 06/13/16 documented as of this encounter
--- OUTSIDE RECORDS SUMMARY | 2024-12-23 14:10 | XMS_ITS | Encounter Summary ---
Author Organization [facility] Address [address] [place] [address] Care Team Providers Care Cold Meat Cook Name Role Phone Agustin Mix Primary Care Provider + Encounter Details Date Type Department Care Team (Late st Contact Info) Description 01/13/2020 Orders Only [facility] 2 Rad Act 1 [address] [place] [address] Pawel Sanchez MD [address] [place] [address] Social History Tobacco Use Types Packs/Day Years [...] Description 02/06/2025 9:30 AM EDT Follow-Up [facility] Liver Transplant Services [address] [place] [address] Dylan Phelps MD [address] [place] [address] documented as of this encounter Visit Diagnoses Not on filedocumented in this encounter Additional Health Concerns Infection Onset Date Last Indicated Resolved Time COVID-19 - Suspected infection 03/05/2020 03/17/2020 03/17/2020 7:55 PM EST COVID-19 - Confirmed infection 05/01/2020 05/07/2020 06/01/2020 5:06 PM EST COVID-19 - Suspected infection 05/10/2020 05/10/2020 05/24/2020 10:34 PM EST documented as of this encounter Care Teams Cold Meat Cook Relationship Specialty Start Date End Date Agustin Mix [address] [place] [address] PCP - General Internal Medicine 04/15/17 documented as of this encounter
--- OUTSIDE RECORDS SUMMARY | 2024-12-23 14:10 | XMS_ITS | Clinical Summary ---
Author Organization [facility] Address [address] [place] [address] Care Team Providers Care Oncology Account Specialist Name Role Phone Agustin Mix Primary [...] needed daily 2 Active FreeStyle Arvin 2 [place] misc 2 Active BD Insulin Syringe Ultra-Fine [...] ERCP tomorrow -serum CMV PCR -follow up [facility] -follow up blood cultures History of liver [...] in March 2020. He was seen by scene painter at [facility] who discussed that he [...] for liver biopsy, since LFT pattern not construction sales representative of rejection. Additionally, Liver ultrasound [...] recurrent ESBL bacteremia. Initially presented to [facility] for fever, LE swelling and pain. Unclear source. BCX grew esbl E.Coli 1 [facility] 2 sets [facility], susceptible to Ertapenem. Initially he was on [...] recurrent ESBL bacteremia. Initially presented to [facility] for fever, LE swelling and pain. Unclear source. BCX grew esbl E.Coli 1 out of 2 sets from [facility], susceptible to Ertapenem. Initially he was on [...] ESBL bacteremia. Patient initially presented to [facility] for fever and LE swelling and pain. Unclear source. BCX grew esbl E.Coli 1 out of 2 sets from [facility], susceptible to Ertapenem. Initially he was on zosyn, and was switched to ertapenem. On previous admission, MRCP on 12/20 or Abdominal US on 01/16 showed no biliary dilatation. - continue ertapenem (10 day course to be completed on 02/09 per [facility] note) - repeat BCX - CT AP w/ contrast - consult transplant ID in the AM - f/u CBC and CMP Assessment & Plan (02/05/2019 5:40 AM EDT): Patient has a recurrent history of recurrent ESBL bacteremia. Patient initially presented to [facility] for fever and LE swelling and pain. Unclear source. BCX grew esbl E.Coli 1 out of 2 sets from [facility], susceptible to Ertapenem. Initially he was on zosyn, and was switched to ertapenem. On previous admission, MRCP on 12/20 or Abdominal US on 01/16 showed no biliary dilatation. - continue ertapenem (10 day course to be completed on 02/09 per [facility] note) - repeat BCX - CT AP w/ contrast Abscess of leg, right 02/05/20192018 Assessment & Plan (02/22/2019 3:37 PM EST): Patient has worsened leg edema R>L w/ rt side 4+ pitting edema. At [facility], US was negative for DVT. CT rt [...] w/ rt side 4+ pitting edema. At [facility], US was negative for DVT. CT rt [...] Right side has 4+ pitting edema. At [facility], US was obtained and ruled out DVT. [...] pathology. -BCx grew GNR -transplant ID consulted -[facility] was called for speciation, it will [...] concerning for pathology. -Transplant ID is following -[facility] will fax culture data, commented [...] 8:59 AM EST): Hyponatremic to 132 at [facility]. Na 128, constant through hospitalization. - daily BMP Assessment & Plan (02/09/2019 11:02 AM EDT): Hyponatremic to 132 at [facility]. Na 128, constant through hospitalization. - daily BMP Assessment & Plan (02/05/2019 5:51 AM EDT): Hyponatremic to 132 at [facility]. - repeat BMP in am and redose diuretics Assessment & Plan (02/05/2019 5:47 AM EDT): Hyponatremic to 132 at [facility]. - repeat BMP in am [...] Presented again on day of admission to [facility] with worsening shortness of breath where a CT chest PE protocol was performed which showed no evidence of intraluminal filling defect though did make note of large left- sided pleural effusion with associated complete left lower lobe collapse as well as partial left upper lobe collapse. Due to recurrent pleural effusion and likely need for repeat thoracentesis patient was transferred [facility]. On arrival patient without any increased work of breathing and saturating well on room air. Exam reveals absent breath sounds in the left middle and lower lung perez with increased dullness to percussion. 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 -We will have CT scan from [facility] uploaded into our system for review -CXR on 07/11 showed large left pleural effusion -IP consulted for thoracentesis. Will send fluid studies. -Requested [facility] records of pleural fluid studies from 07/06 -Supplemental oxygen as needed to maintain sats greater than 92% Assessment & Plan (01/19/2019 10:11 AM EDT): Patient is s/p thoracentesis after large left lung effusion unchanged from previous admission seen on imaging. Site of thoracentesis covered with bandage that is dry and intact. Chart review of his prior hospitalization at [facility] revealed that he had thoracentesis on January 11, 2019, during which 1.6 L was taken out, and fluid study revealed white blood cell count of 2650 and segs of 35%, suggesting exudative fluid, although it seems that no paracentesis was done at [facility]. - decreased breath sounds in middle and [...] procedure in 2017. Most recent hospitalization at [facility] was in January 2019 when [...] Of note, reached out to [facility] to double check if paracentesis was done, and whether there is a fluid study of the sample, however it appears that no paracentesis was done at [facility]. - Start Lactulose increased to 20 g [...] 20mg daily and spironolactone 50mg daily. At [facility], patient received IV lasix 40mg daily. - [...] 20mg daily and spironolactone 50mg daily. At [facility], patient received IV lasix 40mg daily. - [...] Encounters Date Type Department Care Team Description 12/22/2024 Results Follow-Up [facility] Transplant Department [address] [place] [address] 432[address] Erika Bonds RN 12/22/2024 Abstract [facility] Transplant Department [address] [place] [address] 94[address] Dylan Phelps MD 12/12/2024 Orders Only [facility] Transplant Department [address] [place] [address] 24154 Erika Bonds RN Encounter for immunosuppression management after liver transplant (HCC) (Primary Dx); History of hepatocellular carcinoma 11/25/2024 Abstract [facility] Transplant Department [address] [place] [address] 85[address] Dylan Phelps MD 11/24/2024 Results Follow-Up [facility] Transplant Department [address] [place] [address] 28921 Erika Bonds RN 11/24/2024 Abstract [facility] Transplant Department [address] [place] [address] 16420 Dylan Phelps MD 10/21/2024 Refill [facility] Liver Transplant Services [address] [place] [address] 26735 Dylan Phelps MD History of liver transplant (HCC) 10/20/2024 Abstract [facility] Transplant Department [address] [place] [address] Dylan Phelps MD 09/22/2024 Abstract [facility] Transplant Department [address] [place] [address] Dylan Phelps MD 09/22/2024 Results Follow-Up [facility] Transplant Department [address] [place] [address] Erika Bonds RN 09/22/2024 Abstract [facility] Transplant Department [address] [place] [address]896 Dylan Phelps MD from Last 3 Months [...] Info) Description 02/06/2025 9:30 AM EDT Follow-Up [facility] Liver Transplant Services [address] [place] [address] Dylan Phelps MD [address] [place] [address] Health Maintenance Due Date Last [...] 11/05/2023, 05/06/2022, Additional history exists COVID-19 Vaccine (2024-2 6 season) 2024 05/06/2022, 11/25/2021, 03/25/2021, Additional [...] history exists Medical Devices Implanted Type Area Halfway House Counselor Device Identifier Shelf Expiration Date Model / Serial / Lot Shunt Transjugular Intrahepatic Portosystemic Tips Endoprosthesis [id number] Viatorr - [id number] Implanted:Qty: 1 on 07/28/2017 at [facility] Implant W L GORE 12/26/2019 [id number] / / Mesh Hernia With Strap Large Ventralex - [id number] Implanted:Qty: 1 on 03/20/2020 by Fernando Fine MD PhD at [facility] Mesh Right: Abdomen [employer] 01/15/2021 [id number] / / [id number] Stent Biliary Rx Fully Covered Self Expanding Metallic Rmv With Permalume Covering 8.5fr [id number] Wallflex - [id number] - [id number] Implanted:Qty: 1 on 11/21/2022 by Dunia Osorio MD at [facility] Stent N/A: Bile Duct [employer] 08/21/2024 [id number] / [id number] / Explanted Type Area Halfway House Counselor Device Identifier Shelf Expiration Date Model / Serial / Lot Ercp Stent-11/21/2022 Implanted:07/2022 (Quantity not on file) Explanted:06/2022 (Quantity not on file) ERCP Stent Bile Duct 1 / / Txp Internal Biliary Stent- 0 Implanted:07/20 (Quantity not on file) Explanted:07/2020 (Quantity not on file) TXP Internal Biliary Stent Bile Duct Procedures * Due to [place] state law, this organization might not be sharing negative HIV tests. Procedure Name Priority Date/Time Associated Diagnosis Comments LIVER POST EXTERNAL PANEL Routine 12/21/2024 6:38 AM EDT AFP TUMOR MARKER, OUTSIDE LAB Routine 11/23/2024 7:08 AM EDT LIVER POST EXTERNAL PANEL Routine 11/23/2024 7:08 AM EDT LIVER POST EXTERNAL PANEL Routine 10/19/2024 7:[address] CHEST W CONTRAST Routine [...] to Health Maintenance Results * Due to [place] state law, this organization might not be sharing negative HIV tests. * LIVER POST EXTERNAL PANEL (12/21/2024 6:38 AM EDT) Only the most recent of3 resultswithin the time period is included. Tacrolimus, Highly Sensitive 4.7 [facility] Sodium 137 mmol/L [facility] Potassium 4.7 [facility] Chloride 105 [facility] Carbon Dioxide [address] [facility] Glucose 224 [facility] BUN 21 mg/dL [facility] Creatinine 1.13 mg/dL [facility] Calcium 9.3 mg/dL [facility] Total Protein 6.9 g/dL [facility] Albumin 4.5 g/dL [facility] Bilirubin, Total 0.7 mg/dL [facility] Alkaline Phosphatase 135 U/L [facility] AST 30 U/L [facility] ALT 36 U/L [facility] Magnesium 1.70 mg/dL [facility] WBC 5.8 10*3/uL [facility] Hgb 14.0 [facility] Hematocrit 39.4 % [facility] Platelets 151 10*3/uL [facility] 12/21/2024 6:38 AM EDT Dylan Phelps MD LAB BLOOD ORDERABLES Final Re sult Performing Organization Address [facility]/ZIP Co de Phone Number [facility] [address] [place] [phone] * AFP Tumor Marker, Outside Lab (11/23/2024 7:08 AM EDT) Alpha Fetoprotein, Tumor Marker 1.3 [facility] Blood Structure of peripheral vein / Unknown 11/23/2024 7:08 AM EDT Dylan Phelps MD LAB BLOOD ORDERABLES Final Re sult [facility] [address] [place] [address] * CT Chest W Contrast (11/05/2023 4:35 [...] to obtain the completed interpretation. Workstation ID: [id number] Up-to-date CT equipment and radiation dose reduction techniques were employed. CTDIvol: 3.1 - 23.9 mGy. DLP: 2643 mGy-cm. The following accession numbers are related to this dose report [id number]: [id number] Narrative 11/19/2023 3:36 PM EDT Indication: 58 [...] the spine. Bilateral gynecomastia. Resulting Agency Comment [id number] Procedure Note Natasha Michaud MD - 11/19/2023 [...] possible to obtain thecompleted interpretation. Workstation ID: [id number] Up-to-date CT equipment and radiation dose reduction techniques wereemployed. CTDIvol: 3.1 - 23.9 mGy. DLP: 2643 mGy-cm. The followingaccession numbers are related to this dose report [id number]: [id number] Dylan Phelps MD [facility] PROCEDURES Final Resul t * (ABNORMAL) Basic Metabolic Panel (11/15/2022 3:07 AM EDT) NA 135 135 - 145 mmol/L 11/15/2022 4:09 AM EDT [facility] K 4.6 3.5 - 5.3 mmol/L 11/15/2022 4:09 AM EDT [facility] Cl 103 97 - 110 mmol/L 11/15/2022 4:09 AM EDT [facility] CO2 24 24 - 32 mmol/L 11/15/2022 4:09 AM EDT [facility] BUN 27(H) 7 - 23 mg/dL 11/15/2022 4:09 AM EDT [facility] Creatinine 1.05 0.60 - 1.30 mg/dL 11/15/2022 4:09 AM EDT [facility] Glucose 268(H) 70 - 99 mg/dL 11/15/2022 4:09 AM EDT [facility] Calcium 8.8 8.7 - 10.7 mg/dL 11/15/2022 4:09 AM EDT [facility] Anion Gap 8 5 - 15 11/15/2022 4:09 AM EDT [facility] eGFR 82 >=60 mL/min/1. 73m2 11/15/2022 4:09 AM EDT [facility] Comment:The estimated glomer ular [...] MD LAB BLOOD ORDERABLES Final Re sult [facility] [address] [place] [address], [place] * Microalbumin, Random Urine with Creatinine (05/17/2021 11:35 AM EST) Microalbumin, Urine 1.1 mg/dL 05/17/2021 12:34 PM EST [facility] Creatinine, Urine 97 22 - 328 mg/dL 05/17/2021 12:34 PM EST [facility] Microalb/Creat Ratio, Random Urine 11.3 <30.0 mcg/mgCr 05/17/2021 12:34 PM EST [facility] Comment: Microalbumin Reference Range: Normal <30 mcg/mg Creatinine Microalbuminuria 30-300 mcg/mg Creatinine Clinical Albuminuria >300 mcg/mg Creatinine Reference: ADA Guideline. Diabetes Care. 2004;27 (suppl 1) Urine Voided urine specimen / Unknown Non-Blood Collection / Unknown 05/17/2021 11:35 AM EST 05/17/2021 12:01 PM EST Angelita Villa MD LAB URINE ORDERABLES Final Resul t [facility] [address] [place] [address], [place] * (ABNORMAL) Hemoglobin A1c (05/17/2021 11:31 AM EST) Hemoglobin A1C 7.7(H) <5.7 % of total Hgb 05/18/2021 2:37 AM EST [facility] Comment: For someone without known diabetes, a [...] (MG/DL) 174 mg/dL 05/18/2021 2:37 AM EST [facility] eAG (MMOL/L) 9.7 mmol/L 05/18/2021 2:37 AM EST [facility] Blood Structure of peripheral vein / Unknown Venipuncture / Unknown 05/17/2021 11:31 AM EST 05/17/2021 11:40 AM EST Narrative [facility] - 05/18/2021 2:37 AM EST [facility] Received Date: Angelita Villa MD LAB BLOOD ORDERABLES Final Resul t [facility] [address] [facility] 3rd Floor, [place] [address], [place] [phone] [facility] [employer] [address] [facility] [address] Floor, [place] [address], [place] [phone] * CT Abdomen Pelvis with Contrast (05/05/2020 5:27 PM EST) Anatomical Region Laterality Modality Body Computed Tomogra phy 05/06/2020 8:40 AM EST Impressions 05/06/2020 8:50 AM EST Small fluid pocket between the incision and transverse colon which may represent developing adhesions. Recommend correlation for any signs of infection in the incision on exam. Otherwise, no CT findings that might explain patient's fever. [id number] Narrative 05/06/2020 8:50 AM EST EXAMINATION: CT [...] no CT findings that mightexplain patient's fever. [id number] Reyes Voss MD IMG CT PROCEDURES Final Result * Hepatitis C RNA, Quantitative, PCR (09/09/2019 11:52 AM EDT) Pathologist [facility] Hcv RNA, Quantitative Real Time PCR <15 NOT DETECTED NOT DETECTED IU/mL 09/14/2019 5:38 PM EDT [facility] Hepatitis C Quantitative PCR Log IU/mL <1.18 NOT DETECTED NOT DETECTED Log IU/mL 09/14/2019 5:38 PM EDT [facility] Comment: This test was performed using Real-Time Polymerase Chain Reaction. Reportable Range: 15 IU/mL to 100,000,000 IU/mL (1.18 Log IU/mL to 8.00 Log IU/mL). The analytical performance characteristics of this assay have been determined by [employer]. The modifications have not been cleared or approved by the FDA. This assay has been validated pursuant to the CLIA regulations and is used for clinical purposes. For more information on this test, go to: http://education.NXTM.Securens/faq/YEM60z3 (This link is being provided for informational/ educational purposes only.) Blood Structure of peripheral vein / Unknown Venipuncture / Unknown 09/09/2019 11:52 AM EDT 09/09/2019 12:07 PM EDT Narrative [facility] - 09/14/2019 5:38 PM EDT [facility] Received Date:[id number] Cyndi Pereira MD LAB BLOOD ORDERAB LES Final Result [facility] [address] [place] [address] 3rd Floor, [place] [address], [place] [phone] [facility] [address] Floor, [place] [address], [place] [phone] from Last 3 Months or Most Recently Relevant to Health Maintenance Insurance [facility] [employer] [address] [place] [address] [employer] [address] [place] [address] [employer] Advance Directives Documents on File Type Date Recorded Patient Addiction Nurse Expl anatchar Health Care Proxy 02/05/2019 4:40 PM [employer]ober[employer] Singleton i 01/29/19 Health Care Proxy 09/15/2018 [...] Jon Son Health Care Agent Care Teams Oncology Account Specialist Relationship Specialty Start Date End Date Agustin Mix [address] [place] [phone] PCP - General Internal Medicine 04/15/17
--- OUTSIDE RECORDS SUMMARY | 2024-12-23 14:10 | XMS_ITS | Encounter Summary ---
Author Organization [employer] Address [address] [place] [address] [address] [place] [address] Care Team Providers Care Stiff Leg Derrick Operator Name Role Phone Agustin Marrero MD Primary Care Provide r Reason for Visit * Reason Comments Med Refill Encounter Details Date Type Department Care Team ([facility] st Contact Info) Description 10/20/2023 Refill [facility]EDS [address] [place], [place] [phone] Agustin Marrero MD [address] [place] [address] Chronic midline low back pain without sciatica [...] Description 01/06/2025 11:30 AM EDT Clinical Support [facility] [address] [place] [address] Shwetha Collado RN [address] [place] [address] 02/23/2025 10:00 AM EST Office Visit [facility] [address] [place] [address] Agustin Marrero MD [address] [place] [address] 05/31/2025 8:00 AM EST Office Visit [facility] ADULT DENTAL [address] [place] [address] Catherine Antonio [address] [place] [address] documented as of this encounter Visit Diagnoses Diagnosis Chronic midline low back pain without sciatica documented in this encounter Additional Health Concerns Assessment Noted Time PHQ-9 Depression Total Score: 5 06/16/19 24 9:35 AM EST documented as of this encounter Care Teams Stiff Leg Derrick Operator Relationship Specialty Start Date End Date Agustin Marrero MD [address] [place] [address] PCP - General Internal Medicine 01/25/14 [facility] 06/13/16 documented as of this encounter
--- OUTSIDE RECORDS SUMMARY | 2024-12-23 14:10 | XMS_ITS | Encounter Summary ---
Author Organization [employer] Address [address] [place] [address] [address] [place] [address] Care Team Providers Care Journeyman Machinist Name Role Phone Agustin Marrero MD Primary Care Provide r Reason for Visit * Reason Onset Date Comments Med Refill 09/13/2024 Encounter Details Date Type Department Care Team ([facility] st Contact Info) Description 09/13/2024 Telephone [facility] [address] [place], [place] [phone] Agustin Marrero MD [address] [place], [place] [phone] Med Refill Social History Tobacco Use Types [...] 300 MG capsule To be sent to: [facility]/pharmacy [address] [place] [address] documented in this encounter Plan of Treatment Upcoming Encounters Date Type Department Care Team (Late st Contact Info) Description 01/06/2025 11:30 AM EDT Clinical Support [facility] [address] [place] [phone] Shwetha Collado RN [address] [place] [address] 02/23/2025 10:00 AM EST Office Visit [facility] [address] [place] [phone] Agustin Marrero MD [address] [place] [address] 05/31/2025 8:00 AM EST Office Visit [facility] ADULT DENTAL [address] [place] [address] Catherine Antonio [address] [place] [address] documented as of this encounter Visit Diagnoses Not on filedocumented in this encounter Additional Health Concerns Assessment Noted Time PHQ-9 Depression Total Score: 0 12/03/19 10:31 AM EDT documented as of this encounter Care Teams Journeyman Machinist Relationship Specialty Start Date End Date Agustin Marrero MD [address] [place] [address] PCP - General Internal Medicine 01/25/14 [facility] 06/13/16 documented as of this encounter
--- OUTSIDE RECORDS SUMMARY | 2024-12-23 14:10 | XMS_ITS | Encounter Summary ---
Author Organization [facility] Address [address] [place] [address] Care Team Providers Care Lawn Care Specialist Name Role Phone Agustin Mix Primary Care Provider + Encounter Details Date Type Department Care Team (Late st Contact Info) Description 07/23/2023 Orders Only [facility] Interventional Radiology [address] [place] [address] Pawel Sacnhez MD [address] [place] [address] Social History Tobacco Use Types Packs/Day Years [...] Info) Description 02/06/2025 9:30 AM EDT Follow-Up [facility] Transplant Services [address] [place] [address] Dylan Phelps MD [address] [place] [phone] documented as of this encounter Visit Diagnoses Not on filedocumented in this encounter Care Teams Lawn Care Specialist Relationship Specialty Start Date End Date Agustin Mix [address] [place] [address] PCP - General Internal Medicine 04/15/17 documented as of this encounter
--- OUTSIDE RECORDS SUMMARY | 2024-12-23 14:10 | XMS_ITS | Encounter Summary ---
Author Organization [employer] Address [address] [place] [address] 7 [place] [address] Care Team Providers Care Central Communications Specialist Name Role Phone Agustin Marrero MD Primary Care Provide r Reason for Visit * Reason Onset Date Comments Med Refill 09/05/2024 Encounter Details Date Type Department Care Team ([facility] st Contact Info) Description 09/05/2024 Telephone [facility] MEDICINE [address] [place], [place] [phone] Agustin Marrero MD [address] [place], [place] [phone] Med Refill Social History Tobacco Use Types [...] 50 MG tablet To be sent to: [facility]/pharmacy #[id number] [place] [address] documented in this encounter Plan of Treatment Upcoming Encounters Date Type Department Care Team (Late st Contact Info) Description 01/06/2025 11:30 AM EDT Clinical Support [facility]INE [address] [place] [address] Shwetha Collado RN [address] [place] [address] 02/23/2025 10:00 AM EST Office Visit [facility] [address] [place] [address] Agustin Marrero MD [address] [place] [address] 05/31/2025 8:00 AM EST Office Visit [facility] ADULT DENTAL [address] [place] [address] [place] [address] Catherine Antonio [address] [place] [address] documented as of this encounter Visit Diagnoses Not on filedocumented in this encounter Additional Health Concerns Assessment Noted Time PHQ-9 Depression Total Score: 0 12/03/19 24 10:31 AM EDT documented as of this encounter Care Teams Central Communications Specialist Relationship Specialty Start Date End Date Agustin Marrero MD [address] [place] [address] PCP - General Internal Medicine 01/25/14 [facility] 06/13/16 documented as of this encounter
--- OUTSIDE RECORDS SUMMARY | 2024-12-23 14:10 | XMS_ITS | Encounter Summary ---
Author Organization [facility] Address [address] [place] [address] Care Team Providers Care Radar Air Traffic Controller Name Role Phone Agustin Mix Primary Care Provider + Encounter Details Date Type Department Care Team (Late st Contact Info) Description 11/24/2024 Results Follow-Up [facility] Transplant Department [address] [place] [address] Erika Bonds RN Social History Tobacco Use [...] Info) Description 02/06/2025 9:30 AM EDT Follow-Up [facility] Liver Transplant Services [address] [place] [address] Dylan Phelps MD [address] [place] [address] documented as of this encounter Visit Diagnoses Not on filedocumented in this encounter Care Teams Radar Air Traffic Controller Relationship Specialty Start Date End Date Agustin Mix [address] [place] [address] PCP - General Internal Medicine 04/15/17 documented as of this encounter
--- OUTSIDE RECORDS SUMMARY | 2024-12-23 14:10 | XMS_ITS | Encounter Summary ---
Author Organization [facility] Address [address] [place] [address] Care Team Providers Care Cylinder Press Operator Name Role Phone Agustin Mix Primary Care Provider + Encounter Details Date Type Department Care Team (Late st Contact Info) Description 01/01/2021 Orders Only [facility] Nuclear Medicine [address] [place] [address] Sreedhar Sotelo MD [address] [place], [place] [phone] Social History Tobacco Use Types Packs/Day Years [...] Info) Description 02/06/2025 9:30 AM EDT Follow-Up [facility] Liver Transplant Services [address] [place], [place] [phone] Dylan Phelps MD [address] [place] [address] documented as of this encounter Visit Diagnoses Not on filedocumented in this encounter Care Teams Cylinder Press Operator Relationship Specialty Start Date End Date Agustin Mix [address] [place] [address] PCP - General Internal Medicine 04/15/17 documented as of this encounter
--- OUTSIDE RECORDS SUMMARY | 2024-12-23 14:10 | XMS_ITS | Encounter Summary ---
Author Organization [facility] Address [address] [place] [address] Care Team Providers Care Reel Stripper Name Role Phone Agustin Mix Primary Care Provider + Encounter Details Date Type Department Care Team (Late st Contact Info) Description 02/29/2020 Orders Only [facility] Ultrasound [address] [place] [address] Sreedhar Sotelo MD [address] [place], [place] [phone] Social History Tobacco Use Types Packs/Day Years [...] Info) Description 02/06/2025 9:30 AM EDT Follow-Up [facility] Liver Transplant Services [address] [place] [address] Dylan Phelps MD [address] [place] [address] documented as of this encounter Visit Diagnoses Not on filedocumented in this encounter Additional Health Concerns Infection Onset Date Last Indicated Resolved Time COVID-19 - Suspected infection 03/05/2020 03/17/2020 03/17/2020 7:55 PM EST COVID-19 - Confirmed infection 05/01/2020 05/07/2020 06/01/2020 5:06 PM EST COVID-19 - Suspected infection 05/10/2020 05/10/2020 05/24/2020 10:34 PM EST documented as of this encounter Care Teams Reel Stripper Relationship Specialty Start Date End Date Agustin Mix [address] [place] [address] PCP - General Internal Medicine 04/15/17 documented as of this encounter
--- OUTSIDE RECORDS SUMMARY | 2024-12-23 14:10 | XMS_ITS | Encounter Summary ---
Author Organization [employer] Address [address] [place] [address] [address] [address] Care Team Providers Care Ceramics Machine Operator Name Role Phone Agustin Marrero MD Primary Care Provide r Encounter Details Date Type Department Care Team (Latest Contact Info) Description 09/06/2018 Abstract [facility] CONVERSIONS Dental, Provider, DDS Social History [...] Description 01/06/2025 11:30 AM EDT Clinical Support [facility] MEDICINE [address] [place] [address] Shwetha Collado RN [address] [place] [address] 02/23/2025 10:00 AM EST Office Visit [facility] MEDICINE [address] [place] [address] Agustin Marrero MD [address] [place] [address] 05/31/2025 8:00 AM EST Office Visit [facility] ADULT DENTAL [address] [place] [address] Catherine Antonio [address] [place] [address] documented as of this encounter Visit Diagnoses Not on filedocumented in this encounter Care Teams Ceramics Machine Operator Relationship Specialty Start Date End Date Agustin Marrero MD 230 [place] [address] PCP - General Internal Medicine 01/25/14 [facility] 06/13/16 documented as of this encounter
--- OUTSIDE RECORDS SUMMARY | 2024-12-23 14:10 | XMS_ITS | Encounter Summary ---
Author Organization [employer] Address [address] [place] [address] [address] [place] [address] Care Team Providers Care Retail Pharmacy Merchandiser Name Role Phone Agustin Marrero MD Primary Care Provide r Reason for Visit * Reason Comments Med Refill Encounter Details Date Type Department Care Team ([facility] st Contact Info) Description 10/28/2023 Refill [facility] MEDICINE [address] [place], [place] [phone] Lela uW MD [address] [place], [place] [phone] Primary insomnia Social History Tobacco Use Types [...] Clinical Support [facility] MEDICINE [address] [place] [address] Shwetha Collado RN [address] [place] [address] 02/23/2025 10:00 AM EST Office Visit [facility] MEDICINE [address] [place] [address] Agustin Marrero MD [address] [place] [address] 05/31/2025 8:00 AM EST Office Visit [facility] ADULT DENTAL [address] [place] [address] Catherine Antonio [address] [place] [address] documented as of this encounter Visit Diagnoses Diagnosis Primary insomnia Persistent disorder of initiating or maintaining sleep documented in this encounter Additional Health Concerns Assessment Noted Time PHQ-9 Depression Total Score: 5 06/16/19 24 9:35 AM EST documented as of this encounter Care Teams Retail Pharmacy Merchandiser Relationship Specialty Start Date End Date Agustin Marrero MD [address] [place] [address] PCP - General Internal Medicine 01/25/14 [facility] 06/13/16 documented as of this encounter
--- OUTSIDE RECORDS SUMMARY | 2024-12-23 14:10 | XMS_ITS | Encounter Summary ---
Author Organization [employer] Address [address] [place] [address] [place] [address] Care Team Providers Care Linen Room Worker Name Role Phone Agustin Marrero MD Primary Care Provide r Encounter Details Date Type Department Care Team (Latest Contact Info) Description 07/16/2020 Abstract [facility] CONVERSIONS Dental, Provider, DDS Social [...] 01/06/2025 11:30 AM EDT Clinical Support [facility] MEDICINE [address] [place] [address] Shwetha Collado RN [address] [place] [address] 02/23/2025 10:00 AM EST Office Visit [facility] MEDICINE [address] [place] [address] Agustin Marrero MD [address] [place] [address] 05/31/2025 8:00 AM EST Office Visit [facility] ADULT DENTAL [address] [place] [address] Catherine Antonio [address] [place] [address] documented as of this encounter Visit Diagnoses Not on filedocumented in this encounter Care Teams Linen Room Worker Relationship Specialty Start Date End Date Agustin Marrero MD 230 [facility] [place] [address] PCP - General Internal Medicine 01/25/14 [facility] 06/13/16 documented as of this encounter
--- OUTSIDE RECORDS SUMMARY | 2024-12-23 14:10 | XMS_ITS | Patient Health Record ---
Author Organization [facility] [place] Address [address] [facility] [place] [address] Care Team Providers Care Dog Sitter Name Role Phone Nura Connelly MD, Agustin Primary Care Provide r Unavailable Sun Jj Unavailable [phone] Yovanny Long Unavailable [phone] Allergies No Known Allergies Results Component Value [...] Duration: 365 days 11/03/2024 Active Vitamin D3 062940 UNIT/GM as directed Active Losartan Potassium 25 [...] Problem Acquired hammer toe of right foot (3649283210935023 ) Other hammer toe(s) (acquired), right foot (M20.41) Active confirmed Problem Acquired hammer toe of left foot (4093318861741102 ) Other hammer toe(s) (acquired), left foot (M20.42) Active confirmed Problem Polyneuropathy due to type 2 diabetes mellitus (563015875) Type 2 diabetes mellitus with diabetic polyneuropathy (E11.42) Active confirmed Vital Signs Heart Rate 68 /min 06/17/2024 Blood pressure diastolic 81 mm Hg 11/03/2024 Height 5ft 7in in 11/03/2024 Blood pressure systolic 134 mm Hg 11/03/2024 Weight 205 lbs 11/03/2024 BMI 32.1 kg/m2 11/03/2024 Procedures Procedure Date Ordered Date Performed Result Body Sit e 88815-TVYZFJA NAIL, 6 OR MORE 03/10/2024 N/A [id number] NAIL, 6 OR MORE 06/17/2024 N/A Encounters Encounter Location Date [facility] [address] [place] [phone] 03/10/2024 Yovanny Long Onychomycosis B35.1 ; Xerosis of skin L85.3 ; Pain in right toe(s) M79.674 and Pain in left toe(s) M79.[address] [facility] [address] [place] [address] [place] [address] 06/17/2024 Yovanny Long Onychomycosis B35.1 and Type 2 diabetes mellitus with other diabetic neurological complication E11.49 [facility] [address] [place] [address] [facility] [address] 11/03/2024 Sun Jj Type 2 diabetes mellitus with diabetic polyneuropathy E11.42 ; Other hammer toe(s) (acquired), right foot M20.41 ; Tinea unguium B35.1 ; Tinea pedis of both feet B35.3 and Other hammer toe(s) (acquired), left foot M20.[address] [facility] [phone] 03/10/2024 Yovanny [facility] [place] [address] [place] [address] 05/26/2024 Yovanny [facility] [address] 11/03/2024 Sun Jj Assessments Encounter Date Diagnosis (ICD Code) Assessment Notes Treatment Notes Treatment Clinical Notes Section Notes 03/10/2024 Xerosis of skin (ICD-10 - L85.3) Application of Milliken-Soothe skin lotion to his feet 03/10/2024 Onychomycosis [...] M20.42) 05/26/2024 Other 06/17/2024 Other Application of Milliken-Soothe skin lotion to his feet Plan Of Treatment Pending Test Test Name Order Date [id number] NAIL, 6 OR MORE 03/10/2024 [id number] NAIL, 6 OR MORE 06/17/2024 Next Appt Details Provider Name:Sun Kenney Silver kenney, 01/12/2025 10:30:00 AM, [address] [facility], [place], [address], Insurance Providers Payer Name Payer Address Payer Phone Subscriber Number Group Number Insured Name Patient Relationship to Insured Coverage Start Date Coverage End Date [facility] [employer] Claims [address] [place] [id number] Edward Jon Self - patient is the insured Medical (General) History Medical History History ICD Code Back,Hip,and Knee pain Broken bones Cataracts covid-19 Dementia Depression Diabetic Gall bladder problems Hiatal hernia High Blood Pressure Liver disease Psychiatric disorder Surgical History Surgery Date(Month/Year) back surgery 02/2024
--- OUTSIDE RECORDS SUMMARY | 2024-12-23 14:10 | XMS_ITS | Encounter Summary ---
Author Organization [employer] Address [address] [place] [address] [address] Care Team Providers Care Summer Sessions Director Name Role Phone Agustin Marrero MD Primary Care Provide r Reason for Visit * Reason Onset Date Comments Med Refill 03/01/2024 Encounter Details Date Type Department Care Team ([facility] st Contact Info) Description 03/01/2024 Telephone [facility] MEDICINE [address] [place], [place] [phone] Agustin Marrero MD [address] [place], [place] [phone] Med Refill Social History Tobacco Use Types [...] 2:22 PM EST Medication was sent to [facility][id number] on 02/29/24. * Telephone Encounter - Manjeet Mclaughlin - 03/01/2024 2:17 PM EST TC from pt requesting medication refill. Medications needing refill : 1- zolpidem (Ambien) 10 MG tablet To be sent to: [facility]/pharmacy #[id number] documented in this encounter Plan of Treatment Upcoming Encounters Date Type Department Care Team (Late st Contact Info) Description 01/06/2025 11:30 AM EDT Clinical Support [facility] MEDICINE [address] [place] [address] Shwetha Collado RN [address] [place] [address] 02/23/2025 10:00 AM EST Office Visit [facility] MEDICINE [address] [place] [address] Agustin Marrero MD [address] [place] [address] 05/31/2025 8:00 AM EST Office Visit [facility] ADULT DENTAL [address] [place], [place] [phone] Catherine Antonio [address] [place], [place] [phone] documented as of this encounter Visit Diagnoses Not on filedocumented in this encounter Additional Health Concerns Assessment Noted Time PHQ-9 Depression Total Score: 0 12/03/19 10:31 AM EDT documented as of this encounter Care Teams Summer Sessions Director Relationship Specialty Start Date End Date Agustin Marrero MD [address] [place] [address] PCP - General Internal Medicine 01/25/14 [facility] 06/13/16 documented as of this encounter
--- OUTSIDE RECORDS SUMMARY | 2024-12-23 14:10 | XMS_ITS | Clinical Summary ---
Author Organization [employer] Address [address] [place] [address] 7[address] [place] [address] Care Team Providers Care Marketing Ambassador Name Role Phone Agustin Marrero MD Primary Care Provide r Allergies No known active allergies Medications Blood Glucose Monitoring Suppl ([employer] [place] Lite) w/Device kit TEST 1 TIMES BY INTRADERMAL ROUTE EVERY DAY Active Continuous Blood Gluc Office Nurse Practitioner ([employer] [place] [employer] [place]) device Active ferrous sulfate 325 (65 Fe) [...] complication, with long-term current use of insulin ([facility]) USE 1 EACH DIRECTED [...] complication, with long-term current use of insulin ([facility]) USE DIRECTED EVERY 14 [...] stripIndications: Type 2 diabetes mellitus without complications ([facility]) USE TO TEST BLOOD SUGAR THREE TIMES DAILY 300 strip 3 025 Active cholecalciferol (Vitamin D3) 25 MCG (1000 UT) tabletIndications :Type 2 diabetes mellitus without complication, with long-term current use of insulin ([facility]) TOME 1 TABLETA POR VIA ORAL TODOS LOS QUINONES 90 tablet 1 025 Active NovoLOG FLEXPEN 100 UNIT/ML penIndications:Ty pe 2 diabetes mellitus without complication, with long-term current use of insulin ([facility]) Use Insulin as per [...] DAILY NEEDED. 12 tablet 4 025 Active gabapentin (Neurontin) 300 MG capsuleIndication s:Chronic midline low back pain without sciatica TAKE 1 CAPSULE BY MOUTH TWICE A DAY 60 capsule 025 Active sildenafil (Viagra) 100 MG tablet TAKE 1 TABLET 1 HOUR BEFORE SEXUAL RELATIONS ONCE DAILY NEEDED. 12 tablet 4 025 2024 Discontinued gabapentin (Neurontin) 300 MG capsuleIndication s:Chronic midline low back pain without sciatica TAKE 1 CAPSULE BY MOUTH TWICE A DAY 60 capsule 025 2024 Discontinued zolpidem (Ambien) 10 MG [...] midline low back pain without sciatica Last SOFTWARE DEVELOPMENT LEADER Agreement: 09/01/23 Normal oral exam 12/17/2023 Class [...] for mildly dilated CBD. ERCP 11/21/2022 at [facility] showed single severe biliary [...] CBD. 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 The stricture was post-surgical. A biliary sphinterotomy was performed. A temporary stent was placed in the CBP They recommended to repeat ERCP in 3 months to remove stent. Pt is already scheduled for 02/20/2023 for ENDOSCOPIC RETROGRADE CHOLANGIOPANCREATOGRAPHY WITH REMOVAL OF FOREIGN BODY(S)/STENT(S)/PANCREATIC DUCT(S) WITH POSSIBLE MODERATE SEDATION [02744 (CPT )] Partial edentulism 01/14/2023 Hospital discharge [...] CBD. Pt is s/p ERCP 11/21/2022 at [facility] Impression: A single severe [...] local wound injections. He was seen by acquisition specialist at [facility] who discussed that he [...] local wound injections. He was seen by acquisition specialist at [facility] who discussed that he [...] was refer to the Pain Clinic at [facility] he has an appointment [...] >400 20 units He was discharged from [facility] diabetes clinic due to non compliance. He isunder the care of [facility] Endocrinology given that he is a liver transplant patient, last seen 2024. Hgb A1c 07/05/2024: 7.2 from 7 Eye exam ordered previous visit Microalbumin 04/06/2024 was 68 Foot check risk of zero Pt advised to: adhere to diabetic diet Previous visit pt was referred to Assembling Machine Operator and DE Plan: continue current regimen Pt [...] >400 20 units He was discharged from [facility] diabetes clinic due to non compliance. He isunder the care of [facility] Endocrinology given that he is a liver transplant patient, last seen 2024. Hgb A1c 04/05/2024: 7 from 7.4 Eye exam ordered previous visit Microalbumin 11/01/2020 was 43 , ordered today Foot check risk of zero Pt advised to: adhere to diabetic diet Previous visit pt was referred to Assembling Machine Operator and DE Plan: continue current regimen Pt [...] >400 20 units He was discharged from [facility] diabetes clinic due to non compliance. He isunder the care of [facility] Endocrinology given that he is a liver transplant patient, last seen 04/21/2023. Hgb A1c 12/03/2023: 7.4 from 7.1 Eye exam ordered previous visit Microalbumin 11/01/2020 was 43 Foot check risk of zero Pt advised to: adhere to diabetic diet Previous visit pt was referred to Assembling Machine Operator and DE Plan: continue current regimen Pt [...] >400 20 units He was discharged from [facility] diabetes clinic due to non compliance. He isunder the care of [facility] Endocrinology given that he is a liver transplant patient, last seen 04/21/2023. Hgb A1c 06/16/2023: 7.1 Eye exam ordered previous visit Microalbumin 11/01/2020 was 43 Foot check risk of zero Pt advised to: adhere to diabetic diet Previous visit pt was referred to Assembling Machine Operator and DE Plan: continue current regimen Pt [...] >400 20 units He was discharged from [facility] diabetes clinic due to non compliance. He is supposed to be under the care of [facility] Endocrinology given that he is a liver transplant patient, last seen 08/01/2021. He had an appointment scheduled in August but he no showed. Today he tells me he will stay at [facility] Hgb A1c 02/12/2023 was 6.7 Eye exam ordered previous visit Microalbumin 11/01/2020 was 43 Foot check risk of zero Pt advised to: adhere to diabetic diet Previous visit pt was referred to Assembling Machine Operator and DE Plan: continue current regimen Pt [...] >400 20 units He was discharged from [facility] diabetes clinic due to non compliance. He is supposed to be under the care of [facility] Endocrinology given that he is a liver transplant patient, last seen 08/01/2021. He had an appointment scheduled in August but he no showed. Today he tells me he will stay at [facility] Hgb A1c 09/02/2021 was 6.5 Eye exam ordered previous visit Microalbumin 11/01/2020 was 43 Foot check risk of zero Pt advised to: adhere to diabetic diet Previous visit pt was referred to Assembling Machine Operator and DE Plan: continue current regimen check [...] >400 20 units He was discharged from [facility] diabetes clinic due to non compliance He is now under the care of [facility] Endocrinology given that he is a liver transplant patient, last seen 08/01/2021 Hgb A1c 09/02/2021 was 6.5 Eye exam ordered previous visit Microalbumin 11/01/2020 was 43 Foot check risk of zero Pt advised to: adhere to diabetic diet Previous visit pt was referred to Assembling Machine Operator and DE Plan: continue current regimen check [...] >400 20 units He was discharged from [facility] diabetes clinic due to non compliance He is now under the care of [facility] Endocrinology given that he is a liver transplant patient, last seen 08/01/2021 Hgb A1c 04/22/2021 was 6.2 Eye exam ordered previous visit Microalbumin 11/01/2020 was 43 Foot check risk of zero Pt advised to: adhere to diabetic diet Previous visit pt was referred to Assembling Machine Operator and DE Plan: continue current regimen check [...] the care of the liver clinic at [facility], last seen 08/01/2024 Dr Richardson Assessment & Plan (07/05/2024 10:05 AM EDT): Under the care of the liver clinic at [facility] Assessment & Plan (06/16/2023 9:29 AM EST): Under the care of the liver clinic at [facility] Assessment & Plan (04/22/2022 8:26 AM EST): Pt here for a f/u 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 was found to have elevated LFT's (AP/AST/ALT 710/141/254) during routine outpatient blood work 05/01/2020 and was referred to [facility] where his LFT's were 608/77/177 upon [...] Type Department Care Team Description 12/20/2024 Refill [facility] MED[facility] [address] [place] [address] Agustin Marrero MD Chronic midline low back pain without sciatica 12/16/2024 Telephone [facility] MED[facility]INE [address] [place] [address] Agustin Marrero MD Appointment 12/13/2024 Telephone [facility] MED[facility]INE [address] [place] [address] Agustin Marrero MD fyi 12/10/2024 Refill [facility] [address] [place] [address] Agustin Marrero MD 12/05/2024 Refill [facility] MED[facility]INE [address] [place] [address] Agustin Marrero MD Primary insomnia; Chronic midline low back pain without sciatica 12/05/2024 Refill [facility] [address] [place] [address] Agustin Marrero MD Chronic midline low back pain without sciatica 11/18/2024 Travel 11/18/2024 Telephone [facility] [address] [place] [address] Shwetha Collado, RN SOFTWARE DEVELOPMENT LEADER 11/17/2024 Results Follow-Up [facility] [address] [place] [address] Agustin Marrero MD POCT Glucose, POCT HGB A1C, TSH with Reflex to Free T4, Additional followed-up results: 6 11/16/2024 10:00 AM EDT Office Visit [facility] ADULT DENTAL [address] [place] [phone] Matty Antonioaris Missing teeth, acquired (Primary Dx); Dental calculus; Dental plaque; Generalized gingival recession; Chronic periodontal disease 11/01/2024 9:15 AM EDT Office Visit [address] [place] [address] Agustin Marrero MD Type 2 diabetes mellitus without complication, with long-term current use of insulin ([facility]) (Primary Dx); Chronic midline low back pain without sciatica; Primary insomnia; Tubular adenoma; S/P liver transplant (CMS/HCC); Essential hypertension; Pure hypercholesterolemi a; Gynecomastia 11/01/2024 Travel 10/31/2024 Telephone [facility] [address] [place] [address] Agustin Marrero MD chart prep 10/25/[address] [place] [address] Agustin Marrero MD Durable Medical Equipment 10/25/2024 Patient Outreach [facility] [address] [facility] [place] [address] Agustin Marrero MD Pre-visit Planning ([facility] unable to complete) 10/16/2024 Refill [facility] [address] [facility] [address] Agustin Marrero MD Chronic midline low back pain without sciatica 10/07/2024 Travel 10/07/2024 Telephone [facility] [address] [place] [address] Shwetha Collado, KATALINA SOFTWARE DEVELOPMENT LEADER 10/07/2024 Telephone [facility]INE [address] [place] [address] Shwetha Collado RN 10/04/2024 Telephone [facility] MEDICINE [address] [place] [address] Agustin Marrero MD Med Refill 10/04/2024 Telephone [facility] [address] [facility] [place] [address] Agustin Marrero MD Med Refill 10/04/2024 Refill [facility] [address] [facility] [place] [address] Agustin Marrero MD Chronic midline low back pain without sciatica; Primary insomnia 09/24/2024 Refill [facility] [address] [facility] [place] [address] Agustin Marrero MD Type 2 diabetes mellitus without complication, with long-term current use of insulin ([facility]) from Last 3 Months Immunizations Immunization Administration [...] Support [facility] [address] [place] [address] Shwetha Collado, KATALINA [address] [place] [address] 02/23/2025 10:00 AM EST Office Visit [facility]INE [address] [place] [address] Agustin Marrero MD [address] [place] [phone] 05/31/2025 8:00 AM EST Office Visit [facility] ADULT DENTAL [address] [place] [address] Catherine Antonio [address] [place] [address] Health Maintenance Due Date Last Done Comments [...] history exists Depression Screening 11/01/2025 11/01/2024, 11/02/19 SDOH Screening 11/01/2025 11/01/2024 Alcohol/Substance Use Screening [...] complication, with long-term current use of insulin ([facility]) POCT GLUCOSE Routine 11/01/2024 9:33 AM EDT Type 2 diabetes mellitus without complication, with long-term current use of insulin ([facility]) PERIODIC ORAL EVALUATION - ESTABLISHED PATIENT Routine 05/17/2024 10:00 AM EST ALBUMIN, RANDOM URINE W/CREATININE Routine 04/06/2024 8:10 AM EST Type 2 diabetes mellitus without complication, with long-term current use of insulin ([facility]) LIPID PANEL, STANDARD Routine 04/06/2024 8:10 AM EST Type 2 diabetes mellitus without complication, with long-term current use of insulin ([facility]) BITEWINGS - 4 RADIOGRAPHIC IMAGES Routine 10/13/2023 11:00 AM EDT HM COLONOSCOPY Routine 06/28/2021 from Last 3 Months or Most Recently Relevant to Health Maintenance Results * Prolactin, Dilution Study (11/01/2024 10:10 AM EDT) Prolactin, Undiluted 5.4 2.0 - 18.0 ng/mL [facility] Prolactin, Diluted SEE NOTE 2.0 - 18.0 ng/mL [facility] Comment:Result confirmed by 1:100 dilution. No high dosehook effect detected.Prolactin dilution studies are done to determine ifthere is a high-dose hook effect (i.e. a non-linearassay response due to a very high concentration ofProlactin). This is reported to occur at Prolactinconcentrations at or above 30,000 ng/mL.This test is not recommended for identifyingmacroprolactin. The [facility], Prolactin, Total and Monomeric is therecommended test (Order code [id number]).THIS TEST WAS PERFORMED AT:[facility] [address] [id number] MONTES MD Blood Venous blood specimen / Unknown 11/01/2024 10:10 AM EDT 11/01/2024 11:06 AM EDT Agustin Connelly MD LAB BLOOD ORDERABLES Final Result Performing Organization Address [facility]/ZIP Co de Phone Number [facility] [address] [place] [phone] * TSH with Reflex to Free T4 (11/01/2024 10:10 AM EDT) TSH reflex Free T4 1.17 0.32 - 4.0 uIU/mL [facility] Blood Venous blood specimen / Unknown 11/01/2024 10:10 AM EDT 11/01/2024 11:06 AM EDT Agustin Connelly MD LAB BLOOD ORDERABLES Final Result Performing Organization Address [facility] Co de Phone Number [facility] [address] [place] [phone] * Estradiol (11/01/2024 10:10 AM EDT) Estradiol Ultra Sensitive 21 < OR = 29 pg/mL [facility] Comment:This test was develo ped and its analytical performancecharacteristics have been determined by [employer].It has not been cleared or approved by the FDA. This assayhas been validated pursuant to the CLIA regulations and isused for clinical purposes.THIS TEST WAS PERFORMED AT:[facility]/[employer] [id number] EMILY SALDAÑA [id number] PHILIPPE MD,PHD,TR Blood Venous blood specimen / Unknown 11/01/2024 10:10 AM EDT 11/01/2024 11:06 AM EDT Agustin Connelly MD LAB BLOOD ORDERABLES Final Result [facility] [address] [place] [address] [phone] * (ABNORMAL) Testosterone, Free (Dialysis) And Total, MS (11/01/2024 10:10 AM EDT) Testosterone, Total 212(A) 250 - 1100 ng/dL [facility] Comment:For additional infor bina, please refer [email or web address](This link is being provided for informational/educational purposes only.)This test was developed and its analytical performancecharacteristics have been determined by [facility]. It hasnot been cleared or approved by the U.S. Food and DrugAdministration. This assay has been validated pursuantto the CLIA regulations and is used for clinicalpurposes. Testosterone, Free 25.0(A) 35.0 - 155.0 pg/mL [facility] Comment:This test was develo ped and its analytical performancecharacteristics have been determined by [facility] [place], [place]. It hasnot been cleared or approved by the U.S. Food and DrugAdministration. This assay has been validated pursuantto the CLIA regulations and is used for clinicalpurposes.THIS TEST WAS PERFORMED AT:[facility] [id number] [place] [address]SBAOMCVRITU CLAY MD,PHD Blood Venous blood specimen / Unknown 11/01/2024 10:10 AM EDT 11/01/2024 11:06 AM EDT Agustin Connelly MD LAB BLOOD ORDERABLES Final Result [facility] [address] [place] [address] [phone] * (ABNORMAL) LH (11/01/2024 10:10 AM EDT) Lutenizing Hormone 23.5(A) 1.6 - 15.2 mIU/mL [facility] Comment:THIS TEST WAS PERFOR MED AT:[facility] [place] [id number] MONTES MD Blood Venous blood specimen / Unknown 11/01/2024 10:10 AM EDT 11/01/2024 11:06 AM EDT Agustin Connelly MD LAB BLOOD ORDERABLES Final Result Performing Organization Address [facility] Co de Phone Number [facility] [address] [place] [address] [phone] * (ABNORMAL) FSH (11/01/2024 10:10 AM EDT) Follicle Stimulating Hormone 42.0(A) 1.4 - 12.8 mIU/mL [facility] Comment:THIS TEST WAS PERFOR MED AT:[facility] [address] [id number] MONTES MD Blood Venous blood specimen / Unknown 11/01/2024 10:10 AM EDT 11/01/2024 11:06 AM EDT Agustin Connelly MD LAB BLOOD ORDERABLES Final Result Performing Organization Address [facility] Co de Phone Number [facility] [address] [place] [address] [phone] * (ABNORMAL) Comprehensive Metabolic Panel (11/01/2024 10:10 AM EDT) Sodium 141 135 - 145 mmol/L [facility] Potassium 4.8 3.3 - 5.1 mmol/L [facility] Chloride 106 96 - 108 mmol/L [facility] Carbon Dioxide 27 22 - 29 mmol/L [facility] Anion Gap 13 12 - 20 [facility] Urea Nitrogen (BUN) 21(H) 9 - 16 mg/dL [facility] Creatinine, Serum 1.28 0.5 - 1.4 mg/dL [facility] Estimated Glomerular Filt Rate 57 [facility] Comment:Chronic Kidney Disea se: Estimated GFR < 60 mL/min/[id number] Kidney Disease: Estimated GFR < 15 mL/min/1.73m2 Glucose 183(H) 60 - 115 mg/dL [facility] Calcium 9.5 8.4 - 10.2 mg/dL [facility] Bilirubin, Total 0.5 0.0 - 1.0 mg/dL [facility] Aspartate Amino Transferase 26 5 - 37 U/L [facility] Alanine Aminotransferase 40 0 - 40 U/L [facility] Total Protein 6.9 6.5 - 8.0 g/dL [facility] Albumin Level 4.6 3.5 - 5.0 g/dL [facility] Alkaline Phosphatase 112 39 - 117 U/L [facility] Blood Venous blood specimen / Unknown 11/01/2024 10:10 AM EDT 11/01/2024 11:06 AM EDT Agustin Connelly MD LAB BLOOD ORDERABLES Final Result [facility] [address] [place] [address] [phone] * (ABNORMAL) POCT HGB A1C (11/01/2024 9:41 AM EDT) Hemoglobin A1C 7.3(A) 4.0 - 5.7 % QC Media Lot # [id number] Lot# Expiration Date ,[id number] Blood 11/01/2024 9:41 AM EDT Agustin Connelly [...] 8:10 AM EST) Creatinine, Urine 216.22 mg/dL [facility] Microalbumin Urine 68.0 mg/L [facility] Microalbum Creatinine Ratio Ur 31.4(H) <30 ug/mg cr [facility] Comment:Albumin/Creatinine R atio Reference Ranges: Normal: < 30 ug/mg creatinine Microalbuminuria: 30 - 300 ug/mg creatinineClinical Albuminuria: > 300 ug/mg creatinine Urine (Urine, Random) 04/06/2024 8:10 AM EST 04/06/2024 11:40 AM EST us Agustin Connelly MD LAB URINE ORDERABLES Final Result [facility] [address] [place] [phone] * (ABNORMAL) Lipid Panel, Standard (04/06/2024 8:10 AM EST) Triglycerides 109 <150 mg/dL [facility] Comment:Desirable Triglyceri de: less than 150 mg/dLBorderline High Triglyceride 150-199 mg/dLHigh Triglyceride: 200-499 mg/dLVery High Triglyceride: greater than or equal to 5OO mg/dL Cholesterol 177 <200 mg/dL [facility] Comment:Desirable Cholestero l: less than 200 mg/dLBorderline High Cholesterol: 200-239 mg/dLHigh Cholesterol: greater than 239 mg/dL LDL Cholesterol Calculated 115(H) <100 mg/dL [facility] Comment:Desirable LDL: less than 100 mg/dLNear Optimal/Above Optimal LDL: 110- 129 mg/dLBorderline High LDL: 130-159 mg/dLHigh LDL: 160-189 mg/dLVery High LDL: greater than or equal to 190 mg/dL HDL Cholesterol 41 >40 mg/dL [facility] Comment:Desirable HDL: great er than 40 mg/dL Note: This HDL assay may give artificially low results in patients with liver disease. Blood Venous blood specimen / Unknown 04/06/2024 8:10 AM EST 04/06/2024 11:51 AM EST Agustin Connelly MD LAB BLOOD ORDERABLES Final Result Performing Organization Address City/State/[facility] Co de Phone Number [facility] [address] [place] [address] [phone] * Colonoscopy (06/28/2021) Colonoscopy Normal Normal 06/28/2021 Narrative Shanel Bo - 06/28/2021 9:58 AM EST Recommended 3 year follow up per GI notes ( [facility] ) Historical Provider HEALTH MAINTENANCE Edited Result - Final from Last 3 Months or Most Recently Relevant to Health Maintenance Insurance [address] [place] [address] [facility] ONE CARE < 65 DENTAL - [facility] Care Teams Marketing Ambassador Relationship Specialty Start Date End Date Agustin Marrero MD [address] [place] [address] MARILYN Newman [phone] PCP - General Internal Medicine 01/25/14 [facility] 06/13/16
--- OUTSIDE RECORDS SUMMARY | 2024-12-23 14:10 | XMS_ITS | Encounter Summary ---
Author Organization [employer] Address [address] [place] [address] 7t [place] [address] Care Team Providers Care Computer Language Coder Name Role Phone Agustin Marrero MD Primary Care Provide r Reason for Visit * Reason Comments Med Refill Encounter Details Date Type Department Care Team ([facility] st Contact Info) Description 12/20/2024 Refill [facility] MEDICINE [address] [place], [place] [phone] Agustin Marrero MD 230 [place], [place] [phone] Chronic midline low back pain without sciatica [...] EDT Clinical Support [facility] MEDICINE [address] [place] [address] Shwetha Collado, KATALINA [address] [place] [address] 02/23/2025 10:00 AM EST Office Visit [facility] MEDICINE [address] [place] [address] Agustin Marrero MD [address] [place] [address] 05/31/2025 8:00 AM EST Office Visit [facility] ADULT DENTAL [address] [place] [address] Catherine Antonio [address] [place] [address] documented as of this encounter Visit Diagnoses Diagnosis Chronic midline low back pain without sciatica documented in this encounter Additional Health Concerns Assessment Noted Time PHQ-9 Depression Total Score: 0 11/02/19 25 9:25 AM EDT documented as of this encounter Care Teams Computer Language Coder Relationship Specialty Start Date End Date Agustin Marrero MD [address] [place] [address] [place] [address] PCP - General Internal Medicine 01/25/14 [facility] 06/13/16 documented as of this encounter
--- OUTSIDE RECORDS SUMMARY | 2024-12-23 14:10 | XMS_ITS | Encounter Summary ---
Author Organization [employer] Address [address] [place] [address] 7 [place] [address] Care Team Providers Care Tack Welder Name Role Phone Agustin Marrero MD Primary Care Provide r Reason for Visit * Reason Onset Date Comments Med Refill 10/04/2024 Encounter Details Date Type Department Care Team ([facility] st Contact Info) Description 10/04/2024 Telephone [facility] MEDICINE [address] [place], [place] [phone] Agustin Marrero MD 230 [place], [place] [phone] Med Refill Social History Tobacco Use Types [...] 10 MG tablet To be sent to: [facility]/pharmacy #[address] [place] [address] documented in this encounter Plan of Treatment Upcoming Encounters Date Type Department Care Team (Late st Contact Info) Description 01/06/2025 11:30 AM EDT Clinical Support [facility] MEDICINE [address] [place] [address] Shwetha Collado RN 505 [place] [address] 02/23/2025 10:00 AM EST Office Visit [facility] MEDICINE [address] [place] [address] Agustin Marrero MD 230 [place] [address] 05/31/2025 8:00 AM EST Office Visit [facility] ADULT DENTAL [address] [place] [address] Catherine Antonio 230 [place] [address] documented as of this encounter Visit Diagnoses Not on filedocumented in this encounter Additional Health Concerns Assessment Noted Time PHQ-9 Depression Total Score: 0 12/03/19 10:31 AM EDT documented as of this encounter Care Teams Tack Welder Relationship Specialty Start Date End Date Agustin Marrero MD 230 [place] [address] PCP - General Internal Medicine 01/25/14 [facility] 06/13/16 documented as of this encounter
--- OUTSIDE RECORDS SUMMARY | 2024-12-23 14:10 | XMS_ITS | Encounter Summary ---
Author Organization [employer] Address [address] [place] [address] 7 [place] [address] Care Team Providers Care Supervisor Seaming Name Role Phone Agustin Marrero MD Primary Care Provide r Encounter Details Date Type Department Care Team (Late Contact Info) Description 08/28/2022 Abstract [facility] MEDICINE [address] [place] [address] Agustin Marrero MD 230 [place] [address] Social History Tobacco Use Types Packs/Day Years [...] Description 01/06/2025 11:30 AM EDT Clinical Support [facility] MEDICINE [address] [place] [address] Shwetha Collado RN 505 [place] [address] 02/23/2025 10:00 AM EST Office Visit [facility] MEDICINE [address] [place] [address] [phone] Agustin Marrero MD 230 [place] [address] 05/31/2025 8:00 AM EST Office Visit [facility] ADULT DENTAL 230 [place] [address] Catherine Antonio [address] [place] [address] documented as of this encounter Procedures Procedure Name Priority Date/Time Associated Diagnosis Comments COLONOSCOPY Routine 06/28/2021 documented in this encounter Results * Colonoscopy (06/28/2021) Colonoscopy Normal Normal 06/28/2021 Narrative Shanel Bo - 06/28/2021 9:58 AM EST Recommended 3 year follow up per GI notes ( [facility] [place] Historical Provider [employer] MAINTENANCE Edited Result - Final documented in this encounter Visit Diagnoses Not on filedocumented in this encounter Care Teams Supervisor Seaming Relationship Specialty Start Date End Date Agustin Marrero MD 230 [place] [address] PCP - General Internal Medicine 01/25/14 [facility] 06/13/16 documented as of this encounter
--- OUTSIDE RECORDS SUMMARY | 2024-12-23 14:10 | XMS_ITS | Encounter Summary ---
Author Organization [facility] Address [address] [place] [address] Care Team Providers Care Brake Operator Sheet Metal Name Role Phone Agustin Mix Primary Care Provider + Encounter Details Date Type Department Care Team (Late st Contact Info) Description 12/30/2021 Orders Only [facility] Interventional Radiology [address] [place] [address] Avelino Otero DO 55 [place] [address] Social History Tobacco Use Types Packs/Day Years [...] Info) Description 02/06/2025 9:30 AM EDT Follow-Up [facility] Liver Transplant Services [address] [place] [address] Dylan Phelps MD [address] [place] [address] documented as of this encounter Visit Diagnoses Not on filedocumented in this encounter Care Teams Brake Operator Sheet Metal Relationship Specialty Start Date End Date Agustin Mix [address] [place] [address] PCP - General Internal Medicine 04/15/17 documented as of this encounter
--- OUTSIDE RECORDS SUMMARY | 2024-12-23 14:10 | XMS_ITS ---
Author Organization [facility] Address [address] [place] [address] Care Team Providers Care Long Chain Dyeing Machine Operator Name Role Phone Agustin Mix Primary Care Provider + Transplant Episode Liver Recipient [facility] ([place], [place]) - [facility] Organ Received: Liver Transplanted on 08/09/2019 Marked as Active Follow-up on 08/09/2019 Liver CoordinatorErika Bonds RN Phone: N/A Fax: N/A Email: N/A [place] Organ Diagnosis Organ Primary Contributory Liver Alcoholic [...] Coordinator N/A N/A N/A Dylan Phelps MD Feather Curling Machine Operator [phone] [email or web address] Sarai Diaz Referring Physician [phone] N/A Events Post-Transplant Pre-Transplant Admitted: 08/09/2019 Referred: 09/08/2016 Transplanted: 08/09/2019 Evaluation began: 7 Discharged: 08/25/2019 Committee: 10/24/2016 Center waitlisted: 7
--- OUTSIDE RECORDS SUMMARY | 2024-12-23 14:10 | XMS_ITS | Encounter Summary ---
Author Organization [employer] Address [address] [place] [address] [place] [address] Care Team Providers Care Seat Coverer Name Role Phone Agustin Marrero MD Primary Care Provide r Encounter Details Date Type Department Care Team (Latest Contact Info) Description 05/23/2019 Abstract [facility] CONVERSIONS Dental, Provider, DDS Social History [...] Description 01/06/2025 11:30 AM EDT Clinical Support [facility] MEDICINE [address] [place] [address] Shwetha Collado RN [address] [place] [address] 02/23/2025 10:00 AM EST Office Visit [facility] MEDICINE [address] [place] [address] Agustin Marrero MD 230 [place] [address] 05/31/2025 8:00 AM EST Office Visit [facility] ADULT DENTAL [address] [place] [address] Catherine Antonio [address] [place] [address] documented as of this encounter Visit Diagnoses Not on filedocumented in this encounter Care Teams Seat Coverer Relationship Specialty Start Date End Date Agustin Marrero MD 230 [place] [address] PCP - General Internal Medicine 01/25/14 [facility] 06/13/16 documented as of this encounter
--- OUTSIDE RECORDS SUMMARY | 2024-12-23 14:10 | XMS_ITS | Encounter Summary ---
Author Organization [employer] Address [address] [place] [address] [place] [address] Care Team Providers Care Chronometer Repairer Name Role Phone Agustin Marrero MD Primary Care Provide r Encounter Details Date Type Department Care Team (Latest Contact Info) Description 06/18/2021 Abstract [facility] CONVERSIONS Dental, Provider, DDS Social History Tobacco [...] EDT Clinical Support [facility] MEDICINE [address] [place] [address] Shwetha Collado RN [address] [place] [address] 02/23/2025 10:00 AM EST Office Visit [facility] MEDICINE [address] [place] [address] Agustin Marrero MD 230 [place] [address] 05/31/2025 8:00 AM EST Office Visit [facility] ADULT DENTAL 230 [place] [address] Catherine Antonio 230 [place] [address] documented as of this encounter Visit Diagnoses Not on filedocumented in this encounter Care Teams Chronometer Repairer Relationship Specialty Start Date End Date Agustin Marrero MD 230 [place] [address] PCP - General Internal Medicine 01/25/14 [facility] 06/13/16 documented as of this encounter
--- OUTSIDE RECORDS SUMMARY | 2024-12-23 14:10 | XMS_ITS | Encounter Summary ---
Author Organization [employer] Address [address] [place] [address] [place] [address] Care Team Providers Care Life Sciences Instructor Name Role Phone Agustin Marrero MD Primary Care Provide r Reason for Visit * Reason Onset Date Comments Med Refill 12/15/2022 Encounter Details Date Type Department Care Team ([facility] st Contact Info) Description 12/15/2022 Telephone [facility] MEDICINE [address] [place], [place] [phone] Agustin Marrero MD 230 [place] [address] Med Refill Social History Tobacco Use Types [...] 11:30 AM EDT Clinical Support [facility] MEDICINE [address] [place] [address] Shwetha Collado, KATALINA 505 [place] [address] 02/23/2025 10:00 AM EST Office Visit [facility] MEDICINE [address] [place] [address] Agustin Marrero MD 230 [place] [address] 05/31/2025 8:00 AM EST Office Visit [facility] ADULT DENTAL 230 [place] [address] Catherine Antonio [address] [place] [address] documented as of this encounter Visit Diagnoses Not on filedocumented in this encounter Care Teams Life Sciences Instructor Relationship Specialty Start Date End Date Agustin Marrero MD 230 [place] [address] PCP - General Internal Medicine 01/25/14 [facility] 06/13/16 documented as of this encounter
--- OUTSIDE RECORDS SUMMARY | 2024-12-23 14:10 | XMS_ITS | Encounter Summary ---
Author Organization [employer] Address [address] [place] [address] 7 [place] [address] Care Team Providers Care Training And Development Specialist Name Role Phone Agustin Marrero MD Primary Care Provide r Reason for Visit * Reason Onset Date Comments Med Refill 10/16/2022 Encounter Details Date Type Department Care Team ([facility] st Contact Info) Description 10/16/2022 Telephone [facility] MEDICINE [address] [place], [place] [phone] Agustin Marrero MD 230 [place], [place] [phone] Med Refill Social History Tobacco Use Types [...] Description 01/06/2025 11:30 AM EDT Clinical Support [facility] MEDICINE [address] [place] [address] Shwetha Collado RN 505 [place] [address] 02/23/2025 10:00 AM EST Office Visit [facility] MEDICINE [address] [place] [address] Agustin Marrero MD 230 [place] [address] 05/31/2025 8:00 AM EST Office Visit [facility] ADULT DENTAL [address] [place] [address] Catherine Antonio [address] [place] [address] documented as of this encounter Visit Diagnoses Not on filedocumented in this encounter Care Teams Training And Development Specialist Relationship Specialty Start Date End Date Agustin Marrero MD [address] [place] [address] PCP - General Internal Medicine 01/25/14 [facility] 06/13/16 documented as of this encounter
--- OUTSIDE RECORDS SUMMARY | 2024-12-23 14:11 | XMS_ITS | Encounter Summary ---
Author Organization [employer] Address [address] [place] [address] 7 [place] [address] Care Team Providers Care Community Development Specialist Name Role Phone Agustin Marrero MD Primary Care Provide r Reason for Visit * Reason Onset Date Comments Med Refill 05/26/2023 Encounter Details Date Type Department Care Team ([facility] st Contact Info) Description 05/26/2023 Telephone [facility] MEDICINE 230 [place], [place] [phone] Agustin Marrero MD 230 [place], [place] [phone] Med Refill Social History Tobacco Use Types [...] LITE test strip To be sent to: [facility]/pharmacy [address] [place] [address] - [address] [place] [address] documented in this encounter Plan of Treatment Upcoming Encounters Date Type Department Care Team (Late st Contact Info) Description 01/06/2025 11:30 AM EDT Clinical Support [facility] MEDICINE [address] [place] [address] Shwetha Collado RN 505 [place] [address] 02/23/2025 10:00 AM EST Office Visit [facility] MEDICINE [address] [place] [address] Agustin Marrero MD [address] [place] [address] 05/31/2025 8:00 AM EST Office Visit [facility] ADULT DENTAL [address] [place] [address] Catherine Antonio [address] [place] [address] documented as of this encounter Visit Diagnoses Not on filedocumented in this encounter Care Teams Community Development Specialist Relationship Specialty Start Date End Date Agustin Marrero MD [address] [place] [address] PCP - General Internal Medicine 01/25/14 [facility] 06/13/16 documented as of this encounter
--- OUTSIDE RECORDS SUMMARY | 2024-12-23 14:11 | XMS_ITS | Encounter Summary ---
Author Organization [employer] Address [address] [place] [address] 7 [place] [address] Care Team Providers Care Health And Safety Manager Name Role Phone Agustin Marrero MD Primary Care Provide r Reason for Visit * Reason Onset Date Comments Medication Question 05/11/2024 Encounter Details Date Type Department Care Team ([facility] st Contact Info) Description 05/11/2024 Telephone [facility] MEDICINE [address] [place], [place] [phone] Agustin Marrero MD 230 [place], [place] [phone] Medication Question Social History Tobacco Use Types [...] early May to continue to monitor. Called [facility] pharmacy, spoke with Faiza who stated that pt last picked up Kayexalate on 08/13/2023, Rx was written by Dr Lenin Richardson for 30g 1x weekly as directed. Called [facility] Dr Richardson's office to [...] Richardson's office and received same messageas above. Head Grinder advised Jessica to contact Dr Richardson with any questions regarding this med given that they prescribe it. Jessica stated she will be following up with their office in May once the pt gets their labs drawn. Advised her to call [facility] if any other questions or concerns [...] leaving original prescriber contact information. Dr. Richardson [facility]. . If any questions for Jessica you can contact pt at [phone]. documented in this encounter Plan of Treatment Upcoming Encounters Date Type Department Care Team (Late st Contact Info) Description 01/06/2025 11:30 AM EDT Clinical Support [facility] MEDICINE [address] [place] [address] Shwetha Collado RN [address] [place] [address] 02/23/2025 10:00 AM EST Office Visit [facility] MEDICINE [address] [place] [address] Agustin Marrero MD [address] [place] [address] 05/31/2025 8:00 AM EST Office Visit [facility] ADULT DENTAL [address] [place] [address] Catherine Antonio [address] [place] [address] documented as of this encounter Visit Diagnoses Not on filedocumented in this encounter Additional Health Concerns Assessment Noted Time PHQ-9 Depression Total Score: 0 12/03/19 10:31 AM EDT documented as of this encounter Care Teams Health And Safety Manager Relationship Specialty Start Date End Date Agustin Marrero MD [address] [place] [address] PCP - General Internal Medicine 01/25/14 [facility] 06/13/16 documented as of this encounter
--- OUTSIDE RECORDS SUMMARY | 2024-12-23 14:11 | XMS_ITS | Encounter Summary ---
Author Organization [facility] Address [address] [place] [address] Care Team Providers Care Food Consultant Name Role Phone Agustin Mix Primary Care Provider + Encounter Details Date Type Department Care Team (Late st Contact Info) Description 04/02/2020 Orders Only [facility] Interventional Radiology [address] [place] [address] Kathy Bowling MD 55 [place], [place] [phone] Social History Tobacco Use Types Packs/Day Years [...] Description 02/06/2025 9:30 AM EDT Follow-Up [facility] Liver Transplant Services [address] [place], [place] [phone] Dylan Phelps MD [address] [place] [address] documented as of this encounter Visit Diagnoses Not on filedocumented in this encounter Additional Health Concerns Infection Onset Date Last Indicated Resolved Time COVID-19 - Confirmed infection 05/01/2020 05/07/2020 06/01/2020 5:06 PM EST COVID-19 - Suspected infection 05/10/2020 05/10/2020 05/24/2020 10:34 PM EST documented as of this encounter Care Teams Food Consultant Relationship Specialty Start Date End Date Agustin Mix [address] [place] [address] PCP - General Internal Medicine 04/15/17 documented as of this encounter
--- OUTSIDE RECORDS SUMMARY | 2024-12-23 14:11 | XMS_ITS | Encounter Summary ---
Author Organization [facility] Address [address] [place] [address] Care Team Providers Care Senior Security Architect Name Role Phone Agustin Mix Primary Care Provider + Reason for Visit * Reason Onset Date Comments Results 12/22/2024 Encounter Details Date Type Department Care Team (Late st Contact Info) Description 12/22/2024 Abstract [facility] Transplant Department [address] [place] [address] Dylan Phelps MD [address] [place] [address] Social History Tobacco Use Types Packs/Day Years [...] Info) Description 02/06/2025 9:30 AM EDT Follow-Up [facility] Liver Transplant Services [address] [place] [address] Dylan Phelps MD [address] [place] [address] documented as of this encounter Procedures * Due to [place] [employer] law, this organization might not be sharing negative HIV tests. Procedure Name Priority Date/Time Associated Diagnosis Comments LIVER POST EXTERNAL PANEL Routine 12/21/2024 6:38 AM EDT documented in this encounter Results * Due to [place] state law, this organization might not be sharing negative HIV tests. * LIVER POST EXTERNAL PANEL (12/21/2024 6:38 AM EDT) Tacrolimus, Highly Sensitive 4.7 [facility] Sodium 137 mmol/L [facility] Potassium 4.7 [facility] Chloride 105 [facility] Carbon Dioxide 26 [facility] Glucose 224 [facility] BUN 21 mg/dL [facility] Creatinine 1.13 mg/dL [facility] Calcium 9.3 mg/dL [facility] Total Protein 6.9 g/dL [facility] Albumin 4.5 g/dL [facility] Bilirubin, Total 0.7 mg/dL [facility] Alkaline Phosphatase 135 U/L [facility] AST 30 U/L [facility] ALT 36 U/L [facility] Magnesium 1.70 mg/dL [facility] WBC 5.8 10*3/uL [facility] Hgb 14.0 [facility] Hematocrit 39.4 % [facility] Platelets 151 10*3/uL [facility] 12/21/2024 6:38 AM EDT us Dylan Phelps MD LAB BLOOD ORDERABLES Final Re sult [facility] [address] [place] [address] documented in this encounter Visit Diagnoses Not on filedocumented in this encounter Care Teams Senior Security Architect Relationship Specialty Start Date End Date Agustin Mix [address] [place] [address] PCP - General Internal Medicine 04/15/17 documented as of this encounter
--- OUTSIDE RECORDS SUMMARY | 2024-12-23 14:11 | XMS_ITS | Encounter Summary ---
Author Organization [employer] Address [address] [place] [address] 7 [place] [address] Care Team Providers Care Supervisor Wood Room Name Role Phone Agustin Marrero MD Primary Care Provide r Reason for Visit * Reason Onset Date Comments Error 05/12/2023 Encounter Details Date Type Department Care Team ([facility] st Contact Info) Description 05/12/2023 Telephone [facility] MEDICINE [address] [place], [place] [phone] Agustin Marrero MD [address] [place], [place] [phone] Error Social History Tobacco Use Types Packs/Day [...] 11:30 AM EDT Clinical Support [facility] MEDICINE [address] [place] [address] Shwetha Collado, KATALINA 505 [place] [address] 02/23/2025 10:00 AM EST Office Visit [facility] MEDICINE [address] [place] [address] Agustin Marrero MD [address] [place] [address] 05/31/2025 8:00 AM EST Office Visit [facility] ADULT DENTAL [address] [place] [address] Catherine Antonio [address] [place] [address] documented as of this encounter Visit Diagnoses Not on filedocumented in this encounter Care Teams Supervisor Wood Room Relationship Specialty Start Date End Date Agustin Marrero MD [address] [place] [address] PCP - General Internal Medicine 01/25/14 [facility] 06/13/16 documented as of this encounter
--- OUTSIDE RECORDS SUMMARY | 2024-12-23 14:11 | XMS_ITS | Encounter Summary ---
Author Organization [employer] Address [address] [place] [address] 7t [place] [address] Care Team Providers Care Occupational Therapy Director Name Role Phone Agustin Marrero MD Primary Care Provide r Reason for Visit * Reason Comments Med Refill Encounter Details Date Type Department Care Team ([facility] st Contact Info) Description 06/04/[address] [facility] [address] [place], [place] [phone] Natasha Nguyen MD 230 [place] [address] Gastroesophageal reflux disease, unspecified whether esophagitis present [...] 01/06/2025 11:30 AM EDT Clinical Support [facility] [address] [place] [address] Shwetha Collado, KATALINA [address] [place] [address] 02/23/2025 10:00 AM EST Office Visit [facility] [address] [place] [address] Agustin Marrero MD 230 [place] [address] 05/31/2025 8:00 AM EST Office Visit [facility] ADULT DENTAL [address] [place] [address] Catherine Antonio [address] [place] [address] documented as of this encounter Visit Diagnoses Diagnosis Gastroesophageal reflux disease, unspecified whether esophagitis present documented in this encounter Care Teams Occupational Therapy Director Relationship Specialty Start Date End Date Agustin Marrero MD [address] [place] [address] PCP - General Internal Medicine 01/25/14 [facility] 06/13/16 documented as of this encounter
--- OUTSIDE RECORDS SUMMARY | 2024-12-23 14:11 | XMS_ITS | Encounter Summary ---
Author Organization [employer] Address [address] [place] [address] 7t [place] [address] Care Team Providers Care Vacuum Pan Operator Name Role Phone Agustin Marrero MD Primary Care Provide r Reason for Visit * Reason Comments Med Refill Encounter Details Date Type Department Care Team ([facility] st Contact Info) Description 05/13/[address] [facility] [address] [place], [place] [phone] Agustin Marrero MD 230 [place] [address] Social History Tobacco Use Types Packs/Day Years [...] AM EDT Clinical Support [facility] [address] [place] [phone] Shwetha Collado RN 505 [place] [address] 02/23/2025 10:00 AM EST Office Visit [facility] [address] [place] [address] Agustin Marrero MD [address] [place] [address] 05/31/2025 8:00 AM EST Office Visit [facility] ADULT DENTAL [address] [place] [phone] Catherine Antonio [address] [place] [address] documented as of this encounter Visit Diagnoses Not on filedocumented in this encounter Additional Health Concerns Assessment Noted Time PHQ-9 Depression Total Score: 0 12/03/19 24 10:31 AM EDT documented as of this encounter Care Teams Vacuum Pan Operator Relationship Specialty Start Date End Date Agustin Marrero MD [address] [place] [address] PCP - General Internal Medicine 01/25/14 [facility] 06/13/16 documented as of this encounter
--- OUTSIDE RECORDS SUMMARY | 2024-12-23 14:11 | XMS_ITS | Encounter Summary ---
Author Organization [employer] Address [address] [place] [address] 7t [place] [address] Care Team Providers Care Router Operator Name Role Phone Agustin Marrero MD Primary Care Provide r Encounter Details Date Type Department Care Team ([facility] st Contact Info) Description 05/05/2023 Telephone [facility]INE [address] [place], [place] [phone] Agustin Marrero MD 230 [place], [place] [phone] Social History Tobacco Use Types Packs/Day Years [...] 01/06/2025 11:30 AM EDT Clinical Support [facility] [address] [place] [address] Shwetha Collado RN 505 [place] [address] 02/23/2025 10:00 AM EST Office Visit [facility] [address] [place] [address] Agustin Marrero MD [address] [place] [address] 05/31/2025 8:00 AM EST Office Visit [facility] ADULT DENTAL [address] [place] [address] Matty Antonioaris [address] [place] [address] documented as of this encounter Visit Diagnoses Not on filedocumented in this encounter Care Teams Router Operator Relationship Specialty Start Date End Date Agustin Marrero MD [address] [place] [address] PCP - General Internal Medicine 01/25/14 [facility] 06/13/16 documented as of this encounter
--- OUTSIDE RECORDS SUMMARY | 2024-12-23 14:11 | XMS_ITS | Encounter Summary ---
Author Organization [facility] Address [address] [place] [address] Care Team Providers Care Defective Cigarette Slitter Name Role Phone Agustin Mix Primary Care Provider + Encounter Details Date Type Department Care Team (Late st Contact Info) Description 12/22/2024 Results Follow-Up [facility] Transplant Department [address] [place] [address] Erika Bonds RN Social History Tobacco Use [...] Info) Description 02/06/2025 9:30 AM EDT Follow-Up [facility] Liver Transplant Services [address] [place] [address] Dylan Phelps MD [address] [place] [address] documented as of this encounter Visit Diagnoses Not on filedocumented in this encounter Care Teams Defective Cigarette Slitter Relationship Specialty Start Date End Date Agustin Mix [address] [place] [address] PCP - General Internal Medicine 04/15/17 documented as of this encounter
== END 2024-12-23 13:42 | disposition home or self-care (01) ==
LOC: HO.MAMMO 13:41
PROVIDERS: PCP Internal Medicine; Visit Provider Internal Medicine Endocrinology, Diabetes & Metabolism
DX: N62 Hypertrophy of breast (principal)
CPT/HCPCS: 77062; 77066

== ENCOUNTER → 2024-12-23 14:30 | Outpatient (BNV) | payer OTHER, SELFPAY | PROVIDERS: PCP Internal Medicine; Visit Provider Radiology Body Imaging | DX: N62 Hypertrophy of breast (principal) | CPT/HCPCS: 77066; G0279 ==

== ENCOUNTER 2025-01-05 13:04 | Outpatient (REF) | payer OTHER, SELFPAY ==
--- NOTE | ~2025-01-05 | US_ITS ---
CLINICAL HISTORY: gynecomastia US Scrotum with Doppler Comparison: None provided Findings: Right testicle normal echotexture, 3.5 x 1.5 x 2.7 cm. Left testicle normal echotexture, 3.5 x 1.4 x 2.1 cm. Color Doppler and arterial/venous spectral tracings of both testicles within normal limits. Evaluation of the right testis mildly limited by the presence of a penile pump. 2 mm left epididymal cyst. Unremarkable right epididymis. No varicoceles. Mild relative prominence of the right spermatic cord incidentally noted. No hydroceles. IMPRESSION: Unremarkable bilateral testes. This document has been electronically signed by: Fabiana Soliz MD on 01/06/2025 12:43:02
--- OUTSIDE RECORDS SUMMARY | 2025-01-05 15:07 | XMS_ITS | Encounter Summary ---
Author Organization [employer] Address [address] [place] [address] 7 [place] [address] Care Team Providers Care Manager Roofing Name Role Phone Agustin Marrero MD Primary Care Provide r Reason for Visit * Reason Onset Date Comments fyi 12/13/2024 Encounter Details Date Type Department Care Team ([facility] st Contact Info) Description 12/13/2024 Telephone [facility] MEDICINE [address] [place], [place] [phone] Agustin Marrero MD [address] [place], [place] [phone] fyi Social History Tobacco Use Types Packs/Day [...] 102/62 recorded. Call to Jessica DARDEN with [facility] at [phone], reports BP of 164/105 , pt had [...] to Edward Fonseca to triage below at [phone]. Reports took losartan after visiting nurse advised [...] to PCP as FYI and to advise [place] Team Primary care team nurses of plan [...] 8:16 AM EDT Tc from Jessica at [facility] called to inform that pt had a elevated diastolic bp , 164/105. Pt denies any cardiac symptoms. Contact Jessica at [phone] documented in this encounter Plan of Treatment Upcoming Encounters Date Type Department Care Team (Late st Contact Info) Description 01/06/2025 11:30 AM EDT Clinical Support [facility] MEDICINE [address] [place] [phone] Shwetha Collado RN 505 [place] [address] 02/23/2025 10:00 AM EST Office Visit [facility] MEDICINE [address] [place] [address] Agustin Marrero MD [address] [place] [address] 05/31/2025 8:00 AM EST Office Visit [facility] ADULT DENTAL [address] [place] [address] Catherine Antonio [address] [place] [address] documented as of this encounter Visit Diagnoses Not on filedocumented in this encounter Additional Health Concerns Assessment Noted Time PHQ-9 Depression Total Score: 0 07/15/20 25 9:25 AM EDT documented as of this encounter Care Teams Manager Roofing Relationship Specialty Start Date End Date Agustin Marrero MD [address] [place] [address] PCP - General Internal Medicine 01/25/14 [facility] 06/13/16 documented as of this encounter
--- OUTSIDE RECORDS SUMMARY | 2025-01-05 15:07 | XMS_ITS | Encounter Summary ---
Author Organization [employer] Address [address] [place] [address] 7t [place] [address] Care Team Providers Care Banana Expert Name Role Phone Agustin Marrero MD Primary Care Provide r Reason for Visit * Reason Comments Med Refill Encounter Details Date Type Department Care Team ([facility] st Contact Info) Description 11/02/2023 Refill [facility] [address] [place], [place] [phone] Lela Wu MD [address] [place], [place] [phone] Primary insomnia Social History Tobacco Use Types [...] EDT Clinical Support [facility]INE [address] [place] [address] Shwetha Collado RN 505 [place] [address] 02/23/2025 10:00 AM EST Office Visit [facility] MED[facility]INE [address] [place] [address] Agustin Marrero MD [address] [place] [address] 05/31/2025 8:00 AM EST Office Visit [facility] ADULT DENTAL [address] [place] [address] Catherine Antonio [address] [place] [address] documented as of this encounter Visit Diagnoses Diagnosis Primary insomnia Persistent disorder of initiating or maintaining sleep documented in this encounter Additional Health Concerns Assessment Noted Time PHQ-9 Depression Total Score: 5 06/16/19 24 9:35 AM EST documented as of this encounter Care Teams Banana Expert Relationship Specialty Start Date End Date Agustin Marrero MD [address] [place] [address] PCP - General Internal Medicine 01/25/14 [facility] 06/13/16 documented as of this encounter
--- OUTSIDE RECORDS SUMMARY | 2025-01-05 15:07 | XMS_ITS | Encounter Summary ---
Author Organization [employer] Address [address] [place] [address] 7t [place] [address] Care Team Providers Care Claim Clinician Name Role Phone Agustin Marrero MD Primary Care Provide r Reason for Visit * Reason Comments Med Refill Encounter Details Date Type Department Care Team ([facility] st Contact Info) Description 12/24/2023 Refill [facility] MED[facility]INE [address] [place], [place] [phone] Agustin Marrero MD [address] [place], [place] [phone] Chronic midline low back pain without sciatica [...] Clinical Support [facility] MEDICINE [address] [place] [address] Shwetha Collado, KATALINA [address] [place] [address] 02/23/2025 10:00 AM EST Office Visit [facility] MEDICINE [address] [place] [address] Agustin Marrero MD [address] [place] [address] 05/31/2025 8:00 AM EST Office Visit [facility] ADULT DENTAL [address] [place] [address] Catherine Antonio [address] [place] [address] documented as of this encounter Visit Diagnoses Diagnosis Chronic midline low back pain without sciatica documented in this encounter Additional Health Concerns Assessment Noted Time PHQ-9 Depression Total Score: 0 12/03/19 24 10:31 AM EDT documented as of this encounter Care Teams Claim Clinician Relationship Specialty Start Date End Date Agustin Marrero MD [address] [place] [address] PCP - General Internal Medicine 01/25/14 [facility] 06/13/16 documented as of this encounter
--- OUTSIDE RECORDS SUMMARY | 2025-01-05 15:07 | XMS_ITS | Encounter Summary ---
Author Organization [employer] Address [address] [place] [address] 7 [place] [address] Care Team Providers Care Radiologic Technician Name Role Phone Agustin Marrero MD Primary Care Provide r Reason for Visit * Reason Onset Date Comments Med Refill 03/01/2024 Encounter Details Date Type Department Care Team ([facility] st Contact Info) Description 03/01/2024 Telephone [facility] MED[facility]INE [address] [place], [place] [phone] Agustin Marrero MD [address] [place], [place] [phone] Med Refill Social History Tobacco Use Types [...] 03/01/2024 2:24 PM EST Received fax from [facility] requesting script clarification need directions. * Telephone Encounter - Manjeet Mclaughlin - 03/01/2024 2:21 PM EST TC from pt requesting medication refill. Medications needing refill : traMADol (Ultram) 50 MG table To be sent to: [facility]/pharmacy #[id number] documented in this encounter Plan of Treatment Upcoming Encounters Date Type Department Care Team (Late st Contact Info) Description 01/06/2025 11:30 AM EDT Clinical Support [facility] MED[facility]INE [address] [place] [address] Shwetha Collado RN [address] [place] [address] 02/23/2025 10:00 AM EST Office Visit [facility] MED[facility]INE [address] [place] [address] Agustin Marrero MD [address] [place] [address] 05/31/2025 8:00 AM EST Office Visit [facility] ADULT DENTAL [address] [place] [address] Catherine Antonio [address] [place] [address] documented as of this encounter Visit Diagnoses Not on filedocumented in this encounter Additional Health Concerns Assessment Noted Time PHQ-9 Depression Total Score: 0 12/03/19 10:31 AM EDT documented as of this encounter Care Teams Radiologic Technician Relationship Specialty Start Date End Date Agustin Marrero MD [address] [place] [address] PCP - General Internal Medicine 01/25/14 [facility] 06/13/16 documented as of this encounter
--- OUTSIDE RECORDS SUMMARY | 2025-01-05 15:07 | XMS_ITS | Encounter Summary ---
Author Organization [facility] Address [address] [place] [address] Care Team Providers Care Linotypist Name Role Phone Agustin Mix Primary Care Provider + Encounter Details Date Type Department Care Team (Late st Contact Info) Description 01/01/2021 Orders Only [facility] Nuclear Medicine [address] [place] [address] Sreedhar Sotelo MD 55 [place], [place] [phone] Social History Tobacco Use Types Packs/Day Years [...] [facility] [address] [place], [place] [phone] Dylan Phelps MD [address] [place] [address] documented as of this encounter Visit Diagnoses Not on filedocumented in this encounter Care Teams Linotypist Relationship Specialty Start Date End Date Agustin Mix [address] [place] [address] PCP - General Internal Medicine 04/15/17 documented as of this encounter
--- OUTSIDE RECORDS SUMMARY | 2025-01-05 15:07 | XMS_ITS | Clinical Summary ---
Author Organization [employer] Address [address] [place] [address] 7[address] [place] [address] Care Team Providers Care Adult Day Care Worker Name Role Phone Agustin Marrero MD Primary Care Provide r Allergies No known active allergies Medications Blood Glucose Monitoring Suppl (KidboxStyle [place] Lite) w/Device kit TEST 1 TIMES BY INTRADERMAL ROUTE EVERY DAY Active Continuous Blood Gluc Senior Energy Consultant (KidboxStyle [place] 2 [place]) device Active ferrous sulfate 325 (65 Fe) [...] OLINDA TABLETA TODOS LOS D CON LA [employer]S PRO Active naloxone (Narcan) 4 mg/0.1 mL nasal [...] complication, with long-term current use of insulin ([facility]) USE 1 EACH DIRECTED THREE TIMES EVERY DAY 100 each 11 Active BD Insulin Syringe U/F 31G X / 0.3 ML misc E11.9 FOR USE WITH [...] complication, with long-term current use of insulin ([facility]) USE DIRECTED EVERY 14 DAYS 2 each 2 Active tacrolimus (Prograf) 1 MG capsule Take 1 capsules (1mg) in the morning and 1 capsule (1mg) in the evening 180 capsule Active Gvoke HypoPen 2-Pack 0.5 MG/0.1ML injection PLEASE SEE ATTACHED FOR DETAILED DIRECTIONS Active Multiple Vitamin (Daily-Stacy Multivitamin) tablet Take 1 tablet by mouth every day 90 tablet 3 025 Active glucose blood (FREESTYLE LITE) test stripIndications: Type 2 diabetes mellitus without complications ([facility]) USE TO TEST BLOOD SUGAR THREE TIMES DAILY 300 strip 3 025 Active cholecalciferol (Vitamin D3) 25 MCG (1000 UT) tabletIndications :Type 2 diabetes mellitus without complication, with long-term current use of insulin ([facility]) TOME 1 TABLETA POR VIA ORAL TODOS LOS QUINONES 90 tablet 1 025 Active NovoLOG FLEXPEN 100 UNIT/ML penIndications:Ty pe 2 diabetes mellitus without complication, with long-term current use of insulin ([facility]) Use Insulin as per sliding [...] FOR SEVERE PAIN. 84 tablet 025 Active traMADol (Ultram) 50 MG [...] TWICE A DAY 60 capsule 025 Active zolpidem (Ambien) 10 MG tabletIndications :Primary insomnia TAKE 1 TABLET BY MOUTH AT BEDTIME NEEDED 30 tablet 025 Active omeprazole (PriLOSEC) [address] capsuleIndication s:Gastroesophagea l reflux disease, unspecified whether esophagitis present TAKE 1 CAPSULE BY MOUTH BEFORE BREAKFAST 90 capsule 1 025 Active sildenafil (Viagra) 100 MG tablet TAKE 1 TABLET 1 HOUR BEFORE SEXUAL RELATIONS ONCE DAILY NEEDED. 12 tablet 4 025 2024 Discontinued omeprazole (PriLOSEC) [address] capsuleIndication s:Gastroesophagea l reflux disease, unspecified whether esophagitis present TOME 1 CAPSULA POR VIA ORAL TODOS LOS QUINONES BEFORE A MEAL 90 capsule 1 025 2024 Discontinued gabapentin (Neurontin) 300 MG capsuleIndication s:Chronic midline low back pain without sciatica TAKE 1 CAPSULE BY MOUTH TWICE A DAY 60 capsule 025 2024 Discontinued zolpidem (Ambien) 10 MG tabletIndications :Primary insomnia TOME OLINDA TABLETA POR VIA ORAL TODOS LOS QUINONES AL [employer]COSTARSE CUANDO SEA NECESARIO Do not start before December 07, 2024. 30 tablet 025 2024 Discontinued Active Problems [...] midline low back pain without sciatica Last RECREATIONAL RESORT MANAGER Agreement: 09/01/23 Normal oral exam 12/17/2023 Class [...] for mildly dilated CBD. ERCP 11/21/2022 at [facility] showed single severe biliary stricture [...] CBD. 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 The stricture was post-surgical. A biliary sphinterotomy was performed. A temporary stent was placed in the CBP They recommended to repeat ERCP in 3 months to remove stent. Pt is already scheduled for 02/20/2023 for ENDOSCOPIC RETROGRADE CHOLANGIOPANCREATOGRAPHY WITH REMOVAL OF FOREIGN BODY(S)/STENT(S)/PANCREATIC DUCT(S) WITH POSSIBLE MODERATE SEDATION [96974 (CPT )] Partial edentulism 01/14/2023 Hospital discharge [...] CBD. Pt is s/p ERCP 11/21/2022 at [facility] Impression: A single severe biliary [...] local wound injections. He was seen by admissions specialist at [facility] who discussed that he needed [...] local wound injections. He was seen by admissions specialist at [facility] who discussed that he needed [...] was refer to the Pain Clinic at [facility] he has an appointment for [...] >400 20 units He was discharged from [facility] diabetes clinic due to non compliance. He is[facility] the [facility] given that he is a liver transplant patient, last seen 2024. Hgb A1c 07/05/2024: 7.2 from 7 Eye exam ordered previous visit Microalbumin 04/06/2024 was 68 Foot check risk of zero Pt advised to: adhere to diabetic diet Previous visit pt was referred to [facility] Plan: continue current regimen Pt [...] >400 20 units He was discharged from [facility] diabetes clinic due to non compliance. He isunder the care of [facility] given that he is a liver transplant patient, last seen 2024. Hgb A1c 04/05/2024: 7 from 7.4 Eye exam ordered previous visit Microalbumin 11/01/2020 was 43 , ordered today Foot check risk of zero Pt advised to: adhere to diabetic diet Previous visit pt was referred to [facility] Plan: continue current regimen Pt [...] >400 20 units He was discharged from [facility] diabetes clinic due to non compliance. He isunder the [place] of [facility] given that he is a liver transplant patient, last seen 04/21/2023. Hgb A1c 12/03/2023: 7.4 from 7.1 Eye exam ordered previous visit Microalbumin 11/01/2020 was 43 Foot check risk of zero Pt advised to: adhere to diabetic diet Previous visit pt was referred to [facility] Plan: continue current regimen Pt [...] >400 20 units He was discharged from [facility] diabetes clinic due to non compliance. He isunder the care of [facility] given that he is a liver transplant patient, last seen 04/21/2023. Hgb A1c 06/16/2023: 7.1 Eye exam ordered previous visit Microalbumin 11/01/2020 was 43 Foot check risk of zero Pt advised to: adhere to diabetic diet Previous visit pt was referred to [facility] Plan: continue current regimen Pt [...] >400 20 units He was discharged from [facility] diabetes clinic due to non compliance. He is supposed to be under the care of [facility] given that he is a liver transplant patient, last seen 08/01/2021. He had an appointment scheduled in August but he no showed. Today he tells me he will stay at [facility] Hgb A1c 02/12/2023 was 6.7 Eye exam ordered previous visit Microalbumin 11/01/2020 was 43 Foot check risk of zero Pt advised to: adhere to diabetic diet Previous visit pt was referred to [facility] Plan: continue current regimen Pt [...] >400 20 units He was discharged from [facility] diabetes [facility] due to non compliance. He is supposed to be under the care of [facility] given that he is a liver transplant patient, last seen 08/01/2021. He had an appointment scheduled in August but he no showed. Today he tells me he will stay at [facility] Hgb A1c 09/02/2021 was 6.5 Eye exam ordered previous visit Microalbumin 11/01/2020 was 43 Foot check risk of zero Pt advised to: adhere to diabetic diet Previous visit pt was referred to [facility] Plan: continue current regimen check [...] >400 20 units He was discharged from [facility] diabetes clinic due to non compliance He is now under the care of [facility] given that he is a liver transplant patient, last seen 08/01/2021 Hgb A1c 09/02/2021 was 6.5 Eye exam ordered previous visit Microalbumin 11/01/2020 was 43 Foot check risk of zero Pt advised to: adhere to diabetic diet Previous visit pt was referred to [facility] Plan: continue current regimen check [...] >400 20 units He was discharged from [facility] diabetes clinic due to non compliance He is now under the care of [facility] given that he is a liver transplant patient, last seen 08/01/2021 Hgb A1c 04/22/2021 was 6.2 Eye exam ordered previous visit Microalbumin 11/01/2020 was 43 Foot check risk of zero Pt advised to: adhere to diabetic diet Previous visit pt was referred to [facility] Plan: continue current regimen check [...] the care of the liver clinic at [facility], last seen 08/01/2024 Dr Richardson Assessment & Plan (07/05/2024 10:05 AM EDT): Under the care of the liver clinic at [facility] Assessment & Plan (06/16/2023 9:29 AM EST): Under the care of the liver clinic at [facility] Assessment & Plan (04/22/2022 8:26 AM EST): Pt here for a f/u 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 was found to have elevated LFT's (AP/AST/ALT 710/141/254) during routine outpatient blood work 05/01/2020 and was referred to [facility] where his LFT's were 608/77/177 upon [...] Encounters Date Type Department Care Team Description 01/01/2025 Refill [facility] [address] [place] [address] Agustin Marrero MD Gastroesophageal reflux disease, unspecified whether esophagitis present 12/27/2024 Refill [facility] [address] [place] [address] Lela Wu MD Primary insomnia 12/23/2024 Orders Only [facility] External Provider, [facility] 12/20/2024 Refill [facility] [address] [place] [address] Agustin Marrero MD Chronic midline low back pain without sciatica 12/16/2024 Telephone [facility] [address] [place] [address] Agustin Marrero MD Appointment 12/13/2024 Telephone [facility] [address] [place] [address] Agustin Marrero MD fyi 12/10/2024 Refill [facility] [address] [place] [address] Agustin Marrero MD 12/05/2024 Refill [facility] [address] [facility] [address] Agustin Marrero MD Primary insomnia; Chronic midline low back pain without sciatica 12/05/2024 Refill [facility] [address] [place] [address] Agustin Marrero MD Chronic midline low back pain without sciatica 11/18/2024 Travel 11/18/2024 Telephone [facility] [address] [place] [address] Shwetha Collado, RN RECREATIONAL RESORT MANAGER 11/17/2024 Results Follow-Up [facility] [address] [place] [address] Agustin Marrero MD POCT Glucose, POCT HGB A1C, TSH with Reflex to Free T4, Additional followed-up results: 6 11/16/2024 10:00 AM EDT Office Visit [facility] [address] [place] [address] Catherine Antonio Missing teeth, acquired (Primary Dx); Dental calculus; Dental plaque; Generalized gingival recession; Chronic periodontal disease 11/01/2024 9:15 AM EDT Office Visit [facility] [address] [place] [address] Agustin Marrero MD Type 2 diabetes mellitus without complication, with long-term current use of insulin (CMS/HCC) (Primary Dx); Chronic midline low back pain without sciatica; Primary insomnia; Tubular adenoma; S/P liver transplant (CMS/HCC); Essential hypertension; Pure hypercholesterolemia; Gynecomastia 11/01/2024 Travel 10/31/2024 Telephone [facility] [address] [place] [address] Agustin Marrero MD chart prep 10/25/2024 Telephone [facility] [address] [place] [address] Agustin Marrero MD Durable Medical Equipment 10/25/2024 Patient Outreach [facility] [address] [place] [address] Agustin Marrero MD Pre-visit Planning (SDOH unable to complete) 10/16/2024 Refill [facility] [address] [place] [address] Agustin Marrero MD Chronic midline low back pain without sciatica 10/07/2024 Travel 10/07/2024 Telephone [facility] [address] [place], [place] [phone] Shwetha Collado, RN RECREATIONAL RESORT MANAGER 10/07/2024 Telephone [facility] [address] [place] [address] Shwetha Collado, RN from Last 3 Months Immunizations Immunization Administration [...] Description 01/06/2025 11:30 AM EDT Clinical Support [facility] [address] [place] [address] Shwetha Collado RN [address] [place] [address] 02/23/2025 10:00 AM EST Office Visit [facility] [address] [place] [address] Agustin Marrero MD [address] [place] [address] 05/31/2025 8:00 AM EST Office Visit [facility] [address] [place] [address] Catherine Antonio [address] [place] [address] Health Maintenance Due Date Last Done Comments [...] 09/22/2022, 06/0 08/2022, 09/22/2022, Additional history exists Dental X-Ray: [...] 11/16/2024 Hepatitis A Vaccines Completed 07/14/2017, 12/03/19 17 [...] Procedure Name Priority Date/Time Associated Diagnosis Comments BI MAMMOGRAM DIAGNOSTIC TOMOSYNTHESIS BILATERAL Routine 12/23/2024 1:50 PM EDT Full TOPICAL APPLICATION OF FLUORIDE VARNISH Routine [...] with long-term current use of insulin (CMS/HCC) POCT GLUCOSE Routine 11/01/2024 9:33 AM EDT Type 2 diabetes mellitus without complication, with long-term current use of insulin (CMS/HCC) PERIODIC ORAL EVALUATION - ESTABLISHED PATIENT Routine 05/17/2024 10:00 AM EST ALBUMIN, RANDOM URINE W/CREATININE Routine 04/06/2024 8:10 AM EST Type 2 diabetes mellitus without complication, with long-term current use of insulin (CMS/HCC) LIPID PANEL, STANDARD Routine 04/06/2024 8:10 AM EST Type 2 diabetes mellitus without complication, with long-term current use of insulin (CMS/HCC) BITEWINGS - 4 RADIOGRAPHIC IMAGES Routine 10/13/2023 11:00 AM EDT HM COLONOSCOPY Routine 06/28/2021 from Last 3 Months or Most Recently Relevant to Health Maintenance Results * BI Mammogram Diagnostic Tomosynthesis Bilateral (12/23/2024 1:50 PM EDT) Anatomical Region Laterality Modality Breast Bilateral Mammography 12/23/2024 1:50 PM EDT Narrative 12/23/2024 4:47 PM EDT [facility] [address] [place] [address] Mammography Report Signed Patient: Edward Jon MR#: [id number] : 1965 Acct:[id number] Age/Sex: 59 / M ADM Date: 12/23/24 Loc: HO.MAMMO Attending Dr: Freddy Sunshine MD Ordering Physician: Freddy Sunshine MD Results: 2Beni gn Findings Date of Service: 12/23/24 Follow Up: 1 Year From Orig inal Mammogram Procedure(s): MM tomosynthesis diagnostic BI Accession Number(s): [id number] cc: Freddy Sunshine MD; Agustin Mix MD EXAMINATION (S): MM DIAGNOSTIC DIGITAL BREAST TOMOSYNTHESIS, BILATERAL CLINICAL INFORMATION: Bilateral gynecomastia . The patient denies focal lumps or focal pain. COMPARISON: Mammograms on March 10, 2018 and March 24, 2016. TECHNIQUE: Digital breast tomosynthesis is performed in both the mediolateral oblique and craniocaudal views along with computer-aided detection (CAD). Synthesized 2D images are generated from the tomosynthesis. FINDINGS: BILATERAL BREASTS: Redemonstration of bilateral density compatible with gynecomastia, which is less prominent than in 2018. No significant masses, suspicious calcifications or other abnormalities are seen in either breast. MM/MM tomosynthesis diagnostic BI IMPRESSION: BILATERAL BREASTS: Bilateral gynecomastia. Benign, no mammographic evidence of malignancy. Clinical follow-up is recommended. ASSESSMENT: BI-RADS 2 - Benign Findings Results were provided to the patient at time of visit by the technologist. This patient's information was entered into a reminder system with a target due date for their next mammogram. Electronically signed by: Sandra Robertson MD 12/23/2024 04:44 PM EDT Dictated By: Sandra Robertson MD Signed By: <Electronically signed by Sandra Robertson MD in OV> 12/23/24 1644 DD/ 1350 TD/TT: 12/23/24 1350 Collector Of Internal Revenue: Procedure Note Donotuseinterpreter, Image - [facility] [address] [place] [address] Mammography Report Signed Patient: Edward JonMR#: [id number] : 1965Acct:[id number] Age/Sex: 59 / MADM Date: 12/23/24 Loc: HO.MAMMO Attending Dr: Freddy Sunshine MD Ordering Physician: Freddy Sunshine MDResults: 2Beni gn Findings Date of Service: 12/23/24Follow Up: 1 Year From Orig inal Mammogram Procedure(s): MM tomosynthesis diagnostic BI Accession Number(s): [id number] cc: Freddy Sunshine MD; Agustin Mix MD EXAMINATION (S): MM DIAGNOSTIC DIGITAL BREAST TOMOSYNTHESIS, BILATERAL CLINICAL INFORMATION: Bilateral gynecomastia . The patient denies focal lumps or focal pain. COMPARISON: Mammograms on March 10, 2018 and March 24, 2016. TECHNIQUE: Digital breast tomosynthesis is performed in both the mediolateral oblique and craniocaudal views along with computer-aided detection (CAD). Synthesized 2D images are generated from the tomosynthesis. FINDINGS: BILATERAL BREASTS: Redemonstration of bilateral density compatible with gynecomastia, which is less prominent than in 2018. No significant masses, suspicious calcifications or other abnormalities are seen in either breast. MM/MM tomosynthesis diagnostic BI IMPRESSION: BILATERAL BREASTS: Bilateral gynecomastia. Benign, no mammographic evidence of malignancy. Clinical follow-up is recommended. ASSESSMENT: BI-RADS 2 - Benign Findings Results were provided to the patient at time of visit by the technologist. This patient's information was entered into a reminder system with a target due date for their next mammogram. Electronically signed by: Sandra Robertson MD 12/23/2024 04:44 PM EDT Dictated By: Sandra Robertson MD Signed By: <Electronically signed by Sandra Robertson MD in OV> 12/23/24 1644 DD/ 1350 TD/TT: 12/23/24 1350 Collector Of Internal Revenue: [facility] External Provider IMG BI PROCEDURES Final Result * Prolactin, Dilution Study (11/01/2024 10:10 AM EDT) Prolactin, Undiluted 5.4 2.0 - 18.0 ng/mL [facility] Prolactin, Diluted SEE NOTE 2.0 - 18.0 ng/mL [facility] Comment:Result confirmed by 1:100 dilution. No high dosehook effect detected.Prolactin dilution studies are done to determine ifthere is a high-dose hook effect (i.e. a non-linearassay response due to a very high concentration ofProlactin). This is reported to occur at Prolactinconcentrations at or above 30,000 ng/mL.This test is not recommended for identifyingmacroprolactin. The [facility] [facility], Prolactin, Total and Monomeric is therecommended test (Order code [id number]).THIS TEST WAS PERFORMED AT:[employer] [address] [id number] MONTES MD Blood Venous blood specimen / Unknown 11/01/2024 10:10 AM EDT 11/01/2024 11:06 AM EDT Agustin Connelly MD LAB BLOOD ORDERABLES Final Result Performing Organization Address [facility] [address]/ZIP Co de Phone Number [facility] [address] [place] [phone] * TSH with Reflex to Free T4 (11/01/2024 10:10 AM EDT) TSH reflex Free T4 1.17 0.32 - 4.0 uIU/mL [facility] Blood Venous blood specimen / Unknown 11/01/2024 10:10 AM EDT 11/01/2024 11:06 AM EDT Agustin Connelly MD LAB BLOOD ORDERABLES Final Result Performing Organization Address [facility] [address]/[facility] Co de Phone Number [facility] [address] [place] [phone] * Estradiol (11/01/2024 10:10 AM EDT) Estradiol Ultra Sensitive 21 < OR = 29 pg/mL [facility] Comment:This test was develo ped and its analytical performancecharacteristics have been determined by [employer].It has not been cleared or approved by the FDA. This assayhas been validated pursuant to the CLIA regulations and isused for clinical purposes.THIS TEST WAS PERFORMED AT:[employer] [facility]/[employer] [id number] [place] [address]SOKKBWALLY PHILIPPE MD,PHD,TR Blood Venous blood specimen / Unknown 11/01/2024 10:10 AM EDT 11/01/2024 11:06 AM EDT Agustin Connelly MD LAB BLOOD ORDERABLES Final Result [facility] [address] [place] [address] [phone] * (ABNORMAL) Testosterone, Free (Dialysis) And Total, MS (11/01/2024 10:10 AM EDT) Testosterone, Total 212(A) 250 - 1100 ng/dL [facility] Comment:For additional infor bina, please refer tohttp://education.[employer]/faq/KoslkUmsngezkmqgtLEZRARYNP788(This link is being provided for informational/educational purposes only.)This test was developed and its analytical performancecharacteristics have been determined by [facility] [place]. It hasnot been cleared or approved by the U.S. Food and DrugAdministration. This assay has been validated pursuantto the CLIA regulations and is used for clinicalpurposes. Testosterone, Free 25.0(A) 35.0 - 155.0 pg/mL [facility] Comment:This test was develo ped and its analytical performancecharacteristics have been determined by [employer] [place], [place]. It hasnot been cleared or approved by the U.S. Food and DrugAdministration. This assay has been validated pursuantto the CLIA regulations and is used for clinicalpurposes.THIS TEST WAS PERFORMED AT:[employer] [id number] [place] [address]BCKZCVRRITU CLAY MD,PHD Blood Venous blood specimen / Unknown 11/01/2024 10:10 AM EDT 11/01/2024 11:06 AM EDT Agustin Connelly MD LAB BLOOD ORDERABLES Final Result Performing Organization Address [facility] [address]/ZIP Co de Phone Number [facility] [address] [place] [phone] [phone] * (ABNORMAL) LH (11/01/2024 10:10 AM EDT) Lutenizing Hormone 23.5(A) 1.6 - 15.2 mIU/mL [facility] Comment:THIS TEST WAS PERFOR MED AT:[employer] [place] [id number] MONTES MD Blood Venous blood specimen / Unknown 11/01/2024 10:10 AM EDT 11/01/2024 11:06 AM EDT Agustin Connelly MD LAB BLOOD ORDERABLES Final Result Performing Organization Address [facility] de Phone Number [facility] [address] [place] [address] [phone] * (ABNORMAL) FSH (11/01/2024 10:10 AM EDT) Follicle Stimulating Hormone 42.0(A) 1.4 - 12.8 mIU/mL [facility] Comment:THIS TEST WAS PERFOR MED AT:[employer] [address] [id number] MONTES MD Blood Venous blood specimen / Unknown 11/01/2024 10:10 AM EDT 11/01/2024 11:06 AM EDT Agustin Connelly MD LAB BLOOD ORDERABLES Final Result Performing Organization Address [facility] [address] [facility] Co de Phone Number [facility] [address] [place] [address] [phone] * (ABNORMAL) Comprehensive Metabolic Panel (11/01/2024 10:10 AM EDT) Sodium 141 135 - 145 mmol/L [facility] Potassium 4.8 3.3 - 5.1 mmol/L [facility] Chloride 106 96 - 108 mmol/L [facility] Carbon Dioxide 27 22 - 29 mmol/L [facility] Anion Gap 13 12 - 20 [facility] Urea Nitrogen (BUN) 21(H) 9 - 16 mg/dL [facility] Creatinine, Serum 1.28 0.5 - 1.4 mg/dL [facility] Estimated Glomerular Filt Rate 57 [facility] Comment:Chronic Kidney Disea se: Estimated GFR < 60 mL/min/1.83e1Wnlzwt Kidney Disease: Estimated GFR < 15 mL/min/1.73m2 Glucose 183(H) 60 - 115 mg/dL [facility] Calcium 9.5 8.4 - 10.2 mg/dL [facility] Bilirubin, Total 0.5 0.0 - 1.0 mg/dL [facility] Aspartate Amino Transferase 26 5 - 37 U/L [facility] Alanine Aminotransferase 40 0 - 40 U/L [facility] Total Protein 6.9 6.5 - 8.0 g/dL [facility] Albumin Level 4.6 3.5 - 5.0 g/dL [facility] Alkaline Phosphatase 112 39 - 117 U/L [facility] Blood Venous blood specimen / Unknown 11/01/2024 10:10 AM EDT 11/01/2024 11:06 AM EDT us Agustin Connelly MD LAB BLOOD ORDERABLES Final Result [facility] [address] [place] [address] [phone] * (ABNORMAL) POCT HGB A1C (11/01/2024 [...] 8:10 AM EST) Creatinine, Urine 216.22 mg/dL [facility] Microalbumin Urine 68.0 mg/L [facility] Microalbum Creatinine Ratio Ur 31.4(H) <30 ug/mg cr [facility] Comment:Albumin/Creatinine R atio Reference Ranges: Normal: < 30 ug/mg creatinine Microalbuminuria: 30 - 300 ug/mg creatinineClinical Albuminuria: > 300 ug/mg creatinine Urine (Urine, Random) 04/06/2024 8:10 AM EST 04/06/2024 11:40 AM EST us Agustin Connelly MD LAB URINE ORDERABLES Final Result [facility] [address] [place], [place] [phone] * (ABNORMAL) Lipid Panel, Standard (04/06/2024 8:10 AM EST) Triglycerides 109 <150 mg/dL [facility] Comment:Desirable Triglyceri de: less than 150 mg/dLBorderline High Triglyceride 150-199 mg/dLHigh Triglyceride: 200-499 mg/dLVery High Triglyceride: greater than or equal to 5OO mg/dL Cholesterol 177 <200 mg/dL [facility] Comment:Desirable Cholestero l: less than 200 mg/dLBorderline High Cholesterol: 200-239 mg/dLHigh Cholesterol: greater than 239 mg/dL LDL Cholesterol Calculated 115(H) <100 mg/dL [facility] Comment:Desirable LDL: less than 100 mg/dLNear Optimal/Above Optimal LDL: 110- 129 mg/dLBorderline High LDL: 130-159 mg/dLHigh LDL: 160-189 mg/dLVery High LDL: greater than or equal to 190 mg/dL HDL Cholesterol 41 >40 mg/dL [facility] Comment:Desirable HDL: great er than 40 mg/dL Note: This HDL assay may give artificially low results in patients with liver disease. Blood Venous blood specimen / Unknown 04/06/2024 8:10 AM EST 04/06/2024 11:51 AM EST Agustin Connelly MD LAB BLOOD ORDERABLES Final Result [facility] [address] [place] [address] [phone] * Colonoscopy (06/28/2021) Colonoscopy Normal Normal 06/28/2021 Narrative Shanel Bo - 06/28/2021 9:58 AM EST Recommended 3 year follow up per GI notes ( [facility] ) Historical Provider HEALTH MAINTENANCE Edited Result - Final from Last 3 Months or Most Recently Relevant to Health Maintenance Insurance [address] [place] [address] FOR[facility]LY [facility] ONE CARE < 65 DENTAL - [facility] Care Teams Adult Day Care Worker Relationship Specialty Start Date End Date Agustin Marrero MD [address] [place] [address] MARILYN Newman [address] PCP - General Internal Medicine 01/25/14 [facility] 06/13/16
--- OUTSIDE RECORDS SUMMARY | 2025-01-05 15:07 | XMS_ITS | Encounter Summary ---
Author Organization [employer] Address [address] [place] [address] 7 [place] [address] Care Team Providers Care Aircraft Launch And Recovery Technician Name Role Phone Agustin Marrero MD Primary Care Provide r Reason for Visit * Reason Onset Date Comments Med Refill 09/13/2024 Encounter Details Date Type Department Care Team ([facility] st Contact Info) Description 09/13/2024 Telephone [facility] MEDICINE [address] [place], [place] [phone] Agustin Marrero MD [address] [place], [place] [phone] Med Refill Social History Tobacco Use Types [...] 300 MG capsule To be sent to: [facility]/pharmacy #[address] [place] [address] documented in this encounter Plan of Treatment Upcoming Encounters Date Type Department Care Team (Late st Contact Info) Description 01/06/2025 11:30 AM EDT Clinical Support [facility] MEDICINE [address] [place] [address] Shwetha Collado RN [address] [place] [address] 02/23/2025 10:00 AM EST Office Visit [facility] MEDICINE [address] [place] [address] Agustin Marrero MD [address] [place] [address] 05/31/2025 8:00 AM EST Office Visit [facility] ADULT DENTAL [address] [place] [address] Catherine Antonio [address] [place] [address] documented as of this encounter Visit Diagnoses Not on filedocumented in this encounter Additional Health Concerns Assessment Noted Time PHQ-9 Depression Total Score: 0 12/03/19 10:31 AM EDT documented as of this encounter Care Teams Aircraft Launch And Recovery Technician Relationship Specialty Start Date End Date Agustin Marrero MD [address] [place] [address] PCP - General Internal Medicine 01/25/14 [facility] 06/13/16 documented as of this encounter
--- OUTSIDE RECORDS SUMMARY | 2025-01-05 15:07 | XMS_ITS | Encounter Summary ---
Author Organization [employer] Address [address] [place] [address] 7 [place] [address] Care Team Providers Care Gravel Roofer Name Role Phone Agustin Marrero MD Primary Care Provide r Reason for Visit * Reason Onset Date Comments Med Refill 10/04/2024 Encounter Details Date Type Department Care Team ([facility] st Contact Info) Description 10/04/2024 Telephone [facility] MEDICINE [address] [place], [place] [phone] Agustin Marrero MD [address] [place], [place] [phone] Med Refill Social History Tobacco Use Types [...] 50 MG tablet To be sent to: [facility]/pharmacy #[address] [place] [address] documented in this encounter Plan of Treatment Upcoming Encounters Date Type Department Care Team (Late st Contact Info) Description 01/06/2025 11:30 AM EDT Clinical Support [facility] MEDICINE [address] [place] [address] Shwetha Collado RN [address] [place] [address] 02/23/2025 10:00 AM EST Office Visit [facility] MEDICINE [address] [place] [address] Agustin Marrero MD [address] [place] [address] 05/31/2025 8:00 AM EST Office Visit [facility] ADULT DENTAL [address] [place] [address] PacoCatherine [address] [place] [address] documented as of this encounter Visit Diagnoses Not on filedocumented in this encounter Additional Health Concerns Assessment Noted Time PHQ-9 Depression Total Score: 0 12/03/19 10:31 AM EDT documented as of this encounter Care Teams Gravel Roofer Relationship Specialty Start Date End Date Agustin Marrero MD [address] [place] [address] PCP - General Internal Medicine 01/25/14 [facility] 06/13/16 documented as of this encounter
--- OUTSIDE RECORDS SUMMARY | 2025-01-05 15:07 | XMS_ITS | Encounter Summary ---
Author Organization [employer] Address [address] [place] [address] 7t [place] [address] Care Team Providers Care Lodge Officer Name Role Phone Agustin Marrero MD Primary Care Provide r Reason for Visit * Reason Comments Med Refill Encounter Details Date Type Department Care Team ([facility] st Contact Info) Description 10/28/2023 Refill [facility] MEDICINE [address] [place], [place] [phone] Lela Wu MD 230 [place], [place] [phone] Primary insomnia Social History Tobacco Use Types [...] 01/06/2025 11:30 AM EDT Clinical Support [facility] MEDICINE [address] [place] [address] Shwetha Collado RN 505 [place] [address] 02/23/2025 10:00 AM EST Office Visit [facility] MEDICINE [address] [place] [address] Agustin Marrero MD [address] [place] [address] 05/31/2025 8:00 AM EST Office Visit [facility] ADULT DENTAL [address] [place] [address] Catherine Antonio [address] [place] [address] documented as of this encounter Visit Diagnoses Diagnosis Primary insomnia Persistent disorder of initiating or maintaining sleep documented in this encounter Additional Health Concerns Assessment Noted Time PHQ-9 Depression Total Score: 5 06/16/19 24 9:35 AM EST documented as of this encounter Care Teams Lodge Officer Relationship Specialty Start Date End Date Agustin Marrero MD [address] [place] [address] PCP - General Internal Medicine 01/25/14 [facility] 06/13/16 documented as of this encounter
--- OUTSIDE RECORDS SUMMARY | 2025-01-05 15:07 | XMS_ITS | Encounter Summary ---
Author Organization [facility] Address [address] [place] [address] Care Team Providers Care E Commerce Specialist Name Role Phone Agustin Mix Primary Care Provider + Encounter Details Date Type Department Care Team (Late st Contact Info) Description 07/23/2023 Orders Only [facility] Interventional Radiology [address] [place] [address] Pawel Sanchez MD [address] [place] [address] Social History Tobacco Use Types Packs/Day Years [...] [facility] Liver Transplant Services [address] [place] [address] Dylan Phelps MD [address] [place] [address] documented as of this encounter Visit Diagnoses Not on filedocumented in this encounter Care Teams E Commerce Specialist Relationship Specialty Start Date End Date Agustin Mix [address] [place] [address] PCP - General Internal Medicine 04/15/17 documented as of this encounter
--- OUTSIDE RECORDS SUMMARY | 2025-01-05 15:07 | XMS_ITS | Encounter Summary ---
Author Organization [employer] Address [address] [place] [address] 7t [place] [address] Care Team Providers Care Skills Instructor Name Role Phone Agustin Marrero MD Primary Care Provide r Reason for Visit * Reason Comments Med Refill Encounter Details Date Type Department Care Team ([facility] st Contact Info) Description 2024 Refill [facility] MEDICINE [address] [place], [place] [phone] Agustin Marrero MD [address] [place] [address] Social History Tobacco Use Types Packs/Day Years [...] Description 01/06/2025 11:30 AM EDT Clinical Support [facility] MEDICINE [address] [place] [address] Shwetha Collado RN [address] [place] [address] 02/23/2025 10:00 AM EST Office Visit [facility] MEDICINE [address] [place] [address] Agustin Marrero MD [address] [place] [address] 05/31/2025 8:00 AM EST Office Visit [facility] ADULT DENTAL [address] [place] [address] Catherine Antonio [address] [place] [address] documented as of this encounter Visit Diagnoses Not on filedocumented in this encounter Additional Health Concerns Assessment Noted Time PHQ-9 Depression Total Score: 0 12/03/19 24 10:31 AM EDT documented as of this encounter Care Teams Skills Instructor Relationship Specialty Start Date End Date Agustin Marrero MD [address] [place] [address] PCP - General Internal Medicine 01/25/14 [facility] 06/13/16 documented as of this encounter
--- OUTSIDE RECORDS SUMMARY | 2025-01-05 15:07 | XMS_ITS | Encounter Summary ---
Author Organization [facility] Address [address] [place] [address] Care Team Providers Care Fryline Attendant Name Role Phone Agustin Mix Primary Care Provider + Encounter Details Date Type Department Care Team (Late st Contact Info) Description 01/13/2020 Orders Only [facility] 2 Rad Act 1 [address] [place] [address] Pawel Sanchez MD [address] [place] [address] Social History Tobacco Use Types Packs/Day Years [...] 02/06/2025 9:30 AM EDT Follow-Up [facility] Liver Transplant Services [address] [place] [address] Dylan Phelps MD [address] [place] [address] documented as of this encounter Visit Diagnoses Not on filedocumented in this encounter Additional Health Concerns Infection Onset Date Last Indicated Resolved Time COVID-19 - Suspected infection 03/05/2020 03/17/2020 03/17/2020 7:55 PM EST COVID-19 - Confirmed infection 05/01/2020 05/07/2020 06/01/2020 5:06 PM EST COVID-19 - Suspected infection 05/10/2020 05/10/2020 05/24/2020 10:34 PM EST documented as of this encounter Care Teams Fryline Attendant Relationship Specialty Start Date End Date Agustin Mix [address] [place] [address] PCP - General Internal Medicine 04/15/17 documented as of this encounter
--- OUTSIDE RECORDS SUMMARY | 2025-01-05 15:07 | XMS_ITS | Encounter Summary ---
Author Organization [employer] Address [address] [place] [address] 7 [place] [address] Care Team Providers Care Keyboard Operator Name Role Phone Agustin Marrero MD Primary Care Provide r Reason for Visit * Reason Onset Date Comments Med Refill 09/05/2024 Encounter Details Date Type Department Care Team ([facility] st Contact Info) Description 09/05/2024 Telephone [facility] MEDICINE [address] [place], [place] [phone] Agustin Marrero MD [address] [place], [place] [phone] Med Refill Social History Tobacco Use Types [...] 50 MG tablet To be sent to: [facility]/pharmacy #[id number] [place] [address] documented in this encounter Plan of Treatment Upcoming Encounters Date Type Department Care Team (Late st Contact Info) Description 01/06/2025 11:30 AM EDT Clinical Support [facility] MEDICINE [address] [place] [address] Shwetha Collado RN 505 [place] [address] 02/23/2025 10:00 AM EST Office Visit [facility] [address] [place] [address] Agustin Marrero MD [address] [place] [address] 05/31/2025 8:00 AM EST Office Visit [facility] ADULT DENTAL [address] [place] [address] [place] [address] Catherine Antonio [address] [place] [address] documented as of this encounter Visit Diagnoses Not on filedocumented in this encounter Additional Health Concerns Assessment Noted Time PHQ-9 Depression Total Score: 0 12/03/19 24 10:31 AM EDT documented as of this encounter Care Teams Keyboard Operator Relationship Specialty Start Date End Date Agustin Marrero MD [address] [place] [address] PCP - General Internal Medicine 01/25/14 [facility] 06/13/16 documented as of this encounter
--- OUTSIDE RECORDS SUMMARY | 2025-01-05 15:07 | XMS_ITS | Encounter Summary ---
Author Organization [employer] Address [address] [place] [address] 7 [place] [address] Care Team Providers Care Director Validation Name Role Phone Agustin Marrero MD Primary Care Provide r Reason for Visit * Reason Onset Date Comments Med Refill 10/04/2024 Encounter Details Date Type Department Care Team ([facility] st Contact Info) Description 10/04/2024 Telephone [facility] MEDICINE [address] [place], [place] [phone] Agustin Marrero MD [address] [place], [place] [phone] Med Refill Social History Tobacco Use Types [...] 10 MG tablet To be sent to: [facility]/pharmacy #[address] [place] [address] documented in this encounter Plan of Treatment Upcoming Encounters Date Type Department Care Team (Late st Contact Info) Description 01/06/2025 11:30 AM EDT Clinical Support [facility] MEDICINE [address] [place] [address] Shwetha Collado RN [address] [place] [address] 02/23/2025 10:00 AM EST Office Visit [facility] MEDICINE [address] [place] [address] Agustin Marrero MD [address] [place] [address] 05/31/2025 8:00 AM EST Office Visit [facility] ADULT DENTAL [address] [place] [address] Catherine Antonio [address] [place] [address] documented as of this encounter Visit Diagnoses Not on filedocumented in this encounter Additional Health Concerns Assessment Noted Time PHQ-9 Depression Total Score: 0 12/03/19 10:31 AM EDT documented as of this encounter Care Teams Director Validation Relationship Specialty Start Date End Date Agustin Marrero MD [address] [place] [address] PCP - General Internal Medicine 01/25/14 [facility] 06/13/16 documented as of this encounter
--- OUTSIDE RECORDS SUMMARY | 2025-01-05 15:07 | XMS_ITS | Encounter Summary ---
Author Organization [employer] Address [address] [place] [address] 7 [place] [address] Care Team Providers Care Internet Researcher Name Role Phone Agustin Marrero MD Primary Care Provide r Reason for Visit * Reason Onset Date Comments Med Refill 03/01/2024 Encounter Details Date Type Department Care Team ([facility] st Contact Info) Description 03/01/2024 Telephone [facility] MEDICINE [address] [place], [place] [phone] Agustin Marrero MD [address] [place], [place] [phone] Med Refill Social History Tobacco Use Types [...] Description 01/06/2025 11:30 AM EDT Clinical Support [facility] MEDICINE [address] [place] [address] Shwetha Collado RN [address] [place] [address] 02/23/2025 10:00 AM EST Office Visit [facility] MEDICINE [address] [place] [address] Agustin Marrero MD 230 [place] [address] 05/31/2025 8:00 AM EST Office Visit [facility] ADULT DENTAL [address] [place], [place] [phone] Catherine Antonio [address] [place], [place] [phone] documented as of this encounter Visit Diagnoses Not on filedocumented in this encounter Additional Health Concerns Assessment Noted Time PHQ-9 Depression Total Score: 0 12/03/19 10:31 AM EDT documented as of this encounter Care Teams Internet Researcher Relationship Specialty Start Date End Date Agustin Marrero MD [address] [place] [address] PCP - General Internal Medicine 01/25/14 [facility] 06/13/16 documented as of this encounter
--- OUTSIDE RECORDS SUMMARY | 2025-01-05 15:07 | XMS_ITS | Encounter Summary ---
Author Organization [employer] Address [address] [place] [address] 7t [place] [address] Care Team Providers Care Industrial Organization Manager Name Role Phone Agustin Marrero MD Primary Care Provide r Reason for Visit * Reason Comments Med Refill Encounter Details Date Type Department Care Team ([facility] st Contact Info) Description 10/20/2023 Refill [facility] MED & PEDS [address] [place], [place] [phone] Agustin Marrero MD [address] [place] [address] Chronic midline low back pain without sciatica [...] Description 01/06/2025 11:30 AM EDT Clinical Support [facility] MEDICINE [address] [place] [address] Shwetha Collado RN [address] [place] [address] 02/23/2025 10:00 AM EST Office Visit [facility] MEDICINE [address] [place] [address] Agustin Marrero MD [address] [place] [address] 05/31/2025 8:00 AM EST Office Visit [facility] ADULT DENTAL [address] [place] [address] Catherine Antonio [address] [place] [address] documented as of this encounter Visit Diagnoses Diagnosis Chronic midline low back pain without sciatica documented in this encounter Additional Health Concerns Assessment Noted Time PHQ-9 Depression Total Score: 5 06/16/19 24 9:35 AM EST documented as of this encounter Care Teams Industrial Organization Manager Relationship Specialty Start Date End Date Agustin Marrero MD [address] [place] [address] PCP - General Internal Medicine 01/25/14 [facility] 06/13/16 documented as of this encounter
--- OUTSIDE RECORDS SUMMARY | 2025-01-05 15:07 | XMS_ITS | Encounter Summary ---
Author Organization [employer] Address [address] [place] [address] 7t [place] [address] Care Team Providers Care Frankfurter Inspector Name Role Phone Agustin Marrero MD Primary Care Provide r Encounter Details Date Type Department Care Team ([facility] st Contact Info) Description 12/24/2023 Telephone [facility] MEDICINE [address] [place], [place] [phone] Agustin Marrero MD [address] [place], [place] [phone] Social History Tobacco Use Types Packs/Day Years [...] Description 01/06/2025 11:30 AM EDT Clinical Support [facility] MEDICINE [address] [place] [address] Shwetha Collado, KATALINA [address] [place] [address] 02/23/2025 10:00 AM EST Office Visit [facility] MEDICINE [address] [place] [address] Agustin Marrero MD [address] [place] [address] 05/31/2025 8:00 AM EST Office Visit [facility] ADULT DENTAL [address] [place] [address] Catherine Antonio [address] [place] [address] documented as of this encounter Visit Diagnoses Not on filedocumented in this encounter Additional Health Concerns Assessment Noted Time PHQ-9 Depression Total Score: 0 12/03/19 24 10:31 AM EDT documented as of this encounter Care Teams Frankfurter Inspector Relationship Specialty Start Date End Date Agustin Marrero MD [address] [place] [address] PCP - General Internal Medicine 01/25/14 [facility] 06/13/16 documented as of this encounter
--- OUTSIDE RECORDS SUMMARY | 2025-01-05 15:08 | XMS_ITS | Encounter Summary ---
Author Organization [employer] Address [address] [place] [address] 7[place] [address] Care Team Providers Care Oyster Culturist Name Role Phone Agustin Marrero MD Primary Care Provide r Encounter Details Date Type Department Care Team (Latest Contact Info) Description 05/23/2019 Abstract [facility] CONVERSIONS Dental, Provider, DDS Social [...] Description 01/06/2025 11:30 AM EDT Clinical Support [facility] MEDICINE [address] [place] [address] Shwetha Collado RN [address] [place] [address] 02/23/2025 10:00 AM EST Office Visit [facility] MEDICINE [address] [place] [address] Agustin Marrero MD [address] [place] [address] 05/31/2025 8:00 AM EST Office Visit [facility] ADULT DENTAL [address] [place] [address] Catherine Antonio [address] [place] [address] documented as of this encounter Visit Diagnoses Not on filedocumented in this encounter Care Teams Oyster Culturist Relationship Specialty Start Date End Date Agustin Marrero MD 230 [place] [address] PCP - General Internal Medicine 01/25/14 [facility] 06/13/16 documented as of this encounter
--- OUTSIDE RECORDS SUMMARY | 2025-01-05 15:08 | XMS_ITS | Encounter Summary ---
Author Organization [employer] Address [address] [place] [address] 7[place] [address] Care Team Providers Care Channel Program Manager Name Role Phone Agustin Marrero MD Primary Care Provide r Encounter Details Date Type Department Care Team (Latest Contact Info) Description 06/18/2021 Abstract [facility] CONVERSIONS Dental, Provider, DDS Social History [...] 11:30 AM EDT Clinical Support [facility] MEDICINE [address] [place] [address] Shwetha Collado RN [address] [place] [address] 02/23/2025 10:00 AM EST Office Visit [facility] MEDICINE [address] [place] [address] Agustin Marrero MD 230 [place] [address] 05/31/2025 8:00 AM EST Office Visit [facility] ADULT DENTAL [address] [place] [address] Catherine Antonio [address] [place] [address] documented as of this encounter Visit Diagnoses Not on filedocumented in this encounter Care Teams Channel Program Manager Relationship Specialty Start Date End Date Agustin Marrero MD 230 [place] [address] PCP - General Internal Medicine 01/25/14 [facility] 06/13/16 documented as of this encounter
--- OUTSIDE RECORDS SUMMARY | 2025-01-05 15:08 | XMS_ITS | Encounter Summary ---
Author Organization [employer] Address [address] [place] [address] 7 [place] [address] Care Team Providers Care Senior Sales Executive Name Role Phone Agustin Marrero MD Primary Care Provide r Reason for Visit * Reason Onset Date Comments Medication Question 05/11/2024 Encounter Details Date Type Department Care Team ([facility] st Contact Info) Description 05/11/2024 Telephone [facility] [address] [place], [place] [phone] Agustin Marrero MD [address] [place], [place] [phone] Medication Question Social History Tobacco Use Types [...] Dr Richardson's office on 05/11/2024. Note in [facility] EHR: Received call from Edward's [...] early May to continue to monitor. Called [facility] pharmacy, spoke with Faiza who stated that pt last picked up Kayexalate on 08/13/2023, Rx was written by Dr Lenin Richardson for 30g 1x weekly as directed. Called [facility] Dr Richardson's office to confirm. Spoke with [...] Richardson's office and received same messageas above. Field Logistics Coordinator advised Jessica to contact Dr Richardson with any questions regarding this med given that they prescribe it. Jessica stated she will be following up with their office in May once the pt gets their labs drawn. Advised her to call [facility] if any other questions or concerns [...] leaving original prescriber contact information. Dr. Richardson [facility]. . If any questions for Jessica you can contact pt at [phone]. documented in this encounter Plan of Treatment Upcoming Encounters Date Type Department Care Team (Late st Contact Info) Description 01/06/2025 11:30 AM EDT Clinical Support [facility] [address] [place] [phone] Shwetha Collado RN [address] [place] [address] 02/23/2025 10:00 AM EST Office Visit [facility] [address] [place] [phone] Agustin Marrero MD [address] [place] [phone] 05/31/2025 8:00 AM EST Office Visit [facility] ADULT DENTAL [address] [place] [phone] Catherine Antonio [address] [place] [address] documented as of this encounter Visit Diagnoses Not on filedocumented in this encounter Additional Health Concerns Assessment Noted Time PHQ-9 Depression Total Score: 0 12/03/19 10:31 AM EDT documented as of this encounter Care Teams Senior Sales Executive Relationship Specialty Start Date End Date Agustin Marrero MD [address] [place] [address] PCP - General Internal Medicine 01/25/14 [facility] 06/13/16 documented as of this encounter
--- OUTSIDE RECORDS SUMMARY | 2025-01-05 15:08 | XMS_ITS | Encounter Summary ---
Author Organization [employer] Address [address] [place] [address] [address] [place] [address] Care Team Providers Care Staff Attorney Name Role Phone Agustin Marrero MD Primary Care Provide r Reason for Visit * Reason Comments Med Refill Encounter Details Date Type Department Care Team ([facility] st Contact Info) Description 05/13/2024 Refill [facility] [address] [place], [place] [phone] Agustin Marrero MD [address] [place] [address] Social History Tobacco Use Types Packs/Day Years [...] Description 01/06/2025 11:30 AM EDT Clinical Support [facility] [address] [place] [phone] Shwetha Collado RN [address] [place] [address] 02/23/2025 10:00 AM EST Office Visit [facility] [address] [place] [phone] Agustin Marrero MD [address] [place] [address] 05/31/2025 8:00 AM EST Office Visit [facility] ADULT DENTAL [address] [place] [phone] Catherine Antonio [address] [place] [address] documented as of this encounter Visit Diagnoses Not on filedocumented in this encounter Additional Health Concerns Assessment Noted Time PHQ-9 Depression Total Score: 0 12/03/19 24 10:31 AM EDT documented as of this encounter Care Teams Staff Attorney Relationship Specialty Start Date End Date Agustin Marrero MD [address] [place] [phone] PCP - General Internal Medicine 01/25/14 [facility] 06/13/16 documented as of this encounter
--- OUTSIDE RECORDS SUMMARY | 2025-01-05 15:08 | XMS_ITS | Encounter Summary ---
Author Organization [facility] Address [address] [place] [address] Care Team Providers Care Fabrication Technician Name Role Phone Agustin Mix Primary Care Provider + Encounter Details Date Type Department Care Team (Late st Contact Info) Description 11/24/2024 Results Follow-Up [facility] Transplant Department [address] [place] [address] Erika Bonds RN Social History Tobacco Use [...] Info) Description 02/06/2025 9:30 AM EDT Follow-Up [facility] Liver Transplant Services [address] [place], [place] [phone] Dylan Phelps MD [address] [place] [address] documented as of this encounter Visit Diagnoses Not on filedocumented in this encounter Care Teams Fabrication Technician Relationship Specialty Start Date End Date Agustin Mix [address] [place] [phone] PCP - General Internal Medicine 04/15/17 documented as of this encounter
--- OUTSIDE RECORDS SUMMARY | 2025-01-05 15:08 | XMS_ITS | Encounter Summary ---
Author Organization [employer] Address [address] [place] [address] 7 [place] [address] Care Team Providers Care Housing Liaison Name Role Phone Agustin Marrero MD Primary Care Provide r Encounter Details Date Type Department Care Team (Late Contact Info) Description 08/28/2022 Abstract [facility] MED[facility]INE [address] [place] [phone] Agustin Marrero MD [address] [place] [address] Social History Tobacco Use Types Packs/Day Years [...] 11:30 AM EDT Clinical Support [facility] [address] [place] [phone] Shwetha Collado RN [address] [place] [address] 02/23/2025 10:00 AM EST Office Visit [facility] [address] [place] [address] [phone] Agustin Marrero MD [address] [place] [address] 05/31/2025 8:00 AM EST Office Visit [facility] ADULT DENTAL [address] [place] [address] Catherine Antonio [address] [place] [address] documented as of this encounter Procedures Procedure Name Priority Date/Time Associated Diagnosis Comments COLONOSCOPY Routine 06/28/2021 documented in this encounter Results * Colonoscopy (06/28/2021) Colonoscopy Normal Normal 06/28/2021 Narrative Shanel Bo - 06/28/2021 9:58 AM EST Recommended 3 year follow up per GI notes ( [facility] ) us Historical Provider ComAbility MAINTENANCE Edited Result - Final documented in this encounter Visit Diagnoses Not on filedocumented in this encounter Care Teams Housing Liaison Relationship Specialty Start Date End Date Agustin Marrero MD [address] [place] [address] PCP - General Internal Medicine 01/25/14 [facility] 06/13/16 documented as of this encounter
--- OUTSIDE RECORDS SUMMARY | 2025-01-05 15:08 | XMS_ITS | Encounter Summary ---
Author Organization [facility] Address [address] [place] [address] Care Team Providers Care Muck Boss Name Role Phone Agustin Mix Primary Care Provider + Encounter Details Date Type Department Care Team (Late st Contact Info) Description 04/02/2020 Orders Only [facility] Interventional Radiology [address] [place] [address] Kathy Bowling MD [address] [place], [place] [phone] Social History Tobacco Use Types Packs/Day Years [...] [facility] Liver Transplant Services [address] [place], [place] [phone] Dylan Phelps MD [address] [place] [phone] documented as of this encounter Visit Diagnoses Not on filedocumented in this encounter Additional Health Concerns Infection Onset Date Last Indicated Resolved Time COVID-19 - Confirmed infection 05/01/2020 05/07/2020 06/01/2020 5:06 PM EST COVID-19 - Suspected infection 05/10/2020 05/10/2020 05/24/2020 10:34 PM EST documented as of this encounter Care Teams Muck Boss Relationship Specialty Start Date End Date Agustin Mix [address] [place] [address] PCP - General Internal Medicine 04/15/17 documented as of this encounter
--- OUTSIDE RECORDS SUMMARY | 2025-01-05 15:08 | XMS_ITS | Clinical Summary ---
Author Organization [facility] Address [address] [place] [address] Care Team Providers Care Bus Driver/Monitor Name Role Phone Agustin Mix Primary Care [...] needed daily 2 Active FreeStyle Arvin 2 Silver misc 2 Active BD Insulin Syringe Ultra-Fine [...] ERCP tomorrow -serum CMV PCR -follow up [facility] -follow up blood cultures History of liver [...] in March 2020. He was seen by ship painter helper at [facility] who discussed that he might need [...] for liver biopsy, since LFT pattern not inbound call center representative of rejection. Additionally, Liver ultrasound showed [...] of recurrent ESBL bacteremia. Initially presented to [facility] for fever, LE swelling and pain. Unclear source. BCX grew esbl E.Coli 1 out of 2 sets from [facility], susceptible to Ertapenem. Initially he was [...] of recurrent ESBL bacteremia. Initially presented to [facility] for fever, LE swelling and pain. Unclear source. BCX grew esbl E.Coli 1 out of 2 sets from [facility], susceptible to Ertapenem. Initially he was [...] recurrent ESBL bacteremia. Patient initially presented to [facility] for fever and LE swelling and pain. Unclear source. BCX grew esbl E.Coli 1 out of 2 sets from [facility], susceptible to Ertapenem. Initially he was on zosyn, and was switched to ertapenem. On previous admission, MRCP on 12/20 or Abdominal US on 01/16 showed no biliary dilatation. - continue ertapenem (10 day course to be completed on 02/09 per [facility] note) - repeat BCX - CT AP w/ contrast - consult transplant ID in the AM - f/u CBC and CMP Assessment & Plan (02/05/2019 5:40 AM EDT): Patient has a recurrent history of recurrent ESBL bacteremia. Patient initially presented to [facility] for fever and LE swelling and pain. Unclear source. BCX grew esbl E.Coli 1 out of 2 sets from [facility], susceptible to Ertapenem. Initially he was on zosyn, and was switched to ertapenem. On previous admission, MRCP on 12/20 or Abdominal US on 01/16 showed no biliary dilatation. - continue ertapenem (10 day course to be completed on 02/09 per [facility] note) - repeat BCX - CT AP w/ contrast Abscess of leg, right 02/05/20192018 Assessment & Plan (02/22/2019 3:37 PM EST): Patient has worsened leg edema R>L w/ rt side 4+ pitting edema. At [facility], US was negative for DVT. CT [...] w/ rt side 4+ pitting edema. At [facility], US was negative for DVT. CT [...] Right side has 4+ pitting edema. At [facility], US was obtained and ruled out [...] was found. OSH GI recommended transfer to [facility] as there was a suspicion for acute [...] pathology. -BCx grew GNR -transplant ID consulted -[facility] was called for speciation, it will [...] concerning for pathology. -Transplant ID is following -[facility] will fax culture data, commented that [...] 8:59 AM EST): Hyponatremic to 132 at [facility]. Na 128, constant through hospitalization. - daily BMP Assessment & Plan (02/09/2019 11:02 AM EDT): Hyponatremic to 132 at [facility]. Na 128, constant through hospitalization. - daily BMP Assessment & Plan (02/05/2019 5:51 AM EDT): Hyponatremic to 132 at [facility]. - repeat BMP in am and redose diuretics Assessment & Plan (02/05/2019 5:47 AM EDT): Hyponatremic to 132 at [facility]. - repeat BMP in am and [...] Presented again on day of admission to [facility] with worsening shortness of breath where a CT chest PE protocol was performed which showed no evidence of intraluminal filling defect though did make note of large left- sided pleural effusion with associated complete left lower lobe collapse as well as partial left upper lobe collapse. Due to recurrent pleural effusion and likely need for repeat thoracentesis patient was transferred [facility]. On arrival patient without any increased work of breathing and saturating well on room air. Exam reveals absent breath sounds in the left middle and lower lung perez with increased dullness to percussion. 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 -We will have CT scan from [facility] uploaded into our system for review -CXR on 07/11 showed large left pleural effusion -IP consulted for thoracentesis. Will send fluid studies. -Requested [facility] records of pleural fluid studies from 07/06 -Supplemental oxygen as needed to maintain sats greater than 92% Assessment & Plan (01/19/2019 10:11 AM EDT): Patient is s/p thoracentesis after large left lung effusion unchanged from previous admission seen on imaging. Site of thoracentesis covered with bandage that is dry and intact. Chart review of his prior hospitalization at [facility] revealed that he had thoracentesis on January 11, 2019, during which 1.6 L was taken out, and fluid study revealed white blood cell count of 2650 and segs of 35%, suggesting exudative fluid, although it seems that no paracentesis was done at [facility]. - decreased breath sounds in middle and [...] resulting transudative fluid, rapidly reaccumulating, transferred to [facility] for TIPS intervention. Resumed diuretics today at [...] procedure in 2017. Most recent hospitalization at [facility] was in January 2019 when he was [...] to hyperkalemia. Of note, reached out to [facility] to double check if paracentesis was done, and whether there is a fluid study of the sample, however it appears that no paracentesis was done at [facility]. - Start Lactulose increased to 20 g [...] from TIPS procedure and was sent to [facility] for further evaluation. Plan -Continue with home [...] 20mg daily and spironolactone 50mg daily. At [facility], patient received IV lasix 40mg daily. [...] 20mg daily and spironolactone 50mg daily. At [facility], patient received IV lasix 40mg daily. [...] Encounters Date Type Department Care Team Description 12/23/2024 Abstract [facility] Transplant Department [address] [place] [address] [id number] Dylan Phelps MD 12/22/2024 Results Follow-Up [facility] Transplant Department [address] [place] [address] [id number] Erika Bonds RN 12/22/2024 Abstract [facility] Transplant Department [address] [place] [address] [id number] Dylan Phelps MD 12/12/2024 Orders Only [facility] Transplant Department [address] [place] [address] 51465 Erika Bonds RN Encounter for immunosuppression management after liver transplant (HCC) (Primary Dx); History of hepatocellular carcinoma 11/25/2024 Abstract [facility] Transplant Department [address] [place] [address] [id number] Dylan Phelps MD 11/24/2024 Results Follow-Up [facility] Transplant Department [address] [place] [address] 76516 Erika Bonds RN 11/24/2024 Abstract [facility] Transplant Department [address] [place] [address] [phone] Dylan Phelps MD 10/21/2024 Refill [facility] Liver Transplant Services [address] [place] [address] [phone] Dylan Phelps MD History of liver transplant (HCC) 10/20/2024 Abstract [facility] Transplant Department [address] [place] [address] [phone] Dylan Phelps MD from Last 3 Months [...] Description 02/06/2025 9:30 AM EDT Follow-Up [facility] Liver Transplant Services [address] [place] [address] Dylan Phelps MD [address] [place], [place] [phone] Health Maintenance Due Date Last Done Comments Cologuard 1964 Colon Cancer Screening 1965 Colonoscopy 1965 FOBT / Fit Test 1964 Sigmoidoscopy 1964 Ophthalmology Exam 01/03/1974 Urine Microalbumin 05/17/2022 05/17/2021, 04/06/2020 DTaP,Tdap,and Td Vaccines (2 - Td or Tdap) 09/16/2023 09/15/2013, 10/26/2006 RSV Vaccine (60+ years old and patients) (1 - Risk 60-74 years 1-dose [...] history exists Medical Devices Implanted Type Area Cement Finisher Device Identifier Shelf Expiration Date Model / Serial / Lot Shunt Transjugular Intrahepatic Portosystemic Tips Endoprosthesis [id number] Viatorr - [id number] Implanted:Qty: 1 on 07/28/2017 at [facility] Implant W L GORE 12/26/2019 [id number] / / Mesh Hernia With Strap Large Ventralex - [id number] Implanted:Qty: 1 on 03/20/2020 by Fernando Fine MD PhD at [facility] Mesh Right: Abdomen CR [employer] 01/15/2021 [id number] / / [id number] Stent Biliary Rx Fully Covered Self Expanding Metallic Rmv With Permalume Covering 8.5fr [id number] Wallflex - [id number] - [id number] Implanted:Qty: 1 on 11/21/2022 by Dunia Osorio MD at [facility] Stent N/A: Bile Duct [employer] 08/21/2024 [id number] / [id number] / Explanted Type Area Cement Finisher Device Identifier Shelf Expiration Date Model / Serial / Lot Ercp Stent-11/21/2022 Implanted:07/2022 (Quantity not on file) Explanted:06/2022 (Quantity not on file) ERCP Stent Bile Duct 1 / / Txp Internal Biliary Stent- 0 Implanted:07/20 (Quantity not on file) Explanted:06/0 07/2020 (Quantity not on file) TXP Internal Biliary Stent Bile Duct Procedures * Due to [place] state law, this organization might not be sharing negative HIV tests. Procedure Name Priority Date/Time Associated Diagnosis Comments AFP TUMOR MARKER, OUTSIDE LAB Routine 12/21/2024 6:38 AM EDT LIVER POST EXTERNAL PANEL Routine 12/21/2024 6:38 [...] to Health Maintenance Results * Due to [place] law, this organization might not be sharing negative HIV tests. * LIVER POST EXTERNAL PANEL (12/21/2024 6:38 AM EDT) Only the most recent of3 resultswithin the time period is included. Tacrolimus, Highly Sensitive 4.7 [facility] Sodium 137 mmol/L [facility] Potassium 4.7 [facility] Chloride 105 [facility] Carbon Dioxide 26 [facility] Glucose 224 [facility] BUN 21 mg/dL [facility] Creatinine 1.13 mg/dL [facility] Calcium 9.3 mg/dL [facility] Total Protein 6.9 g/dL [facility] Albumin 4.5 g/dL [facility] Bilirubin, Total 0.7 mg/dL [facility] Alkaline Phosphatase 135 U/L [facility] AST 30 U/L [facility] ALT 36 U/L [facility] Magnesium 1.70 mg/dL [facility] WBC 5.8 10*3/uL [facility] Hgb 14.0 [facility] Hematocrit 39.4 % [facility] Platelets 151 10*3/uL [facility] 12/21/2024 6:38 AM EDT Dylan Phelps MD LAB BLOOD ORDERABLES Final Re sult Performing Organization Address [facility] Co de Phone Number [facility] [address] [place] [phone] * AFP Tumor Marker, Outside Lab (12/21/2024 6:38 AM EDT) Only the most recent of2 resultswithin the time period is included. Alpha Fetoprotein, Tumor Marker 1.3 [facility] Blood Structure of peripheral vein / Unknown 12/21/2024 6:38 AM EDT Dylan Phelps MD LAB BLOOD ORDERABLES Final Re sult Performing Organization Address [facility] Co de Phone Number [facility] [address] [place] [address] * CT Chest W Contrast (11/05/2023 4:35 [...] to obtain the completed interpretation. Workstation ID: [id number] Up-to-date CT equipment and radiation dose reduction techniques were employed. CTDIvol: 3.1 - 23.9 mGy. DLP: 2643 mGy-cm. The following accession numbers are related to this dose report [id number]: [id number] Narrative 11/19/2023 3:36 PM EDT Indication: 58 [...] the spine. Bilateral gynecomastia. Resulting Agency Comment [id number] Procedure Note Natasha Michaud MD - 11/19/2023 [...] possible to obtain thecompleted interpretation. Workstation ID: [id number] Up-to-date CT equipment and radiation dose reduction techniques wereemployed. CTDIvol: 3.1 - 23.9 mGy. DLP: 2643 mGy-cm. The followingaccession numbers are related to this dose report [id number]: [id number] Dylan Phelps MD [facility] CT PROCEDURES Final Resul t * (ABNORMAL) Basic Metabolic Panel (11/15/2022 3:07 AM EDT) NA 135 135 - 145 mmol/L 11/15/2022 4:09 AM EDT [facility] K 4.6 3.5 - 5.3 mmol/L 11/15/2022 4:09 AM EDT [facility] Cl 103 97 - 110 mmol/L 11/15/2022 4:09 AM EDT [facility] CO2 24 24 - 32 mmol/L 11/15/2022 4:09 AM EDT [facility] BUN 27(H) 7 - 23 mg/dL 11/15/2022 4:09 AM EDT [facility] Creatinine 1.05 0.60 - 1.30 mg/dL 11/15/2022 4:09 AM EDT [facility] Glucose 268(H) 70 - 99 mg/dL 11/15/2022 4:09 AM EDT [facility] Calcium 8.8 8.7 - 10.7 mg/dL 11/15/2022 4:09 AM EDT [facility] Anion Gap 8 5 - 15 11/15/2022 4:09 AM EDT [facility] eGFR 82 >=60 mL/min/1. 73m2 11/15/2022 4:09 AM EDT [facility] Comment:The estimated glomer ular [...] ORDERABLES Final Re sult Performing Organization Address City/[facility]/ZIP Co de Phone Number [facility] [address] [place] [address], * Microalbumin, Random Urine with Creatinine (05/17/2021 11:35 AM EST) Microalbumin, Urine 1.1 mg/dL 05/17/2021 12:34 PM EST [facility] Creatinine, Urine 97 22 - 328 mg/dL 05/17/2021 12:34 PM EST [facility] Microalb/Creat Ratio, Random Urine 11.3 <30.0 mcg/mgCr 05/17/2021 12:34 PM EST [facility] Comment: Microalbumin Reference Range: Normal <30 mcg/mg Creatinine Microalbuminuria 30-300 mcg/mg Creatinine Clinical Albuminuria >300 mcg/mg Creatinine Reference: ADA Guideline. Diabetes Care. 2004;27 (suppl 1) Urine Voided urine specimen / Unknown Non-Blood Collection / Unknown 05/17/2021 11:35 AM EST 05/17/2021 12:01 PM EST us Angelita Villa MD LAB URINE ORDERABLES Final Resul t [facility] [address] [place] [address], [place] * (ABNORMAL) Hemoglobin A1c (05/17/2021 11:31 AM EST) Hemoglobin A1C 7.7(H) <5.7 % of total Hgb 05/18/2021 2:37 AM EST [facility] Comment: For someone without known diabetes, a [...] (MG/DL) 174 mg/dL 05/18/2021 2:37 AM EST [facility] eAG (MMOL/L) 9.7 mmol/L 05/18/2021 2:37 AM EST [facility] Blood Structure of peripheral vein / Unknown Venipuncture / Unknown 05/17/2021 11:31 AM EST 05/17/2021 11:40 AM EST [facility] CHANDANA - 05/18/2021 2:37 AM EST [facility] Received Date: us Angelita Villa MD LAB BLOOD ORDERABLES Final Resul t [facility] [address] [facility] [address], [place] [address], [place] [phone] [facility] [address] [facility] [address], [place] [address], [place] [phone] * CT Abdomen Pelvis with Contrast (05/05/2020 5:27 PM EST) Anatomical Region Laterality Modality Body Computed Tomogra phy 05/06/2020 8:40 AM EST Impressions 05/06/2020 8:50 AM EST Small fluid pocket between the incision and transverse colon which may represent developing adhesions. Recommend correlation for any signs of infection in the incision on exam. Otherwise, no CT findings that might explain patient's fever. [id number] Narrative 05/06/2020 8:50 AM EST EXAMINATION: CT [...] no CT findings that mightexplain patient's fever. [id number] Reyes Voss MD IMG CT PROCEDURES Final Result * Hepatitis C RNA, Quantitative, PCR (09/09/2019 11:52 AM EDT) Hcv RNA, Quantitative Real Time PCR <15 NOT DETECTED NOT DETECTED IU/mL 09/14/2019 5:38 PM EDT [facility] Hepatitis C Quantitative PCR Log IU/mL <1.18 NOT DETECTED NOT DETECTED Log IU/mL 09/14/2019 5:38 PM EDT [facility] Comment: This test was performed using Real-Time Polymerase Chain Reaction. Reportable Range: 15 IU/mL to 100,000,000 IU/mL (1.18 Log IU/mL to 8.00 Log IU/mL). The analytical performance characteristics of this assay have been determined by [employer]. The modifications have not been cleared or approved by the FDA. This assay has been validated pursuant to the CLIA regulations and is used for clinical purposes. For more information on this test, go to: http://education.Verdiem/faq/NXY36h2 (This link is being provided for informational/ educational purposes only.) Blood Structure of peripheral vein / Unknown Venipuncture / Unknown 09/09/2019 11:52 AM EDT 09/09/2019 12:07 PM EDT Narrative [facility] CHANDANA - 09/14/2019 5:38 PM EDT [facility] Received Date:[id number] Cyndi Pereira MD LAB BLOOD ORDERAB LES Final Result [facility] [address] [facility] [address], [place] [address], [place] [phone] [facility] [address] [facility] [address], [place] [address], [place] [phone] from Last 3 Months or Most Recently Relevant to Health Maintenance Insurance [address] [place] [address] [facility] [address] [place] [address] [facility] [address] [place] [address] [facility] Advance Directives Documents on File Type Date Recorded Patient Legislative Analyst Expl anation Health Care Proxy 02/05/2019 4:40 [...] File Name Relationship Healthcare Agent Relationship Communication Mariluzsara Mariabob Son Health Care Agent Care Teams Bus Driver/Monitor Relationship Specialty Start Date End Date Agustin Mix [address] [place] [id number] PCP - General Internal Medicine 04/15/17
--- OUTSIDE RECORDS SUMMARY | 2025-01-05 15:08 | XMS_ITS | Encounter Summary ---
Author Organization [employer] Address [address] [place] [address] 7 [place] [address] Care Team Providers Care Tomato Paste Maker Name Role Phone Agustin Marrero MD Primary Care Provide r Reason for Visit * Reason Comments Med Refill Encounter Details Date Type Department Care Team (Late Contact Info) Description 09/04/2022 Refill [facility] [address] [place], [place] [phone] Agustin Marrero MD [address] [place] [address] Social History Tobacco Use Types Packs/Day Years [...] Upcoming Encounters Date Type Department Care Team ([facility] Contact Info) Description 01/06/2025 11:30 AM EDT Clinical Support [facility] [address] [place] [address] Shwetha Collado, RN [address] [place] [address] 02/23/2025 10:00 AM EST Office Visit [facility] [address] [place] [address] Agustin Marrero MD [address] [place] [address] 05/31/2025 8:00 AM EST Office Visit [facility] ADULT DENTAL [address] [place] [address] Catherine Antonio [address] [place] [address] documented as of this encounter Visit Diagnoses Not on filedocumented in this encounter Care Teams Tomato Paste Maker Relationship Specialty Start Date End Date Agustin Marrero MD [address] [place] [id number] PCP - General Internal Medicine 01/25/14 [facility] 06/13/16 documented as of this encounter
--- OUTSIDE RECORDS SUMMARY | 2025-01-05 15:08 | XMS_ITS | Encounter Summary ---
Author Organization [employer] Address [address] [place] [address] [address] [address] Care Team Providers Care Reservation Manager Name Role Phone Agustin Marrero MD Primary Care Provide r Reason for Visit * Reason Onset Date Comments Med Refill 12/15/2022 Encounter Details Date Type Department Care Team ([facility] st Contact Info) Description 12/15/2022 Telephone [facility] MEDICINE [address] [place], [place] [phone] Agustin Marrero MD [address] [place] [address] Med Refill Social History Tobacco Use Types [...] Description 01/06/2025 11:30 AM EDT Clinical Support [facility] [address] [place] [address] Shwetha Collado, KATALINA [address] [place] [address] 02/23/2025 10:00 AM EST Office Visit [facility]INE [address] [place] [address] Agustin Marrero MD [address] [place] [address] 05/31/2025 8:00 AM EST Office Visit [facility] ADULT DENTAL [address] [place] [address] Catherine Antonio [address] [place] [address] documented as of this encounter Visit Diagnoses Not on filedocumented in this encounter Care Teams Reservation Manager Relationship Specialty Start Date End Date Agustin Marrero MD [address] [place] [address] PCP - General Internal Medicine 01/25/14 [facility] 06/13/16 documented as of this encounter
--- OUTSIDE RECORDS SUMMARY | 2025-01-05 15:08 | XMS_ITS ---
Author Organization [facility] Address [address] [place] [address] Care Team Providers Care Collection Coordinator Name Role Phone Agustin Mix Primary Care Provider + Transplant Episode Liver Recipient [facility] ([place] [place]) - [facility] Organ Received: Liver Transplanted on 08/09/2019 Marked as Active Follow-up on 08/09/2019 Liver CoordinatorErika Bonds RN Phone: N/A Fax: N/A Email: N/A [place] Organ Diagnosis Organ Primary Contributory Liver Alcoholic [...] Coordinator N/A N/A N/A Dylan Phelps MD [employer] [phone] [email or web address] Sarai Diaz Referring Physician [phone] N/A Events Post-Transplant Pre-Transplant Admitted: 08/09/2019 Referred: 09/08/2016 Transplanted: 08/09/2019 Evaluation began: 7 Discharged: 08/25/2019 Committee: 10/24/2016 Center waitlisted: 7
--- OUTSIDE RECORDS SUMMARY | 2025-01-05 15:08 | XMS_ITS | Encounter Summary ---
Author Organization [facility] Address [address] [place] [address] Care Team Providers Care Yarn Conditioner Name Role Phone Agustin Mix Primary Care Provider + Encounter Details Date Type Department Care Team (Late st Contact Info) Description 02/29/2020 Orders Only [facility] Ultrasound [address] [place] [address] Sreedhar Sotelo MD [address] [place], [place] [phone] Social History Tobacco Use Types Packs/Day Years [...] Info) Description 02/06/2025 9:30 AM EDT Follow-Up [facility] Liver Transplant Services [address] [place] [address] Dylan Phelps MD [address] [place] [address] documented as of this encounter Visit Diagnoses Not on filedocumented in this encounter Additional Health Concerns Infection Onset Date Last Indicated Resolved Time COVID-19 - Suspected infection 03/05/2020 03/17/2020 03/17/2020 7:55 PM EST COVID-19 - Confirmed infection 05/01/2020 05/07/2020 06/01/2020 5:06 PM EST COVID-19 - Suspected infection 05/10/2020 05/10/2020 05/24/2020 10:34 PM EST documented as of this encounter Care Teams Yarn Conditioner Relationship Specialty Start Date End Date Agustin Mix [address] [place] [address] PCP - General Internal Medicine 04/15/17 documented as of this encounter
--- OUTSIDE RECORDS SUMMARY | 2025-01-05 15:08 | XMS_ITS | Encounter Summary ---
Author Organization [employer] Address [address] [place] [address] [place], [place] [address] Care Team Providers Care Supervisor Accounting Clerks Name Role Phone Agustin Marrero MD Primary Care Provide r Reason for Visit * Reason Onset Date Comments Med Refill 12/15/2022 Encounter Details Date Type Department Care Team ([facility] st Contact Info) Description 12/15/2022 Telephone [facility] MEDICINE [address] [place], [place] [phone] Agustin Marrero MD [address] [place] [address] Med Refill Social History Tobacco Use Types [...] Description 01/06/2025 11:30 AM EDT Clinical Support [facility] MEDICINE [address] [place] [address] Shwetha Collado, RN 505 [place] [address] 02/23/2025 10:00 AM EST Office Visit [facility] MEDICINE [address] [place] [address] Agustin Marrero MD [address] [place] [address] 05/31/2025 8:00 AM EST Office Visit [facility] ADULT DENTAL [address] [place] [address] Catherine Antonio [address] [place] [address] documented as of this encounter Visit Diagnoses Not on filedocumented in this encounter Care Teams Supervisor Accounting Clerks Relationship Specialty Start Date End Date Agustin Marrero MD [address] [place] [address] PCP - General Internal Medicine 01/25/14 [facility] 06/13/16 documented as of this encounter
--- OUTSIDE RECORDS SUMMARY | 2025-01-05 15:08 | XMS_ITS | Encounter Summary ---
Author Organization [facility] Address [address] [place] [address] Care Team Providers Care Day Care Attendant Name Role Phone Agustin Mix Primary Care Provider + Encounter Details Date Type Department Care Team (Late st Contact Info) Description 06/28/2020 Telephone [facility] Central Scheduling Department [address] [place] [address] Telephone Intake, Staff Social History Tobacco Use [...] and can be reached at phone number [phone]. Thank you documented in this encounter Plan of Treatment Upcoming Encounters Date Type Department Care Team (Late st Contact Info) Description 02/06/2025 9:30 AM EDT Follow-Up [facility] Liver Transplant Services [address] [place] [address] [phone] Dylan Phelps MD [address] [place], [place] [phone] documented as of this encounter Visit Diagnoses Not on filedocumented in this encounter Care Teams Day Care Attendant Relationship Specialty Start Date End Date Agustin Mix [address] [place] [address] PCP - General Internal Medicine 04/15/17 documented as of this encounter
--- OUTSIDE RECORDS SUMMARY | 2025-01-05 15:08 | XMS_ITS | Encounter Summary ---
Author Organization [facility] Address [address] [place] [address] Care Team Providers Care Ladle Pourer Name Role Phone Agustin Mix Primary Care Provider + Encounter Details Date Type Department Care Team (Late st Contact Info) Description 01/21/2017 Transplant Conversio n Encounter [facility] Health Information Management [address] [place] [address] Provider, [facility] Social History Tobacco Use Types [...] Info) Description 02/06/2025 9:30 AM EDT Follow-Up [facility] Liver Transplant Services [address] [place] [address] Dylan Phelps MD [address] [place] [address] documented as of this encounter Visit Diagnoses Not on filedocumented in this encounter Additional Health Concerns Infection Onset Date Last Indicated Resolved Time 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
--- OUTSIDE RECORDS SUMMARY | 2025-01-05 15:08 | XMS_ITS | Encounter Summary ---
Author Organization [facility] Address [address] [place] [address] Care Team Providers Care Software Applications Designer Name Role Phone Agustin Mix Primary Care Provider + Encounter Details Date Type Department Care Team (Late st Contact Info) Description 12/22/2024 Results Follow-Up [facility] Transplant Department [address] [place] [address] Erika Bonds RN Social History Tobacco Use [...] Info) Description 02/06/2025 9:30 AM EDT Follow-Up [facility] Liver Transplant Services [address] [place] [address] Dylan Phelps MD [address] [place] [address] documented as of this encounter Visit Diagnoses Not on filedocumented in this encounter Care Teams Software Applications Designer Relationship Specialty Start Date End Date Agustin Mix [address] [place] [address] PCP - General Internal Medicine 04/15/17 documented as of this encounter
--- OUTSIDE RECORDS SUMMARY | 2025-01-05 15:08 | XMS_ITS | Encounter Summary ---
Author Organization [facility] Address [address] [place] [address] Care Team Providers Care Television And Radio Repairer Name Role Phone Agustin Mix Primary Care Provider + Encounter Details Date Type Department Care Team (Late st Contact Info) Description 12/30/2021 Orders Only [facility] Interventional Radiology [address] [place] [address] Avelino Otero DO [address] [place] [address] Social History Tobacco Use Types Packs/Day Years [...] Info) Description 02/06/2025 9:30 AM EDT Follow-Up [facility] Liver Transplant Services [address] [place] [address] Dylan Phelps MD [address] [place] [address] documented as of this encounter Visit Diagnoses Not on filedocumented in this encounter Care Teams Television And Radio Repairer Relationship Specialty Start Date End Date Agustin Mix [address] [place] [address] PCP - General Internal Medicine 04/15/17 documented as of this encounter
--- OUTSIDE RECORDS SUMMARY | 2025-01-05 15:08 | XMS_ITS | Encounter Summary ---
Author Organization [employer] Address [address] [place] [address] 7 [place] [address] Care Team Providers Care Appeals Rn Name Role Phone Agustin Marrero MD Primary Care Provide r Reason for Visit * Reason Comments Med Refill Encounter Details Date Type Department Care Team (Late st Contact Info) Description 05/14/2022 Refill [facility] MEDICINE [address] [place], [place] [phone] Agustin Marrero MD [address] [place] [address] Chronic midline low back pain without sciatica [...] Description 01/06/2025 11:30 AM EDT Clinical Support [facility] MEDICINE [address] [place] [address] Shwetha Collado, RN [address] [place] [address] 02/23/2025 10:00 AM EST Office Visit [facility] MEDICINE [address] [place] [address] Agustin Marrero MD [address] [place], [place] 05/31/2025 8:00 AM EST Office Visit [facility] ADULT DENTAL [address] [place] [address] Catherine Antonio [address] [place] [address] documented as of this encounter Visit Diagnoses Diagnosis Chronic midline low back pain without sciatica documented in this encounter Care Teams Appeals Rn Relationship Specialty Start Date End Date Agustin Marrero MD [address] [place] [address] PCP - General Internal Medicine 01/25/14 [facility] 06/13/16 documented as of this encounter
--- OUTSIDE RECORDS SUMMARY | 2025-01-05 15:08 | XMS_ITS | Encounter Summary ---
Author Organization [employer] Address [address] [place] [address] 7 [place] [address] Care Team Providers Care Lieutenant General Name Role Phone Agustin Marrero MD Primary Care Provide r Reason for Visit * Reason Onset Date Comments Med Refill 05/26/2023 Encounter Details Date Type Department Care Team ([facility] st Contact Info) Description 05/26/2023 Telephone [facility] MEDICINE [address] [place], [place] [phone] Agustin Marrero MD [address] [place], [place] [phone] Med Refill Social History Tobacco Use Types [...] LITE test strip To be sent to: [facility]/pharmacy #[address] [place] [address] - [address] [place] [address] documented in this encounter Plan of Treatment Upcoming Encounters Date Type Department Care Team (Late st Contact Info) Description 01/06/2025 11:30 AM EDT Clinical Support [facility] MEDICINE [address] [place] [address] Shwetha Collado RN [address] [place] [address] 02/23/2025 10:00 AM EST Office Visit [facility] MEDICINE [address] [place] [address] Agustin Marrero MD [address] [place] [address] 05/31/2025 8:00 AM EST Office Visit [facility] ADULT DENTAL [address] [place] [address] Catherine Antonio [address] [place] [address] documented as of this encounter Visit Diagnoses Not on filedocumented in this encounter Care Teams Lieutenant General Relationship Specialty Start Date End Date Agustin Marrero MD [address] [place] [address] PCP - General Internal Medicine 01/25/14 [facility] 06/13/16 documented as of this encounter
--- OUTSIDE RECORDS SUMMARY | 2025-01-05 15:08 | XMS_ITS | Encounter Summary ---
Author Organization [employer] Address [address] [place] [address] 7t [place] [address] Care Team Providers Care Photogrammetric Technician Name Role Phone Agustin Marrero MD Primary Care Provide r Encounter Details Date Type Department Care Team ([facility] st Contact Info) Description 05/05/2023 Telephone [facility] MEDICINE [address] [place], [place] [phone] Agustin Marrero MD [address] [place], [place] [phone] Social History Tobacco Use Types Packs/Day Years [...] Support [facility] MEDICINE [address] [place] [address] Shwetha Collado RN [address] [place] [address] 02/23/2025 10:00 AM EST Office Visit [facility] MEDICINE [address] [place] [address] Agustin Marrero MD [address] [place] [address] 05/31/2025 8:00 AM EST Office Visit [facility] ADULT DENTAL [address] [place] [address] Matty Antonioaris [address] [place] [address] documented as of this encounter Visit Diagnoses Not on filedocumented in this encounter Care Teams Photogrammetric Technician Relationship Specialty Start Date End Date Agustin Marrero MD [address] [place] [address] PCP - General Internal Medicine 01/25/14 [facility] 06/13/16 documented as of this encounter
--- OUTSIDE RECORDS SUMMARY | 2025-01-05 15:08 | XMS_ITS | Encounter Summary ---
Author Organization [employer] Address [address] [place] [address] 7t [place] [address] Care Team Providers Care Director Of Student Services Name Role Phone Agustin Marrero MD Primary Care Provide r Reason for Visit * Reason Comments Med Refill Encounter Details Date Type Department Care Team ([facility] st Contact Info) Description 06/04/2023 Refill [facility] MEDICINE [address] [place], [place] [phone] Natasha Nguyen MD [address] [place] [address] Gastroesophageal reflux disease, unspecified whether esophagitis present [...] EDT Clinical Support [facility] MEDICINE [address] [place] [address] Shwetha Collado, KATALINA [address] [place] [address] 02/23/2025 10:00 AM EST Office Visit [facility] MEDICINE [address] [place] [address] Agustin Marrero MD [address] [place] [address] 05/31/2025 8:00 AM EST Office Visit [facility] ADULT DENTAL [address] [place] [address] Catherine Antonio [address] [place] [address] documented as of this encounter Visit Diagnoses Diagnosis Gastroesophageal reflux disease, unspecified whether esophagitis present documented in this encounter Care Teams Director Of Student Services Relationship Specialty Start Date End Date Agustin Marrero MD [address] [place] [address] PCP - General Internal Medicine 01/25/14 [facility] 06/13/16 documented as of this encounter
--- OUTSIDE RECORDS SUMMARY | 2025-01-05 15:08 | XMS_ITS | Encounter Summary ---
Author Organization [employer] Address [address] [place] [address] 7t [place] [address] Care Team Providers Care Helmet Hat Sweatband Puncher Name Role Phone Agustin Marrero MD Primary Care Provide r Reason for Visit * Reason Comments Med Refill Encounter Details Date Type Department Care Team ([facility] st Contact Info) Description 01/01/2025 Refill [facility] MEDICINE [address] [place], [place] [phone] Agustin Marrero MD 230 [place], [place] [phone] Gastroesophageal reflux disease, unspecified whether esophagitis present [...] AM EDT Clinical Support [facility] MEDICINE [address] [place] [address] Shwetha Collado, KATALINA [address] [place] [address] 02/23/2025 10:00 AM EST Office Visit [facility] MEDICINE [address] [place] [address] Agustin Marrero MD [address] [place] [address] 05/31/2025 8:00 AM EST Office Visit [facility] ADULT DENTAL [address] [place] [address] Catherine Antonio [address] [place] [address] documented as of this encounter Visit Diagnoses Diagnosis Gastroesophageal reflux disease, unspecified whether esophagitis present documented in this encounter Additional Health Concerns Assessment Noted Time PHQ-9 Depression Total Score: 0 11/02/19 25 9:25 AM EDT documented as of this encounter Care Teams Helmet Hat Sweatband Puncher Relationship Specialty Start Date End Date Agustin Marrero MD [address] [place] [address] PCP - General Internal Medicine 01/25/14 [facility] 06/13/16 documented as of this encounter
--- OUTSIDE RECORDS SUMMARY | 2025-01-05 15:08 | XMS_ITS | Encounter Summary ---
Author Organization [employer] Address [address] [place] [address] 7[place] [address] Care Team Providers Care Accordion Tuner Name Role Phone Agustin Marrero MD Primary Care Provide r Encounter Details Date Type Department Care Team (Latest Contact Info) Description 07/16/2020 Abstract [facility] CONVERSIONS Dental, Provider, DDS Social History Tobacco [...] Description 01/06/2025 11:30 AM EDT Clinical Support [facility] MEDICINE [address] [place] [address] Shwetha Collado RN [address] [place] [address] 02/23/2025 10:00 AM EST Office Visit [facility] MEDICINE [address] [place] [address] Agustin Marrero MD 230 [place] [address] 05/31/2025 8:00 AM EST Office Visit [facility] ADULT DENTAL 230 [place] [address] Catherine Antonio 230 [place] [address] documented as of this encounter Visit Diagnoses Not on filedocumented in this encounter Care Teams Accordion Tuner Relationship Specialty Start Date End Date Agustin Marrero MD 230 [facility] [place] [address] PCP - General Internal Medicine 01/25/14 [facility] 06/13/16 documented as of this encounter
--- OUTSIDE RECORDS SUMMARY | 2025-01-05 15:08 | XMS_ITS | Encounter Summary ---
Author Organization [employer] Address [address] [place] [address] 7 [place] [address] Care Team Providers Care Utility Service Worker Name Role Phone Agustin Marrero MD Primary Care Provide r Reason for Visit * Reason Onset Date Comments Med Refill 10/16/2022 Encounter Details Date Type Department Care Team ([facility] st Contact Info) Description 10/16/2022 Telephone [facility] MEDICINE [address] [place], [place] [phone] Agustin Marrero MD [address] [place], [place] [phone] Med Refill Social History Tobacco Use Types [...] [facility] MEDICINE [address] [place] [address] Shwetha Collado RN 505 [place] [address] 02/23/2025 10:00 AM EST Office Visit [facility] MEDICINE [address] [place] [address] Agustin Marrero MD [address] [place] [address] 05/31/2025 8:00 AM EST Office Visit [facility] ADULT DENTAL [address] [place] [address] Catherine Antonio [address] [place] [address] documented as of this encounter Visit Diagnoses Not on filedocumented in this encounter Care Teams Utility Service Worker Relationship Specialty Start Date End Date Agustin Marrero MD [address] [place] [address] PCP - General Internal Medicine 01/25/14 [facility] 06/13/16 documented as of this encounter
--- OUTSIDE RECORDS SUMMARY | 2025-01-05 15:08 | XMS_ITS | Encounter Summary ---
Author Organization [employer] Address [address] [place] [address] 7[place] [address] Care Team Providers Care Coding Consultant Name Role Phone Agustin Marrero MD Primary Care Provide r Encounter Details Date Type Department Care Team (Latest Contact Info) Description 09/06/2018 Abstract [facility] CONVERSIONS Dental, Provider, DDS Social History Tobacco [...] Clinical Support [facility] MEDICINE [address] [place] [address] Shwetha Collado RN [address] [place] [address] 02/23/2025 10:00 AM EST Office Visit [facility] MEDICINE [address] [place] [address] Agustin Marrero MD 230 [place] [address] 05/31/2025 8:00 AM EST Office Visit [facility] ADULT DENTAL [address] [place] [address] Catherine Antonio [address] [place] [address] documented as of this encounter Visit Diagnoses Not on filedocumented in this encounter Care Teams Coding Consultant Relationship Specialty Start Date End Date Agustin Marrreo MD 230 [place] [id number] PCP - General Internal Medicine 01/25/14 [facility] 06/13/16 documented as of this encounter
--- OUTSIDE RECORDS SUMMARY | 2025-01-05 15:08 | XMS_ITS | Encounter Summary ---
Author Organization [employer] Address [address] [place] [address] 7 [place] [address] Care Team Providers Care Sales Inspector Name Role Phone Agustin Marrero MD Primary Care Provide r Reason for Visit * Reason Onset Date Comments Error 05/12/2023 Encounter Details Date Type Department Care Team ([facility] st Contact Info) Description 05/12/2023 Telephone [facility] MEDICINE [address] [place], [place] [phone] Agustin Marrero MD [address] [place], [place] [phone] Error Social History Tobacco Use Types Packs/Day [...] Description 01/06/2025 11:30 AM EDT Clinical Support [facility] MEDICINE [address] [place] [address] Shwetha Collado, KATALINA 505 [place] [address] 02/23/2025 10:00 AM EST Office Visit [facility] MEDICINE [address] [place] [address] Agustin Marrero MD [address] [place] [address] 05/31/2025 8:00 AM EST Office Visit [facility] ADULT DENTAL [address] [place] [address] Catherine Antonio [address] [place] [address] documented as of this encounter Visit Diagnoses Not on filedocumented in this encounter Care Teams Sales Inspector Relationship Specialty Start Date End Date Agustin Marrero MD [address] [place] [address] PCP - General Internal Medicine 01/25/14 [facility] 06/13/16 documented as of this encounter
== END 2025-01-05 13:05 | disposition home or self-care (01) ==
LOC: HO.US 13:04
PROVIDERS: PCP Internal Medicine; Visit Provider Internal Medicine
DX: N62 Hypertrophy of breast (principal)
CPT/HCPCS: 76870

== ENCOUNTER → 2025-01-05 13:06 | Outpatient (BNV) | payer OTHER, SELFPAY | PROVIDERS: PCP Internal Medicine; Visit Provider Radiology Diagnostic Radiology | DX: N62 Hypertrophy of breast (principal) | CPT/HCPCS: 76870 ==

== ENCOUNTER 2025-01-18 06:55 | Outpatient (REF) | payer OTHER, SELFPAY ==
--- OUTSIDE RECORDS SUMMARY | 2024-05-26 06:15 | XMS_ITS ---
Author Organization [facility] Reji bill [place] Address [address] [facility] [place] [address] Care Team Providers Care Prop Drawer Name Role Phone Nura Connelly MD, Agustin Primary Care Provide r Unavailable Sun Jj Unavailable [phone] Yovanny Long Unavailable [phone] REASON FOR VISIT last visit pcp 12/31/23, [...] Orally Once a day Active Vitamin D3 886952 UNIT/GM as directed Active Losartan Potassium 25 [...] nsmoker Encounters Encounter Location Date [facility] [place] [address] 05/26/2024 Yovanny Long Onychomycosis B35.1 ; Pain [...] Provider Name:Sun kenney, 03/23/2025 10:00:00 AM, [address] [place] [address], [place], [address], Procedure Notes * Category Sub-Category Detail Notes [...] use of a nail nipper and/or dremel-type shot grinder operator, to a more viable healthy nail plate [...] to maintain effectiveness in symptomatic relief - 59772 Progress Notes * Edward JONDOB:[birth year] (60 yo M)Acc No.[id number]:05/26/2024 Progress Note Patient: Edward WINTER Provider: Kishan Long D.P.M. :1965 A ge:59 Y S ex:Male Date:05/26/2024 Address:[address] [place], [place] [phone] Pcp:Agustin Connelly MD Subjective: * Chief Complaints: [...] enies. C ardiovascular: Pacemaker d enies. 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 W PW d enies. C [...] as directed Orally , Taking Vitamin D3 222097 UNIT/GM Powder as directed , Taking Losartan [...] use of a nail nipper and/or dremel-type shot grinder operator, to a more viable healthy nail plate [...] to maintain effectiveness in symptomatic relief - 10319. * Procedure Codes: 1 1721 DEBRIDE NAIL, [...] 0 05/26/2024 Generated for Francisco reagan/Eloina/Samantha on: 06:59 AM EDT History and Physical Notes * [...]
--- OUTSIDE RECORDS SUMMARY | 2024-08-29 07:00 | XMS_ITS ---
Author Organization [facility] Address [address] [place] [address] Care Team Providers Care Equipment Sterilizer Name Role Phone Nura Connelly MD, Agustin Primary Care Provide r Unavailable Sun Jj Unavailable [phone] Encounters Encounter Location Date Provider Diagnosis [address] [address] 08/29/2024 Sun Jj Plan Of Treatment Next Appt Details Provider Name:Sun kenney, 03/23/2025 10:00:00 AM, [address] [place] [address], [place], [address], Progress Notes * Edward JONDOB:[birth year] (60 yo M)Acc No.[id number]:08/29/2024 Progress Note Patient: Edward WINTER Provider: Hola Jj DPM :1965 A ge:59 Y S ex:Male Date:08/29/2024 Address:[address] [place] [address] [address], [place] Pcp:Agustin Connelly MD Subjective: * Chief Complaints: [...] 08/29/2024 Generated for Francisco reagan/Eloina/Samantha on: 1 06:59 AM EDT
--- OUTSIDE RECORDS SUMMARY | 2025-01-18 06:59 | XMS_ITS | Encounter Summary ---
Author Organization [employer] Address [address] [place] [address] 7 [place] [address] Care Team Providers Care Collar Tacker Name Role Phone Agustin Marrero MD Primary Care Provide r Reason for Visit * Reason Onset Date Comments Med Refill 03/01/2024 Encounter Details Date Type Department Care Team ([facility] st Contact Info) Description 03/01/2024 Telephone [facility] MEDICINE [address] [place], [place] [phone] Agustin Marrero MD 230 [place], [place] [phone] Med Refill Social History Tobacco Use Types [...] EST Received fax from [facility] requesting script clarification need directions. * Telephone Encounter - Manjeet Mclaughlin - 03/01/2024 2:21 PM EST TC from pt requesting medication refill. Medications needing refill : traMADol (Ultram) 50 MG table To be sent to: [facility]/pharmacy #[id number] documented in this encounter Plan of Treatment Upcoming Encounters Date Type Department Care Team ([facility] st Contact Info) Description 02/23/2025 10:00 AM EST Office Visit [facility] MEDICINE [address] [place] [address] Agustin Marrero MD 230 [place] [address] 03/24/2025 9:00 AM EST Clinical Support [facility] MEDICINE [address] [place] [address] Shwetha Collado RN 505 [place] [address] 05/31/2025 8:00 AM EST Office Visit [facility] ADULT DENTAL [address] [place] [address] Matty Antonioaris [address] [place] [address] documented as of this encounter Visit Diagnoses Not on filedocumented in this encounter Additional Health Concerns Assessment Noted Time PHQ-9 Depression Total Score: 0 12/03/19 10:31 AM EDT documented as of this encounter Care Teams Collar Tacker Relationship Specialty Start Date End Date Agustin Marrero MD 230 [place] [address] PCP - General Internal Medicine 01/25/14 [facility] 06/13/16 documented as of this encounter
--- OUTSIDE RECORDS SUMMARY | 2025-01-18 06:59 | XMS_ITS | Encounter Summary ---
Author Organization [employer] Address [address] [place] [address] [address] [place] [address] Care Team Providers Care Senior Technical Support Engineer Name Role Phone Agustin Marrero MD Primary Care Provide r Reason for Visit * Reason Onset Date Comments Med Refill 09/13/2024 Encounter Details Date Type Department Care Team ([facility] st Contact Info) Description 09/13/2024 Telephone [facility] MEDICINE [address], [place] [phone] Agustin Marrero MD [address], [place] [phone] Med Refill Social History Tobacco Use Types [...] 300 MG capsule To be sent to: [facility]/pharmacy #[id number] [place] [address] documented in this encounter Plan of Treatment Upcoming Encounters Date Type Department Care Team (Late st Contact Info) Description 02/23/2025 10:00 AM EST Office Visit [facility] MEDICINE [address] [place] [id number] Agustin Marrero MD [address] [place] [phone] 03/24/2025 9:00 AM EST Clinical Support [address] [address] Shwetha Collado, KATALINA [address] [place] [address] 05/31/2025 8:00 AM EST Office Visit [facility] ADULT DENTAL [address] [place] [address] Catherine Antonio [address] [place] [address] documented as of this encounter Visit Diagnoses Not on filedocumented in this encounter Additional Health Concerns Assessment Noted Time PHQ-9 Depression Total Score: 0 12/03/19 10:31 AM EDT documented as of this encounter Care Teams Senior Technical Support Engineer Relationship Specialty Start Date End Date Agustin Marrero MD [address] [place] [address] PCP - General Internal Medicine 01/25/14 [facility] 06/13/16 documented as of this encounter
--- OUTSIDE RECORDS SUMMARY | 2025-01-18 06:59 | XMS_ITS | Clinical Summary ---
Author Organization [employer] Address [address] [place] [address] 7[address] [place] [address] Care Team Providers Care Finance Administrator Name Role Phone Agustin Marrero MD Primary Care Provide r Allergies No known active allergies Medications Blood Glucose Monitoring Suppl (SecretBuildersStyle Beyer Lite) w/Device kit TEST 1 TIMES BY INTRADERMAL ROUTE EVERY DAY Active Continuous Blood Gluc Colorist Photography (FreeStyle Arvin 2 Asotin) device Active ferrous sulfate 325 (65 Fe) MG EC tablet Take 1 tablet by mouth in the morning. Active lactulose (Chronulac) 10 GM/15ML solution Take 15 mL by mouth in the morning and 15 mL in the evening. 021 Active magnesium oxide (Mag-Ox) 400 (240 Mg) MG tablet TAKE 2 TABLETS BY MOUTH 2 TIMES A DAY Active metFORMIN XR (Glucophage-XR) 500 MG 24 hr tablet TOME OLINDA TABLETA TODOS LOS D CON LA EXPERIMENTAL BOX TESTER Active sodium polystyrene sulfonate (Kayexalate) powder TAKE 30 GRAMS ONCE A WEEK 022 Active Lantus SoloStar 100 UNIT/ML pen 15 units 022 Active Veltassa 8.4 g pack Taking Mon-Wed-Fri [...] if needed for moderate pain. 30 tablet 024 Active FreeStyle lancetsIndication s:Type 2 diabetes mellitus without complication, with long-term current use of insulin ([facility]) USE 1 EACH DIRECTED THREE TIMES EVERY DAY 100 each 11 024 Active BD Insulin Syringe U/F 31G X 5/16 0.3 ML misc E11.9 FOR USE WITH INSULIN VIALS UNTIL YOU HAVE CHANGED OVER TO THE PENS. 024 Active B-D UF III MINI PEN NEEDLES 31G X 5 MM misc USE TO INJECT 4 TIMES A DAY SEG N LO INDICADO 024 Active ondansetron ODT (Zofran-ODT) 4 MG disintegrating tablet PLEASE SEE ATTACHED FOR DETAILED DIRECTIONS 024 Active SUMAtriptan (Imitrex) 25 MG tablet TAKE 1 TAB BY MOUTH 1 TIME IF NEEDED FOR MIGRAINE. MAY REPEAT DOSE ONCE IN 2 HOURS IF NO RELIEF. DO NOT EXCEED 2 DOSES IN 24 HOURS. 15 tablet 024 Active Continuous Glucose Sensor (FreeStyle Arvin 2 Sensor) miscIndications:T ype 2 diabetes mellitus without complication, with long-term current use of insulin ([facility]) USE DIRECTED EVERY 14 DAYS 2 each 2 024 Active tacrolimus (Prograf) 1 MG capsule Take 1 capsules (1mg) in the morning and 1 capsule (1mg) in the evening 180 capsule 024 Active Gvoke HypoPen 2-Pack 0.5 MG/0.1ML injection PLEASE SEE ATTACHED FOR DETAILED DIRECTIONS 024 Active Multiple Vitamin (Daily-Stacy Multivitamin) tablet Take 1 tablet by mouth every day 90 tablet 3 025 Active glucose blood (FREESTYLE LITE) test stripIndications: Type 2 diabetes mellitus without complications ([facility]) USE TO TEST BLOOD SUGAR THREE TIMES DAILY 300 strip 3 025 Active cholecalciferol (Vitamin D3) 25 MCG (1000 UT) tabletIndications :Type 2 diabetes mellitus without complication, with long-term current use of insulin ([facility]) TOME 1 TABLETA POR VIA ORAL TODOS LOS QUINONES 90 tablet 1 025 Active traMADol (Ultram) 50 MG [...] BEFORE BREAKFAST 90 capsule 1 025 Active naloxone (Narcan) 4 mg/0.1 mL nasal spray Administer 1 spray (4 mg) into affected nostril(s) if needed for opioid reversal. 2 each 1 025 Active NovoLOG FLEXPEN 100 UNIT/ML penIndications:Ty pe 2 diabetes mellitus without complication, with long-term current use of insulin (HCC) Use Insulin as per sliding scale TID (BG 150-200mg/dL: 10 units, 201-250 : 12 units, 251-300: 14 units, 301-350: 16 units, 351-400 18 units, >400 20 units 15 mL 025 Active naloxone (Narcan) 4 mg/0.1 mL nasal spray Administer 0.1 mL into affected nostril(s). 022 2024 Discontinued(R eorder (will not trigger notification to Pharmacy)) omeprazole (PriLOSEC) [address] capsuleIndication s:Gastroesophagea l reflux disease, unspecified whether esophagitis present TOME 1 CAPSULA POR VIA ORAL TODOS LOS QUINONES BEFORE A MEAL 90 capsule 1 025 2024 Discontinued gabapentin (Neurontin) 300 MG capsuleIndication s:Chronic midline low back pain without sciatica TAKE 1 CAPSULE BY MOUTH TWICE A DAY 60 capsule 025 2024 Discontinued NovoLOG FLEXPEN 100 UNIT/ML penIndications:Ty pe 2 diabetes mellitus without complication, with long-term current use of insulin (HCC) Use Insulin as per sliding scale TID (BG 150-200mg/dL: 10 units, 201-250 : 12 units, 251-300: 14 units, 301-350: 16 units, 351-400 18 units, >400 20 units 15 mL 025 2024 Discontinued(R eorder (will not trigger [...] midline low back pain without sciatica Last PAN PUSHER Agreement: 09/01/23 Normal oral exam 12/17/2023 Class [...] for mildly dilated CBD. ERCP 11/21/2022 at [facility] showed single severe biliary stricture [...] CBD. 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 The stricture was post-surgical. A biliary sphinterotomy was performed. A temporary stent was placed in the CBP They recommended to repeat ERCP in 3 months to remove stent. Pt is already scheduled for 02/20/2023 for ENDOSCOPIC RETROGRADE CHOLANGIOPANCREATOGRAPHY WITH REMOVAL OF FOREIGN BODY(S)/STENT(S)/PANCREATIC DUCT(S) WITH POSSIBLE MODERATE SEDATION [78784 (CPT )] Partial edentulism 01/14/2023 Hospital discharge [...] CBD. Pt is s/p ERCP 11/21/2022 at [facility] Impression: A single severe biliary [...] local wound injections. He was seen by patient financial services specialist at [facility] who discussed that he needed [...] local wound injections. He was seen by patient financial services specialist at [facility] who discussed that he needed [...] was refer to the Pain Clinic at [facility] he has an appointment for [...] lower leg 03/02/2019 Bacteremia 02/25/2019 Bacterial peritonitis (CMS/HCC) 02/25/2019 Diabetes mellitus 02/25/2019 Edema of lower [...] 20 units He isunder the care of [facility] Endocr[facility]ology given that he is [...] >400 20 units He was discharged from [facility] diabetes clinic due to non compliance. He isunder the care of [facility] Endocrinology given that he is a liver transplant patient, last seen 2024. Hgb A1c 07/05/2024: 7.2 from 7 Eye exam ordered previous visit Microalbumin 04/06/2024 was 68 Foot check risk of zero Pt advised to: adhere to diabetic diet Previous visit pt was referred to [facility] Plan: continue current regimen Pt [...] >400 20 units He was discharged from [facility] diabetes clinic due to non compliance. He isunder the care of [facility] Endocrinology given that he is a liver transplant patient, last seen 2024. Hgb A1c 04/05/2024: 7 from 7.4 Eye exam ordered previous visit Microalbumin 11/01/2020 was 43 , ordered today Foot check risk of zero Pt advised to: adhere to diabetic diet Previous visit pt was referred to [facility] Plan: continue current regimen Pt [...] >400 20 units He was discharged from [facility] diabetes clinic due to non compliance. He isunder the care of [facility] Endocrinology given that he is a liver transplant patient, last seen 04/21/2023. Hgb A1c 12/03/2023: 7.4 from 7.1 Eye exam ordered previous visit Microalbumin 11/01/2020 was 43 Foot check risk of zero Pt advised to: adhere to diabetic diet Previous visit pt was referred to [facility] Plan: continue current regimen Pt [...] >400 20 units He was discharged from [facility] diabetes clinic due to non compliance. He isunder the care of [facility] Endocrinology given that he is a liver transplant patient, last seen 04/21/2023. Hgb A1c 06/16/2023: 7.1 Eye exam ordered previous visit Microalbumin 11/01/2020 was 43 Foot check risk of zero Pt advised to: adhere to diabetic diet Previous visit pt was referred to [facility] Plan: continue current regimen Pt [...] >400 20 units He was discharged from [facility] diabetes clinic due to non compliance. He is supposed to be under the care of [facility] Endocrinology given that he is a liver transplant patient, last seen 08/01/2021. He had an appointment scheduled in August but he no showed. Today he tells me he will stay at [facility] Hgb A1c 02/12/2023 was 6.7 Eye exam ordered previous visit Microalbumin 11/01/2020 was 43 Foot check risk of zero Pt advised to: adhere to diabetic diet Previous visit pt was referred to [facility] Plan: continue current regimen Pt [...] >400 20 units He was discharged from [facility] diabetes clinic due to non compliance. He is supposed to be under the care of [facility] Endocrinology given that he is a liver transplant patient, last seen 08/01/2021. He had an appointment scheduled in August but he no showed. Today he tells me he will stay at [facility] Hgb A1c 09/02/2021 was 6.5 Eye exam ordered previous visit Microalbumin 11/01/2020 was 43 Foot check risk of zero Pt advised to: adhere to diabetic diet Previous visit pt was referred to [facility] Plan: continue current regimen check [...] >400 20 units He was discharged from [facility] diabetes [facility] due to non compliance He is now under the care of [facility] Endocrinology given that he is a liver transplant patient, last seen 08/01/2021 Hgb A1c 09/02/2021 was 6.5 Eye exam ordered previous visit Microalbumin 11/01/2020 was 43 Foot check risk of zero Pt advised to: adhere to diabetic diet Previous visit pt was referred to [facility] Plan: continue current regimen check [...] >400 20 units He was discharged from [facility] diabetes clinic due to non compliance He is now under the care of [facility] Endocrinology given that he is a liver transplant patient, last seen 08/01/2021 Hgb A1c 04/22/2021 was 6.2 Eye exam ordered previous visit Microalbumin 11/01/2020 was 43 Foot check risk of zero Pt advised to: adhere to diabetic diet Previous visit pt was referred to [facility] Plan: continue current regimen check [...] for gynecomastia Anemia 09/15/2017 S/P liver transplant (CMS/HCC) 08/18/2017 Overview (04/21/2022): Last Assessment & Plan: [...] the care of the liver clinic at [facility], last seen 08/01/2024 Dr Richardson Assessment & Plan (07/05/2024 10:05 AM EDT): Under the care of the liver clinic at [facility] Assessment & Plan (06/16/2023 9:29 AM EST): Under the care of the liver clinic at [facility] Assessment & Plan (04/22/2022 8:26 AM EST): Pt here for a f/u 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 was found to have elevated LFT's (AP/AST/ALT 710/141/254) during routine outpatient blood work 05/01/2020 and was referred to [facility] where his LFT's were 608/77/177 [...] continue to do more CT'S Alcoholic cirrhosis (CMS/HCC) 06/17/2016 Assessment & Plan (06/16/2023 9:29 AM [...] Encounters Date Type Department Care Team Description 01/17/2025 Telephone [facility] MEDICINE [address] [place] [phone] Agustin Marrero MD 01/13/2025 Refill [facility] MEDICINE [address] [place] [address] Agustin Marrero MD Type 2 diabetes mellitus without complication, with long-term current use of insulin ([facility]) 01/06/2025 11:30 AM EDT Clinical Support [facility] MEDICINE [address] [place] [address] Shwetha Collado, fireperson right-sided thoracic back 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 [place] [address] Agustin Marrero MD Gastroesophageal reflux disease, unspecified whether esophagitis present 12/27/2024 Refill [facility] MEDICINE [address] [place] [address] Lela Wu MD Primary insomnia 12/23/2024 Orders Only [facility] External Provider, [facility] 12/20/2024 Refill [facility] MED[facility]INE [address] [place] [address] Agustin Marrero MD Chronic midline low back pain without sciatica 12/16/2024 Telephone [facility] MEDICINE [address] [place] [address] Agustin Marrero MD Appointment 12/13/2024 Telephone [facility] MEDICINE [address] [place] [address] Agustin Marrero MD fyi 12/10/2024 Refill [facility] MEDICINE [address] [place] [address] Agustin Marrero MD 12/05/2024 Refill [facility] MEDICINE [address] [place] [address] Agustin Marrero MD Primary insomnia; Chronic midline low back pain without sciatica 12/05/2024 Refill [facility] MEDICINE [address] [place] [address] Agustin Marrero MD Chronic midline low back pain without sciatica 11/18/2024 Travel 11/18/2024 Telephone [facility] MED & PEDS [address] [place] [address] Shwetha Collado, RN PAN PUSHER 11/17/2024 Results Follow-Up [facility] MEDICINE [address] [place] [phone] Agustin Marrero MD POCT Glucose, POCT HGB A1C, TSH with Reflex to Free T4, Additional followed-up results: 6 11/16/2024 10:00 AM EDT Office Visit [facility] ADULT DENTAL [address] [place] [phone] [place] Missing teeth, acquired (Primary Dx); Dental calculus; Dental plaque; Generalized gingival recession; Chronic periodontal disease 11/01/2024 9:15 AM EDT Office Visit [address] [address] Agustin Marrero MD Type 2 diabetes mellitus without complication, with long-term current use of insulin (CMS/HCC) (Primary Dx); Chronic midline low back pain without sciatica; Primary insomnia; Tubular adenoma; S/P liver transplant (CMS/HCC); Essential hypertension; Pure hypercholesterolemia; Gynecomastia 11/01/2024 Travel 10/31/[address] [address] Agustin Marrero MD chart prep 10/25/[address] [address] Agustin Marrero MD Durable Medical Equipment 10/25/2024 Patient Outreach [facility] MED & PEDS [address] [place] [address] Agustin Marrero MD Pre-visit Planning ([facility] unable to complete) from Last 3 Months Immunizations Immunization Administration [...] Description 02/23/2025 10:00 AM EST Office Visit [facility] MEDICINE [address] [place] [address] Agustin Marrero MD [address] [place] [phone] 03/24/2025 9:00 AM EST Clinical Support [facility] MEDICINE [address] [place] [address] Shwetha Collado RN [address] [place] [address] 05/31/2025 8:00 AM EST Office Visit [facility] ADULT DENTAL [address] [place] [address] Matty Antonioaris [address] [place] [address] Health Maintenance Due Date Last Done Comments [...] Procedure Name Priority Date/Time Associated Diagnosis Comments US SCROTUM Routine 01/06/2025 12:43 PM EDT Gynecomastia POCT ZOË-14 URINE DRUG SCREEN Routine 01/06/2025 11:48 AM EDT Chronic right-sided thoracic back pain BI MAMMOGRAM DIAGNOSTIC TOMOSYNTHESIS BILATERAL Routine 12/23/2024 [...] complication, with long-term current use of insulin ([facility]) POCT GLUCOSE Routine 11/01/2024 9:33 AM EDT Type 2 diabetes mellitus without complication, with long-term current use of insulin ([facility]) PERIODIC ORAL EVALUATION - ESTABLISHED PATIENT Routine 05/17/2024 10:00 AM EST ALBUMIN, RANDOM URINE W/CREATININE Routine 04/06/2024 8:10 AM EST Type 2 diabetes mellitus without complication, with long-term current use of insulin ([facility]) LIPID PANEL, STANDARD Routine 04/06/2024 8:10 AM EST Type 2 diabetes mellitus without complication, with long-term current use of insulin (CMS/[facility]) BITEWINGS - 4 RADIOGRAPHIC IMAGES Routine 10/13/2023 11:00 AM EDT COLONOSCOPY Routine 06/28/2021 from Last 3 Months or Most Recently Relevant to Health Maintenance Results * US Scrotum (01/06/2025 12:43 PM EDT) Anatomical Region Laterality Modality Body Ultrasound 01/06/2025 12:4 3 PM EDT Narrative 01/06/2025 12:44 PM EDT [address] [address] Ultrasound Report Signed Patient: Edward Jon MR#: [id number] : 1965 Acct:[id number] Age/Sex: 60 / M ADM Date: 01/05/25 Loc: HO.US Attending Dr: Agustin Mix MD Ordering Physician: Agustin Mix MD Date of Service: 01/05/25 Procedure(s): US scrotum Accession Number(s): [id number] cc: Agustin Mix MD Reason for Exam: gynecomastia CLINICAL HISTORY: gynecomastia US Scrotum with Doppler Comparison: None provided Findings: Right testicle normal echotexture, 3.5 x 1.5 x 2.7 cm. Left testicle normal echotexture, 3.5 x 1.4 x 2.1 cm. Color Doppler and arterial/venous spectral tracings of both testicles within normal limits. Evaluation of the right testis mildly limited by the presence of a penile pump. 2 mm left epididymal cyst. Unremarkable right epididymis. No varicoceles. Mild relative prominence of the right spermatic cord incidentally noted. No hydroceles. IMPRESSION: Unremarkable bilateral testes. This document has been electronically signed by: Fabiana Soliz MD on 01/06/2025 12:43:02 Dictated By: Fabiana Soliz MD Signed By: <Electronically signed by Fabiana Soliz MD in OV> 01/06/25 1243 DD/ 1243 TD/TT: 01/06/25 1243 Tilting Saw Operator: Procedure Note Donotuseinterpreter, Image - 01/06/[address] [address] Ultrasound Report Signed Patient: Edward JonMR#: [id number] : 1965Acct:[id number] Age/Sex: 60 / MADM Date: 01/05/25 Loc: .US Attending Dr: Agustin Mix MD Ordering Physician: Agustin Mix MD Date of Service: 01/05/25 Procedure(s): US scrotum Accession Number(s): [id number] cc: Agustin Mix MD Reason for Exam: gynecomastia CLINICAL HISTORY: gynecomastia US Scrotum with Doppler Comparison: None provided Findings: Right testicle normal echotexture, 3.5 x 1.5 x 2.7 cm. Left testicle normal echotexture, 3.5 x 1.4 x 2.1 cm. Color Doppler and arterial/venous spectral tracings of both testicles within normal limits. Evaluation of the right testis mildly limited by the presence of a penile pump. 2 mm left epididymal cyst. Unremarkable right epididymis. No varicoceles. Mild relative prominence of the right spermatic cord incidentally noted. No hydroceles. IMPRESSION: Unremarkable bilateral testes. This document has been electronically signed by: Fabiana Soliz MD on 01/06/2025 12:43:02 Dictated By: Fabiana Soliz MD Signed By: <Electronically signed by Fabiana Soliz MD in OV> 01/06/25 1243 DD/ 1243 TD/TT: 01/06/25 1243 Tilting Saw Operator: us Agustin Connelly MD IMG US PROCEDURES Donte andrey Result - Final * POCT ZOË-14 Urine Drug Screen (01/06/2025 11:48 AM EDT) THC Negative Negative Cocaine Screen, Urine Negative Negative Opiate Screen, Urine Negative Negative Methamphetamine Screen Urine Negative Negative Amphetamine Screen, Urine Negative Negative Benzodiazepines Screen, Urine Negative Negative Barbiturate Screen, Urine Negative Negative Methadone Screen, Urine Negative Negative Buprenophine Screen, Urine Negative Negative TCA, Urine Negative Negative MDMA Urine Negative Negative ng/mL Oxycodone Screen, Urine Negative Negative Phencyclidine (PCP), Urine Negative Negative Propoxyphene, Urine Negative Negative Fentanyl, Urine Negative Negative Urine Urine specimen obtained by clean catch procedure / Unknown 01/06/2025 11:48 AM EDT Narrative Shwetha Collado, RN - 01/06/2025 11:48 AM EDT .UTOX cup Lot#[id number] Exp. 01/24/26 Internal Pass Control Agustin Connelly MD POINT OF CARE TEST EN TER/EDIT ORDERABLES Final Result * BI Mammogram Diagnostic Tomosynthesis Bilateral (12/23/2024 1:50 PM EDT) Anatomical Region Laterality Modality Breast Bilateral Mammography 12/23/2024 1:50 PM EDT Narrative 12/23/2024 4:47 PM EDT [facility] [place] [address] Mammography Report Signed Patient: Edward Jon MR#: [id number] : 1965 Acct:[id number] Age/Sex: 59 / M ADM Date: 12/23/24 Loc: HO.MAMMO Attending Dr: Freddy Sunshine MD Ordering Physician: Freddy Sunshine MD Results: 2Beni gn Findings Date of Service: 12/23/24 Follow Up: 1 Year From [facility] ina Mammogram Procedure(s): MM tomosynthesis diagnostic BI Accession Number(s): [id number] cc: Freddy Sunshine MD; Agustin Mix MD [...] Sandra Robertson MD 12/23/2024 04:44 PM EDT RP Dictated By: Sandra Robertson MD Signed By: <Electronically signed by Sandra Robertson MD in OV> 12/23/24 1644 DD/ 1350 TD/TT: 12/23/24 1350 Tilting Saw Operator: Procedure Note Donotuseinterpreter, Image - 12/23/2024 [facility] [address] [place] [address] Mammography Report Signed Patient: Edward JonMR#: [id number] : 1965Acct:[id number] Age/Sex: 59 / MADM Date: 12/23/24 Loc: HO.MAMMO Attending Dr: Freddy Sunshine MD Ordering Physician: Freddy Sunshine MDResults: 2Beni gn Findings Date of Service: 12/23/24Follow Up: 1 Year From Orig ina Mammogram Procedure(s): MM tomosynthesis diagnostic BI Accession Number(s): [id number] cc: Freddy Sunshine MD; Agustin Mix MD [...] Sandra Robertson MD 12/23/2024 04:44 PM EDT RP Workstation: Rollad Dictated By: Sandra Robertson MD Signed By: <Electronically signed by Sandra Robertson MD in OV> 12/23/24 1644 DD/ 1350 TD/TT: 12/23/24 1350 Tilting Saw Operator: [facility] External Provider IMG BI PROCEDURES Final Result * Prolactin, Dilution Study (11/01/2024 10:10 AM EDT) Prolactin, Undiluted 5.4 2.0 - 18.0 ng/mL [facility] Prolactin, Diluted SEE NOTE 2.0 - 18.0 ng/mL [facility] Comment:Result confirmed by 1:100 dilution. No high dosehook effect detected.Prolactin dilution studies are done to determine ifthere is a high-dose hook effect (i.e. a non-linearassay response due to a very high concentration ofProlactin). This is reported to occur at Prolactinconcentrations at or above 30,000 ng/mL.This test is not recommended for identifyingmacroprolactin. The [facility], Prolactin, Total and Monomeric is therecommended test (Order code 30063).THIS TEST WAS PERFORMED AT:[facility] [address] [id number] MONTES MD Blood Venous blood specimen / Unknown 11/01/2024 10:10 AM EDT 11/01/2024 11:06 AM EDT Agustin Connelly MD LAB BLOOD ORDERABLES Final Result Performing Organization Address City/[facility]/ZIP Co de Phone Number [facility] [address] [place] [phone] * TSH with Reflex to Free T4 (11/01/2024 10:10 AM EDT) TSH reflex Free T4 1.17 0.32 - 4.0 uIU/mL [facility] Blood Venous blood specimen / Unknown 11/01/2024 10:10 AM EDT 11/01/2024 11:06 AM EDT Agustin Connelly MD LAB BLOOD ORDERABLES Final Result Performing Organization Address [facility] Co de Phone Number [facility] [address] [place] [phone] * Estradiol (11/01/2024 10:10 AM EDT) Estradiol Ultra Sensitive 21 < OR = 29 pg/mL [facility] Comment:This test was develo ped and its analytical performancecharacteristics have been determined by [facility].It has not been cleared or approved by the FDA. This assayhas been validated pursuant to the CLIA regulations and isused for clinical purposes.THIS TEST WAS PERFORMED AT:[facility]/RAMIREZ [id number] [facility] [place] [address]NXGZFWALLY PHILIPEP MD,PHD,TR Blood Venous blood specimen / Unknown 11/01/2024 10:10 AM EDT 11/01/2024 11:06 AM EDT Agustin Connelly MD LAB BLOOD ORDERABLES Final Result Performing Organization Address City/[facility]/ZIP Co de Phone Number [facility] [address] [place] [phone] * (ABNORMAL) Testosterone, Free (Dialysis) And Total, MS (11/01/2024 10:10 AM EDT) Testosterone, Total 212(A) 250 - 1100 ng/dL [facility] Comment:For additional infor bina, please refer tohttp://education.[employer]/faq/AqzxgGwstyvhbwylnGOLOPSFSY790(This link is being provided for informational/educational purposes only.)This test was developed and its analytical performancecharacteristics have been determined by [employer] [place], [place]. It hasnot been cleared or approved by the U.S. Food and DrugAdministration. This assay has been validated pursuantto the CLIA regulations and is used for clinicalpurposes. Testosterone, Free 25.0(A) 35.0 - 155.0 pg/mL [facility] Comment:This test was develo ped and its analytical performancecharacteristics have been determined by [employer] [place] It hasnot been cleared or approved by the U.S. Food and DrugAdministration. This assay has been validated pursuantto the CLIA regulations and is used for clinicalpurposes.THIS TEST WAS PERFORMED AT:[employer]/[facility]-[id number] [place] [address]BMTMOALRITU CLAY MD,PHD Blood Venous blood specimen / Unknown 11/01/2024 10:10 AM EDT 11/01/2024 11:06 AM EDT us Agustin Connelly MD LAB BLOOD ORDERABLES Final Result [facility] [address] [place] [address] [phone] * (ABNORMAL) LH (11/01/2024 10:10 AM EDT) Lutenizing Hormone 23.5(A) 1.6 - 15.2 mIU/mL [facility] Comment:THIS TEST WAS PERFOR MED AT:[employer] [place] [address]OPKSTKESHAWN MONTES MD Blood Venous blood specimen / Unknown 11/01/2024 10:10 AM EDT 11/01/2024 11:06 AM EDT Agustin Connelly MD LAB BLOOD ORDERABLES Final Result Performing Organization Address City/[facility]/ZIP Co de Phone Number [facility] [address] [place] [address] [phone] * (ABNORMAL) FSH (11/01/2024 10:10 AM EDT) Pathologist [facility] Follicle Stimulating Hormone 42.0(A) 1.4 - 12.8 mIU/mL [facility] Comment:THIS TEST WAS PERFOR MED AT:[employer] [id number] [place] [address]MYIPUCHERRI MONTES MD Blood Venous blood specimen / Unknown 11/01/2024 10:10 AM EDT 11/01/2024 11:06 AM EDT Agustin Connelly MD LAB BLOOD ORDERABLES Final Result Performing Organization Address City/[facility] Co de Phone Number [facility] [address] [place] [address] [phone] * (ABNORMAL) Comprehensive Metabolic Panel (11/01/2024 10:10 AM EDT) Pathologist [facility] Sodium 141 135 - 145 mmol/L [facility] Potassium 4.8 3.3 - 5.1 mmol/L [facility] Chloride 106 96 - 108 mmol/L [facility] Carbon Dioxide 27 22 - 29 mmol/L [facility] Anion Gap 13 12 - 20 [facility] Urea Nitrogen (BUN) 21(H) 9 - 16 mg/dL [facility] Creatinine, Serum 1.28 0.5 - 1.4 mg/dL [facility] Estimated Glomerular Filt Rate 57 [facility] Comment:Chronic Kidney Disea se: Estimated GFR < 60 mL/min/1.42f6Aquwjk Kidney Disease: Estimated GFR < 15 mL/min/1.73m2 Glucose 183(H) 60 - 115 mg/dL [facility] Calcium 9.5 8.4 - 10.2 mg/dL [facility] Bilirubin, Total 0.5 0.0 - 1.0 mg/dL [facility] Aspartate Amino Transferase 26 5 - 37 U/L [facility] Alanine Aminotransferase 40 0 - 40 U/L [facility] Total Protein 6.9 6.5 - 8.0 g/dL [facility] Albumin Level 4.6 3.5 - 5.0 g/dL [facility] Alkaline Phosphatase 112 39 - 117 U/L [facility] Blood Venous blood specimen / Unknown 11/01/2024 10:10 AM EDT 11/01/2024 11:06 AM EDT Agustin Connelly MD LAB BLOOD ORDERABLES Final Result [facility] [address] [place] [phone] * (ABNORMAL) POCT HGB A1C (11/01/2024 [...] Media Lot # [id number] Lot# Expiration Date [id number] Blood Capillary blood specimen / Unknown 11/01/2024 9:33 AM EDT Agustin Connelly MD POINT OF CARE TEST EN TER/EDIT ORDERABLES Final Result * (ABNORMAL) Albumin, Random Urine W/Creatinine (04/06/2024 8:10 AM EST) Creatinine, Urine 216.22 mg/dL [facility] Microalbumin Urine 68.0 mg/L H [facility] Microalbum Creatinine Ratio Ur 31.4(H) <30 ug/mg cr [facility] Comment:Albumin/Creatinine R atio Reference Ranges: Normal: < 30 ug/mg creatinine Microalbuminuria: 30 - 300 ug/mg creatinineClinical Albuminuria: > 300 ug/mg creatinine Urine (Urine, Random) 04/06/2024 8:10 AM EST 04/06/2024 11:40 AM EST Agustin Connelly MD LAB URINE ORDERABLES Final Result [facility] [address] [place], [place] [phone] * (ABNORMAL) Lipid Panel, Standard (04/06/2024 8:10 AM EST) Triglycerides 109 <150 mg/dL [facility] Comment:Desirable Triglyceri de: less than 150 mg/dLBorderline High Triglyceride 150-199 mg/dLHigh Triglyceride: 200-499 mg/dLVery High Triglyceride: greater than or equal to 5OO mg/dL Cholesterol 177 <200 mg/dL [facility] Comment:Desirable Cholestero l: less than 200 mg/dLBorderline High Cholesterol: 200-239 mg/dLHigh Cholesterol: greater than 239 mg/dL LDL Cholesterol Calculated 115(H) <100 mg/dL [facility] Comment:Desirable LDL: less than 100 mg/dLNear Optimal/Above Optimal LDL: 110- 129 mg/dLBorderline High LDL: 130-159 mg/dLHigh LDL: 160-189 mg/dLVery High LDL: greater than or equal to 190 mg/dL HDL Cholesterol 41 >40 mg/dL [facility] Comment:Desirable HDL: great er than 40 mg/dL Note: This HDL assay may give artificially low results in patients with liver disease. Blood Venous blood specimen / Unknown 04/06/2024 8:10 AM EST 04/06/2024 11:51 AM EST Agustin Connelly MD LAB BLOOD ORDERABLES Final Result [facility] [address] [place] [address] [phone] * Colonoscopy (06/28/2021) Colonoscopy Normal Normal 06/28/2021 Narrative Shanel Bo - 06/28/2021 9:58 AM EST Recommended 3 year follow up per GI notes ( [facility] ) Historical Provider HEALTH MAINTENANCE Edited Result - Final from Last 3 Months or Most Recently Relevant to Health Maintenance Insurance [facility] ONE CARE < 65 [place] [id number] DENTAL - [facility] [address] [place] [address] Care Teams Finance Administrator Relationship Specialty Start Date End Date Agustin Marrero MD [address] [place] [address] [place] [address] PCP - General Internal Medicine 01/25/14 [facility] 06/13/16
--- OUTSIDE RECORDS SUMMARY | 2025-01-18 06:59 | XMS_ITS | Encounter Summary ---
Author Organization [employer] Address [address] [place] [address] 7 [place] [address] Care Team Providers Care Director Of Exhibit Development Name Role Phone Agustin Marrero MD Primary Care Provide r Reason for Visit * Reason Onset Date Comments Med Refill 10/04/2024 Encounter Details Date Type Department Care Team ([facility] st Contact Info) Description 10/04/2024 Telephone [facility] [address] [place], [place] [phone] Agustin Marrero MD [address] [place], [place] [phone] Med Refill Social History Tobacco Use Types [...] 10 MG tablet To be sent to: [facility]/pharmacy #[id number] [place] [address] documented in this encounter Plan of Treatment Upcoming Encounters Date Type Department Care Team (Late st Contact Info) Description 02/23/2025 10:00 AM EST Office Visit [facility] [address] [place] [address] Agustin Marrero MD [address] [place] [address] 03/24/2025 9:00 AM EST Clinical Support [facility] [address] [place] [address] Shwetha Collado, KATALINA [address] [place] [address] 05/31/2025 8:00 AM EST Office Visit [facility] ADULT DENTAL [address] [place] [address] Catherine Antonio [address] [place] [address] documented as of this encounter Visit Diagnoses Not on filedocumented in this encounter Additional Health Concerns Assessment Noted Time PHQ-9 Depression Total Score: 0 12/03/19 10:31 AM EDT documented as of this encounter Care Teams Director Of Exhibit Development Relationship Specialty Start Date End Date Agustin Marrero MD [address] [place] [address] PCP - General Internal Medicine 01/25/14 [facility] 06/13/16 documented as of this encounter
--- OUTSIDE RECORDS SUMMARY | 2025-01-18 06:59 | XMS_ITS | Encounter Summary ---
Author Organization [employer] Address [address] [place] [address] 7t [place] [address] Care Team Providers Care Pattern Ruler Name Role Phone Agustin Marrero MD Primary Care Provide r Encounter Details Date Type Department Care Team ([facility] st Contact Info) Description 12/24/2023 Telephone [facility] MEDICINE [address] [place], [place] [phone] Agustin Marrero MD [address] [place], [place] [phone] Social History Tobacco Use Types Packs/Day Years [...] Description 02/23/2025 10:00 AM EST Office Visit [facility] MEDICINE [address] [place] [address] Agustin Marrero MD [address] [place] [address] 03/24/2025 9:00 AM EST Clinical Support [facility] MEDICINE [address] [place] [address] Shwetha Collado, RN [address] [place] [address] 05/31/2025 8:00 AM EST Office Visit [facility] ADULT DENTAL [address] [place] [address] Paco, Catherine [address] [place] [address] documented as of this encounter Visit Diagnoses Not on filedocumented in this encounter Additional Health Concerns Assessment Noted Time PHQ-9 Depression Total Score: 0 12/03/19 24 10:31 AM EDT documented as of this encounter Care Teams Pattern Ruler Relationship Specialty Start Date End Date Agustin Marrero MD [address] [place] [address] PCP - General Internal Medicine 01/25/14 [facility] 06/13/16 documented as of this encounter
--- OUTSIDE RECORDS SUMMARY | 2025-01-18 06:59 | XMS_ITS | Encounter Summary ---
Author Organization [employer] Address [address] [place] [address] 7t [place] [address] Care Team Providers Care Welder Assembler Name Role Phone Agustin Marrero MD Primary Care Provide r Reason for Visit * Reason Comments Med Refill Encounter Details Date Type Department Care Team ([facility] st Contact Info) Description 11/02/2023 Refill [facility] MEDICINE [address] [place], [place] [phone] Lela Wu MD [address] [place], [place] [phone] Primary insomnia Social History Tobacco Use Types [...] Description 02/23/2025 10:00 AM EST Office Visit [facility] MEDICINE [address] [place] [address] Agustin Marrero MD [address] [place] [address] 03/24/2025 9:00 AM EST Clinical Support [facility] MEDICINE [address] [place] [address] Shwetha Collado RN [address] [place] [address] 05/31/2025 8:00 AM EST Office Visit [facility] ADULT DENTAL [address] [place] [address] Catherine Antonio [address] [place] [address] documented as of this encounter Visit Diagnoses Diagnosis Primary insomnia Persistent disorder of initiating or maintaining sleep documented in this encounter Additional Health Concerns Assessment Noted Time PHQ-9 Depression Total Score: 5 06/16/19 24 9:35 AM EST documented as of this encounter Care Teams Welder Assembler Relationship Specialty Start Date End Date Agustin Marrero MD [address] [place] [address] PCP - General Internal Medicine 01/25/14 [facility] 06/13/16 documented as of this encounter
--- OUTSIDE RECORDS SUMMARY | 2025-01-18 06:59 | XMS_ITS | Encounter Summary ---
Author Organization [facility] Address [address] [place] [address] Care Team Providers Care Plaster Caster Name Role Phone Agustin Mix Primary Care Provider + Encounter Details Date Type Department Care Team (Late st Contact Info) Description 01/01/2021 Orders Only [facility] Medicine [address] [place] [address] Sreedhar Sotelo MD [address] [place], [place] [phone] Social History Tobacco Use Types Packs/Day Years [...] [facility] Transplant Services [address] [place], [place] [phone] Dylan Phelps MD [address] [place] [address] documented as of this encounter Visit Diagnoses Not on filedocumented in this encounter Care Teams Plaster Caster Relationship Specialty Start Date End Date Agustin Mix [address] [place] [address] PCP - General Internal Medicine 04/15/17 documented as of this encounter
--- OUTSIDE RECORDS SUMMARY | 2025-01-18 06:59 | XMS_ITS | Encounter Summary ---
Author Organization [employer] Address [address] [place] [address] 7 [place] [address] Care Team Providers Care Beehive Kiln Charcoal Burner Name Role Phone Agustin Marrero MD Primary Care Provide r Reason for Visit * Reason Onset Date Comments Med Refill 03/01/2024 Encounter Details Date Type Department Care Team ([facility] st Contact Info) Description 03/01/2024 Telephone [facility] [address] [place], [place] [phone] Agustin Marrero MD [address] [place], [place] [phone] Med Refill Social History Tobacco Use Types [...] 2:22 PM EST Medication was sent to [facility]#[id number] on 02/29/24. * Telephone Encounter - Manjeet Mclaughlin - 03/01/2024 2:17 PM EST TC from pt requesting medication refill. Medications needing refill : 1- zolpidem (Ambien) 10 MG tablet To be sent to: [facility]/pharmacy #[id number] documented in this encounter Plan of Treatment Upcoming Encounters Date Type Department Care Team (Late st Contact Info) Description 02/23/2025 10:00 AM EST Office Visit [facility] [address] [place] [phone] Agustin Marrero MD [address] [place] [address] 03/24/2025 9:00 AM EST Clinical Support [facility] [address] [place] [address] Shwetha Collado, KATALINA [address] [place] [address] 05/31/2025 8:00 AM EST Office Visit [facility] ADULT DENTAL [address] [place] [address] Catherine Antonio [address] [place] [address] documented as of this encounter Visit Diagnoses Not on filedocumented in this encounter Additional Health Concerns Assessment Noted Time PHQ-9 Depression Total Score: 0 12/03/19 24 10:31 AM EDT documented as of this encounter Care Teams Beehive Kiln Charcoal Burner Relationship Specialty Start Date End Date Agustin Marrero MD [address] [place] [address] PCP - General Internal Medicine 01/25/14 [facility] 06/13/16 documented as of this encounter
--- OUTSIDE RECORDS SUMMARY | 2025-01-18 06:59 | XMS_ITS | Encounter Summary ---
Author Organization [employer] Address [address] [place] [address] 7t [place] [address] Care Team Providers Care Combined Rail Operator Name Role Phone Agustin Marrero MD Primary Care Provide r Reason for Visit * Reason Comments Med Refill Encounter Details Date Type Department Care Team ([facility] st Contact Info) Description 10/20/2023 Refill [facility] [address] [place], [place] [phone] Agustin Marrero MD [address] [place] [address] Chronic midline low back pain without sciatica [...] Description 02/23/2025 10:00 AM EST Office Visit [facility] MED[facility]INE [address] [place] [address] Agustin Marrero MD [address] [place] [address] 03/24/2025 9:00 AM EST Clinical Support [facility] [address] [place] [address] Shwetha Collado, KATALINA [address] [place] [address] 05/31/2025 8:00 AM EST Office Visit [facility] ADULT DENTAL [address] [place] [address] Catherine Antonio [address] [place] [address] documented as of this encounter Visit Diagnoses Diagnosis Chronic midline low back pain without sciatica documented in this encounter Additional Health Concerns Assessment Noted Time PHQ-9 Depression Total Score: 5 06/16/19 24 9:35 AM EST documented as of this encounter Care Teams Combined Rail Operator Relationship Specialty Start Date End Date Agustin Marrero MD [address] [place] [address] PCP - General Internal Medicine 01/25/14 [facility] 06/13/16 documented as of this encounter
--- OUTSIDE RECORDS SUMMARY | 2025-01-18 06:59 | XMS_ITS | Encounter Summary ---
Author Organization [facility] Address [address] [place] [address] Care Team Providers Care Principal Engineer Name Role Phone Agustin Mix Primary Care Provider + Encounter Details Date Type Department Care Team (Late st Contact Info) Description 06/28/2020 Telephone [facility] Central Scheduling Department [address] [place] [address] Telephone Intake, Staff Social History Tobacco Use [...] and can be reached at phone number [phone]. Thank you documented in this encounter Plan of Treatment Upcoming Encounters Date Type Department Care Team (Late st Contact Info) Description 02/06/2025 9:30 AM EDT Follow-Up [facility] Liver Transplant Services [address] [place] [address] [phone] Dylan Phelps MD [address] [place], [place] [phone] documented as of this encounter Visit Diagnoses Not on filedocumented in this encounter Care Teams Principal Engineer Relationship Specialty Start Date End Date Agustin Mix [address] [place] [address] PCP - General Internal Medicine 04/15/17 documented as of this encounter
--- OUTSIDE RECORDS SUMMARY | 2025-01-18 06:59 | XMS_ITS | Encounter Summary ---
Author Organization [facility] Address [address] [place] [address] Care Team Providers Care Medical Stenographer Name Role Phone Agustin Mix Primary Care Provider + Encounter Details Date Type Department Care Team (Late st Contact Info) Description 01/13/2020 Orders Only [facility] 2 Rad Act 1 [address] [place] [address] Pawel Sanchez MD [address] [place] [address] Social History Tobacco Use Types Packs/Day Years [...] 02/06/2025 9:30 AM EDT Follow-Up [facility] Liver Transplant Services [address] [place] [address] Dylan Phelps MD [address] [place] [address] documented as of this encounter Visit Diagnoses Not on filedocumented in this encounter Additional Health Concerns Infection Onset Date Last Indicated Resolved Time COVID-19 - Suspected infection 03/05/2020 03/17/2020 03/17/2020 7:55 PM EST COVID-19 - Confirmed infection 05/01/2020 05/07/2020 06/01/2020 5:06 PM EST COVID-19 - Suspected infection 05/10/2020 05/10/2020 05/24/2020 10:34 PM EST documented as of this encounter Care Teams Medical Stenographer Relationship Specialty Start Date End Date Agustin Mix [address] [place] [phone] PCP - General Internal Medicine 04/15/17 documented as of this encounter
--- OUTSIDE RECORDS SUMMARY | 2025-01-18 06:59 | XMS_ITS | Encounter Summary ---
Author Organization [employer] Address [address] [place] [address] 7 [place] [address] Care Team Providers Care Marketing Effectiveness Manager Name Role Phone Agustin Marrero MD Primary Care Provide r Reason for Visit * Reason Onset Date Comments fyi 12/13/2024 Encounter Details Date Type Department Care Team ([facility] st Contact Info) Description 12/13/2024 Telephone [facility] MEDICINE [address] [place], [place] [phone] Agustin Marrero MD [address] [place], [place] [phone] fyi Social History Tobacco Use Types Packs/Day [...] 102/62 recorded. Call to Jessica DARDEN with [facility] at [phone], reports BP of 164/105 , pt had [...] to Edward Fonseca to triage below at [phone]. Reports took losartan after visiting nurse advised [...] to PCP as FYI and to advise [place] Team Primary care team nurses of plan [...] 8:16 AM EDT Tc from Jessica at [facility] called to inform that pt had a elevated diastolic bp , 164/105. Pt denies any cardiac symptoms. Contact Jessica at [phone] documented in this encounter Plan of Treatment Upcoming Encounters Date Type Department Care Team (Late st Contact Info) Description 02/23/2025 10:00 AM EST Office Visit [facility] MEDICINE [address] [place] [address] Agustin Marrero MD [address] [place] [address] 03/24/2025 9:00 AM EST Clinical Support [facility] MEDICINE [address] [place] [address] Shwetha Collado RN [address] [place] [address] 05/31/2025 8:00 AM EST Office Visit [facility] ADULT DENTAL [address] [place] [address] Catherine Antonio [address] [place] [address] documented as of this encounter Visit Diagnoses Not on filedocumented in this encounter Additional Health Concerns Assessment Noted Time PHQ-9 Depression Total Score: 0 07/15/20 25 9:25 AM EDT documented as of this encounter Care Teams Marketing Effectiveness Manager Relationship Specialty Start Date End Date Agustin Marrero MD [address] [place] [address] PCP - General Internal Medicine 01/25/14 [facility] 06/13/16 documented as of this encounter
--- OUTSIDE RECORDS SUMMARY | 2025-01-18 06:59 | XMS_ITS | Encounter Summary ---
Author Organization [employer] Address [address] [place] [address] 7 [place] [address] Care Team Providers Care Photographic Restorer Name Role Phone Agustin Marrero MD Primary Care Provide r Reason for Visit * Reason Onset Date Comments Med Refill 10/04/2024 Encounter Details Date Type Department Care Team ([facility] st Contact Info) Description 10/04/2024 Telephone [facility] MEDICINE [address] [place], [place] [phone] Agustin Marrero MD [address] [place], [place] [phone] Med Refill Social History Tobacco Use Types [...] 50 MG tablet To be sent to: [facility]/pharmacy #[id number] [place] [address] documented in this encounter Plan of Treatment Upcoming Encounters Date Type Department Care Team (Late st Contact Info) Description 02/23/2025 10:00 AM EST Office Visit [facility] MEDICINE [address] [place] [address] Agustin Marrero MD [address] [place] [address] 03/24/2025 9:00 AM EST Clinical Support [facility] MEDICINE [address] [place] [address] Shwetha Collado RN [address] [place] [address] 05/31/2025 8:00 AM EST Office Visit [facility] ADULT DENTAL [address] [place], [place] [phone] PacoCatherine [address] [place] [address] documented as of this encounter Visit Diagnoses Not on filedocumented in this encounter Additional Health Concerns Assessment Noted Time PHQ-9 Depression Total Score: 0 12/03/19 10:31 AM EDT documented as of this encounter Care Teams Photographic Restorer Relationship Specialty Start Date End Date Agustin Marrero MD [address] [place] [address] PCP - General Internal Medicine 01/25/14 [facility] 06/13/16 documented as of this encounter
--- OUTSIDE RECORDS SUMMARY | 2025-01-18 06:59 | XMS_ITS | Encounter Summary ---
Author Organization [employer] Address [address] [place] [address] 7t [place] [address] Care Team Providers Care Railways Assistant Name Role Phone Agustin Marrero MD Primary Care Provide r Reason for Visit * Reason Comments Med Refill Encounter Details Date Type Department Care Team ([facility] st Contact Info) Description 10/28/2023 Refill [facility] MEDICINE 230 [place], [place] [phone] Lela Wu MD 230 [place], [place] [phone] Primary insomnia Social History Tobacco Use Types [...] Description 02/23/2025 10:00 AM EST Office Visit [facility] MEDICINE [address] [place] [address] Agustin Marrero MD [address] [place] [address] 03/24/2025 9:00 AM EST Clinical Support [facility] MEDICINE [address] [place] [address] Shwetha Collado RN 505 [place] [address] 05/31/2025 8:00 AM EST Office Visit [facility] ADULT DENTAL [address] [place] [address] Catherine Antonio [address] [place] [address] documented as of this encounter Visit Diagnoses Diagnosis Primary insomnia Persistent disorder of initiating or maintaining sleep documented in this encounter Additional Health Concerns Assessment Noted Time PHQ-9 Depression Total Score: 5 06/16/19 24 9:35 AM EST documented as of this encounter Care Teams Railways Assistant Relationship Specialty Start Date End Date Agustin Marrero MD [address] [place] [address] PCP - General Internal Medicine 01/25/14 [facility] 06/13/16 documented as of this encounter
--- OUTSIDE RECORDS SUMMARY | 2025-01-18 06:59 | XMS_ITS | Encounter Summary ---
Author Organization [facility] Address [address] [place] [address] Care Team Providers Care Arc Cutter Plasma Arc Name Role Phone Agustin Mix Primary Care Provider + Encounter Details Date Type Department Care Team (Late st Contact Info) Description 07/23/2023 Orders Only [facility] Interventional Radiology [address] [place] [address] Pawel Sanchez MD 55 [place] [address] Social History Tobacco Use Types Packs/Day Years [...] Info) Description 02/06/2025 9:30 AM EDT Follow-Up [facility] Liver Transplant Services [address] [place] [address] Dylan Phelps MD [address] [place] [address] documented as of this encounter Visit Diagnoses Not on filedocumented in this encounter Care Teams Arc Cutter Plasma Arc Relationship Specialty Start Date End Date Agustin Mix 230 [place] [address] PCP - General Internal Medicine 04/15/17 documented as of this encounter
--- OUTSIDE RECORDS SUMMARY | 2025-01-18 06:59 | XMS_ITS | Encounter Summary ---
Author Organization [employer] Address [address] [place] [address] 7t [place] [address] Care Team Providers Care Regulatory Specialist Name Role Phone Agustin Marrero MD Primary Care Provide r Reason for Visit * Reason Comments Med Refill Encounter Details Date Type Department Care Team ([facility] st Contact Info) Description 12/24/2023 Refill [facility] MEDICINE 230 [place], [place] [phone] Agustin Marrero MD 230 [place], [place] [phone] Chronic midline low back pain without sciatica [...] Visit [facility] MEDICINE [address] [place] [address] Agustin Marrero MD [address] [place] [address] 03/24/2025 9:00 AM EST Clinical Support [facility] MEDICINE [address] [place] [address] Shwetha Collado, RN 505 [place] [address] 05/31/2025 8:00 AM EST Office Visit [facility] ADULT DENTAL 230 [place] [address] Catherine Antonio 230 [place] [address] documented as of this encounter Visit Diagnoses Diagnosis Chronic midline low back pain without sciatica documented in this encounter Additional Health Concerns Assessment Noted Time PHQ-9 Depression Total Score: 0 12/03/19 24 10:31 AM EDT documented as of this encounter Care Teams Regulatory Specialist Relationship Specialty Start Date End Date Agustin Marrero MD [address] [place] [address] PCP - General Internal Medicine 01/25/14 [facility] 06/13/16 documented as of this encounter
--- OUTSIDE RECORDS SUMMARY | 2025-01-18 06:59 | XMS_ITS | Encounter Summary ---
Author Organization [employer] Address [address] [place] [address] 7 [place] [address] Care Team Providers Care Head Bucker Name Role Phone Agustin Marrero MD Primary Care Provide r Reason for Visit * Reason Onset Date Comments Med Refill 09/05/2024 Encounter Details Date Type Department Care Team ([facility] st Contact Info) Description 09/05/2024 Telephone [facility] MEDICINE 230 [place], [place] [phone] Agustin Marrero MD 230 [place], [place] [phone] Med Refill Social History Tobacco Use Types [...] be sent to: [facility]/pharmacy #[id number] [place] [address] documented in this encounter Plan of Treatment Upcoming Encounters Date Type Department Care Team (Late st Contact Info) Description 02/23/2025 10:00 AM EST Office Visit [facility] MEDICINE [address] [place] [address] Agustin Marrero MD 230 [place] [address] 03/24/2025 9:00 AM EST Clinical Support [facility] MEDICINE [address] [place] [address] Shwetha Collado RN 505 [place] [address] 05/31/2025 8:00 AM EST Office Visit [facility] ADULT DENTAL [address] [place] [address] Catherine Antonio 230 [place] [address] documented as of this encounter Visit Diagnoses Not on filedocumented in this encounter Additional Health Concerns Assessment Noted Time PHQ-9 Depression Total Score: 0 12/03/19 24 10:31 AM EDT documented as of this encounter Care Teams Head Bucker Relationship Specialty Start Date End Date Agustin Marrero MD 230 [place] [address] PCP - General Internal Medicine 01/25/14 [facility] 06/13/16 documented as of this encounter
--- OUTSIDE RECORDS SUMMARY | 2025-01-18 06:59 | XMS_ITS | Encounter Summary ---
Author Organization [employer] Address [address] [place] [address] 7t [place] [address] Care Team Providers Care Automotive Manufacturer Name Role Phone Agustin Marrero MD Primary Care Provide r Reason for Visit * Reason Comments Med Refill Encounter Details Date Type Department Care Team ([facility] st Contact Info) Description 2024 Refill [facility] MEDICINE [address] [place], [place] [phone] Agustin Marrero MD 230 [place] [address] Social History Tobacco Use Types Packs/Day Years [...] Description 02/23/2025 10:00 AM EST Office Visit [facility] MEDICINE [address] [place] [address] Agustin Marrero MD 230 [place] [address] 03/24/2025 9:00 AM EST Clinical Support [facility] MEDICINE [address] [place] [address] Shwetha Collado, RN 505 [place] [address] 05/31/2025 8:00 AM EST Office Visit [facility] ADULT DENTAL [address] [place] [address] Catherine Antonio 230 [place] [address] documented as of this encounter Visit Diagnoses Not on filedocumented in this encounter Additional Health Concerns Assessment Noted Time PHQ-9 Depression Total Score: 0 12/03/19 24 10:31 AM EDT documented as of this encounter Care Teams Automotive Manufacturer Relationship Specialty Start Date End Date Agustin Marrero MD [address] [place] [address] PCP - General Internal Medicine 01/25/14 [facility] 06/13/16 documented as of this encounter
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
--- OUTSIDE RECORDS SUMMARY | 2025-01-18 07:00 | XMS_ITS | Encounter Summary ---
Author Organization [facility] Address [address] [place] [address] Care Team Providers Care Program Clinician Name Role Phone Agustin Mix Primary Care Provider + Encounter Details Date Type Department Care Team (Late st Contact Info) Description 02/29/2020 Orders Only [facility] Ultrasound [address] [place] [address] Sreedhar Sotelo MD 55 [place], [place] [phone] Social History Tobacco Use Types Packs/Day Years [...] Info) Description 02/06/2025 9:30 AM EDT Follow-Up [facility] Liver Transplant Services [address] [place] [address] Dylan Phelps MD [address] [place] [address] documented as of this encounter Visit Diagnoses Not on filedocumented in this encounter Additional Health Concerns Infection Onset Date Last Indicated Resolved Time COVID-19 - Suspected infection 03/05/2020 03/17/2020 03/17/2020 7:55 PM EST COVID-19 - Confirmed infection 05/01/2020 05/07/2020 06/01/2020 5:06 PM EST COVID-19 - Suspected infection 05/10/2020 05/10/2020 05/24/2020 10:34 PM EST documented as of this encounter Care Teams Program Clinician Relationship Specialty Start Date End Date Agustin Mix [address] [place] [address] PCP - General Internal Medicine 04/15/17 documented as of this encounter
--- OUTSIDE RECORDS SUMMARY | 2025-01-18 07:00 | XMS_ITS | Encounter Summary ---
Author Organization [employer] Address [address] [place] [address] [address] Care Team Providers Care Slot Ambassador Name Role Phone Agustin Marrero MD Primary Care Provide r Reason for Visit * Reason Onset Date Comments Med Refill 12/15/2022 Encounter Details Date Type Department Care Team ([facility] st Contact Info) Description 12/15/2022 Telephone [facility] MEDICINE 230 [place], [place] [phone] Agustin Marrero MD 230 [place] [address] Med Refill Social History Tobacco Use Types [...] Description 02/23/2025 10:00 AM EST Office Visit [facility] MEDICINE 230 [place] [address] Agustin Marrero MD 230 [place] [address] 03/24/2025 9:00 AM EST Clinical Support [facility] MEDICINE 230 [place] [address] Shwetha Collado, RN 505 [place] [address] 05/31/2025 8:00 AM EST Office Visit [facility] ADULT DENTAL 230 [place] [address] Paco, Catherine [address] [place] [address] documented as of this encounter Visit Diagnoses Not on filedocumented in this encounter Care Teams Slot Ambassador Relationship Specialty Start Date End Date Agustin Marrero MD 230 [place] [address] PCP - General Internal Medicine 01/25/14 [facility] 06/13/16 documented as of this encounter
--- OUTSIDE RECORDS SUMMARY | 2025-01-18 07:00 | XMS_ITS | Encounter Summary ---
Author Organization [employer] Address [address] [place] [address] 7 [place] [address] Care Team Providers Care Gravel Hauler Name Role Phone Agustin Marrero MD Primary Care Provide r Reason for Visit * Reason Comments Med Refill Encounter Details Date Type Department Care Team (Late Contact Info) Description 09/04/2022 Refill [facility] MEDICINE 230 [place] [address] Agustin Marrero MD 230 [place] [address] Social History Tobacco Use Types Packs/Day Years [...] Upcoming Encounters Date Type Department Care Team ([facility] Contact Info) Description 02/23/2025 10:00 AM EST Office Visit [facility] MEDICINE 230 [place] [address] Agustin Marrero MD 230 [facility] [place] [address] 03/24/2025 9:00 AM EST Clinical Support [facility] MEDICINE 230 [place] [address] Shwetha Collado, KATALINA 505 [place] [address] 05/31/2025 8:00 AM EST Office Visit [facility] ADULT DENTAL 230 [place], [place] [phone] Catherine Antonio 230 [place] [address] documented as of this encounter Visit Diagnoses Not on filedocumented in this encounter Care Teams Gravel Hauler Relationship Specialty Start Date End Date Agustin Marrero MD 230 [place] [address] PCP - General Internal Medicine 01/25/14 [facility] 06/13/16 documented as of this encounter
--- OUTSIDE RECORDS SUMMARY | 2025-01-18 07:00 | XMS_ITS | Encounter Summary ---
Author Organization [employer] Address [address] [place] [address] 7t [place] [address] Care Team Providers Care Materials Intern Name Role Phone Agustin Marrero MD Primary Care Provide r Reason for Visit * Reason Comments Med Refill Encounter Details Date Type Department Care Team ([facility] st Contact Info) Description 05/13/2024 Refill [facility] MEDICINE 230 [place], [place] [phone] Agustin Marrero MD 230 [place] [address] Social History Tobacco Use Types Packs/Day Years [...] Description 02/23/2025 10:00 AM EST Office Visit [facility] MEDICINE [address] [place] [address] Agustin Marrero MD 230 [place] [address] 03/24/2025 9:00 AM EST Clinical Support [facility] MEDICINE [address] [place] [address] Shwetha Collado, RN 505 [place] [address] 05/31/2025 8:00 AM EST Office Visit [facility] ADULT DENTAL [address] [place] [address] Catherine Anotnio 230 [place] [address] documented as of this encounter Visit Diagnoses Not on filedocumented in this encounter Additional Health Concerns Assessment Noted Time PHQ-9 Depression Total Score: 0 12/03/19 24 10:31 AM EDT documented as of this encounter Care Teams Materials Intern Relationship Specialty Start Date End Date Agustin Marrero MD [address] [place] [address] PCP - General Internal Medicine 01/25/14 [facility] 06/13/16 documented as of this encounter
--- OUTSIDE RECORDS SUMMARY | 2025-01-18 07:00 | XMS_ITS | Encounter Summary ---
Author Organization [facility] Address [address] [place] [address] Care Team Providers Care Ophthalmic Surgical Assistant Name Role Phone Agustin Mix Primary Care Provider + Encounter Details Date Type Department Care Team (Late st Contact Info) Description 11/24/2024 Results Follow-Up [facility] Transplant Department 55 [place] [address] Erika Bonds RN Social History Tobacco Use [...] Description 02/06/2025 9:30 AM EDT Follow-Up [facility] Liver Transplant Services 55 [place], [place] [phone] Dylan Phelps MD 55 [place] [address] documented as of this encounter Visit Diagnoses Not on filedocumented in this encounter Care Teams Ophthalmic Surgical Assistant Relationship Specialty Start Date End Date Agustin Mix [address] [place] [address] PCP - General Internal Medicine 04/15/17 documented as of this encounter
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
--- OUTSIDE RECORDS SUMMARY | 2025-01-18 07:00 | XMS_ITS | Encounter Summary ---
Author Organization [employer] Address [address] [place] [address] [place] [address] Care Team Providers Care Glove Turner Name Role Phone Agustin Marrero MD Primary Care Provide r Encounter Details Date Type Department Care Team (Latest Contact Info) Description 07/16/2020 Abstract [facility] CONVERSIONS Dental, Provider, DDS Social History [...] Care Team ( st Contact Info) Description 02/23/2025 10:00 AM EST Office Visit [facility] MEDICINE [address] [place] [address] Agustin Marrero MD 230 [place] [address] 03/24/2025 9:00 AM EST Clinical Support [facility] MEDICINE [address] [place] [address] Shwetha Collado RN 505 [place] [address] 05/31/2025 8:00 AM EST Office Visit [facility] ADULT DENTAL 230 [place] [address] Catherine Antonio [address] [place] [address] documented as of this encounter Visit Diagnoses Not on filedocumented in this encounter Care Teams Glove Turner Relationship Specialty Start Date End Date Agustin Marrero MD 230 [place] [address] PCP - General Internal Medicine 01/25/14 [facility] 06/13/16 documented as of this encounter
--- OUTSIDE RECORDS SUMMARY | 2025-01-18 07:00 | XMS_ITS | Encounter Summary ---
Author Organization [employer] Address [address] [place] [address] [address] Care Team Providers Care Chiseler Head Name Role Phone Agustin Marrero MD Primary Care Provide r Encounter Details Date Type Department Care Team (Latest Contact Info) Description 06/18/2021 Abstract [facility] CONVERSIONS Dental, Provider, DDS Social History Tobacco [...] 10:00 AM EST Office Visit [facility] MEDICINE [address] [place] [address] Agustin Marrero MD 230 [place] [address] 03/24/2025 9:00 AM EST Clinical Support [facility] MEDICINE [address] [place] [address] Shwetha Collado RN 505 [place] [address] 05/31/2025 8:00 AM EST Office Visit [facility] ADULT DENTAL 230 [place] [address] Catherine Antonio 230 [place] [address] documented as of this encounter Visit Diagnoses Not on filedocumented in this encounter Care Teams Chiseler Head Relationship Specialty Start Date End Date Agustin Marrero MD 230 [place] [address] PCP - General Internal Medicine 01/25/14 [facility] 06/13/16 documented as of this encounter
--- OUTSIDE RECORDS SUMMARY | 2025-01-18 07:00 | XMS_ITS | Encounter Summary ---
Author Organization [employer] Address [address] [place] [address] 7t [place] [address] Care Team Providers Care Charge Master Analyst Name Role Phone Agustin Marrero MD Primary Care Provide r Reason for Visit * Reason Comments Med Refill Encounter Details Date Type Department Care Team (Late st Contact Info) Description 05/14/2022 Refill [facility] MEDICINE 230 [place], [place] [phone] Agustin Marrero MD 230 [place] [address] Chronic midline low back pain without sciatica [...] Department Care Team (Late Contact Info) Description 02/23/2025 10:00 AM EST Office Visit [facility] MEDICINE 230 [place] [address] Agustin Marrero MD 230 [place] [address] 03/24/2025 9:00 AM EST Clinical Support [facility] MEDICINE [address] [place] [address] Shwetha Collado, KATALINA 505 [place] [address] 05/31/2025 8:00 AM EST Office Visit [facility] ADULT DENTAL 230 [place] [address] Catherine Antonio 230 [place] [address] documented as of this encounter Visit Diagnoses Diagnosis Chronic midline low back pain without sciatica documented in this encounter Care Teams Charge Master Analyst Relationship Specialty Start Date End Date Agustin Marrero MD 230 [place] [address] PCP - General Internal Medicine 01/25/14 [facility] 06/13/16 documented as of this encounter
--- OUTSIDE RECORDS SUMMARY | 2025-01-18 07:00 | XMS_ITS ---
Author Organization [facility] Address [address] [place] [address] Care Team Providers Care Medical Sociologist Name Role Phone Agustin Mix Primary Care Provider + Transplant Episode Liver Recipient [facility] ([place], [place]) - [facility] Organ Received: Liver Transplanted on 08/09/2019 Marked as Active Follow-up on 08/09/2019 Liver CoordinatorErika Bonds RN Phone: N/A Fax: N/A Email: N/A [place] Organ Diagnosis Organ Primary Contributory Liver Alcoholic Cirrhosis Infection History Noted Survival Infection Treatment Organism Resolved 06/12/2020 308 days 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
--- OUTSIDE RECORDS SUMMARY | 2025-01-18 07:00 | XMS_ITS | Encounter Summary ---
Author Organization [employer] Address [address] [place] [address] 7 [place] [address] Care Team Providers Care Order Picker/Assembler Name Role Phone Agustin Marrero MD Primary Care Provide r Encounter Details Date Type Department Care Team (Late st Contact Info) Description 08/28/[address] [address] Agustin Marrero MD [address] [place] [address] Social History Tobacco Use Types Packs/Day Years [...] Description 02/23/2025 10:00 AM EST Office Visit [address] [phone] Agustin Marrero MD [address] [place] [address] 03/24/2025 9:00 AM EST Clinical Support [address] [place] [address] Shwetha Collado, KATALINA [address] [place] [address] 05/31/2025 8:00 AM EST Office Visit [facility] [address] [place] [address] Catherine Antonio [address] [place] [address] documented as of this encounter Procedures Procedure Name Priority Date/Time Associated Diagnosis Comments COLONOSCOPY Routine 06/28/2021 documented in this encounter Results * Colonoscopy (06/28/2021) Colonoscopy Normal Normal 06/28/2021 Narrative Shanel Bo - 06/28/2021 9:58 AM EST Recommended 3 year follow up per GI notes ( [facility] [place] ) Historical Provider HEALTH MAINTENANCE Edited Result - Final documented in this encounter Visit Diagnoses Not on filedocumented in this encounter Care Teams Order Picker/Assembler Relationship Specialty Start Date End Date Agustin Marrero MD [address] [place] [address] PCP - General Internal Medicine 01/25/14 [facility] 06/13/16 documented as of this encounter
--- OUTSIDE RECORDS SUMMARY | 2025-01-18 07:00 | XMS_ITS | Clinical Summary ---
Author Organization [facility] Address [address] [place] [address] Care Team Providers Care Retail Wireless Associate Name Role Phone Agustin Mix Primary Care Provider + Allergies No known active allergies Medications blood glucose diagnostic meterIndication s:Type 2 diabetes mellitus with hyperglycemia, with long-term current use of insulin Use to test 3 times daily. 1 each 08/25/2019 10:32 AM EDT 0 Active VIAGRA 100 mg tablet TAKE 1 TABLET 1 HOUR BEFORE SEXUAL RELATIONS ONCE DAILY NEEDED. 0 Active Freestyle Lite test stripsIndicatio ns:Type 2 diabetes mellitus with hyperglycemia, with long-term current use of insulin Test 3 times a day. 100 strip 1 12/13/2019 9:38 PM EDT 0 Active blood glucose diagnostic lancet 28 gaugeIndication s:Type 2 diabetes mellitus with hyperglycemia, with long-term current use of insulin Use to test 3 times daily. 100 [...] needed daily 2 Active FreeStyle Arvin 2 [place] misc 2 Active BD Insulin Syringe Ultra-Fine [...] 1 mg capsuleIndicati ons:History of liver transplant TOME 1 CAPSULA POR VIA ORAL CADA DEANDRE FRANCIS 270 capsule 3 5 Active Active Problems [...] in March 2020. He was seen by supervisor painting department at [facility] who discussed that he [...] taking prednisone [address] Phepls's note, the patient should not be on [...] for liver biopsy, since LFT pattern not public utilities sales representative of rejection. Additionally, Liver ultrasound [...] of recurrent ESBL bacteremia. Initially presented to [facility] for fever, LE swelling and pain. Unclear source. BCX grew esbl E.Coli 1 out of 2 sets from [facility], susceptible to Ertapenem. Initially he was [...] of recurrent ESBL bacteremia. Initially presented to [facility] for fever, LE swelling and pain. Unclear source. BCX grew esbl E.Coli 1 out of 2 sets from [facility], susceptible to Ertapenem. Initially he was [...] CBC and CMP - f/u plan from [place] for length of treatment Assessment & Plan (02/05/2019 6:23 AM EDT): Patient has a recurrent history of recurrent ESBL bacteremia. Patient initially presented to [facility] for fever and LE swelling and pain. Unclear source. BCX grew esbl E.Coli 1 out of 2 sets from [facility], susceptible to Ertapenem. Initially he was on zosyn, and was switched to ertapenem. On previous admission, MRCP on 12/20 or Abdominal US on 01/16 showed no biliary dilatation. - continue ertapenem (10 day course to be completed on 02/09 per [facility] note) - repeat BCX - CT AP w/ contrast - consult transplant ID in the AM - f/u CBC and CMP Assessment & Plan (02/05/2019 5:40 AM EDT): Patient has a recurrent history of recurrent ESBL bacteremia. Patient initially presented to [facility] for fever and LE swelling and pain. Unclear source. BCX grew esbl E.Coli 1 out of 2 sets from [facility], susceptible to Ertapenem. Initially he was on zosyn, and was switched to ertapenem. On previous admission, MRCP on 12/20 or Abdominal US on 01/16 showed no biliary dilatation. - continue ertapenem (10 day course to be completed on 02/09 per [facility] note) - repeat BCX - CT [...] found. OSH GI recommended transfer to [facility] as there was a suspicion for [...] pathology. -BCx grew GNR -transplant ID consulted -[facility] was called for speciation, it will be [...] concerning for pathology. -Transplant ID is following -[facility] will fax culture data, commented that [...] 8:59 AM EST): Hyponatremic to 132 at [facility]. Na 128, constant through hospitalization. - daily BMP Assessment & Plan (02/09/2019 11:02 AM EDT): Hyponatremic to 132 at [facility]. Na 128, constant through hospitalization. - daily BMP Assessment & Plan (02/05/2019 5:51 AM EDT): Hyponatremic to 132 at [facility]. - repeat BMP in am and redose diuretics Assessment & Plan (02/05/2019 5:47 AM EDT): Hyponatremic to 132 at [facility]. - repeat BMP in am and [...] Presented again on day of admission to [facility] with worsening shortness of breath where a CT chest PE protocol was performed which showed no evidence of intraluminal filling defect though did make note of large left- sided pleural effusion with associated complete left lower lobe collapse as well as partial left upper lobe collapse. Due to recurrent pleural effusion and likely need for repeat thoracentesis patient was transferred [facility]. On arrival patient without any increased work of breathing and saturating well on room air. Exam reveals absent breath sounds in the left middle and lower lung perez with increased dullness to percussion. 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 -We will have CT scan from [facility] uploaded into our system for review -CXR on 07/11 showed large left pleural effusion -IP consulted for thoracentesis. Will send fluid studies. -Requested [facility] records of pleural fluid studies from 07/06 -Supplemental oxygen as needed to maintain sats greater than 92% Assessment & Plan (01/19/2019 10:11 AM EDT): Patient is s/p thoracentesis after large left lung effusion unchanged from previous admission seen on imaging. Site of thoracentesis covered with bandage that is dry and intact. Chart review of his prior hospitalization at [facility] revealed that he had thoracentesis on January 11, 2019, during which 1.6 L was taken out, and fluid study revealed white blood cell count of 2650 and segs of 35%, suggesting exudative fluid, although it seems that no paracentesis was done at [facility]. - decreased breath sounds in middle and [...] transudative fluid, rapidly reaccumulating, transferred to [facility] for TIPS intervention. Resumed diuretics today [...] procedure in 2017. Most recent hospitalization at [facility] was in January 2019 when he [...] to hyperkalemia. Of note, reached out to [facility] to double check if paracentesis was done, and whether there is a fluid study of the sample, however it appears that no paracentesis was done at [facility]. - Start Lactulose increased to 20 g [...] TIPS procedure and was sent to [facility] for further evaluation. Plan -Continue with [...] Type Department Care Team Description 12/23/2024 Abstract [facility] Transplant Department [address] [place] [address] Dylan Phelps MD 12/22/2024 Results Follow-Up [facility] Transplant Department [address] [place] [address] Erika Bonds RN 12/22/2024 Abstract [facility] Transplant Department [address] [place] [address] Dylan Phelps MD 12/12/2024 Orders Only [facility] Transplant Department [address] [place] [address] Erika Bonds RN Encounter for immunosuppression management after liver transplant (HCC) (Primary Dx); History of hepatocellular carcinoma 11/25/2024 Abstract [facility] Transplant Department [address] [place] [address] Dylan Phelps MD 11/24/2024 Results Follow-Up [facility] Transplant Department [address] [place] [address] Erika Bonds RN 11/24/2024 Abstract [facility] Transplant Department [address] [place] [address] Dylan Phelps MD 10/21/2024 Refill [facility] Liver Transplant Services [address] [place] [address] Dylan Phelps MD History of liver transplant (HCC) 10/20/2024 Abstract [facility] Transplant Department [address] [place] [address] Dylan Phelps MD from Last 3 Months [...] Upcoming Encounters Date Type Department Care Team (Sony st Contact Info) Description 02/06/2025 9:30 AM EDT Follow-Up [facility] Liver Transplant Services [address] [place], [place] [phone] Dylan Phelps MD [address] [place] [address] Health Maintenance Due Date Last Done Comments [...] 11/05/2023, 05/06/2022, Additional history exists COVID-19 Vaccine ( - 2024-2 6 season) 2024 05/06/2022, 11/25/2021, [...] history exists Medical Devices Implanted Type Area Environmental Sampler Device Identifier Shelf Expiration Date Model / Serial / Lot Shunt Transjugular Intrahepatic Portosystemic Tips Endoprosthesis [id number] Viatorr - [id number] Implanted:Qty: 1 on 07/28/2017 at [facility] Implant W L GORE 12/26/2019 [id number] / / Mesh Hernia With Strap Large Ventralex - [id number] Implanted:Qty: 1 on 03/20/2020 by Fernando Fine MD PhD at [facility] Mesh Right: Abdomen [employer] 01/15/2021 [id number] / / [id number] Stent Biliary Rx Fully Covered Self Expanding Metallic Rmv With Permalume Covering 8.5fr [id number] Wallflex - [id number] - [id number] Implanted:Qty: 1 on 11/21/2022 by Dunia Osorio MD at [facility] Stent N/A: Bile Duct [employer] 08/21/2024 [id number] / [id number] / Explanted Type Area Environmental Sampler Device Identifier Shelf Expiration Date Model / Serial / Lot Ercp Stent-11/21/2022 Implanted:07/2022 (Quantity not on file) Explanted:06/2022 (Quantity not on file) ERCP Stent Bile Duct 1 / / Txp Internal Biliary Stent- 0 Implanted:07/20 (Quantity not on file) Explanted:07/2020 (Quantity not on file) TXP Internal Biliary Stent Bile Duct Procedures * Due to [place] state law, [...] to Health Maintenance Results * Due to [place] state law, this organization might not be sharing negative HIV tests. * LIVER POST EXTERNAL PANEL (12/21/2024 6:38 AM EDT) Only the most recent of3 resultswithin the time period is included. Tacrolimus, Highly Sensitive 4.7 [facility] Sodium 137 mmol/L [facility] Potassium 4.7 [facility] Chloride 105 [facility] Carbon Dioxide 26 [facility] Glucose 224 [facility] BUN 21 mg/dL [facility] Creatinine 1.13 mg/dL [facility] Calcium 9.3 mg/dL [facility] Total Protein 6.9 g/dL [facility] Albumin 4.5 g/dL [facility] Bilirubin, Total 0.7 mg/dL [facility] Alkaline Phosphatase 135 U/L [facility] AST 30 U/L [facility] ALT 36 U/L [facility] Magnesium 1.70 mg/dL [facility] WBC 5.8 10*3/uL [facility] Hgb 14.0 [facility] Hematocrit 39.4 % [facility] Platelets 151 10*3/uL [facility] 12/21/2024 6:38 AM EDT us Dylan Phelps MD LAB BLOOD ORDERABLES Final Re sult Performing Organization Address City/[facility]/ZIP Co de Phone Number [facility] [address] [place] [address] * AFP Tumor Marker, Outside Lab (12/21/2024 6:38 AM EDT) Only the most recent of2 resultswithin the time period is included. Alpha Fetoprotein, Tumor Marker 1.3 [facility] Blood Structure of peripheral vein / Unknown 12/21/2024 6:38 AM EDT us Dylan Phelps MD LAB BLOOD ORDERABLES Final Re sult Performing Organization Address City/[facility]/ZIP Co de Phone Number [facility] [address] [place] [address] * CT Chest W Contrast (11/05/2023 4:35 [...] to obtain the completed interpretation. Workstation ID: [id number] Up-to-date CT equipment and radiation dose reduction techniques were employed. CTDIvol: 3.1 - 23.9 mGy. DLP: 2643 mGy-cm. The following accession numbers are related to this dose report [id number]: [id number] Narrative 11/19/2023 3:36 PM EDT Indication: 58 [...] the spine. Bilateral gynecomastia. Resulting Agency Comment [id number] Procedure Note Natasha Michaud MD - 11/19/2023 [...] possible to obtain thecompleted interpretation. Workstation ID: [id number] Up-to-date CT equipment and radiation dose reduction techniques wereemployed. CTDIvol: 3.1 - 23.9 mGy. DLP: 2643 mGy-cm. The followingaccession numbers are related to this dose report [id number]: [id number] Dylan Phelps MD [facility] CT PROCEDURES Final Resul t * (ABNORMAL) Basic Metabolic Panel (11/15/2022 3:07 AM EDT) NA 135 135 - 145 mmol/L 11/15/2022 4:09 AM EDT [facility] K 4.6 3.5 - 5.3 mmol/L 11/15/2022 4:09 AM EDT [facility] Cl 103 97 - 110 mmol/L 11/15/2022 4:09 AM EDT [facility] CO2 24 24 - 32 mmol/L 11/15/2022 4:09 AM EDT [facility] BUN 27(H) 7 - 23 mg/dL 11/15/2022 4:09 AM EDT [facility] Creatinine 1.05 0.60 - 1.30 mg/dL 11/15/2022 4:09 AM EDT [facility] Glucose 268(H) 70 - 99 mg/dL 11/15/2022 4:09 AM EDT [facility] Calcium 8.8 8.7 - 10.7 mg/dL 11/15/2022 4:09 AM EDT [facility] Anion Gap 8 5 - 15 11/15/2022 4:09 AM EDT [facility] eGFR 82 >=60 mL/min/1. 73m2 11/15/2022 4:09 AM EDT [facility] Comment:The estimated glomer ular [...] ORDERABLES Final Re sult Performing Organization Address City/[facility]/ZIP Co de Phone Number [facility] [address] [place] [address], * Microalbumin, Random Urine with Creatinine (05/17/2021 11:35 AM EST) Microalbumin, Urine 1.1 mg/dL 05/17/2021 12:34 PM EST [facility] Creatinine, Urine 97 22 - 328 mg/dL 05/17/2021 12:34 PM EST [facility] Microalb/Creat Ratio, Random Urine 11.3 <30.0 mcg/mgCr 05/17/2021 12:34 PM EST [facility] Comment: Microalbumin Reference Range: Normal <30 mcg/mg Creatinine Microalbuminuria 30-300 mcg/mg Creatinine Clinical Albuminuria >300 mcg/mg Creatinine Reference: ADA Guideline. Diabetes Care. 2004;27 (suppl 1) Urine Voided urine specimen / Unknown Non-Blood Collection / Unknown 05/17/2021 11:35 AM EST 05/17/2021 12:01 PM EST us Angelita Villa MD LAB URINE ORDERABLES Final Resul t Performing Organization Address City/[facility]/ZIP Co de Phone Number [facility] [address] [place] [address], * (ABNORMAL) Hemoglobin A1c (05/17/2021 11:31 AM EST) Hemoglobin A1C 7.7(H) <5.7 % of total Hgb 05/18/2021 2:37 AM EST [employer] Comment: For someone without known diabetes, a [...] (MG/DL) 174 mg/dL 05/18/2021 2:37 AM EST [employer] eAG (MMOL/L) 9.7 mmol/L 05/18/2021 2:37 AM EST [employer] Blood Structure of peripheral vein / Unknown Venipuncture / Unknown 05/17/2021 11:31 AM EST 05/17/2021 11:40 AM EST Narrative [facility] - 05/18/2021 2:37 AM EST [facility] Received Date: us Angelita Villa MD LAB BLOOD ORDERABLES Final Resul t [facility] [address] [facility] [address], [place] [address], [employer] [facility] [address] [facility] [address], [place] [address], * CT Abdomen Pelvis with Contrast (05/05/2020 5:27 PM EST) Anatomical Region Laterality Modality Body Computed Tomogra phy 05/06/2020 8:40 AM EST Impressions 05/06/2020 8:50 AM EST Small fluid pocket between the incision and transverse colon which may represent developing adhesions. Recommend correlation for any signs of infection in the incision on exam. Otherwise, no CT findings that might explain patient's fever. [id number] Narrative 05/06/2020 8:50 AM EST EXAMINATION: CT [...] no CT findings that mightexplain patient's fever. [id number] Reyes Voss MD IMG CT PROCEDURES Final Result * Hepatitis C RNA, Quantitative, PCR (09/09/2019 11:52 AM EDT) Hcv RNA, Quantitative Real Time PCR <15 NOT DETECTED NOT DETECTED IU/mL 09/14/2019 5:38 PM EDT [employer] [facility] Hepatitis C Quantitative PCR Log IU/mL <1.18 NOT DETECTED NOT DETECTED Log IU/mL 09/14/2019 5:38 PM EDT [employer] [facility] Comment: This test was performed using Real-Time Polymerase Chain Reaction. Reportable Range: 15 IU/mL to 100,000,000 IU/mL (1.18 Log IU/mL to 8.00 Log IU/mL). The analytical performance characteristics of this assay have been determined by [employer]. The modifications have not been cleared or approved by the FDA. This assay has been validated pursuant to the CLIA regulations and is used for clinical purposes. For more information on this test, go to: http://education.[employer]/faq/GKY00o5 (This link is being provided for informational/ educational purposes only.) Blood Structure of peripheral vein / Unknown Venipuncture / Unknown 09/09/2019 11:52 AM EDT 09/09/2019 12:07 PM EDT Narrative [facility] - 09/14/2019 5:38 PM EDT [facility] Received Date:[id number] Cyndi Pereira MD LAB BLOOD ORDERAB LES Final Result [facility] [address] [facility] [address], [place] [address], [place] [phone] [employer] [facility] [address] [facility] [address], [place] [address], [place] [phone] from Last 3 Months or Most Recently Relevant to Health Maintenance Insurance [address] [place] [address] [facility] [address] [place] [address] [facility] [address] [facility] [place] [address] [facility] Advance Directives Documents on File Type Date Recorded Patient Meeting Manager Expl anation Health Care Proxy 02/05/2019 [...] Rivera Hebert Health Care Agent Care Teams Retail Wireless Associate Relationship Specialty Start Date End Date gAustin Mix [address] [place] [address] PCP - General Internal Medicine 04/15/17
--- OUTSIDE RECORDS SUMMARY | 2025-01-18 07:00 | XMS_ITS | Encounter Summary ---
Author Organization [facility] Address [address] [place] [address] Care Team Providers Care Advertising Columnist Name Role Phone Agustin Mix Primary Care Provider + Encounter Details Date Type Department Care Team (Late st Contact Info) Description 12/22/2024 Results Follow-Up [facility] Transplant Department [address] [place] [address] Erika Bonds RN Social History Tobacco Use [...] Info) Description 02/06/2025 9:30 AM EDT Follow-Up [facility] Liver Transplant Services [address] [place] [address] Dylan Phelps MD [address] [place] [address] documented as of this encounter Visit Diagnoses Not on filedocumented in this encounter Care Teams Advertising Columnist Relationship Specialty Start Date End Date Agustin Mix [address] [place] [address] PCP - General Internal Medicine 04/15/17 documented as of this encounter
--- OUTSIDE RECORDS SUMMARY | 2025-01-18 07:00 | XMS_ITS | Encounter Summary ---
Author Organization [employer] Address [address] [place] [address] 7 [place] [address] Care Team Providers Care Basketball Referee Name Role Phone Agustin Marrero MD Primary Care Provide r Reason for Visit * Reason Onset Date Comments Medication Question 05/11/2024 Encounter Details Date Type Department Care Team ([facility] st Contact Info) Description 05/11/2024 Telephone [facility] MEDIC[facility] [address] [place], [place] [phone] Agustin Marrero MD [address] [place], [place] [phone] Medication Question Social History Tobacco Use Types [...] Dr Richardson's office on 05/11/2024. Note in [facility] EHR: Received call from [place] nurse questioning if he still needs to be on Kayexelate 2x weekly. She states he has been out ofit for probably 1 month as he was under the impression the order was discontinued. Labs on 04/25 showK level within normal limits. Instructed her to have him repeat labs in early May to continue to monitor. Called [facility] pharmacy, spoke with Faiza who stated that pt last picked up Kayexalate on 08/13/2023, Rx was written by Dr Lenin Richardson for 30g 1x weekly as directed. Called [facility] Dr Richardson's office to confirm. [...] Richardson's office and received same messageas above. Shellfish Shucker advised Jessica to contact Dr Richardson with any questions regarding this med given that they prescribe it. Jessica stated she will be following up with their office in May once the pt gets their labs drawn. Advised her to call [facility] if any other questions or concerns [...] leaving original prescriber contact information. Dr. Richardson [facility]. . If any questions for Jessica you can contact pt at [phone]. documented in this encounter Plan of Treatment Upcoming Encounters Date Type Department Care Team (Late st Contact Info) Description 02/23/2025 10:00 AM EST Office Visit [facility] [address] [place] [phone] Agustin Marrero MD [address] [place] [address] 03/24/2025 9:00 AM EST Clinical Support [facility] [address] [place] [address] Shwetha Collado RN [address] [place] [address] 05/31/2025 8:00 AM EST Office Visit [facility] ADULT DENTAL [address] [place] [address] Catherine Antonio [address] [place] [address] documented as of this encounter Visit Diagnoses Not on filedocumented in this encounter Additional Health Concerns Assessment Noted Time PHQ-9 Depression Total Score: 0 08/15/20 24 10:31 AM EDT documented as of this encounter Care Teams Basketball Referee Relationship Specialty Start Date End Date Agustin Marrero MD [address] [place] [address] PCP - General Internal Medicine 01/25/14 [facility] 06/13/16 documented as of this encounter
--- OUTSIDE RECORDS SUMMARY | 2025-01-18 07:00 | XMS_ITS | Data Portability ---
Author Organization [place] [employer] [facility], Main Office Address [address] [facility], [address] [place] [address] Care Team Providers Care Electrical Controls Designer Name Role Phone MARICRUZ SARGENT - 2ND FLOOR OTHER Assessment Encounter Date Assessment Date Assessment LastModified by Organization Details LastModified Time 02/25/2019 02/25/2019 02/24/19 WBC 3.7, Hgb 7.5, Hct 22.4, Plt 59, Na 134, K 4.5, BUN 10, Professor Of Communication Arts 0.54, calc 7.8, tot prot 5.1, AST 69, ALT 33, A1c 4.2 02/23/19 WBC 3.4, Hgb 7.5, Hct 22.4, Plt 59, Na 128, K 4.3, BUN 11, Professor Of Communication Arts 0.56, silvia 7.6, tot prot 4.8, tot bili 4.1, AST 65, ALT 25 in hospital [facility] Not available 02/25/2019 10:15:55 Plan [...] Gastroesop hageal reflux disease without esophagiti s 860407267 Active 2018 FIDEL MAURO [address] [facility], [address], [place], [address], [facility] [employer] 9 08:26:33 Cirrhosis of liver 77866357 Active 2018 on transplant list FIDEL MAURO [address] [facility], [address], [place], [address], [employer] 9 08:36:16 Diabetes mellitus 70233039 Active 2018 CACHORRO FIDEL CARLSON [address] [facility], [address], [place], [address], [employer] 9 08:28:07 Hyponatrem ia 83533056 Active 2018 CACHORROFIDEL LEON [address] [facility], [address], [place], [address], [employer] 9 08:28:22 Bacteremia 8188443 Active 2018 FIDEL MAURO [address] [facility], [address], [place], [address], [employer] 9 08:29:07 Bacterial peritoniti s 823704220 Active 2018 FIDEL MAURO [address] [facility], [facility] [address], [place], [address], [employer] 9 09:07:42 Edema of lower extremity 305626088 Active 2018 FIDEL MAURO [address] [facility], [address], [place], [address], [employer] 9 09:15:49 Abscess of lower leg 327188088 Active 2018 Brittaney Mcelroy MD [address] [place] [address], [place] [address], [place], [address], [employer] 9 07:15:49 Anemia 449551972 Active 2018 Brittaney Mcelroy MD [address] [place] [address], [facility] [address], [place], [address], [employer] 9 07:16:47 Problem Notes None recorded. Medical Equipment None Reported. Allergies No known drug allergies Medications Not known to be on any medication Vitals Date Recorded Body weight Heart rate Respiratory rate Body temperature Oxygen saturation Oxygen saturation in Arterial blood by Pulse oximetry Systolic And Diastolic Provider Name and Address Organization Details Last Updated DateTime 9 76092.5 1 g 70 /min 20 /min 96.9 [degF] 98 % 98 % 128/74 mm[Hg] FIDEL MAURO [address] [facility], [address], [place], [address], [facility] 9 11:06:12 Date Recorded Systolic And Diastolic Provider Name and Address Organization Details Last Updated DateTime 03/02/2019 120/68 mm[Hg] Brittaney Mcelroy MD [address] [facility], [address], [place], [address], [facility] [employer] [facility] 03/02/2019 06:55:54 Social History Question Answer Notes LastModified by Organizat ion Details LastModified Time Tobacco Smoking Status Former Smoker Not Available [facility] 02/14/2020 03:13:21 Do You Have An Advance Directive? Yes FULL CODE-undecide d About Dialysis And Nutrition-may Use Hydration [id number] Information not available 02/14/2020 How Many Years Have You Consumed Alcohol? 30 [id number] Information not available 02/14/2020 How Much Tobacco Do You Chew? None [id number] Information not available 02/14/2020 Do You Have A Medical Power Of Office Professionals? Yes Hcp On File [id number] Information not available 02/14/2020 What Was The Date Of Your Most Recent Tobacco Screening? 02/25/2019 [id number] Information not available 02/14/2020 How Much Tobacco Do You Smoke? 1 PPD [id number] Information not available 02/14/2020 On What Date Was Tobacco Cessation Counseling Provided? 02/25/2019 NA [id number] Information not available 02/14/2020 How Many Years Have You Smoked Tobacco? 30 [id number] Information not available 02/14/2020 Sex: Unknown Functional Status Question Answer Note LastModified by Organizat ion Details LastModified Time What is your level of alcohol consumption? None quit drinking in 2015 [id number] Information not available 02/14/2020 Do you or have you ever used smokeless tobacco? Never used smokeless tobacco [id number] Information not available 02/14/2020 Do you or have you ever used e-cigarettes or vape? Never used electronic cigarettes [id number] Information not available 02/14/2020 Mental Status None recorded. Family History Nothing Reported. Medical History No medical history recorded. Past Encounters Encounter ID Performer Location Encounter Start Date Encounter Closed Date Diagnosis/Indication Diagnosis SNOMED-CT Code Diagnosis ICD10 Code Diagnosis IMO Codes Diagnosis Note [id number] CACHORRO FIDEL CARLSON [address] [address] 02/25/2019 08:25:36 03/04/2019 13:41:33 Bacteremia 2987454 R78.81 completed treatmentm onitor dsg changes qdwet to dryareas clean Hyponatremia 55659686 E8 7.1 resolvedmo nitor labs Cirrhosis of liver K70.31 lactulose 30 mls tid 3-4 stools a dayspirono lactone 50 mg qdmonitoro n transplant listfollow s with [facility] Diabetes mellitus 642286 09 E11.9 lantus 8 units q tiBXTA1k here is 4.2monitor for s/s of hypo/hyper glycemia Gastroesop hageal reflux disease without esophagitis 798016713 K21.9 omeprazole 20 mg qdmonitor for symptoms Bacterial peritonitis 19 6447046 K65.2 recurrentc ipro 500 mg qd prophymoni tor for symptoms Edema of l ower extremity 933417714 R60.0 lasix 20 mg qdmonitor edema [id number] Brittaney Mcelroy MD [address] [address] 03/02/2019 06:54:11 03/04/2019 13:42:54 Cirrhosis of liver 66395139 K70.31 fu GIlactulos e 20 gm tidfurosem concetta 20 mg dailymagne sium 400 mg dailyspiro nolactone 25 mg dailyon transplant list [facility] Diabetes mellitus 863809 09 E11.9 Humalog per sliding scaleLantu s 8U dailywill monitor Gastroesop hageal reflux disease without esophagitis 930402634 K21.9 omeprazole 20 mg dailywill monitor Anemia 384602752 D50.8 suspect multifacto rial including GI blood loss, chronic diseaseawa it B12, folateiron 325 mg bidwill continue to monitor Bacteremia 3726189 R78.8 1 antibiotic s completedd aily dressing changes legfu surgery Bacterial peritonitis 19 4006102 K65.2 history of in pastCipro 500 mg daily for prophylaxi sfu GI [facility] Health Concerns Section Related Observation LastModified by Organization Detai ls LastModified Time None Recorded Concern Status LastModified by Organization Details LastModified Time None Recorded Advance Directives Directive Y: FULL CODE-undecided about dialysis and nutrition-may use hydration Payers Insurance Date Sequence Insurance Name Policy Number Policy Banks Covered Member ID Banks Member ID Guarantor Name 03/04/2019 2 [place]ID[place]: [facility] Edward Danay [id number] Edward Jon 03/04/2019 1 [facility] - DOS PRIOR TO 2022 - DUAL ELIGIBLE (MEDICARE REPLACEMENT/AD VANTAGE - HMO) Edward Danay [id number] Edward Jon Notes Date Note Type Note Provider Name and Address Organization Details Recorded Time 02/25/2019 text/html A 54 year old male being seen for a initial intake note. Patient was at [facility] for fever and lower extremity edema/pain. He was transferred to [facility] for bacteremia. He grew ESBL E. [...] GERD, DM, hyponatremia and SBP. CACHORRO CARLSON, FIDEL [address] [facility], [address], [place], [address], [facility] [employer] [facility] 02/25/2019 11:10:47 03/02/2019 text/html ROS as noted in the HPI This 54 year old male was admitted to [facility] 02/23/19 for continued care and rehab after hospitalization for fever and lower extremity edema/pain. Patient has history of alcoholic liver disease and cirrhosis and is on transplant list. He was initially admitted to [facility], then transferred to [facility] for bacteremia. His blood cultures grew ESBL E. Coli and he started on antibiotics, initially Zosyn which was changed to meropenem, then ertapenem to complete a 10 day course. Patient has history recurrent bacteremia in past few months. During most recent prior [facility] admission, it was suspected that likely source of bacteremia was biliary. Patient had worsened R>L leg edema and US was negative at [facility] for DVT. CT of right lower [...] MOLST: full code Brittaney Mcelroy MD [address] [facility], [address], [place], [address], [facility] [employer] 03/02/2019 08:11:36
--- OUTSIDE RECORDS SUMMARY | 2025-01-18 07:00 | XMS_ITS | Encounter Summary ---
Author Organization [facility] Address [address] [place] [address] Care Team Providers Care Scale Operator Name Role Phone Agustin Mix Primary Care Provider + Encounter Details Date Type Department Care Team (Late st Contact Info) Description 01/21/2017 Transplant Conversio n Encounter [facility] Health Information Management [address] [place] [address] Provider, [facility] Social History Tobacco Use Types Packs/Day [...] Info) Description 02/06/2025 9:30 AM EDT Follow-Up [facility] Transplant [facility] [address] [place] [address] Dylan Phelps MD [address] [place] [address] documented as of this encounter Visit Diagnoses Not on filedocumented in this encounter Additional Health Concerns Infection Onset Date Last Indicated Resolved Time 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 + BC at [facility] > 6 months ago - can D/C contact isolation 01/20/2019 02/10/2019 08/10/2019 9:27 AM E DT COVID-19 - Suspected infection 03/05/2020 03/17/2020 03/17/2020 7:55 PM EST COVID-19 - Confirmed infection 05/01/2020 05/07/2020 06/01/2020 5:06 PM EST COVID-19 - Suspected infection 05/10/2020 05/10/2020 05/24/2020 10:34 PM EST documented as of this encounter Care Teams Scale Operator Relationship Specialty Start Date End Date Agustin Mix [address] [place] [address] PCP - General Internal Medicine 04/15/17 documented as of this encounter
--- OUTSIDE RECORDS SUMMARY | 2025-01-18 07:00 | XMS_ITS | Encounter Summary ---
Author Organization [employer] Address [address] [place] [address] [address] Care Team Providers Care Web Content Manager Name Role Phone Agustin Marrero MD Primary Care Provide r Encounter Details Date Type Department Care Team (Latest Contact Info) Description 05/23/2019 Abstract [facility] CONVERSIONS Dental, Provider, DDS Social [...] Description 02/23/2025 10:00 AM EST Office Visit [facility] MEDICINE [address] [place] [address] Agustin Marrero MD [address] [place] [address] 03/24/2025 9:00 AM EST Clinical Support [facility] [address] [place] [address] Shwetha Collado RN [address] [place] [address] 05/31/2025 8:00 AM EST Office Visit [facility] ADULT DENTAL [address] [place] [address] Catherine Antonio [address] [place] [address] documented as of this encounter Visit Diagnoses Not on filedocumented in this encounter Care Teams Web Content Manager Relationship Specialty Start Date End Date Agustin Marrero MD [address] [place] [address] PCP - General Internal Medicine 01/25/14 [facility] 06/13/16 documented as of this encounter
--- OUTSIDE RECORDS SUMMARY | 2025-01-18 07:00 | XMS_ITS | Encounter Summary ---
Author Organization [employer] Address [address] [place] [address] [address] Care Team Providers Care Junior Financial Analyst Name Role Phone Agustin Marrero MD Primary Care Provide r Reason for Visit * Reason Onset Date Comments Med Refill 12/15/2022 Encounter Details Date Type Department Care Team ([facility] st Contact Info) Description 12/15/2022 Telephone [facility] MEDICINE [address] [place], [place] [phone] Agustin Marrero MD [address] [place] [address] Med Refill Social History Tobacco Use Types [...] Description 02/23/2025 10:00 AM EST Office Visit [facility] MEDICINE [address] [place] [address] Agustin Marrero MD [address] [place] [address] 03/24/2025 9:00 AM EST Clinical Support [facility] MEDICINE [address] [place] [address] Shwetha Collado, RN [address] [place], [place] [phone] 05/31/2025 8:00 AM EST Office Visit [facility] ADULT DENTAL [address] [place] [address] Paco, Catherine [address] [place] [address] documented as of this encounter Visit Diagnoses Not on filedocumented in this encounter Care Teams Junior Financial Analyst Relationship Specialty Start Date End Date Agustin Marrero MD [address] [place] [address] PCP - General Internal Medicine 01/25/14 [facility] 06/13/16 documented as of this encounter
--- OUTSIDE RECORDS SUMMARY | 2025-01-18 07:00 | XMS_ITS | Patient Health Record ---
Author Organization [facility] [place] Address [address] [facility] [place] [address] Care Team Providers Care Agricultural Appraiser Name Role Phone Nura Connelly MD, Agustin Primary Care Provide r Unavailable Sun Jj Unavailable [phone] Yovanny Long Unavailable [phone] Allergies No Known Allergies Results Component Value Reference Range Notes HEMOGLOBIN A1C (GLYCOHEMOGLO BIN) Reviewed date:11/04/2024 11:47:55 AM Interpretation: Performing Lab: Notes/Report: HEMOGLOBIN A1C % (HH) 7.3 Reason For Referral No Information Medications Medication SIG (Take, Route, Frequency, Duration) Notes Start Date End Date Status Multivitamin - 1 tablet Orally Once a day Active Ciclopirox Olamine 0.77 % 1 application to affected area Externally Twice a day to effected areas on feet; Duration: 30 days 01/12/2025 Active Omeprazole 20 MG 1 capsule 1/2 to 1 h our before morning meal Orally Once a day Active Magnesium 400 MG as directed Orally Active Vitamin D3 148771 UNIT/GM as directed Active Tacrolimus 1 MG as directed Orally Active Ammonium Lactate 12 % 1 application Exte rnally to affected areas of dry skin to feet except for between the toes Twice a day; Duration: 30 days Active Losartan Potassium 25 MG 1 tablet Orally Once a day Active Extra Depth Orthopedic Shoes (1 Pair) with Customized Heat Molded Multidensity Innersoles (3 Pair) Dx: NIDDM/Polyneuropathy (E11.42), Hammertoe Foot Deformity (M20.41,M20.42), Preulcerative Skin Lesion(s) (L85.1); Duration: 365 days 11/03/2024 Active Ketoconazole 2 % 1 application Apply a thin layer to externally to feet, even between toes Twice a day; Duration: 30 days Active Immunizations Vaccine Route Administration Date Status [...] Problem Acquired hammer toe of right foot (3458670161199647 ) Other hammer toe(s) (acquired), right foot (M20.41) Active confirmed Problem Acquired hammer toe of left foot (1495757626561868 ) Other hammer toe(s) (acquired), left foot (M20.42) Active confirmed Problem Polyneuropathy due to type 2 diabetes mellitus (143722575) Type 2 diabetes mellitus with diabetic polyneuropathy (E11.42) Active confirmed Vital Signs Heart Rate 68 /min 06/17/2024 Blood pressure diastolic 81 mm Hg 01/12/2025 Height 5ft 7in in 01/12/2025 Blood pressure systolic 134 mm Hg 01/12/2025 Weight 205 lbs 01/12/2025 BMI 32.1 kg/m2 01/12/2025 Procedures Procedure Date Ordered Date Performed Result Body Sit e 17644-XKOSSKW NAIL, 6 OR MORE 03/10/2024 N/A 39520-[id number] NAIL, 6 OR MORE 06/17/2024 N/A Encounters Encounter Location Date Provider Diagnosis [address] [address] 03/10/2024 Yovanny Long Onychomycosis B35.1 ; Xerosis of skin L85.3 ; Pain in right toe(s) M79.674 and Pain in left toe(s) M79.[address] [facility] [address] [address] 06/17/2024 Yovanny Long Onychomycosis B35.1 and Type 2 diabetes mellitus with other diabetic neurological complication E11.[facility] [address] 11/03/2024 Sun Jj Type 2 diabetes mellitus with diabetic polyneuropathy E11.42 ; Other hammer toe(s) (acquired), right foot M20.41 ; Tinea unguium B35.1 ; Tinea pedis of both feet B35.3 and Other hammer toe(s) (acquired), left foot M20.[address] [address] 01/12/2025 Sun Jj Other hammer toe(s) (acquired), right foot M20.41 ; Tinea pedis of both feet B35.3 ; Type 2 diabetes mellitus with diabetic polyneuropathy E11.42 ; Tinea unguium B35.1 and Other hammer toe(s) (acquired), left foot M20.[address] [address] 03/10/2024 [facility] [address] [facility] [address] 11/03/2024 Sun Jj Assessments Encounter Date Diagnosis (ICD Code) Assessment Notes Treatment Notes Treatment Clinical Notes Section Notes 03/10/2024 Xerosis of skin (ICD-10 - L85.3) Application of [place]-[employer]he skin lotion to his feet 03/10/2024 Onychomycosis (ICD-10 - B35.1) 06/17/2024 Type 2 diabetes mellitus with other diabetic neurological complication (ICD-10 - E11.49) 06/17/2024 Onychomycosis (ICD-10 - B35.1) 11/03/2024 Other hammer toe(s) (acquired), right foot (ICD-10 - M20.41) Patient Educated with: DIABETIC FOOT CARE INSTRUCTIONS.pd f (DIABETIC FOOT CARE INSTRUCTIONS.pd f) 11/03/2024 Type 2 diabetes mellitus with diabetic polyneuropathy (ICD-10 - E11.42) 01/12/2025 Other hammer toe(s) (acquired), right foot (ICD-10 - M20.41) 01/12/2025 Tinea pedis of both feet (ICD-10 - B35.3) 01/12/2025 Type 2 diabetes mellitus with diabetic polyneuropathy (ICD-10 - E11.42) 11/03/2024 Tinea unguium (ICD-10 - B35.1) 03/10/2024 Pain in right toe(s) (ICD-10 - M79.674) 03/10/2024 Pain in left toe(s) (ICD-10 - M79.675) 11/03/2024 Tinea pedis of both feet (ICD-10 - B35.3) Patient Educated with: ATHELETE .pdf (ATHELETE .pdf) 01/12/2025 Tinea unguium (ICD-10 - B35.1) 01/12/2025 Other hammer toe(s) (acquired), left foot (ICD-10 - M20.42) 11/03/2024 Other hammer toe(s) (acquired), left foot (ICD-10 - M20.42) 05/26/2024 Other 06/17/2024 Other Application of [place]-Soothe skin lotion to his feet Plan Of Treatment Pending Test Test Name Order Date [id number] NAIL, 6 OR MORE 03/10/2024 [id number] NAIL, 6 OR MORE 06/17/2024 Next Appt Details Provider Name:Sun kenney, 03/23/2025 10:00:00 AM, [address] [facility], [place], [address], Insurance Providers Payer Name Payer Address Payer Phone Subscriber Number Group Number Insured Name Patient Relationship to Insured Coverage Start Date Coverage End Date [facility] [employer] Claims [address] [place] [address] [phone] [id number] Edward Jon Self - patient is the insured Medical (General) History Medical History History ICD Code Back,Hip,and Knee pain Broken bones Cataracts covid-19 Dementia Depression Diabetic Gall bladder problems Hiatal hernia High Blood Pressure Liver disease Psychiatric disorder Surgical History Surgery Date(Month/Year) back surgery 02/2024
--- OUTSIDE RECORDS SUMMARY | 2025-01-18 07:00 | XMS_ITS | Encounter Summary ---
Author Organization [employer] Address [address] [place] [address] [address] [place] [address] Care Team Providers Care [employer] Pe Teacher Name Role Phone Agustin Marrero MD Primary Care Provide r Reason for Visit * Reason Onset Date Comments Med Refill 10/16/2022 Encounter Details Date Type Department Care Team ([facility] st Contact Info) Description 10/16/2022 Telephone [facility] MEDICINE [address] [place], [place] [phone] Agustin Marrero MD [address] [place], [place] [phone] Med Refill Social History Tobacco Use Types [...] Description 02/23/2025 10:00 AM EST Office Visit [facility] MEDICINE [address] [place] [address] Agustin Marrero MD [address] [place] [address] 03/24/2025 9:00 AM EST Clinical Support [facility] MEDICINE [address] [place] [address] Shwetha Collado, KATALINA [address] [place] [address] 05/31/2025 8:00 AM EST Office Visit [facility] ADULT DENTAL [address] [place] [address] Paco, Catherine [address] [place] [address] documented as of this encounter Visit Diagnoses Not on filedocumented in this encounter Care Teams [employer] Pe Teacher Relationship Specialty Start Date End Date Agustin Marrero MD [address] [place] [address] PCP - General Internal Medicine 01/25/14 [facility] 06/13/16 documented as of this encounter
--- OUTSIDE RECORDS SUMMARY | 2025-01-18 07:00 | XMS_ITS | Encounter Summary ---
Author Organization [employer] Address [address] [place] [address] 7t [place] [address] Care Team Providers Care Radiology Technologist Name Role Phone Agustin Marrero MD Primary Care Provide r Encounter Details Date Type Department Care Team ([facility] st Contact Info) Description 01/17/[address] [facility] [address] [place], [place] [phone] Agustin Marrero MD [address] [place], [place] [phone] Social History Tobacco Use Types Packs/Day Years [...] * Telephone Encounter - Kalpana Marino - 01/17/2025 1:49 PM EDT Insurance requesting Letter of medical necessity as well as new Rx for power lift recliner repairs and PT/OT evaluation. Please provide LMN at your earliest convenience. Thank you Rx for power lift recliner repairs sent to pcp via [employer]. * Telephone Encounter - Kalpana Marino - 01/17/2025 1:49 PM EDT ----- Message from Jaquelin Saab sent at 01/17/2025 12:44 PM EDT ----- Regarding: DME Request Contact: Shantell, I am Jaquelin Araujo, Lead Raisin Separator Operator for [facility] Care Management, requesting assistance on behalf of this patient. This report writer submitted a referral to [facility] for a Power Lift Recliner Chair with results of PT/OT EVAL attached and was informed a new script will be needed. This report writer received the following message from [employer], ???Based on the available information, the order for Edward Alvarado was cancelled because the patient already received a lift recliner on 07/29/23. If the recliner is broken and the PT/OT evaluation supports the need for a replacement, a new prescription explicitly stating the need for repair or replacement, along with a Letter of Medical Necessity (LOMN), will be required to reopen the order?? . May you please generate a new script as requested along with a Letter of Medical Necessity (LOMN) as Franisco???s current recliner is broken and is in need for a new one. If you should have any inquiries regarding this request, feel free to contact the Raisin Separator Operator below. Lead Perfect Binder Feeder Offbearer: Jaquelin Araujo E-mail: [email or web address] Trimmer: Radha Chatman E-mail: [email or web address] Thanks in advance for your assistance with this request. Sincerely, [facility] Care Management documented in this encounter Plan of Treatment Upcoming Encounters Date Type Department Care Team (Late st Contact Info) Description 02/23/2025 10:00 AM EST Office Visit [facility] [address] [place] [address] Agustin Marrero MD [address] [place] [address] 03/24/2025 9:00 AM EST Clinical [address] [facility] [address] [place] [address] Shwetha Collado RN 505 [place] [address] 05/31/2025 8:00 AM EST Office Visit [facility] ADULT DENTAL [address] [place] [address] Catherine Antonio [address] [place] [address] documented as of this encounter Visit Diagnoses Not on filedocumented in this encounter Additional Health Concerns Assessment Noted Time PHQ-9 Depression Total Score: 0 11/02/19 25 9:25 AM EDT documented as of this encounter Care Teams Radiology Technologist Relationship Specialty Start Date End Date Agustin Marrero MD [address] [place] [address] PCP - General Internal Medicine 01/25/14 [facility] 06/13/16 documented as of this encounter
--- OUTSIDE RECORDS SUMMARY | 2025-01-18 07:00 | XMS_ITS | Encounter Summary ---
Author Organization [employer] Address [address] [place] [address] 7 [place] [address] Care Team Providers Care Hand Brush Filler Name Role Phone Agustin Marrero MD Primary Care Provide r Encounter Details Date Type Department Care Team (Latest Contact Info) Description 09/06/2018 Abstract [facility] CONVERSIONS Dental, Provider, DDS Social History Tobacco [...] 10:00 AM EST Office Visit [facility] MEDICINE [address] [place] [address] Agustin Marrero MD [address] [place] [address] 03/24/2025 9:00 AM EST Clinical Support [facility] MEDICINE [address] [place] [address] Shwetha Collado RN 505 [place] [address] 05/31/2025 8:00 AM EST Office Visit [facility] ADULT DENTAL [address] [place] [address] Catherine Antonio [address] [place] [address] documented as of this encounter Visit Diagnoses Not on filedocumented in this encounter Care Teams Hand Brush Filler Relationship Specialty Start Date End Date Agustin Marrero MD 230 [place] [address] PCP - General Internal Medicine 01/25/14 [facility] 06/13/16 documented as of this encounter
--- OUTSIDE RECORDS SUMMARY | 2025-01-18 07:00 | XMS_ITS | Encounter Summary ---
Author Organization [facility] Address [address] [place] [address] Care Team Providers Care Change Manager Name Role Phone Agustin Mix Primary Care Provider + Encounter Details Date Type Department Care Team (Late st Contact Info) Description 04/02/2020 Orders Only [facility] Interventional Radiology [address] [place] [address] Kathy Bowling MD [address] [place], [place] [phone] Social History Tobacco Use Types Packs/Day Years [...] Info) Description 02/06/2025 9:30 AM EDT Follow-Up [facility] [address] [place], [place] [phone] Dylan Phelps MD [address] [place] [address] documented as of this encounter Visit Diagnoses Not on filedocumented in this encounter Additional Health Concerns Infection Onset Date Last Indicated Resolved Time COVID-19 - Confirmed infection 05/01/2020 05/07/2020 06/01/2020 5:06 PM EST COVID-19 - Suspected infection 05/10/2020 05/10/2020 05/24/2020 10:34 PM EST documented as of this encounter Care Teams Change Manager Relationship Specialty Start Date End Date Agustin Mix [address] [place] [address] PCP - General Internal Medicine 04/15/17 documented as of this encounter
--- OUTSIDE RECORDS SUMMARY | 2025-01-18 07:01 | XMS_ITS | Encounter Summary ---
Author Organization [email or web address] Address [address] [place] [address] 7t [place] [address] Care Team Providers Care Ict Educator Name Role Phone Agustin Marrero MD Primary Care Provide r Encounter Details Date Type Department Care Team ([facility] st Contact Info) Description 05/05/[address] [facility] MED[facility]INE [address] [place], [place] [phone] Agustin Marrero MD [address] [place], [place] [phone] Social History Tobacco Use Types Packs/Day Years [...] EST Office Visit [facility] MED[facility]INE [address] [place] [address] Agustin Marrero MD [address] [place] [address] 03/24/2025 9:00 AM EST Clinical Support [facility] [address] [place] [address] Shwetha Collado, RN [address] [place] [address] 05/31/2025 8:00 AM EST Office Visit [facility] ADULT DENTAL [address] [place] [address] Paco, Catherine [address] [place] [address] documented as of this encounter Visit Diagnoses Not on filedocumented in this encounter Care Teams Ict Educator Relationship Specialty Start Date End Date Agustin Marrero MD [address] [place] [phone] PCP - General Internal Medicine 01/25/14 [facility] 06/13/16 documented as of this encounter
--- OUTSIDE RECORDS SUMMARY | 2025-01-18 07:01 | XMS_ITS | Encounter Summary ---
Author Organization [employer] Address [address] [place] [address] 7t [place] [address] Care Team Providers Care Cement Breaker Name Role Phone Agustin Marrero MD Primary Care Provide r Reason for Visit * Reason Comments Med Refill Encounter Details Date Type Department Care Team ([facility] st Contact Info) Description 06/04/2023 Refill [facility] MEDICINE [address] [place], [place] [phone] Natasha Nguyen MD 230 [place] [address] Gastroesophageal reflux disease, unspecified whether esophagitis present [...] Description 02/23/2025 10:00 AM EST Office Visit [facility] MEDICINE [address] [place] [address] Agustin Marrero MD [address] [place] [address] 03/24/2025 9:00 AM EST Clinical Support [facility] MEDICINE [address] [place] [address] Shwetha Collado, RN [address] [place] [address] 05/31/2025 8:00 AM EST Office Visit [facility] ADULT DENTAL [address] [place] [address] Catherine Antonio [address] [place] [address] documented as of this encounter Visit Diagnoses Diagnosis Gastroesophageal reflux disease, unspecified whether esophagitis present documented in this encounter Care Teams Cement Breaker Relationship Specialty Start Date End Date Agustin Marrero MD [address] [place] [address] PCP - General Internal Medicine 01/25/14 [facility] 06/13/16 documented as of this encounter
--- OUTSIDE RECORDS SUMMARY | 2025-01-18 07:01 | XMS_ITS | Encounter Summary ---
Author Organization [employer] Address [address] [place] [address] 7 [place] [address] Care Team Providers Care Collar Tacker Name Role Phone Agustin Marrero MD Primary Care Provide r Reason for Visit * Reason Onset Date Comments Med Refill 05/26/2023 Encounter Details Date Type Department Care Team ([facility] st Contact Info) Description 05/26/2023 Telephone [facility] MEDICINE [address] [place], [place] [phone] Agustin Marrero MD [address] [place], [place] [phone] Med Refill Social History Tobacco Use Types [...] LITE test strip To be sent to: [facility]/pharmacy [address] [place] [address] - [address] [place] [address] documented in this encounter Plan of Treatment Upcoming Encounters Date Type Department Care Team (Late st Contact Info) Description 02/23/2025 10:00 AM EST Office Visit [facility] MEDICINE [address] [place] [address] Agustin Marrero MD [address] [place] [address] 03/24/2025 9:00 AM EST Clinical Support [facility]INE [address] [place] [address] Shwetha Collado RN 505 [place] [address] 05/31/2025 8:00 AM EST Office Visit [facility] ADULT DENTAL [address] [place] [address] Catherine Antonio [address] [place] [address] documented as of this encounter Visit Diagnoses Not on filedocumented in this encounter Care Teams Collar Tacker Relationship Specialty Start Date End Date Agustin Marrero MD [address] [place] [address] PCP - General Internal Medicine 01/25/14 [facility] 06/13/16 documented as of this encounter
--- OUTSIDE RECORDS SUMMARY | 2025-01-18 07:01 | XMS_ITS | Encounter Summary ---
Author Organization [employer] Address [address] [place] [address] 7 [place] [address] Care Team Providers Care Container Packer Operator Name Role Phone Agustin Marrero MD Primary Care Provide r Reason for Visit * Reason Onset Date Comments Error 05/12/2023 Encounter Details Date Type Department Care Team ([facility] st Contact Info) Description 05/12/2023 Telephone [facility] MEDICINE [address] [place], [place] [phone] Agustin Marrero MD [address] [place], [place] [phone] Error Social History Tobacco Use Types Packs/Day [...] Office Visit [facility] MEDICINE [address] [place] [address] Agustin Marrero MD [address] [place] [address] 03/24/2025 9:00 AM EST Clinical Support [facility] MEDICINE [address] [place] [address] Shwetha Collado, RN [address] [place] [address] 05/31/2025 8:00 AM EST Office Visit [facility] ADULT DENTAL [address] [place] [address] Paco, Catherine [address] [place] [address] documented as of this encounter Visit Diagnoses Not on filedocumented in this encounter Care Teams Container Packer Operator Relationship Specialty Start Date End Date Agustin Marrero MD [address] [place] [address] PCP - General Internal Medicine 01/25/14 [facility] 06/13/16 documented as of this encounter
[2025-01-18 07:12] LABS: MANUAL DIFF FLAG NO
[2025-01-18 07:42] LABS: Hematocrit 38.0 % (42.0-52.0); Hemoglobin 14.0 g/dl (14.0-18.0); Imm Gran Abs Auto 0.02 X10*3/uL (0.00-0.03); Imm Gran Pct Auto 0.4 % (0.0-0.4); Lymphocytes Absolute Auto 1.4 X10*3/uL (1.2-4.9); Mean Corpuscular HGB Conc 36.8 g/dl (31.0-36.0); Mean Corpuscular Hemoglobin 30.4 pg (27.0-33.0); Mean Corpuscular Volume 82.4 fL (80.0-98.0); NRBC Abs Auto 0.000 X10*3/uL (0.0-0.012); NRBC Pct Auto 0.0 /100WBC (0.0-0.2); Platelet Count 122 X10*3/uL (160-400); Red Blood Count 4.61 X10*6/uL (4.60-5.80); White Blood Count 5.5 X10*3/uL (4.8-10.8)
[2025-01-18 08:21] LABS: Alanine Aminotransferase 34 U/L (0-40); Albumin Level 4.4 g/dL (3.5-5.0); Alkaline Phosphatase 104 U/L (39-117); Anion Gap 12 (12-20); Aspartate Amino Transferase 29 U/L (5-37); Blood Urea Nitrogen 14 mg/dL (9-16); Calcium 8.8 mg/dL (8.4-10.2); Carbon Dioxide 23 mmol/L (22-29); Chloride 109 mmol/L (96-108); Estimated Glomerular Filt Rate > 60; Magnesium 1.7 mg/dL (1.6-2.6); Potassium 4.5 mmol/L (3.3-5.1); Sodium 139 mmol/L (135-145); Total Protein 6.8 g/dL (6.5-8.0)
[2025-01-19 09:18] LABS: Tacrolimus Prograf 3.9 mcg/L
== END 2025-01-18 06:56 | disposition home or self-care (01) ==
LOC: HO.LAB 06:55
PROVIDERS: PCP Internal Medicine; Visit Provider Internal Medicine
DX: Z51.81 Encounter for therapeutic drug level monitoring (principal); Z85.05 Personal history of malignant neoplasm of liver; Z94.4 Liver transplant status; Z79.899 Other long term (current) drug therapy
CPT/HCPCS: 36415; 80053; 80197; 82105; 83735; 85025

== ENCOUNTER 2025-02-17 06:22 | Outpatient (REF) | payer OTHER, SELFPAY ==
--- OUTSIDE RECORDS SUMMARY | 2024-05-26 06:15 | XMS_ITS ---
Author Organization [facility] Reji bill [place] Address [address] [facility] [place] [address] Care Team Providers Care Cash Application Clerk Name Role Phone Nura Connelly MD, Agustin Primary Care Provide r Unavailable Sun Jj Unavailable [phone] Yovanny Long Unavailable [phone] REASON FOR VISIT last visit pcp 12/31/23, [...] Orally Once a day Active Vitamin D3 987737 UNIT/GM as directed Active Losartan Potassium 25 [...] nsmoker Encounters Encounter Location Date Provider [facility] [place] [address] 05/26/2024 Yovanny Long Onychomycosis B35.1 ; Pain [...] Provider Name:Sun kenney, 03/23/2025 10:00:00 AM, [address], [place], [address], Procedure Notes * Category Sub-Category Detail Notes [...] use of a nail nipper and/or dremel-type watch crystal grinder, to a more viable healthy nail [...] to maintain effectiveness in symptomatic relief - 64997 Progress Notes * Edward JONDOB:[birth year] (60 yo M)Acc No.[id number]:05/26/2024 Progress Note Patient: Edward WINTER Provider: Kishan Long D.P.M. :1965 A ge:59 Y S ex:Male Date:05/26/2024 Address:[address] [place], [place] [id number] Pcp:Agustin Connelly MD Subjective: * Chief Complaints: [...] enies. C ardiovascular: Pacemaker d enies. 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 W PW d enies. C [...] as directed Orally , Taking Vitamin D3 817760 UNIT/GM Powder as directed , Taking Losartan [...] use of a nail nipper and/or dremel-type watch crystal grinder, to a more viable healthy nail [...] to maintain effectiveness in symptomatic relief - 63195. * Procedure Codes: 1 1721 DEBRIDE NAIL, [...] 0 05/26/2024 Generated for Francisco reagan/Eloina/Samantha on: 06:25 AM EDT History and Physical Notes * [...]
--- OUTSIDE RECORDS SUMMARY | 2024-08-29 07:00 | XMS_ITS ---
Author Organization [facility] Address [address] [place] [address] Care Team Providers Care Sub Master Name Role Phone Nura Connelly MD, Agustin Primary Care Provide r Unavailable Sun Jj Unavailable [phone] Encounters Encounter Location Date Provider Diagnosis [address] [address] 08/29/2024 Sun Jj Plan Of Treatment Next Appt Details Provider Name:Sun kenney, 03/23/2025 10:00:00 AM, [address] [place] [address], [place], [address], Progress Notes * Edward JONDOB:[birth year] (60 yo M)Acc No.[id number]:08/29/2024 Progress Note Patient: Edward WINTER Provider: Hola Jj DPM :1965 A ge:59 Y S ex:Male Date:08/29/2024 Address:[address] [place] [address] [address], [place] Pcp:Agustin Connelly MD Subjective: * Chief Complaints: [...] 08/29/2024 Generated for Francisco reagan/Eloina/Samantha on: 1 06:25 AM EDT
--- OUTSIDE RECORDS SUMMARY | 2025-02-15 23:59 | XMS_ITS | Continuity of Care Document ---
Author Organization [facility] Address [address] [place] [address]- Care Team Providers Care Sample Wrapper Name Role Phone Maria Del Rosario LONG, Agustin Moran Primary Care Physi cindy [id number] Date(s): 01/16/25 - 02/15/25 [facility] [address] [place] [id number] Encounter Type: Triage Allergies, Adverse Reactions, Alerts No Known Allergies Medications cholecalciferol 2000 intl units oral tablet TOME OLINDA TABLETA TODOS LOS D Start Date: 07/30/21 Status: Ordered Medication Dispense Status: Completed Total Allowed Fills: 1 Fills Dispensed: 0 Daily Stacy oral tablet TOME OLINDA TABLETA TODOS LOS D Start Date: 07/30/21 Status: Ordered Medication Dispense Status: Completed Total Allowed Fills: 1 Fills Dispensed: 0 Freestyle Arvin 3 [place] Freestyle Arvin 3 [place], See Instructions, # 1 each, Refills 0, Tot. Refills 0, Maintenance, Use as directed for Diabetes Control E11.9, 07/21/24 11:19:00 AM EDT, Supply, 170.18, cm, 07/21/24 10:49:00EDT, Height Start Date: 07/21/24 Status: Ordered Medication Dispense Status: Completed Quantity: 1.0 Unit: each Total Allowed Fills: 1 Fills Dispensed: 0 Freestyle Arvin 3 Sensor Plus Freestyle Arvin 3 Sensor Plus, See Instructions, # 2 each, Refills 11, Tot. Refills 11, Maintenance, Use as directed for Diabetes Control. Change every 15 days E11.9, 07/21/24 11:19:00 AM EDT, Supply, 170.18, cm, 07/21/24 10:49:00 EDT, Height Start Date: 07/21/24 Status: Ordered Medication Dispense Status: Completed Quantity: 2.0 Unit: each Total Allowed Fills: 12 Fills Dispensed: 0 gabapentin 300 mg oral capsule TAKE 1 CAPSULE BY MOUTH IN THE MORNING AND NOON AND 2 CAPSULES AT BEDTIME Start Date: 07/30/21 Status: Ordered Medication Dispense Status: Completed Total Allowed Fills: 1 Fills Dispensed: 0 Gvoke HypoPen 0.5 mg/0.1 mL subcutaneous solution 0.2 mL = 1 mg, Subcutaneous Injection, Once, To be use for hypoglycemic emergency by family member or accompanying person, if blood glucoses less than 60 and unconscious. Please call 911 after use glucagon pen., # 0.2 mL, 0 Refills, Soft Stop, 01/04/24 10:26:00 AM EDT, Solution, [id number], i nstruction in romanian, 170.18, cm, 01/04/24 9:51:00 EDT, Height Start Date: 01/04/24 Status: Ordered Medication Dispense Status: Completed Quantity: 0.2 Unit: mL Total Allowed Fills: 1 Fills Dispensed: 0 Insulin Syringe, BD Ultra-Fine 0.3 cc 31 G x 8 mm (5/16in) See Instructions, # 100 each, Refills 1, Tot. Refills 1, Maintenance, e11.9 for use with insulin vials until you have changed over to the pens., 07/30/23 8:23:00 AM EDT, Supply, 170.18, cm, 04/21/23 11:40:00 EST, Height Start Date: 07/30/23 Status: Ordered Medication Dispense Status: Completed Quantity: 100.0 Unit: each Total Allowed Fills: 2 Fills Dispensed: 0 Lantus Solostar Pen 100 units/mL subcutaneous solution See Instructions, INJECT 24 UNITS SUBCUTANEOUSLY EVERY DAY AT BEDTIME, # 15 mL, 11 Refills, Maintenance, 07/21/24 12:31:00 PM EDT, [id number], 170.18, cm, 07/21/24 10:49:00 EDT, Height Start Date: 07/21/24 Status: Ordered Medication Dispense Status: Completed Quantity: 15.0 Unit: mL Total Allowed Fills: 12 Fills Dispensed: 0 Melatonin = 5 mg, Daily at bedtime, 0 Refills, Maintenance, 01/29/19 6:06:24 PM EDT Start Date: 01/29/19 Status: Ordered Medication Dispense Status: Completed Total Allowed Fills: 1 Fills Dispensed: 0 NovoLOG FlexPen 100 units/mL injectable solution See Instructions, Take 4-9 units three times per day befor meals following scale. E11.9; Max daily dose: 40, # 30 mL, 6 Refills, Maintenance, 01/16/25 1:00:00 PM EDT, [facility]pharm[facility] #[id number], 170.18, cm, 01/11/25 9:15:00 EDT, Height Start Date: 01/16/25 Status: Ordered Medication Dispense Status: Completed Quantity: 30.0 Unit: mL Total Allowed Fills: 7 Fills Dispensed: 0 Omeprazole = 20 mg, By Mouth, Daily, 0 Refills, Maintenance, 01/29/19 6:03:38 PM EDT Start Date: 01/29/19 Status: Ordered Medication Dispense Status: Completed Total Allowed Fills: 1 Fills Dispensed: 0 omeprazole 20 mg oral enteric coated capsule DAVID Iniguez ANTES COMER Start Date: 07/30/21 Status: Ordered Medication Dispense Status: Completed Total Allowed Fills: 1 Fills Dispensed: 0 omeprazole 20 mg oral enteric coated capsule 1 capsule = 20 mg, By Mouth, Daily, # 30 capsule, 0 Refills, Maintenance, 07/30/21 11:07:00 AM EDT, EC Capsule, Partial fill upon patient request if the prescription is for a schedule II opioid drug. Start Date: 07/30/21 Status: Ordered Medication Dispense Status: Completed Quantity: 30.0 Unit: capsule Total Allowed Fills: 1 Fills Dispensed: 0 Pen [place], 31 G x 5 mm BD Ultra Fine III See Instructions, # 150 each, Refills 11, Tot. Refills 11, Maintenance, e11.9 use with insulin pens4 times daily as directed for subcutaneous injection, 07/21/24 12:31:00 PM EDT, Supply, 170.18, cm, 07/21/24 10:49:00 EDT, Height Start Date: 07/21/24 Status: Ordered Medication Dispense Status: Completed Quantity: 150.0 Unit: each Total Allowed Fills: 12 Fills Dispensed: 0 spironolactone 50 mg oral tablet 1 tablet = 50 mg, By Mouth, Daily, # 30 tablet, 0 Refills, Maintenance, 01/29/19 6:03:53 PM EDT, Tablet Start Date: 01/29/19 Status: Ordered Medication Dispense Status: Completed Quantity: 30.0 Unit: tablet Total Allowed Fills: 1 Fills Dispensed: 0 tacrolimus 1 mg oral capsule TAKE 3 CAPSULES (3 MG TOTAL) BY MOUTH 2 TIMES A DAY IN THE MORNING AND IN THE EVENING. Start Date: 07/30/21 Status: Ordered Medication Dispense Status: Completed Total Allowed Fills: 1 Fills Dispensed: 0 traMADol 50 mg oral tablet 1 tablet = 50 mg, By Mouth, Every 12 hours, PRN as needed for pain, 0 Refills, Maintenance, 07/30/2210:06:00 AM EDT, Tablet, Partial fill upon patient request if the prescription is for a schedule IIopioid drug. 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 Obese class I Confirmed Active Social History Social History Type Response Smoking Status Never (less than 100 in lifetime) entered on: 01/04/24 Sex Sex Representation Male (finding) Patient Care team information Care Team Personnel Name: Lorraine Rojas RN Position: [facility] RN Member Role: Primary Care Nurse Name: Maria Del Rosario OLNG, Agustin Moran Position: [facility] Outreach Member Role: PCP Address: [address] [place] [id number] Telecom: Name: Radha Lacy RN Position: [facility] RN Member Role: Primary Care Nurse Care Team Related Persons Name: BRETT ALLEN JR Name: ANIBAL LUONG Insurance Providers Guarantor name: BRYN Health Plan Information #: 1 Payer: [facility] Payer Identifier: BRYN Member Number: [id number] Group Number: [id number] Subscriber Identifier: NA Relationship to Subscriber: self Coverage Type: Medicare Managed Care (Includes Medicare Advantage Plans) Coverage Verification Date: NA Telecom: NA Address: NA
--- OUTSIDE RECORDS SUMMARY | 2025-02-17 06:25 | XMS_ITS | Encounter Summary ---
Author Organization [employer] Address [address] [place] [address] 7 [place] [address] Care Team Providers Care Engineering Professionals Name Role Phone Agustin Marrero MD Primary Care Provide r Reason for Visit * Reason Onset Date Comments fyi 12/13/2024 Encounter Details Date Type Department Care Team ([facility] st Contact Info) Description 12/13/2024 Telephone [facility] MEDICINE [address] [place], [place] [phone] Agustin Marrero MD [address] [place], [place] [phone] fyi Social History Tobacco Use Types Packs/Day [...] recorded. Call to Jessica DARDEN with [facility] at [phone], reports BP of 164/105 , pt had [...] to Edward Fonseca to triage below at [phone]. Reports took losartan after visiting nurse advised [...] to PCP as FYI and to advise [place] Team Primary care team nurses of plan [...] AM EDT Tc from Jessica at [facility] called to inform that pt had a elevated diastolic bp , 164/105. Pt denies any cardiac symptoms. Contact Jessica at [phone] documented in this encounter Plan of Treatment Upcoming Encounters Date Type Department Care Team (Late st Contact Info) Description 02/23/2025 10:00 AM EST Office Visit [facility] [address] [place] [address] Agustin Marrero MD [address] [place] [address] 03/24/2025 9:00 AM EST Clinical Support [facility]INE [address] [place] [address] Shwetha Collado RN [address] [place] [address] 05/31/2025 8:00 AM EST Office Visit [facility] ADULT DENTAL [address] [place] [address] Catherine Antonio [address] [place] [address] documented as of this encounter Visit Diagnoses Not on filedocumented in this encounter Additional Health Concerns Assessment Noted Time PHQ-9 Depression Total Score: 0 07/15/20 25 9:25 AM EDT documented as of this encounter Care Teams Engineering Professionals Relationship Specialty Start Date End Date Agustin Marrero MD [address] [place] [address] PCP - General Internal Medicine 01/25/14 [facility] 06/13/16 documented as of this encounter
--- OUTSIDE RECORDS SUMMARY | 2025-02-17 06:25 | XMS_ITS | Encounter Summary ---
Author Organization [employer] Address [address] [place] [address] 7 [place] [address] Care Team Providers Care Sales Performance Analyst Name Role Phone Agustin Marrero MD Primary Care Provide r Reason for Visit * Reason Onset Date Comments Med Refill 03/01/2024 Encounter Details Date Type Department Care Team ([facility] Contact Info) Description 03/01/2024 Telephone [facility] MED[facility] [address] [place], [place] [phone] Agustin Marrero MD [address] [place], [place] [phone] Med Refill Social History Tobacco Use Types [...] PM EST Received fax from [facility] requesting script clarification need directions. * Telephone Encounter - Manjeet Mclaughlin - 03/01/2024 2:21 PM EST TC from pt requesting medication refill. Medications needing refill : traMADol (Ultram) 50 MG table To be sent to: [facility]/pharmacy #[id number] documented in this encounter Plan of Treatment Upcoming Encounters Date Type Department Care Team ([facility] Contact Info) Description 02/23/2025 10:00 AM EST Office Visit [facility] MEDICINE [address] [place] [phone] Agustin Marrero MD [address] [place] [address] 03/24/2025 9:00 AM EST Clinical Support [facility] [address] [place] [phone] Shwetha Collado RN [address] [place] [address] 05/31/2025 8:00 AM EST Office Visit [facility] ADULT DENTAL [address] [place] [address] Matty Antonioaris [address] [place] [address] documented as of this encounter Visit Diagnoses Not on filedocumented in this encounter Additional Health Concerns Assessment Noted Time PHQ-9 Depression Total Score: 0 12/03/19 10:31 AM EDT documented as of this encounter Care Teams Sales Performance Analyst Relationship Specialty Start Date End Date Agustin Marrero MD [address] [place] [address] PCP - General Internal Medicine 01/25/14 [facility] 06/13/16 documented as of this encounter
--- OUTSIDE RECORDS SUMMARY | 2025-02-17 06:25 | XMS_ITS | Clinical Summary ---
Author Organization [employer] Address [address] [place] [address] 7t [place] [address] Care Team Providers Care Hyperbaric Nurse Name Role Phone Agustin Marrero MD Primary Care Provide r Allergies No known active allergies Medications Blood Glucose Monitoring Suppl ([employer]Style Provo Lite) w/Device kit TEST 1 TIMES BY INTRADERMAL ROUTE EVERY DAY Active Continuous Blood Gluc Mannequin Sander And Finisher (FreeStyle Arvin 2 [place]) device Active ferrous sulfate 325 (65 Fe) [...] TODOS LOS D CON LA AUDIE Active sodium polystyrene sulfonate (Kayexalate) powder TAKE [...] complication, with long-term current use of insulin ([facility]) USE 1 EACH DIRECTED THREE TIMES EVERY [...] IN 24 HOURS. 15 tablet 024 Active tacrolimus (Prograf) 1 MG capsule [...] stripIndications: Type 2 diabetes mellitus without complications ([facility]) USE TO TEST BLOOD SUGAR THREE TIMES DAILY 300 strip 3 025 Active cholecalciferol (Vitamin D3) 25 MCG (1000 UT) tabletIndications :Type 2 diabetes mellitus without complication, with long-term current use of insulin ([facility]) TOME 1 TABLETA POR VIA ORAL TODOS LOS QUINONES 90 tablet 1 025 Active traMADol (Ultram) 50 MG tabletIndications :Chronic midline low back pain without sciatica TAKE 1 TABLET (50 MG) BY MOUTH EVERY 8 (EIGHT) HOURS IF NEEDED FOR SEVERE PAIN. 84 tablet 025 Active sildenafil (Viagra) 100 [...] >400 20 units 15 mL 025 Active gabapentin (Neurontin) 300 MG capsuleIndication s:Chronic midline low back pain without sciatica TAKE 1 CAPSULE BY MOUTH TWICE A DAY 60 capsule 025 Active traMADol (Ultram) 50 MG tabletIndications :Chronic midline low back pain without sciatica TAKE 1 TABLET (50 MG) BY MOUTH EVERY 8 (EIGHT) HOURS IF NEEDED FOR SEVERE PAIN. 84 tablet 025 Active zolpidem (Ambien) 10 MG tabletIndications :Primary insomnia TAKE 1 TABLET BY MOUTH AT BEDTIME NEEDED 30 tablet 025 Active Continuous Glucose Sensor (FreeStyle Arvin 2 Sensor) miscIndications:T ype 2 diabetes mellitus without complication, with long-term current use of insulin ([facility]) USE DIRECTED EVERY 14 DAYS 2 each 2 025 Active Continuous Glucose Sensor (FreeStyle Arvin 2 Sensor) miscIndications:T ype 2 diabetes mellitus without complication, with long-term current use of insulin ([facility]) USE DIRECTED EVERY 14 DAYS 2 each 2 024 2024 Discontinued traMADol (Ultram) 50 MG tabletIndications :Chronic midline low back pain without sciatica Take 1 tablet (50 mg) by mouth every 8 (eight) hours if needed for severe pain. 84 tablet 025 2024 Discontinued gabapentin (Neurontin) 300 MG capsuleIndication s:Chronic midline low back pain without sciatica TAKE 1 CAPSULE BY MOUTH TWICE A DAY 60 capsule 025 2024 Discontinued zolpidem (Ambien) 10 MG tabletIndications :Primary insomnia TAKE 1 TABLET BY MOUTH AT BEDTIME NEEDED 30 tablet 025 2024 Discontinued Active Problems [...] midline low back pain without sciatica Last LPN CARE MANAGER Agreement: 09/01/23 Normal oral exam 12/17/2023 [...] for mildly dilated CBD. ERCP 11/21/2022 at [facility] showed single severe biliary stricture found [...] CBD. 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 The stricture was post-surgical. A biliary sphinterotomy was performed. A temporary stent was placed in the CBP They recommended to repeat ERCP in 3 months to remove stent. Pt is already scheduled for 02/20/2023 for ENDOSCOPIC RETROGRADE CHOLANGIOPANCREATOGRAPHY WITH REMOVAL OF FOREIGN BODY(S)/STENT(S)/PANCREATIC DUCT(S) WITH POSSIBLE MODERATE SEDATION [73837 (CPT )] Partial edentulism 01/14/2023 Hospital discharge [...] CBD. Pt is s/p ERCP 11/21/2022 at [facility] Impression: A single severe biliary stricture [...] local wound injections. He was seen by plant technical specialist at [facility] who discussed that he needed someone [...] local wound injections. He was seen by plant technical specialist at [facility] who discussed that he needed someone [...] was refer to the Pain Clinic at [facility] he has an appointment for 08/03/2022. [...] >400 20 units He was discharged from [facility] diabetes clinic due to non compliance. He isunder the care of [facility] given that he is a liver transplant patient, last seen 2024. Hgb A1c 07/05/2024: 7.2 from 7 Eye exam ordered previous visit Microalbumin 04/06/2024 was 68 Foot check risk of zero Pt advised to: adhere to diabetic diet Previous visit pt was referred to Network Operations Technician and DE Plan: continue current regimen Pt [...] >400 20 units He was discharged from [facility] diabetes clinic due to non compliance. He isunder the care of [facility] given that he is a liver transplant patient, last seen 2024. Hgb A1c 04/05/2024: 7 from 7.4 Eye exam ordered previous visit Microalbumin 11/01/2020 was 43 , ordered today Foot check risk of zero Pt advised to: adhere to diabetic diet Previous visit pt was referred to Network Operations Technician and DE Plan: continue current regimen Pt [...] >400 20 units He was discharged from [facility] diabetes clinic due to non compliance. He isunder the care of [facility] Endocr[facility] given that he is a liver transplant patient, last seen 04/21/2023. Hgb A1c 12/03/2023: 7.4 from 7.1 Eye exam ordered previous visit Microalbumin 11/01/2020 was 43 Foot check risk of zero Pt advised to: adhere to diabetic diet Previous visit pt was referred to Network Operations Technician and DE Plan: continue current regimen Pt [...] >400 20 units He was discharged from [facility] diabetes clinic due to non compliance. He isunder the care of [facility] Endocr[facility] given that he is a liver transplant patient, last seen 04/21/2023. Hgb A1c 06/16/2023: 7.1 Eye exam ordered previous visit Microalbumin 11/01/2020 was 43 Foot check risk of zero Pt advised to: adhere to diabetic diet Previous visit pt was referred to Network Operations Technician and DE Plan: continue current regimen Pt [...] >400 20 units He was discharged from [facility] diabetes clinic due to non compliance. He is supposed to be under the care of [facility] Endocrinology given that he is a liver transplant patient, last seen 08/01/2021. He had an appointment scheduled in August but he no showed. Today he tells me he will stay at [facility] Hgb A1c 02/12/2023 was 6.7 Eye exam ordered previous visit Microalbumin 11/01/2020 was 43 Foot check risk of zero Pt advised to: adhere to diabetic diet Previous visit pt was referred to Network Operations Technician and DE Plan: continue current regimen Pt [...] >400 20 units He was discharged from [facility] diabetes clinic due to non compliance. He is supposed to be under the care of [facility] Endocrinology given that he is a liver transplant patient, last seen 08/01/2021. He had an appointment scheduled in August but he no showed. Today he tells me he will stay at [facility] Hgb A1c 09/02/2021 was 6.5 Eye exam ordered previous visit Microalbumin 11/01/2020 was 43 Foot check risk of zero Pt advised to: adhere to diabetic diet Previous visit pt was referred to Network Operations Technician and DE Plan: continue current regimen check [...] >400 20 units He was discharged from [facility] diabetes clinic due to non compliance He is now under the care of [facility] Endocr[facility]ology given that he is a liver transplant patient, last seen 08/01/2021 Hgb A1c 09/02/2021 was 6.5 Eye exam ordered previous visit Microalbumin 11/01/2020 was 43 Foot check risk of zero Pt advised to: adhere to diabetic diet Previous visit pt was referred to Network Operations Technician and DE Plan: continue current regimen check [...] >400 20 units He was discharged from [facility] diabetes clinic due to non compliance He is now under the care of [facility] Endocrinology given that he is a liver transplant patient, last seen 08/01/2021 Hgb A1c 04/22/2021 was 6.2 Eye exam ordered previous visit Microalbumin 11/01/2020 was 43 Foot check risk of zero Pt advised to: adhere to diabetic diet Previous visit pt was referred to Network Operations Technician and DE Plan: continue current regimen check [...] the care of the liver clinic at [facility], last seen 08/01/2024 Dr Richardson Assessment & Plan (07/05/2024 10:05 AM EDT): Under the care of the liver clinic at [facility] Assessment & Plan (06/16/2023 9:29 AM EST): Under the care of the liver clinic at [facility] Assessment & Plan (04/22/2022 8:26 AM EST): Pt here for a f/u 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 was found to have elevated LFT's (AP/AST/ALT 710/141/254) during routine outpatient blood work 05/01/2020 and was referred to [facility] where his LFT's were 608/77/177 [...] Encounters Date Type Department Care Team Description 02/16/2025 Patient Outreach [facility] [address] [place] [address] Agustin Marrero MD Pre-visit Planning (SDOH was already completed) 02/14/2025 Refill [facility] [address] [place] [address] Agustin Marrero MD Type 2 diabetes mellitus without complication, with long-term current use of insulin (HCC) 02/09/2025 Telephone [facility] [address] [place] [address] Agustin Marrero MD order 02/03/2025 Refill [facility] [address] [facility] [place] [address] Agustin Marrero MD Primary insomnia 01/28/2025 Refill [facility] [address] [facility] [place] [address] Lela Wu MD Chronic midline low back pain without sciatica 01/19/2025 Refill [facility] [address] [facility] [place] [address] Agustin Marrero MD Chronic midline low back pain without sciatica 01/18/2025 Telephone [facility] [address] [facility] [place] [address] Agustin Marrero MD 01/17/2025 Telephone [facility] [address] [facility] [place] [address] Agustin Marrero MD 01/13/2025 Refill [facility] [address] [facility] [place] [address] Agustin Marrero MD Type 2 diabetes mellitus without complication, with long-term current use of insulin ([facility]) 01/06/2025 11:30 AM EDT Clinical Support [facility] [address] [facility] [place] [address] Shwetha Collado RN Chronic right-sided thoracic back pain (Primary Dx) 01/06/2025 Refill [facility] P[facility] [address] [place] [address] Shwetha Collado, KATALINA 01/06/2025 Travel 01/01/2025 Refill [facility] [address] [facility] [place] [address] Agustin Marrero MD Gastroesophageal reflux disease, unspecified whether esophagitis present 12/27/2024 Refill [facility] [address] [facility] [place] [place] [address] Lela uW MD Primary insomnia 12/23/2024 Orders Only [facility] External Provider, [facility] 12/20/2024 Refill [facility] [address] [facility] [place] [address] Agustin Marrero MD Chronic midline low back pain without sciatica 12/16/2024 Telephone [facility] [address] [facility] [place] [place] [address] Agustin Marrero MD Appointment 12/13/2024 Telephone [facility] [address] [facility] [place] [address] Agustin Marrero MD fyi 12/10/2024 Refill [facility] [address] [facility] [place] [address] Agustin Marrero MD 12/05/2024 Refill [facility] [address] [facility] [place] [address] Agustin Marrero MD Primary insomnia; Chronic midline low back pain without sciatica 12/05/2024 Refill [facility] [address] [facility] [place] [address] Agustin Marrero MD Chronic midline low back pain without sciatica 11/18/2024 Travel 11/18/2024 Telephone [facility] [address] [place], [place] [phone] Shwetha Collado, RN LPN CARE MANAGER 11/17/2024 Results Follow-Up [facility] [address] [facility] [place] [address] Agustin Marrero MD POCT Glucose, POCT HGB A1C, TSH with Reflex to Free T4, Additional followed-up results: 6 from Last 3 Months Immunizations Immunization Administration [...] Description 02/23/2025 10:00 AM EST Office Visit [facility] [address] [place] [address] Agustin Marrero MD [address] [place] [address] 03/24/2025 9:00 AM EST Clinical Support [facility] [address] [place] [address] Shwetha Collado RN [address] [place] [address] 05/31/2025 8:00 AM EST Office Visit [facility] AD[facility] D[facility] [address] [place] [address] Catherine Antonio [address] [place] [address] Health Maintenance Due Date Last Done Comments [...] TOMOSYNTHESIS BILATERAL Routine 12/23/2024 1:50 PM EDT PROPHYLAXIS - ADULT Routine 11/16/2024 1 0:00 AM EDT Dental calculus Dental plaque Generalized gingival recession Chronic periodontal disease POCT GLYCATED HEMOGLOBIN, TOTAL Routine 11/01/2024 9:41 AM EDT Type 2 diabetes mellitus without complication, with long-term current use of insulin ([facility]) PERIODIC ORAL EVALUATION - ESTABLISHED PATIENT Routine 05/17/2024 10:00 AM EST ALBUMIN, RANDOM URINE W/CREATININE Routine 04/06/2024 8:10 AM EST Type 2 diabetes mellitus without complication, with long-term current use of insulin ([facility]) LIPID PANEL, STANDARD Routine 04/06/2024 8:10 AM EST Type 2 diabetes mellitus without complication, with long-term current use of insulin ([facility]) BITEWINGS - 4 RADIOGRAPHIC IMAGES Routine 10/13/2023 11:00 AM EDT HM COLONOSCOPY Routine 06/28/2021 from Last 3 Months or Most Recently Relevant to Health Maintenance Results * US Scrotum (01/06/2025 12:43 PM EDT) Anatomical Region Laterality Modality Body Ultrasound 01/06/2025 12:4 3 PM EDT Narrative 01/06/2025 12:44 PM EDT [address] [address] Ultrasound Report Signed Patient: Edward Jon MR#: [id number] : 1965 Acct:[id number] Age/Sex: 60 / M ADM Date: 01/05/25 Loc: HO.US Attending Dr: Agustin Mix MD Ordering Physician: Agustin Mix MD Date of Service: 01/05/25 Procedure(s): US scrotum Accession Number(s): [id number] cc: Agustin Mix MD Reason for Exam: [...] 01/06/25 1243 DD/ 1243 TD/TT: 01/06/25 1243 Frame Maker: Procedure Note Donotuseinterpreter, Image - 01/06/[address] [address] Ultrasound Report Signed Patient: Jose Armando Jon#: [id number] : 1965Acct:[id number] Age/Sex: 60 / MADM Date: 01/05/25 Loc: .US Attending Dr: Agustin Mix MD Ordering Physician: Agustin Mix MD Date of Service: 01/05/25 Procedure(s): US scrotum Accession Number(s): [id number] cc: Agustin Mix MD Reason for Exam: [...] 01/06/25 1243 DD/ 1243 TD/TT: 01/06/25 1243 Frame Maker: us Agustin Connelly MD IMG US PROCEDURES [...] - 01/06/2025 11:48 AM EDT .UTOX cup Lot#[id number] Exp. 01/24/26 Internal Pass Control Agustin Connelly MD POINT OF CARE TEST EN TER/EDIT ORDERABLES Final Result * BI Mammogram Diagnostic Tomosynthesis Bilateral (12/23/2024 1:50 PM EDT) Anatomical Region Laterality Modality Breast Bilateral Mammography 12/23/2024 1:50 PM EDT Narrative 12/23/2024 4:47 PM EDT [address] [place] [address] Mammography Report Signed Patient: Edward Jon MR#: [id number] : 1965 Acct:[id number] Age/Sex: 59 / M ADM Date: 12/23/24 Loc: HO.MAMMO Attending Dr: Freddy Sunshine MD Ordering Physician: Freddy Sunshine MD Results: 2Beni gn Findings Date of Service: 12/23/24 Follow Up: 1 Year From [facility] Mammogram Procedure(s): MM tomosynthesis diagnostic BI Accession Number(s): [id number] cc: Freddy Sunshine MD; Agustin Mix MD [...] 12/23/24 1644 DD/ 1350 TD/TT: 12/23/24 1350 Frame Maker: Procedure Note Donotuseinterpreter, Image - [facility]23[facility] [address] [place] [address] Mammography Report Signed Patient: Edward JonMR#: [id number] : 1965Acct:[id number] Age/Sex: 59 / MADM Date: 12/23/24 Loc: HO.MAMMO Attending Dr: Freddy Sunshine MD Ordering Physician: Freddy Sunshine MDResults: 2Beni gn Findings Date of Service: 12/23/24Follow Up: 1 Year From [facility] Mammogram Procedure(s): MM tomosynthesis diagnostic BI Accession Number(s): [id number] cc: Freddy Sunshine MD; Agustin Mix MD [...] MD 12/23/2024 04:44 PM EDT RP Workstation: [employer] Dictated By: Sandra Robertson MD Signed By: <Electronically signed by Sandra Robertson MD in OV> 12/23/24 1644 DD/ 1350 TD/TT: 12/23/24 1350 Frame Maker: [facility] External Provider IMG BI PROCEDURES Final Result * (ABNORMAL) POCT HGB A1C (11/01/2024 9:41 AM EDT) Hemoglobin A1C 7.3(A) 4.0 - 5.7 % QC Media Lot # [id number] Lot# Expiration Date [id number] Blood 11/01/2024 9:41 AM EDT Agustin Connelly MD POINT OF CARE TEST EN TER/EDIT ORDERABLES Final Result * (ABNORMAL) Albumin, Random Urine W/Creatinine (04/06/2024 8:10 AM EST) Creatinine, Urine 216.22 mg/dL [facility] Microalbumin Urine 68.0 mg/L H [facility] Microalbum Creatinine Ratio Ur 31.4(H) <30 ug/mg cr [facility] Comment:Albumin/Creatinine R atio Reference Ranges: Normal: < 30 ug/mg creatinine Microalbuminuria: 30 - 300 ug/mg creatinineClinical Albuminuria: > 300 ug/mg creatinine Urine (Urine, Random) 04/06/2024 8:10 AM EST 04/06/2024 11:40 AM EST Agustin Connelly MD LAB URINE ORDERABLES Final Result Performing Organization Address [facility] Co de Phone Number [facility] [address] [place] [phone] * (ABNORMAL) Lipid Panel, Standard (04/06/2024 8:10 AM EST) Triglycerides 109 <150 mg/dL [facility] Comment:Desirable Triglyceri de: less than 150 mg/dLBorderline High Triglyceride 150-199 mg/dLHigh Triglyceride: 200-499 mg/dLVery High Triglyceride: greater than or equal to 5OO mg/dL Cholesterol 177 <200 mg/dL [facility] Comment:Desirable Cholestero l: less than 200 mg/dLBorderline High Cholesterol: 200-239 mg/dLHigh Cholesterol: greater than 239 mg/dL LDL Cholesterol Calculated 115(H) <100 mg/dL [facility] Comment:Desirable LDL: less than 100 mg/dLNear Optimal/Above Optimal LDL: 110- 129 mg/dLBorderline High LDL: 130-159 mg/dLHigh LDL: 160-189 mg/dLVery High LDL: greater than or equal to 190 mg/dL HDL Cholesterol 41 >40 mg/dL [facility] Comment:Desirable HDL: great er than 40 mg/dL Note: This HDL assay may give artificially low results in patients with liver disease. Blood Venous blood specimen / Unknown 04/06/2024 8:10 AM EST 04/06/2024 11:51 AM EST Agustin Connelly MD LAB BLOOD ORDERABLES Final Result Performing Organization Address [facility]/ZIP Co de Phone Number [facility] [address] [place] [address] [phone] * Hm Colonoscopy (06/28/2021) Colonoscopy Normal Normal 06/28/2021 Shanel Chen - 06/28/2021 9:58 AM EST Recommended 3 year follow up per GI notes ( [facility] [place] us Historical Provider HEALTH MAINTENANCE Edited Result - Final from Last 3 Months or Most Recently Relevant to Health Maintenance Insurance [address] [place] [address] [facility] [address] [place] [id number] [facility] * Guarantor: Edward Gonzalez Account Type Relation to Patient Date of Phone Billing Address Personal/Family Self [address] [place] [address] Care Teams Hyperbaric Nurse Relationship Specialty Start Date End Date Agustin Marrero MD [address] [place] [address] [place] [address] PCP - General Internal Medicine 01/25/14 [facility] 06/13/16
--- OUTSIDE RECORDS SUMMARY | 2025-02-17 06:25 | XMS_ITS | Encounter Summary ---
Author Organization [employer] Address [address] [place] [address] 7t [place] [address] Care Team Providers Care Photographer Assistant Name Role Phone Agustin Marrero MD Primary Care Provide r Reason for Visit * Reason Comments Med Refill Encounter Details Date Type Department Care Team ([facility] st Contact Info) Description 12/24/2023 Refill [facility] MEDICINE [address] [place], [place] [phone] Agutsin Marrero MD 230 [place], [place] [phone] Chronic midline low back pain without sciatica [...] Description 02/23/2025 10:00 AM EST Office Visit [facility] MEDICINE [address] [place] [address] Agustin Marrero MD [address] [place] [address] 03/24/2025 9:00 AM EST Clinical Support [facility] [address] [place] [address] Shwetha Collado, RN 505 [place] [address] 05/31/2025 8:00 AM EST Office Visit [facility] ADULT DENTAL 230 [place] [address] Catherine Antonio 230 [place] [address] documented as of this encounter Visit Diagnoses Diagnosis Chronic midline low back pain without sciatica documented in this encounter Additional Health Concerns Assessment Noted Time PHQ-9 Depression Total Score: 0 12/03/19 24 10:31 AM EDT documented as of this encounter Care Teams Photographer Assistant Relationship Specialty Start Date End Date Agustin Marrero MD [address] [place] [address] PCP - General Internal Medicine 01/25/14 [facility] 06/13/16 documented as of this encounter
--- OUTSIDE RECORDS SUMMARY | 2025-02-17 06:25 | XMS_ITS | Encounter Summary ---
Author Organization [employer] Address [address] [place] [address] 7t [place] [address] Care Team Providers Care Liberal Arts Teacher Name Role Phone Agustin Marrero MD Primary Care Provide r Reason for Visit * Reason Comments Med Refill Encounter Details Date Type Department Care Team ([facility] st Contact Info) Description 2024 Refill [facility] MEDICINE 230 [place], [place] [phone] Agustin Marrero MD 230 [place] [address] Social History Tobacco Use Types Packs/Day Years [...] EST Office Visit [facility] MEDICINE [address] [place] [address] Agustin Marrero MD 230 [place] [address] 03/24/2025 9:00 AM EST Clinical Support [facility] MEDICINE [address] [place] [address] Shwetha Collado, RN 505 [place] [address] 05/31/2025 8:00 AM EST Office Visit [facility] ADULT DENTAL [address] [place] [address] Catherine Antonio 230 [place] [address] documented as of this encounter Visit Diagnoses Not on filedocumented in this encounter Additional Health Concerns Assessment Noted Time PHQ-9 Depression Total Score: 0 12/03/19 24 10:31 AM EDT documented as of this encounter Care Teams Liberal Arts Teacher Relationship Specialty Start Date End Date Agustin Marrero MD [address] [place] [address] PCP - General Internal Medicine 01/25/14 [facility] 06/13/16 documented as of this encounter
--- OUTSIDE RECORDS SUMMARY | 2025-02-17 06:25 | XMS_ITS | Encounter Summary ---
Author Organization [employer] Address [address] [place] [address] 7t [place] [address] Care Team Providers Care Appeals Reviewer Veteran Name Role Phone Agustin Marrero MD Primary Care Provide r Encounter Details Date Type Department Care Team ([facility] st Contact Info) Description 12/24/2023 Telephone [facility] MEDICINE 230 [place], [place] [phone] Agustin Marrero MD 230 [place], [place] [phone] Social History Tobacco Use Types Packs/Day Years [...] Description 02/23/2025 10:00 AM EST Office Visit [facility] MEDICINE [address] [place] [address] Agustin Marrero MD [address] [place] [address] 03/24/2025 9:00 AM EST Clinical Support [facility] MEDICINE [address] [place] [address] Shwetha Collado, RN 505 [place] [address] 05/31/2025 8:00 AM EST Office Visit [facility] ADULT DENTAL [address] [place] [address] Paco, Catherine 230 [place] [address] documented as of this encounter Visit Diagnoses Not on filedocumented in this encounter Additional Health Concerns Assessment Noted Time PHQ-9 Depression Total Score: 0 12/03/19 24 10:31 AM EDT documented as of this encounter Care Teams Appeals Reviewer Veteran Relationship Specialty Start Date End Date Agustin Marrero MD [address] [place] [address] PCP - General Internal Medicine 01/25/14 [facility] 06/13/16 documented as of this encounter
--- OUTSIDE RECORDS SUMMARY | 2025-02-17 06:25 | XMS_ITS | Encounter Summary ---
Author Organization [employer] Address [address] [place] [address] 7t [place] [address] Care Team Providers Care Retrieval Specialist Name Role Phone Agustin Marrero MD Primary Care Provide r Reason for Visit * Reason Comments Med Refill Encounter Details Date Type Department Care Team ([facility] st Contact Info) Description 11/02/2023 Refill [facility] MEDICINE 230 [place], [place] [phone] Lela Wu MD 230 [place], [place] [phone] Primary insomnia Social History Tobacco Use Types [...] Office Visit [facility] MEDICINE [address] [place] [address] Agustin Marrero MD [address] [place] [address] 03/24/2025 9:00 AM EST Clinical Support [facility] MEDICINE [address] [place] [address] Shwetha Collado RN 505 [place] [address] 05/31/2025 8:00 AM EST Office Visit [facility] ADULT DENTAL [address] [place] [address] Catherine Antonio [address] [place] [address] documented as of this encounter Visit Diagnoses Diagnosis Primary insomnia Persistent disorder of initiating or maintaining sleep documented in this encounter Additional Health Concerns Assessment Noted Time PHQ-9 Depression Total Score: 5 06/16/19 24 9:35 AM EST documented as of this encounter Care Teams Retrieval Specialist Relationship Specialty Start Date End Date Agustin Marrero MD [address] [place] [address] PCP - General Internal Medicine 01/25/14 [facility] 06/13/16 documented as of this encounter
--- OUTSIDE RECORDS SUMMARY | 2025-02-17 06:26 | XMS_ITS | Encounter Summary ---
Author Organization [facility] Address [address] [place] [address] Care Team Providers Care Compressor Operator Portable Name Role Phone Agustin Mix Primary Care Provider + Encounter Details Date Type Department Care Team (Late st Contact Info) Description 01/01/2021 Orders Only [facility] Nuclear Medicine 55 [place] [address] Sreedhar Sotelo MD 55 [place], [place] [phone] Social History Tobacco Use Types Packs/Day Years [...] Care Team (Late st Contact Info) Description 03/27/2025 10:30 AM EST Follow-Up [facility] Liver Transplant Services 55 [place], [place] [phone] Dylan Phelps MD [address] [place] [address] documented as of this encounter Visit Diagnoses Not on filedocumented in this encounter Care Teams Compressor Operator Portable Relationship Specialty Start Date End Date Agustin Mix 230 [place] [address] PCP - General Internal Medicine 04/15/17 documented as of this encounter
--- OUTSIDE RECORDS SUMMARY | 2025-02-17 06:26 | XMS_ITS | Encounter Summary ---
Author Organization [facility] Address [address] [place] [address] Care Team Providers Care Measuring Machine Operator Name Role Phone Agustin Mix Primary Care Provider + Encounter Details Date Type Department Care Team (Late st Contact Info) Description 01/21/2017 Transplant Conversio n Encounter [facility] Health Information Management 55 [place] [address] Provider, Historical [facility] Social History Tobacco Use Types Packs/Day [...] Info) Description 03/27/2025 10:30 AM EST Follow-Up [facility] Liver Transplant Services 55 [place] [address] Dylan Phelps MD 55 [place] [address] documented as of this encounter Visit Diagnoses Not on filedocumented in this encounter Additional Health Concerns Infection Onset Date Last Indicated Resolved Time 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 + BC at [facility] > 6 months ago - can D/C contact isolation 01/20/2019 02/10/2019 08/10/2019 9:27 AM E DT COVID-19 - Suspected infection 03/05/2020 03/17/2020 03/17/2020 7:55 PM EST COVID-19 - Confirmed infection 05/01/2020 05/07/2020 06/01/2020 5:06 PM EST COVID-19 - Suspected infection 05/10/2020 05/10/2020 05/24/2020 10:34 PM EST documented as of this encounter Care Teams Measuring Machine Operator Relationship Specialty Start Date End Date Agustin Mix [address] [place] [address] PCP - General Internal Medicine 04/15/17 documented as of this encounter
--- OUTSIDE RECORDS SUMMARY | 2025-02-17 06:26 | XMS_ITS | Patient Health Record ---
Author Organization [facility] Address [address] [facility] [place] [address] Care Team Providers Care Assistant Producer Name Role Phone Nura Connelly MD, Agustin Primary Care Provide r Unavailable Sun Jj Unavailable [phone] Yovanny Long Unavailable [phone] Allergies No Known Allergies Results Component Value [...] MG as directed Orally Active Vitamin D3 122585 UNIT/GM as directed Active Tacrolimus 1 MG [...] Problem Acquired hammer toe of right foot (4844726539860970 ) Other hammer toe(s) (acquired), right foot (M20.41) Active confirmed Problem Acquired hammer toe of left foot (3293003540665858 ) Other hammer toe(s) (acquired), left foot (M20.42) Active confirmed Problem Polyneuropathy due to type 2 diabetes mellitus (532814812) Type 2 diabetes mellitus with diabetic polyneuropathy (E11.42) Active confirmed Vital Signs Heart Rate 68 /min 06/17/2024 Blood pressure diastolic 81 mm Hg 01/12/2025 Height 5ft 7in in 01/12/2025 Blood pressure systolic 134 mm Hg 01/12/2025 Weight 205 lbs 01/12/2025 BMI 32.1 kg/m2 01/12/2025 Procedures Procedure Date Ordered Date Performed Result Body Sit e 46635-KHECRGB NAIL, 6 OR MORE 03/10/2024 N/A [id number] NAIL, 6 OR MORE 06/17/2024 N/A Encounters Encounter Location Date Provider Diagnosis [address] [address] 03/10/2024 Yovanny Long Onychomycosis B35.1 ; Xerosis of skin L85.3 ; Pain in right toe(s) M79.674 and Pain in left toe(s) M79.[address] [facility] [address] 06/17/2024 Yovanny Long Onychomycosis B35.1 and Type 2 diabetes mellitus with other diabetic neurological complication E11.[facility] [address] 11/03/2024 Sun Jj Type 2 diabetes mellitus with diabetic polyneuropathy E11.42 ; Other hammer toe(s) (acquired), right foot M20.41 ; Tinea unguium B35.1 ; Tinea pedis of both feet B35.3 and Other hammer toe(s) (acquired), left foot M20.[address] [address] 01/12/2025 Sun Jj Other hammer toe(s) (acquired), right foot M20.41 ; Tinea pedis of both feet B35.3 ; Type 2 diabetes mellitus with diabetic polyneuropathy E11.42 ; Tinea unguium B35.1 and Other hammer toe(s) (acquired), left foot M20.[address] [address] 03/10/2024 [facility] [address] [facility] [address] 11/03/2024 Sun Jj Assessments Encounter Date Diagnosis (ICD Code) Assessment Notes Treatment Notes Treatment Clinical Notes Section Notes 03/10/2024 Xerosis of skin (ICD-10 - L85.3) Application of [place]-Soothe skin lotion to his feet 03/10/2024 Onychomycosis [...] M20.42) 05/26/2024 Other 06/17/2024 Other Application of [place]-Soothe skin lotion to his feet Plan Of Treatment Pending Test Test Name Order Date [id number] NAIL, 6 OR MORE 03/10/2024 [id number] NAIL, 6 OR MORE 06/17/2024 Next Appt Details Provider Name:Sun kenney, 03/23/2025 10:00:00 AM, [address] [facility], [place], [address], Insurance Providers Payer Name Payer Address Payer Phone Subscriber Number Group Number Insured Name Patient Relationship to Insured Coverage Start Date Coverage End Date [facility] [employer] Claims [address] [place] Dior [id number] Edward Jon Self - patient is the insured Medical (General) History Medical History History ICD Code Back,Hip,and Knee pain Broken bones Cataracts covid-19 Dementia Depression Diabetic Gall bladder problems Hiatal hernia High Blood Pressure Liver disease Psychiatric disorder Surgical History Surgery Date(Month/Year) back surgery 02/2024
--- OUTSIDE RECORDS SUMMARY | 2025-02-17 06:26 | XMS_ITS | Encounter Summary ---
Author Organization [employer] Address [address] [place] [address] [address] [address] Care Team Providers Care Director Of Corporate Communications Name Role Phone Agustin Marrero MD Primary Care Provide r Encounter Details Date Type Department Care Team (Latest Contact Info) Description 07/16/2020 Abstract [facility] CONVERSIONS Dental, Provider, DDS Social History [...] Description 02/23/2025 10:00 AM EST Office Visit [facility] MEDICINE [address] [place] [address] Agustin Marrero MD 230 [place] [address] 03/24/2025 9:00 AM EST Clinical Support [facility] MEDICINE [address] [place] [address] Shwetha Collado RN 505 [place] [address] 05/31/2025 8:00 AM EST Office Visit [facility] ADULT DENTAL 230 [place] [address] Catherine Antonio 230 [place] [address] documented as of this encounter Visit Diagnoses Not on filedocumented in this encounter Care Teams Director Of Corporate Communications Relationship Specialty Start Date End Date Agustin Marrero MD 230 [place] [address] PCP - General Internal Medicine 01/25/14 [facility] 06/13/16 documented as of this encounter
--- OUTSIDE RECORDS SUMMARY | 2025-02-17 06:26 | XMS_ITS | Encounter Summary ---
Author Organization [employer] Address [address] [place] [address] 7 [place] [address] Care Team Providers Care Coffee Blender Name Role Phone Agustin Marrero MD Primary Care Provide r Reason for Visit * Reason Onset Date Comments Med Refill 10/04/2024 Encounter Details Date Type Department Care Team ([facility] st Contact Info) Description 10/04/2024 Telephone [facility] MEDICINE 230 [place], [place] [phone] Agustin Marrero MD 230 [place], [place] [phone] Med Refill Social History Tobacco Use Types [...] 10 MG tablet To be sent to: [facility]/pharmacy #[id number] [place] [address] documented in this encounter Plan of Treatment Upcoming Encounters Date Type Department Care Team (Late st Contact Info) Description 02/23/2025 10:00 AM EST Office Visit [facility] MEDICINE [address] [place] [address] Agustin Marrero MD [address] [place] [address] 03/24/2025 9:00 AM EST Clinical Support [facility] MEDICINE [address] [place] [address] Shwetha Collado, KATALINA [address] [place] [address] 05/31/2025 8:00 AM EST Office Visit [facility] ADULT DENTAL 230 [place] [address] Catherine Antonio [address] [place] [address] documented as of this encounter Visit Diagnoses Not on filedocumented in this encounter Additional Health Concerns Assessment Noted Time PHQ-9 Depression Total Score: 0 12/03/19 10:31 AM EDT documented as of this encounter Care Teams Coffee Blender Relationship Specialty Start Date End Date Agustin Marrero MD 230 [place] [address] PCP - General Internal Medicine 01/25/14 [facility] 06/13/16 documented as of this encounter
--- OUTSIDE RECORDS SUMMARY | 2025-02-17 06:26 | XMS_ITS | Encounter Summary ---
Author Organization [employer] Address [address] [place] [address] 7t [place] [address] Care Team Providers Care Bait Painter Name Role Phone Agustin Marrero MD Primary Care Provide r Reason for Visit * Reason Comments Med Refill Encounter Details Date Type Department Care Team (Late st Contact Info) Description 05/14/2022 Refill [facility] MEDICINE 230 [place], [place] [phone] Agustin Marrero MD 230 [place] [address] Chronic midline low back pain without sciatica [...] Description 02/23/2025 10:00 AM EST Office Visit [facility] MEDICINE [address] [place] [address] Agustin Marrero MD 230 [place] [address] 03/24/2025 9:00 AM EST Clinical Support [facility] MEDICINE [address] [place] [address] Shwetha Collado, KATALINA 505 [place] [address] 05/31/2025 8:00 AM EST Office Visit [facility] ADULT DENTAL [address] [place] [address] Catherine Antonio [address] [place] [address] documented as of this encounter Visit Diagnoses Diagnosis Chronic midline low back pain without sciatica documented in this encounter Care Teams Bait Painter Relationship Specialty Start Date End Date Agustin Marrero MD 230 [place] [address] PCP - General Internal Medicine 01/25/14 [facility] 06/13/16 documented as of this encounter
--- OUTSIDE RECORDS SUMMARY | 2025-02-17 06:26 | XMS_ITS | Encounter Summary ---
Author Organization [employer] Address [address] [place] [address] 7 [place] [address] Care Team Providers Care Director Phone Name Role Phone Agustin Marrero MD Primary Care Provide r Reason for Visit * Reason Comments Med Refill Encounter Details Date Type Department Care Team (Late Contact Info) Description 09/04/2022 Refill [facility] MEDICINE 230 [place] [address] Agustin Marrero MD 230 [place] [address] Social History Tobacco Use Types Packs/Day Years [...] Upcoming Encounters Date Type Department Care Team ([facility] Contact Info) Description 02/23/2025 10:00 AM EST Office Visit [facility] MEDICINE [address] [place] [address] Agustin Marrero MD 230 [facility] [place] [address] 03/24/2025 9:00 AM EST Clinical Support [facility] MEDICINE 230 [place] [address] Shwetha Collado, KATALINA 505 [place] [address] 05/31/2025 8:00 AM EST Office Visit [facility] ADULT DENTAL 230 [place], [place] [phone] Catherine Antonio 230 [place] [address] documented as of this encounter Visit Diagnoses Not on filedocumented in this encounter Care Teams Director Phone Relationship Specialty Start Date End Date Agustin Marrero MD 230 [place] [address] PCP - General Internal Medicine 01/25/14 [facility] 06/13/16 documented as of this encounter
--- OUTSIDE RECORDS SUMMARY | 2025-02-17 06:26 | XMS_ITS | Encounter Summary ---
Author Organization [employer] Address [address] [place] [address] 7t [place] [address] Care Team Providers Care Detective Youth Bureau Name Role Phone Agustin Marrero MD Primary Care Provide r Reason for Visit * Reason Comments Med Refill Encounter Details Date Type Department Care Team ([facility] st Contact Info) Description 10/20/2023 Refill [facility] & PEDS [address] [place], [place] [phone] Agustin Marrero MD 230 [place] [address] Chronic midline low back pain without sciatica [...] Office Visit [facility] MEDICINE [address] [place] [address] Agustin Marrero MD [address] [place] [address] 03/24/2025 9:00 AM EST Clinical Support [facility] MEDICINE [address] [place] [address] Shwetha Collado, KATALINA 505 [place] [address] 05/31/2025 8:00 AM EST Office Visit [facility] ADULT DENTAL [address] [place] [address] Catherine Antonio 230 [place] [address] documented as of this encounter Visit Diagnoses Diagnosis Chronic midline low back pain without sciatica documented in this encounter Additional Health Concerns Assessment Noted Time PHQ-9 Depression Total Score: 5 06/16/19 24 9:35 AM EST documented as of this encounter Care Teams Detective Youth Bureau Relationship Specialty Start Date End Date Agustin Marrero MD [address] [place] [address] PCP - General Internal Medicine 01/25/14 [facility] 06/13/16 documented as of this encounter
--- OUTSIDE RECORDS SUMMARY | 2025-02-17 06:26 | XMS_ITS | Encounter Summary ---
Author Organization [employer] Address [address] [place] [address] 7 [place] [address] Care Team Providers Care Slot Floor Attendant Name Role Phone Agustin Marrero MD Primary Care Provide r Reason for Visit * Reason Onset Date Comments Med Refill 09/13/2024 Encounter Details Date Type Department Care Team ([facility] st Contact Info) Description 09/13/2024 Telephone [facility] MED[facility] 230 [place], [place] [phone] Agustin Marrero MD 230 [place], [place] [phone] Med Refill Social History Tobacco Use Types [...] 300 MG capsule To be sent to: [facility]/pharmacy #[id number] [place] [address] documented in this encounter Plan of Treatment Upcoming Encounters Date Type Department Care Team (Late st Contact Info) Description 02/23/2025 10:00 AM EST Office Visit [facility] MEDICINE [address] [place] [address] Agustin Marrero MD [address] [place] [address] 03/24/2025 9:00 AM EST Clinical Support [address] [address] Shwetha Collado, KATALINA [address] [place] [address] 05/31/2025 8:00 AM EST Office Visit [facility] ADULT DENTAL 230 [place] [address] Catherine Antonio [address] [place] [address] documented as of this encounter Visit Diagnoses Not on filedocumented in this encounter Additional Health Concerns Assessment Noted Time PHQ-9 Depression Total Score: 0 12/03/19 10:31 AM EDT documented as of this encounter Care Teams Slot Floor Attendant Relationship Specialty Start Date End Date Agustin Marrero MD 230 [place] [address] PCP - General Internal Medicine 01/25/14 [facility] 06/13/16 documented as of this encounter
--- OUTSIDE RECORDS SUMMARY | 2025-02-17 06:26 | XMS_ITS | Encounter Summary ---
Author Organization [facility] Address [address] [place] [address] Care Team Providers Care Quality Control Inspector Name Role Phone Agustin Mix Primary Care Provider + Encounter Details Date Type Department Care Team (Late st Contact Info) Description 07/23/2023 Orders Only [facility] Interventional Radiology [address] [place] [address] Pawel Sanchez MD 55 [place] [address] Social History Tobacco Use Types Packs/Day Years [...] Info) Description 03/27/2025 10:30 AM EST Follow-Up [facility] Liver Transplant Services [address] [place] [address] Dylan Phelps MD [address] [place] [address] documented as of this encounter Visit Diagnoses Not on filedocumented in this encounter Care Teams Quality Control Inspector Relationship Specialty Start Date End Date Agustin Mix [address] [place] [address] PCP - General Internal Medicine 04/15/17 documented as of this encounter
--- OUTSIDE RECORDS SUMMARY | 2025-02-17 06:26 | XMS_ITS | Encounter Summary ---
Author Organization [employer] Address [address] [place] [address] 7 [place] [address] Care Team Providers Care Quality Inspector Name Role Phone Agustin Marrero MD Primary Care Provide r Reason for Visit * Reason Onset Date Comments Med Refill 09/05/2024 Encounter Details Date Type Department Care Team ([facility] st Contact Info) Description 09/05/2024 Telephone [facility] MEDICINE [address] [place], [place] [phone] Agustin Marrero MD [address] [place], [place] [phone] Med Refill Social History Tobacco Use Types [...] [facility]/pharmacy #[id number] [place] [address] documented in this encounter Plan of Treatment Upcoming Encounters Date Type Department Care Team (Late st Contact Info) Description 02/23/2025 10:00 AM EST Office Visit [facility] MEDICINE [address] [place] [address] Agustin Marrero MD 230 [place] [address] 03/24/2025 9:00 AM EST Clinical Support [facility] MEDICINE [address] [place] [address] Shwetha Collado RN 505 [place] [address] 05/31/2025 8:00 AM EST Office Visit [facility] ADULT DENTAL [address] [place] [address] Catherine Antonio 230 [place] [address] documented as of this encounter Visit Diagnoses Not on filedocumented in this encounter Additional Health Concerns Assessment Noted Time PHQ-9 Depression Total Score: 0 12/03/19 24 10:31 AM EDT documented as of this encounter Care Teams Quality Inspector Relationship Specialty Start Date End Date Agustin Marrero MD [address] [place] [address] PCP - General Internal Medicine 01/25/14 [facility] 06/13/16 documented as of this encounter
--- OUTSIDE RECORDS SUMMARY | 2025-02-17 06:26 | XMS_ITS | Encounter Summary ---
Author Organization [employer] Address [address] [place] [address] 7 [place] [address] Care Team Providers Care Record Press Supervisor Name Role Phone Augstin Marrero MD Primary Care Provide r Reason for Visit * Reason Onset Date Comments Med Refill 03/01/2024 Encounter Details Date Type Department Care Team ([facility] st Contact Info) Description 03/01/2024 Telephone [facility]INE 230 [place], [place] [phone] Agustin Marrero MD 230 [place], [place] [phone] Med Refill Social History Tobacco Use Types [...] encounter Miscellaneous Notes * Telephone Encounter - aPtti White LPN - 03/01/2024 2:22 PM EST Medication was sent to [id number] on 02/29/24. * Telephone Encounter - Manjeet cMlaughlin - 03/01/2024 2:17 PM EST TC from pt requesting medication refill. Medications needing refill : 1- zolpidem (Ambien) 10 MG tablet To be sent to: [facility]/pharmacy #[id number] documented in this encounter Plan of Treatment Upcoming Encounters Date Type Department Care Team (Late st Contact Info) Description 02/23/2025 10:00 AM EST Office Visit [facility] [address] [place] [address] Agustin Marrero MD [address] [place] [address] 03/24/2025 9:00 AM EST Clinical Support [facility] [address] [place] [address] Shwetha Collado, KATALINA 505 [place] [address] 05/31/2025 8:00 AM EST Office Visit [facility] ADULT DENTAL [address] [place] [address] Catherine Antonio [address] [place] [address] documented as of this encounter Visit Diagnoses Not on filedocumented in this encounter Additional Health Concerns Assessment Noted Time PHQ-9 Depression Total Score: 0 12/03/19 24 10:31 AM EDT documented as of this encounter Care Teams Record Press Supervisor Relationship Specialty Start Date End Date Agustin Marrero MD 230 [place] [address] PCP - General Internal Medicine 01/25/14 [facility] 06/13/16 documented as of this encounter
--- OUTSIDE RECORDS SUMMARY | 2025-02-17 06:26 | XMS_ITS | Encounter Summary ---
Author Organization [employer] Address [address] [place] [address] 7 [place] [address] Care Team Providers Care Tack Puller Machine Name Role Phone Agustin Marrero MD Primary Care Provide r Encounter Details Date Type Department Care Team (Latest Contact Info) Description 09/06/2018 Abstract [facility] CONVERSIONS Dental, Provider, DDS Social History [...] Description 02/23/2025 10:00 AM EST Office Visit [facility] MEDICINE [address] [place] [address] Agustin Marrero MD 230 [place] [address] 03/24/2025 9:00 AM EST Clinical Support [facility] MEDICINE [address] [place] [address] Shwetha Collado RN 505 [place] [address] 05/31/2025 8:00 AM EST Office Visit [facility] ADULT DENTAL [address] [place] [address] Catherine Antonio [address] [place] [address] documented as of this encounter Visit Diagnoses Not on filedocumented in this encounter Care Teams Tack Puller Machine Relationship Specialty Start Date End Date Agustin Marrero MD 230 [place] [address] PCP - General Internal Medicine 01/25/14 [facility] 06/13/16 documented as of this encounter
--- OUTSIDE RECORDS SUMMARY | 2025-02-17 06:26 | XMS_ITS | Encounter Summary ---
Author Organization [employer] Address [address] [place] [address] [place] [address] Care Team Providers Care Telephone Triage Nurse Name Role Phone Agustin Marrero MD Primary Care Provide r Encounter Details Date Type Department Care Team (Latest Contact Info) Description 06/18/2021 Abstract [facility] CONVERSIONS Dental, Provider, DDS Social History [...] Description 02/23/2025 10:00 AM EST Office Visit [facility] MEDICINE [address] [place] [address] Agustin Marrero MD 230 [place] [address] 03/24/2025 9:00 AM EST Clinical Support [facility] MEDICINE [address] [place] [address] Shwetha Collado RN 505 [place] [address] 05/31/2025 8:00 AM EST Office Visit [facility] ADULT DENTAL [address] [place] [address] Catherine Antonio [address] [place] [address] documented as of this encounter Visit Diagnoses Not on filedocumented in this encounter Care Teams Telephone Triage Nurse Relationship Specialty Start Date End Date Agustin Marrero MD 230 [place] [address] PCP - General Internal Medicine 01/25/14 [facility] 06/13/16 documented as of this encounter
--- OUTSIDE RECORDS SUMMARY | 2025-02-17 06:26 | XMS_ITS | Encounter Summary ---
Author Organization [employer] Address [address] [place] [address] 7 [place] [address] Care Team Providers Care Supervisor Malted Milk Name Role Phone Agustin Marrero MD Primary Care Provide r Reason for Visit * Reason Onset Date Comments Med Refill 10/16/2022 Encounter Details Date Type Department Care Team ([facility] st Contact Info) Description 10/16/2022 Telephone [facility] MEDICINE 230 [place], [place] [phone] Agustin Marrero MD 230 [place], [place] [phone] Med Refill Social History Tobacco Use Types [...] Description 02/23/2025 10:00 AM EST Office Visit [facility] MEDICINE 230 [place] [address] Agustin Marrero MD [address] [place] [address] 03/24/2025 9:00 AM EST Clinical Support [facility] MEDICINE 230 [place] [address] Shwetha Collado, KATALINA 505 [place] [address] 05/31/2025 8:00 AM EST Office Visit [facility] ADULT DENTAL 230 [place] [address] Paco, Catherine 230 [place] [address] documented as of this encounter Visit Diagnoses Not on filedocumented in this encounter Care Teams Supervisor Malted Milk Relationship Specialty Start Date End Date Agustin Marrero MD [address] [place] [address] PCP - General Internal Medicine 01/25/14 [facility] 06/13/16 documented as of this encounter
--- OUTSIDE RECORDS SUMMARY | 2025-02-17 06:26 | XMS_ITS ---
Author Organization [facility] Address [address] [place] [address] Care Team Providers Care Television Script Writer Name Role Phone Agustin Mix Primary Care Provider + Transplant Episode Liver Recipient [facility] ([place], [place]) - [facility] Organ Received: Liver Transplanted on 08/09/2019 Marked as Active Follow-up on 08/09/2019 Liver CoordinatorErika Bonds RN Phone: N/A Fax: N/A Email: N/A [place] Organ Diagnosis Organ Primary Contributory Liver Alcoholic [...] Coordinator N/A N/A N/A Dylan Phelps MD Compensation Advisor [phone] [email or web address] Shanda Joe Referring Physician [phone] N/A Events Post-Transplant Pre-Transplant Admitted: 08/09/2019 Referred: 09/08/2016 Transplanted: 08/09/2019 Evaluation began: 7 Discharged: 08/25/2019 Committee: 10/24/2016 Center waitlisted: 7 Appointments (01/17/2025 - 03/19/2025) When With Visit Type Description 02/06/2025 Transplant - Colton Phelps Follow Up Cancel ed (Patient - Transportation)
--- OUTSIDE RECORDS SUMMARY | 2025-02-17 06:26 | XMS_ITS | Encounter Summary ---
Author Organization [employer] Address [address] [place] [address] 7[place] [address] Care Team Providers Care Curtain Supervisor Name Role Phone Agustin Marrero MD Primary Care Provide r Encounter Details Date Type Department Care Team (Latest Contact Info) Description 05/23/2019 Abstract [facility] CONVERSIONS Dental, Provider, DDS Social [...] 02/23/2025 10:00 AM EST Office Visit [facility] MEDICINE [address] [place] [address] Agustin Marrero MD 230 [place] [address] 03/24/2025 9:00 AM EST Clinical Support [facility] MEDICINE [address] [place] [address] Shwetha Collado RN 505 [place] [address] 05/31/2025 8:00 AM EST Office Visit [facility] ADULT DENTAL [address] [place] [address] Catherine Antonio [address] [place] [address] documented as of this encounter Visit Diagnoses Not on filedocumented in this encounter Care Teams Curtain Supervisor Relationship Specialty Start Date End Date Agustin Marrero MD 230 [place] [address] PCP - General Internal Medicine 01/25/14 [facility] 06/13/16 documented as of this encounter
--- OUTSIDE RECORDS SUMMARY | 2025-02-17 06:26 | XMS_ITS | Encounter Summary ---
Author Organization [employer] Address [address] [place] [address] 7t [place] [address] Care Team Providers Care Director Power Name Role Phone Agustin Marrero MD Primary Care Provide r Reason for Visit * Reason Comments Med Refill Encounter Details Date Type Department Care Team ([facility] st Contact Info) Description 10/28/2023 Refill [facility]INE 230 [place], [place] [phone] Lela Wu MD 230 [place], [place] [phone] Primary insomnia Social History Tobacco Use Types [...] AM EST Office Visit [facility]INE [address] [place] [address] Agustin Marrero MD [address] [place] [address] 03/24/2025 9:00 AM EST Clinical Support [facility]INE [address] [place] [address] Shwetha Collado RN 505 [place] [address] 05/31/2025 8:00 AM EST Office Visit [facility] ADULT DENTAL [address] [place] [address] Catherine Antonio [address] [place] [address] documented as of this encounter Visit Diagnoses Diagnosis Primary insomnia Persistent disorder of initiating or maintaining sleep documented in this encounter Additional Health Concerns Assessment Noted Time PHQ-9 Depression Total Score: 5 06/16/19 24 9:35 AM EST documented as of this encounter Care Teams Director Power Relationship Specialty Start Date End Date Agustin Marrero MD [address] [place] [address] PCP - General Internal Medicine 01/25/14 [facility] 06/13/16 documented as of this encounter
--- OUTSIDE RECORDS SUMMARY | 2025-02-17 06:26 | XMS_ITS | Encounter Summary ---
Author Organization [facility] Address [address] [place] [address] Care Team Providers Care Chartered Financial Analyst Name Role Phone Agustin Mix Primary Care Provider + Encounter Details Date Type Department Care Team (Late st Contact Info) Description 06/28/2020 Telephone [facility] Central Scheduling Department [address] [place] [address] Telephone Intake, Staff Social History Tobacco Use [...] and can be reached at phone number [phone]. Thank you documented in this encounter Plan of Treatment Upcoming Encounters Date Type Department Care Team (Late st Contact Info) Description 03/27/2025 10:30 AM EST Follow-Up [facility] Liver Transplant Services [address] [place], [place] [phone] Dylan Phelps MD 55 [place], [place] [phone] documented as of this encounter Visit Diagnoses Not on filedocumented in this encounter Care Teams Chartered Financial Analyst Relationship Specialty Start Date End Date Agustin Mix 230 [place] [address] PCP - General Internal Medicine 04/15/17 documented as of this encounter
--- OUTSIDE RECORDS SUMMARY | 2025-02-17 06:26 | XMS_ITS | Encounter Summary ---
Author Organization [facility] Address [address] [place] [address] Care Team Providers Care Violin Repairer Name Role Phone Agustin Mix Primary Care Provider + Encounter Details Date Type Department Care Team (Late st Contact Info) Description 01/13/2020 Orders Only [facility] 2 Rad Act 1 [address] [place] [address] Pawel Sanchez MD 55 [place] [address] Social History Tobacco Use Types Packs/Day Years [...] Info) Description 03/27/2025 10:30 AM EST Follow-Up [facility] Liver Transplant Services [address] [place] [address] Dylan Phelps MD [address] [place] [address] documented as of this encounter Visit Diagnoses Not on filedocumented in this encounter Additional Health Concerns Infection Onset Date Last Indicated Resolved Time COVID-19 - Suspected infection 03/05/2020 03/17/2020 03/17/2020 7:55 PM EST COVID-19 - Confirmed infection 05/01/2020 05/07/2020 06/01/2020 5:06 PM EST COVID-19 - Suspected infection 05/10/2020 05/10/2020 05/24/2020 10:34 PM EST documented as of this encounter Care Teams Violin Repairer Relationship Specialty Start Date End Date Agustin Mix [address] [place] [address] PCP - General Internal Medicine 04/15/17 documented as of this encounter
--- OUTSIDE RECORDS SUMMARY | 2025-02-17 06:26 | XMS_ITS | Encounter Summary ---
Author Organization [employer] Address [address] [place] [address] 7 [place] [address] Care Team Providers Care Medical Oncologist Name Role Phone Agustin Marrero MD Primary Care Provide r Reason for Visit * Reason Onset Date Comments Med Refill 10/04/2024 Encounter Details Date Type Department Care Team ([facility] st Contact Info) Description 10/04/2024 Telephone [facility] MEDICINE 230 [place], [place] [phone] Agustin Marrero MD 230 [place], [place] [phone] Med Refill Social History Tobacco Use Types [...] 50 MG tablet To be sent to: [facility]/pharmacy #[id number] [place] [address] documented in this encounter Plan of Treatment Upcoming Encounters Date Type Department Care Team (Late st Contact Info) Description 02/23/2025 10:00 AM EST Office Visit [facility] MEDICINE [address] [place] [address] Agustin Marrero MD 230 [place] [address] 03/24/2025 9:00 AM EST Clinical Support [facility] MEDICINE [address] [place] [address] Shwetha Collado RN 505 [place] [address] 05/31/2025 8:00 AM EST Office Visit [facility] ADULT DENTAL 230 [place], [place] [phone] PacoCatherine [address] [place] [address] documented as of this encounter Visit Diagnoses Not on filedocumented in this encounter Additional Health Concerns Assessment Noted Time PHQ-9 Depression Total Score: 0 12/03/19 10:31 AM EDT documented as of this encounter Care Teams Medical Oncologist Relationship Specialty Start Date End Date Agustin Marrero MD 230 [place] [address] PCP - General Internal Medicine 01/25/14 [facility] 06/13/16 documented as of this encounter
--- OUTSIDE RECORDS SUMMARY | 2025-02-17 06:27 | XMS_ITS | Encounter Summary ---
Author Organization [employer] Address [address] [place] [address] 7t [place] [address] Care Team Providers Care Line Driver Name Role Phone Agustin Marrero MD Primary Care Provide r Encounter Details Date Type Department Care Team ([facility] st Contact Info) Description 05/05/2023 Telephone [facility] MEDICINE [address] [place], [place] [phone] Agustin Marrero MD 230 [place], [place] [phone] Social History Tobacco Use Types Packs/Day Years [...] Description 02/23/2025 10:00 AM EST Office Visit [facility] MEDICINE [address] [place] [address] Agustin Marrero MD [address] [place] [address] 03/24/2025 9:00 AM EST Clinical Support [facility] MEDICINE [address] [place] [address] Shwetha Collado, RN [address] [place] [address] 05/31/2025 8:00 AM EST Office Visit [facility] ADULT DENTAL [address] [place] [address] Paco, Catherine [address] [place] [address] documented as of this encounter Visit Diagnoses Not on filedocumented in this encounter Care Teams Line Driver Relationship Specialty Start Date End Date Agustin Marrero MD [address] [place] [address] PCP - General Internal Medicine 01/25/14 [facility] 06/13/16 documented as of this encounter
--- OUTSIDE RECORDS SUMMARY | 2025-02-17 06:27 | XMS_ITS | Encounter Summary ---
Author Organization [employer] Address [address] [place] [address] 7t [place] [address] Care Team Providers Care Proposal Writer Name Role Phone Agustin Marrero MD Primary Care Provide r Reason for Visit * Reason Comments Med Refill Encounter Details Date Type Department Care Team ([facility] st Contact Info) Description 06/04/2023 Refill [facility] MEDICINE 230 [place], [place] [phone] Natasha Nguyen MD 230 [place] [address] Gastroesophageal reflux disease, unspecified whether esophagitis present [...] 10:00 AM EST Office Visit [facility] MEDICINE [address] [place] [address] Agustin Marrero MD [address] [place] [address] 03/24/2025 9:00 AM EST Clinical Support [facility] MEDICINE [address] [place] [address] Shwetha Collado, RN 505 [place] [address] 05/31/2025 8:00 AM EST Office Visit [facility] ADULT DENTAL [address] [place] [address] Catherine Antonio [address] [place] [address] documented as of this encounter Visit Diagnoses Diagnosis Gastroesophageal reflux disease, unspecified whether esophagitis present documented in this encounter Care Teams Proposal Writer Relationship Specialty Start Date End Date Agustin Marrero MD [address] [place] [address] PCP - General Internal Medicine 01/25/14 [facility] 06/13/16 documented as of this encounter
--- OUTSIDE RECORDS SUMMARY | 2025-02-17 06:27 | XMS_ITS | Encounter Summary ---
Author Organization [employer] Address [address] [place] [address] 7[place], [place] [address] Care Team Providers Care Matcher Name Role Phone Agustin Marrero MD Primary Care Provide r Reason for Visit * Reason Onset Date Comments Med Refill 12/15/2022 Encounter Details Date Type Department Care Team ([facility] st Contact Info) Description 12/15/2022 Telephone [facility] MEDICINE [address] [place], [place] [phone] Agustin Marrero MD [address] [place] [address] Med Refill Social History Tobacco Use Types [...] Visit [facility] MEDICINE [address] [place] [address] Agustin Marrero MD [address] [place] [address] 03/24/2025 9:00 AM EST Clinical Support [facility] MEDICINE [address] [place] [address] Shwetha Collado, RN 505 [place], [place] [phone] 05/31/2025 8:00 AM EST Office Visit [facility] ADULT DENTAL [address] [place] [address] Paco, Catherine [address] [place] [address] documented as of this encounter Visit Diagnoses Not on filedocumented in this encounter Care Teams Matcher Relationship Specialty Start Date End Date Agustin Marrero MD [address] [place] [address] PCP - General Internal Medicine 01/25/14 [facility] 06/13/16 documented as of this encounter
--- OUTSIDE RECORDS SUMMARY | 2025-02-17 06:27 | XMS_ITS | Encounter Summary ---
Author Organization [employer] Address [address] [place] [address] 7 [place] [address] Care Team Providers Care Dry Dip Worker Name Role Phone Agustin Marrero MD Primary Care Provide r Encounter Details Date Type Department Care Team (Late st Contact Info) Description 08/28/[address] [address] Agustin Marrero MD [address] [place] [address] Social History Tobacco Use Types Packs/Day Years [...] Description 02/23/2025 10:00 AM EST Office Visit [address] [phone] Agustin Marrero MD [address] [place] [address] 03/24/2025 9:00 AM EST Clinical Support [address] [place] [address] Shwetha Collado, KATALINA [address] [place] [address] 05/31/2025 8:00 AM EST Office Visit [facility] ADULT DENTAL [address] [place] [address] Catherine Antonio [address] [place] [address] documented as of this encounter Procedures Procedure Name Priority Date/Time Associated Diagnosis Comments COLONOSCOPY Routine 06/28/2021 documented in this encounter Results * Colonoscopy (06/28/2021) Colonoscopy Normal Normal 06/28/2021 Narrative Shanel Bo - 06/28/2021 9:58 AM EST Recommended 3 year follow up per GI notes ( [facility] ) Historical Provider HEALTH MAINTENANCE Edited Result - Final documented in this encounter Visit Diagnoses Not on filedocumented in this encounter Care Teams Dry Dip Worker Relationship Specialty Start Date End Date Agustin Marrero MD 230 [place] [address] PCP - General Internal Medicine 01/25/14 [facility] 06/13/16 documented as of this encounter
--- OUTSIDE RECORDS SUMMARY | 2025-02-17 06:27 | XMS_ITS | Encounter Summary ---
Author Organization [facility] Address [address] [place] [address] Care Team Providers Care Principal Biostatistician Name Role Phone Agustin Mix Primary Care Provider + Encounter Details Date Type Department Care Team (Late st Contact Info) Description 01/20/2025 Results Follow-Up [facility] Transplant Department [address] [place] [address] Erika Bonds RN Social History Tobacco Use [...] Info) Description 03/27/2025 10:30 AM EST Follow-Up [facility] Liver Transplant Services [address] [place] [address] Dylan Phelps MD [address] [place] [address] documented as of this encounter Visit Diagnoses Not on filedocumented in this encounter Care Teams Principal Biostatistician Relationship Specialty Start Date End Date Agustin Mix [address] [place] [address] PCP - General Internal Medicine 04/15/17 documented as of this encounter
--- OUTSIDE RECORDS SUMMARY | 2025-02-17 06:27 | XMS_ITS | Encounter Summary ---
Author Organization [facility] Address [address] [place] [address] Care Team Providers Care Tool Filer Hand Name Role Phone Agustin Mix Primary Care Provider + Encounter Details Date Type Department Care Team (Late st Contact Info) Description 12/22/2024 Results Follow-Up [facility] Transplant Department [address] [place] [address] Erika Bonds RN Social History Tobacco Use [...] Info) Description 03/27/2025 10:30 AM EST Follow-Up [facility] Liver Transplant Services [address] [place] [address] Dylan Phelps MD [address] [place] [address] documented as of this encounter Visit Diagnoses Not on filedocumented in this encounter Care Teams Tool Filer Hand Relationship Specialty Start Date End Date Agustin Mix [address] [place] [address] PCP - General Internal Medicine 04/15/17 documented as of this encounter
--- OUTSIDE RECORDS SUMMARY | 2025-02-17 06:27 | XMS_ITS | Encounter Summary ---
Author Organization [facility] Address [address] [place] [address] Care Team Providers Care Lathe Setup Operator Name Role Phone Agustin Mix Primary Care Provider + Encounter Details Date Type Department Care Team (Late st Contact Info) Description 12/30/2021 Orders Only [facility] Interventional Radiology [address] [place] [address] Avelino Otero DO [address] [place] [address] Social History Tobacco Use Types Packs/Day Years [...] Info) Description 03/27/2025 10:30 AM EST Follow-Up [facility] Liver Transplant Services [address] [place] [address] Dylan Phelps MD [address] [place] [address] documented as of this encounter Visit Diagnoses Not on filedocumented in this encounter Care Teams Lathe Setup Operator Relationship Specialty Start Date End Date Agustin Mix [address] [place] [address] PCP - General Internal Medicine 04/15/17 documented as of this encounter
--- OUTSIDE RECORDS SUMMARY | 2025-02-17 06:27 | XMS_ITS | Clinical Summary ---
Author Organization [facility] Address [address] [place] [address] Care Team Providers Care Cement Truck Driver Name Role Phone Agustin Mix Primary Care [...] needed daily 2 Active FreeStyle Arvin 2 [place] misc 2 Active BD Insulin Syringe Ultra-Fine [...] in March 2020. He was seen by paint mixer at [facility] who discussed that he might need [...] for liver biopsy, since LFT pattern not technology sales representative of rejection. Additionally, Liver ultrasound [...] of recurrent ESBL bacteremia. Initially presented to [facility] for fever, LE swelling and pain. Unclear source. BCX grew esbl E.Coli 1 out of 2 sets from [facility], susceptible to Ertapenem. Initially he was [...] of recurrent ESBL bacteremia. Initially presented to [facility] for fever, LE swelling and pain. Unclear source. BCX grew esbl E.Coli 1 out of 2 sets from [facility], susceptible to Ertapenem. Initially he was [...] CBC and CMP - f/u plan from [place] for length of treatment Assessment & Plan (02/05/2019 6:23 AM EDT): Patient has a recurrent history of recurrent ESBL bacteremia. Patient initially presented to [facility] for fever and LE swelling and pain. Unclear source. BCX grew esbl E.Coli 1 out of 2 sets from [facility], susceptible to Ertapenem. Initially he was on zosyn, and was switched to ertapenem. On previous admission, MRCP on 12/20 or Abdominal US on 01/16 showed no biliary dilatation. - continue ertapenem (10 day course to be completed on 02/09 per [facility] note) - repeat BCX - CT AP w/ contrast - consult transplant ID in the AM - f/u CBC and CMP Assessment & Plan (02/05/2019 5:40 AM EDT): Patient has a recurrent history of recurrent ESBL bacteremia. Patient initially presented to [facility] for fever and LE swelling and pain. Unclear source. BCX grew esbl E.Coli 1 out of 2 sets from [facility], susceptible to Ertapenem. Initially he was on zosyn, and was switched to ertapenem. On previous admission, MRCP on 12/20 or Abdominal US on 01/16 showed no biliary dilatation. - continue ertapenem (10 day course to be completed on 02/09 per [facility] note) - repeat BCX - CT AP w/ contrast Abscess of leg, right 02/05/20192018 Assessment & Plan (02/22/2019 3:37 PM EST): Patient has worsened leg edema R>L w/ rt side 4+ pitting edema. At [facility], US was negative for DVT. CT rt [...] w/ rt side 4+ pitting edema. At [facility], US was negative for DVT. CT rt [...] Right side has 4+ pitting edema. At [facility], US was obtained and ruled out DVT. [...] found. OSH GI recommended transfer to [facility] as there was a suspicion for [...] pathology. -BCx grew GNR -transplant ID consulted -[facility] was called for speciation, it [...] concerning for pathology. -Transplant ID is following -[facility] will fax culture data, commented that [...] 8:59 AM EST): Hyponatremic to 132 at [facility]. Na 128, constant through hospitalization. - daily BMP Assessment & Plan (02/09/2019 11:02 AM EDT): Hyponatremic to 132 at [facility]. Na 128, constant through hospitalization. - daily BMP Assessment & Plan (02/05/2019 5:51 AM EDT): Hyponatremic to 132 at [facility]. - repeat BMP in am and redose diuretics Assessment & Plan (02/05/2019 5:47 AM EDT): Hyponatremic to 132 at [facility]. - repeat BMP in am and [...] need for repeat thoracentesis patient was transferred [facility]. On arrival patient without any [...] for thoracentesis. Will send fluid studies. -Requested [facility] records of pleural fluid studies from 07/06 -Supplemental oxygen as needed to maintain sats greater than 92% Assessment & Plan (01/19/2019 10:11 AM EDT): Patient is s/p thoracentesis after large left lung effusion unchanged from previous admission seen on imaging. Site of thoracentesis covered with bandage that is dry and intact. Chart review of his prior hospitalization at [facility] revealed that he had thoracentesis on January 11, 2019, during which 1.6 L was taken out, and fluid study revealed white blood cell count of 2650 and segs of 35%, suggesting exudative fluid, although it seems that no paracentesis was done at [facility]. - decreased breath sounds in middle and [...] transudative fluid, rapidly reaccumulating, transferred to [facility] for TIPS intervention. Resumed diuretics today [...] procedure in 2017. Most recent hospitalization at [facility] was in January 2019 when [...] to hyperkalemia. Of note, reached out to [facility] to double check if paracentesis was done, and whether there is a fluid study of the sample, however it appears that no paracentesis was done at [facility]. - Start Lactulose increased to 20 g [...] TIPS procedure and was sent to [facility] for further evaluation. Plan -Continue with [...] 20mg daily and spironolactone 50mg daily. At [facility], patient received IV lasix 40mg daily. - [...] 20mg daily and spironolactone 50mg daily. At [facility], patient received IV lasix 40mg daily. - [...] Encounters Date Type Department Care Team Description 02/07/2025 Telephone [facility] Transplant Department [address] [place] [address] Erika Bonds RN 01/26/2025 Abstract [facility] Transplant Department [address] [place] [address] Dylan Phelps MD 01/20/2025 Results Follow-Up [facility] Transplant Department [address] [place] [address] Erika Bonds RN 01/19/2025 Abstract [facility] Transplant Department [address] [place] [address] Dylan Phelps MD 12/23/2024 Abstract [facility] Transplant Department [address] [place] [address] Dylan Phelps MD 12/22/2024 Results Follow-Up [facility] Transplant Department [address] [place] [address] Erika Bonds RN 12/22/2024 Abstract [facility] Transplant Department [address] [place] [address] Dylan Phelps MD 12/12/2024 Orders Only [facility] Transplant Department [address] [place] [address] Erika Bonds RN Encounter for immunosuppression management after liver transplant (HCC) (Primary Dx); History of hepatocellular carcinoma 11/25/2024 Abstract [facility] Transplant Department [address] [place] [address] Dylan Phelps MD 11/24/2024 Results Follow-Up [facility] Transplant Department [address] [place] [address] Erika Bonds RN 11/24/2024 Abstract [facility] Transplant Department [address] [place] [address] Dylan Phelps MD from Last 3 Months [...] Info) Description 03/27/2025 10:30 AM EST Follow-Up [facility] Liver Transplant Services [address] [place] [address] Dylan Phelps MD [address] [place] [address] Health Maintenance Due Date Last [...] 11/30/2023, 11/05/19 24, 05/06/2022, Additional history exists Medical Devices Implanted Type Area Safety Associate Device Identifier Shelf Expiration Date Model / Serial / Lot Shunt Transjugular Intrahepatic Portosystemic Tips Endoprosthesis [id number] Viatorr - [id number] Implanted:Qty: 1 on 07/28/2017 at [facility] Implant W L GORE 12/26/2019 [id number] / / Mesh Hernia With Strap Large Ventralex - [id number] Implanted:Qty: 1 on 03/20/2020 by Fernando Fine MD PhD at [facility] Mesh Right: Abdomen CR [employer] 01/15/2021 [id number] / / [id number] Stent Biliary Rx Fully Covered Self Expanding Metallic Rmv With Permalume Covering 8.5fr [id number] Wallflex - [id number] - [id number] Implanted:Qty: 1 on 11/21/2022 by Dunia Osorio MD at [facility] Stent N/A: Bile Duct Information Assurance 08/21/2024 [id number] / [id number] / Explanted Type Area Safety Associate Device Identifier Shelf Expiration Date Model / Serial / Lot Ercp Stent-11/21/2022 Implanted:080 07/2022 (Quantity not on file) Explanted:06/2022 (Quantity not on file) ERCP Stent Bile Duct 1 / / Txp Internal Biliary Stent- 0 Implanted:04/2 04/2019 (Quantity not on file) Explanted:07/2020 (Quantity not on file) TXP Internal Biliary Stent Bile Duct Procedures * Due to [place] state law, this organization might not be sharing negative HIV tests. Procedure Name Priority Date/Time Associated Diagnosis Comments AFP TUMOR MARKER, OUTSIDE LAB Routine 01/18/2025 7:10 AM EDT LIVER POST EXTERNAL PANEL Routine 01/18/2025 7:10 AM EDT AFP TUMOR MARKER, OUTSIDE LAB Routine 12/21/2024 6:38 AM EDT LIVER POST EXTERNAL PANEL Routine 12/21/2024 6:38 AM EDT AFP TUMOR MARKER, OUTSIDE LAB Routine 11/23/2024 7:08 AM EDT LIVER POST EXTERNAL PANEL Routine 11/23/2024 7:[address] CHEST W CONTRAST Routine [...] to Health Maintenance Results * Due to [place] state law, this organization might not be sharing negative HIV tests. * LIVER POST EXTERNAL PANEL (01/18/2025 7:10 AM EDT) Only the most recent of3 resultswithin the time period is included. Tacrolimus, Highly Sensitive 3.9 [facility] Sodium 139 mmol/L [facility] Potassium 4.5 [facility] Chloride 109 [facility] Carbon Dioxide 23 [facility] Glucose 167 [facility] BUN 14 mg/dL [facility] Creatinine 0.97 mg/dL [facility] Calcium 8.8 mg/dL [facility] Total Protein 6.8 g/dL [facility] Albumin 4.4 g/dL [facility] Bilirubin, Total 0.7 mg/dL [facility] Alkaline Phosphatase 104 U/L [facility] AST 29 U/L [facility] ALT 34 U/L [facility] Magnesium 1.70 mg/dL [facility] WBC 5.5 10*3/uL [facility] Hgb 14.0 [facility] Hematocrit 38.0 % [facility] Platelets 122 10*3/uL [facility] 01/18/2025 7:10 AM EDT us Dylan Phelps MD LAB BLOOD ORDERABLES Final Re sult [facility] [address] [place], [place] [id number] * AFP Tumor Marker, Outside Lab (01/18/2025 7:10 AM EDT) Only the most recent of3 resultswithin the time period is included. Alpha Fetoprotein, Tumor Marker 1.5 [facility] Blood Structure of peripheral vein / Unknown 01/18/2025 7:10 AM EDT us Dylan Phelps MD LAB BLOOD ORDERABLES Final Re sult [facility] [address] [place] [address] * CT Chest W Contrast (11/05/2023 4:35 [...] to obtain the completed interpretation. Workstation ID: [id number] Up-to-date CT equipment and radiation dose reduction techniques were employed. CTDIvol: 3.1 - 23.9 mGy. DLP: 2643 mGy-cm. The following accession numbers are related to this dose report [id number]: [id number] Narrative 11/19/2023 3:36 PM EDT Indication: 58 [...] the spine. Bilateral gynecomastia. Resulting Agency Comment [id number] Procedure Note Natasha Michaud MD - 11/19/2023 [...] possible to obtain thecompleted interpretation. Workstation ID: [id number] Up-to-date CT equipment and radiation dose reduction techniques wereemployed. CTDIvol: 3.1 - 23.9 mGy. DLP: 2643 mGy-cm. The followingaccession numbers are related to this dose report [id number]: [id number] Dylan Phelps MD [facility] CT PROCEDURES Final Resul t * (ABNORMAL) Basic Metabolic Panel (11/15/2022 3:07 AM EDT) NA 135 135 - 145 mmol/L 11/15/2022 4:09 AM EDT [facility] K 4.6 3.5 - 5.3 mmol/L 11/15/2022 4:09 AM EDT [facility] Cl 103 97 - 110 mmol/L 11/15/2022 4:09 AM EDT [facility] CO2 24 24 - 32 mmol/L 11/15/2022 4:09 AM EDT [facility] BUN 27(H) 7 - 23 mg/dL 11/15/2022 4:09 AM EDT [facility] Creatinine 1.05 0.60 - 1.30 mg/dL 11/15/2022 4:09 AM EDT [facility] Glucose 268(H) 70 - 99 mg/dL 11/15/2022 4:09 AM EDT [facility] Calcium 8.8 8.7 - 10.7 mg/dL 11/15/2022 4:09 AM EDT [facility] Anion Gap 8 5 - 15 11/15/2022 4:09 AM EDT [facility] eGFR 82 >=60 mL/min/1. 73m2 11/15/2022 4:09 AM EDT [facility] Comment:The estimated glomer ular [...] MD LAB BLOOD ORDERABLES Final Re sult [facility] [address] [place] [address], * Microalbumin, Random Urine with Creatinine (05/17/2021 11:35 AM EST) Microalbumin, Urine 1.1 mg/dL 05/17/2021 12:34 PM EST [facility] Creatinine, Urine 97 22 - 328 mg/dL 05/17/2021 12:34 PM EST [facility] Microalb/Creat Ratio, Random Urine 11.3 <30.0 mcg/mgCr 05/17/2021 12:34 PM EST [facility] Comment: Microalbumin Reference Range: Normal <30 mcg/mg Creatinine Microalbuminuria 30-300 mcg/mg Creatinine Clinical Albuminuria >300 mcg/mg Creatinine Reference: ADA Guideline. Diabetes Care. 2004;27 (suppl 1) Urine Voided urine specimen / Unknown Non-Blood Collection / Unknown 05/17/2021 11:35 AM EST 05/17/2021 12:01 PM EST Angelita Villa MD LAB URINE ORDERABLES Final Resul t Performing Organization Address City/[facility]/ZIP Co de Phone Number [facility] [address] [place] [address], * (ABNORMAL) Hemoglobin A1c (05/17/2021 11:31 AM EST) Hemoglobin A1C 7.7(H) <5.7 % of total Hgb 05/18/2021 2:37 AM EST [facility] Comment: For someone without known diabetes, a [...] (MG/DL) 174 mg/dL 05/18/2021 2:37 AM EST [facility] eAG (MMOL/L) 9.7 mmol/L 05/18/2021 2:37 AM EST [facility] Blood Structure of peripheral vein / Unknown Venipuncture / Unknown 05/17/2021 11:31 AM EST 05/17/2021 11:40 AM EST Narrative [facility] - 05/18/2021 2:37 AM EST [facility] Received Date: Angelita Villa MD LAB BLOOD ORDERABLES Final Resul t Performing Organization Address City/[facility]/ZIP Co de Phone Number [facility] [address] [facility] [address]rd [address], [place] [address], [facility] [address] [facility] 3[address] Floor, [place] [address], * CT Abdomen Pelvis with Contrast (05/05/2020 5:27 PM EST) Anatomical Region Laterality Modality Body Computed Tomogra phy 05/06/2020 8:40 AM EST Impressions 05/06/2020 8:50 AM EST Small fluid pocket between the incision and transverse colon which may represent developing adhesions. Recommend correlation for any signs of infection in the incision on exam. Otherwise, no CT findings that might explain patient's fever. [id number] Narrative 05/06/2020 8:50 AM EST EXAMINATION: CT [...] no CT findings that mightexplain patient's fever. [id number] Reyes Voss MD IM CT PROCEDURES Final Result * Hepatitis C RNA, Quantitative, PCR (09/09/2019 11:52 AM EDT) Hcv RNA, Quantitative Real Time PCR <15 NOT DETECTED NOT DETECTED IU/mL 09/14/2019 5:38 PM EDT [facility] Hepatitis C Quantitative PCR Log IU/mL <1.18 NOT DETECTED NOT DETECTED Log IU/mL 09/14/2019 5:38 PM EDT [email or web address] Comment: This test was performed using Real-Time Polymerase Chain Reaction. Reportable Range: 15 IU/mL to 100,000,000 IU/mL (1.18 Log IU/mL to 8.00 Log IU/mL). The analytical performance characteristics of this assay have been determined by [employer]. The modifications have not been cleared or approved by the FDA. This assay has been validated pursuant to the CLIA regulations and is used for clinical purposes. For more information on this test, go to: http://education.[employer]/faq/EHK42s4 (This link is being provided for informational/ educational purposes only.) Blood Structure of peripheral vein / Unknown Venipuncture / Unknown 09/09/2019 11:52 AM EDT 09/09/2019 12:07 PM EDT [facility] - 09/14/2019 5:38 PM EDT [facility] Received Date: Cyndi Pereira MD LAB BLOOD ORDERAB LES Final Result [facility] [place] [address], [address] [place] [address], [place] [phone] [facility] [address], [address] [place] [address], [place] [phone] from Last 3 Months or Most Recently Relevant to Health Maintenance Insurance [facility] [address] [facility] [id number] [facility] [address] [place] [address] [facility] Advance Directives Documents on File Type Date Recorded Patient Infertility Nurse Expl anation Health Care Proxy 02/05/2019 4:40 [...] Jon Son Health Care Agent Care Teams Cement Truck Driver Relationship Specialty Start Date End Date Agustin Mix [address] [place] [address] PCP - General Internal Medicine 04/15/17
--- OUTSIDE RECORDS SUMMARY | 2025-02-17 06:27 | XMS_ITS | Encounter Summary ---
Author Organization [employer] Address [address] [place] [address] 7 [place] [address] Care Team Providers Care Cotton Bag Clipper Name Role Phone Agustin Marrero MD Primary Care Provide r Reason for Visit * Reason Onset Date Comments Med Refill 05/26/2023 Encounter Details Date Type Department Care Team ([facility] st Contact Info) Description 05/26/[address] [facility] [address] [place], [place] [phone] Agustin Marrero MD [address] [place], [place] [phone] Med Refill Social History Tobacco Use Types [...] LITE test strip To be sent to: [facility]/pharmacy [address] [place] [address] - [address] [place] [address] documented in this encounter Plan of Treatment Upcoming Encounters Date Type Department Care Team (Late st Contact Info) Description 02/23/2025 10:00 AM EST Office Visit [facility] [address] [place] [phone] Agustin Marrero MD [address] [place] [address] 03/24/2025 9:00 AM EST Clinical Support [facility] [address] [place] [address] Shwetha Collado RN [address] [place] [address] 05/31/2025 8:00 AM EST Office Visit [facility] [address] [place] [address] Catherine Antonio [address] [place] [address] documented as of this encounter Visit Diagnoses Not on filedocumented in this encounter Care Teams Cotton Bag Clipper Relationship Specialty Start Date End Date Agustin Marrero MD [address] [place] [address] PCP - General Internal Medicine 01/25/14 [facility] 06/13/16 documented as of this encounter
--- OUTSIDE RECORDS SUMMARY | 2025-02-17 06:27 | XMS_ITS | Encounter Summary ---
Author Organization [employer] Address [address] [place] [address] 7t [place] [address] Care Team Providers Care Jewelry Sales Associate Name Role Phone Agustin Marrero MD Primary Care Provide r Reason for Visit * Reason Comments Med Refill Encounter Details Date Type Department Care Team ([facility] st Contact Info) Description 02/14/2025 Refill [facility] [address] [place], [place] [phone] Agustin Marrero MD [address] [place], [place] [phone] Type 2 diabetes mellitus without complication, with long-term current use of insulin (HCC) Social History Tobacco Use Types Packs/Day Years [...] 10:00 AM EST Office Visit [facility] [address] [place] [address] Agustin Marrero MD [address] [place] [address] 03/24/2025 9:00 AM EST Clinical Support [facility] [address] [place] [address] Shwetha Collado, KATALINA [address] [place] [address] 05/31/2025 8:00 AM EST Office Visit [facility] [address] [place] [address] Catherine Antonio [address] [place] [address] documented as of this encounter Visit Diagnoses Diagnosis Type 2 diabetes mellitus without complication, with long-term current use of insulin (HCC) documented in this encounter Additional Health Concerns Assessment Noted Time PHQ-9 Depression Total Score: 0 11/02/19 25 9:25 AM EDT documented as of this encounter Care Teams Jewelry Sales Associate Relationship Specialty Start Date End Date Agustin Marrero MD [address] [place] [address] PCP - General Internal Medicine 01/25/14 [facility] 06/13/16 documented as of this encounter
--- OUTSIDE RECORDS SUMMARY | 2025-02-17 06:27 | XMS_ITS | Encounter Summary ---
Author Organization [facility] Address [address] [place] [address] Care Team Providers Care Historical Manuscripts Curator Name Role Phone Agustin Mix Primary Care Provider + Encounter Details Date Type Department Care Team (Late st Contact Info) Description 04/02/2020 Orders Only [facility] Interventional Radiology [address] [place] [address] Kathy Bowling MD [address] [place], [place] [phone] Social History Tobacco Use Types Packs/Day Years [...] Info) Description 03/27/2025 10:30 AM EST Follow-Up [facility] Liver Transplant Services [address] [place], [place] [phone] Dylan Phelps MD [address] [place] [address] documented as of this encounter Visit Diagnoses Not on filedocumented in this encounter Additional Health Concerns Infection Onset Date Last Indicated Resolved Time COVID-19 - Confirmed infection 05/01/2020 05/07/2020 06/01/2020 5:06 PM EST COVID-19 - Suspected infection 05/10/2020 05/10/2020 05/24/2020 10:34 PM EST documented as of this encounter Care Teams Historical Manuscripts Curator Relationship Specialty Start Date End Date Agustin Mix [address] [place] [address] PCP - General Internal Medicine 04/15/17 documented as of this encounter
--- OUTSIDE RECORDS SUMMARY | 2025-02-17 06:27 | XMS_ITS | Data Portability ---
Author Organization [place] [employer] [facility], Main Office Address [address] [facility], [address] [place] [address] Care Team Providers Care Front Facer Name Role Phone MARICRUZ SARGENT - 2ND FLOOR OTHER Assessment Encounter Date Assessment Date Assessment LastModified by Organization Details LastModified Time 02/25/2019 02/25/2019 02/24/19 WBC 3.7, Hgb 7.5, Hct 22.4, Plt 59, Na 134, K 4.5, BUN 10, Company Accountant 0.54, calc 7.8, tot prot 5.1, AST 69, ALT 33, A1c 4.2 02/23/19 WBC 3.4, Hgb 7.5, Hct 22.4, Plt 59, Na 128, K 4.3, BUN 11, Company Accountant 0.56, silvia 7.6, tot prot 4.8, tot bili 4.1, AST 65, ALT 25 in hospital [facility] Not available 02/25/2019 10:15:55 Plan of [...] Gastroesop hageal reflux disease without esophagiti s 412365418 Active 2018 FIDEL MAURO [address] [facility], [address], [place], [address], [facility] [employer] 9 08:26:33 Cirrhosis of liver 88000857 Active 2018 on transplant list FIDEL MAURO [address] [facility], [address], [place], [address], [facility] 9 08:36:16 Diabetes mellitus 30741961 Active 2018 CACHORRO FIDEL CARLSON [address] [facility], [address], [place], [address], [facility] 9 08:28:07 Hyponatrem ia 26081099 Active 2018 CACHORROFIDEL LEON [address] [facility], [address], [place], [address], [facility] 9 08:28:22 Bacteremia 2820770 Active 2018 FIDEL MAURO [address] [facility], [address], [place], [address], [facility] 9 08:29:07 Bacterial peritoniti s 119917896 Active 2018 FIDEL MAURO [address] [facility], [facility] [address], [place], [address], [facility] 9 09:07:42 Edema of lower extremity 268225948 Active 2018 FIDEL MAURO [address] [facility], [address], [place], [address], [facility] 9 09:15:49 Abscess of lower leg 250680254 Active 2018 Brittaney Mcelroy MD [address] [place] [address], [place] [address], [place], [address], [facility] 9 07:15:49 Anemia 463859409 Active 2018 Brittaney Mcelroy MD [address] [place] [address], [facility] [address], [place], [address], [facility] 9 07:16:47 Problem Notes None recorded. Medical Equipment None Reported. Allergies No known drug allergies Medications Not known to be on any medication Vitals Date Recorded Body weight Heart rate Respiratory rate Body temperature Oxygen saturation Oxygen saturation in Arterial blood by Pulse oximetry Systolic And Diastolic Provider Name and Address Organization Details Last Updated DateTime 9 58220.5 1 g 70 /min 20 /min 96.9 [degF] 98 % 98 % 128/74 mm[Hg] FIDEL MAURO [address] [facility], [address], [place], [address], [facility] 9 11:06:12 Date Recorded Systolic And Diastolic Provider Name and Address Organization Details Last Updated DateTime 03/02/2019 120/68 mm[Hg] Brittaney Mcelroy MD [address] [facility], [address], [place], [address], [facility] 03/02/2019 06:55:54 Social History Question Answer Notes LastModified by Organizat ion Details LastModified Time Tobacco Smoking Status Former Smoker Not Available [facility] 02/14/2020 03:13:21 Do You Have An Advance Directive? Yes FULL CODE-undecide d About Dialysis And Nutrition-may Use Hydration [id number] Information not available 02/14/2020 How Many Years Have You Consumed Alcohol? 30 [id number] Information not available 02/14/2020 How Much Tobacco Do You Chew? None [id number] Information not available 02/14/2020 Do You Have A Medical Power Of Control Analyst? Yes Hcp On File [id number] Information not available 02/14/2020 What Was The Date Of Your Most Recent Tobacco Screening? 02/25/2019 [id number] Information not available 02/14/2020 How Much Tobacco Do You Smoke? 1 PPD [id number] Information not available 02/14/2020 On What Date Was Tobacco Cessation Counseling Provided? 02/25/2019 NA [id number] Information not available 02/14/2020 How Many Years Have You Smoked Tobacco? 30 [id number] Information not available 02/14/2020 Sex: Unknown Functional Status Question Answer Note LastModified by Organizat ion Details LastModified Time What is your level of alcohol consumption? None quit drinking in 2015 [id number] Information not available 02/14/2020 Do you or have you ever used smokeless tobacco? Never used smokeless tobacco [id number] Information not available 02/14/2020 Do you or have you ever used e-cigarettes or vape? Never used electronic cigarettes [id number] Information not available 02/14/2020 Mental Status None recorded. Family History Nothing Reported. Medical History No medical history recorded. Past Encounters Encounter ID Performer Location Encounter Start Date Encounter Closed Date Diagnosis/Indication Diagnosis SNOMED-CT Code Diagnosis ICD10 Code Diagnosis IMO Codes Diagnosis Note [id number] CACHORRO FIDEL CARLSON [address] [address] 02/25/2019 08:25:36 03/04/2019 13:41:33 Bacteremia 9581197 R78.81 completed treatmentm onitor dsg changes qdwet to dryareas clean Hyponatremia 46861558 E8 7.1 resolvedmo nitor labs Cirrhosis of liver K70.31 lactulose 30 mls tid 3-4 stools a dayspirono lactone 50 mg qdmonitoro n transplant listfollow s with [facility] Diabetes mellitus 355889 09 E11.9 lantus 8 units q pyDFDK2j here is 4.2monitor for s/s of hypo/hyper glycemia Gastroesop hageal reflux disease without esophagitis 116563396 K21.9 omeprazole 20 mg qdmonitor for symptoms Bacterial peritonitis 19 0137054 K65.2 recurrentc ipro 500 mg qd prophymoni tor for symptoms Edema of l ower extremity 335570184 R60.0 lasix 20 mg qdmonitor edema [id number] Brittaney Mcelroy MD [address] [address] 03/02/2019 06:54:11 03/04/2019 13:42:54 Cirrhosis of liver 95576351 K70.31 fu GIlactulos e 20 gm tidfurosem concetta 20 mg dailymagne sium 400 mg dailyspiro nolactone 25 mg dailyon transplant list [facility] Diabetes mellitus 499329 09 E11.9 Humalog per sliding scaleLantu s 8U dailywill monitor Gastroesop hageal reflux disease without esophagitis 912930197 K21.9 omeprazole 20 mg dailywill monitor Anemia 273419986 D50.8 suspect multifacto rial including GI blood loss, chronic diseaseawa it B12, folateiron 325 mg bidwill continue to monitor Bacteremia 4679109 R78.8 1 antibiotic s completedd aily dressing changes legfu surgery Bacterial peritonitis 19 1965211 K65.2 history of in pastCipro 500 mg daily for prophylaxi sfu GI [facility] Health Concerns Section Related Observation LastModified by Organization Detai ls LastModified Time None Recorded Concern Status LastModified by Organization Details LastModified Time None Recorded Advance Directives Directive Y: FULL CODE-undecided about dialysis and nutrition-may use hydration Payers Insurance Date Sequence Insurance Name Policy Number Policy Banks Covered Member ID Banks Member ID Guarantor Name 03/04/2019 2 MED[place]ID-[place]: [facility] Edward Danay [id number] Edward Jon 03/04/2019 1 [facility] - DOS PRIOR TO 2022 - DUAL ELIGIBLE (MEDICARE REPLACEMENT/AD VANTAGE - HMO) Edward Danay [id number] Edward Jon Notes Date Note Type Note Provider Name and Address Organization Details Recorded Time 02/25/2019 text/html A 54 year old male being seen for a initial intake note. Patient was at [facility] for fever and lower extremity edema/pain. He was transferred to [facility] for bacteremia. He grew ESBL E. [...] hyponatremia and SBP. CACHORRO CARLSON, FIDEL [address] [facility], [address], [place], [address], [facility] 02/25/2019 11:10:47 03/02/2019 text/html ROS as noted in the HPI This 54 year old male was admitted to [facility] 02/23/19 for continued care and rehab after hospitalization for fever and lower extremity edema/pain. Patient has history of alcoholic liver disease and cirrhosis and is on transplant list. He was initially admitted to [facility], then transferred to [facility] for bacteremia. His blood cultures grew ESBL E. Coli and he started on antibiotics, initially Zosyn which was changed to meropenem, then ertapenem to complete a 10 day course. Patient has history recurrent bacteremia in past few months. During most recent prior [facility] admission, it was suspected that likely source of bacteremia was biliary. Patient had worsened R>L leg edema and US was negative at [facility] for DVT. CT of right lower [...] [address] [facility], [address], [place], [address], [facility] [employer] 03/02/2019 08:11:36
--- OUTSIDE RECORDS SUMMARY | 2025-02-17 06:27 | XMS_ITS | Encounter Summary ---
Author Organization [employer] Address [address] [place] [address] [address] [address] Care Team Providers Care Scientologist Name Role Phone Agustin Marrero MD Primary Care Provide r Reason for Visit * Reason Onset Date Comments Med Refill 12/15/2022 Encounter Details Date Type Department Care Team ([facility] st Contact Info) Description 12/15/2022 Telephone [facility] MEDICINE [address] [place], [place] [phone] Agustin Marrero MD [address] [place] [address] Med Refill Social History Tobacco Use Types [...] 02/23/2025 10:00 AM EST Office Visit [facility] MEDICINE [address] [place] [address] Agustin Marrero MD [address] [place] [address] 03/24/2025 9:00 AM EST Clinical Support [facility] MEDICINE [address] [place] [address] Shwetha Collado, RN [address] [place] [address] 05/31/2025 8:00 AM EST Office Visit [facility] ADULT DENTAL [address] [place] [address] Paco, Catherine [address] [place] [address] documented as of this encounter Visit Diagnoses Not on filedocumented in this encounter Care Teams Scientologist Relationship Specialty Start Date End Date Agustin Marrero MD [address] [place] [address] PCP - General Internal Medicine 01/25/14 [facility] 06/13/16 documented as of this encounter
--- OUTSIDE RECORDS SUMMARY | 2025-02-17 06:27 | XMS_ITS | Encounter Summary ---
Author Organization [employer] Address [address] [place] [address] 7t [place] [address] Care Team Providers Care Tube Sizer Operator Name Role Phone Agustin Marrero MD Primary Care Provide r Reason for Visit * Reason Comments Med Refill Encounter Details Date Type Department Care Team ([facility] st Contact Info) Description 05/13/2024 Refill [facility] MEDICINE [address] [place], [place] [phone] Agustin Marrero MD [address] [place] [address] Social History Tobacco Use Types Packs/Day Years [...] Description 02/23/2025 10:00 AM EST Office Visit [facility] MEDICINE [address] [place] [address] Agustin Marrero MD [address] [place] [address] 03/24/2025 9:00 AM EST Clinical Support [facility] MEDICINE [address] [place] [address] Shwetha Collado, RN [address] [place] [address] 05/31/2025 8:00 AM EST Office Visit [facility] ADULT DENTAL [address] [place] [address] Catherine Antonio [address] [place] [address] documented as of this encounter Visit Diagnoses Not on filedocumented in this encounter Additional Health Concerns Assessment Noted Time PHQ-9 Depression Total Score: 0 12/03/19 24 10:31 AM EDT documented as of this encounter Care Teams Tube Sizer Operator Relationship Specialty Start Date End Date Agustin Marrero MD [address] [place] [address] PCP - General Internal Medicine 01/25/14 [facility] 06/13/16 documented as of this encounter
--- OUTSIDE RECORDS SUMMARY | 2025-02-17 06:27 | XMS_ITS | Encounter Summary ---
Author Organization [employer] Address [address] [place] [address] 7 [place] [address] Care Team Providers Care Care Transport Nurse Name Role Phone Agustin Marrero MD Primary Care Provide r Reason for Visit * Reason Onset Date Comments Error 05/12/2023 Encounter Details Date Type Department Care Team ([facility] st Contact Info) Description 05/12/2023 Telephone [facility] MEDICINE [address] [place], [place] [phone] Agustin Marrero MD [address] [place], [place] [phone] Error Social History Tobacco Use Types Packs/Day [...] Description 02/23/2025 10:00 AM EST Office Visit [facility] MEDICINE [address] [place] [address] Agustin Marrero MD [address] [place] [address] 03/24/2025 9:00 AM EST Clinical Support [facility] MEDICINE [address] [place] [address] Shwetha Collado, RN [address] [place] [address] 05/31/2025 8:00 AM EST Office Visit [facility] ADULT DENTAL [address] [place] [address] Paco, Catherine [address] [place] [address] documented as of this encounter Visit Diagnoses Not on filedocumented in this encounter Care Teams Care Transport Nurse Relationship Specialty Start Date End Date Agustin Marrero MD [address] [place] [address] PCP - General Internal Medicine 01/25/14 [facility] 06/13/16 documented as of this encounter
--- OUTSIDE RECORDS SUMMARY | 2025-02-17 06:27 | XMS_ITS | Encounter Summary ---
Author Organization [employer] Address [address] [place] [address] 7 [place] [address] Care Team Providers Care Short Piece Handler Name Role Phone Agustin Marrero MD Primary Care Provide r Reason for Visit * Reason Onset Date Comments Medication Question 05/11/2024 Encounter Details Date Type Department Care Team ([facility] st Contact Info) Description 05/11/2024 Telephone [facility] MEDICINE [address] [place], [place] [phone] Agustin Marrero MD [address] [place], [place] [phone] Medication Question Social History Tobacco Use Types [...] Dr Richardson's office on 05/11/2024. Note in [facility] EHR: Received call from Edward's [...] early May to continue to monitor. Called [facility] pharmacy, spoke with Faiza who stated that pt last picked up Kayexalate on 08/13/2023, Rx was written by Dr Lenin Richardson for 30g 1x weekly as directed. Called [facility] Dr Richardson's office to confirm. Spoke [...] Richardson's office and received same messageas above. Security Control Center Operator advised Jessica to contact Dr Richardson with any questions regarding this med given that they prescribe it. Jessica stated she will be following up with their office in May once the pt gets their labs drawn. Advised her to call [facility] if any other questions or concerns develop, [...] leaving original prescriber contact information. Dr. Richardson [facility]. . If any questions for Jessica you can contact pt at [phone]. documented in this encounter Plan of Treatment Upcoming Encounters Date Type Department Care Team (Late st Contact Info) Description 02/23/2025 10:00 AM EST Office Visit [facility] MEDICINE [address] [place] [address] Agustin Marrero MD [address] [place] [address] 03/24/2025 9:00 AM EST Clinical Support [facility] MEDICINE [address] [place] [address] Shwetha Collado RN [address] [place] [address] 05/31/2025 8:00 AM EST Office Visit [facility] ADULT DENTAL [address] [place] [address] Catherine Antonio [address] [place] [address] documented as of this encounter Visit Diagnoses Not on filedocumented in this encounter Additional Health Concerns Assessment Noted Time PHQ-9 Depression Total Score: 0 08/15/20 24 10:31 AM EDT documented as of this encounter Care Teams Short Piece Handler Relationship Specialty Start Date End Date Agustin Marrero MD [address] [place] [address] PCP - General Internal Medicine 01/25/14 [facility] 06/13/16 documented as of this encounter
--- OUTSIDE RECORDS SUMMARY | 2025-02-17 06:27 | XMS_ITS | Encounter Summary ---
Author Organization [employer] Address [address] [place] [address] 7 [place] [address] Care Team Providers Care Silver Spray Worker Name Role Phone Agustin Marrero MD Primary Care Provide r Reason for Visit * Reason Comments Pre-visit Planning SDOH was already com pleted Encounter Details Date Type Department Care Team ([facility] st Contact Info) Description 02/16/2025 Patient Outreach [facility] MED & PEDS [address] [place], [place] [phone] Agustin Marrero MD [address] [place] [address] Pre-visit Planning (SDOH was already completed) Social History Tobacco Use Types Packs/Day Years [...] your housing situation today? I have fay wallace 11/01/[address] you li [...] as of this encounter Progress Notes * Raysa Mccormick - 02/16/2025 2:07 PM EDT CC Raysa Bellamy placed successful outbound call to patient for pre-visit planning. Patient name and confirmed. Patient confirms appt date and time, and has transportation arrangements. Biggest concern for appointment at this time is no concerns. Appropriate screenings completed in anticipation ofappointment. documented in this encounter Plan of Treatment Upcoming Encounters Date Type Department Care Team (Late st Contact Info) Description 02/23/2025 10:00 AM EST Office Visit [facility] MEDICINE [address] [place] [address] Agustin Marrero MD [address] [place] [address] 03/24/2025 9:00 AM EST Clinical Support [address] [address] Shwetha Collado RN [address] [place] [address] 05/31/2025 8:00 AM EST Office Visit [facility] ADULT DENTAL [address] [place] [address] Catherine Antonio [address] [place] [address] documented as of this encounter Visit Diagnoses Not on filedocumented in this encounter Additional Health Concerns Assessment Noted Time PHQ-9 Depression Total Score: 0 11/02/19 25 9:25 AM EDT documented as of this encounter Care Teams Silver Spray Worker Relationship Specialty Start Date End Date Agustin Marrero MD [address] [place] [address] PCP - General Internal Medicine 01/25/14 [facility] 06/13/16 documented as of this encounter
--- OUTSIDE RECORDS SUMMARY | 2025-02-17 06:27 | XMS_ITS | Encounter Summary ---
Author Organization [facility] Address [address] [place] [address] Care Team Providers Care Protohistorian Name Role Phone Agustin Mix Primary Care Provider + Encounter Details Date Type Department Care Team (Late st Contact Info) Description 02/29/2020 Orders Only [facility] Ultrasound [address] [place] [address] Sreedhar Sotelo MD [address] [place], [place] [phone] Social History Tobacco Use Types Packs/Day Years [...] [facility] [address] [place] [address] Dylan Phelps MD [address] [place] [address] documented as of this encounter Visit Diagnoses Not on filedocumented in this encounter Additional Health Concerns Infection Onset Date Last Indicated Resolved Time COVID-19 - Suspected infection 03/05/2020 03/17/2020 03/17/2020 7:55 PM EST COVID-19 - Confirmed infection 05/01/2020 05/07/2020 06/01/2020 5:06 PM EST COVID-19 - Suspected infection 05/10/2020 05/10/2020 05/24/2020 10:34 PM EST documented as of this encounter Care Teams Protohistorian Relationship Specialty Start Date End Date Agustin Mix [address] [place] [address] PCP - General Internal Medicine 04/15/17 documented as of this encounter
[2025-02-17 06:44] LABS: MANUAL DIFF FLAG NO
[2025-02-17 07:28] LABS: Hematocrit 40.8 % (42.0-52.0); Hemoglobin 14.2 g/dl (14.0-18.0); Imm Gran Abs Auto 0.01 X10*3/uL (0.00-0.03); Imm Gran Pct Auto 0.2 % (0.0-0.4); Lymphocytes Absolute Auto 1.5 X10*3/uL (1.2-4.9); Mean Corpuscular HGB Conc 34.8 g/dl (31.0-36.0); Mean Corpuscular Hemoglobin 29.8 pg (27.0-33.0); Mean Corpuscular Volume 85.7 fL (80.0-98.0); NRBC Abs Auto 0.000 X10*3/uL (0.0-0.012); NRBC Pct Auto 0.0 /100WBC (0.0-0.2); Platelet Count 128 X10*3/uL (160-400); Red Blood Count 4.76 X10*6/uL (4.60-5.80); White Blood Count 4.8 X10*3/uL (4.8-10.8)
[2025-02-17 07:54] LABS: Alanine Aminotransferase 50 U/L (0-40); Albumin Level 4.7 g/dL (3.5-5.0); Alkaline Phosphatase 123 U/L (39-117); Anion Gap 10 (12-20); Aspartate Amino Transferase 41 U/L (5-37); Blood Urea Nitrogen 18 mg/dL (9-16); Calcium 9.4 mg/dL (8.4-10.2); Carbon Dioxide 28 mmol/L (22-29); Chloride 105 mmol/L (96-108); Estimated Glomerular Filt Rate > 60; Magnesium 1.8 mg/dL (1.6-2.6); Potassium 4.4 mmol/L (3.3-5.1); Sodium 139 mmol/L (135-145); Total Protein 7.1 g/dL (6.5-8.0)
[2025-02-18 08:37] LABS: Tacrolimus Prograf 3.3 mcg/L
== END 2025-02-17 06:23 | disposition home or self-care (01) ==
LOC: HO.LABR 06:22
PROVIDERS: Internal Medicine; PCP Internal Medicine
DX: Z85.05 Personal history of malignant neoplasm of liver (principal); Z94.4 Liver transplant status; Z79.899 Other long term (current) drug therapy
CPT/HCPCS: 36415; 80053; 80197; 82105; 83735; 85025

== ENCOUNTER 2025-03-08 07:53 | Outpatient (AMB) | payer OTHER, SELFPAY ==
--- OUTSIDE RECORDS SUMMARY | 2024-05-26 05:15 | XMS_ITS ---
Author Organization [facility] Reji bill [place] Address [address] [facility] [place] [address] Care Team Providers Care Hide Measuring Machine Operator Name Role Phone Nura Connelly MD, Agustin Primary Care Provide r Unavailable Sun Jj Unavailable [phone] Yovanny Long Unavailable [phone] REASON FOR VISIT last visit pcp 12/31/23, [...] Orally Once a day Active Vitamin D3 477317 UNIT/GM as directed Active Losartan Potassium 25 [...] nsmoker Encounters Encounter Location Date [facility] [facility] [place] [address] 05/26/2024 Yovanny Long Onychomycosis B35.1 ; Pain [...] Details Follow Up: 2 Months, Reason: Provider Name:Sun kenney, 03/23/2025 10:00:00 AM, [address] [facility], [place], [address], Procedure Notes * Category Sub-Category Detail Notes [...] of a nail nipper and/or dremel-type grinder carbon plant, to a more viable healthy nail plate [...] to maintain effectiveness in symptomatic relief - 04174 Progress Notes * Edward JONDOB:[birth year] (60 yo M)Acc No.[id number]:05/26/2024 Progress Note Patient: Edward WINTER Provider: Kishan Long D.P.M. :1965 A ge:59 Y S ex:Male Date:05/26/2024 Address:[address] [place], [place] [phone] Pcp:Agustin Connelly MD Subjective: * Chief Complaints: [...] enies. C ardiovascular: Pacemaker d enies. 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 W PW d enies. C [...] as directed Orally , Taking Vitamin D3 707819 UNIT/GM Powder as directed , Taking Losartan [...] of a nail nipper and/or dremel-type grinder carbon plant, to a more viable healthy nail plate [...] to maintain effectiveness in symptomatic relief - 42113. * Procedure Codes: 1 1721 DEBRIDE NAIL, [...] 0 05/26/2024 Generated for Francisco reagan/Eloina/Samantha on: 05/08/2024 03:24 PM EST History and Physical Notes * Examination [...]
--- OUTSIDE RECORDS SUMMARY | 2024-08-29 06:00 | XMS_ITS ---
Author Organization [facility] Address [address] [facility] [place] [address] Care Team Providers Care Pharmacovigilance Scientist Name Role Phone Nura Connelly MD, Agustin Primary Care Provide r Unavailable Sun Jj Unavailable [phone] Encounters Encounter Location Date Provider Diagnosis [address] [address] 08/29/2024 Sun Jj Plan Of Treatment Next Appt Details Provider Name:Sun kenney, 03/23/2025 10:00:00 AM, [address] [facility], [place], [address], Progress Notes * Edward JONDOB:[birth year] (60 yo M)Acc No.[id number]:08/29/2024 Progress Note Patient: Edward WINTER Provider: Hola Jj DPM :1965 A ge:59 Y S ex:Male Date:08/29/2024 Address:[address] [place] [address] [address], [place] Pcp:Agustin Connelly MD Subjective: * Chief Complaints: [...] 08/29/2024 Generated for Francisco reagan/Eloina/Samantha on: 1 05/08/2024 03:24 PM EST
--- NOTE | 2025-03-08 08:02 | A.OFFVIS_ITS ---
Vital Signs 03/08/25 08:03 Height 5 ft 7 in Weight 197 lb 5.019 oz BMI 30.9 BP 134/70 Blood Pressure Location Lt brachial Position Sitting Pulse 64 Pulse Source Pulse Oximeter Pulse Oximetry (%) 97 Oxygen Delivery Method Room Air Intake Visit Reasons: f/u hypogonadism/gynecomastia Intake Note: Patient present today for follow up on Hypogonadism and Gynecomastia. Accounting Support Specialist Required: Yes Accounting Support Specialist Language: Ophthalmic Pathologist Services: Accounting Support Specialist Present Accounting Support Specialist [facility] Information Interpreted: non-clinical & clinical Accompanied by: Self / Same As Patient Allergies No Known Allergies (No Known Allergies*) Allergy (Verified 03/08/25 08:03) Medication List - Last Reconciled 03/08/25 by Freddy Sunshine MD bisacodyl (Dulcolax (bisacodyl)) 20 mg (4 x 5 mg) PO ONCE 1 day blood sugar diagnostic (FreeStyle Lite Strips) As directed cholecalciferol (vitamin D3) (Vitamin D3) 50 mcg PO DAILY ciprofloxacin HCl 250 mg PO DAILY 5 days insulin aspart U-100 (Novolog FlexPen U-100 Insulin aspart) 4 - 9 units subcut TIDAC insulin glargine (Lantus Solostar U-100 Insulin) 24 units subcut BEDTIME magnesium oxide (MagOx) 400 mg PO DAILY omeprazole 20 mg PO DAILY polyethylene glycol 3350 (Miralax) 17 grams PO DAILY 1 day sildenafil (Viagra) 100 mg PO DAILY PRN tramadol 1 tab PO Q8H PRN zolpidem 1 tab PO BEDTIME PRN HPI Comments Details: 60 YO Male with PMHx liver failure S/P transplant who is seen in consultation at the request of his PCP for Hypogonadism as well as gynecomastia. Gynecomastia developed 3 yrs ago . Is become better , Uncomfortable but no pain . There is no breast discharge First diagnosed with Hypogonadism after transplant with labs revealing low testosterone and high gonadotropins. Not Was started on Testosterone supplementation Currently not achieving spontaneous am erections, and able to achieve erection when desired with pump . Reports good libido. Decreased facial hair and shaving frequency. Denies any change in size or shape of testicles. Denies penile discharge or scrotal tenderness. Denies any history of mumps orchitis. Denies any head trauma. Denies history of JERMAIN. with 2 children who were conceived spontaneously. Sense of smell intact. Denies headache or visual changes, or galactorrhea. Denies orthostatic symptoms, weight loss. Denies change in size of hands or feet. Denies hair loss, weight gain, cold intolerance. History of DVT or PE: [] Denies use of opioids or Suboxone. Denies use of marijuana Labs: PSA CBC Workup including testicular ultrasound, beta hCG, testicular ultrasound negative for mass. As well as mammogram negative for mass [facility] Medical History (Updated 12/13/24 @ 08:33 by Freddy Sunshine MD) Gynecomastia Liver failure Hx of hepatitis Anxiety and depression Tubular adenoma of colon Diabetes 1.5, managed as type 2 Hx of substance abuse GERD (gastroesophageal reflux disease) Surgical History History of surgery on lower extremity History of local excision of skin lesion (04/16/23) Hx of colonoscopy Hx of esophagogastroduodenoscopy History of open reduction and internal fixation (ORIF) procedure History of appendectomy S/P liver transplant Family History Mother Cancer Father Diabetes Congenital heart problem Social History Household Members: None Are you a primary child care director to a significant other at home: No Do you presently have visiting nurse or other home services: No Alcohol intake: never Patient Tobacco Use Status: Former Tobacco user Tobacco use type: Cigarette Years Smoked: 15 Current occupational status: disabled Physical Exam Vital Signs: Last Vital Signs Pulse 64 03/08/25 08:03 BP 134/70 03/08/25 08:03 Pulse Ox 97 03/08/25 08:03 Oxygen Delivery Method Room Air 03/08/25 08:03 BMI result Body Mass Index 30.9 Const Other: Rectal examination shows normal smooth prostate Assessment & Plan Assessment & Plan (1) Gynecomastia: Code(s): N62 - Hypertrophy of breast Category: Medical Plan: This is a 60-year-old male with a history of gynecomastia and workup suggestive of primary hypogonadism. Plan is to initiate transdermal testosterone IE AndroGel starting with 2 pumps per day. Recheck testosterone, CBC and PSA in 6 weeks. Went over side effects of testosterone replacement including but not limited to unmasking of prostate cancer, prostatic enlargement as well as risk of DVT. This with the help of a parts interpreter. Orders: Orders Testosterone, Total 2 Months N62 - Hypertrophy of breast Hematocrit 2 Months N62 - Hypertrophy of breast Hemoglobin 2 Months N62 - Hypertrophy of breast Prostate Specific Antigen 2 Months N62 - Hypertrophy of breast Medications: New testosterone (AndroGel) apply 1 pump amount over max area of EACH upper arm and shoulder 2 pumps topical DAILY 75 grams 3RF Coding Level of Care Code Est Pt Level 3 (73266) Diagnoses Gynecomastia N62
[2025-03-08 08:03] VITALS: BP 134/70; PULSE 64; O2SAT 97; BMI 30.9
--- OUTSIDE RECORDS SUMMARY | 2025-03-08 15:24 | XMS_ITS | Encounter Summary ---
Author Organization [employer] Address [address] [place] [address] 7[address] [place] [address] Care Team Providers Care Fitness Club Manager Name Role Phone Agustin Marrero MD Primary Care Provide r Reason for Visit * Reason Comments Med Refill Encounter Details Date Type Department Care Team ([facility] st Contact Info) Description 12/24/2023 Refill [facility] MEDICINE [address] [place], [place] [phone] Agustin Marrero MD [address] [place], [place] [phone] Chronic midline low back pain without sciatica [...] Care Team (Late st Contact Info) Description 03/24/2025 9:00 AM EST Clinical Support [facility] MEDICINE [address] [place] [address] Shwetha Collado, KATALINA [address] [place] [address] 05/31/2025 8:00 AM EST Office Visit [facility] ADULT DENTAL [address] [place] [address] Paco, Catherine [address] [place] [address] documented as of this encounter Visit Diagnoses Diagnosis Chronic midline low back pain without sciatica documented in this encounter Additional Health Concerns Assessment Noted Time PHQ-9 Depression Total Score: 0 12/03/19 24 10:31 AM EDT documented as of this encounter Care Teams Fitness Club Manager Relationship Specialty Start Date End Date Agustin Marrero MD [address] [place] [address] PCP - General Internal Medicine 01/25/14 [facility] 06/13/16 documented as of this encounter
--- OUTSIDE RECORDS SUMMARY | 2025-03-08 15:24 | XMS_ITS | Encounter Summary ---
Author Organization [employer] Address [address] [place] [address] [address] [place] [address] Care Team Providers Care Back Up Worker Name Role Phone Agustin Marrero MD Primary Care Provide r Reason for Visit * Reason Onset Date Comments fyi 12/13/2024 Encounter Details Date Type Department Care Team ([facility] st Contact Info) Description 12/13/2024 Telephone [facility] MEDICINE [address] [place], [place] [phone] Agustin Marrero MD [address] [place], [place] [phone] fyi Social History Tobacco Use Types Packs/Day [...] 102/62 recorded. Call to Jessica DARDEN with [facility] at [phone], reports BP of 164/105 , pt had [...] to Edward Fonseca to triage below at [phone]. Reports took losartan after visiting nurse advised [...] to PCP as FYI and to advise [place] Team Primary care team nurses of plan [...] 8:16 AM EDT Tc from Jessica at [facility] called to inform that pt had a elevated diastolic bp , 164/105. Pt denies any cardiac symptoms. Contact Jessica at [phone] documented in this encounter Plan of Treatment Upcoming Encounters Date Type Department Care Team (Late st Contact Info) Description 03/24/2025 9:00 AM EST Clinical Support [facility] MEDICINE [address] [place] [address] Shwetha Collado RN [address] [place] [address] 05/31/2025 8:00 AM EST Office Visit [facility] ADULT DENTAL [address] [place] [address] Paco, Catherine [address] [place] [address] documented as of this encounter Visit Diagnoses Not on filedocumented in this encounter Additional Health Concerns Assessment Noted Time PHQ-9 Depression Total Score: 0 11/02/19 25 9:25 AM EDT documented as of this encounter Care Teams Back Up Worker Relationship Specialty Start Date End Date Agustin Marrero MD [address] [place] [address] PCP - General Internal Medicine 01/25/14 [facility] 06/13/16 documented as of this encounter
--- OUTSIDE RECORDS SUMMARY | 2025-03-08 15:24 | XMS_ITS | Encounter Summary ---
Author Organization [employer] Address [address] [place] [address] 7[address] [place] [address] Care Team Providers Care Mechanist Name Role Phone Agustin Marrero MD Primary Care Provide r Reason for Visit * Reason Comments Med Refill Encounter Details Date Type Department Care Team ([facility] st Contact Info) Description 11/02/2023 Refill [facility] MEDICINE [address] [place], [place] [phone] Lela Wu MD [address] [place], [place] [phone] Primary insomnia Social History Tobacco Use Types [...] Description 03/24/2025 9:00 AM EST Clinical Support [facility] MEDICINE [address] [place] [address] Shwetha Collado RN [address] [place] [address] 05/31/2025 8:00 AM EST Office Visit [facility] ADULT DENTAL [address] [place] [address] Paco, Catherine [address] [place] [address] documented as of this encounter Visit Diagnoses Diagnosis Primary insomnia Persistent disorder of initiating or maintaining sleep documented in this encounter Additional Health Concerns Assessment Noted Time PHQ-9 Depression Total Score: 5 06/16/19 24 9:35 AM EST documented as of this encounter Care Teams Mechanist Relationship Specialty Start Date End Date Agustin Marrero MD [address] [place] [phone] PCP - General Internal Medicine 01/25/14 [facility] 06/13/16 documented as of this encounter
--- OUTSIDE RECORDS SUMMARY | 2025-03-08 15:24 | XMS_ITS | Encounter Summary ---
Author Organization [employer] Address [address] [place] [address] [address] [place] [address] Care Team Providers Care Director Non Profit Name Role Phone Agustin Marrero MD Primary Care Provide r Encounter Details Date Type Department Care Team ([facility] st Contact Info) Description 12/24/2023 Telephone [facility] MEDICINE [address] [place], [place] [phone] Agustin Marrero MD [address] [place], [place] [phone] Social History Tobacco Use Types Packs/Day Years [...] Description 03/24/2025 9:00 AM EST Clinical Support [facility] MEDICINE [address] [place] [address] Shwetha Collado, KATALINA [address] [place] [address] 05/31/2025 8:00 AM EST Office Visit [facility] ADULT DENTAL [address] [place] [address] Paco, Catherine [address] [place] [address] documented as of this encounter Visit Diagnoses Not on filedocumented in this encounter Additional Health Concerns Assessment Noted Time PHQ-9 Depression Total Score: 0 12/03/19 10:31 AM EDT documented as of this encounter Care Teams Director Non Profit Relationship Specialty Start Date End Date Agustin Marrero MD [address] [place] [address] PCP - General Internal Medicine 01/25/14 [facility] 06/13/16 documented as of this encounter
--- OUTSIDE RECORDS SUMMARY | 2025-03-08 15:24 | XMS_ITS | Clinical Summary ---
Author Organization [employer] Address [address] [place] [address] 7[address] [place] [address] Care Team Providers Care Ticket Puller Name Role Phone Agustin Marrero MD Primary Care Provide r Allergies No known active allergies Medications * This document contains information received from the source organization and may not represent a complete record from that organization. Blood Glucose Monitoring Suppl (Keystone Technologyyle Dewey Lite) w/Device kit TEST 1 TIMES BY INTRADERMAL ROUTE EVERY DAY 022 Active Continuous Blood Gluc Junior Media Buyer (BioBlast PharmaStyle Arvin 2 [place]) device Active ferrous sulfate 325 (65 Fe) [...] OLINDA TABLETA TODOS LOS D CON LA ACTIVITIES MANAGER Active sodium polystyrene sulfonate (Kayexalate) powder TAKE [...] complication, with long-term current use of insulin ([facility]) USE 1 EACH DIRECTED THREE TIMES EVERY [...] stripIndications: Type 2 diabetes mellitus without complications ([facility]) USE TO TEST BLOOD SUGAR THREE TIMES DAILY 300 strip 3 025 Active cholecalciferol (Vitamin D3) 25 MCG (1000 UT) tabletIndications :Type 2 diabetes mellitus without complication, with long-term current use of insulin ([facility]) TOME 1 TABLETA POR VIA ORAL TODOS [...] opioid reversal. 2 each 1 025 Active gabapentin (Neurontin) 300 MG capsuleIndication s:Chronic midline low back pain without sciatica TAKE 1 CAPSULE BY MOUTH TWICE A DAY 60 capsule 025 Active Continuous Glucose Sensor (FreeStyle Arvin 2 Sensor) miscIndications:T ype 2 diabetes mellitus without complication, with long-term current use of insulin (HCC) USE DIRECTED EVERY 14 DAYS 2 each 2 025 Active traMADol (Ultram) 50 MG tabletIndications :Chronic midline low back pain without sciatica TAKE 1 TABLET (50 MG) BY MOUTH EVERY 8 (EIGHT) HOURS IF NEEDED FOR SEVERE PAIN. 84 tablet 025 Active NovoLOG FLEXPEN 100 UNIT/ML penIndications:Ty pe 2 diabetes mellitus without complication, with long-term current use of insulin ([facility]) Use Insulin as per sliding scale TID (BG 150-200mg/dL: 10 units, 201-250 : 12 units, 251-300: 14 units, 301-350: 16 units, 351-400 18 units, >400 20 units 15 mL 025 Active zolpidem (Ambien) 10 MG tabletIndications :Primary insomnia TOME 1 TABLETA POR VIA ORAL TODOS LOS QUINONES AL ACOSTARSE CUANDO SEA NECESARIO 30 tablet 025 Active Continuous Glucose Sensor (FreeStyle Arvin 2 Sensor) miscIndications:T ype 2 diabetes mellitus without complication, with long-term current use of insulin (HCC) USE DIRECTED EVERY 14 DAYS 2 each 2 024 2024 Discontinued NovoLOG FLEXPEN 100 UNIT/ML penIndications:Ty [...] NEEDED FOR SEVERE PAIN. 84 tablet 025 2024 Discontinued zolpidem (Ambien) [...] midline low back pain without sciatica Last [facility] Agreement: 09/01/23 Normal oral exam 12/17/2023 Class [...] for mildly dilated CBD. ERCP 11/21/2022 at [facility] showed single severe biliary stricture found in [...] CBD. 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 The stricture was post-surgical. A biliary sphinterotomy was performed. A temporary stent was placed in the CBP They recommended to repeat ERCP in 3 months to remove stent. Pt is already scheduled for 02/20/2023 for ENDOSCOPIC RETROGRADE CHOLANGIOPANCREATOGRAPHY WITH REMOVAL OF FOREIGN BODY(S)/STENT(S)/PANCREATIC DUCT(S) WITH POSSIBLE MODERATE SEDATION [51643 (CPT )] Partial edentulism 01/14/2023 Hospital discharge [...] CBD. Pt is s/p ERCP 11/21/2022 at [facility] Impression: A single severe biliary stricture found [...] local wound injections. He was seen by electronic security specialist at [facility] who discussed that he needed someone that [...] local wound injections. He was seen by electronic security specialist at [facility] who discussed that he needed someone that [...] male erectile dysfunction 04/22/2022 Assessment & Plan (02/23/2025 10:23 AM EST): Evaluated by Urology, s/p penile prosthetic. Last seen 11/01/2024 Assessment & Plan (07/05/2024 9:59 AM EDT): [...] was refer to the Pain Clinic at [facility] he has an appointment for 08/03/2022. He [...] 02/2021 Essential hypertension 04/21/2022 Assessment & Plan (02/23/2025 1:04 PM EST): Patient with Hypertension BP stable, reports BP at home always within normal limits Most recent electrolytes, Bun and Creatinine done on: Lab Results Component Value Date NA 141 11/01/2024 NA 137 04/06/2024 K 4.8 11/01/2024 K 4.5 04/06/2024 CL 106 11/01/2024 CL 106 04/06/2024 BUN 21 (H) 11/01/2024 BUN 16 04/06/2024 CREATININE 1.28 11/01/2024 CREATININE 1.02 04/06/2024 were within normal limits. Plan: Pt no longer on Losartan. will continue to monitor patient advised to adhere to a low sodium diet, encouraged about medication compliance, counseled about weight loss. Assessment & Plan (11/01/2024 9:32 AM EDT): [...] Hyponatremia 02/25/2019 Type 2 diabetes mellitus without complications 0 09/28/2018 Assessment & Plan (02/23/2025 1:03 PM EST): Pt is here for a f/u regarding his DM DM stable Patient is on a regimen of : Lantus 24 units at hs and Novolog flex pen using sliding scale TID (BG 150-200mg/dL: 10 units, 201-250 : 12 units, 251-300: 14 units, 301-350: 16 units, 351-400 18 units, >400 20 units He is under the care of [facility] Endocrinology given that he is a liver transplant patient. Hgb A1c 02/23/2025: 7.2 Eye exam ordered previous visit Microalbumin 04/06/2024 was 68 Foot check risk of zero Pt advised to: adhere to diabetic diet Plan: Continue current regimen Has a follow up with Endocrinology check your blood sugars regularly check your feet on a daily basis f/u with me in 4 months Assessment & Plan (11/01/2024 9:53 AM EDT): Pt is here for a f/u regarding his DM Patient is on a regimen of : Lantus 24 units at hs and Novolog flex pen using sliding scale TID (BG 150-200mg/dL: 10 units, 201-250 : 12 units, 251-300: 14 units, 301-350: 16 units, 351-400 18 units, >400 20 units He isunder the care of [facility] Endocrinology given that he is a liver [...] >400 20 units He was discharged from [facility] diabetes clinic due to non compliance. He isunder the care of [facility] Endocrinology given that he is a liver transplant patient, last seen 2024. Hgb A1c 07/05/2024: 7.2 from 7 Eye exam ordered previous visit Microalbumin 04/06/2024 was 68 Foot check risk of zero Pt advised to: adhere to diabetic diet Previous visit pt was referred to [facility] and [place] Plan: continue current regimen Pt [...] >400 20 units He was discharged from [facility] diabetes clinic due to non compliance. He isunder the care of [facility] Endocrinology given that he is a liver transplant patient, last seen 2024. Hgb A1c 04/05/2024: 7 from 7.4 Eye exam ordered previous visit Microalbumin 11/01/2020 was 43 , ordered today Foot check risk of zero Pt advised to: adhere to diabetic diet Previous visit pt was referred to [facility] and [place] Plan: continue current regimen Pt [...] >400 20 units He was discharged from [facility] diabetes clinic due to non compliance. He isunder the care of [facility] Endocrinology given that he is a liver transplant patient, last seen 04/21/2023. Hgb A1c 12/03/2023: 7.4 from 7.1 Eye exam ordered previous visit Microalbumin 11/01/2020 was 43 Foot check risk of zero Pt advised to: adhere to diabetic diet Previous visit pt was referred to [facility] and [place] Plan: continue current regimen Pt [...] >400 20 units He was discharged from [facility] diabetes clinic due to non compliance. He isunder the care of [facility] Endocrinology given that he is a liver transplant patient, last seen 04/21/2023. Hgb A1c 06/16/2023: 7.1 Eye exam ordered previous visit Microalbumin 11/01/2020 was 43 Foot check risk of zero Pt advised to: adhere to diabetic diet Previous visit pt was referred to [facility] and [place] Plan: continue current regimen Pt [...] >400 20 units He was discharged from [facility] diabetes clinic due to non compliance. He is supposed to be under the care of [facility] Endocrinology given that he is a liver transplant patient, last seen 08/01/2021. He had an appointment scheduled in August but he no showed. Today he tells me he will stay at [facility] Hgb A1c 02/12/2023 was 6.7 Eye exam ordered previous visit Microalbumin 11/01/2020 was 43 Foot check risk of zero Pt advised to: adhere to diabetic diet Previous visit pt was referred to [facility] and [place] Plan: continue current regimen Pt [...] >400 20 units He was discharged from [facility] diabetes clinic due to non compliance. He is supposed to be under the care of [facility] Endocrinology given that he is a liver transplant patient, last seen 08/01/2021. He had an appointment scheduled in August but he no showed. Today he tells me he will stay at [facility] Hgb A1c 09/02/2021 was 6.5 Eye exam ordered previous visit Microalbumin 11/01/2020 was 43 Foot check risk of zero Pt advised to: adhere to diabetic diet Previous visit pt was referred to [facility] and [place] Plan: continue current regimen check [...] >400 20 units He was discharged from [facility] diabetes clinic due to non compliance He is now under the care of [facility] Endocrinology given that he is a liver transplant patient, last seen 08/01/2021 Hgb A1c 09/02/2021 was 6.5 Eye exam ordered previous visit Microalbumin 11/01/2020 was 43 Foot check risk of zero Pt advised to: adhere to diabetic diet Previous visit pt was referred to [facility] and [place] Plan: continue current regimen check [...] >400 20 units He was discharged from [facility] diabetes clinic due to non compliance He is now under the care of [facility] Endocrinology given that he is a liver transplant patient, last seen 08/01/2021 Hgb A1c 04/22/2021 was 6.2 Eye exam ordered previous visit Microalbumin 11/01/2020 was 43 Foot check risk of zero Pt advised to: adhere to diabetic diet Previous visit pt was referred to [facility] and [place] Plan: continue current regimen check your blood sugars regularly check your feet on a daily basis f/u with me in 3 months Gynecomastia 03/02/2018 Assessment & Plan (02/23/2025 10:25 AM EST): Pt with hx of Liver dx s/p liver transplant. Pt interested in exploring surgical options for gynecomastia Plastic surgeon declined to see him until he gets an evaluation by Endocrinology. 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 Depression, recurrent 04/20/1959 Encounters * This document contains information received from the source organization and may not represent a complete record from that organization. Date Type Department Care Team Description 03/02/2025 Refill [facility] [address] [place] [address] Natasha Wall MD Primary insomnia 02/27/2025 Telephone [facility] [address] [facility] [address] Agustin Marrero MD Med Refill 02/27/2025 Telephone [facility] [address] [place] [address] Agustin Marrero MD Med Refill 02/26/2025 Refill [facility] [address] [place] [address] Lela Wu MD Chronic midline low back pain without sciatica; Type 2 diabetes mellitus without complication, with long-term current use of insulin (HCC) 02/26/2025 Refill [facility] [address] [place] [address] Natasha Wall MD Primary insomnia 02/23/2025 10:00 AM EST Office Visit [facility] [address] [place] [address] Agustin Marrero MD Type 2 diabetes mellitus without complication, with long-term current use of insulin (HCC) (Primary Dx); Essential hypertension; Other male erectile dysfunction; Gynecomastia; Depression, recurrent (CMS/HCC) 02/23/2025 Telephone [facility] [address] [place] [address] Kasey Chatman, KATALINA Durable Medical Equipment 02/23/2025 Travel 02/22/2025 Telephone [facility] [address] [place] [address] Theodora Wolf MA 02/16/2025 Patient Outreach [facility] [address] [place], [place] [phone] Agustin Marrero MD Pre-visit Planning (SDOH was already completed) 02/14/2025 Refill [facility] [address] [place] [address] Agustin Marrero MD Type 2 diabetes mellitus without complication, with long-term current use of insulin (HCC) 02/09/2025 Telephone [facility] [address] [facility] [place] [address] Agustin Marrero MD order 02/03/2025 Refill [facility] [address] [facility] [place] [address] Agustin Marrero MD Primary insomnia 01/28/2025 Refill [facility] [address] [facility] [place] [address] Lela Wu MD Chronic midline low back pain without sciatica 01/19/2025 Refill [facility] [address] [facility] [place] [address] Agustin Marrero MD Chronic midline low back pain without sciatica 01/18/2025 Telephone [facility] [address] [facility] [place] [address] Agustin Marrero MD 01/17/2025 Telephone [facility] [address] [facility] [place] [address] Agustin Marrero MD 01/13/2025 Refill [facility] [address] [facility] [place] [address] Agustin Marrero MD Type 2 diabetes mellitus without complication, with long-term current use of insulin ([facility]) 01/06/2025 11:30 AM EDT Clinical Support [facility] [address] [facility] [place] [address] Shwetha Collado RN Chronic right-sided thoracic back pain (Primary Dx) 01/06/2025 Refill [facility] [address] [place] [address] Shwetha Collado RN 01/06/2025 Travel 01/01/2025 Refill [facility] [address] [facility] [place] [place] [address] Agustin Marrero MD Gastroesophageal reflux disease, unspecified whether esophagitis present 12/27/2024 Refill [facility] [address] [facility] [place] [place] [address] Lela Wu MD Primary insomnia 12/23/2024 Orders Only [facility] External Provider, [facility] 12/20/2024 Refill [facility] [address] [place] [address] Agustin Marrero MD Chronic midline low back pain without sciatica 12/16/2024 Telephone [facility] [address] [place] [address] Agustin Marrero MD Appointment 12/13/2024 Telephone [facility] [address] [place] [address] Agustin Marrero MD fyi 12/10/2024 Refill [facility] [address] [facility], [place] [phone] Agustin Marrero MD from Last 3 Months Immunizations Immunization [...] Sign Reading Time Taken Comments Blood Pressure 140/86 02/23/2025 10:32 AM EST Pulse 68 02/23/2025 9:59 AM EST Temperature 36.2 C (97.1 F) 02/23/2025 9:59 AM EST Respiratory Rate 20 02/23/2025 9:59 AM EST Oxygen Saturation 98% 11/01/2024 9:28 AM EDT Inhaled Oxygen Concentration - - Weight 89.8 kg (198 lb) 02/23/2025 9:59 AM EST Height 170.2 cm (5' 7 ) 02/23/2025 9:59 AM EST Body Mass Index 31.01 02/23/2025 9:59 AM EST Plan of Treatment Upcoming Encounters Date Type Department Care Team (Late st Contact Info) Description 03/24/2025 9:00 AM EST Clinical Support [facility] [address] [place] [address] Shwetha Collado RN [address] [place] [address] 05/31/2025 8:00 AM EST Office Visit [facility] [address] [place] [address] Paco, Catherine [address] [place] [address] Health Maintenance Due Date Last Done Comments CT Colonography 1965 FIT DNA/Cologuard 1965 FIT 1965 FOBT 1965 HIV Screening 1965 Sigmoidoscopy 1965 Diabetes: Foot Exam 01/03/1974 Hepatitis C Screening 01/03/1982 RSV Patients and Patients Aged 60 years or older (1 - Risk 50-74 years 1-dose series) 01/03/2014 DTaP/Tdap/Td Vaccines (2 - Td or Tdap) 09/16/2023 09/15/2013, 10/26/2006 Dental X-Ray: Full Mouth 06/19/2024 06/18/2021 Colonoscopy 06/28/2024 06/28/2021 Colorectal Cancer Screening 06/28/2024 Eye Exam 09/22/2024 09/22/2022, 0608/2022, 09/22/2022, Additional history exists Dental X-Ray: Bitewings 10/13/2024 10/13/2023, 05/15 Dental Oral Exam 11/15/2024 05/17/2024, , 05/15/2022 COVID-19 Vaccine ( season) 2024 05/06/2022, 11/25/2021, 03/25/2021, Additional history exists Diabetes: Urine Protein Screening 04/06/2025 04/06/2024, 01/10/2022, 05/17/2021, Additional history exists Lipid Panel 04/06/2025 04/06/2024, 12/20, 11/01/2020 Dental Prophylaxis 05/20/2025 11/16/2024, 0 05/17/2024, 10/13/2023, Additional history exists Diabetes: Hemoglobin A1C 05/26/2025 025, 11/01/2024, 07/05/2024, Additional history exists Depression Screening 11/01/2025 11/01/2024, 11/02/19 25 SDOH Screening 11/01/2025 11/01/2024 Alcohol/Substance Use Screening 11/03/2025 11/03/2024 Disability Screening 11/03/2025 11/03/2024 Tobacco Screening 02/23/2026 02/23/2025 Hepatitis A Vaccines Completed 07/14/2017, 12/03/19 Hepatitis [...] Diagnosis Comments POCT GLYCATED HEMOGLOBIN, TOTAL Routine 02/23/2025 10:49 AM EST Type 2 diabetes mellitus without complication, with long-term current use of insulin (HCC) POCT GLUCOSE Routine 02/23/2025 10:49 AM EST Type 2 diabetes mellitus without complication, with long-term current use of insulin (HCC) US SCROTUM Routine 01/06/2025 12:43 PM EDT Gynecomastia POCT ZOË-14 URINE DRUG SCREEN Routine 01/06/2025 11:48 AM EDT Chronic right-sided thoracic back pain BI MAMMOGRAM DIAGNOSTIC TOMOSYNTHESIS BILATERAL Routine 12/23/2024 1:50 PM EDT PROPHYLAXIS - ADULT Routine 11/16/2024 1 0:00 AM EDT Dental calculus Dental plaque Generalized gingival recession Chronic periodontal disease PERIODIC ORAL EVALUATION - ESTABLISHED PATIENT Routine 05/17/2024 10:00 AM EST ALBUMIN, RANDOM URINE W/CREATININE Routine 04/06/2024 8:10 AM EST Type 2 diabetes mellitus without complication, with long-term current use of insulin (CMS/HCC) LIPID PANEL, STANDARD Routine 04/06/2024 8:10 AM EST Type 2 diabetes mellitus without complication, with long-term current use of insulin ([facility]) BITEWINGS - 4 RADIOGRAPHIC IMAGES Routine 10/13/2023 11:00 AM EDT HM COLONOSCOPY Routine 06/28/2021 from Last 3 Months or Most Recently Relevant to Health Maintenance Results * (ABNORMAL) POCT Hgb A1c (02/23/2025 10:49 AM EST) Hemoglobin A1C 7.2(A) 4.0 - 5.7 % QC Media Lot # [id number] Lot# Expiration Date [id number] Blood 02/23/2025 10:4 9 AM EST Agustin Connelly MD POINT OF CARE TEST EN TER/EDIT ORDERABLES Final Result * (ABNORMAL) POCT Glucose (02/23/2025 10:49 AM EST) Glucose Blood, POC 252(A) 60 - 200 mg/dL QC Media Lot # [id number] Lot# Expiration Date [id number] Blood Capillary blood specimen / Unknown 02/23/2025 10:49 AM EST Agustin Connelly MD POINT OF CARE TEST EN TER/EDIT ORDERABLES Final Result * US Scrotum (01/06/2025 12:43 PM EDT) Anatomical Region Laterality Modality Body Ultrasound 01/06/2025 12:4 3 PM EDT Narrative 01/06/2025 12:44 PM EDT [place] [address] Ultrasound Report Signed Patient: Edward Jon MR#: [id number] : 1965 Acct:[id number] Age/Sex: 60 / M ADM Date: 01/05/25 Loc: HO.US Attending Dr: Agustin Mix MD Ordering Physician: Agustin Mix MD Date of Service: 01/05/25 Procedure(s): US scrotum Accession Number(s): [id number] cc: Agustin Mix MD Reason for Exam: [...] This document has been electronically signed by: aFbiana Soliz MD on 01/06/2025 12:43:02 Dictated By: Fabiana Soliz MD Signed By: <Electronically signed by Fabiana Soliz MD in OV> 01/06/25 1243 DD/ 1243 TD/TT: 01/06/25 1243 Weigher Alloy: Procedure Note Donotuseinterpreter, Image - 01/06/2025 [place] [address] Ultrasound Report Signed Patient: Jose Armando Jon#: [id number] : 1965Acct:[id number] Age/Sex: 60 / MADM Date: 01/05/25 Loc: HO.US Attending Dr: Agustin Mix MD Ordering Physician: Agustin Mix MD Date of Service: 01/05/25 Procedure(s): US scrotum Accession Number(s): [id number] cc: Agustin Mix MD Reason for Exam: [...] 01/06/25 1243 DD/ 1243 TD/TT: 01/06/25 1243 Weigher Alloy: Agustin Connelly MD [facility] PROCEDURES Donte andrey Result - Final * [...] Unknown 01/06/2025 11:48 AM EDT Narrative Shwetha Collado RN - 01/06/2025 11:48 AM EDT .UTOX cup Lot#[id number] Exp. 01/24/26 Internal Pass Control Agustin Connelly MD POINT OF CARE TEST EN TER/EDIT ORDERABLES Final Result * BI Mammogram Diagnostic Tomosynthesis Bilateral (12/23/2024 1:50 PM EDT) Anatomical Region Laterality Modality Breast Bilateral Mammography 12/23/2024 1:50 PM EDT Narrative 12/23/2024 4:47 PM EDT [facility] [address] [place] [address] Mammography Report Signed Patient: Edward Jon MR#: [id number] : 1965 Acct:[id number] Age/Sex: 59 / M ADM Date: 12/23/24 Loc: .MAMMO Attending Dr: Freddy Sunshine MD Ordering Physician: Freddy Sunshine MD Results: 2Beni gn Findings Date of Service: 12/23/24 Follow Up: 1 Year From Orig ina Mammogram Procedure(s): MM tomosynthesis diagnostic BI Accession Number(s): [id number] cc: Freddy Sunshine MD; Agustin Mix MD [...] 12/23/24 1644 DD/ 1350 TD/TT: 12/23/24 1350 Weigher Alloy: Procedure Note Donotuseinterpreter, Image - 12/23/2024 [facility] [address] [place] [address] Mammography Report Signed Patient: Edward JonMR#: [id number] : 1965Acct:[id number] Age/Sex: 59 / MADM Date: 12/23/24 Loc: .MAMMO Attending Dr: Freddy Sunshine MD Ordering Physician: Freddy Sunshine MDResults: 2Beni gn Findings Date of Service: 12/23/24Follow Up: 1 Year From [facility] Mammogram Procedure(s): MM tomosynthesis diagnostic BI Accession Number(s): [id number] cc: Freddy Sunshine MD; Agustin Mix MD [...] 12/23/24 1644 DD/ 1350 TD/TT: 12/23/24 1350 Weigher Alloy: [facility] External Provider IMG BI PROCEDURES Final Result * (ABNORMAL) Albumin, Random Urine W/Creatinine (04/06/2024 8:10 AM EST) Creatinine, Urine 216.22 mg/dL [facility] Microalbumin Urine 68.0 mg/L [facility] Microalbum Creatinine Ratio Ur 31.4(H) <30 ug/mg cr [facility] Comment:Albumin/Creatinine R atio Reference Ranges: Normal: < 30 ug/mg creatinine Microalbuminuria: 30 - 300 ug/mg creatinineClinical Albuminuria: > 300 ug/mg creatinine Urine (Urine, Random) 04/06/2024 8:10 AM EST 04/06/2024 11:40 AM EST Agustin Connelly MD LAB URINE ORDERABLES Final Result [facility] [address] [place] [phone] * (ABNORMAL) Lipid Panel, Standard (04/06/2024 8:10 AM EST) Triglycerides 109 <150 mg/dL [facility] Comment:Desirable Triglyceri de: less than 150 mg/dLBorderline High Triglyceride 150-199 mg/dLHigh Triglyceride: 200-499 mg/dLVery High Triglyceride: greater than or equal to 5OO mg/dL Cholesterol 177 <200 mg/dL [facility] Comment:Desirable Cholestero l: less than 200 mg/dLBorderline High Cholesterol: 200-239 mg/dLHigh Cholesterol: greater than 239 mg/dL LDL Cholesterol Calculated 115(H) <100 mg/dL [facility] Comment:Desirable LDL: less than 100 mg/dLNear Optimal/Above Optimal LDL: 110- 129 mg/dLBorderline High LDL: 130-159 mg/dLHigh LDL: 160-189 mg/dLVery High LDL: greater than or equal to 190 mg/dL HDL Cholesterol 41 >40 mg/dL [facility] Comment:Desirable HDL: great er than 40 mg/dL Note: This HDL assay may give artificially low results in patients with liver disease. Blood Venous blood specimen / Unknown 04/06/2024 8:10 AM EST 04/06/2024 11:51 AM EST us Agustin Connelly MD LAB BLOOD ORDERABLES Final Result [facility] [address] [place] [address] [phone] * Hm Colonoscopy (06/28/2021) Colonoscopy Normal Normal 06/28/2021 Narrative Shanel Bo - 06/28/2021 9:58 AM EST Recommended 3 year follow up per GI notes ( [facility] ) Historical Provider HEALTH MAINTENANCE Edited Result - Final from Last 3 Months or Most Recently Relevant to Health Maintenance Insurance [facility] ONE CARE < [id number] [facility] [address] [place] DENTAL [facility] Care Teams Ticket Puller Relationship Specialty Start Date End Date Agustin Marrero MD [address] [place] [address] PCP - General Internal Medicine 01/25/14 [facility] 06/13/16
--- OUTSIDE RECORDS SUMMARY | 2025-03-08 15:24 | XMS_ITS | Encounter Summary ---
Author Organization [employer] Address [address] [place] [address] 7 [place] [address] Care Team Providers Care Fire Prevention Research Engineer Name Role Phone Agustin Marrero MD Primary Care Provide r Reason for Visit * Reason Onset Date Comments Med Refill 03/01/2024 Encounter Details Date Type Department Care Team ([facility] st Contact Info) Description 03/01/[address] [facility] MEDICINE [address] [place], [place] [phone] Agustin Marrero MD [address] [place], [place] [phone] Med Refill Social History Tobacco Use Types [...] 2:22 PM EST Medication was sent to [facility]#[id number] on 02/29/24. * Telephone Encounter - Manjeet Mclaughlin - 03/01/2024 2:17 PM EST TC from pt requesting medication refill. Medications needing refill : 1- zolpidem (Ambien) 10 MG tablet To be sent to: [facility]/pharmacy #[id number] documented in this encounter Plan of Treatment Upcoming Encounters Date Type Department Care Team (Late st Contact Info) Description 03/24/2025 9:00 AM EST Clinical [address] [facility] MEDICINE [address] [place] [address] Shwetha Collado RN [address] [place] [address] 05/31/2025 8:00 AM EST Office Visit [facility] ADULT DENTAL [address] [place] [address] Catherine Antonio [address] [place] [address] documented as of this encounter Visit Diagnoses Not on filedocumented in this encounter Additional Health Concerns Assessment Noted Time PHQ-9 Depression Total Score: 0 12/03/19 10:31 AM EDT documented as of this encounter Care Teams Fire Prevention Research Engineer Relationship Specialty Start Date End Date Agustin Marrero MD [address] [place] [address] PCP - General Internal Medicine 01/25/14 [facility] 06/13/16 documented as of this encounter
--- OUTSIDE RECORDS SUMMARY | 2025-03-08 15:24 | XMS_ITS | Encounter Summary ---
Author Organization [employer] Address [address] [place] [address] 7t [place] [address] Care Team Providers Care Laboratory Animal Facility Supervisor Name Role Phone Agustin Marrero MD Primary Care Provide r Reason for Visit * Reason Comments Med Refill Encounter Details Date Type Department Care Team ([facility] st Contact Info) Description 2024 Refill [facility] MEDICINE [address] [place], [place] [phone] Agustin Marrero MD [address] [place] [address] Social History Tobacco Use Types Packs/Day Years [...] Description 03/24/2025 9:00 AM EST Clinical Support [facility] MEDICINE [address] [place] [address] Shwetha Collado, KATALINA [address] [place] [address] 05/31/2025 8:00 AM EST Office Visit [facility] ADULT DENTAL [address] [place] [address] Paco, Catherine [address] [place] [address] documented as of this encounter Visit Diagnoses Not on filedocumented in this encounter Additional Health Concerns Assessment Noted Time PHQ-9 Depression Total Score: 0 12/03/19 24 10:31 AM EDT documented as of this encounter Care Teams Laboratory Animal Facility Supervisor Relationship Specialty Start Date End Date Agustin Marrero MD [address] [place] [address] PCP - General Internal Medicine 01/25/14 [facility] 06/13/16 documented as of this encounter
--- OUTSIDE RECORDS SUMMARY | 2025-03-08 15:24 | XMS_ITS | Encounter Summary ---
Author Organization [employer] Address [address] [place] [address] 7 [place] [address] Care Team Providers Care Safety Spec Name Role Phone Agustin Marrero MD Primary Care Provide r Reason for Visit * Reason Onset Date Comments Med Refill 03/01/2024 Encounter Details Date Type Department Care Team ([facility] st Contact Info) Description 03/01/2024 Telephone [facility] MEDICINE [address] [place], [place] [phone] Agustin Marrero MD [address] [place], [place] [phone] Med Refill Social History Tobacco Use Types [...] 2:24 PM EST Received fax from [facility] requesting script clarification need directions. * Telephone Encounter - Manjeet Mclaughlin - 03/01/2024 2:21 PM EST TC from pt requesting medication refill. Medications needing refill : traMADol (Ultram) 50 MG table To be sent to: [facility]/pharmacy #[id number] documented in this encounter Plan of Treatment Upcoming Encounters Date Type Department Care Team (Late st Contact Info) Description 03/24/2025 9:00 AM EST Clinical Support [facility] MEDICINE [address] [place] [address] Shwetha Collado RN 505 [place] [address] 05/31/2025 8:00 AM EST Office Visit [facility] ADULT DENTAL [address] [place] [address] Catherine Antonio [address] [place] [address] documented as of this encounter Visit Diagnoses Not on filedocumented in this encounter Additional Health Concerns Assessment Noted Time PHQ-9 Depression Total Score: 0 12/03/19 10:31 AM EDT documented as of this encounter Care Teams Safety Spec Relationship Specialty Start Date End Date Agustin Marrero MD [address] [place] [address] PCP - General Internal Medicine 01/25/14 [facility] 06/13/16 documented as of this encounter
--- OUTSIDE RECORDS SUMMARY | 2025-03-08 15:24 | XMS_ITS | Encounter Summary ---
Author Organization [employer] Address [address] [place] [address] 7t [place] [address] Care Team Providers Care Cloth Trimmer Hand Name Role Phone Agustin Marrero MD Primary Care Provide r Reason for Visit * Reason Comments Med Refill Encounter Details Date Type Department Care Team ([facility] st Contact Info) Description 10/28/2023 Refill [facility] MEDICINE [address] [place], [place] [phone] Lela Wu MD [address] [place], [place] [phone] Primary insomnia Social History Tobacco Use Types [...] Description 03/24/2025 9:00 AM EST Clinical Support [facility] MEDICINE [address] [place] [address] Shwetha Collado RN 505 [place] [address] 05/31/2025 8:00 AM EST Office Visit [facility] ADULT DENTAL [address] [place] [address] Paco, Catherine [address] [place] [address] documented as of this encounter Visit Diagnoses Diagnosis Primary insomnia Persistent disorder of initiating or maintaining sleep documented in this encounter Additional Health Concerns Assessment Noted Time PHQ-9 Depression Total Score: 5 06/16/19 24 9:35 AM EST documented as of this encounter Care Teams Cloth Trimmer Hand Relationship Specialty Start Date End Date Agustin Marrero MD [address] [place] [address] PCP - General Internal Medicine 01/25/14 [facility] 06/13/16 documented as of this encounter
--- OUTSIDE RECORDS SUMMARY | 2025-03-08 15:25 | XMS_ITS | Encounter Summary ---
Author Organization [facility] Address [address] [place] [address] Care Team Providers Care Cupboard Builder Name Role Phone Agustin Mix Primary Care Provider + Encounter Details Date Type Department Care Team (Late st Contact Info) Description 07/23/2023 Orders Only [facility] Interventional Radiology [address] [place] [address] Pawel Sanchez MD [address] [place] [address] Social History Tobacco Use Types Packs/Day Years [...] Info) Description 03/27/2025 10:30 AM EST Follow-Up [facility] Liver Transplant Services [address] [place] [address] Dylan Phelps MD [address] [place] [address] documented as of this encounter Visit Diagnoses Not on filedocumented in this encounter Care Teams Cupboard Builder Relationship Specialty Start Date End Date Agustin Mix [address] [place] [address] PCP - General Internal Medicine 04/15/17 documented as of this encounter
--- OUTSIDE RECORDS SUMMARY | 2025-03-08 15:25 | XMS_ITS | Patient Health Record ---
Author Organization [facility] Address [address] [facility] [place] [address] Care Team Providers Care Receiver Bulk System Name Role Phone Nura Connelly MD, Agustin Primary Care Provide r Unavailable Sun Jj Unavailable [phone] Yovanny Long Unavailable [phone] Allergies No Known Allergies Results Component Value [...] MG as directed Orally Active Vitamin D3 106753 UNIT/GM as directed Active Tacrolimus 1 MG [...] Problem Acquired hammer toe of right foot (7808709625638253 ) Other hammer toe(s) (acquired), right foot (M20.41) Active confirmed Problem Acquired hammer toe of left foot (8909154363629411 ) Other hammer toe(s) (acquired), left foot (M20.42) Active confirmed Problem Polyneuropathy due to type 2 diabetes mellitus (117757224) Type 2 diabetes mellitus with diabetic polyneuropathy (E11.42) Active confirmed Vital Signs Heart Rate 68 /min 06/17/2024 Blood pressure diastolic 81 mm Hg 01/12/2025 Height 5ft 7in in 01/12/2025 Blood pressure systolic 134 mm Hg 01/12/2025 Weight 205 lbs 01/12/2025 BMI 32.1 kg/m2 01/12/2025 Procedures Procedure Date Ordered Date Performed Result Body Sit e 19905-XWXBOPH NAIL, 6 OR MORE 03/10/2024 N/A 75431-VDZJYED NAIL, 6 OR MORE 06/17/2024 N/A Encounters Encounter Location Date Provider Diagnosis [address] [address] 03/10/2024 Yovanny Long Onychomycosis B35.1 ; Xerosis of skin L85.3 ; Pain in right toe(s) M79.674 and Pain in left toe(s) M79.[address] [facility] [address] 06/17/2024 Yovanny Long Onychomycosis B35.1 and Type 2 diabetes mellitus with other diabetic neurological complication E11.[facility] [address] 11/03/2024 Sun Jj Type 2 diabetes mellitus with diabetic polyneuropathy E11.42 ; Other hammer toe(s) (acquired), right foot M20.41 ; Tinea unguium B35.1 ; Tinea pedis of both feet B35.3 and Other hammer toe(s) (acquired), left foot M20.[address] [address] 01/12/2025 Sun Jj Other hammer toe(s) (acquired), right foot M20.41 ; Tinea pedis of both feet B35.3 ; Type 2 diabetes mellitus with diabetic polyneuropathy E11.42 ; Tinea unguium B35.1 and Other hammer toe(s) (acquired), left foot M20.[address] [address] 03/10/2024 [facility]ovanny Long [facility] [address] [facility] [facility] [address] 11/03/2024 Sun Jj Assessments Encounter Date Diagnosis (ICD Code) Assessment Notes Treatment Notes Treatment Clinical Notes Section Notes 03/10/2024 Xerosis of skin (ICD-10 - L85.3) Application of [place]-Soothe skin lotion to his feet 03/10/2024 Onychomycosis [...] M20.42) 05/26/2024 Other 06/17/2024 Other Application of [place]-Soothe skin lotion to his feet Plan Of Treatment Pending Test Test Name Order Date [id number] NAIL, 6 OR MORE 03/10/2024 36349-ZYIDFOF NAIL, 6 OR MORE 06/17/2024 Next Appt Details Provider Name:Sun kenney, 03/23/2025 10:00:00 AM, [address] [facility], [place], [address], Insurance Providers Payer Name Payer Address Payer Phone Subscriber Number Group Number Insured Name Patient Relationship to Insured Coverage Start Date Coverage End Date [facility] [employer] Claims [address] [place] [id number] Edward Jon Self - patient is the insured Medical (General) History Medical History History ICD Code Back,Hip,and Knee pain Broken bones Cataracts covid-19 Dementia Depression Diabetic Gall bladder problems Hiatal hernia High Blood Pressure Liver disease Psychiatric disorder Surgical History Surgery Date(Month/Year) back surgery 02/2024
--- OUTSIDE RECORDS SUMMARY | 2025-03-08 15:25 | XMS_ITS | Encounter Summary ---
Author Organization [employer] Address [address] [place] [address] 7t [place] [address] Care Team Providers Care Glass Blower Helper Name Role Phone Agustin Marrero MD Primary Care Provide r Reason for Visit * Reason Comments Med Refill Encounter Details Date Type Department Care Team ([facility] st Contact Info) Description 10/20/[address] [facility] MED & PEDS [address] [place], [place] [phone] Agustin Marrero MD [address] [place] [address] Chronic midline low back pain without sciatica [...] 03/24/2025 9:00 AM EST Clinical Support [facility] MEDICINE [address] [place] [address] Shwetha Collado RN 505 [place] [address] 05/31/2025 8:00 AM EST Office Visit [facility] ADULT DENTAL [address] [place] [address] Matty Antonioaris [address] [place] [address] documented as of this encounter Visit Diagnoses Diagnosis Chronic midline low back pain without sciatica documented in this encounter Additional Health Concerns Assessment Noted Time PHQ-9 Depression Total Score: 5 06/16/19 9:35 AM EST documented as of this encounter Care Teams Glass Blower Helper Relationship Specialty Start Date End Date Agustin Marrero MD [address] [place] [address] PCP - General Internal Medicine 01/25/14 [facility] 06/13/16 documented as of this encounter
--- OUTSIDE RECORDS SUMMARY | 2025-03-08 15:25 | XMS_ITS | Encounter Summary ---
Author Organization [employer] Address [address] [place] [address] 7 [place] [address] Care Team Providers Care Box Maker Wood Name Role Phone Agustin Marrero MD Primary Care Provide r Reason for Visit * Reason Onset Date Comments Med Refill 09/05/2024 Encounter Details Date Type Department Care Team ([facility] st Contact Info) Description 09/05/2024 Telephone [facility] MEDICINE [address] [place], [place] [phone] Agustin Marrero MD [address] [place], [place] [phone] Med Refill Social History Tobacco Use Types [...] To be sent to: [facility]/pharmacy #[id number] [place] [address] documented in this encounter Plan of Treatment Upcoming Encounters Date Type Department Care Team (Late st Contact Info) Description 03/24/2025 9:00 AM EST Clinical Support [facility] MEDICINE [address] [place], [place] [phone] Shwetha Collado RN [address] [place] [address] 05/31/2025 8:00 AM EST Office Visit [facility] ADULT DENTAL 230 [place], [place] [phone] Catherine Antonio [address] [place] [address] documented as of this encounter Visit Diagnoses Not on filedocumented in this encounter Additional Health Concerns Assessment Noted Time PHQ-9 Depression Total Score: 0 08/15/20 24 10:31 AM EDT documented as of this encounter Care Teams Box Maker Wood Relationship Specialty Start Date End Date Agustin Marrero MD [address] [place] [address] PCP - General Internal Medicine 01/25/14 [facility] 06/13/16 documented as of this encounter
--- OUTSIDE RECORDS SUMMARY | 2025-03-08 15:25 | XMS_ITS | Encounter Summary ---
Author Organization [facility] Address [address] [place] [address] Care Team Providers Care Licensed Mental Health Counselor Name Role Phone Agustin Mix Primary Care Provider + Encounter Details Date Type Department Care Team (Late st Contact Info) Description 06/28/2020 Telephone [facility] Central Scheduling Department [address] [place] [address] Telephone Intake, Staff Social History Tobacco Use [...] and can be reached at phone number [phone]. Thank you documented in this encounter Plan of Treatment Upcoming Encounters Date Type Department Care Team (Late st Contact Info) Description 03/27/2025 10:30 AM EST Follow-Up [facility] Liver Transplant Services [address] [place], [place] [phone] Dylan Phelps MD 55 [place], [place] [phone] documented as of this encounter Visit Diagnoses Not on filedocumented in this encounter Care Teams Licensed Mental Health Counselor Relationship Specialty Start Date End Date Agustin Mix [address] [place] [address] PCP - General Internal Medicine 04/15/17 documented as of this encounter
--- OUTSIDE RECORDS SUMMARY | 2025-03-08 15:25 | XMS_ITS | Encounter Summary ---
Author Organization [employer] Address [address] [place] [address] 7 [place] [address] Care Team Providers Care Counselor Aid Name Role Phone Agustin Marrero MD Primary Care Provide r Reason for Visit * Reason Comments Med Refill Encounter Details Date Type Department Care Team (Late st Contact Info) Description 05/14/2022 Refill [facility] MEDICINE [address] [place], [place] [phone] Agustin Marrero MD [address] [place] [address] Chronic midline low back pain without sciatica [...] Department Care Team (Late Contact Info) Description 03/24/2025 9:00 AM EST Clinical Support [facility] MEDICINE [address] [place] [address] Shwetha Collado, RN [address] [place] [address] 05/31/2025 8:00 AM EST Office Visit [facility] ADULT DENTAL [address] [place] [address] Matty Antonioaris [address] [place] [address] documented as of this encounter Visit Diagnoses Diagnosis Chronic midline low back pain without sciatica documented in this encounter Care Teams Counselor Aid Relationship Specialty Start Date End Date Agustin Marrero MD [address] [place] [address] PCP - General Internal Medicine 01/25/14 [facility] 06/13/16 documented as of this encounter
--- OUTSIDE RECORDS SUMMARY | 2025-03-08 15:25 | XMS_ITS | Encounter Summary ---
Author Organization [employer] Address [address] [place] [address] 7 [place] [address] Care Team Providers Care Right Of Way Clearer Name Role Phone Agustin Marrero MD Primary Care Provide r Reason for Visit * Reason Onset Date Comments Med Refill 10/04/2024 Encounter Details Date Type Department Care Team ([facility] st Contact Info) Description 10/04/2024 Telephone [facility] MEDICINE [address] [place], [place] [phone] Agustin Marrero MD [address] [place], [place] [phone] Med Refill Social History Tobacco Use Types [...] 10 MG tablet To be sent to: [facility]/pharmacy #[id number] [address] documented in this encounter Plan of Treatment Upcoming Encounters Date Type Department Care Team (Late st Contact Info) Description 03/24/2025 9:00 AM EST Clinical Support [facility] MEDICINE [address] [place] [address] Shwetha Collado RN [address] [place] [address] 05/31/2025 8:00 AM EST Office Visit [facility] ADULT DENTAL [address] [place] [address] Catherine Antonio [address] [place] [address] documented as of this encounter Visit Diagnoses Not on filedocumented in this encounter Additional Health Concerns Assessment Noted Time PHQ-9 Depression Total Score: 0 12/03/19 24 10:31 AM EDT documented as of this encounter Care Teams Right Of Way Clearer Relationship Specialty Start Date End Date Agustin Marrero MD [address] [place] [address] PCP - General Internal Medicine 01/25/14 [facility] 06/13/16 documented as of this encounter
--- OUTSIDE RECORDS SUMMARY | 2025-03-08 15:25 | XMS_ITS | Encounter Summary ---
Author Organization [facility] Address [address] [place] [address] Care Team Providers Care Tank Builder And Erector Name Role Phone Agustin Mix Primary Care Provider + Encounter Details Date Type Department Care Team (Late st Contact Info) Description 01/13/2020 Orders Only [facility] 2 Rad Act 1 [address] [place] [address] Pawel Sanchez MD [address] [place] [address] Social History Tobacco Use Types Packs/Day Years [...] Info) Description 03/27/2025 10:30 AM EST Follow-Up [facility] Liver Transplant Services [address] [place] [address] Dylan Phelps MD [address] [place] [address] documented as of this encounter Visit Diagnoses Not on filedocumented in this encounter Additional Health Concerns Infection Onset Date Last Indicated Resolved Time COVID-19 - Suspected infection 03/05/2020 03/17/2020 03/17/2020 7:55 PM EST COVID-19 - Confirmed infection 05/01/2020 05/07/2020 06/01/2020 5:06 PM EST COVID-19 - Suspected infection 05/10/2020 05/10/2020 05/24/2020 10:34 PM EST documented as of this encounter Care Teams Tank Builder And Erector Relationship Specialty Start Date End Date Agustin Mix [address] [place] [address] PCP - General Internal Medicine 04/15/17 documented as of this encounter
--- OUTSIDE RECORDS SUMMARY | 2025-03-08 15:25 | XMS_ITS | Encounter Summary ---
Author Organization [employer] Address [address] [place] [address] 7 [place] [address] Care Team Providers Care Defense Attorney Name Role Phone Agustin Marrero MD Primary Care Provide r Reason for Visit * Reason Onset Date Comments Med Refill 10/04/2024 Encounter Details Date Type Department Care Team ([facility] st Contact Info) Description 10/04/2024 Telephone [facility] MEDICINE [address] [place], [place] [phone] Agustin Marrero MD [address] [place], [place] [phone] Med Refill Social History Tobacco Use Types [...] MG tablet To be sent to: [facility]/pharmacy #[address] [place] [address] documented in this encounter Plan of Treatment Upcoming Encounters Date Type Department Care Team (Late st Contact Info) Description 03/24/2025 9:00 AM EST Clinical Support [facility] MEDICINE [address] [place] [address] Shwetha Collado RN [address] [place] [address] 05/31/2025 8:00 AM EST Office Visit [facility] ADULT DENTAL [address] [place] [address] Catherine Antonio [address] [place] [address] documented as of this encounter Visit Diagnoses Not on filedocumented in this encounter Additional Health Concerns Assessment Noted Time PHQ-9 Depression Total Score: 0 12/03/19 24 10:31 AM EDT documented as of this encounter Care Teams Defense Attorney Relationship Specialty Start Date End Date Agustin Marrero MD [address] [place] [address] PCP - General Internal Medicine 01/25/14 [facility] 06/13/16 documented as of this encounter
--- OUTSIDE RECORDS SUMMARY | 2025-03-08 15:25 | XMS_ITS ---
Author Organization [facility] Address [address] [place] [address] Care Team Providers Care Felt Pad Cutter Name Role Phone Agustin Mix Primary Care Provider + Transplant Episode Liver Recipient [facility] ([place], [place]) - [facility] Organ Received: Liver Transplanted on 08/09/2019 Marked as Active Follow-up on 08/09/2019 Liver CoordinatorErika Bonds RN Phone: N/A Fax: N/A Email: N/A [place] Organ Diagnosis Organ Primary Contributory Liver Alcoholic [...] Negative SARS CoV-2 No results on file CMV LANDRY No results on file HIV LANDRY HIV LANDRY: Negative HCV LANDRY HCV LANDRY: Negative Care Team Name Role Phone Fax Email Erika Bonds RN Liver Coordinator N/A N/A N/A Dylan Phelps MD Medical Transcription Supervisor [phone] [email or web address] Sarai Diaz Referring Physician [phone] N/A Events Post-Transplant Pre-Transplant Admitted: 08/09/2019 Referred: 09/08/2016 Transplanted: 08/09/2019 Evaluation began: 7 Discharged: 08/25/2019 Committee: 10/24/2016 Center waitlisted: 7 Appointments (02/05/2025 - 04/07/2025) When With Visit Type Description 02/06/2025 Transplant - Colton Phelps Follow Up Cancel ed (Patient - Transportation) 03/27/2025 Transplant - Colton Phelps Follow Up
--- OUTSIDE RECORDS SUMMARY | 2025-03-08 15:25 | XMS_ITS | Encounter Summary ---
Author Organization [facility] Address [address] [place] [address] Care Team Providers Care Director Of Psychiatry Name Role Phone Agustin Mix Primary Care Provider + Encounter Details Date Type Department Care Team (Late st Contact Info) Description 01/21/2017 Transplant Conversio n Encounter [facility] Health Information Management [address] [place] [address] Provider, Historical [facility] Social History Tobacco Use Types Packs/Day [...] Info) Description 03/27/2025 10:30 AM EST Follow-Up [facility] Liver Transplant Services [address] [place] [address] Dylan Phelps MD [address] [place] [address] documented as of this encounter Visit Diagnoses Not on filedocumented in this encounter Additional Health Concerns Infection Onset Date Last Indicated Resolved Time 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 + BC at [facility] > 6 months ago - can D/C contact isolation 01/20/2019 02/10/2019 08/10/2019 9:27 AM E DT COVID-19 - Suspected infection 03/05/2020 03/17/2020 03/17/2020 7:55 PM EST COVID-19 - Confirmed infection 05/01/2020 05/07/2020 06/01/2020 5:06 PM EST COVID-19 - Suspected infection 05/10/2020 05/10/2020 05/24/2020 10:34 PM EST documented as of this encounter Care Teams Director Of Psychiatry Relationship Specialty Start Date End Date Agustin Mix [address] [place] [address] PCP - General Internal Medicine 04/15/17 documented as of this encounter
--- OUTSIDE RECORDS SUMMARY | 2025-03-08 15:25 | XMS_ITS | Encounter Summary ---
Author Organization [employer] Address [address] [place] [address] 7 [place] [address] Care Team Providers Care Warper Fixer Name Role Phone Agustin Marrero MD Primary Care Provide r Reason for Visit * Reason Onset Date Comments Med Refill 09/13/2024 Encounter Details Date Type Department Care Team ([facility] st Contact Info) Description 09/13/2024 Telephone [facility] MEDICINE [address] [place], [place] [phone] Agustin Marrero MD [address] [place], [place] [phone] Med Refill Social History Tobacco Use Types [...] 300 MG capsule To be sent to: [facility]/pharmacy [address] [place] [address] documented in this encounter Plan of Treatment Upcoming Encounters Date Type Department Care Team (Late st Contact Info) Description 03/24/2025 9:00 AM EST Clinical Support [facility] MEDICINE [address] [place] [address] Shwetha Collado RN [address] [place] [address] 05/31/2025 8:00 AM EST Office Visit [facility] ADULT DENTAL [address] [place] [address] Catherine Antonio [address] [place] [address] documented as of this encounter Visit Diagnoses Not on filedocumented in this encounter Additional Health Concerns Assessment Noted Time PHQ-9 Depression Total Score: 0 12/03/19 24 10:31 AM EDT documented as of this encounter Care Teams Warper Fixer Relationship Specialty Start Date End Date Agustin Marrero MD [address] [place] [address] PCP - General Internal Medicine 01/25/14 [facility] 06/13/16 documented as of this encounter
--- OUTSIDE RECORDS SUMMARY | 2025-03-08 15:25 | XMS_ITS | Encounter Summary ---
Author Organization [facility] Address [address] [place] [address] Care Team Providers Care Sys Dir Name Role Phone Agustin Mix Primary Care Provider + Encounter Details Date Type Department Care Team (Late st Contact Info) Description 01/01/2021 Orders Only [facility] Nuclear Medicine [address] [place] [address] Sreedhar Sotelo MD [address] [place], [place] [phone] Social History Tobacco Use Types Packs/Day Years [...] Info) Description 03/27/2025 10:30 AM EST Follow-Up [facility] Liver Transplant Services [address] [place], [place] [phone] Dylan Phelps MD [address] [place] [address] documented as of this encounter Visit Diagnoses Not on filedocumented in this encounter Care Teams Sys Dir Relationship Specialty Start Date End Date Agustin Mix [address] [place] [address] PCP - General Internal Medicine 04/15/17 documented as of this encounter
--- OUTSIDE RECORDS SUMMARY | 2025-03-08 15:26 | XMS_ITS | Encounter Summary ---
Author Organization [employer] Address [address] [place] [address] 7 [place] [address] Care Team Providers Care Clerk Of Scales Name Role Phone Agustin Marrero MD Primary Care Provide r Reason for Visit * Reason Onset Date Comments Med Refill 10/16/2022 Encounter Details Date Type Department Care Team ([facility] st Contact Info) Description 10/16/2022 Telephone [facility] MEDICINE [address] [place], [place] [phone] Agustin Marrero MD [address] [place], [place] [phone] Med Refill Social History Tobacco Use Types [...] Description 03/24/2025 9:00 AM EST Clinical Support [facility] MEDICINE [address] [place] [address] Shwetha Collado RN [address] [place] [address] 05/31/2025 8:00 AM EST Office Visit [facility] ADULT DENTAL [address] [place] [address] Paco, Catherine [address] [place] [address] documented as of this encounter Visit Diagnoses Not on filedocumented in this encounter Care Teams Clerk Of Scales Relationship Specialty Start Date End Date Agustin Marrero MD [address] [place] [address] PCP - General Internal Medicine 01/25/14 [facility] 06/13/16 documented as of this encounter
--- OUTSIDE RECORDS SUMMARY | 2025-03-08 15:26 | XMS_ITS | Encounter Summary ---
Author Organization [employer] Address [address] [place] [address] 7 [place] [address] Care Team Providers Care Director Of Financial Reporting Name Role Phone Agustin Marrero MD Primary Care Provide r Reason for Visit * Reason Onset Date Comments Medication Question 05/11/2024 Encounter Details Date Type Department Care Team ([facility] st Contact Info) Description 05/11/2024 Telephone [facility] MEDICINE [address] [place], [place] [phone] Agustin Marrero MD [address] [place], [place] [phone] Medication Question Social History Tobacco Use Types [...] Dr Richardson's office on 05/11/2024. Note in [facility] EHR: Received call from Edward's VNA nurse questioning if he still needs to be on Kayexelate 2x weekly. She states he has been out ofit for probably 1 month as he was under the impression the order was discontinued. Labs on 04/25 showK level within normal limits. Instructed her to have him repeat labs in early May to continue to monitor. Called [facility] pharmacy, spoke with Faiza who stated that pt last picked up Kayexalate on 08/13/2023, Rx was written by Dr Lenin Richardson for 30g 1x weekly as directed. Called [facility] Dr iRchardson's office to confirm. Spoke with Ashley. Ashley [...] Richardson's office and received same messageas above. Television Actor advised Jessica to contact Dr Richardson with any questions regarding this med given that they prescribe it. Jessica stated she will be following up with their office in May once the pt gets their labs drawn. Advised her to call [facility] if any other questions or concerns develop, [...] for Jessica you can contact pt at [phone]. documented in this encounter Plan of Treatment Upcoming Encounters Date Type Department Care Team (Late st Contact Info) Description 03/24/2025 9:00 AM EST Clinical Support [facility] MEDICINE [address] [place] [address] Shwetha Collado RN [address] [place] [address] 05/31/2025 8:00 AM EST Office Visit [facility] ADULT DENTAL [address] [place] [address] Paco, Catherine [address] [place] [address] documented as of this encounter Visit Diagnoses Not on filedocumented in this encounter Additional Health Concerns Assessment Noted Time PHQ-9 Depression Total Score: 0 12/03/19 24 10:31 AM EDT documented as of this encounter Care Teams Director Of Financial Reporting Relationship Specialty Start Date End Date Agustin Marrero MD [address] [place] [address] PCP - General Internal Medicine 01/25/14 [facility] 06/13/16 documented as of this encounter
--- OUTSIDE RECORDS SUMMARY | 2025-03-08 15:26 | XMS_ITS | Encounter Summary ---
Author Organization [employer] Address [address] [place] [address], [place] [address] Care Team Providers Care Screwdown Operator Name Role Phone Agustin Marrero MD Primary Care Provide r Encounter Details Date Type Department Care Team (Latest Contact Info) Description 06/18/2021 Abstract [facility] CONVERSIONS Dental, Provider, DDS Social [...] Description 03/24/2025 9:00 AM EST Clinical Support [facility] MEDICINE [address] [place] [address] Shwetha Collado RN [address] [place] [address] 05/31/2025 8:00 AM EST Office Visit [facility] ADULT DENTAL [address] [place] [address] Matty Antonioaris [address] [place] [address] documented as of this encounter Visit Diagnoses Not on filedocumented in this encounter Care Teams Screwdown Operator Relationship Specialty Start Date End Date Agusitn Marrero MD [address] [place] [address] PCP - General Internal Medicine 01/25/14 [facility] 06/13/16 documented as of this encounter
--- OUTSIDE RECORDS SUMMARY | 2025-03-08 15:26 | XMS_ITS | Encounter Summary ---
Author Organization [employer] Address [address] [place] [address] [address] Care Team Providers Care Cycle Manager Name Role Phone Agustin Marrero MD Primary Care Provide r Encounter Details Date Type Department Care Team (Latest Contact Info) Description 09/06/2018 Abstract [facility] CONVERSIONS Dental, Provider, DDS Social [...] Description 03/24/2025 9:00 AM EST Clinical Support [facility] MEDICINE [address] [place] [address] Shwetha Collado RN [address] [place] [address] 05/31/2025 8:00 AM EST Office Visit [facility] ADULT DENTAL [address] [place] [address] Matty Antonioaris [address] [place] [address] documented as of this encounter Visit Diagnoses Not on filedocumented in this encounter Care Teams Cycle Manager Relationship Specialty Start Date End Date Agustin Marrero MD [address] [place] [address] PCP - General Internal Medicine 01/25/14 [facility] 06/13/16 documented as of this encounter
--- OUTSIDE RECORDS SUMMARY | 2025-03-08 15:26 | XMS_ITS | Encounter Summary ---
Author Organization [facility] Address [address] [place] [address] Care Team Providers Care Firer Glost Kiln Name Role Phone Agustin Mix Primary Care Provider + Encounter Details Date Type Department Care Team (Late st Contact Info) Description 12/30/2021 Orders Only [facility] Interventional Radiology [address] [place] [address] Avelino Otero DO [address] [place] [address] Social History Tobacco Use Types Packs/Day Years [...] Info) Description 03/27/2025 10:30 AM EST Follow-Up [facility] Liver Transplant Services [address] [place] [address] Dylan Phelps MD [address] [place] [address] documented as of this encounter Visit Diagnoses Not on filedocumented in this encounter Care Teams Firer Glost Kiln Relationship Specialty Start Date End Date Agustin Mix [address] [place] [address] PCP - General Internal Medicine 04/15/17 documented as of this encounter
--- OUTSIDE RECORDS SUMMARY | 2025-03-08 15:26 | XMS_ITS | Encounter Summary ---
Author Organization [employer] Address [address] [place] [address] 7 [place] [address] Care Team Providers Care Hollow Tile Partition Erector Name Role Phone Agustin Marrero MD Primary Care Provide r Reason for Visit * Reason Comments Med Refill Encounter Details Date Type Department Care Team ([facility] st Contact Info) Description 02/26/2025 Refill [facility] MEDICINE [address] [place] [address] Natasha Wall MD [address] [place] [address] Primary insomnia Social History Tobacco Use Types [...] Description 03/24/2025 9:00 AM EST Clinical Support [facility] MEDICINE [address] [place] [address] Shwetha Collado, KATALINA 505 [place] [address] 05/31/2025 8:00 AM EST Office Visit [facility] ADULT DENTAL [address] [place] [address] Paco, Catherine [address] [place] [address] documented as of this encounter Visit Diagnoses Diagnosis Primary insomnia Persistent disorder of initiating or maintaining sleep documented in this encounter Additional Health Concerns Assessment Noted Time PHQ-9 Depression Total Score: 0 11/02/19 25 9:25 AM EDT documented as of this encounter Care Teams Hollow Tile Partition Erector Relationship Specialty Start Date End Date Agustin Marrero MD [address] [place] [address] PCP - General Internal Medicine 01/25/14 [facility] 06/13/16 documented as of this encounter
--- OUTSIDE RECORDS SUMMARY | 2025-03-08 15:26 | XMS_ITS | Encounter Summary ---
Author Organization [facility] Address [address] [place] [address] Care Team Providers Care Soil Chemist Name Role Phone Agustin Mix Primary Care Provider + Encounter Details Date Type Department Care Team (Late st Contact Info) Description 02/29/2020 Orders Only [facility] [place] Ultrasound [address] [place] [address] Sreedhar Sotelo MD [address] [place], [place] [phone] Social History Tobacco Use Types Packs/Day Years [...] Info) Description 03/27/2025 10:30 AM EST Follow-Up [facility] Liver Transplant Services [address] [place] [address] Dylan Phelps MD [address] [place] [address] documented as of this encounter Visit Diagnoses Not on filedocumented in this encounter Additional Health Concerns Infection Onset Date Last Indicated Resolved Time COVID-19 - Suspected infection 03/05/2020 03/17/2020 03/17/2020 7:55 PM EST COVID-19 - Confirmed infection 05/01/2020 05/07/2020 06/01/2020 5:06 PM EST COVID-19 - Suspected infection 05/10/2020 05/10/2020 05/24/2020 10:34 PM EST documented as of this encounter Care Teams Soil Chemist Relationship Specialty Start Date End Date Agustin Mix [address] [place] [address] PCP - General Internal Medicine 04/15/17 documented as of this encounter
--- OUTSIDE RECORDS SUMMARY | 2025-03-08 15:26 | XMS_ITS | Encounter Summary ---
Author Organization [employer] Address [address] [place] [address] [place] [address] Care Team Providers Care Recruiter Coordinator Name Role Phone Agustin Marrero MD Primary Care Provide r Encounter Details Date Type Department Care Team (Latest Contact Info) Description 07/16/2020 Abstract [facility] CONVERSIONS Dental, Provider, DDS Social [...] Description 03/24/2025 9:00 AM EST Clinical Support [facility] MEDICINE [address] [place] [address] Shwetha Collado RN [address] [place] [address] 05/31/2025 8:00 AM EST Office Visit [facility] ADULT DENTAL [address] [place] [address] Matty Antonioaris [address] [place] [address] documented as of this encounter Visit Diagnoses Not on filedocumented in this encounter Care Teams Recruiter Coordinator Relationship Specialty Start Date End Date Agustin Marrero MD [address] [place] [address] PCP - General Internal Medicine 01/25/14 [facility] 06/13/16 documented as of this encounter
--- OUTSIDE RECORDS SUMMARY | 2025-03-08 15:26 | XMS_ITS | Encounter Summary ---
Author Organization [employer] Address [address] [place] [address] 7t [place] [address] Care Team Providers Care Cover Cutter Name Role Phone Agustin Marrero MD Primary Care Provide r Reason for Visit * Reason Comments Med Refill Encounter Details Date Type Department Care Team ([facility] st Contact Info) Description 05/13/2024 Refill [facility] MEDICINE [address] [place], [place] [phone] Agustin Marrero MD [address] [place] [address] Social History Tobacco Use Types Packs/Day Years [...] Description 03/24/2025 9:00 AM EST Clinical Support [facility] MEDICINE [address] [place] [address] Shwetha Collado, KATALINA [address] [place] [address] 05/31/2025 8:00 AM EST Office Visit [facility] ADULT DENTAL [address] [place] [address] Paco, Catherine [address] [place] [address] documented as of this encounter Visit Diagnoses Not on filedocumented in this encounter Additional Health Concerns Assessment Noted Time PHQ-9 Depression Total Score: 0 12/03/19 24 10:31 AM EDT documented as of this encounter Care Teams Cover Cutter Relationship Specialty Start Date End Date Agustin Marrero MD [address] [place] [address] PCP - General Internal Medicine 01/25/14 [facility] 06/13/16 documented as of this encounter
--- OUTSIDE RECORDS SUMMARY | 2025-03-08 15:26 | XMS_ITS | Encounter Summary ---
Author Organization [employer] Address [address] [place] [address] 7 [place] [address] Care Team Providers Care Parts Control Clerk Name Role Phone Agustin Marrero MD Primary Care Provide r Encounter Details Date Type Department Care Team (Late st Contact Info) Description 08/28/2022 Abstract [facility] MEDICINE [address] [place] [address] Agustin Marrero MD [address] [place] [address] Social History Tobacco Use Types Packs/Day Years [...] Description 03/24/2025 9:00 AM EST Clinical Support [facility] MEDICINE [address] [place] [address] Shwetha Collado RN [address] [place] [address] 05/31/2025 8:00 AM EST Office Visit [facility] ADULT DENTAL [address] [place] [address] Catherine Antonio [address] [place] [address] documented as of this encounter Procedures Procedure Name Priority Date/Time Associated Diagnosis Comments COLONOSCOPY Routine 06/28/2021 documented in this encounter Results * Colonoscopy (06/28/2021) Colonoscopy Normal Normal 06/28/2021 Narrative Shanel Bo - 06/28/2021 9:58 AM EST Recommended 3 year follow up per GI notes ( [facility] ) us Historical Provider [facility] Edited Result - Final documented in this encounter Visit Diagnoses Not on filedocumented in this encounter Care Teams Parts Control Clerk Relationship Specialty Start Date End Date Agustin Marrero MD [address] [place] [address] PCP - General Internal Medicine 01/25/14 [facility] 06/13/16 documented as of this encounter
--- OUTSIDE RECORDS SUMMARY | 2025-03-08 15:26 | XMS_ITS | Encounter Summary ---
Author Organization [employer] Address [address] [place] [address] [address] Care Team Providers Care Building Maintenance Superintendent Name Role Phone Agustin Marrero MD Primary Care Provide r Reason for Visit * Reason Onset Date Comments Med Refill 12/15/2022 Encounter Details Date Type Department Care Team ([facility] st Contact Info) Description 12/15/[address] [facility] MEDICINE [address] [place], [place] [phone] Agustin Marrero MD [address] [place] [address] Med Refill Social History Tobacco Use Types [...] 03/24/2025 9:00 AM EST Clinical Support [facility] MEDICINE [address] [place] [address] Shwetha Collado, KATALINA [address] [place] [address] 05/31/2025 8:00 AM EST Office Visit [facility] ADULT DENTAL [address] [place] [address] Catherine Antonio [address] [place] [address] documented as of this encounter Visit Diagnoses Not on filedocumented in this encounter Care Teams Building Maintenance Superintendent Relationship Specialty Start Date End Date Agustin Marrero MD [address] [place] [address] PCP - General Internal Medicine 01/25/14 [facility] 06/13/16 documented as of this encounter
--- OUTSIDE RECORDS SUMMARY | 2025-03-08 15:26 | XMS_ITS | Encounter Summary ---
Author Organization [employer] Address [address] [place] [address] 7[place] [address] Care Team Providers Care Master Glazier Name Role Phone Agustin Marrero MD Primary Care Provide r Reason for Visit * Reason Onset Date Comments Med Refill 12/15/2022 Encounter Details Date Type Department Care Team ([facility] st Contact Info) Description 12/15/2022 Telephone [facility] MEDICINE [address] [place], [place] [phone] Agustin Marrero MD [address] [place] [address] Med Refill Social History Tobacco Use Types [...] Description 03/24/2025 9:00 AM EST Clinical Support [facility] MEDICINE [address] [place] [address] Shwetha Collado, RN [address] [place] [address] 05/31/2025 8:00 AM EST Office Visit [facility] ADULT DENTAL [address] [place] [address] Catherine Antonio [address] [place] [address] documented as of this encounter Visit Diagnoses Not on filedocumented in this encounter Care Teams Master Glazier Relationship Specialty Start Date End Date Agustin Marrero MD [address] [place] [address] PCP - General Internal Medicine 01/25/14 [facility] 06/13/16 documented as of this encounter
--- OUTSIDE RECORDS SUMMARY | 2025-03-08 15:26 | XMS_ITS | Clinical Summary ---
Author Organization [facility] Address [address] [place] [address] Care Team Providers Care Global Regulatory Lead Name Role Phone Agustin Mix Primary Care Provider + Allergies No known active allergies Medications blood glucose diagnostic meterIndicatio ns:Type 2 diabetes mellitus with hyperglycemia, with long-term current use of insulin Use to test 3 times daily. 1 each 0 10:32 AM EDT 08/17/19 20 Active VIAGRA 100 mg tablet TAKE 1 TABLET 1 HOUR BEFORE SEXUAL RELATIONS ONCE DAILY NEEDED. 08/30/19 20 Active Freestyle Lite test stripsIndicati ons:Type 2 diabetes mellitus with hyperglycemia, with long-term current use of insulin Test 3 times a day. 100 strip 1 0 9:38 PM EDT 10/24/19 20 Active blood glucose diagnostic lancet 28 gaugeIndicatio ns:Type 2 diabetes mellitus with hyperglycemia, with long-term current use of insulin Use to test 3 times daily. 100 each 1 10/24/19 20 Active pen needle, diabetic 32 gauge x 1/4 needle Use 1 needle up to four times per day 100 each 1 0 10:35 AM EDT 11/04/19 20 Active Lantus [...] daily 01/25/20 22 Active FreeStyle Arvin 2 [place] misc 01/17/20 22 Active BD Insulin Syringe Ultra-Fine 0.3 mL 31 gauge x 09/02 syringe 02/28/20 22 Active cholecalcifero l (VITAMIN D3) 1,000 unit tablet Take 1 tablet (1,000 Units total) by mouth once a day. 90 tablet 1 11/16/19 23 Active FreeStyle Arvin 2 Sensor kit USE TO MONITOR BLOOD GLUCOSE LEVELS. CHANGE EVERY 14 DAYS DX E11.9 11/05/19 23 Active Artificial Tears,pg-hypm- glyc, 1-0.2-0.2 % drops SMARTSIG:In Eye(s) 01/05/20 23 Active SUMAtriptan (IMITREX) 25 mg tablet Take 25 mg by mouth. 07/20/19 24 Active lidocaine (LIDODERM) 5% patch APLIQUE UN PARCHE EN LA MA SALOMÓN REMOVE AND DISARD PATCH WITHIN 12 HOURS OR SEG N LO INDICADO Active magnesium oxide (MAG-OX) 400 mg (241.3 mg mag) tabletIndicati ons:Low magnesium level TAKE 2 TABLETS (800 MG TOTAL) BY MOUTH 2 TIMES A DAY. 360 tablet 5 01/22/20 24 Active Daily-Stacy, with folic acid, tablet SMARTSI Tablet(s) By Mouth Daily 05/10/19 25 Active ammonium lactate (AMLACTIN) 12 % cream SMARTSIG:Topic al Twice Daily 03/10/20 24 Active Gvoke HypoPen 1-Pack 0.5 mg/0.1 mL auto-injector PLEASE SEE ATTACHED FOR DETAILED DIRECTIONS 01/04/20 24 Active tacrolimus (PROGRAF) 1 mg capsuleIndicat ions:History of liver transplant Take 2 capsules (2 mg total) by mouth in the morning AND 1 capsule (1 mg total) in the evening. 02/23/20 25 Active tacrolimus (PROGRAF) 1 mg capsuleIndicat ions:History of liver transplant TOME 1 CAPSULA POR VIA ORAL CADA DOCCurtis HORRAYMOND 270 capsule 3 10/25/19 025 Discontinued Active Problems Problem Noted Date Diagnosed [...] March 2020. He was seen by painter set at [facility] who discussed that he might need [...] for liver biopsy, since LFT pattern not telesales representative of rejection. Additionally, Liver ultrasound showed [...] of recurrent ESBL bacteremia. Initially presented to [facility] for fever, LE swelling and pain. [...] of recurrent ESBL bacteremia. Initially presented to [facility] for fever, LE swelling and pain. [...] recurrent ESBL bacteremia. Patient initially presented to [facility] for fever and LE swelling and [...] recurrent ESBL bacteremia. Patient initially presented to [facility] for fever and LE swelling and [...] w/ rt side 4+ pitting edema. At [facility], US was negative for DVT. CT [...] w/ rt side 4+ pitting edema. At [facility], US was negative for DVT. CT [...] Right side has 4+ pitting edema. At [facility], US was obtained and ruled out [...] pathology. -BCx grew GNR -transplant ID consulted -[facility] was called for speciation, it will [...] for pathology. -Transplant ID is following -[facility] will fax culture data, commented that [...] 8:59 AM EST): Hyponatremic to 132 at [facility]. Na 128, constant through hospitalization. - daily BMP Assessment & Plan (02/09/2019 11:02 AM EDT): Hyponatremic to 132 at [facility]. Na 128, constant through hospitalization. - daily BMP Assessment & Plan (02/05/2019 5:51 AM EDT): Hyponatremic to 132 at [facility]. - repeat BMP in am and redose diuretics Assessment & Plan (02/05/2019 5:47 AM EDT): Hyponatremic to 132 at [facility]. - repeat BMP in am and [...] Presented again on day of admission to [facility] with worsening shortness of breath where a CT chest PE protocol was performed which showed no evidence of intraluminal filling defect though did make note of large left- sided pleural effusion with associated complete left lower lobe collapse as well as partial left upper lobe collapse. Due to recurrent pleural effusion and likely need for repeat thoracentesis patient was transferred [facility]. On arrival patient without any increased work of breathing and saturating well on room air. Exam reveals absent breath sounds in the left middle and lower lung perez with increased dullness to percussion. 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 -We will have CT scan from [facility] uploaded into our system for review -CXR on 07/11 showed large left pleural effusion -IP consulted for thoracentesis. Will send fluid studies. -Requested [facility] records of pleural fluid studies from 07/06 -Supplemental oxygen as needed to maintain sats greater than 92% Assessment & Plan (01/19/2019 10:11 AM EDT): Patient is s/p thoracentesis after large left lung effusion unchanged from previous admission seen on imaging. Site of thoracentesis covered with bandage that is dry and intact. Chart review of his prior hospitalization at [facility] revealed that he had thoracentesis on January 11, 2019, during which 1.6 L was taken out, and fluid study revealed white blood cell count of 2650 and segs of 35%, suggesting exudative fluid, although it seems that no paracentesis was done at [facility]. - decreased breath sounds in middle and [...] procedure in 2017. Most recent hospitalization at [facility] was in January 2019 when he [...] to hyperkalemia. Of note, reached out to [facility] to double check if paracentesis was done, and whether there is a fluid study of the sample, however it appears that no paracentesis was done at [facility]. - Start Lactulose increased to 20 g [...] 20mg daily and spironolactone 50mg daily. At [facility], patient received IV lasix 40mg daily. [...] 20mg daily and spironolactone 50mg daily. At [facility], patient received IV lasix 40mg daily. [...] Encounters Date Type Department Care Team Description 02/22/2025 Abstract [facility] Transplant Department [address] [place] [address] [id number] Dylan Phelps MD 02/21/2025 Results Follow-Up [facility]plant [facility] [address] [place] [address] [id number] Erika Bonds RN 02/21/2025 Abstract [facility] Transplant Department [address] [place] [address] 49000 Dylan Phelps MD 02/07/2025 Telephone [facility] [address] [place] [address] 18300 Erika Bonds RN 01/26/2025 Abstract [facility] Transplant Department [address] [place] [address] [id number] Dylan Phelps MD 01/20/2025 Results Follow-Up [facility] Transplant Department [address] [place] [address] [phone] Erika Bonds RN 01/19/2025 Abstract [facility] Transplant Department [address] [place] [address] [id number] Dylan Phelps MD 12/23/2024 Abstract [facility] Transplant Department [address] [place] [address] [id number] Dylan Phelps MD 12/22/2024 Results Follow-Up [facility] Transplant [facility] [address] [place] [address] [id number] Erika Bonds RN 12/22/2024 Abstract [facility] Transplant Department [address] [place] [address] [id number] Dylan Phelps MD 12/12/2024 Orders Only [facility]plant Department [address] [place] [address] [id number] Erika Bonds, KATALINA Encounter for immunosuppression management after liver transplant (HCC) (Primary Dx); History of hepatocellular carcinoma from Last 3 Months Immunizations Immunization Administration [...] Info) Description 03/27/2025 10:30 AM EST Follow-Up [facility] [address] [place], [place] [phone] Dylan Phelps MD [address] [place] [address] Health Maintenance Due Date Last Done Comments Cologuard 1964 Colon Cancer Screening 1965 Colonoscopy 1964 FOBT / Fit Test 1964 Sigmoidoscopy 1964 Ophthalmology Exam 01/03/1974 RSV Vaccine (60+ years old a nd patients) (1 - Risk 50-74 years 1-dose series) 01/03/2014 Urine Microalbumin 05/17/2022 05/17/2021, 04/06/2020 DTaP,Tdap,and Td Vaccines (2 - Td or Tdap) 09/16/2023 09/15/2013, 10/26/2006 Alcohol/Substance Use Screening 04/20/2024 Depression Screening and Follow-Up 04/20/2024 Social Drivers of Health Layla ual Screening 04/20/2024 Basic Metabolic Panel 09/11/2024 09/12/2023 , 11/19/2022, 11/15/2022, Additional history exists Influenza Vaccine (#1) 2024 , 02/12/2023, 05/06/2022, Additional history exists CT Lung Cancer Screening (Baseline) 11/29/2024 11/30/2023, 11/05/2023, 05/06/2022, Additional history exists COVID-19 Vaccine (2 6 season) 2024 05/06/2022, 11/25/2021, 03/25/2021, Additional history exists Hemoglobin A1C 01/05/2025 07/05/2024, [...] history exists Medical Devices Implanted Type Area Gill Box Tender Device Identifier Shelf Expiration Date Model / Serial / Lot Shunt Transjugular Intrahepatic Portosystemic Tips Endoprosthesis [id number] Viatorr - [id number] Implanted:Qty: 1 on 07/28/2017 at [facility] Implant W L GORE 12/26/2019 [id number] / / Mesh Hernia With Strap Large Ventralex - [id number] Implanted:Qty: 1 on 03/20/2020 by Fernando Fine MD PhD at [facility] Mesh Right: Abdomen CR [employer]ARD INC 01/15/2021 [id number] / / [id number] Stent Biliary Rx Fully Covered Self Expanding Metallic Rmv With Permalume Covering 8.5fr [id number] Wallflex - [id number] - [id number] Implanted:Qty: 1 on 11/21/2022 by Dunia Osorio MD at [facility] Stent N/A: Bile Duct [employer] 08/21/2024 [id number] / [id number] / Explanted Type Area Gill Box Tender Device Identifier Shelf Expiration Date Model / Serial / Lot Ercp Stent-11/21/2022 Implanted:07/2022 (Quantity not on file) Explanted:06/2022 (Quantity not on file) ERCP Stent Bile Duct 1 / / Txp Internal Biliary Stent- 0 Implanted:07/20 (Quantity not on file) Explanted:07/2020 (Quantity not on file) TXP Internal Biliary Stent Bile Duct Procedures * Due to [place] state law, this organization might not be sharing negative HIV tests. Procedure Name Priority Date/Time Associated Diagnosis Comments AFP TUMOR MARKER, OUTSIDE LAB Routine 02/17/2025 6:43 AM EDT LIVER POST EXTERNAL PANEL Routine 02/17/2025 6:43 AM EDT AFP TUMOR MARKER, OUTSIDE LAB Routine 01/18/2025 7:10 AM EDT LIVER POST EXTERNAL PANEL Routine 01/18/2025 7:10 AM EDT AFP TUMOR MARKER, OUTSIDE LAB Routine 12/21/2024 6:38 AM EDT LIVER POST EXTERNAL PANEL Routine 12/21/2024 6:[address] CHEST W CONTRAST Routine [...] to Health Maintenance Results * Due to [place] state law, this organization might not be sharing negative HIV tests. * LIVER POST EXTERNAL PANEL (02/17/2025 6:43 AM EDT) Only the most recent of3 resultswithin the time period is included. Tacrolimus, Highly Sensitive 3.3 [facility] Sodium 139 mmol/L [facility] Potassium 4.4 [facility] Chloride 105 [facility] Carbon Dioxide 28 [facility] Glucose 120 [facility] BUN 18 mg/dL [facility] Creatinine 1.02 mg/dL [facility] Calcium 9.4 mg/dL [facility] Total Protein 7.1 g/dL [facility] Albumin 4.7 g/dL [facility] Bilirubin, Total 0.6 mg/dL [facility] Alkaline Phosphatase 123 U/L [facility] AST 41 U/L [facility] ALT 50 U/L [facility] Magnesium 1.80 mg/dL [facility] WBC 4.8 10*3/uL [facility] Hgb 14.2 [facility] Hematocrit 40.8 % [facility] Platelets 128 10*3/uL [facility] 02/17/2025 6:43 AM EDT us Dylan Phelps MD LAB BLOOD ORDERABLES Final Re sult [facility] [address] [place] [address] * AFP Tumor Marker, Outside Lab (02/17/2025 6:43 AM EDT) Only the most recent of3 resultswithin the time period is included. Alpha Fetoprotein, Tumor Marker 1.5 [facility] Blood Structure of peripheral vein / Unknown 02/17/2025 6:43 AM EDT us Dylan Phelps MD LAB BLOOD ORDERABLES Final Re sult [facility] [address] [place] [address] * CT Chest W Contrast (11/05/2023 4:35 [...] to obtain the completed interpretation. Workstation ID: [id number] Up-to-date CT equipment and radiation dose reduction techniques were employed. CTDIvol: 3.1 - 23.9 mGy. DLP: 2643 mGy-cm. The following accession numbers are related to this dose report [id number]: [id number] Narrative 11/19/2023 3:36 PM EDT Indication: 58 [...] the spine. Bilateral gynecomastia. Resulting Agency Comment [id number] Procedure Note Natasha Michaud MD - 11/19/2023 [...] possible to obtain thecompleted interpretation. Workstation ID: [id number] Up-to-date CT equipment and radiation dose reduction techniques wereemployed. CTDIvol: 3.1 - 23.9 mGy. DLP: 2643 mGy-cm. The followingaccession numbers are related to this dose report [id number]: [id number] Dylan Phelps MD [facility] CT PROCEDURES Final Resul t * (ABNORMAL) Basic Metabolic Panel (11/15/2022 3:07 AM EDT) NA 135 135 - 145 mmol/L 11/15/2022 4:09 AM EDT [facility] K 4.6 3.5 - 5.3 mmol/L 11/15/2022 4:09 AM EDT [facility] Cl 103 97 - 110 mmol/L 11/15/2022 4:09 AM EDT [facility] CO2 24 24 - 32 mmol/L 11/15/2022 4:09 AM EDT [facility] BUN 27(H) 7 - 23 mg/dL 11/15/2022 4:09 AM EDT [facility] Creatinine 1.05 0.60 - 1.30 mg/dL 11/15/2022 4:09 AM EDT [facility] Glucose 268(H) 70 - 99 mg/dL 11/15/2022 4:09 AM EDT [facility] Calcium 8.8 8.7 - 10.7 mg/dL 11/15/2022 4:09 AM EDT [facility] Anion Gap 8 5 - 15 11/15/2022 4:09 AM EDT [facility] eGFR 82 >=60 mL/min/1. 73m2 11/15/2022 4:09 AM EDT [facility] Comment:The estimated glomer ular [...] MD LAB BLOOD ORDERABLES Final Re sult [facility] [address] [place] [address], * Microalbumin, Random Urine with Creatinine (05/17/2021 11:35 AM EST) Microalbumin, Urine 1.1 mg/dL 05/17/2021 12:34 PM EST [facility] Creatinine, Urine 97 22 - 328 mg/dL 05/17/2021 12:34 PM EST [facility] Microalb/Creat Ratio, Random Urine 11.3 <30.0 mcg/mgCr 05/17/2021 12:34 PM EST [facility] Comment: Microalbumin Reference Range: Normal <30 mcg/mg Creatinine Microalbuminuria 30-300 mcg/mg Creatinine Clinical Albuminuria >300 mcg/mg Creatinine Reference: ADA Guideline. Diabetes Care. 2004;27 (suppl 1) Urine Voided urine specimen / Unknown Non-Blood Collection / Unknown 05/17/2021 11:35 AM EST 05/17/2021 12:01 PM EST Angelita Villa MD LAB URINE ORDERABLES Final Resul t [facility] [address] [place] [address], * (ABNORMAL) Hemoglobin A1c (05/17/2021 11:31 AM EST) Hemoglobin A1C 7.7(H) <5.7 % of total Hgb 05/18/2021 2:37 AM EST [facility] Comment: For someone without known diabetes, a [...] (MG/DL) 174 mg/dL 05/18/2021 2:37 AM EST [facility] eAG (MMOL/L) 9.7 mmol/L 05/18/2021 2:37 AM EST [facility] Blood Structure of peripheral vein / Unknown Venipuncture / Unknown 05/17/2021 11:31 AM EST 05/17/2021 11:40 AM EST Narrative [facility] [place] - 05/18/2021 2:37 AM EST [facility] Received Date: Angelita Villa MD LAB BLOOD ORDERABLES Final Resul t [facility] [place] [address], [place] [address], [place] [phone] [employer] [address], [address] [place] [address], [place] [phone] * CT Abdomen Pelvis with Contrast (05/05/2020 5:27 PM EST) Anatomical Region Laterality Modality Body Computed Tomogra phy 05/06/2020 8:40 AM EST Impressions 05/06/2020 8:50 AM EST Small fluid pocket between the incision and transverse colon which may represent developing adhesions. Recommend correlation for any signs of infection in the incision on exam. Otherwise, no CT findings that might explain patient's fever. [id number] Narrative 05/06/2020 8:50 AM EST EXAMINATION: CT [...] no CT findings that mightexplain patient's fever. [id number] Reyes Voss MD [facility] CT PROCEDURES Final Result * Hepatitis C RNA, Quantitative, PCR (09/09/2019 11:52 AM EDT) Hcv RNA, Quantitative Real Time PCR <15 NOT DETECTED NOT DETECTED IU/mL 09/14/2019 5:38 PM EDT [facility] Hepatitis C Quantitative PCR Log IU/mL <1.18 NOT DETECTED NOT DETECTED Log IU/mL 09/14/2019 5:38 PM EDT [facility] Comment: This test was performed using Real-Time Polymerase Chain Reaction. Reportable Range: 15 IU/mL to 100,000,000 IU/mL (1.18 Log IU/mL to 8.00 Log IU/mL). The analytical performance characteristics of this assay have been determined by [employer]. The modifications have not been cleared or approved by the FDA. This assay has been validated pursuant to the CLIA regulations and is used for clinical purposes. For more information on this test, go to: http://education.Swiftcourt/faq/IIO29a4 (This link is being provided for informational/ educational purposes only.) Blood Structure of peripheral vein / Unknown Venipuncture / Unknown 09/09/2019 11:52 AM EDT 09/09/2019 12:07 PM EDT Narrative [facility] - 09/14/2019 5:38 PM EDT [facility] Received Date:[id number] Cyndi Pereira MD LAB BLOOD ORDERAB LES Final Result [facility] [address] [facility] [address] Floor, [place] [address], [place] [phone] [facility] [address], [place] [address], [place] [phone] from Last 3 Months or Most Recently Relevant to Health Maintenance Insurance [facility] [place] [id number] [address] [place] [id number] [facility] ALLIANCE [address] [place] [id number] [facility] CARE ALLIANCE [place] [id number] Advance Directives Documents on File Type Date Recorded 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
--- OUTSIDE RECORDS SUMMARY | 2025-03-08 15:26 | XMS_ITS | Encounter Summary ---
Author Organization [employer] Address [address] [place] [address] 7 [place] [address] Care Team Providers Care Home Health Care Physician Name Role Phone Agustin Marrero MD Primary Care Provide r Reason for Visit * Reason Onset Date Comments Med Refill 02/27/2025 Encounter Details Date Type Department Care Team ([facility] st Contact Info) Description 02/27/2025 Telephone [facility] [address] [place], [place] [phone] Agustin Marrero MD [address] [place], [place] [phone] Med Refill Social History Tobacco Use Types [...] * Telephone Encounter - Jon Chan - 02/27/2025 12:46 PM EST TC from pt requesting medication refill. Medications needing refill : traMADol (Ultram) 50 MG tablet To be sent to: [facility]/pharmacy [address] [place] [address] . documented in this encounter Plan of Treatment Upcoming Encounters Date Type Department Care Team (Late st Contact Info) Description 03/24/2025 9:00 AM EST Clinical Support [facility] [address] [place] [address] Shwetha Collado RN [address] [place] [address] 05/31/2025 8:00 AM EST Office Visit [facility] [address] [place] [address] Catherine Antonio [address] [place] [address] documented as of this encounter Visit Diagnoses Not on filedocumented in this encounter Additional Health Concerns Assessment Noted Time PHQ-9 Depression Total Score: 0 11/02/19 25 9:25 AM EDT documented as of this encounter Care Teams Home Health Care Physician Relationship Specialty Start Date End Date Agustin Marrero MD [address] [place] [address] PCP - General Internal Medicine 01/25/14 [facility] 06/13/16 documented as of this encounter
--- OUTSIDE RECORDS SUMMARY | 2025-03-08 15:26 | XMS_ITS | Encounter Summary ---
Author Organization [employer] Address [address] [place] [address] [address] [place] [address] Care Team Providers Care Cable Spooler Name Role Phone Agustin Marrero MD Primary Care Provide r Reason for Visit * Reason Onset Date Comments Med Refill 02/27/2025 Encounter Details Date Type Department Care Team ([facility] st Contact Info) Description 02/27/2025 Telephone [facility] [address] [place], [place] [phone] Agustin Marrero MD [address] [place], [place] [phone] Med Refill Social History Tobacco Use Types [...] Telephone Encounter - Patti White LPN - 02/27/2025 12:50 PM EST LINE PATROLMAN checked on 02/27/25 Ambien to soon for refill last sold on 02/05/25. Novolog pended to PCP. * Telephone Encounter - Jon Chan - 02/27/2025 12:47 PM EST TC from pt requesting medication refill. Medications needing refill : zolpidem (Ambien) 10 MG tablet NovoLOG FLEXPEN 100 UNIT/ML pen To be sent to: [facility]/pharmacy #[id number] [place], [place] - [address] [place] [address] documented in this encounter Plan of Treatment Upcoming Encounters Date Type Department Care Team (Late st Contact Info) Description 03/24/2025 9:00 AM EST Clinical Support [facility] [address] [place], [place] [phone] Shwetha Collado, KATALINA [address] [place], [place] [phone] 05/31/2025 8:00 AM EST Office Visit [facility] [address] [place] [address] Catherine Antonio [address] [place], [place] [phone] documented as of this encounter Visit Diagnoses Not on filedocumented in this encounter Additional Health Concerns Assessment Noted Time PHQ-9 Depression Total Score: 0 11/02/19 25 9:25 AM EDT documented as of this encounter Care Teams Cable Spooler Relationship Specialty Start Date End Date Agustin Marrero MD [address] [place] [address] PCP - General Internal Medicine 01/25/14 [facility] 06/13/16 documented as of this encounter
--- OUTSIDE RECORDS SUMMARY | 2025-03-08 15:26 | XMS_ITS | Encounter Summary ---
Author Organization [employer] Address [address] [place] [address] [address], [place] [address] Care Team Providers Care Swatch Clerk Name Role Phone Agustin Marrero MD Primary Care Provide r Encounter Details Date Type Department Care Team (Latest Contact Info) Description 05/23/2019 Abstract [facility] CONVERSIONS Dental, Provider, DDS Social [...] 9:00 AM EST Clinical Support [facility] MEDICINE [address] [place] [address] Shwetha Collado RN [address] [place] [address] 05/31/2025 8:00 AM EST Office Visit [facility] ADULT DENTAL [address] [place] [address] Matty Antonioaris [address] [place] [address] documented as of this encounter Visit Diagnoses Not on filedocumented in this encounter Care Teams Swatch Clerk Relationship Specialty Start Date End Date Agustin Marrero MD [address] [place] [address] PCP - General Internal Medicine 01/25/14 [facility] 06/13/16 documented as of this encounter
--- OUTSIDE RECORDS SUMMARY | 2025-03-08 15:26 | XMS_ITS | Encounter Summary ---
Author Organization [employer] Address [address] [place] [address] 7 [place] [address] Care Team Providers Care Community Health Program Coordinator Name Role Phone Agustin Marrero MD Primary Care Provide r Reason for Visit * Reason Comments Med Refill Encounter Details Date Type Department Care Team ([facility] Contact Info) Description 09/04/2022 Refill [facility] MEDICINE [address] [place] [address] Agustin Marrero MD [address] [place] [address] Social History Tobacco Use Types Packs/Day Years [...] Upcoming Encounters Date Type Department Care Team ([facility] Contact Info) Description 03/24/2025 9:00 AM EST Clinical Support [facility] MEDICINE [address] [place] [address] Shwetha Collado, RN [address] [place] [address] 05/31/2025 8:00 AM EST Office Visit [facility] ADULT DENTAL [address] [place] [address] Matty Antonioaris [address] [place] [address] documented as of this encounter Visit Diagnoses Not on filedocumented in this encounter Care Teams Community Health Program Coordinator Relationship Specialty Start Date End Date Agustin Marrero MD [address] [place] [address] PCP - General Internal Medicine 01/25/14 [facility] 06/13/16 documented as of this encounter
--- OUTSIDE RECORDS SUMMARY | 2025-03-08 15:26 | XMS_ITS | Encounter Summary ---
Author Organization [facility] Address [address] [place] [address] Care Team Providers Care Plate Keeper Name Role Phone Agustin Mix Primary Care Provider + Encounter Details Date Type Department Care Team (Late st Contact Info) Description 01/20/2025 Results Follow-Up [facility] Transplant Department [address] [place] [address] Erika Bonds RN Social History Tobacco Use [...] Follow-Up [facility] Liver Transplant Services [address] [place] [address] Dylan Phelps MD [address] [place] [address] documented as of this encounter Visit Diagnoses Not on filedocumented in this encounter Care Teams Plate Keeper Relationship Specialty Start Date End Date Agustin Mix [address] [place] [address] PCP - General Internal Medicine 04/15/17 documented as of this encounter
--- OUTSIDE RECORDS SUMMARY | 2025-03-08 15:27 | XMS_ITS | Data Portability ---
Author Organization [place] [employer] [facility], Main Office Address [address] [facility] [place] [address] Care Team Providers Care Depositing Machine Operator Name Role Phone MARICRUZ NEWMAN - 2ND FLOOR OTHER Assessment Encounter Date Assessment Date Assessment LastModified by Organization Details LastModified Time 02/25/2019 02/25/2019 02/24/19 WBC 3.7, Hgb 7.5, Hct 22.4, Plt 59, Na 134, K 4.5, BUN 10, [employer] Dean 0.54, calc 7.8, tot prot 5.1, AST 69, ALT 33, A1c 4.2 02/23/19 WBC 3.4, Hgb 7.5, Hct 22.4, Plt 59, Na 128, K 4.3, BUN 11, [employer] Dean 0.56, silvia 7.6, tot prot 4.8, tot bili 4.1, AST 65, ALT 25 in hospital [facility] Not available 02/25/2019 10:15:55 Plan of [...] Gastroesop hageal reflux disease without esophagiti s 267172873 Active 2018 FIDEL MAURO [address] [facility], [address], [place], [address], [facility] 9 08:26:33 Cirrhosis of liver 03127254 Active 2018 on transplant list FIDEL MAURO [address] [facility], [address], [place], [address], [facility] 9 08:36:16 Diabetes mellitus 83630537 Active 2018 CACHORRO FIDEL CARLSON [address] [facility], [address], [place], [address], [facility] 9 08:28:07 Hyponatrem ia 50292191 Active 2018 CACHORROFIDEL LEON [address] [facility], [address], [place], [address], [facility] 9 08:28:22 Bacteremia 9048523 Active 2018 FIDEL MAURO [address] [facility], [address], [place], [address], [facility] 9 08:29:07 Bacterial peritoniti s 644132426 Active 2018 FIDEL MAURO [address] [facility], [facility] [address], [place], [address], [facility] 9 09:07:42 Edema of lower extremity 882405578 Active 2018 FIDEL MAURO [address] [facility], [address], [place], [address], [facility] 9 09:15:49 Abscess of lower leg 081952534 Active 2018 Brittaney Mcelroy MD [address] [place] [address], [place] [address], [place], [address], [facility] 9 07:15:49 Anemia 272482154 Active 2018 Brittaney Mcelroy MD [address] [place] [address], [facility] [address], [place], [address], [facility] 9 07:16:47 Problem Notes None recorded. Medical Equipment None Reported. Allergies No known drug allergies Medications Not known to be on any medication Vitals Date Recorded Body weight Heart rate Respiratory rate Body temperature Oxygen saturation Oxygen saturation in Arterial blood by Pulse oximetry Systolic And Diastolic Provider Name and Address Organization Details Last Updated DateTime 9 [address].5 1 g 70 /min 20 /min 96.9 [degF] 98 % 98 % 128/74 mm[Hg] FIDEL MAURO [address] [facility], [address], [place], [address], [facility] 9 11:06:12 Date Recorded Systolic And Diastolic Provider Name and Address Organization Details Last Updated DateTime 03/02/2019 120/68 mm[Hg] Brittaney Mcelroy MD [address] [facility], [address], [place], [address], [facility] 03/02/2019 06:55:54 Social History Question Answer Notes LastModified by Organizat ion Details LastModified Time Tobacco Smoking Status Former Smoker Not Available [facility] 02/14/2020 03:13:21 Do You Have An Advance Directive? Yes FULL CODE-undecide d About Dialysis And Nutrition-may Use Hydration [id number] Information not available 02/14/2020 How Many Years Have You Consumed Alcohol? 30 [id number] Information not available 02/14/2020 How Much Tobacco Do You Chew? None [id number] Information not available 02/14/2020 Do You Have A Medical Power Of Argon Tester? Yes Hcp On File [id number] Information not available 02/14/2020 What Was The Date Of Your Most Recent Tobacco Screening? 02/25/2019 [id number] Information not available 02/14/2020 How Much Tobacco Do You Smoke? 1 PPD [id number] Information not available 02/14/2020 On What Date Was Tobacco Cessation Counseling Provided? 02/25/2019 NA [id number] Information not available 02/14/2020 How Many Years Have You Smoked Tobacco? 30 [id number] Information not available 02/14/2020 Sex: Unknown Functional Status Question Answer Note LastModified by Organizat ion Details LastModified Time What is your level of alcohol consumption? None quit drinking in 2015 [id number] Information not available 02/14/2020 Do you or have you ever used smokeless tobacco? Never used smokeless tobacco [id number] Information not available 02/14/2020 Do you or have you ever used e-cigarettes or vape? Never used electronic cigarettes [id number] Information not available 02/14/2020 Mental Status None recorded. Family History Nothing Reported. Medical History No medical history recorded. Past Encounters Encounter ID Performer Location Encounter Start Date Encounter Closed Date Diagnosis/Indication Diagnosis SNOMED-CT Code Diagnosis ICD10 Code Diagnosis IMO Codes Diagnosis Note [id number] CACHORRO FIDEL CARLSON [address] [address] 02/25/2019 08:25:36 03/04/2019 13:41:33 Bacteremia 6913634 R78.81 completed treatmentm onitor dsg changes qdwet to dryareas clean Hyponatremia 13332327 E8 7.1 resolvedmo nitor labs Cirrhosis of liver K70.31 lactulose 30 mls tid 3-4 stools a dayspirono lactone 50 mg qdmonitoro n transplant listfollow s with [facility] Diabetes mellitus 965129 09 E11.9 lantus 8 units q htJYGY1h here is 4.2monitor for s/s of hypo/hyper glycemia Gastroesop hageal reflux disease without esophagitis 285131263 K21.9 omeprazole 20 mg qdmonitor for symptoms Bacterial peritonitis 19 6109794 K65.2 recurrentc ipro 500 mg qd prophymoni tor for symptoms Edema of l ower extremity 616688366 R60.0 lasix 20 mg qdmonitor edema [id number] Brittaney Mcelroy MD [address] [address] 03/02/2019 06:54:11 03/04/2019 13:42:54 Cirrhosis of liver 10362167 K70.31 fu GIlactulos e 20 gm tidfurosem concetta 20 mg dailymagne sium 400 mg dailyspiro nolactone 25 mg dailyon transplant list [facility] Diabetes mellitus 857943 09 E11.9 Humalog per sliding scaleLantu s 8U dailywill monitor Gastroesop hageal reflux disease without esophagitis 712303352 K21.9 omeprazole 20 mg dailywill monitor Anemia 620170770 D50.8 suspect multifacto rial including GI blood loss, chronic diseaseawa it B12, folateiron 325 mg bidwill continue to monitor Bacteremia 7973379 R78.8 1 antibiotic s completedd aily dressing changes legfu surgery Bacterial peritonitis 19 5352445 K65.2 history of in pastCipro 500 mg daily for prophylaxi sfu GI [facility] Health Concerns Section Related Observation LastModified by Organization Detai ls LastModified Time None Recorded Concern Status LastModified by Organization Details LastModified Time None Recorded Advance Directives Directive Y: FULL CODE-undecided about dialysis and nutrition-may use hydration Payers Insurance Date Sequence Insurance Name Policy Number Policy Banks Covered Member ID Banks Member ID Guarantor Name 03/04/2019 2 [place] [facility] Edward Danay [id number] Edward Jon 03/04/2019 1 [facility] - DOS PRIOR TO 2022 - DUAL ELIGIBLE (MEDICARE REPLACEMENT/AD VANTAGE - HMO) Edward Danay [id number] Edward Jon Notes Date Note Type Note Provider Name and Address Organization Details Recorded Time 02/25/2019 text/html A 54 year old male being seen for a initial intake note. Patient was at [facility] for fever and lower extremity edema/pain. He was transferred to [facility] for bacteremia. He grew ESBL E. [...] hyponatremia and SBP. CACHORRO CARLSON, FIDEL [address] [facility], [address], [place], [address], [facility] 02/25/2019 11:10:47 03/02/2019 text/html ROS as noted in the HPI This 54 year old male was admitted to [facility] 02/23/19 for continued care and rehab after hospitalization for fever and lower extremity edema/pain. Patient has history of alcoholic liver disease and cirrhosis and is on transplant list. He was initially admitted to [facility], then transferred to [facility] for bacteremia. His blood cultures grew ESBL E. Coli and he started on antibiotics, initially Zosyn which was changed to meropenem, then ertapenem to complete a 10 day course. Patient has history recurrent bacteremia in past few months. During most recent prior [facility] admission, it was suspected that likely source of bacteremia was biliary. Patient had worsened R>L leg edema and US was negative at [facility] for DVT. CT of right lower extremity [...] MOLST: full code Brittaney Mcelroy MD [address] [facility], [address], [place], [address], [facility] 03/02/2019 08:11:36
--- OUTSIDE RECORDS SUMMARY | 2025-03-08 15:27 | XMS_ITS | Encounter Summary ---
Author Organization [employer] Address [address] [place] [address] 7 [place] [address] Care Team Providers Care Hotbed Operator Name Role Phone Agustin Marrero MD Primary Care Provide r Reason for Visit * Reason Onset Date Comments Med Refill 05/26/2023 Encounter Details Date Type Department Care Team ([facility] st Contact Info) Description 05/26/2023 Telephone [facility] MEDICINE [address] [place], [place] [phone] Agustin Marrero MD [address] [place], [place] [phone] Med Refill Social History Tobacco Use Types [...] LITE test strip To be sent to: [facility]/pharmacy #[address] [place] [address] - [address] [place] [address] documented in this encounter Plan of Treatment Upcoming Encounters Date Type Department Care Team (Late st Contact Info) Description 03/24/2025 9:00 AM EST Clinical Support [facility] MEDICINE [address] [place] [address] Shwetha Collado RN [address] [place] [address] 05/31/2025 8:00 AM EST Office Visit [facility] ADULT DENTAL [address] [place] [address] Catherine Antonio [address] [place] [address] documented as of this encounter Visit Diagnoses Not on filedocumented in this encounter Care Teams Hotbed Operator Relationship Specialty Start Date End Date Agustin Marrero MD [address] [place] [address] PCP - General Internal Medicine 01/25/14 [facility] 06/13/16 documented as of this encounter
--- OUTSIDE RECORDS SUMMARY | 2025-03-08 15:27 | XMS_ITS | Encounter Summary ---
Author Organization [employer] Address [address] [place] [address] 7t [place] [address] Care Team Providers Care Electrical Development Engineer Name Role Phone Agustin Marrero MD Primary Care Provide r Reason for Visit * Reason Comments Med Refill Encounter Details Date Type Department Care Team ([facility] st Contact Info) Description 06/04/2023 Refill [facility] MED[facility] [address] [place], [place] [phone] Natasha Nguyen MD [address] [place] [address] Gastroesophageal reflux disease, unspecified whether esophagitis present [...] Description 03/24/2025 9:00 AM EST Clinical Support [facility] MEDICINE [address] [place] [address] Shwetha Collado RN [address] [place] [address] 05/31/2025 8:00 AM EST Office Visit [facility] ADULT DENTAL [address] [place] [address] Catherine Antonio [address] [place] [address] documented as of this encounter Visit Diagnoses Diagnosis Gastroesophageal reflux disease, unspecified whether esophagitis present documented in this encounter Care Teams Electrical Development Engineer Relationship Specialty Start Date End Date Agustin Marrero MD [address] [place] [address] PCP - General Internal Medicine 01/25/14 [facility] 06/13/16 documented as of this encounter
--- OUTSIDE RECORDS SUMMARY | 2025-03-08 15:27 | XMS_ITS | Encounter Summary ---
Author Organization [employer] Address [address] [place] [address] 7 [place] [address] Care Team Providers Care Telemetry Technician Name Role Phone Agustin Marrero MD Primary Care Provide r Reason for Visit * Reason Onset Date Comments Error 05/12/2023 Encounter Details Date Type Department Care Team ([facility] st Contact Info) Description 05/12/2023 Telephone [facility] MEDICINE [address] [place], [place] [phone] Agustin Marrero MD [address] [place], [place] [phone] Error Social History Tobacco Use Types Packs/Day [...] Description 03/24/2025 9:00 AM EST Clinical Support [facility] MEDICINE [address] [place] [address] Shwetha Collado, KATALINA [address] [place] [address] 05/31/2025 8:00 AM EST Office Visit [facility] ADULT DENTAL [address] [place] [address] Paco, Catherine [address] [place] [address] documented as of this encounter Visit Diagnoses Not on filedocumented in this encounter Care Teams Telemetry Technician Relationship Specialty Start Date End Date Agustin Marrero MD [address] [place] [address] PCP - General Internal Medicine 01/25/14 [facility] 06/13/16 documented as of this encounter
--- OUTSIDE RECORDS SUMMARY | 2025-03-08 15:27 | XMS_ITS | Encounter Summary ---
Author Organization [employer] Address [address] [place] [address] 7t [place] [address] Care Team Providers Care Magisterial District Judge Name Role Phone Agustin Marrero MD Primary Care Provide r Encounter Details Date Type Department Care Team ([facility] st Contact Info) Description 05/05/2023 Telephone [facility] MEDICINE [address] [place], [place] [phone] Agustin Marrero MD [address] [place], [place] [phone] Social History Tobacco Use Types Packs/Day Years [...] Description 03/24/2025 9:00 AM EST Clinical Support [facility] MEDICINE [address] [place] [address] Shwetha Collado RN [address] [place] [address] 05/31/2025 8:00 AM EST Office Visit [facility] ADULT DENTAL [address] [place] [address] Catherine Antonio [address] [place] [address] documented as of this encounter Visit Diagnoses Not on filedocumented in this encounter Care Teams Magisterial District Judge Relationship Specialty Start Date End Date Agustin Marrero MD [address] [place] [address] PCP - General Internal Medicine 01/25/14 [facility] 06/13/16 documented as of this encounter
--- OUTSIDE RECORDS SUMMARY | 2025-03-08 15:27 | XMS_ITS | Encounter Summary ---
Author Organization [facility] Address [address] [place] [address] Care Team Providers Care Backwinder Name Role Phone Agustin Mix Primary Care Provider + Encounter Details Date Type Department Care Team (Late st Contact Info) Description 04/02/2020 Orders Only [facility] Interventional Radiology [address] [place] [address] Kathy Bowling MD [address] [place], [place] [phone] Social History Tobacco Use Types Packs/Day Years [...] Info) Description 03/27/2025 10:30 AM EST Follow-Up [facility] Liver Transplant Services [address] [place], [place] [phone] Dylan Phelps MD [address] [place] [address] documented as of this encounter Visit Diagnoses Not on filedocumented in this encounter Additional Health Concerns Infection Onset Date Last Indicated Resolved Time COVID-19 - Confirmed infection 05/01/2020 05/07/2020 06/01/2020 5:06 PM EST COVID-19 - Suspected infection 05/10/2020 05/10/2020 05/24/2020 10:34 PM EST documented as of this encounter Care Teams Backwinder Relationship Specialty Start Date End Date Agustin Mix [address] [place] [address] PCP - General Internal Medicine 04/15/17 documented as of this encounter
== END 2025-03-08 08:28 | disposition home or self-care (01) ==
LOC: HO.ENCR 07:53
PROVIDERS: PCP Internal Medicine; Visit Provider Internal Medicine Endocrinology, Diabetes & Metabolism
DX: N62 Hypertrophy of breast (principal)
CPT/HCPCS: 99213

== ENCOUNTER → 2025-03-08 07:53 | Outpatient (BNVA) | payer OTHER, SELFPAY | PROVIDERS: PCP Internal Medicine; Visit Provider Internal Medicine Endocrinology, Diabetes & Metabolism | DX: N62 Hypertrophy of breast (principal) | CPT/HCPCS: 99212 ==

== ENCOUNTER 2025-03-15 07:12 | Outpatient (REF) | payer OTHER, SELFPAY ==
--- OUTSIDE RECORDS SUMMARY | 2024-05-26 05:15 | XMS_ITS ---
Author Organization [facility] Reji bill [place] Address [address] [facility] [place] [address] Care Team Providers Care Conference Coordinator Name Role Phone Nura Connelly MD, Agustin Primary Care Provide r Unavailable Sun Jj Unavailable [phone] Yovanny Long Unavailable [phone] REASON FOR VISIT last visit pcp 12/31/23, [...] Orally Once a day Active Vitamin D3 899902 UNIT/GM as directed Active Losartan Potassium 25 [...] nsmoker Encounters Encounter Location Date [facility] [facility] [address] 05/26/2024 Yovanny Long Onychomycosis B35.1 ; Pain [...] Provider Name:Sun kenney, 03/23/2025 10:00:00 AM, [address] [place] [address], [place], [address], Procedure Notes * Category Sub-Category Detail Notes [...] use of a nail nipper and/or dremel-type knife grinder, to a more viable healthy nail [...] to maintain effectiveness in symptomatic relief - 23555 Progress Notes * Edward JONDOB:[birth year] (60 yo M)Acc No.[id number]:05/26/2024 Progress Note Patient: Edward WINTER Provider: Kishan Long D.P.M. :1965 A ge:59 Y S ex:Male Date:05/26/2024 Address:[address] [place], [place] [phone] Pcp:Agustin Connelly MD Subjective: * Chief Complaints: [...] enies. C ardiovascular: Pacemaker d enies. 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 W PW d enies. C [...] as directed Orally , Taking Vitamin D3 943314 UNIT/GM Powder as directed , Taking Losartan [...] use of a nail nipper and/or dremel-type knife grinder, to a more viable healthy nail [...] to maintain effectiveness in symptomatic relief - 03598. * Procedure Codes: 1 1721 DEBRIDE NAIL, [...] 0 05/26/2024 Generated for Francisco reagan/Eloina/Samantha on: 05/15/2024 07:16 AM EST History and Physical Notes * [...]
--- OUTSIDE RECORDS SUMMARY | 2024-08-29 06:00 | XMS_ITS ---
Author Organization [facility] Address [address] [facility] [place] [address] Care Team Providers Care Home Performance Consultant Name Role Phone Nura Connelly MD, Agustin Primary Care Provide r Unavailable Sun Jj Unavailable [phone] Encounters Encounter Location Date Provider Diagnosis [address] [address] 08/29/2024 Sun Jj Plan Of Treatment Next Appt Details Provider Name:Sun kenney, 03/23/2025 10:00:00 AM, [address] [place] [address], [place], [address], Progress Notes * Edward JONDOB:[birth year] (60 yo M)Acc No.[id number]:08/29/2024 Progress Note Patient: Edward WINTER Provider: Hola Jj DPM :1965 A ge:59 Y S ex:Male Date:08/29/2024 Address:[address] [place] [address] [address], [place] Pcp:Agustin Connelly MD Subjective: * Chief Complaints: * * Medical History: Objective: * Vitals: Assessment: Plan: * Treatment: * Images: * The named appointment provid er may or may not be the originator of this progress note, and it is not deemed complete until electronically signed by the appointment provider. Sign off status: Pending * Provider: Hola Jj DPM Date: 0 08/29/2024 Generated for Francisco reagan/Eloina/Samantha on: 1 05/15/2024 07:17 AM EST
--- OUTSIDE RECORDS SUMMARY | 2025-03-15 07:16 | XMS_ITS | Encounter Summary ---
Author Organization [employer] Address [address] [place] [address] 7t [place] [address] Care Team Providers Care Gas Main And Line Fitter Name Role Phone Agustin Marrero MD Primary Care Provide r Encounter Details Date Type Department Care Team ([facility] st Contact Info) Description 12/24/2023 Telephone [facility] MEDICINE [address] [place], [place] [phone] Agustin Marrero MD [address] [place], [place] [phone] Social History Tobacco Use Types Packs/Day Years [...] Description 03/24/2025 9:00 AM EST Clinical Support [facility] MEDICINE [address] [place] [address] Shwetha Collado, KATALINA [address] [place] [address] 05/31/2025 8:00 AM EST Office Visit [facility] ADULT DENTAL [address] [place] [address] Paco, Catherine [address] [place] [address] documented as of this encounter Visit Diagnoses Not on filedocumented in this encounter Additional Health Concerns Assessment Noted Time PHQ-9 Depression Total Score: 0 12/03/19 10:31 AM EDT documented as of this encounter Care Teams Gas Main And Line Fitter Relationship Specialty Start Date End Date Agustin Marrero MD [address] [place] [address] PCP - General Internal Medicine 01/25/14 [facility] 06/13/16 documented as of this encounter
--- OUTSIDE RECORDS SUMMARY | 2025-03-15 07:16 | XMS_ITS | Encounter Summary ---
Author Organization [employer] Address [address] [place] [address] 7t [place] [address] Care Team Providers Care House Mother Name Role Phone Agustin Marrero MD Primary Care Provide r Reason for Visit * Reason Comments Med Refill Encounter Details Date Type Department Care Team ([facility] st Contact Info) Description 12/24/2023 Refill [facility] MEDICINE [address] [place], [place] [phone] Agustin Marrero MD [address] [place], [place] [phone] Chronic midline low back pain without sciatica [...] Description 03/24/2025 9:00 AM EST Clinical Support [facility] MEDICINE [address] [place] [address] Shwetha Collado, KATALINA [address] [place] [address] 05/31/2025 8:00 AM EST Office Visit [facility] ADULT DENTAL [address] [place] [address] Paco, Catherine [address] [place] [address] documented as of this encounter Visit Diagnoses Diagnosis Chronic midline low back pain without sciatica documented in this encounter Additional Health Concerns Assessment Noted Time PHQ-9 Depression Total Score: 0 12/03/19 24 10:31 AM EDT documented as of this encounter Care Teams House Mother Relationship Specialty Start Date End Date Agustin Marrero MD [address] [place] [address] PCP - General Internal Medicine 01/25/14 [facility] 06/13/16 documented as of this encounter
--- OUTSIDE RECORDS SUMMARY | 2025-03-15 07:16 | XMS_ITS | Encounter Summary ---
Author Organization [employer] Address [address] [place] [address] 7 [place] [address] Care Team Providers Care Mechanical Striper Name Role Phone Agustin Marrero MD Primary Care Provide r Reason for Visit * Reason Onset Date Comments fyi 12/13/2024 Encounter Details Date Type Department Care Team ([facility] st Contact Info) Description 12/13/2024 Telephone [facility] [address] [place], [place] [phone] Agustin Marrero MD 230 [place], [place] [phone] fyi Social History Tobacco Use Types Packs/Day [...] 102/62 recorded. Call to Jessica DARDEN with [facility] at [phone], reports BP of 164/105 , pt had [...] to Edward Fonseca to triage below at [phone]. Reports took losartan after visiting nurse advised [...] to PCP as FYI and to advise [place] Team Primary care team nurses of plan [...] 8:16 AM EDT Tc from Jessica at [facility] called to inform that pt had a elevated diastolic bp , 164/105. Pt denies any cardiac symptoms. Contact Jessica at [phone] documented in this encounter Plan of Treatment Upcoming Encounters Date Type Department Care Team (Late st Contact Info) Description 03/24/2025 9:00 AM EST Clinical Support [facility] [address] [place] [address] Shwetha Collado RN 505 [place] [address] 05/31/2025 8:00 AM EST Office Visit [facility] ADULT DENTAL [address] [place] [address] Paco, Catherine [address] [place] [address] documented as of this encounter Visit Diagnoses Not on filedocumented in this encounter Additional Health Concerns Assessment Noted Time PHQ-9 Depression Total Score: 0 11/02/19 25 9:25 AM EDT documented as of this encounter Care Teams Mechanical Striper Relationship Specialty Start Date End Date Agustin Marrero MD 230 [place] [address] PCP - General Internal Medicine 01/25/14 [facility] 06/13/16 documented as of this encounter
--- OUTSIDE RECORDS SUMMARY | 2025-03-15 07:16 | XMS_ITS | Encounter Summary ---
Author Organization [employer] Address [address] [place] [address] 7t [place] [address] Care Team Providers Care Cargo Supervisor Name Role Phone Agustin Marrero MD Primary Care Provide r Reason for Visit * Reason Comments Med Refill Encounter Details Date Type Department Care Team ([facility] st Contact Info) Description 2024 Refill [facility] [address] [place], [place] [phone] Agustin Marrero MD [address] [place] [address] Social History Tobacco Use Types Packs/Day Years [...] EST Clinical Support [facility] [address] [place] [address] Shwetha Collado, KATALINA [address] [place] [address] 05/31/2025 8:00 AM EST Office Visit [facility] ADULT DENTAL [address] [place] [address] Paco, Catherine [address] [place] [address] documented as of this encounter Visit Diagnoses Not on filedocumented in this encounter Additional Health Concerns Assessment Noted Time PHQ-9 Depression Total Score: 0 12/03/19 24 10:31 AM EDT documented as of this encounter Care Teams Cargo Supervisor Relationship Specialty Start Date End Date Agustin Marrero MD [address] [place] [address] PCP - General Internal Medicine 01/25/14 [facility] 06/13/16 documented as of this encounter
--- OUTSIDE RECORDS SUMMARY | 2025-03-15 07:16 | XMS_ITS | Encounter Summary ---
Author Organization [employer] Address [address] [place] [address] 7t [place] [address] Care Team Providers Care Resp Therapist Name Role Phone Agustin Marrero MD Primary Care Provide r Reason for Visit * Reason Comments Med Refill Encounter Details Date Type Department Care Team ([facility] st Contact Info) Description 11/02/2023 Refill [facility] MED[facility]INE [address] [place], [place] [phone] Lela Wu MD 230 [place], [place] [phone] Primary insomnia Social History Tobacco Use Types [...] Description 03/24/2025 9:00 AM EST Clinical Support [facility] MED[facility]INE [address] [place] [address] Shwetha Collado RN 505 [place] [address] 05/31/2025 8:00 AM EST Office Visit [facility] ADULT DENTAL [address] [place] [address] Paco, Catherine [address] [place] [address] documented as of this encounter Visit Diagnoses Diagnosis Primary insomnia Persistent disorder of initiating or maintaining sleep documented in this encounter Additional Health Concerns Assessment Noted Time PHQ-9 Depression Total Score: 5 06/16/19 24 9:35 AM EST documented as of this encounter Care Teams Resp Therapist Relationship Specialty Start Date End Date Agustin Marrero MD [address] [place] [address] PCP - General Internal Medicine 01/25/14 [facility] 06/13/16 documented as of this encounter
--- OUTSIDE RECORDS SUMMARY | 2025-03-15 07:17 | XMS_ITS | Encounter Summary ---
Author Organization [facility] Address [address] [place] [address] Care Team Providers Care Assembler Radio And Electrical Name Role Phone Agustin Mix Primary Care Provider + Encounter Details Date Type Department Care Team (Late st Contact Info) Description 01/21/2017 Transplant Conversio n Encounter [facility] Health Information Management [address] [place] [address] Provider, Historical [facility] Social History Tobacco Use Types Packs/Day Years [...] Info) Description 03/27/2025 10:30 AM EST Follow-[facility] Transplant Services [address] [place] [address] Dylan Phelps MD [address] [place] [address] documented as of this encounter Visit Diagnoses Not on filedocumented in this encounter Additional Health Concerns Infection Onset Date Last Indicated Resolved Time 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 + BC at [facility] > 6 months ago - can D/C contact isolation 01/20/2019 02/10/2019 08/10/2019 9:27 AM E DT COVID-19 - Suspected infection 03/05/2020 03/17/2020 03/17/2020 7:55 PM EST COVID-19 - Confirmed infection 05/01/2020 05/07/2020 06/01/2020 5:06 PM EST COVID-19 - Suspected infection 05/10/2020 05/10/2020 05/24/2020 10:34 PM EST documented as of this encounter Care Teams Assembler Radio And Electrical Relationship Specialty Start Date End Date Agustin Mix [address] [place] [address] PCP - General Internal Medicine 04/15/17 documented as of this encounter
--- OUTSIDE RECORDS SUMMARY | 2025-03-15 07:17 | XMS_ITS | Patient Health Record ---
Author Organization [facility] Address [address] [facility] [place] [address] Care Team Providers Care Vending Machine Attendant Name Role Phone Nura Connelly MD, Agustin Primary Care Provide r Unavailable Sun Jj Unavailable [phone] Yovanny Long Unavailable [phone] Allergies No Known Allergies Results Component Value [...] MG as directed Orally Active Vitamin D3 635561 UNIT/GM as directed Active Tacrolimus 1 MG [...] Problem Acquired hammer toe of right foot (2651463473637928 ) Other hammer toe(s) (acquired), right foot (M20.41) Active confirmed Problem Acquired hammer toe of left foot (9864345210788842 ) Other hammer toe(s) (acquired), left foot (M20.42) Active confirmed Problem Polyneuropathy due to type 2 diabetes mellitus (755228013) Type 2 diabetes mellitus with diabetic polyneuropathy (E11.42) Active confirmed Vital Signs Heart Rate 68 /min 06/17/2024 Blood pressure diastolic 81 mm Hg 01/12/2025 Height 5ft 7in in 01/12/2025 Blood pressure systolic 134 mm Hg 01/12/2025 Weight 205 lbs 01/12/2025 BMI 32.1 kg/m2 01/12/2025 Procedures Procedure Date Ordered Date Performed Result Body Sit e 90205-DMTQOVJ NAIL, 6 OR MORE 06/17/2024 N/A Encounters Encounter Location Date Provider Diagnosis [facility] [address] 06/17/2024 Yovanny Long Onychomycosis B35.1 and Type 2 diabetes mellitus with other diabetic neurological complication [facility] [address] 11/03/2024 Sun Jj Type 2 diabetes mellitus with diabetic polyneuropathy E11.42 ; Other hammer toe(s) (acquired), right foot M20.41 ; Tinea unguium B35.1 ; Tinea pedis of both feet B35.3 and Other hammer toe(s) (acquired), left foot M20.[address] [facility] [address] 01/12/2025 Sun Jj Other hammer toe(s) (acquired), right foot M20.41 ; Tinea pedis of both feet B35.3 ; Type 2 diabetes mellitus with diabetic polyneuropathy E11.42 ; Tinea unguium B35.1 and Other hammer toe(s) (acquired), left foot M20.42 [facility] [place] [address] [place] [address] 05/26/2024 [facility] Long [facility] [address] 11/03/2024 Sun Jj Assessments Encounter Date Diagnosis [...] E11.42) 11/03/2024 Tinea unguium (ICD-10 - B35.1) 11/03/2024 Tinea pedis of both feet (ICD-10 - B35.3) Patient Educated with: ATHELETE .pdf (ATHELETE .pdf) 01/12/2025 Tinea unguium (ICD-10 - B35.1) 01/12/2025 Other hammer toe(s) (acquired), left foot (ICD-10 - M20.42) 11/03/2024 Other hammer toe(s) (acquired), left foot (ICD-10 - M20.42) 05/26/2024 Other 06/17/2024 Other Application of [place]-Soothe skin lotion to his feet Plan Of Treatment Pending Test Test Name Order Date [id number] NAIL, 6 OR MORE 03/10/2024 [id number] NAIL, 6 OR MORE 06/17/2024 Next Appt Details Provider Name:Sun kenney, 03/23/2025 10:00:00 AM, [address] [facility], [place], [address], Insurance Providers Payer Name Payer Address Payer Phone Subscriber Number Group Number Insured Name Patient Relationship to Insured Coverage Start Date Coverage End Date [facility] [employer] Claims [address] [place] [id number] Edward Jon Self - patient is the insured Medical (General) History Medical History History ICD Code Back,Hip,and Knee pain Broken bones Cataracts covid-19 Dementia Depression Diabetic Gall bladder problems Hiatal hernia High Blood Pressure Liver disease Psychiatric disorder Surgical History Surgery Date(Month/Year) back surgery 02/2024
--- OUTSIDE RECORDS SUMMARY | 2025-03-15 07:17 | XMS_ITS | Encounter Summary ---
Author Organization [employer] Address [address] [place] [address] 7 [place] [address] Care Team Providers Care Radioactivity Technician Name Role Phone Augstin Marrero MD Primary Care Provide r Reason for Visit * Reason Onset Date Comments Med Refill 10/04/2024 Encounter Details Date Type Department Care Team ([facility] st Contact Info) Description 10/04/2024 Telephone [facility] [address] [place], [place] [phone] Agustin Marrero MD [address] [place], [place] [phone] Med Refill Social History Tobacco Use Types [...] To be sent to: [facility]/pharmacy #[id number] [place] [address] documented in this encounter Plan of Treatment Upcoming Encounters Date Type Department Care Team (Late st Contact Info) Description 03/24/2025 9:00 AM EST Clinical Support [facility] MED[facility]INE [address] [place] [address] Shwetha Collado RN 505 [place] [address] 05/31/2025 8:00 AM EST Office Visit [facility] ADULT DENTAL [address] [place] [address] Catherine Antonio [address] [place] [address] documented as of this encounter Visit Diagnoses Not on filedocumented in this encounter Additional Health Concerns Assessment Noted Time PHQ-9 Depression Total Score: 0 12/03/19 24 10:31 AM EDT documented as of this encounter Care Teams Radioactivity Technician Relationship Specialty Start Date End Date Agustin Marrero MD [address] [place] [address] PCP - General Internal Medicine 01/25/14 [facility] 06/13/16 documented as of this encounter
--- OUTSIDE RECORDS SUMMARY | 2025-03-15 07:17 | XMS_ITS | Encounter Summary ---
Author Organization [facility] Address [address] [place] [address] Care Team Providers Care Commissioned Security Officer Name Role Phone Agustin Mix Primary Care Provider + Encounter Details Date Type Department Care Team (Late st Contact Info) Description 01/13/2020 Orders Only [facility] 2 Rad Act 1 [address] [place] [address] Pawel Sanchez MD [address] [place] [address] Social History Tobacco Use Types Packs/Day Years [...] [facility] [address] [place] [address] Dylan Phelps MD [address] [place] [address] documented as of this encounter Visit Diagnoses Not on filedocumented in this encounter Additional Health Concerns Infection Onset Date Last Indicated Resolved Time COVID-19 - Suspected infection 03/05/2020 03/17/2020 03/17/2020 7:55 PM EST COVID-19 - Confirmed infection 05/01/2020 05/07/2020 06/01/2020 5:06 PM EST COVID-19 - Suspected infection 05/10/2020 05/10/2020 05/24/2020 10:34 PM EST documented as of this encounter Care Teams Commissioned Security Officer Relationship Specialty Start Date End Date Agustin Mix [address] [place] [address] PCP - General Internal Medicine 04/15/17 documented as of this encounter
--- OUTSIDE RECORDS SUMMARY | 2025-03-15 07:17 | XMS_ITS | Encounter Summary ---
Author Organization [employer] Address [address] [place] [address] 7 [place] [address] Care Team Providers Care Loom Starter Name Role Phone Agustin Marrero MD Primary Care Provide r Reason for Visit * Reason Onset Date Comments Med Refill 09/05/2024 Encounter Details Date Type Department Care Team ([facility] st Contact Info) Description 09/05/2024 Telephone [facility] [address] [place], [place] [phone] Agustin Marrero MD [address] [place], [place] [phone] Med Refill Social History Tobacco Use Types [...] 50 MG tablet To be sent to: [facility]/pharmacy #[id number] [place] [address] documented in this encounter Plan of Treatment Upcoming Encounters Date Type Department Care Team (Late st Contact Info) Description 03/24/2025 9:00 AM EST Clinical Support [facility] [address] [place], [place] [phone] Shwetha Collado RN [address] [place] [address] 05/31/2025 8:00 AM EST Office Visit [facility] ADULT DENTAL [address] [place], [place] [phone] Catherine Antonio [address] [place] [address] documented as of this encounter Visit Diagnoses Not on filedocumented in this encounter Additional Health Concerns Assessment Noted Time PHQ-9 Depression Total Score: 0 08/15/20 24 10:31 AM EDT documented as of this encounter Care Teams Loom Starter Relationship Specialty Start Date End Date Agustin Marrero MD [address] [place] [address] PCP - General Internal Medicine 01/25/14 [facility] 06/13/16 documented as of this encounter
--- OUTSIDE RECORDS SUMMARY | 2025-03-15 07:17 | XMS_ITS | Encounter Summary ---
Author Organization [employer] Address [address] [address] 7 [place] [address] Care Team Providers Care Landscape Architect And Planner Name Role Phone Agustin Marrero MD Primary Care Provide r Reason for Visit * Reason Onset Date Comments Med Refill 03/01/2024 Encounter Details Date Type Department Care Team ([facility] st Contact Info) Description 03/01/2024 Telephone [facility] MEDICINE [address] [place], [place] [phone] Agustin Marrero MD [address] [place], [place] [phone] Med Refill Social History Tobacco Use Types [...] 03/01/2024 2:24 PM EST Received fax from [facility] requesting script clarification need directions. * Telephone Encounter - Manjeet Mclaughlin - 03/01/2024 2:21 PM EST TC from pt requesting medication refill. Medications needing refill : traMADol (Ultram) 50 MG table To be sent to: [facility]/pharmacy #[id number] documented in this encounter Plan of Treatment Upcoming Encounters Date Type Department Care Team (Late st Contact Info) Description 03/24/2025 9:00 AM EST Clinical Support [facility] MEDICINE [address] [place] [address] Shwetha Collado RN [address] [place] [address] 05/31/2025 8:00 AM EST Office Visit [facility] ADULT DENTAL [address] [place] [address] Catherine Antonio [address] [place] [address] documented as of this encounter Visit Diagnoses Not on filedocumented in this encounter Additional Health Concerns Assessment Noted Time PHQ-9 Depression Total Score: 0 12/03/19 10:31 AM EDT documented as of this encounter Care Teams Landscape Architect And Planner Relationship Specialty Start Date End Date Agustin Marrero MD [address] [place] [address] PCP - General Internal Medicine 01/25/14 [facility] 06/13/16 documented as of this encounter
--- OUTSIDE RECORDS SUMMARY | 2025-03-15 07:17 | XMS_ITS | Encounter Summary ---
Author Organization [employer] Address [address] [place] [address] 7 [place] [address] Care Team Providers Care Montessori Lead Teacher Name Role Phone Agustin Marrero MD Primary Care Provide r Reason for Visit * Reason Onset Date Comments Med Refill 03/01/2024 Encounter Details Date Type Department Care Team ([facility] st Contact Info) Description 03/01/2024 Telephone [facility] MED[facility]INE [address] [place], [place] [phone] Agustin Marrero MD 230 [place], [place] [phone] Med Refill Social History Tobacco Use Types [...] 2:22 PM EST Medication was sent to [facility][id number] on 02/29/24. * Telephone Encounter - Manjeet Mclaughlin - 03/01/2024 2:17 PM EST TC from pt requesting medication refill. Medications needing refill : 1- zolpidem (Ambien) 10 MG tablet To be sent to: [facility]/pharmacy #[id number] documented in this encounter Plan of Treatment Upcoming Encounters Date Type Department Care Team (Late st Contact Info) Description 03/24/2025 9:00 AM EST Clinical Support [facility] MED[facility]INE [address] [place] [address] Shwetha Collado RN [address] [place] [address] 05/31/2025 8:00 AM EST Office Visit [facility] ADULT DENTAL [address] [place] [address] Catherine Antonio [address] [place] [address] documented as of this encounter Visit Diagnoses Not on filedocumented in this encounter Additional Health Concerns Assessment Noted Time PHQ-9 Depression Total Score: 0 12/03/19 10:31 AM EDT documented as of this encounter Care Teams Montessori Lead Teacher Relationship Specialty Start Date End Date Augstin Marrero MD [address] [place] [address] PCP - General Internal Medicine 01/25/14 [facility] 06/13/16 documented as of this encounter
--- OUTSIDE RECORDS SUMMARY | 2025-03-15 07:17 | XMS_ITS | Encounter Summary ---
Author Organization [employer] Address [address] [place] [address] 7 [place] [address] Care Team Providers Care Sales Data Analyst Name Role Phone Agustin Marrero MD Primary Care Provide r Reason for Visit * Reason Onset Date Comments Med Refill 09/13/2024 Encounter Details Date Type Department Care Team ([facility] st Contact Info) Description 09/13/2024 Telephone [facility] MEDICINE [address] [place], [place] [phone] Agustin Marrero MD [address] [place], [place] [phone] Med Refill Social History Tobacco Use Types [...] To be sent to: [facility]/pharmacy #[address] [place] [address] documented in this encounter Plan of Treatment Upcoming Encounters Date Type Department Care Team (Late st Contact Info) Description 03/24/2025 9:00 AM EST Clinical Support [facility] MEDICINE [address] [place] [address] Shwetha Collado RN [address] [place] [address] 05/31/2025 8:00 AM EST Office Visit [facility] ADULT DENTAL [address] [place] [address] Catherine Antonio [address] [place] [address] documented as of this encounter Visit Diagnoses Not on filedocumented in this encounter Additional Health Concerns Assessment Noted Time PHQ-9 Depression Total Score: 0 12/03/19 24 10:31 AM EDT documented as of this encounter Care Teams Sales Data Analyst Relationship Specialty Start Date End Date Agustin Marrero MD [address] [place] [address] PCP - General Internal Medicine 01/25/14 [facility] 06/13/16 documented as of this encounter
--- OUTSIDE RECORDS SUMMARY | 2025-03-15 07:17 | XMS_ITS | Encounter Summary ---
Author Organization [employer] Address [address] [place] [address] 7t [place] [address] Care Team Providers Care Stogie Packer Name Role Phone Agustin Marrero MD Primary Care Provide r Reason for Visit * Reason Comments Med Refill Encounter Details Date Type Department Care Team ([facility] st Contact Info) Description 10/20/2023 Refill [facility] [address] [place], [place] [phone] Agustin Marrero MD [address] [place] [address] Chronic midline low back pain without sciatica [...] Description 03/24/2025 9:00 AM EST Clinical Support [facility] MEDICINE [address] [place] [address] Shwetha Collado RN [address] [place] [address] 05/31/2025 8:00 AM EST Office Visit [facility] ADULT DENTAL [address] [place] [address] Matty Antonioaris [address] [place] [address] documented as of this encounter Visit Diagnoses Diagnosis Chronic midline low back pain without sciatica documented in this encounter Additional Health Concerns Assessment Noted Time PHQ-9 Depression Total Score: 5 06/16/19 9:35 AM EST documented as of this encounter Care Teams Stogie Packer Relationship Specialty Start Date End Date Agustin Marrero MD [address] [place] [address] PCP - General Internal Medicine 01/25/14 [facility] 06/13/16 documented as of this encounter
--- OUTSIDE RECORDS SUMMARY | 2025-03-15 07:17 | XMS_ITS | Clinical Summary ---
Author Organization [employer] Address [address] [place] [address] 7[address] [place] [address] Care Team Providers Care Gas Station Service Attendant Name Role Phone Agustin Marrero MD Primary Care Provide r Allergies No known active allergies Medications * This document contains information received from the source organization and may not represent a complete record from that organization. Blood Glucose Monitoring Suppl (Zeccoyle Tasley Lite) w/Device kit TEST 1 TIMES BY INTRADERMAL ROUTE EVERY DAY 022 Active Continuous Blood Gluc Ovens Supervisor (ZoundsStyle Arvin 2 Uehling) device Active ferrous sulfate 325 (65 Fe) [...] OLINDA TABLETA TODOS LOS D CON LA PROCESS PROJECT ENGINEER Active sodium polystyrene sulfonate (Kayexalate) powder TAKE [...] long-term current use of insulin ([facility]) USE 1 EACH [...] 2 diabetes mellitus without complications ([facility]) USE TO TEST BLOOD SUGAR THREE TIMES DAILY 300 strip 3 025 Active traMADol (Ultram) 50 MG [...] long-term current use of insulin ([facility]) USE DIRECTED EVERY [...] long-term current use of insulin ([facility]) Use Insulin as per sliding scale TID (BG 150-200mg/dL: 10 units, 201-250 : 12 units, 251-300: 14 units, 301-350: 16 units, 351-400 18 units, >400 20 units 15 mL 025 Active zolpidem (Ambien) 10 MG tabletIndications :Primary insomnia TOME 1 TABLETA POR VIA ORAL TODOS LOS QUINONES AL ACOSTARSE CUANDO SEA NECESARIO 30 tablet 025 Active cholecalciferol (Vitamin D3) 25 MCG (1000 UT) tabletIndications :Type 2 diabetes mellitus without complication, with long-term current use of insulin (HCC) TAKE 1 TABLET BY MOUTH EVERY DAY 90 tablet 1 025 Active Continuous Glucose Sensor (FreeStyle Arvin 2 Sensor) miscIndications:T ype 2 diabetes mellitus without complication, with long-term current use of insulin (HCC) USE DIRECTED EVERY 14 DAYS 2 each 2 024 2024 Discontinued cholecalciferol (Vitamin D3) 25 MCG (1000 UT) tabletIndications :Type 2 diabetes mellitus without complication, with long-term current use of insulin ([facility]) TOME 1 TABLETA POR VIA ORAL TODOS LOS QUINONES 90 tablet 1 025 2024 Discontinued NovoLOG FLEXPEN 100 UNIT/ML penIndications:Ty pe 2 diabetes mellitus without complication, with long-term current use of insulin ([facility]) Use Insulin as [...] midline low back pain without sciatica Last AD TRAFFICKER Agreement: 09/01/23 Normal oral exam 12/17/2023 Class [...] for mildly dilated CBD. ERCP 11/21/2022 at [facility] showed single severe biliary stricture found in [...] CBD. 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 The stricture was post-surgical. A biliary sphinterotomy was performed. A temporary stent was placed in the CBP They recommended to repeat ERCP in 3 months to remove stent. Pt is already scheduled for 02/20/2023 for ENDOSCOPIC RETROGRADE CHOLANGIOPANCREATOGRAPHY WITH REMOVAL OF FOREIGN BODY(S)/STENT(S)/PANCREATIC DUCT(S) WITH POSSIBLE MODERATE SEDATION [15592 (CPT )] Partial edentulism 01/14/2023 Hospital discharge [...] CBD. Pt is s/p ERCP 11/21/2022 at [facility] Impression: A single severe biliary stricture found [...] local wound injections. He was seen by physician credentialing specialist at [facility] who discussed that he needed someone that [...] local wound injections. He was seen by physician credentialing specialist at [facility] who discussed that he needed someone that [...] was refer to the Pain Clinic at [facility] he has an appointment for 08/03/2022. He [...] units He is under the care of [facility] given that [...] 20 units He isunder the care of [facility] given that he is a liver [...] >400 20 units He was discharged from [facility] diabetes clinic due to non compliance. He isunder the care of [facility] Endocr[facility] given that he is a liver transplant patient, last seen 2024. Hgb A1c 07/05/2024: 7.2 from 7 Eye exam ordered previous visit Microalbumin 04/06/2024 was 68 Foot check risk of zero Pt advised to: adhere to diabetic diet Previous visit pt was referred to Uniform Cap Operator and DE Plan: continue current regimen [...] >400 20 units He was discharged from [facility] diabetes clinic due to non compliance. He isunder the care of [facility] Endocr[facility] given that he is a liver transplant patient, last seen 2024. Hgb A1c 04/05/2024: 7 from 7.4 Eye exam ordered previous visit Microalbumin 11/01/2020 was 43 , ordered today Foot check risk of zero Pt advised to: adhere to diabetic diet Previous visit pt was referred to Uniform Cap Operator and DE Plan: continue current regimen [...] >400 20 units He was discharged from [facility] diabetes [facility] due to non compliance. He isunder the care of [facility] Endocrinology given that he is a liver transplant patient, last seen 04/21/2023. Hgb A1c 12/03/2023: 7.4 from 7.1 Eye exam ordered previous visit Microalbumin 11/01/2020 was 43 Foot check risk of zero Pt advised to: adhere to diabetic diet Previous visit pt was referred to Uniform Cap Operator and DE Plan: continue current regimen [...] >400 20 units He was discharged from [facility] diabetes [facility] due to non compliance. He isunder the care of [facility] Endocrinology given that he is a liver transplant patient, last seen 04/21/2023. Hgb A1c 06/16/2023: 7.1 Eye exam ordered previous visit Microalbumin 11/01/2020 was 43 Foot check risk of zero Pt advised to: adhere to diabetic diet Previous visit pt was referred to Uniform Cap Operator and DE Plan: continue current regimen [...] >400 20 units He was discharged from [facility] diabetes clinic due to non compliance. He is supposed to be under the care of [facility] Endocrinology given that he is a liver transplant patient, last seen 08/01/2021. He had an appointment scheduled in August but he no showed. Today he tells me he will stay at [facility] Hgb A1c 02/12/2023 was 6.7 Eye exam ordered previous visit Microalbumin 11/01/2020 was 43 Foot check risk of zero Pt advised to: adhere to diabetic diet Previous visit pt was referred to Uniform Cap Operator and DE Plan: continue current regimen [...] >400 20 units He was discharged from [facility] diabetes clinic due to non compliance. He is supposed to be under the care of [facility] Endocrinology given that he is a liver transplant patient, last seen 08/01/2021. He had an appointment scheduled in August but he no showed. Today he tells me he will stay at [facility] Hgb A1c 09/02/2021 was 6.5 Eye exam ordered previous visit Microalbumin 11/01/2020 was 43 Foot check risk of zero Pt advised to: adhere to diabetic diet Previous visit pt was referred to Uniform Cap Operator and DE Plan: continue current regimen [...] >400 20 units He was discharged from [facility] diabetes clinic due to non compliance He is now under the care of [facility] Endocrinology given that he is a liver transplant patient, last seen 08/01/2021 Hgb A1c 09/02/2021 was 6.5 Eye exam ordered previous visit Microalbumin 11/01/2020 was 43 Foot check risk of zero Pt advised to: adhere to diabetic diet Previous visit pt was referred to Uniform Cap Operator and DE Plan: continue current regimen [...] >400 20 units He was discharged from [facility] diabetes clinic due to non compliance He is now under the care of [facility] Endocrinology given that he is a liver transplant patient, last seen 08/01/2021 Hgb A1c 04/22/2021 was 6.2 Eye exam ordered previous visit Microalbumin 11/01/2020 was 43 Foot check risk of zero Pt advised to: adhere to diabetic diet Previous visit pt was referred to Uniform Cap Operator and DE Plan: continue current regimen [...] the care of the liver clinic at [facility], last seen 08/01/2024 Dr Richardson Assessment & Plan (07/05/2024 10:05 AM EDT): Under the care of the liver clinic at [facility] Assessment & Plan (06/16/2023 9:29 AM EST): Under the care of the liver clinic at [facility] Assessment & Plan (04/22/2022 8:26 AM EST): Pt here for a f/u 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 Date Type Department Care Team Description 03/11/2025 Refill [facility] [address] [facility] [place] [address] Agustin Marrero MD Type 2 diabetes mellitus without complication, with long-term current use of insulin (HCC) 03/02/2025 Refill [facility] MEDICINE [address] [facility] [place] [address] Natasha Wall MD Primary insomnia 02/27/2025 Telephone [facility] [place] [address] Agustin Marrero MD Med Refill 02/27/2025 Telephone [facility] [place] [address] Agustin Marrero MD Med Refill 02/26/2025 Refill [facility] MEDICINE [address] [place] [address] Lela Wu MD Chronic midline low back pain without sciatica; Type 2 diabetes mellitus without complication, with long-term current use of insulin (HCC) 02/26/2025 Refill [facility] [place] [address] Natasha Wall MD Primary insomnia 02/23/2025 10:00 AM EST Office Visit [facility] [place] [address] Agustin Marrero MD Type 2 diabetes mellitus without complication, with long-term current use of insulin (HCC) (Primary Dx); Essential hypertension; Other male erectile dysfunction; Gynecomastia; Depression, recurrent (CMS/HCC) 02/23/2025 Telephone [facility] [place] [address] Kasey Chatman RN Durable Medical Equipment 02/23/2025 Travel 02/22/2025 Telephone [facility] [place] [address] Theodora Wolf MA 02/16/2025 Patient Outreach [facility] [address] [place] [address] Agustin Marrero MD Pre-visit Planning (SDOH was already completed) 02/14/2025 Refill [facility] MEDICINE [address] [place] [address] Agustin Marrero MD Type 2 diabetes mellitus without complication, with long-term current use of insulin (HCC) 02/09/2025 Telephone [facility] MEDICINE [address] [place] [address] Agustin Marrero MD order 02/03/2025 Refill [facility] MEDICINE [address] [place] [address] Agustin Marrero MD Primary insomnia 01/28/2025 Refill [facility] MEDICINE [address] [place] [address] Lela Wu MD Chronic midline low back pain without sciatica 01/19/2025 Refill [facility] MEDICINE [address] [place] [address] Agustin Marrero MD Chronic midline low back pain without sciatica 01/18/2025 Telephone [facility] MEDICINE [address] [place] [address] Agustin Marrero MD 01/17/2025 Telephone [facility] MEDICINE [address] [place] [address] Agustin Marrero MD 01/13/2025 Refill [facility] MEDICINE [address] [place] [address] Agustin Marrero MD Type 2 diabetes mellitus without complication, with long-term current use of insulin ([facility]/HCC) 01/06/2025 11:30 AM EDT Clinical Support [facility] MEDICINE [address] [place] [address] Shwetha Collado RN Chronic right-sided thoracic back pain (Primary Dx) 01/06/2025 Refill [facility] [address] [facility] [place] [address] Shwetha Collado RN 01/06/2025 Travel 01/01/2025 Refill [facility] MEDICINE [address] [place] [address] Agustin Marrero MD Gastroesophageal reflux disease, unspecified whether esophagitis present 12/27/2024 Refill [facility] MEDICINE [address] [place] [address] Lela Wu MD Primary insomnia 12/23/2024 Orders Only [facility] External Provider, [facility] 12/20/2024 Refill [facility] MEDICINE [address] [place] [address] Agustin Marrero MD Chronic midline low back pain without sciatica 12/16/2024 Telephone [facility] MEDICINE [address] [place] [address] Agustin Marrero MD Appointment 12/13/2024 Telephone [facility] MEDICINE [address] [place] [address] Agustin Marrero MD fyi from Last 3 Months Immunizations Immunization Administration [...] Description 03/24/2025 9:00 AM EST Clinical Support [facility] MEDICINE [address] [place] [address] Shwetha Collado, RN [address] [place] [address] 05/31/2025 8:00 AM EST Office Visit [facility] ADULT DENTAL [address] [place] [address] Catherine Antonio [address] [place] [address] Health Maintenance Due Date Last Done Comments [...] Media Lot # [id number] Lot# Expiration Date ,399,923 Blood 02/23/2025 10:4 9 AM EST Agustin Connelly MD POINT OF CARE TEST EN TER/EDIT ORDERABLES Final Result * (ABNORMAL) POCT Glucose (02/23/2025 10:49 AM EST) Glucose Blood, POC 252(A) 60 - 200 mg/dL QC Media Lot # [id number] Lot# Expiration Date 360,026 Blood Capillary blood specimen / Unknown 02/23/2025 10:49 AM EST Agustin Connelly MD POINT OF CARE TEST EN TER/EDIT ORDERABLES Final Result * US Scrotum (01/06/2025 12:43 PM EDT) Anatomical Region Laterality Modality Body Ultrasound 01/06/2025 12:4 3 PM EDT Narrative 01/06/2025 12:44 PM EDT [place] [address] Ultrasound Report Signed Patient: Edward Jon MR#: [id number] : 1965 Acct:[id number] Age/Sex: 60 / M ADM Date: 01/05/25 Loc: . Attending Dr: Agustin Mix MD Ordering Physician: Agustin Mix MD Date of Service: 01/05/25 Procedure(s): US scrotum Accession Number(s): [id number] cc: Agustin Mix MD Reason for Exam: [...] 01/06/25 1243 DD/ 1243 TD/TT: 01/06/25 1243 Inventory Clerk: Procedure Note Donotuseinterpreter, Image - 01/06/2025 [place] [address] Ultrasound Report Signed Patient: Jose Armando Jon#: [id number] : 1965Acct:[id number] Age/Sex: 60 / MADM Date: 01/05/25 Loc: HO.US Attending Dr: Agustin Mix MD Ordering Physician: Agustin Mix MD Date of Service: 01/05/25 Procedure(s): US scrotum Accession Number(s): [id number] cc: Agustin Mix MD Reason for Exam: [...] 01/06/25 1243 DD/ 1243 TD/TT: 01/06/25 1243 Inventory Clerk: us Agustin Connelly MD IMG US PROCEDURES [...] / Unknown 01/06/2025 11:48 AM EDT Narrative hSwetha Collado RN - 01/06/2025 11:48 AM EDT .UTOX cup Lot#[id number] Exp. 01/24/26 Internal Pass Control Agustin Connelly MD POINT OF CARE TEST EN TER/EDIT ORDERABLES Final Result * BI Mammogram Diagnostic Tomosynthesis Bilateral (12/23/2024 1:50 PM EDT) Anatomical Region Laterality Modality Breast Bilateral Mammography 12/23/2024 1:50 PM EDT Narrative 12/23/2024 4:47 PM EDT [facility] [address] [place] [address] Mammography Report Signed Patient: Edward Jon MR#: [id number] : 1965 Acct:[id number] Age/Sex: 59 / M ADM Date: 12/23/24 Loc: HO.MAMMO Attending Dr: Freddy Sunshine MD Ordering Physician: Freddy Sunshine MD Results: 2Beni gn Findings Date of Service: 12/23/24 Follow Up: 1 Year From Orig inal Mammogram Procedure(s): MM tomosynthesis diagnostic BI Accession Number(s): [id number] cc: Freddy Sunshine MD; Agustin Mix MD [...] 12/23/24 1644 DD/ 1350 TD/TT: 12/23/24 1350 Inventory Clerk: Procedure Note Donotuseinterpreter, Image - 12/23/[facility] [address] [place], [place] [address] Mammography Report Signed Patient: Edward JonMR#: [id number] : 1965Acct:[id number] Age/Sex: 59 / MADM Date: 12/23/24 Loc: HO.MAMMO Attending Dr: Freddy Sunshine MD Ordering Physician: Freddy Sunshine MDResults: 2Beni gn Findings Date of Service: 12/23/24Follow Up: 1 Year From Orig inal Mammogram Procedure(s): MM tomosynthesis diagnostic BI Accession Number(s): [id number] cc: Freddy Sunshine MD; Agustin Mix MD [...] 12/23/24 1644 DD/ 1350 TD/TT: 12/23/24 1350 Inventory Clerk: [facility] External Provider IMG BI PROCEDURES Final Result * (ABNORMAL) Albumin, Random Urine W/Creatinine (04/06/2024 8:10 AM EST) Creatinine, Urine 216.22 mg/dL [facility] Microalbumin Urine 68.0 mg/L [facility] Microalbum Creatinine Ratio Ur 31.4(H) <30 ug/mg cr [facility] Comment:Albumin/Creatinine R atio Reference Ranges: Normal: < 30 ug/mg creatinine Microalbuminuria: 30 - 300 ug/mg creatinineClinical Albuminuria: > 300 ug/mg creatinine Urine (Urine, Random) 04/06/2024 8:10 AM EST 04/06/2024 11:40 AM EST Agustin Connelly MD LAB URINE ORDERABLES Final Result [facility] [address] [place] [address] [phone] * (ABNORMAL) Lipid Panel, Standard (04/06/2024 8:10 AM EST) Triglycerides 109 <150 mg/dL [facility] Comment:Desirable Triglyceri de: less than 150 mg/dLBorderline High Triglyceride 150-199 mg/dLHigh Triglyceride: 200-499 mg/dLVery High Triglyceride: greater than or equal to 5OO mg/dL Cholesterol 177 <200 mg/dL [facility] Comment:Desirable Cholestero l: less than 200 mg/dLBorderline High Cholesterol: 200-239 mg/dLHigh Cholesterol: greater than 239 mg/dL LDL Cholesterol Calculated 115(H) <100 mg/dL [facility] Comment:Desirable LDL: less than 100 mg/dLNear Optimal/Above Optimal LDL: 110- 129 mg/dLBorderline High LDL: 130-159 mg/dLHigh LDL: 160-189 mg/dLVery High LDL: greater than or equal to 190 mg/dL HDL Cholesterol 41 >40 mg/dL [facility] Comment:Desirable HDL: great er than 40 mg/dL Note: This HDL assay may give artificially low results in patients with liver disease. Blood Venous blood specimen / Unknown 04/06/2024 8:10 AM EST 04/06/2024 11:51 AM EST Agustin Connelly MD LAB BLOOD ORDERABLES Final Result [facility] [address] [place] [phone] * Hm Colonoscopy (06/28/2021) Colonoscopy Normal Normal 06/28/2021 Shanel Chen - 06/28/2021 9:58 AM EST Recommended 3 year follow up per GI notes ( [facility] ) us Historical Provider HEALTH MAINTENANCE Edited Result - Final from Last 3 Months or Most Recently Relevant to Health Maintenance Insurance [facility] [address] [id number] [facility] [place] [id number] Care Teams Gas Station Service Attendant Relationship Specialty Start Date End Date Agustin Marrero MD [address] [place] [address] [place] [address] PCP - General Internal Medicine 01/25/14 [facility] 06/13/16
--- OUTSIDE RECORDS SUMMARY | 2025-03-15 07:17 | XMS_ITS | Encounter Summary ---
Author Organization [facility] Address [address] [place] [address] Care Team Providers Care Merchandising Stock Associate Name Role Phone Agustin Mix Primary Care Provider + Encounter Details Date Type Department Care Team (Late st Contact Info) Description 07/23/2023 Orders Only [facility] Interventional Radiology [address] [place] [address] Pawel Sanchez MD [address] [place] [address] Social History Tobacco Use Types Packs/Day Years [...] Info) Description 03/27/2025 10:30 AM EST Follow-Up [facility] [address] [place] [address] Dylan Phelps MD [address] [place] [address] documented as of this encounter Visit Diagnoses Not on filedocumented in this encounter Care Teams Merchandising Stock Associate Relationship Specialty Start Date End Date Agustin Mix [address] [place] [address] PCP - General Internal Medicine 04/15/17 documented as of this encounter
--- OUTSIDE RECORDS SUMMARY | 2025-03-15 07:17 | XMS_ITS | Encounter Summary ---
Author Organization [employer] Address [address] [place] [address] [address] [place] [address] Care Team Providers Care Bid Clerk Name Role Phone Agustin Marrero MD Primary Care Provide r Reason for Visit * Reason Comments Med Refill Encounter Details Date Type Department Care Team ([facility] st Contact Info) Description 10/28/2023 Refill [facility] MEDICINE [address] [place], [place] [phone] Lela Wu MD [address] [place], [place] [phone] Primary insomnia Social History Tobacco Use Types [...] Description 03/24/2025 9:00 AM EST Clinical Support [facility] MEDICINE [address] [place] [address] Shwetha Collado RN [address] [place] [address] 05/31/2025 8:00 AM EST Office Visit [facility] ADULT DENTAL [address] [place] [address] Paco, Catherine [address] [place] [address] documented as of this encounter Visit Diagnoses Diagnosis Primary insomnia Persistent disorder of initiating or maintaining sleep documented in this encounter Additional Health Concerns Assessment Noted Time PHQ-9 Depression Total Score: 5 06/16/19 24 9:35 AM EST documented as of this encounter Care Teams Bid Clerk Relationship Specialty Start Date End Date Agustin Marrero MD [address] [place] [address] PCP - General Internal Medicine 01/25/14 [facility] 06/13/16 documented as of this encounter
--- OUTSIDE RECORDS SUMMARY | 2025-03-15 07:17 | XMS_ITS | Encounter Summary ---
Author Organization [employer] Address [address] [place] [address] 7 [place] [address] Care Team Providers Care Director Of Customer Service Name Role Phone Agustin Marrero MD Primary Care Provide r Reason for Visit * Reason Comments Med Refill Encounter Details Date Type Department Care Team (Late st Contact Info) Description 05/14/2022 Refill [facility] MEDICINE [address] [place], [place] [phone] Agustin Marrero MD [address] [place] [address] Chronic midline low back pain without sciatica [...] 03/24/2025 9:00 AM EST Clinical Support [facility] MEDICINE [address] [place] [address] Shwetha Collado, RN [address] [place] [address] 05/31/2025 8:00 AM EST Office Visit [facility] ADULT DENTAL [address] [place] [address] Matty Antonioaris [address] [place] [address] documented as of this encounter Visit Diagnoses Diagnosis Chronic midline low back pain without sciatica documented in this encounter Care Teams Director Of Customer Service Relationship Specialty Start Date End Date Agustin Marrero MD [address] [place] [address] PCP - General Internal Medicine 01/25/14 [facility] 06/13/16 documented as of this encounter
--- OUTSIDE RECORDS SUMMARY | 2025-03-15 07:17 | XMS_ITS | Encounter Summary ---
Author Organization [facility] Address [address] [place] [address] Care Team Providers Care Luncheonette Manager Name Role Phone Agustin Mix Primary Care Provider + Encounter Details Date Type Department Care Team (Late st Contact Info) Description 06/28/2020 Telephone [facility] Central Scheduling Department [address] [place] [address] Telephone Intake, Staff Social History Tobacco Use [...] and can be reached at phone number [phone]. Thank you documented in this encounter Plan of Treatment Upcoming Encounters Date Type Department Care Team (Late st Contact Info) Description 03/27/2025 10:30 AM EST Follow-Up [facility] Liver Transplant Services [address] [place], [place] [phone] Dylan Phelps MD [address] [place], [place] [phone] documented as of this encounter Visit Diagnoses Not on filedocumented in this encounter Care Teams Luncheonette Manager Relationship Specialty Start Date End Date Agustin Mix [address] [place] [address] PCP - General Internal Medicine 04/15/17 documented as of this encounter
--- OUTSIDE RECORDS SUMMARY | 2025-03-15 07:17 | XMS_ITS | Encounter Summary ---
Author Organization [employer] Address [address] [place] [address] 7 [place] [address] Care Team Providers Care Sandblaster Glass Name Role Phone Agustin Marrero MD Primary Care Provide r Reason for Visit * Reason Onset Date Comments Med Refill 10/04/2024 Encounter Details Date Type Department Care Team ([facility] st Contact Info) Description 10/04/[address] [facility] MEDICINE [address] [place], [place] [phone] Agustin Marrero MD [address] [place], [place] [phone] Med Refill Social History Tobacco Use Types [...] 50 MG tablet To be sent to: [facility]/pharmacy #[address] [place] [address] documented in this encounter Plan of Treatment Upcoming Encounters Date Type Department Care Team (Late st Contact Info) Description 03/24/2025 9:00 AM EST Clinical Support [facility] MEDICINE [address] [place] [address] Shwetha Collado RN [address] [place] [address] 05/31/2025 8:00 AM EST Office Visit [facility] ADULT DENTAL [address] [place] [address] Catherine Antonio [address] [place] [address] documented as of this encounter Visit Diagnoses Not on filedocumented in this encounter Additional Health Concerns Assessment Noted Time PHQ-9 Depression Total Score: 0 12/03/19 24 10:31 AM EDT documented as of this encounter Care Teams Sandblaster Glass Relationship Specialty Start Date End Date Agustin Marrero MD [address] [place] [address] PCP - General Internal Medicine 01/25/14 [facility] 06/13/16 documented as of this encounter
--- OUTSIDE RECORDS SUMMARY | 2025-03-15 07:17 | XMS_ITS | Encounter Summary ---
Author Organization [facility] Address [address] [place] [address] Care Team Providers Care Hvac Design Mechanical Engineer Name Role Phone Agustin Mix Primary Care Provider + Encounter Details Date Type Department Care Team (Late st Contact Info) Description 01/01/2021 Orders Only [facility] Nuclear Medicine [address] [place] [address] Sreedhar Sotelo MD [address] [place], [place] [phone] Social History Tobacco Use Types Packs/Day Years [...] Info) Description 03/27/2025 10:30 AM EST Follow-Up [facility] Liver Transplant Services [address] [place], [place] 2015655 Dylan Phelps MD [address] [place] [address] documented as of this encounter Visit Diagnoses Not on filedocumented in this encounter Care Teams Hvac Design Mechanical Engineer Relationship Specialty Start Date End Date Agustin Mix [address] [place] [address] PCP - General Internal Medicine 04/15/17 documented as of this encounter
--- OUTSIDE RECORDS SUMMARY | 2025-03-15 07:18 | XMS_ITS | Encounter Summary ---
Author Organization [employer] Address [address] [place] [address] 7 [place] [address] Care Team Providers Care Aircraft Machinist Helper Name Role Phone Agustin Marrero MD Primary Care Provide r Reason for Visit * Reason Comments Med Refill Encounter Details Date Type Department Care Team ([facility] Contact Info) Description 09/04/2022 Refill [facility] MEDICINE [address] [place] [address] Agustin Marrero MD [address] [place] [address] Social History Tobacco Use Types Packs/Day Years [...] Upcoming Encounters Date Type Department Care Team ([facility] Contact Info) Description 03/24/2025 9:00 AM EST Clinical Support [facility] MEDICINE [address] [place] [address] Shwetha Collado, RN [address] [place] [address] 05/31/2025 8:00 AM EST Office Visit [facility] ADULT DENTAL [address] [place] [address] Matty Antonioaris [address] [place] [address] documented as of this encounter Visit Diagnoses Not on filedocumented in this encounter Care Teams Aircraft Machinist Helper Relationship Specialty Start Date End Date Agustin Marrero MD [address] [place] [address] PCP - General Internal Medicine 01/25/14 [facility] 06/13/16 documented as of this encounter
--- OUTSIDE RECORDS SUMMARY | 2025-03-15 07:18 | XMS_ITS | Encounter Summary ---
Author Organization [employer] Address [address] [place] [address] 7 [place] [address] Care Team Providers Care Resource Coordinator Name Role Phone Agustin Marrero MD Primary Care Provide r Reason for Visit * Reason Onset Date Comments Med Refill 02/27/2025 Encounter Details Date Type Department Care Team ([facility] st Contact Info) Description 02/27/2025 Telephone [facility] MEDICINE [address] [place], [place] [phone] Agustin Marrero MD [address] [place], [place] [phone] Med Refill Social History Tobacco Use Types [...] MG tablet To be sent to: [facility]/pharmacy [address] [place] [address] . documented in this encounter Plan of Treatment Upcoming Encounters Date Type Department Care Team (Late st Contact Info) Description 03/24/2025 9:00 AM EST Clinical Support [facility] MEDICINE [address] [place] [address] Shwetha Collado RN [address] [place] [address] 05/31/2025 8:00 AM EST Office Visit [facility] ADULT DENTAL [address] [place] [address] Catherine Antonio [address] [place] [address] documented as of this encounter Visit Diagnoses Not on filedocumented in this encounter Additional Health Concerns Assessment Noted Time PHQ-9 Depression Total Score: 0 11/02/19 25 9:25 AM EDT documented as of this encounter Care Teams Resource Coordinator Relationship Specialty Start Date End Date Agustin Marrero MD [address] [place] [address] PCP - General Internal Medicine 01/25/14 [facility] 06/13/16 documented as of this encounter
--- OUTSIDE RECORDS SUMMARY | 2025-03-15 07:18 | XMS_ITS | Encounter Summary ---
Author Organization [facility] Address [address] [place] [address] Care Team Providers Care Chief Crna Name Role Phone Agustin Mix Primary Care Provider + Encounter Details Date Type Department Care Team (Late st Contact Info) Description 02/29/2020 Orders Only [facility] Ultrasound [address] [place] [address] Sreedhar Sotelo MD [address] [place], [place] [phone] Social History Tobacco Use Types Packs/Day Years [...] Info) Description 03/27/2025 10:30 AM EST Follow-Up [facility] Liver Transplant Services [address] [place] [address] Dylan Phelps MD [address] [place] [address] documented as of this encounter Visit Diagnoses Not on filedocumented in this encounter Additional Health Concerns Infection Onset Date Last Indicated Resolved Time COVID-19 - Suspected infection 03/05/2020 03/17/2020 03/17/2020 7:55 PM EST COVID-19 - Confirmed infection 05/01/2020 05/07/2020 06/01/2020 5:06 PM EST COVID-19 - Suspected infection 05/10/2020 05/10/2020 05/24/2020 10:34 PM EST documented as of this encounter Care Teams Chief Crna Relationship Specialty Start Date End Date Agustin Mix [address] [place] [address] PCP - General Internal Medicine 04/15/17 documented as of this encounter
--- OUTSIDE RECORDS SUMMARY | 2025-03-15 07:18 | XMS_ITS | Encounter Summary ---
Author Organization [employer] Address [address] [place] [address] 7 [place] [address] Care Team Providers Care Manager Public Name Role Phone Agustin Marrero MD Primary Care Provide r Reason for Visit * Reason Onset Date Comments Med Refill 02/27/2025 Encounter Details Date Type Department Care Team ([facility] st Contact Info) Description 02/27/2025 Telephone [facility] MEDICINE [address] [place], [place] [phone] Agustin Marrero MD [address] [place], [place] [phone] Med Refill Social History Tobacco Use Types [...] White LPN - 02/27/2025 12:50 PM EST RETAIL SALESMAN checked on 02/27/25 Ambien to soon for refill last sold on 02/05/25. Novolog pended to PCP. * Telephone Encounter - Jon Chan - 02/27/2025 12:47 PM EST TC from pt requesting medication refill. Medications needing refill : zolpidem (Ambien) 10 MG tablet NovoLOG FLEXPEN 100 UNIT/ML pen To be sent to: [facility]/pharmacy #[id number] [place], [place] - [address] [place] [address] documented in this encounter Plan of Treatment Upcoming Encounters Date Type Department Care Team (Late st Contact Info) Description 03/24/2025 9:00 AM EST Clinical Support [facility] MEDICINE [address] [place], [place] [phone] Shwetha Collado, KATALINA [address] [place], [place] [phone] 05/31/2025 8:00 AM EST Office Visit [facility] ADULT DENTAL [address] [place] [address] Catherine Antonio [address] [place], [place] [phone] documented as of this encounter Visit Diagnoses Not on filedocumented in this encounter Additional Health Concerns Assessment Noted Time PHQ-9 Depression Total Score: 0 11/02/19 25 9:25 AM EDT documented as of this encounter Care Teams Manager Public Relationship Specialty Start Date End Date Agustin Marrero MD [address] [place] [address] PCP - General Internal Medicine 01/25/14 [facility] 06/13/16 documented as of this encounter
--- OUTSIDE RECORDS SUMMARY | 2025-03-15 07:18 | XMS_ITS | Encounter Summary ---
Author Organization [employer] Address [address] [place] [address] [address] Care Team Providers Care Junior Web Designer Name Role Phone Agustin Marrero MD Primary Care Provide r Encounter Details Date Type Department Care Team (Latest Contact Info) Description 07/16/2020 Abstract [facility] CONVERSIONS Dental, Provider, DDS Social History Tobacco [...] Description 03/24/2025 9:00 AM EST Clinical Support [facility] MEDICINE [address] [place] [address] Shwetha Collado RN [address] [place] [address] 05/31/2025 8:00 AM EST Office Visit [facility] ADULT DENTAL [address] [place] [address] Matty Antonioaris [address] [place] [address] documented as of this encounter Visit Diagnoses Not on filedocumented in this encounter Care Teams Junior Web Designer Relationship Specialty Start Date End Date Agustin Marrero MD [address] [place] [address] PCP - General Internal Medicine 01/25/14 [facility] 06/13/16 documented as of this encounter
--- OUTSIDE RECORDS SUMMARY | 2025-03-15 07:18 | XMS_ITS | Encounter Summary ---
Author Organization [facility] Address [address] [place] [address] Care Team Providers Care Sausage Linker Name Role Phone Agustin Mix Primary Care Provider + Encounter Details Date Type Department Care Team (Late st Contact Info) Description 01/20/2025 Results Follow-Up [facility] Transplant Department [address] [place] [address] Erika Bonds RN Social History Tobacco Use [...] Info) Description 03/27/2025 10:30 AM EST Follow-Up [facility] Liver Transplant Services [address] [place] [address] Dylan Phelps MD [address] [place] [address] documented as of this encounter Visit Diagnoses Not on filedocumented in this encounter Care Teams Sausage Linker Relationship Specialty Start Date End Date Agustin Mix [address] [place] [address] PCP - General Internal Medicine 04/15/17 documented as of this encounter
--- OUTSIDE RECORDS SUMMARY | 2025-03-15 07:18 | XMS_ITS | Encounter Summary ---
Author Organization [employer] Address [address] [place] [address] 7t [place] [address] Care Team Providers Care Telecommunications Specialist Name Role Phone Agustin Marrero MD Primary Care Provide r Reason for Visit * Reason Comments Med Refill Encounter Details Date Type Department Care Team ([facility] st Contact Info) Description 06/04/2023 Refill [facility] MEDICINE [address] [place], [place] [phone] Natasha Nguyen MD [address] [place] [address] Gastroesophageal reflux disease, unspecified whether esophagitis present [...] Support [facility] MEDICINE [address] [place] [address] Shwetha Collado RN [address] [place] [address] 05/31/2025 8:00 AM EST Office Visit [facility] ADULT DENTAL [address] [place] [address] Catherine Antonio [address] [place] [address] documented as of this encounter Visit Diagnoses Diagnosis Gastroesophageal reflux disease, unspecified whether esophagitis present documented in this encounter Care Teams Telecommunications Specialist Relationship Specialty Start Date End Date Agustin Marrero MD [address] [place] [address] PCP - General Internal Medicine 01/25/14 [facility] 06/13/16 documented as of this encounter
--- OUTSIDE RECORDS SUMMARY | 2025-03-15 07:18 | XMS_ITS ---
Author Organization [facility] Address [address] [place] [address] Care Team Providers Care Sales And Marketing Executive Name Role Phone Agustin Mix Primary Care Provider + Transplant Episode Liver Recipient [facility] ([place], [place]) - [facility] Organ Received: Liver Transplanted on 08/09/2019 Marked [...] Coordinator N/A N/A N/A Dylan Phelps MD Orange Peel Operator [phone] [email or web address] Sarai Diaz Referring Physician [phone] N/A Events Post-Transplant Pre-Transplant Admitted: 08/09/2019 Referred: 09/08/2016 Transplanted: 08/09/2019 Evaluation began: 7 Discharged: 08/25/2019 Committee: 10/24/2016 Center waitlisted: 7 Appointments (02/12/2025 - 04/14/2025) When With Visit Type Description 03/27/2025 Transplant - Colton Phelps Follow Up
--- OUTSIDE RECORDS SUMMARY | 2025-03-15 07:18 | XMS_ITS | Data Portability ---
Author Organization [employer] [facility], Main Office Address [address] [facility] [place] [address] Care Team Providers Care Fuel Yard Operator Name Role Phone MARICRUZ SARGENT - 2ND FLOOR OTHER Assessment Encounter Date Assessment Date Assessment LastModified by Organization Details LastModified Time 02/25/2019 02/25/2019 02/24/19 WBC 3.7, Hgb 7.5, Hct 22.4, Plt 59, Na 134, K 4.5, BUN 10, Dumper Bailer Operator 0.54, calc 7.8, tot prot 5.1, AST 69, ALT 33, A1c 4.2 02/23/19 WBC 3.4, Hgb 7.5, Hct 22.4, Plt 59, Na 128, K 4.3, BUN 11, Dumper Bailer Operator 0.56, silvia 7.6, tot prot 4.8, tot bili 4.1, AST 65, ALT 25 in hospital [facility] Not available 02/25/2019 10:15:55 Plan of [...] Gastroesop hageal reflux disease without esophagiti s 166396897 Active 2018 FIDEL MAURO [address] [facility], [address], [place], [address], [facility] [employer] 9 08:26:33 Cirrhosis of liver 06741175 Active 2018 on transplant list FIDEL MAURO [address], [address], [place], [address], [facility] 9 08:36:16 Diabetes mellitus 98680009 Active 2018 CACHORRO FIDEL CARLSON [address], [address], [place], [address], [facility] 9 08:28:07 Hyponatrem ia 02305687 Active 2018 CACHORROFIDEL LEON [address], [address], [place], [address], [facility] 9 08:28:22 Bacteremia 0241869 Active 2018 FIDEL MAURO [address] [place] [address], [address], [place], [address], [facility] 9 08:29:07 Bacterial peritoniti s 644818498 Active 2018 FIDEL MAURO [address], [facility] [address], [place], [address], [facility] 9 09:07:42 Edema of lower extremity 711932752 Active 2018 FIDEL MAURO [address], [address], [place], [address], [facility] 9 09:15:49 Abscess of lower leg 842050796 Active 2018 Brittaney Mcelroy MD [address] [place] [address], [place] [address], [place], [address], [facility] 9 07:15:49 Anemia 757421553 Active 2018 Brittaney Mcelroy MD [address] [place] [address], [facility] [address], [place], [address], [facility] 9 07:16:47 Problem Notes None recorded. Medical Equipment None Reported. Allergies No known drug allergies Medications Not known to be on any medication Vitals Date Recorded Body weight Heart rate Respiratory rate Body temperature Oxygen saturation Systolic And Diastolic Provider Name and Address Organization Details Last Updated DateTime 9 [address].5 1 g 70 /min 20 /min 96.9 [degF] 98 % 128/74 mm[Hg] FIDEL MAURO [address], [address], [place], [address], [facility] 9 11:06:12 Date Recorded Systolic And Diastolic Provider Name and Address Organization Details Last Updated DateTime 03/02/2019 120/68 mm[Hg] Brittaney Mcelroy MD [address], [address], [place], [address], [facility] [employer] [facility] 03/02/2019 06:55:54 Social History Question Answer Notes LastModified by [employer] Details LastModified Time Tobacco Smoking Status Former Smoker Not Available [facility] 02/14/2020 03:13:21 Do You Have An Advance Directive? Yes FULL CODE-undecide d About Dialysis And Nutrition-may Use Hydration [id number] Information not available 02/14/2020 How Many Years Have You Consumed Alcohol? 30 [id number] Information not available 02/14/2020 How Much Tobacco Do You Chew? None [id number] Information not available 02/14/2020 Do You Have A Medical Power Of School [employer] Nursing Director? Yes Hcp On File [id number] Information not available 02/14/2020 What Was The Date Of Your Most Recent Tobacco Screening? 02/25/2019 [id number] Information not available 02/14/2020 How Much Tobacco Do You Smoke? 1 PPD [id number] Information not available 02/14/2020 On What Date Was Tobacco Cessation Counseling Provided? 02/25/2019 NA [id number] Information not available 02/14/2020 How Many Years Have You Smoked Tobacco? 30 [id number] Information not available 02/14/2020 Sex: Unknown Functional Status Question Answer Note LastModified by [employer] Details LastModified Time What is your level of alcohol consumption? None quit drinking in 2016 [id number] Information not available 02/14/2020 Do you or have you ever used smokeless tobacco? Never used smokeless tobacco [id number] Information not available 02/14/2020 Do you or have you ever used e-cigarettes or vape? Never used electronic cigarettes [id number] Information not available 02/14/2020 Mental Status None recorded. Family History Nothing Reported. Medical History No medical history recorded. Past Encounters Encounter ID Performer Location Encounter Start Date Encounter Closed Date Diagnosis/Indication Diagnosis SNOMED-CT Code Diagnosis ICD10 Code Diagnosis IMO Codes Diagnosis Note [id number] FIDEL MAURO [address] [address] 02/25/2019 08:25:36 03/04/2019 13:41:33 Bacteremia 6954199 R78.81 completed treatmentm onitor dsg changes qdwet to dryareas clean Hyponatremia 19990141 E8 7.1 resolvedmo nitor labs Cirrhosis of liver K70.31 lactulose 30 mls tid 3-4 stools a dayspirono lactone 50 mg qdmonitoro n transplant listfollow s with [facility] Diabetes mellitus 275674 09 E11.9 lantus 8 units q [id number] here is 4.2monitor for s/s of hypo/hyper glycemia Gastroesop hageal reflux disease without esophagitis 295944797 K21.9 omeprazole 20 mg qdmonitor for symptoms Bacterial peritonitis 19 5763162 K65.2 recurrentc ipro 500 mg qd prophymoni tor for symptoms Edema of l ower extremity 704675081 R60.0 lasix 20 mg qdmonitor edema [id number] Brittaney Mcelroy MD [address] [address] 03/02/2019 06:54:11 03/04/2019 13:42:54 Cirrhosis of liver 10897197 K70.31 fu GIlactulos e 20 gm tidfurosem concetta 20 mg dailymagne sium 400 mg dailyspiro nolactone 25 mg dailyon transplant list [facility] Diabetes mellitus 583999 09 E11.9 Humalog per sliding scaleLantu s 8U dailywill monitor Gastroesop hageal reflux disease without esophagitis 524210007 K21.9 omeprazole 20 mg dailywill monitor Anemia 029791349 D50.8 suspect multifacto rial including GI blood loss, chronic diseaseawa it B12, folateiron 325 mg bidwill continue to monitor Bacteremia 5141672 R78.8 1 antibiotic s completedd aily dressing changes legfu surgery Bacterial peritonitis 19 8320843 K65.2 history of in pastCipro 500 mg daily for prophylaxi sfu GI [facility] Health Concerns Section Related Observation LastModified by Organization Detai ls LastModified Time None Recorded Concern Status LastModified by Organization Details LastModified Time None Recorded Advance Directives Directive Y: FULL CODE-undecided about dialysis and nutrition-may use hydration Payers Insurance Date Sequence Insurance Name Policy Number Policy Banks Covered Member ID Banks Member ID Guarantor Name 03/04/2019 2 [place]: [facility] Edward Danay [id number] Edward Jon 03/04/2019 1 [facility] - DOS PRIOR TO 2022 - DUAL ELIGIBLE (MEDICARE REPLACEMENT/AD VANTAGE - HMO) Edward Jon [id number] Edward Jon Notes Date Note Type Note Provider Name and Address Organization Details Recorded Time 02/25/2019 text/html A 54 year old male being seen for a initial intake note. Patient was at [facility] for fever and lower extremity edema/pain. He [...] DM, hyponatremia and SBP. FIDEL MAURO [address], [address], [place], [address], [facility] - [employer] 02/25/2019 11:10:47 03/02/2019 text/html ROS as noted in the HPI This 54 year old male was admitted to [facility] 02/23/19 for continued care and rehab after hospitalization for fever and lower extremity edema/pain. Patient has history of alcoholic liver disease and cirrhosis and is on transplant list. He was initially admitted to [facility], then transferred to [facility] for bacteremia. His blood cultures grew ESBL E. Coli and he started on antibiotics, initially Zosyn which was changed to meropenem, then ertapenem to complete a 10 day course. Patient has history recurrent bacteremia in past few months. During most recent prior [facility] admission, it was suspected that likely source of bacteremia was biliary. Patient had worsened R>L leg edema and US was negative at [facility] for DVT. CT of right lower [...] hyponatremia. MOLST: full code Brittaney Mcelroy MD [address] [place] [address], [address], [place], [address], [facility] [employer] [facility] 03/02/2019 08:11:36
--- OUTSIDE RECORDS SUMMARY | 2025-03-15 07:18 | XMS_ITS | Encounter Summary ---
Author Organization [employer] Address [address] [place] [address] [address] [address] Care Team Providers Care Skoog Patching Machine Operator Name Role Phone Agustin Marrero MD Primary Care Provide r Reason for Visit * Reason Onset Date Comments Med Refill 12/15/2022 Encounter Details Date Type Department Care Team ([facility] st Contact Info) Description 12/15/2022 Telephone [facility] MEDICINE [address] [place], [place] [phone] Agustin Marrero MD [address] [place] [address] Med Refill Social History Tobacco Use Types [...] EST Clinical Support [facility] MEDICINE [address] [place] [address] Shwetha Collado, RN [address] [place] [address] 05/31/2025 8:00 AM EST Office Visit [facility] ADULT DENTAL [address] [place] [address] Catherine Antonio [address] [place] [address] documented as of this encounter Visit Diagnoses Not on filedocumented in this encounter Care Teams Skoog Patching Machine Operator Relationship Specialty Start Date End Date Agustin Marrero MD [address] [place] [address] PCP - General Internal Medicine 01/25/14 [facility] 06/13/16 documented as of this encounter
--- OUTSIDE RECORDS SUMMARY | 2025-03-15 07:18 | XMS_ITS | Encounter Summary ---
Author Organization [employer] Address [address] [place] [address] [address] [address] Care Team Providers Care Freelance Court Reporter Name Role Phone Agustin Marrero MD Primary Care Provide r Encounter Details Date Type Department Care Team (Latest Contact Info) Description 09/06/2018 Abstract [facility] CONVERSIONS Dental, Provider, DDS Social [...] EST Clinical Support [facility] MEDICINE [address] [place] [address] Shwetha Collado RN [address] [place] [address] 05/31/2025 8:00 AM EST Office Visit [facility] ADULT DENTAL [address] [place] [address] Matty Antonioaris [address] [place] [address] documented as of this encounter Visit Diagnoses Not on filedocumented in this encounter Care Teams Freelance Court Reporter Relationship Specialty Start Date End Date Agustin Marrero MD [address] [place] [address] PCP - General Internal Medicine 01/25/14 [facility] 06/13/16 documented as of this encounter
--- OUTSIDE RECORDS SUMMARY | 2025-03-15 07:18 | XMS_ITS | Clinical Summary ---
Author Organization [facility] Address [address] [place] [address] Care Team Providers Care Windows Vmware Engineer Name Role Phone Agustin Mix Primary [...] daily 01/25/20 22 Active FreeStyle Arvin 2 [place] misc 01/17/20 22 Active BD Insulin Syringe [...] March 2020. He was seen by paint maker at [facility] who discussed that he might need [...] for liver biopsy, since LFT pattern not client services representative of rejection. Additionally, Liver ultrasound [...] recurrent ESBL bacteremia. Initially presented to [facility] for fever, LE swelling and pain. Unclear source. BCX grew esbl E.Coli 1 out of [address] [facility], susceptible to Ertapenem. Initially he was [...] recurrent ESBL bacteremia. Initially presented to [facility] for fever, LE swelling and pain. Unclear source. BCX grew esbl E.Coli 1 out of [address] [facility], susceptible to Ertapenem. Initially he was [...] ESBL bacteremia. Patient initially presented to [facility] for fever and LE swelling and pain. Unclear source. BCX grew esbl E.Coli 1 out of [address] [facility], susceptible to Ertapenem. Initially he was on zosyn, and was switched to ertapenem. On previous admission, MRCP on 12/20 or Abdominal US on 01/16 showed no biliary dilatation. - continue ertapenem (10 day course to be completed on 02/[address] [facility] note) - repeat BCX - CT AP w/ contrast - consult transplant ID in the AM - f/u CBC and CMP Assessment & Plan (02/05/2019 5:40 AM EDT): Patient has a recurrent history of recurrent ESBL bacteremia. Patient initially presented to [facility] for fever and LE swelling and pain. Unclear source. BCX grew esbl E.Coli 1 out of [address] [facility], susceptible to Ertapenem. Initially he was on zosyn, and was switched to ertapenem. On previous admission, MRCP on 12/20 or Abdominal US on 01/16 showed no biliary dilatation. - continue ertapenem (10 day course to be completed on 02/[address] [facility] note) - repeat BCX - CT [...] pathology. -BCx grew GNR -transplant ID consulted -[facility] was called for speciation, it will be [...] concerning for pathology. -Transplant ID is following -[facility] will fax culture data, commented that both [...] 8:59 AM EST): Hyponatremic to 132 at [facility]. Na 128, constant through hospitalization. - daily BMP Assessment & Plan (02/09/2019 11:02 AM EDT): Hyponatremic to 132 at [facility]. Na 128, constant through hospitalization. - daily BMP Assessment & Plan (02/05/2019 5:51 AM EDT): Hyponatremic to 132 at [facility]. - repeat BMP in am and redose diuretics Assessment & Plan (02/05/2019 5:47 AM EDT): Hyponatremic to 132 at [facility]. - repeat BMP in am [...] Presented again on day of admission to [facility] with worsening shortness of breath where a CT chest PE protocol was performed which showed no evidence of intraluminal filling defect though did make note of large left- sided pleural effusion with associated complete left lower lobe collapse as well as partial left upper lobe collapse. Due to recurrent pleural effusion and likely need for repeat thoracentesis patient was transferred [facility]. On arrival patient without any increased work of breathing and saturating well on room air. Exam reveals absent breath sounds in the left middle and lower lung perez with increased dullness to percussion. 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 -We will have CT scan from [facility] uploaded into our system for review -CXR on 07/11 showed large left pleural effusion -IP consulted for thoracentesis. Will send fluid studies. -Requested [facility] records of pleural fluid studies from 07/06 -Supplemental oxygen as needed to maintain sats greater than 92% Assessment & Plan (01/19/2019 10:11 AM EDT): Patient is s/p thoracentesis after large left lung effusion unchanged from previous admission seen on imaging. Site of thoracentesis covered with bandage that is dry and intact. Chart review of his prior hospitalization at [facility] revealed that he had thoracentesis on January 11, 2019, during which 1.6 L was taken out, and fluid study revealed white blood cell count of 2650 and segs of 35%, suggesting exudative fluid, although it seems that no paracentesis was done at [facility]. - decreased breath sounds in middle and [...] procedure in 2017. Most recent hospitalization at [facility] was in January 2019 when [...] to hyperkalemia. Of note, reached out to [facility] to double check if paracentesis was done, and whether there is a fluid study of the sample, however it appears that no paracentesis was done at [facility]. - Start Lactulose increased to 20 g [...] Type Department Care Team Description 02/22/2025 Abstract [facility] Transplant Department [address] [place] [address] Dylan Phelps MD 02/21/2025 Results Follow-Up [facility] Transplant Department [address] [place] [address] Erika Bonds RN 02/21/2025 Abstract [facility] Transplant Department [address] [place] [address] Dylan Phelps MD 02/07/2025 Telephone [facility] Transplant Department [address] [place] [address] Erika Bonds RN 01/26/2025 Abstract [facility] Transplant Department [address] [place] [address] Dylan Phelps MD 01/20/2025 Results Follow-Up [facility] Transplant Department [address] [place] [address] Erika Bonds RN 01/19/2025 Abstract [facility] Transplant Department [address] [place] [address] Dylan Phelps MD 12/23/2024 Abstract [facility] Transplant Department [address] [place] [address] Dylan Phelps MD 12/22/2024 Results Follow-Up [facility] Transplant Department [address] [place] [address] Erika Bonds RN 12/22/2024 Abstract [facility] Transplant Department [address] [place] [address] Dylan Phelps MD from Last 3 Months [...] Info) Description 03/27/2025 10:30 AM EST Follow-Up [facility] Liver Transplant Services [address] [place] [address] Dylan Phelps MD [address] [place] [address] Health Maintenance Due Date Last [...] history exists Medical Devices Implanted Type Area Brineyard Supervisor Device Identifier Shelf Expiration Date Model / Serial / Lot Shunt Transjugular Intrahepatic Portosystemic Tips Endoprosthesis [id number] Viatorr - [id number] Implanted:Qty: 1 on 07/28/2017 at [facility] Implant W L GORE 12/26/2019 [id number] / / Mesh Hernia With Strap Large Ventralex - [id number] Implanted:Qty: 1 on 03/20/2020 by Fernando iFne MD PhD at [facility] Mesh Right: Abdomen [employer] 01/15/2021 [id number] / / [id number] Stent Biliary Rx Fully Covered Self Expanding Metallic Rmv With Permalume Covering 8.5fr [id number] Wallflex - [id number] - [id number] Implanted:Qty: 1 on 11/21/2022 by Dunia Osorio MD at [facility] Stent N/A: Bile Duct [employer] 08/21/2024 [id number] / [id number] / Explanted Type Area Brineyard Supervisor Device Identifier Shelf Expiration Date Model / Serial / Lot Ercp Stent-11/21/2022 Implanted:080 07/2022 (Quantity not on file) Explanted:1106/2022 (Quantity not on file) ERCP Stent Bile Duct 1 / / Txp Internal Biliary Stent- 0 Implanted:2 04/2019 (Quantity not on file) Explanted:060 07/2020 (Quantity not on file) TXP Internal Biliary Stent Bile Duct Procedures * Due to [place] state law, this organization might not be [...] to Health Maintenance Results * Due to [place] state law, this organization might not be sharing negative HIV tests. * LIVER POST EXTERNAL PANEL (02/17/2025 6:43 AM EDT) Only the most recent of3 resultswithin the time period is included. Tacrolimus, Highly Sensitive 3.3 [facility] Sodium 139 mmol/L [facility] Potassium 4.4 [facility] Chloride 105 [facility] Carbon Dioxide 28 [facility] Glucose 120 [facility] BUN 18 mg/dL [facility] Creatinine 1.02 mg/dL [facility] Calcium 9.4 mg/dL [facility] Total Protein 7.1 g/dL [facility] Albumin 4.7 g/dL [facility] Bilirubin, Total 0.6 mg/dL [facility] Alkaline Phosphatase 123 U/L [facility] AST 41 U/L [facility] ALT 50 U/L [facility] Magnesium 1.80 mg/dL [facility] WBC 4.8 10*3/uL [facility] Hgb 14.2 [facility] Hematocrit 40.8 % [facility] Platelets 128 10*3/uL [facility] 02/17/2025 6:43 AM EDT us Dylan Phelps MD LAB BLOOD ORDERABLES Final Re sult [facility] [address] [place], [place] [id number] * AFP Tumor Marker, Outside Lab (02/17/2025 6:43 AM EDT) Only the most recent of3 resultswithin the time period is included. Alpha Fetoprotein, Tumor Marker 1.5 [facility] Blood Structure of peripheral vein / Unknown 02/17/2025 6:43 AM EDT us Dylan Phelps MD LAB BLOOD ORDERABLES Final Re sult [facility] [address] [place] [address] * CT Chest W Contrast (11/05/2023 4:35 [...] to obtain the completed interpretation. Workstation ID: [id number] Up-to-date CT equipment and radiation dose reduction techniques were employed. CTDIvol: 3.1 - 23.9 mGy. DLP: 2643 mGy-cm. The following accession numbers are related to this dose report [id number]: [id number] Narrative 11/19/2023 3:36 PM EDT Indication: 58 [...] the spine. Bilateral gynecomastia. Resulting Agency Comment [id number] Procedure Note Natasha Michaud MD - 11/19/2023 [...] possible to obtain thecompleted interpretation. Workstation ID: [id number] Up-to-date CT equipment and radiation dose reduction techniques wereemployed. CTDIvol: 3.1 - 23.9 mGy. DLP: 2643 mGy-cm. The followingaccession numbers are related to this dose report [id number]: [id number] Dylan Phelps MD IM CT PROCEDURES Final Resul t * (ABNORMAL) Basic Metabolic Panel (11/15/2022 3:07 AM EDT) NA 135 135 - 145 mmol/L 11/15/2022 4:09 AM EDT [facility] K 4.6 3.5 - 5.3 mmol/L 11/15/2022 4:09 AM EDT [facility] Cl 103 97 - 110 mmol/L 11/15/2022 4:09 AM EDT [facility] CO2 24 24 - 32 mmol/L 11/15/2022 4:09 AM EDT [facility] BUN 27(H) 7 - 23 mg/dL 11/15/2022 4:09 AM EDT [facility] Creatinine 1.05 0.60 - 1.30 mg/dL 11/15/2022 4:09 AM EDT [facility] Glucose 268(H) 70 - 99 mg/dL 11/15/2022 4:09 AM EDT [facility] Calcium 8.8 8.7 - 10.7 mg/dL 11/15/2022 4:09 AM EDT [facility] Anion Gap 8 5 - 15 11/15/2022 4:09 AM EDT [facility] eGFR 82 >=60 mL/min/1. 73m2 11/15/2022 4:09 AM EDT [facility] Comment:The estimated glomer ular [...] MD LAB BLOOD ORDERABLES Final [facility] [address] [place] [address], * Microalbumin, Random Urine with Creatinine (05/17/2021 11:35 AM EST) Microalbumin, Urine 1.1 mg/dL 05/17/2021 12:34 PM EST [facility] Creatinine, Urine 97 22 - 328 mg/dL 05/17/2021 12:34 PM EST [facility] Microalb/Creat Ratio, Random Urine 11.3 <30.0 mcg/mgCr 05/17/2021 12:34 PM EST [facility] Comment: Microalbumin Reference Range: Normal <30 mcg/mg Creatinine Microalbuminuria 30-300 mcg/mg Creatinine Clinical Albuminuria >300 mcg/mg Creatinine Reference: ADA Guideline. Diabetes Care. 2004;27 (suppl 1) Urine Voided urine specimen / Unknown Non-Blood Collection / Unknown 05/17/2021 11:35 AM EST 05/17/2021 12:01 PM EST Angelita Villa MD LAB URINE ORDERABLES Final Resul t [facility] [address] [place] [address], [place] * (ABNORMAL) Hemoglobin A1c (05/17/2021 11:31 AM EST) Hemoglobin A1C 7.7(H) <5.7 % of total Hgb 05/18/2021 2:37 AM EST [facility] Comment: For someone without known diabetes, a [...] (MG/DL) 174 mg/dL 05/18/2021 2:37 AM EST [facility] eAG (MMOL/L) 9.7 mmol/L 05/18/2021 2:37 AM EST [facility] Blood Structure of peripheral vein / Unknown Venipuncture / Unknown 05/17/2021 11:31 AM EST 05/17/2021 11:40 AM EST Narrative [facility] - 05/18/2021 2:37 AM EST [facility] Received Date: Angelita Villa MD LAB BLOOD ORDERABLES Final Resul t [facility] [address] [facility] [address], [place] [address], [facility] [address] [facility] [address], [place] [address], * CT Abdomen Pelvis with Contrast (05/05/2020 5:27 PM EST) Anatomical Region Laterality Modality Body Computed Tomogra phy 05/06/2020 8:40 AM EST Impressions 05/06/2020 8:50 AM EST Small fluid pocket between the incision and transverse colon which may represent developing adhesions. Recommend correlation for any signs of infection in the incision on exam. Otherwise, no CT findings that might explain patient's fever. [id number] Narrative 05/06/2020 8:50 AM EST EXAMINATION: CT [...] no CT findings that mightexplain patient's fever. [id number] Reyes Voss MD IM CT PROCEDURES Final Result * Hepatitis C RNA, Quantitative, PCR (09/09/2019 11:52 AM EDT) Pathologist [facility] RNA, Quantitative Real Time PCR <15 NOT DETECTED NOT DETECTED IU/mL 09/14/2019 5:38 PM EDT [facility] Hepatitis C Quantitative PCR Log IU/mL <1.18 NOT DETECTED NOT DETECTED Log IU/mL 09/14/2019 5:38 PM EDT [facility] Comment: This test was performed using Real-Time Polymerase Chain Reaction. Reportable Range: 15 IU/mL to 100,000,000 IU/mL (1.18 Log IU/mL to 8.00 Log IU/mL). The analytical performance characteristics of this assay have been determined by [facility]. The modifications have not been cleared or approved by the FDA. This assay has been validated pursuant to the CLIA regulations and is used for clinical purposes. For more information on this test, go to: http://education.Jelastic.Shuttersong/faq/NPK32x8 (This link is being provided for informational/ educational purposes only.) Blood Structure of peripheral vein / Unknown Venipuncture / Unknown 09/09/2019 11:52 AM EDT 09/09/2019 12:07 PM EDT [facility] - 09/14/2019 5:38 PM EDT [facility] Received Date:[id number] Cyndi Pereira MD LAB BLOOD ORDERAB LES Final Result [facility] [address], [address] [place] [address], [place] [phone] [facility] [address], [address] [place] [address], [place] [phone] from Last 3 Months or Most Recently Relevant to Health Maintenance Insurance [facility] [place] [id number] [address] [place] [address] [facility] [address] [place] [address] [facility] [employer] Advance Directives Documents on File Type Date Recorded Patient Ham Stringer Expl anation Health Care Proxy 02/05/2019 4:40 [...] Jon Son Health Care Agent Care Teams Windows Vmware Engineer Relationship Specialty Start Date End Date Agustin [employer] [address] [place] [address] PCP - General Internal Medicine 04/15/17
--- OUTSIDE RECORDS SUMMARY | 2025-03-15 07:18 | XMS_ITS | Encounter Summary ---
Author Organization [employer] Address [address] [place] [address], [place] [address] Care Team Providers Care Waiter/Waitress First Class Name Role Phone Agustin Marrero MD Primary Care Provide r Reason for Visit * Reason Onset Date Comments Med Refill 12/15/2022 Encounter Details Date Type Department Care Team ([facility] st Contact Info) Description 12/15/2022 Telephone [facility] MEDICINE [address] [place], [place] [phone] Agustin Marrero MD [address] [place] [address] Med Refill Social History Tobacco Use Types [...] Description 03/24/2025 9:00 AM EST Clinical Support [facility] MEDICINE [address] [place] [address] Shwetha Collado, KATALINA [address] [place] [address] 05/31/2025 8:00 AM EST Office Visit [facility] ADULT DENTAL [address] [place] [address] Catherine Antonio [address] [place] [address] documented as of this encounter Visit Diagnoses Not on filedocumented in this encounter Care Teams Waiter/Waitress First Class Relationship Specialty Start Date End Date Agustin Marrero MD [address] [place] [address] PCP - General Internal Medicine 01/25/14 [facility] 06/13/16 documented as of this encounter
--- OUTSIDE RECORDS SUMMARY | 2025-03-15 07:18 | XMS_ITS | Encounter Summary ---
Author Organization [employer] Address [address] [place] [address] [address] [place] [address] Care Team Providers Care Customer Service Representative Teacher Name Role Phone Agustin Marrero MD Primary Care Provide r Reason for Visit * Reason Comments Med Refill Encounter Details Date Type Department Care Team ([facility] st Contact Info) Description 03/11/2025 Refill [facility] MEDICINE [address] [place], [place] [phone] Agustin Marrero MD [address] [place], [place] [phone] Type 2 diabetes mellitus without complication, with [...] 03/24/2025 9:00 AM EST Clinical Support [facility] MEDICINE [address] [place] [address] Shwetha Collado RN [address] [place] [address] 05/31/2025 8:00 AM EST Office Visit [facility] ADULT DENTAL [address] [place] [address] Matty Antonioaris [address] [place] [address] documented as of this encounter Visit Diagnoses Diagnosis Type 2 diabetes mellitus without complication, with long-term current use of insulin (HCC) documented in this encounter Additional Health Concerns Assessment Noted Time PHQ-9 Depression Total Score: 0 11/02/19 25 9:25 AM EDT documented as of this encounter Care Teams Customer Service Representative Teacher Relationship Specialty Start Date End Date Agustin Marrero MD [address] [place] [address] PCP - General Internal Medicine 01/25/14 [facility] 06/13/16 documented as of this encounter
--- OUTSIDE RECORDS SUMMARY | 2025-03-15 07:18 | XMS_ITS | Encounter Summary ---
Author Organization [facility] Address [address] [place] [address] Care Team Providers Care Dry Roaster Name Role Phone Agustin Mix Primary Care Provider + Encounter Details Date Type Department Care Team (Late st Contact Info) Description 04/02/2020 Orders Only [facility] Interventional Radiology [address] [place] [address] Kathy Bowling MD [address] [place], [place] [phone] Social History Tobacco Use Types Packs/Day Years [...] Description 03/27/2025 10:30 AM EST Follow-Up [facility] Liver Transplant Services [address] [place], [place] [phone] Dylan Phelps MD [address] [place] [address] documented as of this encounter Visit Diagnoses Not on filedocumented in this encounter Additional Health Concerns Infection Onset Date Last Indicated Resolved Time COVID-19 - Confirmed infection 05/01/2020 05/07/2020 06/01/2020 5:06 PM EST COVID-19 - Suspected infection 05/10/2020 05/10/2020 05/24/2020 10:34 PM EST documented as of this encounter Care Teams Dry Roaster Relationship Specialty Start Date End Date Agustin Mix [address] [place] [address] PCP - General Internal Medicine 04/15/17 documented as of this encounter
--- OUTSIDE RECORDS SUMMARY | 2025-03-15 07:18 | XMS_ITS | Encounter Summary ---
Author Organization [facility] Address [address] [place] [address] Care Team Providers Care Repairer Name Role Phone Agustin Mix Primary Care Provider + Encounter Details Date Type Department Care Team (Late st Contact Info) Description 12/30/2021 Orders Only [facility] Interventional Radiology [address] [place] [address] Avelino Otero DO [address] [place] [address] Social History Tobacco Use Types Packs/Day Years [...] Info) Description 03/27/2025 10:30 AM EST Follow-Up [facility] Liver Transplant Services [address] [place] [address] Dylan Phelps MD [address] [place] [address] documented as of this encounter Visit Diagnoses Not on filedocumented in this encounter Care Teams Repairer Relationship Specialty Start Date End Date Agustin Mix [address] [place] [address] PCP - General Internal Medicine 04/15/17 documented as of this encounter
--- OUTSIDE RECORDS SUMMARY | 2025-03-15 07:18 | XMS_ITS | Encounter Summary ---
Author Organization [employer] Address [address] [place] [address] 7 [place] [address] Care Team Providers Care Air Bag Curer Name Role Phone Agustin Marrero MD Primary Care Provide r Reason for Visit * Reason Onset Date Comments Med Refill 05/26/2023 Encounter Details Date Type Department Care Team ([facility] st Contact Info) Description 05/26/2023 Telephone [facility] MEDICINE [address] [place], [place] [phone] Agustin Marrero MD 230 [place], [place] [phone] Med Refill Social History Tobacco Use Types [...] test strip To be sent to: [facility]/pharmacy #[address] [place] [address] - [address] [place] [address] documented in this encounter Plan of Treatment Upcoming Encounters Date Type Department Care Team (Late st Contact Info) Description 03/24/2025 9:00 AM EST Clinical Support [facility] MEDICINE 230 [place] [address] Shwetha Collado RN 505 [place] [address] 05/31/2025 8:00 AM EST Office Visit [facility] ADULT DENTAL 230 [place] [address] Catherine Antonio 230 [place] [address] documented as of this encounter Visit Diagnoses Not on filedocumented in this encounter Care Teams Air Bag Curer Relationship Specialty Start Date End Date Agustin Marrero MD 230 [place] [address] PCP - General Internal Medicine 01/25/14 [facility] 06/13/16 documented as of this encounter
--- OUTSIDE RECORDS SUMMARY | 2025-03-15 07:18 | XMS_ITS | Encounter Summary ---
Author Organization [employer] Address [address] [place] [address] 7 [place] [address] Care Team Providers Care Recruitment And Outreach Assistant Name Role Phone Agustin Marrero MD Primary Care Provide r Encounter Details Date Type Department Care Team (Late st Contact Info) Description 08/28/2022 Abstract [facility] MEDICINE [address] [place] [address] Agustin Marrero MD 230 [place] [address] Social History Tobacco Use Types Packs/Day Years [...] Clinical Support [facility] MEDICINE [address] [place] [address] Shwetha Collado RN 505 [place] [address] 05/31/2025 8:00 AM EST Office Visit [facility] ADULT DENTAL 230 [place] [address] Catherine Antonio 230 [place] [address] documented as of this encounter Procedures Procedure Name Priority Date/Time Associated Diagnosis Comments COLONOSCOPY Routine 06/28/2021 documented in this encounter Results * Colonoscopy (06/28/2021) Colonoscopy Normal Normal 06/28/2021 Narrative Shanel Bo - 06/28/2021 9:58 AM EST Recommended 3 year follow up per [place] ( [facility] [place] Historical Provider [facility] Edited Result - Final documented in this encounter Visit Diagnoses Not on filedocumented in this encounter Care Teams Recruitment And Outreach Assistant Relationship Specialty Start Date End Date Agustin Marrero MD 230 [place] [address] PCP - General Internal Medicine 01/25/14 [facility] 06/13/16 documented as of this encounter
--- OUTSIDE RECORDS SUMMARY | 2025-03-15 07:18 | XMS_ITS | Encounter Summary ---
Author Organization [employer] Address [address] [place] [address] 7 [place] [address] Care Team Providers Care Aircraft Powertrain Repairer Name Role Phone Agustin Marrero MD Primary Care Provide r Reason for Visit * Reason Comments Med Refill Encounter Details Date Type Department Care Team ([facility] st Contact Info) Description 02/26/2025 Refill [facility] 230 [place] [address] Natasha Wall MD 230 [place] [address] Primary insomnia Social History Tobacco Use Types [...] is your housing situation today? I have fyasummer gonsalez 11/01/[address] you [...] 03/24/2025 9:00 AM EST Clinical Support [facility] MEDICINE [address] [place] [address] Shwetha Collado, KATALINA 505 [place] [address] 05/31/2025 8:00 AM EST Office Visit [facility] ADULT DENTAL 230 [place] [address] Paco, Catherine 230 [place] [address] documented as of this encounter Visit Diagnoses Diagnosis Primary insomnia Persistent disorder of initiating or maintaining sleep documented in this encounter Additional Health Concerns Assessment Noted Time PHQ-9 Depression Total Score: 0 11/02/19 25 9:25 AM EDT documented as of this encounter Care Teams Aircraft Powertrain Repairer Relationship Specialty Start Date End Date Agustin Marrero MD 230 [place] [address] PCP - General Internal Medicine 01/25/14 [facility] 06/13/16 documented as of this encounter
--- OUTSIDE RECORDS SUMMARY | 2025-03-15 07:18 | XMS_ITS | Encounter Summary ---
Author Organization [employer] Address [address] [place] [address] 7t [place] [address] Care Team Providers Care Manager Recovery Name Role Phone Agustin Marrero MD Primary Care Provide r Encounter Details Date Type Department Care Team ([facility] st Contact Info) Description 05/05/2023 Telephone [facility] MEDICINE 230 [place], [place] [phone] Agustin Marrero MD 230 [place], [place] [phone] Social History Tobacco Use Types Packs/Day Years [...] Description 03/24/2025 9:00 AM EST Clinical Support [facility] MEDICINE [address] [place] [address] Shwetha Collado RN 505 [place] [address] 05/31/2025 8:00 AM EST Office Visit [facility] ADULT DENTAL 230 [place] [address] Catherine Antonio 230 [place] [address] documented as of this encounter Visit Diagnoses Not on filedocumented in this encounter Care Teams Manager Recovery Relationship Specialty Start Date End Date Agustin Marrero MD 230 [place] [address] PCP - General Internal Medicine 01/25/14 [facility] 06/13/16 documented as of this encounter
--- OUTSIDE RECORDS SUMMARY | 2025-03-15 07:18 | XMS_ITS | Encounter Summary ---
Author Organization [employer] Address [address] [place] [address], [place] [address] Care Team Providers Care Jacquard Card Cutter Name Role Phone Agustin Marrero MD Primary Care Provide r Encounter Details Date Type Department Care Team (Latest Contact Info) Description 06/18/2021 Abstract [facility] CONVERSIONS Dental, Provider, DDS Social [...] Description 03/24/2025 9:00 AM EST Clinical Support [facility] MEDICINE 230 [place] [address] Shwetha Collado RN 505 [place] [address] 05/31/2025 8:00 AM EST Office Visit [facility] ADULT DENTAL [address] [place] [address] Matty Antonioaris 230 [place] [address] documented as of this encounter Visit Diagnoses Not on filedocumented in this encounter Care Teams Jacquard Card Cutter Relationship Specialty Start Date End Date Agustin Marrero MD 230 [place] [address] PCP - General Internal Medicine 01/25/14 [facility] 06/13/16 documented as of this encounter
--- OUTSIDE RECORDS SUMMARY | 2025-03-15 07:18 | XMS_ITS | Encounter Summary ---
Author Organization [employer] Address [address] [place] [address] 7 [place] [address] Care Team Providers Care Legal Mediator Name Role Phone Agustin Marrero MD Primary Care Provide r Reason for Visit * Reason Onset Date Comments Med Refill 10/16/2022 Encounter Details Date Type Department Care Team ([facility] st Contact Info) Description 10/16/2022 Telephone [facility] MEDICINE 230 [place], [place] [phone] Agustin Marrero MD 230 [place], [place] [phone] Med Refill Social History Tobacco Use Types [...] 03/24/2025 9:00 AM EST Clinical Support [facility] MEDICINE 230 [place] [address] Shwetha Collado RN 505 [place] [address] 05/31/2025 8:00 AM EST Office Visit [facility] ADULT DENTAL 230 [place] [address] Paco, Catherine 230 [place] [address] documented as of this encounter Visit Diagnoses Not on filedocumented in this encounter Care Teams Legal Mediator Relationship Specialty Start Date End Date Agustin Marrero MD 230 [place] [address] PCP - General Internal Medicine 01/25/14 [facility] 06/13/16 documented as of this encounter
--- OUTSIDE RECORDS SUMMARY | 2025-03-15 07:18 | XMS_ITS | Encounter Summary ---
Author Organization [employer] Address [address] [place] [address] 7 [place] [address] Care Team Providers Care Talent Associate Name Role Phone Agustin Marrero MD Primary Care Provide r Reason for Visit * Reason Onset Date Comments Error 05/12/2023 Encounter Details Date Type Department Care Team ([facility] st Contact Info) Description 05/12/[address] [facility] MEDICINE 230 [place], [place] [phone] Agustin Marrero MD 230 [place], [place] [phone] Error Social History Tobacco Use Types Packs/Day [...] 03/24/2025 9:00 AM EST Clinical Support [facility] MEDICINE [address] [place] [address] Shwetha Collado, KATALINA 505 [place] [address] 05/31/2025 8:00 AM EST Office Visit [facility] ADULT DENTAL 230 [place] [address] Paco, Catherine 230 [place] [address] documented as of this encounter Visit Diagnoses Not on filedocumented in this encounter Care Teams Talent Associate Relationship Specialty Start Date End Date Agustin Marrero MD [address] [place] [address] PCP - General Internal Medicine 01/25/14 [facility] 06/13/16 documented as of this encounter
--- OUTSIDE RECORDS SUMMARY | 2025-03-15 07:18 | XMS_ITS | Encounter Summary ---
Author Organization [employer] Address [address] [place] [address] [address] Care Team Providers Care Consumer Services Consultant Name Role Phone Agustin Marrero [...] Support [facility] MEDICINE 230 [place] [address] Shwetha Collado RN 505 [place] [address] 05/31/2025 8:00 AM EST Office Visit [facility] ADULT DENTAL 230 [place] [address] Matty Antonioaris 230 [place] [address] documented as of this encounter Visit Diagnoses Not on filedocumented in this encounter Care Teams Consumer Services Consultant Relationship Specialty Start Date End Date Agustin Marrero MD 230 [place] [address] PCP - General Internal Medicine 01/25/14 [facility] 06/13/16 documented as of this encounter
--- OUTSIDE RECORDS SUMMARY | 2025-03-15 07:18 | XMS_ITS | Encounter Summary ---
Author Organization [employer] Address [address] [place] [address] 7t [place] [address] Care Team Providers Care Personal Financial Counselor Name Role Phone Agustin Marrero MD Primary Care Provide r Reason for Visit * Reason Comments Med Refill Encounter Details Date Type Department Care Team ([facility] st Contact Info) Description 05/13/2024 Refill [facility] MEDICINE [address] [place], [place] [phone] Agustin Marrero MD 230 [place] [address] Social History Tobacco Use Types Packs/Day Years [...] 03/24/2025 9:00 AM EST Clinical Support [facility] MEDICINE 230 [place] [address] Shwetha Collado, KATALINA 505 [place] [address] 05/31/2025 8:00 AM EST Office Visit [facility] ADULT DENTAL 230 [place] [address] Paco, Catherine 230 [place] [address] documented as of this encounter Visit Diagnoses Not on filedocumented in this encounter Additional Health Concerns Assessment Noted Time PHQ-9 Depression Total Score: 0 12/03/19 24 10:31 AM EDT documented as of this encounter Care Teams Personal Financial Counselor Relationship Specialty Start Date End Date Agustin Marrero MD 230 [place] [address] PCP - General Internal Medicine 01/25/14 [facility] 06/13/16 documented as of this encounter
--- OUTSIDE RECORDS SUMMARY | 2025-03-15 07:18 | XMS_ITS | Encounter Summary ---
Author Organization [employer] Address [address] [place] [address] 7 [place] [address] Care Team Providers Care Nematology Teacher Name Role Phone Agustin Marrero MD Primary Care Provide r Reason for Visit * Reason Onset Date Comments Medication Question 05/11/2024 Encounter Details Date Type Department Care Team ([facility] st Contact Info) Description 05/11/2024 Telephone [facility] MEDICINE 230 [place], [place] [phone] Agustin Marrero MD 230 [place], [place] [phone] Medication Question Social History Tobacco Use Types [...] early May to continue to monitor. Called [facility] pharmacy, spoke with Faiza who stated that pt last picked up Kayexalate on 08/13/2023, Rx was written by Dr Lenin Richardson for 30g 1x weekly as directed. Called [facility] Dr Richardson's office to confirm. Spoke [...] Richardson's office and received same messageas above. Military Science Teacher advised Jessica to contact Dr Richardson with any questions regarding this med given that they prescribe it. Jessica stated she will be following up with their office in May once the pt gets their labs drawn. Advised her to call [facility] if any other questions or concerns develop, [...] original prescriber contact information. Dr. Richardson [facility]. . If any questions for Jessica you can contact pt at [phone]. documented in this encounter Plan of Treatment Upcoming Encounters Date Type Department Care Team (Late st Contact Info) Description 03/24/2025 9:00 AM EST Clinical Support [facility] [address] [place] [address] Shwetha Collado RN 505 [place] [address] 05/31/2025 8:00 AM EST Office Visit [facility] ADULT DENTAL 230 [place] [address] Paco, Catherine 230 [place] [address] documented as of this encounter Visit Diagnoses Not on filedocumented in this encounter Additional Health Concerns Assessment Noted Time PHQ-9 Depression Total Score: 0 12/03/19 24 10:31 AM EDT documented as of this encounter Care Teams Nematology Teacher Relationship Specialty Start Date End Date Agustin Marrero MD 230 [place] [address] PCP - General Internal Medicine 01/25/14 [facility] 06/13/16 documented as of this encounter
[2025-03-15 07:26] LABS: MANUAL DIFF FLAG NO
[2025-03-15 07:57] LABS: Hematocrit 40.1 % (42.0-52.0); Hemoglobin 14.2 g/dl (14.0-18.0); Imm Gran Abs Auto 0.01 X10*3/uL (0.00-0.03); Imm Gran Pct Auto 0.2 % (0.0-0.4); Lymphocytes Absolute Auto 1.6 X10*3/uL (1.2-4.9); Mean Corpuscular HGB Conc 35.4 g/dl (31.0-36.0); Mean Corpuscular Hemoglobin 29.9 pg (27.0-33.0); Mean Corpuscular Volume 84.4 fL (80.0-98.0); NRBC Abs Auto 0.000 X10*3/uL (0.0-0.012); NRBC Pct Auto 0.0 /100WBC (0.0-0.2); Platelet Count 145 X10*3/uL (160-400); Red Blood Count 4.75 X10*6/uL (4.60-5.80); White Blood Count 5.0 X10*3/uL (4.8-10.8)
[2025-03-15 08:40] LABS: Alanine Aminotransferase 37 U/L (0-40); Albumin Level 4.5 g/dL (3.5-5.0); Alkaline Phosphatase 128 U/L (39-117); Anion Gap 10 (12-20); Aspartate Amino Transferase 28 U/L (5-37); Blood Urea Nitrogen 19 mg/dL (9-16); Calcium 9.1 mg/dL (8.4-10.2); Carbon Dioxide 24 mmol/L (22-29); Chloride 109 mmol/L (96-108); Estimated Glomerular Filt Rate > 60; Magnesium 1.8 mg/dL (1.6-2.6); Potassium 4.4 mmol/L (3.3-5.1); Sodium 139 mmol/L (135-145); Total Protein 6.9 g/dL (6.5-8.0)
[2025-03-16 13:14] LABS: Tacrolimus Prograf 4.9 mcg/L
== END 2025-03-15 07:13 | disposition home or self-care (01) ==
LOC: HO.LABR 07:12
PROVIDERS: PCP Internal Medicine; Visit Provider Internal Medicine
DX: Z51.81 Encounter for therapeutic drug level monitoring (principal); Z94.4 Liver transplant status; Z85.05 Personal history of malignant neoplasm of liver; Z79.899 Other long term (current) drug therapy
CPT/HCPCS: 36415; 80053; 80197; 82105; 83735; 85025

== ENCOUNTER 2025-04-18 07:17 | Outpatient (REF) | payer OTHER, SELFPAY ==
--- OUTSIDE RECORDS SUMMARY | 2024-05-26 05:15 | XMS_ITS ---
Author Organization [facility] Reji bill [place] Address [address] [facility] [place] [address] Care Team Providers Care Motor Bike Mechanic Name Role Phone Nura Conenlly MD, Agustin Primary Care Provide r Unavailable Devan Johnson Unavailable Yovanny Long Unavailable [phone] REASON FOR VISIT last visit pcp 12/31/23, Painful nail(s) aggravated by shoes causing difficulty standing/walking Medications Medication SIG (Take, Route, Frequency, Duration) Notes Start Date End Date Status Multivitamin - 1 tablet Orally Once a day Active Ammonium Lactate 12 % 1 application Exte rnally to affected areas of dry skin to feet except for between the toes Twice a day; Duration: 30 days Active Tacrolimus 1 MG as directed Orally Active Magnesium 400 MG as directed Orally Active Omeprazole 20 MG 1 capsule 1/2 to 1 h our before morning meal Orally Once a day Active Vitamin D3 967225 UNIT/GM as directed Active Losartan Potassium 25 [...] Additional Findings: Tobacco non-user Current no nsmoker Encounters Encounter [facility] Date [facility] [place] [address] 05/26/2024 Yovanny Long Onychomycosis B35.1 ; Pain in right toe(s) M79.674 and Pain in left toe(s) M79.675 Assessments Encounter Date Diagnosis (ICD Code) Assessment Notes Treatment Notes Treatment Clinical Notes Section Notes 05/26/2024 Onychomycosis (ICD-10 - B35.1) 05/26/2024 Pain in right toe(s) (ICD-10 - M79.674) 05/26/2024 Pain in left toe(s) (ICD-10 - M79.675) 05/26/2024 Other Plan Of Treatment Next Appt Details Follow Up: 2 Months, Reason: Provider Name:Devan Johnson, 06/21/2025 10:00:00 AM, [address] [facility], [place], [address], Procedure Notes * Category Sub-Category Detail Notes Debride Nail 6-10 Nail debridement Due to the cl inical pathology outlined in the exam findings, performance of this nail treatment is medically necessary as its management by an unskilled/untrained nonprofessional would put this patients foot and overall health at risk. Therefore, debridement to affected nail(s), as described in exam TA, T1, T2, T3, T4, T5, T6, T7, T8, T9, was performed exclusively by the physician of record to reduce/remove overall nail length, girth, thickness, subungual debris, and necrotic tissue, by manual and/or electrical means through the use of a nail nipper and/or dremel-type grinder machine setter, to a more viable healthy nail plate or bed tissue 6-10 nails in total. Silver nitrate was used for any petechial bleeding as necessary. Definitive antifungal treatment options, both pharmaceutical and surgical, have been reviewed and discussed with the patient. The patient solely prefers the use of intermittent/as needed professional debridement services for their nail condition and understands the need for additional periodic treatments to maintain effectiveness in symptomatic relief - 25529 Progress Notes * Edward JONDOB:[birth year] (60 yo M)Acc No.[id number]:05/26/2024 Progress Note Patient: Edward WINTER Provider: Kishan Long D.P.M. :1965 A ge:59 Y S ex:Male Date:05/26/2024 Address:[address] [place], [place] [id number] Pcp:Agustin Connelly MD Subjective: * Chief Complaints: * 1 . Last visit pcp 12/31/23. 2. Painful nail(s) aggravated by shoes causing difficulty standing/walking. * ROS: G eneral/Constitutional: Nausea d enies. V omiting d enies. H marilu Thirst d enies. L oss appetite d enies. C hills d enies. F atigue d enies.?Fever d enies. N ight Sweats d enies. U nexplained weight loss d enies. U nexplained weight gain d enies. H EENTM: Dentures d enies. D izziness d enies. G lasses/contacts d enies. R etinopathy d enies. B lurred/double vision d enies. T MJ?denies. D ischarge/drainage d enies. I mplants d enies. S ore throat d enies. D ental implants d enies. H malia of hearing d enies. D ifficulty chewing/swallowing/speaking d enies. N ose bleeds d enies. S ore mouth d enies. ? R espiratory: On Oxygen d enies. P neumonia/pleurisy d enies.?Bronchitis d enies. E mphysema d enies. C oughing d enies. C ough blood?denies. S hortness of breath d enies. W heezing d enies. C ardiovascular: Pacemaker d enies. M SWINE GENETICS RESEARCHER d enies. W PW d enies. C HF d enies. H eart attack d enies. S eptal defect d enies. R apid beat d enies. C hest pain d enies. A trial Fib. d enies. M urmur/Palpitations d enies. G astrointestinal: Hemorrhoids d enies. S tomach/Abdominal pain d enies. D ark blood stool d enies. I rritable bowel d enies. C onstipation d enies. D iarrhea d enies. H ematology: Swelling d enies. C lots d enies. V aricose Veins d enies. B ruising d enies. B leeding problem d enies. G enitourinary: Blood urine d enies. F requent/Painfu/urination/bladder control d enies. K idney stones d enies. I nfection (UTI) d enies. N ephropathy d enies. s ex trans dis (STD) d enies. P rostate d enies. M usculoskeletal: Hammertoes d enies. B unions d enies. B ack Pain d enies. M uscle Cramps/ Resting d enies. M uscle cramps / walking d enies.?Generalized aches and pains d enies. W eakness d enies. I nteg.: Cintron d enies. S cars d enies. C orns/calluses?admits. I ngrown nails d enies. P ainful nails a dmits. O pen Sores d enies. R ashes d enies. N eurologic: Difficulty sleeping d enies. B rain disorder d enies. N umbness d enies. B alance trouble d enies. C onfusion d enies. F ainting/blackouts d enies. T ingling d enies. T remors d enies. * Medical History: * Family History: M other: alive. F ather: . * Social History: T obacco Use: T obacco use other than smoking A re you an other tobacco user? N o Tobacco Control (Standard) T obacco use: N onsmoker A dditional Findings: Tobacco non-user C urrent nonsmoker * Medications: T aking Multivitamin - Tablet 1 tablet Orally Once a day , Taking Magnesium 400 MG Capsule as directed Orally , Taking Omeprazole 20 MG Capsule Delayed Release 1 capsule 1/2 to 1 hour before morning meal Orally Once a day , Taking Tacrolimus 1 MG Capsule as directed Orally , Taking Vitamin D3 939900 UNIT/GM Powder as directed , Taking Losartan Potassium 25 MG Tablet 1 tablet Orally Once a day , Taking Ammonium Lactate 12 % Cream 1 application Externally to affected areas of dry skin to feet except for between the toes Twice a day , Medication List reviewed and reconciled with the patient Objective: * Vitals: * Examination: C QM Exceptions:: Hemoglobin A1c not performed R luis: N o reason specified O phthalmology Referral: DIABETES EYE EXAM D iabetic Retinopathy Screening: Y es 08/2023 R etinal Screening Performed: Y es F indings of Diabetic Eye Exam: n o retinopathy 08/2023 G eneral Examination: GENERAL APPEARANCE: Sarath cordova a pleasant, alert, well-nourished, well-developed, well hydrated individual, who demonstrates proper attention to hygiene/body habitus, and is in no acute distress, 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 ORIENTED: p erson, place, and time. N eurological: SENSORY: N eurological exam reveals intact sensorium, pain sensation normal, vibration sensation intact, pinprick sensation is normal in the lower extremities, Pt denies, anesthesia, burning, paresthesia, tingling, B/L. DEEP TENDON REFLEXES: A chilles, 2/4, B/L. V ascular: DP PULSES (B): 2 /4, B/L. PT PULSES (B): 2 /4, B/L. CAPILLARY FILL TIME: i mmediate, all digits, B/L. TROPHIC CONDITION-TEXTURE/ELASTICITY/TURGOR/HAIR GROWTH (B):?normal, B/L. TEMPERTURE GRADIENT (C): w arm to cool, proximal to distal, B/L. PIGMENTATION: n ormal, B/L. EDEMA (C): a bsent, B/L. D ermatologic: SKIN FINDINGS: S kin exam reveals normal texture, elasticity, and turgor. There are no masses. The interspaces are clear , Skin shows sign(s) of, dryness, scaling, in a stocking fashion, no fissure(s) present, B/L. O rthopedic: MUSCLE STRENGTH: 5 /5 all groups in a symmetrical fashion , B/L. N ails: NAILS are: E longated, overgrown, dystrophic, lytic, greater than 3mm thick, discolored and friable with crumbly malodorous subungual debris, with pain on palpation, TA, T1, T2, T3, T4, T5, T6, T7, T8, T9. Assessment: * Assessment: 1. O nychomycosis - B35.1 (Primary) 2 . P ain in right toe(s) - M79.674? 3. P ain in left toe(s) - M79.675 Plan: * Treatment: * Procedures: D ebride Nail 6-10: Nail debridement D ue to the clinical pathology outlined in the exam findings, performance of this nail treatment is medically necessary as its management by an unskilled/untrained nonprofessional would put this patients foot and overall health at risk. Therefore, debridement to affected nail(s), as described in exam TA, T1, T2, T3, T4, T5, T6, T7, T8, T9, was performed exclusively by the physician of record to reduce/remove overall nail length, girth, thickness, subungual debris, and necrotic tissue, by manual and/or electrical means through the use of a nail nipper and/or dremel-type grinder machine setter, to a more viable healthy nail plate or bed tissue 6-10 nails in total. Silver nitrate was used for any petechial bleeding as necessary. Definitive antifungal treatment options, both pharmaceutical and surgical, have been reviewed and discussed with the patient. The patient solely prefers the use of intermittent/as needed professional debridement services for their nail condition and understands the need for additional periodic treatments to maintain effectiveness in symptomatic relief - 76305. * Procedure Codes: 1 1721 DEBRIDE NAIL, 6 OR MORE * Follow Up: 2 Months * Images: * The named appointment provid er may or may not be the originator of this progress note, and it is not deemed complete until electronically signed by the appointment provider. Sign off status: Pending * Provider: Kishan Long D.P.M. Date: 0 05/26/2024 Generated for Francisco reagan/Eloina/Samantha on: 08:57 AM EST History and Physical Notes * Examination Category Sub-Category Detail Notes Category Not [...] Exam:: no retin opathy 08/2023 Vascular DP PULSES (B): 2/4, B/L PT PULSES (B): 2/4, B/L CAPILLARY FILL TIME: immediate, all digi ts, B/L TEMPERTURE GRADIENT (C): warm to cool, p roximal to distal, B/L TROPHIC CONDITION-TEXTURE/ELASTICITY/TURGOR/HAIR GROWTH (B): normal, B/L EDEMA (C): absent, B/L PIGMENTATION: normal, B/L Nails NAILS are: Elongated, overg rown, dystrophic, lytic, greater than 3mm thick, discolored and friable with crumbly malodorous subungual debris, with pain on palpation, TA, T1, T2, T3, T4, T5, T6, T7, T8, T9 CQM Exceptions: Hemoglobin A1c not performed Reason:: No r luis specified
--- OUTSIDE RECORDS SUMMARY | 2024-08-29 06:00 | XMS_ITS ---
Author Organization [facility] Address [address] [place] [address] Care Team Providers Care Tax Record Clerk Name Role Phone Nura Connelly MD, Agustin Primary Care Provide Devan Huynh Unavailable [phone] Sun Jj Unavailable [phone] Encounters Encounter Location Date Provider Diagnosis [address] [address] 08/29/2024 Sun Jj Plan Of Treatment Next Appt Details Provider Name:Devan Johnson, 06/21/2025 10:00:00 AM, [address] [facility], [place], [address], Progress Notes * Edward JONDOB:[birth year] (60 yo M)Acc No.[id number]:08/29/2024 Progress Note Patient: Edward WINTER Provider: Hola Jj DPM :1965 A ge:59 Y S ex:Male Date:08/29/2024 Address:[address] [place] [address], [place] Pcp:Agustin Connelly MD Subjective: * Chief Complaints: [...] 08/29/2024 Generated for Francisco reagan/Eloina/Samantha on: 1 08:57 AM EST
[2025-04-18 07:31] LABS: MANUAL DIFF FLAG NO
[2025-04-18 08:03] LABS: Hematocrit 43.2 % (42.0-52.0); Hemoglobin 15.3 g/dl (14.0-18.0); Imm Gran Abs Auto 0.01 X10*3/uL (0.00-0.03); Imm Gran Pct Auto 0.2 % (0.0-0.4); Lymphocytes Absolute Auto 1.3 X10*3/uL (1.2-4.9); Mean Corpuscular HGB Conc 35.4 g/dl (31.0-36.0); Mean Corpuscular Hemoglobin 29.8 pg (27.0-33.0); Mean Corpuscular Volume 84.0 fL (80.0-98.0); NRBC Abs Auto 0.000 X10*3/uL (0.0-0.012); NRBC Pct Auto 0.0 /100WBC (0.0-0.2); Platelet Count 113 X10*3/uL (160-400); Red Blood Count 5.14 X10*6/uL (4.60-5.80); White Blood Count 4.7 X10*3/uL (4.8-10.8)
--- OUTSIDE RECORDS SUMMARY | 2025-04-18 08:59 | XMS_ITS | Encounter Summary ---
Author Organization [facility] Address [address] [place] [address] Care Team Providers Care Hardness Inspector Name Role Phone Agustin Mix Primary Care Provider + Encounter Details Date Type Department Care Team (Late st Contact Info) Description 01/21/2017 Transplant Conversio n Encounter [facility] Health Information Management [address] [place] [address] Provider, Historical [facility] Social History Tobacco Use Types Packs/Day [...] Care Team (Late st Contact Info) Description 10/02/2025 12:00 PM EDT Follow-Up [facility] Liver Transplant Services [address] [place] [address] Dylan Phelps MD [address] [place] [address] documented as of this encounter Visit Diagnoses Not on filedocumented in this encounter Additional Health Concerns Infection Onset Date Last Indicated Resolved Time 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 > 6 months ago - can D/C contact isolation 01/20/2019 02/10/2019 08/10/2019 9:27 AM E DT COVID-19 - Suspected infection 03/05/2020 03/17/2020 03/17/2020 7:55 PM EST COVID-19 - Confirmed infection 05/01/2020 05/07/2020 06/01/2020 5:06 PM EST COVID-19 - Suspected infection 05/10/2020 05/10/2020 05/24/2020 10:34 PM EST documented as of this encounter Care Teams Hardness Inspector Relationship Specialty Start Date End Date Agustin Mix [address] [place] [address] PCP - General Internal Medicine 04/15/17 documented as of this encounter
--- OUTSIDE RECORDS SUMMARY | 2025-04-18 08:59 | XMS_ITS | Encounter Summary ---
Author Organization [employer] Address [address] [place] [address] 7 [place] [address] Care Team Providers Care Kitchen Supervisor Name Role Phone Agustin Marrero MD Primary Care Provide r Reason for Visit * Reason Onset Date Comments Med Refill 03/01/2024 Encounter Details Date Type Department Care Team ([facility] st Contact Info) Description 03/01/2024 Telephone [facility] MEDICINE 230 [place], [place] [phone] Agustin Marrero MD 230 [place], [place] [phone] Med Refill Social History Tobacco Use Types [...] 2:24 PM EST Received fax from [facility] requesting script clarification need directions. * Telephone Encounter - Manjeet Mclaughlin - 03/01/2024 2:21 PM EST TC from pt requesting medication refill. Medications needing refill : traMADol (Ultram) 50 MG table To be sent to: [facility]/pharmacy #[id number] documented in this encounter Plan of Treatment Upcoming Encounters Date Type Department Care Team (Late st Contact Info) Description 05/31/2025 8:00 AM EST Office Visit [facility] ADULT DENTAL [address] [place] [address] Catherine Antonio [address] [place] [address] 07/14/2025 10:30 AM EDT Clinical Support [facility] MEDICINE [address] [place] [address] Shwetha Collado RN 505 [place] [address] documented as of this encounter Visit Diagnoses Not on filedocumented in this encounter Additional Health Concerns Assessment Noted Time PHQ-9 Depression Total Score: 0 12/03/19 10:31 AM EDT documented as of this encounter Care Teams Kitchen Supervisor Relationship Specialty Start Date End Date Agustin Marrero MD [address] [place] [address] PCP - General Internal Medicine 01/25/14 [facility] 06/13/16 documented as of this encounter
--- OUTSIDE RECORDS SUMMARY | 2025-04-18 08:59 | XMS_ITS | Encounter Summary ---
Author Organization [employer] Address [address] [place] [address] 7 [place] [address] Care Team Providers Care Telegraphic Instrument Supervisor Name Role Phone Agustin Marrero MD Primary Care Provide r Reason for Visit * Reason Onset Date Comments Med Refill 09/05/2024 Encounter Details Date Type Department Care Team ([facility] st Contact Info) Description 09/05/2024 Telephone [facility] MEDICINE 230 [place], [place] [phone] Agustin Marrero MD 230 [place], [place] [phone] Med Refill Social History Tobacco Use Types [...] 50 MG tablet To be sent to: [facility]/pharmacy #[id number] [place] [address] documented in this encounter Plan of Treatment Upcoming Encounters Date Type Department Care Team (Late st Contact Info) Description 05/31/2025 8:00 AM EST Office Visit [facility] ADULT DENTAL [address] [place] [address] Paco, Catherine [address] [place] [address] 07/14/2025 10:30 AM EDT Clinical Support [facility] MEDICINE [address] [place] [address] Shwetha Collado, KATALINA 505 [place] [address] documented as of this encounter Visit Diagnoses Not on filedocumented in this encounter Additional Health Concerns Assessment Noted Time PHQ-9 Depression Total Score: 0 08/15/20 24 10:31 AM EDT documented as of this encounter Care Teams Telegraphic Instrument Supervisor Relationship Specialty Start Date End Date Agustin Marrero MD [address] [place] [address] PCP - General Internal Medicine 01/25/14 [facility] 06/13/16 documented as of this encounter
--- OUTSIDE RECORDS SUMMARY | 2025-04-18 08:59 | XMS_ITS | Encounter Summary ---
Author Organization [employer] Address [address] [place] [address] 7[place] [address] Care Team Providers Care Therapeutic Specialist Name Role Phone Agustin Marrero MD Primary Care Provide r Encounter Details Date Type Department Care Team (Latest Contact Info) Description 06/18/2021 Abstract [facility] [...] Description 05/31/2025 8:00 AM EST Office Visit [facility] ADULT DENTAL [address] [place] [address] Catherine Antonio [address] [place] [address] 07/14/2025 10:30 AM EDT Clinical Support [facility] MEDICINE [address] [place] [address] Shwetha Collado RN 505 [place] [address] documented as of this encounter Visit Diagnoses Not on filedocumented in this encounter Care Teams Therapeutic Specialist Relationship Specialty Start Date End Date Agustin Marrero MD 230 [place] [address] PCP - General Internal Medicine 01/25/14 [facility] 06/13/16 documented as of this encounter
--- OUTSIDE RECORDS SUMMARY | 2025-04-18 08:59 | XMS_ITS | Encounter Summary ---
Author Organization [employer] Address [address] [place] [address] 7t [place] [address] Care Team Providers Care Research Support Specialist Name Role Phone Agustin Marrero MD Primary Care Provide r Reason for Visit * Reason Comments Med Refill Encounter Details Date Type Department Care Team ([facility] st Contact Info) Description 12/24/2023 Refill [facility] MEDICINE 230 [place], [place] [phone] Agustin Marrero MD 230 [place], [place] [phone] Chronic midline low back pain without sciatica [...] Description 05/31/2025 8:00 AM EST Office Visit [facility] ADULT DENTAL [address] [place] [address] Paco, Catherine [address] [place] [address] 07/14/2025 10:30 AM EDT Clinical Support [facility] MEDICINE [address] [place] [address] Shwetha Collado, KATALINA [address] [place] [address] documented as of this encounter Visit Diagnoses Diagnosis Chronic midline low back pain without sciatica documented in this encounter Additional Health Concerns Assessment Noted Time PHQ-9 Depression Total Score: 0 12/03/19 24 10:31 AM EDT documented as of this encounter Care Teams Research Support Specialist Relationship Specialty Start Date End Date Agustin Marrero MD [address] [place] [address] PCP - General Internal Medicine 01/25/14 [facility] 06/13/16 documented as of this encounter
--- OUTSIDE RECORDS SUMMARY | 2025-04-18 08:59 | XMS_ITS | Encounter Summary ---
Author Organization [employer] Address [address] [place] [address] 7 [place] [address] Care Team Providers Care Aircraft Delivery Checker Name Role Phone Agustin Marrero MD Primary Care Provide r Reason for Visit * Reason Onset Date Comments Med Refill 10/04/2024 Encounter Details Date Type Department Care Team ([facility] st Contact Info) Description 10/04/2024 Telephone [facility] MEDICINE [address] [place], [place] [phone] Agustin Marrero MD [address] [place], [place] [phone] Med Refill Social History Tobacco Use Types [...] 50 MG tablet To be sent to: [facility]/pharmacy #[id number] [place] [address] - [address] [place] [address] documented in this encounter Plan of Treatment Upcoming Encounters Date Type Department Care Team (Late st Contact Info) Description 05/31/2025 8:00 AM EST Office Visit [facility] ADULT DENTAL [address] [place] [address] Matty Antonioaris [address] [place] [address] 07/14/2025 10:30 AM EDT Clinical Support [facility] MEDICINE [address] [place] [address] Shwetha Collado RN [address] [place] [address] documented as of this encounter Visit Diagnoses Not on filedocumented in this encounter Additional Health Concerns Assessment Noted Time PHQ-9 Depression Total Score: 0 12/03/19 24 10:31 AM EDT documented as of this encounter Care Teams Aircraft Delivery Checker Relationship Specialty Start Date End Date Agustin Marrero MD [address] [place] [id number] PCP - General Internal Medicine 01/25/14 [facility] 06/13/16 documented as of this encounter
--- OUTSIDE RECORDS SUMMARY | 2025-04-18 08:59 | XMS_ITS | Encounter Summary ---
Author Organization [facility] Address [address] [place] [address] Care Team Providers Care Child Psychology Teacher Name Role Phone Agustin Mix Primary Care Provider + Encounter Details Date Type Department Care Team (Late st Contact Info) Description 06/28/2020 Telephone [facility] Central Scheduling Department [address] [place] [phone] Telephone Intake, Staff Social History Tobacco Use [...] and can be reached at phone number [phone]. Thank you documented in this encounter Plan of Treatment Upcoming Encounters Date Type Department Care Team (Late st Contact Info) Description 10/02/2025 12:00 PM EDT Follow-Up [facility] Liver Transplant Services [address] [place], [place] [phone] Dylan Phelps MD [address] [place], [place] [phone] documented as of this encounter Visit Diagnoses Not on filedocumented in this encounter Care Teams Child Psychology Teacher Relationship Specialty Start Date End Date Agustin Mix [address] [place] [address] PCP - General Internal Medicine 04/15/17 documented as of this encounter
--- OUTSIDE RECORDS SUMMARY | 2025-04-18 08:59 | XMS_ITS | Encounter Summary ---
Author Organization [employer] Address [address] [place] [address] [address] [place] [address] Care Team Providers Care Crepe Box Tender Name Role Phone Agustin Marrero MD Primary Care Provide r Reason for Visit * Reason Comments Med Refill Encounter Details Date Type Department Care Team (Late st Contact Info) Description 05/14/2022 Refill [facility] MEDICINE [address] [place] [address] Agustin Marrero MD [address] [place] [address] Chronic midline low back pain without sciatica [...] Description 05/31/2025 8:00 AM EST Office Visit [facility] ADULT DENTAL [address] [place] [address] Catherine Antonio [address] [place] [address] 07/14/2025 10:30 AM EDT Clinical Support [facility] MEDICINE [address] [place] [address] Shwetha Collado, RN [address] [place] [address] documented as of this encounter Visit Diagnoses Diagnosis Chronic midline low back pain without sciatica documented in this encounter Care Teams Crepe Box Tender Relationship Specialty Start Date End Date Agustin Marrero MD [address] [place] [address] PCP - General Internal Medicine 01/25/14 [facility] 06/13/16 documented as of this encounter
--- OUTSIDE RECORDS SUMMARY | 2025-04-18 08:59 | XMS_ITS | Clinical Summary ---
Author Organization [email or web address] Address [address] [place] [address] [address] [place] [address] Care Team Providers Care Cut Out Press Operator Name Role Phone Agustin Marrero MD Primary Care Provide r Allergies No known active allergies Medications * This document contains information received from the source organization and may not represent a complete record from that organization. Blood Glucose Monitoring Suppl (AccountNowyle [place] Lite) w/Device kit TEST 1 TIMES BY INTRADERMAL ROUTE EVERY DAY 022 Active Continuous Blood Gluc Certified Teacher Assistant (WideOrbitStyle Arvin 2 [place]) device Active ferrous sulfate 325 (65 Fe) [...] OLINDA TABLETA TODOS LOS D CON LA APPRENTICE MACHINIST OUTSIDE Active sodium polystyrene sulfonate (Kayexalate) powder TAKE [...] complication, with long-term current use of insulin ([facility]) USE 1 EACH DIRECTED THREE TIMES EVERY [...] PLEASE SEE ATTACHED FOR DETAILED DIRECTIONS Active glucose blood (FREESTYLE LITE) test stripIndications: Type 2 diabetes mellitus without complications ([facility]) USE TO TEST BLOOD SUGAR THREE TIMES DAILY 300 strip 3 Active sildenafil (Viagra) 100 MG tablet TAKE 1 TABLET 1 HOUR BEFORE SEXUAL RELATIONS ONCE DAILY NEEDED. 12 tablet 4 04/05/20 25 12:53 PM EST Active omeprazole (PriLOSEC) [address] capsuleIndication s:Gastroesophagea l reflux disease, unspecified whether esophagitis present TAKE 1 CAPSULE BY MOUTH BEFORE BREAKFAST 90 capsule 1 Active naloxone (Narcan) 4 mg/0.1 mL nasal [...] complication, with long-term current use of insulin ([facility]) USE DIRECTED EVERY 14 DAYS 2 each 2 025 Active NovoLOG FLEXPEN 100 UNIT/ML penIndications:Ty pe 2 diabetes mellitus without complication, with long-term current use of insulin ([facility]) Use Insulin as per sliding scale TID (BG 150-200mg/dL: 10 units, 201-250 : 12 units, 251-300: 14 units, 301-350: 16 units, 351-400 18 units, >400 20 units 15 mL 025 Active cholecalciferol (Vitamin D3) 25 MCG (1000 UT) tabletIndications :Type 2 diabetes mellitus without complication, with long-term current use of insulin ([facility]) TAKE 1 TABLET BY MOUTH EVERY DAY 90 tablet 1 025 Active zolpidem (Ambien) 10 MG tabletIndications :Primary insomnia TOME 1 TABLETA POR VIA ORAL TODOS LOS QUINONES AL ACOSTARSE CUANDO SEA NECESARIO 30 tablet 025 Active traMADol (Ultram) 50 MG tabletIndications :Chronic midline low back pain without sciatica Take 1 tablet (50 mg) by mouth every 8 (eight) hours if needed for severe pain. 84 tablet 025 Active Multiple Vitamin (Daily-Stacy Multivitamin) tablet TAKE 1 TABLET BY MOUTH EVERY DAY 90 tablet 3 025 Active Multiple Vitamin (Daily-Stayc Multivitamin) tablet Take 1 tablet by mouth every day 90 tablet 3 025 2024 Discontinued traMADol (Ultram) 50 MG tabletIndications :Chronic midline low back pain without sciatica TAKE 1 TABLET (50 MG) BY MOUTH EVERY 8 (EIGHT) HOURS IF NEEDED FOR SEVERE PAIN. 84 tablet 025 2024 Discontinued(D uplicate order (will not trigger notification to Pharmacy)) traMADol (Ultram) 50 MG tabletIndications :Chronic midline low back pain without sciatica TAKE 1 TABLET (50 MG) BY MOUTH EVERY 8 (EIGHT) HOURS IF NEEDED FOR SEVERE PAIN. 84 tablet 025 2024 Discontinued(R eorder (will [...] 8 (eight) hours if needed for severe pain for up to 7 days. 21 tablet 025 2024 Discontinued(R eorder (will not [...] midline low back pain without sciatica Last JUDICIAL LAW CLERK Agreement: 09/01/23 Normal oral exam 12/17/2023 Class [...] FOREIGN BODY(S)/STENT(S)/PANCREATIC DUCT(S) WITH POSSIBLE MODERATE SEDATION [47945 (CPT )] Partial edentulism 01/14/2023 Hospital discharge [...] local wound injections. He was seen by renewals specialist at [facility] who [...] local wound injections. He was seen by renewals specialist at [facility] who [...] units He is under the care of [facility] [place] Endocr[facility]ology given that he is a liver [...] 20 units He isunder the care of [facility] [place] Endocr[facility]ology given that he is a liver [...] non compliance. He isunder the care of [facility] [place] Endocr[facility]ology given that he is a liver transplant patient, last seen 2024. Hgb A1c 07/05/2024: 7.2 from 7 Eye exam ordered previous visit Microalbumin 04/06/2024 was 68 Foot check risk of zero Pt advised to: adhere to diabetic diet Previous visit pt was referred to Program Clerk and DE Plan: continue current regimen Pt [...] non compliance. He isunder the care of [facility] [place] Endocr[facility]ology given that he is a liver transplant patient, last seen 2024. Hgb A1c 04/05/2024: 7 from 7.4 Eye exam ordered previous visit Microalbumin 11/01/2020 was 43 , ordered today Foot check risk of zero Pt advised to: adhere to diabetic diet Previous visit pt was referred to Program Clerk and DE Plan: continue current regimen Pt [...] non compliance. He isunder the care of [facility] [place] Endocr[facility]ology given that he is a liver transplant patient, last seen 04/21/2023. Hgb A1c 12/03/2023: 7.4 from 7.1 Eye exam ordered previous visit Microalbumin 11/01/2020 was 43 Foot check risk of zero Pt advised to: adhere to diabetic diet Previous visit pt was referred to Program Clerk and DE Plan: continue current regimen Pt [...] non compliance. He isunder the care of [facility] [place] Endocr[facility]ology given that he is a liver transplant patient, last seen 04/21/2023. Hgb A1c 06/16/2023: 7.1 Eye exam ordered previous visit Microalbumin 11/01/2020 was 43 Foot check risk of zero Pt advised to: adhere to diabetic diet Previous visit pt was referred to Program Clerk and DE Plan: continue current regimen Pt [...] supposed to be under the care of [facility] [place] Endocrinology given that he is a liver transplant patient, last seen 08/01/2021. He had an appointment scheduled in August but he no showed. Today he tells me he will stay at [facility] [place] Hgb A1c 02/12/2023 was 6.7 Eye exam ordered previous visit Microalbumin 11/01/2020 was 43 Foot check risk of zero Pt advised to: adhere to diabetic diet Previous visit pt was referred to Program Clerk and DE Plan: continue current regimen Pt [...] supposed to be under the care of [facility] [place] [place] Endocrinology given that he is a liver transplant patient, last seen 08/01/2021. He had an appointment scheduled in August but he no showed. Today he tells me he will stay at [facility] [place] [place] Hgb A1c 09/02/2021 was 6.5 Eye exam ordered previous visit Microalbumin 11/01/2020 was 43 Foot check risk of zero Pt advised to: adhere to diabetic diet Previous visit pt was referred to Program Clerk and DE Plan: continue current regimen check [...] He is now under the care of [facility] [place] [place] Endocrinology given that he is a liver transplant patient, last seen 08/01/2021 Hgb A1c 09/02/2021 was 6.5 Eye exam ordered previous visit Microalbumin 11/01/2020 was 43 Foot check risk of zero Pt advised to: adhere to diabetic diet Previous visit pt was referred to Program Clerk and DE Plan: continue current regimen check [...] He is now under the care of [facility] [place] Endocrinology given that he is a liver transplant patient, last seen 08/01/2021 Hgb A1c 04/22/2021 was 6.2 Eye exam ordered previous visit Microalbumin 11/01/2020 was 43 Foot check risk of zero Pt advised to: adhere to diabetic diet Previous visit pt was referred to Program Clerk and DE Plan: continue current regimen check [...] blood work 05/01/2020 and was referred to [facility] where his LFT's were [id number] [...] organization. Date Type Department Care Team Description 04/17/2025 Telephone [facility] [address] [place] [address] Shwetha Collado RN 04/17/2025 Telephone [facility] MEDICINE [address] [place] [address] Agustin Marrero MD Medication Question 04/12/2025 Telephone [facility] [address] [place] [address] Shwetha Collado RN 04/12/2025 Telephone [facility] [address] [place] [address] Shwetha Collado RN 04/10/2025 Telephone [facility] MED[facility] [address] [place] [address] Agustin Marrero MD Med Refill 04/10/2025 Telephone [facility] [address] [place] [address] Shwetha Collado, KATALINA Med Refill 04/09/2025 Refill [facility] [address] [place] [address] Agustin Marrero MD 04/08/2025 Refill [facility] MED[facility] [address] [place] [address] Agustin Marrero MD Chronic midline low back pain without sciatica 04/06/2025 Telephone [facility] [address] [place] [address] Shwetha Collado RN 04/05/2025 Telephone [facility] MED[facility] [address] [place] [address] Agustin Marrero MD Medication Question 04/04/2025 2:00 PM EST Clinical Support [facility] [address] [place] [address] Shwetha Collado RN Chronic midline low back pain without sciatica (Primary Dx) 04/04/2025 Orders Only [facility] [address] [place] [address] Agustin Marrero MD Chronic midline low back pain without sciatica 04/04/2025 Refill [facility] [address] [place] [address] Shwetha Collado, credit clerk midline low back pain without sciatica 04/04/2025 Travel 03/30/2025 Telephone [facility] [address] [place] [address] Shwetha Collado, head knitting machine fixer Question 03/29/2025 Refill [facility] [address] [place] [address] Agustin Marrero MD Primary insomnia 03/29/2025 Telephone [facility] [address] [place] [address] Shwetha Collado, RN Appointment Request 03/29/2025 Telephone [facility] MEDICINE [address] [place] [address] Agustin Marrero MD Appointment Request 03/28/2025 Refill [facility] [address] [place] [address] Shwetha Collado RN Chronic midline low back pain without sciatica 03/28/2025 Refill [facility] [address] [place] [address] Agustin Marrero MD Chronic midline low back pain without sciatica; Primary insomnia 03/27/2025 Telephone [facility] [address] [place] [address] Shwetha Collado, KATALINA 03/24/2025 Telephone [facility] [address] [place] [address] Shwetha Collado, KATALINA Appointment Request 03/11/2025 Refill [facility] [address] [place] [address] Agustin Marrero MD Type 2 diabetes mellitus without complication, with long-term current use of insulin (HCC) 03/02/2025 Refill [facility] [address] [place] [address] Natasha Wall MD Primary insomnia 02/27/2025 Telephone [facility] MEDICINE [address] [place] [address] Agustin Marrero MD Med Refill 02/27/2025 Telephone [facility] MED[facility]INE [address] [place] [address] Agustin Marrero MD Med Refill 02/26/2025 Refill [facility] [address] [place] [address] Lela Wu MD Chronic midline low back pain without sciatica; Type 2 diabetes mellitus without complication, with long-term current use of insulin (HCC) 02/26/2025 Refill [facility] MED[facility] [address] [place] [address] Natasha Wall MD Primary insomnia 02/23/2025 10:00 AM EST Office Visit [facility] [address] [place] [address] Agustin Marrero MD Type 2 diabetes mellitus without complication, with long-term current use of insulin (HCC) (Primary Dx); Essential hypertension; Other male erectile dysfunction; Gynecomastia; Depression, recurrent (CMS/HCC) 02/23/2025 Telephone [facility] MEDICINE [address] [place] [address] Kasey Chatman, RN Durable Medical Equipment 02/23/2025 Travel 02/22/2025 Telephone [facility] [address] [place] [address] Theodora Wolf MA 02/16/2025 Patient Outreach [facility] [address] [place], [place] [phone] Agustin Marrero MD Pre-visit Planning (SDOH was already completed) 02/14/2025 Refill [facility] [address] [place] [address] Agustin Marrero MD Type 2 diabetes mellitus without complication, with long-term current use of insulin (HCC) 02/09/2025 Telephone [facility] MEDIC[facility] [address] [place] [address] Agustin Marrero MD order 02/03/2025 Refill [facility] MED[facility] [address] [place] [address] Agustin Marrero MD Primary insomnia 01/28/2025 Refill [facility] [address] [place] [address] Lela Wu MD Chronic midline low back pain without sciatica 01/19/2025 Refill [facility] [address] [place] [address] Agustin Marrero MD Chronic midline low back pain without sciatica 01/18/2025 Telephone [facility] MED[facility] [address] [facility], [place] [phone] Agustin Marrero MD 01/17/2025 Telephone [facility] MED[facility] [address] [facility], [place] [phone] Agustin Marrero MD from Last 3 Months [...] Description 05/31/2025 8:00 AM EST Office Visit [facility] ADULT DENTAL [address] [place] [address] Matty Antonioaris [address] [place] [address] 07/14/2025 10:30 AM EDT Clinical Support [facility] [address] [place] [address] Shwetha Collado, KATALINA [address] [place] [address] Health Maintenance Due Date Last Done Comments [...] Cancer Screening 06/28/2024 Eye Exam 09/22/2024 09/22/2022, 06/08/2022, 09/22/2022, Additional [...] on patient's age to complete this topic Goals Goal Patient Goal Type Associated Problems Recent Progress Patient-Stated? Author Help patients manage their type 2 diabetes Care Plan Help patients manage their type 2 diabetes No Shwetha Collado, KATALINA Patient has chronic kidney disease Care Plan Patient has chronic kidney disease Shwetha Lee RN Patient has chronic kidney disease Care Plan Patient has chronic kidney disease No Shwetha Collado RN Patient has chronic kidney disease Care Plan Patient has chronic kidney disease No Shwetha Collado RN Patient has chronic kidney disease Care Plan Patient has chronic kidney disease No Shwetha Collado RN Patient has chronic kidney disease Care Plan Patient has chronic kidney disease No Shwetha Collado RN Patient has chronic kidney disease Care Plan Patient has chronic kidney disease No Jon Claudio Patient has chronic kidney disease Care Plan Patient has chronic kidney disease No Shwetha Collado RN Patient has chronic kidney disease Care Plan Patient has chronic kidney disease No Xuan Shafer Patient has chronic kidney disease Care Plan Patient has chronic kidney disease No Shwetha Collado RN Patient has chronic kidney disease Care Plan Patient has chronic kidney disease No Shwetha Collado RN Patient has chronic kidney disease Care Plan Patient has chronic kidney disease No Shwetha Collado RN Patient has chronic kidney disease Care Plan Patient has chronic kidney disease No Agustin Marrero MD Patient has chronic kidney disease Care Plan Patient has chronic kidney disease No Elfego Tran Patient has chronic kidney disease Care Plan Patient has chronic kidney disease No Shwetha Collado RN Patient has chronic kidney disease Care Plan Patient has chronic kidney disease No Shwetha Collado RN Patient has chronic kidney disease Care Plan Patient has chronic kidney disease No Shwetha Collado RN Patient has chronic kidney disease Care Plan Patient has chronic kidney disease No Ruddy Allen Patient has chronic kidney disease Care Plan Patient has chronic kidney disease No Shwetha Collado RN Patient has chronic kidney disease Care Plan Patient has chronic kidney disease No Shwetha Collado RN Patient has chronic kidney disease Care Plan Patient has chronic kidney disease No Travis Grimm Patient has chronic kidney disease Care Plan Patient has chronic kidney disease No Shwetha Collado RN Procedures Procedure Name Priority Date/Time Associated Diagnosis Comments POCT ZOË-14 URINE DRUG SCREEN Routine 04/04/2025 2:04 PM EST Chronic midline low back pain without sciatica POCT GLYCATED HEMOGLOBIN, TOTAL Routine 02/23/2025 10:49 AM EST Type 2 diabetes mellitus without complication, with long-term current use of insulin (HCC) POCT GLUCOSE (CPT-19230) Routine 02/23/2025 10:49 AM EST Type 2 diabetes mellitus without complication, with long-term current use of insulin ([facility]) PROPHYLAXIS - ADULT Routine 11/16/2024 1 0:00 AM EDT Dental calculus Dental plaque Generalized gingival recession Chronic periodontal disease PERIODIC ORAL EVALUATION - ESTABLISHED PATIENT Routine 05/17/2024 10:00 AM EST ALBUMIN, RANDOM URINE W/CREATININE Routine 04/06/2024 8:10 AM EST Type 2 diabetes mellitus without complication, with long-term current use of insulin ([facility]) LIPID PANEL, STANDARD Routine 04/06/2024 8:10 AM EST Type 2 diabetes mellitus without complication, with long-term current use of insulin ([facility]) BITEWINGS - 4 RADIOGRAPHIC IMAGES Routine 10/13/2023 11:00 AM EDT HM COLONOSCOPY Routine 06/28/2021 from Last 3 Months or Most Recently Relevant to Health Maintenance Results * POCT ZOË-14 Urine Drug Screen (04/04/2025 2:04 PM EST) THC Negative Negative Cocaine Screen, Urine Negative [...] obtained by clean catch procedure / Unknown 04/04/2025 2:04 PM EST Narrative Shwetha Collado RN - 04/04/2025 2:04 PM EST . Internal Pass Control Lot# [id number] Exp: 01-24-26 us Agustin Connelly MD POINT OF CARE TEST EN TER/EDIT ORDERABLES Final Result * (ABNORMAL) POCT Hgb A1c (02/23/2025 10:49 AM EST) Hemoglobin A1C 7.2(A) 4.0 - 5.7 % QC Media Lot # [id number] Lot# Expiration Date 5,027 Blood 02/23/2025 10:4 9 AM EST us Agustin Connelly MD POINT OF CARE TEST ENTER/EDIT ORDERABLES Edited Result - Final * (ABNORMAL) POCT Glucose (02/23/2025 10:49 AM EST) Glucose Blood, POC 252(A) 60 - 200 mg/dL QC Media Lot # [id number] Lot# Expiration Date 3 Blood Capillary blood specimen / Unknown 02/23/2025 10:49 AM EST us Agustin Connelly MD POINT OF CARE TEST EN TER/EDIT ORDERABLES Final Result * (ABNORMAL) Albumin, Random Urine W/Creatinine (04/06/2024 8:10 AM EST) Creatinine, Urine 216.22 mg/dL [facility] Microalbumin Urine 68.0 mg/L [facility] Microalbum Creatinine Ratio Ur 31.4(H) <30 ug/mg cr [facility] Comment:Albumin/Creatinine R atio Reference Ranges: Normal: < 30 ug/mg creatinine Microalbuminuria: 30 - 300 ug/mg creatinineClinical Albuminuria: > 300 ug/mg creatinine Urine (Urine, Random) 04/06/2024 8:10 AM EST 04/06/2024 11:40 AM EST us Agustin Connelly MD LAB URINE ORDERABLES Final Result [facility] [address] [place] [phone] * (ABNORMAL) Lipid Panel, Standard (04/06/2024 8:10 AM EST) Triglycerides 109 <150 mg/dL [facility] Comment:Desirable Triglyceri de: less than 150 mg/dLBorderline High Triglyceride 150-199 mg/dLHigh Triglyceride: 200-499 mg/dLVery High Triglyceride: greater than or equal to 5OO mg/dL Cholesterol 177 <200 mg/dL [facility] Comment:Desirable Cholestero l: less than 200 mg/dLBorderline High Cholesterol: 200-239 mg/dLHigh Cholesterol: greater than 239 mg/dL LDL Cholesterol Calculated 115(H) <100 mg/dL [facility] Comment:Desirable LDL: less than 100 mg/dLNear Optimal/Above Optimal LDL: 110- 129 mg/dLBorderline High LDL: 130-159 mg/dLHigh LDL: 160-189 mg/dLVery High LDL: greater than or equal to 190 mg/dL HDL Cholesterol 41 >40 mg/dL [facility] Comment:Desirable HDL: great er than 40 mg/dL Note: This HDL assay may give artificially low results in patients with liver disease. Blood Venous blood specimen / Unknown 04/06/2024 8:10 AM EST 04/06/2024 11:51 AM EST Agustin Connelly MD LAB BLOOD ORDERABLES Final Result [facility] [address] [place] [address] [phone] * Hm Colonoscopy (06/28/2021) Colonoscopy Normal Normal 06/28/2021 Narrative Shanel Bo - 06/28/2021 9:58 AM EST Recommended 3 year follow up per GI notes ( [facility] [place] ) Historical Provider HEALTH MAINTENANCE Edited Result - Final from Last 3 Months or Most Recently Relevant to Health Maintenance Additional Health Concerns Active Problems Noted Date Diagnosed Date Help patients manage their type 2 diabetes 03/24 Patient has chronic kidney disease 03/24/2025 Patient has chronic kidney disease 03/24/2025 Patient has chronic kidney disease 03/27/2025 Patient has chronic kidney disease 03/28/2025 Patient has chronic kidney disease 03/28/2025 Patient has chronic kidney disease 03/29/2025 Patient has chronic kidney disease 03/29/2025 Patient has chronic kidney disease 03/29/2025 Patient has chronic kidney disease 03/30/2025 Patient has chronic kidney disease 04/04/2025 Patient has chronic kidney disease 04/04/2025 Patient has chronic kidney disease 04/04/2025 Patient has chronic kidney disease 04/05/2025 Patient has chronic kidney disease 04/06/2025 Patient has chronic kidney disease 04/10/2025 Patient has chronic kidney disease 04/10/2025 Patient has chronic kidney disease 04/10/2025 Patient has chronic kidney disease 04/12/2025 Patient has chronic kidney disease 04/12/2025 Patient has chronic kidney disease 04/17/2025 Patient has chronic kidney disease 04/17/2025 Insurance [facility] < [address] [place] [id number] [facility] Care Teams Cut Out Press Operator Relationship Specialty Start Date End Date Agustin Marrero MD [address] [place] [address] [place] [address] PCP - General Internal Medicine 01/25/14 [facility] 06/13/16
--- OUTSIDE RECORDS SUMMARY | 2025-04-18 08:59 | XMS_ITS | Encounter Summary ---
Author Organization [employer] Address [address] [place] [address] [address] [address] Care Team Providers Care Farm Consultant Name Role Phone Agustin Marrero MD Primary Care Provide r Encounter Details Date Type Department Care Team (Latest Contact Info) Description 05/23/2019 Abstract [facility] CONVERSIONS Dental, Provider, DDS Social History [...] Description 05/31/2025 8:00 AM EST Office Visit [facility] ADULT DENTAL [address] [place] [address] Catherine Antonio [address] [place] [address] 07/14/2025 10:30 AM EDT Clinical Support [facility] MEDICINE [address] [place] [address] Shwetha Collado RN [address] [place] [address] documented as of this encounter Visit Diagnoses Not on filedocumented in this encounter Care Teams Farm Consultant Relationship Specialty Start Date End Date Agustin Marrero MD [address] [place] [address] PCP - General Internal Medicine 01/25/14 [facility] 06/13/16 documented as of this encounter
--- OUTSIDE RECORDS SUMMARY | 2025-04-18 08:59 | XMS_ITS | Encounter Summary ---
Author Organization [employer] Address [address] [place] [address] 7t [place] [address] Care Team Providers Care Mammalogist Name Role Phone Agustin Marrero MD Primary Care Provide r Reason for Visit * Reason Comments Med Refill Encounter Details Date Type Department Care Team ([facility] st Contact Info) Description 2024 Refill [facility] MEDICINE [address] [place], [place] [phone] Agustin Marrero MD [address] [place] [address] Social History Tobacco Use Types Packs/Day Years [...] Description 05/31/2025 8:00 AM EST Office Visit [facility] ADULT DENTAL [address] [place] [address] Paco, Catherine [address] [place] [address] 07/14/2025 10:30 AM EDT Clinical Support [facility] MEDICINE [address] [place] [address] Shwetha Collado, RN [address] [place] [address] documented as of this encounter Visit Diagnoses Not on filedocumented in this encounter Additional Health Concerns Assessment Noted Time PHQ-9 Depression Total Score: 0 12/03/19 24 10:31 AM EDT documented as of this encounter Care Teams Mammalogist Relationship Specialty Start Date End Date Agustin Marrero MD [address] [place] [address] PCP - General Internal Medicine 01/25/14 [facility] 06/13/16 documented as of this encounter
--- OUTSIDE RECORDS SUMMARY | 2025-04-18 08:59 | XMS_ITS | Encounter Summary ---
Author Organization [employer] Address [address] [place] [address] 7t [place] [address] Care Team Providers Care Expansion Joint Builder Name Role Phone Agustin Marrero MD Primary Care Provide r Reason for Visit * Reason Comments Med Refill Encounter Details Date Type Department Care Team ([facility] st Contact Info) Description 10/20/2023 Refill [facility] CHC MED & PEDS [address] [place], [place] [phone] Agustin Marrero MD [address] [place] [address] Chronic midline low back pain without sciatica [...] Description 05/31/2025 8:00 AM EST Office Visit [facility] ADULT DENTAL [address] [place] [address] Catherine Antonio [address] [place] [address] 07/14/2025 10:30 AM EDT Clinical Support [facility] MEDICINE [address] [place] [address] Shwetha Collado RN [address] [place] [address] documented as of this encounter Visit Diagnoses Diagnosis Chronic midline low back pain without sciatica documented in this encounter Additional Health Concerns Assessment Noted Time PHQ-9 Depression Total Score: 5 06/16/19 24 9:35 AM EST documented as of this encounter Care Teams Expansion Joint Builder Relationship Specialty Start Date End Date Agustin Marrero MD [address] [place] [address] PCP - General Internal Medicine 01/25/14 [facility] 06/13/16 documented as of this encounter
--- OUTSIDE RECORDS SUMMARY | 2025-04-18 08:59 | XMS_ITS | Encounter Summary ---
Author Organization [employer] Address [address] [place] [address] 7 [place] [address] Care Team Providers Care Clinical Business Manager Name Role Phone Agustin Marrero MD Primary Care Provide r Reason for Visit * Reason Onset Date Comments Med Refill 03/01/2024 Encounter Details Date Type Department Care Team ([facility] st Contact Info) Description 03/01/2024 Telephone [facility] MEDICINE [address] [place], [place] [phone] Agustin Marrero MD [address] [place], [place] [phone] Med Refill Social History Tobacco Use Types [...] is your housing situation today? I have fya gonsalez 06/16/[address] you [...] 2:22 PM EST Medication was sent to [facility]#[id number] on 02/29/24. * Telephone Encounter - Manjeet Mclaughlin - 03/01/2024 2:17 PM EST TC from pt requesting medication refill. Medications needing refill : 1- zolpidem (Ambien) 10 MG tablet To be sent to: [facility]/pharmacy #[id number] documented in this encounter Plan of Treatment Upcoming Encounters Date Type Department Care Team (Late st Contact Info) Description 05/31/2025 8:00 AM EST Office Visit [facility] ADULT DENTAL [address] [place], [place] [phone] Catherine Antonio [address] [place] [address] 07/14/2025 10:30 AM EDT Clinical Support [facility] MEDICINE [address] [place] [address] Shwetha Collado RN [address] [place] [address] documented as of this encounter Visit Diagnoses Not on filedocumented in this encounter Additional Health Concerns Assessment Noted Time PHQ-9 Depression Total Score: 0 12/03/19 10:31 AM EDT documented as of this encounter Care Teams Clinical Business Manager Relationship Specialty Start Date End Date Agustin Marrero MD [address] [place] [address] PCP - General Internal Medicine 01/25/14 [facility] 06/13/16 documented as of this encounter
--- OUTSIDE RECORDS SUMMARY | 2025-04-18 08:59 | XMS_ITS | Encounter Summary ---
Author Organization [facility] Address [address] [place] [address] Care Team Providers Care Camp Attendant Name Role Phone Agustin Mix Primary Care Provider + Encounter Details Date Type Department Care Team (Late st Contact Info) Description 07/23/2023 Orders Only [facility] Interventional Radiology [address] [place] [address] Pawel Sanchez MD [address] [place] [address] Social History Tobacco Use Types Packs/Day Years [...] Info) Description 10/02/2025 12:00 PM EDT Follow-Up [facility] Liver Transplant Services [address] [place] [address] Dylan Phelps MD [address] [place] [address] documented as of this encounter Visit Diagnoses Not on filedocumented in this encounter Care Teams Camp Attendant Relationship Specialty Start Date End Date Agustin Mix [address] [place] [address] PCP - General Internal Medicine 04/15/17 documented as of this encounter
--- OUTSIDE RECORDS SUMMARY | 2025-04-18 08:59 | XMS_ITS | Encounter Summary ---
Author Organization [facility] Address [address] [place] [address] Care Team Providers Care Slabber Name Role Phone Agustin Mix Primary Care Provider + Encounter Details Date Type Department Care Team (Late st Contact Info) Description 01/01/2021 Orders Only [facility] Nuclear Medicine [address] [place] [address] Sreedhar Sotelo MD [address] [place], [place] [phone] Social History Tobacco Use Types Packs/Day Years [...] Info) Description 10/02/2025 12:00 PM EDT Follow-Up [facility] Liver Transplant Services [address] [place], [place] [phone] Dylan Phelps MD [address] [place] [address] documented as of this encounter Visit Diagnoses Not on filedocumented in this encounter Care Teams Slabber Relationship Specialty Start Date End Date Agustin Mix [address] [place] [address] PCP - General Internal Medicine 04/15/17 documented as of this encounter
--- OUTSIDE RECORDS SUMMARY | 2025-04-18 08:59 | XMS_ITS | Encounter Summary ---
Author Organization [employer] Address [address] [place] [address] 7t [place] [address] Care Team Providers Care Firer Electric Locomotive Name Role Phone Agustin Marrero MD Primary Care Provide r Reason for Visit * Reason Comments Med Refill Encounter Details Date Type Department Care Team ([facility] st Contact Info) Description 11/02/2023 Refill [facility] MEDICINE [address] [place], [place] [phone] Lela Wu MD [address] [place], [place] [phone] Primary insomnia Social History Tobacco Use Types [...] Description 05/31/2025 8:00 AM EST Office Visit [facility] ADULT DENTAL [address] [place] [address] Catherine Antonio [address] [place] [address] 07/14/2025 10:30 AM EDT Clinical Support [facility] MEDICINE [address] [place] [address] Shwetha Collado RN [address] [place] [address] documented as of this encounter Visit Diagnoses Diagnosis Primary insomnia Persistent disorder of initiating or maintaining sleep documented in this encounter Additional Health Concerns Assessment Noted Time PHQ-9 Depression Total Score: 5 06/16/19 24 9:35 AM EST documented as of this encounter Care Teams Firer Electric Locomotive Relationship Specialty Start Date End Date Agustin Marrero MD [address] [place] [address] PCP - General Internal Medicine 01/25/14 [facility] 06/13/16 documented as of this encounter
--- OUTSIDE RECORDS SUMMARY | 2025-04-18 08:59 | XMS_ITS | Patient Health Record ---
Author Organization [facility] [place] Address [address] [facility] [place] [address] Care Team Providers Care Timber Management Technician Name Role Phone Nura Connelly MD, Agustin Primary Care Provide r Unavailable Devan Johnson Unavailable [phone] Sun Jj Unavailable [phone] Yovanny Long Unavailable [phone] Allergies No Known Allergies Results Component Value Reference Range Notes HEMOGLOBIN A1C (GLYCOHEMOGLO BIN) Reviewed date:11/04/2024 11:47:55 AM Interpretation: Performing Lab: Notes/Report: HEMOGLOBIN A1C % (HH) 7.3 HEMOGLOBIN A1C (GLYCOHEMOGLO BIN) Reviewed date:03/23/2025 10:56:02 AM Interpretation: Performing Lab: Notes/Report: HEMOGLOBIN A1C % (HH) 7.2 Reason For Referral No Information Medications Medication SIG (Take, Route, Frequency, Duration) Notes Start Date End Date Status Magnesium 400 MG as directed Orally Active Multivitamin - 1 tablet Orally Once a day Active Ciclopirox Olamine 0.77 % 1 application to affected area Externally Twice a day to effected areas on feet; Duration: 30 days 01/12/2025 Active Extra Depth Orthopedic Shoes (1 Pair) with Customized Heat Molded Multidensity Innersoles (3 Pair) Dx: NIDDM/Polyneuropathy (E11.42), Hammertoe Foot Deformity (M20.41,M20.42), Preulcerative Skin Lesion(s) (L85.1); Duration: 365 days 11/03/2024 Active Ketoconazole 2 % 1 application Apply a thin layer to externally to feet, even between toes Twice a day; Duration: 30 days Active Ammonium Lactate 12 % 1 application Exte rnally to affected areas of dry skin to feet except for between the toes Twice a day; Duration: 30 days Active Losartan Potassium 25 MG 1 tablet Orally Once a day Active Vitamin D3 261006 UNIT/GM as directed Active Tacrolimus 1 MG as directed Orally Active Omeprazole 20 MG 1 capsule 1/2 to 1 h our before morning meal Orally Once a day Active Immunizations Vaccine Route Administration Date Status Comme nts Influenza Unknown 02/04/2024 Administered Influenza Unknown 01/18/2025 Administered Social History Tobacco Use: Social History [...] Problem Acquired hammer toe of right foot (8109126270002988 ) Other hammer toe(s) (acquired), right foot (M20.41) Active confirmed Problem Acquired hammer toe of left foot (8560548481625669 ) Other hammer toe(s) (acquired), left foot (M20.42) Active confirmed Problem Polyneuropathy due to type 2 diabetes mellitus (061052152) Type 2 diabetes mellitus with diabetic polyneuropathy (E11.42) Active confirmed Vital Signs Heart Rate 68 /min 06/17/2024 Blood pressure diastolic 81 mm Hg 03/23/2025 Height 5ft 7in in 03/23/2025 Blood pressure systolic 134 mm Hg 03/23/2025 Weight 205 lbs 03/23/2025 BMI 32.1 kg/m2 03/23/2025 Procedures Procedure Date Ordered Date Performed Result Body Sit e 39066-JXSRVQN NAIL, 6 OR MORE 06/17/2024 N/A 48823-ZZKJHRE NAIL, 6 OR MORE 03/23/2025 N/A 40912-UESI SKIN LESIONS, OVER 4 03/23/2025 N/A Encounters Encounter Location Date Provider Diagnosis [facility] [address] 06/17/2024 Yovanny Long Onychomycosis B35.1 and Type 2 diabetes mellitus with other diabetic neurological complication E11.[address] [address] 11/03/2024 Sun Jj Type 2 diabetes mellitus with diabetic polyneuropathy E11.42 ; Other hammer toe(s) (acquired), right foot M20.41 ; Tinea unguium B35.1 ; Tinea pedis of both feet B35.3 and Other hammer toe(s) (acquired), left foot M20.[address] [address] 01/12/2025 Sun Jj Other hammer toe(s) (acquired), right foot M20.41 ; Tinea pedis of both feet B35.3 ; Type 2 diabetes mellitus with diabetic polyneuropathy E11.42 ; Tinea unguium B35.1 and Other hammer toe(s) (acquired), left foot M20.[address] [address] 03/23/2025 Devan Johnson Type 2 diabetes mellitus with diabetic polyneuropathy E11.42 and Tinea unguium B35.1 [facility] [address] 05/26/2024 Yovanny Long [address] [address] 11/03/2024 Sun Jj Assessments Encounter Date Diagnosis [...] pedis of both feet (ICD-10 - B35.3) 03/23/2025 Type 2 diabetes mellitus with diabetic polyneuropathy (ICD-10 - E11.42) 03/23/2025 Tinea unguium (ICD-10 - B35.1) 01/12/2025 Type 2 diabetes mellitus with diabetic [...] M20.42) 05/26/2024 Other 06/17/2024 Other Application of [place]-Soothe skin lotion to his feet Plan Of Treatment Pending Test Test Name Order Date [id number] NAIL, 6 OR MORE 03/10/2024 88210-OHJFCGF NAIL, 6 OR MORE 06/17/2024 36322-ORVADTJ NAIL, 6 OR MORE 03/23/2025 10765-LBPW SKIN LESIONS, OVER 4 03/23/20 Next Appt Details Provider Name:Devan Johnson, 06/21/2025 10:00:00 AM, [address] [facility], [place], [address], Insurance Providers Payer Name Payer Address Payer Phone Subscriber Number Group Number Insured Name Patient Relationship to Insured Coverage Start Date Coverage End Date [facility] [employer] Claims [address] [place] [id number] Edward Jon Self - patient is the insured Medical (General) History Medical History History ICD Code Back,Hip,and Knee pain Broken bones Cataracts covid-19 Dementia Depression Diabetic Gall bladder problems Hiatal hernia High Blood Pressure Liver disease Psychiatric disorder Surgical History Surgery Date(Month/Year) back surgery 02/2024
--- OUTSIDE RECORDS SUMMARY | 2025-04-18 08:59 | XMS_ITS | Clinical Summary ---
Author Organization [employer] Address [address] [place] [address] Care Team Providers Care Comic Book Designer Name Role Phone Unavailable Primary Care Provider Unavailabl e Social History Tobacco Use Types Packs/Day Years Used Date Smoking Tobacco: Never Assessed Sex and Gender Information Value Date Recorded Sex Assigned at Not on file Legal Sex Male 3:45 PM EDT Gender Identity Not on file Sexual Orientation Not on file Plan of Treatment Not on file
--- OUTSIDE RECORDS SUMMARY | 2025-04-18 08:59 | XMS_ITS | Encounter Summary ---
Author Organization [employer] Address [address] [place] [address] 7t [place] [address] Care Team Providers Care Beef Trimmer Name Role Phone Agustin Marrero MD Primary Care Provide r Reason for Visit * Reason Comments Med Refill Encounter Details Date Type Department Care Team ([facility] st Contact Info) Description 10/28/2023 Refill [facility] MEDICINE [address] [place], [place] [phone] Lela Wu MD [address] [place], [place] [phone] Primary insomnia Social History Tobacco Use Types [...] Description 05/31/2025 8:00 AM EST Office Visit [facility] ADULT DENTAL [address] [place] [address] Catherine Antonio [address] [place] [address] 07/14/2025 10:30 AM EDT Clinical Support [facility] MEDICINE [address] [place] [address] Shwetha Collado RN [address] [place] [address] documented as of this encounter Visit Diagnoses Diagnosis Primary insomnia Persistent disorder of initiating or maintaining sleep documented in this encounter Additional Health Concerns Assessment Noted Time PHQ-9 Depression Total Score: 5 06/16/19 24 9:35 AM EST documented as of this encounter Care Teams Beef Trimmer Relationship Specialty Start Date End Date Agustin Marrero MD [address] [place] [address] PCP - General Internal Medicine 01/25/14 [facility] 06/13/16 documented as of this encounter
--- OUTSIDE RECORDS SUMMARY | 2025-04-18 08:59 | XMS_ITS | Encounter Summary ---
Author Organization [facility] Address [address] [place] [address] Care Team Providers Care Electric Frying Pan Repairer Name Role Phone Agustin Mix Primary Care Provider + Encounter Details Date Type Department Care Team (Late st Contact Info) Description 01/13/2020 Orders Only [facility] 2 Rad Act 1 [address] [place] [address] Pawel Sanchez MD [address] [place] [address] Social History Tobacco Use Types Packs/Day Years [...] Info) Description 10/02/2025 12:00 PM EDT Follow-Up [facility] Liver Transplant Services [address] [place] [address] Dylan Phelps MD [address] [place] [address] documented as of this encounter Visit Diagnoses Not on filedocumented in this encounter Additional Health Concerns Infection Onset Date Last Indicated Resolved Time COVID-19 - Suspected infection 03/05/2020 03/17/2020 03/17/2020 7:55 PM EST COVID-19 - Confirmed infection 05/01/2020 05/07/2020 06/01/2020 5:06 PM EST COVID-19 - Suspected infection 05/10/2020 05/10/2020 05/24/2020 10:34 PM EST documented as of this encounter Care Teams Electric Frying Pan Repairer Relationship Specialty Start Date End Date Agustin Mix [address] [place] [address] PCP - General Internal Medicine 04/15/17 documented as of this encounter
--- OUTSIDE RECORDS SUMMARY | 2025-04-18 08:59 | XMS_ITS | Encounter Summary ---
Author Organization [employer] Address [address] [place] [address] 7 [place] [address] Care Team Providers Care Art Objects Supervisor Name Role Phone Agustin Marrero MD Primary Care Provide r Reason for Visit * Reason Onset Date Comments Med Refill 10/04/2024 Encounter Details Date Type Department Care Team ([facility] st Contact Info) Description 10/04/2024 Telephone [facility] MEDICINE [address] [place], [place] [phone] Agustin Marrero MD [address] [place], [place] [phone] Med Refill Social History Tobacco Use Types [...] be sent to: [facility]/pharmacy #[id number] [place] [address] documented in this encounter Plan of Treatment Upcoming Encounters Date Type Department Care Team (Late st Contact Info) Description 05/31/2025 8:00 AM EST Office Visit [facility] ADULT DENTAL [address] [place] [address] Catherine Antonio [address] [place] [address] 07/14/2025 10:30 AM EDT Clinical Support [facility] MEDICINE [address] [place] [address] Shwetha Collado, RN [address] [place] [address] documented as of this encounter Visit Diagnoses Not on filedocumented in this encounter Additional Health Concerns Assessment Noted Time PHQ-9 Depression Total Score: 0 12/03/19 24 10:31 AM EDT documented as of this encounter Care Teams Art Objects Supervisor Relationship Specialty Start Date End Date Agustin Marrero MD [address] [place] [address] PCP - General Internal Medicine 01/25/14 [facility] 06/13/16 documented as of this encounter
--- OUTSIDE RECORDS SUMMARY | 2025-04-18 08:59 | XMS_ITS | Encounter Summary ---
Author Organization [employer] Address [address] [place] [address] 7 [place] [address] Care Team Providers Care Shoemaker Custom Name Role Phone Agustin Marrero MD Primary Care Provide r Reason for Visit * Reason Onset Date Comments Med Refill 09/13/2024 Encounter Details Date Type Department Care Team ([facility] st Contact Info) Description 09/13/2024 Telephone [facility] MEDICINE [address] [place], [place] [phone] Agustin Marrero MD [address] [place], [place] [phone] Med Refill Social History Tobacco Use Types [...] 300 MG capsule To be sent to: [facility]/pharmacy #[id number] [place] [address] documented in this encounter Plan of Treatment Upcoming Encounters Date Type Department Care Team (Late st Contact Info) Description 05/31/2025 8:00 AM EST Office Visit [facility] ADULT DENTAL [address] [place] [address] Catherine Antonio [address] [place] [address] 07/14/2025 10:30 AM EDT Clinical Support [facility] MEDICINE [address] [place] [address] Shwetha Collado, RN [address] [place] [address] documented as of this encounter Visit Diagnoses Not on filedocumented in this encounter Additional Health Concerns Assessment Noted Time PHQ-9 Depression Total Score: 0 12/03/19 24 10:31 AM EDT documented as of this encounter Care Teams Shoemaker Custom Relationship Specialty Start Date End Date Agustin Marrero MD [address] [place] [address] PCP - General Internal Medicine 01/25/14 [facility] 06/13/16 documented as of this encounter
--- OUTSIDE RECORDS SUMMARY | 2025-04-18 08:59 | XMS_ITS | Encounter Summary ---
Author Organization [employer] Address [address] [place] [address] 7t [place] [address] Care Team Providers Care Silk Soaker Name Role Phone Agustin Marrero MD Primary Care Provide r Encounter Details Date Type Department Care Team ([facility] st Contact Info) Description 12/24/2023 Telephone [facility] MEDICINE [address] [place], [place] [phone] Agustin Marrero MD [address] [place], [place] [phone] Social History Tobacco Use Types Packs/Day Years [...] Description 05/31/2025 8:00 AM EST Office Visit [facility] ADULT DENTAL [address] [place] [address] Paco, Catherine [address] [place] [address] 07/14/2025 10:30 AM EDT Clinical Support [facility] MEDICINE [address] [place] [address] Shwetha Collado RN [address] [place] [address] documented as of this encounter Visit Diagnoses Not on filedocumented in this encounter Additional Health Concerns Assessment Noted Time PHQ-9 Depression Total Score: 0 12/03/19 10:31 AM EDT documented as of this encounter Care Teams Silk Soaker Relationship Specialty Start Date End Date Agustin Marrero MD [address] [place] [address] PCP - General Internal Medicine 01/25/14 [facility] 06/13/16 documented as of this encounter
--- OUTSIDE RECORDS SUMMARY | 2025-04-18 08:59 | XMS_ITS ---
Author Organization [facility] Address [address] [place] [address] Care Team Providers Care Decorating Supervisor Name Role Phone Agustin Mix Primary Care Provider + Transplant Episode Liver Recipient [facility] [place] Organ Received: Liver Transplanted on 08/09/2019 Marked as Active Follow-up on 08/09/2019 Liver CoordinatorErika Bonds RN Phone: N/A Fax: N/A Email: N/A Platinum Organ Diagnosis Organ Primary Contributory Liver Alcoholic [...] Coordinator N/A N/A N/A Dylan Phelps MD Regional Administrative Assistant [phone] [email or web address] Sarai Diaz Referring Physician [phone] N/A Events Post-Transplant Pre-Transplant Admitted: 08/09/2019 Referred: 09/08/2016 Transplanted: 08/09/2019 Evaluation began: 7 Discharged: 08/25/2019 Committee: 10/24/2016 Center waitlisted: 7 Appointments (03/19/2025 - 05/19/2025) When With Visit Type Description 03/27/2025 Transplant - Colton Phelps Follow Up Laejustine c's cirrhosis (Primary Dx); Encounter for immunosuppression management after liver transplant ; Low magnesium level
--- OUTSIDE RECORDS SUMMARY | 2025-04-18 09:00 | XMS_ITS | Encounter Summary ---
Author Organization [employer] Address [address] [place] [address] [address] [address] Care Team Providers Care Format Proofreader Name Role Phone Agustin Marrero MD Primary Care Provide r Reason for Visit * Reason Onset Date Comments Med Refill 12/15/2022 Encounter Details Date Type Department Care Team ([facility] st Contact Info) Description 12/15/2022 Telephone [facility] [address] [place], [place] [phone] Agustin Marrero MD [address] [place] [address] Med Refill Social History Tobacco Use Types [...] Description 05/31/2025 8:00 AM EST Office Visit [facility] [address] [place] [address] Paco, Catherine [address] [place] [address] 07/14/2025 10:30 AM EDT Clinical Support [facility] [address] [place] [phone] Shwetha Collado, RN [address] [place] [address] documented as of this encounter Visit Diagnoses Not on filedocumented in this encounter Care Teams Format Proofreader Relationship Specialty Start Date End Date Agustin Marrero MD [address] [place] [phone] PCP - General Internal Medicine 01/25/14 [facility] 06/13/16 documented as of this encounter
--- OUTSIDE RECORDS SUMMARY | 2025-04-18 09:00 | XMS_ITS | Clinical Summary ---
Author Organization [facility] Address [address] [place] [address] Care Team Providers Care Claims Service Representative Name Role Phone Agustin Mix Primary Care [...] daily 01/25/20 22 Active FreeStyle Arvin 2 [place] misc 01/17/20 22 Active BD Insulin Syringe [...] HOURS OR SEG N LO INDICADO Active Daily-Stacy, with folic acid, tablet SMARTSI [...] total) in the evening. 02/23/20 25 Active magnesium oxide (MAG-OX) 400 mg (241.3 mg mag) tabletIndicati ons:Low magnesium level TAKE 2 TABLETS (800 MG TOTAL) BY MOUTH 2 TIMES A DAY. 360 tablet 5 03/29/20 25 Active magnesium oxide (MAG-OX) 400 mg (241.3 mg mag) tabletIndicati ons:Low magnesium level TAKE 2 TABLETS (800 MG TOTAL) BY MOUTH 2 TIMES A DAY. 360 tablet 5 01/22/20 24 025 Discontinued Active Problems Problem Noted Date [...] in March 2020. He was seen by painting contractor at [facility] who [...] presented as a direct admit from Dr. Pehlps for elevated AST (447), ALT (274), and [...] for liver biopsy, since LFT pattern not solar manufacturer's representative of rejection. Additionally, Liver ultrasound showed [...] of recurrent ESBL bacteremia. Initially presented to [facility] for fever, LE swelling and pain. Unclear source. BCX grew esbl E.Coli 1 out of 2 sets from [facility], susceptible to Ertapenem. Initially he was [...] of recurrent ESBL bacteremia. Initially presented to [facility] for fever, LE swelling and pain. Unclear source. BCX grew esbl E.Coli 1 out of 2 sets from [facility], susceptible to Ertapenem. Initially he was [...] recurrent ESBL bacteremia. Patient initially presented to [facility] for fever and LE swelling and pain. Unclear source. BCX grew esbl E.Coli 1 out of 2 sets from [facility], susceptible to Ertapenem. Initially he was on zosyn, and was switched to ertapenem. On previous admission, MRCP on 12/20 or Abdominal US on 01/16 showed no biliary dilatation. - continue ertapenem (10 day course to be completed on 02/09 per [facility] note) - repeat BCX - CT AP w/ contrast - consult transplant ID in the AM - f/u CBC and CMP Assessment & Plan (02/05/2019 5:40 AM EDT): Patient has a recurrent history of recurrent ESBL bacteremia. Patient initially presented to [facility] for fever and LE swelling and pain. Unclear source. BCX grew esbl E.Coli 1 out of 2 sets from [facility], susceptible to Ertapenem. Initially he was on zosyn, and was switched to ertapenem. On previous admission, MRCP on 12/20 or Abdominal US on 01/16 showed no biliary dilatation. - continue ertapenem (10 day course to be completed on 02/09 per [facility] note) - repeat BCX - CT AP w/ contrast Abscess of leg, right 02/05/20192018 Assessment & Plan (02/22/2019 3:37 PM EST): Patient has worsened leg edema R>L w/ rt side 4+ pitting edema. At [facility], US was negative for DVT. CT [...] w/ rt side 4+ pitting edema. At [facility], US was negative for DVT. CT [...] Right side has 4+ pitting edema. At [facility], US was obtained and ruled out [...] was found. OSH GI recommended transfer to [facility] as there was a [...] pathology. -BCx grew GNR -transplant ID consulted -[facility] was called for speciation, it will [...] concerning for pathology. -Transplant ID is following -[facility] will fax culture data, commented [...] 8:59 AM EST): Hyponatremic to 132 at [facility]. Na 128, constant through hospitalization. - daily BMP Assessment & Plan (02/09/2019 11:02 AM EDT): Hyponatremic to 132 at [facility]. Na 128, constant through hospitalization. - daily BMP Assessment & Plan (02/05/2019 5:51 AM EDT): Hyponatremic to 132 at [facility]. - repeat BMP in am and redose diuretics Assessment & Plan (02/05/2019 5:47 AM EDT): Hyponatremic to 132 at [facility]. - repeat BMP in am and [...] Presented again on day of admission to [facility] with worsening shortness of breath where a CT chest PE protocol was performed which showed no evidence of intraluminal filling defect though did make note of large left- sided pleural effusion with associated complete left lower lobe collapse as well as partial left upper lobe collapse. Due to recurrent pleural effusion and likely need for repeat thoracentesis patient was transferred [facility]. On arrival patient without any increased work of breathing and saturating well on room air. Exam reveals absent breath sounds in the left middle and lower lung perez with increased dullness to percussion. 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 -We will have CT scan from [facility] uploaded into our system for [...] resulting transudative fluid, rapidly reaccumulating, transferred to [facility] for TIPS intervention. Resumed [...] procedure in 2018. Most recent hospitalization at [facility] was in January 2019 when he was [...] to hyperkalemia. Of note, reached out to [facility] to double check if paracentesis [...] from TIPS procedure and was sent to [facility] for further evaluation. Plan [...] 20mg daily and spironolactone 50mg daily. At [facility], patient received IV lasix 40mg daily. [...] 20mg daily and spironolactone 50mg daily. At [facility], patient received IV lasix 40mg daily. [...] Encounters Date Type Department Care Team Description 03/29/2025 Refill [facility] [address] [place] [address] Dylan Phelps MD Low magnesium level 03/27/2025 10:30 AM EST Follow-Up [facility] [address] [place] [address] Dylan Phelps MD Laennec's cirrhosis (Primary Dx); Encounter for immunosuppression management after liver transplant ; Low magnesium level 03/21/2025 Results Follow-Up [facility] Trans[facility] [address] [place] [address] Erika Bonds RN 03/21/2025 Abstract [facility] [address] [place] [address] Dylan Phelps MD 03/20/2025 Abstract [facility] [address] [place] [address] Dylan Phelps MD 02/22/2025 Abstract [facility] [address] [place] [address] Dylan Phelps MD 02/21/2025 Results Follow-Up [facility] [address] [place] [address] Erika Bonds RN 02/21/2025 Abstract [facility] [address] [place] [address] Dylan Phelps MD 02/07/2025 Telephone [facility] [address] [place] [address] Erika Bonds RN 01/26/2025 Abstract [facility] [address] [place] [address] Dylan Phelps MD 01/20/2025 Results Follow-Up [facility] [address] [place] [address] Erika Bonds RN 01/19/2025 Abstract [facility] [address] [place] [address] Dylan Phelps MD from Last 3 Months [...] Sign Reading Time Taken Comments Blood Pressure 144/86 03/27/2025 10:01 AM EST Pulse 60 03/27/2025 10:01 AM EST Temperature 37 C (98.6 F) 08/01/2024 10:18 AM EDT Respiratory Rate 18 03/27/2025 10:01 AM EST Oxygen Saturation 98% 03/27/2025 10:01 AM EST Inhaled Oxygen Concentration - - Weight 89 kg (196 lb 3.4 oz) 03/27/2025 10:01 AM EST Height 170.2 cm (5' 7 ) 11/14/2022 2:00 PM EDT Body Mass Index 30.73 11/14/2022 2:00 PM EDT Plan of Treatment Upcoming Encounters Date Type Department Care Team (Late st Contact Info) Description 10/02/2025 12:00 PM EDT Follow-Up [facility] [address] [place] [address] [phone] Dylan Phelps MD [address] [place] [address] [phone] Health Maintenance Due Date Last Done Comments [...] Drivers of Health Layla ual Screening 04/20/2024 CT Lung Cancer Screening (Baseline) 11/29/2024 11/30/2023, 11/05/2023, 05/06/2022, Additional history exists COVID-19 Vaccine (2024-05 6 season) 2024 05/06/2022, 11/25/2021, 03/25/2021, Additional history exists Hemoglobin A1C 08/23/2025 02/23/2025, 06/18, 12/03/2023, Additional history exists Basic Metabolic Panel 03/15/2026 03/15/2025 , 09/12/2023, 11/19/2022, Additional history exists Hepatitis B Vaccines Completed [...] 05/06/2022, Additional history exists Influenza Vaccine Completed 12/14/2024, , 02/12/2023, Additional history exists Medical Devices Implanted Type Area Investment Professional Device Identifier Shelf Expiration Date Model / Serial / Lot Shunt Transjugular Intrahepatic Portosystemic Tips Endoprosthesis [id number] Viatorr - [id number] Implanted:Qty: 1 on 07/28/2017 at [facility] Implant W L GORE 12/26/2019 [id number] / / Mesh Hernia With Strap Large Ventralex - [id number] Implanted:Qty: 1 on 03/20/2020 by Fernando Fine MD PhD at [facility] Mesh Right: Abdomen [employer] 01/15/2021 [id number] / / [id number] Stent Biliary Rx Fully Covered Self Expanding Metallic Rmv With Permalume Covering 8.5fr [id number] Wallflex - [id number] - [id number] Implanted:Qty: 1 on 11/21/2022 by Dunia Osorio MD at [facility] Stent N/A: Bile Duct [employer] 08/21/2024 [id number] / [id number] / Explanted Type Area Investment Professional Device Identifier Shelf Expiration Date Model / [...] Procedure Name Priority Date/Time Associated Diagnosis Comments COMPREHENSIVE METABOLIC PANEL, OUTSIDE LAB Routine 03/15/2025 7:24 AM EST MAGNESIUM, OUTSIDE LAB Routine 03/15/2025 7:24 AM EST CBC, OUTSIDE LAB Routine 03/15/2025 7:24 AM EST TACROLIMUS LEVEL, OUTSIDE LAB Routine 03/15/2025 7:24 AM EST AFP TUMOR MARKER, OUTSIDE LAB Routine 03/15/2025 7:24 AM EST AFP TUMOR MARKER, OUTSIDE LAB Routine 02/17/2025 6:43 AM EDT LIVER POST EXTERNAL PANEL Routine 02/17/2025 6:43 AM EDT AFP TUMOR MARKER, OUTSIDE LAB Routine 01/18/2025 7:10 AM EDT LIVER POST EXTERNAL PANEL Routine 01/18/2025 7:[address] CHEST W CONTRAST Routine 11/05/2023 4 :35 PM EDT History of hepatocellular carcinoma History of liver transplant MICROALBUMIN, RANDOM URINE WITH CREATININE Routine 05/17/2021 [...] not be sharing negative HIV tests. * CBC, Outside Lab (03/15/2025 7:24 AM EST) WBC 5.0 10*3/uL [facility] Hemoglobin 14.2 g/dL [facility] Hematocrit 40.1 % [facility] Platelets 145 10*3/uL [facility] Blood Structure of peripheral vein / Unknown 03/15/2025 7:24 AM EST us Dylan Phelps MD LAB BLOOD ORDERABLES Final Re sult [facility] [address] [place] [address] * Comprehensive Metabolic Panel, Outside Lab (03/15/2025 7:24 AM EST) Sodium 139 mmol/L [facility] Potassium 4.4 [facility] Chloride 109 [facility] Carbon Dioxide 24 [facility] Glucose 150 [facility] BUN 19 mg/dL [facility] Creatinine 1.16 mg/dL [facility] Calcium 9.1 mg/dL [facility] Total Protein 6.9 g/dL [facility] Albumin 4.5 g/dL [facility] Bilirubin, Total 0.5 mg/dL [facility] Alkaline Phosphatase 128 U/L [facility] AST 28 U/L [facility] ALT 37 U/L [facility] Blood Structure of peripheral vein / Unknown 03/15/2025 7:24 AM EST Dylan Phelps MD LAB BLOOD ORDERABLES Edited R esult - Final Performing Organization Address [facility] Co de Phone Number [facility] [address] [place] [phone] * AFP Tumor Marker, Outside Lab (03/15/2025 7:24 AM EST) Only the most recent of3 resultswithin the time period is included. Alpha Fetoprotein, Tumor Marker 1.3 [facility] Blood Structure of peripheral vein / Unknown 03/15/2025 7:24 AM EST Dylan Phelps MD LAB BLOOD ORDERABLES Final Re sult Performing Organization Address [facility] Co de Phone Number [facility] [address] [place] [address] * Tacrolimus Level, Outside Lab (03/15/2025 7:24 AM EST) Tacrolimus, Highly Sensitive 4.9 [facility] Blood Structure of peripheral vein / Unknown 03/15/2025 7:24 AM EST Dylan Phelps MD LAB BLOOD ORDERABLES Final Re sult Performing Organization Address [facility] Co de Phone Number [facility] [address] [place] [address] * Magnesium, Outside Lab (03/15/2025 7:24 AM EST) Magnesium 1.80 mg/dL [facility] Blood Structure of peripheral vein / Unknown 03/15/2025 7:24 AM EST Dylan Phelps MD LAB BLOOD ORDERABLES Final Re sult Performing Organization Address [facility]/ZIP Co de Phone Number [facility] [address] [place] [address] * LIVER POST EXTERNAL PANEL (02/17/2025 6:43 AM EDT) Only the most recent of2 resultswithin the time period is included. Tacrolimus, Highly Sensitive 3.3 [facility] Sodium 139 mmol/L [facility] Potassium 4.4 [facility] Chloride 105 [facility] Carbon Dioxide 28 [facility] Glucose 120 [facility] BUN 18 mg/dL [facility] Creatinine 1.02 mg/dL [facility] Calcium 9.4 mg/dL [facility] Total Protein 7.1 g/dL [facility] Albumin 4.7 g/dL [facility] Bilirubin, Total 0.6 mg/dL [facility] Alkaline Phosphatase 123 U/L [facility] AST 41 U/L [facility] ALT 50 U/L [facility] Magnesium 1.80 mg/dL [facility] WBC 4.8 10*3/uL [facility] Hgb 14.2 [facility] Hematocrit 40.8 % [facility] Platelets 128 10*3/uL [facility] 02/17/2025 6:43 AM EDT Dylan Phelps MD LAB BLOOD ORDERABLES Final Re sult Performing Organization Address City/[facility]/ZIP Co de Phone Number [facility] [address] [place] [address] * CT Chest W Contrast (11/05/2023 4:35 [...] to obtain the completed interpretation. Workstation ID: [id number] Up-to-date CT equipment and radiation dose reduction techniques were employed. CTDIvol: 3.1 - 23.9 mGy. DLP: 2643 mGy-cm. The following accession numbers are related to this dose report [id number]: [id number] Narrative 11/19/2023 3:36 PM EDT Indication: 58 [...] the spine. Bilateral gynecomastia. Resulting Agency Comment [id number] Procedure Note Natasha Michaud MD - 11/19/2023 [...] possible to obtain thecompleted interpretation. Workstation ID: [id number] Up-to-date CT equipment and radiation dose reduction techniques wereemployed. CTDIvol: 3.1 - 23.9 mGy. DLP: 2643 mGy-cm. The followingaccession numbers are related to this dose report [id number]: [id number] Dylan Phelps MD IMG CT PROCEDURES Final Resul t * Microalbumin, Random Urine with Creatinine (05/17/2021 11:35 AM EST) Microalbumin, Urine 1.1 mg/dL 05/17/2021 12:34 PM EST [facility] Creatinine, Urine 97 22 - 328 mg/dL 05/17/2021 12:34 PM EST [facility] Microalb/Creat Ratio, Random Urine 11.3 <30.0 mcg/mgCr 05/17/2021 12:34 PM EST [facility] Comment: Microalbumin Reference Range: Normal <30 mcg/mg Creatinine Microalbuminuria 30-300 mcg/mg Creatinine Clinical Albuminuria >300 mcg/mg Creatinine Reference: ADA Guideline. Diabetes Care. 2004;27 (suppl 1) Urine Voided urine specimen / Unknown Non-Blood Collection / Unknown 05/17/2021 11:35 AM EST 05/17/2021 12:01 PM EST Angelita Villa MD LAB URINE ORDERABLES Final Resul t [facility] [address] [place] [address], * (ABNORMAL) Hemoglobin A1c (05/17/2021 11:31 AM EST) Hemoglobin A1C 7.7(H) <5.7 % of total Hgb 05/18/2021 2:37 AM EST [facility] Comment: For someone without known diabetes, a [...] (MG/DL) 174 mg/dL 05/18/2021 2:37 AM EST [facility] eAG (MMOL/L) 9.7 mmol/L 05/18/2021 2:37 AM EST [facility] Blood Structure of peripheral vein / Unknown Venipuncture / Unknown 05/17/2021 11:31 AM EST 05/17/2021 11:40 AM EST Narrative [facility] - 05/18/2021 2:37 AM EST [facility] Received Date: us Angelita Villa MD LAB BLOOD ORDERABLES Final Resul t [facility] [address] [facility] [address], [place] [address], [facility] [address] [facility] [address], [place] [address], * CT Abdomen Pelvis with Contrast (05/05/2020 5:27 PM EST) Anatomical Region Laterality Modality Body Computed Tomogra phy 05/06/2020 8:40 AM EST Impressions 05/06/2020 8:50 AM EST Small fluid pocket between the incision and transverse colon which may represent developing adhesions. Recommend correlation for any signs of infection in the incision on exam. Otherwise, no CT findings that might explain patient's fever. [id number] Narrative 05/06/2020 8:50 AM EST EXAMINATION: CT [...] no CT findings that mightexplain patient's fever. [id number] Reyes Voss MD [facility] CT PROCEDURES Final Result * Hepatitis C RNA, Quantitative, PCR (09/09/2019 11:52 AM EDT) Hcv RNA, Quantitative Real Time PCR <15 NOT DETECTED NOT DETECTED IU/mL 09/14/2019 5:38 PM EDT [facility] [facility] Hepatitis C Quantitative PCR Log IU/mL <1.18 NOT DETECTED NOT DETECTED Log IU/mL 09/14/2019 5:38 PM EDT [employer] [facility] [facility] Comment: This test was performed using Real-Time Polymerase Chain Reaction. Reportable Range: 15 IU/mL to 100,000,000 IU/mL (1.18 Log IU/mL to 8.00 Log IU/mL). The analytical performance characteristics of this assay have been determined by [employer]. The modifications have not been cleared or approved by the FDA. This assay has been validated pursuant to the CLIA regulations and is used for clinical purposes. For more information on this test, go to: http://education.[employer]/faq/GAS74q7 (This link is being provided for informational/ educational purposes only.) Blood Structure of peripheral vein / Unknown Venipuncture / Unknown 09/09/2019 11:52 AM EDT 09/09/2019 12:07 PM EDT Narrative [facility] - 09/14/2019 5:38 PM EDT [facility] Received Date: Cyndi Pereira MD LAB BLOOD ORDERAB LES Final Result [facility] [address] [facility] [address] [facility], [place] [address], [employer] [facility] [address] [facility] [address], [place] [address], from Last 3 Months or Most Recently Relevant to Health Maintenance Insurance [facility] [address] [place] [address] [facility] [address] [place] [address] [facility] [employer] [employer] Advance Directives Documents on File Type Date Recorded Patient Drawing Kiln Supervisor Expl anation Health Care Proxy 02/05/2019 [...] Relationship Healthcare Agent Relationship Communication [facility] Health Care Agent Care Teams Claims Service Representative Relationship Specialty Start Date End Date Agustin Mix [address] [place] [id number] PCP - General Internal Medicine 04/15/17
--- OUTSIDE RECORDS SUMMARY | 2025-04-18 09:00 | XMS_ITS | Encounter Summary ---
Author Organization [employer] Address [address] [place] [address] [address] [place] [address] Care Team Providers Care Automation Control Integrator Name Role Phone Agustin Marrero MD Primary Care Provide r Reason for Visit * Reason Comments Med Refill Encounter Details Date Type Department Care Team ([facility] st Contact Info) Description 04/08/2025 Refill [facility] [address] [place], [place] [phone] Agustin Marrero MD [address] [place], [place] [phone] Chronic midline low back pain without sciatica [...] Description 05/31/2025 8:00 AM EST Office Visit [facility] [address] [place] [address] Paco, Catherine [address] [place] [address] 07/14/2025 10:30 AM EDT Clinical Support [facility] [address] [place] [address] Shwetha Collado RN [address] [place] [address] documented as of this encounter Goals Goal Patient Goal Type Associated Problems Recent Progress Patient-Stated? Author Help patients manage their type 2 diabetes Care Plan Help patients manage their type 2 diabetes No Shwetha Collado RN Patient has chronic [...] Plan Patient has chronic kidney disease No Caitlin amaya Jon Patient has chronic kidney disease Care Plan [...] chronic kidney disease No Shwetha Collado RN documented as of this encounter Visit Diagnoses Diagnosis Chronic midline low back pain without sciatica documented in this encounter Additional Health Concerns Active Problems Noted Date [...] 04/05/2025 Patient has chronic kidney disease 04/06/2025 Assessment Noted Time PHQ-9 Depression Total Score: 0 11/02/19 25 9:25 AM EDT documented as of this encounter Care Teams Automation Control Integrator Relationship Specialty Start Date End Date Agustin Marrero MD [address] [place] [phone] PCP - General Internal Medicine 01/25/14 [facility] 06/13/16 documented as of this encounter
--- OUTSIDE RECORDS SUMMARY | 2025-04-18 09:00 | XMS_ITS | Encounter Summary ---
Author Organization [facility] Address [address] [place] [address] Care Team Providers Care Welder Tack Name Role Phone Agustin Mix Primary Care Provider + Encounter Details Date Type Department Care Team (Late st Contact Info) Description 04/02/2020 Orders Only [facility] Interventional Radiology [address] [place] [address] Kathy Bowling MD [address] [place], [place] [phone] Social History Tobacco Use Types Packs/Day Years [...] Info) Description 10/02/2025 12:00 PM EDT Follow-Up [facility] Liver Transplant Services [address] [place], [place] [phone] Dylan Phelps MD [address] [place] [address] documented as of this encounter Visit Diagnoses Not on filedocumented in this encounter Additional Health Concerns Infection Onset Date Last Indicated Resolved Time COVID-19 - Confirmed infection 05/01/2020 05/07/2020 06/01/2020 5:06 PM EST COVID-19 - Suspected infection 05/10/2020 05/10/2020 05/24/2020 10:34 PM EST documented as of this encounter Care Teams Welder Tack Relationship Specialty Start Date End Date Agustin Mix [address] [place] [address] PCP - General Internal Medicine 04/15/17 documented as of this encounter
--- OUTSIDE RECORDS SUMMARY | 2025-04-18 09:00 | XMS_ITS | Encounter Summary ---
Author Organization [employer] Address [address] [place] [address] 7t [place] [address] Care Team Providers Care Car Cleaning Supervisor Name Role Phone Agustin Marrero MD Primary Care Provide r Encounter Details Date Type Department Care Team ([facility] st Contact Info) Description 05/05/2023 Telephone [facility] MEDICINE [address] [place], [place] [phone] Agustin Marrero MD 230 [place], [place] [phone] Social History Tobacco Use Types Packs/Day Years [...] Description 05/31/2025 8:00 AM EST Office Visit [facility] ADULT DENTAL [address] [place] [address] Matty Antonioaris [address] [place] [address] 07/14/2025 10:30 AM EDT Clinical Support [facility]ICINE [address] [place] [address] Shwetha Collado RN 505 [place] [address] documented as of this encounter Visit Diagnoses Not on filedocumented in this encounter Care Teams Car Cleaning Supervisor Relationship Specialty Start Date End Date Agustin Marrero MD [address] [place] [address] PCP - General Internal Medicine 01/25/14 [facility] 06/13/16 documented as of this encounter
--- OUTSIDE RECORDS SUMMARY | 2025-04-18 09:00 | XMS_ITS | Encounter Summary ---
Author Organization [employer] Address [address] [place] [address] 7 [place] [address] Care Team Providers Care Activities Specialist Name Role Phone Agustin Marrero MD Primary Care Provide r Reason for Visit * Reason Onset Date Comments Med Refill 10/16/2022 Encounter Details Date Type Department Care Team ([facility] st Contact Info) Description 10/16/2022 Telephone [facility] MEDICINE [address] [place], [place] [phone] Agustin Marrero MD 230 [place], [place] [phone] Med Refill Social History Tobacco Use Types [...] Description 05/31/2025 8:00 AM EST Office Visit [facility] ADULT DENTAL [address] [place] [address] Catherine Antonio 230 [place] [address] 07/14/2025 10:30 AM EDT Clinical Support [facility] MEDICINE [address] [place] [address] Shwetha Collado, KATALINA 505 [place] [address] documented as of this encounter Visit Diagnoses Not on filedocumented in this encounter Care Teams Activities Specialist Relationship Specialty Start Date End Date Agustin Marrero MD 230 [place] [address] PCP - General Internal Medicine 01/25/14 [facility] 06/13/16 documented as of this encounter
--- OUTSIDE RECORDS SUMMARY | 2025-04-18 09:00 | XMS_ITS | Encounter Summary ---
Author Organization [employer] Address [address] [place] [address] 7 [place] [address] Care Team Providers Care Narrow Gauge Engineer Name Role Phone Agustin Marrero MD Primary Care Provide r Reason for Visit * Reason Onset Date Comments Med Refill 02/27/2025 Encounter Details Date Type Department Care Team ([facility] st Contact Info) Description 02/27/2025 Telephone [facility]ICINE [address] [place], [place] [phone] Agustin Marrero MD 230 [place], [place] [phone] Med Refill Social History Tobacco Use Types [...] White LPN - 02/27/2025 12:50 PM EST RIGGING SUPERVISOR checked on 02/27/25 Ambien to soon for refill last sold on 02/05/25. Novolog pended to PCP. * Telephone Encounter - Jon Chan - 02/27/2025 12:47 PM EST TC from pt requesting medication refill. Medications needing refill : zolpidem (Ambien) 10 MG tablet NovoLOG FLEXPEN 100 UNIT/ML pen To be sent to: [facility]/pharmacy #[id number] [place], [place] - [address] [place] [address] documented in this encounter Plan of Treatment Upcoming Encounters Date Type Department Care Team (Late st Contact Info) Description 05/31/2025 8:00 AM EST Office Visit [facility] ADULT DENTAL [address] [place] [address] Matty Antonioaris [address] [place] [address] 07/14/2025 10:30 AM EDT Clinical Support [facility]IC[facility] [address] [place] [address] Shwetha Collado, KATALINA 505 [place] [address] documented as of this encounter Visit Diagnoses Not on filedocumented in this encounter Additional Health Concerns Assessment Noted Time PHQ-9 Depression Total Score: 0 11/02/19 25 9:25 AM EDT documented as of this encounter Care Teams Narrow Gauge Engineer Relationship Specialty Start Date End Date Agustin Marrero MD 230 [place] [address] PCP - General Internal Medicine 01/25/14 [facility] 06/13/16 documented as of this encounter
--- OUTSIDE RECORDS SUMMARY | 2025-04-18 09:00 | XMS_ITS | Encounter Summary ---
Author Organization [facility] Address [address] [place] [address] Care Team Providers Care Pvc Loader Name Role Phone Agustin Mix Primary Care Provider + Encounter Details Date Type Department Care Team (Late st Contact Info) Description 02/29/2020 Orders Only [facility] Ultrasound [address] [place] [address] Sreedhar Sotelo MD 55 [place], [place] [phone] Social History Tobacco Use Types Packs/Day Years [...] Info) Description 10/02/2025 12:00 PM EDT Follow-Up [facility] Liver Transplant Services [address] [place] [address] Dylan Phelps MD [address] [place] [address] documented as of this encounter Visit Diagnoses Not on filedocumented in this encounter Additional Health Concerns Infection Onset Date Last Indicated Resolved Time COVID-19 - Suspected infection 03/05/2020 03/17/2020 03/17/2020 7:55 PM EST COVID-19 - Confirmed infection 05/01/2020 05/07/2020 06/01/2020 5:06 PM EST COVID-19 - Suspected infection 05/10/2020 05/10/2020 05/24/2020 10:34 PM EST documented as of this encounter Care Teams Pvc Loader Relationship Specialty Start Date End Date Agustin Mix [address] [place] [address] PCP - General Internal Medicine 04/15/17 documented as of this encounter
--- OUTSIDE RECORDS SUMMARY | 2025-04-18 09:00 | XMS_ITS | Encounter Summary ---
Author Organization [employer] Address [address] [place] [address] 7t [place] [address] Care Team Providers Care Paperboard Box Maker Name Role Phone Agustin Marrero MD Primary Care Provide r Reason for Visit * Reason Comments Med Refill Encounter Details Date Type Department Care Team ([facility] st Contact Info) Description 06/04/2023 Refill [facility] MEDICINE [address] [place], [place] [phone] Natasha Nguyen MD 230 [place] [address] Gastroesophageal reflux disease, unspecified whether esophagitis present [...] [facility] ADULT DENTAL [address] [place] [address] Catherine Antonio 230 [place] [address] 07/14/2025 10:30 AM EDT Clinical Support [facility] MEDICINE [address] [place] [address] Shwetha Collado, KATALINA 505 [place] [address] documented as of this encounter Visit Diagnoses Diagnosis Gastroesophageal reflux disease, unspecified whether esophagitis present documented in this encounter Care Teams Paperboard Box Maker Relationship Specialty Start Date End Date Agustin Marrero MD 230 [place] [address] PCP - General Internal Medicine 01/25/14 [facility] 06/13/16 documented as of this encounter
--- OUTSIDE RECORDS SUMMARY | 2025-04-18 09:00 | XMS_ITS | Encounter Summary ---
Author Organization [employer] Address [address] [place] [address] 7 [place] [address] Care Team Providers Care Hose Turner Name Role Phone Agustin Marrero MD Primary Care Provide r Reason for Visit * Reason Onset Date Comments Med Refill 04/10/2025 Encounter Details Date Type Department Care Team ([facility] st Contact Info) Description 04/10/2025 Telephone [facility] MEDICINE 230 [place], [place] [phone] Agustin Marrero MD 230 [place], [place] [phone] Med Refill Social History Tobacco Use Types [...] encounter Miscellaneous Notes * Telephone Encounter - Basim Stubbs - 04/12/2025 10:08 AM EST Tc from pt requesting status message prior . * Telephone Encounter - Ruddy Carrillo - 04/10/2025 3:05 PM EST TC from pt requesting medication refill. Medications needing refill : traMADol (Ultram) 50 MG tablet Pt's states he was given a different doll surgeon from the usual manufacture witch is teva pt wouldonly like that doll surgeon. Pt states he was advice to get rid of his old tramadol To be sent to: [facility]/pharmacy #[id number] documented in this encounter Plan of Treatment Upcoming Encounters Date Type Department Care Team (Late st Contact Info) Description 05/31/2025 8:00 AM EST Office Visit [facility] ADULT DENTAL [address] [place] [address] Matty Antonioaris [address] [place] [address] 07/14/2025 10:30 AM EDT Clinical Support [facility] MEDICINE [address] [place] [address] Shwetha Collado RN [address] [place] [address] [phone] documented as of this encounter Goals Goal [...] has chronic kidney disease No Ruddy Allen documented as of this encounter Visit Diagnoses Not on filedocumented in this encounter Additional Health Concerns Active [...] 04/10/2025 Patient has chronic kidney disease 04/10/2025 Assessment Noted Time PHQ-9 Depression Total Score: 0 11/02/19 25 9:25 AM EDT documented as of this encounter Care Teams Hose Turner Relationship Specialty Start Date End Date Agustin Marrero MD [address] [place] [address] PCP - General Internal Medicine 01/25/14 [facility] 06/13/16 documented as of this encounter
--- OUTSIDE RECORDS SUMMARY | 2025-04-18 09:00 | XMS_ITS | Encounter Summary ---
Author Organization [employer] Address [address] [place] [address] 7 [place] [address] Care Team Providers Care Coil Shaper Name Role Phone Agustin Marrero MD Primary Care Provide r Reason for Visit * Reason Comments Med Refill Encounter Details Date Type Department Care Team ([facility] st Contact Info) Description 02/26/2025 Refill [facility] MEDICINE [address] [place] [address] Natasha Wall MD 230 [place] [address] Primary insomnia Social History Tobacco Use Types [...] your housing situation today? I have faysummer gonslaez 11/01/[address] you li [...] [facility] ADULT DENTAL [address] [place] [address] Paco, Catherine [address] [place] [address] 07/14/2025 10:30 AM EDT Clinical Support [facility] MEDICINE [address] [place] [address] Shwetha Collado, KATALINA 505 [place] [address] documented as of this encounter Visit Diagnoses Diagnosis Primary insomnia Persistent disorder of initiating or maintaining sleep documented in this encounter Additional Health Concerns Assessment Noted Time PHQ-9 Depression Total Score: 0 11/02/19 25 9:25 AM EDT documented as of this encounter Care Teams Coil Shaper Relationship Specialty Start Date End Date Agustin Marrero MD [address] [place] [address] PCP - General Internal Medicine 01/25/14 [facility] 06/13/16 documented as of this encounter
--- OUTSIDE RECORDS SUMMARY | 2025-04-18 09:00 | XMS_ITS | Encounter Summary ---
Author Organization [employer] Address [address] [place] [address] 7 [place] [address] Care Team Providers Care Sanding Machine Operator Or Tender Name Role Phone Agustin Marrero MD Primary Care Provide r Reason for Visit * Reason Onset Date Comments Med Refill 02/27/2025 Encounter Details Date Type Department Care Team ([facility] st Contact Info) Description 02/27/2025 Telephone [facility] MEDICINE 230 [place], [place] [phone] Agustin Marrero MD [address] [place], [place] [phone] Med Refill Social History Tobacco Use Types [...] 50 MG tablet To be sent to: [facility]/pharmacy #[address] [place] [address] - [address] [place] [address] . documented in this encounter Plan of Treatment Upcoming Encounters Date Type Department Care Team (Late st Contact Info) Description 05/31/2025 8:00 AM EST Office Visit [facility] ADULT DENTAL [address] [place] [address] Matty Antonioaris 230 [place] [address] 07/14/2025 10:30 AM EDT Clinical Support [facility] MEDICINE [address] [place] [address] Shwetha Collado, KATALINA 505 [place] [address] documented as of this encounter Visit Diagnoses Not on filedocumented in this encounter Additional Health Concerns Assessment Noted Time PHQ-9 Depression Total Score: 0 11/02/19 25 9:25 AM EDT documented as of this encounter Care Teams Sanding Machine Operator Or Tender Relationship Specialty Start Date End Date Agustin Marrero MD [address] [place] [address] PCP - General Internal Medicine 01/25/14 [facility] 06/13/16 documented as of this encounter
--- OUTSIDE RECORDS SUMMARY | 2025-04-18 09:00 | XMS_ITS | Encounter Summary ---
Author Organization [employer] Address [address] [place] [address] 7[place], [place] [address] Care Team Providers Care Director Machine Name Role Phone Agustin Marrero MD Primary Care Provide r Encounter Details Date Type Department Care Team (Latest Contact Info) Description 09/06/2018 Abstract [facility] CONVERSIONS Dental, Provider, DDS Social History Tobacco [...] Description 05/31/2025 8:00 AM EST Office Visit [facility] ADULT DENTAL 230 [place] [address] Catherine Antonio [address] [place] [address] 07/14/2025 10:30 AM EDT Clinical Support [facility] MEDICINE 230 [place] [address] Shwetha Collado RN [address] [place] [address] documented as of this encounter Visit Diagnoses Not on filedocumented in this encounter Care Teams Director Machine Relationship Specialty Start Date End Date Agustin Marrero MD 230 [place] [address] PCP - General Internal Medicine 01/25/14 [facility] 06/13/16 documented as of this encounter
--- OUTSIDE RECORDS SUMMARY | 2025-04-18 09:00 | XMS_ITS | Encounter Summary ---
Author Organization [employer] Address [address] [place] [address] 7 [place] [address] Care Team Providers Care Health Policy Nurse Name Role Phone Agustin Marrero MD Primary Care Provide r Reason for Visit * Reason Onset Date Comments Med Refill 05/26/2023 Encounter Details Date Type Department Care Team ([facility] st Contact Info) Description 05/26/2023 Telephone [facility] MEDICINE 230 [place], [place] [phone] Agustin Marrero MD 230 [place], [place] [phone] Med Refill Social History Tobacco Use Types [...] LITE test strip To be sent to: [facility]/pharmacy #[address] [place] [address] - [address] [place] [address] documented in this encounter Plan of Treatment Upcoming Encounters Date Type Department Care Team (Late st Contact Info) Description 05/31/2025 8:00 AM EST Office Visit [facility] ADULT DENTAL [address] [place] [address] Catherine Antonio [address] [place] [address] 07/14/2025 10:30 AM EDT Clinical Support [facility] MEDICINE [address] [place] [address] Shwetha Collado RN 505 [place] [address] documented as of this encounter Visit Diagnoses Not on filedocumented in this encounter Care Teams Health Policy Nurse Relationship Specialty Start Date End Date Agustin Marrero MD 230 [place] [address] PCP - General Internal Medicine 01/25/14 [facility] 06/13/16 documented as of this encounter
--- OUTSIDE RECORDS SUMMARY | 2025-04-18 09:00 | XMS_ITS | Encounter Summary ---
Author Organization [employer] Address [address] [place] [address] [address] [address] Care Team Providers Care School Commissioner Name Role Phone Agustin Marrero MD Primary Care Provide r Encounter Details Date Type Department Care Team (Late st Contact Info) Description 08/28/2022 Abstract [facility] MEDICINE [address] [place] [address] [phone] Agustin Marrero MD [address] [place] [address] [phone] Social History Tobacco Use Types Packs/Day Years [...] Description 05/31/2025 8:00 AM EST Office Visit [facility] ADULT DENTAL [address] [place], [place] [phone] Catherine Antonio [address] [place], [place] [phone] 07/14/2025 10:30 AM EDT Clinical Support [facility] MEDICINE [address] [place], [place] [phone] Shwetha Collado, KATALINA 505 [place] [address] documented as of this encounter Procedures Procedure Name Priority Date/Time Associated Diagnosis Comments COLONOSCOPY Routine 06/28/2021 documented in this encounter Results * Colonoscopy (06/28/2021) Colonoscopy Normal Normal 06/28/2021 Shanel Chen - 06/28/2021 9:58 AM EST Recommended 3 year follow up per GI notes ( [facility] ) us Historical Provider [facility] Edited Result - Final documented in this encounter Visit Diagnoses Not on filedocumented in this encounter Care Teams School Commissioner Relationship Specialty Start Date End Date Agustin Marrero MD [address] [place] [address] PCP - General Internal Medicine 01/25/14 [facility] 06/13/16 documented as of this encounter
--- OUTSIDE RECORDS SUMMARY | 2025-04-18 09:00 | XMS_ITS | Encounter Summary ---
Author Organization [facility] Address [address] [place] [address] Care Team Providers Care Savings Teller Name Role Phone Agustin Mix Primary Care Provider + Encounter Details Date Type Department Care Team (Late st Contact Info) Description 12/30/2021 Orders Only [facility] Interventional Radiology [address] [place] [address] Avelino Otero DO [address] [place] [address] Social History Tobacco Use Types Packs/Day Years [...] Info) Description 10/02/2025 12:00 PM EDT Follow-Up [facility] Liver Transplant Services [address] [place] [address] Dylan Phelps MD [address] [place] [address] documented as of this encounter Visit Diagnoses Not on filedocumented in this encounter Care Teams Savings Teller Relationship Specialty Start Date End Date Agustin Mix [address] [place] [address] PCP - General Internal Medicine 04/15/17 documented as of this encounter
--- OUTSIDE RECORDS SUMMARY | 2025-04-18 09:00 | XMS_ITS | Encounter Summary ---
Author Organization [employer] Address [address] [place] [address] 7[place], [place] [address] Care Team Providers Care Manager Philosophy Name Role Phone Agustin Marrero MD Primary Care Provide r Encounter Details Date Type Department Care Team (Latest Contact Info) Description 07/16/2020 Abstract [facility] CONVERSIONS Dental, Provider, DDS Social History [...] Care Team ( st Contact Info) Description 05/31/2025 8:00 AM EST Office Visit [facility] ADULT DENTAL [address] [place] [address] Catherine Antonio [address] [place] [address] 07/14/2025 10:30 AM EDT Clinical Support [facility] MEDICINE [address] [place] [address] Shwetha Collado RN [address] [place] [address] documented as of this encounter Visit Diagnoses Not on filedocumented in this encounter Care Teams Manager Philosophy Relationship Specialty Start Date End Date Agustin Marrero MD [address] [place] [address] PCP - General Internal Medicine 01/25/14 [facility] 06/13/16 documented as of this encounter
--- OUTSIDE RECORDS SUMMARY | 2025-04-18 09:00 | XMS_ITS | Encounter Summary ---
Author Organization [facility] Address [address] [place] [address] Care Team Providers Care Glue Jointer Feeder Name Role Phone Agustin Mix Primary Care Provider + Encounter Details Date Type Department Care Team (Late st Contact Info) Description 03/21/2025 Results Follow-Up [facility] Transplant Department [address] [place] [address] Erika Bonds RN Social History Tobacco Use [...] Info) Description 10/02/2025 12:00 PM EDT Follow-Up [facility] Liver Transplant Services [address] [place], [place] [phone] Dylan Phelps MD [address] [place] [address] documented as of this encounter Visit Diagnoses Not on filedocumented in this encounter Care Teams Glue Jointer Feeder Relationship Specialty Start Date End Date Agsutin Mix [address] [place] [address] PCP - General Internal Medicine 04/15/17 documented as of this encounter
--- OUTSIDE RECORDS SUMMARY | 2025-04-18 09:00 | XMS_ITS | Encounter Summary ---
Author Organization [employer] Address [address] [place] [address] 7 [place] [address] Care Team Providers Care Edge Burnisher Uppers Name Role Phone Agustin Marrero MD Primary Care Provide r Reason for Visit * Reason Onset Date Comments Medication Question 05/11/2024 Encounter Details Date Type Department Care Team ([facility] st Contact Info) Description 05/11/2024 Telephone [facility] [address] [place], [place] [phone] Agustin Marrero MD 230 [place], [place] [phone] Medication Question Social History Tobacco Use Types [...] Dr Richardson's office on 05/11/2024. Note in [facility] EHR: Received call from Edward's [facility] nurse questioning if he still needs to be on Kayexelate 2x weekly. She states he has been out ofit for probably 1 month as he was under the impression the order was discontinued. Labs on 04/25 showK level within normal limits. Instructed her to have him repeat labs in early May to continue to monitor. Called [facility] pharmacy, spoke with Faiza who [...] Richardson's office and received same messageas above. Server Software Engineer advised Jessica to contact Dr Richardson with any questions regarding this med given that they prescribe it. Jessica stated she will be following up with their office in May once the pt gets their labs drawn. Advised her to call [facility] if any other questions or concerns [...] prescriber contact information. Dr. Richardson [facility]. . If any questions for Jessica you can contact pt at [phone]. documented in this encounter Plan of Treatment Upcoming Encounters Date Type Department Care Team (Late st Contact Info) Description 05/31/2025 8:00 AM EST Office Visit [facility] [address] [place] [address] Paco, Catherine [address] [place] [address] 07/14/2025 10:30 AM EDT Clinical Support [facility] [address] [place] [address] Shwetha Collado RN [address] [place] [address] documented as of this encounter Visit Diagnoses Not on filedocumented in this encounter Additional Health Concerns Assessment Noted Time PHQ-9 Depression Total Score: 0 12/03/19 24 10:31 AM EDT documented as of this encounter Care Teams Edge Burnisher Uppers Relationship Specialty Start Date End Date Agustin Marrero MD [address] [place] [address] PCP - General Internal Medicine 01/25/14 [facility] 06/13/16 documented as of this encounter
--- OUTSIDE RECORDS SUMMARY | 2025-04-18 09:00 | XMS_ITS | Encounter Summary ---
Author Organization [employer] Address [address] [place] [address] 7 [place] [address] Care Team Providers Care Oracle Soa Developer Name Role Phone Agustin Marrero MD Primary Care Provide r Reason for Visit * Reason Onset Date Comments Medication Question 04/05/2025 Encounter Details Date Type Department Care Team ([facility] Contact Info) Description 04/05/2025 Telephone [facility] [address] [place], [place] [phone] Agustin Marrero MD [address] [place], [place] [phone] Medication Question Social History Tobacco Use Types [...] encounter Miscellaneous Notes * Telephone Encounter - Elfego Tran - 04/05/2025 3:25 PM EST Tc from pt reporting that he received the tramadol that was not 50mg. Pt returned the medication isrequesting for the 50 mg to be sent.. Any questions contact pt at [phone] documented in this encounter Plan of Treatment Upcoming Encounters Date Type Department Care Team ([facility] st Contact Info) Description 05/31/2025 8:00 AM EST Office Visit [facility] [address] [place] [address] Paco, Catherine [address] [place] [address] 07/14/2025 10:30 AM EDT Clinical Support [facility] [address] [place] [address] Shwetha Collado RN [address] [place] [address] documented as of this encounter Goals Goal [...] Care Plan Patient has chronic kidney disease Elfego Cobb documented as of this encounter Visit Diagnoses [...] 04/04/2025 Patient has chronic kidney disease 04/05/2025 Assessment Noted Time PHQ-9 Depression Total Score: 0 11/02/19 25 9:25 AM EDT documented as of this encounter Care Teams Oracle Soa Developer Relationship Specialty Start Date End Date Agustin Marrero MD [address] [place] [address] PCP - General Internal Medicine 01/25/14 [facility] 06/13/16 documented as of this encounter
--- OUTSIDE RECORDS SUMMARY | 2025-04-18 09:00 | XMS_ITS | Encounter Summary ---
Author Organization [employer] Address [address] [place] [address] 7t [place] [address] Care Team Providers Care Radar Engineer Name Role Phone Agustin Marrero MD Primary Care Provide r Encounter Details Date Type Department Care Team ([facility] st Contact Info) Description 04/17/2025 Telephone [facility] [address] [place] [address] Shwetha Collado RN [address] [place] [address] Social History Tobacco Use Types Packs/Day Years [...] Telephone Encounter - Shwetha Collado RN - 04/17/2025 1:51 PM EST TC back to pt, no answer. Spoke with pt on 04/12/25 regarding this message. Pt was advised of the message from PCP to go to [facility] if needed and that there is no equivalent of the medication. documented in this encounter Plan of Treatment Upcoming Encounters Date Type Department Care Team (Late st Contact Info) Description 05/31/2025 8:00 AM EST Office Visit [facility] ADULT DENTAL [address] [place] [address] Paco, Catherine [address] [place] [address] 07/14/2025 10:30 AM EDT Clinical Support [facility] [address] [place] [address] Shwetha Collado RN [address] [place] [address] documented as of this encounter Goals Goal [...] 04/17/2025 Patient has chronic kidney disease 04/17/2025 Assessment Noted Time PHQ-9 Depression Total Score: 0 11/02/19 25 9:25 AM EDT documented as of this encounter Care Teams Radar Engineer Relationship Specialty Start Date End Date Agustin Marrero MD [address] [place] [address] PCP - General Internal Medicine 01/25/14 [facility] 06/13/16 documented as of this encounter
--- OUTSIDE RECORDS SUMMARY | 2025-04-18 09:00 | XMS_ITS | Encounter Summary ---
Author Organization [employer] Address [address] [place] [address] 7 [place] [address] Care Team Providers Care Rest Room Attendant Name Role Phone Agustin Marrero MD Primary Care Provide r Reason for Visit * Reason Onset Date Comments Appointment Request 03/29/2025 Encounter Details Date Type Department Care Team ([facility] st Contact Info) Description 03/29/2025 Telephone [facility] [address] [place], [place] [phone] Agustin Marrero MD 230 [place], [place] [phone] Appointment Request Social History Tobacco Use Types Packs/Day Years [...] * Telephone Encounter - Jon Chan - 03/29/2025 11:14 AM EST Tc from pt requesting to schedule a appointment Contact pt at [phone] documented in this encounter Plan of Treatment Upcoming Encounters Date Type Department Care Team ([facility] st Contact Info) Description 05/31/2025 8:00 AM EST Office Visit [facility] [address] [place] [address] Matty Antonioaris [address] [place] [address] 07/14/2025 10:30 AM EDT Clinical Support [facility] [address] [place] [address] Swhetha Collado RN [address] [place] [address] documented as of this encounter Goals Goal [...] has chronic kidney disease No Xuan Shafer documented as of this encounter Visit Diagnoses [...] 03/29/2025 Patient has chronic kidney disease 03/29/2025 Assessment Noted Time PHQ-9 Depression Total Score: 0 11/02/19 25 9:25 AM EDT documented as of this encounter Care Teams Rest Room Attendant Relationship Specialty Start Date End Date Agustin Marrero MD [address] [place] [address] PCP - General Internal Medicine 01/25/14 [facility] 06/13/16 documented as of this encounter
--- OUTSIDE RECORDS SUMMARY | 2025-04-18 09:00 | XMS_ITS | Encounter Summary ---
Author Organization [employer] Address [address] [place] [address] 7 [place] [address] Care Team Providers Care Aba Therapist Name Role Phone Agustin Marrero MD Primary Care Provide r Reason for Visit * Reason Comments Med Refill Encounter Details Date Type Department Care Team (Late Contact Info) Description 09/04/2022 Refill [facility] 230 [place], [place] [phone] Agustin Marrero MD 230 [place] [address] Social History Tobacco Use Types Packs/Day Years [...] Department Care Team (Late Contact Info) Description 05/31/2025 8:00 AM EST Office Visit [facility]ULT [facility] [address] [place] [address] Catherine Antonio [address] [place] [address] 07/14/2025 10:30 AM EDT Clinical Support [facility] [address] [place] [address] Shwetha Collado, RN [address] [place] [address] documented as of this encounter Visit Diagnoses Not on filedocumented in this encounter Care Teams Aba Therapist Relationship Specialty Start Date End Date Agustin Marrero MD 230 [place] [address] PCP - General Internal Medicine 01/25/14 [facility] 06/13/16 documented as of this encounter
--- OUTSIDE RECORDS SUMMARY | 2025-04-18 09:00 | XMS_ITS | Data Portability ---
Author Organization [place] [employer] [facility] Main Office Address [address] [facility] [place] [address] Care Team Providers Care Mobile Home Installer Name Role Phone MARICRUZ NEWMAN - 2ND FLOOR OTHER Assessment Encounter Date Assessment Date Assessment LastModified by Organization Details LastModified Time 02/25/2019 02/25/2019 02/24/19 WBC 3.7, Hgb 7.5, Hct 22.4, Plt 59, Na 134, K 4.5, BUN 10, Sewage Treatment Plant Operator 0.54, calc 7.8, tot prot 5.1, AST 69, ALT 33, A1c 4.2 02/23/19 WBC 3.4, Hgb 7.5, Hct 22.4, Plt 59, Na 128, K 4.3, BUN 11, Sewage Treatment Plant Operator 0.56, silvia 7.6, tot prot 4.8, tot bili 4.1, AST 65, ALT 25 in hospital [facility] Not available 02/25/2019 10:15:55 Plan of [...] Gastroesop hageal reflux disease without esophagiti s 740663375 Active 2018 FIDEL MAURO [address] [facility], [address], [place], [address], [facility] 9 08:26:33 Cirrhosis of liver 01978019 Active 2018 on transplant list FIDEL MAURO [address] [facility], [address], [place], [address], [facility] 9 08:36:16 Diabetes mellitus 75374196 Active 2018 CACHORRO FIDEL CARLSON [address] [facility], [address], [place], [address], [facility] 9 08:28:07 Hyponatrem ia 26178866 Active 2018 CACHORROFIDEL LEON [address] [facility], [address], [place], [address], [facility] 9 08:28:22 Bacteremia 6110805 Active 2018 FIDEL MAURO [address] [place] [address], [address], [place], [address], [facility] 9 08:29:07 Bacterial peritoniti s 491653492 Active 2018 FIDEL MAURO [address] [facility], [facility] [address], [place], [address], [facility] 9 09:07:42 Edema of lower extremity 384159402 Active 2018 FIDEL MAURO [address] [facility], [address], [place], [address], [facility] 9 09:15:49 Abscess of lower leg 925518012 Active 2018 Brittaney Mcelroy MD [address] [place] [address], [place] [address], [place], [address], [facility] 9 07:15:49 Anemia 404742253 Active 2018 Brittaney Mcelroy MD [address] [place] [address], [facility] [address], [place], [address], [facility] 9 07:16:47 Problem Notes None recorded. Medical Equipment None Reported. Allergies No known drug allergies Medications Not known to be on any medication Vitals Date Recorded Body weight Heart rate Respiratory rate Body temperature Oxygen saturation Systolic And Diastolic Provider Name and Address Organization Details Last Updated DateTime 9 71562.5 1 g 70 /min 20 /min 96.9 [degF] 98 % 128/74 mm[Hg] FIDEL MAURO [address] [facility], [address], [place], [address], [facility] 9 11:06:12 Date Recorded Systolic And Diastolic Provider Name and Address Organization Details Last Updated DateTime 03/02/2019 120/68 mm[Hg] Brittaney Mcelroy MD [address] [facility], [address], [place], [address], [facility] 03/02/2019 06:55:54 Social History Question Answer Notes LastModified by [employer] Details LastModified Time Tobacco Smoking Status Former Smoker Not Available [facility] 02/14/2020 03:13:21 Do You Have An Advance Directive? Yes FULL CODE-undecide d About Dialysis And Nutrition-may Use Hydration [id number] Information not available 02/14/2020 How Many Years Have You Consumed Alcohol? 30 [id number] Information not available 02/14/2020 How Much Tobacco Do You Chew? None [id number] Information not available 02/14/2020 Do You Have A Medical Power Of Infectious Waste Technician? Yes Hcp On File [id number] Information not available 02/14/2020 What Was The Date Of Your Most Recent Tobacco Screening? 02/25/2019 [id number] Information not available 02/14/2020 How Much Tobacco Do You Smoke? 1 PPD [id number] Information not available 02/14/2020 On What Date Was Tobacco Cessation Counseling Provided? 02/25/2019 NA [id number] Information not available 02/14/2020 How Many Years Have You Smoked Tobacco? 30 [id number] Information not available 02/14/2020 Sex: Unknown Functional Status Question Answer Note LastModified by [employer] Details LastModified Time What is your level of alcohol consumption? None quit drinking in 2016 [id number] Information not available 02/14/2020 Do you or have you ever used smokeless tobacco? Never used smokeless tobacco [id number] Information not available 02/14/2020 Do you or have you ever used e-cigarettes or vape? Never used electronic cigarettes [id number] Information not available 02/14/2020 Mental Status None recorded. Family History Nothing Reported. Medical History No medical history recorded. Past Encounters Encounter ID Performer Location Encounter Start Date Encounter Closed Date Diagnosis/Indication Diagnosis SNOMED-CT Code Diagnosis ICD10 Code Diagnosis IMO Codes Diagnosis Note [id number] FIDEL MAURO [address] [address] 02/25/2019 08:25:36 03/04/2019 13:41:33 Bacteremia 0203859 R78.81 completed treatmentm onitor dsg changes qdwet to dryareas clean Hyponatremia 29057085 E8 7.1 resolvedmo nitor labs Cirrhosis of liver K70.31 lactulose 30 mls tid 3-4 stools a dayspirono lactone 50 mg qdmonitoro n transplant listfollow s with [facility] Diabetes mellitus 273788 09 E11.9 lantus 8 units q [id number] here is 4.2monitor for s/s of hypo/hyper glycemia Gastroesop hageal reflux disease without esophagitis 395661965 K21.9 omeprazole 20 mg qdmonitor for symptoms Bacterial peritonitis 19 7373303 K65.2 recurrentc ipro 500 mg qd prophymoni tor for symptoms Edema of l ower extremity 031713371 R60.0 lasix 20 mg qdmonitor edema [id number] Brittaney Mcelroy MD [address] [address] 03/02/2019 06:54:11 03/04/2019 13:42:54 Cirrhosis of liver 20178775 K70.31 fu GIlactulos e 20 gm tidfurosem concetta 20 mg dailymagne sium 400 mg dailyspiro nolactone 25 mg dailyon transplant list [facility] Diabetes mellitus 406380 09 E11.9 Humalog per sliding scaleLantu s 8U dailywill monitor Gastroesop hageal reflux disease without esophagitis 756811846 K21.9 omeprazole 20 mg dailywill monitor Anemia 356363115 D50.8 suspect multifacto rial including GI blood loss, chronic diseaseawa it B12, folateiron 325 mg bidwill continue to monitor Bacteremia 6737351 R78.8 1 antibiotic s completedd aily dressing changes legfu surgery Bacterial peritonitis 19 8045395 K65.2 history of in pastCipro 500 mg daily for prophylaxi sfu GI [facility] Health Concerns Section Related Observation LastModified by Organization Detai ls LastModified Time None Recorded Concern Status LastModified by Organization Details LastModified Time None Recorded Advance Directives Directive Y: FULL CODE-undecided about dialysis and nutrition-may use hydration Payers Insurance Date Sequence Insurance Name Policy Number Policy Banks Covered Member ID Banks Member ID Guarantor Name 03/04/2019 2 [place] [facility] Edward Danay [id number] Edward Jon 03/04/2019 1 [facility] - DOS PRIOR TO 2022 - DUAL ELIGIBLE (MEDICARE REPLACEMENT/AD VANTAGE - HMO) Edward Jon [id number] Edward Jon Notes Date Note Type Note Provider Name and Address Organization Details Recorded Time 02/25/2019 text/html A 54 year old male being seen for a initial intake note. Patient was at [facility] for fever and lower extremity edema/pain. He was transferred to [facility] for bacteremia. He grew ESBL E. [...] DM, hyponatremia and SBP. FIDEL MAURO [address] [facility], [address], [place], [address], [facility] 02/25/2019 11:10:47 03/02/2019 text/html ROS as noted in the HPI This 54 year old male was admitted to [facility] 02/23/19 for continued care and rehab after hospitalization for fever and lower extremity edema/pain. Patient has history of alcoholic liver disease and cirrhosis and is on transplant list. He was initially admitted to [facility], then transferred to [facility] for bacteremia. His blood cultures grew ESBL E. Coli and he started on antibiotics, initially Zosyn which was changed to meropenem, then ertapenem to complete a 10 day course. Patient has history recurrent bacteremia in past few months. During most recent prior [facility] admission, it was suspected that likely source of bacteremia was biliary. Patient had worsened R>L leg edema and US was negative at [facility] for DVT. CT of right lower [...] hyponatremia. MOLST: full code Brittaney Mcelroy MD [address] [place] [address], [address], [place], [address], [facility] [facility] 03/02/2019 08:11:36
--- OUTSIDE RECORDS SUMMARY | 2025-04-18 09:00 | XMS_ITS | Encounter Summary ---
Author Organization [employer] Address [address] [place] [address] 7 [place] [address] Care Team Providers Care Movement Assembler Name Role Phone Agustin Marrero MD Primary Care Provide r Reason for Visit * Reason Onset Date Comments Medication Question 04/17/2025 Encounter Details Date Type Department Care Team ([facility] Contact Info) Description 04/17/2025 Telephone [facility] [address] [place], [place] [phone] Agustin Marrero MD 230 [place], [place] [phone] Medication Question Social History Tobacco Use Types [...] encounter Miscellaneous Notes * Telephone Encounter - Travis Grimm - 04/17/2025 8:52 AM EST TC from patient: Patient reports [facility]ensed tramadol (Ultram) 50 mg tablets that are a skinny tablet. Patient states this specific brand causes an upset stomach. Patient reports he is accustomed to receiving a different brand, which he tolerates better Pt wanting a new script since her cannot return . documented in this encounter Plan of Treatment Upcoming Encounters Date Type Department Care Team ([facility] st Contact Info) Description 05/31/2025 8:00 AM EST Office Visit [facility] ADULT DENTAL [address] [place] [address] Matty Antonioaris [address] [place] [address] 07/14/2025 10:30 AM EDT Clinical Support [facility] MEDICINE [address] [place] [address] Shwetha Colaldo RN 505 [place] [address] documented as of this encounter Goals Goal [...] documented as of this encounter Care Teams Movement Assembler Relationship Specialty Start Date End Date Agustin Marrero MD [address] [place] [address] PCP - General Internal Medicine 01/25/14 [facility] 06/13/16 documented as of this encounter
--- OUTSIDE RECORDS SUMMARY | 2025-04-18 09:00 | XMS_ITS | Encounter Summary ---
Author Organization [employer] Address [address] [place] [address] 7t [place] [address] Care Team Providers Care Ornament Stapler Name Role Phone Agustin Marrero MD Primary Care Provide r Reason for Visit * Reason Comments Med Refill Encounter Details Date Type Department Care Team ([facility] st Contact Info) Description 05/13/2024 Refill [facility] MED[facility]INE [address] [place], [place] [phone] Agustin Marrero MD [address] [place] [address] Social History Tobacco Use Types Packs/Day Years [...] Description 05/31/2025 8:00 AM EST Office Visit [facility] ADULT DENTAL [address] [place] [address] Paco, Catherine [address] [place] [address] 07/14/2025 10:30 AM EDT Clinical Support [facility] MEDICINE [address] [place] [address] Shwetha Collado, RN [address] [place] [address] documented as of this encounter Visit Diagnoses Not on filedocumented in this encounter Additional Health Concerns Assessment Noted Time PHQ-9 Depression Total Score: 0 12/03/19 24 10:31 AM EDT documented as of this encounter Care Teams Ornament Stapler Relationship Specialty Start Date End Date Agustin Marrero MD 230 [place] [address] PCP - General Internal Medicine 01/25/14 [facility] 06/13/16 documented as of this encounter
--- OUTSIDE RECORDS SUMMARY | 2025-04-18 09:00 | XMS_ITS | Encounter Summary ---
Author Organization [employer] Address [address] [place] [address] [place] [address] Care Team Providers Care Stenographer Secretary Name Role Phone Agustin Marrero MD Primary Care Provide r Reason for Visit * Reason Onset Date Comments Med Refill 12/15/2022 Encounter Details Date Type Department Care Team ([facility] st Contact Info) Description 12/15/2022 Telephone [facility] [address] [place], [place] [phone] Agustin Marrero MD [address] [place] [address] Med Refill Social History Tobacco Use Types [...] Description 05/31/2025 8:00 AM EST Office Visit [facility] ADULT DENTAL [address] [place] [address] Paco, Catherine [address] [place] [address] 07/14/2025 10:30 AM EDT Clinical Support [facility] [address] [place] [address] Shwetha Collado RN 505 [place] [address] documented as of this encounter Visit Diagnoses Not on filedocumented in this encounter Care Teams Stenographer Secretary Relationship Specialty Start Date End Date Agustin Marrero MD [address] [place] [address] PCP - General Internal Medicine 01/25/14 [facility] 06/13/16 documented as of this encounter
--- OUTSIDE RECORDS SUMMARY | 2025-04-18 09:00 | XMS_ITS | Encounter Summary ---
Author Organization [employer] Address [address] [place] [address] 7 [place] [address] Care Team Providers Care Last Sawyer Name Role Phone Agustin Marrero MD Primary Care Provide r Reason for Visit * Reason Onset Date Comments Error 05/12/2023 Encounter Details Date Type Department Care Team ([facility] st Contact Info) Description 05/12/2023 Telephone [facility] MEDICINE [address] [place], [place] [phone] Agustin Marrero MD [address] [place], [place] [phone] Error Social History Tobacco Use Types Packs/Day [...] Description 05/31/2025 8:00 AM EST Office Visit [facility] ADULT DENTAL [address] [place] [address] Catherine Antonio [address] [place] [address] 07/14/2025 10:30 AM EDT Clinical Support [facility] MEDICINE [address] [place] [address] Shwetha Collado, KATALINA [address] [place] [address] documented as of this encounter Visit Diagnoses Not on filedocumented in this encounter Care Teams Last Sawyer Relationship Specialty Start Date End Date Agustin Marrero MD [address] [place] [address] PCP - General Internal Medicine 01/25/14 [facility] 06/13/16 documented as of this encounter
[2025-04-18 09:20] LABS: Alanine Aminotransferase 64 U/L (0-40); Albumin Level 4.5 g/dL (3.5-5.0); Alkaline Phosphatase 142 U/L (39-117); Anion Gap 12 (12-20); Aspartate Amino Transferase 54 U/L (5-37); Blood Urea Nitrogen 20 mg/dL (9-16); Calcium 9.2 mg/dL (8.4-10.2); Carbon Dioxide 24 mmol/L (22-29); Chloride 106 mmol/L (96-108); Estimated Glomerular Filt Rate > 60; Magnesium 1.8 mg/dL (1.6-2.6); Potassium 4.2 mmol/L (3.3-5.1); Sodium 138 mmol/L (135-145); Total Protein 7.2 g/dL (6.5-8.0)
[2025-04-19 06:13] LABS: Tacrolimus Prograf 5.2 mcg/L
== END 2025-04-18 07:18 ==
LOC: HO.LABR 07:17
PROVIDERS: PCP Internal Medicine; Visit Provider Internal Medicine
DX: Z85.05 Personal history of malignant neoplasm of liver (principal); Z94.4 Liver transplant status; Z79.620 Long term (current) use of immunosuppressive biologic; Z79.899 Other long term (current) drug therapy
CPT/HCPCS: 36415; 80053; 80197; 82105; 83735; 85025